=== PATIENT | female | born 1945 | race Caucasian/White ===

== ENCOUNTER → 2020-07-12 10:38 | Outpatient (POV) | payer SELFPAY | PROVIDERS: Visit Provider Audiologist | DX: Z00.00 Encounter for general adult medical examination without abnormal findings (principal) ==

== ENCOUNTER 2023-07-07 15:47 | Emergency (ER) | payer MEDICARE, SELFPAY ==
[2023-07-07] VITALS (7 sets, daily range): BP systolic 113–138; BP diastolic 62–79; PULSE 77–102; RESP 16–20; TEMP 36.4–36.9; O2SAT 93–100; BMI 25.4
--- NOTE | 2023-07-07 16:23 | XR_ITS ---
PROCEDURE INFORMATION: Exam: XR Right Foot Exam date and time: 07/07/2023 4:33 PM Age: 77 years old Clinical indication: Other: Redness/warmth; Additional info: Redness/warmth/cant bear weight, h/o embedded glass TECHNIQUE: Imaging protocol: Radiologic exam of the right foot. Views: 3 or more views. COMPARISON: No relevant prior studies available. FINDINGS: Bones/joints: No definitive osseous erosive lesions. No visible fracture or dislocation. Small calcaneal spur noted. Soft tissues: There is mild soft tissue swelling along the plantar soft tissues of the forefoot. No radiopaque foreign body. IMPRESSION: 1. No visible fracture or dislocation. No definitive osseous erosive lesions. 2. No radiopaque foreign body. Soft tissue swelling along the plantar soft tissues of the forefoot.
[2023-07-07] MEDS: ACETAMINOPHEN 500MG TAB 1000 MG PO (16:42)
[2023-07-07] MEDS: OXYCODONE 5MG IMMEDIATE RELEASE TABLET 5 MG PO (16:42)
[2023-07-07] MEDS: KETOROLAC 30MG/ML VIAL 15 MG IV (16:42)
--- NOTE | 2023-07-07 16:54 | ED_ITS ---
Discharge Plan Disposition Patient Disposition: Home, Self-Care Condition: Good Prescriptions Prescriptions: New naproxen 500 mg tablet 500 mg PO BID PRN (Reason: pain) Qty: 20 0RF sulfamethoxazole-trimethoprim [Bactrim DS] 800-160 mg tablet 1 tab PO BID 14 Days Qty: 28 0RF cephalexin 500 mg capsule 500 mg PO BID 14 Days Qty: 28 0RF Referrals Follow up/Referrals: Mann Irene [Primary Care Provider] - See instructions Elle Ortega DPM [Staff Physician] - See instructions Activity Restrictions/Add. Instructions Additional Instructions/Restrictions: You were evaluated in the emergency department today. At this time, we feel that your symptoms are likely related to cellulitis or infection of your right foot. It is very important that you take the antibiotics prescribed to you. Please follow-up very closely with your primary care provider. I recommend being seen over the next 3 to 5 days. If you continue to have foot pain, I am providing you with information for podiatry who can further assess you. Return to the emergency department for new or worsening symptoms. Clinical Impressions Clinical Impression: Cellulitis of foot, right Instructions Patient Instructions: DI for Cellulitis -- Adult, DI for Foot Pain Discharge ED Provider: Julianna Jarrell General Adult HPI General Chief complaint: Extremity Problem,Nontraumatic Stated complaint: Rt foot swollen Time Seen by Provider: 07/07/23 16:13 Mode of Arrival: Wheelchair Source of Information: Patient Limitations: No Limitations Description of Symptoms (Recalled from ER Triage Doc. by RN): pt c/o R foot pain, edema and errythema. pt states the pain is sharp and 10/10. pt reports she stepped on glass awhile ago. the skin is intact with palplable pedal pulses. pt needs a tetnus vaccine. History of Present Illness HPI narrative: This patient is a 77-year-old female with a history of osteoporosis, hype rtension, and hyperlipidemia presenting to the emergency department for evaluation with concern for atraumatic right foot pain. Patient reports that she woke up Thursday morning and noted that she could not bear weight on her right foot secondary to pain. She also noted redness and swelling. She went to an outpatient clinic yesterday and was told that everything was normal, so she was told she would be getting a walking boot but did not. She denies experiencing like this in the past. She denies any history of gout or septic arthritis in the past. She denies any fevers, chills, calf pain/swelling, or other concerns. No recent wounds, however she does note that several months to a year ago she had stepped on some pieces of glass and had to be get out of her foot. Related Data Previous Rx's Medication Instructions Recorded cephalexin 500 mg capsule 500 mg PO BID 14 days #28 caps 07/07/23 naproxen 500 mg tablet 500 mg PO BID PRN pain #20 tabs 07/07/23 sulfamethoxazole 800 1 tab PO BID 14 days #28 tabs 07/07/23 mg-trimethoprim 160 mg tablet (Bactrim DS) Allergies Allergy/AdvReac Type Severity Reaction Status Date / Time celecoxib [From Celebrex] Allergy Verified 07/07/23 16:21 [facility] Disclaimer: The information contained in this section may have been updated after the patient was seen, as this information can be updated by other users. Social History Smoking Status: Never smoker alcohol intake: never current occupational status: retired Travel in the last 8 weeks: None ROS Obtained: Yes All systems reviewed & no additional complaints except as documented Physical Exam General General appearance: alert and in no apparent distress Head Head exam: atraumatic and normocephalic Eye Eye exam: Present normal appearance, PERRL and EOMI ENT ENT exam: Present normal exam, normal oropharynx, mucous membranes moist and normal external ear exam Neck Neck exam: Present normal inspection, full ROM and trachea midline; Absent ten derness Chest Chest inspection: Present normal inspection and symmetric chest wall rise; Absent tenderness Respiratory Respiratory exam: Present normal lung sounds bilaterally; Absent respiratory distress, wheezes, stridor or accessory muscle use Cardiovascular Cardiovascular exam: Present regular rate and normal rhythm Abdominal Exam Abdominal exam: Present soft; Absent distention, tenderness or guarding Extremities Exam Extremities exam: Present tenderness, normal capillary refill, edema (Isolated pedal edema to the right foot) and other; Absent calf tenderness Expanded Lower Extremity Exam Right: Top foot image: 1. Redness and tenderness with surrounding edema. DP pulses 2+. Intact capillary refill and sensation distally. Neurovascular/Tendon exam: Present normal capillary refill and normal fine/light touch; Absent pulse deficit, sensory deficit, extremity cold to touch, pallor, foot drop or peroneal nerve deficit Back Exam Back exam: Present normal inspection and full ROM; Absent tenderness Neurological Exam Neurological exam: Present alert, oriented X3, CN II-XII intact and normal gait; Absent motor sensory deficit Psychiatric Psychiatric exam: Present normal affect and normal mood Skin Skin exam: Present warm and dry Medical Decision Making Medical Records Medical records reviewed: Yes I reviewed the patient's medical records. Osei Inquiry Pt receiving controlled substance: No Vital Signs: 07/07/23 16:13 07/07/23 16:07 07/07/23 16:30 Temperature 98.5 F Temperature Source Oral Pulse Rate 77 98 H Pulse Rate [Left] 102 H Respiratory Rate 16 Blood Pressure 113/65 138/79 Blood Pressure [Right Arm] 113/65 Blood Pressure Mean [Right Arm] 81 Blood Pressure Source [Right Arm] Automatic Cuff Blood Pressure Position [Right Arm] Sitting 02 Sat by Pulse Oximetry 100 93 L 96 Oxygen Delivery Method Room Air 07/07/23 17:59 07/07/23 17:28 07/07/23 17:30 Temperature 97.6 F Temperature Source Pulse Rate 77 81 84 Pulse Rate [Left] Respiratory Rate 20 Blood Pressure 122/74 114/64 121/74 Blood Pressure [Right Arm] Blood Pressure Mean [Right Arm] Blood Pressure Source [Right Arm] Blood Pressure Position [Right Arm] 02 Sat by Pulse Oximetry 97 96 Oxygen Delivery Method Room Air Room Air Room Air 07/07/23 17:41 Temperature Temperature Source Pulse Rate 95 H Pulse Rate [Left] Respiratory Rate Blood Pressure 115/62 Blood Pressure [Right Arm] Blood Pressure Mean [Right Arm] Blood Pressure Source [Right Arm] Blood Pressure Position [Right Arm] 02 Sat by Pulse Oximetry 97 Oxygen Delivery Method Room Air Lab Data Lab results reviewed: Yes I reviewed the patient's lab results. Lab Results 07/07/23 16:40: WBC 8.9, RBC 4.19 L, Hgb 12.0 L, Hct 37.0, MCV 88.3, MCH 28.7, MCHC 32.5, RDW 13.9, Plt Count 399, MPV 8.0, Neut % (Auto) 66.6, Lymph % (Auto) 24.1, [place] % (Auto) 7.4, Eos % (Auto) 1.5, Baso % (Auto) 0.4, Neut # (Auto) 5.9, Lymph # (Auto) 2.2, [place] # (Auto) 0.7, Eos # (Auto) 0.1, Baso # (Auto) 0.0, ESR 55 H, Sodium 136, Potassium 3.6, Chloride 100, Carbon Dioxide 32 H, Anion Gap 7.6, BUN 18 H, Creatinine 0.60, Estimated Creat Clear 45, Estimated GFR 97, Est GFR ( Amer) 118, Glucose 102 H, Uric Acid 5.0, Calcium 9.1, Total Bilirubin 0.8, AST 24, ALT 15, Alkaline Phosphatase 113, C-Reactive Protein 102.6 H, Total Protein 7.3, Albumin 3.7, Globulin 3.6 H, Albumin/Globulin Ratio 1.0 L 07/07/23 16:40 07/07/23 16:40 Orders (Tests/Meds): ED MEDICATIONS Discontinued Medications Generic Name Dose Route Start Last Admin Trade Name Freq PRN Reason Stop Dose Admin Acetaminophen 1,000 mg 07/07/23 16:28 07/07/23 16:42 Acetaminophen 500mg Tab PO 07/07/23 16:29 1,000 mg ONCE ONE Administration Ketorolac Tromethamine 15 mg 07/07/23 16:28 07/07/23 16:42 Ketorolac 30mg/Ml Vial IV 07/07/23 16:29 15 mg ONCE ONE Administration Oxycodone HCl 5 mg 07/07/23 16:29 07/07/23 16:42 Oxycodone 5mg Immediate Release Tablet PO 07/07/23 16:30 5 mg ONCE ONE Administration Sodium Chloride 10 ml 07/07/23 16:46 Sodium Chloride 0.9% 10ml Flush Syringe IV 08/06/23 16:45 NEEDED PRN Maintain IV Site ORDERS Category Date Time Status XR foot RT min 3V Stat Exams 07/07/23 16:23 Completed C-Reactive Protein Stat Lab 07/07/23 16:40 Completed Complete Blood Count Auto Diff Stat Lab 07/07/23 16:40 Completed Comprehensive Metabolic Panel Stat Lab 07/07/23 16:40 Completed Erythrocyte Sedimentation Rate Stat Lab 07/07/23 16:40 Completed Uric Acid Stat Lab 07/07/23 16:40 Completed Medical Decision Narrative: In summary, this patient is a 77-year-old female presenting to the Emergency Department for evaluation of right foot pain and swelling is atraumatic. Differential diagnoses considered include but are not limited to gouty arthritis, septic arthritis, cellulitis, venous insufficiency, arterial insufficiency, fracture. Ruling out the most morbid conditions drove assessment. On exam, the patient is well-appearing. She has isolated pedal edema to the right foot as well as redness, tenderness, and pain. The erythema is well- demarcated and isolated to her midfoot. It seems to be worse at the midfoot. She has good pulses and intact capillary refill and sensation. No calf pain/tenderness. Workup included CBC, CMP, ESR, CRP, uric acid, and x-rays of the right foot.. I independently interpreted x-ray prior to the radiologist read and noted soft tissue swelling without acute bony abnormality such as fracture. Please see their read for final interpretation. Labs were obtained that demonstrated elevated ESR and CRP. No significant leukocytosis. On reassessment, patient had good improvement after administration of maintenance above. Given that she has well-demarcated erythema without obvious involvement of a large joint as well as intact range of motion, I doubt septic arthritis. I feel she likely has a cellulitis. No obvious foreign body on the x-ray. No large open wounds on clinical exam. She is neurovascularly intact. At this time, I feel discharge with treatment for cellulitis is most appropriate. She is given prescriptions for Bactrim and Keflex, instructions for close a patient follow-up with her primary care provider, and I also gave her instructions for potential follow-up with podiatry if she continues to have issues. The redness on her foot was marked, and she was given a boot to use for comfort for walking. Patient expressed understanding and agreement to the strict return precautions. She was discharged in stable condition after all questions were answered. Critical Care Critical Care Time Critical Care Time: No
[2023-07-07 17:12] LABS: Alanine Aminotransferase 15 U/L (12-78); Albumin Level 3.7 g/dl (3.5-5.0); Alkaline Phosphatase 113 U/L (38-126); Anion Gap 7.6 mEq/L (5-15); Aspartate Amino Transferase 24 U/L (14-36); Bilirubin,Total 0.8 mg/dl (0.2-1.3); Blood Urea Nitrogen 18 mg/dl (7-17); Calcium 9.1 mg/dl (8.4-10.2); Carbon Dioxide 32 mmol/L (22.0-30.0); Chloride 100 mmol/L (98-107); Creatinine Clearance Estimated 45 mL/min (50-200); Estimated Glomerular Filt Rate 97 ml/min (>60); GFR (African American) 118 ML/MIN (>60); Globulin 3.6 g/dL (1.3-3.2); Glucose 102 mg/dl (74-100); Potassium 3.6 mmoL/L (3.5-5.1); Sodium 136 mmol/L (136-145); Total Protein,Serum 7.3 g/dl (6.3-8.2)
[2023-07-07 17:18] LABS: Basophils % 0.4 % (0.1-2.0); Eosinophils # 0.1 K/mm3 (0.0-0.4); Eosinophils % 1.5 % (0.1-12.0); Lymphocytes # 2.2 K/mm3 (0.7-4.5); Lymphocytes % 24.1 % (10-50); Mean Corpuscular HGB Conc 32.5 g/dL (31.8-35.4); Mean Corpuscular Hemoglobin 28.7 pg (27.0-31.2); Mean Corpuscular Volume 88.3 fl (81-99); Monocytes # 0.7 K/mm3 (0.1-1.0); Monocytes % 7.4 % (1.7-9.3); Neutrophils # 5.9 K/mm3 (1.8-7.8); Neutrophils % 66.6 % (37.0-80.0); Platelet Count 399 K/mm3 (142-424); Red Blood Count 4.19 M/mm3 (4.20-5.40); Red Cell Distribution Width 13.9 % (11.5-17.5); White Blood Count 8.9 K/mm3 (4.8-10.8)
[2023-07-07 17:33] LABS: C-Reactive Protein 102.6 mg/L (0-4)
--- NOTE | 2023-07-07 17:48 | PC.NURSE ---
Dr. Jarrell at bedside to review results
[2023-07-07 17:55] LABS: Erythrocyte Sedimentation Rate 55 mm/hr (0-30)
== END 2023-07-07 18:23 | disposition home or self-care (01) ==
PROVIDERS: Emergency Provider Emergency Medicine; PCP Pediatrics
DX: L03.115 Cellulitis of right lower limb (principal); R60.9 Edema, unspecified; M81.8 Other osteoporosis without current pathological fracture; I10 Essential (primary) hypertension; E78.5 Hyperlipidemia, unspecified
CPT/HCPCS: 73630; 80053; 84550; 85025; 85651; 86140; 96374; 99285

== ENCOUNTER 2024-03-25 12:38 | Inpatient (IN) | payer MEDICARE, SELFPAY ==
[2024-03-25] VITALS (8 sets, daily range): BP systolic 92–129; BP diastolic 56–84; PULSE 61–96; RESP 15–22; TEMP 36.4–36.9; O2SAT 92–98; BMI 25.4; BMI 28.3
--- NOTE | 2024-03-25 12:50 | ECG_ITS ---
APPROVED REPORT Exam: Resting ECG HR:96 bpm ECG Measurements Heart Rate 96 AXES WV 134 P 68 QRSd 105 QRS 79 QT 338 T 56 QTc 391 Conclusion SINUS RHYTHM POSSIBLE LEFT ATRIAL ENLARGEMENT [-0.1mV P-WAVE IN V1/V2] BORDERLINE ECG UNCONFIRMED REPORT Electronically signed by : SEN BRAVO, 03/28/2024 06:58:28
--- NOTE | 2024-03-25 13:21 | ED_ITS ---
Discharge Plan Disposition Chief Complaint: Altered Mental Status Discharge ED Provider: Edil Verduzco General Adult HPI General Chief complaint: Altered Mental Status Stated complaint: passing out, disoriented, not eating, dizzy Time Seen by Provider: 03/25/24 12:55 Mode of Arrival: Wheelchair Source of Information: Patient and Relative Limitations: No Limitations Description of Symptoms (Recalled from ER Triage Doc. by RN): Reports weakness, falling alot, passing out, diarrhea, and confusion for 2-3 days now. History of Present Illness HPI narrative: The patient presents with a chief complaint of dizziness and lightheadedness, which has led to an inability to eat or drink for the past 2-3 days. This resulted in episodes of passing out. The patient reports feeling too weak to walk to the kitchen, contributing to the lack of food and fluid intake. The patient describes feeling dizzy and lightheaded, which has been severe enough to cause falls in both the kitchen and bedroom. The patient does not recall hitting her head during these falls but does remember the incidents. There is also a report of shortness of breath and some pain with urination. The patient has not taken any of her usual medications for the past three days. There is no mention of specific medical conditions, but the patient typically takes a lot of medications daily. The patient is usually seen at [facility], and there is a history of normal kidney function with a creatinine level of 0.6. However, recent dehydration has led to a significant kidney injury, with a creatinine level now at 3 point something. Additionally, the patient experiences frequent spells of forgetfulness and was found disoriented and confused by a family member, who decided to bring the patient to the hospital. The patient lives alone, and there are concerns about her ability to manage independently. The patient's son reports that they were unable to contact the patient for some time, which prompted the hospital visit. The patient mentions having difficulty getting up, needing to pull herself up using the bedspread. The family member is considering moving the patient out of her home and into a place with more support. Please note that above description of symptoms, in this electronic medical record under categorization of recalled from ER triage doctor by RN are reflective of an initial nursing assessment, however, is not reflective of my full history and physical exam that was personally taken and clarified. Consequentially, this preceding description of symptoms, which may include the patient's categorized chief complaint in the EMR, do not reflect my personal clinical impression, and the ultimate description of history of present illness and patient stated complaints should be deferred to this section of the note. Unless stated otherwise or congruent with this section of the note, additional signs, symptoms, or incongruence should be interpreted as inaccurate with my clinical impression. Related Data Home Medications ?Medication ?Instructions ?Recorded ?Confirmed atorvastatin 20 mg tablet 20 mg PO DAILY 03/25/24 03/25/24 gabapentin 300 mg capsule 300 mg PO DAILY 03/25/24 03/25/24 lisinopril 20 mg tablet 20 mg PO DAILY 03/25/24 03/25/24 meloxicam 15 mg tablet 15 mg PO DAILY 03/25/24 03/25/24 nortriptyline 25 mg capsule 25 mg PO BID 03/25/24 03/25/24 Allergies Allergy/AdvReac Type Severity Reaction Status Date / Time No Known Allergies Allergy Verified 03/25/24 14:56 [facility] Disclaimer: The information contained in this section may have been updated after the patient was seen, as this information can be updated by other users. Social History (Updated 07/07/23 @ 19:48 by Julianna Jarrell DO) Smoking Status: Never smoker alcohol intake: never current occupational status: retired Travel in the last 8 weeks: None ROS Obtained: Yes other As per HPI Physical Exam General General appearance: alert and in no apparent distress Comment: Disoriented, dry mucous membranes Head Head exam: atraumatic and normocephalic Eye Eye exam: Present normal appearance Neck Neck exam: Present normal inspection Chest Chest inspection: Present normal inspection and symmetric chest wall rise Respiratory Respiratory exam: Present normal lung sounds bilaterally; Absent respiratory distress Cardiovascular Cardiovascular exam: Present regular rate and normal rhythm Abdominal Exam Abdominal exam: Present soft Neurological Exam Neurological exam: Present alert and oriented X3 Psychiatric Psychiatric exam: Present normal affect and normal mood Skin Skin exam: Present warm and dry Medical Decision Making Medical Records Medical records reviewed: Yes I reviewed the patient's medical records. Screening: Per USPSTF and CDC recommendations, given the prevalence of disease in our region, it is our hospital?s policy to screen for HIV and viral Hepatitis for all patients aged 18 and over and those with ongoing risk factors. Osei Inquiry Pt receiving controlled substance: No Vital Signs: 03/25/24 12:39 03/25/24 13:00 03/25/24 13:30 Temperature 97.6 F Temperature Source Oral Pulse Rate 84 84 Pulse Rate [Radial] 61 Respiratory Rate 18 21 22 Blood Pressure 92/56 L 110/66 Blood Pressure [Right Arm] 109/64 L Blood Pressure Mean [Right Arm] 79 Blood Pressure Source [Right Arm] Automatic Cuff Blood Pressure Position [Right Arm] Sitting 02 Sat by Pulse Oximetry 94 L 98 98 Oxygen Delivery Method Room Air Room Air Room Air 03/25/24 14:00 03/25/24 14:30 03/25/24 15:38 Temperature 98.2 F Temperature Source Pulse Rate 85 87 87 Pulse Rate [Radial] Respiratory Rate 21 21 15 Blood Pressure 100/65 L 104/59 L 105/59 L Blood Pressure [Right Arm] Blood Pressure Mean [Right Arm] Blood Pressure Source [Right Arm] Blood Pressure Position [Right Arm] 02 Sat by Pulse Oximetry 98 94 L Oxygen Delivery Method Room Air Room Air Room Air Lab Data Lab Results 03/25/24 12:48: WBC 19.7 H, RBC 4.58, Hgb 13.7, Hct 41.3, MCV 90.1, MCH 29.8, MCHC 33.1, RDW 15.0, Plt Count 158, MPV 9.1, Neut % (Auto) 88.7 H, Lymph % (Auto) 7.7 L, [place] % (Auto) 3.1, Eos % (Auto) 0.3, Baso % (Auto) 0.3, Neut # (Auto) 17.5 H, Lymph # (Auto) 1.5, [place] # (Auto) 0.6, Eos # (Auto) 0.1, Baso # (Auto) 0.1, Total Counted 100, Neutrophils % (Manual) 90 H, Lymphocytes % (Manual) 9 L, Monocytes % (Manual) 1 L, Platelet Estimate Normal, RBC Morphology Normal, Sodium 135 L, Potassium 4.2, Chloride 101, Carbon Dioxide 21 L, Anion Gap 17.2 H, BUN 84 H, Creatinine 3.30 H, Estimated Creat Clear 14, Estimated GFR 14 L*, Est GFR ( Amer) 16 L*, Glucose 96, Lactate 1.2, Calcium 8.6, Magnesium 2.2, Total Bilirubin 1.1, AST 72 H, ALT 57, Alkaline Phosphatase 203 H , Total Creatine Kinase 578 H*, Total Protein 7.0, Albumin 3.5, Globulin 3.5 H, Albumin/Globulin Ratio 1.0 L, Lipase 48, HIV 1&2 Antibody Rapid Nonreactive 03/25/24 13:59: VBG pH 7.38, VBG pCO2 37.4, VBG pO2 45.6 H, VBG HCO3 21.4 L, VBG Total CO2 22.6 L, VBG O2 Saturation 80.5 H, VBG Base Excess -3.8 L, VBG Lactic Acid 1.8 03/25/24 14:00: SARS-CoV-2 (PCR) Not detected, Influenza A Untype (PCR) Not detected, Influenza Type B (PCR) Not detected 03/25/24 14:07: Urine Color Yellow, Urine Appearance Cloudy, Urine pH 5.5, Ur Specific [place] >= 1.030, Urine Protein 2+ A, Urine Glucose (UA) Negative, Urine Ketones Negative, Urine Blood 2+ A, Urine Nitrate Positive A, Urine Bilirubin 2+ A, Urine Urobilinogen 0.2, Ur Leukocyte Esterase 2+ A, Urine RBC 3- 5, Urine WBC 20-50, Ur Squamous Epith Cells 5-10, Urine Bacteria 1+ 03/25/24 12:48 03/25/24 12:48 Orders (Tests/Meds): ED MEDICATIONS Generic Name Dose Route Start Last Admin Trade Name Freq PRN Reason Stop Dose Admin Acetaminophen 650 mg 03/25/24 15:05 Acetaminophen 325mg Tab PO 04/24/24 15:04 Q4HP PRN Fever or Mild Pain (1-3) Enoxaparin Sodium 30 mg 03/26/24 09:00 Enoxaparin 30mg/0.3ml Syringe SUBCUT 04/25/24 08:59 DAILY ZACARIAS Ceftriaxone Sodium 1 gm/ 50 mls @ 100 mls/hr 03/25/24 14:00 03/25/24 14:13 Sodium Chloride IV 04/04/24 13:59 100 mls/hr Q24H ZACARIAS Administration Sodium Chloride 1,000 mls @ 100 mls/hr 03/25/24 15:15 Sod Chlor 0.9% 1000ml Bag IV 04/24/24 15:14 .Q10H ZACARIAS Ondansetron HCl 4 mg 03/25/24 15:05 Ondansetron 4mg/2ml Vial IV 04/24/24 15:04 Q8HP PRN Nausea Discontinued Medications Generic Name Dose Route Start Last Admin Trade Name Freq PRN Reason Stop Dose Admin Lactated Ringer's 1,000 mls @ 999 mls/hr 03/25/24 13:52 03/25/24 14:35 Lactated Ringer's 1000 Ml Bag IV 03/25/24 14:52 999 mls/hr .Q1H1M ONE Administration ORDERS Category Date Time Status CT head/brain wo con Stat Cat Scan 03/25/24 13:53 Completed XR chest portable Stat Exams 03/25/24 13:52 Completed CK [Creatine Kinase] Stat Lab 03/25/24 12:48 Completed Complete Blood Count Auto Diff AMLAB Lab 03/26/24 06:00 Ordered Complete Blood Count Auto Diff AMLAB Lab 03/27/24 06:00 Ordered Complete Blood Count Auto Diff AMLAB Lab 03/28/24 06:00 Ordered Complete Blood Count Auto Diff AMLAB Lab 03/29/24 06:00 Ordered Complete Blood Count Auto Diff AMLAB Lab 03/30/24 06:00 Ordered Complete Blood Count Auto Diff Stat Lab 03/25/24 12:48 Completed Comprehensive Metabolic Panel AMLAB Lab 03/26/24 06:00 Ordered Comprehensive Metabolic Panel AMLAB Lab 03/27/24 06:00 Ordered Comprehensive Metabolic Panel AMLAB Lab 03/28/24 06:00 Ordered Comprehensive Metabolic Panel AMLAB Lab 03/29/24 06:00 Ordered Comprehensive Metabolic Panel AMLAB Lab 03/30/24 06:00 Ordered Comprehensive Metabolic Panel Stat Lab 03/25/24 12:48 Completed HIV (1&2) Antibody Rapid Stat Lab 03/25/24 12:48 Completed Hep C Ab with Reflex to RNA Stat Lab 03/25/24 12:48 Received Lactic Acid Stat Lab 03/25/24 12:48 Completed Lipase Stat Lab 03/25/24 12:48 Completed MAG [Magnesium] Stat Lab 03/25/24 12:48 Completed Magnesium AMLAB Lab 03/26/24 06:00 Ordered Magnesium AMLAB Lab 03/27/24 06:00 Ordered Magnesium AMLAB Lab 03/28/24 06:00 Ordered Magnesium AMLAB Lab 03/29/24 06:00 Ordered Magnesium AMLAB Lab 03/30/24 06:00 Ordered Rapid PCR Covid and Flu A/B Stat Lab 03/25/24 14:00 Completed Urinalysis and Microscopic Stat Lab 03/25/24 14:07 Completed Blood Culture Stat Micro 03/25/24 12:07 Received Urine Culture Stat Micro 03/25/24 14:07 Received VBG [Venous Blood Gas] Stat RT 03/25/24 13:59 Completed Medical Decision Narrative: Patient with history and exam per above presenting for evaluation of decreased p.o. intake, syncope, falls, altered mental status Diagnoses considered include delirium, dementia, intracranial hemorrhage, bacteremia, cystitis, acute kidney injury, electrolyte abnormality among others ED workup and treatment included: ED MEDICATIONS Generic Name Dose Route Start Last Admin Trade Name Freq PRN Reason Stop Dose Admin Acetaminophen 650 mg 03/25/24 15:05 Acetaminophen 325mg Tab PO 04/24/24 15:04 Q4HP PRN Fever or Mild Pain (1-3) Enoxaparin Sodium 30 mg 03/26/24 09:00 Enoxaparin 30mg/0.3ml Syringe SUBCUT 04/25/24 08:59 DAILY ZACARIAS Ceftriaxone Sodium 1 gm/ 50 mls @ 100 mls/hr 03/25/24 14:00 03/25/24 14:13 Sodium Chloride IV 04/04/24 13:59 100 mls/hr Q24H ZACARIAS Administration Sodium Chloride 1,000 mls @ 100 mls/hr 03/25/24 15:15 Sod Chlor 0.9% 1000ml Bag IV 04/24/24 15:14 .Q10H ZACARIAS Ondansetron HCl 4 mg 03/25/24 15:05 Ondansetron 4mg/2ml Vial IV 04/24/24 15:04 Q8HP PRN Nausea Discontinued Medications Generic Name Dose Route Start Last Admin Trade Name Freq PRN Reason Stop Dose Admin Lactated Ringer's 1,000 mls @ 999 mls/hr 03/25/24 13:52 03/25/24 14:35 Lactated Ringer's 1000 Ml Bag IV 03/25/24 14:52 999 mls/hr .Q1H1M ONE Administration ORDERS Category Date Time Status CT head/brain wo con Stat Cat Scan 03/25/24 13:53 Completed XR chest portable Stat Exams 03/25/24 13:52 Completed CK [Creatine Kinase] Stat Lab 03/25/24 12:48 Completed Complete Blood Count Auto Diff AMLAB Lab 03/26/24 06:00 Ordered Complete Blood Count Auto Diff AMLAB Lab 03/27/24 06:00 Ordered Complete Blood Count Auto Diff AMLAB Lab 03/28/24 06:00 Ordered Complete Blood Count Auto Diff AMLAB Lab 03/29/24 06:00 Ordered Complete Blood Count Auto Diff AMLAB Lab 03/30/24 06:00 Ordered Complete Blood Count Auto Diff Stat Lab 03/25/24 12:48 Completed Comprehensive Metabolic Panel AMLAB Lab 03/26/24 06:00 Ordered Comprehensive Metabolic Panel AMLAB Lab 03/27/24 06:00 Ordered Comprehensive Metabolic Panel AMLAB Lab 03/28/24 06:00 Ordered Comprehensive Metabolic Panel AMLAB Lab 03/29/24 06:00 Ordered Comprehensive Metabolic Panel AMLAB Lab 03/30/24 06:00 Ordered Comprehensive Metabolic Panel Stat Lab 03/25/24 12:48 Completed HIV (1&2) Antibody Rapid Stat Lab 03/25/24 12:48 Completed Hep C Ab with Reflex to RNA Stat Lab 03/25/24 12:48 Received Lactic Acid Stat Lab 03/25/24 12:48 Completed Lipase Stat Lab 03/25/24 12:48 Completed MAG [Magnesium] Stat Lab 03/25/24 12:48 Completed Magnesium AMLAB Lab 03/26/24 06:00 Ordered Magnesium AMLAB Lab 03/27/24 06:00 Ordered Magnesium AMLAB Lab 03/28/24 06:00 Ordered Magnesium AMLAB Lab 03/29/24 06:00 Ordered Magnesium AMLAB Lab 03/30/24 06:00 Ordered Rapid PCR Covid and Flu A/B Stat Lab 03/25/24 14:00 Completed Urinalysis and Microscopic Stat Lab 03/25/24 14:07 Completed Blood Culture Stat Micro 03/25/24 12:07 Received Urine Culture Stat Micro 03/25/24 14:07 Received VBG [Venous Blood Gas] Stat RT 03/25/24 13:59 Completed Acute kidney injury, leukocytosis, hematuria, pyuria, CK Labs were independently interpreted by me, significant for acute kidney injury, leukocytosis, hematuria, pyuria, bacteriuria Imaging was independently visualized and interpreted by me, significant for no acute findings Please refer to radiology report for full details. Patient will benefit from mission for further management of acute kidney injury and presumed cystitis precipitating delirium. She was accepted for admission by hospital medicine service. Critical Care Critical Care Time Critical Care Time: No
[2024-03-25 13:34] LABS: Albumin Level 3.5 g/dl (3.5-5.0); Chloride 101 mmol/L (98-107); Potassium 4.2 mmoL/L (3.5-5.1); Sodium 135 mmol/L (136-145)
[2024-03-25 13:37] LABS: Alanine Aminotransferase 57 U/L (12-78); Alkaline Phosphatase 203 U/L (38-126); Anion Gap 17.2 mEq/L (5-15); Aspartate Amino Transferase 72 U/L (14-36); Basophils # 0.1 K/mm3 (0-0.2); Basophils % 0.3 % (0.1-2.0); Bilirubin,Total 1.1 mg/dl (0.2-1.3); Calcium 8.6 mg/dl (8.4-10.2); Carbon Dioxide 21 mmol/L (22.0-30.0); Creatinine Clearance Estimated 14 mL/min (50-200); Eosinophils # 0.1 K/mm3 (0.0-0.4); Eosinophils % 0.3 % (0.1-12.0); Estimated Glomerular Filt Rate 14 ml/min (>60); GFR (African American) 16 ML/MIN (>60); Globulin 3.5 g/dL (1.3-3.2); Glucose 96 mg/dl (74-100); Hematocrit 41.3 % (37.0-47.0); Hemoglobin 13.7 g/dL (12.2-16.2); Lymphocytes # 1.5 K/mm3 (0.7-4.5); Lymphocytes % 7.7 % (10-50); Mean Corpuscular HGB Conc 33.1 g/dL (31.8-35.4); Mean Corpuscular Hemoglobin 29.8 pg (27.0-31.2); Mean Corpuscular Volume 90.1 fl (81-99); Mean Platelet Volume 9.1 fl (7.4-10.4); Monocytes # 0.6 K/mm3 (0.1-1.0); Monocytes % 3.1 % (1.7-9.3); Neutrophils # 17.5 K/mm3 (1.8-7.8); Neutrophils % 88.7 % (37.0-80.0); Platelet Count 158 K/mm3 (142-424); Red Blood Count 4.58 M/mm3 (4.20-5.40); White Blood Count 19.7 K/mm3 (4.8-10.8)
[2024-03-25 13:41] LABS: Blood Urea Nitrogen 84 mg/dl (7-17)
[2024-03-25 13:43] LABS: MANUAL DIFFERENTIAL MANUAL DIFFERENTIAL (MANUAL DIFF)
[2024-03-25 13:45] LABS: Lactic Acid 1.2 mmol/L (0.7-2.1)
--- NOTE | 2024-03-25 13:47 | PC.NURSE ---
Dr. Verduzco notified of BUN results.
--- NOTE | 2024-03-25 13:52 | XR_ITS ---
PROCEDURE INFORMATION: Exam: XR Chest Exam date and time: 03/25/2024 2:07 PM Age: 78 years old Clinical indication: Shortness of breath; Additional info: VÍCTOR JAVIER TECHNIQUE: Imaging protocol: Radiologic exam of the chest. Views: 1 view. COMPARISON: No relevant prior studies available. FINDINGS: Lungs: Senescent changes are present. Mild scarring is noted in the lower lobes. A calcified granuloma is present in the mid left lung. No focal consolidation is identified. Pleural spaces: No pleural effusion. No pneumothorax. Heart/Mediastinum: No significant cardiac silhouette enlargement. Vasculature: Atherosclerotic calcifications are noted within the aortic arch. Bones/joints: Bone mineralization is decreased, suggestive of osteopenia. Degenerative changes of the shoulders are noted. IMPRESSION: 1. No acute abnormality. 2. Chronic findings as discussed above.
--- NOTE | 2024-03-25 13:53 | CT_ITS ---
PROCEDURE INFORMATION: Exam: CT Head Without Contrast Exam date and time: 03/25/2024 2:12 PM Age: 78 years old Clinical indication: Altered mental status/memory loss; Additional info: AMS TECHNIQUE: Imaging protocol: Computed tomography of the head without contrast. Radiation optimization: All CT scans at this facility use at least one of these dose optimization techniques: automated exposure control; mA and/or kV adjustment per patient size (includes targeted exams where dose is matched to clinical indication); or iterative reconstruction. COMPARISON: No relevant prior studies available. FINDINGS: Brain: There is no acute intracranial hemorrhage, cerebral edema, or midline shift. Chronic microvascular ischemic changes are seen in the periventricular white matter. Age-related cerebral and cerebellar volume loss is present. Cerebral ventricles: Mild ex vacuo dilation of the lateral ventricles is noted. Paranasal sinuses: There is no acute sinusitis. Mastoid air cells: The mastoid air cells are clear. Orbital cavities: The included orbital structures are unremarkable. Bones: Unremarkable. No acute fracture. Soft tissues: Unremarkable. Vasculature: Atherosclerotic calcifications are seen involving the cavernous carotid arteries. IMPRESSION: 1. No acute intracranial abnormality. 2. Atrophy and chronic deep white matter ischemic changes.
--- NOTE | 2024-03-25 14:00 | PC.NURSE ---
Called [facility] in [facility] to see about getting her medical records faxed over to us.
[2024-03-25 14:08] LABS: Lactate Venous 1.8 mmol/L (0.4-2.0); VBG Base Excess -3.8 mmol/L (-2.4-2.3); VBG HCO3 21.4 mmol/L (23-30); VBG Oxygen Saturation 80.5 % (50-70); VBG PCO2 37.4 mmol/L (35-51); VBG PH 7.38 mmol/L (7.31-7.41); VBG PO2 45.6 mmol/L (28-40); VBG Total CO2 22.6 mmol/L (23-27)
[2024-03-25 14:09] LABS: Coronavirus 19, PCR Not Detected (NotDetected); Influenza A, PCR Not Detected (NotDetected); Influenza B, PCR Not Detected (NotDetected)
[2024-03-25 14:11] LABS: Microscopic, Urine URINE MICROSCOPIC (MICROSCOPIC)
[2024-03-25 14:12] LABS: Lipase 48 U/L (23-300)
[2024-03-25 14:13] LABS: Magnesium 2.2 mg/dl (1.6-2.3)
[2024-03-25] MEDS: CEFTRIAXONE 1 GM 1 GM in 0.9 % SODIUM CHLORIDE 50 ML IV (14:13)
[2024-03-25 14:28] LABS: Appearance,Urine CLOUDY (Clear); Blood, Urine 2+ (Negative); Color,Urine YELLOW (Yellow); Glucose,Urine (UA) Negative (Negative); Ketones,Urine Negative (Negative); Leukocyte Esterase,Urine 2+ (Negative); Nitrate,Urine POSITIVE (Negative); PH,Urine 5.5 (5.0-8.5); Protein,Urine 2+ (Negative); Specific Gravity, Urine >= 1.030 (1.005-1.030); Urobilinogen,Urine 0.2 EU/dl (0.2)
[2024-03-25 14:29] LABS: Lymphocytes % 9 % (10-50); Monocytes % 1 % (2-9); Neutrophils % 90 % (42-76); Platelet Estimate Normal; RBC Morphology Normal; Total Cells Counted 100
[2024-03-25] MEDS: LACTATED RINGERS 1000ML 1,000 ML 999 ML IV (14:35)
[2024-03-25 14:39] LABS: HIV (1&2) Antibody Rapid NONREACTIVE (NONREACTIVE)
[2024-03-25 14:42] LABS: Creatine Kinase 578 U/L (30-135)
[2024-03-25 14:46] LABS: Bilirubin,Urine 2+ (Negative)
[2024-03-25 14:47] LABS: Bacteria,Urine 1+ /lpf; WBC,Urine 20-50 #/hpf (0-3)
--- NOTE | 2024-03-25 15:22 | HMH.PHAINT1 ---
Pharmacy Intervention Comments: MEDICATION RECONCILIATION COMPLETED ON PATIENT USING EXTERNAL FILL HISTORY FROM PHARMACY AND PR[facility]ANTH REPORT. -JOHANNA CHAVIRA, THEAD
--- NOTE | 2024-03-25 15:26 | PC.NURSE ---
Report call to [facility]eta on Med Surg.
--- NOTE | 2024-03-25 15:53 | PC.NURSE ---
arrived to floor by stretcher from ED at 15:50
--- NOTE | 2024-03-25 18:21 | P.HP_ITS ---
History of Present Illness *Admission Date: 03/25/24 *Reason for visit:: UTI, weakness *History of present illness: Stella Hylton is a 78-year-old female with a medical history significant for hypertension who presents with 1 week onset of weakness, poor appetite, dizziness, intermittent confusion, dysuria. Denies fever/chills, chest pain, abdominal pain, constipation/diarrhea. She does endorse right back pain however. Workup in the ED significant for WBC 19.7, AGAP 17.2, creatinine 3.3, BUN 84, AST 72, ALP 203, CK5 78. UA strongly suggestive of UTI. CT head and CXR did not show acute findings. Case discussed with ED provider and decision was made to admit patient for UTI, weakness, KENNY. [facility] Disclaimer: The information contained in this section may have been updated after the patient was seen, as this information can be updated by other users. Medical History (Updated 03/25/24 @ 18:30 by Dylon Jackson MD) UTI (urinary tract infection) Surgical History (Updated 03/25/24 @ 16:32 by Gilda Norton, [facility]) History of left hip replacement H/O knee surgery Family History (Updated 03/25/24 @ 16:34 by Gilda Norton RN) Other Hypertension Social History (Updated 03/25/24 @ 16:37 by Gilda Norton RN) Smoking Status: Never smoker alcohol intake: never current occupational status: retired Travel in the last 8 weeks: None Other Medical History Have you received the Flu Vaccine for this season: Yes Have you received the Pneumonia Vaccine: Yes Meds Home Medications and Allergies Home Medications ?Medication ?Instructions ?Recorded ?Confirmed ?Type atorvastatin 20 mg tablet 20 mg PO DAILY 03/25/24 03/25/24 History gabapentin 300 mg capsule 300 mg PO DAILY 03/25/24 03/25/24 History lisinopril 20 mg tablet 20 mg PO DAILY 03/25/24 03/25/24 History meloxicam 15 mg tablet 15 mg PO DAILY 03/25/24 03/25/24 History nortriptyline 25 mg capsule 25 mg PO BID 03/25/24 03/25/24 History New Prescriptions to Start Prescriptions: Allergies Allergy/AdvReac Type Severity Reaction Status Date / Time No Known Allergies Allergy Verified 03/25/24 14:56 Exam Data for Last 24 hours Vital signs and Labs for Last 24 Hours: Temp Pulse Resp BP Pulse Ox O2 Del Method 98.2 F 88 16 129/84 96 Room Air 03/25/24 15:50 03/25/24 15:50 03/25/24 15:50 03/25/24 15:50 03/25/24 15:50 03/25/24 18:18 Laboratory Results - last 24 hr 03/25/24 12:48: WBC 19.7 H, RBC 4.58, Hgb 13.7, Hct 41.3, MCV 90.1, MCH 29.8, MCHC 33.1, RDW 15.0, Plt Count 158, MPV 9.1, Neut % (Auto) 88.7 H, Lymph % (Auto) 7.7 L, [place] % (Auto) 3.1, Eos % (Auto) 0.3, Baso % (Auto) 0.3, Neut # (Auto) 17.5 H, Lymph # (Auto) 1.5, [place] # (Auto) 0.6, Eos # (Auto) 0.1, Baso # (Auto) 0.1, Total Counted 100, Neutrophils % (Manual) 90 H, Lymphocytes % (Manual) 9 L, Monocytes % (Manual) 1 L, Platelet Estimate Normal, RBC Morphology Normal, Sodium 135 L, Potassium 4.2, Chloride 101, Carbon Dioxide 21 L, Anion Gap 17.2 H, BUN 84 H, Creatinine 3.30 H, Estimated Creat Clear 14, Estimated GFR 14 L*, Est GFR ( Amer) 16 L*, Glucose 96, Lactate 1.2, Calcium 8.6, Magnesium 2.2, Total Bilirubin 1.1, AST 72 H, ALT 57, Alkaline Phosphatase 203 H , Total Creatine Kinase 578 H*, Total Protein 7.0, Albumin 3.5, Globulin 3.5 H, Albumin/Globulin Ratio 1.0 L, Lipase 48, HIV 1&2 Antibody Rapid Nonreactive 03/25/24 13:59: VBG pH 7.38, VBG pCO2 37.4, VBG pO2 45.6 H, VBG HCO3 21.4 L, VBG Total CO2 22.6 L, VBG O2 Saturation 80.5 H, VBG Base Excess -3.8 L, VBG Lactic Acid 1.8 03/25/24 14:00: SARS-CoV-2 (PCR) Not detected, Influenza A Untype (PCR) Not detected, Influenza Type B (PCR) Not detected 03/25/24 14:07: Urine Color Yellow, Urine Appearance Cloudy, Urine pH 5.5, Ur Specific [place] >= 1.030, Urine Protein 2+ A, Urine Glucose (UA) Negative, Urine Ketones Negative, Urine Blood 2+ A, Urine Nitrate Positive A, Urine Bilirubin 2+ A, Urine Urobilinogen 0.2, Ur Leukocyte Esterase 2+ A, Urine RBC 3- 5, Urine WBC 20-50, Ur Squamous Epith Cells 5-10, Urine Bacteria 1+ I & O for Last 24 hours: Intake & Output 03/22/24 03/23/24 03/24/24 03/25/24 23:59 23:59 23:59 23:59 Weight 65.969 kg Constitutional Constitutional: no acute distress *Routine HEENT Exam Head: Present normocephalic Eye: Present EOMI and PERRL ENT: Present mucous membranes moist *Routine Neck Exam Neck: Present supple; Absent lymphadenopathy *Routine Respiratory Exam Respiratory: Present CTA bilaterally *Routine Cardiovascular Exam Cardiovascular: Present RRR *Routine Abdominal Exam Abdominal: Present soft and normoactive bowel sounds; Absent tenderness Comments: Mild right-sided CVA tenderness. *Routine Rectal Exam Rectal:: deferred *Routine Genitalia Exam Genitalia:: deferred *Routine Extremities Exam Extremities: Absent cyanosis, clubbing or edema *Routine Skin Exam Skin: Present warm; Absent rash *Routine Neurological Exam Neurological: Present alert and oriented X3 Assessment and Plan *Assessment and plan (1) KENNY (acute kidney injury): Status: Acute Category: Medical Code(s): N17.9 - Acute kidney failure, unspecified (2) Pyelonephritis: Status: Acute Category: Medical Code(s): N12 - Tubulo-interstitial nephritis, not specified as acute or chronic Plan Stella Hylton is a 78-year-old female with a medical history significant for hypertension who presents with 1 week onset of weakness, poor appetite, dizziness, intermittent confusion, dysuria. Denies fever/chills, chest pain, abdominal pain, constipation/diarrhea. She does endorse right back pain however. Workup in the ED significant for WBC 19.7, AGAP 17.2, creatinine 3.3, BUN 84, AST 72, ALP 203, CK5 78. UA strongly suggestive of UTI. CT head and CXR did not show acute findings. Case discussed with ED provider and decision was made to admit patient for UTI, weakness, KENNY. #Suspected right pyelonephritis #UTI #Weakness ? UA strongly suggestive of UTI with urine leukocytes greater than 20, LE 2+, nitrite positive. Initial WBC 19.7. ? No signs of sepsis at this time. ? Ceftriaxone day 05/15. ? Follow-up urine, blood cultures. ? PT consulted, pending recommendations. #KENNY ? Initial creatinine 3.3, baseline around 0.6. ? IV normal saline at 100 mL/h. ? Follow-up renal function in the morning. Electrolytes stable at this time. #Hypertension ? Hold home lisinopril given KENNY. Full code Lovenox 30 mg
[2024-03-25] MEDS: AMITRIPTYLINE 25MG TABLET 25 MG PO (20:45)
[2024-03-26] VITALS: BP 116/52; PULSE 116; RESP 16; TEMP 37.4; O2SAT 91
[2024-03-26 04:00] VITALS: BP 125/78; PULSE 96; RESP 16; TEMP 36.7; O2SAT 93; BMI 29.1
[2024-03-26] MEDS: 0.9 % SODIUM CHLORIDE 1000ML 1,000 ML 100 ML IV (04:41)
[2024-03-26 06:12] LABS: Basophils % 0.2 % (0.1-2.0); Eosinophils # 0.1 K/mm3 (0.0-0.4); Eosinophils % 0.4 % (0.1-12.0); Lymphocytes # 1.6 K/mm3 (0.7-4.5); Lymphocytes % 10.3 % (10-50); Mean Corpuscular HGB Conc 33.2 g/dL (31.8-35.4); Mean Corpuscular Hemoglobin 30.1 pg (27.0-31.2); Mean Corpuscular Volume 90.7 fl (81-99); Mean Platelet Volume 8.5 fl (7.4-10.4); Monocytes # 0.9 K/mm3 (0.1-1.0); Neutrophils # 12.7 K/mm3 (1.8-7.8); Neutrophils % 83.1 % (37.0-80.0); Platelet Count 135 K/mm3 (142-424); Red Blood Count 4.09 M/mm3 (4.20-5.40); Red Cell Distribution Width 15.1 % (11.5-17.5); White Blood Count 15.2 K/mm3 (4.8-10.8)
[2024-03-26 06:18] LABS: Alanine Aminotransferase 54 U/L (12-78); Alkaline Phosphatase 258 U/L (38-126); Anion Gap 13.7 mEq/L (5-15); Aspartate Amino Transferase 56 U/L (14-36); Bilirubin,Total 1.1 mg/dl (0.2-1.3); Blood Urea Nitrogen 69 mg/dl (7-17); Calcium 8.1 mg/dl (8.4-10.2); Carbon Dioxide 21 mmol/L (22.0-30.0); Chloride 107 mmol/L (98-107); Creatinine Clearance Estimated 25 mL/min (50-200); Estimated Glomerular Filt Rate 24 ml/min (>60); GFR (African American) 29 ML/MIN (>60); Globulin 3.1 g/dL (1.3-3.2); Glucose 71 mg/dl (74-100); Hemoglobin 12.3 g/dL (12.2-16.2); Magnesium 2.3 mg/dl (1.6-2.3); Potassium 3.7 mmoL/L (3.5-5.1); Sodium 138 mmol/L (136-145); Total Protein,Serum 6.1 g/dl (6.3-8.2)
[2024-03-26 06:20] LABS: MANUAL DIFFERENTIAL MANUAL DIFFERENTIAL (MANUAL DIFF)
[2024-03-26 06:41] LABS: Lymphocytes % 5 % (10-50); Monocytes % 7 % (2-9); Neutrophils % 88 % (42-76); Platelet Estimate Slight Decrease; RBC Morphology Normal; Total Cells Counted 100
[2024-03-26 08:00] VITALS: BP 148/72; PULSE 97; RESP 18; TEMP 36.5; O2SAT 96
[2024-03-26 08:00] LABS: Creatine Kinase 180 U/L (30-135)
[2024-03-26] MEDS: ENOXAPARIN 30MG/0.3ML SYRINGE 30 MG SUBCUT (08:19)
[2024-03-26 09:14] LABS: HCV Ab Non Reactive (Non Reactive)
[2024-03-26 12:00] VITALS: BP 173/88; PULSE 107; RESP 16; TEMP 36.9; O2SAT 94
--- NOTE | 2024-03-26 14:57 | P.PN_ITS ---
Subjective *Date: 03/26/24 *Time: 15:05 Interval history: Patient doing okay, somewhat weak and somnolent today did not sleep well last night. Exam Data for Last 24 hours Vital signs and Labs for Last 24 Hours: Temp Pulse Resp BP Pulse Ox O2 Del Method 98.5 F 107 H 16 173/88 H 94 L Room Air 03/26/24 12:00 03/26/24 12:00 03/26/24 12:00 03/26/24 12:00 03/26/24 12:00 03/26/24 13:00 Laboratory Results - last 24 hr 03/25/24 12:48: Hepatitis C Antibody Non reactive 03/25/24 14:00: SARS-CoV-2 (PCR) Not detected, Influenza A Untype (PCR) Not detected, Influenza Type B (PCR) Not detected 03/26/24 05:57: Total Creatine Kinase 180 H D 03/26/24 05:59: WBC 15.2 H, RBC 4.09 L, Hgb 12.3 D, Hct 37.0, MCV 90.7, MCH 30.1, MCHC 33.2, RDW 15.1, Plt Count 135 L, MPV 8.5, Neut % (Auto) 83.1 H, Lymph % (Auto) 10.3, [place] % (Auto) 6.0, Eos % (Auto) 0.4, Baso % (Auto) 0.2, Neut # (Auto) 12.7 H, Lymph # (Auto) 1.6, [place] # (Auto) 0.9, Eos # (Auto) 0.1, Baso # (Auto) 0.0, Total Counted 100, Neutrophils % (Manual) 88 H, Lymphocytes % (Manual) 5 L, Monocytes % (Manual) 7, Platelet Estimate Slight decrease, RBC Morphology Normal, Sodium 138, Potassium 3.7, Chloride 107, Carbon Dioxide 21 L, Anion Gap 13.7, BUN 69 H, Creatinine 2.00 H D, Estimated Creat Clear 25, Estimated GFR 24 L, Est GFR ( Amer) 29 L D, Glucose 71 L D, Calcium 8.1 L , Magnesium 2.3, Total Bilirubin 1.1, AST 56 H, ALT 54, Alkaline Phosphatase 258 H, Total Protein 6.1 L, Albumin 3.0 L D, Globulin 3.1, Albumin/Globulin Ratio 1.0 L I & O for Last 24 hours: Intake & Output 03/23/24 03/24/24 03/25/24 03/26/24 23:59 23:59 23:59 23:59 Intake Total 240 / 810 1030 / 1030 Output Total 0 / 0 Balance 240 / 810 1030 / 1030 Weight 65.969 kg 67.245 kg Microbiology Reports for the Last 24 Hours: Microbiology 03/25/24 14:07 Urine,Clean Catch Urine Culture - Preliminary Gram Negative Rods 03/25/24 12:07 Blood Blood Culture - Preliminary 03/25/24 12:48 Blood Blood Culture - Preliminary Constitutional Constitutional: no acute distress *Routine HEENT Exam Head: Present normocephalic Eye: Present EOMI and PERRL ENT: Present mucous membranes moist *Routine Neck Exam Neck: Present supple; Absent lymphadenopathy *Routine Respiratory Exam Respiratory: Present CTA bilaterally *Routine Cardiovascular Exam Cardiovascular: Present RRR *Routine Abdominal Exam Abdominal: Present soft and normoactive bowel sounds; Absent tenderness *Routine Extremities Exam Extremities: Absent cyanosis, clubbing or edema *Routine Skin Exam Skin: Present warm; Absent rash *Routine Neurological Exam Neurological: Present alert and oriented X3 Assessment and Plan *Assessment and plan (1) KENNY (acute kidney injury): Status: Acute Category: Medical Code(s): N17.9 - Acute kidney failure, unspecified (2) Pyelonephritis: Status: Acute Category: Medical Code(s): N12 - Tubulo-interstitial nephritis, not specified as acute or chronic Plan Stella Hylton is a 78-year-old female with a medical history significant for hypertension who presents with 1 week onset of weakness, poor appetite, dizziness, intermittent confusion, dysuria. Denies fever/chills, chest pain, abdominal pain, constipation/diarrhea. She does endorse right back pain however. Workup in the ED significant for WBC 19.7, AGAP 17.2, creatinine 3.3, BUN 84, AST 72, ALP 203, CK5 78. UA strongly suggestive of UTI. CT head and CXR did not show acute findings. Case discussed with ED provider and decision was made to admit patient for UTI, weakness, KENNY. #Suspected right pyelonephritis #UTI #Weakness #Sepsis #E. coli bacteremia ? UA strongly suggestive of UTI with urine leukocytes greater than 20, LE 2+, nitrite positive. Initial WBC 19.7. Initially had no signs of sepsis. ? However, today patient patient's heart rate elevated up to 117. Will follow- up with EKG. WBC ? Started Zosyn today given new sepsis, discontinued ceftriaxone. Ordered additional 1 L bolus for total of 2 L. ? Continue NS at 100 mL/h. ? Urine culture positive for gram-negative rods. Pending speciation and sensitivities ? Blood culture positive for E. coli in both bottles. Follow-up repeat blood c ultures. ? PT consulted, did not recommend further rehab. #KENNY ? Initial creatinine 3.3, baseline around 0.6. ? Creatinine improved to 2.0 today. CK improved to 180. ? IV normal saline at 100 mL/h. ? Follow-up renal function in the morning. Electrolytes stable at this time. #Hypertension ? Hold home lisinopril given KENNY. Full code Lovenox 30 mg
--- NOTE | 2024-03-26 14:59 | ECG_ITS ---
APPROVED REPORT Exam: Resting ECG HR:135 bpm ECG Measurements Heart Rate 135 AXES [place] 145 P 62 QRSd 99 QRS 88 QT 313 T 48 QTc 392 Conclusion SINUS TACHYCARDIA NONSPECIFIC ST & T-WAVE ABNORMALITY ABNORMAL RHYTHM ECG UNCONFIRMED REPORT Electronically signed by : Manish Baker MD 03/27/2024 21:20:06
[2024-03-26] MEDS: PIPERACILLIN/TAZO 3.375 GM in 0.9 % SODIUM CHLORIDE 50 ML IV ×2 (15:12→22:34)
[2024-03-26] MEDS: 0.9 % SODIUM CHLORIDE 1000ML 1,000 ML 999 ML IV (15:14)
[2024-03-26] MEDS: ACETAMINOPHEN 325MG TAB 650 MG PO (15:36)
[2024-03-26 16:00] VITALS: BP 111/55; PULSE 107; RESP 15; TEMP 36.7; O2SAT 93
--- NOTE | 2024-03-26 16:37 | XR_ITS ---
PROCEDURE INFORMATION: Exam: XR Chest Exam date and time: 03/26/2024 4:38 PM Age: 78 years old Clinical indication: Shortness of breath; Additional info: New o2 requirement TECHNIQUE: Imaging protocol: Radiologic exam of the chest. Views: 1 view. COMPARISON: CR XR CHEST PORTABLE 03/25/2024 2:07 PM FINDINGS: Lungs: Minor atelectasis at the lung bases. No acute airspace consolidation. Small left lung calcified granuloma. Pleural spaces: Unremarkable. No pleural effusion. No pneumothorax. Heart/Mediastinum: Unremarkable. No cardiomegaly. Bones/joints: Unremarkable. IMPRESSION: Minor bibasilar atelectasis.
[2024-03-26 20:00] VITALS: BP 105/70; PULSE 92; RESP 16; TEMP 36.9; O2SAT 93
[2024-03-26] MEDS: AMITRIPTYLINE 25MG TABLET 25 MG PO (20:27)
[2024-03-26] MEDS: ATORVASTATIN 20MG TABLET 20 MG PO (20:27)
[2024-03-26] MEDS: IPRATROPIUM/ALBUTEROL 3 ML NEB IH (20:54)
[2024-03-27] VITALS: BP 102/56; PULSE 99; RESP 16; TEMP 36.8; O2SAT 92
[2024-03-27 04:00] VITALS: BP 131/85; PULSE 107; RESP 16; TEMP 36.7; O2SAT 95; BMI 29.5
[2024-03-27 07:05] LABS: Basophils % 0.3 % (0.1-2.0); Eosinophils # 0.2 K/mm3 (0.0-0.4); Eosinophils % 1.4 % (0.1-12.0); Hematocrit 38.9 % (37.0-47.0); Hemoglobin 12.7 g/dL (12.2-16.2); Lymphocytes # 2.2 K/mm3 (0.7-4.5); Lymphocytes % 15.6 % (10-50); Mean Corpuscular HGB Conc 32.8 g/dL (31.8-35.4); Mean Corpuscular Hemoglobin 29.8 pg (27.0-31.2); Mean Corpuscular Volume 90.9 fl (81-99); Mean Platelet Volume 9.4 fl (7.4-10.4); Monocytes # 0.9 K/mm3 (0.1-1.0); Monocytes % 6.8 % (1.7-9.3); Neutrophils # 10.6 K/mm3 (1.8-7.8); Neutrophils % 75.9 % (37.0-80.0); Platelet Count 124 K/mm3 (142-424); Red Blood Count 4.28 M/mm3 (4.20-5.40); Red Cell Distribution Width 15.5 % (11.5-17.5); White Blood Count 13.9 K/mm3 (4.8-10.8)
[2024-03-27 07:09] LABS: Chloride 105 mmol/L (98-107)
[2024-03-27 07:10] LABS: Potassium 3.7 mmoL/L (3.5-5.1); Sodium 139 mmol/L (136-145)
[2024-03-27 07:12] LABS: Alanine Aminotransferase 56 U/L (12-78); Albumin/Globulin Ratio 0.9 (1.1-1.8); Anion Gap 11.7 mEq/L (5-15); Aspartate Amino Transferase 49 U/L (14-36); Blood Urea Nitrogen 46 mg/dl (7-17); Carbon Dioxide 26 mmol/L (22.0-30.0); Creatinine Clearance Estimated 43 mL/min (50-200); Estimated Glomerular Filt Rate 44 ml/min (>60); GFR (African American) 53 ML/MIN (>60); Globulin 3.4 g/dL (1.3-3.2); Total Protein,Serum 6.4 g/dl (6.3-8.2)
[2024-03-27 07:13] LABS: Alkaline Phosphatase 292 U/L (38-126); Bilirubin,Total 1.2 mg/dl (0.2-1.3); Calcium 8.3 mg/dl (8.4-10.2); Glucose 101 mg/dl (74-100); Magnesium 2.2 mg/dl (1.6-2.3)
[2024-03-27 08:00] VITALS: BP 157/84; PULSE 62; RESP 18; TEMP 36.6; O2SAT 94
--- NOTE | 2024-03-27 09:37 | HMH.PTEV ---
Physical Therapy Evaluation Rehab PT IP Evaluation Start: 03/25/24 18:27 Freq: ONCE Status: Active Protocol: Document 03/26/24 09:50 MARLENE (Rec: 03/27/24 09:36 MARLENE [id number]) Subjective/History History History Per H&P: Stella Hylton is a 78-year-old female with a medical history significant for hypertension who presents with 1 week onset of weakness, poor appetite, dizziness, intermittent confusion, dysuria. Denies fever/chills, chest pain, abdominal pain, constipation/diarrhea. She does endorse right back pain however. Workup in the ED significant for WBC 19.7, AGAP 17.2, creatinine 3.3, BUN 84, AST 72, ALP 203, CK5 78. UA strongly suggestive of UTI. CT head and CXR did not show acute findings. Case discussed with ED provider and decision was made to admit patient for UTI, weakness, KENNY . Subjective Subjective Pt's family in room during eval. Pt reports she was IND without AD use prior to admission. Not driving anymore . Has a [id number] who can check on her daily. Lives in a 2-story home with 3-4 DAMON . Owns a RW and cane but does not use an AD usually. Reports multiple falls d/t passing out. New diagnosis of cancer in past 12 No months? Rehab PT IP Eval Objective Appearance Patient Behavior Appropriate,Cooperative Patient Orientation Person Difficulty following instructions none Speech Pattern Clear Ambulation Patient Able to Ambulate Yes Ambulation Observation IP General Gait Pattern Observation No Deviations/Normal Ambulation Distance (feet) 28 Ambulation Assistive Device None Ambulation Ability Independent Balance Ability to Arise Able, uses arms to help Sitting Balance Steady, safe Standing Balance Steady, wide stance Dynamic Sitting Balance Ability Good Dynamic Standing Balance Ability Good Transfers Bed Transfer Ability Independent Sit to Stand Bed Transfer Ability Independent Rehab PT IP prob,goals,plan Problems Date of Evaluation: 03/27/24 Rehab Potential Rehab Potential Innapropriate for Skilled Therapy Discharge Plan PT Discharge Plan Pt safe to d/c home when deemed medically necessary d/t current level of mobility, home set-up, and family support. Pt not appropriate for skilled acute care PT at this time d/t pt?s mobility being at baseline/IND. Eval Complexity Eval Charge Codes 56807 - Moderate Complexity PHYSICIAN CERTIFICATION: I certify the specified therapy services for [facility] are required, authorized, and reviewed every 30 days.
[2024-03-27] MEDS: ENOXAPARIN 30MG/0.3ML SYRINGE 30 MG SUBCUT (09:59)
[2024-03-27] MEDS: PIPERACILLIN/TAZO 3.375 GM in 0.9 % SODIUM CHLORIDE 50 ML IV (09:59)
[2024-03-27 11:16] VITALS: BP 147/75; PULSE 104; RESP 18; TEMP 36.8; O2SAT 97
--- NOTE | 2024-03-27 14:30 | P.DS_ITS ---
General Admission date:: 03/25/24 HPI HPI HPI: Stella Hylton is a 78-year-old female with a medical history significant for hypertension who presents with 1 week onset of weakness, poor appetite, dizziness, intermittent confusion, dysuria. Denies fever/chills, chest pain, abdominal pain, constipation/diarrhea. She does endorse right back pain however. Workup in the ED significant for WBC 19.7, AGAP 17.2, creatinine 3.3, BUN 84, AST 72, ALP 203, CK5 78. UA strongly suggestive of UTI. CT head and CXR did not show acute findings. Case discussed with ED provider and decision was made to admit patient for UTI, weakness, KENNY. Hospital Course Hospital Course Hospital Course: Stella Hylton is a 78-year-old female with a medical history significant for hypertension who presents with 1 week onset of weakness, poor appetite, dizziness, intermittent confusion, dysuria. Denies fever/chills, chest pain, abdominal pain, constipation/diarrhea. She does endorse right back pain however. Workup in the ED significant for WBC 19.7, AGAP 17.2, creatinine 3.3, BUN 84, AST 72, ALP 203, CK5 78. UA strongly suggestive of UTI. CT head and CXR did not show acute findings. Case discussed with ED provider and decision was made to admit patient for UTI, weakness, KENNY. #Right pyelonephritis #UTI #Weakness #Sepsis #E. coli bacteremia ? UA strongly suggestive of UTI with urine leukocytes greater than 20, LE 2+, nitrite positive. Initial WBC 19.7. ? Blood and urine cultures growing E Coli sensitive to ceftriaxone. - WBC improved to 13.9. Repeat blood cultures are negative. ? PT consulted, did not recommend further rehab. - Clinically improved with IV antibiotics including ceftriaxone and Zosyn for 3 days. - Tolerating PO intake without nausea/vomiting, ambulating independently without issues. - Discharged with cefdinir for 10 more days. Will follow-up with PCP within 1 week. Per son, patient will however move in with him in [place] within the next weeks. #KENNY ? Initial creatinine 3.3, baseline around 0.6. ? Creatinine improved to 2.0 -> 1.3 today. CK improved to 180. #Hypertension - Will hold home lisinopril given KENNY. Started amlodipine 5mg. - Will need to follow-up with PCP for further instructions. Exam Data for Last 24 hours Vital signs and Labs for Last 24 Hours: Temp Pulse Resp BP Pulse Ox O2 Del Method 98.3 F 104 H 18 147/75 H 97 Room Air 03/27/24 11:16 03/27/24 11:16 03/27/24 11:16 03/27/24 11:16 03/27/24 11:16 03/27/24 13:00 Laboratory Results - last 24 hr 03/27/24 06:15: WBC 13.9 H, RBC 4.28, Hgb 12.7, Hct 38.9, MCV 90.9, MCH 29.8, MCHC 32.8, RDW 15.5, Plt Count 124 L, MPV 9.4, Neut % (Auto) 75.9, Lymph % (Auto) 15.6, [place] % (Auto) 6.8, Eos % (Auto) 1.4, Baso % (Auto) 0.3, Neut # (Auto) 10.6 H, Lymph # (Auto) 2.2, [place] # (Auto) 0.9, Eos # (Auto) 0.2, Baso # (Auto) 0.0, Sodium 139, Potassium 3.7, Chloride 105, Carbon Dioxide 26, Anion Gap 11.7, BUN 46 H D, Creatinine 1.20 H D, Estimated Creat Clear 43, Estimated GFR 44 L, Est GFR ( Amer) 53 L D, Glucose 101 H, Calcium 8.3 L, Magnesium 2.2, Total Bilirubin 1.2, AST 49 H, ALT 56, Alkaline Phosphatase 292 H, Total Protein 6.4, Albumin 3.0 L, Globulin 3.4 H, Albumin/Globulin Ratio 0.9 L I & O for Last 24 hours: Intake & Output 03/24/24 03/25/24 03/26/24 03/27/24 23:59 23:59 23:59 23:59 Intake Total 240 / 810 1510 / 1560 410 / 410 Output Total 0 / 0 0 / 0 Balance 240 / 810 1510 / 1560 410 / 410 Weight 65.969 kg 67.245 kg 68.311 kg Microbiology Reports for the Last 24 Hours: Microbiology 03/25/24 12:07 Blood Blood Culture - Preliminary 03/25/24 12:48 Blood Blood Culture - Preliminary 03/25/24 14:07 Urine,Clean Catch Urine Culture - Final Escherichia coli Constitutional Constitutional: no acute distress *Routine HEENT Exam Head: Present normocephalic Eye: Present EOMI and PERRL ENT: Present mucous membranes moist *Routine Neck Exam Neck: Present supple; Absent lymphadenopathy *Routine Respiratory Exam Respiratory: Present CTA bilaterally *Routine Cardiovascular Exam Cardiovascular: Present RRR *Routine Abdominal Exam Abdominal: Present soft and normoactive bowel sounds; Absent tenderness *Routine Extremities Exam Extremities: Absent cyanosis, clubbing or edema *Routine Skin Exam Skin: Present warm; Absent rash *Routine Neurological Exam Neurological: Present alert and oriented X3 Results Data Completed and Pending Labs on day of discharge: Labs from last 24 hours 03/27/24 06:15 WBC 13.9 H RBC 4.28 Hgb 12.7 Hct 38.9 MCV 90.9 MCH 29.8 MCHC 32.8 RDW 15.5 Plt Count 124 L MPV 9.4 Neut % (Auto) 75.9 Lymph % (Auto) 15.6 [place] % (Auto) 6.8 Eos % (Auto) 1.4 Baso % (Auto) 0.3 Neut # (Auto) 10.6 H Lymph # (Auto) 2.2 [place] # (Auto) 0.9 Eos # (Auto) 0.2 Baso # (Auto) 0.0 Sodium 139 Potassium 3.7 Chloride 105 Carbon Dioxide 26 Anion Gap 11.7 BUN 46 H D Creatinine 1.20 H D Estimated Creat Clear 43 Estimated GFR 44 L Est GFR ( Amer) 53 L D Glucose 101 H Calcium 8.3 L Magnesium 2.2 Total Bilirubin 1.2 AST 49 H ALT 56 Alkaline Phosphatase 292 H Total Protein 6.4 Albumin 3.0 L Globulin 3.4 H Albumin/Globulin Ratio 0.9 L Preliminary micro results at discharge 03/25/24 12:07 Blood Culture - Preliminary Blood 03/25/24 12:48 Blood Culture - Preliminary Blood DS: Diagnosis Discharge Diagnosis (1) KENNY (acute kidney injury): Status: Acute Code(s): N17.9 - Acute kidney failure, unspecified (2) Pyelonephritis: Status: Acute Code(s): N12 - Tubulo-interstitial nephritis, not specified as acute or chronic (3) Bacteremia: Status: Acute Code(s): R78.81 - Bacteremia Meds Home Medications and Allergies Home Medications ?Medication ?Instructions ?Recorded ?Confirmed ?Type atorvastatin 20 mg tablet 20 mg PO DAILY 03/25/24 03/25/24 History gabapentin 300 mg capsule 300 mg PO DAILY 03/25/24 03/25/24 History nortriptyline 25 mg capsule 25 mg PO BID 03/25/24 03/25/24 History amlodipine 5 mg tablet 5 mg PO DAILY #30 tabs 03/27/24 Rx cefdinir 300 mg capsule 300 mg PO BID 10 days #20 caps 03/27/24 Rx New Prescriptions to Start Prescriptions: Dylon Almanza cefdinir Dylon Jackson Allergies Allergy/AdvReac Type Severity Reaction Status Date / Time No Known Allergies Allergy Verified 03/25/24 14:56 Discharge Plan Disposition Patient Disposition: Home, Self-Care Discharge Order Discharge Orders: Discharge Order (Routine); Ordered 03/27/24 Ordered By: Dylon Jackson Follow up Plan Follow up with: Terrie Shafer MD [Staff Physician] - Enter time for follow up (Please call for your follow up.) Prescriptions/Medication Reconciliation: New amlodipine 5 mg tablet 5 mg PO DAILY Qty: 30 0RF cefdinir 300 mg capsule 300 mg PO BID 10 Days Qty: 20 0RF Continued atorvastatin 20 mg tablet 20 mg PO DAILY nortriptyline 25 mg capsule 25 mg PO BID gabapentin 300 mg capsule 300 mg PO DAILY Discontinued meloxicam 15 mg tablet 15 mg PO DAILY lisinopril 20 mg tablet 20 mg PO DAILY Problem Reconciliation Problems Reviewed?: Yes Patient Discharge Instructions Patient Instructions: DI for Urinary Tract Infection (UTI), DI for Acute Kidney Injury Print Language: Uzbek Providers Primary Care Provider: Mann Irene Admit Provider: Dylon Jackson Attending Provider: Dylon Jackson
--- OUTSIDE RECORDS SUMMARY | 2024-03-27 14:55 | XMS_ITS | Continuity of Care Document ---
Author Organization [facility] Address [address] [place] [address] Phone Care Team Providers Care Qa Software Tester Name Role Phone Palma Jj DO Primary Care Provider + [phone] Encounters Date Type Department Care Team Description 02/15/2024 8:00 AM EDT Office Visit [facility] [address] [place] [address] Gilda Francis PA Cervicalgia (Primary Dx); Intervertebral disc disorder with radiculopathy of lumbosacral region; Failed back syndrome of lumbar spine; Chronic pain syndrome; Spondylosis of lumbosacral region without myelopathy or radiculopathy; Cervical spondylosis; Osteoporosis, unspecified osteoporosis type, unspecified pathological fracture presence; Myofascial pain; Spinal stenosis of lumbar region, unspecified whether neurogenic claudication present; Neuroforaminal stenosis of lumbar spine; Lumbar radiculopathy; Chronic pain of right knee 01/14/2024 Orders Only [facility] [place] [address] [place] [address] Palma Jj DO Age-related osteoporosis without current pathological fracture (Primary Dx) 01/14/2024 Telephone [facility] [address] [place] [address] Palma Jj DO Medication Management ([facility] called on patient's behalf- requesting med change) 12/22/[address] [place] [address] Palma Jj, DO Other (Return call) 12/10/2023 Refill [facility] [address] [place] [address] Palma Jj, DO Medication Refill 11/27/[address] [place] [address] Palma Jj, DO Results (Results given) 11/20/[address] [place] [address] Palma Jj, DO Results (Lab: Vit D, CBC, Lipid, BMP, NT ProBNP) 11/11/2023 Orders Only [address] [place] [address] Palma Jj, Hypercholesterolemia 11/11/2023 9:00 AM EDT Office Visit [facility] [address] [place] [address] Gilda Francis PA Cervicalgia (Primary Dx); Intervertebral disc disorder with radiculopathy of lumbosacral region; Failed back syndrome of lumbar spine; Chronic pain syndrome; Spondylosis of lumbosacral region without myelopathy or radiculopathy; Cervical spondylosis; Spinal stenosis of lumbar region, unspecified whether neurogenic claudication present; DDD (degenerative disc disease), lumbar; Osteoporosis, unspecified osteoporosis type, unspecified pathological fracture presence; Neuroforaminal stenosis of lumbar spine; Lumbar radiculopathy; Myofascial pain 11/09/2023 10:40 AM EDT Office Visit [address] [place] [address] Palma Jj, DO Medicare annual wellness visit, subsequent (Primary Dx); Screening for diabetes mellitus; Screening for hyperlipidemia; Screening for osteoporosis; Postmenopausal; Thyroid cyst; Vitamin D deficiency; Bilateral carotid artery stenosis; Chronic diastolic (congestive) heart failure (HCC); Essential hypertension; Chronic diastolic (congestive) heart failure (HCC) 11/07/[address] [place] [address] Palma Jj, DO Medication Refill 11/03/[address] [place] [address] Palma Jj, DO Referral (Podiatry referral) 09/24/2023 Orders Only [address] [place] [address] Julianna Lea MA Spinal stenosis of lumbar region, unspecified whether neurogenic claudication present; DDD (degenerative disc disease), lumbar; Osteoporosis, unspecified osteoporosis type, unspecified pathological fracture presence; Neuroforaminal stenosis of lumbar spine; Lumbar pain; Right sided sciatica 09/14/2023 11:00 AM EDT Office Visit [facility] [place] [address] [place] [phone] Rachael Steven DPM Acquired clubfoot, right foot (Primary Dx); Right foot pain; Corns and callosities; Punctate porokeratosis; Left foot pain 09/09/[address] [place] [address] Palma Jj, DO Medication Management (True Metrix Meter) 08/28/2023 Orders Only [address] [place] [address] Julianna Lea MA Essential hypertension 08/12/2023 1:05 PM EDT - 08/12/2023 11:59 PM EDT Hospital Encounter [facility] [address] [place] [id number] Cervicalgia Discharge Disposition: Home or Self Care 08/06/2023 8:40 AM EDT Office Visit [address] [place] [address] Palma Jj, Primary osteoarthritis of right foot (Primary Dx); Chronic foot pain, right; COVID-19 vaccine administered; Bilateral carotid artery stenosis 07/28/2023 9:45 AM EDT Office Visit [facility] [address] [facility] [place] [phone] Chanel Acevedo APRN Failed back syndrome of lumbar spine (Primary Dx); Intervertebral disc disorder with radiculopathy of lumbosacral region; Cervicalgia; Chronic pain syndrome; Spondylosis of lumbosacral region without myelopathy or radiculopathy 07/23/2023 10:00 AM EDT - 07/23/2023 11:59 PM EDT Hospital Encounter [facility] [address] [place] [address] Palma Jj, DO PVD (peripheral vascular disease) ([facility]); Bilateral carotid artery stenosis Discharge Disposition: Home or Self Care 07/15/2023 Telephone [facility] [place] [address] [place] [address] Palma Jj, DO Other (Daughter requesting call back) 07/15/2023 10:40 AM EST Office Visit [place] [address] [place] [address] Palma Jj, Cellulitis of right foot (Primary Dx); Exudative age-related macular degeneration of left eye, unspecified stage ([facility]); Chronic diastolic (congestive) heart failure ([facility]); PVD (peripheral vascular disease) ([facility]); Bilateral carotid artery stenosis 07/07/2023 Telephone [facility] [place] [address] [place] [address] Palma Jj, Results (Results given) 07/07/2023 Telephone [facility] [place] [address] [place] [address] Palma Jj, DO Results 07/06/2023 1:51 PM EST - 07/06/2023 11:59 PM EST Hospital Encounter [facility] [address] [place], [place] [address] Acute foot pain, right Discharge Disposition: Home or Self Care 07/06/2023 1:00 PM EST Office Visit [facility] [address] [place] [address] Palma Jj, DO Acute foot pain, right (Primary Dx); Age related osteoporosis, unspecified pathological fracture presence; Essential hypertension; Spinal stenosis of lumbar region, unspecified whether neurogenic claudication present; DDD (degenerative disc disease), lumbar; Osteoporosis, unspecified osteoporosis type, unspecified pathological fracture presence; Neuroforaminal stenosis of lumbar spine; Lumbar pain; Right sided sciatica; Hypercholesterolemia; Vitamin D deficiency; GERD without esophagitis 07/06/2023 Telephone [facility] [address] [place] [address] Palma Jj, DO Appointment Needed (Hurt foot x 1 day ago and cannot put weight on it or walk on it) 06/30/2023 Telephone [facility] [address] [place] [address] Palma Jj, DO Medication Refill ( Disp Refills Start End /meloxicam (MOBIC) 15 mg Oral Tablet 30 Tablet 0 05/28/2023 - /Sig - Route:??TAKE 1 TABLET BY MOUTH EVERY DAY - Oral // Disp Refills Start End /lisinopriL (PRINIVIL;ZESTRIL) 20 mg Oral Tablet tablet 30 Tablet 2 04/06/2023 07/05/2023 /Sig - Route:??Take 1 Tablet by mouth daily for 90 days. - Oral // Disp Refills Start End /nortriptyline (PAMELOR) 25 mg Oral Capsule 30 Capsule 0 05/25/2023 - /Sig:??Take 1 capsule in the morning and 1 capsule at dinner /); Medication Management (pt wants every one of her medications switched to 90 day supply) 06/01/2023 8:20 AM EST Office Visit [facility] [address] [place] [place] [phone] Clay Ness MD Failed back syndrome of lumbar spine (Primary Dx); Intervertebral disc disorder with radiculopathy of lumbosacral region; Cervicalgia; Chronic pain syndrome; Spondylosis of lumbosacral region without myelopathy or radiculopathy 05/28/2023 Refill [facility] [address] [place] [address] Miky Webb MD Medication Refill 05/25/2023 Refill [facility] [place] [address] [place] [address] Miky Webb MD Medication Refill 05/25/2023 Refill [facility] [address] [place] [address] Miky Webb MD Medication Refill 05/25/2023 Refill [facility] [place] [address] [place] [address] Mann Irene MD Medication Refill 05/25/2023 Refill [facility] [place] [address] [place] [address] Palma Jj, DO Medication Refill 05/25/2023 Orders Only [facility] [place] [address] [place] [address] Palma Jj, DO 05/25/2023 Telephone [facility] [place] [address] [place] [address] Palma Jj, DO Other (Discuss Medication List) 05/01/[address] [address] Miky Webb MD 05/01/2023 Refill [facility] [address] [place] [address] Miky Webb MD Medication Refill 05/01/2023 Telephone [facility] [address] [address] Rahul Arriaga MA New Patient 05/01/2023 10:45 AM EST Office Visit [facility] [address] [place] [address] Miky Webb MD Spinal stenosis of lumbar region, unspecified whether neurogenic claudication present (Primary Dx); DDD (degenerative disc disease), lumbar; Osteoporosis, unspecified osteoporosis type, unspecified pathological fracture presence; Neuroforaminal stenosis of lumbar spine; Lumbar pain; Right sided sciatica; L5 S1 Protrusion of intervertebral disc of lumbosacral region; Vitamin D deficiency; Sciatica of right side 04/28/2023 Refill [place] [address] [place] [address] Palma Jj, DO Medication Refill 04/28/2023 Refill [facility] [place] [address] [place] [address] Palma Jj, DO Medication Refill 04/16/2023 Refill [place] [address] [place] [address] Palma Jj, DO Medication Refill 04/16/2023 Refill [place] [address] [place] [address] Mann Irene MD Medication Refill 04/15/2023 9:34 AM EST - 04/15/2023 11:59 PM EST Hospital Encounter [facility] [place] [address] Palma Jj, DO Recurrent syncope Discharge Disposition: Home or Self Care 04/10/2023 Orders Only [place] [address] [place] [address] Palma Jj, Age-related osteoporosis without current pathological fracture (Primary Dx) 04/06/2023 10:40 AM EST Office Visit [facility] [place] [address] [place] [address] Palma Jj, DO Recurrent syncope (Primary Dx); Essential hypertension 03/26/2023 Orders Only [place] [address] [place] [address] Palma Jj, DO Spinal stenosis of lumbar region without neurogenic claudication (Primary Dx) 03/23/2023 Telephone [address] [address] [place] [address] Palma Jj DO Referral ([facility]) 03/20/20[facility] [address] [address] Dylon Corrales MD Medication Refill 03/20/2023 10:15 AM EST [facility] [address] [place] [address] Dylon Corrales MD Spinal stenosis of lumbar region, unspecified whether neurogenic claudication present (Primary Dx); DDD (degenerative disc disease), lumbar; Neuroforaminal stenosis of lumbar spine; Osteoporosis, unspecified osteoporosis type, unspecified pathological fracture presence 03/17/2023 9:00 AM EST Telemedicine [facility] [address] [place] [address] Ramandeep Noriega APRN URI, acute (Primary Dx) 03/06/2023 Patient Outreach [address] [place] [address] Geraldine Whiteside RN CM- Longitudinal Continued; CM- Telephonic Outreach; CM-Resource Coordination 02/27/2023 10:30 AM EDT Telemedicine [address] [place] [address] Geraldine Whiteside RN Encounter for support and coordination of transition of care (Primary Dx); OA (osteoarthritis)-s/p RIGHT TOTAL HIP REPLACEMENT 02/16/14.; 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; Exudative age-related macular degeneration of left eye, unspecified stage (HCC); Age-related osteoporosis without current pathological fracture; Sensorineural hearing loss (SNHL) of left ear with restricted hearing of right ear 02/25/2023 12:30 PM EDT Office Visit [facility] [address] [place] [address] Lele Aquino MD Abnormal auditory perception, bilateral (Primary Dx); Tinnitus of both ears; Mixed conductive and sensorineural hearing loss, unilateral, 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; Sensorineural hearing loss, unilateral, right ear, with restricted hearing on the contralateral side; Ear fullness, bilateral 02/23/2023 2:45 PM EDT [facility] [address] [address] Jason Wright DO Spinal stenosis of lumbar region, unspecified whether neurogenic claudication present (Primary Dx); Neuroforaminal stenosis of lumbar spine; Lumbar radiculopathy 02/16/2023 Telephone [facility] [place] [address] [place] [address] Palma Jj DO Referral (ENT) 02/13/2023 9:00 AM EDT [facility] [address] [address] Dylon Corrales MD Spinal stenosis of lumbar region, unspecified whether neurogenic claudication present (Primary Dx); Neuroforaminal stenosis of lumbar spine; Lumbar pain 01/28/2023 Orders Only [place] [place] [address] [place] [address] Palma Jj DO 01/28/2023 9:00 AM EDT Office Visit [place] [address] [place] [address] Geraldine Whiteside RN Encounter for support and coordination of transition of care (Primary Dx); GERD without esophagitis; Thoracic spine pain; Vitamin D deficiency; L5 S1 Protrusion of intervertebral disc of lumbosacral region; Age related osteoporosis, unspecified pathological fracture presence; Acute low back pain, unspecified back pain laterality, unspecified whether sciatica present; Seasonal allergic rhinitis due to pollen 01/27/2023 Telephone [facility] [place] [address] Miky Webb MD Prior Authorization ([facility] ) 01/26/2023 Patient Outreach [place] [place] [address] [place] [address] Geraldine Whiteside RN CM- Longitudinal Continued; CM- Telephonic Outreach; CM-Resource Coordination 01/26/[address] [place] [address] Palma Jj, Appointment Needed (With Geraldine Whiteside); Medication Management (Questions about multiple meds. ) 01/23/2023 Orders Only [place] [address] Eileen London, PharmD 01/23/2023 10:45 AM EDT [facility] [address] [place] [address] [place] [address] Miky Webb MD Thoracic spine pain 01/23/2023 10:30 AM EDT Office Visit [facility] [address] [place] [address] Miky Webb MD Thoracic spine pain (Primary Dx); Age related osteoporosis, unspecified pathological fracture presence; Vitamin D deficiency; Acute low back pain, unspecified back pain laterality, unspecified whether sciatica present; L5 S1 Protrusion of intervertebral disc of lumbosacral region 01/16/2023 Orders Only [address] [place] [address] Pamla Jj, GERD without esophagitis (Primary Dx) 01/16/2023 Patient Outreach [address] [place] [address] Geraldine Whiteside RN CM- Longitudinal Continued; CM- Telephonic Outreach; CM-Resource Coordination 01/09/2023 Orders Only [facility] [address] [place] [address] Palma Jj DO 01/09/2023 8:30 AM EDT Office Visit [facility] [address] [place] [address] Geraldine Whiteside, RN Enrolled in chronic care management (Primary Dx) 01/07/2023 Telephone [facility] [address] [place] [address] Geraldine Whiteside, RN Other (returning office call ) 01/07/2023 Patient Outreach [address] [place] [address] Geraldine Whiteside RNmotor overhauler; CM- Telephonic Outreach; CM-Resource Coordination 12/22/[address] [place] [address] Mann Irene MD Medication Refill 12/22/[address] [place] [address] Palma Jj, DO Medication Refill 12/19/2022 Orders Only [address] [place] [address] Palma Jj, Age-related osteoporosis without current pathological fracture (Primary Dx) 12/19/2022 Travel 12/19/2022 9:34 AM EDT - 12/19/2022 11:59 PM EDT [facility] [address] [place] [address]. [place] [address] Palma Jj, Screening for osteoporosis; Postmenopausal Discharge Disposition: Home or Self Care 12/11/2022 4:00 PM EDT Office Visit [address] [place] [address] Palma Jj, DO Poison sumac (Primary Dx) 12/11/[address] [place] [address] Palma Jj, DO Other (Poison Sumac) 12/05/[address] [address] Bruce Oh MD Patient Question (pt needs list of back drs that she did not receive at last appointment) 12/03/2022 10:45 AM EDT Office Visit [address] [address] Bruce Oh MD History of right hip replacement (Primary Dx); Right knee pain, unspecified chronicity; Primary osteoarthritis of right knee 11/12/2022 Patient Outreach [facility] [address] [place] [address] Olesya Estrada LSW CM- Telephonic Outreach; CM-SDOH; Care Management - Chart Review 11/07/2022 Patient Outreach [facility] [address] [place] [address] Nabil Amaro, HAILEY, COS Referral 11/07/2022 9:00 AM EDT Office Visit [facility] [place] [address] Geraldine Whiteside, RN Encounter for support and coordination of transition of care (Primary Dx) 11/07/2022 Patient Outreach [facility] [address] [place] [address] Nabil Amaro, HAILEY, COS Referral 11/07/2022 8:20 AM EDT Office Visit [place] [address] [place] [address] Palma Jj, Medicare annual wellness visit, subsequent (Primary Dx); Screening for osteoporosis; Postmenopausal; Burning with urination; Advanced care planning/counseling discussion; PVD (peripheral vascular disease) (HCC); Essential hypertension; Bilateral carotid artery stenosis; Thyroid cyst 11/03/2022 11:00 AM EDT Ancillary Procedure [facility] [address] [address] Bruce Oh MD History of right hip replacement; Right knee pain, unspecified chronicity 10/28/[address] [address] [place] [address] Palma Jj DO Information Only (Mri ) 10/28/2022 Telephone [facility] [address] [employer] [address] [address] Bruce Oh MD Knee Pain 10/28/2022 Refill [facility] [place] [address] [place] [address] Mann Irene MD Medication Refill 10/27/2022 Refill [facility] [address] [place] [address] Mann Irene MD Medication Refill 10/23/2022 Telephone [facility] [address] [place] [address] Bruce Oh MD Knee Pain 10/22/2022 2:30 PM EDT Ancillary Procedure [address] [address] Bruce Oh MD Right knee pain, unspecified chronicity 10/22/2022 2:15 [place] [address] Bruce Oh MD History of right hip replacement 10/22/2022 2:00 [place] [address] Bruce Oh MD History of right hip replacement 10/22/2022 1:45 PM EDT Office Visit [address] [address] Bruce Oh MD History of right hip replacement (Primary Dx); Right knee pain, unspecified chronicity 10/04/2022 Refill [facility] [place] [address] [place] [address] Palma Jj, DO Medication Refill 08/01/2022 Refill [facility] [address] [place] [address] Mann Irene MD Medication Refill 07/30/2022 Orders Only [facility] [place] [address] Palma Jj DO Acute cystitis without hematuria (Primary Dx) 07/28/2022 Travel 07/28/2022 11:20 AM EDT - 07/28/2022 11:59 PM EDT Hospital Encounter Mobile Mammography Other Location View online schedule for mobile van location [phone] Mann Irene MD Encounter for screening mammogram for malignant neoplasm of breast Discharge Disposition: Home or Self Care 07/28/2022 8:40 AM EDT Office Visit [address] [place] [address] Palma Jj, DO Essential hypertension (Primary Dx); Dysuria 07/18/[address] [place] [address] Mann Irene MD Medication Refill 07/14/2022 9:40 AM EST Office Visit [address] [place] [address] Palma Jj, DO Essential hypertension (Primary Dx); Exudative age-related macular degeneration of left eye, unspecified stage (HCC); Thyroid cyst 07/11/[address] [place] [address] Palma Jj, DO Other (question about appt today ) 07/10/[address] [place] [address] Mann Irene MD Medication Refill 07/10/2022 Orders Only [address] [place] [address] Palma Jj, DO Essential hypertension (Primary Dx) 07/09/2022 1:40 PM EST Office Visit [address] [place] [address] Palma Jj, DO Hypertensive urgency (Primary Dx) 05/01/[address] [place] [address] Mann Irene MD Medication Refill 04/25/[address] [place] [address] Mann Irene MD Symptom Call (Light headed, dizzy, high BP) 04/24/2022 Telephone [facility] [address] [id number] Fredi Nick MD Results (biotel) 04/22/2022 Refill [facility] [address] [place] [address] Mann Irene MD Medication Refill 04/19/2022 Refill [facility] [address] [place] [address] Mann Irene MD Medication Refill 04/17/2022 10:45 AM EST Office Visit [facility] [address] [place] [address] Geraldine Whiteside RN Hospital discharge follow-up (Primary Dx) 04/17/2022 10:20 AM EST Office Visit [place] [address] [place] [address] Mann Irene MD Syncope, unspecified syncope type (Primary Dx); Exudative age-related macular degeneration of left eye, unspecified stage (HCC); 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 04/04/2022 Travel 04/04/2022 9:55 AM EST - 04/04/2022 11:59 PM EST Hospital Encounter [facility] [address] [place] [address] Fredi Nick MD Syncope, unspecified syncope type Discharge Disposition: Home or Self Care 04/02/2022 Patient Outreach [place] [address] [place] [address] Nerissa Vargas RN Hospital Follow Up 04/01/2022 Orders Only [facility] [address] Fredi Nick MD Syncope, unspecified syncope type (Primary Dx) 03/28/2022 12:15 PM EST - 04/01/2022 1:01 PM EST Emergency [place] [address] Marivel King DO Cho, Soung H, MD Syncope, unspecified syncope type (Primary Dx) Discharge Disposition: Home or Self Care 03/29/2022 Travel 03/27/2022 Telephone [place] [address] [place] [address] Mann Irene MD Appointment Needed 02/17/2022 Travel 02/17/2022 9:15 AM EDT - 02/17/2022 11:59 PM EDT Hospital Encounter [facility] [address] [place] [address] Mann Irene MD Syncope due to orthostatic hypotension Discharge Disposition: Home or Self Care 02/14/2022 Telephone [place] [address] [place] [address] Mann Irene MD Follow-up (heart monitor ) 01/28/[address] [place] [address] Mann Irene MD Results 01/27/2022 10:40 AM EDT Office Visit [place] [address] [place] [address] Mann Irene MD Syncope, cardiogenic (Primary Dx); 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; Chronic fatigue 01/24/[address] [place] [address] Mann Irene MD Appointment Needed (Passed out once yesterday ) 10/31/2021 Travel 10/31/2021 11:35 AM EDT - 10/31/2021 11:59 PM EDT Hospital Encounter [facility] [address] [place] [address] Mann Irene MD PVD (peripheral vascular disease) (HCC); Bruit Discharge Disposition: Home or Self Care 10/31/2021 11:35 AM EDT - 10/31/2021 11:59 PM EDT Hospital Encounter [facility] [address] [place] [place] [address] Mann Irene MD Claudication (HCC) Discharge Disposition: Home or Self Care 10/30/[address] [place] [address] Mann Irene MD Paperwork/forms (Handicap form ) 10/20/[address] [place] [phone] Mann Irene MD Medication Refill 09/24/2021 8:20 AM EDT Office Visit [address] [place] [phone] Mann Irene MD Hypercholesterolemia (Primary Dx); Claudication (HCC); Osteoarthritis, unspecified osteoarthritis type, unspecified site; Dysphagia, unspecified type; PVD (peripheral vascular disease) ([facility]); Bruit; Chronic fatigue; Vitamin D deficiency; Acute bacterial sinusitis 09/17/2021 Orders Only [address] [place] [address] Carl Irene MD Diarrhea, unspecified type (Primary Dx) 09/17/[address] [place] [address] Mann Irene MD Medication Reaction 09/16/2021 11:20 AM EDT Office Visit [address] [place] [address] Carl Irene MD Acute bacterial sinusitis (Primary Dx) 09/15/[address] [place] [address] Mann Irene MD Medication Refill 09/05/[address] [place] [address] Mann Irene MD Medication Refill (allergy relief) 07/22/[address] [place] [address] Mann Irene MD Medication Refill 07/16/2021 Travel 07/16/2021 11:23 AM EST - 07/16/2021 11:59 PM [facility] Hospital Encounter Mobile Mammography Other Location View online schedule for mobile van location [phone] Mann Irene MD Encounter for screening mammogram for malignant neoplasm of breast Discharge Disposition: Home or Self Care 03/18/2021 Refill SEP [address] [place] [address] Mann Irene MD Medication Refill (atorvastatin (LIPITOR) 10 mg Oral Jahjug65 Cdxyup7802/05/2021) 03/18/[address] [place] [address] Mann Irene MD Medication Management (meloxicam (MOBIC) 15 mg Oral Rjljqh85 Dlyily93 ) 02/08/[address] [place] [address] Mann Irene MD Medication Refill 02/05/2021 Travel 02/05/2021 9:00 AM EDT Office Visit [address] [place] [address] Mann Irene MD Annual physical exam (Primary Dx); Seasonal allergic rhinitis due to pollen; Needs flu shot; Hypercholesterolemia; Osteoarthritis, unspecified osteoarthritis type, unspecified site 12/06/2020 Patient Outreach [facility] [address] [place], [place] [address] Mann Irene MD Central Patient Navigator Outreach (AWV) 09/26/[address] [place] [address] Mann Irene MD Medication Refill (multiple meds) 05/05/2020 Refill SEP [address] [place] [address] Mann Irene MD Medication Refill 03/27/2020 Travel 03/27/[address] [place] [address] Mann Irene MD Orders (covid ) 03/23/2020 Travel 03/23/2020 8:00 AM EST Clinical Support [address] [place] [phone] Jill Beck Malaise and fatigue; Vitamin D deficiency; Recurrent UTI (urinary tract infection) 03/22/2020 4:30 PM EST Office Visit [address] [place] [address] Hari, RamandeepMATTHEWN Malaise and fatigue (Primary Dx); Vitamin D deficiency; Recurrent UTI (urinary tract infection) 03/22/2020 Travel 03/07/[address] [place] [phone] Mann Irene MD Medication Refill 02/06/[address] [place] [address] Mann Irene MD Medication Refill 01/25/2020 Travel 01/25/2020 2:00 PM EDT Office Visit [facility] Urology NPTFTT [address] [place] [id number] Amari Wheeler MD Asymptomatic microscopic hematuria (Primary Dx) 01/12/2020 8:00 AM EDT Clinical Support [facility] [place] [address] [place] [phone] Jill Beck Hypercholesterolemia 01/11/2020 Travel 01/04/[address] [place] [address] Mann Irene MD Appointment Needed (Labs and Flu Shot) 01/02/2020 Travel 01/02/2020 3:00 PM EDT - 01/02/2020 4:15 PM EDT Surgery EDG [facility] [place] [address] Amari Wheeler MD CYSTOSCOPY, URETEROSCOPY, LASER LITHOTRIPSY, RETROGRADE PYELOGRAM, STENT INSERTION 01/02/2020 2:45 PM EDT Anesthesia Event EDG PERIOP [facility] [place] [address] London Cheng MD [place] TanyaPATRICIA 01/02/2020 12:32 PM EDT - 01/02/2020 5:15 PM EDT Hospital Encounter EDG SAME DAY SURGERY [facility] [place] [address] Amari Wheeler MD Nephrolithiasis; Nephrolithiasis Discharge Disposition: Home or Self Care 12/29/2019 Travel 12/29/2019 10:05 AM EDT - 12/29/2019 11:59 PM EDT Hospital Encounter [facility] [address] [place] [address] Covid19, [facility] Pre-op testing; Encounter for laboratory testing for COVID-19 virus Discharge Disposition: Home or Self Care 12/20/2019 Travel 12/20/2019 Refill [facility]PT[facility] [address] [place] [address] Amari Wheeler MD Medication Refill 12/14/2019 Travel 12/14/2019 2:00 PM EDT Procedure visit [facility]PT[facility] [address] [place] [address] Amari Wheeler MD Nephrolithiasis (Primary Dx) 12/09/2019 Refill [place] [place] [address] Mann Irene MD Medication Refill 12/08/2019 9:00 AM EDT Office Visit [place] [address] Mann Irene MD Annual physical exam (Primary Dx); Hypercholesterolemia; Other microscopic hematuria; Claudication (HCC) 12/05/2019 11:05 AM EDT - 12/05/2019 11:59 PM EDT Hospital Encounter [facility] [address] [place] [address] Urine culture positive; Hypercholesterolemia Discharge Disposition: Home or Self Care 12/05/2019 Travel 11/28/2019 Travel 11/28/2019 1:00 PM EDT - 11/28/2019 2:15 PM EDT Surgery [facility] [address] [place] [address] Amair Wheeler MD CYSTOSCOPY STENT INSERTION OR EXCHANGE 11/28/2019 12:30 PM EDT Anesthesia Event [facility] [address] [place] [address] Raghav Nolan MD Braxton-Brown, Jennifer, APRN 11/28/2019 10:28 AM EDT - 11/28/2019 3:39 PM EDT Hospital Encounter [facility] SAME DAY SURGERY [address] [place] [address] Amari Wheeler MD Hypercholesterolemia (Primary Dx); Urine culture positive Discharge Disposition: Home or Self Care 11/25/2019 Travel 11/24/2019 10:20 AM EDT - 11/24/2019 11:59 PM EDT Hospital Encounter [facility] [address] [place] [address] Covid19, [facility] Pre-op testing; Encounter for laboratory testing for COVID-19 virus Discharge Disposition: Home or Self Care 11/23/2019 Orders Only [facility] [address] [place] [phone] Amari Wheeler MD Urinary tract infection without hematuria, site unspecified (Primary Dx) 11/22/2019 Telephone [facility] [address] [place] [phone] Amari Wheeler MD Other 11/22/2019 Orders Only [facility] [address] [place] [phone] Amari Wheeler MD 11/22/2019 Travel 11/21/2019 Orders Only [facility] [address] [place] [phone] Cheyanne Forman MA 11/18/2019 Travel 11/17/2019 Telephone [facility] [address] [phone] Oralia Krueger MA Other 11/16/2019 Travel 11/16/2019 11:40 AM EDT Office Visit [facility] [address] [phone] Amari Wheeler MD Urine culture positive (Primary Dx) 11/07/2019 Patient Outreach [facility] [address] [place] [address] Wanda Gilliland BS, COS Care Management - Chart Review 11/02/2019 Patient Outreach [facility] [place] [address] Nerissa Vargas RN ED Follow-Up Call; ED Follow-Up Call 10/31/2019 - 10/31/2019 11:32 PM EDT Emergency [facility] Emergency [address] [facility] [place] [address] Discharge Disposition: ED Dismiss - Never Arrived 10/31/2019 3:00 PM EDT Telemedicine [facility] [address] [phone] Amari Wheeler MD Other microscopic hematuria (Primary Dx) 10/30/2019 11:35 PM EDT - 10/31/2019 3:23 AM EDT Emergency [facility] [address] [facility] [place] [address] Jorge Luis Sharif MD Acute cystitis with hematuria (Primary Dx); Gross hematuria Discharge Disposition: Home or Self Care 10/30/2019 Travel 10/26/2019 Travel 10/26/2019 10:30 AM EDT - 10/26/2019 11:30 AM EDT Surgery EDG [facility] [place] [address] Amari Wheeler MD CYSTOSCOPY TRANSURETHRAL RESECTION BLADDER TUMOR - FULGURATION/EVACUATION OF CLOT 10/26/2019 10:30 AM EDT Anesthesia Event EDG [facility] [place] [address] Michelle Tucker MD Tanya Larwence, PATRICIA 10/26/2019 8:44 AM EDT - 10/26/2019 11:56 AM EDT Hospital Encounter EDG SAME DAY SURGERY [facility] [place] [address] Amari Wheeler MD Hematuria; Hematuria, unspecified type Discharge Disposition: Home or Self Care 10/21/2019 9:51 AM EDT - 10/21/2019 11:59 PM EDT Hospital Encounter [facility] [address] [place] [address] Covid19, [facility] Pre-op testing; Encounter for laboratory testing for COVID-19 virus Discharge Disposition: Home or Self Care 10/20/2019 Travel 10/19/2019 Telephone [facility] [address] [address] Oralia Krueger MA Other 10/19/2019 Telephone [facility] [address] [place] [phone] Mann Irene MD Other (needing appt ) 10/12/2019 Telephone [facility] [address] [address] Oralia Krueger MA Other 10/11/2019 Telephone [facility] [address] [address] Oralia Krueger MA Other 10/10/2019 12:05 PM EDT - 10/10/2019 11:59 PM EDT Hospital Encounter [facility] [address] [place] [address] Hematuria, unspecified type Discharge Disposition: Home or Self Care 10/10/2019 Travel 10/10/2019 11:40 AM EDT Procedure visit [facility] [address] [address] Amari Wheeler MD Hematuria, unspecified type (Primary Dx) 09/23/2019 Travel 09/23/2019 Patient Outreach [facility] [address] [place] [phone] Mann Irene MD Central Patient Navigator Outreach 09/22/2019 Travel 08/16/2019 Refill [facility] [place] [address] [place] [address] Mann Irene MD Medication Refill 08/11/2019 Travel 08/10/2019 Telephone [facility] [address] [address] Oralia Krueger MA Other 08/09/2019 Orders Only [facility] [place] [address] [place], [place] [address] Elida Pavon CCMA Seasonal allergic rhinitis due to pollen 08/09/2019 Telephone [facility] [place] [address] [place] [address] Mann Irene MD Medication Refill 08/04/2019 Travel 07/29/2019 Travel 07/25/2019 Orders Only [facility]PT[facility] [address] [place] [address] Shaniqua Bustillo MA Urinary tract infection without hematuria, site unspecified (Primary Dx) 07/25/2019 Telephone [facility] [address] [place] [address] Amari Wheeler MD Other 07/25/2019 Telephone [facility] [place] [address] [place] [address] Mann Irene MD Urinary Tract Infection 07/22/2019 Travel 07/22/2019 8:56 AM EDT - 07/22/2019 11:59 PM EDT Hospital Encounter [facility] [address] [place] [phone] Amari Wheeler MD Recurrent UTI; Feeling of incomplete bladder emptying Discharge Disposition: Home or Self Care 07/20/2019 Travel 07/20/2019 11:30 AM EDT Office Visit [facility] NPT[facility] [address] [place] [phone] Amari Wheeler MD Recurrent UTI (Primary Dx); Feeling of incomplete bladder emptying 07/04/2019 Travel 07/04/[address] [place] [address] Mann Irene MD Referral 05/20/[address] [place] [address] Mann Irene MD Medication Refill 04/20/[address] [place] [address] Mann Irene MD Medication Management (levoFLOXacin (LEVAQUIN) 750 mg Oral Tablet7 Qex180) 04/18/[address] [place] [address] Mann Irene MD Results (returning call for results ) 04/17/2019 Orders Only [address] [place] [address] Hari Ramandeep, PATRICIA UTI (urinary tract infection), uncomplicated (Primary Dx) 04/15/2019 9:00 AM EST Office Visit [address] [place] [address] [place] Ramandeep, PATRICIA Recurrent UTI (urinary tract infection) (Primary Dx); Dysuria 04/04/[address] [place] [address] Mann Irene MD Medication Refill 03/16/[address] [place] [address] Mann Irene MD Medication Refill 03/14/2019 9:30 AM EST - 03/14/2019 9:45 AM EST Surgery [facility] [place] [facility] [address] [place] [address] [place] [address] Conro Ramirez MD CATARACT EXTRACTION WITH PHACOEMULSIFICATION AND INTRAOCULAR LENS 03/14/2019 9:30 AM EST Anesthesia Event [facility] [place] [facility] [address] [place] [address] Viola Parrish MD Oliver, Richard G, MD 03/14/2019 7:48 AM EST - 03/14/2019 10:20 AM EST Hospital Encounter [facility] [place] [address] [place] [address] Conor Ramirez MD Discharge Disposition: Home or Self Care 02/28/2019 Travel 02/28/2019 9:30 AM EDT - 02/28/2019 9:45 AM EDT Surgery [place] [address] [place] [address] Conor Ramirez MD CATARACT EXTRACTION WITH PHACOEMULSIFICATION AND INTRAOCULAR LENS 02/28/2019 9:37 AM EDT Anesthesia Event [place] [address] [place] [address] Lexi Golden MD Oliver, Richard G, MD 02/28/2019 8:06 AM EDT - 02/28/2019 10:28 AM EDT Hospital Encounter [place] [address] [place] [address] Conor Ramirez MD Discharge Disposition: Home or Self Care 02/23/2019 Travel 02/21/2019 10:40 AM EDT Office Visit [place] [facility] [address] [place] [address] Carl Irene MD Pre-op examination (Primary Dx); Age-related cataract of both eyes, unspecified age-related cataract type; Osteoarthritis, unspecified osteoarthritis type, unspecified site; Need for influenza vaccination; UTI (urinary tract infection), uncomplicated 02/11/2019 Orders Only [place] [place] [facility] [address] [place] [address] Brittany Slaughter CCMA 02/10/2019 4:40 PM EDT Office Visit [place] [facility] [address] [place] [address] Ramandeep Noriega APRN UTI (urinary tract infection), uncomplicated (Primary Dx); Dysuria 02/10/2019 11:12 AM EDT - 02/10/2019 11:59 PM EDT Hospital Encounter [facility] DEXA [address] [place] [address] Mann Irene MD Post-menopausal Discharge Disposition: Home or Self Care 02/09/2019 Patient Outreach [facility] [place] [address] [place] [address] Jr Jackson, UMA Osteoporosis (dexa) 01/27/2019 Patient Outreach [facility] [place] [address] [place] [address] Sofia Villegas, PharmD Medication Management 01/26/2019 Orders Only [place] [address] [facility] [phone] Mann Irene MD Encounter for medication review (Primary Dx) 01/02/2019 Refill [facility] [place] [address] [place] [address] Mann Irene MD Medication Refill 12/31/2018 Patient Outreach [place] [address] [place] [address] Mann Irene MD Osteoporosis (osteoporosis screening) 12/28/2018 9:29 AM EDT - 12/31/2018 9:30 AM EDT Hospital Encounter EDG 7D ORTHO [facility] [address] [place] [phone] Bruce Oh MD Discharge Disposition: [facility] Facility 12/28/2018 Travel 12/28/2018 2:45 PM EDT - 12/28/2018 4:00 PM EDT Surgery EDG [facility] [place] [address] Bruce Oh MD TOTAL KNEE REPLACEMENT/ARTHROPLASTY 12/28/2018 2:15 PM EDT Anesthesia Event EDG [facility] [place] [address] Eduardo Interiano MD Powell, Jeanne, APRN 12/25/[address] [place] [address] Mann Irene MD Medication Refill 12/16/2018 Orders Only [address] [place] [address] Mann Irene MD Cataract of left eye, unspecified cataract type (Primary Dx); Cataract (lens) fragments in eye following cataract surgery; Cataract of right eye, unspecified cataract type 12/15/2018 Travel 12/15/2018 8:37 AM EDT - 12/15/2018 11:59 PM EDT Hospital Encounter EDG PRE-ADMIT TESTING [facility] [place] [address] Bruce Oh MD 1, Edg Pat Nurse Anticoagulation adequate (Primary Dx) Discharge Disposition: Home or Self Care 12/06/2018 9:40 AM EDT Office Visit [address] [place] [address] Mann Irene MD Annual physical exam (Primary Dx); Claudication (HCC); Osteoarthritis, unspecified osteoarthritis type, unspecified site; Pre-op examination 11/19/[address] [place] [address] Mann Irene MD Medication Refill 10/18/[address] [place] [address] Mann Irene MD Medication Refill 10/15/2018 8:34 AM EDT - 10/15/2018 11:59 PM EDT Hospital Encounter [facility] Mammogram [address] [place] [address] Mann Irene MD Encounter for screening for malignant neoplasm of breast Discharge Disposition: Home or Self Care 09/14/[address] [place] [phone] Mann Irene MD Medication Refill 09/13/[address] [place] [address] Mann Irene MD Medication Refill 09/10/[address] [place] [address] Mann Ireen MD Referral 07/15/[address] [place] [address] Mann Irene MD Medication Refill 07/12/[address] [place] [address] Mann Irene MD Medication Refill 03/05/2018 2:40 PM EDT Office Visit [address] [place] [phone] Ramandeep Noriega APRN Viral gastroenteritis (Primary Dx); Dizziness; Hypernatremia 03/02/[address] [place] [address] Mann Irene MD Medication Refill 01/23/[address] [place] [address] Mann Irene MD Medication Refill 12/11/2017 9:22 AM EDT - 12/11/2017 11:59 PM EDT Hospital Encounter [facility] VASCULAR [facility] [place] [address] Mann Irene MD Claudication (HCC) Discharge Disposition: Home or Self Care 11/17/[address] [place] [address] Mann Irene MD Medication Refill 10/13/2017 8:00 AM EDT Office Visit [address] [place] [address] Mann Irene MD Hypercholesterolemia (Primary Dx); Hypernatremia; Need for hepatitis C screening test; Screening for deficiency anemia; Claudication (HCC); Acute bronchitis, unspecified organism 09/29/[address] [place] [address] Mann Irene MD Medication Refill 09/14/2017 2:12 PM EDT - 09/14/2017 11:59 PM EDT Hospital Encounter Mobile Mammography Other Location View online schedule for mobile van location [phone] Mann Irene MD Encounter for screening mammogram for breast cancer Discharge Disposition: Home or Self Care 09/11/2017 10:50 AM EDT Office Visit [address] [place] [phone] Mann Irene MD Well adult exam (Primary Dx); Encounter for screening mammogram for breast cancer; Osteoarthritis, unspecified osteoarthritis type, unspecified site; UTI (urinary tract infection), uncomplicated 08/31/[address] [place] [address] Mann Irene MD Medication Refill 07/18/[address] [place] [address] Mann Irene MD Medication Refill 04/25/[address] [place] [address] Mann Irene MD Medication Refill 01/06/[address] [place] [address] Mann Irene MD Medication Refill 12/01/[address] [place] [phone] Mann Irene MD Medication Problem 11/28/[address] [place] [address] Mann Ireen MD Medication Refill 11/23/[address] [place] [address] Mann Irene MD Medication Refill 10/01/2016 4:40 PM EDT Office Visit [address] [place] [address] Mark Rosas MD Sinusitis, unspecified chronicity, unspecified location (Primary Dx) 10/01/[address] [place] [address] Mann Irene MD Medication Refill 09/30/[address] [place] [address] Mann Irene MD Referral 03/11/2016 3:40 PM EDT Office Visit [address] [place] [address] Mann Irene MD Pneumonia of right lower lobe due to infectious organism (Primary Dx) 01/25/[address] [place] [address] Mann Irene MD Other (bloodwork) 01/23/2016 4:09 PM EDT - 01/23/2016 11:59 PM EDT Hospital Encounter [facility] LAB LAURA PROCESSING [facility] [place] [address] Annual physical exam; Screening for cholesterol level; Screening for thyroid disorder Discharge Disposition: Home or Self Care 01/23/2016 8:00 AM EDT Clinical Support [address] [place] [address] Brittany Slaughter CCMA Hypercholesterolemia (Primary Dx) 01/08/2016 4:00 PM EDT Office Visit [address] [place] [phone] Oralia Hall PA-C Allergic rhinitis, seasonal (Primary Dx); Hyperlipidemia; Osteoarthritis, unspecified osteoarthritis type, unspecified site; Annual physical exam; Screening for cholesterol level; Screening for thyroid disorder 10/04/[address] [place] [address] Mann Irene MD Medication Refill 09/28/[address] [place] [address] Mann Irene MD Medication Refill 09/04/2015 11:40 AM EDT Office Visit [address] [place] [address] Latesha Cabral APRN Acute bacterial sinusitis (Primary Dx); Acute bronchitis, unspecified organism 09/03/[address] [place] [phone] Mann Irene MD Other 08/29/[address] [place] [address] Mann Irene MD Referral 07/30/2015 11:50 AM EDT Office Visit [address] [place] [address] Mann Irene MD Fever, unspecified fever cause (Primary Dx); Acute gastroenteritis 07/30/[address] [place] [address] Mann Irene MD Illness 07/27/[address] [place] [address] Mann Irene MD Other ([employer] O Referral) 05/14/[address] [place] [address] Mann Irene MD Medication Refill 03/12/2015 Orders Only [address] [place] [address] Stefania Oquendo MD Pain of toe of right foot (Primary Dx) 03/02/2015 8:57 PM EDT - 03/02/2015 11:59 PM EDT Hospital Encounter [facility]A PROC[facility]ING [facility] [place] [address] Acute idiopathic gout of right foot Discharge Disposition: Home or Self Care 03/02/2015 2:30 PM EDT Office Visit [address] [place] [phone] Stefania Oquendo MD Menopausal symptoms (Primary Dx); Acute idiopathic gout of right foot; Psoriasis 01/18/[address] [place] [address] Mann Irene MD Medication Refill 12/22/[address] [place] [address] Mann Irene MD Medication Refill 11/27/[address] [place] [phone] Mann Irene MD Medication Refill 10/04/2014 3:50 PM EDT Office Visit [address] [place] [address] Stefania Oquendo MD Bronchitis (Primary Dx) 09/01/2014 6:01 PM EDT - 09/01/2014 11:59 PM EDT Hospital Encounter [facility]ESSING [facility] [place] [address] Well adult exam Discharge Disposition: Home or Self Care 09/01/2014 8:20 AM EDT Office Visit [address] [place] [phone] Mann Irene MD Well adult exam (Primary Dx); Hand dermatitis; Hip joint replacement by other means; Hypercholesterolemia 08/10/[address] [place] [address] Mann Irene MD Medication Refill 08/09/[address] [place] [address] Mann Irene MD Medication Refill 07/10/2014 8:45 PM EST - 07/10/2014 11:59 PM EST Hospital Encounter [facility]A PROCESSING [facility] [place] [address] Discharge Disposition: Home or Self Care 07/10/2014 Orders Only [facility] [address] [place] [address] Edil Mann MD 07/07/2014 Telephone [facility] [address] [facility] [address] [place] [address] Edil Mann MD Reschedule 06/29/2014 Patient Outreach [address] [place] [address] Sujatha Goldman RN Care Transition (follow up ) 06/02/2014 Telephone [facility] [address] [place] [facility] [address] [place] [address] Edil Mann MD Reschedule 06/02/[address] [place] [address] Sujatha Goldman RN Care Transition (Follow up) 06/02/[address] [place] [address] Mann Irene MD Other 06/01/2014 Patient Outreach [address] [place] [address] Sujatha Goldman RN Care Transition (Follow up call) 05/15/[address] [place] [address] Mann Irene MD Referral 05/10/2014 1:00 PM EST Office Visit [address] [place] [address] Mark Rosas MD Viral illness (Primary Dx); Elevated BP 05/10/[address] [place] [address] Mann Irene MD Hypertension 04/28/2014 Patient Outreach [address] [place] [address] Sujatha Goldman RN Care Transition (Face to face encounter) 04/28/2014 10:40 AM EST Office Visit [facility] [address] [place] [address] Mann Irene MD Hand dermatitis (Primary Dx); Diarrhea 03/29/2014 Patient Outreach [facility] [address] [place] [address] Sujatha Goldman RN Care Transition (returning call) 03/28/2014 Patient Outreach [facility] [address] [place] [address] Sujatha Goldman RN Care Transition (Follow up call) 03/14/2014 Telephone [facility] [address] [place] [address] Mann Irene MD Medication Refill 03/07/2014 Refill SEP [address] [place] [address] Mann Irene MD Medication Refill 03/06/2014 2:00 PM EDT Office Visit [facility] [address] [place] [address] Mann Irene MD OA (osteoarthritis)-s/p RIGHT TOTAL HIP REPLACEMENT 02/16/14. (Primary Dx) 02/28/2014 Patient Outreach [facility] [address] [place] [address] Sujatha Goldman RN Care Transition (Hospital follow up call) 02/20/2014 6:45 PM EDT - 02/25/2014 3:10 PM EDT Hospital Encounter [facility] [address] [place] [address] Enrique Baker MD Screening for tuberculosis (Primary Dx); At risk for constipation; Pain; High cholesterol; Prevention of blood clots; Anemia; Hypokalemia Discharge Disposition: Home Health Care [facility] 02/24/[address] [place] [address] Mann Irene MD Other 02/16/2014 6:27 AM EDT - 02/20/2014 5:34 PM EDT Hospital Encounter EDG 7D ORTHO [facility] [place] [id number] Bruce Oh MD OA (osteoarthritis) (Primary Dx); Hypercholesterolemia; Hypernatremia Discharge Disposition: [facility] 02/16/2014 9:00 AM EDT - 02/16/2014 10:30 AM EDT Surgery EDG PERIOP [facility] [place] [id number] Bruce Oh MD TOTAL HIP ARTHROPLASTY/REPLACEMENT- ANTERIOR OR REVISION ANTERIOR (KYLEE/NIC) 02/14/2014 Telephone [facility] [address] [place] [address] Mann Irene MD Other 02/11/2014 Refill [facility] [address] [place] [address] Mann Irene MD Medication Refill 02/09/2014 9:00 AM EDT - 02/09/2014 11:59 PM EDT Hospital Encounter [place] [address] Provider, Edg Total Joint Class Discharge Disposition: Home or Self Care 02/09/2014 7:30 AM EDT - 02/09/2014 8:59 AM EDT Hospital Encounter EDG PRE-ADMIT TESTING [facility] [place] [address] 2, Edg Pat Nurse OA (osteoarthritis) (Primary Dx); Pre-op testing; Anticoagulant disorder (HCC) Discharge Disposition: Home or Self Care 01/19/2014 9:40 AM EDT Office Visit [facility] [address] [place] [address] Mann Irene MD Dysuria (Primary Dx) 01/17/2014 Telephone SEP [facility] [address] [facility] [address] [place] [address] Edil Mann MD Other 01/16/2014 8:54 PM EDT - 01/16/2014 11:59 PM EDT Hospital Encounter EDG LAB LAURA PROCESSING [facility] [place] [id number] Dysuria Discharge Disposition: Home or Self Care 01/16/2014 3:00 PM EDT Office Visit [address] [place] [address] Mann Irene MD UTI (urinary tract infection) (Primary Dx); Dysuria 01/16/[address] [place] [address] Mann Irene MD Urinary Tract Infection 01/13/[address] [place] [address] Mann Irene MD Paperwork/forms 12/22/[address] [place] [address] Mann Irene MD Other 12/22/2013 Orders Only [address] [place] [address] Mann Irene MD Hip fracture, unspecified laterality, closed, initial encounter (HCC) (Primary Dx) 12/21/2013 4:35 PM EDT - 12/21/2013 11:59 PM EDT Hospital Encounter [facility] [address] [place] [address] Mann Irene MD Leg pain Discharge Disposition: Home or Self Care 12/19/2013 7:09 PM EDT - 12/19/2013 11:59 PM EDT Hospital Encounter EDG LAB LAURA PROCESSING [facility] [address] [place] [address] Dysuria Discharge Disposition: Home or Self Care 12/19/2013 Orders Only [address] [place] [address] Stefania Oquendo MD Pain (Primary Dx); Difficulty walking 12/19/2013 12:45 PM EDT Office Visit [address] [place] [address] Mann Irene MD Dysuria (Primary Dx); UTI (lower urinary tract infection); Leg pain, central, right 12/17/2013 Refill SEP [facility] [address] [place] [address] Mann Irene MD Medication Refill 12/16/2013 3:41 PM EDT - 12/16/2013 11:59 PM EDT Hospital Encounter EDG LAB LAURA PROCESSING [facility] [place] [address] Thigh pain, right Discharge Disposition: Home or Self Care 12/16/2013 1:04 PM EDT - 12/16/2013 3:40 PM EDT Hospital Encounter GRT XRAY [address] [place] [address] Thigh pain, right Discharge Disposition: Home or Self Care 12/16/2013 11:00 AM EDT Office Visit [facility] [place] [address] [place] [address] Stefania Oquendo MD Thigh pain, right (Primary Dx) 12/12/2013 Orders Only [facility] [address] [facility] [address] [place] [address] Kindra Wren MA Special screening for malignant neoplasms, colon (Primary Dx) 10/31/2013 Refill [facility] [place] [address] [place] [address] Mann Irene MD Medication Refill 10/24/2013 Telephone [facility] [address] [facility] [address] [place] [address] Edil Mann MD Reschedule (COLON) 10/11/2013 Telephone [facility] [place] [address] [place] [address] Mann Irene MD Results 10/07/2013 12:22 PM EDT - 10/07/2013 11:59 PM EDT Hospital Encounter EDG VASCULAR LAB [facility] [place] [address] Mann Irene MD Claudication (HCC) Discharge Disposition: Home or Self Care 10/07/2013 11:50 AM EDT - 10/07/2013 12:18 PM EDT Hospital Encounter [facility] [place] [address] Mann Irene MD Other screening mammogram Discharge Disposition: Home or Self Care 10/07/2013 12:19 PM EDT - 10/07/2013 12:21 PM EDT Hospital Encounter EDG ECHO [facility] [address] [place] [address] Mann Irene MD Heart murmur Discharge Disposition: Home or Self Care 09/26/2013 7:11 PM EDT - 09/26/2013 11:59 PM EDT Hospital Encounter EDG LAB LAURA PROCESSING [facility] [address] [place] [address] Hypercholesterolemia Discharge Disposition: Home or Self Care 09/26/2013 9:20 AM EDT Office Visit [facility] [address] [place] [address] Mann Irene MD Well adult exam (Primary Dx); Claudication (HCC); Other screening mammogram; Heart murmur; Screen for colon cancer; Hypercholesterolemia; Osteoarthritis 06/19/2013 Refill [facility]P [facility] [address] [place] [address] Mann Irene MD Medication Refill 04/27/2013 Telephone [facility] [address] [place] [address] Mann Irene MD Results 04/14/2013 9:10 AM EST - 04/14/2013 11:59 PM EST Hospital Encounter [facility] [address] [place] [address] Hyperlipidemia (Primary Dx) Discharge Disposition: Home or Self Care 04/06/2013 Orders Only [facility] [address] [place] [address] Mann Irene MD Hyperlipidemia (Primary Dx) 03/18/2013 3:00 PM EST Office Visit [facility] [address] [place] [address] Mnan Irene MD Osteoarthritis (Primary Dx); Other screening mammogram; Colon cancer screening 12/07/2012 Telephone [place] [address] [place] [address] Mann Irene MD Other (Was given some cream Thursday and is not helping seems worse please advise) 12/03/2012 4:00 PM EDT Office Visit [place] [address] [place] [address] Mann Irene MD Malar Rash (Primary Dx) 11/03/2012 12:00 PM EDT - 11/03/2012 1:58 PM EDT Surgery EDG PERIOP [facility] [place] [address] Elza Bautista MD LUMBAR LAMINECTOMY/DISCECTOMY (COVERS FACETECTOMY) 11/03/2012 8:17 AM EDT - 11/03/2012 3:51 PM EDT Hospital Encounter EDG SAME DAY SURGERY [facility] [place] [address] Elza Bautista MD Discharge Disposition: Home or Self Care 10/28/2012 10:43 AM EDT - 10/28/2012 11:59 PM EDT Hospital Encounter EDG PRE-ADMIT TESTING [facility] [place] [address] 2, Edg Pat Nurse Discharge Disposition: Home or Self Care 10/13/2012 11:40 AM EDT Office Visit [facility] [place] [address] [address] [place] [address] Mann Irene MD Poison samia (Primary Dx); Need for pneumococcal vaccination; Weight gain 09/21/2012 7:46 AM EDT - 09/21/2012 11:59 PM EDT Hospital Encounter [facility] [address] [place] [address] Mann Irene MD Low back pain Discharge Disposition: Home or Self Care 09/15/2012 Telephone [place] [address] [address] [place] [address] Mann Irene MD Other 09/13/2012 4:10 PM EDT - 09/13/2012 11:59 PM EDT Hospital Encounter EDG LAB LAURA PROCESSING [facility] [address] [place] [address] Well adult exam Discharge Disposition: Home or Self Care 09/13/2012 10:25 AM EDT - 09/13/2012 4:09 PM EDT Hospital Encounter [facility] [address] [place] [address] Low back pain Discharge Disposition: Home or Self Care 09/13/2012 8:30 AM EDT Office Visit [facility] [address] [place] [address] Mann Irene MD Low back pain (Primary Dx); Well adult exam 02/21/2004 10:34 AM EDT - 02/21/2004 11:59 PM EDT Hospital Encounter [facility] CTR WOM MOB Mann Barbosa MD 02/22/2003 10:02 AM EDT - 02/22/2003 11:59 PM EDT Hospital Encounter [facility] CTR WOM MOB EDG Mann Irene MD 11/21/2002 7:48 PM EDT - 11/21/2002 11:59 PM EDT Hospital Encounter HST LAB EDG Edil Mann MD 02/22/2002 11:31 AM EDT - 02/22/2002 11:59 PM EDT Hospital Encounter [facility] CTR WOM Luis Velazquez MD 07/27/2000 9:55 PM EST - 07/27/2000 10:46 PM EST Hospital Encounter [facility]ST MINOR ER EDG Flakito Rock MD 10/14/1999 5:50 PM EDT - 10/14/1999 11:59 PM EDT Hospital Encounter [facility] RADIOLOGY EDG Carlos Lopez MD 07/11/1999 3:44 PM EST - 07/11/1999 11:59 PM EST Hospital Encounter [facility] RADIOLOGY EDG Carlos Lopez MD 03/14/1998 2:27 PM EST - 03/14/1998 11:59 PM EST Hospital Encounter [facility] CTR WOM Luis Velazquez MD 12/25/1997 1:00 PM EDT - 12/27/1997 4:38 PM EDT Hospital Encounter HST 3B Ludwin Wang MD 04/28/1997 9:23 AM EST - 04/28/1997 11:59 PM EST Hospital Encounter [facility] CTR WOM WEL Luis Turk MD 04/17/1994 2:58 PM EST - 04/17/1994 11:59 PM EST Hospital Encounter HST EPIC CON UNK EDG Harjeet Celis Allergies Active Allergy Reactions Criticality Noted Date Comments Celecoxib Rash High 02/16/2014 [place] Rash 01/01/2023 Medications meloxicam (MOBIC) 15 mg Oral TabletIndications:S kathy stenosis of lumbar region, unspecified whether neurogenic claudication present,DDD (degenerative disc disease), lumbar,Osteoporosis , unspecified osteoporosis type, unspecified pathological fracture presence,Neuroforam inal stenosis of lumbar spine,Lumbar pain,Right sided sciatica Take 1 Tablet by mouth daily. 90 Tablet 2 4 Active aspirin 81 mg Oral Tablet, Delayed Release (E.C.) Take 1 Tablet by mouth every morning. 90 Tablet 2 4 Active lisinopriL (PRINIVIL;ZESTRIL) 20 mg Oral Tablet tabletIndications:E ssential hypertension Take 1 Tablet by mouth daily for 360 days. 90 Tablet 3 4 08/23/19 25 Active famotidine (PEPCID) 40 mg Oral TabletIndications:G ERD without esophagitis TAKE 1 TABLET BY MOUTH 2 TIMES DAILY FOR 90 DAYS. 180 Tablet 3 4 Active atorvastatin (LIPITOR) 20 mg Oral TabletIndications:H ypercholesterolemia Take 1 Tablet by mouth daily for 360 days. 90 Tablet 3 4 11/06/19 25 Active nortriptyline (PAMELOR) 25 mg Oral CapsuleIndications: Spinal stenosis of lumbar region, unspecified whether neurogenic claudication present,DDD (degenerative disc disease), lumbar,Osteoporosis , unspecified osteoporosis type, unspecified pathological fracture presence,Neuroforam inal stenosis of lumbar spine,Lumbar pain,Right sided sciatica TAKE 1 CAPSULE IN THE MORNING AND 1 CAPSULE AT DINNER 180 Capsule 3 4 Active ergocalciferol (DRISDOL) 1,250 mcg (50,000 unit) Oral CapsuleIndications: Age-related osteoporosis without current pathological fracture Take 1 Capsule by mouth once a week. 12 Capsule 3 4 Active gabapentin (NEURONTIN) 300 mg Oral CapsuleIndications: Osteoporosis, unspecified osteoporosis type, unspecified pathological fracture presence,Spinal stenosis of lumbar region, unspecified whether neurogenic claudication present,Neuroforami nal stenosis of lumbar spine,Lumbar radiculopathy Take 1 Capsule by mouth nightly for 30 days. 30 Capsule 2 4 03/16/20 24 Active Problems Patient Care Coordination No te Formatting of this note migh t be different from the original. [facility] - Clay Ness MD Controlled Substance Protocol Completed: Gabapentin and/or Pregabalin A. Informed Consent Statement signed (Yearly) ( Needs ) B. Controlled Substance Agreement signed (Yearly) ( Needs ) D. Osei report completed (EVERY 3 MONTHS) ( 02/09/24 ) Pharmacy: [id number] [place] [address] - [address] [place] [address] [[id number]] Spine Center additional info ( NS 09/15/23 SNC 10/28/23 -Letter sent 10/28/23 ) Problem Noted Date Diagnosed Date Chronic diastolic (congestive) heart failure 10/2023 Overview (07/15/2023): Echo 2021: Result Text IMPRESSION Conclusions * Left ventricular chamber dimension is normal. * Left ventricular function is normal with an estimated ejection fraction of 60-65%. * Left ventricular segmental wall motion is normal. * The left ventricular diastolic function is consistent with stage I diastolic dysfunction (normal left atrial pressure). * Right ventricular systolic function is normal. * Estimated pulmonary artery systolic pressure is 31 mmHg Assessment & Plan (11/09/2023 11:16 AM EDT): Will evaluate further with BNP If elevated BNP >300 and symptomatic, consider addition of SGLT-2 and spironolactone Assessment & Plan (07/15/2023 10:25 AM EST): Will evaluate further with BNP If elevated BNP >300 and symptomatic, consider addition of SGLT-2 and spironolactone Mixed conductive and sensori neural hearing loss of left ear with restricted hearing of right ear 02/26/2023 Overview (02/26/2023): Evaluated by ENT Referred for hearing aide Sensorineural hearing loss ( SNHL) of left ear with restricted hearing of right ear 02/26/2023 Overview (02/26/2023): Evaluated by ENT Referred for hearing aide Spinal stenosis of lumbar re gion without neurogenic claudication 02/16/2023 Overview (05/13/2023): IMAGING: MRI shows the patient have neuroforaminal stenosis at L3-4 and L4-5, severe. L3-4 and to a lesser extent L4-5 with stenosis. Multilevel degenerative changes at other levels. Follows with ortho who recommended: right L3-4 epidural steroid injection. Ultimately the patient is likely to need surgical procedure. Ortho wants patient bone health to be better prior to surgery. Ortho started patient on gabapentin 03/2023 ortho: prolia , Vitamin D 5k qd, dietary calcium 1200 a day. Weight bearing exercise 25 minutes a day. [place] 300 qhs, Pamelor 25 bid. [place] 5 q8 prn #15. Miky Webb MD [facility] [phone] GERD without esophagitis 01/16/2023 Age-related osteoporosis wit hout current pathological fracture 12/19/2022 Overview (12/19/2022): -rheumatoid arthritis Has used or is currently using the following medications: Vitamin D, Diuretic Has had or currently has the following medical conditions: Back pain, Vitamin D Insufficiency Patient maximum height was 62.3 Menopause Age: 26 postmenopausal DEXA 2022: Interpretation: Bone mineral density is in the osteoporotic range. Spine previously omitted due to hypertrophic change. The left hip bone mineral density is significantly increased since the last exam. Although not approved for monitoring therapy the forearm bone mineral density is not significantly changed since the last exam. Essential hypertension 07/14/2022 Assessment & Plan (11/09/2023 11:16 AM EDT): Goal BP: <140/90 in office and <135/85 at home - at goal Medication Management: - a reassessment of the patients current diagnoses, medications, labs, potential SE, appropriate dose and risks assessed and discussed today Continue lisinopril Assessment & Plan (04/06/2023 12:02 PM EST): Goal BP: <140/90 in office and <135/85 at home - not at goal Medication Management: - medication management decisions took place at today's visit (see orders) -increase lisinopril dose to 20mg Assessment & Plan (11/07/2022 11:03 AM EDT): Goal BP: <140/90 in office and <135/85 at home - at goal Compliance: - compliant with medications Medication Management: - a reassessment of the patients current diagnoses, medications, labs, potential SE, appropriate dose and risks assessed and discussed today Assessment & Plan (07/28/2022 10:01 AM EDT): Goal BP : < 140/90 - at goal Compliance: - taking medications as prescribed. Advice: - continue a low salt diet and remain physically active Self Monitoring:- continue BP monitoring as previous Medication Management: - a reassessment of the patients current diagnoses, medications, labs, potential SE, appropriate dose and risks assessed and discussed today Assessment & Plan (07/14/2022 10:27 AM EST): Goal BP : < 140/90 - not at goal Compliance: - taking medications as prescribed. Advice: - increased physical activity - DASH diet (consume a diet rich in fruits, vegetables, whole grains, and low- fat dairy products, with reduced content of saturated and total fat) Self Monitoring:- continue BP monitoring as previous Medication Management: - medication management decisions took place at today's visit (see orders) -chronic pressures, will lower over days rather than hours -increased lisinopril from 10mg to 20mg due to readings at home. -keep BP log for two weeks -follow up in office with BP log -check renal function at that time Thyroid cyst 03/30/2022 Overview (07/14/2022): 03/30/22 Thyroid US: Nodule #1: Location: Posterior RIGHT upper pole Size: 0.6 x 0.5 x 0.5 cm Prior measurement None. Composition: Mixed cystic and solid. 1 Point. Echogenicity: Hypoechoic (equal to or more echogenic than strap muscles.) 2 points. Shape: Not taller than wide. 0 points. Margin: Smooth. 0 points. Echogenic foci: None or large comet-tails. 0 points. Total points: 3 points. TI-RADS category 3. FNA if 2.5cm or greater in longest dimension. Follow in 1, 3, and 5 years if 1.5-2.4 cm in longest dimension. ?? Nodule #2: Location: Posterior RIGHT lower pole Size: 0.8 x 0.5 x 0.5 cm Prior measurement None. Composition: Spongiform. 0 points. Echogenicity: N/A Shape: N/A Margin: N/A Echogenic foci: N/A Total points: 0 Points. TI-RADS category 1. No FNA or follow-up suggested. ?? Nodule #3: Location: LEFT lateral Size: 0.7 x 0.4 x 0.4 cm Prior measurement None. Composition: Spongiform. 0 points. Echogenicity: N/A Shape: N/A Margin: N/A Echogenic foci: N/A Total points: 0 Points. TI-RADS category 1. No FNA or follow-up suggested. ?? Nodule #4: Location: LEFT lateral Size: 1.1 x 0.7 x 0.8 cm Prior measurement None. Composition: Cystic or almost completely cystic. 0 points. Echogenicity: Anechoic. 0 points. Shape: Not taller than wide. 0 points. Margin: Smooth. 0 points. Echogenic foci: None or large comet-tails. 0 points. Total points: 0 Points. TI-RADS category 1. No FNA or follow-up suggested. IMPRESSION: Multiple small and benign-appearing thyroid nodules. Assessment & Plan (11/07/2022 11:04 AM EDT): Repeat ultrasound around 03/2023 Assessment & Plan (07/14/2022 10:25 AM EST): Given the sizes and recommendations, no further assessment needed at this time. Consider repeat ultrasound in 1 year (03/2023) Recurrent syncope 03/28/2022 Overview (04/06/2023): -Multiple episodes w/o prodrome; including hospitalization for syncope in 03/2022 -03/2022 CONCLUSION: Sinus rhythm with atrial premature beats. On 04/24/22 there were several episodes of aststole with AV junctional escape beats. The longest pause was 12.8 seconds, other pauses were as long as 6.3 and 3.8 seconds -Echo 03/2022: IMPRESSION Conclusions * Left ventricular chamber dimension is normal. * Left ventricular function is normal with an estimated ejection fraction of 60-65%. * Left ventricular segmental wall motion is normal. * The left ventricular diastolic function is consistent with stage I diastolic dysfunction (normal left atrial pressure). * Right ventricular systolic function is normal. * Estimated pulmonary artery systolic pressure is 31 mmHg. CUS mild stenosis Assessment & Plan (04/06/2023 12:01 PM EST): Reviewed hospital stay. Reviewed echo, CUS, and holter monitor. Does not appear the syncope is cardiovascular etiology. Some concern given the loss of bladder control that syncope could be related to seizure activity Assessment & Plan (04/17/2022 11:23 AM EST): ? Due to blood sugars. Last meal/snack of the day around 9 PM. She goes to bed around 11 pm, gets up around 4 am. Was generally not eating in the mornings. 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 Now she is eating and feels the syncopal episodes have decreased. Will ask nursing to set her up to check blood sugars in the AM when she gets up. 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 No new interventions today. Assessment & Plan (01/27/2022 11:17 AM EDT): Managed by ophthalmology. Bilateral carotid artery stenosis 11/01/2021 Overview (07/27/2023): 2021: * The right internal carotid artery demonstrates high end 1-39% stenosis. * The left internal carotid artery demonstrates 1-39% mild stenosis. 2023:IMPRESSION * There is a right proximal internal carotid artery mildly obstructive lesion noted, with an estimated high end 1-39% stenosis. * There is a left proximal internal carotid artery mildly obstructive lesion noted, with an estimated 1-39% stenosis. * Antegrade flow visualized in the bilateral vertebral artery. Assessment & Plan (11/09/2023 11:15 AM EDT): stable Assessment & Plan (08/06/2023 9:43 AM EDT): stable Assessment & Plan (07/15/2023 7:52 AM EST): Repeat carotid US to monitor for progression Assessment & Plan (11/07/2022 11:03 AM EDT): Needs repeat US around 2023 Bilateral nonexudative age-related macular degen eration 03/09/2020 Presence of left artificial knee joint 9 OA (osteoarthritis)-s/p RIGH T TOTAL HIP REPLACEMENT 02/16/14. 02/16/2014 Hypercholesterolemia 09/26/2013 Resolved Problems Problem Noted Date Diagnosed Date Resolved Date UTI (urinary tract infection) 03/30/2022 07/14/2022 Bilateral carotid artery stenosis 03/30/2022 04/17/2022 Nephrolithiasis 12/19/2019 11/07/2022 Overview (12/19/2019): Added automatically from request for surgery [id number] Urine culture positive 11/17/201902/05 Overview (11/17/2019): Added automatically from request for surgery [id number] Hematuria 10/11/2019 07/14/2022 Overview (10/11/2019): Added automatically from request for surgery [id number] Hyperosmolality and hypernatremia 12/31/2018 07/14/2022 Pre-op examination 12/06/2018 9 Assessment & Plan (12/06/2018 11:24 AM EDT): Revised Faustin Cardiac Risk Index (Circulation 1999; 100: 3970-4775) 1. High risk surgical procedures (intraperitoneal, intrathoracic, suprainguinal vascular) No 2. History of ischemic heart disease (history of myocardial infarction, history of positive exercise test, current complaint of chest pain considered to be due to ischemia, use of nitrate therapy, EKG with pathological Q waves) No 3. History of congestive heart failure (history of congestive heart failure, pulmonary edema, paroxysmal nocturnal dyspnea, bilateral rales or S3 gallop) No 4: History of cerebrovascular disease (history of transient ischemic attack or stroke) No 5. Preoperative treatment with insulin No 6. Preoperative serum creatinine >2.0 mg/dl No Each risk Factor is assigned one point. Total Points Zero Risk of a Major Cardiac Event Points Class Risk 0 I 0.4% 1 II 0.9% 2 III 6.6% 3 or more IV 11% Major cardiac event includes myocardial infarction, pulmonary edema, ventricular fibrillation, primary cardiac arrest and complete heart block. Cleared for Hip Replacement Surgery. Other physical therapy 02/21/201402/05 Hypernatremia 02/16/2014 02/21/2019 Immunizations Name Administration Dates Next Due Influenza High Dose 01/28/2020, 9,01/06/2017,02/08,02/21/2015 Influenza Vaccine Quadrivale nt Adjuvanted 03/29/2022,01/28/2020 Influenza Vaccine, Unspecifi ed Formulation 02/09/2016,02/04/2014 PPD Test 02/20/2014 Prized SARS-CoV-2 Vaccine Tr is-sucrose 12+ Yrs 08/06/2023 Pneumococcal Conjugate Vacci ne 13 Valent 02/28/2015 Pneumococcal Polysaccharide 23 Valent 10/13/2012 Quadrivalent Influenza High Dose 02/05/2021 TST,Unspecified Formulation 01/07/2019, 9 Tdap 02/28/2015 Family History Medical History Relation Name Comments Early Brother accident Early Father accident Early Mother accident Early Sister Substance Abuse Sister Anesth Problems Neg Hx Relation Name Status Comments Brother Father Mother Sister Social History Smoking Status as of 03/27/2024 Tobacco Use Types Packs/Day Years Used Date Smoking Tobacco: Never Assessed Overall Financial Resource Strain (CARDIA) Answe r Date Recorded How hard is it for you to pa y for the very basics like food, housing, medical care, and heating? Somewhat hard 02/27/2023 PHQ-2 Answer Date Recorded PHQ-2 Total Score 0 11/09/2023 [facility] - Occupational Stress Questionnaire Answer Date Recorded Do you feel stress - tense, restless, nervous, or anxious, or unable to sleep at night because your mind is troubled all the time - these days? Only a little 11/07/2022 Hunger Vital Sign Answer Date Recorded Within the past 12 months, y ou worried that your food would run out before you got the money to buy more. Sometimes true Within the past 12 months, t he food you bought just didn't last and you didn't have money to get more. Sometimes true PRAPARE - Transportation Answer Date Re corded In the past 12 months, has l ack of transportation kept you from medical appointments or from getting medications? Yes 02/09 In the past 12 months, has l ack of transportation kept you from meetings, work, or from getting things needed for daily living? Yes 02/27/2023 Housing Stability Vital Sign Answer Robles e Recorded In the last 12 months, was t here a time when you were not able to pay the mortgage or rent on time? No 11/12/2022 In the last 12 months, how many places have you lived? 1 11/12/2022 In the last 12 months, was t here a time when you did not have a steady place to sleep or slept in a senior living (including now)? No 11/12/2022 Sex and Gender Information Value Date Recorded Sex Assigned at Not on file Legal Sex Female 5:30 PM EDT Gender Identity Not on file Sexual Orientation Not on file Last Filed Vital Signs Vital Sign Reading Time Taken Comments Blood Pressure 130/90 11/09/2023 10:29 AM EDT Pulse 95 02/15/2024 7:53 AM EDT Temperature 36.8 ??C (98.2 ??F) 11/09/2023 10:29 AM E DT Respiratory Rate 18 11/09/2023 10:29 AM EDT Oxygen Saturation 98% 02/15/2024 7:53 AM EDT Inhaled Oxygen Concentration - - Weight 68.9 kg (152 lb) 02/15/2024 7:53 AM EDT Height 152.4 cm (5') 07/28/2023 9:18 AM EDT Body Mass Index 29.69 07/28/2023 9:18 AM EDT Plan of Treatment Upcoming Encounters Date Type Department Care Team (Late st Contact Info) Description 05/16/2024 9:30 AM EST Office Visit [facility] [address] [place] [address] Gilda Francis PA [address] [place] [address] Medical Devices Implanted Type Area Cycle Counter Device Identifier Shelf Expiration Date Model / Serial / Lot Stent Contour 6 X 24 #[id number] - [id number] Implanted:Qty: 1 on 01/02/2020 by Amari Wheeler MD at [facility] Stent Right: Ureter [employer]:MICROVASIVE: UROLOGY [id number] / / [id number] Head V40 Ceramic Delta Biolox 36mm/-2.5 - [id number] Implanted:Qty: 1 on 02/16/2014 by Bruce Oh MD at [facility] Right: Hip KYLEE:ORTHOPED ICS 01/08/2019 6570-0-43 6 / / [id number] Stem Femoral Accolade Ii 127 Degree Size 5 - [id number] Implanted:Qty: 1 on 02/16/2014 by Bruce Oh MD at [facility] Right: Hip KYLEE:ORTHOPED [facility] 02/07/2019 [id number] / / [id number] Insert Trident X 3 0 Degree 36mm D - [id number] Implanted:Qty: 1 on 02/16/2014 by Bruce Oh MD at [facility] Right: Hip KYLEE:ORTHOPED [facility] 01/08/2019 623-00-36 D / / [id number] Screw Bone Cancellous 6.5mm X 30mm - [id number] Implanted:Qty: 1 on 02/16/2014 by Bruce Oh MD at [facility] Right: Hip KYLEE:ORTHOPED [facility] 02/07/2019 [id number] -1 / / [id number] Shell Acetabular Hole Cluster Hemispherical Tritanium D 52mm - [id number] Implanted:Qty: 1 on 02/16/2014 by Bruce Oh MD at [facility] Right: Hip KYLEE:ORTHOPED [facility] 11/07/2018 502-03-52 D / / [id number] Cmpnt Fem 3 Kn Lt Crcte Rtn Bead Trthln Pa - [id number] Implanted:Qty: 1 on 12/28/2018 by Bruce Oh MD at [facility] Left: Knee KYLEE:ORTHOPED [facility] 10/14/2023 [id number] / / [id number] Patella Backed Metal Tritanium Asymmetric A 35 X 10 - [id number] Implanted:Qty: 1 on 12/28/2018 by Bruce Oh MD at [facility] Left: Knee KYLEE:ORTHOPED [facility] 05/18/2023 5552-L-35 0 / / [id number] Insert Bearing Tibial Cs Triathlon X 3 Sz 4-11mm - [id number] Implanted:Qty: 1 on 12/28/2018 by Bruce Oh MD at [facility] Left: Knee KYLEE:ORTHOPED [facility] 10/04/2023 [id number] / / [id number] Bsplt Tib Trthln 4 Kn Tritanium - [id number] Implanted:Qty: 1 on 12/28/2018 by Bruce Oh MD at [facility] Left: Knee KYLEE:ORTHOPED ICS 10/11/2023 5536-B-40 0 / / [id number] Lens Intraocular Preloaded 19.0 Diopter - [id number] Implanted:Qty: 1 on 02/28/2019 by Conor Ramirez MD at [facility] Right: Eye [facility] [facility]:SURG 11/07/2021 AU00T0.19 0 / [id number] / Lens Intraocular Preloaded 20.0 Diopter - [id number] Implanted:Qty: 1 on 03/14/2019 by Conor Ramirez MD at [facility] Left: Eye [facility]:SURG 08/08/2021 AU00T0.20 0 / [id number] / [id number] Explanted Type Area Cycle Counter Device Identifier Shelf Expiration Date Model / Serial / Lot Stent Contour 6 X 24 #[id number] - [id number] Implanted:Qty: 1 on 11/28/2019 by Amari Wheeler MD at [facility] Explanted:Qty: 1 on 01/02/2020 by Amari Wheeler MD at [facility] Stent Ureter [employer]:MICROVASIVE:U ROLOGY 02/10/2022 [id number] / / [id number] Procedures Procedure Name Priority Date/Time Associated Diagnosis Comments VITAMIN D 25 HYDROXY Routine 11/09/2023 11:21 AM EDT Vitamin D deficiency CBC WITH DIFF Routine 11/09/2023 11:21 AM EDT Medicare annual wellness visit, subsequent LIPID SCREEN Routine 11/09/2023 11:21 AM EDT Screening for hyperlipidemia BASIC METABOLIC PANEL Routine 11/09/2023 11:21 AM EDT Screening for diabetes mellitus NT PROBNP Routine 11/09/2023 11:21 AM EDT Chronic diastolic (congestive) heart failure (HCC) XR CERVICAL SPINE AP AND LATERAL Routine 08/12/2023 1:11 PM EDT Cervicalgia VA US CAROTID DUPLEX BILATERAL Routine 07/23/2023 10:47 AM EDT PVD (peripheral vascular disease) (HCC) Bilateral carotid artery stenosis XR FOOT RIGHT AP LATERAL AND OBLIQUE Routine 07/06/2023 2:05 PM EST Acute foot pain, right EEG AWAKE AND ASLEEP Routine 04/15/2023 10:09 AM EST Recurrent syncope COMPREHENSIVE METABOLIC PANEL Routine 04/06/2023 11:41 AM EST Recurrent syncope CBC WITH DIFF Routine 04/06/2023 11:41 AM EST Recurrent syncope POCT EKG Routine 04/06/2023 11:22 AM EST Recurrent syncope XR THORACIC SPINE AP AND LATERAL Routine 01/23/2023 10:40 AM EDT Thoracic spine pain DX BONE DENSITY AXIAL INCLUDING VERTEBRAL FRACTURE ASSESSMENT Routine 12/19/2022 10:09 AM EDT Screening for osteoporosis Postmenopausal KS ARTHROCENTESIS ASPIR&/INJ MAJOR JT/BURSA W/O US Routine 12/03/2022 10:45 AM EDT Primary osteoarthritis of right knee MRI LUMBAR SPINE WO CONTRAST Routine 11/03/2022 11:44 AM EDT History of right hip replacement Right knee pain, unspecified chronicity XR KNEE RIGHT AP LATERAL AND SUNRISE STANDING Routine 10/22/2022 2:22 PM EDT Right knee pain, unspecified chronicity XR LUMBAR SPINE AP AND LATERAL Routine 10/22/2022 1:59 PM EDT History of right hip replacement XR HIP RIGHT AP LATERAL W AP PELVIS Routine 10/22/2022 1:58 PM EDT History of right hip replacement KS ARTHROCENTESIS ASPIR&/INJ MAJOR JT/BURSA W/O US Routine 10/22/2022 1:45 PM EDT Right knee pain, unspecified chronicity MM MAMMO DIGITAL VIVIANA SCREEN BILAT Routine 07/28/2022 11:27 AM EDT Encounter for screening mammogram for malignant neoplasm of breast URINE CULTURE (NO STAIN) Routine 07/28/2022 10:34 AM EDT Dysuria BASIC METABOLIC PANEL Routine 07/28/2022 9:34 AM EDT Essential hypertension SEP URINALYSIS POC Routine 07/28/2022 9:14 AM EDT Dysuria SEP URINALYSIS POC Routine 07/28/2022 9:09 AM EDT Dysuria SEP URINALYSIS POC Routine 07/09/2022 2:20 PM EST TSH REFLEX Routine 07/09/2022 2:01 PM EST Hypertensive urgency COMPREHENSIVE METABOLIC PANEL Routine 07/09/2022 2:01 PM EST Hypertensive urgency CBC WITH DIFF Routine 07/09/2022 2:01 PM EST Hypertensive urgency POCT EKG Routine 07/09/2022 1:37 PM EST Hypertensive urgency SCANNED RADIOLOGY REPORT 04/04/2022 3:50 PM EST EV EVENT MONITOR Routine 04/04/2022 10:26 AM EST Syncope, unspecified syncope type SCANNED EKG 04/02/2022 3:30 PM EST ADMIT Routine 04/01/2022 11:53 AM EST ECG AND WAVEFORMS - TELEMETRY Routine 04/01/2022 7:03 AM EST ECG AND WAVEFORMS - TELEMETRY Routine 03/31/2022 6:59 PM EST EC ECHOCARDIOGRAM COMPLETE W DOPPLER AND COLOR FLOW MAPPING Routine 03/31/2022 1:40 PM EST NM MYOCARDIAL PERFUSION SPECT STRESS AND REST SIVA 03/31/2022 1:[address] STRESS TEST LEXISCAN Routine 03/31/2022 12:32 PM EST ECG AND WAVEFORMS - TELEMETRY Routine 03/31/2022 7:06 AM EST ECG AND WAVEFORMS - TELEMETRY Routine 03/30/2022 5:38 PM EST US THYROID SIVA 03/30/2022 3:36 PM EST CBC WITH DIFF Early AM 03/30/2022 3:02 PM EST D-DIMER Early AM 03/30/2022 3:02 PM EST PROCALCITONIN Early AM 03/30/2022 3:02 PM EST LHFT-YOF7-PGP-RSV Routine 03/30/2022 9:53 AM EST ECG AND WAVEFORMS - TELEMETRY Routine 03/30/2022 7:00 AM EST ECG AND WAVEFORMS - TELEMETRY Routine 03/29/2022 7:02 PM EST ECG AND WAVEFORMS - TELEMETRY Routine 03/29/2022 12:57 PM EST IP CONSULT TO CARDIOLOGY Routine 03/29/2022 8:40 AM EST Procedure Note - Fredi Nick MD - 03/30/2022 11:55 AM ESTThis note is in progress. Heart & Vascular Consult Note PATIENT: Stella Hylton PCP: Mann Irene MD Primary Dean: Dr. mccurdy Reason for consult: syncope x3 History provided by: pt, EMR History limited by: nothing HPI: 76 yo past smoker female hx: HLD Adm for syncope x3. 1st episode was about 3 wks ago. 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 No prodrome. Was out for a few secs and came to. She hadincontinence of urine. Denies CP or SOB w this episode. No seizureactivity noted. She saw her PCP And had a 2 day Holter that wasunremarkable. The 2nd episode, she was sitting on her couch at home. St she passed outslumping forward but did not fall. Again she had incontinence. Unsure howlong she was out. No prodrome. The 3rd episode she had finisher her bus monitoring and was driving out ofthe parking lot. She was stopped waiting for traffic to clear and awoke inthe parking lot across the street. The curb stopped the car. No prodrome.She again had urinary incontinence. She reports exertional SOL and sweating for several months. Trop neg EKG SR NSSTTWA Past Medical History Past Medical History: Diagnosis Date ? ? Allergy ? ? Arthritis generalized ? ? Does use hearing aid bilateral ? ? Hyperlipidemia ? ? Kidney stone hx of ? ? Motion sickness seasick ? ? Osteopenia ? ? Post-operative nausea and vomiting ? ? Urinary tract infection frequent UTI's Medication ? ? aspirin 81 mg Oral QAM ? ? atorvastatin 10 mg Oral Nightly ? ? cefTRIAXone (ROCEPHIN) IVPB (Orderable) 2 g Intravenous Daily ? ? pantoprazole (PROTONIX) 40 mg Intravenous Daily Or ? ? pantoprazole 40 mg Oral Daily acetaminophen, HYDROcodone-acetaminophen, ondansetron OR ondansetronOR metoclopramide HCl, morphine OR morphine, sodium chloride 0.9%,sodium chloride 0.9% Past Surgical History Past Surgical History: Procedure Laterality Date ? ? BLADDER TUMOR EXCISION N/A 10/26/2019 cystoscopy, bladder biopsy and fulguration of lesions of bladder;Surgeon: Amari Wheeler MD; Location: [facility] MAIN OR; Service: Urology ? ? CATARACT REMOVAL Right 02/28/2019 RIGHT EYE CATARACT EXTRACTION WITH PHACOEMULSIFICATION AND INTRAOCULARLENS; Surgeon: Conor Ramirez MD; Location: [facility];Service: Ophthalmology ? ? CATARACT REMOVAL Left 03/14/2019 LEFT EYE CATARACT EXTRACTION WITH PHACOEMULSIFICATION AND INTRAOCULARLENS; Surgeon: Conor Ramirez MD; Location: [facility];Service: Ophthalmology ? ? COLONOSCOPY ? ? CYSTOSCOPY Right 11/28/2019 cystoscopy right stent placement, right extracorporeal shock wavelithotripsy; Surgeon: Amari Wheeler MD; [facility]: [facility];Service: Urology ? ? HEMORRHOID SURGERY ? ? HIP ARTHROPLASTY Right 02/16/2014 RIGHT TOTAL HIP REPLACEMENT; Surgeon: Bruce Oh MD; Location:[facility]; Service: Orthopedics ? ? HYSTERECTOMY complete ? ? LITHOTRIPSY Right 11/28/2019 Surgeon: Amari Wheeler MD; Location: [facility]; Service: Urology ? ? LUMBAR DISC SURGERY 11/03/2012 Surgeon: Elza Bautista MD; Location: [facility]IN OR; Service: ? ? TOTAL KNEE ARTHROPLASTY Left 12/28/2018 left knee total replacement; Surgeon: Bruce Oh MD; Location:[facility]IN OR; Service: Orthopedics ? ? URETEROSCOPY Right 01/02/2020 cystoscopy, Right Flexible Ureteroscopy, Retrograde, Stent Exchange,Laser Lithotripsy, Basket Retrieval of stone fragments; Surgeon: Amari Wheeler MD; Location: [facility]IN OR; Service: Urology Allergy Allergies Allergen Reactions ? ? Celecoxib Rash Family History Family History Problem Relation Age of Onset ? ? Early Father accident ? ? Early Sister ? ? Substance Abuse Sister ? ? Early Brother accident ? ? Early Mother accident ? ? Anesth Problems Neg Hx Social History Social History Tobacco Use ? ? Smoking status: Former Packs/day: 0.50 Years: 5.00 Pack years: 2.50 Types: Cigarettes Quit date: 1994 Years since quittin.9 ? ? Smokeless tobacco: Never ? ? Tobacco comments: quit in 1998 Substance Use Topics ? ? Alcohol use: No Review of Systems No headache,+ LOC, no fever, no chills, no cough, no nausea, no vomiting,no diarrhea, no burning micturation, no seizures, all other symptomsnegative and reviewed by me. Objective: Telemetry: SR 03/30/2022 Last BP: BP: 142/81 Last pulse: Pulse: 74 Last resp: Resp: 18 Last temp: Temp: 98 ??F (36.7 ??C) Last SpO2: SpO2: 98 % Exam: Pt in no distress. Lymph/Neck supple, no enlarged nodes or masses CVS - S1, S2 RRR, no edema RS - No rales, no rhonchi GI/Abd - soft, NT, +BS Neuro- Alert and oriented Psych- Mood and affect appropriate Skin warm, dry, no rashes Diagnostic tests Pertinent laboratory test have been reviewed The most recent cardiovascular imaging studies availabe in [facility] EMR werereviewed at time of consultation Assessment & Plan Active Hospital Problems Diagnosis ? ? *Syncope, unspecified syncope type ? ? Hypercholesterolemia 1. Mult episodes syncope- all while sitting without prodrome. Urinaryincontinence w all episodes -Recent 2 day Holter was Neg -tele stable -orthostatics neg -echo pending -Carotids pending 2. exertional SOL w sweating -trop neg -EKG SR w NSSTTWA -perla myoview in AM Plan: ?? Monitor tele ?? kendrick myoview in AM ?? 30 day EM at d/c if tele unrevealing ?? Advised not to drive until cause of syncope found Further input from Dr. Nick Thank you for the consult. We will follow with you. Sundeep Chan APRN I have reviewed the chief complaint and history of present illness andreview of systems as well as the past medical/social/family historysections for this patient. I have examined this patient, and participatedin the care of this patient. I have reviewed the pertinent clinicalinformation including physical exam, labs, radiographic and echo studies,and the plan. The patient was seen in coordination with the nursepractitioner. Fredi Nick MD [facility] CARDIOLOGY CONSULT Chief Complaint Patient presents with ? ? Loss of Consciousness Pt had same episode x2 wks ago and placed on holter monitor which wasnegative. Pt had same episode yest. Referring MD: referred by Dr Byrd HPI: Stella Hylton presents with syncope and collapse 3 recent syncopal episodes. No prodrome incontinence of urine eachepisode No seizure activity or post ictal state Benign 48 hour Holter Monitor Exertional dyspnea and diaphoresis Former smoker ROS: Denies chest pain, SOB/orthopnea/PND, cough, palpitations, dizziness,edema or claudication, fever/chills, visual changes, paresthesias,myalgias, arthralgias, weight change, N/V/diarrhea, hematochezia, melena,dysuria, polyuria, polydipsia or night sweats. Allergies Allergen Reactions ? ? Celecoxib Rash Medications Prior to Admission Medication Sig Dispense Refill Last Dose ? ? aspirin 81 mg Oral Tablet, Delayed Release (E.C.) Take 1 Tab by mouthevery morning. 03/28/2022 ? ? atorvastatin (LIPITOR) 10 mg Oral Tablet TAKE 1 TABLET BY MOUTH EVERYDAY 90 Tablet 0 03/28/2022 ? ? ergocalciferol (DRISDOL) 1,250 mcg (50,000 unit) Oral Capsule TAKE 1CAPSULE BY MOUTH ONE TIME PER WEEK 12 Cap 3 03/28/2022 ? ? ipratropium (ATROVENT) 21 mcg (0.03 %) Nasl [place], Non-Aerosol 2 Spraysby Nasal route 3 times daily. 30 mL 2 Taking ? ? loperamide (IMODIUM) 2 mg Oral Capsule Take 1 Capsule by mouth 4 timesdaily as needed for Diarrhea. 40 Capsule 0 Taking ? ? loratadine-pseudoephedrine (ALLERGY RELIEF D-24HR) 10-240 mg Oral TabletSustained Release 24 hr TAKE 1 TABLET BY MOUTH EVERY DAY NOT COVERED30 Tablet 2 03/28/2022 Past Medical History: Diagnosis Date ? ? Allergy ? ? Arthritis generalized ? ? Does use hearing aid bilateral ? ? Hyperlipidemia ? ? Kidney stone hx of ? ? Motion sickness seasick ? ? Osteopenia ? ? Post-operative nausea and vomiting ? ? Urinary tract infection frequent UTI's Past Surgical History: Procedure Laterality Date ? ? BLADDER TUMOR EXCISION N/A 10/26/2019 cystoscopy, bladder biopsy and fulguration of lesions of bladder;Surgeon: Amari Wheeler MD; Location: [facility]; Service: Urology ? ? CATARACT REMOVAL Right 02/28/2019 RIGHT EYE CATARACT EXTRACTION WITH PHACOEMULSIFICATION AND INTRAOCULARLENS; Surgeon: Conor Ramirez MD; Location: [facility];Service: Ophthalmology ? ? CATARACT REMOVAL Left 03/14/2019 LEFT EYE CATARACT EXTRACTION WITH PHACOEMULSIFICATION AND INTRAOCULARLENS; Surgeon: Conor Ramirez MD; [facility]Service: Ophthalmology ? ? COLONOSCOPY ? ? CYSTOSCOPY Right 11/28/2019 cystoscopy right stent placement, right extracorporeal shock wavelithotripsy; Surgeon: Amari Wheeler MD; Location: [facility] MAIN OR;Service: Urology ? ? HEMORRHOID SURGERY ? ? HIP ARTHROPLASTY Right 02/16/2014 RIGHT TOTAL HIP REPLACEMENT; Surgeon: Bruce Oh MD; Location:[facility]; Service: Orthopedics ? ? HYSTERECTOMY complete ? ? LITHOTRIPSY Right 11/28/2019 Surgeon: Amari Wheeler MD; Location: [facility]; Service: Urology ? ? LUMBAR DISC SURGERY 11/03/2012 Surgeon: Elza Bautista MD; Location: [facility] OR; Service: ? ? TOTAL KNEE ARTHROPLASTY Left 12/28/2018 left knee total replacement; Surgeon: Bruce Oh MD; Location:[facility] OR; Service: Orthopedics ? ? URETEROSCOPY Right 01/02/2020 cystoscopy, Right Flexible Ureteroscopy, Retrograde, Stent Exchange,Laser Lithotripsy, Basket Retrieval of stone fragments; Surgeon: Amari Wheeler MD; Location: [facility]; Service: Urology Family History Problem Relation Age of Onset ? ? Early Father accident ? ? Early Sister ? ? Substance Abuse Sister ? ? Early Brother accident ? ? Early Mother accident ? ? Anesth Problems Neg Hx SOCIAL HISTORY: reports that she quit smoking about 27 years ago. Hersmoking use included cigarettes. She has a 2.50 pack-year smoking history.She has never used smokeless tobacco. She reports that she does not drinkalcohol and does not use drugs. Vitals: BP Readings from Last 4 Encounters: 03/30/22 138/89 01/27/22 110/78 09/24/21 130/80 09/16/21 122/78 Pulse Readings from Last 4 Encounters: 03/30/22 90 01/27/22 70 09/24/21 78 09/16/21 74 @LASTSAO2(4)@ Wt Readings from Last 3 Encounters: 03/28/22 170 lb (77.1 kg) 01/27/22 173 lb (78.5 kg) 09/24/21 175 lb (79.4 kg) TELEMETRY: SR Physical Exam: GEN: Alert, pleasant and oriented x3. In no acute distress. HEENT: Sclerae anicteric. No xanthelasmas. EOM's intact. NECK: Supple. Carotids without bruits. No thyromegaly. LUNGS: clear to auscultation. Chest wall nontender. HEART: RRR, no murmur, gallop, or rub. No jugular venous distension. PMInondisplaced. ABD: soft, nontender, positive bowel sounds, no hepatosplenomegaly orbruits. EXT: no edema, +2 radial, +2 PT pulses NEURO: no obvious focal abnormalities Lab Results Component Value Date HGB 14.4 03/28/2022 HCT 45.4 (H) 03/28/2022 PLT 357 03/28/2022 CHOLESTEROL 148 09/24/2021 TRIG 109 09/24/2021 HDL 40 09/24/2021 LDLCALC 88 09/24/2021 ALT 14 01/27/2022 AST 17 01/27/2022 NA 142 03/28/2022 K 3.9 03/28/2022 CREATININE 0.67 03/28/2022 BUN 18 03/28/2022 CO2 26 03/28/2022 TSH 0.629 03/23/2020 INR 1.01 12/15/2018 GLU 90 03/28/2022 Active Hospital Problems Diagnosis ? ? *Syncope, unspecified syncope type ? ? Hypercholesterolemia Impression -syncope which sound like Negron-Nur attacks -SOL and diaphoresis Plan Monitor the rhythm lexiscan myoview to evaluate the SOL/diaphoresis Echo Thank you very much for allowing me to see this patient in consultation. 03/30/2022 1:26 PM Fredi Nick MD [facility] ECG AND WAVEFORMS - TELEMETRY Routine 03/29/2022 5:11 AM EST IP CONSULT TO CARDIOLOGY Routine 03/28/2022 9:41 PM EST Procedure Note - Fredi Nick MD - 03/30/2022 11:55 AM ESTThis note is in progress. Heart & Vascular Consult Note PATIENT: Stella Hylton PCP: Mann Irene MD Primary Dean: Dr. mccurdy Reason for consult: syncope x3 History provided by: pt, EMR History limited by: nothing HPI: 76 yo past smoker female hx: HLD Adm for syncope x3. 1st episode was about 3 wks ago. 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 No prodrome. Was out for a few secs and came to. She hadincontinence of urine. Denies CP or SOB w this episode. No seizureactivity noted. She saw her PCP And had a 2 day Holter that wasunremarkable. The 2nd episode, she was sitting on her couch at home. St she passed outslumping forward but did not fall. Again she had incontinence. Unsure howlong she was out. No prodrome. The 3rd episode she had finisher her bus monitoring and was driving out ofthe parking lot. She was stopped waiting for traffic to clear and awoke inthe parking lot across the street. The curb stopped the car. No prodrome.She again had urinary incontinence. She reports exertional SOL and sweating for several months. Trop neg EKG SR NSSTTWA Past Medical History Past Medical History: Diagnosis Date ? ? Allergy ? ? Arthritis generalized ? ? Does use hearing aid bilateral ? ? Hyperlipidemia ? ? Kidney stone hx of ? ? Motion sickness seasick ? ? Osteopenia ? ? Post-operative nausea and vomiting ? ? Urinary tract infection frequent UTI's Medication ? ? aspirin 81 mg Oral QAM ? ? atorvastatin 10 mg Oral Nightly ? ? cefTRIAXone (ROCEPHIN) IVPB (Orderable) 2 g Intravenous Daily ? ? pantoprazole (PROTONIX) 40 mg Intravenous Daily Or ? ? pantoprazole 40 mg Oral Daily acetaminophen, HYDROcodone-acetaminophen, ondansetron OR ondansetronOR metoclopramide HCl, morphine OR morphine, sodium chloride 0.9%,sodium chloride 0.9% Past Surgical History Past Surgical History: Procedure Laterality Date ? ? BLADDER TUMOR EXCISION N/A 10/26/2019 cystoscopy, bladder biopsy and fulguration of lesions of bladder;Surgeon: Amari Wheeler MD; Location: [facility]; Service: Urology ? ? CATARACT REMOVAL Right 02/28/2019 RIGHT EYE CATARACT EXTRACTION WITH PHACOEMULSIFICATION AND INTRAOCULARLENS; Surgeon: Conor Ramirez MD; Location: [facility];Service: Ophthalmology ? ? CATARACT REMOVAL Left 03/14/2019 LEFT EYE CATARACT EXTRACTION WITH PHACOEMULSIFICATION AND INTRAOCULARLENS; Surgeon: Conor Ramirez MD; Location: [facility];Service: Ophthalmology ? ? COLONOSCOPY ? ? CYSTOSCOPY Right 11/28/2019 cystoscopy right stent placement, right extracorporeal shock wavelithotripsy; Surgeon: Amari Wheeler MD; Location: [facility];Service: Urology ? ? HEMORRHOID SURGERY ? ? HIP ARTHROPLASTY Right 02/16/2014 RIGHT TOTAL HIP REPLACEMENT; Surgeon: Bruce Oh MD; Location:[facility]; Service: Orthopedics ? ? HYSTERECTOMY complete ? ? LITHOTRIPSY Right 11/28/2019 Surgeon: Amari Wheeler MD; Location: [facility]; Service: Urology ? ? LUMBAR DISC SURGERY 11/03/2012 Surgeon: Elza Bautista MD; Location: [facility]; Service: ? ? TOTAL KNEE ARTHROPLASTY Left 12/28/2018 left knee total replacement; Surgeon: Bruce Oh MD; [facility]; Service: Orthopedics ? ? URETEROSCOPY Right 01/02/2020 cystoscopy, Right Flexible Ureteroscopy, Retrograde, Stent Exchange,Laser Lithotripsy, Basket Retrieval of stone fragments; Surgeon: Amari Wheeler MD; Location: [facility]; Service: Urology Allergy Allergies Allergen Reactions ? ? Celecoxib Rash Family History Family History Problem Relation Age of Onset ? ? Early Father accident ? ? Early Sister ? ? Substance Abuse Sister ? ? Early Brother accident ? ? Early Mother accident ? ? Anesth Problems Neg Hx Social History Social History Tobacco Use ? ? Smoking status: Former Packs/day: 0.50 Years: 5.00 Pack years: 2.50 Types: Cigarettes Quit date: 1994 Years since quittin.9 ? ? Smokeless tobacco: Never ? ? Tobacco comments: quit in 1998 Substance Use Topics ? ? Alcohol use: No Review of Systems No headache,+ LOC, no fever, no chills, no cough, no nausea, no vomiting,no diarrhea, no burning micturation, no seizures, all other symptomsnegative and reviewed by me. Objective: Telemetry: SR 03/30/2022 Last BP: BP: 142/81 Last pulse: Pulse: 74 Last resp: Resp: 18 Last temp: Temp: 98 ??F (36.7 ??C) Last SpO2: SpO2: 98 % Exam: Pt in no distress. Lymph/Neck supple, no enlarged nodes or masses CVS - S1, S2 RRR, no edema RS - No rales, no rhonchi GI/Abd - soft, NT, +BS Neuro- Alert and oriented Psych- Mood and affect appropriate Skin warm, dry, no rashes Diagnostic tests Pertinent laboratory test have been reviewed The most recent cardiovascular imaging studies availabe in [facility] EMR werereviewed at time of consultation Assessment & Plan Active Hospital Problems Diagnosis ? ? *Syncope, unspecified syncope type ? ? Hypercholesterolemia 1. Mult episodes syncope- all while sitting without prodrome. Urinaryincontinence w all episodes -Recent 2 day Holter was Neg -tele stable -orthostatics neg -echo pending -Carotids pending 2. exertional SOL w sweating -trop neg -EKG SR w NSSTTWA -perla myoview in AM Plan: ?? Monitor tele ?? kendrick myoview in AM ?? 30 day EM at d/c if tele unrevealing ?? Advised not to drive until cause of syncope found Further input from Dr. Nick Thank you for the consult. We will follow with you. Sundeep Chan APRN I have reviewed the chief complaint and history of present illness andreview of systems as well as the past medical/social/family historysections for this patient. I have examined this patient, and participatedin the care of this patient. I have reviewed the pertinent clinicalinformation including physical exam, labs, radiographic and echo studies,and the plan. The patient was seen in coordination with the nursepractitioner. Fredi Nick MD [facility] CARDIOLOGY CONSULT Chief Complaint Patient presents with ? ? Loss of Consciousness Pt had same episode x2 wks ago and placed on holter monitor which wasnegative. Pt had same episode yest. Referring MD: referred by Dr Byrd HPI: Stella Hylton presents with syncope and collapse 3 recent syncopal episodes. No prodrome incontinence of urine eachepisode No seizure activity or post ictal state Benign 48 hour Holter Monitor Exertional dyspnea and diaphoresis Former smoker ROS: Denies chest pain, SOB/orthopnea/PND, cough, palpitations, dizziness,edema or claudication, fever/chills, visual changes, paresthesias,myalgias, arthralgias, weight change, N/V/diarrhea, hematochezia, melena,dysuria, polyuria, polydipsia or night sweats. Allergies Allergen Reactions ? ? Celecoxib Rash Medications Prior to Admission Medication Sig Dispense Refill Last Dose ? ? aspirin 81 mg Oral Tablet, Delayed Release (E.C.) Take 1 Tab by mouthevery morning. 03/28/2022 ? ? atorvastatin (LIPITOR) 10 mg Oral Tablet TAKE 1 TABLET BY MOUTH EVERYDAY 90 Tablet 0 03/28/2022 ? ? ergocalciferol (DRISDOL) 1,250 mcg (50,000 unit) Oral Capsule TAKE 1CAPSULE BY MOUTH ONE TIME PER WEEK 12 Cap 3 03/28/2022 ? ? ipratropium (ATROVENT) 21 mcg (0.03 %) Nasl [place], Non-Aerosol 2 Spraysby Nasal route 3 times daily. 30 mL 2 Taking ? ? loperamide (IMODIUM) 2 mg Oral Capsule Take 1 Capsule by mouth 4 timesdaily as needed for Diarrhea. 40 Capsule 0 Taking ? ? loratadine-pseudoephedrine (ALLERGY RELIEF D-24HR) 10-240 mg Oral TabletSustained Release 24 hr TAKE 1 TABLET BY MOUTH EVERY DAY NOT COVERED30 Tablet 2 03/28/2022 Past Medical History: Diagnosis Date ? ? Allergy ? ? Arthritis generalized ? ? Does use hearing aid bilateral ? ? Hyperlipidemia ? ? Kidney stone hx of ? ? Motion sickness seasick ? ? Osteopenia ? ? Post-operative nausea and vomiting ? ? Urinary tract infection frequent UTI's Past Surgical History: Procedure Laterality Date ? ? BLADDER TUMOR EXCISION N/A 10/26/2019 cystoscopy, bladder biopsy and fulguration of lesions of bladder;Surgeon: Amari Wheeler MD; Location: [facility]; Service: Urology ? ? CATARACT REMOVAL Right 02/28/2019 RIGHT EYE CATARACT EXTRACTION WITH PHACOEMULSIFICATION AND INTRAOCULARLENS; Surgeon: Conor Ramirez MD; Location: [facility];Service: Ophthalmology ? ? CATARACT REMOVAL Left 03/14/2019 LEFT EYE CATARACT EXTRACTION WITH PHACOEMULSIFICATION AND INTRAOCULARLENS; Surgeon: Conor Ramirez MD; Location: [facility];Service: Ophthalmology ? ? COLONOSCOPY ? ? CYSTOSCOPY Right 11/28/2019 cystoscopy right stent placement, right extracorporeal shock wavelithotripsy; Surgeon: Amari Wheeler MD; Location: [facility];Service: Urology ? ? HEMORRHOID SURGERY ? ? HIP ARTHROPLASTY Right 02/16/2014 RIGHT TOTAL HIP REPLACEMENT; Surgeon: Bruce Oh MD; Location:[facility]; Service: Orthopedics ? ? HYSTERECTOMY complete ? ? LITHOTRIPSY Right 11/28/2019 Surgeon: Amari Wheeler MD; Location: [facility]; Service: Urology ? ? LUMBAR DISC SURGERY 11/03/2012 Surgeon: Elza Bautista MD; Location: [facility]; Service: ? ? TOTAL KNEE ARTHROPLASTY Left 12/28/2018 left knee total replacement; Surgeon: Bruce Oh MD; Location:[facility]; Service: Orthopedics ? ? URETEROSCOPY Right 01/02/2020 cystoscopy, Right Flexible Ureteroscopy, Retrograde, Stent Exchange,Laser Lithotripsy, Basket Retrieval of stone fragments; Surgeon: Amari Wheeler MD; Location: [facility]; Service: Urology Family History Problem Relation Age of Onset ? ? Early Father accident ? ? Early Sister ? ? Substance Abuse Sister ? ? Early Brother accident ? ? Early Mother accident ? ? Anesth Problems Neg Hx SOCIAL HISTORY: reports that she quit smoking about 27 years ago. Hersmoking use included cigarettes. She has a 2.50 pack-year smoking history.She has never used smokeless tobacco. She reports that she does not drinkalcohol and does not use drugs. Vitals: BP Readings from Last 4 Encounters: 03/30/22 138/89 01/27/22 110/78 09/24/21 130/80 09/16/21 122/78 Pulse Readings from Last 4 Encounters: 03/30/22 90 01/27/22 70 09/24/21 78 09/16/21 74 @LASTSAO2(4)@ Wt Readings from Last 3 Encounters: 03/28/22 170 lb (77.1 kg) 01/27/22 173 lb (78.5 kg) 09/24/21 175 lb (79.4 kg) TELEMETRY: SR Physical Exam: GEN: Alert, pleasant and oriented x3. In no acute distress. HEENT: Sclerae anicteric. No xanthelasmas. EOM's intact. NECK: Supple. Carotids without bruits. No thyromegaly. LUNGS: clear to auscultation. Chest wall nontender. HEART: RRR, no murmur, gallop, or rub. No jugular venous distension. PMInondisplaced. ABD: soft, nontender, positive bowel sounds, no hepatosplenomegaly orbruits. EXT: no edema, +2 radial, +2 PT pulses NEURO: no obvious focal abnormalities Lab Results Component Value Date HGB 14.4 03/28/2022 HCT 45.4 (H) 03/28/2022 PLT 357 03/28/2022 CHOLESTEROL 148 09/24/2021 TRIG 109 09/24/2021 HDL 40 09/24/2021 LDLCALC 88 09/24/2021 ALT 14 01/27/2022 AST 17 01/27/2022 NA 142 03/28/2022 K 3.9 03/28/2022 CREATININE 0.67 03/28/2022 BUN 18 03/28/2022 CO2 26 03/28/2022 TSH 0.629 03/23/2020 INR 1.01 12/15/2018 GLU 90 03/28/2022 Active Hospital Problems Diagnosis ? ? *Syncope, unspecified syncope type ? ? Hypercholesterolemia Impression -syncope which sound like Negron-Nur attacks -SOL and diaphoresis Plan Monitor the rhythm lexiscan myoview to evaluate the SOL/diaphoresis Echo Thank you very much for allowing me to see this patient in consultation. 03/30/2022 1:26 PM Fredi Nick MD [facility] TROPONIN-T HIGH SENSITIVITY 2HR Timed 03/28/2022 3:52 PM EST ADMIT STAT 03/28/2022 2:25 PM EST XR CHEST AP PORTABLE SIVA 03/28/2022 2:21 PM EST URINALYSIS STAT 03/28/2022 2:09 PM EST UA W/REFLEX TO CULTURE STAT 2:09 PM EST URINE CULTURE (NO STAIN) STAT 03/28/2022 2:09 PM EST EXTRA MORENO URINE CX STAT 03/28/2022 2:09 PM EST TROPONIN-T HIGH SENSITIVITY BASELINE W/ REFLEX STAT 03/28/2022 1:23 PM EST BASIC METABOLIC PANEL STAT 03/28/2022 1:23 PM EST CBC STAT 03/28/2022 1:23 PM EST SALINE LOCK IV STAT 03/28/2022 12:41 PM EST EK EKG 12 LEAD STAT 03/28/2022 11:11 AM EST HOLTER MONITOR RECORDING AND ANALYSIS Routine 02/17/2022 9:30 AM EDT Syncope due to orthostatic hypotension TSH REFLEX Routine 01/27/2022 11:09 AM EDT Syncope, cardiogenic Chronic fatigue COMPREHENSIVE METABOLIC PANEL Routine 01/27/2022 11:09 AM EDT Syncope, cardiogenic CBC WITH DIFF Routine 01/27/2022 11:09 AM EDT Syncope, cardiogenic VA US CAROTID DUPLEX BILATERAL Routine 10/31/2021 1:00 PM EDT PVD (peripheral vascular disease) (HCC) Bruit VA US LOWER EXTREMITY ARTERIAL PHYSIOLOGICAL Routine 10/31/2021 12:30 PM EDT Claudication (HCC) VITAMIN B12/ FOLIC ACID Routine 09/24/2021 8:48 AM EDT Chronic fatigue VITAMIN D 25 HYDROXY Routine 09/24/2021 8:48 AM EDT Chronic fatigue Vitamin D deficiency TSH REFLEX Routine 09/24/2021 8:48 AM EDT Chronic fatigue CBC WITH DIFF Routine 09/24/2021 8:48 AM EDT Claudication (HCC) Hypercholesterol emia Osteoarthritis, unspecified osteoarthritis type, unspecified site COMPREHENSIVE METABOLIC PANEL Routine 09/24/2021 8:48 AM EDT Claudication (HCC) LIPID SCREEN Routine 09/24/2021 8:48 AM EDT Claudication (HCC) Hypercholesterol emia MM MAMMO DIGITAL VIVIANA SCREEN BILAT Routine 07/16/2021 11:40 AM EST Encounter for screening mammogram for malignant neoplasm of breast CBC WITH DIFF Routine 02/05/2021 9:31 AM EDT Hypercholesterol emia LIPID SCREEN Routine 02/05/2021 9:31 AM EDT Hypercholesterol emia COMPREHENSIVE METABOLIC PANEL Routine 02/05/2021 9:31 AM EDT Hypercholesterol emia SARS-COV-2 IGG Routine 03/23/2020 7:53 AM EST Malaise and fatigue VITAMIN D 25 HYDROXY Routine 03/23/2020 7:53 AM EST Malaise and fatigue Vitamin D deficiency THYROID STIMULATING HORMONE Routine 03/23/2020 7:53 AM EST Malaise and fatigue COMPREHENSIVE METABOLIC PANEL Routine 03/23/2020 7:53 AM EST Malaise and fatigue CBC WITH DIFF Routine 03/23/2020 7:53 AM EST Malaise and fatigue URINE CULTURE (NO STAIN) Routine 03/23/2020 7:53 AM EST Recurrent UTI (urinary tract infection) SEP URINALYSIS POC Routine 03/22/2020 4:41 PM EST Malaise and fatigue SEP URINALYSIS POC Routine 01/25/2020 1:46 PM EDT Asymptomatic microscopic hematuria COMPREHENSIVE METABOLIC PANEL Routine 01/12/2020 8:01 AM EDT Hypercholesterol emia CBC WITH DIFF Routine 01/12/2020 8:01 AM EDT Hypercholesterol emia SCANNED RHYTHM STRIPS 01/03/2020 9:38 AM EDT CALCULI (STONE) ANALYSIS - REF LAB Routine 01/02/2020 3:31 PM EDT Nephrolithiasis INTRAOP AIRWAY PLACEMENT Routine 01/02/2020 3:02 PM EDT CYSTOSCOPY, URETEROSCOPY, LASER LITHOTRIPSY, RETROGRADE PYELOGRAM, STENT INSERTION 01/02/2020 2:45 PM EDT Nephrolithiasis Special Needs holmium laser CORONAVIRUS 2019 Routine 12/29/2019 10:03 AM EDT Pre-op testing Encounter for laboratory testing for COVID-19 virus XR ABDOMEN AP Routine 12/05/2019 11:18 AM EDT Urine culture positive Hypercholesterol emia SCANNED RHYTHM STRIPS 11/30/2019 7:24 PM EDT FL LITHOTRIPSY SIVA 11/28/2019 1:50 PM EDT INTRAOP AIRWAY PLACEMENT Routine 11/28/2019 12:56 PM EDT EXTRACORPOREAL SHOCK WAVE THERAPY LITHOTRIPSY WITH/WITHOUT CYSTOSCOPY/STENT PLACEMENT/REMOVAL 11/28/2019 12:27 PM EDT Urine culture positive Special Needs ESBL positive in urine. Contact precautions CYSTOSCOPY STENT INSERTION OR EXCHANGE 11/28/2019 12:27 PM EDT Urine culture positive Special Needs ESBL positive in urine. Contact precautions CORONAVIRUS 2019 Routine 11/24/2019 10:20 AM EDT Pre-op testing Encounter for laboratory testing for COVID-19 virus URINALYSIS Routine 11/16/2019 3:18 PM EDT Urine culture positive URINE CULTURE (NO STAIN) Routine 11/16/2019 3:18 PM EDT Urine culture positive SEP URINALYSIS POC Routine 11/16/2019 11:51 AM EDT SCANNED EKG 10/31/2019 5:00 PM EDT TROPONIN-T HIGH SENSITIVITY 2HR Timed 10/31/2019 2:[address] ABDOMEN PELVIS WO ORAL OR IV CONTRAST STAT 10/31/2019 1:20 AM EDT CREATINE KINASE Add-On 10/30/2019 11:58 PM EDT URINALYSIS STAT 10/30/2019 11:58 PM EDT BASIC METABOLIC PANEL STAT 10/30/2019 11:58 PM EDT CBC STAT 10/30/2019 11:58 PM EDT TROPONIN-T HIGH SENSITIVITY BASELINE W/ REFLEX STAT 10/30/2019 11:58 PM EDT URINE CULTURE (NO STAIN) Add-On 10/30/2019 11:58 PM EDT EXTRA MORENO URINE CX STAT 10/30/2019 11:58 PM EDT EK EKG 12 LEAD STAT 10/30/2019 11:51 PM EDT PATHOLOGY TISSUE REQUEST Routine 10/26/2019 10:49 AM EDT Hematuria, unspecified type INTRAOP AIRWAY PLACEMENT Routine 10/26/2019 10:32 AM EDT CYSTOSCOPY TRANSURETHRAL RESECTION BLADDER TUMOR - FULGURATION/EVACUATION OF CLOT 10/26/2019 10:31 AM EDT Hematuria, unspecified type CORONAVIRUS 2019 (COVID-19) - REF LAB Routine 10/21/2019 9:52 AM EDT Encounter for laboratory testing for COVID-19 virus Pre-op testing XR ABDOMEN AP Routine 10/10/2019 12:18 PM EDT Hematuria, unspecified type SEP URINALYSIS POC Routine 10/10/2019 11:29 AM EDT Hematuria, unspecified type CT ABDOMEN PELVIS HEMATURIA/RENAL MASS PROTOCOL Routine 07/22/2019 9:57 AM EDT Recurrent UTI Feeling of incomplete bladder emptying CREATININE ISTAT Routine 07/22/2019 9:48 AM EDT URINE CULTURE (NO STAIN) Routine 07/20/2019 2:54 PM EDT Recurrent UTI URINALYSIS Routine 07/20/2019 2:53 PM EDT Recurrent UTI NON-CRISIS COUNSELOR CYTOLOGY REQUEST Routine 07/20/2019 2:53 PM EDT Recurrent UTI Feeling of incomplete bladder emptying POCT BLADDER SCAN Routine 07/20/2019 11:37 AM EDT Recurrent UTI Feeling of incomplete bladder emptying POCT URINALYSIS DIPSTICK Routine 07/20/2019 11:37 AM EDT Recurrent UTI URINE CULTURE (NO STAIN) Routine 04/15/2019 9:30 AM EST Dysuria POCT URINALYSIS DIPSTICK Routine 04/15/2019 9:05 AM EST Dysuria INTRAOP AIRWAY PLACEMENT Routine 03/14/2019 9:37 AM EST CATARACT EXTRACTION WITH PHACOEMULSIFICATION AND INTRAOCULAR LENS 03/14/2019 9:31 AM EST Nuclear sclerotic cataract of left eye Cortical age-related cataract, left eye Special Needs EPISHUGARCAINEAXIAL: 24.41 MMTOPICAL/MAC INTRAOP AIRWAY PLACEMENT Routine 02/28/2019 9:46 AM EDT CATARACT EXTRACTION WITH PHACOEMULSIFICATION AND INTRAOCULAR LENS 02/28/2019 9:38 AM EDT Nuclear sclerotic cataract of right eye Cortical age-related cataract, right eye Special Needs EPISHUGARCAINEAXIAL: 24.51 MMTOPICAL/MAC POCT URINALYSIS DIPSTICK Routine 02/10/2019 4:20 PM EDT Dysuria DX BONE DENSITY AXIAL SKELETON Routine 02/10/2019 11:38 AM EDT Post-menopausal SCANNED RHYTHM STRIPS 01/01/2019 10:56 PM EDT HEMOGLOBIN AND HEMATOCRIT Timed 12/31/2018 6:42 AM EDT HEMOGLOBIN AND HEMATOCRIT Timed 12/30/2018 6:19 AM EDT HEMOGLOBIN AND HEMATOCRIT Timed 12/29/2018 5:35 AM EDT IP CONSULT TO SOCIAL WORK Routine 12/28/2018 6:10 PM EDT IP CONSULT TO CARE COORDINATION Routine 12/28/2018 6:10 PM EDT XR KNEE LEFT AP AND LATERAL SIVA 12/28/2018 5:06 PM EDT FL < 1 HOUR SIVA 12/28/2018 3:17 PM EDT INTRAOP AIRWAY PLACEMENT Routine 12/28/2018 2:56 PM EDT TOTAL KNEE REPLACEMENT/ARTHROPLAS TY 12/28/2018 2:15 PM EDT Primary osteoarthritis of left knee Special Needs kylee PERIPHERAL BLOCK Routine 12/28/2018 1:34 PM EDT BB HISTORY CHECK Routine 12/15/2018 9:33 AM EDT Anticoagulation adequate SURGERY DATE Routine 12/15/2018 9:33 AM EDT Anticoagulation adequate ANTIBODY SCREEN IGG Routine 12/15/2018 9:33 AM EDT Anticoagulation adequate ABORH Routine 12/15/2018 9:33 AM EDT Anticoagulation adequate PREADMISSION TYPE AND SCREEN Routine 12/15/2018 9:33 AM EDT Anticoagulation adequate PT / INR Routine 12/15/2018 9:33 AM EDT Anticoagulation adequate COMPREHENSIVE METABOLIC PANEL Routine 12/15/2018 9:33 AM EDT Anticoagulation adequate CBC WITH DIFF Routine 12/15/2018 9:33 AM EDT Anticoagulation adequate HB SCREENING MAMMOGRAPHY BILATERAL INCLUDING CAD Routine 10/15/2018 8:41 AM EDT Encounter for screening for malignant neoplasm of breast COMPREHENSIVE METABOLIC PANEL Routine 03/05/2018 3:17 PM EDT Dizziness Hypernatremia CBC WITH DIFF Routine 03/05/2018 3:17 PM EDT Dizziness VA US LOWER EXTREMITY ARTERIAL PHYSIOLOGICAL Routine 12/11/2017 10:51 AM EDT Claudication (HCC) HCV ANTIBODY SCREEN W/ REFLEX Routine 10/13/2017 8:26 AM EDT Need for hepatitis C screening test LIPID SCREEN Routine 10/13/2017 8:26 AM EDT Hypercholesterol emia COMPREHENSIVE METABOLIC PANEL Routine 10/13/2017 8:26 AM EDT Hypernatremia CBC WITH DIFF Routine 10/13/2017 8:26 AM EDT Screening for deficiency anemia MM MOBILE MAMMO DIGITAL SCREEN W CAD ZEB Routine 09/14/2017 2:21 PM EDT Encounter for screening mammogram for breast cancer URINE CULTURE (NO STAIN) Routine 09/11/2017 3:18 PM EDT UTI (urinary tract infection), uncomplicated THYROID STIMULATING HORMONE Routine 01/23/2016 4:05 PM EDT Annual physical exam Screening for thyroid disorder LIPID SCREEN Routine 01/23/2016 4:05 PM EDT Annual physical exam Screening for cholesterol level COMPREHENSIVE METABOLIC PANEL Routine 01/23/2016 4:05 PM EDT Annual physical exam CBC Routine 01/23/2016 4:05 PM EDT Annual physical exam POCT INFLUENZA A/B Routine 07/30/2015 12:16 PM EDT Fever, unspecified fever cause URIC ACID Routine 03/02/2015 3:22 PM EDT Acute idiopathic gout of right foot LDL, CALCULATED Routine 09/01/2014 9:01 AM EDT DIFFERENTIAL Routine 09/01/2014 9:01 AM EDT LIPID PANEL REFLEX Routine 09/01/2014 9:01 AM EDT Well adult exam CBC WITH DIFF Routine 09/01/2014 9:01 AM EDT Well adult exam BASIC METABOLIC PANEL Routine 09/01/2014 9:01 AM EDT Well adult exam GMED COLONOSCOPY Routine 07/10/2014 12:00 PM EST PATHOLOGY TISSUE REPORT Routine 07/10/2014 12:00 PM EST CBC Routine 02/24/2014 6:10 AM EDT BASIC METABOLIC PANEL Routine 02/24/2014 6:10 AM EDT DME ORDERS Routine 02/23/2014 1:23 PM EDT SCANNED PRE/POST PROCEDURES 02/23/2014 10:17 AM EDT SCANNED ANESTHESIA FORMS 02/23/2014 10:17 AM EDT SCANNED RHYTHM STRIPS 02/23/2014 10:17 AM EDT HOME HEALTH ORDERS (FACE TO FACE ENCOUNTER) Routine 02/23/2014 9:44 AM EDT IP CONSULT TO SOCIAL WORK Routine 02/20/2014 7:09 PM EDT IP CONSULT TO NUTRITION Routine 02/20/2014 7:09 PM EDT HEMOGLOBIN AND HEMATOCRIT Early AM 02/19/2014 7:53 AM EDT HEMOGLOBIN AND HEMATOCRIT Early AM 02/18/2014 5:25 AM EDT HEMOGLOBIN AND HEMATOCRIT Early AM 02/17/2014 6:22 AM EDT BASIC METABOLIC PANEL Routine 02/17/2014 6:22 AM EDT BASIC METABOLIC PANEL Routine 02/16/2014 2:51 PM EDT IP CONSULT TO SOCIAL WORK Routine 02/16/2014 1:45 PM EDT IP CONSULT TO CARE COORDINATION Routine 02/16/2014 1:45 PM EDT XR PELVIS STAT 02/16/2014 11:29 AM EDT IP CONSULT TO HOSPITALIST Routine 02/16/2014 11:02 AM EDT Procedure Note - Ottoniel Conde MD - 02/16/2014 1:30 PM EDTThis note is in progress. Consult Dictated by Matthew Conde MD, Dictation# [id number] Active Hospital Problems Diagnosis ? ? OA (osteoarthritis)-s/p RIGHT TOTAL HIP REPLACEMENT 02/16/14. ? ? Hypernatremia Recheck BMP. ? ? Hypercholesterolemia Resolved Hospital Problems Diagnosis No resolved problems to display. Matthew Conde XR HIP INTRAOPERATIVE RIGHT 2 VIEW SIVA 02/16/2014 10:36 AM EDT FL < 1 HOUR SIVA 02/16/2014 10:36 AM EDT TOTAL HIP ARTHROPLASTY/REPLACEME NT-ANTERIOR OR REVISION ANTERIOR (KYLEE/NIC) 02/16/2014 9:12 AM EDT Primary localized osteoarthrosis, pelvic region and thigh, right Special Needs FAX CPT;13249 PAT UPDATED SPECIMEN STAT 02/16/2014 7:41 AM EDT PREADMISSION TYPE AND SCREEN Pre-Op 02/09/2014 10:23 AM EDT OA (osteoarthritis) Pre-op testing DIFFERENTIAL Pre-Op 02/09/2014 8:40 AM EDT BASIC METABOLIC PANEL Routine 02/09/2014 8:40 AM EDT OA (osteoarthritis) Pre-op testing CBC WITH DIFF Pre-Op 02/09/2014 8:40 AM EDT OA (osteoarthritis) Pre-op testing PARTIAL THROMBOPLASTIN TIME Pre-Op 02/09/2014 8:40 AM EDT OA (osteoarthritis) Pre-op testing Anticoagulant disorder (HCC) PT / INR Pre-Op 02/09/2014 8:40 AM EDT OA (osteoarthritis) Pre-op testing Anticoagulant disorder (HCC) STAPHYLOCOCCUS AUREUS SCREEN Pre-Op 02/09/2014 8:40 AM EDT URINALYSIS Pre-Op 02/09/2014 8:13 AM EDT OA (osteoarthritis) Pre-op testing ANTIBODY SCREEN IGG Pre-Op 02/09/2014 8:10 AM EDT ABORH Pre-Op 02/09/2014 8:10 AM EDT POCT URINALYSIS DIPSTICK Routine 01/19/2014 4:43 PM EDT Dysuria URINE CULTURE (NO STAIN) Routine 01/16/2014 3:07 PM EDT Dysuria POCT URINALYSIS DIPSTICK Routine 01/16/2014 3:05 PM EDT Dysuria MRI FEMUR RIGHT WO CONTRAST Routine 12/21/2013 6:04 PM EDT Leg pain URINE CULTURE (NO STAIN) Routine 12/19/2013 1:07 PM EDT Dysuria XR KNEE RIGHT AP LATERAL AND SUNRISE STANDING Routine 12/16/2013 1:48 PM EDT Thigh pain, right XR FEMUR RIGHT AP AND LATERAL Routine 12/16/2013 1:48 PM EDT Thigh pain, right CREATINE KINASE Routine 12/16/2013 11:28 AM EDT Thigh pain, right EC ECHOCARDIOGRAM COMPLETE W DOPPLER AND COLOR FLOW MAPPING Routine 10/07/2013 1:25 PM EDT Heart murmur MM MAMMO DIGITAL SCREENING W CAD BILAT Routine 10/07/2013 1:12 PM EDT Other screening mammogram VA US LOWER EXTREMITY ARTERIAL PHYSIOLOGICAL Routine 10/07/2013 12:56 PM EDT Claudication (HCC) LDL, CALCULATED Routine 09/26/2013 10:09 AM EDT LIPID PANEL REFLEX Routine 09/26/2013 10:09 AM EDT Hypercholesterol emia COMPREHENSIVE METABOLIC PANEL Routine 09/26/2013 10:09 AM EDT Hypercholesterol emia CBC Routine 09/26/2013 10:09 AM EDT Hypercholesterol emia LDL, CALCULATED Routine 04/14/2013 9:17 AM EST DIFFERENTIAL Routine 04/14/2013 9:17 AM EST LIPID PANEL REFLEX Routine 04/14/2013 9:17 AM EST Hyperlipidemia COMPREHENSIVE METABOLIC PANEL Routine 04/14/2013 9:17 AM EST Hyperlipidemia CBC WITH DIFF Routine 04/14/2013 9:17 AM EST Hyperlipidemia POCT HEMOCCULT 1-3 CARDS Routine 03/18/2013 3:15 PM EST Colon cancer screening SCANNED PRE/POST PROCEDURES 11/05/2012 9:01 AM EDT SCANNED ANESTHESIA FORMS 11/05/2012 9:01 AM EDT SCANNED RHYTHM STRIPS 11/05/2012 9:01 AM EDT XR LUMBAR SPINE SINGLE VW SIVA 11/03/2012 1:12 PM EDT FL < 1 HOUR SIVA 11/03/2012 1:10 PM EDT LUMBAR LAMINECTOMY/DISCECTOMY (COVERS FACETECTOMY) 11/03/2012 11:53 AM EDT Spinal stenosis, other than cervical, Lumbar region, without neurogenic claudi Special Needs MULU CPT; 28503/18694 EK EKG 12 LEAD STAT 11/03/2012 11:23 AM EDT MRI LUMBAR SPINE WO CONTRAST Routine 09/21/2012 8:38 AM EDT Low back pain XR LUMBAR SPINE AP LATERAL AND OBLIQUES Routine 09/13/2012 10:46 AM EDT Low back pain CBC Routine 09/13/2012 8:50 AM EDT Well adult exam COMPREHENSIVE METABOLIC PANEL Routine 09/13/2012 8:50 AM EDT Well adult exam LIPID SCREEN Routine 09/13/2012 8:50 AM EDT Well adult exam Results * VITAMIN D 25 HYDROXY (11/09/2023 11:21 AM EDT) Only the most recent of3 resultswithin the time period is included. Vit D 25 OH 55.1 30.0 - 150.0 ng/mL 11/09/2023 3:41 PM EDT [facility] Comment: Preferred: >= 30 ng/mL Insufficient: 21-29 ng/mL Deficient <= 20 ??ng/mL Possible Toxicity: >150 ng/mL Samples should not be taken from patients receiving therapy with high biotin doses (i.e. > 5 mg/day) until at least 8 hours following the last biotin administration. Blood VENOUS BLOOD / Unknown Venipuncture / Unknown 11/09/2023 11:21 AM EDT 11/09/2023 11:21 AM EDT us Palma Jj DO CHEMISTRY ORDERABLES Final R esult [facility] [address] [facility] , [place] [address] * (ABNORMAL) CBC WITH DIFF (11/09/2023 11:21 AM EDT) Only the most recent of15 resultswithin the time period is included. WBC 7.2 3.7 - 10.3 x10(3)/mcL 11/09/2023 3:06 PM EDT [facility] RBC 4.58 3.90 - 5.20 x10(6)/mcL 11/09/2023 3:06 PM EDT [facility] Hgb 13.2 11.2 - 15.7 g/dL 11/09/2023 3:06 PM EDT [facility] Hct 41.4 34.0 - 45.0 % 11/09/2023 3:06 PM EDT [facility] MCV 90.4 80.0 - 100.0 fL 11/09/2023 3:06 PM EDT [facility] MCH 28.8 26.0 - 34.0 pg 11/09/2023 3:06 PM EDT [facility] MCHC 31.9 30.7 - 35.5 g/dL 11/09/2023 3:06 PM EDT [facility] RDW 15.4(H) <=14.9 % 11/09/2023 3:06 PM EDT [facility] Platelet 308 155 - 369 x10(3)/mcL 11/09/2023 3:06 PM EDT [facility] MPV 10.1 8.8 - 12.5 fL 11/09/2023 3:06 PM EDT [facility] Neut Percent 39.3 % 11/09/2023 3:06 PM EDT [facility] Comment:Neutrophils equals s egs plus bands Imm Gran% 0.3 % 11/09/2023 3:06 PM EDT [facility] Comment:Automated count of m etamyelocytes, myelocytes and promyelocytes. Lymph Percent 44.4 % 11/09/2023 3:06 PM EDT [facility] [place] Percent 8.1 % 11/09/2023 3:06 PM EDT [facility] Eos Percent 7.1 % 11/09/2023 3:06 PM EDT [facility] Baso Percent 0.8 % 11/09/2023 3:06 PM EDT [facility] Neut # 2.8 1.6 - 6.1 x10(3)/[facility] 11/09/2023 3:06 PM EDT [facility] [employer], [facility] Comment:Neutrophils equals s egs plus bands IMMGRAN# 0.0 0.0 - 0.1 x10(3)/[facility] 11/09/2023 3:06 PM EDT [facility] [employer], [facility] Comment:Automated count of m etamyelocytes, myelocytes and promyelocytes. An absolute IG <0.1 is reported as 0.0. Lymph # 3.2 1.2 - 3.9 x10(3)/[facility] 11/09/2023 3:06 PM EDT [facility] [place] # 0.6 0.3 - 0.9 x10(3)/[facility] 11/09/2023 3:06 PM EDT [facility], [facility] Eos# 0.5 0.0 - 0.5 x10(3)/[facility] 11/09/2023 3:06 PM EDT [facility] [employer], [facility] Baso # 0.1 0.0 - 0.1 x10(3)/[facility] 11/09/2023 3:06 PM EDT [facility] [employer], [facility] Blood VENOUS BLOOD / Unknown Venipuncture / Unknown 11/09/2023 11:21 AM EDT 11/09/2023 11:21 AM EDT Palma Jj DO HEMATOLOGY ORDERABLES Final Result [facility] [employer], [facility] [address] [facility] , [place] [address] * NT PROBNP (11/09/2023 11:21 AM EDT) NT Pro-BNP 102 <=624 pg/mL 11/09/2023 3:27 PM EDT [facility] [employer], [facility] Blood VENOUS BLOOD / Unknown Venipuncture / Unknown 11/09/2023 11:21 AM EDT 11/09/2023 11:21 AM EDT Narrative [facility] [employer], [facility] - 11/09/2023 3:27 PM EDT An NT pro-BNP level less than 300 pg/mL in any patient, regardless of age, effectively rules out acute CHF with a 99% negative predictive value. Ingestion of lakshmi doses of biotin (>5 mg/day) taken within 8 hours of drawing blood sample can interfere with this immunoassay test. us Palma Jj DO CHEMISTRY ORDERABLES Final R esult [facility] [address] [facility] , [place] [address] * (ABNORMAL) LIPID SCREEN (11/09/2023 11:21 AM EDT) Only the most recent of6 resultswithin the time period is included. Cholesterol 220(H) <200 mg/dL 11/09/2023 3:35 PM EDT [facility] Comment: < 200 ?Desirable 200 - 239 ? Borderline High >= 240 ?High Triglyceride 91 <150 mg/dL 11/09/2023 3:35 PM EDT [facility] Comment: < 150 ? Normal 150 - 199 ?Borderline High 200 - 499 ?High ??>= 500 ? Very High HDL 53 >=40 mg/dL 11/09/2023 3:35 PM EDT [facility] Comment: ??> 60 ?Optimal 40 - 60 ?Acceptable ?? < 40 ?Low LDL Calculated 151(H) <100 mg/dL 11/09/2023 3:35 PM EDT [facility] Comment: < 100 ?Optimal 100 - 129 ? Near or above optimal 130 - 159 ? Borderline High 160 - 189 ? High >= 190 ?Very High Non-HDL-C Calculated 167(H) <=129 mg/dL 11/09/2023 3:35 PM EDT [facility] Comment: <130 ?Desirable 130-159 Above Desirable 160-189 Borderline High 190-219 High >= 220 ??Very High Fasting Specimen? No None 024 3:35 PM EDT [facility] Blood VENOUS BLOOD / Unknown Venipuncture / Unknown 11/09/2023 11:21 AM EDT 11/09/2023 11:21 AM EDT us Palma Jj DO CHEMISTRY ORDERABLES Final R esult [facility] [address] [facility] , [place] [address] [facility] [address] [place] [address] * BASIC METABOLIC PANEL (11/09/2023 11:21 AM EDT) Only the most recent of9 resultswithin the time period is included. Sodium 141 136 - 145 mmol/L 11/09/2023 3:35 PM EDT [facility] Potassium 4.5 3.5 - 5.0 mmol/L 11/09/2023 3:35 PM EDT [facility] Chloride 105 98 - 107 mmol/L 11/09/2023 3:35 PM EDT [facility] Total CO2 29 22 - 29 mmol/L 11/09/2023 3:35 PM EDT [facility] Anion Gap 7 7 - 16 mmol/L 11/09/2023 3:35 PM EDT [facility] Calcium 9.6 8.8 - 10.4 mg/dL 11/09/2023 3:35 PM EDT [facility] Glucose Lvl 77 70 - 99 mg/dL 11/09/2023 3:35 PM EDT [facility] BUN 19 8 - 23 mg/dL 11/09/2023 3:35 PM EDT [facility] Creatinine 0.74 0.51 - 1.30 mg/dL 11/09/2023 3:35 PM EDT [facility] eGFR (CKD-EPIcr 2020) 83 >=60 mL/min/1.7 3 m2 11/09/2023 3:35 PM EDT [facility] Comment:Estimated GFR was ca lculated using the CKD-EPIcr (2020) equation refit without race. The equation is recommended by the National Kid[employer] - [place] [employer] Neph[employer] Task Force. Blood VENOUS BLOOD / Unknown Venipuncture / Unknown 11/09/2023 11:21 AM EDT 11/09/2023 11:21 AM EDT us Palma Jj DO CHEMISTRY ORDERABLES Final R esult [facility] [address] [facility] [address], [place] [address] [facility] [address] [place] [address] * XR CERVICAL SPINE AP AND LATERAL (08/12/2023 1:11 PM EDT) Anatomical Region Laterality Modality C-spine Radiographic Demetra ging 08/12/2023 1:11 PM EDT Impressions 08/12/2023 2:32 PM EDT Multilevel degenerative changes. Narrative 08/12/2023 2:32 PM EDT AP AND LATERAL C-SPINE, ??08/12/2023 1:11 PM CLINICAL HISTORY: ??[id number] COMPARISON: ??None. PROCEDURE COMMENTS: ??AP and lateral views of the cervical spine. FINDINGS: The lower cervical spine is obscured on the lateral view by superimposed structures. No compression fracture deformity is evident. There is stepwise degenerative anterolisthesis from C3-4 through C6-7, most pronounced at C4-5 where it measures 4 mm. There is moderate disc space narrowing at C5-6 and less pronounced narrowing at the other levels. Procedure Note Carrington Posada MD - 08/12/2023 AP AND LATERAL C-SPINE, 08/12/2023 1:11 PM CLINICAL HISTORY: [id number] COMPARISON: None. PROCEDURE COMMENTS: AP and lateral views of the cervical spine. FINDINGS: The lower cervical spine is obscured on the lateral view by superimposed structures. No compression fracture deformity is evident. There isstepwise degenerative anterolisthesis from C3-4 through C6-7, most pronounced atC4-5 where it measures 4 mm. There is moderate disc space narrowing at C5-6 andless pronounced narrowing at the other levels. IMPRESSION: Multilevel degenerative changes. Clay Ness MD [facility] ORDERABLES Final Result * DE US CAROTID DUPLEX BILATERAL (07/23/2023 10:47 AM EDT) Only the most recent of2 resultswithin the time period is included. Anatomical Region Laterality Modality Vascular, Head, Neck Vascular Im aging 07/23/2023 10:1 2 AM EDT Impressions 07/23/2023 11:59 AM EDT Conclusions ??* There is a right proximal internal carotid artery mildly obstructive lesion noted, with an estimated high end 1-39% stenosis. ??* There is a mixed echogenic structure with no flow seen on the right side of the neck that measures approximately .4 x .6 cm. May be a small cyst. ??* There is a left proximal internal carotid artery mildly obstructive lesion noted, with an estimated 1-39% stenosis. ??* There are 2 mixed echogenic structures with no flow seen on the left side of the neck that measures approximately .7 x .9 cm and .3 x .4 cm. These may be small cysts. ??* Antegrade flow visualized in the bilateral vertebral artery. Narrative Procedure Note Tae Anderson MD - 07/23/2023 IMPRESSION Conclusions * There is a right proximal internal carotid artery mildly obstructive lesion noted, with an estimated high end 1-39% stenosis. * There is a mixed echogenic structure with no flow seen on the rightside of the neck that measures approximately .4 x .6 cm. May be a small cyst. * There is a left proximal internal carotid artery mildly obstructivelesion noted, with an estimated 1-39% stenosis. * There are 2 mixed echogenic structures with no flow seen on the leftside of the neck that measures approximately .7 x .9 cm and .3 x .4 cm. Thesemay be small cysts. * Antegrade flow visualized in the bilateral vertebral artery. Result [facility] Palma Jj DO [facility] VASCULAR ORDERABLES Karen l Result * XR FOOT RIGHT AP LATERAL AND OBLIQUE (07/06/2023 2:05 PM EST) Anatomical Region Laterality Modality Foot Radiographic Demetra ging 07/06/2023 2:05 PM EST Impressions 07/06/2023 2:50 PM EST Multifocal right foot degenerative changes. - Note: Radiology results need to be interpreted within a comprehensive clinical context. ??If you have questions about the radiology report, please contact the office of the ordering clinician. Narrative 07/06/2023 2:50 PM EST XR FOOT RIGHT AP LATERAL AND OBLIQUE, ??07/06/2023 2:05 PM CLINICAL HISTORY: ??M79.671-Pain in right [id number] COMPARISON: ??None. PROCEDURE COMMENTS: XR FOOT RIGHT AP LATERAL AND OBLIQUE FINDINGS: There is no fracture or traumatic malalignment. 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 There is hallux bunion. 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 Procedure Note Juaquin Morel MD - 07/06/2023 XR FOOT RIGHT AP LATERAL AND OBLIQUE, 07/06/2023 2:05 PM CLINICAL HISTORY: M79.671-Pain in right [id number] COMPARISON: None. PROCEDURE COMMENTS: XR FOOT RIGHT AP LATERAL AND OBLIQUE FINDINGS: There is no fracture or traumatic malalignment. 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 There ishallux bunion. 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 IMPRESSION: Multifocal right foot degenerative changes. - Note: Radiology results need to be interpreted within a comprehensiveclinical context. If you have questions about the radiology report, please contactthe office of the ordering clinician. Palma Jj DO IMG DIAGNOSTIC IMAGING ORDER LILLIAN Final Result * EEG AWAKE AND ASLEEP (04/15/2023 10:09 AM EST) Anatomical Region Laterality Modality Electroencephalo graphy Narrative 04/15/2023 12:56 PM EST REFERRING MD: Palma Jj DO REASON FOR EE yo F with syncope CURRENT MEDICATIONS: Aspirin, Lipitor, Voltaren, drisdol, Lisinopril TECHNICAL SUMMARY: ??This is a 20 channel referential and bipolar EEG recorded in a digital format in a patient who is reported to be awake during the recording. ??While awake and maximally stimulated the background rhythm consisted of a well developed, well regulated moderate voltage activity in the 9 Hz frequency range, maximum over the posterior head regions and reactive to eye opening and closure. ??During the recording no drowsiness or sleep is seen. ??Photic stimulation was performed and elicited no abnormalities. ??Hyperventilation was not able to be performed due to medical reasons. ??No cardiac rhythm abnormalities were seen in the EKG monitoring channel. EEG INTERPRETATION: ??This EEG is within normal limits for a patient of this age in the awake conditions. ??No focal, lateralizing, or epileptiform features were seen. A normal EEG does not exclude the diagnosis of a seizure disorder. Should seizures remain of strong clinical concern a prolonged (digitrace) or repeat study is recommended. Reading MD Rachael Gold, DO Palma Jj DO IMG EEG ORDERABLES Final Res ult * COMPREHENSIVE METABOLIC PANEL (04/06/2023 11:41 AM EST) Only the most recent of14 resultswithin the time period is included. Sodium 141 136 - 145 mmol/L 04/06/2023 11:01 PM EST [facility] Potassium 4.3 3.5 - 5.0 mmol/L 04/06/2023 11:01 PM EST [facility] Chloride 105 98 - 107 mmol/L 04/06/2023 11:01 PM EST [facility] Total CO2 28 22 - 29 mmol/L 04/06/2023 11:01 PM EST [facility] Anion Gap 8 7 - 16 mmol/L 04/06/2023 11:01 PM EST [facility] Calcium 9.3 8.8 - 10.4 mg/dL 04/06/2023 11:01 PM EST [facility] Glucose Lvl 96 82 - 100 mg/dL 04/06/2023 11:01 PM EST [facility] BUN 13 8 - 23 mg/dL 04/06/2023 11:01 PM EST [facility] Creatinine 0.70 0.51 - 1.30 mg/dL 04/06/2023 11:01 PM EST [facility] Albumin 3.9 3.2 - 4.6 gm/dL 04/06/2023 11:01 PM EST [facility] Total Protein 7.1 6.4 - 8.3 gm/dL 04/06/2023 11:01 PM EST [facility] Bili Total 0.4 0.2 - 1.3 mg/dL 04/06/2023 11:01 PM EST [facility] ALT 12 <=41 U/L 04/06/2023 11:01 PM EST [facility] AST 15 <=40 U/L 04/06/2023 11:01 PM EST [facility], [facility] Alk Phos 118 36 - 123 U/L 04/06/2023 11:01 PM EST [facility], [facility] eGFR (CKD-EPIcr 2020) 90 >=60 mL/min/1.7 3 m2 04/06/2023 11:01 PM EST [facility] Comment:Estimated GFR was ca lculated using the CKD-EPIcr (2020) equation refit without race. The equation is recommended by the National Kidney [employer] - [place] [employer] Nephrology Task Force. Blood VENOUS BLOOD / Unknown Venipuncture / Unknown 04/06/2023 11:41 AM EST 04/06/2023 11:41 AM EST us Palma Jj DO CHEMISTRY ORDERABLES Final R esult [facility] [address] [facility] [address] [place] [id number] [facility] [address] [place] [phone] * POCT EKG (04/06/2023 11:22 AM EST) Only the most recent of2 resultswithin the time period is included. 04/06/2023 11:2 2 AM EST Impressions SEP OFFICE - 04/06/2023 11:22 AM EST Sinus rhythm, possible left atrial enlargement. 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; no significant change from prior EKG us Palma Jj DO POINT OF CARE CARDIOLOGY Fin al Result SEP OFFICE * XR THORACIC SPINE AP AND LATERAL (01/23/2023 10:40 AM EDT) Narrative Genericuser, Audit - 01/23/2023 10:40 AM EDT Please see physician's note from office encounter for x-ray imaging result us Miky Webb MD IMG DIAGNOSTIC IMAGING OR DERABLES Final Result * DX BONE DENSITY AXIAL INCLUDING VERTEBRAL FRACTURE ASSESSMENT (12/19/2022 10:09 AM EDT) Anatomical Region Laterality Modality Dexa Scan 12/19/2022 Impressions 12/19/2022 3:56 PM EDT : Indication: The patient is a female age 65 or older who requires a bone density assessment. Study was performed on Zubie 5. Bone Density: Region ?BMD ? T-score ? Z- score Femoral Neck (Left) ? 0.699 ?-1.3 ? 0.7 Total Hip (Left) ?0.742 ?-1.6 ? 0.2 1/3 Radius (Right) ?0.502 ?-3.2 ?-0.6 World Health Organization criteria for BMD interpretation classify patients as: Normal (T-score at or above -1.0), Low Bone Density (T-score between -1.0 and -2.5), or Osteoporotic (T-score at or below -2.5). T Scores are reported in Postmenopausal women and in men age 50 and older. Z-scores are reported in females prior to menopause and in males younger than age 50. Vertebral Deformity Assessment: Exam date 12/19/2022 Vertebral Level ? Impression T5 ?Normal T6 ?Normal T7 ?Normal T8 ?Normal T9 ?Normal T10 ? Normal T11 ? Normal T12 ? Normal L1 ?Normal L2 ?Normal L3 ?Normal L4 ?Normal A spine fracture indicates 5X risk for subsequent spine fracture and 2X risk for subsequent hip fracture. Previous Exams: Region ? Date ?Age ?BMD ??T-score ?BMD Change Total Hip(Left) ? 12/19/2022 ?77 ?0.742 ?-1.6 ?5.2%* ? 02/10/2019 ?73 ?0.705 ?-1.9 1/3 Forearm(Right) ? 12/19/2022 ?77 ?0.502 ?-3.2 ?-3.9% ? 02/10/2019 ?73 ?0.522 ?-2.9 *Denotes significance at 95% confidence level, LSC for AP Spine = 0.032g/cm2, LSC for Total Hip = 0.024 g/cm2, LSC for Distal 1/3 Radius = 0.026 g/cm2, site specific LSC for Total Hip = 0.022 g/cm2 BMD is shown in g/cm2 and BMD Change indicates change vs previous BMD Clinical Information Provided by Patient: Has rheumatoid arthritis Has used or is currently using the following medications: Vitamin D, Diuretic Has had or currently has the following medical conditions: Back pain, Vitamin D Insufficiency Patient maximum height was 62.3 Menopause Age: 26 Patient is postmenopausal Interpretation: Bone mineral density is in the osteoporotic range. Spine previously omitted due to hypertrophic change. The left hip bone mineral density is significantly increased since the last exam. Although not approved for monitoring therapy the forearm bone mineral density is not significantly changed since the last exam. The vertebral fracture assessment is interpretable from T5 to L4. No vertebral fractures are identified. The vertebral fracture assessment is normal. Note: VFA is designed to detect vertebral fractures and no other abnormalities. A minimum of two years may be required between bone density studies due to inherent testing precision limitations. Intervals between BMD testing should be determined according to each patient's clinical status: typically one year after initiation or change of therapy is appropriate, with longer intervals once therapeutic effect is established. Reported by: Jaycee Moctezuma PA-C, CCD on 12/19/2022 12:59:00 PM. us Palma Jj DO IMG DEXA ORDERABLES Final Re sult * [place] ARTHROCENTESIS ASPIR&/INJ MAJOR JT/BURSA W/O US (12/03/2022 10:45 AM EDT) Narrative ORTHOCINCY - 12/03/2022 10:45 AM EDT Nayely Velez ? 02/21/2023 ??3:51 PM Large Joint Injection/Arthrocentesis: R knee on 12/03/2022 10:45 AM Indications: pain Details: 22 G needle, anterolateral approach Medications: 4 mL hyaluronate sodium, stabilized 88 mg/4 mL Outcome: tolerated well, no immediate complications Procedure, treatment alternatives, risks and benefits explained, specific risks discussed. Consent was given by the patient. Immediately prior to procedure a time out was called to verify the correct patient, procedure, equipment, peer support specialist and site/side marked as required. Patient was prepped and draped in the usual sterile fashion. Result [facility] Ludwin MAYEN-Lee Ann PROCEDURE/MINOR SURGICAL OR DERABLES Final Result Performing Organization Address [facility] de Phone Number ORTHOCINCY * MRI LUMBAR SPINE WO CONTRAST (11/03/2022 11:44 AM EDT) Only the most recent of2 resultswithin the time period is included. Narrative [facility] - 11/03/2022 11:44 AM EDT Please see the scanned MRI report associated with this order on the Imaging tab of the patient's chart. Result [facility] us Bruce Oh MD [facility] MRI ORDERABLES Final Res ult Performing Organization Address [facility] de Phone Number [facility] * XR KNEE RIGHT AP LATERAL AND SUNRISE STANDING (10/22/2022 2:22 PM EDT) Only the most recent of2 resultswithin the time period is included. Narrative Stephanie, Audit - 10/22/2022 2:22 PM EDT Please see physician's note from office encounter for x-ray imaging result Result [facility] us Bruce Oh MD [facility] IMAGING ORDER LILLIAN Final Result * XR LUMBAR SPINE AP AND LATERAL (10/22/2022 1:59 PM EDT) Narrative Stephanie, Audit - 10/22/2022 1:59 PM EDT Please see physician's note from office encounter for x-ray imaging result Result Noris Oh MD [facility] ORDER LILLIAN Final Result * XR HIP RIGHT AP LATERAL W AP PELVIS (10/22/2022 1:58 PM EDT) Narrative Prashant Brown - 10/22/2022 1:58 PM EDT Please see physician's note from office encounter for x-ray imaging result Result [facility] Bruce Oh MD IMG DIAGNOSTIC IMAGING ORDER LILLIAN Final Result * [place] ARTHROCENTESIS ASPIR&/INJ MAJOR JT/BURSA W/O US (10/22/2022 1:45 PM EDT) Narrative [facility] - 10/22/2022 1:45 PM EDT Nayely Velez ? 10/29/2022 ??4:52 PM Large Joint Injection/Arthrocentesis on 10/22/2022 1:45 PM Indications: pain Details: 22 G needle, anterolateral approach Outcome: tolerated well, no immediate complications Procedure, treatment alternatives, risks and benefits explained, specific risks discussed. Consent was given by the patient. Immediately prior to procedure a time out was called to verify the correct patient, procedure, equipment, peer support specialist and site/side marked as required. Patient was prepped and draped in the usual sterile fashion. Bruce Oh MD PROCEDURE/MINOR SURGICAL ORD ERABLES Final Result [facility] [address] [place] [address] * MM MAMMO DIGITAL VIVIANA SCREEN BILAT (07/28/2022 11:27 AM EDT) Only the most recent of2 resultswithin the time period is included. Anatomical Region Laterality Modality Breast Bilateral Mammography 07/29/2022 7:54 AM EDT Impressions 07/29/2022 7:54 AM EDT Negative ??([id number]) ~ RECOMMENDATION: Routine screening mammogram in 1 year. ~ DISCLAIMER * Any patient with a palpable abnormality, unexplained by breast imaging, should be managed on clinical basis by the attending physician. * Breast imaging has a false negative rate of 15%. * The patient was notified by mail of the results of this examination. *The patient's information was entered into a reminder system with a target due date for the next mammogram, in accordance with the [employer] and the Society of Breast Imaging recommendations. Narrative 07/29/2022 7:54 AM EDT Procedure:MM MAMMO DIGITAL VIVIANA SCREEN BILAT ~ Reason for exam: screening, asymptomatic. Z12.31-Encounter for screening mammogram for malignant neoplasm of [id number]-CM ~ MM MAMMO DIGITAL VIVIANA SCREEN BILAT Bilateral CC and MLO view(s) were taken. There are scattered fibroglandular densities. Prior study comparison: Compared with prior studies the most recent being 07/16/21, 10/15/18 No mammographic evidence of malignancy. ~ Procedure Note Chasity Marie MD - 07/29/2022 Procedure:MM MAMMO DIGITAL VIVIANA SCREEN BILAT ~ Reason for exam: screening, asymptomatic. Z12.31-Encounter for screening mammogram for malignant neoplasm of [id number]-CM ~ MM MAMMO DIGITAL VIVIANA SCREEN BILAT Bilateral CC and MLO view(s) were taken. There are scattered fibroglandular densities. Prior study comparison: Compared with prior studies the most recentbeing 07/16/21, 10/15/18 No mammographic evidence of malignancy. ~ IMPRESSION: Negative (LIA-Ermtlirn-4) ~ RECOMMENDATION: Routine screening mammogram in 1 year. ~ DISCLAIMER * Any patient with a palpable abnormality, unexplained by breast imaging, should be managed on clinical basis by the attending physician. * Breast imaging has a false negative rate of 15%. * The patient was notified by mail of the results of this examination. *The patient's information was entered into a reminder system with atarget due date for the next mammogram, in accordance with the [employer] and the Society of Breast Imaging recommendations. Mann Irene MD IM MAMMOGRAPHY ORDERABLES Fin al Result * (ABNORMAL) URINE CULTURE (NO STAIN) (07/28/2022 10:34 AM EDT) Only the most recent of10 resultswithin the time period is included. Culture Positive Growth(A) 07/30/2022 10:57 AM EDT [facility] Culture >100,000 CFU/mL Escherichia coli SUSCEPTIBI LITY RESULT 07/30/2022 10:57 AM EDT [facility] Urine URINE SPECIMEN COLLECTION, CLEAN CATCH / Unknown 07/28/2022 10:34 AM EDT 07/28/2022 10:34 AM EDT Narrative Organism Antibiotic Method Susceptibility Escherichia coli Amikacin SUSCEPTIBILITY RESULT <=16 ug/mL: Susceptible Escherichia coli Amoxicillin/Clavulanate SUSCEPTIBILIT Y RESULT <=8/4 ug/mL: Susceptible Escherichia coli Ampicillin SUSCEPTIBILITY RESULT >16 ug/mL: Resistant Escherichia coli Ampicillin/Sulbactam SUSCEPTIBILITY R ESULT 16/8 ug/mL: Intermediate Escherichia coli Aztreonam SUSCEPTIBILITY RESULT <=4 ug/mL: Susceptible Escherichia coli Cefazolin SUSCEPTIBILITY RESULT >16 ug/mL: Resistant Escherichia coli Cefepime SUSCEPTIBILITY RESULT Escherichia coli Cefotaxime SUSCEPTIBILITY RESULT <=2 ug/mL: Susceptible Escherichia coli Cefoxitin SUSCEPTIBILITY RESULT <=8 ug/mL: Susceptible Escherichia coli Ceftazidime SUSCEPTIBILITY RESULT <=1 ug/mL: Susceptible Escherichia coli Ceftazidime/Avibactam SUSCEPTIBILITY RESULT Escherichia coli Ceftolozane/Tazobactam SUSCEPTIBILITY RESULT Escherichia coli Ceftriaxone SUSCEPTIBILITY RESULT <=1 ug/mL: Susceptible Escherichia coli Cefuroxime SUSCEPTIBILITY RESULT >16 ug/mL: Resistant Escherichia coli Ciprofloxacin SUSCEPTIBILITY RESULT <=0.25 ug/mL: Susceptible Escherichia coli Ertapenem SUSCEPTIBILITY RESULT <=0.5 ug/mL: Susceptible Escherichia coli Gentamicin SUSCEPTIBILITY RESULT <=2 ug/mL: Susceptible Escherichia coli Imipenem SUSCEPTIBILITY RESULT <=1 ug/mL: Susceptible Escherichia coli Levofloxacin SUSCEPTIBILITY RESULT <=0.5 ug/mL: Susceptible Escherichia coli Meropenem SUSCEPTIBILITY RESULT <=1 ug/mL: Susceptible Escherichia coli Meropenem/Vaborbactam SUSCEPTIBILITY RESULT Escherichia coli Minocycline SUSCEPTIBILITY RESULT Escherichia coli Moxifloxacin SUSCEPTIBILITY RESULT Escherichia coli Nitrofurantoin SUSCEPTIBILITY RESULT 64 ug/mL: Intermediate Escherichia coli Piperacillin/Tazobactam SUSCEPTIBILIT Y RESULT <=8 ug/mL: Susceptible Escherichia coli Tetracycline SUSCEPTIBILITY RESULT <=4 ug/mL: Susceptible Escherichia coli Tigecycline SUSCEPTIBILITY RESULT Escherichia coli Tobramycin SUSCEPTIBILITY RESULT <=2 ug/mL: Susceptible Escherichia coli Trimethoprim/Sulfame tho xazole SUSCEPTIBILITY RESULT <=0.5/9.5 ug/mL: Susceptible us Palma Jj DO MICROBIOLOGY - GENERAL ORDER LILLIAN Final Result [facility] [address] [facility] , [place] [address] * (ABNORMAL) SEP URINALYSIS POC (07/28/2022 9:14 AM EDT) Only the most recent of7 resultswithin the time period is included. UA Color POC Yellow Color 07/28/2022 9:16 AM EDT [facility] UA Appear POC Clear Clear 07/28/2022 9:16 AM EDT SE[facility] UA Gluc POC Negative Negative mg/dL 07/28/2022 9:16 AM EDT [facility] UA Bili POC Negative Negative 07/28/2022 9:16 AM EDT SEP [facility]AB[facility] UA Ketones POC Negative Negative mg/dL 07/28/2022 9:16 AM EDT [facility] UA SG POC >=1.030 1.001 - 1.035 no units 07/28/2022 9:16 AM EDT SEP [facility]AB[facility] UA Blood POC Negative Negative 07/28/2022 9:16 AM EDT SEP [facility]AB[facility] UA pH POC 7.0 5.0 - 8.0 pH 07/28/2022 9:16 AM EDT SEP [facility]AB[facility] UA Protein POC Negative Negative mg/dL 07/28/2022 9:16 AM EDT [facility] UA Urobilinogen POC 0.2 0.2, 1.0 07/28/2022 9:16 AM EDT [facility]P [facility] UA Nitrite POC Negative Negative 07/28/2022 9:16 AM EDT [facility] UA Leuk Est POC Trace(A) Negative 9:16 AM EDT [facility] Urine URINE SPECIMEN COLLECTION / Unknown 07/28/2022 9:14 AM EDT 07/28/2022 9:16 AM EDT us Palma Jj DO POINT OF CARE TEST ORDERABLE S Final Result [facility] [address] [place] [address] * TSH REFLEX (07/09/2022 2:01 PM EST) Only the most recent of3 resultswithin the time period is included. TSH Reflex 1.040 0.270 - 4.200 mcIU/mL 07/09/2022 9:42 PM EST [facility] Blood VENOUS BLOOD / Unknown Venipuncture / Unknown 07/09/2022 2:01 PM EST 07/09/2022 2:01 PM EST Narrative [facility] - 07/09/2022 9:42 PM EST Ingestion of lakshmi doses of biotin (>5 mg/day) taken within 8 hours of drawing blood sample can interfere with this immunoassay test. us Palma Jj DO CHEMISTRY ORDERABLES Final R esult [facility] [address] [facility] , [place] [address] * SCANNED RADIOLOGY REPORT (04/04/2022 3:50 PM EST) Anatomical Region Laterality Modality Other 04/04/2022 3:50 PM EST us Unknown Provider IMG DIAGNOSTIC IMAGING ORDERABL ES Final Result * EV EVENT MONITOR (04/04/2022 10:26 AM EST) Anatomical Region Laterality Modality Holter/Event Mon itoring 05/06/2022 4:50 AM EST Impressions 05/06/2022 8:20 AM EST ? [facility] ? Test Date: ?2022-05-06 Pat Name: ? STELLA HYLTON ?Department: ?? DEPID ? Room: ? Gender: ? Female ? Greeting Card Maker: ?? : ?1945 ? Requested By: FREDI Mc Order Number: [id number] ?Carlos MARSHALL: ?? Fredi Nick MD ? Interpretive Statements Cinder Block Mason Date: ??04/04/2022 Referring Provider: ??Dr. Fredi Nick MD Patient was monitored for 30 days. INDICATIONS: SYNCOPE AND COLLAPSE CONCLUSION: Sinus rhythm with atrial premature beats. On 04/24/22 there were several episodes of aststole with AV junctional escape beats. ??The longest pause was 12.8 seconds, other pauses were as long as 6.3 and 3.8 seconds Electronically Signed On 05-06-2022 8:20:17 EST by Fredi Nick MD Narrative Procedure Note Fredi Nick MD - 05/06/[address] [facility] Test Date: 2022-05-06 Pat Name: STELLA HYLTON Department: DEPID Room: Gender: Female Greeting Card Maker: : 1945 Requested By: FREDI Mc Order Number: [id number] Reading MD: Fredi Nick MD Interpretive Statements Cinder Block Mason Date: 04/04/2022 Referring Provider: Dr. Fredi Nick MD Patient was monitored for 30 days. INDICATIONS: SYNCOPE AND COLLAPSE CONCLUSION: Sinus rhythm with atrial premature beats. On 04/24/22 there were several episodes of aststole with AV junctionalescape beats. The longest pause was 12.8 seconds, other pauses were as long as6.3 and 3.8 seconds Electronically Signed On 05-06-2022 8:20:17 EST by Fredi Nick MD us Fredi Nick MD IMG HOLTER MONITOR ORDERABLE S Final Result * SCANNED EKG (04/02/2022 3:30 PM EST) Only the most recent of2 resultswithin the time period is included. Anatomical Region Laterality Modality Other 04/02/2022 3:30 PM EST us Unknown Provider IMG ECG ORDERABLES Final Result * ECG AND WAVEFORMS - TELEMETRY (04/01/2022 7:03 AM EST) Only the most recent of6 resultswithin the time period is included. [facility] ECG INTERPRET NSR [facility] 04/01/2022 7:03 AM EST Narrative [facility] - 04/01/2022 8:25 AM EST BA/HICUITY ROUTINE ??KS 0.15 ??QRS 0.10 ??QT 0.43 ??See Clinical Report link for waveform capture us Unknown Provider POINT OF CARE CARDIOLOGY Final Result [facility] [address] [place] [address] * EC ECHOCARDIOGRAM COMPLETE W DOPPLER AND COLOR FLOW MAPPING (03/31/2022 1:40 PM EST) Only the most recent of2 resultswithin the time period is included. [facility] Ejection Fraction 60-65% PYRAMIS MITRAL REGURGITATION trace PYRAMIS AORTIC STENOSIS no PYRAMIS LV DIASTOLIC PLAX 4.649 cm PYRAMIS Anatomical Region Laterality Modality Electrocardiogra phy 03/31/2022 1:02 PM EST Impressions 03/31/2022 4:01 PM EST Conclusions ??* Left ventricular chamber dimension is normal. ??* Left ventricular function is normal with an estimated ejection fraction of 60-65%. ??* Left ventricular segmental wall motion is normal. ??* The left ventricular diastolic function is consistent with stage I diastolic dysfunction (normal left atrial pressure). ??* Right ventricular systolic function is normal. ??* Estimated pulmonary artery systolic pressure is 31 mmHg. Narrative Procedure Note Mrac Segovia MD - 03/31/2022 IMPRESSION Conclusions * Left ventricular chamber dimension is normal. * Left ventricular function is normal with an estimated ejectionfraction of 60-65%. * Left ventricular segmental wall motion is normal. * The left ventricular diastolic function is consistent with stage I diastolic dysfunction (normal left atrial pressure). * Right ventricular systolic function is normal. * Estimated pulmonary artery systolic pressure is 31 mmHg. Rosendo Urena MD [facility] ECHO ORDERABLES Final Re sult * NM MYOCARDIAL PERFUSION SPECT STRESS AND REST (03/31/2022 1:21 PM EST) Anatomical Region Laterality Modality Nuclear Medicine 03/31/2022 10:5 8 AM EST Impressions 03/31/2022 4:10 PM EST Conclusions ??* Homogenous uptake of isotope throughout the left ventricle on both stress and rest images. ??* No evidence of myocardial ischemia or prior myocardial infarction. ??* Normal left ventricular size and normal left ventricular systolic function. ??* Normal left ventricular systolic function. ??* Overall left ventricular systolic function was normal without regional wall motion abnormalities. ??* Gated SPECT imaging reveals normal myocardial wall motion. Narrative Procedure Note Marc Segovia MD - 03/31/2022 IMPRESSION Conclusions * Homogenous uptake of isotope throughout the left ventricle on bothstress and rest images. * No evidence of myocardial ischemia or prior myocardial infarction. * Normal left ventricular size and normal left ventricular systolic function. * Normal left ventricular systolic function. * Overall left ventricular systolic function was normal withoutregional wall motion abnormalities. * Gated SPECT imaging reveals normal myocardial wall motion. us Sundeep Chan APRN [facility] [place] CARDIAC ORDERABLES Fi nal Result * ST STRESS TEST LEXISCAN (03/31/2022 12:32 PM EST) Anatomical Region Laterality Modality Cardiac Stress T esting 03/31/2022 12:1 5 PM EST Impressions 03/31/2022 3:24 PM EST ?[facility] ? Test Date: ?2022-03-31 Pat Name: ? STELLA HYLTON ?Department: ?? DEPID ? Room: ? 4402 Gender: ? Female ? Greeting Card Maker: ?? Rachael Cifuentes RN : ?1945 ? Requested By: TIANA ENRIQUEZ Order Number: [id number] ?Reading MD: ?? Riley Segovia MD ? Interpretive Statements ?Stress Test Lexiscan Ordering Diagnosis: Chest Pain Resting HR: 74 Peak HR: 102 Resting B/P: 152/83 Peak B/P: 152/83 1. Lexiscan 0.4 mg was given IV push at 30 seconds into protocol. 2. Lexiscan injection was done without low level exercise. 3. Termination of test due to protocol completion. 4. Symptoms: stomach cramping and sl. dizziness H/A 09/17 5. No Aminophylline given 6. Nuclear Imaging reported separately. Physician Interpretation Resting ECG: NSR Arrhythmias: None Conclusion: Stress ECG is negative for Ischemia Electronically Signed On 03-31-2022 15:24:34 EST by Riley Segovia MD Narrative Procedure Note Marc Segovia MD - 03/31/[address] [facility] Test Date: 2022-03-31 Pat Name: STELLA HYLTON Department: DEPID Room: [facility] Gender: Female Greeting Card Maker: Rachael Cifuentes RN : 1945 Requested By: TIANA ENRIQUEZ Order Number: [id number] Reading MD: Riley Segovia MD Interpretive Statements Stress Test Lexiscan Ordering Diagnosis: Chest Pain Resting HR: 74 Peak HR: 102 Resting B/P: 152/83 Peak B/P: 152/83 1. Lexiscan 0.4 mg was given IV push at 30 seconds into protocol. 2. Lexiscan injection was done without low level exercise. 3. Termination of test due to protocol completion. 4. Symptoms: stomach cramping and sl. dizziness H/A 09/17 5. No Aminophylline given 6. Nuclear Imaging reported separately. PhysicianInterpretation Resting ECG: NSR Arrhythmias: None Conclusion: Stress ECG is negative for Ischemia Electronically Signed On 03-31-2022 15:24:34 EST by Riley Segovia MD us Sundeep Chan [employer]IN[employer]CHIV[employer] IMG STRESS ORDERABLES Final Result * US THYROID (03/30/2022 3:36 PM EST) Anatomical Region Laterality Modality Neck Ultrasound 03/30/2022 3:36 PM EST Impressions 03/30/2022 5:26 PM EST Multiple small and benign-appearing thyroid nodules. - Note: Radiology results need to be interpreted within a comprehensive clinical context. ??If you have questions about the radiology report, please contact the office of the ordering clinician. Narrative 03/30/2022 5:26 PM EST THYROID SONOGRAPHY, ??03/30/2022 3:36 PM ?? CLINICAL HISTORY: ??Thyroid nodule(s). -L thyroid cyst. COMPARISON: ??None. PROCEDURE COMMENTS: Sonographic evaluation of the thyroid gland per protocol. Images and technologist notes reviewed. METHODOLOGY: ??Up to 4 nodules with the highest scores are reported using the Thyroid Imaging Reporting and Data System (TI-RADS). This system promotes a common lexicon for thyroid nodule description, focusing on relevant imaging characteristics to allow risk stratification of individual nodules and makes recommendations for biopsy or sonographic follow-up based on the estimated risk profile. ??Deviation from management recommendations may be appropriate based on individual patient variables. ??For comprehensive details, refer to https://www.acr.org/clinical-resources/amsngyhcn-glo-srlu-systems/ti-rads. ?? Right lobe measures: 3.8 x 1.7 x 1.9 cm Left lobe measures: 4.0 x 1.3 x 1.8 cm RIGHT-side lymph nodes: No suspicious lymph nodes. LEFT-side lymph nodes: No suspicious lymph nodes. Nodule #1: Location: Posterior RIGHT upper pole ??Size: 0.6 x 0.5 x 0.5 cm ??Prior measurement None. Composition: Mixed cystic and solid. 1 Point. Echogenicity: Hypoechoic (equal to or more echogenic than strap muscles.) 2 points. Shape: Not taller than wide. 0 points. Margin: Smooth. ??0 points. Echogenic foci: None or large comet-tails. 0 points. Total points: 3 points. ??TI-RADS category 3. ??FNA if 2.5cm or greater in longest dimension. Follow in 1, 3, and 5 years if 1.5-2.4 cm in longest dimension. Nodule #2: Location: Posterior RIGHT lower pole ??Size: 0.8 x 0.5 x 0.5 cm ??Prior measurement None. Composition: Spongiform. ??0 points. Echogenicity: N/A Shape: N/A Margin: N/A Echogenic foci: N/A Total points: 0 Points. ??TI-RADS category 1. ??No FNA or follow-up suggested. Nodule #3: Location: LEFT lateral ??Size: 0.7 x 0.4 x 0.4 cm ??Prior measurement None. Composition: Spongiform. ??0 points. Echogenicity: N/A Shape: N/A Margin: N/A Echogenic foci: N/A Total points: 0 Points. ??TI-RADS category 1. ??No FNA or follow-up suggested. Nodule #: Location: LEFT lateral ??Size: 1.1 x 0.7 x 0.8 cm ??Prior measurement None. Composition: Cystic or almost completely cystic. ??0 points. Echogenicity: Anechoic. ??0 points. Shape: Not taller than wide. 0 points. Margin: Smooth. ??0 points. Echogenic foci: None or large comet-tails. 0 points. Total points: 0 Points. ??TI-RADS category 1. ??No FNA or follow-up suggested. Numerous additional colloid and spongiform nodules are present. Procedure Note Carl Mcbride MD - 03/30/2022 THYROID SONOGRAPHY, 03/30/2022 3:36 PM CLINICAL HISTORY: Thyroid nodule(s). -L thyroid cyst. COMPARISON: None. PROCEDURE COMMENTS: Sonographic evaluation of the thyroid gland perprotocol. Images and technologist notes reviewed. METHODOLOGY: Up to 4 nodules with the highest scores are reported usingthe Thyroid Imaging Reporting and Data System (TI-RADS). This system promotesa common lexicon for thyroid nodule description, focusing on relevantimaging characteristics to allow risk stratification of individual nodules andmakes recommendations for biopsy or sonographic follow-up based on the estimatedrisk profile. Deviation from management recommendations may be appropriatebased on individual patient variables. For comprehensive details, refer to https://www.acr.org/clinical-resources/ofaboqsym-vwl-ibcp-systems/ti-rads. Right lobe measures: 3.8 x 1.7 x 1.9 cm Left lobe measures: 4.0 x 1.3 x 1.8 cm RIGHT-side lymph nodes: No suspicious lymph nodes. LEFT-side lymph nodes: No suspicious lymph nodes. Nodule #1: Location: Posterior RIGHT upper pole Size: 0.6 x 0.5 x 0.5 cm Prior measurement None. Composition: Mixed cystic and solid. 1 Point. Echogenicity: Hypoechoic (equal to or more echogenic than strap muscles.)2 points. Shape: Not taller than wide. 0 points. Margin: Smooth. 0 points. Echogenic foci: None or large comet-tails. 0 points. Total points: 3 points. TI-RADS category 3. FNA if 2.5cm or greater inlongest dimension. Follow in 1, 3, and 5 years if 1.5-2.4 cm in longestdimension. Nodule #2: Location: Posterior RIGHT lower pole Size: 0.8 x 0.5 x 0.5 cm Prior measurement None. Composition: Spongiform. 0 points. Echogenicity: N/A Shape: N/A Margin: N/A Echogenic foci: N/A Total points: 0 Points. TI-RADS category 1. No FNA or follow-upsuggested. Nodule #3: Location: LEFT lateral Size: 0.7 x 0.4 x 0.4 cm Prior measurementNone. Composition: Spongiform. 0 points. Echogenicity: N/A Shape: N/A Margin: N/A Echogenic foci: N/A Total points: 0 Points. TI-RADS category 1. No FNA or follow-upsuggested. Nodule #: Location: LEFT lateral Size: 1.1 x 0.7 x 0.8 cm Prior measurementNone. Composition: Cystic or almost completely cystic. 0 points. Echogenicity: Anechoic. 0 points. Shape: Not taller than wide. 0 points. Margin: Smooth. 0 points. Echogenic foci: None or large comet-tails. 0 points. Total points: 0 Points. TI-RADS category 1. No FNA or follow-upsuggested. Numerous additional colloid and spongiform nodules are present. IMPRESSION: Multiple small and benign-appearing thyroid nodules. - Note: Radiology results need to be interpreted within a comprehensiveclinical context. If you have questions about the radiology report, please contactthe office of the ordering clinician. Lolis Byrd MD [facility] ORDERABLES Final Result * PROCALCITONIN (03/30/2022 3:02 PM EST) Procalcitonin <0.05 <=0.49 ng/mL 03/30/2022 3:52 PM EST [facility] Blood VENOUS BLOOD / Unknown Venipuncture / Unknown 03/30/2022 3:02 PM EST 03/30/2022 3:07 PM EST Narrative [facility] - 03/30/2022 3:52 PM EST Procalcitonin <0.50 ng/mL: Procalcitonin levels below 0.50 ng/mL on the first day of ICU admission represent a low risk for progression to severe sepsis and/or septic shock Procalcitonin >=0.50 ng/mL and <=2.00 ng/mL: If the procalcitonin measurement is performed shortly after the systemic infection process has started (usually less than 6 hours), this value may still be low. ??As various non-infectious conditions are known to induce procalcitonin as well, procalcitonin levels between 0.50 ng/mL and 2.00 ng/mL should be reviewed carefully to take into account the specific clinical background and condition(s) of the patient. Procalcitonin >2.00 ng/mL: Procalcitonin levels above 2.00 ng/mL on the first day of ICU admission represent a high risk for progression to severe sepsis and/or septic shock. us Lolis Byrd MD CHEMISTRY ORDERABLES Final Resul t [facility] [address] [facility] , [place] [address] * (ABNORMAL) D-DIMER (03/30/2022 3:02 PM EST) D-Dimer 671(H) <=500 ng/mL FEU 03/30/2022 3:21 PM EST [facility] Comment:This is an automated latex enhanced immunoassay for the quantitative determination of D-Dimer that may be used, in conjunction with a clinical pretest probability assessment, to exclude venous thromboembolism in patients suspected of deep venous thrombosis (DVT) and pulmonary embolism (PE). The cutoff for exclusion of DVT and PE is 500 ng/mL Fibrinogen Equivalent Units (FEU). Elevated D-Dimer levels may be associated with PE, DVT, disseminated intravascular coagulation, recent surgery, recent bleeding, , malignancy, and inflammation. Blood VENOUS BLOOD / Unknown Venipuncture / Unknown 03/30/2022 3:02 PM EST 03/30/2022 3:07 PM EST Narrative [facility]REF[facility], [facility] - 03/30/2022 3:21 PM EST For patients between the ages of 50 - 75, an age-adjusted D-Dimer cut-off in combination with non-high clinical probability may be considered for the exclusion of venous thromboembolism (calculation = age x 10). MAGNUS Warren, et al. [employer]ia D[employer] Med. 2017;166(5):361-363 PRAKASH Vogt, et al. [employer] Med. 2015;(163):701-711. Ashvin M, et al. HUI. 2014;(11):8512-9990. us Lolis Byrd MD HEMATOLOGY ORDERABLES Final Resu lt [facility]REFERRED [facility], [facility] [address] [facility], [place] [address] * [id number] (03/30/2022 9:53 AM EST) CORONAVIRUS [id number] Not Detected Not Detected 03/30/2022 12:16 PM EST [facility], [facility] Influenza A DNA Not Detected Not Detected 03/30 12:16 PM EST [facility], [facility] Influenza B DNA Not Detected Not Detected 03/30 12:16 PM EST [facility], [facility] RSV DNA Not Detected Not Detected 03/30/2022 12:16 PM EST [facility], [facility] Swab BOTH ANTERIOR NARES / Unknown 03/30/2022 9:53 AM EST 03/30/2022 9:53 AM EST Narrative [facility]REF[facility], [facility] - 03/30/2022 12:16 PM EST This test is a real-time RT-PCR test intended for the qualitative detection of nucleic acid from the SARS-CoV-2, Influenza A/B, and RSV in upper respiratory samples collected from individuals suspected of COVID-19, Influenza A/B or RSV. Not Detected results do not preclude COVID-19, influenza virus or RSV infection or other respiratory viruses and should not be used as the sole basis for treatment or other patient management decisions. ?? Test is performed on the [employer] Control GeneXpert platform under the FDA's Emergency Use Authorization (EUA). Cepheid Fact Sheet for Providers and Patients: Cepheid Fact Sheet for Providers: https://www.fda.gov/media/163770/download Cepheid Fact Sheet for Patients: https://www.fda.gov/media/959442/download us Lolis Byrd MD MICROBIOLOGY - GENERAL ORDERABLE S Final Result Performing Organization Address City/[facility]/ZIP Co de Phone Number [facility] [address] [facility], [place] [address] * TROPONIN-T HIGH SENSITIVITY 2HR (03/28/2022 3:52 PM EST) Only the most recent of2 resultswithin the time period is included. md-rErebofuh-O 2HR 10 <14 ng/L 03/28/2022 4:17 PM EST [facility] Comment:See the website [facility] [employer]PPORT[employer] for rule out [place] care pathway, conditions other than AMI that can cause elevated hs cTnT, and comparison of values from the 4th and 5th generation Rosie tests. [email or web address]/clinical-[email or web address] hs-cTnT 2Hr Delta from Baseline 0 <4 ng/L 03/28/2022 4:17 PM EST [facility] Blood VENOUS BLOOD / Unknown Venipuncture / Unknown 03/28/2022 3:52 PM EST 03/28/2022 3:55 PM EST Narrative [facility] - 03/28/2022 4:17 PM EST Ingestion of lakshmi doses of biotin (>5 mg/day) taken within 8 hours of drawing blood sample can interfere with this immunoassay test. us Fredi Hamlin APRN CHEMISTRY ORDERABLES Final Result Performing Organization Address City/[facility]/ZIP Co de Phone Number [facility] [address] [place] [address] * XR CHEST AP PORTABLE (03/28/2022 2:21 PM EST) Anatomical Region Laterality Modality Chest Radiographic Demetra ging 03/28/2022 2:21 PM EST Impressions 03/28/2022 2:26 PM EST Minimal basal atelectasis versus scarring - Note: Radiology results need to be interpreted within a comprehensive clinical context. ??If you have questions about the radiology report, please contact the office of the ordering clinician. Narrative 03/28/2022 2:26 PM EST XR CHEST AP PORTABLE, ??03/28/2022 2:21 PM CLINICAL HISTORY: ??-LOSS OF CONSCIOUSNESS COMPARISON: ??None. PROCEDURE COMMENTS: AP portable technique. FINDINGS: Support devices: No visible support devices. Heart size normal. Mediastinum unremarkable. No pleural fluid or pneumothorax. Minimal basal opacities compatible with some mild atelectasis or scar. Procedure Note Jareth Gonzalez MD - 03/28/2022 XR CHEST AP PORTABLE, 03/28/2022 2:21 PM CLINICAL HISTORY: -LOSS OF CONSCIOUSNESS COMPARISON: None. PROCEDURE COMMENTS: AP portable technique. FINDINGS: Support devices: No visible support devices. Heart size normal. Mediastinum unremarkable. No pleural fluid orpneumothorax. Minimal basal opacities compatible with some mild atelectasis or scar. IMPRESSION: Minimal basal atelectasis versus scarring - Note: Radiology results need to be interpreted within a comprehensiveclinical context. If you have questions about the radiology report, please contactthe office of the ordering clinician. Fredi Hamlin APRN IMG DIAGNOSTIC IMAGING ORD ERABLES Final Result * EXTRA MORENO URINE CX (03/28/2022 2:09 PM EST) Only the most recent of2 resultswithin the time period is included. Urine URINE SPECIMEN COLLECTION, CLEAN CATCH / Unknown 03/28/2022 2:09 PM EST 03/28/2022 2:14 PM EST us Fredi Hamlin APRN MICROBIOLOGY - GENERAL ORD ERABLES Final Result [place] [id number] * (ABNORMAL) URINALYSIS (03/28/2022 2:09 PM EST) Only the most recent of5 resultswithin the time period is included. UA Color Yellow 03/28/2022 2:20 PM EST [facility] UA Appear Clear Clear 03/28/2022 2:20 PM EST [facility] UA Glucose Negative Negative mg/dL 03/28/2022 2:20 PM EST [facility] UA Ketones Negative Negative mg/dL 03/28/2022 2:20 PM EST [facility] Blood Negative Negative 03/28/2022 2:20 PM EST [facility] UA pH 6.0 5.0 - 8.0 pH 03/28/2022 2:20 PM EST [facility] UA Protein Trace (10-20 mg/dL) Negative mg/dL 03/28/2022 2:20 PM EST [facility] UA Urobilinogen Normal <=1 mg/dL 2:20 PM EST [facility]A Bili Negative Negative 03/28/2022 2:20 PM EST [facility]A Nitrite Positive(A) Negative 03/28/2022 2:20 PM EST [facility] UA Leuk Est 3+ (250 Zena/mcl)(A) Negative 03/28/2022 2:20 PM EST [facility] Spec Grav 1.026 1.001 - 1.035 no units 03/28/2022 2:20 PM EST [facility] Comment:Reference range chong d for random specimens only. UA WBC 5(H) 0 - 4 /HPF 03/28/2022 2:20 PM EST [facility] RBC 1 0 - 3 /HPF 03/28/2022 2:20 PM EST [facility] Squam Epi 1+ /LPF 03/28/2022 2:20 PM EST [facility] Mucus Trace /LPF 03/28/2022 2:20 PM EST [facility]A Bacteria 1+(A) Negative /HPF 03/28/2022 2:20 PM EST [facility] Urine URINE SPECIMEN COLLECTION, CLEAN CATCH / Unknown 03/28/2022 2:09 PM EST 03/28/2022 2:14 PM EST Fredi Hamlin APRN URINE ORDERABLES Final Res ult Performing Organization Address City/[facility]/ZIP Co de Phone Number [facility], [address] [place] [id number] * TROPONIN-T HIGH SENSITIVITY BASELINE W/ REFLEX (03/28/2022 1:23 PM EST) Only the most recent of2 resultswithin the time period is included. dt-iIryztqlg-G 10 <14 ng/L 03/28/2022 1:46 PM EST [facility] Comment:See the website patricia hinton for rule out [place] care pathway, conditions other than AMI that can cause elevated hs cTnT, and comparison of values from the 4th and 5th generation Rosie tests. [email or web address] Blood VENOUS BLOOD / Unknown Venipuncture / Unknown 03/28/2022 1:23 PM EST 03/28/2022 1:26 PM EST Narrative [facility] - 03/28/2022 1:46 PM EST Ingestion of lakshmi doses of biotin (>5 mg/day) taken within 8 hours of drawing blood sample can interfere with this immunoassay test. Fredi Hamlin APRN CHEMISTRY ORDERABLES Final Result Performing Organization Address City/[facility]/ZIP Co de Phone Number [facility] [address] [place] [address] * (ABNORMAL) CBC (03/28/2022 1:23 PM EST) Only the most recent of6 resultswithin the time period is included. WBC 11.0(H) 3.7 - 10.3 x10(3)/mcL 03/28/2022 1:29 PM EST [facility] RBC 5.05 3.90 - 5.20 x10(6)/mcL 03/28/2022 1:29 PM EST [facility] Hgb 14.4 11.2 - 15.7 g/dL 03/28/2022 1:29 PM EST [facility] Hct 45.4(H) 34.0 - 45.0 % 03/28/2022 1:29 PM EST [facility] MCV 89.9 80.0 - 100.0 fL 03/28/2022 1:29 PM EST [facility] MCH 28.5 26.0 - 34.0 pg 03/28/2022 1:29 PM EST [facility] MCHC 31.7 30.7 - 35.5 g/dL 03/28/2022 1:29 PM EST [facility] RDW 13.6 <=14.9 % 03/28/2022 1:29 PM EST [facility] Platelet 357 155 - 369 x10(3)/mcL 03/28/2022 1:29 PM EST [facility] MPV 8.9 8.8 - 12.5 fL 03/28/2022 1:29 PM EST [facility] Blood VENOUS BLOOD / Unknown Venipuncture / Unknown 03/28/2022 1:23 PM EST 03/28/2022 1:26 PM EST Fredi Hamlin PROVINCE ARCHIVIST HEMATOLOGY ORDERABLES Karen herbert Result [facility] [address] [place] [address] * EK EKG 12 LEAD (03/28/2022 11:11 AM EST) Only the most recent of3 resultswithin the time period is included. Anatomical Region Laterality Modality Electrocardiogra phy 03/28/2022 11:1 3 AM EST Impressions 03/28/2022 12:30 PM EST ?[facility] ? Test Date: ?2022-03-28 Pat Name: ? STELLA SCEARCE ?Department: ?? DEPID ? Room: ? Gender: ? Female ? Greeting Card Maker: ?? Ap : ?1945 ? Requested By: [facility] Order Number: [id number] ?Reading MD: ?? Elbert Reyna MD ? Measurements Intervals ?[place] ? Rate: ? 92 ? P: ?77 KS: ? 132 ?QRS: ?82 QRSD: ? 106 ?T: ?48 QT: ? 343 ? QTc: ?425 ? Interpretive Statements SINUS RHYTHM Electronically Signed On 03-28-2022 12:30:04 EST by Elbert Reyna MD Narrative Procedure Note Elbert Reyna MD - 03/28/[address] [facility] Test Date: 2022-03-28 Pat Name: STELLA HYLTON Department: DEPID Room: Gender: Female Greeting Card Maker: Jacob : 1945 Requested By: [facility] Order Number: [id number] Reading MD: Elbert Reyna MD Measurements Intervals [place] Rate: 92 P: 77 [place]: 132 QRS: 82 QRSD: 106 T: 48 QT: 343 QTc: 425 Interpretive Statements SINUS RHYTHM Electronically Signed On 03-28-2022 12:30:04 EST by Elbert Reyna MD us Marivel King DO IMG ECG ORDERABLES Final Resul t * HOLTER MONITOR RECORDING AND ANALYSIS (02/17/2022 9:30 AM EDT) Anatomical Region Laterality Modality Holter/Event Mon itoring 02/26/2022 7:27 AM EDT Impressions 02/26/2022 7:01 PM EDT ? [facility] ? Test Date: ?2022-02-26 Pat Name: ? STELLA HYLTON ?Department: ?? DEPID ? Room: ? Gender: ? Female ? Greeting Card Maker: ?? : ?1945 ? Requested By: MANN Hinton Order Number: [id number] ?Reading MD: ?? Sergio Vincent ? Interpretive Statements C[place] [employer] [place] Date: ??02/17/2022 Referring Provider: ??Dr. Mann Irene MD Patient was monitored for 48 hours. INDICATIONS: Orthostatic hypotension CONCLUSION: Patient monitored for 2d 3h starting on 02/17/2022 09:24 am. Primary rhythm was Sinus Rhythm. Average heart rate was 88 bpm, Minimum heart rate was 67 bpm on Day :29:10 am, Max heart rate was 136 bpm on :57:50 pm SVE(s): [place] was 0.45 %, max count per 24 hours 581 SVT (AT, RT): 1 events, longest event 3 beats on Day :12:59 am, fastest event 181 bpm on Day :12:59 am PVC(s): [place] was 0.08 %, max count per 24 hours 104, 2 disparate morphologies PHYSICIAN SUMMARY: 1. Sinus rhythm with heart rates 67-136 bpm; average 88 bpm. 2. Occasional PACs. Occasional PVCs. 3. No detected arrhythmias. 4. No significant heart block or pauses. 5. No symptoms reported. Electronically Signed On 02-26-2022 19:01:30 EDT by Sergio Vincent Narrative Procedure Note Sergio Vincent MD - 02/26/2022 IMPRESSION [facility] Test Date: 2022-02-26 Pat Name: STELLA HYLTON Department: DEPID Room: Gender: Female Greeting Card Maker: : 1945 Requested By: MANN Hinton Order Number: [id number] Carlos MD: Sergio Vincent Interpretive Statements [place] Date: 02/17/2022 Referring Provider: Dr. Mann Irene MD Patient was monitored for 48 hours. INDICATIONS: Orthostatic hypotension CONCLUSION: Patient monitored for 2d 3h starting on 02/17/2022 09:24 am. Primary rhythm was Sinus Rhythm. Average heart rate was 88 bpm, Minimumheart rate was 67 bpm on Day :29:10 am, Max heart rate was 136 bpm on Day :57:50 pm SVE(s): [place] was 0.45 %, max count per 24 hours 581 SVT (AT, RT): 1 events, longest event 3 beats on Day :12:59 am,fastest event 181 bpm on :12:59 am PVC(s): [place] was 0.08 %, max count per 24 hours 104, 2 disparate morphologies PHYSICIAN SUMMARY: 1. Sinus rhythm with heart rates 67-136 bpm; average 88 bpm. 2. Occasional PACs. Occasional PVCs. 3. No detected arrhythmias. 4. No significant heart block or pauses. 5. No symptoms reported. Electronically Signed On 02-26-2022 19:01:30 EDT by Sergio Vincent Mann Irene MD IMG HOLTER MONITOR ORDERABLES Final Result * [facility] LOWER EXTREMITY ARTERIAL PHYSIOLOGICAL (10/31/2021 12:30 PM EDT) Only the most recent of3 resultswithin the time period is included. Anatomical Region Laterality Modality Vascular, Leg Electrocardiogra phy 10/31/2021 11:5 8 AM EDT Impressions 10/31/2021 3:42 PM EDT Conclusions ??* No evidence of arterial insufficiency is noted in the bilateral lower extremities. ??* Doppler waveforms, PVR's, and pressures are all within normal limits. ??* Digit PPG waveforms are normal and pressures are above healing index. Narrative Procedure Note Conor Diaz, DO - 06/23/2022 IMPRESSION Conclusions * No evidence of arterial insufficiency is noted in the bilaterallower extremities. * Doppler waveforms, PVR's, and pressures are all within normallimits. * Digit PPG waveforms are normal and pressures are above healingindex. Mann Irene MD IMG VASCULAR ORDERABLES Final Result * VITAMIN B12/ FOLIC ACID (09/24/2021 8:48 AM EDT) Vitamin B12 447 232 - 1,245 pg/mL 09/24/2021 4:50 PM EDT [facility] Folate 11.50 >=4.80 ng/mL 09/24/2021 4:50 PM EDT [facility] Blood VENOUS BLOOD / Unknown Venipuncture / Unknown 09/24/2021 8:48 AM EDT 09/24/2021 8:48 AM EDT Narrative [facility] - 09/24/2021 4:50 PM EDT Ingestion of lakshmi doses of biotin (>5 mg/day) taken within 8 hours of drawing blood sample can interfere with this immunoassay test. Mann Irene MD CHEMISTRY ORDERABLES Final Res ult [facility] [address] [facility], [address] [place] [id number] * SARS-COV-2 IGG (03/23/2020 7:53 AM EST) SARS-CoV-2 IgG (Nucleocapsid) Negative 03/23/2020 5:30 PM EST [facility] Blood VENOUS BLOOD / Unknown Venipuncture / Unknown 03/23/2020 7:53 AM EST 03/23/2020 7:54 AM EST Narrative [facility] - 03/23/2020 5:30 PM EST The SARS-CoV-2 IgG assay is a chemiluminescent microparticle immunoassay (CMIA) intended for the qualitative detection of IgG antibodies to SARS-CoV-2 in human serum or plasma. ??It may only be used under the Food and Drug Administration's Emergency Use Authorization. ??The assay is not intended for acute diagnostic purposes. ??Negative results do not preclude acute SARS-CoV-2 infection. ??False positive results may occur due to cross-reactivity from pre-existing antibodies or other possible causes. ??It is unknown for how long antibodies persist following infection and if the presence of IgG confers protective immunity. [facility] IgG Provider Fact Sheet: https://www.fda.gov/media/102733/download [facility] Patient Fact Sheet: ??https://www.fda.gov/media/803110/download [facility] [place] APRN IMMUNOLOGY ORDERABLES Final Result Performing Organization Address [facility] de Phone Number [facility] [address] [place] [address] , [place] [address] * THYROID STIMULATING HORMONE (03/23/2020 7:53 AM EST) Only the most recent of2 resultswithin the time period is included. [facility] TSH 0.629 0.270 - 4.200 mcIU/mL 03/23/2020 4:58 PM EST [facility] Blood VENOUS BLOOD / Unknown Venipuncture / Unknown 03/23/2020 7:53 AM EST 03/23/2020 7:54 AM EST Narrative [facility] - 03/23/2020 4:58 PM EST Ingestion of lakshmi doses of biotin (>5 mg/day) taken within 8 hours of drawing blood sample can interfere with this immunoassay test. [facility] CHEMISTRY ORDERABLES Final Result Performing Organization Address [facility] de Phone Number [facility] [address] [place] [address] , [place] [address] * SCANNED RHYTHM STRIPS (01/03/2020 9:38 AM EDT) Only the most recent of5 resultswithin the time period is included. Anatomical Region Laterality Modality Other 01/03/2020 9:38 AM EDT us Unknown Unknown IMG ECG ORDERABLES Final Result * CALCULI (STONE) ANALYSIS - REF LAB (01/02/2020 3:31 PM EDT) Calculi Comp See Note 01/06/2020 9:39 AM EDT [facility] Comment: Calculi composed primarily of: 80% calcium oxalate monohydrate, 10% calcium oxalate dihydrate, and 10% calcium phosphate (hydroxy- and carbonate- apatite). INTERPRETIVE INFORMATION: Calculi (Stone) analysis Calculi are the products of physiological processes that yield crystalline compounds in a matrix of biological compounds and blood. ??Matrix components are not reported. ??The clinically significant crystalline components identified in calculi specimens are reported. ??Gross description may not be consistent with composition determined by FTIR analysis. Performed By: [facility] [address] [place] [address] Ladle Filler: Lobo Aguilar MD, MS Calculi Mass 37 mg 01/06/2020 9:39 AM EDT [facility] Calculi Number Numerous 01/06/2020 9:39 AM EDT [facility] Calculi Size 1 to 4 mm 01/06/2020 9:39 AM EDT [facility] Calculi Desc See Note 01/06/2020 9:39 AM EDT [facility] Comment: Specimen received in a wet gel substance, not the preferred dry state. Wet specimens often delay analysis. Specimen consists of numerous, small, brown/brown, irregular calculi fragments. Calculus STRUCTURE OF RIGHT URETERAL ORIFICE / Unknown 01/02/2020 3:31 PM EDT 01/02/2020 4:08 PM EDT Amari Wheeler MD MICROBIOLOGY - GENERAL ORDERABLE S Final Result [facility] [address] [place], [place] [id number] * INTRAOP AIRWAY PLACEMENT (01/02/2020 3:02 PM EDT) Narrative [facility] - 01/02/2020 3:02 PM EDT Renetta Oates CRNA ? 01/02/2020 ??3:02 PM Intraop Airway Placement: ??Induction type: ??IV ??Mask size: ??Standard adult ??Pre-Oxygenation: ??Standard ??Mask ventilation: ??Not attempted ??Airway type: ??LMA ??Device size: ??4 ??Placement verified: ??End tidal CO2 ??Condition: ??Atraumatic and Unchanged ??Insertion attempts: ??1 ??Attempt 1 by: TH ??Title: ??WORLD LANGUAGE TEACHER London Cheng MD [place] ANESTHESIA Final Result Performing Organization Address [facility] Co de Phone Number [facility] [address] [place] [address] * CORONAVIRUS 2019 (12/29/2019 10:03 AM EDT) Only the most recent of2 resultswithin the time period is included. [facility] CORONAVIRUS [id number] Not Detected Not Detected 12/29/2019 11:33 PM EDT [facility] Comment:Caution should be ex ercised when interpreting a result of 'Not Detected'. A result of 'Not Detected' does not rule out COVID-19 and cannot be used as sole basis for treatment or patient management decisions. If COVID-19 is still suspected following a 'Not Detected' result, re-testing should be considered. Swab BOTH ANTERIOR NARES / Unknown 12/29/2019 10:03 AM EDT 12/29/2019 10:03 AM EDT Narrative [facility] - 12/29/2019 11:33 PM EDT This test is a nucleic acid amplification test intended for the qualitative detection of nucleic acid from the SARS-CoV-2 in upper respiratory samples collected from individuals suspected of COVID-19. Test is performed on the [employer] platform under the FDA's Emergency Use Authorization (EUA). [employer] Provider Fact Sheet: https://www.fda.gov/media/566914/download [employer] Patient Fact Sheet: ??https://www.fda.gov/media/356430/download us Amari Wheeler MD MICROBIOLOGY - GENERAL ORDERABLE S Final Result Performing Organization Address [facility]/ZIP Co de Phone Number [facility] [address] [facility] , [place] [address] * XR ABDOMEN AP (12/05/2019 11:18 AM EDT) Only the most recent of2 resultswithin the time period is included. Anatomical Region Laterality Modality Abdomen Radiographic Demetra ging 12/05/2019 11:1 8 AM EDT Impressions 12/05/2019 12:06 PM EDT Interval placement right ureteral stent. Inferior pole right renal calculus essentially stable. - Narrative 12/05/2019 12:06 PM EDT CR, ABDOMEN AP, ??12/05/2019 11:18 AM CLINICAL HISTORY: ??R82.79-Other abnormal findings on microbiological examination of qkipp-IXK-23-CM E78.00-Pure hypercholesterolemia, [id number]-XUY-97-CM COMPARISON: ??CT 10/31/2019 PROCEDURE COMMENTS: ??AP view(s) of the abdomen per protocol. FINDINGS: Right ureteral stent in place. Stone or cluster of stones inferior pole right kidney measuring 11 mm stable. No stones along the course of the stent. No left-sided calculi evident. Bowel gas pattern nonspecific. Procedure Note Umang Louie MD - 12/05/2019 CR, ABDOMEN AP, 12/05/2019 11:18 AM CLINICAL HISTORY: R82.79-Other abnormal findings on microbiologicalexamination of qnxgy-REF-25-CM E78.00-Pure hypercholesterolemia, [id number]-UNB-84-CM COMPARISON: CT 10/31/2019 PROCEDURE COMMENTS: AP view(s) of the abdomen per protocol. FINDINGS: Right ureteral stent in place. Stone or cluster of stones inferior poleright kidney measuring 11 mm stable. No stones along the course of the stent.No left-sided calculi evident. Bowel gas pattern nonspecific. IMPRESSION: Interval placement right ureteral stent. Inferior pole right renal calculus essentially stable. - Amari Wheeler MD IMG DIAGNOSTIC IMAGING ORDERABLE S Final Result * FL LITHOTRIPSY (11/28/2019 1:50 PM EDT) Narrative [facility] - 11/28/2019 3:16 PM EDT Fluoroscopy was provided for lithotripsy in the surgery department and will not be interpreted by a Radiologist. ??There is no charge from [facility]. ??Refer to OpNote for Report. us Amari Wheeler MD IMG FLUOROSCOPY ORDERABLES Final Result Performing Organization Address [facility] de Phone Number [facility] * INTRAOP AIRWAY PLACEMENT (11/28/2019 12:56 PM EDT) Narrative [facility] - 11/28/2019 12:56 PM EDT Rachael Milligan CRNA ? 11/28/2019 12:57 PM Intraop Airway Placement: ??Induction type: ??IV ??Mask size: ??Standard adult ??Pre-Oxygenation: ??Standard ??Technique: ??Video laryngoscope ??Laryngoscope blade: ??Fonseca ??Blade size: ??3 ??Grade view: ??I ??Airway type: ??ETT- cuffed ??Topical Anesthetic/Lubricant: ??LTA 4% Lidocaine ??Intubation assist devices: ??Stylet 14fr ??Airway location: ??Oral ??Device size: ??7.5mm ??Secured at: 20 cm ??Secured by: ??Tape ??Measured from: ??Lips ??Placement verified: ??Auscultation, End tidal CO2 and Symmetric chest wall motion ??Condition: ??Atraumatic and Unchanged ??Insertion attempts: ??1 ??Title: ??WORLD LANGUAGE TEACHER us Raghav Nolan MD [place] ANESTHESIA Final Re sult Performing Organization Address [facility] de Phone Number [facility] [address] [place] [address] * CT ABDOMEN PELVIS WO ORAL OR IV CONTRAST (10/31/2019 1:20 AM EDT) Anatomical Region Laterality Modality Abdomen, Pelvis Computed Tomogra phy 10/31/2019 1:20 AM EDT Impressions 10/31/2019 1:28 AM EDT No acute process within abdomen and pelvis. Stable right renal calcification. Stable abdominal aortic aneurysm. - Narrative 10/31/2019 1:[address] ABDOMEN AND PELVIS WITHOUT IV OR ORAL CONTRAST, ??10/31/2019 1:20 AM CLINICAL HISTORY: ??-Flank pain, hematuria COMPARISON: ??07/22/2019 PROCEDURE COMMENTS: Noncontrast multidetector CT examination of the abdomen and pelvis without IV or oral contrast per protocol. Multiplanar reconstructions. Automated exposure control for dose reduction was used. CTDIvol: 11.7 mGy. DLP: 559 mGy-cm. FINDINGS: ?? LOWER THORAX: ??Lung bases unremarkable. ABDOMEN AND PELVIS: Unenhanced images of the liver, adrenals, spleen, pancreas normal. There is a nonobstructing oval stone in the right lower pole kidney, unchanged measuring approximately 11 x 6 mm. Minimal caliectasis and prominence of ureter unchanged. No right ureteral stone noted. No left renal calcifications. No left-sided obstruction. No free air, free fluid. Small bowel loops appear normal. No evidence of appendicitis. Occasional diverticula without diverticulitis. Status post hysterectomy. Artifact in the pelvis from right hip prosthesis. Unchanged 3 cm infrarenal abdominal aortic aneurysm. Procedure Note Jareth Gonzalez MD - 10/31/2019 CT ABDOMEN AND PELVIS WITHOUT IV OR ORAL CONTRAST, 10/31/2019 1:20 AM CLINICAL HISTORY: -Flank pain, hematuria COMPARISON: 07/22/2019 PROCEDURE COMMENTS: Noncontrast multidetector CT examination of theabdomen and pelvis without IV or oral contrast per protocol. Multiplanarreconstructions. Automated exposure control for dose reduction was used. CTDIvol: 11.7 mGy.DLP: 559 mGy-cm. FINDINGS: LOWER THORAX: Lung bases unremarkable. ABDOMEN AND PELVIS: Unenhanced images of the liver, adrenals, spleen,pancreas normal. There is a nonobstructing oval stone in the right lower polekidney, unchanged measuring approximately 11 x 6 mm. Minimal caliectasis andprominence of ureter unchanged. No right ureteral stone noted. No left renal calcifications. No left-sided obstruction. No free air, free fluid. Small bowel loops appear normal. No evidence of appendicitis. Occasional diverticula without diverticulitis. Status post hysterectomy. Artifact inthe pelvis from right hip prosthesis. Unchanged 3 cm infrarenal abdominal aortic aneurysm. IMPRESSION: No acute process within abdomen and pelvis. Stable right renal calcification. Stable abdominal aortic aneurysm. - Jorge Luis Sharif MD IM CT ORDERABLES Fi nal Result * CREATINE KINASE (10/30/2019 11:58 PM EDT) Only the most recent of2 resultswithin the time period is included. Pathologist [facility] CK 79 26 - 192 U/L 10/31/2019 1:19 AM EDT [facility] Blood VENOUS BLOOD / Unknown Venipuncture / Unknown 10/30/2019 11:58 PM EDT 10/31/2019 12:03 AM EDT us Jorge Luis Sharif MD CHEMISTRY ORDERABLES Final Result [facility] [address] [place] [address] * PATHOLOGY TISSUE REQUEST (10/26/2019 10:49 AM EDT) [facility] CASE REPORT Surgical Pathology ?Case: [id number] ? Authorizing Provider: ??Amari Wheeler MD ?Collected: ? 10/26/2019 1049 ? Ordering Location: ? [facility] ?Received: ?10/26/2019 1235 ? Pathologist: ? Albina Reilly MD ? Specimen: ?Bladder, Urinary, bladder biopsy ? 10/28/2019 3:18 PM EDT [facility] FINAL DIAGNOSIS Urinary bladder, biopsy: - Urothelial mucosa with acute and chronic inflammation, and reactive atypia. - Negative for malignancy. 10/28/2019 3:18 PM EDT [facility] ENT 10/28/2019 3:18 PM EDT [facility] GROSS DESCRIPTION Received in formalin, labeled with the patient's name and bladder biopsy is a 0.3 cm in greatest dimension brown-white tissue fragment which is submitted in toto in one cassette. /TE 10/28/2019 3:18 PM EDT [facility] MICROSCOPIC DESCRIPTION Microscopic examination is performed and the findings corroborate the diagnosis. CK 20 immunostain is negative. P53 immunostain shows patchy positivity of basal cells. The immunostains profile supports the diagnosis. 10/28/2019 3:18 PM EDT [facility] SPECIAL STAINS All controls show appropriate reactivity. ASR: Some of the immunohistochemical stains were developed and their performance characteristics determined by [facility]. They have not been cleared or approved by the US Food and Drug Administration. The FDA does not require these tests to go through pre-market FDA review. These tests are used for clinical purposes. They should not be regarded as investigational or for research. This laboratory is certified under the Clinical Laboratory Improvement Amendments (CLIA) as qualified to perform high complexity clinical laboratory testing. 10/28/2019 3:18 PM EDT [facility] EMBEDDED IMAGES 10/28/2019 3:18 PM EDT [facility] Tissue URINARY BLADDER STRUCTURE / Unknown 10/26/2019 10:49 AM EDT 10/26/2019 12:35 PM EDT us Amari Wheeler MD PATHOLOGY ORDERABLES Final Resul t [facility] [address] [place] [address] [address] * INTRAOP AIRWAY PLACEMENT (10/26/2019 10:32 AM EDT) Narrative [facility] - 10/26/2019 10:32 AM EDT Dwaine Dykes CRNA ? 10/26/2019 10:42 AM Intraop Airway Placement: Date/Time: 10/26/2019 10:32 AM ??Induction type: ??IV ??Airway type: ??Nasal cannula salter Michelle Tucker MD [place] ANESTHESIA Edited Result - Final [facility] [address] [place] [address] * CORONAVIRUS 2019 (COVID-19) - REF LAB (10/21/2019 9:52 AM EDT) CORONAVIRUS [id number] NON-DETEC ARNOLD NON-DETEC ARNOLD 10/22/2019 11:54 PM EDT [facility] Comment: A Non-Detected result does not preclude the possibility of 2019-nCoV infection since the adequacy of sample collection and/or low viral burden may result in the presence of viral nucleic acids below the analytical sensitivity of this test method. Test results should be used with caution and in conjunction with other clinical and laboratory data in making a diagnosis. Swab SPECIMEN FROM NASOPHARYNGEAL STRUCTURE / Unknown 10/21/2019 9:52 AM EDT 10/21/2019 9:52 AM EDT Narrative [facility] - 10/22/2019 11:54 PM EDT The SARS-CoV-2 assay is a real-time RT-PCR test intended for the qualitative detection of nucleic acid from the SARS-CoV-2 in respiratory specimens from individuals. Testing is limited to the guidelines of FDA Emergency Use Authorization FDA for performing SARS-CoV-2 testing. All testing is considered laboratory developed and performance characteristics are determined by [facility]. It has not been cleared nor approved by the FDA. The laboratory is accredited through CLIA and deemed qualified to perform high-complexity testing. Such testing is used for clinical purposes and should not be regarded as investigational or for research. [place] Pat ID: [id number]; [place] Req Num: [id number]; [place] Spec ID: [id number] us Amari Wheeler MD LAB SEND OUT ORDERABLES Final Re sult [facility] [address] [place] [address], [place] [phone] * CT ABDOMEN PELVIS HEMATURIA/RENAL MASS PROTOCOL (07/22/2019 9:57 AM EDT) Anatomical Region Laterality Modality Abdomen, Pelvis, Hip, Chest Comp uted Tomography 07/22/2019 9:57 AM EDT Impressions 07/22/2019 11:23 AM EDT 1. 1.5 cm right lower pole renal stone. 2. Right kidney urothelial enhancement, suggesting urothelial inflammation. 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 3. 3 cm AAA. - Narrative 07/22/2019 11:[address] ABDOMEN PELVIS WITH AND WITHOUT CONTRAST HEMATURIA/RENAL MASS PROTOCOL, 07/22/2019 9:57 AM CLINICAL HISTORY: ??Hematuria. ??N39.0-Urinary tract infection, site not [id number]-CM R39.14-Feeling of incomplete bladder [id number]-CM ?? COMPARISON: ??None. PROCEDURE COMMENTS: ??Multi-detector volumetric scanning of the abdomen with multiplanar reformatting following the hematuria protocol. ??Imaging included non-contrast and contrast enhanced phases. Excretory phase imaging included. 75 mL Isovue 370 IV contrast given. ??Automated exposure control for dose reduction was used. CTDIvol: 21.0 mGy. DLP: 2648 mGy-cm. FINDINGS: ?? LOWER THORAX: ??Lung bases unremarkable. ABDOMEN AND PELVIS: Non-contrast phase: ??1.5 cm right lower pole renal stone. Enhancement of right renal pelvis and right lower pole calyceal urothelium, indicating urothelial inflammation. Mild dilation of right upper pole calyces, suggesting stricture/stenosis in right renal hilum due to chronic inflammation from stone. Corticomedullary phase: ??No renal mass lesion identified. Delayed phase: Enhancement of right renal pelvis and right lower pole calyceal urothelium, indicating urothelial inflammation. Mild dilation of right upper pole calyces, suggesting stricture/stenosis in right renal hilum due to chronic inflammation from stone. Right hip replacement streak artifact limits evaluation of the bladder and pelvis. No gross bladder masses or stones. No gross pelvic masses. Remaining viscera: ??3 cm infrarenal AAA. Procedure Note Prabhu Cheatham MD - 07/22/2019 CT ABDOMEN PELVIS WITH AND WITHOUT CONTRAST HEMATURIA/RENAL MASS PROTOCOL, 07/22/2019 9:57 AM CLINICAL HISTORY: Hematuria. N39.0-Urinary tract infection, site not [id number]-CM R39.14-Feeling of incomplete bladder [id number]-CM COMPARISON: None. PROCEDURE COMMENTS: Multi-detector volumetric scanning of the abdomenwith multiplanar reformatting following the hematuria protocol. Imagingincluded non-contrast and contrast enhanced phases. Excretory phase imagingincluded. 75 mL Isovue 370 IV contrast given. Automated exposure control for dosereduction was used. CTDIvol: 21.0 mGy. DLP: 2648 mGy-cm. FINDINGS: LOWER THORAX: Lung bases unremarkable. ABDOMEN AND PELVIS: Non-contrast phase: 1.5 cm right lower pole renal stone. Enhancement ofright renal pelvis and right lower pole calyceal urothelium, indicatingurothelial inflammation. Mild dilation of right upper pole calyces, suggesting stricture/stenosis in right renal hilum due to chronic inflammation fromstone. Corticomedullary phase: No renal mass lesion identified. Delayed phase: Enhancement of right renal pelvis and right lower polecalyceal urothelium, indicating urothelial inflammation. Mild dilation of rightupper pole calyces, suggesting stricture/stenosis in right renal hilum due tochronic inflammation from stone. Right hip replacement streak artifact limitsevaluation of the bladder and pelvis. No gross bladder masses or stones. No grosspelvic masses. Remaining viscera: 3 cm infrarenal AAA. IMPRESSION: 1. 1.5 cm right lower pole renal stone. 2. Right kidney urothelial enhancement, suggesting urothelialinflammation. There is also suspected infundibular/pelvic stricture in the right kidney,as there is isolated right upper pole calyceal dilation/hydronephrosis. 3. 3 cm AAA. - Amari Wheeler MD IMG CT ORDERABLES Final Result * CREATININE ISTAT (07/22/2019 9:48 AM EDT) [facility] Creatinine-iST AT 0.6 0.6 - 1.3 mg/dL 07/22/2019 9:49 AM EDT [facility] Blood BLOOD SPECIMEN / Unknown 07/22/2019 9:48 AM EDT 07/22/2019 9:49 AM EDT Amari Wheeler MD POINT OF CARE TEST ORDERABLES Fi nal Result [facility] [address] [place] [address] * NON-CRISIS COUNSELOR CYTOLOGY REQUEST (07/20/2019 2:53 PM EDT) [facility] CASE REPORT Non-gynecologi c Cytology ?Case: [id number] ? Authorizing Provider: ??Amari Wheeler MD ?Collected: ? 07/20/2019 1453 ? Ordering Location: ? [facility] NPTFTT ? Received: ?07/20/2019 1453 ? Pathologist: ? Albina Reilly MD ? Specimen: ?Bladder, Urinary ? 07/21/2019 2:09 PM EDT [facility] NON-CRISIS COUNSELOR CYTOLOGY FINAL DIAGNOSIS Urinary bladder washing: - Negative for high grade urothelial carcinoma. - Benign urothelial cells and abundant acute inflammation. 07/21/2019 2:09 PM EDT [facility] DDED IMAGES 07/21/2019 2:09 PM EDT [facility] MICROSCOPIC DESCRIPTION Microscopic examination is performed and the findings corroborate the diagnosis. 07/21/2019 2:09 PM EDT [facility] GROSS DESCRIPTION Urine, Bladder,Rec'd 90ml Momin fluid.(TP) 07/21/2019 2:09 PM EDT [facility] Urine URINARY BLADDER STRUCTURE / Unknown 07/20/2019 2:53 PM EDT 07/20/2019 2:53 PM EDT Amari Wheeler MD CYTOLOGY ORDERABLES Final Result [facility] [address] [place] [address] * POCT BLADDER SCAN (07/20/2019 11:37 AM EDT) Urine Volume (Preservative) 24 ml [facility] 07/20/2019 11:3 7 AM EDT Amari Wheeler MD POINT OF CARE IMAGING Final Resu lt [facility] * (ABNORMAL) POCT URINALYSIS DIPSTICK (07/20/2019 11:37 AM EDT) Only the most recent of5 resultswithin the time period is included. Color, UA yellow CLEAR,YELL OW,ORANGE, [place] [facility] Clarity, UA clear CLEAR,CLOU DY [facility] Glucose, UA neg G/DL% [facility] Bilirubin, UA neg POS/NEG [facility] Ketones, UA neg POS/NEG SEP costume seamstress Grav, UA 1.025 1.001 - 1.035 G/DL [facility] Blood, UA 3+ POS/NEG [facility] pH, UA 6.0 5.0 - 8 [facility] Protein, UA 1+ POS/NEG SE[facility] Urobilinogen, UA neg 0.2 - 1.0 MG/DL [facility] Leukocytes, UA 3+ POS/NEG [facility] Nitrite, UA neg POS/NEG [facility] UA Appear POC [facility] OFF[facility] Lot Number SEP OFFICE Expiration Date SEP OFFICE SeriAl # SEP OFFICE Urine 07/20/2019 11:3 7 AM EDT Amari Wheeler MD POINT OF CARE TEST ORDERABLES Fi nal Result Performing Organization Address [facility] de Phone Number SEP OFFICE * INTRAOP AIRWAY PLACEMENT (03/14/2019 9:37 AM EST) Narrative [facility] - 03/14/2019 9:37 AM EST Rose Gooden WORLD LANGUAGE TEACHER ? 03/14/2019 ??9:37 AM Intraop Airway Placement: ??Airway type: ??Nasal cannula salter Rose Gooden CRNA [place] ANESTHESIA F inal Result Performing Organization Address [facility] de Phone Number [facility] [address] [place] [address] * INTRAOP AIRWAY PLACEMENT (02/28/2019 9:46 AM EDT) Narrative [facility] - 02/28/2019 9:46 AM EDT Rose Gooden WORLD LANGUAGE TEACHER ? 02/28/2019 ??9:46 AM Intraop Airway Placement: ??Airway type: ??Nasal cannula salter us Lexi Golden MD [place] ANESTHESIA Final R esult Performing Organization Address [facility] de Phone Number [facility] [address] [place] [address] * DX BONE DENSITY AXIAL SKELETON (02/10/2019 11:38 AM EDT) Anatomical Region Laterality Modality Dexa Scan 02/10/2019 Narrative 02/10/2019 2:04 PM EDT Indication: The patient is a female age 65 or older who requires a bone density assessment. Study was performed on [facility] 5. Bone Density: Region ?BMD ? T-score ? Z- score ?? Femoral Neck (Left) ? 0.645 ?-1.8 ? 0.0 ? Total Hip (Left) ?0.705 ?-1.9 ?-0.4 ? 1/3 Radius (Right) ?0.522 ?-2.9 ?-0.7 ? World Health Organization criteria for BMD interpretation classify patients as: Normal (T-score at or above -1.0), Low Bone Density (T-score between -1.0 and -2.5), or Osteoporotic (T-score at or below -2.5). T Scores are reported in Postmenopausal women and in men age 50 and older. Z-scores are reported in females prior to menopause and in males younger than age 50. 10-year Fracture Risk(1): Major Osteoporotic Fracture ?11% Hip Fracture ? 2.0% Reported Risk Factors: [place] (), Neck BMD=0.645, BMI=30.8 (1) FRAX(R) Version 3.08. Fracture probability calculated for an untreated patient. Fracture probability may be lower if the patient has received treatment. Clinical Information Provided by Patient: Has used or is currently using the following medications: Vitamin D, Diuretic Has had or currently has the following medical conditions: Back pain, Hip pain Patient maximum height was 63.0 Menopause Age: 26 Patient is Postmenopausal Interpretation: Bone mineral density is in the osteoporotic range. Medical evaluation for secondary causes of low bone density may be appropriate. A minimum of two years may be required between bone density studies due to inherent testing precision limitations. Intervals between BMD testing should be determined according to each patient's clinical status: typically one year after initiation or change of therapy is appropriate, with longer intervals once therapeutic effect is established. Patient's FRAX score indicates that the patient is at no increased risk for a fragility fracture in the next 10 years. Patient's FRAX score is included in the body of this report. ?? The spine portion of the study is omitted due to hypertrophic change. The right hip portion of the study is omitted due to surgical hardware within the region of interest. Reported by: Chula Smith PA-C, CCD on 02/10/2019 12:48:00 PM. Mann Irene MD IMG DEXA ORDERABLES Final Resu lt * HEMOGLOBIN AND HEMATOCRIT (12/31/2018 6:42 AM EDT) Only the most recent of6 resultswithin the time period is included. Hgb 11.3 11.2 - 15.7 g/dL 12/31/2018 7:01 AM EDT [facility] Hct 36.7 34.0 - 45.0 % 12/31/2018 7:01 AM EDT [facility] Blood Venipuncture / Unknown 12/31/2018 6:42 AM EDT 12/31/2018 6:51 AM EDT Bruce Oh MD HEMATOLOGY ORDERABLES Final Result [facility] [address] [place] [address] , [address] [place] [id number] * XR KNEE LEFT AP AND LATERAL (12/28/2018 5:06 PM EDT) Anatomical Region Laterality Modality Knee Radiographic Demetra ging 12/28/2018 5:06 PM EDT Impressions 12/28/2018 5:11 PM EDT Status post left total knee arthroplasty with no visible complication. - Narrative 12/28/2018 5:11 PM EDT LEFT KNEE AP AND LATERAL, ??12/28/2018 5:06 PM CLINICAL HISTORY: ??-Post-Op Total Knee Replacement COMPARISON: ??None. PROCEDURE COMMENTS: AP and lateral views of the left knee. FINDINGS: Status post left total knee arthroplasty with a patellar resurfacing component. The prosthesis appears normally positioned with no visible complication. Expected postsurgical intra-articular and subcutaneous gas. Procedure Note Sieve, Carrington C, MD - 12/28/2018 LEFT KNEE AP AND LATERAL, 12/28/2018 5:06 PM CLINICAL HISTORY: -Post-Op Total Knee Replacement COMPARISON: None. PROCEDURE COMMENTS: AP and lateral views of the left knee. FINDINGS: Status post left total knee arthroplasty with a patellar resurfacingcomponent. The prosthesis appears normally positioned with no visible complication. Expected postsurgical intra-articular and subcutaneous gas. IMPRESSION: Status post left total knee arthroplasty with no visible complication. - Bruce Oh MD [facility] ORDER LILLIAN Final Result * FL < 1 HOUR (12/28/2018 3:17 PM EDT) Only the most recent of3 resultswithin the time period is included. Narrative PACS - 12/28/2018 3:18 PM EDT Fluoroscopy was performed. The radiologist was not in attendance. No permanent images were obtained. This dictation is being made for record keeping purposes. Bruce REMY FLUOROSCOPY ORDERABLES F inal Result PACS * INTRAOP AIRWAY PLACEMENT (12/28/2018 2:56 PM EDT) Narrative [facility] - 12/28/2018 2:56 PM EDT Noelle Joy ? 12/28/2018 ??3:00 PM Intraop Airway Placement: Date/Time: 12/28/2018 2:28 PM ??Induction type: ??IV ??Mask size: ??Standard adult ??Pre-Oxygenation: ??Standard ??Mask ventilation: ??Easy mask ventilation ??Mask ventilation improved by: ??Oral airway ??Oral airway sizes: ??90 ??Technique: ??Video laryngoscope ??Laryngoscope blade: ??Fonseca ??Blade size: ??3 ??Grade view: ??I ??Airway type: ??ETT- cuffed ??Intubation assist devices: ??Stylet 14fr ??Airway location: ??Oral ??Device size: ??7mm ??Secured at: 21 cm ??Measured from: ??Gum ??Placement verified: ??Auscultation, End tidal CO2 and Symmetric chest wall motion ??Condition: ??Atraumatic and Unchanged ??Insertion attempts: ??1 ??Title: ??RNSA Procedure Note Noelle Joy - 12/28/2018 2:56 PM EDT Intraop Airway Placement: Date/Time: 12/28/2018 2:28 PM Induction type: IV Mask size: Standard adult Pre-Oxygenation: Standard Mask ventilation: Easy mask ventilation Mask ventilation improved by: Oral airway Oral airway sizes: 90 Technique: Video laryngoscope Laryngoscope blade: Fonseca Blade size: 3 Grade view: I Airway type: ETT- cuffed Intubation assist devices: Stylet 14fr Airway location: Oral Device size: 7mm Secured at: 21 cm Measured from: Gum Placement verified: Auscultation, End tidal CO2 and Symmetric chestwall motion Condition: Atraumatic and Unchanged Insertion attempts: 1 Title: RNSA ETT placed after LMA would not seat due to patient being edentulous. us Jonathan Holland MD [place] ANESTHESIA Edited [facility] [address] [place] [address] * Peripheral Block by Anesthesia (12/28/2018 1:34 PM EDT) Narrative [facility] - 12/28/2018 1:34 PM EDT Marisol Alva MD ? 12/28/2018 ??1:35 PM Peripheral Block by Anesthesia Procedure Date/Time: 12/28/2018 1:09 PM Patient location during procedure: holding area Reason for block: at surgeon's request and post-op pain management Staff and Pre-procedure checks Anesthesiologist: Marisol Alva MD Other anesthesia staff: Dinorah Celaya RN Performed: anesthesiologist Preanesthetic Checklist: Allergies confirmed, Block plan confirmed, Necessary block equipment present, Supplemental O2 applied, if needed, Anticoagulant confirmed, Block site marked, Patient identified- 2 criteria, Surgical procedure consent verified, Aseptic technique used, Drug/solution labeled, Resuscitaion equipment available, STACIE recommended monitors applied, IV access functioning and Sedation given, if needed Immediate perianesthetic assessment completed: Yes Patient position: Prep: Chloraprep Monitoring: BP, EKG, O2 Sat and Mental status assessed Peripheral Block Block type: Adductor Canal Block Laterality: Left Injection technique: single-shot Medication: 20ml, Bupivacaine 0.5% w/ epinephrine Needle Needle type: Stimuplex Needle length: 4 in (100mm) Nerve localization: anatomical landmarks and ultrasound guidance (Adductor Canal block- Sartorius and Vastus Medialis muscle, Femoral artery and Saphenous nerve are identified; the tip of the needle and spread of the local anesthetic around the Saphenous nerve are visualized.) Ultrasound probe: linear Ultrasound needle approach: out of plane Assessment Block success: a full evaluation pending Events: Uneventful Heart rate change: no Blood aspirated: no Paresthesia pain: none Resistance on injection: normal Intermittent incremental injection LA at 5ml LA surrounding nerve by ultrasonographc visualization Procedure Note Marisol Alva MD - 12/28/2018 1:34 PM EDT Peripheral Block by Anesthesia Procedure Date/Time: 12/28/2018 1:09 PM Patient location during procedure: holding area Reason for block: at surgeon's request and post-op pain management Staff and Pre-procedure checks Anesthesiologist: Marisol Alva MD Other anesthesia staff: Dinorah Celaya RN Performed: anesthesiologist Preanesthetic Checklist: Allergies confirmed, Block plan confirmed,Necessary block equipment present, Supplemental O2 applied, if needed,Anticoagulant confirmed, Block site marked, Patient identified- 2criteria, Surgical procedure consent verified, Aseptic technique used,Drug/solution labeled, Resuscitaion equipment available, STACIE recommendedmonitors applied, IV access functioning and Sedation given, if needed Immediate perianesthetic assessment completed: Yes Patient position: Prep: Chloraprep Monitoring: BP, EKG, O2 Sat and Mental status assessed Peripheral Block Block type: Adductor Canal Block Laterality: Left Injection technique: single-shot Medication: 20ml, Bupivacaine 0.5% w/ epinephrine Needle Needle type: Stimuplex Needle length: 4 in (100mm) Nerve localization: anatomical landmarks and ultrasound guidance (AdductorCanal block- Sartorius and Vastus Medialis muscle, Femoral artery andSaphenous nerve are identified; the tip of the needle and spread of thelocal anesthetic around the Saphenous nerve are visualized.) Ultrasound probe: linear Ultrasound needle approach: out of plane Assessment Block success: a full evaluation pending Events: Uneventful Heart rate change: no Blood aspirated: no Paresthesia pain: none Resistance on injection: normal Intermittent incremental injection LA at 5ml LA surrounding nerve by ultrasonographc visualization us Marisol Alva MD ANESTHESIA ORDERABLES Final Resu lt Performing Organization Address [facility] Co de Phone Number [facility] [address] [place] [address] * BB HISTORY CHECK (12/15/2018 9:33 AM EDT) Pathologist [facility] BB HISTORY CHECK (1) Previous History OK 12/15/2018 9:56 AM EDT [facility] Blood VENOUS BLOOD / Unknown Venipuncture / Unknown 12/15/2018 9:33 AM EDT 12/15/2018 9:40 AM EDT us Bruce Oh MD BLOOD BANK ORDERABLES Final Result Performing Organization Address [facility] Co de Phone Number [facility] BLOOD [address] [address] * SURGERY DATE (12/15/2018 9:33 AM EDT) Pathologist [facility] Surgery Date (1) Complete 12/15/2018 9:57 AM EDT [facility] Blood VENOUS BLOOD / Unknown Venipuncture / Unknown 12/15/2018 9:33 AM EDT 12/15/2018 9:40 AM EDT Bruce Oh MD BLOOD BANK ORDERABLES Final Result Performing Organization Address [facility] Co de Phone Number [facility] [address] [place] [id number] * ABORH (12/15/2018 9:33 AM EDT) Only the most recent of2 resultswithin the time period is included. Pathologist [facility] ABORH Int O POS 12/15/2018 11:27 AM EDT [facility] Blood VENOUS BLOOD / Unknown Venipuncture / Unknown 12/15/2018 9:33 AM EDT 12/15/2018 9:40 AM EDT Bruce Oh MD BLOOD BANK ORDERABLES Final Result Performing Organization Address [facility] Co de Phone Number [facility] [address] [place], [place] [id number] * PT / INR (12/15/2018 9:33 AM EDT) Only the most recent of2 resultswithin the time period is included. [facility] PT 11.4 9.7 - 12.5 second(s) 12/15/2018 10:01 AM EDT [facility] INR 1.01 0.86 - 1.10 no units 12/15/2018 10:01 AM EDT [facility] Comment: Level of Therapy ? Indications ?Target INR Range Standard Dose Treatment and prophylaxis of venous ? 2.0 - 3.0 ? thrombosis, pulmonary embolism High Dose ? High risk patients with mechanical ? 2.5 - 3.5 ? heart valves Blood VENOUS BLOOD / Unknown Venipuncture / Unknown 12/15/2018 9:33 AM EDT 12/15/2018 9:40 AM EDT Bruce Oh MD HEMATOLOGY ORDERABLES Final Result Performing Organization Address [facility] de Phone Number [facility] [address] [facility], [address] [place] [id number] * ANTIBODY SCREEN IGG (12/15/2018 9:33 AM EDT) Only the most recent of2 resultswithin the time period is included. Pathologist [facility] ABSC IgG Int Negative 12/15/2018 11:03 AM EDT [facility] Blood VENOUS BLOOD / Unknown Venipuncture / Unknown 12/15/2018 9:33 AM EDT 12/15/2018 9:40 AM EDT Result [facility] Bruce Oh MD BLOOD BANK ORDERABLES Final Result [facility] [address] [place] [address] * MM MOBILE MAMMO DIGITAL SCREEN W CAD ZEB (10/15/2018 8:41 AM EDT) Only the most recent of2 resultswithin the time period is included. Anatomical Region Laterality Modality Breast Mammography 10/18/2018 7:37 AM EDT Impressions 10/18/2018 7:37 AM EDT Negative ??([id number]) ~ RECOMMENDATION: Routine screening mammogram in 1 year. ~ DISCLAIMER * Any patient with a palpable abnormality, unexplained by breast imaging, should be managed on clinical basis by the attending physician. * Breast imaging has a false negative rate of 15%. * The patient was notified by mail of the results of this examination. *The patient's information was entered into a reminder system with a target due date for the next mammogram. The mammogram was reviewed by a Radiologist and CAD. Narrative 10/18/2018 7:37 AM EDT Procedure:MM MOBILE MAMMO DIGITAL SCREEN W CAD ZEB ~ Reason for exam: screening, asymptomatic. Z12.31-Encounter for screening mammogram for malignant neoplasm of [id number]-CM ~ MM MOBILE MAMMO DIGITAL SCREEN W CAD ZEB Bilateral CC and MLO view(s) were taken. There are scattered fibroglandular densities. Prior study comparison: Compared with prior studies the most recent being 09/14/17, 10/07/13 No mammographic evidence of malignancy. ~ Procedure Note Bin Candelario MD - 10/18/2018 Procedure:MM MOBILE MAMMO DIGITAL SCREEN W CAD ZEB ~ Reason for exam: screening, asymptomatic. Z12.31-Encounter for screening mammogram for malignant neoplasm of [id number]-TQF-56-CM ~ MM MOBILE MAMMO DIGITAL SCREEN W CAD ZEB Bilateral CC and MLO view(s) were taken. There are scattered fibroglandular densities. Prior study comparison: Compared with prior studies the most recentbeing 09/14/17, 10/07/13 No mammographic evidence of malignancy. ~ IMPRESSION: Negative ([id number]-7) ~ RECOMMENDATION: Routine screening mammogram in 1 year. ~ DISCLAIMER * Any patient with a palpable abnormality, unexplained by breast imaging, should be managed on clinical basis by the attending physician. * Breast imaging has a false negative rate of 15%. * The patient was notified by mail of the results of this examination. *The patient's information was entered into a reminder system with atarget due date for the next mammogram. The mammogram was reviewed by a Radiologist and CAD. us Mann Irene MD IMG MAMMOGRAPHY ORDERABLES Fin al Result * HEPATITIS C ANTIBODY - SCREENING (10/13/2017 8:26 AM EDT) Hep C Ab Non-Reactiv e Non-Reacti ve 10/13/2017 6:45 PM EDT [facility] Blood VENOUS BLOOD / Unknown Venipuncture / Unknown 10/13/2017 8:26 AM EDT 10/13/2017 8:26 AM EDT Mann Irene MD HEMATOLOGY ORDERABLES Final Re sult [employer] [address] [place] [address], [place] [address] * POCT INFLUENZA A/B (07/30/2015 12:16 PM EDT) Influenza A Ag neg SEP OFFICE Influenza B Ag neg SEP OFFICE Lot Number SEP OFFICE Expiration Date SEP OFFICE 07/30/2015 12:1 6 PM EDT Mann Irene MD POINT OF CARE TEST ORDERABLES Final Result SEP OFFICE * URIC ACID (03/02/2015 3:22 PM EDT) Uric Acid 4.6 2.4 - 5.7 mg/dL [facility] Blood specimen (specimen) UPPER LIMB STRUCTURE / Unknown 03/02/2015 3:22 PM EDT 03/02/2015 9:30 PM EDT us Stefania Braun MD CHEMISTRY ORDERABLE S Final Result Performing Organization Address [facility] de Phone Number [facility] [address] [place] [address] * LDL, CALCULATED (09/01/2014 9:01 AM EDT) Only the most recent of3 resultswithin the time period is included. LDL Calculated 89 <=100 mg/dL [facility] Comment: ??< 100 ?Optimal 100 - 129 ? Near or above optimal 130 - 159 ? Borderline High 160 - 189 ? High >= 190 ?Very High Blood specimen (specimen) 09/01/2014 9:01 AM EDT 09/01/2014 7:00 PM EDT us Mann Irene MD CHEMISTRY ORDERABLES Final Res ult Performing Organization Address [facility] de Phone Number [facility] [address] [place] [address] * LIPID PANEL REFLEX (09/01/2014 9:01 AM EDT) Only the most recent of3 resultswithin the time period is included. Cholesterol 148 <=200 mg/dL [facility] Comment: < 200 ?Desirable 200 - 239 ? Borderline High >= 240 ?High Triglyceride 77 <=150 mg/dL [facility] Comment: < 150 ? Normal 150 - 199 ?Borderline High 200 - 499 ?High ??>= 500 ? Very High HDL 44 >=40 mg/dL [facility] Comment: ?? > 60 ?Optimal 40 - 60 ?Acceptable ?? < 40 ?Low Blood specimen (specimen) UPPER LIMB STRUCTURE / Unknown 09/01/2014 9:01 AM EDT 09/01/2014 7:00 PM EDT Mann Irene MD CHEMISTRY ORDERABLES Edited Re sult - Final Performing Organization Address [facility] Co de Phone Number [facility] [address] [place] [address] * DIFFERENTIAL (09/01/2014 9:01 AM EDT) Only the most recent of3 resultswithin the time period is included. Neut Percent 60.7 % [facility] Lymph Percent 27.1 % [facility] [place] Percent 6.4 % [facility] Eos Percent 4.8 % [facility] Baso Percent 1.0 % [facility] Neut# 5.0 1.8 - 7.7 x10(3)/mcL [facility] Lymph# 2.2 0.6 - 4.8 x10(3)/mcL [facility] [place]# 0.5 0.0 - 1.3 x10(3)/mcL [facility] Eos# 0.4 0.0 - 0.5 x10(3)/mcL [facility] Baso# 0.1 0.0 - 0.2 x10(3)/mcL [facility] Blood specimen (specimen) 09/01/2014 9:01 AM EDT 09/01/2014 7:00 PM EDT Mann Irene MD HEMATOLOGY ORDERABLES Final Re sult Performing Organization Address [facility] de Phone Number [facility] [address] [place] [address] * GMED COLONOSCOPY (07/10/2014 12:00 PM EST) 07/10/2014 12:0 0 PM EST Impressions [facility] - 07/10/2014 12:20 PM EST Polyp (3 mm) in the distal sigmoid colon. (Polypectomy). Plan: Follow-up as needed This section is an excerpt of the full report. Edil Mann MD GI PROCEDURE ORDERABLES Fin al Result Performing Organization Address [facility] Co de Phone Number [facility] [address] [place] [address] * PATHOLOGY TISSUE REPORT (07/10/2014 12:00 PM EST) Surgical Pathology Report ? PATIENT NAME:STELLA HYLTON ?Surgical Pathology Report ? Accession Number ?Collected Date/Time ? Received Date/Time ? [id number] ? 07/10/14 12:00 EST ?07/10/14 21:39 EST ? Diagnosis ? Distal sigmoid colon, endoscopic polypectomy: ? - Hyperplastic polyp. ? MONIKA HSU ? (Electronically signed by) ? Verified: 07/11/2014 ? [facility] ? Clinical Information ? Screening, colorectal cancer. ? Polyp in the distal sigmoid colon. ? Gross Description ? Received in formalin labeled with the patient? s name and ? ? distal sigmoid ? polyp? ? is a single fragment of brown tissue, 0.5 cm in greatest dimension. ? Entirely submitted in one ? cassette. /[place] ? KM /JR ? Microscopic Description ? Microscopic examination is performed and the findings corroborate the ? diagnosis. [facility] 07/10/2014 12:0 0 PM EST us Edil Mann MD PATHOLOGY ORDERABLES Final Result [facility] [address] [place] [address] * SCANNED PRE/POST PROCEDURES (02/23/2014 10:17 AM EDT) Narrative Procedure Note Unknown, Unknown - 02/23/2014 10:17 AM EDT us Unknown Unknown PROCEDURE/MINOR SURGICAL ORDERAB LES Final Result * SCANNED ANESTHESIA FORMS (02/23/2014 10:17 AM EDT) Narrative Procedure Note Unknown, Unknown - 02/23/2014 10:17 AM EDT us Unknown Unknown PROCEDURE/MINOR SURGICAL ORDERAB LES Final Result * XR PELVIS (02/16/2014 11:29 AM EDT) Anatomical Region Laterality Modality Pelvis Radiographic Demetra ging 02/16/2014 11:0 3 AM EDT Narrative 02/16/2014 11:35 AM EDT PROCEDURE: Portable pelvis, 02/16/2014. INDICATION: Postop hip surgery. FINDINGS: AP portable pelvis. No prior. Recent postoperative changes right total of arthroplasty. No unexpected retained radiopaque foreign body. Clips projected over the superior pubic ramus on the right are stable compared to prior examination 12/22. IMPRESSION: Baseline postoperative right total hip arthroplasty. Procedure Note Taiwo Puentes MD - 02/16/2014 PROCEDURE: Portable pelvis, 02/16/2014. INDICATION: Postop hip surgery. FINDINGS: AP portable pelvis. No prior. Recent postoperative changes righttotal of arthroplasty. No unexpected retained radiopaque foreign body. Clipsprojected over the superior pubic ramus on the right are stable compared to prior examination 12/22. IMPRESSION: Baseline postoperative right total hip arthroplasty. Tiffany Raya Caro GOMEZ IMG DIAGNOSTIC IMAGING ORD ERABLES Final Result * XR HIP INTRAOPERATIVE RIGHT (02/16/2014 10:36 AM EDT) Anatomical Region Laterality Modality Hip Radiographic Demetra ging 02/16/2014 9:16 AM EDT Impressions 02/16/2014 2:54 PM EDT IMPRESSION: Digital spots from right ANANTH. Narrative 02/16/2014 2:54 PM EDT PROCEDURE: Digital spots right hip, 02/16/2014. INDICATION: Surgery. FINDINGS: 3 digital spots of right hip from total hip arthroplasty procedure. Images obtained for permanent record keeping purposes. Fluoro time 0.25 minute. Procedure Note Taiwo Puentes MD - 02/16/2014 PROCEDURE: Digital spots right hip, 02/16/2014. INDICATION: Surgery. FINDINGS: 3 digital spots of right hip from total hip arthroplastyprocedure. Images obtained for permanent record keeping purposes. Fluoro time 0.25 minute. IMPRESSION: Digital spots from right ANANTH. us Bruce Oh MD IMG DIAGNOSTIC IMAGING ORDER LILLIAN Final Result * STAPHYLOCOCCUS AUREUS SCREEN (02/09/2014 8:40 AM EDT) Final No growth of Staphylococcus aureus [facility] Nasal 02/09/2014 8:40 AM EDT 02/09/2014 9:54 AM EDT us Bruce Oh MD MICROBIOLOGY - GENERAL ORDER LILLIAN Final Result Performing Organization Address [facility] de Phone Number [facility] [address] [place] [address] * PARTIAL THROMBOPLASTIN TIME (02/09/2014 8:40 AM EDT) PTT 30.8 25.6 - 35.5 second(s) [facility] Comment: Therapeutic range for direct thrombin inhibitors: Argatroban is 1.5 to 3 times the aPTT baseline. Lepirudin is 1.5 to 2 times the aPTT baseline. The aPTT should not exceed 100 seconds. The dosage of Argatroban should be decreased in patients with hepatic impairment. ??The dosage of Lepirudin should be decreased in renal insufficiency. The aPTT is no longer the appropriate test to monitor unfractionated heparin anticoagulation. Blood specimen (specimen) 02/09/2014 8:40 AM EDT 02/09/2014 8:44 AM EDT us Bruce Oh MD HEMATOLOGY ORDERABLES Final Result Performing Organization Address [facility] de Phone Number [facility] [address] [place] [address] * MRI FEMUR RIGHT WO CONTRAST (12/21/2013 6:04 PM EDT) Anatomical Region Laterality Modality Thigh Magnetic Resonan ce 12/21/2013 4:35 PM EDT Impressions 12/22/2013 8:19 AM EDT IMPRESSION: Severe right hip osteoarthritis. Large amount of marrow edema on both sides of the joint including stress fracture or nondisplaced fracture within the right femoral neck and intertrochanteric region. Code jot stat Narrative 12/22/2013 8:19 AM EDT MRI FEMUR RIGHT WO CONTRAST ??Dec 21, 2013 06:04:28 PM Clinical: ??Right groin to knee pain. Routine imaging was done with a 1.5 Erin magnet. The entirety of the femur was imaged except the distal metaphysis. FINDINGS: As on plain films there is marked superior hip joint space narrowing with subchondral cyst formation on both sides of the joint. There is collar osteophyte at the femoral head. Extensive marrow edema involves the right acetabulum, the right femoral head, the femoral neck and extends into the intertrochanteric region. Some linear low signal within the femoral neck and intertrochanteric region is concordant with stress fracture or nondisplaced fracture. A large hip joint effusion is present and there are loose bodies. The femoral shaft shows normal marrow signal. Muscles around the right hip and in the thigh are normal in morphology and signal intensity. Procedure Note Bin Candelario MD - 12/22/2013 MRI FEMUR RIGHT WO CONTRAST Dec 21, 2013 06:04:28 PM Clinical: Right groin to knee pain. Routine imaging was done with a 1.5 Erin magnet. The entirety of thefemur was imaged except the distal metaphysis. FINDINGS: As on plain films there is marked superior hip joint space narrowing withsubchondral cyst formation on both sides of the joint. There is collar osteophyte at thefemoral head. Extensive marrow edema involves the right acetabulum, the right femoral head, thefemoral neck and extends into the intertrochanteric region. Some linear low signal withinthe femoral neck and intertrochanteric region is concordant with stress fracture ornondisplaced fracture. A large hip joint effusion is present and there are loose bodies. The femoralshaft shows normal marrow signal. Muscles around the right hip and in the thigh are normal inmorphology and signal intensity. IMPRESSION: Severe right hip osteoarthritis. Large amount of marrow edemaon both sides of the joint including stress fracture or nondisplaced fracture within the rightfemoral neck and intertrochanteric region. Code jot stat us Mann Irene MD [facility] MRI ORDERABLES Final Resul t * XR FEMUR RIGHT AP AND LATERAL (12/16/2013 1:48 PM EDT) Anatomical Region Laterality Modality Thigh Radiographic Demetra ging 12/16/2013 1:04 PM EDT Impressions 12/16/2013 3:09 PM EDT IMPRESSION: Osteoarthritis of the right hip joint. Otherwise, normal right femur. Narrative 12/16/2013 3:09 PM EDT XR FEMUR RIGHT AP AND LATERAL ??Dec 16, 2013 01:48:57 PM Clinical: 729.5-Pain in [id number]-DJE-4-CM COMPARISONS: None. FINDINGS: There are no acute or healing fractures in the right femur. 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 The surrounding soft tissues are normal. Procedure Note Chasity Marie MD - 12/16/2013 XR FEMUR RIGHT AP AND LATERAL Dec 16, 2013 01:48:57 PM Clinical: 729.5-Pain in [id number]-RZC-9-CM COMPARISONS: None. FINDINGS: There are no acute or healing fractures in the right femur. There ismoderate osteoarthritis of the right femoral acetabular joint. The surrounding soft tissues arenormal. IMPRESSION: Osteoarthritis of the right hip joint. Otherwise, normal right femur. Stefania Braun MD [facility] DIAGNOSTIC IMAG ING ORDERABLES Final Result * MM MAMMO DIGITAL SCREENING W CAD BILAT (10/07/2013 1:12 PM EDT) Anatomical Region Laterality Modality Breast Bilateral Mammography 10/10/2013 8:38 AM EDT Impressions 10/11/2013 9:06 AM EDT : Negative ??([id number]-6) ~ RECOMMENDATION: Routine screening mammogram in 1 year. ~ * The patient with a palpable abnormality, unexplained by breast imaging, should be managed on clinical basis by the attending physician. * Breast imaging has a false negative rate of 15%. * The patient was notified by mail of the results of this examination. *The patient's information was entered into a reminder system with a target due date for the next mammogram. The mammogram was reviewed by a Radiologist and CAD. Narrative 10/11/2013 9:06 AM EDT Procedure:MM MAMMO DIGITAL SCREENING W CAD BILAT ~ Reason for exam: screening ??(asymptomatic). ~ MM MAMMO DIG SCREEN CAD BILAT Bilateral CC and MLO view(s) were taken. No prior studies available for comparison. There are scattered fibroglandular densities. ??There are bilateral normal appearing lymph nodes in the axillary tail regions. ??There are no suspicious masses, microcalcifications or areas of architectural distortion in either breast. ~ Procedure Note aCrl Tomlinson MD - 10/11/2013 Procedure:MM MAMMO DIGITAL SCREENING W CAD BILAT ~ Reason for exam: screening (asymptomatic). ~ MM MAMMO DIG SCREEN CAD BILAT Bilateral CC and MLO view(s) were taken. No prior studies available for comparison. There are scattered fibroglandular densities. There are bilateralnormal appearing lymph nodes in the axillary tail regions. There are no suspicious masses, microcalcifications or areas of architecturaldistortion in either breast. ~ IMPRESSION: Negative ([id number]-Vsbobtiz-0) ~ RECOMMENDATION: Routine screening mammogram in 1 year. ~ * The patient with a palpable abnormality, unexplained by breast imaging, should be managed on clinical basis by the attending physician. * Breast imaging has a false negative rate of 15%. * The patient was notified by mail of the results of this examination. *The patient's information was entered into a reminder system with atarget due date for the next mammogram. The mammogram was reviewed by a Radiologist and CAD. Mann Irene MD IM MAMMOGRAPHY ORDERABLES Fin al Result * POCT HEMOCCULT 1-3 CARDS (03/18/2013 3:15 PM EST) Fec Heme neg Pos/Neg SEP OFFICE Lot Number SEP OFFICE Expiration Date SEP OFFICE SeriAl # SEP OFFICE Stool specimen (specimen) 03/18/2013 3:15 PM EST Mann Irene MD POINT OF CARE TEST ORDERABLES Final Result SEP OFFICE * SCANNED PRE/POST PROCEDURES (11/05/2012 9:01 AM EDT) 11/05/2012 9:01 AM EDT Narrative Procedure Note Unknown, Unknown - 11/05/2012 9:01 AM EDT us Unknown Unknown PROCEDURE/MINOR SURGICAL ORDERAB LES Final Result * SCANNED ANESTHESIA FORMS (11/05/2012 9:01 AM EDT) 11/05/2012 9:01 AM EDT Narrative Procedure Note Unknown, Unknown - 11/05/2012 9:01 AM EDT us Unknown Unknown PROCEDURE/MINOR SURGICAL ORDERAB LES Final Result * XR LUMBAR SPINE SINGLE VW (11/03/2012 1:12 PM EDT) Anatomical Region Laterality Modality L-spine Radio Fluoroscop y 11/03/2012 11:3 3 AM EDT Narrative 11/04/2012 8:10 AM EDT INTRAOPERATIVE LOCALIZATION VIEW OF THE LUMBOSACRAL SPINE 1212 HOURS 11/03/2012: HISTORY: ??Spinal surgery. Retraction device and localization devices directed towards the L4-L5 disc. Procedure Note Ashanti Stanley MD - 11/04/2012 INTRAOPERATIVE LOCALIZATION VIEW OF THE LUMBOSACRAL SPINE 1212 HOURS11/03/2012: HISTORY: Spinal surgery. Retraction device and localization devices directed towards the L4-L5disc. us Elza Bautista MD IMG DIAGNOSTIC IMAGING ORDERAB LES Final Result * XR LUMBAR SPINE AP LATERAL AND OBLIQUES (09/13/2012 10:46 AM EDT) Anatomical Region Laterality Modality L-spine Radiographic Demetra ging 09/13/2012 Impressions 09/14/2012 8:26 AM EDT IMPRESSION: Degenerative changes. Narrative 09/14/2012 8:26 AM EDT LUMBAR SPINE INDICATIONS: Pain. HISTORY: Pain. Frontal, lateral, oblique and coned-down views of the lumbosacral spine demonstrate degenerative changes diffusely, most prominent caudally. There is intravertebral disk space narrowing, endplate sclerosis, spondylosis and facet disease. There does not appear to be any yulissa pars defect. Specifically, the oblique views demonstrate the pars intra-articularis to be intact, although stressed at the L5 level. There is degenerative disease about the SI joints. Procedure Note Luis Mcclain MD - 09/14/2012 LUMBAR SPINE INDICATIONS: Pain. HISTORY: Pain. Frontal, lateral, oblique and coned-down views of the lumbosacral spinedemonstrate degenerative changes diffusely, most prominent caudally. There isintravertebral disk space narrowing, endplate sclerosis, spondylosis and facet disease. There doesnot appear to be any yulissa pars defect. Specifically, the oblique views demonstrate the parsintra-articularis to be intact, although stressed at the L5 level. There is degenerative diseaseabout the SI joints. IMPRESSION: Degenerative changes. us Mann Irene MD IMG DIAGNOSTIC IMAGING ORDERAB LES Final Result Visit Diagnoses Diagnosis Start Date Well adult exam Routine general medical examination at a health care facility 09/13/2012 Low back pain Lumbago 09/13/2012 Low back pain Lumbago 09/13/2012 Well adult exam Routine general medical examination at a health care facility 09/13/2012 Low back pain Lumbago 09/21/2012 Need for pneumococcal vaccination Need for prophylactic vaccination against streptococcus pneumoniae (pneumococcus) 10/13/2012 Poison samia Contact dermatitis and other eczema due to plants (except food) 10/13/2012 Weight gain Other symptoms concerning nutrition, metabolism, and development 10/13/2012 Spinal stenosis, lumbar region, without neurogenic claudication 11/03/2012 Malar rash Rash and other nonspecific skin eruption 12/03/2012 Malar rash Rash and other nonspecific skin eruption 12/07/2012 Other screening mammogram 03/18/2013 Osteoarthritis Osteoarthrosis, unspecified whether generalized or localized, unspecified site 03/18/2013 Colon cancer screening Special screening for malignant neoplasms, colon 03/18/2013 Hyperlipidemia Other and unspecified hyperlipidemia 04/06/2013 Hyperlipidemia Other and unspecified hyperlipidemia 04/14/2013 Hypercholesterolemia Pure hypercholesterolemia 09/26/2013 Claudication (HCC) Peripheral vascular disease, unspecified 09/26/2013 Other screening mammogram 09/26/2013 Well adult exam Routine general medical examination at a health care facility 09/26/2013 Heart murmur Undiagnosed cardiac murmurs 09/26/2013 Screen for colon cancer Special screening for malignant neoplasms, colon 09/26/2013 Hypercholesterolemia Pure hypercholesterolemia 09/26/2013 Osteoarthritis Osteoarthrosis, unspecified whether generalized or localized, unspecified site 09/26/2013 Claudication (HCC) Peripheral vascular disease, unspecified 10/07/2013 Other screening mammogram 10/07/2013 Heart murmur Undiagnosed cardiac murmurs 10/07/2013 Special screening for malignant neoplasms, colon 12/12/2013 Thigh pain, right 12/16/2013 Thigh pain, right 12/16/2013 Thigh pain, right 12/16/2013 Dysuria 12/19/2013 Pain Generalized pain 12/19/2013 Difficulty walking Difficulty in walking 12/19/2013 Dysuria 12/19/2013 UTI (lower urinary tract infection) Urinary tract infection, site not specified 12/19/2013 Leg pain, central, right 12/19/2013 Leg pain Pain in limb 12/21/2013 Hip fracture, unspecified laterality, closed, initial encounter ([facility]) 12/22/2013 Dysuria 01/16/2014 Dysuria 01/16/2014 UTI (urinary tract infection) Urinary tract infection, site not specified 01/16/2014 Dysuria 01/19/2014 OA (osteoarthritis) Osteoarthrosis, unspecified whether generalized or localized, unspecified site 02/09/2014 Pre-op testing Preoperative examination, unspecified 02/09/2014 Anticoagulant disorder (HCC) Other and unspecified coagulation defects 02/09/2014 Primary localized osteoarthrosis, pelvic region and thigh, right 02/16/2014 OA (osteoarthritis) Osteoarthrosis, unspecified whether generalized or localized, unspecified site 02/16/2014 Hypercholesterolemia Pure hypercholesterolemia 02/16/2014 Hypernatremia Hyperosmolality and/or hypernatremia 02/16/2014 Screening for tuberculosis Screening examination for pulmonary tuberculosis 02/20/2014 At risk for constipation Other specified conditions influencing health status 02/20/2014 Pain Generalized pain 02/20/2014 High cholesterol Pure hypercholesterolemia 02/20/2014 Prevention of blood clots 02/20/2014 Anemia Anemia, unspecified 02/20/2014 Hypokalemia Hypopotassemia 02/20/2014 OA (osteoarthritis)-s/p RIGHT TOTAL HIP REPLACEMENT 02/16/14. Osteoarthrosis, unspecified whether generalized or localized, unspecified site 03/06/2014 Hand dermatitis Contact dermatitis and other eczema, due to unspecified cause 04/28/2014 Diarrhea 04/28/2014 Viral illness Unspecified viral infection, in conditions classified elsewhere and of unspecified site 05/10/2014 Elevated BP Elevated blood pressure reading without diagnosis of hypertension 05/10/2014 Foot pain, unspecified laterality 05/15/2014 Well adult exam Routine general medical examination at a health care facility 09/01/2014 Well adult exam Routine general medical examination at a health care facility 09/01/2014 Hand dermatitis Contact dermatitis and other eczema, due to unspecified cause 09/01/2014 Hip joint replacement by other means 09/01/2014 Hypercholesterolemia Pure hypercholesterolemia 09/01/2014 Bronchitis Bronchitis, not specified as acute or chronic 10/04/2014 Acute idiopathic gout of right foot 03/02/2015 Menopausal symptoms Symptomatic menopausal or female climacteric states 03/02/2015 Acute idiopathic gout of right foot 03/02/2015 Psoriasis Other psoriasis 03/02/2015 Pain of toe of right foot Pain in limb 03/12/2015 Eye exam, routine 07/27/2015 Fever, unspecified fever cause 07/30/2015 Acute gastroenteritis Other and unspecified noninfectious gastroenteritis and colitis 07/30/2015 Osteoarthritis, unspecified osteoarthritis type, unspecified site 08/29/2015 Acute bacterial sinusitis Acute sinusitis, unspecified 09/04/2015 Acute bronchitis, unspecified organism 09/04/2015 Allergic rhinitis, seasonal Allergic rhinitis, cause unspecified 01/08/2016 Hyperlipidemia Other and unspecified hyperlipidemia 01/08/2016 Osteoarthritis, unspecified osteoarthritis type, unspecified site 01/08/2016 Annual physical exam Routine general medical examination at a health care facility 01/08/2016 Screening for cholesterol level Screening for lipoid disorders 01/08/2016 Screening for thyroid disorder 01/08/2016 Annual physical exam Routine general medical examination at a health care facility 01/23/2016 Screening for cholesterol level Screening for lipoid disorders 01/23/2016 Screening for thyroid disorder 01/23/2016 Hypercholesterolemia Pure hypercholesterolemia 01/23/2016 Pneumonia of right lower lobe due to infectious organism 03/11/2016 Chronic pain of left knee Pain in joint, lower leg 09/30/2016 Sinusitis, unspecified chronicity, unspecified location 10/01/2016 Seasonal allergic rhinitis due to pollen 10/01/2016 Osteoarthritis, unspecified osteoarthritis type, unspecified site 11/23/2016 Osteoarthritis, unspecified osteoarthritis type, unspecified site 11/28/2016 Pure hypercholesterolemia 11/28/2016 Osteoarthritis, unspecified osteoarthritis type, unspecified site 12/01/2016 Pure hypercholesterolemia 12/01/2016 Seasonal allergic rhinitis due to pollen 01/06/2017 Seasonal allergic rhinitis due to pollen 04/25/2017 Pure hypercholesterolemia 07/18/2017 Osteoarthritis, unspecified osteoarthritis type, unspecified site 07/18/2017 Seasonal allergic rhinitis due to pollen 08/31/2017 Well adult exam Routine general medical examination at a health care facility 09/11/2017 Encounter for screening mammogram for breast cancer 09/11/2017 Osteoarthritis, unspecified osteoarthritis type, unspecified site 09/11/2017 UTI (urinary tract infection), uncomplicated Urinary tract infection, site not specified 09/11/2017 Encounter for screening mammogram for breast cancer 09/14/2017 Seasonal allergic rhinitis due to pollen 09/29/2017 Hypercholesterolemia Pure hypercholesterolemia 10/13/2017 Hypernatremia Hyperosmolality and/or hypernatremia 10/13/2017 Need for hepatitis C screening test Special screening examination for other specified viral diseases 10/13/2017 Screening for deficiency anemia Screening for other and unspecified deficiency anemia 10/13/2017 Claudication (HCC) Peripheral vascular disease, unspecified 10/13/2017 Acute bronchitis, unspecified organism 10/13/2017 Seasonal allergic rhinitis due to pollen 11/17/2017 Claudication (HCC) Peripheral vascular disease, unspecified 12/11/2017 Pure hypercholesterolemia 01/23/2018 Seasonal allergic rhinitis due to pollen 03/02/2018 Viral gastroenteritis Intestinal infection due to other organism, not elsewhere classified 03/05/2018 Dizziness Dizziness and giddiness 03/05/2018 Hypernatremia Hyperosmolality and/or hypernatremia 03/05/2018 Pure hypercholesterolemia 07/12/2018 Seasonal allergic rhinitis due to pollen 07/15/2018 Pain in both knees, unspecified chronicity 09/10/2018 Seasonal allergic rhinitis due to pollen 09/14/2018 Encounter for screening for malignant neoplasm of breast 10/15/2018 Seasonal allergic rhinitis due to pollen 10/18/2018 Seasonal allergic rhinitis due to pollen 11/19/2018 Annual physical exam Routine general medical examination at a health care facility 12/06/2018 Claudication (HCC) Peripheral vascular disease, unspecified 12/06/2018 Osteoarthritis, unspecified osteoarthritis type, unspecified site 12/06/2018 Pre-op examination Preoperative examination, unspecified 12/06/2018 Anticoagulation adequate Encounter for long-term (current) use of anticoagulants 12/15/2018 Cataract of left eye, unspecified cataract type 12/16/2018 Cataract (lens) fragments in eye following cataract surgery 12/16/2018 Cataract of right eye, unspecified cataract type 12/16/2018 Seasonal allergic rhinitis due to pollen 12/25/2018 Primary osteoarthritis of left knee Primary localized osteoarthrosis, lower leg 12/28/2018 Encounter for medication review 01/26/2019 Post-menopausal Asymptomatic postmenopausal status (age-related) (natural) 02/09/2019 UTI (urinary tract infection), uncomplicated Urinary tract infection, site not specified 02/10/2019 Dysuria 02/10/2019 Post-menopausal Asymptomatic postmenopausal status (age-related) (natural) 02/10/2019 Pre-op examination Preoperative examination, unspecified 02/21/2019 Age-related cataract of both eyes, unspecified age-related cataract type 02/21/2019 Osteoarthritis, unspecified osteoarthritis type, unspecified site 02/21/2019 Need for influenza vaccination Need for prophylactic vaccination and inoculation against influenza 02/21/2019 UTI (urinary tract infection), uncomplicated Urinary tract infection, site not specified 02/21/2019 Nuclear sclerotic cataract of right eye Senile nuclear sclerosis 02/28/2019 Cortical age-related cataract, right eye 02/28/2019 Nuclear sclerotic cataract of left eye Senile nuclear sclerosis 03/14/2019 Cortical age-related cataract, left eye 03/14/2019 Pure hypercholesterolemia 04/04/2019 Recurrent UTI (urinary tract infection) Urinary tract infection, site not specified 04/15/2019 Dysuria 04/15/2019 UTI (urinary tract infection), uncomplicated Urinary tract infection, site not specified 04/17/2019 Recurrent UTI (urinary tract infection) Urinary tract infection, site not specified 07/04/2019 Recurrent UTI Urinary tract infection, site not specified 07/20/2019 Feeling of incomplete bladder emptying Incomplete bladder emptying 07/20/2019 Recurrent UTI Urinary tract infection, site not specified 07/22/2019 Feeling of incomplete bladder emptying Incomplete bladder emptying 07/22/2019 Urinary tract infection without hematuria, site unspecified 07/25/2019 Seasonal allergic rhinitis due to pollen 08/09/2019 Hematuria, unspecified type 10/10/2019 Hematuria, unspecified type 10/10/2019 Pre-op testing Preoperative examination, unspecified 10/21/2019 Encounter for laboratory testing for COVID-19 virus 10/21/2019 Hematuria, unspecified type 10/26/2019 Hematuria, unspecified type 10/26/2019 Other microscopic hematuria 10/31/2019 Acute cystitis with hematuria Acute cystitis 10/30/2019 Gross hematuria 10/30/2019 Urine culture positive Other nonspecific finding on examination of urine 11/16/2019 Urinary tract infection without hematuria, site unspecified 11/23/2019 Pre-op testing Preoperative examination, unspecified 11/24/2019 Encounter for laboratory testing for COVID-19 virus 11/24/2019 Urine culture positive Other nonspecific finding on examination of urine 11/28/2019 Urine culture positive Other nonspecific finding on examination of urine 11/28/2019 Hypercholesterolemia Pure hypercholesterolemia 11/28/2019 Urine culture positive Other nonspecific finding on examination of urine 12/05/2019 Hypercholesterolemia Pure hypercholesterolemia 12/05/2019 Hypercholesterolemia Pure hypercholesterolemia 12/08/2019 Other microscopic hematuria 12/08/2019 Annual physical exam Routine general medical examination at a health care facility 12/08/2019 Claudication (HCC) Peripheral vascular disease, unspecified 12/08/2019 Pure hypercholesterolemia 12/09/2019 Nephrolithiasis Calculus of kidney 12/14/2019 Pre-op testing Preoperative examination, unspecified 12/29/2019 Encounter for laboratory testing for COVID-19 virus 12/29/2019 Nephrolithiasis Calculus of kidney 01/02/2020 Nephrolithiasis Calculus of kidney 01/02/2020 Hypercholesterolemia Pure hypercholesterolemia 01/12/2020 Asymptomatic microscopic hematuria 01/25/2020 Pure hypercholesterolemia 03/07/2020 Malaise and fatigue Other malaise and fatigue 03/22/2020 Vitamin D deficiency Unspecified vitamin D deficiency 03/22/2020 Recurrent UTI (urinary tract infection) Urinary tract infection, site not specified 03/22/2020 Malaise and fatigue Other malaise and fatigue 03/23/2020 Vitamin D deficiency Unspecified vitamin D deficiency 03/23/2020 Recurrent UTI (urinary tract infection) Urinary tract infection, site not specified 03/23/2020 Pure hypercholesterolemia 05/05/2020 Pure hypercholesterolemia 09/26/2020 Seasonal allergic rhinitis due to pollen 02/05/2021 Needs flu shot Need for prophylactic vaccination and inoculation against influenza 02/05/2021 Hypercholesterolemia Pure hypercholesterolemia 02/05/2021 Osteoarthritis, unspecified osteoarthritis type, unspecified site 02/05/2021 Annual physical exam Routine general medical examination at a health care facility 02/05/2021 Seasonal allergic rhinitis due to pollen 02/08/2021 Hypercholesterolemia Pure hypercholesterolemia 03/18/2021 Encounter for screening mammogram for malignant neoplasm of breast Other screening mammogram 07/16/2021 Hypercholesterolemia Pure hypercholesterolemia 07/22/2021 Seasonal allergic rhinitis due to pollen 09/05/2021 Acute bacterial sinusitis Acute sinusitis, unspecified 09/16/2021 Diarrhea, unspecified type 09/17/2021 Claudication (HCC) Peripheral vascular disease, unspecified 09/24/2021 Hypercholesterolemia Pure hypercholesterolemia 09/24/2021 Osteoarthritis, unspecified osteoarthritis type, unspecified site 09/24/2021 Dysphagia, unspecified type 09/24/2021 PVD (peripheral vascular disease) (HCC) Peripheral vascular disease, unspecified 09/24/2021 Bruit Other symptoms involving cardiovascular system 09/24/2021 Chronic fatigue Other malaise and fatigue 09/24/2021 Vitamin D deficiency Unspecified vitamin D deficiency 09/24/2021 Acute bacterial sinusitis Acute sinusitis, unspecified 09/24/2021 Hypercholesterolemia Pure hypercholesterolemia 10/20/2021 PVD (peripheral vascular disease) (HCC) Peripheral vascular disease, unspecified 10/31/2021 Bruit Other symptoms involving cardiovascular system 10/31/2021 Claudication (HCC) Peripheral vascular disease, unspecified 10/31/2021 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 01/27/2022 Syncope, cardiogenic Syncope and collapse 01/27/2022 Chronic fatigue Other malaise and fatigue 01/27/2022 Syncope due to orthostatic hypotension Syncope and collapse 01/28/2022 Syncope due to orthostatic hypotension Syncope and collapse 02/17/2022 Syncope, unspecified syncope type 04/01/2022 Syncope, unspecified syncope type 03/28/2022 Syncope, unspecified syncope type 04/04/2022 Hospital discharge follow-up Other follow-up examination 04/17/2022 Exudative age-related macular degeneration of left eye, unspecified stage (HCC) 04/17/2022 Syncope, unspecified syncope type 04/17/2022 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 04/17/2022 Seasonal allergic rhinitis due to pollen 04/22/2022 Hypertensive urgency Unspecified essential hypertension 07/09/2022 Essential hypertension Unspecified essential hypertension 07/10/2022 Essential hypertension Unspecified essential hypertension 07/14/2022 Exudative age-related macular degeneration of left eye, unspecified stage (HCC) 07/14/2022 Thyroid cyst Cyst of thyroid 07/14/2022 Hypercholesterolemia Pure hypercholesterolemia 07/18/2022 Encounter for screening mammogram for malignant neoplasm of breast Other screening mammogram 07/28/2022 Essential hypertension Unspecified essential hypertension 07/28/2022 Dysuria 07/28/2022 Acute cystitis without hematuria Acute cystitis 07/30/2022 Essential hypertension Unspecified essential hypertension 10/04/2022 Right knee pain, unspecified chronicity 10/22/2022 History of right hip replacement 10/22/2022 History of right hip replacement 10/22/2022 History of right hip replacement 10/22/2022 Right knee pain, unspecified chronicity 10/22/2022 Hypercholesterolemia Pure hypercholesterolemia 10/28/2022 History of right hip replacement 11/03/2022 Right knee pain, unspecified chronicity 11/03/2022 Encounter for support and coordination of transition of care 11/07/2022 Medicare annual wellness visit, subsequent Routine general medical examination at a health care facility 11/07/2022 Screening for osteoporosis Special screening for osteoporosis 11/07/2022 Postmenopausal Asymptomatic postmenopausal status (age-related) (natural) 11/07/2022 Burning with urination Dysuria 11/07/2022 Advanced care planning/counseling discussion Other specified counseling 11/07/2022 PVD (peripheral vascular disease) (HCC) Peripheral vascular disease, unspecified 11/07/2022 Essential hypertension Unspecified essential hypertension 11/07/2022 Bilateral carotid artery stenosis Occlusion and stenosis of multiple and bilateral precerebral arteries without mention of cerebral infarction 11/07/2022 Thyroid cyst Cyst of thyroid 11/07/2022 History of right hip replacement 12/03/2022 Right knee pain, unspecified chronicity 12/03/2022 Primary osteoarthritis of right knee Primary localized osteoarthrosis, lower leg 12/03/2022 Poison sumac Contact dermatitis and other eczema due to plants (except food) 12/11/2022 Age-related osteoporosis without current pathological fracture Senile osteoporosis 12/19/2022 Screening for osteoporosis Special screening for osteoporosis 12/19/2022 Postmenopausal Asymptomatic postmenopausal status (age-related) (natural) 12/19/2022 Seasonal allergic rhinitis due to pollen 12/22/2022 Hypercholesterolemia Pure hypercholesterolemia 12/22/2022 Essential hypertension Unspecified essential hypertension 12/22/2022 Encounter for support and coordination of transition of care 01/07/2023 Enrolled in chronic care management 01/09/2023 GERD without esophagitis Esophageal reflux 01/16/2023 Encounter for support and coordination of transition of care 01/16/2023 Thoracic spine pain Pain in thoracic spine 01/23/2023 Thoracic spine pain Pain in thoracic spine 01/23/2023 Age related osteoporosis, unspecified pathological fracture presence 01/23/2023 Vitamin D deficiency Unspecified vitamin D deficiency 01/23/2023 Acute low back pain, unspecified back pain laterality, unspecified whether sciatica present 01/23/2023 L5 S1 Protrusion of intervertebral disc of lumbosacral region 01/23/2023 Encounter for support and coordination of transition of care 01/26/2023 Age-related osteoporosis without current pathological fracture Senile osteoporosis 01/27/2023 Encounter for support and coordination of transition of care 01/28/2023 GERD without esophagitis Esophageal reflux 01/28/2023 Thoracic spine pain Pain in thoracic spine 01/28/2023 Vitamin D deficiency Unspecified vitamin D deficiency 01/28/2023 L5 S1 Protrusion of intervertebral disc of lumbosacral region 01/28/2023 Age related osteoporosis, unspecified pathological fracture presence 01/28/2023 Acute low back pain, unspecified back pain laterality, unspecified whether sciatica present 01/28/2023 Seasonal allergic rhinitis due to pollen 01/28/2023 Spinal stenosis of lumbar region, unspecified whether neurogenic claudication present 02/13/2023 Neuroforaminal stenosis of lumbar spine 02/13/2023 Lumbar pain Lumbago 02/13/2023 Encounter for hearing examination, unspecified whether abnormal findings 02/16/2023 Spinal stenosis of lumbar region, unspecified whether neurogenic claudication present 02/23/2023 Neuroforaminal stenosis of lumbar spine 02/23/2023 Lumbar radiculopathy Thoracic or lumbosacral neuritis or radiculitis, unspecified 02/23/2023 Abnormal auditory perception, bilateral 02/25/2023 Tinnitus of both ears Unspecified tinnitus 02/25/2023 Mixed conductive and sensorineural hearing loss, unilateral, 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 02/25/2023 Sensorineural hearing loss, unilateral, right ear, with restricted hearing on the contralateral side 02/25/2023 Ear fullness, bilateral 02/25/2023 Encounter for support and coordination of transition of care 02/27/2023 OA (osteoarthritis)-s/p RIGHT TOTAL HIP REPLACEMENT 02/16/14. 02/27/2023 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 02/27/2023 Exudative age-related macular degeneration of left eye, unspecified stage (HCC) 02/27/2023 Age-related osteoporosis without current pathological fracture Senile osteoporosis 02/27/2023 Sensorineural hearing loss (SNHL) of left ear with restricted hearing of right ear 02/27/2023 Encounter for support and coordination of transition of care 03/06/2023 URI, acute Acute upper respiratory infections of unspecified site 03/17/2023 Spinal stenosis of lumbar region, unspecified whether neurogenic claudication present 03/20/2023 DDD (degenerative disc disease), lumbar Degeneration of lumbar or lumbosacral intervertebral disc 03/20/2023 Neuroforaminal stenosis of lumbar spine 03/20/2023 Osteoporosis, unspecified osteoporosis type, unspecified pathological fracture presence 03/20/2023 Spinal stenosis of lumbar region without neurogenic claudication Spinal stenosis, lumbar region, without neurogenic claudication 03/26/2023 Recurrent syncope 04/06/2023 Essential hypertension Unspecified essential hypertension 04/06/2023 Age-related osteoporosis without current pathological fracture Senile osteoporosis 04/10/2023 Recurrent syncope 04/15/2023 GERD without esophagitis Esophageal reflux 04/16/2023 Hypercholesterolemia Pure hypercholesterolemia 04/16/2023 Spinal stenosis of lumbar region, unspecified whether neurogenic claudication present 05/01/2023 DDD (degenerative disc disease), lumbar Degeneration of lumbar or lumbosacral intervertebral disc 05/01/2023 Osteoporosis, unspecified osteoporosis type, unspecified pathological fracture presence 05/01/2023 Neuroforaminal stenosis of lumbar spine 05/01/2023 Lumbar radiculopathy Thoracic or lumbosacral neuritis or radiculitis, unspecified 05/01/2023 Spinal stenosis of lumbar region, unspecified whether neurogenic claudication present 05/01/2023 DDD (degenerative disc disease), lumbar Degeneration of lumbar or lumbosacral intervertebral disc 05/01/2023 Osteoporosis, unspecified osteoporosis type, unspecified pathological fracture presence 05/01/2023 Neuroforaminal stenosis of lumbar spine 05/01/2023 Lumbar pain Lumbago 05/01/2023 Right sided sciatica Sciatica 05/01/2023 L5 S1 Protrusion of intervertebral disc of lumbosacral region 05/01/2023 Vitamin D deficiency Unspecified vitamin D deficiency 05/01/2023 Sciatica of right side Sciatica 05/01/2023 Spinal stenosis of lumbar region, unspecified whether neurogenic claudication present 05/25/2023 DDD (degenerative disc disease), lumbar Degeneration of lumbar or lumbosacral intervertebral disc 05/25/2023 Osteoporosis, unspecified osteoporosis type, unspecified pathological fracture presence 05/25/2023 Neuroforaminal stenosis of lumbar spine 05/25/2023 Lumbar radiculopathy Thoracic or lumbosacral neuritis or radiculitis, unspecified 05/25/2023 Lumbar pain Lumbago 05/25/2023 Right sided sciatica Sciatica 05/25/2023 Spinal stenosis of lumbar region, unspecified whether neurogenic claudication present 05/25/2023 DDD (degenerative disc disease), lumbar Degeneration of lumbar or lumbosacral intervertebral disc 05/25/2023 Osteoporosis, unspecified osteoporosis type, unspecified pathological fracture presence 05/25/2023 Neuroforaminal stenosis of lumbar spine 05/25/2023 Lumbar pain Lumbago 05/25/2023 Right sided sciatica Sciatica 05/25/2023 Lumbar radiculopathy Thoracic or lumbosacral neuritis or radiculitis, unspecified 05/25/2023 Hypercholesterolemia Pure hypercholesterolemia 05/25/2023 Vitamin D deficiency Unspecified vitamin D deficiency 05/25/2023 Age related osteoporosis, unspecified pathological fracture presence 05/25/2023 GERD without esophagitis Esophageal reflux 05/25/2023 Spinal stenosis of lumbar region, unspecified whether neurogenic claudication present 05/28/2023 DDD (degenerative disc disease), lumbar Degeneration of lumbar or lumbosacral intervertebral disc 05/28/2023 Osteoporosis, unspecified osteoporosis type, unspecified pathological fracture presence 05/28/2023 Neuroforaminal stenosis of lumbar spine 05/28/2023 Lumbar pain Lumbago 05/28/2023 Right sided sciatica Sciatica 05/28/2023 Failed back syndrome of lumbar spine Postlaminectomy syndrome, lumbar region 06/01/2023 Intervertebral disc disorder with radiculopathy of lumbosacral region Thoracic or lumbosacral neuritis or radiculitis, unspecified 06/01/2023 Cervicalgia 06/01/2023 Chronic pain syndrome 06/01/2023 Spondylosis of lumbosacral region without myelopathy or radiculopathy Lumbosacral spondylosis without myelopathy 06/01/2023 Spinal stenosis of lumbar region, unspecified whether neurogenic claudication present 06/30/2023 DDD (degenerative disc disease), lumbar Degeneration of lumbar or lumbosacral intervertebral disc 06/30/2023 Osteoporosis, unspecified osteoporosis type, unspecified pathological fracture presence 06/30/2023 Neuroforaminal stenosis of lumbar spine 06/30/2023 Lumbar pain Lumbago 06/30/2023 Right sided sciatica Sciatica 06/30/2023 Essential hypertension Unspecified essential hypertension 06/30/2023 Acute foot pain, right 07/06/2023 Acute foot pain, right 07/06/2023 Age related osteoporosis, unspecified pathological fracture presence 07/06/2023 Essential hypertension Unspecified essential hypertension 07/06/2023 Spinal stenosis of lumbar region, unspecified whether neurogenic claudication present 07/06/2023 DDD (degenerative disc disease), lumbar Degeneration of lumbar or lumbosacral intervertebral disc 07/06/2023 Osteoporosis, unspecified osteoporosis type, unspecified pathological fracture presence 07/06/2023 Neuroforaminal stenosis of lumbar spine 07/06/2023 Lumbar pain Lumbago 07/06/2023 Right sided sciatica Sciatica 07/06/2023 Hypercholesterolemia Pure hypercholesterolemia 07/06/2023 Vitamin D deficiency Unspecified vitamin D deficiency 07/06/2023 GERD without esophagitis Esophageal reflux 07/06/2023 Cellulitis of right foot Cellulitis and abscess of foot, except toes 07/15/2023 Exudative age-related macular degeneration of left eye, unspecified stage ([facility]) 07/15/2023 Chronic diastolic (congestive) heart failure ([facility]) 07/15/2023 PVD (peripheral vascular disease) ([facility]) Peripheral vascular disease, unspecified 07/15/2023 Bilateral carotid artery stenosis Occlusion and stenosis of multiple and bilateral precerebral arteries without mention of cerebral infarction 07/15/2023 PVD (peripheral vascular disease) ([facility]) Peripheral vascular disease, unspecified 07/23/2023 Bilateral carotid artery stenosis Occlusion and stenosis of multiple and bilateral precerebral arteries without mention of cerebral infarction 07/23/2023 Failed back syndrome of lumbar spine Postlaminectomy syndrome, lumbar region 07/28/2023 Intervertebral disc disorder with radiculopathy of lumbosacral region Thoracic or lumbosacral neuritis or radiculitis, unspecified 07/28/2023 Cervicalgia 07/28/2023 Chronic pain syndrome 07/28/2023 Spondylosis of lumbosacral region without myelopathy or radiculopathy Lumbosacral spondylosis without myelopathy 07/28/2023 Primary osteoarthritis of right foot 08/06/2023 Chronic foot pain, right 08/06/2023 COVID-19 vaccine administered 08/06/2023 Bilateral carotid artery stenosis Occlusion and stenosis of multiple and bilateral precerebral arteries without mention of cerebral infarction 08/06/2023 Cervicalgia 08/12/2023 Essential hypertension Unspecified essential hypertension 08/28/2023 Acquired clubfoot, right foot 09/14/2023 Right foot pain Pain in limb 09/14/2023 Corns and callosities 09/14/2023 Punctate porokeratosis 09/14/2023 Left foot pain Pain in limb 09/14/2023 Spinal stenosis of lumbar region, unspecified whether neurogenic claudication present 09/24/2023 DDD (degenerative disc disease), lumbar Degeneration of lumbar or lumbosacral intervertebral disc 09/24/2023 Osteoporosis, unspecified osteoporosis type, unspecified pathological fracture presence 09/24/2023 Neuroforaminal stenosis of lumbar spine 09/24/2023 Lumbar pain Lumbago 09/24/2023 Right sided sciatica Sciatica 09/24/2023 Chronic foot pain, right 11/03/2023 GERD without esophagitis Esophageal reflux 11/07/2023 Medicare annual wellness visit, subsequent Routine general medical examination at a health care facility 11/09/2023 Screening for diabetes mellitus 11/09/2023 Screening for hyperlipidemia Screening for lipoid disorders 11/09/2023 Screening for osteoporosis Special screening for osteoporosis 11/09/2023 Postmenopausal Asymptomatic postmenopausal status (age-related) (natural) 11/09/2023 Thyroid cyst Cyst of thyroid 11/09/2023 Vitamin D deficiency Unspecified vitamin D deficiency 11/09/2023 Bilateral carotid artery stenosis Occlusion and stenosis of multiple and bilateral precerebral arteries without mention of cerebral infarction 11/09/2023 Chronic diastolic (congestive) heart failure (HCC) 11/09/2023 Essential hypertension Unspecified essential hypertension 11/09/2023 Chronic diastolic (congestive) heart failure (HCC) 11/09/2023 Hypercholesterolemia Pure hypercholesterolemia 11/11/2023 Cervicalgia 11/11/2023 Intervertebral disc disorder with radiculopathy of lumbosacral region Thoracic or lumbosacral neuritis or radiculitis, unspecified 11/11/2023 Failed back syndrome of lumbar spine Postlaminectomy syndrome, lumbar region 11/11/2023 Chronic pain syndrome 11/11/2023 Spondylosis of lumbosacral region without myelopathy or radiculopathy Lumbosacral spondylosis without myelopathy 11/11/2023 Cervical spondylosis Cervical spondylosis without myelopathy 11/11/2023 Spinal stenosis of lumbar region, unspecified whether neurogenic claudication present 11/11/2023 DDD (degenerative disc disease), lumbar Degeneration of lumbar or lumbosacral intervertebral disc 11/11/2023 Osteoporosis, unspecified osteoporosis type, unspecified pathological fracture presence 11/11/2023 Neuroforaminal stenosis of lumbar spine 11/11/2023 Lumbar radiculopathy Thoracic or lumbosacral neuritis or radiculitis, unspecified 11/11/2023 Myofascial pain Mylagia and myositis, unspecified 11/11/2023 Spinal stenosis of lumbar region, unspecified whether neurogenic claudication present 12/10/2023 DDD (degenerative disc disease), lumbar Degeneration of lumbar or lumbosacral intervertebral disc 12/10/2023 Osteoporosis, unspecified osteoporosis type, unspecified pathological fracture presence 12/10/2023 Neuroforaminal stenosis of lumbar spine 12/10/2023 Lumbar pain Lumbago 12/10/2023 Right sided sciatica Sciatica 12/10/2023 Age-related osteoporosis without current pathological fracture Senile osteoporosis 01/14/2024 Cervicalgia 02/15/2024 Intervertebral disc disorder with radiculopathy of lumbosacral region Thoracic or lumbosacral neuritis or radiculitis, unspecified 02/15/2024 Failed back syndrome of lumbar spine Postlaminectomy syndrome, lumbar region 02/15/2024 Chronic pain syndrome 02/15/2024 Spondylosis of lumbosacral region without myelopathy or radiculopathy Lumbosacral spondylosis without myelopathy 02/15/2024 Cervical spondylosis Cervical spondylosis without myelopathy 02/15/2024 Osteoporosis, unspecified osteoporosis type, unspecified pathological fracture presence 02/15/2024 Myofascial pain Mylagia and myositis, unspecified 02/15/2024 Spinal stenosis of lumbar region, unspecified whether neurogenic claudication present 02/15/2024 Neuroforaminal stenosis of lumbar spine 02/15/2024 Lumbar radiculopathy Thoracic or lumbosacral neuritis or radiculitis, unspecified 02/15/2024 Chronic pain of right knee 02/15/2024 Hypercholesterolemia Pure hypercholesterolemia 02/16/2014 OA (osteoarthritis)-s/p RIGHT TOTAL HIP REPLACEMENT 02/16/14. Osteoarthrosis, unspecified whether generalized or localized, unspecified site 02/16/2014 Hypernatremia Hyperosmolality and/or hypernatremia 02/16/2014 OA (osteoarthritis)-s/p RIGHT TOTAL HIP REPLACEMENT 02/16/14. Osteoarthrosis, unspecified whether generalized or localized, unspecified site 02/20/2014 Hip joint replacement by other means 02/20/2014 Other physical therapy 02/20/2014 Urine culture positive Other nonspecific finding on examination of urine 11/28/2019 Syncope, unspecified syncope type 03/28/2022 Hypercholesterolemia Pure hypercholesterolemia 03/28/2022 UTI (urinary tract infection) Urinary tract infection, site not specified 03/28/2022 Bilateral carotid artery stenosis Occlusion and stenosis of multiple and bilateral precerebral arteries without mention of cerebral infarction 03/28/2022 Thyroid cyst Cyst of thyroid 03/28/2022 Diastolic dysfunction Heart disease, unspecified 03/28/2022 Goals Goal Patient Goal Type Associated Problems Recent Progress Patient-Stated? Author Blood Pressure < 140/90 Blood Pressure 130/90(11/08 10:29 AM EDT) No Palma Jj DO Patient will take her blood sugar once a day for a week in the morning, and report the sugars back to provider General On track(2022 10:50 AM EDT) Yes Geraldine Whiteside, RN Pay off [facility] by Spring 2023 General On track(2022 8:25 AM EDT) Yes Geraldine Whiteside RN Note: -01/28/23 [facility] bill is 120 dollars. Called, no payment assistance available. Continue to pay on it 20 dollars monthly to pay off by Spring 2023 Maintain a healthy diet, exercise regularly and maintain an ideal body weight General No Oralia Merida CCMA Will meet with [facility] to have help getting new [place] plan by end of February 2023 General Yes Geraldine Whiteside RN Stay Tobacco Free Lifestyle No Oralia Merida CCMA Care Teams [employer] Software Tester Relationship Specialty Start Date End Date Palma Jj DO [email or web address] [place] [id number] PCP - General Family Medicine 07/14/22
--- OUTSIDE RECORDS SUMMARY | 2024-03-27 14:56 | XMS_ITS | Encounter Summary ---
Author Organization [place] [address] Care Team Providers Care Associate Director Data & Analytics Name Role Phone Palma Jj DO Primary Care Provider + [phone] Encounter Details Date Type Department Care Team (Late st Contact Info) Description 09/24/2023 Orders Only [facility] [address] [place] [address] Julianna Lea MA Spinal stenosis of lumbar region, unspecified whether neurogenic claudication present; DDD (degenerative disc disease), lumbar; Osteoporosis, unspecified osteoporosis type, unspecified pathological fracture presence; Neuroforaminal stenosis of lumbar spine; Lumbar pain; Right sided sciatica Social History Tobacco Use Types Packs/Day Years Used Date Smoking Tobacco: Former Cigarettes 0.5 5 1 990 - 1994 Passive Smoke Exposure: Never Smokeless Tobacco: Never Comments:quit in 1998 Alcohol Use Standard Drinks/Week Comments No 0 (1 standard drink = 0.6 oz pur e alcohol) Overall Financial Resource Strain (CARDIA) Answe r Date Recorded How hard is it for you to pa y for the very basics like food, housing, medical care, and heating? Somewhat hard 02/27/2023 PHQ-2 Answer Date Recorded PHQ-2 Total Score 0 11/07/2022 [facility] [place] [facility] - Occupational Stress [...] place to sleep or slept in a penitentiary (including now)? No 11/12/2022 Comments No Sex and Gender Information Value Date Recorded Sex Assigned at Not on file Legal Sex Female 5:30 PM EDT Gender Identity Not on file Sexual Orientation Not on file documented as of this encounter Functional Status * Is the person deaf or does he/she have serious difficulty hearing? Answer Date of Assessment Author No 11/07/2022 8:01 AM Tomi Huggins CCMA * Is the person blind or does he/she have serious difficulty seeing even when wearing glasses? Answer Date of Assessment Author No 11/07/2022 8:01 AM Tomi Huggins CCMA * Does this person have serious difficulty walking or climbing stairs? Answer Date of Assessment Author No 11/07/2022 8:01 AM Tomi Huggins CCMA * Does this person have difficulty dressing or bathing? Answer Date of Assessment Author No 11/07/2022 8:01 AM Tomi Huggins CCMA * Because of a physical, mental or emotional condition, does this person have difficulty doing errands alone such as visiting a doctor's office or shopping? Answer Date of Assessment Author No 11/07/2022 8:01 AM EDT Tomi Slaughter CCMA documented as of this encounter Mental Status * Because of a physical, mental or emotional condition, does this person have serious difficulty concentrating, remembering or making decisions? Answer Entry Date Author No 11/07/2022 8:01 AM EDT Tomi Slaughter CCMA documented in this encounter Ordered Prescriptions Prescription Sig Dispense Quantity Refills Last Filled Start Date End Date nortriptyline (PAMELOR) 25 mg Oral CapsuleIndications :Spinal stenosis of lumbar region, unspecified whether neurogenic claudication present,DDD (degenerative disc disease), lumbar,Osteoporosi s, unspecified osteoporosis type, unspecified pathological fracture presence,Neurofora jayy stenosis of lumbar spine,Lumbar pain,Right sided sciatica Take 1 capsule in the morning and 1 capsule at dinner 90 Capsule 2 09/24/2023 documented in this encounter Plan of Treatment Upcoming Encounters Date Type Department Care Team (Late st Contact Info) Description 05/16/2024 9:30 AM EST Office Visit [facility] [address] [place] [address] Gilda Francis PA [address] [place] [address] documented as of this encounter Goals Goal Patient Goal Type Associated Problems Recent Progress Patient-Stated? Author Blood Pressure < 140/90 Blood Pressure 130/90(11/08 10:29 AM EDT) No Palma Jj, DO Patient will take her blood sugar once a day for a week in the morning, and report the sugars back to provider General On track(2022 10:50 AM EDT) Yes Geraldine Whiteside, RN Pay off [facility] by Spring 2023 General On track(2022 8:25 AM EDT) Yes Geraldine Whiteside, RN Note: -01/28/23 [facility] bill is 120 dollars. Called, no payment assistance available. Continue to pay on it 20 dollars monthly to pay off by Spring 2023 Maintain a healthy diet, exercise regularly and maintain an ideal body weight General No Oralia Merida CCMA Will meet with [facility] to have help getting new [place] plan by end of February 2023 General Yes Geraldine Whiteside RN Stay Tobacco Free Lifestyle No Oralia Merida CCMA documented as of this encounter Visit Diagnoses Diagnosis Spinal stenosis of lumbar region, unspecified whether neurogenic claudication present DDD (degenerative disc disease), lumbar Degeneration of lumbar or lumbosacral intervertebral disc Osteoporosis, unspecified osteoporosis type, unspecified pathological fracture presence Neuroforaminal stenosis of lumbar spine Lumbar pain Lumbago Right sided sciatica Sciatica documented in this encounter Discontinued Medications Medication Sig Discontinue Reason Start Date End Da te nortriptyline (PAMELOR) 25 mg Oral CapsuleIndications:Spinal stenosis of lumbar region, unspecified whether neurogenic claudication present,DDD (degenerative disc disease), lumbar,Osteoporosis, unspecified osteoporosis type, unspecified pathological fracture presence,Neuroforaminal stenosis of lumbar spine,Lumbar pain,Right sided sciatica Take 1 capsule in the morning and 1 capsule at dinner Reorder 07/06/2023 09/24/2023 documented as of this encounter Additional Health Concerns Assessment Noted Time A fall risk assessment has been complete d for the patient 08/06/2023 8:22 AM EDT documented as of this encounter Care Teams Associate Director Data & Analytics Relationship Specialty Start Date End Date [place] [address] PCP - General Family Medicine 07/14/22 documented as of this encounter
--- OUTSIDE RECORDS SUMMARY | 2024-03-27 14:56 | XMS_ITS | Encounter Summary ---
[place] [address] Care Team Providers Care Snuff Drier Name Role Phone Palma Jj DO Primary Care Provider [phone] Reason for Referral * Ultrasound (Routine) - Pending Review Specialty Diagnoses / Procedures Referred By Contac t Referred To Contact Radiology Diagnoses Thyroid cyst Procedures US THYROID Palma Jj DO [address] [place] [address] Phone: tel: fax: Referral ID Status Reason Start Date Expiration Date V isits Requested Visits Authorized [id number] Pending Review 11/09/2023 11/08/2024 1 1 * DEXA (Routine) - Pending Review Specialty Diagnoses / Procedures Referred By Ramona t Referred To Contact Radiology Diagnoses Screening for osteoporosis Postmenopausal Procedures DX BONE DENSITY AXIAL INCLUDING VERTEBRAL FRACTURE ASSESSMENT Palma Jj DO [address] [place] [address] Phone: tel: fax: Referral ID Status Reason Start Date Expiration Date V isits Requested Visits Authorized [id number] Pending Review 11/09/2023 11/08/2024 1 1 Reason for Visit * Reason Comments Annual Exam Encounter Details Date Type Department Care Team (Late st Contact Info) Description 11/09/2023 10:40 AM EDT Office Visit [facility] [address] [place], [place] [address] Pamla Jj, DO [address] [place] [id number] Medicare annual wellness visit, subsequent (Primary Dx); Screening for diabetes mellitus; Screening for hyperlipidemia; Screening for osteoporosis; Postmenopausal; Thyroid cyst; Vitamin D deficiency; Bilateral carotid artery stenosis; Chronic diastolic (congestive) heart failure (HCC); Essential hypertension; Chronic diastolic (congestive) heart failure (HCC) Social History Tobacco Use Types Packs/Day Years Used Date Smoking Tobacco: Former Cigarettes 0.5 5 1 - 1994 Passive Smoke Exposure: Never Smokeless [...] Date Recorded PHQ-2 Total Score 0 11/09/2023 [facility] [place] [facility] [employer] - Occupational Stress [...] place to sleep or slept in a fci (including now)? No 11/12/2022 Comments No Sex and Gender Information Value Date Recorded Sex Assigned at Not on file Legal Sex Female 5:30 PM EDT Gender Identity Not on file Sexual Orientation Not on file documented as of this encounter Last Filed Vital Signs Vital Sign Reading Time Taken Comments Blood Pressure 130/90 11/09/2023 10:29 AM EDT Pulse 78 11/09/2023 10:29 AM EDT Temperature 36.8 ??C (98.2 ??F) 11/09/2023 10:29 AM E DT Respiratory Rate 18 11/09/2023 10:29 AM EDT Oxygen Saturation 99% 11/09/2023 10:29 AM EDT Inhaled Oxygen Concentration - - Weight 70 kg (154 lb 6.4 oz) 11/09/2023 10:29 AM EDT Height - - Body Mass Index 30.15 07/28/2023 9:18 AM EDT documented in this encounter Functional Status * Is the person deaf or does he/she have serious difficulty hearing? Answer Date of Assessment Author No 11/07/2022 8:01 AM EDT Tomi Slaughter CCMA * Is the person blind or does he/she have serious difficulty seeing even when wearing glasses? Answer Date of Assessment Author No 11/07/2022 8:01 AM EDT Tomi Slaughter CCMA * Does this person have serious difficulty walking or climbing stairs? Answer Date of Assessment Author No 11/07/2022 8:01 AM CAITT Tomi Slaughter CCMA * Does this person have difficulty dressing or bathing? Answer Date of Assessment Author No 11/07/2022 8:01 AM EDT Tomi Slaughter CCMA * Because of a physical, mental or emotional condition, does this person have difficulty doing errands alone such as visiting a doctor's office or shopping? Answer Date of Assessment Author No 11/07/2022 8:01 AM EDTomi José CCMA documented as of this encounter Mental Status * Because of a physical, mental or emotional condition, does this person have serious difficulty concentrating, remembering or making decisions? Answer Entry Date Author No 11/07/2022 8:01 AM Tomi Huggins CCMA documented in this encounter Progress Notes * Palma Jj DO - 11/09/2023 11:16 AM EDTAssociated Problem(s): Essential hypertension Goal BP: <140/90 in office and <135/85 at home - at goal Medication Management: - a reassessment of the patients current diagnoses, medications, labs, potential SE, appropriate dose and risks assessed and discussed today Continue lisinopril * Palma Jj DO - 11/09/2023 11:16 AM EDTAssociated Problem(s): Chronic diastolic (congestive) heart failure (HCC) Will evaluate further with BNP If elevated BNP >300 and symptomatic, consider addition of SGLT-2 and spironolactone * Palma Jj DO - 11/09/2023 11:15 AM EDTAssociated Problem(s): Bilateral carotid artery stenosis stable * Palma Jj DO - 11/09/2023 10:40 AM EDT Assessment Diagnoses and all orders for this visit: Medicare annual wellness visit, subsequent - CBC WITH DIFF; Future Screening for diabetes mellitus - BASIC METABOLIC PANEL; Future Screening for hyperlipidemia - LIPID SCREEN; Future Screening for osteoporosis - DX BONE DENSITY AXIAL INCLUDING VERTEBRAL FRACTURE ASSESSMENT; Future Postmenopausal - DX BONE DENSITY AXIAL INCLUDING VERTEBRAL FRACTURE ASSESSMENT; Future Thyroid cyst Overview: 03/30/22 Thyroid US: Nodule #1: Location: Posterior [...] category 1. No FNA or follow-up suggested. Nodule #3: Location: LEFT lateral Size: 0.7 x 0.4 x 0.4 cm Prior measurement None. Composition: Spongiform. 0 points. Echogenicity: N/A Shape: N/A Margin: N/A Echogenic foci: N/A Total points: 0 Points. TI-RADS category 1. No FNA or follow-up suggested. Nodule #4: Location: LEFT lateral Size: 1.1 [...] IMPRESSION: Multiple small and benign-appearing thyroid nodules. Orders: - US THYROID; Future Vitamin D deficiency - VITAMIN D 25 HYDROXY; Future Bilateral carotid artery stenosis Overview: 2021: * The right internal carotid artery [...] in the bilateral vertebral artery. Assessment & Plan: stable Chronic diastolic (congestive) heart failure (HCC) (Chronic) Overview: Echo 2021: Result Text IMPRESSION Conclusions * [...] systolic pressure is 31 mmHg Assessment & Plan: Will evaluate further with BNP If elevated BNP >300 and symptomatic, consider addition of SGLT-2 and spironolactone Essential hypertension Assessment & Plan: Goal BP: <140/90 in office and <135/85 at home - at goal Medication Management: - a reassessment of the patients current diagnoses, medications, labs, potential SE, appropriate dose and risks assessed and discussed today Continue lisinopril Palma Jj DO Family Medicine 11/09/2023 Vitals: 11/09/23 1029 BP: 130/90 Pulse: 78 Resp: 18 Temp: 98.2 ??F (36.8 ??C) TempSrc: Temporal SpO2: 99% Weight: 154 lb 6.4 oz (70 kg) SUBJECTIVE: Chief Complaint Patient presents with Annual Exam Ms. Tavarez is a 78 y.o. female here for an Subsequent Annual Medicare Wellness Assessment. Below are the results from wellness category assessments administered throughout the year compiled for review as part of today's assessment. Fall Risk Assessment Has the patient had any fall with injury in the past year?: No Has the patient had 2 or more falls in the past year?: No Is the patient able to sit without assistance?: Yes Is the patient able to get up without assistance?: Yes Does the patient have a difficult time ambulating when first getting up?: No Does the patient have rugs or runners in the home?: No Does the patient have grab bars in the bathroom?: Yes Does the patient have handrails for all inside or outside stairs?: Yes Does the patient have stairs inside or outside of the home?: (!) Yes (In Office Assessment Only): Is the patient able to ambulate without assistance/device and with a gait steady?: Yes Functional Status Assessment Functional Level: self care Functional Mobility Assessment: independent w/o assist device Assessment of transportation needs: still drives most of the time Functional Activities of Daily Living Limitations: No issues Activities of Daily Living Assistive Device Assessment Osteoporosis Screening Assessment Has the patient had a DEXA (Bone Density) scan in the past 2 years?: (!) No Results for orders placed during the hospital encounter of 02/10/19 DX BONE DENSITY AXIAL SKELETON Narrative Indication: The patient is a female age 65 or older who requires a bone density assessment. Study was performed on [employer] [place] [employer]. Bone Density: Region BMD T-score Z-score Femoral Neck (Left) 0.645 -1.8 0.0 Total Hip (Left) 0.705 -1.9 -0.4 1/3 Radius (Right) 0.522 -2.9 -0.7 World Health Organization criteria for BMD interpretation [...] 50. 10-year Fracture Risk(1): Major Osteoporotic Fracture 11% Hip Fracture 2.0% Reported Risk Factors: US (), Neck [...] included in the body of this report. The spine portion of the study is omitted due to hypertrophic change. The right hip portion of the study is omitted due to surgical hardware within the region of interest. Reported by: Chula Smith PA-C, CCD on 02/10/2019 12:48:00 PM. Abnormal Pains Assessment Excluding what you would consider normal aches and pains for your age and medical condition, do youhave any unusual or worrisome pains?: No PHQ Depression Screening Results Little interest or pleasure in doing things: 0 Feeling down, depressed, or hopeless: 0 PHQ-2 Total Score: 0 PHQ-9 Total Score: 0 Advanced Directive Evaluation Does the patient have an Advance Directive?: (!) No Advance Care Planning Guide Given?: (!) No (For Dementia Screening below can use either AD-8 or Mini Cog. Doesn't require both.) AD-8 Dementia Screening tool results Problems with judgement: 0 Less interest in hobbies/activities: 0 Repeats the same things over and over: 0 Trouble learning how to use a tool, appliance or gadget: 0 Forgets correct month or year: 0 Trouble handling complicated financial affairs: 0 Trouble remembering appointments: 0 Daily problems with thinking and/or memory: 0 Total AD8 score:: 0 Mini Cog Dementia Screening tool results Number of words immediately repeated back correctly.: 3 Clock Test: Please draw a clock face and draw in hands to show 10 minutes past eleven o'clock.: correct number placement, 1 pt; correct hand placement, 1 pt Number of Words Recalled: 3 Dementia: Negative No results found. No results found for this visit on 11/09/23. Patient Active Problem List Diagnosis Hypercholesterolemia OA (osteoarthritis)-s/p RIGHT TOTAL HIP REPLACEMENT 02/16/14. 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) Presence of left artificial knee joint Essential hypertension Age-related osteoporosis without current pathological fracture GERD without esophagitis Spinal stenosis of lumbar region without neurogenic claudication Mixed conductive and sensorineural hearing loss of left ear with restricted hearing of right ear Sensorineural hearing loss (SNHL) of left ear with restricted hearing of right ear Chronic diastolic (congestive) heart failure (HCC) Past Medical History: Diagnosis Date Motion sickness seasick Nephrolithiasis 12/19/2019 Added automatically from request for surgery [id number] Post-operative nausea and vomiting Past Surgical History: Procedure Laterality Date BLADDER TUMOR EXCISION N/A 10/26/2019 cystoscopy, bladder biopsy and fulguration of lesions of bladder; Surgeon: Amari Wheeler MD; Location: [facility] MAIN OR; Service: Urology CATARACT REMOVAL Right 02/28/2019 RIGHT EYE CATARACT EXTRACTION WITH PHACOEMULSIFICATION AND INTRAOCULAR LENS; Surgeon: Conor Ramirez MD; Location: [facility]; Service: Ophthalmology CATARACT REMOVAL Left 03/14/2019 LEFT EYE CATARACT EXTRACTION WITH PHACOEMULSIFICATION AND INTRAOCULAR LENS; Surgeon: Conor Ramirez MD; Location: [facility]; Service: Ophthalmology COLONOSCOPY CYSTOSCOPY Right 11/28/2019 cystoscopy right stent placement, right extracorporeal shock wave lithotripsy; Surgeon: Dinh Wheeler MD; Location: [facility] MAIN OR; Service: Urology HEMORRHOID SURGERY HIP ARTHROPLASTY Right 02/16/2014 RIGHT TOTAL HIP REPLACEMENT; Surgeon: Bruce Oh MD; Location: [facility] MAIN OR; Service: Orthopedics HYSTERECTOMY complete LITHOTRIPSY Right 11/28/2019 Surgeon: Amari Wheeler MD; Location: [facility] MAIN OR; Service: Urology LUMBAR DISC SURGERY 11/03/2012 Surgeon: Elza Bautista MD; Location: [facility] MAIN OR; Service: TOTAL KNEE ARTHROPLASTY Left 12/28/2018 left knee total replacement; Surgeon: Bruce Oh MD; Location: [facility] MAIN OR; Service: Orthopedics URETEROSCOPY Right 01/02/2020 cystoscopy, Right Flexible Ureteroscopy, Retrograde, Stent Exchange, Laser Lithotripsy, Basket Retrieval of stone fragments; Surgeon: Amari Wheeler MD; Location: [facility] MAIN OR; Service: Urology Allergies Allergen Reactions Celecoxib Rash [place] Rash Current Outpatient Medications on File Prior to Visit Medication Sig Dispense Refill aspirin 81 mg Oral Tablet, Delayed Release (E.C.) Take 1 Tablet by mouth every morning. 90 Tablet 2 atorvastatin (LIPITOR) 10 mg Oral Tablet Take 1 Tablet by mouth daily for 360 days. 90 Tablet 3 Cholecalciferol, Vitamin D3, 50 mcg (2,000 unit) Oral Capsule Take 1 Capsule by mouth daily. 90 Capsule 2 diclofenac (VOLTAREN) 75 mg Oral Tablet, Delayed Release (E.C.) Take 1 Tablet by mouth 2 times daily for 180 days. with meals 180 Tablet 1 ergocalciferol (DRISDOL) 1,250 mcg (50,000 unit) Oral Capsule Take 1 Capsule by mouth once a week. 12 Capsule 3 famotidine (PEPCID) 40 mg Oral Tablet TAKE 1 TABLET BY MOUTH 2 TIMES DAILY FOR 90 DAYS. 180 Tablet 3 gabapentin (NEURONTIN) 300 mg Oral Capsule Take 1 Capsule by mouth nightly. 30 Capsule 1 lisinopriL (PRINIVIL;ZESTRIL) 20 mg Oral Tablet tablet Take 1 Tablet by mouth daily for 360 days. 90 Tablet 3 meloxicam (MOBIC) 15 mg Oral Tablet Take 1 Tablet by mouth daily. 90 Tablet 2 nortriptyline (PAMELOR) 25 mg Oral Capsule Take 1 capsule in the morning and 1 capsule at dinner 90Capsule 2 No current facility-administered medications on file prior to visit. Social History Socioeconomic History Marital status: Spouse name: None Number of children: None Years of education: None Highest education level: None Tobacco Use Smoking status: Former Current packs/day: 0.00 Average packs/day: 0.5 packs/day for 5.0 years (2.5 ttl pk-yrs) Types: Cigarettes Start date: 1989 Quit date: 1994 Years since quittin.5 Passive exposure: Never Smokeless tobacco: Never Tobacco comments: quit in 1998 Vaping Use Vaping status: Never Used Substance and Sexual Activity Alcohol use: No Drug use: No Social Determinants of Health Financial Resource Strain: Medium Risk (02/27/2023) Overall Financial Resource Strain (CARDIA) Difficulty of Paying Living Expenses: Somewhat hard Food Insecurity: Food Insecurity Present (02/27/2023) Hunger Vital Sign Worried About Running Out of Food in the Last Year: Sometimes true Ran Out of Food in the Last Year: Sometimes true Transportation Needs: Unmet Transportation Needs (02/27/2023) PRAPARE - Transportation Lack of Transportation (Medical): Yes Lack of Transportation (Non-Medical): Yes Stress: No Stress Concern Present (11/07/2022) [employer] [place] [employer] - Occupational Stress Questionnaire Feeling of Stress : Only a little Housing Stability: Low Risk (11/12/2022) Housing Stability Vital Sign Unable to Pay for Housing in the Last Year: No Number of Places Lived in the Last Year: 1 Unstable Housing in the Last Year: No Family History Problem Relation Age of Onset Early Father accident Early Sister Substance Abuse Sister Early Brother accident Early Mother accident Anesth Problems Neg Hx Immunization History Administered Date(s) Administered Influenza High Dose 02/21/2015, 02/09/2016, 01/06/2017, 02/21/2019, 01/28/2020 Influenza Vaccine Quadrivalent Adjuvanted 01/28/2020, 03/29/2022 Influenza Vaccine, Unspecified Formulation 02/04/2014, 02/09/2016 Moderna SARS-CoV-2 Bivalent Booster Vaccine 12+ Years ([place] Border) 02/10/2022, 11/12/2022 Moderna SARS-CoV-2 Vaccine 12+ Yrs (Light blue border) 07/03/2020, 07/31/2020 PPD Test 02/20/2014 Pfizer SARS-CoV-2 Vaccine Joe-sucrose 12+ Yrs [id number] 08/06/2023 Pneumococcal Conjugate Vaccine 13 Valent 02/28/2015 Pneumococcal Polysaccharide 23 Valent 10/13/2012 Quadrivalent Influenza High Dose 02/05/2021 TST,Unspecified Formulation 12/31/2018, 01/07/2019 Tdap 02/28/2015 Health Maintenance Topic Date Due Zoster (1 of 2) Never done RSV or 60+ (1 - 1-dose 60+ series) Never done COVID-19 Vaccine ( - 2022- season) 2023 Influenza Vaccine (1) 01/10/2024 Wellness Exam Medicare 11/09/2024 DTaP/TDaP/Td (2 - Td or Tdap) 02/28/2025 Bone Density Screening Completed Hepatitis C Screening Completed Pneumococcal Vaccine 65+ Completed Hepatitis B Vaccine Aged Out Colon Cancer Screening Discontinued Health Maintenance Due Topic Date Due Zoster (1 of 2) Never done RSV or 60+ (1 - 1-dose 60+ series) Never done Patient Care Team: Palma Jj DO as PCP - General (Family Medicine) Additional issues addressed today: none Review of Systems Constitutional: Negative for activity change and appetite change. All other systems reviewed and are negative. OBJECTIVE: Physical Exam Vitals reviewed. Constitutional: General: She is not in acute distress. Appearance: Normal appearance. She is not ill-appearing, toxic-appearing or diaphoretic. HENT: Head: Normocephalic and atraumatic. Right Ear: Tympanic membrane normal. Left Ear: Tympanic membrane normal. Eyes: Conjunctiva/sclera: Conjunctivae normal. Cardiovascular: Rate and Rhythm: Normal rate. Pulmonary: Effort: Pulmonary effort is normal. Breath sounds: Normal breath sounds. Abdominal: General: Abdomen is flat. Palpations: Abdomen is soft. Musculoskeletal: Right lower leg: No edema. Left lower leg: No edema. Neurological: General: No focal deficit present. Mental Status: She is alert. Mental status is at baseline. Psychiatric: Mood and Affect: Mood normal. Behavior: Behavior normal. Thought Content: Thought content normal. Judgment: Judgment normal. * Jill Beck - 11/09/2023 10:40 AM EDT Venipuncture in the left antecubital vein with 21 gauge needle, length 1 1/2 inch. documented in this encounter Miscellaneous Notes * Patient Instructions - Palma Jj DO - 11/09/2023 10:40 AM EDT Please call Central [phone] to set up your thyroid ultrasound Today as part of your Medicare Wellness Assessment your provider has reviewed a number of components of your chart, current health state, medications, and medical history. At the beginning of today'svisit you may have had some Health Maintenance topics that needed to be completed soon to optimize your care and wellness. Some of these topics may even be overdue. Here is listed the topics that we have outstanding in your record. Health Maintenance Due Topic Date Due Zoster (1 of 2) Never done RSV or 60+ (1 - 1-dose 60+ series) Never done Some of these topics may have been addressed either during the visit such as fall risk screenings, depression screenings, or others that were completed via questionnaire. Some immunizations may have been updated. These topics will reflect in your [facility] account as completed once your provider closes today's visit. Other topics noted above may still need to be completed by you such as additional screening tests, or vaccines. If you don't have any Health Maintenance topics due, congratulations you are all caught up! If notice that you don't have information or a path to complete the above topics please let us know and we will assist you. Remember our goal is to provide you with the best evidence based recommendations and all of the goals above are consistent with national guideline recommendations. Your provider may have ordered additional testing or provided additional information basedon your unique health care needs and those are also important. documented in this encounter Plan of Treatment Upcoming Encounters Date Type Department Care Team (Late st Contact Info) Description 05/16/2024 9:30 AM EST Office Visit [facility] [address] [place] [address] Gilda Francis PA [address] [place] [address] Scheduled Orders Name Type Priority Associated Diagnoses Orde r Schedule DX BONE DENSITY AXIAL INCLUDING VERTEBRAL FRACTURE ASSESSMENT Imaging Routine Screening for osteoporosis Postmenopausal 1 Occurrences starting 11/09/2023 until 11/08/2024 THYROID Imaging Routine Thyroid cyst 1 Occurrences starting 11/09/2023 until 11/08/2024 documented as of this encounter Goals Goal Patient Goal Type Associated Problems Recent Progress Patient-Stated? Author Blood Pressure < 140/90 Blood Pressure 130/90(11/08 10:29 AM EDT) No Palma Jj DO Patient will take her blood sugar once a day for a week in the morning, and report the sugars back to provider General On track(2022 10:50 AM EDT) Yes Geraldine Whiteside, UMA Pay off [facility] by Spring 2023 General On track(2022 8:25 AM EDT) Yes Geraldine Whiteside, UMA Note: -01/28/23 [facility] bill is 120 dollars. Called, no payment assistance available. Continue to pay on it 20 dollars monthly to pay off by Spring 2023 Maintain a healthy diet, exercise regularly and maintain an ideal body weight General No Oralia Merida CCMA Will meet with UMA MICHELLE to have help getting new [place] plan by end of February 2023 General Yes Geraldine Whiteside RN Stay Tobacco Free Lifestyle No Oralia Merida CCMA documented as of this encounter Procedures Procedure Name Priority Date/Time Associated Diagnosis Comments VITAMIN D 25 HYDROXY Routine 11/09/2023 11:21 AM EDT Vitamin D deficiency CBC WITH DIFF Routine 11/09/2023 11:21 AM EDT Medicare annual wellness visit, subsequent NT PROBNP Routine 11/09/2023 11:21 AM EDT Chronic diastolic (congestive) heart failure (HCC) LIPID SCREEN Routine 11/09/2023 11:21 AM EDT Screening for hyperlipidemia BASIC METABOLIC PANEL Routine 11/09/2023 11:21 AM EDT Screening for diabetes mellitus documented in this encounter Results * NT PROBNP (11/09/2023 11:21 AM EDT) NT Pro-BNP 102 <=624 pg/mL 11/09/2023 3:27 PM EDT [facility] VENOUS BLOOD / Unknown Venipuncture / Unknown 11/09/2023 11:21 AM EDT 11/09/2023 11:21 AM EDT Narrative [facility] - 11/09/2023 3:27 PM EDT An NT pro-BNP level less than 300 pg/mL in any patient, regardless of age, effectively rules out acute CHF with a 99% negative predictive value. Ingestion of lakshmi doses of biotin (>5 mg/day) taken within 8 hours of drawing blood sample can interfere with this immunoassay test. us Palma Jj DO CHEMISTRY ORDERABLES Final R esult [facility] [address] [facility] , [address] [place] [id number] * VITAMIN D 25 HYDROXY (11/09/2023 11:21 AM EDT) Vit D 25 OH 55.1 30.0 - 150.0 ng/mL 11/09/2023 3:41 PM EDT [facility] Comment: Preferred: >= 30 ng/mL Insufficient: 21-29 [...] CHEMISTRY ORDERABLES Final R esult [facility] [address] [facility] , [place] [address] * (ABNORMAL) CBC WITH DIFF (11/09/2023 11:21 AM EDT) Pathologist [facility] WBC 7.2 3.7 - 10.3 x10(3)/mcL 11/09/2023 3:06 PM EDT [facility] RBC 4.58 3.90 - 5.20 x10(6)/mcL 11/09/2023 3:06 PM EDT [facility] Hgb 13.2 11.2 - 15.7 g/dL 11/09/2023 [...] 11/09/2023 3:06 PM EDT [facility] RDW 15.4(H) <=14.9 % 11/09/2023 3:06 PM EDT [facility] Platelet 308 155 - 369 x10(3)/Health system 11/09/2023 3:06 PM EDT [facility] MPV 10.1 8.8 - 12.5 fL 11/09/2023 3:06 PM EDT [facility] Neut Percent 39.3 % 11/09/2023 3:06 PM EDT [facility] Comment:Neutrophils equals s egs plus bands Imm Gran% 0.3 % 11/09/2023 3:06 PM EDT [facility] Comment:Automated count of m etamyelocytes, myelocytes and promyelocytes. Lymph Percent 44.4 % 11/09/2023 3:06 PM EDT [facility] [place] Percent 8.1 % 11/09/2023 3:06 PM EDT [facility] Eos Percent 7.1 % 11/09/2023 3:06 PM EDT [facility] [facility] Baso Percent 0.8 % 11/09/2023 3:06 PM EDT [facility] Neut # 2.8 1.6 - 6.1 x10(3)/Health system 11/09/2023 3:06 PM EDT [facility] Comment:Neutrophils equals s egs plus bands IMMGRAN# 0.0 0.0 - 0.1 x10(3)/Health system 11/09/2023 3:06 PM EDT [facility] Comment:Automated count of m etamyelocytes, myelocytes and promyelocytes. An absolute IG <0.1 is reported as 0.0. Lymph # 3.2 1.2 - 3.9 x10(3)/Health system 11/09/2023 3:06 PM EDT [facility] [place] # 0.6 0.3 - 0.9 x10(3)/Health system 11/09/2023 3:06 PM EDT [facility] Eos# 0.5 0.0 - 0.5 x10(3)/Health system 11/09/2023 3:06 PM EDT [facility] Baso # 0.1 0.0 - 0.1 x10(3)/Health system 11/09/2023 3:06 PM EDT [facility] Blood VENOUS BLOOD / Unknown Venipuncture / Unknown 11/09/2023 11:21 AM EDT 11/09/2023 11:21 AM EDT us Palma Jj DO HEMATOLOGY ORDERABLES Final Result [facility] [address] [facility] , [place] [address] * (ABNORMAL) LIPID SCREEN (11/09/2023 11:21 AM EDT) Cholesterol 220(H) <200 mg/dL 11/09/2023 3:35 PM EDT [facility] Comment: < 200 ?Desirable 200 - 239 ? Borderline High >= 240 ?High Triglyceride 91 <150 mg/dL 11/09/2023 3:35 PM EDT [facility] Comment: < 150 ? Normal 150 - 199 ?Borderline High 200 - 499 ?High ??>= 500 ? Very High HDL 53 >=40 mg/dL 11/09/2023 3:35 PM EDT [facility] Comment: ??> 60 ?Optimal 40 - 60 ?Acceptable ?? < 40 ?Low LDL Calculated 151(H) <100 mg/dL 11/09/2023 3:35 PM EDT [facility] Comment: < 100 ?Optimal 100 - 129 ? Near or above optimal 130 - 159 ? Borderline High 160 - 189 ? High >= 190 ?Very High Non-HDL-C Calculated 167(H) <=129 mg/dL 11/09/2023 3:35 PM EDT [facility] Comment: <130 ?Desirable 130-159 Above Desirable 160-189 Borderline High 190-219 High >= 220 ??Very High Fasting Specimen? No None 024 3:35 PM EDT [facility] Blood VENOUS BLOOD / Unknown Venipuncture / Unknown 11/09/2023 11:21 AM EDT 11/09/2023 11:21 AM EDT us Palma Jj DO CHEMISTRY ORDERABLES Final R esult [facility] [address] [facility], [place] [address] [facility] [address] [place] [address] * BASIC METABOLIC PANEL (11/09/2023 11:21 AM EDT) Sodium 141 136 - 145 mmol/L 11/09/2023 3:35 PM EDT [facility] Potassium 4.5 3.5 - 5.0 mmol/L 11/09/2023 3:35 PM EDT [facility] Chloride 105 98 - 107 mmol/L 11/09/2023 3:35 PM EDT [facility] Total CO2 29 22 - 29 mmol/L 11/09/2023 3:35 PM EDT [facility] Anion Gap 7 7 - 16 mmol/L 11/09/2023 3:35 PM EDT [facility] Calcium 9.6 8.8 - 10.4 mg/dL 11/09/2023 3:35 PM EDT [facility] Glucose Lvl 77 70 - 99 mg/dL 11/09/2023 3:35 PM EDT [facility] BUN 19 8 - 23 mg/dL 11/09/2023 3:35 PM EDT [facility] Creatinine 0.74 0.51 - 1.30 mg/dL 11/09/2023 3:35 PM EDT [facility] eGFR (CKD-EPIcr 2020) 83 >=60 mL/min/1.7 3 m2 11/09/2023 3:35 PM EDT [facility] Comment:Estimated GFR was ca lculated using the CKD-EPIcr (2020) equation refit without race. The equation is recommended by the National Kidney Foundation - [place] [employer] of Nephrology Task Force. Blood VENOUS BLOOD / Unknown Venipuncture / Unknown 11/09/2023 11:21 AM EDT 11/09/2023 11:21 AM EDT Palma jJ DO CHEMISTRY ORDERABLES Final R esult [facility] [address] [facility], [address] [address] [place] [address] [facility] [address] [place] [id number] documented in this encounter Visit Diagnoses Diagnosis Medicare annual wellness visit, subsequent- Primary Routine general medical examination at a health care facility Screening for diabetes mellitus Screening for hyperlipidemia Screening for lipoid disorders Screening for osteoporosis Special screening for osteoporosis Postmenopausal Asymptomatic postmenopausal status (age-related) (natural) Thyroid cyst Cyst of thyroid Vitamin D deficiency Unspecified vitamin D deficiency Bilateral carotid artery stenosis Occlusion and stenosis of multiple and bilateral precerebral arteries without mention of cerebral infarction Chronic diastolic (congestive) heart failure (HCC) Essential hypertension Unspecified essential hypertension Chronic diastolic (congestive) heart failure (HCC) documented in this encounter Additional Health Concerns Assessment Noted Time A fall risk assessment has been complete d for the patient 08/06/2023 8:22 AM EDT documented as of this encounter Care Teams Snuff Drier Relationship Specialty Start Date End Date Palma Jj DO [address] [place], [place] [id number] PCP - General Family Medicine 07/14/22 documented as of this encounter
--- OUTSIDE RECORDS SUMMARY | 2024-03-27 14:56 | XMS_ITS | Encounter Summary ---
Author Organization [place] [address] Care Team Providers Care Training And Development Head Name Role Phone Palma Jj DO Primary Care Provider + [phone] Encounter Details Date Type Department Care Team (Late st Contact Info) Description 08/28/2023 Orders Only [facility] [address] [place] [address] Julianna Lea MA Essential hypertension Social History Tobacco Use Types Packs/Day Years Used Date Smoking Tobacco: Former Cigarettes 0.5 5 1 0 - 1994 Passive Smoke Exposure: Never Smokeless [...] Date Recorded PHQ-2 Total Score 0 11/07/2022 [facility] [place] [facility] - Occupational Stress [...] place to sleep or slept in a [facility] (including now)? No 11/12/2022 Comments No Sex [...] 11/07/2022 8:01 AM Tomi Huggins CCMA documented as of this encounter Mental Status * Because of a physical, mental or emotional condition, does this person have serious difficulty concentrating, remembering or making decisions? Answer Entry Date Author No 11/07/2022 8:01 AM EDT Tomi Slaughter CCMA documented in this encounter Ordered Prescriptions Prescription Sig Dispense Quantity Refills Last Filled Start Date End Date lisinopriL (PRINIVIL;ZESTRIL) 20 mg Oral Tablet tabletIndications: Essential hypertension Take 1 Tablet by mouth daily for 360 days. 90 Tablet 3 08/28/2023 08/22/2024 diclofenac (VOLTAREN) 75 mg Oral Tablet, Delayed Release (E.C.) Take 1 Tablet by mouth 2 times daily for 180 days. with meals 180 Tablet 1 08/28/2023 02/24/2024 documented in this encounter Plan of Treatment Upcoming Encounters Date Type Department Care Team (Late st Contact Info) Description 05/16/2024 9:30 AM EST Office Visit [facility] [address] [place] [phone] Gilda Francis PA [address] [place] [address] documented as of this encounter Goals Goal Patient Goal Type Associated Problems Recent Progress Patient-Stated? Author Blood Pressure < 140/90 Blood Pressure 130/90(11/08 10:29 AM EDT) No Palma Jj, DO Patient will take her blood sugar once a day for a week in the morning, and report the sugars back to provider General On track(2022 10:50 AM EDT) Yes Geraldine Whiteside RN Pay off [facility] by Spring [...] UMA MICHELLE to have help getting new [place] plan by end February 2023 General Yes Miesha, Geraldine, RN Stay Tobacco Free Lifestyle No Oralia Merida CCMA documented as of this encounter Visit Diagnoses Diagnosis Essential hypertension Unspecified essential hypertension documented in this encounter Discontinued Medications Medication Sig Discontinue Reason Start Date End Da te lisinopriL (PRINIVIL;ZESTRIL) 20 mg Oral Tablet tabletIndications:Danielitoenti al hypertension Take 1 Tablet by mouth daily for 360 days. Reorder 07/06/2023 08/28/2023 documented as of this encounter Additional Health Concerns Assessment Noted Time A fall risk assessment has been complete d for the patient 08/06/2023 8:22 AM EDT documented as of this encounter Care Teams Training And Development Head Relationship Specialty Start Date End Date Palma [place] [address] PCP - General Family Medicine 07/14/22 documented as of this encounter
--- OUTSIDE RECORDS SUMMARY | 2024-03-27 14:56 | XMS_ITS | Encounter Summary ---
Author Organization [place] [address] Care Team Providers Care Heating And Ventilating Worker Name Role Phone Palma Jj DO Primary Care Provider + [phone] Reason for Referral * Physical Therapy (Routine) - Pending Review Specialty Diagnoses / Procedures Referred By Ramona mcdaniel Referred To Contact Physical Therapy Diagnoses Acquired clubfoot, right foot Rachael Steven DPM [address] [place] [address] Phone: tel: fax: [facility] [place] [address] Phone: tel: fax: Referral ID Status Reason Start Date Expiration Date V isits Requested Visits Authorized [id number] Pending Review 09/14/2023 09/13/2024 1 1 Question Answer Reason for Physical Therapy Evaluate and Treat, Fall history and/or weakness Reason for Visit * Reason Comments Calluses L * Consultation (Routine) - Pending Review Specialty Diagnoses / Procedures Referred By Ramona mcdaniel Referred To Contact Podiatry Diagnoses Chronic foot pain, left Osteoarthritis of left foot, unspecified osteoarthritis type Palma Jj DO [address] [place], [place] [id number] Phone: tel: fax: [facility] [address] [place] [address] Phone: tel: fax: Referral ID Status Reason Start Date Expiration Date V isits Requested Visits Authorized [id number] Pending Review 08/06/2023 08/05/2024 99 99 Encounter Details Date Type Department Care Team (Late st Contact Info) Description 09/14/2023 11:00 AM EDT Office Visit [facility] [address] [place] [address] Rachael Steven, [facility] [address] [address] Acquired clubfoot, right foot (Primary Dx); Right foot pain; Corns and callosities; Punctate porokeratosis; Left foot pain Social History Tobacco Use Types Packs/Day Years Used Date Smoking Tobacco: Former Cigarettes 0.5 5 1 0 - 1994 Passive Smoke Exposure: Never Smokeless Tobacco: Never Tobacco Cessation:Counseling Given: Not Answered Comments:quit in 1998 Alcohol Use Standard Drinks/Week Comments No 0 (1 standard drink = 0.6 oz pur e alcohol) Overall Financial Resource Strain (CARDIA) Answe r Date Recorded How hard is it for you to pa y for the very basics like food, housing, medical care, and heating? Somewhat hard 02/27/2023 PHQ-2 Answer Date Recorded PHQ-2 Total Score 0 11/07/2022 [facility] [place] [facility] - Occupational Stress [...] place to sleep or slept in a care home (including now)? No 11/12/2022 Comments No Sex and Gender Information Value Date Recorded Sex Assigned at Not on file Legal Sex Female 5:30 PM EDT Gender Identity Not on file Sexual Orientation Not on file documented as of this encounter Last Filed Vital Signs Vital Sign Reading Time Taken Comments Blood Pressure - - Pulse - - Temperature - - Respiratory Rate - - Oxygen Saturation - - Inhaled Oxygen Concentration - - Weight 68.5 kg (151 lb) 09/14/2023 11:02 AM EDT Height - - Body Mass Index 29.49 07/28/2023 9:18 AM EDT documented in this [...] documented in this encounter Progress Notes * Rachael Steven DPM - 09/14/2023 11:00 AM EDT [facility] Podiatric Surgery Outpatient Note Name: Stella Tavarez Primary Care Physician: Palma Jj, DO Last A1C if applicable: No results found for: HGBA1C Chief Complaint: Chief Complaint Calluses History of Presenting Illness: Stella Tavarez is a 77 y.o. female who is here for evaluation and/or treatment of right foot pain. Patient states the pain started approximately months to years ago and describes the onset as insidious. States that the foot turns inward constantly. Since then, the pain has gotten progressively worse. Patient admits to experiencing pain from the condition currently, rating it moderate in severity.Patient states the pain is aggravated with weight bearing and alleviated with rest. Denies previoustreatment. Denies history of stroke. Also complains of a painful callus on the left foot. Inquires about treatment options. States it is painful with weight bearing. Patient has no other pedal complaints at this time. Medications: Outpatient Medications Marked as Taking for the 09/14/23 encounter (Office Visit) with Rachael Steven DPM Medication Sig Dispense Refill aspirin 81 mg [...] 3 famotidine (PEPCID) 40 mg Oral Tablet Take 1 Tablet by mouth 2 times daily for 360 days. 180 Tablet3 gabapentin (NEURONTIN) 300 mg Oral Capsule Take [...] and 1 capsule at dinner 90Capsule 2 Allergies Allergen Reactions Celecoxib Rash Quapaw Rash Past Medical History: Diagnosis Date Motion sickness seasick Nephrolithiasis 12/19/2019 Added automatically from request for surgery [id number] Post-operative nausea and vomiting Past Surgical History: Procedure Laterality Date BLADDER TUMOR EXCISION N/A 10/26/2019 cystoscopy, bladder biopsy and fulguration of lesions of bladder; Surgeon: Amari Wheeler MD; Location: [facility] MAIN OR; Service: Urology CATARACT REMOVAL Right 02/28/2019 RIGHT EYE CATARACT EXTRACTION WITH PHACOEMULSIFICATION AND INTRAOCULAR LENS; Surgeon: Conor Ramirez MD; Location: [facility]; Service: Ophthalmology CATARACT REMOVAL Left 03/14/2019 LEFT EYE CATARACT EXTRACTION WITH PHACOEMULSIFICATION AND INTRAOCULAR LENS; Surgeon: Conor Ramirez MD; Location: [facility]; Service: Ophthalmology COLONOSCOPY CYSTOSCOPY Right 11/28/2019 cystoscopy right stent placement, right extracorporeal shock wave lithotripsy; Surgeon: Dinh Wheeler MD; Location: [facility]; Service: Urology HEMORRHOID SURGERY HIP ARTHROPLASTY Right 02/16/2014 RIGHT TOTAL HIP REPLACEMENT; Surgeon: Bruce Oh MD; Location: [facility] MAIN OR; Service: Orthopedics HYSTERECTOMY complete LITHOTRIPSY Right 11/28/2019 Surgeon: Amari Wheeler MD; Location: [facility]; Service: Urology LUMBAR DISC SURGERY 11/03/2012 Surgeon: Elza Bautista MD; Location: [facility] MAIN OR; Service: TOTAL KNEE ARTHROPLASTY Left 12/28/2018 left knee total replacement; Surgeon: Bruce Oh MD; Location: [facility] MAIN OR; Service: Orthopedics URETEROSCOPY Right 01/02/2020 cystoscopy, Right Flexible Ureteroscopy, Retrograde, Stent Exchange, Laser Lithotripsy, Basket Retrieval of stone fragments; Surgeon: Amari Wheeler MD; Location: [facility] MAIN OR; Service: Urology Family History Problem Relation Age of Onset Early Father accident Early Sister Substance Abuse Sister Early Brother accident Early Mother accident Anesth Problems Neg Hx Social History: Johny social history reviewed: Social History Socioeconomic History Marital status: Spouse name: None Number of children: None Years of education: None Highest education level: None Tobacco Use Smoking status: Former Current packs/day: 0.00 Average packs/day: 0.5 packs/day for 5.0 years (2.5 ttl pk-yrs) Types: Cigarettes Start date: 1989 Quit date: 1994 Years since quittin.3 Passive exposure: Never Smokeless tobacco: Never Tobacco [...] Yes Stress: No Stress Concern Present (11/07/2022) [place] [place] [facility] - Occupational Stress Questionnaire Feeling of Stress : Only a little Housing Stability: Low Risk (11/12/2022) Housing Stability Vital Sign Unable to Pay for Housing in the Last Year: No Number of Places Lived in the Last Year: 1 Unstable Housing in the Last Year: No Review of Systems: The following systems were reviewed and revealed the following in addition to any already discussedin the HPI: Constitutional: Age appropriate, denies F/C/N/V/SOB HENT: NEG: difficulty swallowing Respiratory: NEG: shortness of breath and chest pain Gastrointestinal: NEG: nausea and vomiting Genitourinary: NEG: pain with urination Musculoskeletal: Negative except per physical exam Integumentary: NEG: bruising, chronic wound and lacerations Hematology / Lymphatics: NEG: bruises and bleeding problems Psychiatric: Mood/affect appropriate Physical Examination: Vital Signs: Wt 151 lb (68.5 kg) LMP (LMP Unknown) BMI 29.49 kg/m?? General: Stella appears in no acute distress Extremities/Musculoskeletal: See Exam Lower Extremity Exam: Constitutional The patient is awake, alert, well developed, well-nourished and well groomed. No acute distress. Cardiovascular DP pulses are 1/4 bilateral and PT pulses are 1/4 bilateral. CFT <3 seconds to digits 1-5 bilateral. Hair growth is absent to the level of the digits bilateral. Skin temperature is warm to cool proximal to distal and equal bilateral, with no focal calor noted. no varicosities bilateral LE. no edema bilateral LE. Neurologic Sensation intact to light touch and 5.07/10g [place] Jhonatan monofilament bilateral. Vibratory sensation intact bilateral. Negative Tinel sign bilateral. Dermatologic Integument is dry, supple bilateral. Nails 1-5 bilateral are WNL for thickness, length, and color. Webspaces 1-4 b/l are clean, dry, and intact. Focal hyperkeratotic tissue sub styloid process left foot. Musculoskeletal Pain with palpation noted to right foot Pain with palpation of hyperkeratotic tissue on the left. Cavoadductovarus right foot. Muscle strength is 5/5 for inversion and plantarflexion, 4/5 dorsiflexion, 3/5 eversion on the right. Gait is antalgic. Assessment: Stella Titi Tavarez was seen today for Chief Complaint Patient presents with Calluses Rhea Douglas was seen today for calluses. Diagnoses and all orders for this visit: Acquired clubfoot, right foot - AMB REFERRAL TO PHYSICAL THERAPY Right foot pain Corns and callosities Punctate porokeratosis Left foot pain Plan: - Patient examined and evaluated - We discussed treatment options. - Referral to physical therapy to improve everter and dorsiflexion muscle strength - Recommended lotion daily - Can soak feet warm water and epsom salt and use a pumice stone - All of patient's questions, comments and concerns were addressed. Patient agreeable to plan. Rachael Steven DPM [facility] 09/14/2023 documented in this encounter Plan of Treatment Upcoming Encounters Date Type Department Care Team (Late st Contact Info) Description 05/16/2024 9:30 AM EST Office Visit [facility] [address] [place] [phone] Gilda Francis PA [address] [place] [address] Scheduled Referrals Name Type Priority Associated Diagnoses Orde r Schedule AMB REFERRAL TO PHYSICAL THERAPY Outpatient Referral Routine Acquired clubfoot, right foot Ordered: 09/14/2023 documented as of this encounter Goals Goal [...] UMA MICHELLE to have help getting new [place] plan by end February 2023 General Yes Geraldine Whiteside RN Stay Tobacco Free Lifestyle No Oralia Merida CCMA documented as of this encounter Visit Diagnoses Diagnosis Acquired clubfoot, right foot- Primary Right foot pain Pain in limb Corns and callosities Punctate porokeratosis Left foot pain Pain in limb documented in this encounter Additional Health Concerns Assessment Noted Time A fall risk assessment has been complete d for the patient 08/06/2023 8:22 AM EDT documented as of this encounter Care Teams Heating And Ventilating Worker Relationship Specialty Start Date End Date Palma Jj DO [address] [place] [id number] PCP - General Family Medicine 07/14/22 documented as of this encounter
--- OUTSIDE RECORDS SUMMARY | 2024-03-27 14:56 | XMS_ITS | Encounter Summary ---
Author Organization 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 No 11/12/2022 Comments No Sex [...] - Inhaled Oxygen Concentration - - Weight 69.9 kg (154 lb) 07/28/2023 9:18 AM EDT Height 152.4 cm (5') 07/28/2023 9:18 AM EDT Body Mass Index 30.08 07/28/2023 9:18 AM EDT documented in this encounter Functional Status * Is the person deaf or does he/she have serious difficulty hearing? Answer Date of Assessment Author No 11/07/2022 8:01 AM EDTomi José CCMA * Is the person blind or does he/she have serious difficulty seeing even when wearing glasses? Answer Date of Assessment Author No 11/07/2022 8:01 AM KUSH Tomi Slaughter CCMA * Does this person have serious difficulty walking or climbing stairs? Answer Date of Assessment Author No 11/07/2022 8:01 AM KUSH Tomi Slaughter CCMA * Does this person have difficulty dressing or bathing? Answer Date of Assessment Author No 11/07/2022 8:01 AM KUSH SlaughterTomi CCMA * Because of a physical, mental or emotional condition, does this person have difficulty doing errands alone such as visiting a doctor's office or shopping? Answer Date of Assessment Author No 11/07/2022 8:01 AM KUSH Tomi Slaughter CCMA documented as of this encounter Mental Status * Because of a physical, mental or emotional condition, does this person have serious difficulty concentrating, remembering or making decisions? Answer Entry Date Author No 11/07/2022 8:01 AM CAITTomi José CCMA documented in this encounter Progress Notes * Chanel Acevedo, PATRICIA - 07/28/2023 9:45 AM EDT Images from the original note were not included. Subjective Subjective: Patient ID: Stella Tavarez is a 77 y.o. female who presents today for Chief Complaint Patient presents with Follow-up Neck Pain Back Pain HPI: Stella Tavarez is a 77 y.o. female who presents for follow-up evaluation regarding their pain. Symptoms are unchanged since last visit. No interventions for pain were performed since last visit. Has xrays of cervical spine ordered and will complete. Says that she has more stiffness than anything inthe neck. Seeing [facility] for osteoporosis treatment and taking gabapentin. Surgery recommended by Dr. Corrales but needing improved bone health prior to surgery. Characterization of Primary Pain: Location of Pain: Low-back - bilateral Pain Ratin/10 on NRS Quality: aching, throbbing, and sharp Temporal Profile: constant with intermittent exacerbations Referral Pattern: Pain radiates to the right and left buttocks Exacerbating Factors: increased activity, prolonged standing, and walking Relieving Factors: rest and medications Associated Symptoms: Patient denies any red flag symptoms such as urinary/bowel incontinence, progressive weakness in the extremities, and/or saddle anesthesia. Characterization of Secondary Pain: Location of Pain: Neck - bilateral Pain Ratin/10 on NRS Quality: aching and dull Temporal Profile: constant with intermittent exacerbations Referral Pattern: Pain is not referred Exacerbating Factors: increased activity and activities of daily living Relieving Factors: rest Associated Symptoms: Patient denies any red flag symptoms such as urinary/bowel incontinence, progressive weakness in the extremities, and/or saddle anesthesia. The patient's current medication regimen partially controls their pain to the point of making theirpain more tolerable. They report >50% improvement in their ability to perform ADL's. No apparentside effects are noted with current medication regimen. Review of Systems Musculoskeletal: Positive for back pain and neck pain. All other systems reviewed and are negative. Past Medical History: Diagnosis Date Allergy Arthritis generalized Does use hearing aid bilateral Hyperlipidemia Kidney stone hx of Motion sickness seasick Nephrolithiasis 12/19/2019 Added automatically from request for surgery [id number] Osteopenia Post-operative nausea and vomiting Urinary tract infection frequent UTI's Past Surgical History: Procedure Laterality Date BLADDER TUMOR EXCISION N/A 10/26/2019 cystoscopy, bladder biopsy and fulguration of lesions of bladder; Surgeon: Amari Wheeler MD; Location: [facility]; Service: Urology CATARACT REMOVAL Right 02/28/2019 RIGHT EYE CATARACT EXTRACTION WITH PHACOEMULSIFICATION AND INTRAOCULAR LENS; Surgeon: Conor Ramirez MD; Location: [facility]; Service: Ophthalmology CATARACT REMOVAL Left 03/14/2019 LEFT EYE CATARACT EXTRACTION WITH PHACOEMULSIFICATION AND INTRAOCULAR LENS; Surgeon: Conor Ramirez MD; Location: [facility]; Service: Ophthalmology COLONOSCOPY CYSTOSCOPY Right 11/28/2019 cystoscopy right stent placement, right extracorporeal shock wave lithotripsy; Surgeon: Dinh Wheeler MD; Location: [facility] MAIN OR; Service: Urology HEMORRHOID SURGERY HIP ARTHROPLASTY Right 02/16/2014 RIGHT TOTAL HIP REPLACEMENT; Surgeon: Bruce Oh MD; Location: [facility] MA[facility] OR; Service: Orthopedics HYSTERECTOMY complete LITHOTRIPSY Right 11/28/2019 Surgeon: Amari Wheeler MD; Location: [facility] MA[facility] OR; Service: Urology LUMBAR DISC SURGERY 11/03/2012 Surgeon: Elza Bautista MD; Location: [facility]; Service: TOTAL KNEE ARTHROPLASTY Left 12/28/2018 left knee total replacement; Surgeon: Bruce Oh MD; Location: [facility]; Service: Orthopedics URETEROSCOPY Right 01/02/2020 cystoscopy, Right Flexible Ureteroscopy, Retrograde, Stent Exchange, Laser Lithotripsy, Basket Retrieval of stone fragments; Surgeon: Amari Wheeler MD; Location: [facility]; Service: Urology Family History Problem Relation Age of Onset Early Father accident Early Sister Substance Abuse Sister Early Brother accident Early Mother accident Anesth Problems Neg Hx Social History Socioeconomic History Marital status: Spouse name: Not on file Number of children: Not on file Years of education: Not on file Highest education level: Not on file Occupational History Not on file Tobacco Use Smoking status: Former Current packs/day: 0.00 Average packs/day: 0.5 packs/day for 5.0 years (2.5 ttl pk-yrs) Types: Cigarettes Start date: 1989 Quit date: 1994 Years since quittin.2 Passive exposure: Never Smokeless tobacco: Never Tobacco comments: quit in 1998 Vaping Use Vaping Use: Never used Substance and Sexual Activity Alcohol use: No Drug use: No Sexual activity: Not on file Other Topics Concern Not on file Social History Narrative Not on file Social Determinants of Health Financial Resource Strain: [...] (Medical): Yes Lack of Transportation (Non-Medical): Yes Physical Activity: Not on file Stress: No Stress Concern Present (11/07/2022) [facility] - Occupational Stress Questionnaire Feeling of Stress : Only a little Social Connections: Not on file Intimate Partner Violence: Not on file Housing Stability: Low Risk (11/12/2022) Housing Stability Vital Sign Unable to Pay for Housing in the Last Year: No Number of Places Lived in the Last Year: 1 Unstable Housing in the Last Year: No Patients past medical, surgical, family and social histories were reviewed and updated. There were no changes except as noted. Current Outpatient Medications: aspirin 81 mg Oral Tablet, Delayed Release (E.C.), Take 1 Tablet by mouth every morning., Disp: 90 Tablet, Rfl: 2 atorvastatin (LIPITOR) 10 mg Oral Tablet, Take 1 Tablet by mouth daily for 360 days., Disp: 90 Tablet, Rfl: 3 Cholecalciferol, Vitamin D3, 50 mcg (2,000 unit) Oral Capsule, Take 1 Capsule by mouth daily., Disp: 90 Capsule, Rfl: 2 ergocalciferol (DRISDOL) 1,250 mcg (50,000 unit) Oral Capsule, Take 1 Capsule by mouth once a week., Disp: 12 Capsule, Rfl: 3 famotidine (PEPCID) 40 mg Oral Tablet, Take 1 Tablet by mouth 2 times daily for 360 days., Disp: 180 Tablet, Rfl: 3 gabapentin (NEURONTIN) 300 mg Oral Capsule, Take 1 Capsule by mouth nightly., Disp: 30 Capsule, Rfl: 1 lisinopriL (PRINIVIL;ZESTRIL) 20 mg Oral Tablet tablet, Take 1 Tablet by mouth daily for 360 days.,Disp: 90 Tablet, Rfl: 3 meloxicam (MOBIC) 15 mg Oral Tablet, Take 1 Tablet by mouth daily., Disp: 90 Tablet, Rfl: 2 nortriptyline (PAMELOR) 25 mg Oral Capsule, Take 1 capsule in the morning and 1 capsule at dinner, Disp: 90 Capsule, Rfl: 2 Objective Objective: Vitals: 07/28/23 0918 Weight: 154 lb (69.9 kg) Height: 5' (1.524 m) Body mass index is 30.08 kg/m??. Physical Exam Vitals and nursing note reviewed. Constitutional: General: She is not in acute distress. Appearance: She is well-developed. She is not diaphoretic. HENT: Head: Normocephalic and atraumatic. Right Ear: External ear normal. Left Ear: External ear normal. Eyes: Pupils: Pupils are equal, round, and reactive to light. Cardiovascular: Rate and Rhythm: Normal rate. Comments: No cyanosis noted Pulmonary: Effort: Pulmonary effort is normal. No respiratory distress. Abdominal: Palpations: Abdomen is soft. Musculoskeletal: Cervical back: Neck supple. Tenderness present. Decreased range of motion. Lumbar back: Tenderness present. Decreased range of motion. Back: Comments: Bilateral facet pain worse with facet loading in lumbar region Skin: General: Skin is warm and dry. Neurological: Mental Status: She is alert and oriented to person, place, and time. Cranial Nerves: No cranial nerve deficit. Sensory: No sensory deficit. Psychiatric: Speech: Speech normal. Behavior: Behavior normal. Thought Content: Thought content normal. Image Review: Results for orders placed in visit on 11/03/22 MRI LUMBAR SPINE WO CONTRAST Narrative Please see the scanned MRI report associated with this order on the Imaging tab of the patient's chart. No results found for this or any previous visit. No results found for this or any previous visit. No results found for this or any previous visit. No results found for this or any previous visit. Results for orders placed in visit on 10/22/22 XR LUMBAR SPINE AP AND LATERAL Narrative Please see physician's note from office encounter for x-ray imaging result No results found for this or any previous visit. Prescription Monitoring Program: No data to display No data to display No results found for: UAMPHET , LABBARB , LABBENZ , UBUPREN , UCARISO , COCAINEMETAB , UMEPERI , METHADONEAND , OPIATE , OXYCODONELVL , LABPHEN , UPROPOX , UTAPENT , UTRAMAD , CANNABINOIDM , UZOLPID , URINECREARUP , DRUGPANELINT No results found for: DRUGEXPECT , URCREATININE , ALPRAZOLAM , AHDALPRAZ , CLONAZEPAM , 7AMNCLON , DIAZEPAM , NORDIAZEPAM , FLUNITRAZ , 7AMNFLUN , FLURAZEPAM , HDXYETFLUR , LORAZEPAM , LORAZGLUC , MIDAZOLAM , AHDMIDAZ , OXAZEPAM , OXAZGLUC , TEMAZEPAM , TEMAZGLUC , TRIAZOLAM , AHDTRIAZ [facility] and most recent UDS reviewed on 07/28/2023 as available. . 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 Surgery recommended by Dr. Corrales but needing improved bone health prior to surgery - Will complete cervical xrays previously ordered. - Continue current medication as prescribed by outside provider. - No follow-ups on file. Chanel Acevedo APRN Interventional Pain Management [facility] [place] documented in this encounter Plan of Treatment Upcoming Encounters Date Type Department Care Team (Late st Contact Info) Description 05/16/2024 9:30 AM EST Office Visit [facility] [address] [place] [address] Gilda Francis PA [address] [place] [address] documented as of this encounter [...] UMA MICHELLE to have help getting new [place] plan by end of February 2023 General Yes Geraldine Whiteside RN Stay Tobacco Free Lifestyle No Oralia Merida CCMA documented as of this encounter Visit Diagnoses Diagnosis Failed back syndrome of lumbar spine- Primary Postlaminectomy syndrome, lumbar region Intervertebral disc disorder with radiculopathy of lumbosacral region Thoracic or lumbosacral neuritis or radiculitis, unspecified Cervicalgia Chronic pain syndrome Spondylosis of lumbosacral region without myelopathy or radiculopathy Lumbosacral spondylosis without myelopathy documented in this encounter Additional Health Concerns Assessment Noted Time A fall risk assessment has been complete d for the patient 07/28/2022 8:48 AM EDT documented as of this encounter Care Teams Refrigerator Glazier Relationship Specialty Start Date End Date [place] [address] PCP - General Family Medicine 07/14/22 documented as of this encounter
--- OUTSIDE RECORDS SUMMARY | 2024-03-27 14:56 | XMS_ITS | Encounter Summary ---
Author Organization [facility] Address [place] [address] Care Team Providers Care Press Box Custodian Name Role Phone Palma Jj DO Primary Care Provider + [phone] Reason for Visit * Reason Comments Medication Refill Encounter Details Date Type Department Care Team (Late st Contact Info) Description 12/10/2023 Refill [facility] [address] [place] [address] Palma Jj DO [address] [place] [phone] Medication Refill Social History Tobacco Use Types Packs/Day Years [...] Date Recorded PHQ-2 Total Score 0 11/09/2023 [facility] of Occupat ional Health - Occupational Stress [...] place to sleep or slept in a longterm (including now)? No 11/12/2022 Comments No Sex [...] 1 CAPSULE AT DINNER 180 Capsule 3 12/10/2023 documented in this encounter Miscellaneous Notes * Telephone Encounter - Lida Hernandez CPhT - 12/10/2023 8:01 AM EDT Nortriptyline- Medication Refill Protocol failed due to labs, vitals or acute exacerbations. 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 Patient needs labwork or vitals completed. Routed to office staff for outreach. This diagnosis was last assessed on 07/06/23. documented in this encounter Plan of Treatment Upcoming Encounters Date Type Department Care Team (Late st Contact Info) Description 05/16/2024 9:30 AM EST Office Visit [facility] [address] [place] [phone] Gilda Francis PA [address] [place] [address] documented as of this encounter Goals Goal [...] UMA MICHELLE to have help getting new [place] plan by end February 2023 General Yes [...] the morning and 1 capsule at dinner 09/24/2023 12/10/2023 documented as of this encounter Additional Health Concerns Assessment Noted Time A fall risk assessment has been complete d for the patient 08/06/2023 8:22 AM EDT documented as of this encounter Care Teams Press Box Custodian Relationship Specialty Start Date End Date Palma Jj DO [address] [place] [address] PCP - General Family Medicine 07/14/22 documented as of this encounter
--- OUTSIDE RECORDS SUMMARY | 2024-03-27 14:56 | XMS_ITS | Encounter Summary ---
Author Organization [facility] Address [facility] [email or web address] [address] Care Team Providers Care Vegetable Washer Name Role Phone Palma Jj DO Primary Care Provider + [phone] Reason for Referral * Consultation (Routine) - Authorization Not Needed Specialty Diagnoses / Procedures Referred By Ramona [email or web address] Referred To Contact Diagnoses Chronic foot pain, right Procedures [place] OFFICE/OP CONSLTJ NEW/EST PT MOD MDM 40 MINUTES Palma Jj DO [address] [place] [address] Phone: tel: fax: Referral ID Status Reason Start Date Expiration Date Visits Requested Visits Authorized [id number] Authorization Not Needed 11/03/2023 11/02/2024 99 99 Reason for Visit * Reason Onset Date Comments Referral 11/03/2023 Podiatry referra l Encounter Details Date Type Department Care Team (Late st Contact Info) Description 11/03/2023 Telephone [facility] [place] [address] [place] [address] Palma Jj DO [address] [place] [address] Referral (Podiatry referral) Social History Tobacco Use Types Packs/Day Years [...] Date Recorded PHQ-2 Total Score 0 11/07/2022 [facility] Occupat ional Health - Occupational Stress [...] place to sleep or slept in a residential (including now)? No 11/12/2022 Comments No Sex [...] Tomi Huggins CCMA documented in this encounter Miscellaneous Notes * Telephone Encounter - Julianna eLa MA - 11/03/2023 10:03 AM EDT Referral placed and faxed over * Telephone Encounter - Stefania Alcantar, Clerical Staff - 11/03/2023 9:54 AM EDT Select the most appropriate reason for this telephone message: Referral Request Who is requesting the referral: Patient What type of referral: Podiatry What is the reason / diagnosis for this referral: Foot pain and growth on foot Have you been seen by your PCP for this issue: Yes Does patient have a preference on a group/provider: Yes (if yes, complete preferred provider info below) Preferred Provider/Group Name: [facility] Preferred Provider/Group Preferred Provider/Group Additional Information: Pt is wanting a referral sent to this Podiatry because she did not care forthe last Lithographic Press Operator she went to documented in this encounter Plan of Treatment Upcoming Encounters Date Type Department Care Team (Late st Contact Info) Description 05/16/2024 9:30 AM EST Office Visit [facility] [address] [place] [phone] Gilda Francis PA [address] [place] [address] Scheduled Referrals Name Type Priority Associated Diagnoses Orde r Schedule AMB REFERRAL TO PODIATRY Outpatient Referral Routine Chronic foot pain, right Ordered: 11/03/2023 documented as of this encounter Goals Goal [...] UMA MICHELLE to have help getting new [place] plan by end of February 2023 General Yes Geraldine Whiteside RN Stay Tobacco Free Lifestyle No Oralia Merida CCMA documented as of this encounter Visit Diagnoses Diagnosis Chronic foot pain, right- Primary documented in this encounter Additional Health Concerns Assessment Noted Time A fall risk assessment has been complete d for the patient 08/06/2023 8:22 AM EDT documented as of this encounter Care Teams Vegetable Washer Relationship Specialty Start Date End Date Palma Jj DO [address] [place] [address] PCP - General Family Medicine 07/14/22 documented as of this encounter
--- OUTSIDE RECORDS SUMMARY | 2024-03-27 14:56 | XMS_ITS | Encounter Summary ---
Author Organization [place] [address] Care Team Providers Care Sole Skiver Name Role Phone Palma Jj DO Primary Care Provider + [phone] Reason for Visit * Reason Onset Date Comments Medication Management 09/09/2023 True Metri x Meter Encounter Details Date Type Department Care Team (Late st Contact Info) Description 09/09/2023 Telephone [facility] [address] [place] [address] Palma Jj DO [address] [place] [address] Medication Management (True Metrix Meter) Social History Tobacco Use Types Packs/Day Years [...] Date Recorded PHQ-2 Total Score 0 11/07/2022 [facility] [place] of Occupat ional Health - Occupational Stress [...] Tomi Slaughter CCMA documented in this encounter Miscellaneous Notes * Telephone Encounter - Julianna Lea MA - 09/10/2023 2:13 PM EDT Called and spoke to Pt. She wasn't sure why her insurance is trying to get a meter. Pt is notified she doesn't not need one and ok with this. * Telephone Encounter - Palma Jj DO - 09/09/2023 4:55 PM EDT I did not order. I also do not see an indication for this. * Telephone Encounter - Julianna Lea MA - 09/09/2023 4:05 PM EDT Can you check into Pt chart prior to me calling her. I don't see a diagnosis of diabetes or anything that would require her to need a meter. Can you check to make sure I'm not missing something? * Telephone Encounter - Luis Fuller - 09/09/2023 12:07 PM EDT Select the most appropriate reason for this telephone message: Medication Management/Problem Who is calling? Patient What medication(s) do you have concerns about: True Metrix Meter Prescribing provider: Palma Jj, DO What are your concerns/request: PT stated she was prescribed a True Metrix Meter. She stated that they pharmacy sent her a message stating that they need more information before they can send it to her. Desired outcome: Other requesting more info to be sent to pharmacy Last appointment date: 08/05 Pharmacy: [facility] Additional notes: n/a documented in this encounter Plan of Treatment Upcoming Encounters Date Type Department Care Team (Late st Contact Info) Description 05/16/2024 9:30 AM EST Office Visit [facility] [address] [place] [phone] Gilda Francis PA [address] [place] [address] documented as of this encounter [...] an ideal body weight General No Oralia Mreida CCMA Will meet with UMA MICHELLE to have help getting new [place] plan by end of February 2023 General Yes Geraldine Whiteside RN Stay Tobacco Free Lifestyle No Oralia Merida CCMA documented as of this encounter Visit Diagnoses Not on filedocumented in this encounter Additional Health Concerns Assessment Noted Time A fall risk assessment has been complete d for the patient 08/06/2023 8:22 AM EDT documented as of this encounter Care Teams Sole Skiver Relationship Specialty Start Date End Date Palma Jj DO [address], [place] [id number] PCP - General Family Medicine 07/14/22 documented as of this encounter
--- OUTSIDE RECORDS SUMMARY | 2024-03-27 14:56 | XMS_ITS | Referral Summary ---
Author Organization [facility] Address [address] [place] [address] Phone Care Team Providers Care Machine Loader Name Role Phone Palma Jj DO Primary Care Provider + [phone] Encounters Date Type Department Care Team Description 02/15/2024 8:00 AM EDT Office Visit [facility] [address] [place] [address] Gilda Francis PA Cervicalgia (Primary [...] of right knee 01/14/2024 Orders Only [facility] [address] [place] [address] Palma Jj DO Age-related osteoporosis without current pathological fracture (Primary Dx) 01/14/2024 [facility]phone [facility] [address] [place] [address] Palma Jj DO Medication Management (Nathalie called on patient's behalf- requesting med change) from Last 3 Months Allergies Active Allergy Reactions Criticality Noted Date Comments Celecoxib Rash High 02/16/2014 [place] Rash 01/01/2023 Medications meloxicam (MOBIC) 15 mg [...] migh t be different from the original. [facility] - Clay Ness MD Controlled Substance Protocol Completed: Gabapentin and/or Pregabalin A. Informed Consent Statement signed (Yearly) ( Needs ) B. Controlled Substance Agreement signed (Yearly) ( Needs ) D. Osei report completed (EVERY 3 MONTHS) ( 02/09/24 ) Pharmacy: [id number] [place] [address] [address] [facility] - [phone] [[id number]] Spine Center additional info ( NS 09/15/23 [...] day. [place] 300 qhs, [place] 25 bid. [place] 5 q8 prn #15. 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 High risk surgical procedures (intraperitoneal, intrathoracic, [...] Unspecifi ed Formulation 02/09/2016,02/04/2014 PPD Test 02/20/2014 Pfizer SARS-CoV-2 Vaccine Tr is-sucrose 12+ Yrs 08/06/2023 Pneumococcal Conjugate Vacci ne 13 Valent 02/28/2015 Pneumococcal Polysaccharide 23 Valent 10/13/2012 Quadrivalent Influenza High Dose 02/05/2021 TST,Unspecified Formulation 01/07/2019, 9 Tdap 02/28/2015 Social History Tobacco Use Types Packs/Day Years [...] Date Recorded PHQ-2 Total Score 0 11/09/2023 [facility] - Occupational [...] Mass Index 29.69 07/28/2023 9:18 AM EDT Functional Status * Is the person deaf or does he/she have serious difficulty hearing? Answer Date of Assessment Author No 11/07/2022 8:01 AM Tomi Huggins CCMA * Is the person blind or does he/she have serious difficulty seeing even when wearing glasses? Answer Date of Assessment Author No 11/07/2022 8:01 AM EDTomi José CCMA * Does this person have serious [...] No 11/07/2022 8:01 AM Tomi Huggins CCMA Mental Status * Because of a physical, mental or emotional condition, does this person have serious difficulty concentrating, remembering or making decisions? Answer Entry Date Author No 11/07/2022 8:01 AM Tomi Huggins CCMA Plan of Treatment Upcoming Encounters Date Type Department Care Team (Late st Contact Info) Description 05/16/2024 9:30 AM EST Office Visit [facility] [address] [place] [address] Gilda Francis PA [address] [place] [address] Goals Goal Patient Goal Type Associated Problems [...] UMA MICHELLE to have help getting new [place] plan by end of February 2023 General Yes Geraldine Whiteside RN Stay Tobacco Free Lifestyle No Oralia Merida CCMA Medical Devices Implanted Type Area Corporate Associate Attorney Device Identifier Shelf Expiration Date Model / Serial / Lot Stent Contour 6 X 24 #[id number] - [id number] Implanted:Qty: 1 on 01/02/2020 by Amari Wheeler MD at [facility] Stent Right: Ureter [employer]:MICROVASIVE: UROLOGY [id number] / / [id number] Head V40 Ceramic Delta Biolox 36mm/-2.5 - [id number] Implanted:Qty: 1 on 02/16/2014 by Bruce Oh MD at [facility] Right: Hip [employer]:ORTH[employer]ED [employer] 01/08/2019 6570-0-43 6 / / [id number] [id number] Femoral Accolade Ii 127 Degree Size 5 - [id number] Implanted:Qty: 1 on 02/16/2014 by Bruce Oh MD at [facility] Right: Hip [employer]:ORTH[employer] 02/07/2019 8625-0156 / / [id number] Insert Trident X 3 0 Degree 36mm D - [id number] Implanted:Qty: 1 on 02/16/2014 by Bruce Oh MD at [facility] Right: Hip K[employer]E:ORTHOPED [facility] 01/08/2019 623-00-36 D / / [id number] Screw Bone Cancellous 6.5mm X 30mm - [id number] Implanted:Qty: 1 on 02/16/2014 by Bruce Oh MD at [facility] Right: Hip [employer]:ORTHOPED [facility] 02/07/2019 [id number] -1 / / [id number] Shell Acetabular Hole Cluster Hemispherical Tritanium D 52mm - [id number] Implanted:Qty: 1 on 02/16/2014 by Bruce Oh MD at [facility] Right: Hip [employer]:ORTHOPED [facility] 11/07/2018 502-03-52 D / / [id number] Cmpnt Fem 3 Kn Lt Crcte Rtn Bead Trthln Pa - [id number] Implanted:Qty: 1 on 12/28/2018 by Bruce Oh MD at [facility] Left: Knee [employer]:ORTHOPED [facility] 10/14/2023 [id number] / / [id number] Patella Backed Metal Tritanium Asymmetric A 35 X 10 - [id number] Implanted:Qty: 1 on 12/28/2018 by Bruce Oh MD at [facility] Left: Knee K[employer]:ORTHOPED [facility] 05/18/2023 5552-L-35 0 / / [id number] Insert Bearing Tibial Cs Triathlon X 3 Sz 4-11mm - [id number] Implanted:Qty: 1 on 12/28/2018 by Bruce Oh MD at [facility] Left: Knee [employer]E:ORTHOPED [facility] 10/04/2023 [id number] / / [id number] Bsplt Tib Trthln 4 Kn Tritanium - [id number] Implanted:Qty: 1 on 12/28/2018 by Bruce Oh MD at [facility] Left: Knee K[employer]E:ORTHOPED [facility] 10/11/2023 5536-B-40 0 / / [id number] Lens Intraocular Preloaded 19.0 Diopter - [id number] Implanted:Qty: 1 on 02/28/2019 by Conor Ramirez MD at [facility] Right: Eye [employer]:SURG 11/07/2021 AU00T0.19 0 / [id number] / Lens Intraocular Preloaded 20.0 Diopter - [id number] Implanted:Qty: 1 on 03/14/2019 by Conor Ramirez MD at [facility] Left: Eye [employer]:SURG 08/08/2021 AU00T0.20 0 / [id number] / [id number] Explanted Type Area Corporate Associate Attorney Device Identifier Shelf Expiration Date Model / Serial / Lot Stent Contour 6 X 24 #[id number] - [id number] Implanted:Qty: 1 on 11/28/2019 by Amari Wheeler MD at [facility] Explanted:Qty: 1 on 01/02/2020 by Amari Wheeler MD at [facility] Stent Ureter [employer]:MICROVASIVE:U ROLOGY 02/10/2022 [id number] / / [id number] Procedures Procedure Name Priority Date/Time Associated Diagnosis Comments DX BONE DENSITY AXIAL INCLUDING VERTEBRAL FRACTURE ASSESSMENT Routine 12/19/2022 10:09 AM EDT Screening for osteoporosis Postmenopausal HCV ANTIBODY SCREEN W/ REFLEX Routine 10/13/2017 8:26 AM EDT Need for hepatitis C screening test GMED COLONOSCOPY Routine 07/10/2014 12:0 0 PM EST from Last 3 Months or Most Recently Relevant to Health Maintenance Results * DX BONE DENSITY AXIAL INCLUDING VERTEBRAL FRACTURE ASSESSMENT (12/19/2022 10:09 AM EDT) Anatomical Region Laterality Modality Dexa Scan 12/19/2022 Impressions 12/19/2022 3:56 PM EDT : Indication: The patient is a female age 65 or older who requires a bone density assessment. Study was performed on Horizon APEX 5. Bone Density: Region ?BMD ? T-score [...] Moctez[place] PA-C, CCD on 12/19/2022 12:59:00 PM. Palma Jj DO IMG DEXA ORDERABLES Final Re sult * HEPATITIS C ANTIBODY - SCREENING (10/13/2017 8:26 AM EDT) Hep C Ab Non-Reactiv e Non-Reacti ve 10/13/2017 6:45 PM EDT [facility] netomat Blood VENOUS BLOOD / Unknown Venipuncture / Unknown 10/13/2017 8:26 AM EDT 10/13/2017 8:26 AM EDT Mann Irene MD HEMATOLOGY ORDERABLES Final Re sult Performing Organization Address City/[facility]/ZIP Co de Phone Number [employer] [address] [place] [address], [place] [address] * GMED COLONOSCOPY (07/10/2014 12:00 PM EST) 07/10/2014 12:0 0 PM EST Impressions [facility] - 07/10/2014 12:20 PM EST Polyp (3 mm) in the distal sigmoid colon. (Polypectomy). Plan: Follow-up as needed This section is an excerpt of the full report. Edil Mann MD GI PROCEDURE ORDERABLES Fin al Result Performing Organization Address City/[facility] Co de Phone Number [facility] [address] [place] [address] from Last 3 Months or Most Recently Relevant to Health Maintenance Insurance [employer] MEDICARE HMO MR [employer] MEDICARE HMO MR Advance Directives For more information, please contact: [phone] * Full Code (Latest Code Status on File) Date Activated Date Inactivated Comments 03/28/2022 3:30 PM 04/01/2022 5:07 PM * Full Code Date Activated Date Inactivated Comments 12/28/2018 6:10 PM 12/31/2018 3:41 PM * Full Code Date Activated Date Inactivated Comments 02/20/2014 7:09 PM 02/25/2014 7:12 PM * Full Code Date Activated Date Inactivated Comments 02/20/2014 7:05 PM 02/20/2014 7:09 PM * Full Code Date Activated Date Inactivated Comments 02/16/2014 1:45 PM 02/20/2014 7:05 PM Care Teams Machine Loader Relationship Specialty Start Date End Date Palma Jj DO [email or web address] [place] [address] PCP - General Family Medicine 07/14/22
--- OUTSIDE RECORDS SUMMARY | 2024-03-27 14:56 | XMS_ITS | Encounter Summary ---
Author Organization [place] Address [facility] [place] [address] Care Team Providers Care Fur Liner Name Role Phone Palma Jj DO Primary Care Provider + [phone] Encounter Details Date Type Department Care Team (Late st Contact Info) Description 11/11/2023 Orders Only [facility] [address] [place] [address] Palma Jj DO [address] [place] [id number] Hypercholesterolemia Social History Tobacco Use Types Packs/Day Years [...] Date Recorded PHQ-2 Total Score 0 11/09/2023 [facility] Occupat ional Health - Occupational Stress [...] place to sleep or slept in a fpc (including now)? No 11/12/2022 Comments No Sex [...] Refills Last Filled Start Date End Date atorvastatin (LIPITOR) 20 mg Oral TabletIndications: Hypercholesterolem ia Take 1 Tablet by mouth daily for 360 days. 90 Tablet 3 11/11/2023 11/05/2024 documented in this encounter Plan of Treatment Upcoming Encounters Date Type Department Care Team (Late st Contact Info) Description 05/16/2024 9:30 AM EST Office Visit [facility] [address] [place] [phone] Gilda Francis PA [address] [place] [address] documented as of this encounter [...] maintain an ideal body weight General No rOalia Merida CCMA Will meet with UMA MICHELLE to have help getting new [place] plan by end February 2023 General Yes Geraldine Whiteside RN Stay Tobacco Free Lifestyle No Oralia Merida CCMA documented as of this encounter Visit Diagnoses Diagnosis Hypercholesterolemia Pure hypercholesterolemia documented in this encounter Discontinued Medications Medication Sig Discontinue Reason Start Date End Da te atorvastatin (LIPITOR) 10 mg Oral TabletIndications:Hyperc holesterolemia Take 1 Tablet by mouth daily for 360 days. 07/06/2023 11/11/2023 documented as of this encounter Additional Health Concerns Assessment Noted Time A fall risk assessment has been complete d for the patient 08/06/2023 8:22 AM EDT documented as of this encounter Care Teams Fur Liner Relationship Specialty Start Date End Date Palma Jj DO [address] [place] [phone] PCP - General Family Medicine 07/14/22 documented as of this encounter
--- OUTSIDE RECORDS SUMMARY | 2024-03-27 14:56 | XMS_ITS | Encounter Summary ---
Author Organization [place] [address] Care Team Providers Care Lithographic Printing Machinist Name Role Phone Palma Jj DO Primary Care Provider + [phone] Reason for Visit * Reason Comments Follow-up Back Pain Encounter Details Date Type Department Care Team (Late st Contact Info) Description 02/15/2024 8:00 AM EDT Office Visit [facility] [address] [place] [address] Gilda Francis PA [address] [place] [address] Cervicalgia (Primary Dx); Intervertebral disc disorder with radiculopathy of lumbosacral region; Failed back syndrome of lumbar spine; Chronic pain syndrome; Spondylosis of lumbosacral region without myelopathy or radiculopathy; Cervical spondylosis; Osteoporosis, unspecified osteoporosis type, unspecified pathological fracture presence; Myofascial pain; Spinal stenosis of lumbar region, unspecified whether neurogenic claudication present; Neuroforaminal stenosis of lumbar spine; Lumbar radiculopathy; Chronic pain of right knee Social History Tobacco Use Types Packs/Day Years [...] Date Recorded PHQ-2 Total Score 0 11/09/2023 [facility] - Occupational Stress [...] Taken Comments Blood Pressure - - Pulse 95 02/15/2024 7:53 AM EDT Temperature - - Respiratory Rate - - Oxygen Saturation 98% 02/15/2024 7:53 AM EDT Inhaled Oxygen Concentration - - Weight 68.9 kg (152 lb) 02/15/2024 7:53 AM EDT Height - - Body Mass Index 29.69 07/28/2023 9:18 AM EDT documented in this [...] Entry Date Author No 11/07/2022 8:01 AM EDTomi José CCMA documented in this encounter Ordered Prescriptions Prescription Sig Dispense Quantity Refills Last Filled Start Date End Date gabapentin (NEURONTIN) 300 mg Oral CapsuleIndications:O steoporosis, unspecified osteoporosis type, unspecified pathological fracture presence,Spinal stenosis of lumbar region, unspecified whether neurogenic claudication present,Neuroforamin al stenosis of lumbar spine,Lumbar radiculopathy Take 1 Capsule by mouth nightly for 30 days. 30 Capsule 2 02/15/2024 4 documented in this encounter Progress Notes * Gilda Francis PA - 02/15/2024 8:00 AM EDT Images from the original note were not included. Subjective Subjective: Patient ID: Stella Tavarez is a 78 y.o. female who presents today for Chief Complaint Patient presents with Follow-up Back Pain HPI: Stella Tavarez is a 78 y.o. female who presents for follow-up evaluation regarding their pain. Symptoms are unchanged since last visit. No interventions for pain were performed since last visit. Her neck pain remains stable with her medication. Her right knee has been bothering her more recently. States she used to get visco with [facility] and she is interested in repeating this. Notes her left knee hasbeen replaced. Pt continues taking Gabapentin which does seem to make pain tolerable. Current medications continue to provide significant functional and analgesic benefit. The patient denies side effects and there are no signs of abuse or diversion, therefore these medications are both medically appropriate and necessary. Characterization of Primary Pain: Location of Pain: Neck - bilateral Pain Ratin/10 on NRS Quality: aching and dull Temporal Profile: constant with intermittent exacerbations Referral Pattern: Pain is not referred Exacerbating Factors: increased activity, turning head, and looking up Relieving Factors: rest and medications Associated Symptoms: Patient denies any red flag symptoms such as urinary/bowel incontinence, progressive weakness in the extremities, and/or saddle anesthesia. Characterization of Secondary Pain: Location of Pain: right Knee Pain Ratin/10 on NRS Quality: aching Temporal Profile: constant with intermittent exacerbations Referral Pattern: Pain is not referred Exacerbating Factors: increased activity, activities of daily living, prolonged standing, and walking Relieving Factors: rest, medications, and injections Associated Symptoms: Patient denies any red flag symptoms such as urinary/bowel incontinence, progressive weakness in the extremities, and/or saddle anesthesia. The patient's current medication regimen partially controls their pain to the point of making theirpain more tolerable. They report >50% improvement in their ability to perform ADL's. No apparentside effects are noted with current medication regimen. and Patient denies medication related side effects. Specifically, denies over-sedation, constipation, or pruritus. Review of Systems Musculoskeletal: Positive for back pain and neck pain. All other systems reviewed and are negative. Past Medical History: Diagnosis Date Motion sickness seasick Nephrolithiasis 12/19/2019 Added automatically from request for surgery [id number] Post-operative nausea and vomiting Past Surgical History: Procedure Laterality Date BLADDER TUMOR EXCISION N/A 10/26/2019 cystoscopy, bladder biopsy and fulguration of lesions of bladder; Surgeon: Amari Wheeler MD; Location: [facility]; Service: Urology CATARACT REMOVAL Right 02/28/2019 RIGHT EYE CATARACT EXTRACTION WITH PHACOEMULSIFICATION AND INTRAOCULAR LENS; Surgeon: Conor Ramirez MD; Location: [facility]; Service: Ophthalmology CATARACT REMOVAL Left 03/14/2019 LEFT EYE CATARACT EXTRACTION WITH PHACOEMULSIFICATION AND INTRAOCULAR LENS; Surgeon: Conor Ramirez MD; Location: [facility]; Service: Ophthalmology COLONOSCOPY CYSTOSCOPY Right 11/28/2019 cystoscopy [...] date: 1989 Quit date: 1994 Years since quittin.7 Passive exposure: Never Smokeless tobacco: Never Tobacco comments: quit in 1998 Vaping Use Vaping status: Never Used Substance and Sexual Activity Alcohol use: No Drug use: No Sexual activity: Not on file Other Topics Concern Not on file Social History Narrative Not on file Social Drivers of Health Financial Resource Strain: Medium Risk [...] file Stress: No Stress Concern Present (11/07/2022) [facility] - Occupational Stress Questionnaire [...] Disp: 90 Tablet, Rfl: 2 atorvastatin (LIPITOR) 20 mg Oral Tablet, Take 1 Tablet by mouth daily for 360 days., Disp: 90 Tablet, Rfl: 3 diclofenac (VOLTAREN) 75 mg Oral Tablet, Delayed Release (E.C.), Take 1 Tablet by mouth 2 times daily for 180 days. with meals, Disp: 180 Tablet, Rfl: 1 ergocalciferol (DRISDOL) 1,250 mcg (50,000 unit) Oral Capsule, Take 1 Capsule by mouth once a week., Disp: 12 Capsule, Rfl: 3 famotidine (PEPCID) 40 mg Oral Tablet, TAKE 1 TABLET BY MOUTH 2 TIMES DAILY FOR 90 DAYS., Disp: 180Tablet, Rfl: 3 lisinopriL (PRINIVIL;ZESTRIL) 20 mg Oral Tablet tablet, Take 1 Tablet by mouth daily for 360 days.,Disp: 90 Tablet, Rfl: 3 meloxicam (MOBIC) 15 mg Oral Tablet, Take 1 Tablet by mouth daily., Disp: 90 Tablet, Rfl: 2 nortriptyline (PAMELOR) 25 mg Oral Capsule, TAKE 1 CAPSULE IN THE MORNING AND 1 CAPSULE AT DINNER, Disp: 180 Capsule, Rfl: 3 Objective Objective: Vitals: 02/15/24 0753 Pulse: 95 SpO2: 98% Weight: 152 lb (68.9 kg) Body mass index is 29.69 kg/m??. Physical Exam Vitals reviewed. Constitutional: Appearance: Normal appearance. She is normal weight. HENT: Head: Normocephalic and atraumatic. Neck: Comments: Bilateral facet pain worse with facet loading in lumbar region Pulmonary: Effort: Pulmonary effort is normal. Musculoskeletal: Cervical back: Normal range of motion. Right knee: Decreased range of motion. Tenderness present. Legs: Skin: General: Skin is warm. Neurological: General: No focal deficit present. Mental Status: She is alert and oriented to person, place, and time. Mental status is at baseline. Psychiatric: Mood and Affect: Mood normal. Behavior: Behavior normal. Thought Content: Thought content normal. Judgment: Judgment normal. Image Review: Results for orders placed [...] TEMAZEPAM , TEMAZGLUC , TRIAZOLAM , AHDTRIAZ ASSEMBLER FITTER/PRASHANTH and most recent UDS reviewed on 02/15/2024 as available. . 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 Patient reports increased activity and improved functionality with medication use and endorses no adverse reactions. No aberrant behavior or medication abuse is evident. - Prashanth reviewed and consistent with expectations - Continue Gabapentin - Consider lumbar or cervical MBBs in future - Consider TPIs for myofascial pain - Pt will reach out to [facility] for visco injection - The patient has been provided with an instructional packet in order to perform physician directedhome exercise program (HEP) at least 30 minutes per day and at least 5 times per week. Neck pain specific exercises that were provided to the patient includes: Cervical Rotation, Cervical Sidebend, Cervical Extension, Cervical Flexion, Chin Tuck, Upper Trap Stretch, Shoulder Rolls as well as Isometric exercises. - We discussed that she will continue Physical Therapy/Home Exercise Program for at least 4-6 weeksprior to re-evaluation. - Return in about 3 months (around 05/17/2024) for F/u meds. TIARRA [facility] documented in this encounter Miscellaneous Notes * Patient Instructions - Noa Campbell MA - 02/15/2024 8:00 AM EDT You may be contacted by mail or e-mail to participate in a patient satisfaction survey regarding your office visit today. We value your opinion and depend on your feedback to make improvements and provide you with the best possible experience while receiving high quality medical treatment. Your time in completing this survey is greatly appreciated. documented in this encounter Plan of Treatment Upcoming Encounters Date Type Department Care Team (Late st Contact Info) Description 05/16/2024 9:30 AM EST Office Visit [facility] [address] [place] [id number] Gilda Francis PA [address] [place] [address] documented as of this encounter Goals Goal [...] UMA MICHELLE to have help getting new [place] plan by end of February 2023 General Yes Geraldine Whiteside RN Stay Tobacco Free Lifestyle No Oralia Merida CCMA documented as of this encounter Visit Diagnoses Diagnosis Cervicalgia- Primary Intervertebral disc disorder with radiculopathy of lumbosacral region Thoracic or lumbosacral neuritis or radiculitis, unspecified Failed back syndrome of lumbar spine Postlaminectomy syndrome, lumbar region Chronic pain syndrome Spondylosis of lumbosacral region without myelopathy or radiculopathy Lumbosacral spondylosis without myelopathy Cervical spondylosis Cervical spondylosis without myelopathy Osteoporosis, unspecified osteoporosis type, unspecified pathological fracture presence Myofascial pain Mylagia and myositis, unspecified Spinal stenosis of lumbar region, unspecified whether neurogenic claudication present Neuroforaminal stenosis of lumbar spine Lumbar radiculopathy Thoracic or lumbosacral neuritis or radiculitis, unspecified Chronic pain of right knee documented in this encounter Discontinued Medications Medication Sig Discontinue Reason Start Date End Da te gabapentin (NEURONTIN) 300 mg Oral CapsuleIndications:Spinal stenosis of lumbar region, unspecified whether neurogenic claudication present,DDD (degenerative disc disease), lumbar,Osteoporosis, unspecified osteoporosis type, unspecified pathological fracture presence,Neuroforaminal stenosis of lumbar spine,Lumbar radiculopathy Take 1 Capsule by mouth nightly for 30 days. Reorder 11/11/2023 02/15/2024 documented as of this encounter Additional Health Concerns Assessment Noted Time A fall risk assessment has been complete d for the patient 08/06/2023 8:22 AM EDT documented as of this encounter Care Teams Lithographic Printing Machinist Relationship Specialty Start Date End Date [place] [address] PCP - General Family Medicine 07/14/22 documented as of this encounter
--- OUTSIDE RECORDS SUMMARY | 2024-03-27 14:56 | XMS_ITS | Encounter Summary ---
Author Organization [place] [address] Care Team Providers Care Green Promotions Specialist Name Role Phone Palma Jj DO Primary Care Provider + [phone] Reason for Visit * Reason Onset Date Comments Results 11/27/2023 Results given Encounter Details Date Type Department Care Team (Late st Contact Info) Description 11/27/2023 Telephone [facility] [address] [address] Palma Jj DO [address] [place] [phone] Results (Results given) Social History Tobacco Use Types Packs/Day Years [...] Date Recorded PHQ-2 Total Score 0 11/09/2023 [facility] Occupat ional [facility] - Occupational Stress [...] place to sleep or slept in a fdc (including now)? No 11/12/2022 Comments No Sex [...] encounter Miscellaneous Notes * Telephone Encounter - Mara Alex LPN - 12/08/2023 11:18 AM EDT Images from the original note were not included. Select the most appropriate reason for this telephone message: Patient Calling for Results Patient called for results on Lab Which Provider ordered the test? Dr. Jj Date of test: 11/08 Advised patient of: abnormal result. Patient Instructions/ Questions: n/a Medications Ordered/Pended (if yes, list medication): No Medications/Orders Needed: No Pharmacy Location Verified: No Other: Please put in the patient results note that pt is aware of the following results Palma Jj, 11/11/2023 9:48 AM EDT Cholesterol elevated, recommend increase in dose of her current cholesterol medication. I will sendthis to the pharmacy. Other labs all looked good. No other changes at this time. * Telephone Encounter - Julianna Lea MA - 11/27/2023 8:48 AM EDT Results: Laboratory Result - 11/09/23 resulted on 11/13/23. Results abnormal. Patient needs follow up appointment in 0 days with new medications. Orders placed.. Additional advice or instructions for patient: Cholesterol elevated, recommend increase in dose of her current cholesterol medication. I will send this to the pharmacy. Other labs all looked good. Noother changes at this time. Orders placed: NA Meds pended: Yes Sent to pharmacy two weeks ago documented in this encounter Plan of Treatment Upcoming Encounters Date Type Department Care Team (Late st Contact Info) Description 05/16/2024 9:30 AM EST Office Visit [facility] [address] [facility] [place] [address] Gilda Francis PA [address] [facility] [address] documented as of this encounter Goals [...] UMA MICHELLE to have help getting new [place] plan by end of February 2023 General Yes Geraldine Whiteside RN Stay Tobacco Free Lifestyle No Oralia Merida CCMA documented as of this encounter Visit Diagnoses Not on filedocumented in this encounter Additional Health Concerns Assessment Noted Time A fall risk assessment has been complete d for the patient 08/06/2023 8:22 AM EDT documented as of this encounter Care Teams Green Promotions Specialist Relationship Specialty Start Date End Date Palma Jj DO [address] [place] [address] PCP - General Family Medicine 07/14/22 documented as of this encounter
--- OUTSIDE RECORDS SUMMARY | 2024-03-27 14:56 | XMS_ITS | Encounter Summary ---
Author Organization [facility] Address [place] [address] Care Team Providers Care Computer Sciences Professor Name Role Phone Palma Jj DO Primary Care Provider + [phone] Reason for Visit * Reason Onset Date Comments Results 11/20/2023 Lab: Vit D, CBC, Lipid, BMP, NT ProBNP Encounter Details Date Type Department Care Team (Late st Contact Info) Description 11/20/2023 Telephone [facility] [address] [place] [address] Palma Jj DO [address] [place] [phone] Results (Lab: Vit D, CBC, Lipid, BMP, NT ProBNP) Social History Tobacco Use Types Packs/Day Years Used Date Smoking Tobacco: Former Cigarettes 0.5 5 1 0 - 1994 Passive Smoke Exposure: Never Smokeless Tobacco: Never Comments:quit in 1998 Alcohol Use Standard Drinks/Week Comments No 0 (1 standard drink = 0.6 oz pur e alcohol) Overall Financial Resource Strain (CARDIA) Sarae r Date Recorded How hard is it for you to pa y for the very basics like food, housing, medical care, and heating? Somewhat hard 02/27/2023 PHQ-2 Answer Date Recorded PHQ-2 Total Score 0 11/09/2023 [facility] Occupat ional Health - Occupational Stress [...] encounter Miscellaneous Notes * Telephone Encounter - Charissa Simth MA - 11/24/2023 4:40 PM EDT Images from the original note were not included. Select the most appropriate reason for this telephone message: Patient Calling for Results Patient called for results on Lab Which Provider ordered the test? Dr. Jj Date of test: 11/09/23 Advised patient of: abnormal result. Patient Instructions/ Questions: None Medications Ordered/Pended (if yes, list medication): Yes Lipitor 20 mg Medications/Orders Needed: No Pharmacy Location Verified: No Other: Please put in the patient results note that pt is aware of the following results * Telephone Encounter - Julianna Lea MA - 11/20/2023 4:11 PM EDT Results: Laboratory Result - 11/09/23 resulted on 11/13/23. Results abnormal. Patient needs follow up appointment in 0 days without . Additional advice or instructions for patient: Cholesterol elevated, recommend increase in dose of her current cholesterol medication. I will send this to the pharmacy. Other labs all looked good. Noother changes at this time. (copy and paste provider documentation from the result here) Orders placed: NA Meds pended: NA documented in this encounter Plan of Treatment Upcoming Encounters Date Type Department Care Team (Late st Contact Info) Description 05/16/2024 9:30 AM EST Office Visit [facility] [address] [place] [address] Gilda Francis PA [address] [place] [address] documented as of this encounter [...] UMA MICHELLE to have help getting new [place] plan by end of February 2023 General Yes Geraldine Whiteside RN Stay Tobacco Free Lifestyle No Oralia Merida CCMA documented as of this encounter Visit Diagnoses Not on filedocumented in this encounter Additional Health Concerns Assessment Noted Time A fall risk assessment has been complete d for the patient 08/06/2023 8:22 AM EDT documented as of this encounter Care Teams Computer Sciences Professor Relationship Specialty Start Date End Date [place] [address] PCP - General Family Medicine 07/14/22 documented as of this encounter
--- OUTSIDE RECORDS SUMMARY | 2024-03-27 14:56 | XMS_ITS | Encounter Summary ---
Author Organization [place] Address [place] [address] Care Team Providers Care Transfer Driver Name Role Phone Palma Jj DO Primary Care Provider + [phone] Reason for Referral * Consultation (Routine) - Pending Review Specialty Diagnoses / Procedures Referred By Ramona mcdaniel Referred To Contact Podiatry Diagnoses Chronic foot pain, left Osteoarthritis of left foot, unspecified osteoarthritis type Palma Jj DO [address] [place] [address] Phone: tel: fax: [facility] [place] [address] [place] [address] Phone: tel: fax: Referral ID Status Reason Start Date Expiration Date V isits Requested Visits Authorized [id number] Pending Review 08/06/2023 08/05/2024 99 99 Reason for Visit * Reason Comments Results Encounter Details Date Type Department Care Team (Late st Contact Info) Description 08/06/2023 8:40 AM EDT Office Visit [facility] [place] [facility] [place] [phone] Palma Jj DO [address] [place] [address] Primary osteoarthritis of right foot (Primary Dx); Chronic foot pain, right; COVID-19 vaccine administered; Bilateral carotid artery stenosis Social History Tobacco Use Types Packs/Day Years [...] Date Recorded PHQ-2 Total Score 0 11/07/2022 [facility] [place] of Occupat ional Health - Occupational Stress [...] place to sleep or slept in a correction (including now)? No 11/12/2022 Comments No Sex and Gender Information Value Date Recorded Sex Assigned at Not on file Legal Sex Female 5:30 PM EDT Gender Identity Not on file Sexual Orientation Not on file documented as of this encounter Last Filed Vital Signs Vital Sign Reading Time Taken Comments Blood Pressure 118/70 08/06/2023 8:19 AM EDT Pulse 62 08/06/2023 8:19 AM EDT Temperature 36.8 ??C (98.2 ??F) 08/06/2023 8:19 AM ED T Respiratory Rate 18 08/06/2023 8:19 AM EDT Oxygen Saturation 98% 08/06/2023 8:19 AM EDT Inhaled Oxygen Concentration - - Weight 68.4 kg (150 lb 12.8 oz) 08/06/2023 8:19 AM EDT Height - - Body Mass Index 29.45 07/28/2023 9:18 AM EDT documented in this [...] EDTomi José CCMA documented in this encounter Progress Notes * Palma Jj, DO - 08/06/2023 9:43 AM EDTAssociated Problem(s): Bilateral carotid artery stenosis stable * Palma Jj DO - 08/06/2023 8:40 AM EDT Assessment Diagnoses and all orders for this visit: Primary osteoarthritis of right foot Comments: XR, NSAIDs, patient referral to podiatry for foot care and possible specialized insert or orthodics Chronic foot pain, right - AMB REFERRAL TO PODIATRY COVID-19 vaccine administered - Post-i SARS-COV-2 VACCINE MAXWELL-SUCROSE 12+ YRS [id number] Bilateral carotid artery stenosis Overview: 2021: * [...] bilateral vertebral artery. Assessment & Plan: stable Palma Jj DO Family Medicine 08/06/2023 Progress Note: Vitals: 08/06/23 0819 BP: 118/70 Pulse: 62 Resp: 18 Temp: 98.2 ??F (36.8 ??C) TempSrc: Temporal SpO2: 98% Weight: 150 lb 12.8 oz (68.4 kg) Body mass index is 29.45 kg/m??. SUBJECTIVE: Chief Complaint Patient presents with Results HPI: 77-year-old female who presents for follow-up today on ultrasound. Reviewed ultrasound report with patient and the stability of the stenosis. Additionally patient brought up concern about her foot. Reviewed foot x-ray with patient and arthritis findings. Patient has concern about structural deformity of the foot and reports feeling like her foot is starting to turn inward. She would also like assistance in cutting her toenails and agreed for podiatry referral for possible evaluation of specialized orthotics and for continued footcare Review of Systems OBJECTIVE: Physical Exam Vitals reviewed. Constitutional: General: She is not in acute distress. Appearance: Normal appearance. She is not ill-appearing, toxic-appearing or diaphoretic. HENT: Head: Normocephalic and atraumatic. Cardiovascular: Rate and Rhythm: Normal rate. Pulmonary: Effort: Pulmonary effort is normal. Neurological: Mental Status: She is alert. Psychiatric: Mood and Affect: Mood normal. Behavior: Behavior normal. Comments: Mini-Mental exam performed today scored 28 out of 30 documented in this encounter Plan of Treatment Upcoming Encounters Date Type Department Care Team (Late st Contact Info) Description 05/16/2024 9:30 AM EST Office Visit [facility] [facility] [place] [phone] Gilda Francis PA [address] [place] [address] Scheduled Referrals Name Type Priority Associated Diagnoses Orde r Schedule AMB REFERRAL TO PODIATRY Outpatient Referral Routine Chronic foot pain, right Ordered: 08/06/2023 documented as of this encounter Goals Goal [...] UMA MICHELLE to have help getting new [place] plan by end of February 2023 General Yes Geraldine Whiteside RN Stay Tobacco Free Lifestyle No Oralia Merida CCMA documented as of this encounter Visit Diagnoses Diagnosis Primary osteoarthritis of right foot- Primary Chronic foot pain, right COVID-19 vaccine administered Bilateral carotid artery stenosis Occlusion and stenosis of multiple and bilateral precerebral arteries without mention of cerebral infarction documented in this encounter Orders Immunization/Injection Count Last Ordered Date First Ordered Date PFIZER SARS-COV-2 VACCINE TR IS-SUCROSE 12+ YRS [id number] 1 08/06/2023 documented in this encounter Additional Health Concerns Assessment Noted Time A fall risk assessment has been complete d for the patient 08/06/2023 8:22 AM EDT documented as of this encounter Care Teams Transfer Driver Relationship Specialty Start Date End Date Palma Jj DO [address] [place] [id number] PCP - General Family Medicine 07/14/22 documented as of this encounter
--- OUTSIDE RECORDS SUMMARY | 2024-03-27 14:56 | XMS_ITS | Encounter Summary ---
Author Organization [place] Address [address] [place] [address] Care Team Providers Care Derrick Engineer Name Role Phone Palma Jj DO Primary Care Provider + [phone] Encounter Details Date Type Department Care Team (Late st Contact Info) Description 01/14/2024 Orders Only [facility] [address] [place] [address] Palma Jj DO [address] [place] [id number] Age-related osteoporosis without current pathological fracture (Primary Dx) Social History Tobacco Use Types Packs/Day Years [...] Date Recorded PHQ-2 Total Score 0 11/09/2023 [facility] [place] of Occupat ional Health - Occupational Stress [...] place to sleep or slept in a intermediate (including now)? No 11/12/2022 Comments No Sex [...] Refills Last Filled Start Date End Date ergocalciferol (DRISDOL) 1,250 mcg (50,000 unit) Oral CapsuleIndications :Age-related osteoporosis without current pathological fracture Take 1 Capsule by mouth once a week. 12 Capsule 3 01/14/2024 documented in this encounter Plan of Treatment Upcoming Encounters Date Type Department Care Team (Late st Contact Info) Description 05/16/2024 9:30 AM EST Office Visit [facility] [address] [place] [phone] Gilda Francis PA [address] [place] [address] documented as of this encounter [...] UMA MICHELLE to have help getting new [place] plan by end February 2023 General Yes Geraldine Whiteside RN Stay Tobacco Free Lifestyle No Oralia Merida CCMA documented as of this encounter Visit Diagnoses Diagnosis Age-related osteoporosis without current pathological fracture- Primary Senile osteoporosis documented in this encounter Discontinued Medications Medication Sig Discontinue Reason Start Date End Da te Cholecalciferol, Vitamin D3, 50 mcg (2,000 unit) Oral CapsuleIndications:Vitami n D deficiency,Age related osteoporosis, unspecified pathological fracture presence Take 1 Capsule by mouth daily. Alternate therapy 07/06/2023 01/14/2024 ergocalciferol (DRISDOL) 1,250 mcg (50,000 unit) Oral Capsule Take 1 Capsule by mouth once a week. Reorder 05/25/2023 01/14/2024 documented as of this encounter Additional Health Concerns Assessment Noted Time A fall risk assessment has been complete d for the patient 08/06/2023 8:22 AM EDT documented as of this encounter Care Teams Derrick Engineer Relationship Specialty Start Date End Date Palma Jj DO [address] [place] [phone] PCP - General Family Medicine 07/14/22 documented as of this encounter
--- OUTSIDE RECORDS SUMMARY | 2024-03-27 14:56 | XMS_ITS | Encounter Summary ---
Author Organization [place] [address] Care Team Providers Care It Support Engineer Name Role Phone Palma Jj DO Primary Care Provider + [phone] Reason for Visit * Reason Comments Follow-up Back Pain low back pain Encounter Details Date Type Department Care Team (Late st Contact Info) Description 11/11/2023 9:00 AM EDT Office Visit [facility] [address] [place] [address] Gilda Francis PA [address] [place] [address] Cervicalgia (Primary Dx); Intervertebral disc [...] of lumbar spine; Lumbar radiculopathy; Myofascial pain Social History Tobacco Use Types Packs/Day [...] Date Recorded PHQ-2 Total Score 0 11/09/2023 [place] [facility] Occupat ional Health - Occupational Stress [...] place to sleep or slept in a detention (including now)? No 11/12/2022 Comments No Sex [...] Author No 11/07/2022 8:01 AM EDT Tomi Slaughter, CLAUDIA * Is the person blind or does [...] Tomi Huggins CCMA documented in this encounter Ordered Prescriptions Prescription Sig Dispense Quantity Refills Last Filled Start Date End Date gabapentin (NEURONTIN) 300 mg Oral CapsuleIndications: Spinal stenosis of lumbar region, unspecified whether neurogenic claudication present,DDD (degenerative disc disease), lumbar,Osteoporosis , unspecified osteoporosis type, unspecified pathological fracture presence,Neuroforam inal stenosis of lumbar spine,Lumbar radiculopathy Take 1 Capsule by mouth nightly for 30 days. 30 Capsule 2 11/11/2023 4 documented in this encounter Progress Notes * Gilda Francis PA - 11/11/2023 9:00 AM EDT Images from the original note were not included. Subjective Subjective: Patient ID: Stella Tavarez is a 78 y.o. female who presents today for Chief Complaint Patient presents with Follow-up Back Pain low back pain HPI: Stella Tavarez is a 78 y.o. female who presents for follow-up evaluation regarding their pain. Symptoms are unchanged since last visit. Pt did complete a cervical spine XR which shows degeneration throughout. This was reviewed with pt. Pt saw her PCP yesterday where she was ordered a DEXA scan which she will complete. Cervical surgery was recommended by Dr. Corrales but pt was told she needed better bone health prior to this. Pt is not interested in surgery at this time and wishes to continue with conservative measures for her pain. Pt is not wanting to see their office anymore and is requesting our office take over her Gabapentin prescription. She is currently taking Gabapentin 300mg at night which has been managing her pain very well. Notes her low back and her neck pain are much more tolerable with her medication. Pt is pleased with how she is currently feeling and is not interestedin injection therapy at this time. Current medications continue to provide significant functional and analgesic benefit. The patient denies side effects and there are no signs of abuse or diversion, t herefore these medications are both medically appropriate and necessary. Characterization of Primary Pain: Location of Pain: low back - right sided Pain Ratin/10 on NRS Quality: aching, throbbing, and sharp Temporal Profile: constant with intermittent exacerbations Referral Pattern: Pain radiates down the right leg Exacerbating Factors: increased activity, activities of daily living, prolonged standing, and walking Relieving Factors: rest [...] 12/19/2019 Added automatically from request for surgery [id number] Post-operative nausea and vomiting Past Surgical History: Procedure Laterality Date BLADDER TUMOR EXCISION N/A 10/26/2019 cystoscopy, bladder biopsy and fulguration of lesions of bladder; Surgeon: Amari Wheeler MD; Location: [facility]; Service: Urology CATARACT REMOVAL Right 02/28/2019 RIGHT EYE CATARACT EXTRACTION WITH PHACOEMULSIFICATION AND INTRAOCULAR LENS; Surgeon: Conor Ramirez MD; Location: [facility]; Service: Ophthalmology CATARACT REMOVAL Left 03/14/2019 LEFT EYE CATARACT EXTRACTION WITH PHACOEMULSIFICATION AND INTRAOCULAR LENS; Surgeon: Conor Ramirez MD; Location: [facility]; Service: Ophthalmology COLONOSCOPY CYSTOSCOPY Right 11/28/2019 cystoscopy right stent placement, right extracorporeal shock wave lithotripsy; Surgeon: Dinh Wheeler MD; Location: [facility]; Service: Urology HEMORRHOID SURGERY HIP ARTHROPLASTY Right 02/16/2014 RIGHT TOTAL HIP REPLACEMENT; Surgeon: Bruce Oh MD; Location: [facility]; Service: Orthopedics HYSTERECTOMY complete LITHOTRIPSY Right 11/28/2019 Surgeon: Amari Wheeler MD; Location: [facility]; Service: Urology LUMBAR DISC SURGERY 11/03/2012 Surgeon: Elza Bautista MD; Location: [facility]; Service: TOTAL KNEE ARTHROPLASTY Left 12/28/2018 left knee total replacement; Surgeon: Bruce Oh MD; Location: [facility]; Service: Orthopedics URETEROSCOPY Right 01/02/2020 [...] file Stress: No Stress Concern Present (11/07/2022) [place] of Occupational Health - Occupational Stress Questionnaire [...] mouth daily., Disp: 90 Capsule, Rfl: 2 diclofenac (VOLTAREN) 75 mg Oral Tablet, [...] FOR 90 DAYS., Disp: 180Tablet, Rfl: 3 gabapentin (NEURONTIN) 300 mg Oral Capsule, Take 1 Capsule by mouth nightly for 30 days., Disp: 30 Capsule, Rfl: 2 lisinopriL (PRINIVIL;ZESTRIL) 20 mg Oral Tablet tablet, Take 1 Tablet by mouth daily for 360 days.,Disp: 90 Tablet, Rfl: 3 meloxicam (MOBIC) 15 mg Oral Tablet, Take 1 Tablet by mouth daily., Disp: 90 Tablet, Rfl: 2 nortriptyline (PAMELOR) 25 mg Oral Capsule, Take 1 capsule in the morning and 1 capsule at dinner, Disp: 90 Capsule, Rfl: 2 Objective Objective: There were no vitals filed for this visit.There is no height or weight on file to calculate BMI. Physical Exam Vitals reviewed. Constitutional: Appearance: Normal appearance. She is normal weight. HENT: Head: Normocephalic and atraumatic. Neck: Pulmonary: Effort: Pulmonary effort is normal. Musculoskeletal: General: Swelling and tenderness present. Cervical back: Swelling, spasms and tenderness present. Decreased range of motion. Lumbar back: Swelling, spasms and tenderness present. Decreased range of motion. Back: Comments: Bilateral facet pain worse with facet loading in lumbar region Skin: General: Skin is warm. Neurological: General: [...] TEMAZEPAM , TEMAZGLUC , TRIAZOLAM , AHDTRIAZ CONVEYOR OPERATOR/PRASHANTH and most recent UDS reviewed on 11/11/2023 as available. . 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 Dispense: 30 Capsule; Refill: 2 DDD (degenerative disc disease), lumbar - gabapentin (NEURONTIN) 300 mg Oral Capsule; Take 1 Capsule by mouth nightly for 30 days. Dispense: 30 Capsule; Refill: 2 Osteoporosis, unspecified osteoporosis type, unspecified pathological fracture presence - gabapentin (NEURONTIN) 300 mg Oral Capsule; Take 1 Capsule by mouth nightly for 30 days. Dispense: 30 Capsule; Refill: 2 Neuroforaminal stenosis of lumbar spine - gabapentin (NEURONTIN) 300 mg Oral Capsule; Take 1 Capsule by mouth nightly for 30 days. Dispense: 30 Capsule; Refill: 2 Lumbar radiculopathy - gabapentin (NEURONTIN) 300 mg Oral Capsule; Take 1 Capsule by mouth nightly for 30 days. Dispense: 30 Capsule; Refill: 2 Myofascial pain Plan: - Imaging reviewed with patient at time of appointment. X-rays of the Cervical spine showed multilevel degenerative changes. - Continue medication(s) as previously prescribed as there are no new symptoms, change in location,sustained increase in pain level, or interval changes in medical condition. Patient reports increased activity and improved functionality with medication use and endorses no adverse reactions. No aberrant behavior or medication abuse is evident. - Prashanth reviewed and consistent with expectations - Consider lumbar MBBs if axial pain flares up - Can consider cervical and lumbar TPIs for myofascial pain - The patient has been provided with an instructional packet in order to perform physician directedhome exercise program (HEP) at least 30 minutes per day and at least 5 times per week. Back pain specific exercises that were provided to the patient includes: Sinlge knee to Chest, Pelvic tilt, Cat-Cow, Press-ups, Bridges, Belly Crunches, Sphinx Pose and Back Lifts. Neck pain specific exercises that were provided to the patient includes: Cervical Rotation, Cervical Sidebend, Cervical Extension, Cervical Flexion, Chin Tuck, Upper Trap Stretch, Shoulder Rolls as well as Isometric exercises. Avoid heavy lifting and high-impact workouts. Discussed minimizing excessive twisting and bending. - We discussed that she will continue Physical Therapy/Home Exercise Program for at least 4-6 weeksprior to re-evaluation. - Return in about 3 months (around 02/11/2024) for F/u meds. TIARRA Parker [facility] [place] documented in this encounter Plan of Treatment Upcoming Encounters Date Type Department Care Team (Late st Contact Info) Description 05/16/2024 9:30 AM EST Office Visit [facility] [address] [place] [address] Gilda Francis PA [address] [place] [address] documented as of this encounter [...] UMA MICHELLE to have help getting new [place] plan by end February 2023 General Yes [...] myelopathy Cervical spondylosis Cervical spondylosis without myelopathy Spinal stenosis of lumbar region, unspecified whether neurogenic claudication present DDD (degenerative disc disease), lumbar Degeneration of lumbar or lumbosacral intervertebral disc Osteoporosis, unspecified osteoporosis type, unspecified pathological fracture presence Neuroforaminal stenosis of lumbar spine Lumbar radiculopathy Thoracic or lumbosacral neuritis or radiculitis, unspecified Myofascial pain Mylagia and myositis, unspecified documented in this encounter Discontinued Medications Medication Sig Discontinue Reason Start Date End Da te gabapentin (NEURONTIN) 300 mg Oral CapsuleIndications:Spinal stenosis of lumbar region, unspecified whether neurogenic claudication present,DDD (degenerative disc disease), lumbar,Osteoporosis, unspecified osteoporosis type, unspecified pathological fracture presence,Neuroforaminal stenosis of lumbar spine,Lumbar radiculopathy Take 1 Capsule by mouth nightly. Reorder 05/25/2023 11/11/2023 documented as of this encounter Additional Health Concerns Assessment Noted Time A fall risk assessment has been complete d for the patient 08/06/2023 8:22 AM EDT documented as of this encounter Care Teams It Support Engineer Relationship Specialty Start Date End Date Palma [place] [address] PCP - General Family Medicine 07/14/22 documented as of this encounter"
--- OUTSIDE RECORDS SUMMARY | 2024-03-27 14:56 | XMS_ITS | Encounter Summary ---
Author Organization [place] [address] Care Team Providers Care Elementary Summer School Teacher Name Role Phone Palma Jj DO Primary Care Provider + [phone] Reason for Visit * Reason Onset Date Comments Medication Management 01/14/2024 Nathalie called on patient's behalf- requesting med change Encounter Details Date Type Department Care Team (Late st Contact Info) Description 01/14/2024 Telephone [facility] [address] [place] [address] Palma Jj DO [address] [place] [address] Medication Management (Nathalie called on patient's behalf- requesting med change) Social History Tobacco Use Types Packs/Day Years [...] Date Recorded PHQ-2 Total Score 0 11/09/2023 [facility] [place] of Occupat ional Health - Occupational Stress [...] encounter Miscellaneous Notes * Telephone Encounter - Palma Jj DO - 01/14/2024 12:25 PM EDT Sent in * Telephone Encounter - Ayla Quarles MA - 01/14/2024 9:27 AM EDT Please advise if this can be changed, thank you * Telephone Encounter - Theresa Mukherjee - 01/14/2024 8:36 AM EDT Select the most appropriate reason for this telephone message: Medication Management/Problem Who is calling? Pharmacy Rahul What medication(s) do you have concerns about: Cholecalciferol, Vitamin D3, 50 mcg (2,000 unit) Oral Capsule 90 Capsule 2 07/06/2023 -- Sig - Route: Take 1 Capsule by mouth daily. - Oral Prescribing provider: Dr. Jj What are your concerns/request: Pt called ins requesting they call us to see if we can change this to Vitamin D 2 (00695 units) instead? Desired outcome: Change in medication Last appointment date: 11/08 Pharmacy: [facility] [place] [address] [address] - [phone] Additional Information: please advise documented in this encounter Plan of Treatment Upcoming Encounters Date Type Department Care Team (Late st Contact Info) Description 05/16/2024 9:30 AM EST [facility] [address] [place] [address] Gilda Francis PA [address] [place] [address] documented as of this encounter Goals Goal [...] UMA MICHELLE to have help getting new [place] plan by end of February 2023 General Yes Geraldine Whiteside RN Stay Tobacco Free Lifestyle No Oralia Merida CCMA documented as of this encounter Visit Diagnoses Not on filedocumented in this encounter Additional Health Concerns Assessment Noted Time A fall risk assessment has been complete d for the patient 08/06/2023 8:22 AM EDT documented as of this encounter Care Teams Elementary [employer] Teacher Relationship Specialty Start Date End Date Palma Jj DO [address] [place] [address] PCP - General Family Medicine 07/14/22 documented as of this encounter
--- OUTSIDE RECORDS SUMMARY | 2024-03-27 14:56 | XMS_ITS | Encounter Summary ---
Author Organization [place] Address [place] [address] Care Team Providers Care Speech Pathology Teacher Name Role Phone Palma Jj DO Primary Care Provider + [phone] Reason for Visit * Reason Onset Date Comments Other 12/22/2023 Return call Encounter Details Date Type Department Care Team (Late st Contact Info) Description 12/22/2023 Telephone [facility] [address] [place] [address] Palma Jj DO [address] [place] [phone] Other (Return call) Social History Tobacco Use Types Packs/Day Years [...] Date Recorded PHQ-2 Total Score 0 11/09/2023 [facility] [place] of Occupat ional Health - Occupational Stress [...] place to sleep or slept in a prison (including now)? No 11/12/2022 Comments No Sex [...] encounter Miscellaneous Notes * Telephone Encounter - Ayla Quarles MA - 12/22/2023 8:22 AM EDT Notified patient that I did not see anything in her chart about someone from the office calling her. She stated that call was at 7:26am this morning. I told her that we don't start until [address] Jj is not here today. She then stated her phone acts up and calls people on its own and that it shows missed calls all the time from people who don't actually call her. I told her just to listen for the phone if someone were to try and call again, otherwise disregard message. * Telephone Encounter - Deepa Renee CCMA - 12/22/2023 8:10 AM EDT Select the most appropriate reason for this telephone message: Other Who is calling (name & relationship to patient if not the patient): Patient What is needed OR why are they calling: Says she is returning a call from this morning. When is this needed by: today Where does this information need to go: Dr. Jj Additional information: n/a documented in this encounter Plan of Treatment Upcoming Encounters Date Type Department Care Team (Late st Contact Info) Description 05/16/2024 9:30 AM EST Office Visit [facility] [address] [place] [address] Gilda Francis PA [address] [place] [address] documented as of this encounter [...] UMA MICHELLE to have help getting new [place] plan by end of February 2023 General Yes Geraldine Whiteside RN Stay Tobacco Free Lifestyle No Oralia Merida CCMA documented as of this encounter Visit Diagnoses Not on filedocumented in this encounter Additional Health Concerns Assessment Noted Time A fall risk assessment has been complete d for the patient 08/06/2023 8:22 AM EDT documented as of this encounter Care Teams Speech Pathology Teacher Relationship Specialty Start Date End Date Palma Jj DO [address] [place] [address] PCP - General Family Medicine 07/14/22 documented as of this encounter
--- OUTSIDE RECORDS SUMMARY | 2024-03-27 14:56 | XMS_ITS | Encounter Summary ---
Author Organization [place] [address] Care Team Providers Care Clearance Coordinator Name Role Phone Palma Jj DO Primary Care Provider + [phone] Reason for Visit * Reason Comments Medication Refill Encounter Details Date Type Department Care Team (Late st Contact Info) Description 11/07/2023 Refill [facility] [address] [place] [address] Palma Jj DO [address] [place] [id number] Medication Refill Social History Tobacco Use Types [...] Date Recorded PHQ-2 Total Score 0 11/09/2023 [facility] [place] of Occupat ional Health - Occupational Stress [...] Refills Last Filled Start Date End Date famotidine (PEPCID) 40 mg Oral TabletIndications:G ERD without esophagitis TAKE 1 TABLET BY MOUTH 2 TIMES DAILY FOR 90 DAYS. 180 Tablet 3 11/09/2023 documented in this encounter Miscellaneous Notes * Telephone Encounter - Erma Shipley CPhT - 11/09/2023 9:13 AM EDT Famotidine - Medication refill request deferred to office staff. [place] Reason: Rx has an end date of 06/30/23, unsure how to proceed documented in this encounter Plan of Treatment Upcoming Encounters Date Type Department Care Team (Late st Contact Info) Description 05/16/2024 9:30 AM EST Office Visit [facility] [address] [place] [phone] Gilda Francis PA [address] [place] [address] documented as of this encounter [...] UMA MICHELLE to have help getting new [place] plan by end of February 2023 General Yes Geraldine Whiteside RN Stay Tobacco Free Lifestyle No Oralia Merida CCMA documented as of this encounter Visit Diagnoses Diagnosis GERD without esophagitis Esophageal reflux documented in this encounter Discontinued Medications Medication Sig Discontinue Reason Start Date End Da te famotidine (PEPCID) 40 mg Oral TabletIndications:GERD without esophagitis Take 1 Tablet by mouth 2 times daily for 360 days. 07/06/2023 11/09/2023 documented as of this encounter Additional Health Concerns Assessment Noted Time A fall risk assessment has been complete d for the patient 08/06/2023 8:22 AM EDT documented as of this encounter Care Teams Clearance Coordinator Relationship Specialty Start Date End Date Palma Jj DO [employer] [place] [phone] PCP - General Family Medicine 07/14/22 documented as of this encounter
--- OUTSIDE RECORDS SUMMARY | 2024-03-27 14:56 | XMS_ITS | Encounter Summary ---
Author Organization [place] [address] Care Team Providers Care Internet Manager Name Role Phone Palma Jj DO Primary Care Provider + [phone] Encounter Details Date Type Department Care Team (Latest Contact Info) Description 08/12/2023 1:05 PM EDT - 08/12/2023 11:59 PM EDT Hospital Encounter [facility] [address] [place] [address] Cervicalgia Discharge Disposition: Home or Self Care Social History Tobacco Use Types Packs/Day Years [...] Date Recorded PHQ-2 Total Score 0 11/07/2022 [facility] [place] of Occupat ional Health - Occupational Stress [...] place to sleep or slept in a custodial (including now)? No 11/12/2022 Comments No Sex [...] Tomi Huggins CCMA documented in this encounter Medications at Time of Discharge aspirin 81 mg Oral Tablet, Delayed Release (E.C.) Take 1 Tablet by mouth every morning. 90 Tablet 2 07/06/2023 meloxicam (MOBIC) 15 mg Oral TabletIndications: Spinal stenosis of lumbar region, unspecified whether neurogenic claudication present,DDD (degenerative disc disease), lumbar,Osteoporosi s, unspecified osteoporosis type, unspecified pathological fracture presence,Neurofora jayy stenosis of lumbar spine,Lumbar pain,Right sided sciatica Take 1 Tablet by mouth daily. 90 Tablet 2 07/06/2023 atorvastatin (LIPITOR) 10 mg Oral TabletIndications: Hypercholesterolem ia Take 1 Tablet by mouth daily for 360 days. 90 Tablet 3 07/06/2023 11/11/2023 famotidine (PEPCID) 40 mg Oral TabletIndications: GERD without esophagitis Take 1 Tablet by mouth 2 times daily for 360 days. 180 Tablet 3 07/06/2023 11/09/2023 documented as of this encounter Discharge Disposition Disposition Code Departure Means Destination Home or Self Care documented in this encounter Plan of Treatment Upcoming Encounters Date Type Department Care Team (Late st Contact Info) Description 05/16/2024 9:30 AM EST Office Visit [facility] [address] [place] [address] Gilda Francis PA [address] [place] [address] documented as of this encounter Goals Goal Patient Goal Type Associated Problems Recent Progress Patient-Stated? Author Blood Pressure < 140/90 Blood Pressure 130/90(11/08 10:29 AM EDT) No Palma Jj, DO Patient will take her blood sugar once a day for a week in the morning, and report the sugars back to provider General On track(10/20/ 2023 10:50 AM EDT) Yes Geraldine Whiteside RN [...] UMA MICHELLE to have help getting new [place] plan by end of February 2023 General Yes Geraldine Whiteside RN Stay Tobacco Free Lifestyle No Oralia Merida CCMA documented as of this encounter Procedures Procedure Name Priority Date/Time Associated Diagnosis Comments XR CERVICAL SPINE AP AND LATERAL Routine 08/12/2023 1:11 PM EDT Cervicalgia documented in this encounter Results * XR CERVICAL SPINE AP AND LATERAL (08/12/2023 1:11 PM EDT) Anatomical Region Laterality Modality C-spine Radiographic Demetra ging 08/12/2023 1:11 PM EDT Impressions 08/12/2023 2:32 PM EDT Multilevel degenerative changes. Narrative 08/12/2023 2:32 PM EDT AP AND LATERAL C-SPINE, ??08/12/2023 1:11 PM CLINICAL HISTORY: ??M54.1-[id number]-10-CM COMPARISON: ??None. PROCEDURE COMMENTS: ??AP and lateral [...] LATERAL C-SPINE, 08/12/2023 1:11 PM CLINICAL HISTORY: M54.7-[id number] COMPARISON: None. PROCEDURE COMMENTS: AP and lateral [...] IMPRESSION: Multilevel degenerative changes. Clay Ness MD IMG DIAGNOSTIC IMAGING ORDERABLES Final Result documented in this encounter Visit Diagnoses Diagnosis Cervicalgia documented in this encounter Additional Health Concerns Assessment Noted Time A fall risk assessment has been complete d for the patient 08/06/2023 8:22 AM EDT documented as of this encounter Care Teams Internet Manager Relationship Specialty Start Date End Date Palma Jj DO [employer] [place] [phone] PCP - General Family Medicine 07/14/22 documented as of this encounter
--- OUTSIDE RECORDS SUMMARY | 2024-03-27 14:57 | XMS_ITS | Encounter Summary ---
Author Organization [place] Address [place] [address] Care Team Providers Care Roll Cutter Name Role Phone Palma Jj DO Primary Care Provider + [phone] Reason for Visit * Reason Onset Date Comments Results 07/07/2023 Encounter Details Date Type Department Care Team (Late st Contact Info) Description 07/07/2023 Telephone [facility] [address] [place] [address] Palma Jj DO [address] [place] [phone] Results Social History Tobacco Use Types Packs/Day Years [...] Date Recorded PHQ-2 Total Score 0 11/07/2022 [facility] [place] of Occupat ional Health - Occupational Stress [...] Telephone Encounter - Julianna Lea MA - 07/08/2023 8:52 AM EST Pt informed directly. * Telephone Encounter - Ayla Quarles MA - 07/08/2023 8:23 AM EST Please advise, thank you. * Telephone Encounter - Cheyanne Donovan - 07/07/2023 1:27 PM EST Wants to be called back. Daughter in law has additional questions regarding x-rays. Daughter in law is not on [facility] but is with [facility] when someone calls back. documented in this encounter Plan of Treatment Upcoming Encounters Date Type Department Care Team (Late st Contact Info) Description 05/16/2024 9:30 AM EST Office Visit [facility] [address] [place] [phone] Gilda Francis PA [address] [place] [address] documented as of this encounter [...] UMA MICHELLE to have help getting new [place] plan by end February 2023 General Yes Geraldine Whiteside RN Stay Tobacco Free Lifestyle No Oralia Merida CCMA documented as of this encounter Visit Diagnoses Not on filedocumented in this encounter Additional Health Concerns Assessment Noted Time A fall risk assessment has been complete d for the patient 07/28/2022 8:48 AM EDT documented as of this encounter Care Teams Roll Cutter Relationship Specialty Start Date End Date Palma Jj DO [employer] [place] [phone] PCP - General Family Medicine 07/14/22 documented as of this encounter
--- OUTSIDE RECORDS SUMMARY | 2024-03-27 14:57 | XMS_ITS | Encounter Summary ---
Author Organization [place] [address] Care Team Providers Care Sewer Digger Name Role Phone Palma Jj DO Primary Care Provider + [phone] Reason for Visit * Reason Onset Date Comments Medication Refill 05/25/2023 Encounter Details Date Type Department Care Team (Late st Contact Info) Description 05/25/2023 Refill [facility] [place] [address] [place] [address] [address] [place] [address] Medication Refill Social History Tobacco Use Types [...] Date Recorded PHQ-2 Total Score 0 11/07/2022 [facility] [place] of Occupat ional Health - Occupational Stress [...] place to sleep or slept in a snf (including now)? No 11/12/2022 Comments No Sex [...] Filled Start Date End Date atorvastatin (LIPITOR) 10 mg Oral TabletIndications: Hypercholesterolem ia Take 1 Tablet by mouth daily. 30 Tablet 05/25/2023 07/06/2023 documented in this encounter Plan of Treatment Upcoming Encounters Date Type Department Care Team (Late st Contact Info) Description 05/16/2024 9:30 AM EST Office Visit [facility] [address] [place] [phone] Gilda Francis PA [address] [place] [address] documented as of this encounter [...] UMA MICHELLE to have help getting new [place] plan by end February 2023 General Yes Geraldine Whiteside RN Stay Tobacco Free Lifestyle No Oralia Merida CCMA documented as of this encounter Visit Diagnoses Diagnosis Hypercholesterolemia Pure hypercholesterolemia documented in this encounter Discontinued Medications Medication Sig Discontinue Reason Start Date End Da te atorvastatin (LIPITOR) 10 mg Oral TabletIndications:Hyperc holesterolemia TAKE 1 TABLET BY MOUTH EVERY DAY Reorder 04/16/2023 05/25/2023 documented as of this encounter Additional Health Concerns Assessment Noted Time A fall risk assessment has been complete d for the patient 07/28/2022 8:48 AM EDT documented as of this encounter Care Teams Sewer Digger Relationship Specialty Start Date End Date Palma Jj DO [employer] [place] [phone] PCP - General Family Medicine 07/14/22 documented as of this encounter
--- OUTSIDE RECORDS SUMMARY | 2024-03-27 14:57 | XMS_ITS | Encounter Summary ---
Author [place] [address] Care Team Providers Care Shoe Stamper Name Role Phone Palma Jj DO Primary Care Provider + [phone] Encounter Details Date Type Department Care Team (Latest Contact Info) Description 07/06/2023 1:51 PM EST - 07/06/2023 11:59 PM [facility] Hospital Encounter [facility] [address] [place] [address] Acute foot pain, right Discharge Disposition: Home or Self Care Social [...] Date Recorded PHQ-2 Total Score 0 11/07/2022 [facility] [place] of Occupat ional Health - Occupational Stress [...] place to sleep or slept in a halfway (including now)? No 11/12/2022 Comments No Sex [...] Tomi Slaughter CCMA documented in this encounter Medications at [...] EST Office Visit [facility] [address] [place] [address] Gilda Francis PA [address] [place] [address] documented as of this encounter Goals Goal [...] UMA MICHELLE to have help getting new [place] plan by end February 2023 General Yes Geraldine Whiteside RN Stay Tobacco Free Lifestyle No Oralia Merida CCMA documented as of this encounter Procedures Procedure Name Priority Date/Time Associated Diagnosis Comments XR FOOT RIGHT AP LATERAL AND OBLIQUE Routine 07/06/2023 2:05 PM EST Acute foot pain, right documented in this encounter Results * XR FOOT RIGHT AP LATERAL AND [...] 2:05 PM CLINICAL HISTORY: ??M79.671-Pain in right [id number]-CM COMPARISON: ??None. PROCEDURE COMMENTS: XR FOOT RIGHT AP LATERAL AND OBLIQUE FINDINGS: There is no fracture or traumatic malalignment. 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 There is hallux bunion. 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 Procedure Note Juaquin Morel MD - 07/06/2023 XR FOOT RIGHT AP LATERAL AND OBLIQUE, 07/06/2023 2:05 PM CLINICAL HISTORY: M79.671-Pain in right [id number] COMPARISON: None. PROCEDURE COMMENTS: XR FOOT RIGHT [...] please contactthe office of the ordering clinician. us Palma Jj DO IMG DIAGNOSTIC IMAGING ORDER LILLIAN Final Result documented in this encounter Visit Diagnoses Diagnosis Acute foot pain, right documented in this encounter Additional Health Concerns Assessment Noted Time A fall risk assessment has been complete d for the patient 07/28/2022 8:48 AM EDT documented as of this encounter Care Teams Shoe Stamper Relationship Specialty Start Date End Date Palma Jj DO [employer] [address] PCP - General Family Medicine 07/14/22 documented as of this encounter
--- OUTSIDE RECORDS SUMMARY | 2024-03-27 14:57 | XMS_ITS | Encounter Summary ---
Author Organization [place] [address] Care Team Providers Care Molecular Biology Scientist Name Role Phone Palma Jj DO Primary Care Provider + [phone] Reason for Visit * Reason Onset Date Comments New Patient 05/01/2023 Encounter Details Date Type Department Care Team (Late st Contact Info) Description 05/01/[address] [address] Rahul Arriaga MA New Patient Social History Tobacco Use Types Packs/Day Years [...] Date Recorded PHQ-2 Total Score 0 11/07/2022 [facility] [place] of Occupat ional Health - Occupational Stress [...] a senior living (including now)? No 11/12/2022 Comments No Sex [...] encounter Miscellaneous Notes * Telephone Encounter - Lizbeth Rodas - 05/08/2023 12:58 PM EST Patient called to schedule a New Patient appointment. Patient was notified of the following prior to scheduling. 1. We would need records from your previous pain clinic. 2. Our physicians DO NOT prescribe pain medication during your consultation and depending on your visit with us we may not be able to prescribe any medication. 3. We are focused on interventional pain management at our office. If patient states they are NOT being prescribed pain medication, patient has been made aware that our office utilizes the state reporting system for controlled medications and if information is not consistent with what the patient has informed us, their appointment will be cancelled and/or rescheduled. Has patient been seen at any other spine/pain specialists in the past two years? no If so, where are med recs coming from? N/A Pt was prescribed Gabapentin 300MG Dylon Corrales on 03/20/23. Pt states she filled script but then read a warning label that it could effect vision and she decided to not take it and disposed of medication. * Telephone Encounter - Lizbeth Rodas - 05/01/2023 10:30 AM EST Attempted to schedule CARDIOLOGIST appt. MCM sent. documented in this encounter Plan of Treatment Upcoming Encounters Date Type Department Care Team (Late st Contact Info) Description 05/16/2024 9:30 AM EST Office Visit [facility] [address] [place] [phone] Gilda Francis PA [address] [place] [address] documented as of this encounter Goals Goal [...] UMA MICHELLE to have help getting new [place] plan by end of February 2023 General Yes Geraldine Whiteside RN Stay Tobacco Free Lifestyle No Oralia Merida CCMA documented as of this encounter Visit Diagnoses Not on filedocumented in this encounter Additional Health Concerns Assessment Noted Time A fall risk assessment has been complete d for the patient 07/28/2022 8:48 AM EDT documented as of this encounter Care Teams Molecular Biology Scientist Relationship Specialty Start Date End Date Palma Jj DO [address] [place] [address] PCP - General Family Medicine 07/14/22 documented as of this encounter
--- OUTSIDE RECORDS SUMMARY | 2024-03-27 14:57 | XMS_ITS | Encounter Summary ---
Author Organization [place] Address [facility] [email or web address] [address] Care Team Providers Care Security System Administrator Name Role Phone Palma Jj DO Primary Care Provider + [phone] Reason for Referral * EEG (Routine) - Pending Review Specialty Diagnoses / Procedures Referred By Ramona mcdaniel Referred To Contact Radiology Diagnoses Syncope and collapse Procedures EEG AWAKE AND ASLEEP Palma Jj DO [address] [place] [address] Phone: tel: fax: Referral ID Status Reason Start Date Expiration Date V isits Requested Visits Authorized [id number] Pending Review 04/06/2023 04/05/2024 1 1 Reason for Visit * EEG (Routine) - Pending Review Specialty Diagnoses / Procedures Referred By Ramona mcdaniel Referred To Contact Radiology Diagnoses Syncope and collapse Procedures EEG AWAKE AND ASLEEP Palma Jj DO [address] [place] [address] Phone: tel: fax: Referral ID Status Reason Start Date Expiration Date V isits Requested Visits Authorized [id number] Pending Review 04/06/2023 04/05/2024 1 1 Encounter Details Date Type Department Care Team (Latest Contact Info) Description 04/15/2023 9:34 AM EST - 04/15/2023 11:59 PM [facility] Hospital Encounter [facility] EEG [address] [place], [place] [address] Palma Jj, DO [address] [place] [address] Recurrent syncope Discharge Disposition: Home or Self Care Social [...] Date Recorded PHQ-2 Total Score 0 11/07/2022 [facility] [place] of Occupat ional Health - Occupational Stress [...] place to sleep or slept in a mcc (including now)? No 11/12/2022 Comments No Sex [...] Assessment Author No 11/07/2022 8:01 AM EDTomi Jsoé CCMA * Is the person blind or [...] of Assessment Author No 11/07/2022 8:01 AM oTmi Huggins CCMA documented as of this encounter Mental Status * Because of a physical, mental or emotional condition, does this person have serious difficulty concentrating, remembering or making decisions? Answer Entry Date Author No 11/07/2022 8:01 AM Tomi Huggins CCMA documented in this encounter Medications at Time of Discharge atorvastatin (LIPITOR) 10 mg Oral TabletIndications :Hypercholesterol emia Take 1 Tablet by mouth daily. 90 Tablet 12/23/2022 04/16/2023 documented as of this encounter Discharge Disposition Disposition Code Departure Means Destination Home or Self Care documented in this encounter Progress Notes * Ayla Quarles MA - 04/15/2023 10:00 AM EST Laboratory results received, patient notified by: Patient informed directly documented in this encounter Plan of Treatment Upcoming Encounters Date Type Department Care Team (Late st Contact Info) Description 05/16/2024 9:30 AM EST Office Visit [facility] [address] [place] [facility] [place] [address] Gilda Francis PA [address] [place] [address] documented as of this encounter [...] UMA MICHELLE to have help getting new [place] plan by end of February 2023 General Yes Geraldine Whiteside RN Stay Tobacco Free Lifestyle No Oralia Merida CCMA documented as of this encounter Procedures Procedure Name Priority Date/Time Associated Diagnosis Comments EEG AWAKE AND ASLEEP Routine 04/15/2023 10:09 AM EST Recurrent syncope documented in this encounter Results * EEG AWAKE AND ASLEEP (04/15/2023 10:09 [...] study is recommended. Reading MD Rachael Gold, Palma Jj DO IMG EEG ORDERABLES Final Res ult documented in this encounter Visit Diagnoses Diagnosis Recurrent syncope documented in this encounter Additional Health Concerns Assessment Noted Time A fall risk assessment has been complete d for the patient 07/28/2022 8:48 AM EDT documented as of this encounter Care Teams Security System Administrator Relationship Specialty Start Date End Date Palma Jj DO [employer] [place] [phone] PCP - General Family Medicine 07/14/22 documented as of this encounter
--- OUTSIDE RECORDS SUMMARY | 2024-03-27 14:57 | XMS_ITS | Encounter Summary ---
Author Organization [facility] Address [place] [address] Care Team Providers Care Lens Coater Name Role Phone Palma Jj DO Primary Care Provider + [phone] Reason for Referral * EEG (Routine) - Pending Review Specialty Diagnoses / Procedures Referred By Ramona mcdaniel Referred To Contact Radiology Diagnoses Syncope and collapse Procedures EEG AWAKE AND ASLEEP Palma Jj DO [address] [place] [address] Phone: tel: fax: Referral ID Status Reason Start Date Expiration Date V isits Requested Visits Authorized [id number] Pending Review 04/06/2023 04/05/2024 1 1 Reason for Visit * Reason Comments Hypertension Head feels funny Encounter Details Date Type Department Care Team (Late st Contact Info) Description 04/06/2023 10:40 AM EST Office Visit [facility] [place] [address] Palma Jj DO [address] [place] [address] Recurrent syncope (Primary Dx); Essential hypertension Social History Tobacco Use Types [...] Date Recorded PHQ-2 Total Score 0 11/07/2022 [facility] [place] of Occupat ional Health - Occupational Stress [...] place to sleep or slept in a long term (including now)? No 11/12/2022 Comments No Sex and Gender Information Value Date Recorded Sex Assigned at Not on file Legal Sex Female 5:30 PM EDT Gender Identity Not on file Sexual Orientation Not on file documented as of this encounter Last Filed Vital Signs Vital Sign Reading Time Taken Comments Blood Pressure 150/90 04/06/2023 10:51 AM EST Pulse 81 04/06/2023 10:51 AM EST Temperature 36.6 ??C (97.8 ??F) 04/06/2023 10:[address] Respiratory Rate 18 04/06/2023 10:51 AM EST Oxygen Saturation 98% 04/06/2023 10:51 AM EST Inhaled Oxygen Concentration - - Weight 74.1 kg (163 lb 6.4 oz) 04/06/2023 10:51 AM EST Height - - Body Mass Index 31.91 03/20/2023 10:10 AM EST documented in this encounter Functional Status * [...] Take 1 Tablet by mouth daily for 90 days. 30 Tablet 2 04/06/2023 06/30/2023 lisinopriL (PRINIVIL;ZESTRIL) 20 mg Oral Tablet tabletIndications: Essential hypertension Take 1 Tablet by mouth daily for 90 days. 30 Tablet 2 04/06/2023 04/06/2023 documented in this encounter Progress Notes * Palma Jj DO - 04/06/2023 12:02 PM ESTAssociated Problem(s): Essential hypertension Goal BP: <140/90 in office and <135/85 at home - not at goal Medication Management: - medication management decisions took place at today's visit (see orders) -increase lisinopril dose to 20mg * Palma Jj DO - 04/06/2023 12:01 PM ESTAssociated Problem(s): Recurrent syncope Reviewed hospital stay. Reviewed echo, CUS, and holter monitor. Does not appear the syncope is cardiovascular etiology. Some concern given the loss of bladder control that syncope could be related toseizure activity * Palma Jj DO - 04/06/2023 10:40 AM EST Assessment Diagnoses and all orders for this visit: Recurrent syncope Overview: -Multiple episodes w/o prodrome; including hospitalization for [...] 31 mmHg. CUS mild stenosis Assessment & Plan: Reviewed hospital stay. Reviewed echo, CUS, and holter monitor. Does not appear the syncope is cardiovascular etiology. Some concern given the loss of bladder control that syncope could be related toseizure activity Orders: - CBC WITH DIFF; Future - COMPREHENSIVE METABOLIC PANEL; Future - EEG AWAKE AND ASLEEP; Future - POCT EKG Essential hypertension Assessment & Plan: Goal BP: <140/90 in office and <135/85 at home - not at goal Medication Management: - medication management decisions took place at today's visit (see orders) -increase lisinopril dose to 20mg Orders: - lisinopriL (PRINIVIL;ZESTRIL) 20 mg Oral Tablet tablet; Take 1 Tablet by mouth daily for 90 days.Dispense: 30 Tablet; Refill: 2 Palma Jj DO [facility] 04/06/2023 Progress Note: Vitals: 04/06/23 1051 BP: (!) 150/90 Pulse: 81 Resp: 18 Temp: 97.8 ??F (36.6 ??C) TempSrc: Temporal SpO2: 98% Weight: 163 lb 6.4 oz (74.1 kg) Body mass index is 31.91 kg/m??. SUBJECTIVE: Chief Complaint Patient presents with Hypertension Head feels funny HPI: 77 year old female who presents with concern about syncope episode last night. Patient reports5-6 episodes of syncope this year. One of which patient was admitted to the hospital for and had a cardiac work up. She reports last night she felt different, checked her pressure and reports it was elevated around 160-180 then slumped over in her seat and when she woke up she had urinated on herself. Washed herself off and reports feeling okay afterwards. Reports urinating on herself during previous episodes aswell. Denies hitting her head. Review of Systems Neurological: Positive for syncope. All other systems reviewed and are negative. OBJECTIVE: Physical Exam Vitals reviewed. Constitutional: General: She is not in acute distress. Appearance: Normal appearance. She is not ill-appearing, toxic-appearing or diaphoretic. HENT: Head: Normocephalic and atraumatic. Eyes: Conjunctiva/sclera: Conjunctivae normal. Cardiovascular: Rate and Rhythm: Normal rate. Pulmonary: Effort: Pulmonary effort is normal. Neurological: Mental Status: She is alert. Cranial Nerves: Cranial nerves 2-12 are intact. No cranial nerve deficit, dysarthria or facial asymmetry. Motor: No weakness, tremor, abnormal muscle tone or pronator drift. Coordination: Romberg sign negative. Heel to Reynolds Test normal. Rapid alternating movements normal. * Jill Beck - 04/06/2023 10:40 AM EST Venipuncture in the right antecubital vein with 21 gauge needle, length 1 1/2 inch. documented in this encounter Miscellaneous Notes * Patient Instructions - Palma Jj DO - 04/06/2023 10:40 AM EST Please call Central [phone] to set up your EEG documented in this encounter Plan of Treatment Upcoming Encounters Date Type Department Care Team (Late st Contact Info) Description 05/16/2024 9:30 AM EST Office Visit [facility] [address] [place] [address] Gilda Francis PA [address] [place] [address] documented as of this encounter Goals Goal Patient Goal Type Associated Problems Recent Progress Patient-Stated? Author Blood Pressure < 140/90 Blood Pressure 130/90(11/08 10:29 AM EDT) No Palma Jj DO Patient will take her blood sugar once a day for a week in the morning, and report the sugars back to provider General On track(2022 10:50 AM EDT) Yes Geraldine Whitesied, UMA Pay off [facility] by Spring [...] UMA MICHELLE to have help getting new [place] plan by end of February 2023 General Yes Geraldine Whiteside RN Stay Tobacco Free Lifestyle No Oralia Merida CCMA documented as of this encounter Procedures Procedure Name Priority Date/Time Associated Diagnosis Comments CBC WITH DIFF Routine 04/06/2023 11:41 AM EST Recurrent syncope COMPREHENSIVE METABOLIC PANEL Routine 04/06/2023 11:41 AM EST Recurrent syncope POCT EKG Routine 04/06/2023 11:22 AM EST Recurrent syncope documented in this encounter Results * EEG AWAKE AND ASLEEP (04/15/2023 10:09 AM EST) Anatomical Region Laterality Modality Electroencephalo graphy Narrative 04/15/2023 12:56 PM EST REFERRING MD: Palma Jj, DO REASON FOR EE yo F with [...] is recommended. Reading MD Rachael Gold, DO us Palma Jj DO IMG EEG ORDERABLES Final Res ult * COMPREHENSIVE METABOLIC PANEL (04/06/2023 11:41 AM EST) Pathologist [facility] Sodium 141 136 - 145 mmol/L 04/06/2023 [...] 11:01 PM EST [facility] Albumin 3.9 3.2 - 4.6 gm/dL 04/06/2023 11:01 PM EST [facility] Total Protein 7.1 6.4 - 8.3 gm/dL 04/06/2023 11:01 PM EST [facility] Bili Total 0.4 0.2 - 1.3 mg/dL 04/06/2023 11:01 PM EST [facility] ALT 12 <=41 U/L 04/06/2023 11:01 PM EST [facility] AST 15 <=40 U/L 04/06/2023 11:01 PM EST [facility] Alk Phos 118 36 - 123 U/L 04/06/2023 11:01 PM EST [facility] eGFR (CKD-EPIcr 2020) 90 >=60 mL/min/1.7 3 m2 04/06/2023 11:01 PM EST [facility] Comment:Estimated GFR was ca lculated using the CKD-EPIcr (2020) equation refit without race. The equation is recommended by the National Kidney Foundation - [place] [employer] of Nephrology Task Force. Blood VENOUS BLOOD / Unknown Venipuncture / Unknown 04/06/2023 11:41 AM EST 04/06/2023 11:41 AM EST us Palma Jj DO CHEMISTRY ORDERABLES Final R esult [facility] [address] [facility], [place] [address] [facility] [address] [place] [address] * (ABNORMAL) CBC WITH DIFF (04/06/2023 11:41 AM EST) WBC 8.2 3.7 - 10.3 x10(3)/mcL 04/06/2023 3:37 PM EST [facility] RBC 4.57 3.90 - 5.20 x10(6)/mcL 04/06/2023 3:37 PM EST [facility] Hgb 13.2 11.2 - 15.7 g/dL 04/06/2023 3:37 PM EST [facility] Hct 41.7 34.0 - 45.0 % 04/06/2023 3:37 PM EST [facility] MCV 91.2 80.0 - 100.0 fL 04/06/2023 3:37 PM EST [facility] MCH 28.9 26.0 - 34.0 pg 04/06/2023 3:37 PM EST [facility] MCHC 31.7 30.7 - 35.5 g/dL 04/06/2023 3:37 PM EST [facility] RDW 14.0 <=14.9 % 04/06/2023 3:37 PM EST [facility] Platelet 396(H) 155 - 369 x10(3)/mcL 04/06/2023 3:37 PM EST [facility] MPV 9.9 8.8 - 12.5 fL 04/06/2023 3:37 PM EST [facility] Neut Percent 48.3 % 04/06/2023 3:37 PM EST [facility] Comment:Neutrophils equals s egs plus bands Imm Gran% 0.4 % 04/06/2023 3:37 PM EST [facility] Comment:Automated count of m etamyelocytes, myelocytes and promyelocytes. Lymph Percent 38.8 % 04/06/2023 3:37 PM EST [facility] [place] Percent 6.6 % 04/06/2023 3:37 PM EST [facility] Eos Percent 5.0 % 04/06/2023 3:37 PM EST [facility] Baso Percent 0.9 % 04/06/2023 3:37 PM EST [facility] Neut # 4.0 1.6 - 6.1 x10(3)/[facility] 04/06/2023 3:37 PM EST [facility] Comment:Neutrophils equals s egs plus bands IMMGRAN# 0.0 0.0 - 0.1 x10(3)/[facility] 04/06/2023 3:37 PM EST [facility] Comment:Automated count of m etamyelocytes, myelocytes and promyelocytes. An absolute IG <0.1 is reported as 0.0. Lymph # 3.2 1.2 - 3.9 x10(3)/[facility] 04/06/2023 3:37 PM EST [facility] [place] # 0.5 0.3 - 0.9 x10(3)/[facility] 04/06/2023 3:37 PM EST [facility] Eos# 0.4 0.0 - 0.5 x10(3)/mcL 04/06/2023 3:37 PM EST [facility] Baso # 0.1 0.0 - 0.1 x10(3)/[facility] 04/06/2023 3:37 PM EST [facility] Blood VENOUS BLOOD / Unknown Venipuncture / Unknown 04/06/2023 11:41 AM EST 04/06/2023 11:41 AM EST us Palma Jj DO HEMATOLOGY ORDERABLES Final Result [facility] [address] [facility] , [place] [address] * POCT EKG (04/06/2023 11:22 AM EST) 04/06/2023 11:2 2 AM EST Impressions SEP OFFICE - 04/06/2023 11:22 AM EST Sinus rhythm, possible left atrial enlargement. 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 Take 1 Capsule by mouth twice a week. Patient Reported not taking medication 01/23/2023 04/06/2023 famotidine (PEPCID) 40 mg Oral TabletIndications:GERD without esophagitis Take 1 Tablet by mouth 2 times daily for 90 days. Patient Reported not taking medication 01/28/2023 04/06/2023 gabapentin (NEURONTIN) 300 mg Oral Capsule Take 1 capsule by mouth twice a day for 7 days, then increase to 2 capsules by mouth twice a day Patient Reported not taking medication 03/20/2023 04/06/2023 loratadine-pseudoephedri ne (ALLERGY RELIEF D-24HR) 10-240 mg Oral Tablet Sustained Release 24 hrIndications:Seasonal allergic rhinitis due to pollen Take one tablet daily Patient Reported not taking medication 01/28/2023 04/06/2023 tiZANidine (ZANAFLEX) 4 mg Oral TabletIndications:Thorac ic spine pain,Vitamin D deficiency,Protrusion of intervertebral disc of lumbosacral region,Age related osteoporosis, unspecified pathological fracture presence,Acute low back pain, unspecified back pain laterality, unspecified whether sciatica present Take 1 Tablet by mouth nightly as needed. Patient Reported not taking medication 01/28/2023 04/06/2023 lisinopriL (PRINIVIL;ZESTRIL) 10 mg Oral TabletIndications:Essent ial hypertension Take 1 Tablet by mouth daily. Reorder 12/23/2022 04/06/2023 lisinopriL (PRINIVIL;ZESTRIL) 20 mg Oral Tablet tabletIndications:Essent ial hypertension Take 1 Tablet by mouth daily for 90 days. Reorder 04/06/2023 04/06/2023 documented as of this encounter Additional Health Concerns Assessment Noted Time A fall risk assessment has been complete d for the patient 07/28/2022 8:48 AM EDT documented as of this encounter Care Teams Lens Coater Relationship Specialty Start Date End Date [place] [address] PCP - General Family Medicine 07/14/22 documented as of this encounter
--- OUTSIDE RECORDS SUMMARY | 2024-03-27 14:57 | XMS_ITS | Encounter Summary ---
Author Organization [facility] Address [address] [place] [address] Care Team Providers Care Mill Roll Rewinder Name Role Phone Palma Jj DO Primary Care Provider + [phone] Reason for Visit * Reason Onset Date Comments Medication Refill 05/01/2023 Encounter Details Date Type Department Care Team (Late st Contact Info) Description 05/01/2023 Refill [facility] [address] [facility] [address] [place] [address] Miky Webb MD [address] [place] [address] Medication Refill Social History Tobacco Use Types [...] Date Recorded PHQ-2 Total Score 0 11/07/2022 [facility] [place] of Occupat ional Health - Occupational Stress [...] Refills Last Filled Start Date End Date HYDROcodone-acetami nophen (NORCO) 5-325 mg Oral TabletIndications:S kathy stenosis of lumbar region, unspecified whether neurogenic claudication present,DDD (degenerative disc disease), lumbar,Osteoporosis , unspecified osteoporosis type, unspecified pathological fracture presence,Neuroforam inal stenosis of lumbar spine,Lumbar radiculopathy Take 1 Tablet by mouth every 8 hours as needed for Acute Pain (R52). 15 Tablet 05/01/2023 4 gabapentin (NEURONTIN) 300 mg Oral CapsuleIndications: Spinal stenosis of lumbar region, unspecified whether neurogenic claudication present,DDD (degenerative disc disease), lumbar,Osteoporosis , unspecified osteoporosis type, unspecified pathological fracture presence,Neuroforam inal stenosis of lumbar spine,Lumbar radiculopathy Take 1 Capsule by mouth nightly. 30 Capsule 1 05/01/2023 4 documented in this encounter Plan of Treatment Upcoming Encounters Date Type Department Care Team (Late st Contact Info) Description 05/16/2024 9:30 AM EST Office Visit [facility] [address] [place] [address] Gilda Francis PA [address] [place] [address] documented as of this encounter Goals Goal [...] UMA MICHELLE to have help getting new [place] plan by end February 2023 General Yes Geraldine Whiteside RN Stay Tobacco Free Lifestyle No Oralia Merida CCMA documented as of this encounter Visit Diagnoses Diagnosis Spinal stenosis of lumbar region, unspecified whether neurogenic claudication present- Primary DDD (degenerative disc disease), lumbar Degeneration of lumbar or lumbosacral intervertebral disc Osteoporosis, unspecified osteoporosis type, unspecified pathological fracture presence Neuroforaminal stenosis of lumbar spine Lumbar radiculopathy Thoracic or lumbosacral neuritis or radiculitis, unspecified documented in this encounter Additional Health Concerns Assessment Noted Time A fall risk assessment has been complete d for the patient 07/28/2022 8:48 AM EDT documented as of this encounter Care Teams Mill Roll Rewinder Relationship Specialty Start Date End Date Palma Jj DO [employer] [address] PCP - General Family Medicine 07/14/22 documented as of this encounter
--- OUTSIDE RECORDS SUMMARY | 2024-03-27 14:57 | XMS_ITS | Encounter Summary ---
Author Organization [facility] Address [address] [place] [address] Care Team Providers Care Retail Sales Teammate Name Role Phone Palma Jj DO Primary Care Provider + [phone] Encounter Details Date Type Department Care Team (Late st Contact Info) Description 05/01/[address] [address] Miky Webb MD [address] [place] [address] Social History Tobacco Use Types Packs/Day Years [...] Date Recorded PHQ-2 Total Score 0 11/07/2022 [facility] [place] of Occupat ional Health - Occupational Stress [...] encounter Miscellaneous Notes * Telephone Encounter - Chante Avilez RMA - 05/01/2023 3:57 PM EST Returned call to pharmacy and verified the dosage for Gabapentin as prescribed by Dr. Webb. * Telephone Encounter - Eileen Guardado Clerical Staff - 05/01/2023 1:26 PM EST Pharmacy would like a call back to verify the dose. documented in this encounter Plan of Treatment Upcoming Encounters Date Type Department Care Team (Late st Contact Info) Description 05/16/2024 9:30 AM EST Office Visit [facility] [address] [place] [address] Gilda Francis PA [address] [place], [place] [id number] documented as of this encounter Goals Goal [...] UMA MICHELLE to have help getting new [place] plan by end of February 2023 General Yes Geraldine Whiteside RN Stay Tobacco Free Lifestyle No Oralia Merida CCMA documented as of this encounter Visit Diagnoses Not on filedocumented in this encounter Additional Health Concerns Assessment Noted Time A fall risk assessment has been complete d for the patient 07/28/2022 8:48 AM EDT documented as of this encounter Care Teams Retail Sales Teammate Relationship Specialty Start Date End Date Palma Jj [place] [address] PCP - General Family Medicine 07/14/22 documented as of this encounter
--- OUTSIDE RECORDS SUMMARY | 2024-03-27 14:57 | XMS_ITS | Encounter Summary ---
Author Organization [facility] Address [facility] [place] [address] Care Team Providers Care Crystal Grower Name Role Phone Palma Jj DO Primary Care Provider + [phone] Reason for Referral * Vascular Imaging (Routine) - Pending Review Specialty Diagnoses / Procedures Referred By Contac t Referred To Contact Radiology Diagnoses PVD (peripheral vascular disease) (HCC) Bilateral carotid artery stenosis Procedures [facility] CAROTID DUPLEX BILATERAL Palma Jj DO [address] [place] [address] Phone: tel: fax: Referral ID Status Reason Start Date Expiration Date V isits Requested Visits Authorized [id number] Pending Review 07/15/2023 07/14/2025 1 1 Reason for Visit * Vascular Imaging (Routine) - Pending Review Specialty Diagnoses / Procedures Referred By Ramona mcdaniel Referred To Contact Radiology Diagnoses PVD (peripheral vascular disease) (HCC) Bilateral carotid artery stenosis Procedures [facility] CAROTID DUPLEX BILATERAL Palma Jj DO [address] [place] [address] Phone: tel: fax: Referral ID Status Reason Start Date Expiration Date V isits Requested Visits Authorized [id number] Pending Review 07/15/2023 07/14/2025 1 1 Encounter Details Date Type Department Care Team (Latest Contact Info) Description 07/23/2023 10:00 AM EDT - 07/23/2023 11:59 PM EDT Hospital Encounter [facility] [address] [place] [address] Palma Jj, DO [address] [place] [address] PVD (peripheral vascular disease) (HCC); Bilateral carotid artery stenosis Discharge Disposition: Home or Self Care Social [...] Date Recorded PHQ-2 Total Score 0 11/07/2022 [facility] [place] of Occupat ional Health - Occupational Stress [...] EST Office Visit [facility] [address] [place] [id number] Gilda Francis PA [address] [place] [address] documented as of this encounter [...] UMA MICHELLE to have help getting new [place] plan by end of February 2023 General Yes Geraldine Whiteside RN Stay Tobacco Free Lifestyle No Oralia Merida CCMA documented as of this encounter Procedures Procedure Name Priority Date/Time Associated Diagnosis Comments [facility] CAROTID DUPLEX BILATERAL Routine 07/23/2023 10:47 AM EDT PVD (peripheral vascular disease) (HCC) Bilateral carotid artery stenosis documented in this encounter Results * [facility] CAROTID DUPLEX BILATERAL (07/23/2023 10:47 AM EDT) Anatomical Region Laterality Modality Vascular, Head, Neck [...] flow visualized in the bilateral vertebral artery. us Palma Jj DO IMG VASCULAR ORDERABLES Karen keon Result documented in this encounter Visit Diagnoses Diagnosis PVD (peripheral vascular disease) (HCC) Peripheral vascular disease, unspecified Bilateral carotid artery stenosis Occlusion and stenosis of multiple and bilateral precerebral arteries without mention of cerebral infarction documented in this encounter Additional Health Concerns Assessment Noted Time A fall risk assessment has been complete d for the patient 07/28/2022 8:48 AM EDT documented as of this encounter Care Teams Crystal Grower Relationship Specialty Start Date End Date Palma Jj DO [address] [place] [id number] PCP - General Family Medicine 07/14/22 documented as of this encounter
--- OUTSIDE RECORDS SUMMARY | 2024-03-27 14:57 | XMS_ITS | Encounter Summary ---
Author Organization [place] Address [facility] [employer] [place] [address] Care Team Providers Care Manager Etl Name Role Phone Palma Jj DO Primary Care Provider + [phone] Reason for Visit * Reason Onset Date Comments Results 07/07/2023 Results given Encounter Details Date Type Department Care Team (Late st Contact Info) Description 07/07/2023 Telephone [facility] [address] [place] [address] Palma Jj DO [address] [place] [id number] Results (Results given) Social History Tobacco Use [...] Date Recorded PHQ-2 Total Score 0 11/07/2022 [facility] [place] of Occupat ional Health - Occupational Stress [...] to sleep or slept in a senior care (including now)? No 11/12/2022 Comments No Sex [...] encounter Miscellaneous Notes * Telephone Encounter - Brittany Slaughter CCMA - 07/07/2023 2:07 PM EST noted * Telephone Encounter - Mara Alex LPN - 07/07/2023 1:28 PM EST Images from the original note were not included. Select the most appropriate reason for this telephone message: Patient Calling for Results Patient called for results on Imaging Which Provider ordered the test? Dr. Jj Date of test: 07/06 Advised patient of: normal result. Patient Instructions/ Questions: Talked to patient about results and her daughter chrissy Walker (not on [facility]) got on the phone and wanted more info and had more questions about the results. She then states that patient's foot is black and blue and [facility]. Medications Ordered/Pended (if yes, list medication): No Medications/Orders Needed: No Pharmacy Location Verified: No Other: Please put in the patient results note that pt is aware of the following results Palma Jj DO 07/06/2023 4:20 PM EST No acute findings on the xray. Chronic degenerative changes with osteoarthritis. No fracture. No changes to plan that was discussed with patient in office today. Palma Jj DO Family Medicine 07/06/2023 documented in this encounter Plan of Treatment Upcoming Encounters Date Type Department Care Team (Late st Contact Info) Description 05/16/2024 9:30 AM EST Office Visit [facility] [address] [facility] [address] Gilda Francis PA [address] [facility] [place] [address] documented as of this encounter Goals [...] UMA MICHELLE to have help getting new [place] plan by end of February 2023 General Yes Geraldine Whiteside RN Stay Tobacco Free Lifestyle No Oralia Merida CCMA documented as of this encounter Visit Diagnoses Not on filedocumented in this encounter Additional Health Concerns Assessment Noted Time A fall risk assessment has been complete d for the patient 07/28/2022 8:48 AM EDT documented as of this encounter Care Teams Manager Etl Relationship Specialty Start Date End Date Palma Jj DO [address] [place] [address] PCP - General Family Medicine 07/14/22 documented as of this encounter
--- OUTSIDE RECORDS SUMMARY | 2024-03-27 14:57 | XMS_ITS | Encounter Summary ---
Author Organization [place] Address [place] [address] Care Team Providers Care Waterworks Chief Engineer Name Role Phone Palma Jj DO Primary Care Provider + [phone] Reason for Visit * Reason Onset Date Comments Appointment Needed 07/06/2023 Hurt foot x 1 day ago and cannot put weight on it or walk on it Encounter Details Date Type Department Care Team (Late st Contact Info) Description 07/06/2023 Telephone [facility] [address] [place] [address] Palma Jj, DO [address] [place], [place] [id number] Appointment Needed (Hurt foot x 1 day ago and cannot put weight on it or walk on it) Social History Tobacco Use Types Packs/Day Years Used Date Smoking Tobacco: Former Cigarettes 0.5 5 1 0 - 1994 Passive Smoke Exposure: Never Smokeless Tobacco: Never Comments:quit in 1998 Alcohol Use Standard Drinks/Week Comments No 0 (1 standard drink = 0.6 oz pur e alcohol) Overall Financial Resource Strain (CARDIA) Daylin r Date Recorded How hard is it for you to pa y for the very basics like food, housing, medical care, and heating? Somewhat hard 02/27/2023 PHQ-2 Answer Date Recorded PHQ-2 Total Score 0 11/07/2022 [facility] [place] of Occupat ional Health - Occupational [...] place to sleep or slept in a alf (including now)? No 11/12/2022 Comments No Sex [...] Assessment Author No 11/07/2022 8:01 AM KUSH Sukhjinder Tomi CLAUDIA knutson documented as of this encounter Mental Status * Because of a physical, mental or emotional condition, does this person have serious difficulty concentrating, remembering or making decisions? Answer Entry Date Author No 11/07/2022 8:01 AM KUSH Sukhjinder Tomi CLAUDIA knutson documented in this encounter Miscellaneous Notes * Telephone Encounter - Ayla Quarles MA - 07/06/2023 11:04 AM EST Patient will be coming in around 1pm for appointment per Dr. Jj and Julianna * Telephone Encounter - Theresa Mukherjee - 07/06/2023 10:59 AM EST Select the most appropriate reason for this telephone message: Patient Returning Call Reason for call: Patient returned missed call about trying to get worked in today Information relayed to patient: Advised we'll have office call her back to schedule- Call center double checked and nothing is available still Patient has additional questions: Yes, f/u Further follow-up needed? yes Additional Information: Please advise * Telephone Encounter - Ayla Quarles MA - 07/06/2023 9:53 AM EST Can you all squeeze her in today, or offer another day? * Telephone Encounter - Stefania Alcantar, Clerical Staff - 07/06/2023 9:39 AM EST Select the most appropriate reason for this telephone message: Appointment Needed Appointment Requested By: Patient Provider Preference: Any Available Type of Appt Needed: Acute Detailed Reason for Appt: Hurt foot x 1 day ago and cannot put weight on it or walk on it Requested Timeframe: Today Reason Scheduling Assistance is Needed: -no appts available with provider preference in time frame needed Additional Notes: please advise documented in this encounter Plan of Treatment Upcoming Encounters Date Type Department Care Team (Late st Contact Info) Description 05/16/2024 9:30 AM EST Office Visit [facility] [address] [place] [address] Gilda Francis PA [address] [place] [address] documented as of this encounter [...] UMA MICHELLE to have help getting new [place] plan by end February 2023 General Yes Geraldine Whiteside RN Stay Tobacco Free Lifestyle No Oralia Merida CCMA documented as of this encounter Visit Diagnoses Not on filedocumented in this encounter Additional Health Concerns Assessment Noted Time A fall risk assessment has been complete d for the patient 07/28/2022 8:48 AM EDT documented as of this encounter Care Teams Waterworks Chief Engineer Relationship Specialty Start Date End Date Palma Jj DO [email or web address] [place] [address] PCP - General Family Medicine 07/14/22 documented as of this encounter
--- OUTSIDE RECORDS SUMMARY | 2024-03-27 14:57 | XMS_ITS | Encounter Summary ---
Author Organization [facility] Address [address] [place] [address] Care Team Providers Care Analysis Lead Name Role Phone Parviz Palma Edenilson TREJO Primary Care Provider + [phone] Reason for Visit * Reason Comments Follow-up Bone Health Program Encounter Details Date Type Department Care Team (Latest Contact Info) Description 05/01/2023 10:45 AM EST Office Visit [facility] [address] [facility] [address] [place] [address] Miky Webb MD [address] [place] [address] Spinal stenosis of lumbar region, unspecified whether neurogenic claudication present (Primary Dx); DDD (degenerative disc disease), lumbar; Osteoporosis, unspecified osteoporosis type, unspecified pathological fracture presence; Neuroforaminal stenosis of lumbar spine; Lumbar pain; Right sided sciatica; L5 S1 Protrusion of intervertebral disc of lumbosacral region; Vitamin D deficiency; Sciatica of right side Social History Tobacco Use Types Packs/Day Years [...] Date Recorded PHQ-2 Total Score 0 11/07/2022 [facility] of Occupat ional Health - Occupational Stress [...] - Inhaled Oxygen Concentration - - Weight 73.9 kg (163 lb) 05/01/2023 10:48 AM EST Height 152.4 cm (5') 05/01/2023 10:48 AM EST Body Mass Index 31.83 05/01/2023 10:48 AM EST documented in this encounter Functional Status * Is the person deaf or does he/she have serious difficulty hearing? Answer Date of Assessment Author No 11/07/2022 8:01 AM Tomi Huggins deysiroxanne, CLAUDIA * Is the person blind or does he/she have serious difficulty seeing even when wearing glasses? Answer Date of Assessment Author No 11/07/2022 8:01 AM Tomi Huggins, CLAUDIA * Does this person have serious difficulty walking or climbing stairs? Answer Date of Assessment Author No 11/07/2022 8:01 AM Tomi Huggins deysiroxanne CLAUDIA * Does this person have difficulty dressing or bathing? Answer Date of Assessment Author No 11/07/2022 8:01 AM Tomi Huggins, CLAUDIA * Because of a physical, mental or emotional condition, does this person have difficulty doing errands alone such as visiting a doctor's office or shopping? Answer Date of Assessment Author No 11/07/2022 8:01 AM Tomi Huggins CLAUDIA documented as of this encounter Mental Status * Because of a physical, mental or emotional condition, does this person have serious difficulty concentrating, remembering or making decisions? Answer Entry Date Author No 11/07/2022 8:01 AM Tomi Huggins CLAUDIA documented in this encounter Ordered Prescriptions Prescription [...] the morning and 1 capsule at dinner 30 Capsule 05/01/2023 4 meloxicam (MOBIC) 15 mg Oral TabletIndications: Spinal stenosis of lumbar region, unspecified whether neurogenic claudication present,DDD (degenerative disc disease), lumbar,Osteoporosi s, unspecified osteoporosis type, unspecified pathological fracture presence,Neurofora jayy stenosis of lumbar spine,Lumbar pain,Right sided sciatica Take 1 Tablet by mouth daily. 30 Tablet 05/01/2023 4 documented in this encounter Progress Notes * Miky Webb MD - 05/01/2023 10:45 AM EST Miky Webb MD [facility] [phone] Patient is a 77 y.o. year old returns for bone health assessment. L5S1 protrusion recommended LESI.Denies new injury. Dexa scan: 12/19/2022 Previous Osteoporosis medications: Review of Systems All other systems reviewed and are negative. All systems reviewed and negative. Vitals: Height: 5' (152.4 cm) Weight: 163 lb (73.9 kg) General Exam: Pt is alert and oriented x 3 and in no acute distress. Gait is ok. Mood and affect are appropriate. HEENT Normocephalic. Chest: Clear to auscultation Cardiovascular: Regular rate and rhythm No murmur Extremities: No varicosities No edema Neurologic: Normal sensation light touch. DTR Symmetric Yes Musculoskeletal: Posture Good/Poor: good Thoracic Normal Curve Yes MMT Lower extremity symmetric Neck ROM is Normal Assessment & Plan: Diagnoses and all orders for this visit: Spinal stenosis of lumbar region, unspecified whether neurogenic claudication present - meloxicam (MOBIC) 15 mg Oral Tablet; Take 1 Tablet by mouth daily. Dispense: 30 Tablet; Refill: 0 - nortriptyline (PAMELOR) 25 mg Oral Capsule; Take 1 capsule in the morning and 1 capsule at dinnerDispense: 30 Capsule; Refill: 0 DDD (degenerative disc disease), lumbar - meloxicam (MOBIC) 15 mg Oral Tablet; Take 1 Tablet by mouth daily. Dispense: 30 Tablet; Refill: 0 - nortriptyline (PAMELOR) 25 mg Oral Capsule; Take 1 capsule in the morning and 1 capsule at dinnerDispense: 30 Capsule; Refill: 0 Osteoporosis, unspecified osteoporosis type, unspecified pathological fracture presence - meloxicam (MOBIC) 15 mg Oral Tablet; Take 1 Tablet by mouth daily. Dispense: 30 Tablet; Refill: 0 - nortriptyline (PAMELOR) 25 mg Oral Capsule; Take 1 capsule in the morning and 1 capsule at dinnerDispense: 30 Capsule; Refill: 0 Neuroforaminal stenosis of lumbar spine - meloxicam (MOBIC) 15 mg Oral Tablet; Take 1 Tablet by mouth daily. Dispense: 30 Tablet; Refill: 0 - nortriptyline (PAMELOR) 25 mg Oral Capsule; Take 1 capsule in the morning and 1 capsule at dinnerDispense: 30 Capsule; Refill: 0 Lumbar pain - meloxicam (MOBIC) 15 mg Oral Tablet; Take 1 Tablet by mouth daily. Dispense: 30 Tablet; Refill: 0 - nortriptyline (PAMELOR) 25 mg Oral Capsule; Take 1 capsule in the morning and 1 capsule at dinnerDispense: 30 Capsule; Refill: 0 Right sided sciatica - meloxicam (MOBIC) 15 mg Oral Tablet; Take 1 Tablet by mouth daily. Dispense: 30 Tablet; Refill: 0 - nortriptyline (PAMELOR) 25 mg Oral Capsule; Take 1 capsule in the morning and 1 capsule at dinnerDispense: 30 Capsule; Refill: 0 L5 S1 Protrusion of intervertebral disc of lumbosacral region Vitamin D deficiency Sciatica of right side Bone health assessment completed today. Recommend prolia , Vitamin D 5k qd, dietary calcium 1200 a day. Weight bearing exercise 25 minutes a day. Fall prevention as discussed. Luba 300 qhs, Pamelor 25 bid. [place] 5 q8 prn #15. I covered risks, benefits, alternative treatment options and rationale for the problem. The anatomical and physiological reference tool marker in the clinic room was utilized as a resource with the patient during this visit. The patient had the opportunity to ask questions, allof which were answered in turn. The patient expressed understanding and the desire to proceed. Remain active as tolerated advance HEP. OV 2 weeks with lumbar Xray Miky Webb MD [facility] [phone] Parts of this note may have been created by a chart review, combined by taking my own patient history. The patient was physically seen and examined by myself, including a personal review of images, tests, and formation of the impression and plan. In addition, this note may been dictated utilizing voice recognition software. Unfortunately this leads to occasional typographical errors. I apologize in advance if the situation occurs. If questions occur please do not hesitate to call our office. The patient was advised to call with any issues or concerns in the future. documented in this encounter Plan of Treatment Upcoming Encounters Date Type Department Care Team (Late st Contact Info) Description 05/16/2024 9:30 AM EST Office Visit [facility] [address] [facility] [id number] Gilda Francis PA [address] [facility] [address] documented as of this encounter Goals Goal [...] UMA MICHELLE to have help getting new [place] plan by end of February 2023 General [...] Lumbar pain Lumbago Right sided sciatica Sciatica L5 S1 Protrusion of intervertebral disc of lumbosacral region Vitamin D deficiency Unspecified vitamin D deficiency Sciatica of right side Sciatica documented in this encounter Additional Health Concerns Assessment Noted Time A fall risk assessment has been complete d for the patient 07/28/2022 8:48 AM EDT documented as of this encounter Care Teams Analysis Lead Relationship Specialty Start Date End Date Palma Jj DO [facility] [place] [id number] PCP - General Family Medicine 07/14/22 documented as of this encounter
--- OUTSIDE RECORDS SUMMARY | 2024-03-27 14:57 | XMS_ITS | Encounter Summary ---
Author Organization [place] Address [facility] [place] [address] Care Team Providers Care Steam Pipe Fitter Name Role Phone Palma Jj DO Primary Care Provider + [phone] Reason for Referral * Consultation (Routine) - Canceled Specialty Diagnoses / Procedures Referred By Contac t Referred To Contact Diagnoses Age-related osteoporosis without current pathological fracture Palma Jj DO [address] [place] [address] Phone: tel: fax: Miky Webb MD [address] [place] [address] Phone: tel: fax: Referral ID Status Reason Start Date Expiration Date V isits Requested Visits Authorized [id number] Canceled 04/10/2023 04/09/2024 99 99 Comments Osteoporosis Encounter Details Date Type Department Care Team (Late st Contact Info) Description 04/10/2023 Orders Only [facility] [email or web address] [address] Palma Jj DO [address] [email or web address] [address] Age-related osteoporosis without current pathological fracture (Primary [...] Date Recorded PHQ-2 Total Score 0 11/07/2022 [facility] [place] of Occupat ional Health - Occupational [...] José CCMA * Does this person have difficulty dressing or bathing? Answer Date of Assessment Author No 11/07/2022 8:01 AM EDTomi José CCMA * Because of a physical, mental [...] Tomi Huggins CCMA documented in this encounter Plan of Treatment Upcoming Encounters Date Type Department Care Team (Late st Contact Info) Description 05/16/2024 9:30 AM EST Office Visit [facility] [address] [place] [phone] Gilda Francis PA [address] [place] [address] Scheduled Referrals Name Type Priority Associated Diagnoses Orde r Schedule AMB REFERRAL TO ORTHOPEDIC SURGERY Outpatient Referral Routine Age-related osteoporosis without current pathological fracture Ordered: 04/10/2023 documented as of this encounter Goals Goal [...] UMA MICHELLE to have help getting new [place] plan by end February 2023 General Yes Geraldine Whiteside RN Stay Tobacco Free Lifestyle No Oralia Merida CCMA documented as of this encounter Visit Diagnoses Diagnosis Age-related osteoporosis without current pathological fracture- Primary Senile osteoporosis documented in this encounter Additional Health Concerns Assessment Noted Time A fall risk assessment has been complete d for the patient 07/28/2022 8:48 AM EDT documented as of this encounter Care Teams Steam Pipe Fitter Relationship Specialty Start Date End Date Palma Jj DO [address] [place] [id number] PCP - General Family Medicine 07/14/22 documented as of this encounter
--- OUTSIDE RECORDS SUMMARY | 2024-03-27 14:57 | XMS_ITS | Encounter Summary ---
Author Organization [place] Address [facility] [place] [address] Care Team Providers Care Pediatric Physician Name Role Phone Palma Jj DO Primary Care Provider + [phone] Reason for Referral * Vascular Imaging (Routine) - Pending Review Specialty Diagnoses / Procedures Referred By Ramona mcdaniel Referred To Contact Radiology Diagnoses PVD (peripheral vascular disease) (HCC) Bilateral carotid artery stenosis Procedures [place] US CAROTID DUPLEX BILATERAL Palma Jj DO [address] [address] Phone: tel: fax: Referral ID Status Reason Start Date Expiration Date V isits Requested Visits Authorized [id number] Pending Review 07/15/2023 07/14/2025 1 1 Reason for Visit * Reason Comments Follow-up Went to [facility]- Still w as swollen and black and blue- treated for cellulitis and said rheumatoid arthritis Encounter Details Date Type Department Care Team (Late st Contact Info) Description 07/15/2023 10:40 AM EST Office Visit [facility] [place] [address] [phone] Palma Jj DO [address] [address] Cellulitis of right foot (Primary Dx); Exudative age-related macular degeneration of left eye, unspecified stage (HCC); Chronic diastolic (congestive) heart failure (HCC); PVD (peripheral vascular disease) (HCC); Bilateral carotid artery stenosis Social History Tobacco [...] Date Recorded PHQ-2 Total Score 0 11/07/2022 [facility] [place] of Occupat ional Health - Occupational Stress [...] Sign Reading Time Taken Comments Blood Pressure 116/70 07/15/2023 10:14 AM EST Pulse 100 07/15/2023 10:14 AM EST Temperature 36.3 ??C (97.3 ??F) 07/15/2023 10:[address] Respiratory Rate 18 07/15/2023 10:14 AM EST Oxygen Saturation 100% 07/15/2023 10:14 AM EST Inhaled Oxygen Concentration - - Weight 69.9 kg (154 lb) 07/15/2023 10:14 AM EST Height - - Body Mass Index 30.08 06/01/2023 8:03 AM EST documented in this encounter Functional [...] Tomi Huggins CCMA documented in this encounter Patient Instructions * Attachments The following attachments cannot be sent through Care Everywhere. * Dementia (including Alzheimer disease) ([place]ogolese) * Evaluating memory and thinking problems (Togolese) * Mild cognitive impairment (Togolese) documented in this encounter Progress Notes * Palma Jj DO - 07/15/2023 10:40 AM EST Assessment Diagnoses and all orders for this visit: Cellulitis of right foot Comments: follow up from ED. appears to have resolved. Exudative age-related macular degeneration of left eye, unspecified stage (HCC) (Chronic) Overview: Follows with eyeglass maker Assessment & Plan: Recommend continue follow up with ophthalmology Chronic diastolic (congestive) heart failure (HCC) (Chronic) [...] symptomatic, consider addition of SGLT-2 and spironolactone Orders: - NT PROBNP; Future PVD (peripheral vascular disease) (HCC) (Chronic) Comments: carotid artery stenosis. vascular US of bilateral LE normal Orders: - [place] US CAROTID DUPLEX BILATERAL; Future Bilateral carotid artery stenosis Overview: * The right internal carotid artery demonstrates high end 1-39% stenosis. * The left internal carotid artery demonstrates 1-39% mild stenosis. 2021 Assessment & Plan: Repeat carotid US to monitor for progression Orders: - [facility] US CAROTID DUPLEX BILATERAL; Future Palma Jj DO Family Medicine 07/15/2023 Progress Note: Vitals: 07/15/23 1014 BP: 116/70 Pulse: 100 Resp: 18 Temp: 97.3 ??F (36.3 ??C) TempSrc: Temporal SpO2: 100% Weight: 154 lb (69.9 kg) Body mass index is 30.08 kg/m??. SUBJECTIVE: Chief Complaint Patient presents with Follow-up Went to [facility]- Still was swollen and black and blue- treated for cellulitis and said rheumatoid arthritis HPI: 77 year old female who presents for ER follow up for possible cellulitis. Patient is unclear about the exact diagnosis or medications that were given. She reports she thinks that she was told that she has rheumatoid arthritis and a possible infection of her foot. She reports she was given several medications to which she thinks was an antibiotic. She reports that she completed the medications. Also states she was given a boot to wear. Unclear from patient report exactly what she was told and given. Will follow-up with records from [facility] and reach out to patient after this is clarified. Discussed with her several chronic conditions and concerns. Recommended she follow-up with a carotid ultrasound. She does plan to follow-up with ophthalmology next month. Family brought up concerns about memory for patient. Reports that patient gets very irritated when they bring this up to her Review of Systems Constitutional: Negative for fever. Musculoskeletal: Negative for gait problem and joint swelling. Psychiatric/Behavioral: Positive for behavioral problems. All other systems reviewed and are negative. OBJECTIVE: Physical Exam Vitals reviewed. Constitutional: General: She is not in acute distress. Appearance: Normal appearance. She is not ill-appearing, toxic-appearing or diaphoretic. HENT: Head: Normocephalic and atraumatic. Cardiovascular: Rate and Rhythm: Normal rate. Pulmonary: Effort: Pulmonary effort is normal. Musculoskeletal: Right foot: Normal range of motion. Feet: Right foot: Skin integrity: No ulcer, blister, skin breakdown, erythema or warmth. Comments: No tenderness of right foot Neurological: Mental Status: She is alert. Psychiatric: Mood and Affect: Affect is angry. Speech: Speech normal. Behavior: Behavior is agitated. Behavior is cooperative. * Palma Jj DO - 07/15/2023 10:25 AM ESTAssociated Problem(s): Chronic diastolic (congestive) heart failure (HCC) Will evaluate further with BNP If elevated BNP >300 and symptomatic, consider addition of SGLT-2 and spironolactone * Palma Jj DO - 07/15/2023 7:52 AM ESTAssociated Problem(s): Bilateral carotid artery stenosis Repeat carotid US to monitor for progression * Palma Jj DO - 07/15/2023 7:52 AM ESTAssociated Problem(s): PVD (peripheral vascular disease) ([facility]) (Deleted) Carotid artery stenosis Continue to monitor for progression Continue risk reduction * Palma Jj DO - 07/15/2023 7:46 AM ESTAssociated Problem(s): Exudative age-related macular degeneration of left eye ([facility]) Recommend continue follow up with ophthalmology documented in this encounter Miscellaneous Notes * Patient Instructions - Palma Jj DO - 07/15/2023 10:40 AM EST Please call Central [phone] to set up your imaging documented in this encounter Plan of Treatment Upcoming Encounters Date Type Department Care Team (Late st Contact Info) Description 05/16/2024 9:30 AM EST Office Visit [facility] [address] [place] [address] Gilda Francis PA [address] [place] [address] documented as of this encounter [...] UMA MICHELLE to have help getting new [place] plan by end of February 2023 General Yes Geraldine Whiteside RN Stay Tobacco Free Lifestyle No Oralia Merida CCMA documented as of this encounter Results * NT PROBNP (11/09/2023 11:21 AM EDT) NT Pro-BNP 102 <=624 pg/mL 11/09/2023 3:27 PM EDT PREFERRED [employer] Blood VENOUS BLOOD / Unknown Venipuncture / Unknown 11/09/2023 11:21 AM EDT 11/09/2023 11:21 AM EDT Narrative PREFERRED [employer] - 11/09/2023 3:27 PM EDT An NT pro-BNP level less than 300 pg/mL in any patient, regardless of age, effectively rules out acute CHF with a 99% negative predictive value. Ingestion of lakshmi doses of biotin (>5 mg/day) taken within 8 hours of drawing blood sample can interfere with this immunoassay test. Palma Jj DO CHEMISTRY ORDERABLES Final R esult [employer] [address] [place] [address] , [place] [address] * [facility] CAROTID DUPLEX BILATERAL (07/23/2023 10:47 AM [...] flow visualized in the bilateral vertebral artery. Palma Jj DO [facility] VASCULAR ORDERABLES Karen l Result documented in this encounter Visit Diagnoses Diagnosis Cellulitis of right foot- Primary Cellulitis and abscess of foot, except toes Exudative age-related macular degeneration of left eye, unspecified stage (HCC) Chronic diastolic (congestive) heart failure (HCC) PVD (peripheral vascular disease) (HCC) Peripheral vascular disease, unspecified Bilateral carotid artery stenosis Occlusion and stenosis of multiple and bilateral precerebral arteries without mention of cerebral infarction PVD (peripheral vascular disease) (HCC) Peripheral vascular disease, unspecified Bilateral carotid artery stenosis Occlusion and stenosis of multiple and bilateral precerebral arteries without mention of cerebral infarction documented in this encounter Additional Health Concerns Assessment Noted Time A fall risk assessment has been complete d for the patient 07/28/2022 8:48 AM EDT documented as of this encounter Care Teams Pediatric Physician Relationship Specialty Start Date End Date Palma Jj DO [address] [place] [phone] PCP - General Family Medicine 07/14/22 documented as of this encounter
--- OUTSIDE RECORDS SUMMARY | 2024-03-27 14:57 | XMS_ITS | Encounter Summary ---
Author Organization [facility] Address [address] [place] [address] Care Team Providers Care Phosphatic Fertilizer Supervisor Name Role Phone Palma Jj DO Primary Care Provider + [phone] Reason for Visit * Reason Onset Date Comments Medication Refill 05/25/2023 Encounter Details Date Type Department Care Team (Late st Contact Info) Description 05/25/2023 Refill [facility] [address] [facility] [address] [place] [address] Miky Webb MD [address] [place] [address] Medication Refill Social History Tobacco Use Types [...] Date Recorded PHQ-2 Total Score 0 11/07/2022 [facility] [place] of Occupat ional Health - Occupational Stress [...] Author No 11/07/2022 8:01 AM EDT Tomi Slauhgter CCMA documented in this encounter Plan of Treatment Upcoming Encounters Date Type Department Care Team (Late st Contact Info) Description 05/16/2024 9:30 AM EST Office Visit [facility] [address] [place] [phone] Gilda Francis PA [address] [place] [address] documented as of this encounter [...] UMA MICHELLE to have help getting new [place] plan by end February 2023 General Yes [...] Lumbar pain Lumbago Right sided sciatica Sciatica Lumbar radiculopathy Thoracic or lumbosacral neuritis or radiculitis, unspecified documented in this encounter Additional Health Concerns Assessment Noted Time A fall risk assessment has been complete d for the patient 07/28/2022 8:48 AM EDT documented as of this encounter Care Teams Phosphatic Fertilizer Supervisor Relationship Specialty Start Date End Date Palma Jj DO [address] [place] [phone] PCP - General Family Medicine 07/14/22 documented as of this encounter
--- OUTSIDE RECORDS SUMMARY | 2024-03-27 14:57 | XMS_ITS | Encounter Summary ---
Author Organization [place] Address [address] [place] [address] Care Team Providers Care Leasing Coordinator Name Role Phone Palma Jj DO Primary Care Provider + [phone] Reason for Visit * Reason Onset Date Comments Medication Refill 04/28/2023 Encounter Details Date Type Department Care Team (Late st Contact Info) Description 04/28/2023 Refill [facility] [place] [address] [place] [address] Palma Jj DO [address] [place] [phone] Medication Refill Social History Tobacco Use Types [...] Date Recorded PHQ-2 Total Score 0 11/07/2022 [facility] [place] of Occupat ional Health - Occupational Stress [...] place to sleep or slept in a usp (including now)? No 11/12/2022 Comments No Sex [...] Refills Last Filled Start Date End Date aspirin 81 mg Oral Tablet, Delayed Release (E.C.) Take 1 Tablet by mouth every morning. 04/28/2023 07/06/2023 documented in this encounter Miscellaneous Notes * Telephone Encounter - Jo Saucedo RMA - 04/28/2023 11:25 AM EST From: Stella Hytlon To: Office of Palma Jj Sent: 04/28/2023 11:18 AM EST Subject: Medication Renewal Request Refills have been requested for the following medications: Other - Gabapentin Preferred pharmacy: [id number] [place] [address] [address] [place] [address] Delivery method: Pickup Medication renewals requested in this message routed separately: a spirin 81 mg Oral Tablet, Delayed Release (E.C.) [Palma Jj] documented in this encounter Plan of Treatment Upcoming Encounters Date Type Department Care Team (Late st Contact Info) Description 05/16/2024 9:30 AM EST Office Visit [facility] [address] [place] [address] Gilda Francis PA [address] [place] [address] documented as of this encounter Goals Goal Patient Goal Type Associated Problems Recent Progress Patient-Stated? Author Blood Pressure < 140/90 Blood Pressure 130/90(11/08 10:29 AM EDT) Palma Rivera, DO Patient will take her blood sugar [...] UMA MICHELLE to have help getting new [place] plan by end February 2023 General Yes Geraldine Whiteside RN Stay Tobacco Free Lifestyle No Oralia Merida CCMA documented as of this encounter Visit Diagnoses Not on filedocumented in this encounter Discontinued Medications Medication Sig Discontinue Reason Start Date End Da te aspirin 81 mg Oral Tablet, Delayed Release (E.C.) Take 1 Tablet by mouth every morning. Reorder 01/28/2023 04/28/2023 documented as of this encounter Additional Health Concerns Assessment Noted Time A fall risk assessment has been complete d for the patient 07/28/2022 8:48 AM EDT documented as of this encounter Care Teams Leasing Coordinator Relationship Specialty Start Date End Date Palma Jj [place] [address] PCP - General Family Medicine 07/14/22 documented as of this encounter
--- OUTSIDE RECORDS SUMMARY | 2024-03-27 14:57 | XMS_ITS | Encounter Summary ---
Author Organization [facility] Address [place] [address] Care Team Providers Care Tavern Car Attendant Name Role Phone Palma Jj DO Primary Care Provider + [phone] Encounter Details Date Type Department Care Team (Late st Contact Info) Description 05/25/2023 Orders Only [facility] [address] [place] [address] Palma Jj DO [address] [place] [phone] Social History Tobacco Use Types Packs/Day Years [...] Date Recorded PHQ-2 Total Score 0 11/07/2022 [facility] [place] of Occupat ional Health - Occupational Stress [...] Tomi Slaughter CCMA documented in this encounter Plan of Treatment Upcoming Encounters Date Type Department Care Team (Late st Contact Info) Description 05/16/2024 9:30 AM EST Office Visit [facility] [address] [place] [phone] Gilda Francis PA [address] [place] [address] documented as of this encounter [...] UMA MICHELLE to have help getting new [place] plan by end February 2023 General Yes Geraldine Whiteside RN Stay Tobacco Free Lifestyle No Oralia Merida CCMA documented as of this encounter Visit Diagnoses Not on filedocumented in this encounter Discontinued Medications Medication Sig Discontinue Reason Start Date End Da te diclofenac (VOLTAREN) 75 mg Oral Tablet, Delayed Release (E.C.) Take 1 Tablet by mouth 2 times daily for 180 days. with meals Alternate therapy 01/28/2023 05/25/2023 documented as of this encounter Additional Health Concerns Assessment Noted Time A fall risk assessment has been complete d for the patient 07/28/2022 8:48 AM EDT documented as of this encounter Care Teams Tavern Car Attendant Relationship Specialty Start Date End Date Palma Jj DO [address] [employer] [place] [address] PCP - General Family Medicine 07/14/22 documented as of this encounter
--- OUTSIDE RECORDS SUMMARY | 2024-03-27 14:57 | XMS_ITS | Encounter Summary ---
Author [place] [address] Care Team Providers Care Supervisor Dental Laboratory Name Role Phone Palma Jj DO Primary Care Provider + [phone] Reason for Visit * Reason Comments Medication Refill Encounter Details Date Type Department Care Team (Late st Contact Info) Description 04/16/2023 Refill [facility] [place] [address] [address] [place] [address] [place] [address] Medication Refill Social History Tobacco Use [...] Date Recorded PHQ-2 Total Score 0 11/07/2022 [facility] [place] of Occupat ional Health - Occupational Stress [...] (LIPITOR) 10 mg Oral TabletIndications: Hypercholesterolem ia TAKE 1 TABLET BY MOUTH EVERY DAY 30 Tablet 04/16/2023 05/25/2023 documented in this encounter Miscellaneous Notes * Telephone Encounter - Martina Hardy CPhT - 04/16/2023 8:04 AM EST Atorvastatin Medication Refill Protocol failed due to need for appointment and labs/vitals/exacerbations. senior branch manager Reason: Past follow-up date noted by protocol. Protocol required follow-up within 12 months. Patient most recently had appointment on 04/06/23 but associated diagnosis not assessed. senior branch manager Reason: Lipid panel not on file within 12 months senior branch manager Action: Defer to office. Patient needs labwork or vitals completed. Routed to office staff for outreach for appointment scheduling and labs/vitals. documented in this encounter Plan of Treatment Upcoming Encounters Date Type Department Care Team (Late st Contact Info) Description 05/16/2024 9:30 AM EST Office Visit [facility] [address] [place] [phone] Gilda Francis PA [address] [place] [address] documented as of this encounter Goals Goal [...] UMA MICHELLE to have help getting new [place] plan by end February 2023 General Yes Geraldine Whiteside RN Stay Tobacco Free Lifestyle No Oralia Merida CCMA documented as of this encounter Visit Diagnoses Diagnosis Hypercholesterolemia Pure hypercholesterolemia documented in this encounter Discontinued Medications Medication Sig Discontinue Reason Start Date End Da te atorvastatin (LIPITOR) 10 mg Oral TabletIndications:Hyperc holesterolemia Take 1 Tablet by mouth daily. 12/23/2022 04/16/2023 documented as of this encounter Additional Health Concerns Assessment Noted Time A fall risk assessment has been complete d for the patient 07/28/2022 8:48 AM EDT documented as of this encounter Care Teams Supervisor Dental Laboratory Relationship Specialty Start Date End Date Palma Jj [place] [address] PCP - General Family Medicine 07/14/22 documented as of this encounter
--- OUTSIDE RECORDS SUMMARY | 2024-03-27 14:57 | XMS_ITS | Encounter Summary ---
Author Organization [facility] Address [place] [address] Care Team Providers Care Skilled Nursing Case Manager Name Role Phone Palma Jj DO Primary Care Provider + [phone] Reason for Visit * Reason Onset Date Comments Medication Refill 04/28/2023 Encounter Details Date Type Department Care Team (Late st Contact Info) Description 04/28/2023 Refill [facility] [place] [address] [place] [address] Palma Jj DO [address] [place] [phone] Medication Refill Social History Tobacco Use Types [...] Date Recorded PHQ-2 Total Score 0 11/07/2022 [facility] [place] of Occupat ional Health - Occupational Stress [...] EST Office Visit [facility] [address] [place] [address] Gilda Francis PA [address] [place] [address] documented as of this encounter [...] UMA MICHELLE to have help getting new [place] plan by end of February 2023 General Yes Geraldine Whiteside RN Stay Tobacco Free Lifestyle No Oralia Merida CCMA documented as of this encounter Visit Diagnoses Not on filedocumented in this encounter Additional Health Concerns Assessment Noted Time A fall risk assessment has been complete d for the patient 07/28/2022 8:48 AM EDT documented as of this encounter Care Teams Skilled Nursing Case Manager Relationship Specialty Start Date End Date Palma Jj DO [address] [place] [address] PCP - General Family Medicine 07/14/22 documented as of this encounter
--- OUTSIDE RECORDS SUMMARY | 2024-03-27 14:57 | XMS_ITS | Encounter Summary ---
Author Organization [place] [address] Care Team Providers Care Rn Labor And Delivery Name Role Phone Palma Jj DO Primary Care Provider + [phone] Reason for Visit * Reason Comments Medication Refill Encounter Details Date Type Department Care Team (Late st Contact Info) Description 04/16/2023 Refill [facility] [address] [place] [address] Palma Jj DO [address] [place] [phone] Medication Refill Social History Tobacco Use Types [...] Recorded PHQ-2 Total Score 0 11/07/2022 [facility] [place] of Occupat ional Health - Occupational Stress [...] place to sleep or slept in a [place] (including now)? No 11/12/2022 Comments No Sex [...] No 11/07/2022 8:01 AM oTmi Huggins CCMA * Does this person have [...] End Date famotidine (PEPCID) 40 mg Oral TabletIndications: GERD without esophagitis TAKE 1 TABLET BY MOUTH 2 TIMES DAILY FOR 90 DAYS. 180 Tablet 04/16/2023 05/25/2023 documented in this encounter Miscellaneous Notes * Telephone Encounter - Martina Hardy CPhT - 04/16/2023 7:57 AM EST Medication refill request deferred to office staff. environmental services tech Reason: Medication discontinued or inactive on the medication list documented in this encounter Plan of Treatment Upcoming Encounters Date Type Department Care Team (Late st Contact Info) Description 05/16/2024 9:30 AM EST Office Visit [facility] [address] [place] [address] Gilda Francis PA [address] [place] [address] documented as of this encounter [...] No Oralia Merida CCMA Will meet with RN MIGUEL ANGEL to have help getting new [place] plan by end of February 2023 General Yes Geraldine Whiteside RN Stay Tobacco Free Lifestyle No Oralia Merida CCMA documented as of this encounter Visit Diagnoses Diagnosis GERD without esophagitis Esophageal reflux documented in this encounter Additional Health Concerns Assessment Noted Time A fall risk assessment has been complete d for the patient 07/28/2022 8:48 AM EDT documented as of this encounter Care Teams Rn Labor And Delivery Relationship Specialty Start Date End Date Palma Jj DO [address] [place] [phone] PCP - General Family Medicine 07/14/22 documented as of this encounter
--- OUTSIDE RECORDS SUMMARY | 2024-03-27 14:57 | XMS_ITS | Encounter Summary ---
Author Organization [place] [address] Care Team Providers Care Information Technology Security Analyst Name Role Phone Palma Jj DO Primary Care Provider + [phone] Reason for Visit * Reason Comments Foot Injury Pain shot up leg yes terday morning about 6 AM and can't pressure on foot or anything Encounter Details Date Type Department Care Team (Late st Contact Info) Description 07/06/2023 1:00 PM EST Office Visit [facility] [address] [place] [address] Palma Jj DO [address] [place], [place] [id number] Acute foot pain, right (Primary Dx); Age related osteoporosis, unspecified pathological fracture presence; Essential hypertension; Spinal stenosis of lumbar region, unspecified whether neurogenic claudication present; DDD (degenerative disc disease), lumbar; Osteoporosis, unspecified osteoporosis type, unspecified pathological fracture presence; Neuroforaminal stenosis of lumbar spine; Lumbar pain; Right sided sciatica; Hypercholesterolemia; Vitamin D deficiency; GERD without esophagitis Social History Tobacco Use Types Packs/Day Years [...] Date Recorded PHQ-2 Total Score 0 11/07/2022 [facility] [place] of Occupat ional Health - Occupational Stress [...] Sign Reading Time Taken Comments Blood Pressure 122/70 07/06/2023 12:55 PM EST Pulse 76 07/06/2023 12:55 PM EST Temperature 35.8 ??C (96.4 ??F) 07/06/2023 12:[address] Respiratory Rate 18 07/06/2023 12:55 PM EST Oxygen Saturation 98% 07/06/2023 12:55 PM EST Inhaled Oxygen Concentration - - Weight 68.5 kg (151 lb) 07/06/2023 12:55 PM EST Height - - Body Mass Index 29.49 06/01/2023 8:03 AM EST documented in this [...] by mouth daily. 90 Tablet 2 07/06/2023 famotidine (PEPCID) 40 mg Oral TabletIndications: GERD without esophagitis Take 1 Tablet by mouth 2 times daily for 360 days. 180 Tablet 3 07/06/2023 4 Cholecalciferol, Vitamin D3, 50 mcg (2,000 unit) Oral CapsuleIndications :Vitamin D deficiency,Age related osteoporosis, unspecified pathological fracture presence Take 1 Capsule by mouth daily. 90 Capsule 2 07/06/2023 4 atorvastatin (LIPITOR) 10 mg Oral TabletIndications: Hypercholesterolem ia Take 1 Tablet by mouth daily for 360 days. 90 Tablet 3 07/06/2023 4 nortriptyline (PAMELOR) 25 mg Oral CapsuleIndications :Spinal stenosis of lumbar region, unspecified whether neurogenic claudication present,DDD (degenerative disc disease), lumbar,Osteoporosi s, unspecified osteoporosis type, unspecified pathological fracture presence,Neurofora jayy stenosis of lumbar spine,Lumbar pain,Right sided sciatica Take 1 capsule in the morning and 1 capsule at dinner 90 Capsule 2 07/06/2023 4 lisinopriL (PRINIVIL;ZESTRIL) 20 mg Oral Tablet tabletIndications: Essential hypertension Take 1 Tablet by mouth daily for 360 days. 90 Tablet 3 07/06/2023 4 documented in this encounter Progress Notes * Palma Jj, - 07/06/2023 1:00 PM EST Images from the original note were not included. Assessment Diagnoses and all orders for this visit: Acute foot pain, right - XR FOOT RIGHT AP LATERAL AND OBLIQUE; Future Age related osteoporosis, unspecified pathological fracture presence - Cholecalciferol, Vitamin D3, 50 mcg (2,000 unit) Oral Capsule; Take 1 Capsule by mouth daily. Dispense: 90 Capsule; Refill: 2 Essential hypertension - lisinopriL (PRINIVIL;ZESTRIL) 20 mg Oral Tablet tablet; Take 1 Tablet by mouth daily for 360 days. Dispense: 90 Tablet; Refill: 3 Spinal stenosis of lumbar region, unspecified whether neurogenic claudication present - meloxicam (MOBIC) 15 mg Oral Tablet; Take 1 Tablet by mouth daily. Dispense: 90 Tablet; Refill: 2 - nortriptyline (PAMELOR) 25 mg Oral Capsule; Take 1 capsule in the morning and 1 capsule at dinnerDispense: 90 Capsule; Refill: 2 DDD (degenerative disc disease), lumbar - meloxicam (MOBIC) 15 mg Oral Tablet; Take 1 Tablet by mouth daily. Dispense: 90 Tablet; Refill: 2 - nortriptyline (PAMELOR) 25 mg Oral Capsule; Take 1 capsule in the morning and 1 capsule at dinnerDispense: 90 Capsule; Refill: 2 Osteoporosis, unspecified osteoporosis type, unspecified pathological fracture presence - meloxicam (MOBIC) 15 mg Oral Tablet; Take 1 Tablet by mouth daily. Dispense: 90 Tablet; Refill: 2 - nortriptyline (PAMELOR) 25 mg Oral Capsule; Take 1 capsule in the morning and 1 capsule at dinnerDispense: 90 Capsule; Refill: 2 Neuroforaminal stenosis of lumbar spine - meloxicam (MOBIC) 15 mg Oral Tablet; Take 1 Tablet by mouth daily. Dispense: 90 Tablet; Refill: 2 - nortriptyline (PAMELOR) 25 mg Oral Capsule; Take 1 capsule in the morning and 1 capsule at dinnerDispense: 90 Capsule; Refill: 2 Lumbar pain - meloxicam (MOBIC) 15 mg Oral Tablet; Take 1 Tablet by mouth daily. Dispense: 90 Tablet; Refill: 2 - nortriptyline (PAMELOR) 25 mg Oral Capsule; Take 1 capsule in the morning and 1 capsule at dinnerDispense: 90 Capsule; Refill: 2 Right sided sciatica - meloxicam (MOBIC) 15 mg Oral Tablet; Take 1 Tablet by mouth daily. Dispense: 90 Tablet; Refill: 2 - nortriptyline (PAMELOR) 25 mg Oral Capsule; Take 1 capsule in the morning and 1 capsule at dinnerDispense: 90 Capsule; Refill: 2 Hypercholesterolemia - atorvastatin (LIPITOR) 10 mg Oral Tablet; Take 1 Tablet by mouth daily for 360 days. Dispense: 90Tablet; Refill: 3 Vitamin D deficiency - Cholecalciferol, Vitamin D3, 50 mcg (2,000 unit) Oral Capsule; Take 1 Capsule by mouth daily. Dispense: 90 Capsule; Refill: 2 - VITAMIN D 25 HYDROXY; Future GERD without esophagitis - famotidine (PEPCID) 40 mg Oral Tablet; Take 1 Tablet by mouth 2 times daily for 360 days. Dispense: 180 Tablet; Refill: 3 Other orders - aspirin 81 mg Oral Tablet, Delayed Release (E.C.); Take 1 Tablet by mouth every morning. Dispense: 90 Tablet; Refill: 2 Palma Jj DO Family Medicine 07/06/2023 Progress Note: Vitals: 07/06/23 1255 BP: 122/70 Pulse: 76 Resp: 18 Temp: 96.4 ??F (35.8 ??C) TempSrc: Temporal SpO2: 98% Weight: 151 lb (68.5 kg) Body mass index is 29.49 kg/m??. SUBJECTIVE: Chief Complaint Patient presents with Foot Injury Pain shot up leg yesterday morning about 6 AM and can't pressure on foot or anything HPI: 77 year old who presents with concern about right foot pain. Patient reports acute right foot pain over the past couple days. She reports the other morning she did dropped hands but does not recall dropping it directly on her foot. However she states yesterday and today she has had pain that shoots into her foot upper ankle when she puts pressure on her foot. Otherwise while sitting there isnot pain unless directly touching over a couple of bony areas in the foot. Additionally patient reports needing to switch her medications to mail-in pharmacy. Discussed the risk of increased bleeding with concurrent use of meloxicam and aspirin. Review of Systems Neurological: Negative for weakness and numbness. All other systems reviewed and are negative. OBJECTIVE: Physical Exam Vitals reviewed. Constitutional: General: She is not in acute distress. Appearance: Normal appearance. She is not ill-appearing, toxic-appearing or diaphoretic. HENT: Head: Normocephalic and atraumatic. Cardiovascular: Rate and Rhythm: Normal rate. Pulmonary: Effort: Pulmonary effort is normal. Musculoskeletal: Feet: Feet: Right foot: Skin integrity: Skin integrity normal. No ulcer, blister, skin breakdown, erythema, warmth or callus. Neurological: Mental Status: She is alert. documented in this encounter Plan of Treatment Upcoming Encounters Date Type Department Care Team (Late st Contact Info) Description 05/16/2024 9:30 AM EST Office Visit [facility] [address] [place] [address] Gilda Francis PA [address] [place] [address] documented as of this encounter Goals Goal [...] UMA MICHELLE to have help getting new [place] plan by end of February 2023 General Yes Geraldine Whiteside RN Stay Tobacco Free Lifestyle No Oralia Merida CCMA documented as of this encounter Results * XR FOOT RIGHT [...] 2:05 PM CLINICAL HISTORY: ??M79.671-Pain in right [id number] COMPARISON: ??None. PROCEDURE COMMENTS: XR FOOT RIGHT AP LATERAL AND OBLIQUE FINDINGS: There is no fracture or traumatic malalignment. 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 There is hallux bunion. 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 Procedure Note Juaquin Morel MD - 07/06/2023 XR FOOT RIGHT AP LATERAL AND OBLIQUE, 07/06/2023 2:05 PM CLINICAL HISTORY: M79.671-Pain in right [id number] COMPARISON: None. PROCEDURE COMMENTS: XR FOOT RIGHT [...] encounter Visit Diagnoses Diagnosis Acute foot pain, right- Primary Age related osteoporosis, unspecified pathological fracture presence Essential hypertension Unspecified essential hypertension Spinal stenosis of lumbar region, unspecified whether neurogenic claudication present DDD (degenerative disc disease), lumbar Degeneration of lumbar or lumbosacral intervertebral disc Osteoporosis, unspecified osteoporosis type, unspecified pathological fracture presence Neuroforaminal stenosis of lumbar spine Lumbar pain Lumbago Right sided sciatica Sciatica Hypercholesterolemia Pure hypercholesterolemia Vitamin D deficiency Unspecified vitamin D deficiency GERD without esophagitis Esophageal reflux Acute foot pain, right documented in this encounter Discontinued Medications Medication Sig Discontinue Reason Start Date End Da te aspirin 81 mg Oral Tablet, Delayed Release (E.C.) Take 1 Tablet by mouth every morning. Reorder 04/28/2023 07/06/2023 famotidine (PEPCID) 40 mg Oral TabletIndications:GERD without esophagitis Take 1 Tablet by mouth 2 times daily for 90 days. Reorder 05/25/2023 07/06/2023 atorvastatin (LIPITOR) 10 mg Oral TabletIndications:Hyperc holesterolemia Take 1 Tablet by mouth daily. Reorder 05/25/2023 07/06/2023 Cholecalciferol, Vitamin D3, 50 mcg (2,000 unit) Oral CapsuleIndications:Vitam in D deficiency,Age related osteoporosis, unspecified pathological fracture presence Take 1 Capsule by mouth daily. Reorder 05/25/2023 07/06/2023 nortriptyline (PAMELOR) 25 mg Oral CapsuleIndications:Spina l stenosis of lumbar region, unspecified whether neurogenic claudication present,DDD (degenerative disc disease), lumbar,Osteoporosis, unspecified osteoporosis type, unspecified pathological fracture presence,Neuroforaminal stenosis of lumbar spine,Lumbar pain,Right sided sciatica Take 1 capsule in the morning and 1 capsule at dinner Reorder 06/30/2023 07/06/2023 meloxicam (MOBIC) 15 mg Oral TabletIndications:Spinal stenosis of lumbar region, unspecified whether neurogenic claudication present,DDD (degenerative disc disease), lumbar,Osteoporosis, unspecified osteoporosis type, unspecified pathological fracture presence,Neuroforaminal stenosis of lumbar spine,Lumbar pain,Right sided sciatica Take 1 Tablet by mouth daily. Reorder 06/30/2023 07/06/2023 lisinopriL (PRINIVIL;ZESTRIL) 20 mg Oral Tablet tabletIndications:Essent ial hypertension Take 1 Tablet by mouth daily for 90 days. Reorder 06/30/2023 07/06/2023 HYDROcodone-acetaminophe n (NORCO) 5-325 mg Oral TabletIndications:Spinal stenosis of lumbar region, unspecified whether neurogenic claudication present,DDD (degenerative disc disease), lumbar,Osteoporosis, unspecified osteoporosis type, unspecified pathological fracture presence,Neuroforaminal stenosis of lumbar spine,Lumbar radiculopathy Take 1 Tablet by mouth every 8 hours as needed for Acute Pain (R52). Patient Reported not taking medication 05/01/2023 07/06/2023 documented as of this encounter Additional Health Concerns Assessment Noted Time A fall risk assessment has been complete d for the patient 07/28/2022 8:48 AM EDT documented as of this encounter Care Teams Information Technology Security Analyst Relationship Specialty Start Date End Date Palma Jj DO [employer] [place] [id number] PCP - General Family Medicine 07/14/22 documented as of this encounter
--- OUTSIDE RECORDS SUMMARY | 2024-03-27 14:57 | XMS_ITS | Encounter Summary ---
Author Organization [facility] Address [address] [place] [address] Care Team Providers Care Tile Molder Hand Name Role Phone Palma Jj DO Primary Care Provider + [phone] Reason for Visit * Reason Onset Date Comments Other 07/15/2023 Daughter request ing call back Encounter Details Date Type Department Care Team (Late st Contact Info) Description 07/15/2023 Telephone [facility] [address] [place] [address] Palma Jj DO [address] [place] [phone] Other (Daughter requesting call back) Social History Tobacco Use Types Packs/Day Years [...] Date Recorded PHQ-2 Total Score 0 11/07/2022 [facility] [place] of Occupat ional Health - Occupational Stress [...] place to sleep or slept in a group home (including now)? No 11/12/2022 Comments No [...] Telephone Encounter - Ayla Quarles MA - 07/15/2023 1:17 PM EST Noted. * Telephone Encounter - Luis Fuller - 07/15/2023 12:06 PM EST Select the most appropriate reason for this telephone message: Other Who is calling (name & relationship to patient if not the patient): Daughter Sujatha (Not on ICF) What is needed OR why are they calling: PT's daughter stated She does not want to come in for any kind of alzheimer's or dementia evaluations. She only wants to have the ultrasound and an appt to goover the results. She also wants anything related to dementia to be taken off of her chart. She requested for the call back to be to her. She was advised that the PT would need to add her to her ICFin office. When is this needed by: when available Where does this information need to go: [facility] Additional information: n/a documented in this encounter Plan of Treatment Upcoming Encounters Date Type Department Care Team (Late st Contact Info) Description 05/16/2024 9:30 AM EST Office Visit [facility] [address] [place] [address] Gilda Francis PA [address] [place] [address] documented as of this encounter [...] MICHELLE to have help getting new [place] plan by end of February 2023 General Yes Geraldine Whiteside RN Stay Tobacco Free Lifestyle No Oralia Merida CCMA documented as of this encounter Visit Diagnoses Not on filedocumented in this encounter Additional Health Concerns Assessment Noted Time A fall risk assessment has been complete d for the patient 07/28/2022 8:48 AM EDT documented as of this encounter Care Teams Tile Molder Hand Relationship Specialty Start Date End Date Palma Jj DO [employer] [place] [phone] PCP - General Family Medicine 07/14/22 documented as of this encounter
--- OUTSIDE RECORDS SUMMARY | 2024-03-27 14:57 | XMS_ITS | Encounter Summary ---
Author Organization [facility] Address [address] [place] [address] Care Team Providers Care Railroad Car Inspector Name Role Phone Palma Jj DO Primary Care Provider + [phone] Reason for Visit * Reason Onset Date Comments Medication Refill 05/25/2023 Encounter Details Date Type Department Care Team (Late st Contact Info) Description 05/25/2023 Refill [facility] [address] [place] [address] Miky Webb MD [address] [place] [address] Medication Refill Social History Tobacco Use Types [...] PHQ-2 Total Score 0 11/07/2022 [facility] [place] of Occupat ional Health - Occupational Stress [...] End Date nortriptyline (PAMELOR) 25 mg Oral CapsuleIndications: Spinal stenosis of lumbar region, unspecified whether neurogenic claudication present,DDD (degenerative disc disease), lumbar,Osteoporosis , unspecified osteoporosis type, unspecified pathological fracture presence,Neuroforam inal stenosis of lumbar spine,Lumbar pain,Right sided sciatica Take 1 capsule in the morning and 1 capsule at dinner 30 Capsule 05/25/2023 4 gabapentin (NEURONTIN) 300 mg Oral CapsuleIndications: Spinal stenosis of lumbar region, unspecified whether neurogenic claudication present,DDD (degenerative disc disease), lumbar,Osteoporosis , unspecified osteoporosis type, unspecified pathological fracture presence,Neuroforam inal stenosis of lumbar spine,Lumbar radiculopathy Take 1 Capsule by mouth nightly. 30 Capsule 1 05/25/2023 4 documented in this encounter Plan of Treatment Upcoming Encounters Date Type Department Care Team (Late st Contact Info) Description 05/16/2024 9:30 AM EST Office Visit [facility] [address] [place] [id number] Gilda Francis PA [address] [place] [address] documented as of this encounter Goals Goal [...] Yes Geraldine Whiteside, RN Pay off [facility] by Spring 2023 General On track(2022 8:25 AM EDT) Yes Geraldine Whiteside, RN Note: -01/28/23 [facility] bill is 120 dollars. Called, no payment assistance available. Continue to pay on it 20 dollars monthly to pay off by Spring 2023 Maintain a healthy diet, exercise regularly and maintain an ideal body weight General No Oralia Merida CCMA Will meet with UMA MICHELLE to have help getting new [place] plan by end February 2023 General Yes [...] Thoracic or lumbosacral neuritis or radiculitis, unspecified Lumbar pain Lumbago Right sided sciatica Sciatica [...] morning and 1 capsule at dinner Reorder 05/01/2023 05/25/2023 gabapentin (NEURONTIN) 300 mg Oral CapsuleIndications:Spinal stenosis of lumbar region, unspecified whether neurogenic claudication present,DDD (degenerative disc disease), lumbar,Osteoporosis, unspecified osteoporosis type, unspecified pathological fracture presence,Neuroforaminal stenosis of lumbar spine,Lumbar radiculopathy Take 1 Capsule by mouth nightly. Reorder 05/01/2023 05/25/2023 documented as of this encounter Additional Health Concerns Assessment Noted Time A fall risk assessment has been complete d for the patient 07/28/2022 8:48 AM EDT documented as of this encounter Care Teams Railroad Car Inspector Relationship Specialty Start Date End Date Palma Jj DO [facility] [place] [id number] PCP - General Family Medicine 07/14/22 documented as of this encounter
--- OUTSIDE RECORDS SUMMARY | 2024-03-27 14:57 | XMS_ITS | Encounter Summary ---
Author Organization [place] [address] Care Team Providers Care Seat Nailer Name Role Phone Palma Jj DO Primary Care Provider + [phone] Reason for Visit * Reason Onset Date Comments Medication Refill 05/25/2023 Encounter Details Date Type Department Care Team (Late st Contact Info) Description 05/25/2023 Refill [facility] [address] [place] [address] Palma Jj DO [address] [place] [phone] Medication Refill Social History Tobacco Use Types [...] Date Recorded PHQ-2 Total Score 0 11/07/2022 [facility] [place] of Occupat ional Health - Occupational Stress [...] mouth once a week. 12 Capsule 3 05/25/2023 4 Cholecalciferol, Vitamin D3, 50 mcg (2,000 unit) Oral CapsuleIndications :Vitamin D deficiency,Age related osteoporosis, unspecified pathological fracture presence Take 1 Capsule by mouth daily. 90 Capsule 2 05/25/2023 4 famotidine (PEPCID) 40 mg Oral TabletIndications: GERD without esophagitis Take 1 Tablet by mouth 2 times daily for 90 days. 180 Tablet 05/25/2023 4 Cholecalciferol, Vitamin D3, 50 mcg (2,000 unit) Oral CapsuleIndications :Vitamin D deficiency,Age related osteoporosis, unspecified pathological fracture presence Take 1 Capsule by mouth daily. 90 Capsule 2 05/25/2023 4 ergocalciferol (DRISDOL) 1,250 mcg (50,000 unit) Oral Capsule Take 1 Capsule by mouth once a week. 12 Capsule 3 05/25/2023 4 documented in this encounter Miscellaneous Notes * Addendum Note - Leobardo Ernandez CCMA - 05/25/2023 11:14 AM ESTAddended by: LEOBARDO ERNANDEZ on: 05/25/2023 11:14 AM Modules accepted: Orders documented in this encounter Plan of Treatment Upcoming Encounters Date Type Department Care Team (Late st Contact Info) Description 05/16/2024 9:30 AM EST Office Visit [facility] [address] [place] [address] Gilda Francis PA [address] [place] [address] documented as of this encounter Goals Goal [...] UMA MICHELLE to have help getting new [place] plan by end February 2023 General Yes Geraldine Whiteside RN Stay Tobacco Free Lifestyle No Oralia Merida CCMA documented as of this encounter Visit Diagnoses Diagnosis Vitamin D deficiency Unspecified vitamin D deficiency Age related osteoporosis, unspecified pathological fracture presence GERD without esophagitis Esophageal reflux documented in this encounter Discontinued Medications Medication Sig Discontinue Reason Start Date End Da te ergocalciferol (DRISDOL) 1,250 mcg (50,000 unit) Oral Capsule Take 1 Capsule by mouth once a week. Reorder 01/28/2023 05/25/2023 Cholecalciferol, Vitamin D3, 50 mcg (2,000 unit) Oral CapsuleIndications:Vitami n D deficiency,Age related osteoporosis, unspecified pathological fracture presence Take 1 Capsule by mouth daily. Reorder 01/28/2023 05/25/2023 famotidine (PEPCID) 40 mg Oral TabletIndications:GERD without esophagitis TAKE 1 TABLET BY MOUTH 2 TIMES DAILY FOR 90 DAYS. Reorder 04/16/2023 05/25/2023 ergocalciferol (DRISDOL) 1,250 mcg (50,000 unit) Oral Capsule Take 1 Capsule by mouth once a week. Reorder 05/25/2023 05/25/2023 Cholecalciferol, Vitamin D3, 50 mcg (2,000 unit) Oral CapsuleIndications:Vitami n D deficiency,Age related osteoporosis, unspecified pathological fracture presence Take 1 Capsule by mouth daily. Reorder 05/25/2023 05/25/2023 documented as of this encounter Additional Health Concerns Assessment Noted Time A fall risk assessment has been complete d for the patient 07/28/2022 8:48 AM EDT documented as of this encounter Care Teams Seat Nailer Relationship Specialty Start Date End Date Palma Jj DO [place] [phone] PCP - General Family Medicine 07/14/22 documented as of this encounter
--- OUTSIDE RECORDS SUMMARY | 2024-03-27 14:57 | XMS_ITS | Encounter Summary ---
Author Organization [place] Address [address] [place] [address] Care Team Providers Care Adult Caregiver Name Role Phone Palma Jj DO Primary Care Provider + [phone] Reason for Visit * Reason Onset Date Comments Medication Refill 06/30/2023 Disp Refills S tart End meloxicam (MOBIC) 15 mg Oral Tablet 30 Tablet 0 05/28/2023 - Sig - Route:??TAKE 1 TABLET BY MOUTH EVERY DAY - Oral Disp Refills Start End lisinopriL (PRINIVIL;ZESTRIL) 20 mg Oral Tablet tablet 30 Tablet 2 04/06/2023 07/05/2023 Sig - Route:??Take 1 Tablet by mouth daily for 90 days. - Oral Disp Refills Start End nortriptyline (PAMELOR) 25 mg Oral Capsule 30 Capsule 0 05/25/2023 - Sig:??Take 1 capsule in the morning and 1 capsule at dinner Medication Management 06/30/2023 pt wants e very one of her medications switched to 90 day supply Encounter Details Date Type Department Care Team (Late st Contact Info) Description 06/30/2023 Telephone [facility] [address] [place] [address] Palma Jj, DO [address] [place], [place] [address] Medication Refill ( Disp Refills Start End [...] her medications switched to 90 day supply) Social History Tobacco Use Types Packs/Day Years [...] Date Recorded PHQ-2 Total Score 0 11/07/2022 [facility] [place] of Occupat ional Health - Occupational Stress [...] Tablet by mouth daily for 90 days. 90 Tablet 2 06/30/2023 02/26/202 4 meloxicam (MOBIC) 15 mg Oral TabletIndications: Spinal stenosis of lumbar region, unspecified whether neurogenic claudication present,DDD (degenerative disc disease), lumbar,Osteoporosi s, unspecified osteoporosis type, unspecified pathological fracture presence,Neurofora jayy stenosis of lumbar spine,Lumbar pain,Right sided sciatica Take 1 Tablet by mouth daily. 90 Tablet 2 06/30/2023 4 nortriptyline (PAMELOR) 25 mg Oral CapsuleIndications :Spinal stenosis of lumbar region, unspecified whether neurogenic claudication present,DDD (degenerative disc disease), lumbar,Osteoporosi s, unspecified osteoporosis type, unspecified pathological fracture presence,Neurofora jayy stenosis of lumbar spine,Lumbar pain,Right sided sciatica Take 1 capsule in the morning and 1 capsule at dinner 90 Capsule 2 06/30/2023 4 documented in this encounter Miscellaneous Notes * Telephone Encounter - Mann Campbell - 06/30/2023 11:25 AM EST Select the most appropriate reason for this telephone message: Medication Refill Who is requesting the refill: Patient Medication(s)Name/Dosage/Frequency: Disp Refills Start End meloxicam (MOBIC) 15 mg Oral Tablet 30 Tablet 0 05/28/2023 -- Sig - Route: TAKE 1 TABLET BY MOUTH EVERY DAY - Oral Disp Refills Start End lisinopriL (PRINIVIL;ZESTRIL) 20 mg Oral Tablet tablet 30 Tablet 2 04/06/2023 07/05/2023 Sig - Route: Take 1 Tablet by mouth daily for 90 days. - Oral Disp Refills Start End nortriptyline (PAMELOR) 25 mg Oral Capsule 30 Capsule 0 05/25/2023 -- Sig: Take 1 capsule in the morning and 1 capsule at dinner Did patient contact the pharmacy first: No How many days left on hand: 0 Future appt date w/ prescribing provider: none Pharmacy & Location: [facility] Additional Notes: 90 day supply if possible * Telephone Encounter - Mann Campbell - 06/30/2023 11:24 AM EST Select the most appropriate reason for this telephone message: Medication Management/Problem Who is calling? Patient What medication(s) do you have concerns about: every medication Prescribing provider: aubree What are your concerns/request: pt wants every one of her medications switched to 90 day supply Desired outcome: Other 90 day supply Last appointment date: 04/06 [facility]: [facility] Additional notes: documented in this encounter Plan of Treatment Upcoming Encounters Date Type Department Care Team (Late st Contact Info) Description 05/16/2024 9:30 AM EST Office Visit [facility] [address] [place] [id number] Gilda Francis PA [address] [place] [address] documented as of this encounter [...] UMA MICHELLE to have help getting new [place] plan by end of February 2023 General [...] Lumbar pain Lumbago Right sided sciatica Sciatica Essential hypertension Unspecified essential hypertension documented in this encounter Discontinued Medications Medication Sig Discontinue Reason Start Date End Da te lisinopriL (PRINIVIL;ZESTRIL) 20 mg Oral Tablet tabletIndications:Essenti al hypertension Take 1 Tablet by mouth daily for 90 days. Reorder 04/06/2023 06/30/2023 nortriptyline (PAMELOR) 25 mg Oral CapsuleIndications:Spinal stenosis of lumbar region, unspecified whether neurogenic claudication present,DDD (degenerative disc disease), lumbar,Osteoporosis, unspecified osteoporosis type, unspecified pathological fracture presence,Neuroforaminal stenosis of lumbar spine,Lumbar pain,Right sided sciatica Take 1 capsule in the morning and 1 capsule at dinner Reorder 05/25/2023 06/30/2023 meloxicam (MOBIC) 15 mg Oral TabletIndications:Spinal stenosis of lumbar region, unspecified whether neurogenic claudication present,DDD (degenerative disc disease), lumbar,Osteoporosis, unspecified osteoporosis type, unspecified pathological fracture presence,Neuroforaminal stenosis of lumbar spine,Lumbar pain,Right sided sciatica TAKE 1 TABLET BY MOUTH EVERY DAY Reorder 05/28/2023 06/30/2023 documented as of this encounter Additional Health Concerns Assessment Noted Time A fall risk assessment has been complete d for the patient 07/28/2022 8:48 AM EDT documented as of this encounter Care Teams Adult Caregiver Relationship Specialty Start Date End Date Palma [place] [address] PCP - General Family Medicine 07/14/22 documented as of this encounter
--- OUTSIDE RECORDS SUMMARY | 2024-03-27 14:58 | XMS_ITS | Encounter Summary ---
Author Organization [place] Address [place] [address] Care Team Providers Care Veterinary Bacteriologist Name Role Phone Palma Jj DO Primary Care Provider + [phone] Geraldine Whiteside RN Unavailable Unavailable Encounter Details Date Type Department Care Team (Late st Contact Info) Description 01/09/2023 Orders Only [facility] [address] [place] [address] Palma Jj DO [address] [place] [id number] Social History Tobacco Use Types Packs/Day Years [...] like food, housing, medical care, and heating? Hard 03/28/2022 PHQ-2 Answer Date Recorded PHQ-2 Total Score 0 11/07/2022 [facility] of Occupat ional Health - Occupational Stress [...] you got the money to buy more. Often true 04/17/20 22 Within the past 12 months, t he food you bought just didn't last and you didn't have money to get more. Often true 04/17/2022 PRAPARE - Transportation Answer Date Re corded In the past 12 months, has l ack of transportation kept you from medical appointments or from getting medications? Yes 03/11 In the past 12 months, has l ack of transportation kept you from meetings, work, or from getting things needed for daily living? No 03/28/2022 Housing Stability Vital Sign Answer Robles e [...] on file Sexual Orientation Not on file COVID-19 Exposure Response Date Recorded In the last 10 days, have yo u been in contact with someone who was confirmed or suspected to have Coronavirus/COVID-19? No / Unsure 12/19/2022 9:32 AM EDT documented as of this encounter Functional Status [...] EST Office Visit [facility] [address] [place] [id number] Gilda Francis PA [address] [place] [address] documented as of this encounter Goals Goal Patient Goal Type Associated Problems Recent Progress Patient-Stated? Author Blood Pressure < 140/90 Blood Pressure 130/90(2023 10:29 AM EDT) No Palma Jj DO Patient will take her blood sugar once a day for a week in the morning, and report the sugars back to provider General On track( 023 10:50 AM EDT) Yes Geraldine Whiteside RN documented as of this encounter Visit Diagnoses Not on filedocumented in this encounter Discontinued Medications Medication Sig Discontinue Reason Start Date End Da te loperamide (IMODIUM) 2 mg Oral CapsuleIndications:Diar jazmyne, unspecified type Take 1 Capsule by mouth 4 times daily as needed for Diarrhea. Patient Reported not taking medication 09/17/2021 01/09/2023 documented as of this encounter Additional Health Concerns Assessment Noted Time A fall risk assessment has been complete d for the patient 07/28/2022 8:48 AM EDT documented as of this encounter Care Teams Veterinary Bacteriologist Relationship Specialty Start Date End Date Palma Jj DO [address] [place] [address] PCP - General Family Medicine 07/14/22 Geradline Whiteside, RN Furniture [employer]isher 01/09/23 03/05/23 documented as of this encounter
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
--- OUTSIDE RECORDS SUMMARY | 2024-03-27 14:58 | XMS_ITS | Encounter Summary ---
Author Organization [place] [address] Care Team Providers Care Membership Administrator Name Role Phone Palma Jj DO Primary Care Provider + [phone] Geraldine Whiteside RN Unavailable Unavailable Reason for Visit * Reason Comments CM- Longitudinal Continued Care Management - Face To Face CM-Resource Coordination CM-Medication Assistance CM- Consultation CM - Medication Reconciliation CM-SDOH Encounter Details Date Type Department Care Team (Latest Contact Info) Description 01/28/2023 9:00 AM EDT Office Visit [facility] [place] [address] [place] [address] Geraldine Whiteside, RN Encounter for support and coordination of transition of care (Primary Dx); GERD without esophagitis; Thoracic spine pain; Vitamin D deficiency; L5 S1 Protrusion of intervertebral disc of lumbosacral region; Age related osteoporosis, unspecified pathological fracture presence; Acute low back pain, unspecified back pain laterality, unspecified whether sciatica present; Seasonal allergic rhinitis due to pollen Social History Tobacco Use Types Packs/Day Years [...] Recorded PHQ-2 Total Score 0 11/07/2022 [facility] - Occupational Stress Questionnaire Answer Date Recorded [...] Take 1 Tablet by mouth every morning. 01/28/2023 3 Cholecalciferol, Vitamin D3, 50 mcg (2,000 unit) Oral CapsuleIndications:V itamin D deficiency,Age related osteoporosis, unspecified pathological fracture presence Take 1 Capsule by mouth daily. 90 Capsule 2 01/28/2023 4 loratadine-pseudoeph edrine (ALLERGY RELIEF D-24HR) 10-240 mg Oral Tablet Sustained Release 24 hrIndications:Season al allergic rhinitis due to pollen Take one tablet daily 30 Tablet 2 01/28/2023 3 tiZANidine (ZANAFLEX) 4 mg Oral TabletIndications:Th oracic spine pain,Vitamin D deficiency,Protrusio n of intervertebral disc of lumbosacral region,Age related osteoporosis, unspecified pathological fracture presence,Acute low back pain, unspecified back pain laterality, unspecified whether sciatica present Take 1 Tablet by mouth nightly as needed. 30 Tablet 01/28/2023 3 famotidine (PEPCID) 40 mg Oral TabletIndications:GE RD without esophagitis Take 1 Tablet by mouth 2 times daily for 90 days. 180 Tablet 01/28/2023 3 ergocalciferol (DRISDOL) 1,250 mcg (50,000 unit) Oral Capsule Take 1 Capsule by mouth once a week. 12 Capsule 3 01/28/2023 4 diclofenac (VOLTAREN) 75 mg Oral Tablet, Delayed Release (E.C.) Take 1 Tablet by mouth 2 times daily for 180 days. with meals 180 Tablet 1 01/28/2023 4 documented in this encounter Progress Notes * Geraldine Whiteside, RN - 01/28/2023 9:00 AM EDT Images from the original note were not included. Assessment: Patient presents today to discuss her SNAP benefits/ Medicaid paperwork. Office Heel Seat Trimmer (OCC) had helped her write out/gather her needed information for her applications to take to the [facility] [employer] in [place], [place] last visit, which she did. She received mailfrom [employer] stating SNAP needed more information. Also received [employer] letter stating that she qualifies for a Qualifying Health Plan, but nothing about her Medicaid. Per the patient, when she went down to the [facility] [employer] ([facility]after our last visit, they told her that herMedicaid was reinstated after that day. So she should be taken care of on that issue. Also wants tosubmit financial assistance for [facility], and look for assistance for Ortho Jeremy confused as to why she was prescribed Celexa along with her current Voltaren. Orthopedic prescribedCelexa, but patient is listed allergic to it and stated that she is allergic to it. Has a bottle of prednisone and she doesn't know what for or why she got it The main issues to address with the patient after conducting visit today were organizing/clarifyingher medicines, explaining papers to her and discarding unneeded ones, and straightening out her care concerns. Concerned that patient may have memory issues after completing nursing general assessment during visit today tearful at times, states she gets no help from family. Cannot drive due to macular degeneration andcannot read well. Often needs help reading documents. Gets help from her friend in [facility] chart, son is very busy and does not see or help often. Given patients forgetfulness, multiple chronic illnesses, and lack of support , she would be a proper candidate who could benefit from Chronic Care Management (CCM) OCCvisitType: Face to Face Education/handouts: Education: To solve first issue/concern of [facility] Oral[facility]udd[facility], MIGUEL ANGEL went through all of her [facility] bills and discarded old ones. Had her log onto her [employer]. Saw that her only balance was from the hospital ([facility]) for 1300 dollars. Applied online for financial assistance, submitted application right then. Had her pay the 2.38 copay for . Physicians after h er visit. Only bill we could not address or provide assistance with was [facility]. OCC called them,and they do not offer financial assistance. She elected to just pay the minimum until paid off. Went through her [employer] SNAP Letter and Medicaid letter. Reiterated to her that the [facility] manages this type of work, and put all of those papers in a folder labled [facility] for her ot take to them to discuss. Included directions for her to ask them to fax the needed SNAP papers that the [employer] letter requested, and directed for her to have them explain the Medicaid letter further to her. [facility] is not able to assist beyond this, as Medicaid enrollment/SNAP enrollment is what the [facility] is to do. Only assisted her with filling out/gathering the information needed for these applications since she was here, and cannot see well. Current medication list were reconciled with Stella Hylton 1945. Any new and discontinued medications as well as dosage changes were reviewed. All medication questions and concerns were addressed. Spoke to Dr. Jj. She agreed that she should not be taking Celexa at all, and discontinued it dueto already taking Voltaren, and being allergic to Celexa. Also found out prednisone was from an December visit with Dr. Jj for [facility] [place], never got filled. She stated [facility]'t [facility] her until this month, unsure if she got confused and never filled it. So after reconciling her medicines and finally understnding her confusion on her medicines, called [facility] to get her scheduled for pill packs. This may aid in her confusion with medicine, and make it easier for her. Appointment 02/02/23, gave her a folder with paper scripts from Palma Jj DO to take to her appointment 02/02/23 with [facility]. Gave her written instructions that were simplified on her AVS for her to get these tasks completed. Chronic Care Management services are available and have been discussed with the patient. Patient has been made aware: Only one practitioner can bill for Chronic Care Management services per month They can stop their Chronic Care Management services at any time and the change will be effective the last day of the calendar month Services are subject to the usual coinsurance applied to physician services After discussion, the patient verbally agrees to Chronic Care Management enrollment. The patient denies any questions or concerns related to Chronic Care Management at this time. Handouts: Labled SNAP folder for her and placed her SNAP papers in it, Medicaid folder labeled and placedpapers in it, contact card for OCC, paper scripts for [facility] signed by Dr. Parviz Queen already active and access confirmed with patient. Goals: Goals Addressed This Visit's Progress COMPLETED: Apply for SEP/SEH FInancial Assistance (pt-stated) -01/28/23 applied for financial assistance for SEH/SEP Get Medicaid Coverage clarification at [employer] in [facility] today 01/28/23 (pt-stated) Discuss: -What the Qualified Health Plan papers are ( you already have Medicare, you just want your Medicaidpartial reinstated) - on 01/14/23, Medicaid on the phone said it was reinstated, and you are confused about the QHP paperthey sent. -ask them to explain this to you Get pill packs with [facility] by February 2023 (pt-stated) Attend visit with [facility] on 02/02/23 to start pill packs Patient will turn her SNAP application into the [employer] in [facility] (pt-stated) Papers You Need: -2022 [facility] Pharmacy printout of costs(pickup at [facility]) -property tax paper(you got this) -mortgage paper (you got this) Pay off [facility] by Spring 2023 (pt-stated) -01/28/23 [facility] bill is 120 dollars. Called, no payment assistance available. Continue to pay on it 20 dollars monthly to pay off by Spring 2023 Next Steps: Heel Seat Trimmer contact information given / reviewed Reviewed when to call Primary Care Provider (PCP) office, urgent care, or 911 Patient will follow up with care coordination on 02/27/23 Heel Seat Trimmer will continue to care manage patient Notes: Will call OCC this week if she needs OCC. Chronic Care Management- Time Spent with Patient Time spent with patient (minutes): 100 Time spent performing chart review (minutes): 20 Total time (minutes): 120 documented in this encounter Plan of Treatment Upcoming Encounters Date Type Department Care Team (Late st Contact Info) Description 05/16/2024 9:30 AM EST Office Visit [facility] [address] [place] [id number] Gilda Francis PA [address] [place] [address] documented as of this encounter Goals Goal Patient Goal Type Associated Problems Recent Progress Patient-Stated? Author Blood Pressure < 140/90 Blood Pressure 130/90(2023 10:29 AM EDT) No Palma Jj, DO Patient will take her blood sugar once a day for a week in the morning, and report the sugars back to provider General On track( 023 10:50 AM EDT) Yes Geraldine Whiteside RN Pay off [facility] by Spring 2023 General On track( 023 8:25 AM EDT) Yes Geraldine Whiteside RN Note: -01/28/23 [facility] bill is 120 dollars. Called, no payment assistance available. Continue to pay on it 20 dollars monthly to pay off by Spring 2023 documented as of this encounter Visit Diagnoses Diagnosis Encounter for support and coordination of transition of care- Primary GERD without esophagitis Esophageal reflux Thoracic spine pain Pain in thoracic spine Vitamin D deficiency Unspecified vitamin D deficiency L5 S1 Protrusion of intervertebral disc of lumbosacral region Age related osteoporosis, unspecified pathological fracture presence Acute low back pain, unspecified back pain laterality, unspecified whether sciatica present Seasonal allergic rhinitis due to pollen documented in this encounter Discontinued Medications Medication Sig Discontinue Reason Start Date End Da te cholecalciferol, vitamin D3, 10 mcg (400 unit) Oral Capsule Take 1 Tablet by mouth daily. Cancelled by 01/28/2023 aspirin 81 mg Oral Tablet, Delayed Release (E.C.) Take 1 Tab by mouth every morning. Reorder 01/28/2023 diclofenac (VOLTAREN) 75 mg Oral Tablet, Delayed Release (E.C.) TAKE 1 TABLET BY MOUTH 2 TIMES DAILY FOR 180 DAYS. WITH MEALS Reorder 10/27/2022 01/28/2023 loratadine-pseudoephedrine (ALLERGY RELIEF D-24HR) 10-240 mg Oral Tablet Sustained Release 24 hrIndications:Seasonal allergic rhinitis due to pollen Take one tablet daily Reorder 12/23/2022 01/28/2023 ergocalciferol (DRISDOL) 1,250 mcg (50,000 unit) Oral Capsule Take 1 Capsule by mouth once a week. Reorder 12/23/2022 01/28/2023 famotidine (PEPCID) 40 mg Oral TabletIndications:GERD without esophagitis Take 1 Tablet by mouth 2 times daily for 90 days. Reorder 01/16/2023 01/28/2023 tiZANidine (ZANAFLEX) 4 mg Oral TabletIndications:Thoracic spine pain,Age related osteoporosis, unspecified pathological fracture presence,Vitamin D deficiency,Acute low back pain, unspecified back pain laterality, unspecified whether sciatica present,Protrusion of intervertebral disc of lumbosacral region Take 1 Tablet by mouth nightly as needed. Reorder 01/23/2023 01/28/2023 Cholecalciferol, Vitamin D3, 50 mcg (2,000 unit) Oral CapsuleIndications:Age related osteoporosis, unspecified pathological fracture presence,Vitamin D deficiency Take 1 Capsule by mouth daily. Cancelled by 01/23/2023 01/28/2023 documented as of this encounter Additional Health Concerns Assessment Noted Time A fall risk assessment has been complete d for the patient 07/28/2022 8:48 AM EDT documented as of this encounter Care Teams Membership Administrator Relationship Specialty Start Date End Date Palma Jj DO [address] [place] [id number] PCP - General Family Medicine 07/14/22 Geraldine Whiteside RN Heel Seat Trimmer 01/09/23 03/05/23 documented as of this encounter
--- OUTSIDE RECORDS SUMMARY | 2024-03-27 14:58 | XMS_ITS | Encounter Summary ---
Author Organization [facility] Address [address] [place] [address] Care Team Providers Care Cyanide Case Hardener Name Role Phone Palma Jj DO Primary Care Provider + [phone] Geraldine Whiteside RN Unavailable Unavailable Reason for Visit * Reason Onset Date Comments Appointment Needed 01/26/2023 With Geraldine narayan Medication Management 01/26/2023 Questions about multiple meds. Encounter Details Date Type Department Care Team (Late st Contact Info) Description 01/26/2023 Telephone [facility] [address] [place] [address] Palma Jj, DO [address] [place] [address] Appointment Needed (With Geraldine Whiteside); Medication Management (Questions about multiple meds. ) Social History Tobacco Use Types Packs/Day Years [...] Date Recorded PHQ-2 Total Score 0 11/07/2022 [facility] - Occupational Stress [...] No 11/07/2022 8:01 AM EDT Tomi Slaughter ASHLEY knutsonElver * Because of a physical, mental or emotional condition, does this person have difficulty doing errands alone such as visiting a doctor's office or shopping? Answer Date of Assessment Author No 11/07/2022 8:01 AM EDT Tomi SlaughterASHLEYElver documented as of this encounter Mental Status * Because of a physical, mental or emotional condition, does this person have serious difficulty concentrating, remembering or making decisions? Answer Entry Date Author No 11/07/2022 8:01 AM EDT Tomi SlaughterASHLEYElver documented in this encounter Miscellaneous Notes * Telephone Encounter - Geraldine Whiteside RN - 01/28/2023 8:56 AM EDT I discussed with her just now, thanks! * Telephone Encounter - Ayla Quarles MA - 01/28/2023 8:44 AM EDT Can you make her aware of this when she comes in? I tried to call her but she didn't answer. * Telephone Encounter - Palma Jj DO - 01/28/2023 7:45 AM EDT Tizanidine is a muscle relaxer. Celebrex is an anti-inflammatory medication. They are not the same medication. If she would like to discuss these we can get her scheduled for a telephone or in personvisit to discuss. Palma Jj DO Family Medicine 01/28/2023 * Telephone Encounter - Geraldine Whiteside RN - 01/26/2023 3:05 PM EDT Patient has medication questions, asking why did I get celebrex and tizanidine both, aren't they the same? Please advise * Telephone Encounter - Austin Velázquez - 01/26/2023 9:56 AM EDT Select the most appropriate reason for this telephone message: Medication Management/Problem Who is calling? Patient What medication(s) do you have concerns about: several different meds. Prescribing provider: Not sure. What are your concerns/request: Questions about different medications. Desired outcome: Other Please call Pt. Last appointment date: 12-11-22 Pharmacy: n/a Additional notes: Pt. was prescribed a medication by a different doctor and the Pt. thinks that it may be the same medication that she is already taking and wants to know if it is or not. The Rx is celebrex, 200 mg's Tizanidine 4 mg's * Telephone Encounter - Austin Velázquez - 01/26/2023 9:53 AM EDT Select the most appropriate reason for this telephone message: Appointment Needed Appointment Requested By: Patient Provider Preference: [facility] Type of Appt Needed: Other Help with food stamps. Detailed Reason for Appt: Assistance getting signed-up for food stamps. Requested Timeframe: Other Thursday would work best for appt. day and time. Reason Scheduling Assistance is Needed: Call Center not permitted to schedule Additional Notes: documented in this encounter Plan of Treatment Upcoming Encounters Date Type Department Care Team (Late st Contact Info) Description 05/16/2024 9:30 AM EST Office Visit [facility] [address] [place] [phone] Gilda Francis PA [address] [place] [address] documented as of this encounter [...] UMA MICHELLE to have help getting new [place] plan by end of February 2023 General Yes Geraldine Whiteside RN Stay Tobacco Free Lifestyle No Oralia Merida CCMA documented as of this encounter Visit Diagnoses Not on filedocumented in this encounter Additional Health Concerns Assessment Noted Time A fall risk assessment has been complete d for the patient 07/28/2022 8:48 AM EDT documented as of this encounter Care Teams Cyanide Case Hardener Relationship Specialty Start Date End Date Palma Jj DO [employer] [place] [id number] PCP - General Family Medicine 07/14/22 Geraldine Whiteside RN Acid Tank Cleaner 01/09/23 03/05/23 documented as of this encounter
--- OUTSIDE RECORDS SUMMARY | 2024-03-27 14:58 | XMS_ITS | Encounter Summary ---
Author [place] [address] Care Team Providers Care Warehouse Insulation Worker Name Role Phone Palma Jj DO Primary Care Provider + [phone] Encounter Details Date Type Department Care Team (Late st Contact Info) Description 03/17/2023 9:00 AM EST Telemedicine [facility] [address] [place] [id number] Ramandeep Noriega, BUZZSAW OPERATOR [address] [place] [address] URI, acute (Primary Dx) Social History Tobacco Use Types [...] Date Recorded PHQ-2 Total Score 0 11/07/2022 [facility] [place] [facility] Occupat ional Health - Occupational Stress [...] Refills Last Filled Start Date End Date azithromycin (ZITHROMAX) 250 mg Oral TabletIndications: URI, acute Take 2 tablets (500 mg) on Day 1, followed by 1 tablet (250 mg) once daily on Days 2 through 5. 6 Tablet 03/17/2023 documented in this encounter Progress Notes * Ramandeep Noriega, PATRICIA - 03/17/2023 9:00 AM EST Assessment Diagnoses and all orders for this visit: URI, acute - azithromycin (ZITHROMAX) 250 mg Oral Tablet; Take 2 tablets (500 mg) on Day 1, followed by 1 tablet (250 mg) once daily on Days 2 through 5. Dispense: 6 Tablet; Refill: 0 Patient aware that this is a limited exam given visit through telephone. Recommended an in person visit give the multitude of symptoms but she was unable to do that today. Will treat for URI but aware there may be some viral component to her symptoms. Reviewed home care and symptomatic care and encouraged a close in person followup if she doesn't feel any better or feels worse. Progress Note: There were no vitals filed for this visit. UBJECTIVE: No chief complaint on file. Patient presented today for acute care visit with a telephone visit. Patient is aware that this visit/encounter is replacing a face to face office service and is billable under applicable telephone visit billing rules per their insurance and is being imitated by the patient either through a direct scheduled telephone visit or after hours page to the office. Patient is aware that a telephone visit does not replace a [id number] exam and further services may be necessary. I advised the patient that we are conducting her telephone visit through our office in a private space. Patient had no questions prior to initiation of the visit and provided verbal consent to proceed. HPI: Scheduled as a vv, pt was unable to connect therefore switched to telephone visit. Reports sore throat past few days, w/ nasal congestion, drainage, congested, productive cough. No sob or wheezing. Has had fever max 103. Review of Systems Constitutional: Positive for fatigue and fever. HENT: Positive for congestion and sore throat. Respiratory: Positive for cough. Negative for shortness of breath and wheezing. Cardiovascular: Negative for chest pain, palpitations and leg swelling. Gastrointestinal: Negative for abdominal pain. Musculoskeletal: Positive for myalgias. Skin: Negative for rash and wound. Neurological: Positive for headaches. Hematological: Negative for adenopathy. Does not bruise/bleed easily. OBJECTIVE: Physical Exam Pulmonary: Effort: Pulmonary effort is normal. Neurological: Mental Status: She is alert and oriented to person, place, and time. documented in this encounter Plan of Treatment Upcoming Encounters Date Type Department Care Team (Late st Contact Info) Description 05/16/2024 9:30 AM EST Office Visit [facility] [address] [place] [address] Gilda Francis PA [address] [place] [address] documented as of this encounter [...] MIGUEL ANGEL to have help getting new [place] plan by end February 2023 General Yes Geraldine Whiteside RN Stay Tobacco Free Lifestyle No Oralia Merida CCMA documented as of this encounter Visit Diagnoses Diagnosis URI, acute- Primary Acute upper respiratory infections of unspecified site documented in this encounter Additional Health Concerns Assessment Noted Time A fall risk assessment has been complete d for the patient 07/28/2022 8:48 AM EDT documented as of this encounter Care Teams Warehouse Insulation Worker Relationship Specialty Start Date End Date Palma Jj DO [employer] [place] [id number] PCP - General Family Medicine 07/14/22 documented as of this encounter"
--- OUTSIDE RECORDS SUMMARY | 2024-03-27 14:58 | XMS_ITS | Encounter Summary ---
Author Organization [facility] Address [address] [place] [address] Care Team Providers Care Integration Manager Name Role Phone Palma Jj DO Primary Care Provider + [phone] Geraldine Whiteside RN Unavailable Unavailable Reason for Referral * In Office Procedure (Routine) - Closed Specialty Diagnoses / Procedures Referred By Contac t Referred To Contact Orthopedic Surgery Diagnoses Protrusion of intervertebral disc of lumbosacral region Procedures [facility] PROCEDURE UNDER FLUORO Miky Webb MD [address] [place] [address] Phone: tel: fax: [facility] [address] [facility] [address] [place] [address] Phone: tel: fax: Referral ID Status Reason Start Date Expiration Date Visits Re quested Visits Authorized [id number] Closed 01/23/2023 01/23/2024 1 1 * In Office Procedure (Routine) - Closed Specialty Diagnoses / Procedures Referred By Contac t Referred To Contact Diagnoses Age related osteoporosis, unspecified pathological fracture presence Vitamin D deficiency Procedures [facility] MEDICATION/PROCEDURE AUTH Miky Webb MD [address] [facility] [address] [place] [address] Phone: tel: fax: Referral ID Status Reason Start Date Expiration Date Visits Re quested Visits Authorized [id number] Closed 01/23/2023 01/23/2024 1 1 Reason for Visit * Reason Comments Pain Encounter Details Date Type Department Care Team (Latest Contact Info) Description 01/23/2023 10:30 AM EDT Office Visit Danny[facility]remy [facility] [address] [place] [address] Miky Webb MD [address] [facility] [address] [place] [address] Thoracic spine pain (Primary Dx); Age related osteoporosis, unspecified pathological fracture presence; Vitamin D deficiency; Acute low back pain, unspecified back pain laterality, unspecified whether sciatica present; L5 S1 Protrusion of intervertebral disc of lumbosacral region Social History Tobacco Use Types Packs/Day Years [...] Date Recorded PHQ-2 Total Score 0 11/07/2022 [facility] [place] of Occupat ional Health - Occupational Stress [...] place to sleep or slept in a skilled nursing (including now)? No 11/12/2022 Comments No Sex [...] Refills Last Filled Start Date End Date Cholecalciferol, Vitamin D3, 50 mcg (2,000 unit) Oral CapsuleIndications:A ge related osteoporosis, unspecified pathological fracture presence,Vitamin D deficiency Take 1 Capsule by mouth daily. 90 Capsule 2 01/23/2023 3 ergocalciferol (VITAMIN D) 1,250 mcg (50,000 unit) Oral CapsuleIndications:A ge related osteoporosis, unspecified pathological fracture presence,Vitamin D deficiency Take 1 Capsule by mouth once a week. Take 1 Capsule by mouth twice a week. 24 Capsule 01/23/2023 3 celecoxib (CELEBREX) 200 mg Oral CapsuleIndications:T horacic spine pain,Age related osteoporosis, unspecified pathological fracture presence,Vitamin D deficiency,Acute low back pain, unspecified back pain laterality, unspecified whether sciatica present,Protrusion of intervertebral disc of lumbosacral region Take 1 Capsule by mouth 2 times daily for 30 days. 30 Capsule 1 01/23/2023 3 tiZANidine (ZANAFLEX) 4 mg Oral TabletIndications:Th oracic spine pain,Age related osteoporosis, unspecified pathological fracture presence,Vitamin D deficiency,Acute low back pain, unspecified back pain laterality, unspecified whether sciatica present,Protrusion of intervertebral disc of lumbosacral region Take 1 Tablet by mouth nightly as needed. 30 Tablet 01/23/2023 3 documented in this encounter Progress Notes * Miky Webb MD - 01/23/2023 10:30 AM EDT Miky Webb MD [facility] [phone] Patient is a 77 y.o. year old referred for bone health assessment. Denies new injury. Referred by:Dr. Oh Dexa scan: Yes That was told: Osteoporosis Family history of Osteoporosis: No Vitamin D lab drawn: No Vitamin D supplement: Yes Calcium supplement: No Height loss: No Smoker: No former Fracture in the last 5-10 years: No Previous Osteoporosis medications: Review of Systems All other systems reviewed and are negative. Vitals: Ht: 5' Wt: 164 lbs General Exam: Pt is alert and oriented x 3 and in no acute distress. Gait is with a limp. Mood and affect are appropriate. HEENT Normocephalic. Chest: Clear to auscultation Cardiovascular: Regular rate and rhythm No murmur Extremities: No varicosities No edema Neurologic: Normal sensation light touch. DTR Symmetric Yes Musculoskeletal: Posture Good/Poor: good Thoracic Normal Curve Yes MMT Lower extremity symmetric Neck ROM is Normal NSAIDS pain at extremes. Data: Thoracic Xray- normal study Dexa Scan- Reviewed Independently Assessment & Plan: Diagnoses and all orders for this visit: Thoracic spine pain - XR THORACIC SPINE AP AND LATERAL; Future Age related osteoporosis, unspecified pathological fracture presence - ergocalciferol (VITAMIN D) 1,250 mcg (50,000 unit) Oral Capsule; Take 1 Capsule by mouth once a week. Take 1 Capsule by mouth twice a week. Dispense: 24 Capsule; Refill: 0 - [facility] MEDICATION/PROCEDURE AUTH Vitamin D deficiency - ergocalciferol (VITAMIN D) 1,250 mcg (50,000 unit) Oral Capsule; Take 1 Capsule by mouth once a week. Take 1 Capsule by mouth twice a week. Dispense: 24 Capsule; Refill: 0 - [facility] MEDICATION/PROCEDURE AUTH Acute low back pain, unspecified back pain laterality, unspecified whether sciatica present L5 S1 Protrusion of intervertebral disc of lumbosacral region - [facility] PROCEDURE UNDER FLUORO Bone health assessment completed today. Thoracic xray reviewed, T-score and BMD results explained to patient. Recommend prolia, Vitamin D load then 5k qd, dietary calcium 1200 a day. Weight bearing exercise 25 minutes a day. Fall prevention as discussed. Get L5S1 EVAN. I covered risks, benefits, alternative treatment options and rationale for the problem. All this was reviewed with a plastic model for illustrative purposes. The patient had the opportunity to ask questions, all of which were answered in turn. The patient expressed understanding and the desire to proceed. Remain active as tolerated advance HEP. OV 3 weeks Miky Webb MD Spine and Bone [facility] [phone] documented in this encounter Plan of Treatment Upcoming Encounters Date Type Department Care Team (Late st Contact Info) Description 05/16/2024 9:30 AM EST Office Visit [facility] [address] [place] [address] Gilda Francis PA [address] [place] [address] documented as of this encounter Goals Goal Patient Goal Type Associated Problems Recent Progress Patient-Stated? Author Blood Pressure < 140/90 Blood Pressure 130/90(2023 10:29 AM EDT) No Palma Jj, DO Patient will take her blood sugar once a day for a week in the morning, and report the sugars back to provider General On track( 023 10:50 AM EDT) Yes Geraldine Whiteside, UMA Pay off [facility] by Spring 2023 General On track( 023 8:25 AM EDT) Yes Geraldine Whiteside RN Note: -01/28/23 [facility] bill is 120 dollars. Called, no payment assistance available. Continue to pay on it 20 dollars monthly to pay off by Spring 2023 documented as of this encounter Results * XR THORACIC SPINE AP AND LATERAL (01/23/2023 10:40 AM EDT) Narrative GenericuserPrashant - 01/23/2023 10:40 AM EDT Please see physician's note from office encounter for x-ray imaging result Miky Webb MD IMG DIAGNOSTIC IMAGING OR DERABLES Final Result documented in this encounter Visit Diagnoses Diagnosis Thoracic spine pain- Primary Pain in thoracic spine Age related osteoporosis, unspecified pathological fracture presence Vitamin D deficiency Unspecified vitamin D deficiency Acute low back pain, unspecified back pain laterality, unspecified whether sciatica present L5 S1 Protrusion of intervertebral disc of lumbosacral region Thoracic spine pain Pain in thoracic spine documented in this encounter Historical Medications * This list may reflect changes made after this encounter. cholecalciferol, vitamin D3, 10 mcg (400 unit) Oral Capsule Take 1 Tablet by mouth daily. 01/28/2023 added in this encounter Orders Nursing Count Last Ordered Date First Orde red Date [facility] MEDICATION/PROCEDURE AUTH 01/09 [facility] PROCEDURE UNDER FLUORO 1 023 documented in this encounter Additional Health Concerns Assessment Noted Time A fall risk assessment has been complete d for the patient 07/28/2022 8:48 AM EDT documented as of this encounter Care Teams Integration Manager Relationship Specialty Start Date End Date Palma Jj DO [address] [place] [address] PCP - General Family Medicine 07/14/22 Geraldine Whiteside, RN Bottom Cager 01/09/23 03/05/23 documented as of this encounter
--- OUTSIDE RECORDS SUMMARY | 2024-03-27 14:58 | XMS_ITS | Encounter Summary ---
Author Organization [place] [address] Care Team Providers Care Ehs Engineer Name Role Phone Palma Jj DO Primary Care Provider + [phone] Geraldine Whiteside RN Unavailable Unavailable Reason for Visit * Reason Onset Date Comments CM- Longitudinal Continued 01/26/2023 CM- Telephonic Outreach 01/26/2023 CM-Resource Coordination 01/26/2023 Encounter Details Date Type Department Care Team (Latest Contact Info) Description 01/26/2023 Patient Outreach [facility] [address] [place] [address] Geraldine Whiteside, UMA CM- Longitudinal Continued; CM- Telephonic Outreach; CM-Resource Coordination Social History Tobacco Use Types Packs/Day Years [...] Date Recorded PHQ-2 Total Score 0 11/07/2022 [facility] [place] of Occupat ional Health - Occupational Stress [...] place to sleep or slept in a retirement (including now)? No 11/12/2022 Comments No Sex [...] in this encounter Progress Notes * Geraldine Whiteside RN - 01/26/2023 3:10 PM EDT Images from the original note were not included. Assessment: Patient presents today via phone call wanting to see Office Relief Mate (OCC). Needs help looking through her papers she received in the mail. Doesn't understand them, but says they pertain to Medicaid. Unsure of what exactly she is needing assistance with. Scheduled her for 01/28/23 to help her. OCCvisitType: Telephonic Education/handouts: Education: not applicable Handouts: No handouts provided MyChart already active and access confirmed with patient. Goals: Goals Addressed This Visit's Progress Patient will turn her SNAP application into the DCBS in [facility] and obtain food assistance by the end of 2022 (pt-stated) 01/26/23 Stating I have a bunch of papers I need you to look at that I got in the mail about this Next Steps: Patient will follow up with care coordination on 01/28/23 at 0900 documented in this encounter Plan of Treatment Upcoming Encounters Date Type Department Care Team (Late st Contact Info) Description 05/16/2024 9:30 AM EST Office Visit [facility] [address] [place] [address] Gilda Francis PA [address] [place] [address] documented as of this encounter Goals Goal Patient Goal Type Associated Problems Recent Progress Patient-Stated? Author Blood Pressure < 140/90 Blood Pressure 130/90(2023 10:29 AM EDT) No Palma Jj DO Patient will take her blood sugar once a day for a week in the morning, and report the sugars back to provider General On track( 023 10:50 AM EDT) Yes Geraldine Whiteside, RN documented as of this encounter Visit Diagnoses Diagnosis Encounter for support and coordination of transition of care- Primary documented in this encounter Additional Health Concerns Assessment Noted Time A fall risk assessment has been complete d for the patient 07/28/2022 8:48 AM EDT documented as of this encounter Care Teams Ehs Engineer Relationship Specialty Start Date End Date Palma Jj [place] [address] PCP - General Family Medicine 07/14/22 Geraldine Whiteside, RN Relief Mate 01/09/23 03/05/23 documented as of this encounter
--- OUTSIDE RECORDS SUMMARY | 2024-03-27 14:58 | XMS_ITS | Encounter Summary ---
Author Organization [facility] [place] [address] Care Team Providers Care Diesel Mechanic Construction Name Role Phone Palma Jj DO Primary Care Provider + [phone] Geraldine Whiteside RN Unavailable Unavailable Encounter Details Date Type Department Care Team (Late st Contact Info) Description 01/16/2023 Orders Only [facility] [address] [place] [address] Palma Jj DO [address] [place] [id number] GERD without esophagitis (Primary Dx) Social History Tobacco Use Types [...] Date Recorded PHQ-2 Total Score 0 11/07/2022 [facility] [place] of Occupat ional Health - Occupational Stress [...] times daily for 90 days. 180 Tablet 01/16/2023 01/28/2023 documented in this encounter Plan of Treatment Upcoming Encounters Date Type Department Care Team (Late st Contact Info) Description 05/16/2024 9:30 AM EST Office Visit [facility] [address] [place] [phone] Gilda Francis PA [address] [place] [address] documented as of this encounter Goals Goal [...] this encounter Visit Diagnoses Diagnosis GERD without esophagitis- Primary Esophageal reflux documented in this encounter Additional Health Concerns Assessment Noted Time A fall risk assessment has been complete d for the patient 07/28/2022 8:48 AM EDT documented as of this encounter Care Teams Diesel Mechanic Construction Relationship Specialty Start Date End Date Palma Jj DO [address] [place] [id number] PCP - General Family Medicine 07/14/22 Geraldine Whiteside, RN X Ray Operator 01/09/23 03/05/23 documented as of this encounter
--- OUTSIDE RECORDS SUMMARY | 2024-03-27 14:58 | XMS_ITS | Encounter Summary ---
Author Organization [place] [address] Care Team Providers Care Cnc Maintenance Technician Name Role Phone Palma Jj DO Primary Care Provider + [phone] Reason for Visit * Reason Onset Date Comments Medication Refill 12/22/2022 Encounter Details Date Type Department Care Team (Late st Contact Info) Description 12/22/2022 Refill [facility] [place] [address] [address] [place] [address] [address] [place] [address] Medication Refill Social History Tobacco Use [...] Date Recorded PHQ-2 Total Score 0 11/07/2022 [facility] [place] of Occupat ional Health - Occupational Stress [...] ia Take 1 Tablet by mouth daily. 90 Tablet 12/23/2022 3 ergocalciferol (DRISDOL) 1,250 mcg (50,000 unit) Oral Capsule Take 1 Capsule by mouth once a week. 12 Capsule 3 12/23/2022 3 loratadine-pseudoe phedrine (ALLERGY RELIEF D-24HR) 10-240 mg Oral Tablet Sustained Release 24 hrIndications:Seas onal allergic rhinitis due to pollen Take one tablet daily 30 Tablet 2 12/23/2022 3 documented in this encounter Plan of Treatment Upcoming Encounters Date Type Department Care Team (Late st Contact Info) Description 05/16/2024 9:30 AM EST Office Visit [facility] [address] [place] [address] Gilda Francis PA [address] [place] [address] documented as of this encounter Goals Goal [...] as of this encounter Visit Diagnoses Diagnosis Seasonal allergic rhinitis due to pollen Hypercholesterolemia Pure hypercholesterolemia documented in this encounter Discontinued Medications Medication Sig Discontinue Reason Start Date End Da te ALLERGY RELIEF D-24HR 10-240 mg Oral Tablet Sustained Release 24 hrIndications:Seasonal allergic rhinitis due to pollen TAKE 1 TABLET BY MOUTH EVERY DAY NOT COVERED Reorder 04/23/2022 12/22/2022 ergocalciferol (DRISDOL) 1,250 mcg (50,000 unit) Oral Capsule TAKE 1 CAPSULE BY MOUTH ONE TIME PER WEEK Reorder 08/01/2022 12/22/2022 atorvastatin (LIPITOR) 10 mg Oral TabletIndications:Hyperc holesterolemia TAKE 1 TABLET BY MOUTH EVERY DAY Reorder 10/28/2022 12/22/2022 documented as of this encounter Additional Health Concerns Assessment Noted Time A fall risk assessment has been complete d for the patient 07/28/2022 8:48 AM EDT documented as of this encounter Care Teams Cnc Maintenance Technician Relationship Specialty Start Date End Date Palma Jj DO [address] [place] [id number] PCP - General Family Medicine 07/14/22 documented as of this encounter
--- OUTSIDE RECORDS SUMMARY | 2024-03-27 14:58 | XMS_ITS | Encounter Summary ---
Author Organization [place] [address] Care Team Providers Care Training Technician Name Role Phone Palma Jj DO Primary Care Provider + [phone] Reason for Visit * Reason Onset Date Comments Care Transition 01/07/2023 CM- Telephonic Outreach 01/07/2023 CM-Resource Coordination 01/07/2023 Encounter Details Date Type Department Care Team (Latest Contact Info) Description 01/07/2023 Patient Outreach [facility] [address] [place] [address] Geraldine Whiteside, senior it business analyst; CM- Telephonic Outreach; CM-Resource Coordination Social History [...] Date Recorded PHQ-2 Total Score 0 11/07/2022 [facility] [place] of Occupat ional Health - Occupational Stress [...] Progress Notes * Geraldine Whiteside RN - 01/07/2023 11:13 AM EDT Patient Outreach Attempted to contact patient regarding setting up an appointment with Gas Leak Tester related to amessage she left yesterday. Wants help applying to SNAP . Outcome: Unable to reach patient by phone HIPAA compliant voicemail left Next outreach attempt will be 01/08/23 documented in this encounter Plan of Treatment Upcoming Encounters Date Type Department Care Team (Late st Contact Info) Description 05/16/2024 9:30 AM EST Office Visit [facility] [address] [place] [phone] Gilda Francis PA [address] [place] [address] documented as of this encounter Goals Goal [...] as of this encounter Care Teams Training Technician Relationship Specialty Start Date End Date [place] [address] PCP - General Family Medicine 07/14/22 documented as of this encounter
--- OUTSIDE RECORDS SUMMARY | 2024-03-27 14:58 | XMS_ITS | Encounter Summary ---
Author Organization [facility] Address [facility] [place] [address] Care Team Providers Care Cheese Cutter Name Role Phone Palma Jj DO Primary Care Provider + [phone] Reason for Referral * Consultation (Routine) - Closed Specialty Diagnoses / Procedures Referred By Contac t Referred To Contact Diagnoses Spinal stenosis of lumbar region without neurogenic claudication Palma Jj DO [address] [place] [address] Phone: tel: fax: [place] [address] [place] [address] Phone: tel: fax: Referral ID Status Reason Start Date Expiration Date V isits Requested Visits Authorized [id number] Closed Second Opinion 03/26/2023 03/25/2024 99 99 Encounter Details Date Type Department Care Team (Late st Contact Info) Description 03/26/2023 Orders Only [facility] [place] [phone] Palma Jj DO [address] [place] [address] Spinal stenosis of lumbar region without neurogenic claudication (Primary Dx) Social History Tobacco Use Types [...] Date Recorded PHQ-2 Total Score 0 11/07/2022 [facility] [place] of Occupat ional Health - Occupational Stress [...] EST Office Visit [facility] [address] [place] [phone] Gilda Francis PA [address] [place] [address] Scheduled Referrals Name Type Priority Associated Diagnoses Orde r Schedule AMB REFERRAL TO [facility]INE [facility] Outpatient Referral Routine Spinal stenosis of lumbar region without neurogenic claudication Ordered: 03/26/2023 documented as of this encounter Goals Goal [...] UMA MICHELLE to have help getting new [place] plan by end February 2023 General Yes Geraldine Whiteside RN Stay Tobacco Free Lifestyle No Oralia Merida CCMA documented as of this encounter Visit Diagnoses Diagnosis Spinal stenosis of lumbar region without neurogenic claudication- Primary Spinal stenosis, lumbar region, without neurogenic claudication documented in this encounter Additional Health Concerns Assessment Noted Time A fall risk assessment has been complete d for the patient 07/28/2022 8:48 AM EDT documented as of this encounter Care Teams Cheese Cutter Relationship Specialty Start Date End Date Palma Jj DO [address] [place] [id number] PCP - General Family Medicine 07/14/22 documented as of this encounter
--- OUTSIDE RECORDS SUMMARY | 2024-03-27 14:58 | XMS_ITS | Encounter Summary ---
Author Organization [place] [address] Care Team Providers Care Cigarette Package Examiner Name Role Phone Palma Jj DO Primary Care Provider + [phone] Geraldine Whiteside RN Unavailable Unavailable Encounter Details Date Type Department Care Team (Late st Contact Info) Description 01/23/2023 Orders Only [facility] [place] [address] [place] [address] Eileen London, PharmD Social History Tobacco Use Types Packs/Day Years [...] Date Recorded PHQ-2 Total Score 0 11/07/2022 [facility] [place] of Occupat ional Health - Occupational Stress [...] Office Visit [facility] [address] [place] [phone] Gilda Francis PA [address] [place] [address] documented as of this encounter [...] documented as of this encounter Care Teams Cigarette Package Examiner Relationship Specialty Start Date End Date Palma Jj DO [address] [place] [address] PCP - General Family Medicine 07/14/22 Geraldine Whiteside, RN Parachute Rigger 01/09/23 03/05/23 documented as of this encounter
--- OUTSIDE RECORDS SUMMARY | 2024-03-27 14:58 | XMS_ITS | Encounter Summary ---
Author Organization [facility] Address [address] [place] [address] Care Team Providers Care Child Advocate Name Role Phone Palma Jj DO Primary Care Provider + [phone] Geraldine Whiteside RN Unavailable Unavailable Encounter Details Date Type Department Care Team (Latest Contact Info) Description 01/23/2023 10:45 AM EDT Ancillary Procedure [facility] [address] [facility] [address] [place] [address] Miky Webb MD [address] [place] [address] Thoracic spine pain Social History Tobacco Use Types Packs/Day [...] Date Recorded PHQ-2 Total Score 0 11/07/2022 [facility] [place] of Occupat ional Health - Occupational Stress [...] EST Office Visit [facility] [address] [place] [phone] Gilda Francis PA [address] [place] [address] documented as of this encounter [...] Whiteside RN documented as of this encounter Procedures Procedure Name Priority Date/Time Associated Diagnosis Comments XR THORACIC SPINE AP AND LATERAL Routine 01/23/2023 10:40 AM EDT Thoracic spine pain documented in this encounter Results * XR THORACIC SPINE AP AND LATERAL (01/23/2023 10:40 AM EDT) Narrative Genericuser, Audit - 01/23/2023 10:40 AM EDT Please see physician's note from office encounter for x-ray imaging result Miky Webb MD IMG DIAGNOSTIC IMAGING OR DERABLES Final Result documented in this encounter Visit Diagnoses Diagnosis Thoracic spine pain Pain in thoracic spine documented in this encounter Additional Health Concerns Assessment Noted Time A fall risk assessment has been complete d for the patient 07/28/2022 8:48 AM EDT documented as of this encounter Care Teams Child Advocate Relationship Specialty Start Date End Date Palma Jj DO [address] [place] [address] PCP - General Family Medicine 07/14/22 Geraldine Whiteside, RN Barrel Dedenting Machine Operator 01/09/23 03/05/23 documented as of this encounter
--- OUTSIDE RECORDS SUMMARY | 2024-03-27 14:58 | XMS_ITS | Encounter Summary ---
Author Organization [facility] Address [address] [place] [address] Care Team Providers Care X Ray Control Equipment Repairer Name Role Phone Parviz Palma Pyle DO Primary Care Provider + [phone] Geraldine Whiteside RN Unavailable Unavailable Reason for Referral * In Office Procedure (Routine) - Closed Specialty Diagnoses / Procedures Referred By Ramona mcdaniel Referred To Contact Orthopedic Surgery Diagnoses Spinal stenosis of lumbar region, unspecified whether neurogenic claudication present Neuroforaminal stenosis of lumbar spine Lumbar pain Procedures [facility]TH[facility]CY PROCEDURE UNDER FLUORO Dylon Corrales MD [address] [place] [address] Phone: tel: fax: [facility] [address] [place] [address] Phone: tel: fax: Referral ID Status Reason Start Date Expiration Date Visits Re quested Visits Authorized [id number] Closed 02/13/2023 02/13/2024 1 1 Reason for Visit * Reason Comments Pain Encounter Details Date Type Department Care Team (Late Contact Info) Description 02/13/2023 9:00 AM EDT Office Visit [facility] [address] [place] [address] Dylon Corrales MD [address] [place] [address] Spinal stenosis of lumbar region, unspecified whether neurogenic claudication present (Primary Dx); Neuroforaminal stenosis of lumbar spine; Lumbar pain Social History Tobacco Use Types Packs/Day [...] Date Recorded PHQ-2 Total Score 0 11/07/2022 [facility] [place] of Occupat ional Health - Occupational Stress [...] place to sleep or slept in a half-way (including now)? No 11/12/2022 Comments No Sex [...] - Inhaled Oxygen Concentration - - Weight 74.4 kg (164 lb) 02/13/2023 9:32 AM EDT Height 152.4 cm (5') 02/13/2023 9:32 AM EDT Body Mass Index 32.03 02/13/2023 9:32 AM EDT documented in this encounter Functional [...] documented in this encounter Progress Notes * Dylon Corrales MD - 02/13/2023 9:00 AM EDT Subjective Stella Hylton is a 77 y.o. female presenting today for Chief Complaint Patient presents with Lower Back - Pain HPI: pt with several months of pain getting worse Worse to stand and walk Uses a stool to do dishes IMAGING: MRI shows the patient have neuroforaminal stenosis at L3-4 and L4-5, severe. L3-4 and to alesser extent L4-5 with stenosis. Multilevel degenerative changes at other levels. Current Medications for Pain: Tylenol is not helpful PT/Chiropractor: Last EVAN/Injection: Pain: /10 ROS: no c/o bowel or bladder function or not c/w spine Patient also describes having numbness in the hands and dropping things. Past Medical History: Diagnosis Date Allergy Arthritis generalized Does use hearing aid bilateral Hyperlipidemia Kidney stone hx of Motion sickness seasick Nephrolithiasis 12/19/2019 Added automatically from request for surgery [id number] Osteopenia Post-operative nausea and vomiting Urinary tract infection frequent UTI's Past Surgical History: Procedure Laterality Date BLADDER TUMOR EXCISION N/A 10/26/2019 cystoscopy, bladder biopsy and fulguration of lesions of bladder; Surgeon: Amari Wheeler MD; Location: [facility] MAIN OR; Service: Urology CATARACT REMOVAL Right 02/28/2019 RIGHT EYE CATARACT EXTRACTION WITH PHACOEMULSIFICATION AND INTRAOCULAR LENS; Surgeon: Conor Ramirez MD; Location: [facility]; Service: Ophthalmology CATARACT REMOVAL Left 03/14/2019 LEFT EYE CATARACT EXTRACTION WITH PHACOEMULSIFICATION AND INTRAOCULAR LENS; Surgeon: Conor Ramirez MD; Location: [facility]; Service: Ophthalmology COLONOSCOPY CYSTOSCOPY Right 11/28/2019 cystoscopy right stent placement, right extracorporeal shock wave lithotripsy; Surgeon: Dinh Wheeler MD; Location: [facility]; Service: Urology HEMORRHOID SURGERY HIP ARTHROPLASTY Right 02/16/2014 RIGHT TOTAL HIP REPLACEMENT; Surgeon: Bruce Oh MD; Location: [facility] OR; Service: Orthopedics HYSTERECTOMY complete LITHOTRIPSY Right 11/28/2019 Surgeon: Amari Wheeler MD; Location: [facility]; Service: Urology LUMBAR DISC SURGERY 11/03/2012 Surgeon: Elza Bautista MD; Location: [facility] MA[facility] OR; Service: TOTAL KNEE ARTHROPLASTY Left 12/28/2018 left knee total replacement; Surgeon: Bruce Oh MD; Location: [facility] OR; Service: Orthopedics URETEROSCOPY Right 01/02/2020 cystoscopy, Right Flexible Ureteroscopy, Retrograde, Stent Exchange, Laser Lithotripsy, Basket Retrieval of stone fragments; Surgeon: Amari Wheeler MD; Location: [facility] OR; Service: Urology Patient with history of surgery by [facility] on her lumbar spine years ago Body mass index is 32.03 kg/m??. Objective GENERAL: The patient is alert and oriented x3, in no acute distress. Mood and affect are appropriate. Gait is heel-toe with no limp or instability. Assistive device used today?: none SPINE: Spinal examination finds the patient to have no deformity. Flexion, extension, rotation and lateral bend of the spine with pain. Nontender with palpation BILATERAL LOWER EXTREMITIES: Bilateral lower extremities with 5/5 motor function throughout. Sensation intact throughout Straight leg raise negative bilateral Patellar tendon reflexes 2+ No clonus. No cyanosis, clubbing or edema and the vasculature is intact. Range of motion of major joints without complaints of pain. ABDOMINAL EXAM: nondistended. Non tender IMPRESSION: Lumbar spinal stenosis ASSESSMENT/PLAN: At this time the patient has significant pain and problems due to the stenosis. I recommended she agrees to a right L3-4 epidural steroid injection. Ultimately the patient is likely to need surgical procedure. This may be all done at 1 setting or may be considered for laminectomy only to see if we can help with her predominant symptoms with more simple surgery. Otherwise she would need to have decompression fusion procedure at least L3-S1. At this time patient has no specific signs of myelopathy but her history is concerning. We will discuss potential for MRI of the neck at next visit. Dylon Corrales MD Parts of this note may have been [...] if the situation occurs. If questions occur about dictation mistakes, please do not hesitate to call our office. The patient was advised to call with any issues or concerns in the future. documented in this encounter Plan of Treatment Upcoming Encounters Date Type Department Care Team (Late st Contact Info) Description 05/16/2024 9:30 AM EST Office Visit [facility] [address] [facility] [place] [address] Gilda Francis PA [address] [place] [address] documented as of this encounter Goals Goal [...] region, unspecified whether neurogenic claudication present- Primary Neuroforaminal stenosis of lumbar spine Lumbar pain Lumbago documented in this encounter Orders Nursing Count Last Ordered Date First Orde red Date [facility] PROCEDURE UNDER FLUORO 1 023 documented in this encounter Additional Health Concerns Assessment Noted Time A fall risk assessment has been complete d for the patient 07/28/2022 8:48 AM EDT documented as of this encounter Care Teams X Ray Control Equipment Repairer Relationship Specialty Start Date End Date Palma Jj DO [address] [place] [id number] PCP - General Family Medicine 07/14/22 Geraldine Whiteside, RN Curriculum Counselor 01/09/23 03/05/23 documented as of this encounter
--- OUTSIDE RECORDS SUMMARY | 2024-03-27 14:58 | XMS_ITS | Encounter Summary ---
Author Organization [facility] Address [address] [place] [address] Care Team Providers Care Channel Lip Stiffener Insoles Name Role Phone ParvizPalma Edenilson DO Primary Care Provider + [phone] Reason for Visit * Reason Comments Follow-up Encounter Details Date Type Department Care Team (Late st Contact Info) Description 03/20/2023 10:15 AM EST Office Visit [facility] [address] [place] [address] Dylon Corrales MD [address] [place] [address] Spinal stenosis of lumbar region, unspecified whether neurogenic claudication present (Primary Dx); DDD (degenerative disc disease), lumbar; Neuroforaminal stenosis of lumbar spine; Osteoporosis, unspecified osteoporosis type, unspecified pathological fracture presence Social History Tobacco Use Types Packs/Day Years [...] Date Recorded PHQ-2 Total Score 0 11/07/2022 [facility] [place] of Occupat ional Health - Occupational Stress [...] - Inhaled Oxygen Concentration - - Weight 72.6 kg (160 lb) 03/20/2023 10:10 AM EST Height 152.4 cm (5') 03/20/2023 10:10 AM EST Body Mass Index 31.25 03/20/2023 10:10 AM EST documented in this [...] Progress Notes * Dylon Corrales MD - 03/20/2023 10:15 AM EST Subjective Stella Hylton is a 77 y.o. female presenting today for Chief Complaint Patient presents with Lower Back - Follow-up HPI: Patient returns the office after epidural steroid injection. It was not helpful. Still has pain in the low back and goes down the right leg to the foot. She has to use a chair in the kitchen to lean on or sit on when she does dishes. She can stand or walk for less than 5 minutes. Last EVAN/Injection: 02/23 Pain: 01/18 ROS: no c/o bowel or bladder function or not c/w spine Past Medical History: Diagnosis Date Allergy Arthritis generalized Does use hearing aid bilateral Hyperlipidemia Kidney stone hx of Motion sickness seasick Nephrolithiasis 12/19/2019 Added automatically from request for surgery [id number] Osteopenia Post-operative nausea and vomiting Urinary tract infection frequent UTI's Past Surgical History: Procedure Laterality Date BLADDER TUMOR EXCISION N/A 10/26/2019 cystoscopy, bladder biopsy and fulguration of lesions of bladder; Surgeon: Amari Wheeler MD; Location: [facility] MAIN OR; Service: Urology CATARACT REMOVAL Right 02/28/2019 RIGHT EYE CATARACT EXTRACTION WITH PHACOEMULSIFICATION AND INTRAOCULAR LENS; Surgeon: Conor Ramirez MD; Location: [facility]; Service: Ophthalmology CATARACT REMOVAL Left 03/14/2019 LEFT EYE CATARACT EXTRACTION WITH PHACOEMULSIFICATION AND INTRAOCULAR LENS; Surgeon: Conor Ramirez MD; Location: [facility]; Service: Ophthalmology COLONOSCOPY CYSTOSCOPY Right 11/28/2019 cystoscopy right stent placement, right extracorporeal shock wave lithotripsy; Surgeon: Dinh Wheeler MD; [facility]; Service: Urology HEMORRHOID SURGERY HIP ARTHROPLASTY Right 02/16/2014 RIGHT TOTAL HIP REPLACEMENT; Surgeon: Bruce Oh MD; [facility]; Service: Orthopedics HYSTERECTOMY complete LITHOTRIPSY Right 11/28/2019 Surgeon: Amari Wheeler MD; [facility]; Service: Urology LUMBAR DISC SURGERY 11/03/2012 Surgeon: Elza Bautista MD; [facility]; Service: TOTAL KNEE ARTHROPLASTY Left 12/28/2018 left knee total replacement; Surgeon: Bruce Oh MD; Location: [facility]; Service: Orthopedics URETEROSCOPY Right 01/02/2020 cystoscopy, Right Flexible Ureteroscopy, Retrograde, Stent Exchange, Laser Lithotripsy, Basket Retrieval of stone fragments; Surgeon: Amari Wheeler MD; Location: [facility]; Service: Urology Body mass index is 31.25 kg/m??. Objective GENERAL: The patient is alert [...] pain. ABDOMINAL EXAM: nondistended. Non tender IMPRESSION: L3-S1 stenosis and neuroforaminal stenosis ASSESSMENT/PLAN: At this time the patient has severe neuroforaminal stenosis at the I believe will not be helped by standard midline laminectomy procedure. I think she is can require interbody cages to increased foraminal height and then undergo decompression. Most recent DEXA scan showed osteoporosis, I would like for her to see Dr. Mervat marks about stronger medication to help with her bone strength prior to us doing a large surgical procedure with hardware. She understands. We will begin her on gabapentin for neuropathic pain. Begin gabapentin for neuropathic pain. Gabapentin 300 mg bid for one week, if no better increase to 600 mg bid Call for severe somnolence or confusion, may adjust timing and dosing. Building up and weaning down the dose of the medicine is discussed.; Dylon Corrales MD Parts of this note [...] EST Office Visit [facility] [address] [place] [phone] Gilda Francis PA [address] [place] [address] documented as of this encounter Goals Goal [...] MICHELLE to have help getting new [place] plan by end February 2023 General Yes Geraldine Whiteside RN Stay Tobacco Free Lifestyle No Oralia Merida CCMA documented as of this encounter Visit Diagnoses Diagnosis Spinal stenosis of lumbar region, unspecified whether neurogenic claudication present- Primary DDD (degenerative disc disease), lumbar Degeneration of lumbar or lumbosacral intervertebral disc Neuroforaminal stenosis of lumbar spine Osteoporosis, unspecified osteoporosis type, unspecified pathological fracture presence documented in this encounter Additional Health Concerns Assessment Noted Time A fall risk assessment has been complete d for the patient 07/28/2022 8:48 AM EDT documented as of this encounter Care Teams Channel Lip Stiffener Insoles Relationship Specialty Start Date End Date Palma Jj DO [employer] [place] [phone] PCP - General Family Medicine 07/14/22 documented as of this encounter
--- OUTSIDE RECORDS SUMMARY | 2024-03-27 14:58 | XMS_ITS | Encounter Summary ---
Author Organization [facility] Address [employer] [place] [address] Care Team Providers Care Software Development Project Manager Name Role Phone Palma Jj DO Primary Care Provider + [phone] Reason for Visit * Reason Onset Date Comments Referral 03/23/2023 [facility] [place] Encounter Details Date Type Department Care Team (Late st Contact Info) Description 03/23/2023 Telephone [facility] [address] [place] [address] Palma Jj DO [address] [place] [address] Referral ([facility]) Social History Tobacco Use Types Packs/Day Years [...] Date Recorded PHQ-2 Total Score 0 11/07/2022 [employer] [place] of Occupat ional Health - Occupational Stress [...] Telephone Encounter - Julianna Lea MA - 03/26/2023 9:49 AM EST [employer] message sent with information * Telephone Encounter - Palma Jj DO - 03/26/2023 9:42 AM EST Oh no problem. Yes. I just placed the referral to spine center. Please provide her the contact information. Palma Jj DO Family Medicine 03/26/2023 * Telephone Encounter - Ayla Quarles MA - 03/26/2023 8:29 AM EST Patient would like the referral for her back, she would like a second opinion. She did not like response she got from another Dr. * Telephone Encounter - Palma Jj DO - 03/25/2023 8:27 AM EST See if you can get more information. Why does she want referral? Palma Jj DO Family Medicine 03/25/2023 * Telephone Encounter - Julianna Lea MA - 03/23/2023 4:51 PM EST Please advise * Telephone Encounter - Janette Ledezma - 03/23/2023 4:41 PM EST Select the most appropriate reason for this telephone message: Referral Request Who is requesting the referral: Patient What type of referral: brain and spine What is the reason / diagnosis for this referral: pain in back and legs Have you been seen by your PCP for this issue: No- suggest the patient schedule an Office Visit forevaluation of the issue Does patient have a preference on a group/provider: Yes (if yes, complete preferred provider info below) Preferred Provider/Group Name: [facility] Smith Preferred Provider/Group Preferred Provider/Group Fax Number: Additional Information: documented in this encounter Plan of Treatment Upcoming Encounters Date Type Department Care Team (Late st Contact Info) Description 05/16/2024 9:30 AM EST Office Visit [facility] [address] [place] [phone] Gilda Francis PA [address] [place] [address] documented as of this encounter [...] MIGUEL ANGEL to have help getting new [place] plan by end of February 2023 General Yes Geraldine Whiteside RN Stay Tobacco Free Lifestyle No Oralia Merida CCMA documented as of this encounter Visit Diagnoses Not on filedocumented in this encounter Additional Health Concerns Assessment Noted Time A fall risk assessment has been complete d for the patient 07/28/2022 8:48 AM EDT documented as of this encounter Care Teams Software Development Project Manager Relationship Specialty Start Date End Date Palma Jj DO [employer] [place] [phone] PCP - General Family Medicine 07/14/22 documented as of this encounter
--- OUTSIDE RECORDS SUMMARY | 2024-03-27 14:58 | XMS_ITS | Encounter Summary ---
Author Organization [place] [address] Care Team Providers Care Process Safety Engineering Technologist Name Role Phone Palma Jj DO Primary Care Provider + [phone] Reason for Visit * Reason Onset Date Comments CM- Longitudinal Continued 03/06/2023 CM- Telephonic Outreach 03/06/2023 CM-Resource Coordination 03/06/2023 Encounter Details Date Type Department Care Team (Latest Contact Info) Description 03/06/2023 Patient Out[place] [facility] [place] [facility] [address] [place] [address] Geraldine Whiteside, UMA CM- Longitudinal Continued; [...] PHQ-2 Total Score 0 11/07/2022 [facility] [place] of Occupat ional Health - Occupational Stress [...] Progress Notes * Geraldine Whiteside RN - 03/06/2023 8:26 AM EDT Images from the original note were not included. Care Management (CM) final visit: Date of longitudinal care coordination initiated: 01/09/23 Date of discharge from care coordination 03/06/23 Reason for discharge: Patient does not want to be in chronic care management anymore, but still wants to be followed but cannot due to billing. Assessment: Patient presents today via phone to cancel her appointment. States she got an injection in her eye yesterday, and cannot make it down here since she cannot see. States she will reschedule, but declined at this time Does want to be followed still due to frequent health needs, but does not wish to participate in chronic care management anymore. Can only add to panel as CCM, but explained OCC is always available to her for any needs she has OCCvisitType: Telephonic Education/handouts: Education: Reinforced previous education with patient on: that Office Linotypist (OCC) will still followup as indicated (monthly or every 3 months per preference) and will still keep her on panel to assist her scheduling before end of open enrollmetn for Medicare to get what she needs Handouts: Patient declined handouts MyChart already active and access confirmed with patient. Goals: Goals Addressed This Visit's Progress Pay off [facility] by Spring 2023 (pt-stated) On track -01/28/23 [facility] bill is 120 dollars. Called, no payment assistance available. Continue to pay on it 20 dollars monthly to pay off by Spring 2023 Will meet with UMA MICHELLE to have help getting new [place] plan by end of February 2023 (pt-stated) Next Steps: Linotypist contact information given / reviewed Reviewed when to call Primary Care Provider (PCP) office, urgent care, or 911 Patient advised to follow up in 1weeks OCC will be available for her to receive help when needed Linotypist will not follow at this time. documented in this encounter Plan of Treatment Upcoming Encounters Date Type Department Care Team (Late st Contact Info) Description 05/16/2024 9:30 AM EST Office Visit [facility] [address] [place] [address] Gilda Francis PA [address] [place] [address] documented as of this encounter [...] UMA MICHELLE to have help getting new [place] plan by end February 2023 General Yes [...] documented as of this encounter Care Teams Process Safety Engineering Technologist Relationship Specialty Start Date End Date Palma Jj DO [employer] [place] [id number] PCP - General Family Medicine 07/14/22 documented as of this encounter
--- OUTSIDE RECORDS SUMMARY | 2024-03-27 14:58 | XMS_ITS | Encounter Summary ---
Author Organization [facility] Address [address] [place] [address] Care Team Providers Care Lab Systems Analyst Name Role Phone Palma Jj DO Primary Care Provider + [phone] Geraldine Whiteside RN Unavailable Unavailable Reason for Visit * Reason Comments Follow-up * In Office Procedure (Routine) - Closed Specialty Diagnoses / Procedures Referred By Ramona t Referred To Contact Orthopedic Surgery Diagnoses Spinal stenosis of lumbar region, unspecified whether neurogenic claudication present Neuroforaminal stenosis of lumbar spine Lumbar pain Procedures [facility] PROCEDURE UNDER FLUORO Dylon Corrales MD [address] [id number] Phone: tel: fax: [facility] [address] [place] [address] Phone: tel: fax: Referral ID Status Reason Start Date Expiration Date Visits Re quested Visits Authorized [id number] Closed 02/13/2023 02/13/2024 1 1 Encounter Details Date Type Department Care Team (Latest Contact Info) Description 02/23/2023 2:45 PM EDT Office Visit [facility] [address] [place] [address] Jason Wright DO [address] [place] [address] Spinal stenosis of lumbar region, unspecified whether neurogenic claudication present (Primary Dx); Neuroforaminal stenosis of lumbar spine; Lumbar radiculopathy Social History Tobacco Use Types Packs/Day [...] Date Recorded PHQ-2 Total Score 0 11/07/2022 [facility] [place] of Occupat ional Health - Occupational Stress [...] of Assessment Author No 11/07/2022 8:01 AM Toim Huggins CCMA * Because of a physical, [...] documented in this encounter Progress Notes * Alexa Up RT - 02/23/2023 2:45 PM EDTSummary: fluoro time fluoro time 25 seconds. * Jason Wright DO - 02/23/2023 2:45 PM EDT Images from the original note were not included. PROCEDURE: Lumbar Selective Transforaminal Epidural Steroid injection under C- arm fluoroscopic guidance INDICATION: Low back pain, Lumbar spine pain LEVEL(s): L3/L4 SIDE: Right INJECTANT: 1. 5 ml 1% Lidocaine 2. 3 ml Omnipaque (1 ml used, 2 ml discarded) 3. 2 ml of Dexamethasone (10mg/ml) with 3 ml of 1% Lidocaine PF ALLERGIES: No known allergies to contrast, iodine, anesthetics, or latex. DATE: 02/23/2023 ORDERING PROVIDER: Dylon Corrales MD Imaging review: I reviewed the patient's lumbar spine MRI dated 11/03/2022 prior to the procedure. Pertinent positive findings include degenerative changes including at L3/L4 where there is severe central stenosis and severe left and moderate right neural foraminal stenosis. Today's procedure is ordered as a right L3/L4 transforaminal injection. A discussion with the patient explaining risks and benefits, including bleeding, infection, worsening of the pain, damage to the area being injected, weakness, allergic reaction to medications, vascular injection, and nerve damage was had. I discussed the possibility of infection that could requiresurgical intervention and/or inpatient hospital admission.The patient's questions about the procedure were answered. After discussion of the risks and benefits of the procedure the patient decided toproceed with the procedure. Risk of lumbar spinal nerve injury were discussed. The patient expressed understanding and desire to proceed. Reportedly the patient has not taken any Coumadin, Aspirin, or Plavix for at least 72 hours prior to the procedure. Time out was performed. The patient was placed in the prone position on the imaging table, and housing development specialist images were performed utilizing the fluoroscope. The skin was marked at the appropriate position, and then the area was cleansed with povidone iodine swabs x4 and ChloraPrep [id number] was allowed to dry and draped in sterilefashion. 5 ml of 1% lidocaine was utilized to infiltrate the skin and underlying muscle along the proposed needle path with a 25g 1.5 inch needle. Ipsilateral oblique images were obtained to visualize the neuroforamen. A 22g 3.5 inch Quincke spinal needle is placed within the posterior aspect of Kambin's triangle (infraneural) under intermittent fluoroscopic imaging. Both fluoroscopic AP and lateral safety views were used to confirm that the needle tip was in the inferior 3rd and posterior aspect of the neuroforamen. Once the needle tip waswithin Kambin's triangle, live fluoroscopy was performed during the passage of Omnipaque --revealing a normal epidurigram. No sign of vascular or intradural uptake was noted on imaging. After negative aspiration for blood or CSF, the steroid mixture was administered slowly over 20-40 seconds. The ne edle was removed without significant bleeding or hematoma formation. The skin was again cleaned with ChloraPrep x 1 which was allowed to dry and a sterile bandage was placed over the site. The patient was able to sit up and stand without significant loss of motor or sensory function, and no reports of headache. The patient tolerated the procedure well without complications. IMPRESSION: Technically successful right L3/L4 transforaminal epidural steroid injection. PLAN: 1. Patient advised not to perform strenuous activities or work for 36 hours. No driving for 3 hoursfollowing the procedure. 2. The patient may restart any medications withheld due to the procedure in 24 hours. 3. Ice or cold compress to bandaged area for 20 minutes upon arriving at home; apply a second time 2 hours later. 4. Patient advised to contact our office for any significant side effects, including possible headache, extremity pain or weakness. 5. The patient will keep the injection site clean and dry for the next 72 hours to prevent infection. The patient expressed understanding. 6. The patient will follow up with Dylon Corrales MD on 03/18/2023. If they experience any issues with today's procedure prior to that visit they will contact my office. Jason Wright DO Sports Medicine, C.A.Q. Board Certified Physical Medicine and Rehabilitation Registered Musculoskeletal Ultrasound, RMSK documented in this encounter Plan of Treatment Upcoming Encounters Date Type Department Care Team (Late st Contact Info) Description 05/16/2024 9:30 AM EST Office Visit [facility] [address] [place] [id number] Gilda Francis PA [address] [place] [address] Scheduled Orders Name Type Priority Associated Diagnoses Orde r Schedule NH NJX AA&/STRD TFRML EPI LUMBAR/SACRAL 1 LEVEL NH Charge Routine Spinal stenosis of lumbar region, unspecified whether neurogenic claudication present Neuroforaminal stenosis of lumbar spine Lumbar radiculopathy Ordered: 02/23/2023 documented as of this encounter Goals Goal [...] body weight General No Oralia Merida CCMA Stay Tobacco Free Lifestyle No Oralia Merida CCMA documented as of this encounter Visit Diagnoses Diagnosis Spinal stenosis of lumbar region, unspecified whether neurogenic claudication present- Primary Neuroforaminal stenosis of lumbar spine Lumbar radiculopathy Thoracic or lumbosacral neuritis or radiculitis, unspecified documented in this encounter Administered Medications Inactive Administered Medications - up to 1 most recent administrations Medication Order MAR Action Action Date Dose Rate Site dexAMETHasone sodium phosphate (DECADRON) solution 20 mg 20 mg, Intraspinal, ONCE, 1 dose, On Thu02/23/23 at 1500, Dx: 1. Spinal stenosis of lumbar region, unspecified whether neurogenic claudication present 2. Neuroforaminal stenosis of lumbar spine 3. Lumbar radiculopathyIndications:Spinal stenosis of lumbar region, unspecified whether neurogenic claudication present,Neuroforaminal stenosis of lumbar spine,Lumbar radiculopathy Given 02/23/2023 2:53 PM EDT 20 mg iohexoL (OMNIPAQUE) injection 3 mL 3 mL, Intraspinal, ONCE, 1 dose, On Thu02/23/23 at 1500, VESICANT , Dx: 1. Spinal stenosis of lumbar region, unspecified whether neurogenic claudication present 2. Neuroforaminal stenosis of lumbar spine 3. Lumbar radiculopathyIndications:Spinal stenosis of lumbar region, unspecified whether neurogenic claudication present,Neuroforaminal stenosis of lumbar spine,Lumbar radiculopathy Given 02/23/2023 2:53 PM EDT 3 mL lidocaine 1% 10 mg/mL (1 %) injection 5 mL 5 mL, Other, ONCE PRN, 1 dose, Starting on Thu02/23/23 at 1443, Until Thu02/23/23 at 1454, Local Anesthesia, Dx: 1. Spinal stenosis of lumbar region, unspecified whether neurogenic claudication present 2. Neuroforaminal stenosis of lumbar spine 3. Lumbar radiculopathyIndications:Spinal stenosis of lumbar region, unspecified whether neurogenic claudication present,Neuroforaminal stenosis of lumbar spine,Lumbar radiculopathy Given 02/23/2023 2:54 PM EDT 5 mL lidocaine 10 mg/mL (1 %) injection (PF) 30 mg 30 mg (3 mL), Intraspinal, ONCE, 1 dose, On Thu02/23/23 at 1500, Dx: 1. Spinal stenosis of lumbar region, unspecified whether neurogenic claudication present 2. Neuroforaminal stenosis of lumbar spine 3. Lumbar radiculopathyIndications:Spinal stenosis of lumbar region, unspecified whether neurogenic claudication present,Neuroforaminal stenosis of lumbar spine,Lumbar radiculopathy Given 02/23/2023 2:54 PM EDT 30 mg documented in this encounter Additional Health Concerns Assessment Noted Time A fall risk assessment has been complete d for the patient 07/28/2022 8:48 AM EDT documented as of this encounter Care Teams Lab Systems Analyst Relationship Specialty Start Date End Date [place] [address] PCP - General Family Medicine 07/14/22 Geraldine Whiteside, RN Insurance Administrator 01/09/23 03/05/23 documented as of this encounter
--- OUTSIDE RECORDS SUMMARY | 2024-03-27 14:58 | XMS_ITS | Encounter Summary ---
Author Organization [facility] Address [address] [place] [address] Care Team Providers Care Turf And Grounds Supervisor Name Role Phone Palma Jj DO Primary Care Provider + [phone] Reason for Visit * Reason Onset Date Comments Medication Refill 03/20/2023 Encounter Details Date Type Department Care Team (Late st Contact Info) Description 03/20/2023 Refill [facility] [address] [place] [address] Dylon Corrales MD [address] [place] [address] Medication Refill Social History Tobacco Use Types [...] Date Recorded PHQ-2 Total Score 0 11/07/2022 [facility] [place] of Occupat ional Health - Occupational [...] place to sleep or slept in a nursing home (including now)? No 11/12/2022 Comments No [...] End Date gabapentin (NEURONTIN) 300 mg Oral Capsule Take 1 capsule by mouth twice a day for 7 days, then increase to 2 capsules by mouth twice a day 120 Capsule 03/20/2023 documented in this encounter Plan of Treatment Upcoming Encounters Date Type Department Care Team (Late st Contact Info) Description 05/16/2024 9:30 AM EST Office Visit [facility] [address] [place] [phone] Gilda Franics PA [address] [place] [address] documented as of this encounter Goals Goal Patient Goal Type Associated Problems Recent Progress Patient-Stated? Author Blood Pressure < 140/90 Blood Pressure 130/90(11/08 10:29 AM EDT) No Palma Jj, DO Patient will take her blood sugar once a day for a week in the morning, and report the sugars back to provider General On track(2022 10:50 AM EDT) Yes Geralidne Whiteside RN Pay off [facility] by [...] UMA MICHELLE to have help getting new [place] plan by end February 2023 General Yes Geraldine Whiteside RN Stay Tobacco Free Lifestyle No Oralia Merida CCMA documented as of this encounter Visit Diagnoses Not on filedocumented in this encounter Additional Health Concerns Assessment Noted Time A fall risk assessment has been complete d for the patient 07/28/2022 8:48 AM EDT documented as of this encounter Care Teams Turf And Grounds Supervisor Relationship Specialty Start Date End Date Palma Jj DO [address] [id number] PCP - General Family Medicine 07/14/22 documented as of this encounter
--- OUTSIDE RECORDS SUMMARY | 2024-03-27 14:58 | XMS_ITS | Encounter Summary ---
Author Organization [place] [address] Care Team Providers Care Jewelry Drill Operator Name Role Phone Palma Jj DO Primary Care Provider + [phone] Geraldine Whiteside RN Unavailable Unavailable Reason for Visit * Reason Onset Date Comments Other 01/07/2023 returning office call Encounter Details Date Type Department Care Team (Late st Contact Info) Description 01/07/2023 Telephone [facility] [address] [place] [address] Geraldine Whiteside, RN Other (returning office call ) Social History Tobacco Use Types Packs/Day [...] Date Recorded PHQ-2 Total Score 0 11/07/2022 [facility] [place] of Occupat ional Health - Occupational Stress [...] Telephone Encounter - Geraldine Whiteside RN - 01/07/2023 11:47 AM EDT Scheduled to assist 01/09/23 at 0830. Has not heard anything about scheduling regarding the orders that were placed after her DEXA to Ortho. No one has reached out to schedule her. OCC was not aware or told of anything or asked to assistwhen orders were placed, or else would have assisted. Please advise * Telephone Encounter - Julianna Lea MA - 01/07/2023 11:31 AM EDT please advise * Telephone Encounter - Rosalva Bruner - 01/07/2023 11:21 AM EDT pt returned office call in regards to SNAP please call and advise documented in this encounter Plan of Treatment Upcoming Encounters Date Type Department Care Team (Late st Contact Info) Description 05/16/2024 9:30 AM EST Office Visit [facility] [address] [place] [address] Gilda Francis PA [address] [place] [address] documented as of this encounter [...] documented as of this encounter Care Teams Jewelry Drill Operator Relationship Specialty Start Date End Date Palma Jj DO [address] [place] [phone] PCP - General Family Medicine 07/14/22 Geraldine Whiteside, RN Gas Worker 01/09/23 03/05/23 documented as of this encounter
--- OUTSIDE RECORDS SUMMARY | 2024-03-27 14:58 | XMS_ITS | Encounter Summary ---
Author Organization [facility] Address [address] [place] [address] Care Team Providers Care Cook Pie Name Role Phone Palma Jj DO Primary Care Provider + [phone] Reason for Visit * Reason Onset Date Comments Medication Refill 12/22/2022 Encounter Details Date Type Department Care Team (Late st Contact Info) Description 12/22/2022 Refill [facility] [address] [place] [address] Palma Jj DO [address] [place] [phone] Medication Refill Social History Tobacco Use Types [...] Date Recorded PHQ-2 Total Score 0 11/07/2022 [facility] [place] of Occupat ional Health - Occupational Stress [...] Assessment Author No 11/07/2022 8:01 AM EDT Toim Slaughter CCMA * Does this person have [...] Filled Start Date End Date lisinopriL (PRINIVIL;ZESTRIL) 10 mg Oral TabletIndications: Essential hypertension Take 1 Tablet by mouth daily. 90 Tablet 2 12/23/2022 04/06/2023 documented in this encounter Plan of Treatment Upcoming Encounters Date Type Department Care Team (Late st Contact Info) Description 05/16/2024 9:30 AM EST Office Visit [facility] [address] [place] [phone] Gilda Francis PA [address] [place] [address] documented as of this encounter [...] Start Date End Da te lisinopriL (PRINIVIL;ZESTRIL) 10 mg Oral TabletIndications:Essenti al hypertension TAKE 1 TABLET BY MOUTH EVERY DAY Reorder 10/07/2022 12/22/2022 documented as of this encounter Additional Health Concerns Assessment Noted Time A fall risk assessment has been complete d for the patient 07/28/2022 8:48 AM EDT documented as of this encounter Care Teams Cook Pie Relationship Specialty Start Date End Date Palma Jj DO [address] [place] [address] PCP - General Family Medicine 07/14/22 documented as of this encounter
--- OUTSIDE RECORDS SUMMARY | 2024-03-27 14:58 | XMS_ITS | Encounter Summary ---
Author Organization [facility] [place] [address] [place] [address] Care Team Providers Care Electron Beam Welder Name Role Phone Palma Jj DO Primary Care Provider + [phone] Geraldine Whiteside RN Unavailable Unavailable Reason for Visit * Reason Comments CM- Longitudinal Continued CM- Telephonic Outreach CM-Resource Coordination Encounter Details Date Type Department Care Team (Late st Contact Info) Description 02/27/2023 10:30 AM EDT Telemedicine [facility] [address] [place] [address] Geraldine Whiteside, RN Encounter for support and coordination of transition of care (Primary Dx); OA (osteoarthritis)-s/p RIGHT TOTAL HIP REPLACEMENT 02/16/14.; 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; Exudative age-related macular degeneration of left eye, unspecified stage (HCC); Age-related osteoporosis without current pathological fracture; Sensorineural hearing loss (SNHL) of left ear with restricted hearing of right ear Social History Tobacco Use Types Packs/Day Years [...] Date Recorded PHQ-2 Total Score 0 11/07/2022 [facility] [place] of Occupat ional Health - Occupational Stress [...] Assessment Author No 11/07/2022 8:01 AM KUSH Slaughter Tomi CLAUDIA knutson * Because of a physical, mental or [...] Progress Notes * Geraldine Whiteside, RN - 02/27/2023 10:30 AM EDT Images from the original note were not included. Assessment: Patient presents today for follow up visit with Office Registered Route Associate (OCC). Patient reports she did get SNAP food assistance, but only 28 dollars worth. She has been using free fresh produce sathya in [place] every Thursday, and food pantries if she needs them. States she's doing pretty good. Did go to get pill packs with [facility]. Saw orthopedics and did receive an injection, and did get a recommendation for hearing aids from Otolaryngology. She confirmed she has some Medicaid, but doesn't have her card yet. Stated she'll call them again (sits on hold) to get her card. Is wanting to renew her Medicare to a different plan since it's enrollment season. Offered to assist her next week with Medicare.gov's comparison tool. Patient agreed. OCCvisitType: Telephonic Education/handouts: Education: Educated patient on: the medicare.gov tool allows a patient to compare/contrast different plans andshop for one that best works for them. Also discussed having her go down again to the [facility] in [place] to help her get the clarification she needs. Handouts: No handouts provided MyChart already active and access confirmed with patient. Goals: Goals Addressed This Visit's Progress Get Medicaid Coverage clarification at [facility] in [place] today 01/28/23 (pt- stated) Not on track Discuss: -What the Qualified Health Plan papers are ( you already have Medicare, you just want your Medicaidpartial reinstated) - on 01/14/23, Medicaid on the phone said it was reinstated, and you are confused about the [facility] paperthey sent. -ask them to explain this to you 02/27/23 Still has not went down COMPLETED: Get pill packs with [facility] by February 2023 (pt-stated) Attend visit with [facility] on 02/02/23 to start pill packs Maintain a healthy diet, exercise regularly and maintain an ideal body weight Patient will take her blood sugar once a day for a week in the morning, and report the sugars back to provider (pt-stated) On track COMPLETED: Patient will turn her SNAP application into the [facility] in [facility] (pt-stated) On track Papers You Need: -2022 [facility] Pharmacy printout of costs(pickup at [facility]) -property tax paper(you got this) -mortgage paper (you got this) 02/27/23 Receives snap now Pay off [facility] by Spring 2023 (pt-stated) On track -01/28/23 [facility] bill is 120 dollars. Called, no payment assistance available. Continue to pay on it 20 dollars monthly to pay off by Spring 2023 Stay Tobacco Free Next Steps: Registered Route Associate contact information given / reviewed Reviewed when to call Primary Care Provider (PCP) office, urgent care, or 911 Patient will follow up with care coordination on 03/06/23 Registered Route Associate will continue to care manage patient documented in this encounter Plan of Treatment Upcoming Encounters Date Type Department Care Team (Late st Contact Info) Description 05/16/2024 9:30 AM EST Office Visit [facility] [address] [place] [address] Gilda Francis PA [address] [place] [address] documented as of this encounter [...] and coordination of transition of care- Primary OA (osteoarthritis)-s/p RIGHT TOTAL HIP REPLACEMENT 02/16/14. 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 Exudative age-related macular degeneration of left eye, unspecified stage (HCC) Age-related osteoporosis without current pathological fracture Senile osteoporosis Sensorineural hearing loss (SNHL) of left ear with restricted hearing of right ear documented in this encounter Additional Health Concerns Assessment Noted Time A fall risk assessment has been complete d for the patient 07/28/2022 8:48 AM EDT documented as of this encounter Care Teams Electron Beam Welder Relationship Specialty Start Date End Date [place] [address] PCP - General Family Medicine 07/14/22 Geraldine Whiteside, RN Registered Route Associate 01/09/23 03/05/23 documented as of this encounter
--- OUTSIDE RECORDS SUMMARY | 2024-03-27 14:58 | XMS_ITS | Encounter Summary ---
Author Organization [place] [address] Care Team Providers Care Embossing Clerk Name Role Phone Palma Jj DO Primary Care Provider + [phone] Geraldine Whiteside RN Unavailable Unavailable Reason for Visit * Reason Comments Cm- Longitudinal Initiation Care Management - Face To Face CM-SDOH CM-Resource Coordination Encounter Details Date Type Department Care Team (Late st Contact Info) Description 01/09/2023 8:30 AM EDT Office Visit [facility] [place] [address] [place] [address] Geraldine Whiteside, RN Enrolled in chronic care management (Primary Dx) Social History Tobacco Use Types [...] Total Score 0 11/07/2022 [facility] [place] of Occupat ional Health - Occupational [...] Progress Notes * Geraldine Whiteside, RN - 01/09/2023 8:30 AM EDT Images from the original note were not included. Patient presents for follow up visit with Office Senior Interior Designer (OCC) Date of Longitudinal Care Management initiated: 01/09/23 Reason for visit: Medicaid Reapplication Assistance/SNAP Application Assistance Visit Type: Face to Face Assessment: Patient was seen back 11/07/22 by Office Senior Interior Designer (OCC) for advanced care planning. Did not wish to be followed by care management to complete the documents provided. She stated she has them, but still hasn't been able to speak with her family or address due to her recent Social Determinantsof Health (SDOH) issues. Offered to address with her at a date she chooses, stated she will reach out when ready Reports today because she called needing assistance completing SNAP food benefits application OCC provided at last visit. Also showed up with a packet from [employer] regarding her Medicaid reenrollment being due 01/07/23. Stated that she just received it two days prior to it's due date. Has no idea who helped her get Medicaid in the past. OCC attempted to log into [employer] using all of her separate email accounts, but was unsuccessful. Attempted to create an account, but was unsuccessful. Choosing to complete the application and mail it in to the Department of Community and Family Health, manages Medicaid/[facility]. Advised that OCC is not a adoption social worker, but will assist her in any way possible Advance Care Planning (ACP): Advance Care Planning (ACP) has been assessed and ACP navigator has been updated in last 12 months Tobacco use: Reviewed; patient reports no change in smoking history Health Maintenance: Care Gaps addressed today include refused influenza vaccine Medications: Patient denies any questions or concerns related to medications Education/handouts: Education: Educated patient on: sat down with her and explained what each section of the Medicaid Enrollment Form meant. Guided her in completing, and assisted her with locating all of her needed financial information that the application needed. Called her Detention Insurance company with her to obtain needed information as well. help desk operator made copy of completed form for her to have, and OCC placed it in anenvelop addressed to the Medicaid Department. Aware that once she gets a stamp, she can mail it Assisted her in completing her SNAP application. Completed it, and advised her (per the applicationinstructions) to take it down to the Department of Community Based Services to finish he application steps. Address provided on a flyer. Explained that she needs to keep on top of this each year if she wants to continue to keep her Medicaid. She needs to look for notices in the mail to get a start on it earlier, and if she needs assistance, she is welcome to go to the Department of Community Based Services or call Office Senior Interior Designer (OCC). Handouts: DCBS address/contact information Goals: Goals Addressed This Visit's Progress Patient will complete Medicaid Benefit Re enrollment form 01/09/23 and mail to Department of [facility] (pt-stated) Patient will turn her SNAP application into the DCBS in [facility] and obtain food assistance by the end of 2022 (pt-stated) On track Next Steps: Senior Interior Designer contact information given / reviewed Patient will follow up with care coordination on 01/16/23 Senior Interior Designer will continue to care manage patient Notes: Social Determinants Of Health (SDOH) assessments have been updated within the last 12 months. Once completed, will assess if she has any other care needs. If not, will discharge. documented in this encounter Plan of Treatment Upcoming Encounters Date Type Department Care Team (Late st Contact Info) Description 05/16/2024 9:30 AM EST Office Visit [facility] [address] [place] [id number] Gilda Francis PA [address] [place] [address] documented as of this encounter Goals Goal [...] as of this encounter Visit Diagnoses Diagnosis Enrolled in chronic care management- Primary documented in this encounter Additional Health Concerns Assessment Noted Time A fall risk assessment has been complete d for the patient 07/28/2022 8:48 AM EDT documented as of this encounter Care Teams Embossing Clerk Relationship Specialty Start Date End Date [place] [address] PCP - General Family Medicine 07/14/22 Geraldine Whiteside, RN Senior Interior Designer 01/09/23 03/05/23 documented as of this encounter
--- OUTSIDE RECORDS SUMMARY | 2024-03-27 14:58 | XMS_ITS | Encounter Summary ---
Author Organization [place] Address [place] [address] Care Team Providers Care Handbook Writer Name Role Phone Palma Jj DO Primary Care Provider + [phone] Geraldine Whiteside RN Unavailable Unavailable Reason for Referral * Consultation (Routine) - Closed Specialty Diagnoses / Procedures Referred By Ramona mcdaniel Referred To Contact Otolaryngology Diagnoses Encounter for hearing examination, unspecified whether abnormal findings Palma Jj DO [address] [place] [address] Phone: tel: fax: Lele Aquino MD [address] [place] [address] [address] [facility] [place] [address] Phone: tel: fax: Referral ID Status Reason Start Date Expiration Date Visits Re quested Visits Authorized [id number] Closed 02/16/2023 02/16/2024 99 99 Reason for Visit * Reason Onset Date Comments Referral 02/16/2023 ENT Encounter Details Date Type Department Care Team (Late st Contact Info) Description 02/16/2023 Telephone [facility] [place] [address] [place] [address] Palma Jj DO [address] [facility] [place] [address] Referral (ENT) Social History Tobacco Use Types Packs/Day Years [...] Date Recorded PHQ-2 Total Score 0 11/07/2022 [facility] [place] of Occupat ional Health - Occupational Stress [...] Telephone Encounter - Julianna Lea MA - 02/16/2023 9:20 AM EDT referral placed. * Telephone Encounter - Radha Martínez - 02/16/2023 9:14 AM EDT Select the most appropriate reason for this telephone message: Referral Request Who is requesting the referral: Patient What type of referral: ENT What is the reason / diagnosis for this referral:needs hearing checked Have you been seen by your PCP for this issue: Does patient have a preference on a group/provider: Yes (if yes, complete preferred provider info below) Preferred Provider/Group Name: [facility] Preferred Provider/Group Preferred Provider/Group Fax Number: Additional Information: documented in this encounter Plan of Treatment Upcoming Encounters Date Type Department Care Team (Late st Contact Info) Description 05/16/2024 9:30 AM EST Office Visit [facility] [address] [place] [address] Gilda Francis PA [address] [place] [address] Scheduled Referrals Name Type Priority Associated Diagnoses Orde r Schedule AMB REFERRAL TO ENT Outpatient Referral Routine Encounter for hearing examination, unspecified whether abnormal findings Ordered: 02/16/2023 documented as of this encounter Goals Goal [...] this encounter Visit Diagnoses Diagnosis Encounter for hearing examination, unspecified whether abnormal findings- Primary documented in this encounter Additional Health Concerns Assessment Noted Time A fall risk assessment has been complete d for the patient 07/28/2022 8:48 AM EDT documented as of this encounter Care Teams Handbook Writer Relationship Specialty Start Date End Date Palma Jj DO [address] [place] [address] PCP - General Family Medicine 07/14/22 Geraldine Whiteside, RN Engraver Automatic 01/09/23 03/05/23 documented as of this encounter
--- OUTSIDE RECORDS SUMMARY | 2024-03-27 14:58 | XMS_ITS | Encounter Summary ---
Author Organization [place] [address] Care Team Providers Care Edge Molder Name Role Phone Palma Jj DO Primary Care Provider + [phone] Geraldine Whiteside RN Unavailable Unavailable Reason for Referral * In Office Procedure (Routine) - Closed Specialty Diagnoses / Procedures Referred By Contac t Referred To Contact Diagnoses Age-related osteoporosis without current pathological fracture Procedures ORTHOCINCY MEDICATION/PROCEDURE AUTH Miky Webb MD [address] [place] [address] Phone: tel: fax: Referral ID Status Reason Start Date Expiration Date Visits Re quested Visits Authorized [id number] Closed 01/30/2023 01/30/2024 1 1 Reason for Visit * Reason Onset Date Comments Prior Authorization 01/27/2023 Prolia Encounter Details Date Type Department Care Team (Late st Contact Info) Description 01/27/2023 Telephone [facility] [place] [phone] Miky Webb MD [address] [place] [address] Prior Authorization (Prolia ) Social History Tobacco Use Types Packs/Day [...] Date Recorded PHQ-2 Total Score 0 11/07/2022 [facility] of Occupat ional Health - Occupational [...] encounter Miscellaneous Notes * Telephone Encounter - Annabel Yang MA - 02/04/2023 4:56 PM EDT Order was placed on 01/30/23 for Reclast. Supply Chain Director Rafat will forward to [facility]. * Telephone Encounter - Elida Cornejo, Clerical Staff - 02/03/2023 11:02 AM EDT Hello! We will close the therapy plan for Prolia. Once a therapy plan for Reclast is placed, we can move forward with that authorization. Thank you, Elida Cancer Care Pre Cert Specialist * Telephone Encounter - Annabel Yang MA - 01/30/2023 5:15 PM EDT Patel Solares, After speaking with the patient, it appears she has actually not tried Fosomax. Please proceed withReclast. Thank you, Annabel Falcon CCMA * Telephone Encounter - Sujatha jJ CNA - 01/29/2023 9:12 AM EDT Ok, I did not see that anywhere in her chart. Can you tell me where to find it so I can send it with my PA request? I need to know dates, how long she used it, etc. Thank you, Sujatha Krishna Cancer Care Precert Specialist * Telephone Encounter - Chante Avilez RMA - 01/28/2023 11:38 AM EDT said patient has tried Fosamax and he wants to move forward with the Prolia * Telephone Encounter - Sujatha Jj CNA - 01/27/2023 1:04 PM EDTSummary: PA for Prolia Jordan I am working the PA request for Prolia. Per insurance guidelines, patient must have tried and failed a bisphosphonate or be intolerant due to swallowing issues or have a contraindication to preferred drugs. Has the patient tried any other medications such as Fosamax, Reclast, Boniva? If not, patient wouldneed to start with a bisphosphonate. Please let us know how you would like to move forward. Thanks, Sujatha Krishna Cancer Care Precert Specialist documented in this encounter Plan of Treatment Upcoming Encounters Date Type Department Care Team (Late st Contact Info) Description 05/16/2024 9:30 AM EST Office Visit [facility] [address] [place] [address] Gilda Francis PA [address] [place] [address] documented as of this encounter Goals Goal [...] Primary Senile osteoporosis documented in this encounter Orders Nursing Count Last Ordered Date First Orde red Date ORTHOCINCY MEDICATION/PROCEDURE AUTH 1 01/10 documented in this encounter Additional Health Concerns Assessment Noted Time A fall risk assessment has been complete d for the patient 07/28/2022 8:48 AM EDT documented as of this encounter Care Teams Edge Molder Relationship Specialty Start Date End Date Palma Jj DO [employer] [place] [id number] PCP - General Family Medicine 07/14/22 Geraldine Whiteside, RN Full Stack Software Engineer 01/09/23 03/05/23 documented as of this encounter
--- OUTSIDE RECORDS SUMMARY | 2024-03-27 14:58 | XMS_ITS | Encounter Summary ---
Author Organization [place] [address] Care Team Providers Care Programs Director Name Role Phone Palma Jj DO Primary Care Provider + [phone] Geraldine Whiteside RN Unavailable Unavailable Reason for Visit * Reason Onset Date Comments CM- Longitudinal Continued 01/16/2023 CM- Telephonic Outreach 01/16/2023 CM-Resource Coordination 01/16/2023 Encounter Details Date Type Department Care Team (Latest Contact Info) Description 01/16/[address] [facility] [address] [place] [address] Geraldine Whiteside, UMA CM- Longitudinal Continued; [...] PHQ-2 Total Score 0 11/07/2022 [facility] [place] of Occupat ional Health - Occupational Stress [...] Assessment Author No 11/07/2022 8:01 AM EDT Grooms, M ichelle, CCMA * Does this person have difficulty [...] this encounter Progress Notes * Geraldine Whiteside, UMA - 01/16/2023 9:41 AM EDT Images from the original note were not included. Assessment: Patient called for follow up regarding her social determinates of health needs. Assisted her with reapplying for Medicaid, and starting application for food stamps. She did mail Medicaid application after 01/09/23 office visit. However, she needs proof of a medical bill from [facility] that is over 1,200 dollars. Also requesting medicine for acid reflux from Palma Jj DO . Believes it is omeprazole or Pepcid. Unsure of which. OCCvisitType: Telephonic Education/handouts: Education: Educated patient on: That pet care attendant will try to assist in finding the bill, and will call her within the hour Will provide a [employer] Financial Assistance application for her. Can help her fill it out. Agreed Will ask provider to call in requested medication if able. Will notify her within the hour/day UPDATE: at 0945, spoke to [employer] billing department. They found the 1,300 dollar bill and are mailing her a copy today. Notified patient, she will be on the lookout for it. Also advised her ocne she gets it to take to SNAP office to finish application. Also advised her of the Financial Assistance application offered by [employer]. Told her to bring proof of social security letter and to come sign application, and will get it submitted for her assoon as possible. Handouts: No handouts provided MyChart already active and access confirmed with patient. Goals: Goals Addressed This Visit's Progress COMPLETED: Patient will complete Medicaid Benefit Re enrollment form 01/09/23 and mail to [facility] (pt-stated) On track Patient will turn her SNAP application into the DCBS in [facility] and obtain food assistance by the end of 2022 (pt-stated) On track Next Steps: Shuttle Hand contact information given / reviewed Reviewed when to call Primary Care Provider (PCP) office, urgent care, or 1 Shuttle Hand will continue to care manage patient documented in this encounter Miscellaneous Notes * Telephone Encounter - Palma Jj DO - 01/16/2023 12:32 PM EDT I sent in pepcid for patient. Palma Jj DO Family Medicine 01/16/2023 documented in this encounter Plan of Treatment Upcoming Encounters Date Type Department Care Team (Late st Contact Info) Description 05/16/2024 9:30 AM EST Office Visit [facility] [address] [place] [address] Gilda Francis PA [address] [place] [address] documented as of this encounter [...] documented as of this encounter Care Teams Programs Director Relationship Specialty Start Date End Date Palma Jj DO [employer] [place] [address] PCP - General Family Medicine 07/14/22 Geraldine Whiteside, RN Shuttle Hand 01/09/23 03/05/23 documented as of this encounter
--- OUTSIDE RECORDS SUMMARY | 2024-03-27 14:58 | XMS_ITS | Encounter Summary ---
Author Organization [place] [address] Care Team Providers Care Lean Manufacturing Leader Name Role Phone Palma Jj DO Primary Care Provider + [phone] Geraldine Whiteside RN Unavailable Unavailable Encounter Details Date Type Department Care Team (Late st Contact Info) Description 01/28/2023 Orders Only [facility] [place] [address] [place] [address] Palma Jj DO [address] [place] [id number] Social History Tobacco Use Types Packs/Day Years [...] Total Score 0 11/07/2022 [facility] [place] of Occupat ional Health - Occupational Stress [...] Office Visit [facility] [address] [place] [phone] Gilda Francis PA [address] [place] [address] documented as of this encounter [...] Discontinue Reason Start Date End Da te celecoxib (CELEBREX) 200 mg Oral CapsuleIndications:Thoraci c spine pain,Age related osteoporosis, unspecified pathological fracture presence,Vitamin D deficiency,Acute low back pain, unspecified back pain laterality, unspecified whether sciatica present,Protrusion of intervertebral disc of lumbosacral region Take 1 Capsule by mouth 2 times daily for 30 days. Cancelled by 01/23/2023 01/28/2023 documented as of this encounter Additional Health Concerns Assessment Noted Time A fall risk assessment has been complete d for the patient 07/28/2022 8:48 AM EDT documented as of this encounter Care Teams Lean Manufacturing Leader Relationship Specialty Start Date End Date Palma Jj DO [employer] [place] [address] PCP - General Family Medicine 07/14/22 Geraldine Whiteside, RN Die Set Up Worker 01/09/23 03/05/23 documented as of this encounter
--- OUTSIDE RECORDS SUMMARY | 2024-03-27 14:59 | XMS_ITS | Encounter Summary ---
Author Organization [facility] [place] [address] Care Team Providers Care Ornamental Iron Erector Name Role Phone Palma Jj DO Primary Care Provider + [phone] Encounter Details Date Type Department Care Team (Latest Contact Info) Description 12/19/2022 Travel Social History Tobacco Use Types Packs/Day Years [...] Date Recorded PHQ-2 Total Score 0 11/07/2022 [facility] [place] of Occupat ional Health - Occupational Stress [...] Office Visit [facility] [address] [place] [address] Gilda Frnacis PA [address] [facility] [place] [address] documented as of this encounter Goals Goal [...] documented as of this encounter Care Teams Ornamental Iron Erector Relationship Specialty Start Date End Date Palma Jj DO [address] [place] [id number] PCP - General Family Medicine 07/14/22 documented as of this encounter
--- OUTSIDE RECORDS SUMMARY | 2024-03-27 14:59 | XMS_ITS | Encounter Summary ---
Author Organization [facility] Address [address] [place] [address] Care Team Providers Care Event Marketing Coordinator Name Role Phone Parviz Palma Edenilson TREJO Primary Care Provider + [phone] Reason for Visit * Reason Comments Follow-up Injections Encounter Details Date Type Department Care Team (Latest Contact Info) Description 12/03/2022 10:45 AM EDT Office Visit [facility] [address] [place] [address] Bruce Oh MD [address] [place] [phone] History of right hip replacement (Primary Dx); Right knee pain, unspecified chronicity; Primary osteoarthritis of right knee Social History Tobacco Use [...] Date Recorded PHQ-2 Total Score 0 11/07/2022 [facility] [place] of Occupat ional Health - Occupational Stress [...] documented in this encounter Progress Notes * Nayely Velez - 12/03/2022 10:45 AM EDTAssociated Order(s): Large Joint Injection/Arthrocentesis: R knee Large Joint Injection/Arthrocentesis: R knee on 12/03/2022 10:45 AM Indications: pain Details: 22 G needle, anterolateral approach Medications: 4 mL hyaluronate sodium, stabilized 88 mg/4 mL Outcome: tolerated well, no immediate complications Procedure, treatment alternatives, risks and benefits explained, specific risks discussed. Consent was given by the patient. Immediately prior to procedure a time out was called to verify the correctpatient, procedure, equipment, presidential support specialist and site/side marked as required. Patient was prepped and draped in the usual sterile fashion. * Bruce Oh MD - 12/03/2022 10:45 AM EDT Images from the original note were not included. [address] [phone] [place], [place] [phone] [place], [place] Stella Hylton 1945 Date of Visit: 12/03/2022 Chief Complaint: Test Results History: The patient is a 77 y.o. female who comes in review of MRI results. Recently underwent MRIof the lumbar spine to further evaluate potential neural impingement as she describes weakness in bilateral lower extremities. Maximizing conservative management of right knee osteoarthritis with a viscosupplementation injection at today's visit. Physical Examination: Deferred to review test results. 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 Advised on the severity of the spinal stenosis at the L3-4 level. Recommend follow-up opinion with tuberculosis specialist, Dr. Corrales and his team,given the severity of the central stenosis. Potential cause for bilateral lower extremity weakness today. Agreeable to a Monovisc injection at today's visit. Verbalized understanding and agreeable tothe plan. All questions and concerns answered. Imaging: MRI of the lumbar spine demonstrates multilevel degenerative disc disease between L1-2 andL5-S1. Significant facet arthropathy with various degrees of neuroforaminal narrowing between previously mentioned levels. Severe central stenosis at L3-4. Full [id number] report in the patient'schart. PROCEDURE: Verbal and written consent was obtained for a Monovisc injection. The patient understands there is a risk for infection which may require surgery. In addition, they may only get temporary relief or no relief of their symptoms. The patient is advised to call the office of any signs of infection immediately. The patient was also advised to watch their blood sugars if they have diabetes. See procedure note below. DME Summary No orders found for display This is Ludwin Son PA-C dictating as a scribe for Bruce Oh M.D. documented in this encounter Plan of Treatment Upcoming Encounters Date Type Department Care Team (Late st Contact Info) Description 05/16/2024 9:30 AM EST Office Visit [facility] [address] [place] [address] Gilda Francis PA [address] [place], [place] [phone] documented as of this encounter Goals Goal [...] Spring 2023 documented as of this encounter Procedures Procedure Name Priority Date/Time Associated Diagnosis Comments CT ARTHROCENTESIS ASPIR&/INJ MAJOR JT/BURSA W/O US Routine 12/03/2022 10:45 AM EDT Primary osteoarthritis of right knee documented in this encounter Results * CT ARTHROCENTESIS ASPIR&/INJ MAJOR JT/BURSA W/O US (12/03/2022 [...] to verify the correct patient, procedure, equipment, presidential support specialist and site/side marked as required. Patient was prepped and draped in the usual sterile fashion. Ludwin Son PA-C PROCEDURE/MINOR SURGICAL OR DERABLES Final Result [facility] documented in this encounter Visit Diagnoses Diagnosis History of right hip replacement- Primary Right knee pain, unspecified chronicity Primary osteoarthritis of right knee Primary localized osteoarthrosis, lower leg documented in this encounter Administered Medications Inactive Administered Medications - up to 1 most recent administrations Medication Order MAR Action Action Date Dose Rate Site hyaluronate sodium, stabilized (MONOVISC) intra-articular injection 4 mL 4 mL, Intra-articular, ONCE PRN, 1 dose, Starting on Thu12/03/22 at 1045, Until Thu12/03/22 at 1045, Dx: 1. Primary osteoarthritis of right kneeIndications:Primary osteoarthritis of right knee Given 12/03/2022 10:45 AM EDT 4 mL Right Knee documented in this encounter Orders Medications Ordered That Parish ht Not Have Been Administered Count Last Ordered Date First Ordered Date hyaluronate sodium, stabiliz ed (MONOVISC) intra-articular injection 4 mL 1 02/21/2023 documented in this encounter Additional Health Concerns Assessment Noted Time A fall risk assessment has been complete d for the patient 07/28/2022 8:48 AM EDT documented as of this encounter Care Teams Event Marketing Coordinator Relationship Specialty Start Date End Date Palma Jj DO [employer] [phone] PCP - General Family Medicine 07/14/22 documented as of this encounter
--- OUTSIDE RECORDS SUMMARY | 2024-03-27 14:59 | XMS_ITS | Encounter Summary ---
Author Organization [place] Address [address] [facility] [place] [address] Care Team Providers Care Cafe Team Member Name Role Phone Palma Jj DO Primary Care Provider + [phone] Geraldine Whiteside RN Unavailable Unavailable Reason for Visit * Reason Onset Date Comments Other 12/11/2022 Poison Sumac Encounter Details Date Type Department Care Team (Late st Contact Info) Description 12/11/2022 Telephone [facility] [address] [place] [address] Palma Jj DO [address] [place] [address] Other (Poison Sumac) Social History Tobacco Use Types Packs/Day Years [...] [facility] [place] of Occupat ional Health - Occupational Stress [...] Assessment Author No 11/07/2022 8:01 AM EDT oTmi Slaughter CCMA documented as of this encounter Mental Status * Because of a physical, mental or emotional condition, does this person have serious difficulty concentrating, remembering or making decisions? Answer Entry Date Author No 11/07/2022 8:01 AM EDT Tomi Slaughter CCMA documented in this encounter Miscellaneous Notes * Telephone Encounter - Shelby Ernandez CCMA - 12/11/2022 2:22 PM EDT Appt made * Telephone Encounter - Luis Fuller - 12/11/2022 2:11 PM EDT PT stated that she has poison sumac on her legs, back, and neck. She Would like to know if there is a shot she can get to treat this because every treatment she has tried so far has not worked. Please call to advise. documented in this encounter Plan of Treatment Upcoming Encounters Date Type Department Care Team (Late st Contact Info) Description 05/16/2024 9:30 AM EST Office Visit [facility] [address] [place] [address] Gilda Francis PA [address] [place] [address] documented as of this encounter [...] documented as of this encounter Care Teams Cafe Team Member Relationship Specialty Start Date End Date Palma J[place] [address] PCP - General Family Medicine 07/14/22 Geraldine Whiteside, RN Cs Associate 01/09/23 03/05/23 documented as of this encounter
--- OUTSIDE RECORDS SUMMARY | 2024-03-27 14:59 | XMS_ITS | Encounter Summary ---
Author Organization [facility] Address [address] [place] [address] Care Team Providers Care Design Director Name Role Phone Palma Jj DO Primary Care Provider + [phone] Reason for Referral * In Office Procedure (Routine) - Closed Specialty Diagnoses / Procedures Referred By Ramona mcdaniel Referred To Contact Orthopedic Surgery Diagnoses History of right hip replacement Right knee pain, unspecified chronicity Procedures [facility] MEDICATION/PROCEDURE AUTH Bruce Oh MD [address] [place] [address] Phone: tel: fax: [facility] [address] [facility] [address] [place] [address] Phone: tel: fax: Referral ID Status Reason Start Date Expiration Date Visits Re quested Visits Authorized [id number] Closed 10/22/2022 10/22/2023 1 1 * MRI/CAT Scan (Routine) - Closed Specialty Diagnoses / Procedures Referred By Ramona mcdaniel Referred To Contact Orthopedic Surgery Diagnoses History of right hip replacement Right knee pain, unspecified chronicity Procedures MRI LUMBAR SPINE WO CONTRAST Bruce Oh MD [address] [place] [address] Phone: tel: fax: [facility] [address] [place] [address] Phone: tel: fax: Referral ID Status Reason Start Date Expiration Date Visits Re quested Visits Authorized [id number] Closed 10/22/2022 10/22/2023 1 1 Encounter Details Date Type Department Care Team (Late st Contact Info) Description 10/22/2022 1:45 PM EDT Office Visit [facility] [address] [place] [address] Bruce Oh MD [address] [place] [address] History of right hip replacement (Primary Dx); Right knee pain, unspecified chronicity Social History Tobacco Use Types Packs/Day Years Used Date Smoking Tobacco: Former Cigarettes 0.5 5 1 0 - 1994 Smokeless Tobacco: Never Comments:quit in 1998 Alcohol Use Standard Drinks/Week Comments No 0 (1 standard drink = 0.6 oz pur e alcohol) Overall Financial Resource Strain (CARDIA) Answe r Date Recorded How hard is it for you to pa y for the very basics like food, housing, medical care, and heating? Hard 03/28/2022 PHQ-2 Answer Date Recorded PHQ-2 Total Score 0 09/24/2021 Hunger Vital Sign Answer Date Recorded Within [...] things needed for daily living? No 03/28/2022 Comments No Sex and Gender Information Value Date Recorded Sex Assigned at Not on file Legal Sex Female 5:30 PM EDT Gender Identity Not on file Sexual Orientation Not on file documented as of this encounter Functional Status * Is the person deaf or does he/she have serious difficulty hearing? Answer Date of Assessment Author No 09/24/2021 7:49 AM EDT Sukhjinder Tomi eamon, CCMA * Is the person blind or does he/she have serious difficulty seeing even when wearing glasses? Answer Date of Assessment Author No 09/24/2021 7:49 AM EDT Sukhjinder Tomi ichelle, CCMA * Does this person have serious difficulty walking or climbing stairs? Answer Date of Assessment Author No 09/24/2021 7:49 AM EDT SukhjinderTomi ichelle, CCMA * Does this person have difficulty dressing or bathing? Answer Date of Assessment Author No 09/24/2021 7:49 AM EDT Sukhjinder Tomi ichelle, CCMA * Because of a physical, mental or emotional condition, does this person have difficulty doing errands alone such as visiting a doctor's office or shopping? Answer Date of Assessment Author No 09/24/2021 7:49 AM EDT Sukhjinder Tomi ichelle, CCMA documented as of this encounter Mental Status * Because of a physical, mental or emotional condition, does this person have serious difficulty concentrating, remembering or making decisions? Answer Entry Date Author No 09/24/2021 7:49 AM EDT Sukhjinder Tomi eamon, CCMA documented in this encounter Progress Notes * Nayely Velez - 10/22/2022 1:45 PM EDTAssociated Order(s): Large Joint Injection/Arthrocentesis Large Joint Injection/Arthrocentesis on 10/22/2022 1:45 PM Indications: pain Details: 22 G needle, anterolateral approach Outcome: tolerated well, no immediate complications Procedure, treatment alternatives, risks and benefits explained, specific risks discussed. Consent was given by the patient. Immediately prior to procedure a time out was called to verify the correctpatient, procedure, equipment, donor support technician and site/side marked as required. Patient was prepped and draped in the usual sterile fashion. * Bruce Oh MD - 10/22/2022 1:45 PM EDT Images from the original note were not included. [address] [phone] ([phone]) [place], [place] [phone]) [place], [place] Stella Hylton 1945 Date of Visit: 10/22/2022 Chief Complaint: Right leg History: The patient is a 77 y.o. female who comes in today for initial evaluation of right leg pain. 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 She has known knee osteoarthritis that has hurt for some time she is undergoing conservative treatments for it including NSAIDs and shots however she has had increasing discomfort not just in the front of the knee anymore but also radiation posteriorly and laterally from her hip all the way down to her ankle she comes in to have evaluation and discuss options for treatment the pain at the knee is still a 5 to a 7 out of 10 however with the posterior pain its upwards of an 8 out of 10 Physical Examination: The patient is a 77 y.o. who appears their stated age, alert and oriented x3 with appropriate affect. Walks with antalgic gait valgus gait. Skin is intact with normal color and normal tone. There were no vitals filed for this visit. There is no height or weight on file to calculate BMI. Range of motion of bilateral hips is full extension flexion to 100 internal 5-10 with some pain pain with circumduction actively 15 positive Cynthia test palpation bursa positive straight leg raise rest of exam neurologically vascularly intact. Is also tenderness palpation over the low back and with rotation of the trunk Range of motion of right knee is full extension flexion to 120 effusion present. Crepitus with range of motion positive patella compression and positive patella apprehension laterally. Tenderness to palpation medially and laterally. Positive pinch and James tests laterally rest of exam neurologically and vascularly intact Impression: Right leg pain. Severe right knee OA with possible radicular pathology Plan: I discussed with patient's the options currently the knee is severely arthritic and is still somewhat straightforward we will continue to treat conservatively with a steroid shot medications and possible assistive devices with ambulation the same time patient would also like to attempt gel toprovide increased longevity for the injection treatments. I think this is reasonable so we will do a steroid shot today and order gel shots to proceed. As for the knee pain which is very radicular innature I am concerned enough with her x-rays I think that the spinal stenosis versus some kind of irritation in the central canal. We then send patient for an MRI of her L-spine and treat as appropriate depending on the findings patient understands and agrees with the plan Imaging: AP pelvis demonstrate well fixed well aligned left hip replacement right hip moderate to severe OA joint space narrowed but maintained with eburnation lateral spurring. 2 view L-spine shows degenerative scoliosis with spondylitic changes throughout the entire L-spine but no evidence of bone lesion or fracture Three views of Right knees severe tricompartmental osteoarthritis valgus alignment [id number] laterally and patellofemoral with eburnation spurring in all 3 compartments DME Summary No orders found for display documented in this encounter Plan of Treatment Upcoming Encounters Date Type Department Care Team (Late st Contact Info) Description 05/16/2024 9:30 AM EST Office Visit [facility] [address] [place] [address] Gilda Francis PA [address] [place] [address] documented as of this encounter [...] Procedure Name Priority Date/Time Associated Diagnosis Comments [place] ARTHROCENTESIS ASPIR&/INJ MAJOR JT/BURSA W/O US Routine 10/22/2022 1:45 PM EDT Right knee pain, unspecified chronicity documented in this encounter Results * MRI LUMBAR SPINE WO CONTRAST (11/03/2022 11:44 AM EDT) Narrative [facility] - 11/03/2022 11:44 AM EDT Please see the scanned MRI report associated with this order on the Imaging tab of the patient's chart. us Bruce Oh MD [facility] ORDERABLES Final Res ult [facility] * XR KNEE RIGHT AP LATERAL AND SUNRISE STANDING (10/22/2022 2:22 PM EDT) Narrative [facility], Audit - 10/22/2022 2:22 PM EDT Please see physician's note from office encounter for x-ray imaging result us Bruce Oh MD [facility] ORDER LILLIAN Final Result * XR LUMBAR SPINE AP AND LATERAL (10/22/2022 1:59 PM EDT) Narrative [facility], Audit - 10/22/2022 1:59 PM EDT Please see physician's note from office encounter for x-ray imaging result us Bruce Oh MD [facility] ORDER LILLIAN Final Result * XR HIP RIGHT AP LATERAL W AP PELVIS (10/22/2022 1:58 PM EDT) Narrative [facility], Audit - 10/22/2022 1:58 PM EDT Please see physician's note from office encounter for x-ray imaging result us Bruce Oh MD [facility] ORDER LILLIAN Final Result * [place] ARTHROCENTESIS ASPIR&/INJ MAJOR JT/BURSA W/O US (10/22/2022 1:45 PM EDT) Narrative [facility] - 10/22/2022 1:45 PM EDT Nayely [...] to verify the correct patient, procedure, equipment, donor support technician and site/side marked as required. Patient was prepped and draped in the usual sterile fashion. us Bruce Oh MD PROCEDURE/MINOR SURGICAL ORD ERABLES Final Result [facility] [address] [place] [address] documented in this encounter Visit Diagnoses Diagnosis History of right hip replacement- Primary Right knee pain, unspecified chronicity History of right hip replacement History of right hip replacement Right knee pain, unspecified chronicity History of right hip replacement Right knee pain, unspecified chronicity documented in this encounter Orders Nursing Count Last Ordered Date First Orde red Date [facility] MEDICATION/PROCEDURE AUTH 1 10/09 documented in this encounter Additional Health Concerns Assessment Noted Time A fall risk assessment has been complete d for the patient 07/28/2022 8:48 AM EDT documented as of this encounter Care Teams Design Director Relationship Specialty Start Date End Date Palma Jj DO [address] [place] [phone] PCP - General Family Medicine 07/14/22 documented as of this encounter
--- OUTSIDE RECORDS SUMMARY | 2024-03-27 14:59 | XMS_ITS | Encounter Summary ---
Author Organization [facility] Address [address] [place] [address] Care Team Providers Care Drop Press Hand Name Role Phone Parviz Palma Edenilson TREJO Primary Care Provider + [phone] Olesya Estrada ENVELOPE CUTTER Unavailable Unava ilable Reason for Visit * Reason Onset Date Comments Knee Pain 10/28/2022 Encounter Details Date Type Department Care Team (Late st Contact Info) Description 10/28/2022 Telephone [facility] [address] [place] [address] Bruce Oh MD [address] [place] [phone] Knee Pain Social History Tobacco Use Types Packs/Day Years [...] Recorded PHQ-2 Total Score 0 11/07/2022 [facility] [place] of Occupat ional Health - Occupational Stress [...] of Assessment Author No 09/24/2021 7:49 AM Tomi Huggins CCMA * Is the person blind or does he/she have serious difficulty seeing even when wearing glasses? Answer Date of Assessment Author No 09/24/2021 7:49 AM Tomi Huggins CCMA * Does this person have serious difficulty walking or climbing stairs? Answer Date of Assessment Author No 09/24/2021 7:49 AM Tomi Huggins CCMA * Does this person have difficulty dressing or bathing? Answer Date of Assessment Author No 09/24/2021 7:49 AM Tomi Huggins CCMA * Because of a physical, mental or emotional condition, does this person have difficulty doing errands alone such as visiting a doctor's office or shopping? Answer Date of Assessment Author No 09/24/2021 7:49 AM EDT Tomi Slaughter CCMA documented as of this encounter Mental Status * Because of a physical, mental or emotional condition, does this person have serious difficulty concentrating, remembering or making decisions? Answer Entry Date Author No 09/24/2021 7:49 AM EDT Tomi Slaughter CCMA documented in this encounter Miscellaneous Notes * Telephone Encounter - Heather Kwon Clerical Staff - 10/28/2022 10:13 AM EDT Summary: MONOVISC RT KNEE GOOD TO SCHEDULE FOR MONOVISC RT KNEE * Telephone Encounter - Amanda Silveira - 10/28/2022 10:10 AM EDT Ok to schedule monovisc injections. * Telephone Encounter - Heather Kwon Clerical Staff - 10/28/2022 7:24 AM EDT Summary: MONOVISC RT KNEE PLEASE REVIEW NEW BENEFITS IN CHART documented in this encounter Plan of Treatment Upcoming Encounters Date Type Department Care Team (Late st Contact Info) Description 05/16/2024 9:30 AM EST Office Visit [facility] [address] [place] [address] Gilda Francis PA [address] [place] [address] documented as of this encounter [...] documented as of this encounter Care Teams Drop Press Hand Relationship Specialty Start Date End Date Palma Jj DO [place] [phone] PCP - General Family Medicine 07/14/22 Olesya Estrada LSW [employer] 11/12/2211/27 documented as of this encounter
--- OUTSIDE RECORDS SUMMARY | 2024-03-27 14:59 | XMS_ITS | Encounter Summary ---
Author Organization [facility] Address [address] [place] [address] Care Team Providers Care Talent Acquisition Assistant Name Role Phone Palma Jj DO Primary Care Provider + [phone] Encounter Details Date Type Department Care Team (Latest Contact Info) Description 10/22/2022 2:15 PM EDT Ancillary [place] [address] Bruce Oh MD [address] [place] [phone] History of right hip replacement Social History Tobacco Use Types Packs/Day Years [...] Author No 09/24/2021 7:49 AM EDT Tomi Salughter CCMA * Is the person blind or does he/she have serious difficulty seeing even when wearing glasses? Answer Date of Assessment Author No 09/24/2021 7:49 AM EDTomi José CCMA * Does this person have serious difficulty walking or climbing stairs? Answer Date of Assessment Author No 09/24/2021 7:49 AM EDT Tomi Slaughter CCMA * Does this person have difficulty dressing or bathing? Answer Date of Assessment Author No 09/24/2021 7:49 AM EDT Tomi Slaughter CCMA * Because of a physical, mental or emotional condition, does this person have difficulty doing errands alone such as visiting a doctor's office or shopping? Answer Date of Assessment Author No 09/24/2021 7:49 AM EDTomi José CCMA documented as of this encounter Mental Status * Because of a physical, mental or emotional condition, does this person have serious difficulty concentrating, remembering or making decisions? Answer Entry Date Author No 09/24/2021 7:49 AM Tomi Huggins CCMA documented in this encounter Plan of Treatment Upcoming Encounters Date Type Department Care Team (Late st Contact Info) Description 05/16/2024 9:30 AM EST Office Visit [facility] [address] [place] [phone] Gilda Francis PA [address] [place] [address] documented as of this encounter [...] Whiteside, RN documented as of this encounter Procedures Procedure Name Priority Date/Time Associated Diagnosis Comments XR LUMBAR SPINE AP AND LATERAL Routine 10/22/2022 1:59 PM EDT History of right hip replacement documented in this encounter Results * XR LUMBAR SPINE AP AND LATERAL (10/22/2022 1:59 PM EDT) Narrative GenericuserPrashant - 10/22/2022 1:59 PM EDT Please see physician's note from office encounter for x-ray imaging result Bruce Oh MD IMG DIAGNOSTIC IMAGING ORDER LILLIAN Final Result documented in this encounter Visit Diagnoses Diagnosis History of right hip replacement documented in this encounter Additional Health Concerns Assessment Noted Time A fall risk assessment has been complete d for the patient 07/28/2022 8:48 AM EDT documented as of this encounter Care Teams Talent Acquisition Assistant Relationship Specialty Start Date End Date Palma Jj DO [address] [address] PCP - General Family Medicine 07/14/22 documented as of this encounter
--- OUTSIDE RECORDS SUMMARY | 2024-03-27 14:59 | XMS_ITS | Encounter Summary ---
Author Organization [place] [address] Care Team Providers Care Fitness Instructor Name Role Phone Palma Jj DO Primary Care Provider + [phone] Reason for Visit * Reason Onset Date Comments Referral 11/07/2022 Encounter Details Date Type Department Care Team (Late st Contact Info) Description 11/07/2022 Patient Outreach [facility] [address] [place] [address] Nabil Amaro, BA, COS Referral Social History Tobacco Use Types Packs/Day Years [...] Date Recorded PHQ-2 Total Score 0 11/07/2022 [place] [facility] - Occupational Stress [...] documented in this encounter Progress Notes * Nabil Amaro, BA, COS - 11/07/2022 9:25 AM EDT Avionics Manager Management Referral Request Referral received from: Geraldine Whiteside, RN OCC Referral note: Social Determinants of Health - Gave her another SNAP application. Patient already uses her insurance benefits for food and food pantries for assistance. States she has trouble with her bills as well. Thank you! Assigned via round lola to: Olesya Estrada LSW documented in this encounter Plan of Treatment Upcoming Encounters Date Type Department Care Team (Late st Contact Info) Description 05/16/2024 9:30 AM EST Office Visit [facility] [address] [place] [address] Gilda Francis PA [address] [place] [address] documented as of this encounter [...] documented as of this encounter Care Teams Fitness Instructor Relationship Specialty Start Date End Date Palma Jj DO [address] [place] [address] PCP - General Family Medicine 07/14/22 documented as of this encounter
--- OUTSIDE RECORDS SUMMARY | 2024-03-27 14:59 | XMS_ITS | Encounter Summary ---
Author Organization [facility] [place] [place] [address] Care Team Providers Care Supervisor Fishing Name Role Phone Palma Jj DO Primary Care Provider + [phone] Reason for Visit * Reason Comments Medication Refill Encounter Details Date Type Department Care Team (Late st Contact Info) Description 10/04/2022 Refill [facility] [address] [place] [address] Palma Jj DO [address] [place] [phone] Medication Refill Social History Tobacco Use Types [...] 09/24/2021 7:49 AM EDTomi José CCMA * Is the [...] 09/24/2021 7:49 AM Tomi Huggins CCMA documented as of [...] (PRINIVIL;ZESTRIL) 10 mg Oral TabletIndications: Essential hypertension TAKE 1 TABLET BY MOUTH EVERY DAY 90 Tablet 2 10/07/2022 12/22/2022 documented in this encounter Plan of Treatment Upcoming Encounters Date Type Department Care Team (Late st Contact Info) Description 05/16/2024 9:30 AM EST Office Visit [facility] [address] [place] [address] Gilda Francis PA [address] [place] [address] documented as of this encounter Goals [...] Da te lisinopriL (PRINIVIL;ZESTRIL) 10 mg Oral TabletIndications:Danielitoenti al hypertension Take 1 Tablet by mouth daily. 07/10/2022 10/07/2022 documented as of this encounter Additional Health Concerns Assessment Noted Time A fall risk assessment has been complete d for the patient 07/28/2022 8:48 AM EDT documented as of this encounter Care Teams Supervisor Fishing Relationship Specialty Start Date End Date Palma Jj DO [address] [place] [address] PCP - General Family Medicine 07/14/22 documented as of this encounter
--- OUTSIDE RECORDS SUMMARY | 2024-03-27 14:59 | XMS_ITS | Encounter Summary ---
Author Organization [place] [address] Care Team Providers Care Assistant Professor Of Radiology Name Role Phone Palma Jj DO Primary Care Provider + [phone] Reason for Visit * Reason Comments Medication Refill Encounter Details Date Type Department Care Team (Late st Contact Info) Description 10/28/2022 Refill [facility] [place] [address] Mann Irene MD [address] [place] [address] Medication Refill Social History Tobacco Use [...] 7:49 AM EDT Tomi Slaughter CCMA * Is [...] TABLET BY MOUTH EVERY DAY 90 Tablet 10/28/2022 12/22/2022 documented in this encounter Plan of Treatment Upcoming Encounters Date Type Department Care Team (Late st Contact Info) Description 05/16/2024 9:30 AM EST [facility] [address] [facility] [address] Gilda Francis PA [address] [facility] [address] documented as of this encounter Goals Goal Patient Goal Type Associated Problems Recent Progress Patient-Stated? Author Blood Pressure < 140/90 Blood Pressure 130/90(2023 10:29 AM EDT) No Plama Jj DO Patient will take her blood [...] TAKE 1 TABLET BY MOUTH EVERY DAY 07/18/2022 10/28/2022 documented as of this encounter Additional Health Concerns Assessment Noted Time A fall risk assessment has been complete d for the patient 07/28/2022 8:48 AM EDT documented as of this encounter Care Teams Assistant Professor Of Radiology Relationship Specialty Start Date End Date Palma [place] [address] PCP - General Family Medicine 07/14/22 documented as of this encounter
--- OUTSIDE RECORDS SUMMARY | 2024-03-27 14:59 | XMS_ITS | Encounter Summary ---
Author Organization [place] [address] Care Team Providers Care Parking Officer Name Role Phone Palma Jj DO Primary Care Provider + [phone] Reason for Visit * Reason Onset Date Comments Referral 11/07/2022 Encounter Details Date Type Department Care Team (Late st Contact Info) Description 11/07/2022 Patient Outreach [facility] [address] [place] [address] Nabil Amaro, BA, COS Referral Social History [...] Date Recorded PHQ-2 Total Score 0 11/07/2022 [place] [facility] ional [facility] - Occupational Stress [...] * Nabil Amaro, BA, COS - 11/07/2022 8:50 AM EDT Human Resources Team Member Management Referral Request Referral received from: Palma Jj DO Referral note: Advance Care Planning Assigned to: Geraldine Whiteside RN OCC documented in this encounter Plan of Treatment Upcoming Encounters Date Type Department Care Team (Late st Contact Info) Description 05/16/2024 9:30 AM EST Office Visit [facility] [address] [place] [address] Gilda Francis PA [address] [place] [address] documented as of this encounter [...] documented as of this encounter Care Teams Parking Officer Relationship Specialty Start Date End Date Palma Jj DO [address] [place] [address] PCP - General Family Medicine 07/14/22 documented as of this encounter
--- OUTSIDE RECORDS SUMMARY | 2024-03-27 14:59 | XMS_ITS | Encounter Summary ---
Author Organization [place] [address] Care Team Providers Care Public Health Name Role Phone Palma Jj DO Primary Care Provider + [phone] Reason for Referral * Mammography (Routine) - Pending Review Specialty Diagnoses / Procedures Referred By Contmillicent t Referred To Contact Radiology Diagnoses Encounter for screening mammogram for malignant neoplasm of breast Procedures MM MAMMO DIGITAL VIVIANA SCREEN Mann Sevilla MD [address] [place] [address] Phone: tel: fax: Referral ID Status Reason Start Date Expiration Date V isits Requested Visits Authorized [id number] Pending Review 06/09/2022 06/09/2024 1 1 Reason for Visit * Mammography (Routine) - Pending Review Specialty Diagnoses / Procedures Referred By Ramona mcdaniel Referred To Contact Radiology Diagnoses Encounter for screening mammogram for malignant neoplasm of breast Procedures MM MAMMO DIGITAL VIVIANA SCREEN Mann Sevilla MD [address] [place] [address] Phone: tel: fax: Referral ID Status Reason Start Date Expiration Date V isits Requested Visits Authorized [id number] Pending Review 06/09/2022 06/09/2024 1 1 Encounter Details Date Type Department Care Team (Latest Contact Info) Description 07/28/2022 11:20 AM EDT - 07/28/2022 11:59 PM EDT Hospital Encounter Mobile Mammography Other Location View online schedule for mobile van location [phone] Mann Irene MD [address] [place] [address] Encounter for screening mammogram for malignant neoplasm of breast Discharge Disposition: Home or Self Care Social [...] suspected to have Coronavirus/COVID-19? No / Unsure 07/28/2022 11:18 AM EDT documented as of this encounter [...] of Discharge atorvastatin (LIPITOR) 10 mg Oral TabletIndications: Hypercholesterolem ia TAKE 1 TABLET BY MOUTH EVERY DAY 90 Tablet 07/18/2022 3 diclofenac (VOLTAREN) 75 mg Oral Tablet, Delayed Release (E.C.) TAKE 1 TABLET BY MOUTH 2 TIMES DAILY FOR 180 DAYS. WITH MEALS 180 Tablet 1 04/21/2022 3 ergocalciferol (DRISDOL) 1,250 mcg (50,000 unit) Oral Capsule TAKE 1 CAPSULE BY MOUTH ONE TIME PER WEEK 12 Capsule 3 07/11/2022 3 lisinopriL (PRINIVIL;ZESTRIL) 10 mg Oral TabletIndications: Essential hypertension Take 1 Tablet by mouth daily. 30 Tablet 2 07/10/2022 3 loperamide (IMODIUM) 2 mg Oral CapsuleIndications :Diarrhea, unspecified type Take 1 Capsule by mouth 4 times daily as needed for Diarrhea. 40 Capsule 09/17/2021 3 documented as of this encounter Discharge Disposition Disposition Code Departure Means Destination Home or Self Care documented in this encounter Plan of Treatment Upcoming Encounters Date Type Department Care Team (Late st Contact Info) Description 05/16/2024 9:30 AM EST Office Visit [facility] [address] [place] [phone] Gilda Francis PA [address] [place] [address] documented as of this encounter Goals Goal [...] Procedure Name Priority Date/Time Associated Diagnosis Comments MM MAMMO DIGITAL VIVIANA SCREEN BILAT Routine 07/28/2022 11:27 AM EDT Encounter for screening mammogram for malignant neoplasm of breast documented in this encounter Results * MM MAMMO DIGITAL VIVIANA SCREEN BILAT (07/28/2022 11:27 AM EDT) Anatomical Region Laterality Modality Breast Bilateral Mammography 07/29/2022 7:54 AM EDT Impressions 07/29/2022 7:54 AM EDT Negative ??([id number]) ~ RECOMMENDATION: Routine screening mammogram in 1 [...] the next mammogram, in accordance with the [employer] and the Society of Breast Imaging recommendations. Narrative 07/29/2022 7:54 AM EDT Procedure:MM MAMMO DIGITAL VIVIANA SCREEN BILAT ~ Reason for exam: screening, asymptomatic. Z12.31-Encounter for screening mammogram for malignant neoplasm of [id number] ~ MM MAMMO DIGITAL VIVIANA SCREEN BILAT [...] for screening mammogram for malignant neoplasm of [id number] ~ MM MAMMO DIGITAL VIVIANA SCREEN BILAT Bilateral CC and MLO view(s) were taken. There are scattered fibroglandular densities. Prior study comparison: Compared with prior studies the most recentbeing 07/16/21, 10/15/18 No mammographic evidence of malignancy. ~ IMPRESSION: Negative ([id number]) ~ RECOMMENDATION: Routine screening mammogram in 1 [...] the next mammogram, in accordance with the [employer] and the Society of Breast Imaging recommendations. Mann Irene MD IMG MAMMOGRAPHY ORDERABLES Fin al Result documented in this encounter Visit Diagnoses Diagnosis Encounter for screening mammogram for malignant neoplasm of breast Other screening mammogram documented in this encounter Additional Health Concerns Assessment Noted Time A fall risk assessment has been complete d for the patient 07/28/2022 8:48 AM EDT documented as of this encounter Care Teams Public Health Relationship Specialty Start Date End Date Palma Jj DO [employer] [address] PCP - General Family Medicine 07/14/22 documented as of this encounter
--- OUTSIDE RECORDS SUMMARY | 2024-03-27 14:59 | XMS_ITS | Encounter Summary ---
Author Organization [facility] Address [place] [address] Care Team Providers Care Halal Meat Packer Name Role Phone Palma Jj DO Primary Care Provider + [phone] Reason for Visit * Reason Comments Poison Sumac about a week Encounter Details Date Type Department Care Team (Late st Contact Info) Description 12/11/2022 4:00 PM EDT Office Visit [facility] [address] [place] [address] Palma Jj DO [address] [place] [phone] Poison sumac (Primary Dx) Social History Tobacco Use Types [...] Date Recorded PHQ-2 Total Score 0 11/07/2022 [facility] [place] of Occupat ional Health - Occupational Stress [...] Sign Reading Time Taken Comments Blood Pressure 142/80 12/11/2022 4:00 PM EDT Pulse 93 12/11/2022 4:00 PM EDT Temperature 36.3 ??C (97.3 ??F) 12/11/2022 4:00 PM ED T Respiratory Rate 18 12/11/2022 4:00 PM EDT Oxygen Saturation 97% 12/11/2022 4:00 PM EDT Inhaled Oxygen Concentration - - Weight 76.2 kg (168 lb) 12/11/2022 4:00 PM EDT Height - - Body Mass Index 32.81 11/07/2022 8:02 AM EDT documented in this encounter Functional Status * Is the person deaf or does he/she have serious difficulty hearing? Answer Date of Assessment Author No 11/07/2022 8:01 AM EDTomi José CCMA * Is the person blind or does he/she have serious difficulty seeing even when wearing glasses? Answer Date of Assessment Author No 11/07/2022 8:01 AM CAITDavin LeticiaTomi olson CCMA * Does this person have serious difficulty walking or climbing stairs? Answer Date of Assessment Author No 11/07/2022 8:01 AM CAITDavin LeticiaTomi olson CCMElver * Does this person have difficulty dressing or bathing? Answer Date of Assessment Author No 11/07/2022 8:01 AM KUSH SlaughterTomi CCMElver * Because of a physical, mental or emotional condition, does this person have difficulty doing errands alone such as visiting a doctor's office or shopping? Answer Date of Assessment Author No 11/07/2022 8:01 AM KUSH SlaughterTomi CCMElver documented as of this encounter Mental Status * Because of a physical, mental or emotional condition, does this person have serious difficulty concentrating, remembering or making decisions? Answer Entry Date Author No 11/07/2022 8:01 AM CAITDavin LeticiaTomi olson CCMA documented in this encounter Ordered Prescriptions Prescription Sig Dispense Quantity Refills Last Filled Start Date End Date predniSONE (DELTASONE) 20 mg Oral TabletIndications: Poison sumac Take 1 Tablet by mouth 2 times daily for 5 days, THEN 1 Tablet daily for 5 days, THEN 0.5 Tablets daily for 5 days. 18 Tablet 12/12/2022 documented in this encounter Progress Notes * Palma Jj DO - 12/11/2022 4:00 PM EDT Assessment Diagnoses and all orders for this visit: Poison sumac - methylPREDNISolone acetate (DEPO-Medrol) injection 80 mg - predniSONE (DELTASONE) 20 mg Oral Tablet; Take 1 Tablet by mouth 2 times daily for 5 days, THEN 1Tablet daily for 5 days, THEN 0.5 Tablets daily for 5 days. Dispense: 18 Tablet; Refill: 0 -Given steroid taper to complete if the rash returns or does not improve with just the steroid injection. Palma Jj DO Family Medicine 12/11/2022 Progress Note: Vitals: 12/11/22 1600 BP: (!) 142/80 Pulse: 93 Resp: 18 Temp: 97.3 ??F (36.3 ??C) TempSrc: Temporal SpO2: 97% Weight: 168 lb (76.2 kg) SUBJECTIVE: Chief Complaint Patient presents with Poison Sumac about a week HPI: 77 year old female who presents with cc of rash that started few days ago. Came into contact with poison sumac. Itching rash. Review of Systems Constitutional: Negative for fatigue and fever. Skin: Positive for rash. All other systems reviewed and are negative. OBJECTIVE: Physical Exam Vitals reviewed. Constitutional: General: She is not in acute distress. Appearance: Normal appearance. She is not ill-appearing, toxic-appearing or diaphoretic. Cardiovascular: Rate and Rhythm: Normal rate. Pulmonary: Effort: Pulmonary effort is normal. Skin: Findings: Rash present. Rash is urticarial. Rash is not crusting, pustular, scaling or vesicular. Comments: Rash present over chest, back, stomach, both arms, both legs. Hive like appearance Neurological: Mental Status: She is alert. * Palma Jj DO - 12/11/2022 4:00 PM EDT Assessment Diagnoses and all orders for this visit: Poison sumac - methylPREDNISolone acetate (DEPO-Medrol) injection 80 mg - predniSONE (DELTASONE) 20 mg Oral Tablet; Take 1 Tablet by mouth 2 times daily for 5 days, THEN 1Tablet daily for 5 days, THEN 0.5 Tablets daily for 5 days. Dispense: 18 Tablet; Refill: 0 Progress Note: Vitals: 12/11/22 1600 BP: (!) 142/80 Pulse: 93 Resp: 18 Temp: 97.3 ??F (36.3 ??C) TempSrc: Temporal SpO2: 97% Weight: 168 lb (76.2 kg) SUBJECTIVE: Chief Complaint Patient presents with Poison Sumac about a week HPI: Review of Systems OBJECTIVE: Physical Exam documented in this encounter Plan of Treatment Upcoming Encounters Date Type Department Care Team (Late st Contact Info) Description 05/16/2024 9:30 AM EST [facility] [address] [facility] [address] Gilda Francis PA [address] [facility] [address] documented as of this encounter Goals [...] as of this encounter Visit Diagnoses Diagnosis Poison sumac- Primary Contact dermatitis and other eczema due to plants (except food) documented in this encounter Administered Medications Inactive Administered Medications - up to 1 most recent administrations Medication Order MAR Action Action Date Dose Rate Site methylPREDNISolone acetate (DEPO-Medrol) injection 80 mg 80 mg, Intramuscular, ONCE, 1 dose, On Gretel 12/11/22 at 1630, Dx: 1. Poison sumacIndications:Poison sumac Given 12/11/2022 4:20 PM EDT 80 mg Right Upper Outer Quadrant documented in this encounter Additional Health Concerns Assessment Noted Time A fall risk assessment has been complete d for the patient 07/28/2022 8:48 AM EDT documented as of this encounter Care Teams Halal Meat Packer Relationship Specialty Start Date End Date [place] [address] PCP - General Family Medicine 07/14/22 documented as of this encounter
--- OUTSIDE RECORDS SUMMARY | 2024-03-27 14:59 | XMS_ITS | Encounter Summary ---
Author Organization [place] [address] Care Team Providers Care Dietetics Professor Name Role Phone Palma Jj DO Primary Care Provider + [phone] Reason for Visit * Reason Comments Follow-up 2 week f/u HTN Encounter Details Date Type Department Care Team (Late st Contact Info) Description 07/28/2022 8:40 AM EDT Office Visit [facility] [place] [address] [address] Palma Jj DO [address] [place] [address] Essential hypertension (Primary Dx); Dysuria Social History Tobacco Use Types Packs/Day Years Used Date Smoking Tobacco: Former Cigarettes 0.5 5 1 0 - 1994 Smokeless Tobacco: Never Tobacco Cessation:Counseling Given: Not [...] Sign Reading Time Taken Comments Blood Pressure 138/84 07/28/2022 8:52 AM EDT Pulse 84 07/28/2022 8:52 AM EDT Temperature 36.3 ??C (97.4 ??F) 07/28/2022 8:52 AM ED T Respiratory Rate 20 07/28/2022 8:52 AM EDT Oxygen Saturation 97% 07/28/2022 8:52 AM EDT Inhaled Oxygen Concentration - - Weight 79.7 kg (175 lb 12.8 oz) 07/28/2022 8:52 AM EDT Height 152.4 cm (5') 07/28/2022 8:52 AM EDT Body Mass Index 34.33 07/28/2022 8:52 AM EDT documented in this encounter Functional [...] Progress Notes * Palma Jj DO - 07/28/2022 10:00 AM EDTAssociated Problem(s): Essential hypertension Goal BP : < 140/90 - at goal Compliance: - taking medications as prescribed. Advice: - continue a low salt diet and remain physically active Self Monitoring:- continue BP monitoring as previous Medication Management: - a reassessment of the patients current diagnoses, medications, labs, potential SE, appropriate dose and risks assessed and discussed today * Palma Jj DO - 07/28/2022 8:40 AM EDT Assessment Diagnoses and all orders for this visit: Essential hypertension Assessment & Plan: Goal BP : < 140/90 - at goal Compliance: - taking medications as prescribed. Advice: - continue a low salt diet and remain physically active Self Monitoring:- continue BP monitoring as previous Medication Management: - a reassessment of the patients current diagnoses, medications, labs, potential SE, appropriate dose and risks assessed and discussed today Orders: - BASIC METABOLIC PANEL Dysuria - SEP URINALYSIS POC - SEP URINALYSIS POC Palma Jj DO Family Medicine 07/28/2022 Progress Note: Vitals: 07/28/22 0852 BP: 138/84 Pulse: 84 Resp: 20 Temp: 97.4 ??F (36.3 ??C) TempSrc: Temporal SpO2: 97% Weight: 175 lb 12.8 oz (79.7 kg) Height: 5' (1.524 m) SUBJECTIVE: Chief Complaint Patient presents with ??? Follow-up 2 week f/u HTN HPI: 76 year old female who presents for follow up on blood pressure. Essential hypertension Assessment & Plan: -keep BP log for two weeks --> values on average were 130/80s -doing well, no concerns about her medication -no low blood pressures Concern for uti, dysuria for past few days Review of Systems Genitourinary: Positive for dysuria. OBJECTIVE: Physical Exam Vitals reviewed. Constitutional: General: [...] Judgment: Judgment normal. * Jill Beck - 07/28/2022 8:40 AM EDT Venipuncture in the right antecubital vein with 21 gauge needle, length 1 1/2 inch. * Palma Jj DO - 07/28/2022 8:40 AM EDT Urine culture showed bacteria. Patient has UTI. Antibiotic sent to pharmacy. Palma Jj DO Family Medicine 07/30/2022 documented in this encounter Miscellaneous Notes * Addendum Note - Aditi Saucedo RMA - 07/28/2022 8:40 AM EDTAddended by: ADITI SAUCEDO on: 07/28/2022 10:34 AM Modules accepted: Orders documented in this encounter Plan of Treatment Upcoming Encounters Date Type Department Care Team (Late st Contact Info) Description 05/16/2024 9:30 AM EST Office Visit [facility] [address] [facility] [place] [phone] Gilda Francis PA [address] [place] [address] documented as of this encounter [...] Procedure Name Priority Date/Time Associated Diagnosis Comments URINE CULTURE (NO STAIN) Routine 07/28/2022 10:34 AM EDT Dysuria BASIC METABOLIC PANEL Routine 07/28/2022 9:34 AM EDT Essential hypertension SEP URINALYSIS POC Routine 07/28/2022 9: 14 AM EDT Dysuria SEP URINALYSIS POC Routine 07/28/2022 9: 09 AM EDT Dysuria documented in this encounter Results * (ABNORMAL) URINE CULTURE (NO STAIN) (07/28/2022 10:34 AM EDT) Culture Positive Growth(A) 07/30/2022 10:57 AM EDT [facility] Culture >100,000 CFU/mL Escherichia coli SUSCEPTIBI LITY RESULT 07/30/2022 10:57 AM EDT [facility] Urine URINE SPECIMEN COLLECTION, CLEAN CATCH / [...] MICROBIOLOGY - GENERAL ORDER LILLIAN Final Result [facility] , [place] [address] * (ABNORMAL) BASIC METABOLIC PANEL (07/28/2022 9:34 AM EDT) [facility] Sodium 142 136 - 145 mmol/L 07/28/2022 4:57 PM EDT [facility] Potassium 4.3 3.5 - 5.0 mmol/L 07/28/2022 4:57 PM EDT [facility] Chloride 104 98 - 107 mmol/L 07/28/2022 4:57 PM EDT [facility] Total CO2 28 22 - 29 mmol/L 07/28/2022 4:57 PM EDT [facility] Anion Gap 10 7 - 16 mmol/L 07/28/2022 4:57 PM EDT [facility] Calcium 9.3 8.8 - 10.4 mg/dL 07/28/2022 4:57 PM EDT [facility] Glucose Lvl 104(H) 82 - 100 mg/dL 07/28/2022 4:57 PM EDT [facility] BUN 13 8 - 23 mg/dL 07/28/2022 4:57 PM EDT [facility] Creatinine 0.66 0.51 - 1.30 mg/dL 07/28/2022 4:57 PM EDT [facility] eGFR (CKD-EPIcr 2020) 92 >=60 mL/min/1.7 3 m2 07/28/2022 4:57 PM EDT [facility] Comment:Estimated GFR was ca lculated using the CKD-EPIcr (2020) equation refit without race. The equation is recommended by the National Kidney Foundation - [place] [employer] of Nephrology Task Force. Blood VENOUS BLOOD / Unknown Venipuncture / Unknown 07/28/2022 9:34 AM EDT 07/28/2022 9:34 AM EDT us Palma Jj DO CHEMISTRY ORDERABLES Final R esult [facility] [address] [facility] , [address] [place] [id number] [facility] [address] [place] [address] * (ABNORMAL) SEP URINALYSIS POC (07/28/2022 9:14 AM EDT) UA Color POC Yellow Color 07/28/2022 9:16 [...] OF CARE TEST ORDERABLE S Final Result [facility] [address] [place] [address] * (ABNORMAL) SEP URINALYSIS POC (07/28/2022 9:09 AM EDT) UA Color POC Yellow Color 07/28/2022 9:11 AM EDT [facility] UA Appear POC Clear Clear 07/28/2022 9:11 AM EDT [facility] [place] UA Gluc POC Negative Negative mg/dL 07/28/2022 9:11 AM EDT [facility] [place] UA Bili POC Negative Negative 07/28/2022 9:11 AM EDT [facility] [place] UA Ketones POC Negative Negative mg/dL 07/28/2022 9:11 AM EDT [facility] [place] UA SG POC 1.020 1.001 - 1.035 no units 07/28/2022 9:11 AM EDT [facility] [place] UA Blood POC Negative Negative 07/28/2022 9:11 AM EDT [facility] [place] UA pH POC 7.0 5.0 - 8.0 pH 07/28/2022 9:11 AM EDT [facility] [place] UA Protein POC Negative Negative mg/dL 07/28/2022 9:11 AM EDT [facility] [place] UA Urobilinogen POC 0.2 0.2, 1.0 07/28/2022 9:11 AM EDT [facility] [place] UA Nitrite POC Negative Negative 07/28/2022 9:11 AM EDT [facility] [place] UA Leuk Est POC Small(A) Negative 9:11 AM EDT [facility] [place] Urine URINE SPECIMEN COLLECTION / Unknown 07/28/2022 9:09 AM EDT 07/28/2022 9:11 AM EDT Palma Jj DO POINT OF CARE TEST ORDERABLE S Final Result [facility] [place] [address] [place] [address] documented in this encounter Visit Diagnoses Diagnosis Essential hypertension- Primary Unspecified essential hypertension Dysuria documented in this encounter Discontinued Medications Medication Sig Discontinue Reason Start Date End Da te ipratropium (ATROVENT) 21 mcg (0.03 %) Nasl Duff, Non-AerosolIndications:A cute bacterial sinusitis 2 Sprays by Nasal route 3 times daily. Cancelled by 09/16/2021 07/28/2022 documented as of this encounter Additional Health Concerns Assessment Noted Time A fall risk assessment has been complete d for the patient 07/28/2022 8:48 AM EDT documented as of this encounter Care Teams Dietetics Professor Relationship Specialty Start Date End Date Palma Jj DO [address] [place] [address] PCP - General Family Medicine 07/14/22 documented as of this encounter
--- OUTSIDE RECORDS SUMMARY | 2024-03-27 14:59 | XMS_ITS | Encounter Summary ---
Author Organization [facility] [place] [address] Care Team Providers Care Hide And Skin Classer Name Role Phone Palma Jj DO Primary Care Provider + [phone] Encounter Details Date Type Department Care Team (Latest Contact Info) Description 07/28/2022 Travel Social History Tobacco Use Types Packs/Day Years Used Date Smoking Tobacco: Former Cigarettes 0.5 5 1 990 - 1994 Smokeless Tobacco: Never Comments:quit in [...] Recorded In the last 10 days, have zach soto been in contact with someone who was [...] AM EST Office Visit [facility] [address] [place] [address] Gilda Francis PA [address] [place] [address] documented as of this encounter [...] documented as of this encounter Care Teams Hide And Skin Classer Relationship Specialty Start Date End Date Palma Jj DO [employer] [place] [id number] PCP - General Family Medicine 07/14/22 documented as of this encounter
--- OUTSIDE RECORDS SUMMARY | 2024-03-27 14:59 | XMS_ITS | Encounter Summary ---
Author Organization [facility] Address [address] [place] [address] Care Team Providers Care Compensation Agent Name Role Phone Palma Jj DO Primary Care Provider + [phone] Encounter Details Date Type Department Care Team (Latest Contact Info) Description 10/22/2022 2:30 [place] [address] Bruce Oh MD [address] [place] [phone] Right knee pain, unspecified chronicity Social History [...] EST Office Visit [facility] [address] [place] [address] Gilda Francis PA [address] [place] [address] documented as of this encounter [...] Name Priority Date/Time Associated Diagnosis Comments XR KNEE RIGHT AP LATERAL AND SUNRISE STANDING Routine 10/22/2022 2:22 PM EDT Right knee pain, unspecified chronicity documented in this encounter Results * XR KNEE RIGHT AP LATERAL AND SUNRISE STANDING (10/22/2022 2:22 PM EDT) Narrative GenericuserPrashant - 10/22/2022 2:22 PM EDT Please see physician's note from office encounter for x-ray imaging result us Bruce Oh MD IMG DIAGNOSTIC IMAGING ORDER LILLIAN Final Result documented in this encounter Visit Diagnoses Diagnosis Right knee pain, unspecified chronicity documented in this encounter Additional Health Concerns Assessment Noted Time A fall risk assessment has been complete d for the patient 07/28/2022 8:48 AM EDT documented as of this encounter Care Teams Compensation Agent Relationship Specialty Start Date End Date [place] [address] PCP - General Family Medicine 07/14/22 documented as of this encounter
--- OUTSIDE RECORDS SUMMARY | 2024-03-27 14:59 | XMS_ITS | Encounter Summary ---
Author Organization [facility] [place] [address] Care Team Providers Care Garnett Machine Operator Helper Name Role Phone Palma Jj DO Primary Care Provider + [phone] Encounter Details Date Type Department Care Team (Late st Contact Info) Description 07/30/2022 Orders Only [facility] [address] [place] [address] Palma Jj DO [address] [place] [phone] Acute cystitis without hematuria (Primary Dx) Social History Tobacco Use Types [...] Refills Last Filled Start Date End Date ciprofloxacin HCl (CIPRO) 250 mg Oral TabletIndications: Acute cystitis without hematuria Take 1 Tablet by mouth 2 times daily for 3 days. 6 Tablet 07/30/2022 08/02/2022 documented in this encounter Plan of Treatment Upcoming Encounters Date Type Department Care Team (Late st Contact Info) Description 05/16/2024 9:30 AM EST Office Visit [facility] [address] [place] [phone] Gilda Francis PA [address] [place] [address] documented as of this encounter [...] as of this encounter Visit Diagnoses Diagnosis Acute cystitis without hematuria- Primary Acute cystitis documented in this encounter Additional Health Concerns Assessment Noted Time A fall risk assessment has been complete d for the patient 07/28/2022 8:48 AM EDT documented as of this encounter Care Teams Garnett Machine Operator Helper Relationship Specialty Start Date End Date [place] [address] PCP - General Family Medicine 07/14/22 documented as of this encounter
--- OUTSIDE RECORDS SUMMARY | 2024-03-27 14:59 | XMS_ITS | Encounter Summary ---
Author Organization [facility] Address [address] [place] [address] Care Team Providers Care Bend Sorter Name Role Phone Palma Jj DO Primary Care Provider + [phone] Encounter Details Date Type Department Care Team (Latest Contact Info) Description 10/22/2022 2:00 PM [place] [address] Bruce Oh MD [address] [place] [phone] History of right hip replacement Social [...] EST Office Visit [facility] [address] [place] [phone] Gilda Francis PA [address] [place] [address] documented as of this encounter [...] Name Priority Date/Time Associated Diagnosis Comments XR HIP RIGHT AP LATERAL W AP PELVIS Routine 10/22/2022 1:58 PM EDT History of right hip replacement documented in this encounter Results * XR HIP RIGHT AP LATERAL W AP PELVIS (10/22/2022 1:58 PM EDT) Narrative GenericuserPrashant - 10/22/2022 1:58 PM EDT Please see [...] documented as of this encounter Care Teams Bend Sorter Relationship Specialty Start Date End Date Palma Jj DO [address] [place] [phone] PCP - General Family Medicine 07/14/22 documented as of this encounter
--- OUTSIDE RECORDS SUMMARY | 2024-03-27 14:59 | XMS_ITS | Encounter Summary ---
Author Organization [place] [address] Care Team Providers Care Personnel Interviewer Name Role Phone Palma Jj DO Primary Care Provider + [phone] Reason for Visit * Reason Comments Medication Refill Encounter Details Date Type Department Care Team (Late st Contact Info) Description 10/27/2022 Refill [facility] [place] [address] [address] Mann Irene MD [address] [place] [address] Medication Refill Social History Tobacco Use [...] Refills Last Filled Start Date End Date diclofenac (VOLTAREN) 75 mg Oral Tablet, Delayed Release (E.C.) TAKE 1 TABLET BY MOUTH 2 TIMES DAILY FOR 180 DAYS. WITH MEALS 180 Tablet 1 10/27/2022 01/28/2023 documented in this encounter Plan of Treatment Upcoming Encounters Date Type Department Care Team (Sedrick fox Contact Info) Description 05/16/2024 9:30 AM EST Office Visit [facility] [address] [place] [address] Gilda Francis PA [address] [place] [address] documented as of this encounter [...] TIMES DAILY FOR 180 DAYS. WITH MEALS 04/21/2022 10/27/2022 documented as of this encounter Additional Health Concerns Assessment Noted Time A fall risk assessment has been complete d for the patient 07/28/2022 8:48 AM EDT documented as of this encounter Care Teams Personnel Interviewer Relationship Specialty Start Date End Date Palma Jj DO [address] [place] [address] PCP - General Family Medicine 07/14/22 documented as of this encounter
--- OUTSIDE RECORDS SUMMARY | 2024-03-27 14:59 | XMS_ITS | Encounter Summary ---
Author Organization [facility] Address [facility] [place] [address] Care Team Providers Care Manager Of Software Name Role Phone Palma Jj DO Primary Care Provider + [phone] Reason for Referral * Consultation (Routine) - Closed Specialty Diagnoses / Procedures Referred By Ramona mcdaniel Referred To Contact Diagnoses Encounter for support and coordination of transition of care Palma Jj DO [address] [place] [address] Phone: tel: fax: [facility] [address] App[place] [address] Phone: tel: Referral ID Status Reason Start Date Expiration Date Visits Re quested Visits Authorized [id number] Closed 11/07/2022 11/07/2023 99 99 Question Answer Reason for Referral Social Determinants of Health Comments Gave her another SNAP application. Patient already uses her insurance benefits for food and food pantries for assistance. States she has trouble with her bills as well. Thank you! Reason for Visit * Reason Comments Care Transition Care Management - Face To Face Advance Care Planning CM- In office handoff CM-SDOH Encounter Details Date Type Department Care Team (Late st Contact Info) Description 11/07/2022 9:00 AM EDT Office Visit [facility] [address] [place] [phone] Geraldine Whiteside, RN Encounter for support and coordination of transition of care (Primary Dx) Social History Tobacco Use Types [...] Date Recorded PHQ-2 Total Score 0 11/07/2022 [facility] [place] of Occupat ional Health - Occupational Stress [...] No 11/07/2022 8:01 AM Tomi Huggins CLAUDIA * Does this person have difficulty [...] Tomi Huggins CLAUDIA documented in this encounter Progress Notes * Geraldine Whiteside RN - 11/07/2022 9:00 AM EDT Images from the original note were not included. Care Management (CM)Evaluation : Reason for visit: advanced care planning and social determinates of health needs Visit Type: Face to Face Assessment: Patient was a warm handoff for advanced care planning discussion by provider. She did not wish to fill out the MOST form or the Living Will with the Office Cover Seamer (OCC) during our visit. She wishes to fill it out at home, and then bring back to the office. Declined follow up visits relating to advanced care planning. Assessed her Social Determinants of Health (SDOH) wheel, saw that her food insecurity, financial, and transportation were all in the red. Gave her a SNAP application in April 2022, but patient said every time she goes to the department of community services in [place], they state they are not taking applications. Office Cover Seamer (OCC) has not heard of thisoccurring before. Patient gets 50 dollars monthly from [employer] for food assistance, but states it doesn't help her much. Did not specify her transportation needs when asked, was more concerned with her food and financial needs. Gets social security monthly, but states it isn't much. Ability to complete activities of daily living (ADLs): Patient reports they are able to complete Activities of Daily Living (ADL's) independently Advance Care Planning (ACP): See Advance Care Planning Note Tobacco use: Reviewed; patient reports no change in smoking history Impactable barriers: Patient would like assistance with: Financial Assistance Food Assistance Health Maintenance: Care Gaps addressed today include due for covid vaccine, didn't discuss Medications: Patient denies any questions or concerns related to medications Medications are affordable per patient Education: Reinforced previous education with patient on: role of office assurance services manager health care/services provided see ACP note for ACP education reinforced the food pantries that are local, she does use them. Also printed the SNAP application and gave her the exact address to try again to turn it. She doesn't wish to fill out with Office CareCoordinator (OCC) at this time. She plans on turning in soon as possible She stated that she would be agreeable to a referral to our [employer] ([employer]) team forassistance with Social Determinants of Health (SDOH) needs. They may have more resources to share with patient Handouts: Ways OCC Assists, contact card, SNAP application, Living Will, MOST Form Goals: Goals Addressed This Visit's Progress Patient will turn her SNAP application into the [facility] in [facility] and obtain food assistance by the end of 2022 (pt-stated) MyChart: Patient has MyChart; verified ability to use Next Steps: Cover Seamer contact information given / reviewed Reviewed when to call Primary Care Provider (PCP) office, urgent care, or 911 Patient declined to schedule follow up with office assurance services manager health care during this visit. Patient advised to follow up during next Primary Care Provider(PCP) visit. care management referral placed for more advanced assistance with SDOH needs Notes: Social Determinants Of Health (SDOH) assessments have been updated within the last 12 months. documented in this encounter Miscellaneous Notes * ACP (Advance Care Planning) - Geraldine Whiteside RN - 11/07/2022 9:00 AM EDT Advance Care Planning discussion: ACP discussion: This mortgage or loan underwriter and patient addressed ACP including explanation and discussion of advance directives.Minutes spent:10 Discussed what an advanced directive entails and that it is a legal document containing your advanced care needs. Discussed intravenous hydration, organ donation, do not resuscitate, life support. The following documents were provided to the patient, however the patient declines to pursue Advance Care Planning documents at this time: Smartlist: Living Will, MOST form. documented in this encounter Plan of Treatment Upcoming Encounters Date Type Department Care Team (Late st Contact Info) Description 05/16/2024 9:30 AM EST Office Visit [facility] [address] [place] [address] Gilda Francis PA [address] [place] [address] Scheduled Referrals Name Type Priority Associated Diagnoses Orde r Schedule AMB REFERRAL TO CARE MANAGEMENT Outpatient Referral Routine Encounter for support and coordination of transition of care Ordered: 11/07/2022 documented as of this encounter Goals Goal [...] as of this encounter Care Teams Manager Of Software Relationship Specialty Start Date End Date Palma Jj DO [address] [place] [address] PCP - General Family Medicine 07/14/22 documented as of this encounter
--- OUTSIDE RECORDS SUMMARY | 2024-03-27 14:59 | XMS_ITS | Encounter Summary ---
Author Organization [facility] Address [address] [place] [address] Care Team Providers Care Arbor End Mainspring Former Name Role Phone Parviz Palma Edenilson TREJO Primary Care Provider + [phone] Olesya Estrada [facility] Unavailable Unava ilable Reason for Visit * Reason Onset Date Comments Knee Pain 10/23/2022 Encounter Details Date Type Department Care Team (Late st Contact Info) Description 10/23/2022 Telephone [facility] [address] [place] [address] Bruce Oh MD [address] [place] [phone] Knee Pain Social History Tobacco Use [...] Date Recorded PHQ-2 Total Score 0 11/07/2022 [facility] [place] of Occupat ional Health - Occupational Stress [...] encounter Miscellaneous Notes * Telephone Encounter - Amanda Silveira - 10/23/2022 3:23 PM EDT Benefit summary has errors, I have requested a corrected one. * Telephone Encounter - Heather Kwon Clerical Staff - 10/23/2022 2:17 PM EDT Summary: MONOVISC-RT KNEE PLEASE REVIEW BENEFITS IN CHART documented in this encounter Plan of Treatment Upcoming Encounters Date Type Department Care Team (Late st Contact Info) Description 05/16/2024 9:30 AM EST Office Visit [facility] [address] [place] [address] Gilda Francis PA [address] [place] [address] documented as of this encounter [...] documented as of this encounter Care Teams Arbor End Mainspring Former Relationship Specialty Start Date End Date Palma Jj DO [address] [place] [address] PCP - General Family Medicine 07/14/22 Olesya Estrada LSW Nurse School 11/12/2211/27 documented as of this encounter
--- OUTSIDE RECORDS SUMMARY | 2024-03-27 14:59 | XMS_ITS | Encounter Summary ---
Author Organization [place] [address] Care Team Providers Care Rental Manager Name Role Phone Palma Jj DO Primary Care Provider + [phone] Reason for Referral * Consultation (Routine) - Closed Specialty Diagnoses / Procedures Referred By Contac t Referred To Contact Diagnoses Age-related osteoporosis without current pathological fracture Palma Jj DO [address] [place] [address] Phone: tel: fax: Miky Webb MD [address] [address] Phone: tel: fax: Referral ID Status Reason Start Date Expiration Date Visits Re quested Visits Authorized [id number] Closed 12/19/2022 12/19/2023 99 99 Comments Osteoporosis- would like to refer to the [facility] clinic Encounter Details Date Type Department Care Team (Late st Contact Info) Description 12/19/2022 Orders Only [facility] [address] [place] [id number] Palma Jj DO [address] [place] [address] Age-related osteoporosis without current pathological [...] 0 11/07/2022 [facility] [place] of Occupat ional Health - Occupational Stress [...] EST Office Visit [facility] [address] [place] [id number] Gilda Francis PA [address] [place] [address] Scheduled Referrals Name Type Priority Associated Diagnoses Orde r Schedule AMB REFERRAL TO ORTHOPEDIC SURGERY Outpatient Referral Routine Age-related osteoporosis without current pathological fracture Ordered: 12/19/2022 documented as of this encounter Goals Goal [...] documented as of this encounter Care Teams Rental Manager Relationship Specialty Start Date End Date Palma Jj DO [address] [place] [id number] PCP - General Family Medicine 07/14/22 documented as of this encounter
--- OUTSIDE RECORDS SUMMARY | 2024-03-27 14:59 | XMS_ITS | Encounter Summary ---
Author Organization [place] [address] Care Team Providers Care Manager Baby Name Role Phone Palma Jj DO Primary Care Provider + [phone] Reason for Referral * DEXA (Routine) - Closed Specialty Diagnoses / Procedures Referred By Contac t Referred To Contact Radiology Diagnoses Screening for osteoporosis Postmenopausal Procedures DX BONE DENSITY AXIAL INCLUDING VERTEBRAL FRACTURE ASSESSMENT Palma Jj DO [address] [place] [address] Phone: tel: fax: Referral ID Status Reason Start Date Expiration Date Visits Re quested Visits Authorized [id number] Closed 11/07/2022 11/07/2023 1 1 Reason for Visit * DEXA (Routine) - Closed Specialty Diagnoses / Procedures Referred By Contac t Referred To Contact Radiology Diagnoses Screening for osteoporosis Postmenopausal Procedures DX BONE DENSITY AXIAL INCLUDING VERTEBRAL FRACTURE ASSESSMENT Palma Jj DO [address] [place] [address] Phone: tel: fax: Referral ID Status Reason Start Date Expiration Date Visits Re quested Visits Authorized [id number] Closed 11/07/2022 11/07/2023 1 1 Encounter Details Date Type Department Care Team (Latest Contact Info) Description 12/19/2022 9:34 AM EDT - 12/19/2022 11:59 PM EDT Hospital Encounter [facility] DEXA [address] [place] [address] Palma Jj, DO [address] [place] [address] Screening for osteoporosis; Postmenopausal Discharge Disposition: Home or Self Care Social [...] Total Score 0 11/07/2022 [facility] [place] of Occupat ional Health - Occupational Stress [...] this encounter Medications at Time of Discharge loperamide (IMODIUM) 2 mg Oral CapsuleIndication s:Diarrhea, unspecified type Take 1 Capsule by mouth 4 times daily as needed for Diarrhea. 40 Capsule 09/17/2021 01/09/2023 predniSONE (DELTASONE) 20 mg Oral TabletIndications :Poison sumac Take 1 Tablet by mouth 2 times daily for 5 days, THEN 1 Tablet daily for 5 days, THEN 0.5 Tablets daily for 5 days. 18 Tablet 12/12/2022 12/27/2022 documented as of this encounter Discharge Disposition Disposition Code Departure Means Destination Home or Self Care documented in this encounter Plan of Treatment Upcoming Encounters Date Type Department Care Team (Late st Contact Info) Description 05/16/2024 9:30 AM EST Office Visit [facility] [address] [place] [address] Gilda Francis PA [address] [place] [address] documented as of this encounter Goals Goal [...] 10:09 AM EDT Screening for osteoporosis Postmenopausal documented in this encounter Results * DX BONE DENSITY AXIAL INCLUDING VERTEBRAL FRACTURE ASSESSMENT (12/19/2022 10:09 AM EDT) Anatomical Region Laterality Modality Dexa Scan 12/19/2022 Impressions 12/19/2022 3:56 PM EDT : Indication: The patient is a female age 65 or older who requires a bone density assessment. Study was performed on [employer] 5. Bone Density: Region ?BMD ? T-score [...] DO IMG DEXA ORDERABLES Final Re sult documented in this encounter Visit Diagnoses Diagnosis Screening for osteoporosis Special screening for osteoporosis Postmenopausal Asymptomatic postmenopausal status (age-related) (natural) documented in this encounter Additional Health Concerns Assessment Noted Time A fall risk assessment has been complete d for the patient 07/28/2022 8:48 AM EDT documented as of this encounter Care Teams Manager Baby Relationship Specialty Start Date End Date Pal[place] [address] PCP - General Family Medicine 07/14/22 documented as of this encounter
--- OUTSIDE RECORDS SUMMARY | 2024-03-27 14:59 | XMS_ITS | Encounter Summary ---
Author Organization [place] [address] Care Team Providers Care Senior Quality Manager Name Role Phone Palma Jj DO Primary Care Provider + [phone] Reason for Visit * Reason Comments Medication Refill Encounter Details Date Type Department Care Team (Late st Contact Info) Description 08/01/2022 Refill [facility] [place] [address] [address] [place] [address] [address] [place] [address] Medication Refill Social History Tobacco Use [...] ONE TIME PER WEEK 12 Capsule 3 08/01/2022 documented in this encounter Plan of Treatment Upcoming Encounters Date Type Department Care Team (Late st Contact Info) Description 05/16/2024 9:30 AM EST Office Visit [facility] [address] [place] [address] Gilda Francis PA [address] [place] [address] documented as of this encounter [...] CAPSULE BY MOUTH ONE TIME PER WEEK 07/11/2022 08/01/2022 documented as of this encounter Additional Health Concerns Assessment Noted Time A fall risk assessment has been complete d for the patient 07/28/2022 8:48 AM EDT documented as of this encounter Care Teams Senior Quality Manager Relationship Specialty Start Date End Date Palma [place] [address] PCP - General Family Medicine 07/14/22 documented as of this encounter
--- OUTSIDE RECORDS SUMMARY | 2024-03-27 14:59 | XMS_ITS | Encounter Summary ---
Author Organization [place] [address] Care Team Providers Care Material Expeditor Name Role Phone Palma Jj DO Primary Care Provider + [phone] Reason for Referral * Consultation (Routine) - Closed Specialty Diagnoses / Procedures Referred By Contac t Referred To Contact Diagnoses Advanced care planning/counseling discussion Palma Jj DO [address] [place] [address] Phone: tel: fax: [facility] Care Managment [facility] [address] [place] [address] Phone: tel: Referral ID Status Reason Start Date Expiration Date Visits Re quested Visits Authorized [id number] Closed 11/07/2022 11/07/2023 99 99 Question Answer Reason for Referral Advance Care Planning * DEXA (Routine) - Closed Specialty Diagnoses / Procedures Referred By Contac t Referred To Contact Radiology Diagnoses Screening for osteoporosis Postmenopausal Procedures DX BONE DENSITY AXIAL INCLUDING VERTEBRAL FRACTURE ASSESSMENT Palma Jj DO [address] [place] [address] Phone: tel: fax: Referral ID Status Reason Start Date Expiration Date Visits Re quested Visits Authorized [id number] Closed 11/07/2022 11/07/2023 1 1 Reason for Visit * Reason Comments Medicare Annual Wellness Medicare/ Encounter Details Date Type Department Care Team ([place] st Contact Info) Description 11/07/2022 8:20 AM EDT Office Visit [facility] [place] [facility] [address] [place] [address] Palma Jj DO [address] [place] [address] Medicare annual wellness visit, subsequent (Primary Dx); Screening for osteoporosis; Postmenopausal; Burning with urination; Advanced care planning/counseling discussion; PVD (peripheral vascular disease) (HCC); Essential hypertension; Bilateral carotid artery stenosis; Thyroid cyst Social History Tobacco Use Types Packs/Day Years [...] Total Score 0 11/07/2022 [facility] [place] of Occupat ional Health - Occupational Stress [...] Sign Reading Time Taken Comments Blood Pressure 130/70 11/07/2022 8:02 AM EDT Pulse 74 11/07/2022 8:02 AM EDT Temperature 36.8 ??C (98.2 ??F) 11/07/2022 8:02 AM ED T Respiratory Rate 18 11/07/2022 8:02 AM EDT Oxygen Saturation 98% 11/07/2022 8:02 AM EDT Inhaled Oxygen Concentration - - Weight 74.4 kg (164 lb) 11/07/2022 8:02 AM EDT Height 152.4 cm (5') 11/07/2022 8:02 AM EDT Body Mass Index 32.03 11/07/2022 8:02 AM EDT documented in this [...] Progress Notes * Palma Jj DO - 11/07/2022 11:04 AM EDTAssociated Problem(s): Thyroid cyst Repeat ultrasound around 03/2023 * Palma Jj DO - 11/07/2022 11:03 AM EDTAssociated Problem(s): Bilateral carotid artery stenosis Needs repeat US around 2023 * Palma Jj DO - 11/07/2022 11:03 AM EDTAssociated Problem(s): Essential hypertension Goal BP: <140/90 in office and <135/85 at home - at goal Compliance: - compliant with medications Medication Management: - a reassessment of the patients current diagnoses, medications, labs, potential SE, appropriate dose and risks assessed and discussed today * Palma Jj DO - 11/07/2022 8:20 AM EDT Assessment Diagnoses and all orders for this visit: Medicare annual wellness visit, subsequent Screening for osteoporosis - DX BONE DENSITY AXIAL INCLUDING VERTEBRAL FRACTURE ASSESSMENT; Future Postmenopausal - DX BONE DENSITY AXIAL INCLUDING VERTEBRAL FRACTURE ASSESSMENT; Future Burning with urination - URINE CULTURE (NO STAIN); Future Advanced care planning/counseling discussion - AMB REFERRAL TO CARE MANAGEMENT PVD (peripheral vascular disease) (HCC) (Chronic) Comments: carotid artery stenosis. continue monitoring. repeat US in two years from prior (2023) Essential hypertension Assessment & Plan: Goal BP: <140/90 in office and <135/85 at home - at goal Compliance: - compliant with medications Medication Management: - a reassessment of the patients current diagnoses, medications, labs, potential SE, appropriate dose and risks assessed and discussed today Bilateral carotid artery stenosis Overview: * The right internal carotid artery demonstrates high end 1-39% stenosis. * The left internal carotid artery demonstrates 1-39% mild stenosis. 2021 Assessment & Plan: Needs repeat US around 2023 Thyroid cyst Overview: 03/30/22 Thyroid US: Nodule [...] small and benign-appearing thyroid nodules. Assessment & Plan: Repeat ultrasound around 03/2023 -Patient unable to leave urine sample in office before leaving today and plans to drop off urine sample at some point for evaluation Palma Jj, DO Family Medicine 11/07/2022 Vitals: 11/07/22 0802 BP: 130/70 Pulse: 74 Resp: 18 Temp: 98.2 ??F (36.8 ??C) SpO2: 98% Weight: 164 lb (74.4 kg) Height: 5' (1.524 m) SUBJECTIVE: Chief Complaint Patient presents with Medicare Annual Wellness Medicare/ Ms. Hylton is a 77 y.o. female here for an Subsequent Annual [...] the bathroom?: Yes Does the patient have stairs in the home?: No (In Office Assessment Only): Is the patient able to ambulate without assistance/device and with a gait steady?: Yes Functional Status Assessment Functional Level: self care Functional Mobility Assessment: independent w/o assist device Assessment of transportation needs: still drives most of the time Functional Activities of Daily Living Limitations: No issues Activities of Daily Living Assistive Device Assessment Assistive Devices: None Osteoporosis Screening Assessment Has the patient had a DEXA (Bone Density) scan in the past 2 years?: (!) No Results for orders placed during the hospital encounter of 02/10/19 DX BONE DENSITY AXIAL SKELETON Narrative Indication: The patient is a female age 65 or older who requires a bone density assessment. Study was performed on [employer] 5. Bone Density: Region BMD T-score Z-score [...] of interest. Reported by: Chula Smith PA-C, [facility] on 02/10/2019 12:48:00 PM. Abnormal Pains Assessment [...] No results found for this visit on 11/07/22. Patient Active Problem List Diagnosis Hypercholesterolemia OA (osteoarthritis)-s/p RIGHT TOTAL HIP REPLACEMENT 02/16/14. 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) Presence of left artificial knee joint Essential hypertension Past Medical History: Diagnosis Date Allergy Arthritis generalized Does use hearing aid bilateral Hyperlipidemia Kidney stone hx of Motion sickness seasick Nephrolithiasis 12/19/2019 Added automatically from request for surgery [id number] Osteopenia Post-operative nausea and vomiting Urinary tract infection frequent UTI's Past Surgical History: Procedure Laterality Date BLADDER TUMOR EXCISION N/A 10/26/2019 cystoscopy, bladder biopsy and fulguration of lesions of bladder; Surgeon: Amari Wheeler MD; Location: [facility] OR; Service: Urology CATARACT REMOVAL [...] wave lithotripsy; Surgeon: Dinh Wheeler MD; Location: [facility]; Service: Urology HEMORRHOID SURGERY HIP ARTHROPLASTY Right 02/16/2014 RIGHT TOTAL HIP REPLACEMENT; Surgeon: Bruce Oh MD; Location: [facility]; Service: Orthopedics HYSTERECTOMY complete LITHOTRIPSY Right 11/28/2019 Surgeon: Amari Wheeler MD; Location: [facility] MA[facility] OR; Service: Urology LUMBAR DISC SURGERY 11/03/2012 Surgeon: Elza Bautista MD; Location: [facility]; Service: TOTAL KNEE ARTHROPLASTY Left 12/28/2018 left knee total replacement; Surgeon: Bruce Oh MD; Location: [facility]; Service: Orthopedics URETEROSCOPY Right 01/02/2020 cystoscopy, Right Flexible Ureteroscopy, Retrograde, Stent Exchange, Laser Lithotripsy, Basket Retrieval of stone fragments; Surgeon: Amari Wheeler MD; Location: [facility]; Service: Urology Allergies Allergen Reactions Celecoxib Rash Current Outpatient Medications on File Prior to Visit Medication Sig Dispense Refill ALLERGY RELIEF D-24HR 10-240 mg Oral Tablet Sustained Release 24 hr TAKE 1 TABLET BY MOUTH EVERY DAY NOT COVERED 30 Tablet 2 aspirin 81 mg Oral Tablet, Delayed Release (E.C.) Take 1 Tab by mouth every morning. atorvastatin (LIPITOR) 10 mg Oral Tablet TAKE 1 TABLET BY MOUTH EVERY DAY 90 Tablet 0 diclofenac (VOLTAREN) 75 mg Oral Tablet, Delayed Release (E.C.) TAKE 1 TABLET BY MOUTH 2 TIMES DAILY FOR 180 DAYS. WITH MEALS 180 Tablet 1 ergocalciferol (DRISDOL) 1,250 mcg (50,000 unit) Oral Capsule TAKE 1 CAPSULE BY MOUTH ONE TIME PER WEEK 12 Capsule 3 lisinopriL (PRINIVIL;ZESTRIL) 10 mg Oral Tablet TAKE 1 TABLET BY MOUTH EVERY DAY 90 Tablet 2 loperamide (IMODIUM) 2 mg Oral Capsule Take 1 Capsule by mouth 4 times daily as needed for Diarrhea. 40 Capsule 0 No current facility-administered medications on file prior to visit. Social History Socioeconomic History Marital status: Spouse name: None Number of children: None Years of education: None Highest education level: None Tobacco Use Smoking status: Former Packs/day: 0.50 Years: 5.00 Pack years: 2.50 Types: Cigarettes Quit date: 1994 Years since quittin.5 Passive exposure: Never Smokeless tobacco: Never Tobacco comments: quit in 1998 Vaping Use Vaping Use: Never used Substance and Sexual Activity Alcohol use: No Drug use: No Social Determinants of Health Financial Resource Strain: High Risk Difficulty of Paying Living Expenses: Hard Food Insecurity: Food Insecurity Present Worried About Running Out of Food in the Last Year: Often true Ran Out of Food in the Last Year: Often true Transportation Needs: Unmet Transportation Needs Lack of Transportation (Medical): Yes Lack of Transportation (Non-Medical): No Stress: No Stress Concern Present Feeling of Stress : Only a little Family History Problem Relation Age of Onset Early Father accident Early Sister Substance Abuse Sister Early Brother accident Early Mother accident Anesth Problems Neg Hx Immunization History Administered Date(s) Administered Influenza High Dose 02/21/2015, 02/09/2016, 01/06/2017, 02/21/2019, 01/28/2020 Influenza Vaccine Quadrivalent Adjuvanted 01/28/2020, 03/29/2022 Influenza Vaccine, Unspecified Formulation 02/04/2014, 02/09/2016 Moderna SARS-CoV-2 Bivalent Booster Vaccine 12+ Years (Schultz Border) 02/10/2022 Moderna SARS-CoV-2 Vaccine 12+ Yrs (Light blue border) 07/03/2020, 07/31/2020 PPD Test 02/20/2014 Pneumococcal Conjugate Vaccine 13 Valent 02/28/2015 Pneumococcal Polysaccharide 23 Valent 10/13/2012 Quadrivalent Influenza High Dose 02/05/2021 TST,Unspecified Formulation 12/31/2018, 01/07/2019 Tdap 02/28/2015 Health Maintenance Topic Date Due COVID-19 Vaccine (4 - Moderna series) 06/13/2022 Zoster (1 of 2) 11/08/2023 (Originally 09/19/1997) Fall Risk Assessment 07/29/2023 Wellness Exam Medicare 11/08/2023 Colon Cancer Screening 07/10/2024 DTaP/TDaP/Td (2 - Td or Tdap) 02/28/2025 Influenza Vaccine Completed Bone Density Screening Completed Hepatitis C Screening Completed Pneumococcal Vaccine 65+ Completed Hepatitis B Vaccine Aged Out Health Maintenance Due Topic Date Due COVID-19 Vaccine (4 - Moderna series) 06/13/2022 Patient Care Team: Palma Jj DO as PCP - General (Family Medicine) Additional issues addressed today: -dexa scan -advance directive -vaccines Review of Systems Gastrointestinal: Negative for anal bleeding and blood in stool. Genitourinary: Negative for vaginal bleeding. OBJECTIVE: Physical Exam Vitals reviewed. Constitutional: General: She is not in acute distress. Appearance: Normal appearance. She is not ill-appearing, toxic-appearing or diaphoretic. HENT: Head: Normocephalic and atraumatic. Right Ear: Tympanic membrane normal. Left Ear: Tympanic membrane normal. Cardiovascular: Rate and Rhythm: Normal rate. [...] Content: Thought content normal. Judgment: Judgment normal. documented in this encounter Miscellaneous Notes * Patient Instructions - Palma Jj DO - 11/07/2022 8:20 AM EDT Today as part of your Medicare Wellness [...] record. Health Maintenance Due Topic Date Due ??? Zoster (1 of 2) Never done ??? COVID-19 Vaccine (4 - Moderna series) 06/13/2022 ??? Wellness Exam Medicare 09/25/2022 Some of these topics may have been addressed either during the visit such as fall risk screenings, depression screenings, or others that were completed via questionnaire. Some immunizations may have been updated. These topics will reflect in your MyChart account as completed once your provider closes [...] care needs and those are also important. Today as part of your Medicare Wellness [...] record. Health Maintenance Due Topic Date Due ??? Zoster (1 of 2) Never done ??? COVID-19 Vaccine (4 - Moderna series) 06/13/2022 ??? Wellness Exam Medicare 09/25/2022 Some of these topics may have been addressed either during the visit such as fall risk screenings, depression screenings, or others that were completed via questionnaire. Some immunizations may have been updated. These topics will reflect in your [employer] account as completed once your provider closes [...] Office Visit [facility] [address] [place] [address] Gilda Francis PA [address] [place] [address] Scheduled Orders Name Type Priority Associated Diagnoses Orde r Schedule URINE CULTURE (NO STAIN) Microbiology Routine Burning with urination 1 Occurrences starting 11/07/2022 until 11/08/2023 Scheduled Referrals Name Type Priority Associated Diagnoses Order Schedule AMB REFERRAL TO CARE MANAGEMENT Outpatient Referral Routine Advanced care planning/counseling discussion Ordered: 11/07/2022 documented as of this encounter [...] Whiteside RN documented as of this encounter Results * DX BONE DENSITY AXIAL INCLUDING VERTEBRAL FRACTURE ASSESSMENT (12/19/2022 10:09 AM EDT) Anatomical Region Laterality Modality Dexa Scan 12/19/2022 Impressions 12/19/2022 3:56 PM EDT : Indication: The patient is a female age 65 or older who requires a bone density assessment. Study was performed on [employer] 5. Bone Density: Region ?BMD ? T-score [...] at a health care facility Screening for osteoporosis Special screening for osteoporosis Postmenopausal Asymptomatic postmenopausal status (age-related) (natural) Burning with urination Dysuria Advanced care planning/counseling discussion Other specified counseling PVD (peripheral vascular disease) (HCC) Peripheral vascular disease, unspecified Essential hypertension Unspecified essential hypertension Bilateral carotid artery stenosis Occlusion and stenosis of multiple and bilateral precerebral arteries without mention of cerebral infarction Thyroid cyst Cyst of thyroid Screening for osteoporosis Special screening for osteoporosis Postmenopausal Asymptomatic postmenopausal status (age-related) (natural) documented in this encounter Additional Health Concerns Assessment Noted Time A fall risk assessment has been complete d for the patient 07/28/2022 8:48 AM EDT documented as of this encounter Care Teams Material Expeditor Relationship Specialty Start Date End Date Palma Jj DO [address] [place] [address] PCP - General Family Medicine 07/14/22 documented as of this encounter
--- OUTSIDE RECORDS SUMMARY | 2024-03-27 14:59 | XMS_ITS | Encounter Summary ---
Author Organization [place] [address] Care Team Providers Care Medical Charge Entry Specialist Name Role Phone Palma Jj DO Primary Care Provider + [phone] Olesya Estrada ESCAPEMENT MATCHER Unavailable Unava ilable Reason for Visit * Reason Onset Date Comments Information Only 10/28/2022 Mri Encounter Details Date Type Department Care Team (Late st Contact Info) Description 10/28/2022 Telephone [facility] [address] [place] [address] Palma Jj, DO [address] [place], [place] [id number] Information Only (Mri ) Social History Tobacco Use Types Packs/Day [...] Total Score 0 11/07/2022 [facility] [place] of Occupat ional Health - Occupational Stress [...] place to sleep or slept in a assisted (including now)? No 11/12/2022 Comments No Sex [...] Telephone Encounter - Brittany Slaughter CCMA - 10/28/2022 2:46 PM EDT Ok noted * Telephone Encounter - Radha Domingo - 10/28/2022 2:37 PM EDT Pt called to informed pcp Dr. Oh looked over xr results and recommend MRI due to sciatic nerve Pt has MRI appt scheduled for 11/03 documented in this encounter Plan of Treatment Upcoming Encounters Date Type Department Care Team (Late st Contact Info) Description 05/16/2024 9:30 AM EST Office Visit [facility] [address] [place] [address] Gilda Francis PA [address] [place] [address] documented as of this encounter [...] documented as of this encounter Care Teams Medical Charge Entry Specialist Relationship Specialty Start Date End Date Palma Jj DO [employer] [place] [address] PCP - General Family Medicine 07/14/22 Olesya Estrada LSW Pharmacovigilance Specialist 11/12/2211/27 documented as of this encounter
--- OUTSIDE RECORDS SUMMARY | 2024-03-27 14:59 | XMS_ITS | Encounter Summary ---
Author Organization [facility] Address [address] [place] [address] Care Team Providers Care Data Capture Specialist Name Role Phone ParvizPalma Edenilson TREJO Primary Care Provider + [phone] Reason for Visit * Reason Onset Date Comments Patient Question 12/05/2022 pt needs list o f back drs that she did not receive at last appointment Encounter Details Date Type Department Care Team (Late st Contact Info) Description 12/05/[address] [address] Bruce Oh MD [address] [place] [phone] Patient Question (pt needs list of back drs that she did not receive at last appointment) Social History Tobacco Use Types Packs/Day Years [...] Date Recorded PHQ-2 Total Score 0 11/07/2022 [facility] [place] of Occupat ional Health - Occupational Stress [...] encounter Miscellaneous Notes * Telephone Encounter - Toya Woo ATC - 12/09/2022 12:03 PM EDTSummary: Attempt 3 LVM. * Telephone Encounter - Toya Woo ATC - 12/08/2022 10:09 AM EDTSummary: attempt 2 Unable to complete call to number provided. * Telephone Encounter - Toya Woo ATC - 12/05/2022 2:08 PM EDT LVM for son. * Telephone Encounter - Toya Woo ATC - 12/05/2022 8:49 AM EDT Number was not accepting calls. Will try again later. Please schedule with Nayeli Thapa or Preeti Milligan if she calls. * Telephone Encounter - Rukhsana Arreola, Clerical Staff - 12/05/2022 8:10 AM EDT Patient needs a list of back drs that she did not receive at last appointment documented in this encounter Plan of Treatment Upcoming Encounters Date Type Department Care Team (Late st Contact Info) Description 05/16/2024 9:30 AM EST Office Visit [facility] [address] [place] [address] Gilda Francis PA [address] [place] [address] documented as of this encounter [...] 10:50 AM EDT) Yes Geraldine Whiteside, UMA documented as of this encounter Visit Diagnoses Not on filedocumented in this encounter Additional Health Concerns Assessment Noted Time A fall risk assessment has been complete d for the patient 07/28/2022 8:48 AM EDT documented as of this encounter Care Teams Data Capture Specialist Relationship Specialty Start Date End Date Palma [place] [address] PCP - General Family Medicine 07/14/22 documented as of this encounter
--- OUTSIDE RECORDS SUMMARY | 2024-03-27 14:59 | XMS_ITS | Encounter Summary ---
Author Organization [facility] Address [address] [place] [address] Care Team Providers Care Process Analyst Name Role Phone Palma Jj DO Primary Care Provider + [phone] Reason for Visit * MRI/CAT Scan (Routine) - Closed Specialty Diagnoses / Procedures Referred By Ramona mcdaniel Referred To Contact Orthopedic Surgery Diagnoses History of right hip replacement Right knee pain, unspecified chronicity Procedures MRI LUMBAR SPINE WO CONTRAST Bruce Oh MD [address] [place] [address] Phone: tel: fax: [facility] [address] [place] [id number] Phone: tel: fax: Referral ID Status Reason Start Date Expiration Date Visits Re quested Visits Authorized [id number] Closed 10/22/2022 10/22/2023 1 1 Encounter Details Date Type Department Care Team (Latest Contact Info) Description 11/03/2022 11:00 AM EDT Ancillary Procedure [facility] [address] [facility] [address] [place] [address] Bruce Oh MD [address] [place] [address] History of right hip replacement; Right knee pain, unspecified chronicity Social History [...] EST Office Visit [facility] [address] [place] [address] Gilda Francis PA [address] [place] [address] documented as of this encounter [...] Procedure Name Priority Date/Time Associated Diagnosis Comments MRI LUMBAR SPINE WO CONTRAST Routine 11/03/2022 11:44 AM EDT History of right hip replacement Right knee pain, unspecified chronicity documented in this encounter Results * MRI LUMBAR SPINE WO CONTRAST (11/03/2022 11:44 AM EDT) Narrative [facility] - 11/03/2022 11:44 AM EDT Please see the scanned MRI report associated with this order on the Imaging tab of the patient's chart. us Bruce Oh MD IMG MRI ORDERABLES Final Res ult [facility] documented in this encounter Visit Diagnoses Diagnosis History of right hip replacement Right knee pain, unspecified chronicity documented in this encounter Additional Health Concerns Assessment Noted Time A fall risk assessment has been complete d for the patient 07/28/2022 8:48 AM EDT documented as of this encounter Care Teams Process Analyst Relationship Specialty Start Date End Date Palma Jj DO [address] [place] [id number] PCP - General Family Medicine 07/14/22 documented as of this encounter
--- OUTSIDE RECORDS SUMMARY | 2024-03-27 15:00 | XMS_ITS | Encounter Summary ---
Author Organization [facility] Address [place] [address] Care Team Providers Care Bricklayer Helper Name Role Phone Mann Irene MD Primary Care Provider [phone] Reason for Visit * Reason Onset Date Comments Other 07/11/2022 question about a ppt today Encounter Details Date Type Department Care Team (Late st Contact Info) Description 07/11/2022 Telephone [facility] [address] [place] [address] Palma Jj, DO [address] [place] [address] Other (question about appt today ) Social History Tobacco Use Types Packs/Day [...] Telephone Encounter - Julianna Lea MA - 07/11/2022 1:59 PM EST Pt rescheduled. * Telephone Encounter - Ira Stubbs - 07/11/2022 1:17 PM EST pt is calling in regards to appt today with dr Jj at 3 today. she is supposed to f/u over new BPmedication, but b/c of weather she doesn't have a ride and wants to know if she can reschedule apptfor Thursday or if she has to be seen today. please advise and call back lucian documented in this encounter Plan of Treatment Upcoming Encounters Date Type Department Care Team (Late st Contact Info) Description 05/16/2024 9:30 AM EST Office Visit [facility] [address] [place] [phone] Gilda Francis PA [address] [place] [address] documented as of this encounter Goals Goal Patient Goal Type Associated Problems Recent Progress Patient-Stated? Author Patient will take her blood sugar once a day for a week in the morning, and report the sugars back to provider General On track(02/28/20 10:50 AM EDT) Yes Geraldine Whiteside, RN documented as of this encounter Visit Diagnoses Not on filedocumented in this encounter Additional Health Concerns Assessment Noted Time A fall risk assessment has been complete d for the patient 02/05/2021 7:27 AM EDT documented as of this encounter Care Teams Bricklayer Helper Relationship Specialty Start Date End Date Mann Irene MD [address] [place] [phone] PCP - General Internal Medicine 08/23/12 07/13/22 documented as of this encounter
--- OUTSIDE RECORDS SUMMARY | 2024-03-27 15:00 | XMS_ITS | Encounter Summary ---
Author Organization [facility] [place] [address] Care Team Providers Care Transportation Planning Engineer Name Role Phone Mann Irene MD Primary Care Provider [phone] Reason for Visit * Reason Onset Date Comments Results 04/24/2022 biotel Encounter Details Date Type Department Care Team (Late st Contact Info) Description 04/24/2022 Telephone [facility] [address] [place] [address] Jesus Nick MD [address] [place] [phone] Results (biotel) Social History Tobacco Use Types Packs/Day Years [...] suspected to have Coronavirus/COVID-19? No / Unsure 04/04/2022 9:52 AM EST documented as of this encounter Functional Status [...] encounter Miscellaneous Notes * Telephone Encounter - Jill Valencia, A - 04/25/2022 10:19 AM EST Per BT this has been noted * Telephone Encounter - Erma Collado RMA - 04/24/2022 4:40 PM EST Called patient informed her of Dr. Nick recommendation to go to go to the ER. She says she feelsfine, having no symptoms so no need to go to the ER as the battery was and that she has it on the field support representative right now. I informed her I would let Dr. Nick know this. * Telephone Encounter - Jill Valencia RMA - 04/24/2022 3:27 PM EST Per BT pt needs to proceed to the ER S[facility]. Unable to reach pt. Son's MB is full Left msg on friend Leela Dominguez's VM * Telephone Encounter - Deepa Renee MA - 04/24/2022 2:00 PM EST 1:31 pm today the patient was in sinus ramin with multiple pauses back to back. 12.8, 6.3, 3.8, 3.8then off sets into junctional rhythm and then back into sinus rhythm. They reached out to the patient to see if they were having symptoms and there was no answer. fyi documented in this encounter Plan of Treatment Upcoming Encounters Date Type Department Care Team (Late st Contact Info) Description 05/16/2024 9:30 AM EST Office Visit [facility] [address] [place] [address] Gilda Francis PA [address] [place] [address] documented as of this encounter Goals Goal Patient Goal Type Associated Problems Recent Progress Patient-Stated? Author Patient will take her blood sugar once a day for a week in the morning, and report the sugars back to provider General On track(02/28/20 10:50 AM EDT) Yes Geraldine Whiteside RN documented as of this encounter Visit Diagnoses Not on filedocumented in this encounter Additional Health Concerns Assessment Noted Time A fall risk assessment has been complete d for the patient 02/05/2021 7:27 AM EDT documented as of this encounter Care Teams Transportation Planning Engineer Relationship Specialty Start Date End Date Mann Irene MD [address] [place] [address] PCP - General Internal Medicine 08/23/12 07/13/22 documented as of this encounter
--- OUTSIDE RECORDS SUMMARY | 2024-03-27 15:00 | XMS_ITS | Encounter Summary ---
Author Organization [place] [address] Care Team Providers Care Communications Supervisor Name Role Phone Palma jJ DO Primary Care Provider + [phone] Reason for Visit * Reason Comments Medication Refill Encounter Details Date Type Department Care Team (Late st Contact Info) Description 07/18/2022 Refill [facility] [place] [address] Mann [place] [address] [place] [address] Medication Refill Social History Tobacco Use [...] BY MOUTH EVERY DAY 90 Tablet 07/18/2022 10/28/2022 documented in this encounter Plan of Treatment Upcoming Encounters Date Type Department Care Team (Late st Contact Info) Description 05/16/2024 9:30 AM EST [facility] [address] [facility] [address] Gilda Francis PA [address] [facility] [address] documented as of this encounter Goals Goal [...] TAKE 1 TABLET BY MOUTH EVERY DAY 10/21/2021 07/18/2022 documented as of this encounter Additional Health Concerns Assessment Noted Time A fall risk assessment has been complete d for the patient 02/05/2021 7:27 AM EDT documented as of this encounter Care Teams Communications Supervisor Relationship Specialty Start Date End Date [place] [address] PCP - General Family Medicine 07/14/22 documented as of this encounter
--- OUTSIDE RECORDS SUMMARY | 2024-03-27 15:00 | XMS_ITS | Encounter Summary ---
Author Organization [facility] Address [place] [address] Care Team Providers Care Rn Discharge Name Role Phone Mann Irene MD Primary Care Provider [phone] Encounter Details Date Type Department Care Team (Late st Contact Info) Description 07/10/2022 Orders Only [facility] [address] [place] [address] Palma Jj, DO [address] [place], [place] [phone] Essential hypertension (Primary Dx) Social History Tobacco Use Types [...] by mouth daily. 30 Tablet 2 07/10/2022 10/07/2022 documented in this encounter Plan of Treatment Upcoming Encounters Date Type Department Care Team (Late st Contact Info) Description 05/16/2024 9:30 AM EST Office Visit [facility] [address] [facility] [place] [address] Gilda Francis PA [address] [facility] [address] documented as of this encounter Goals Goal Patient Goal Type Associated Problems Recent Progress Patient-Stated? Author Patient will take her blood sugar once a day for a week in the morning, and report the sugars back to provider General On track(02/28/20 10:50 AM EDT) Yes Geraldine Whiteside RN documented as of this encounter Visit Diagnoses Diagnosis Essential hypertension- Primary Unspecified essential hypertension documented in this encounter Additional Health Concerns Assessment Noted Time A fall risk assessment has been complete d for the patient 02/05/2021 7:27 AM EDT documented as of this encounter Care Teams Rn Discharge Relationship Specialty Start Date End Date Mann Irene MD [address] [place] [id number] PCP - General Internal Medicine 08/23/12 07/13/22 documented as of this encounter
--- OUTSIDE RECORDS SUMMARY | 2024-03-27 15:00 | XMS_ITS | Encounter Summary ---
Author [place] [address] Care Team Providers Care Sport Internship Name Role Phone Mann Irene MD Primary Care Provider Reason for Visit * Reason Onset Date Comments Symptom Call 04/25/2022 Light headed, di zzy, high BP Encounter Details Date Type Department Care Team (Late st Contact Info) Description 04/25/2022 Telephone [facility] [place] [facility] [place] [address] Mann Irene MD [address] [place] [address] Symptom Call (Light headed, dizzy, high BP) Social History Tobacco Use Types Packs/Day Years [...] encounter Miscellaneous Notes * Telephone Encounter - Rosa Isela Weeks MA - 04/25/2022 1:44 PM EST FYI, patient advised to go to ED * Telephone Encounter - Luis Fuller - 04/25/2022 1:38 PM EST PT stated her BP was 194/123, and that she felt light headed and dizzy. She was requesting to come to the office to have her BP checked. Office stated that Dr. Carl Irene advised for the PT to go to the ER. PT became angry and stated that is ridiculous, but whatever and disconnected the call. documented in this encounter Plan of Treatment Upcoming Encounters Date Type Department Care Team (Late st Contact Info) Description 05/16/2024 9:30 AM EST Office Visit [facility] [address] [place] [address] Gilda Francis PA [address] [place] [address] documented as of this encounter Goals Goal Patient Goal Type Associated Problems Recent Progress Patient-Stated? Author Patient will take her blood sugar once a day for a week in the morning, and report the sugars back to provider General On track(02/28/20 23 10:50 AM EDT) Yes Geraldine Whiteside, RN documented as of this encounter Visit Diagnoses Not on filedocumented in this encounter Additional Health Concerns Assessment Noted Time A fall risk assessment has been complete d for the patient 02/05/2021 7:27 AM EDT documented as of this encounter Care Teams Sport Internship Relationship Specialty Start Date End Date Mann Irene MD [address] [place] [address] PCP - General Internal Medicine 08/23/12 07/13/22 documented as of this encounter
--- OUTSIDE RECORDS SUMMARY | 2024-03-27 15:00 | XMS_ITS | Encounter Summary ---
Author Organization [place] [address] Care Team Providers Care Pupil Personnel Worker Name Role Phone Mann Irene MD Primary Care Provider [phone] Reason for Visit * Reason Onset Date Comments Hospital Follow Up 04/02/2022 Encounter Details Date Type Department Care Team (Late st Contact Info) Description 04/02/2022 Patient Outreach [facility] [address] [place] [address] Nerissa Vargas, RN Hospital Follow Up Social History Tobacco Use Types Packs/Day Years [...] In the last 10 days, have zach u been in contact with someone who was confirmed or suspected to have Coronavirus/COVID-19? No / Unsure 03/29/2022 6:11 AM EST documented as of this encounter [...] documented in this encounter Progress Notes * Nerissa Vargas, RN - 04/02/2022 2:16 PM EST Patient Outreach Second attempt to contact patient regarding Hospital Discharge follow-up Outcome: ??? Patient did not answer ??? HIPAA compliant voicemail left with this RN's contact number and information on Nurse Now Line * Nerissa Vargas, RN - 04/02/2022 8:57 AM EST Patient Outreach Attempted to contact patient regarding Hospital Discharge follow-up Outcome: ??? Patient did not answer ??? HIPAA compliant voicemail left with this RN's contact number documented in this encounter Plan of Treatment Upcoming Encounters Date Type Department Care Team (Late st Contact Info) Description 05/16/2024 9:30 AM EST Office Visit [facility] [address] [place] [address] Gilda Francis PA [address] [place] [address] documented as of this encounter Visit Diagnoses Not on filedocumented in this encounter Additional Health Concerns Assessment Noted Time A fall risk assessment has been complete d for the patient 02/05/2021 7:27 AM EDT documented as of this encounter Care Teams Pupil Personnel Worker Relationship Specialty Start Date End Date Mann Irene MD [address] [place] [phone] PCP - General Internal Medicine 08/23/12 07/13/22 documented as of this encounter
--- OUTSIDE RECORDS SUMMARY | 2024-03-27 15:00 | XMS_ITS | Encounter Summary ---
Author Organization [place] [address] Care Team Providers Care Mortgage Manager Name Role Phone Mann Irene MD Primary Care Provider [phone] Reason for Visit * Reason Comments Medication Refill Encounter Details Date Type Department Care Team (Late st Contact Info) Description 07/10/[address] [facility] [place] [address] Mann [place] [address] [address] [place] [address] Medication Refill Social History Tobacco Use [...] TIME PER WEEK 12 Capsule 3 07/11/2022 documented in this encounter Plan of Treatment Upcoming Encounters Date Type Department Care Team (Late st Contact Info) Description 05/16/2024 9:30 AM EST Office Visit [facility] [address] [place] [address] Gilda Francis PA [address] [place] [address] documented as of this encounter Goals Goal [...] CAPSULE BY MOUTH ONE TIME PER WEEK 05/01/2022 07/11/2022 documented as of this encounter Additional Health Concerns Assessment Noted Time A fall risk assessment has been complete d for the patient 02/05/2021 7:27 AM EDT documented as of this encounter Care Teams Mortgage Manager Relationship Specialty Start Date End Date Mann Irene MD [address] [place] [phone] PCP - General Internal Medicine 08/23/12 07/13/22 documented as of this encounter
--- OUTSIDE RECORDS SUMMARY | 2024-03-27 15:00 | XMS_ITS | Encounter Summary ---
Author Organization [facility] [place] [address] Care Team Providers Care Hay Stacker Operator Name Role Phone Mann Irene MD Primary Care Provider [phone] Encounter Details Date Type Department Care Team (Latest Contact Info) Description 03/29/2022 Travel Social History Tobacco Use Types Packs/Day [...] AM EST Office Visit [facility] [address] [place] [address] Gilda Francis PA [address] [place] [address] documented as of this encounter Visit Diagnoses Not on filedocumented in this encounter Additional Health Concerns Infection Onset Date Last Indicated Resolved Time R/O COVID-19 03/29/2022 03/29/2022 03/30/2022 12:1 6 PM EST Assessment Noted Time A fall risk assessment has been complete d for the patient 02/05/2021 7:27 AM EDT documented as of this encounter Care Teams Hay Stacker Operator Relationship Specialty Start Date End Date Mann Irene MD [address] [place] [address] PCP - General Internal Medicine 08/23/12 07/13/22 documented as of this encounter
--- OUTSIDE RECORDS SUMMARY | 2024-03-27 15:00 | XMS_ITS | Encounter Summary ---
Author Organization [place] [address] Care Team Providers Care Scientific Research Manager Name Role Phone Mann Irene MD Primary Care Provider [phone] Reason for Visit * Reason Comments Medication Refill Encounter Details Date Type Department Care Team (Late st Contact Info) Description 04/22/2022 Refill [facility] [place] [address] [place] [address] [place] [address] Medication Refill Social History Tobacco Use [...] Refills Last Filled Start Date End Date ALLERGY RELIEF D-24HR 10-240 mg Oral Tablet Sustained Release 24 hrIndications:Seas onal allergic rhinitis due to pollen TAKE 1 TABLET BY MOUTH EVERY DAY NOT COVERED 30 Tablet 2 04/23/2022 12/22/2022 documented in this encounter Plan of Treatment Upcoming Encounters Date Type Department Care Team (Late st Contact Info) Description 05/16/2024 9:30 AM EST Office Visit [facility] [address] [place] [address] Gilda Francis PA [address] [place] [address] documented as of this encounter Goals Goal Patient Goal Type Associated Problems Recent Progress Patient-Stated? Author Patient will take her blood sugar once a day for a week in the morning, and report the sugars back to provider General On track(02/28/20 10:50 AM EDT) Yes Geraldine Whiteside RN documented as of this encounter Visit Diagnoses Diagnosis Seasonal allergic rhinitis due to pollen documented in this encounter Discontinued Medications Medication Sig Discontinue Reason Start Date End Da te loratadine-pseudoephedri ne (ALLERGY RELIEF D-24HR) 10-240 mg Oral Tablet Sustained Release 24 hrIndications:Seasonal allergic rhinitis due to pollen TAKE 1 TABLET BY MOUTH EVERY DAY NOT COVERED 09/05/2021 04/23/2022 documented as of this encounter Additional Health Concerns Assessment Noted Time A fall risk assessment has been complete d for the patient 02/05/2021 7:27 AM EDT documented as of this encounter Care Teams Scientific Research Manager Relationship Specialty Start Date End Date Mann Irene MD [address] [place] [phone] PCP - General Internal Medicine 08/23/12 07/13/22 documented as of this encounter
--- OUTSIDE RECORDS SUMMARY | 2024-03-27 15:00 | XMS_ITS | Encounter Summary ---
Author Organization [facility] Address [place] [address] Care Team Providers Care Investment Counselor Name Role Phone Mann Irene MD Primary Care Provider [phone] Reason for Visit * Reason Comments Elevated Blood Pressure W/o Dx Of Htn X 2 months Encounter Details Date Type Department Care Team (Late st Contact Info) Description 07/09/2022 1:40 PM EST Office Visit [facility] [place] [address] [place] [address] Palma Jj, DO [address] [place] [phone] Hypertensive urgency (Primary Dx) Social History Tobacco Use Types [...] Sign Reading Time Taken Comments Blood Pressure 160/108 07/09/2022 1:49 PM EST Pulse 90 07/09/2022 1:06 PM EST Temperature - - Respiratory Rate 18 07/09/2022 1:06 PM EST Oxygen Saturation 94% 07/09/2022 1:06 PM EST Inhaled Oxygen Concentration - - Weight 79.8 kg (176 lb) 07/09/2022 1:06 PM EST Height 152.4 cm (5') 07/09/2022 1:06 PM EST Body Mass Index 34.37 07/09/2022 1:06 PM EST documented in this encounter Functional Status [...] cannot be sent through Care Everywhere. * DASH Diet (Ugandan) * High Blood Pressure in Adults (Ugandan) * Medicines for High Blood Pressure (Ugandan) documented in this encounter Progress Notes * Palma Jj DO - 07/09/2022 1:40 PM EST Assessment Diagnoses and all orders for this visit: Hypertensive urgency - CBC WITH DIFF; Future - COMPREHENSIVE METABOLIC PANEL; Future - TSH REFLEX; Future - POCT EKG -Pressure lowered from 202/98 to 160/108 without medication in office -Given reports of blood pressures around this value for several weeks, suspect chronic elevation ofblood pressure and do not feel that further acute lowering of pressure is needed today in office. Do not want to lower the blood pressure too much too fast -EKG in office with no acute changes and no significant changes from prior EKG -Will get urine and lab work as well for further evaluation. Once these results will likely start patient on lisinopril 10 mg as long as kidney function looks okay -Patient needs follow-up appointment in office Thursday to reevaluate pressures and discuss if she ishaving any symptoms -Discussed patient needs to follow-up with cardiology about her Holter monitor results that she brought up today Palma Jj DO Family Medicine 07/09/2022 Progress Note: Vitals: 07/09/22 1306 07/09/22 1349 BP: (!) 202/98 (!) 160/108 BP Location: Left arm Patient Position: Sitting Pulse: 90 Resp: 18 SpO2: 94% Weight: 176 lb (79.8 kg) Height: 5' (1.524 m) SUBJECTIVE: Chief Complaint Patient presents with ??? Elevated Blood Pressure W/o Dx Of Htn X 2 months HPI: 76 year old female who presents for elevated blood pressure -elevated cuff measurements at home -170/90s for weeks -reported feeling off to neighbor, seen by ambulance, directed patient here -Patient reports some vague lightheadedness today. Previous syncope episodes in hospital admission for syncope patient wore Holter monitor in April. It does not appear that she ever truly followedup on this. And she needs to close the loop with cardiology on this -Otherwise feels well and does not have chest pain or trouble breathing or visual changes today. -Discussed plan with patient and she feels comfortable with this Review of Systems Constitutional: Negative for appetite change, chills, fatigue and fever. Respiratory: Negative for shortness of breath. Cardiovascular: Negative for chest pain. Gastrointestinal: Negative for nausea and vomiting. Neurological: Positive for dizziness and light-headedness. Negative for headaches. All other systems reviewed and are negative. OBJECTIVE: Physical Exam Vitals reviewed. Constitutional: General: She is not in acute distress. Appearance: Normal appearance. She is not ill-appearing, toxic-appearing or diaphoretic. HENT: Head: Normocephalic and atraumatic. Cardiovascular: Rate and Rhythm: Normal rate. Pulmonary: Effort: Pulmonary effort is normal. Musculoskeletal: Right lower leg: No edema. Left lower leg: No edema. Neurological: Mental Status: She is alert. Mental status is at baseline. Psychiatric: Mood and Affect: Mood normal. Behavior: Behavior normal. EKG: Sinus rhythm normal rate no acute changes no significant change from prior EKG on 03/28/2022 * Jill Beck - 07/09/2022 1:40 PM EST Venipuncture in the right antecubital vein with 21 gauge needle, length 1 1/2 inch. documented in this encounter Miscellaneous Notes * Patient Instructions - Palma Jj DO - 07/09/2022 1:40 PM EST You may be contacted by mail or e-mail to participate in a patient satisfaction survey regarding your office visit today. We value your opinion and depend on your feedback to make improvements and provide you with the best possible experience while receiving high quality medical treatment. Your time in completing this survey is greatly appreciated.' Jesus Nick MD Internal Medicine-Cardiovascular Disease documented in this encounter Plan of Treatment Upcoming Encounters Date Type Department Care Team (Late st Contact Info) Description 05/16/2024 9:30 AM EST Office Visit [facility] [address] [place] [address] Gilda Francis PA [address] [place] [address] documented as of this encounter Goals Goal Patient Goal Type Associated Problems Recent Progress Patient-Stated? Author Patient will take her blood sugar once a day for a week in the morning, and report the sugars back to provider General On track(02/28/20 10:50 AM EDT) Yes Geraldine Whiteside RN documented as of this encounter Procedures Procedure Name Priority Date/Time Associated Diagnosis Comments SEP URINALYSIS POC Routine 07/09/2022 2: 20 PM EST TSH REFLEX Routine 07/09/2022 2:01 PM EST Hypertensive urgency CBC WITH DIFF Routine 07/09/2022 2:01 PM EST Hypertensive urgency COMPREHENSIVE METABOLIC PANEL Routine 07/09/2022 2:01 PM EST Hypertensive urgency POCT EKG Routine 07/09/2022 1:37 PM EST Hypertensive urgency documented in this encounter Results * (ABNORMAL) SEP URINALYSIS POC (07/09/2022 2:20 PM EST) UA Color POC Yellow Color 07/09/2022 2:23 PM EST [facility] [place] UA Appear POC Clear Clear 07/09/2022 2:23 PM EST [facility] [place] UA Gluc POC Negative Negative mg/dL 07/09/2022 2:23 PM EST [facility] [place] UA Bili POC Negative Negative 07/09/2022 2:23 PM EST [facility] [place] UA Ketones POC Negative Negative mg/dL 07/09/2022 2:23 PM EST [facility] [place] UA SG POC 1.015 1.001 - 1.035 no units 07/09/2022 2:23 PM EST [facility] [place] UA Blood POC Negative Negative 07/09/2022 2:23 PM EST [facility] [place] UA pH POC 6.5 5.0 - 8.0 pH 07/09/2022 2:23 PM EST [facility] [place] UA Protein POC Negative Negative mg/dL 07/09/2022 2:23 PM EST [facility] [place] UA Urobilinogen POC 0.2 0.2, 1.0 07/09/2022 2:23 PM EST [facility] [place] UA Nitrite POC Negative Negative 07/09/2022 2:23 PM EST [facility] [place] UA Leuk Est POC Small(A) Negative 2:23 PM EST [facility] [place] Urine URINE SPECIMEN COLLECTION / Unknown 07/09/2022 2:20 PM EST 07/09/2022 2:23 PM EST Palma Jj DO POINT OF CARE TEST ORDERABLE S Final Result Performing Organization Address City/[facility]/ZIP Co de Phone Number [facility] [place] [address] [place] [address] * TSH REFLEX (07/09/2022 2:01 PM EST) TSH Reflex 1.040 0.270 - 4.200 mcIU/mL 07/09/2022 9:42 PM EST [facility] Blood VENOUS BLOOD / Unknown Venipuncture / Unknown 07/09/2022 2:01 PM EST 07/09/2022 2:01 PM EST Narrative [facility] - 07/09/2022 9:42 PM EST Ingestion of lakshmi doses of biotin (>5 mg/day) taken within 8 hours of drawing blood sample can interfere with this immunoassay test. Palma Jj DO CHEMISTRY ORDERABLES Final R esult [facility] [address] [place] [address] , [address] [place] [id number] * (ABNORMAL) COMPREHENSIVE METABOLIC PANEL (07/09/2022 2:01 PM EST) Sodium 140 136 - 145 mmol/L 07/09/2022 9:42 PM EST [facility] Potassium 4.8 3.5 - 5.0 mmol/L 07/09/2022 9:42 PM EST [facility] Chloride 103 98 - 107 mmol/L 07/09/2022 9:42 PM EST [facility] Total CO2 28 22 - 29 mmol/L 07/09/2022 9:42 PM EST [facility] Anion Gap 9 7 - 16 mmol/L 07/09/2022 9:42 PM EST [facility] Calcium 9.8 8.8 - 10.4 mg/dL 07/09/2022 9:42 PM EST [facility] Glucose Lvl 103(H) 82 - 100 mg/dL 07/09/2022 9:42 PM EST [facility] BUN 15 8 - 23 mg/dL 07/09/2022 9:42 PM EST [facility] Creatinine 0.66 0.51 - 1.30 mg/dL 07/09/2022 9:42 PM EST [facility] Albumin 4.6 3.2 - 4.6 gm/dL 07/09/2022 9:42 PM EST [facility] Total Protein 8.1 6.4 - 8.3 gm/dL 07/09/2022 9:42 PM EST [facility] Bili Total 0.3 0.1 - 1.3 mg/dL 07/09/2022 9:42 PM EST [facility] ALT 22 <=41 U/L 07/09/2022 9:42 PM EST [facility] AST 24 <=40 U/L 07/09/2022 9:42 PM EST [facility] Alk Phos 139(H) 36 - 123 U/L 07/09/2022 9:42 PM EST [facility] eGFR (CKD-EPIcr 2020) 92 >=60 mL/min/1.7 3 m2 07/09/2022 9:42 PM EST [facility] Comment:Estimated GFR was ca lculated using the CKD-EPIcr (2020) equation refit without race. The equation is recommended by the National Kidney Foundation - [place] [employer] of Nephrology Task Force. Blood VENOUS BLOOD / Unknown Venipuncture / Unknown 07/09/2022 2:01 PM EST 07/09/2022 2:01 PM EST us Palma Jj DO CHEMISTRY ORDERABLES Final R esult [facility] [address] [address] [place] [id number] [facility] [address] [place] [id number] * (ABNORMAL) CBC WITH DIFF (07/09/2022 2:01 PM EST) WBC 9.9 3.7 - 10.3 x10(3)/mcL 07/09/2022 6:44 PM EST [facility] RBC 4.94 3.90 - 5.20 x10(6)/mcL 07/09/2022 6:44 PM EST [facility] Hgb 14.2 11.2 - 15.7 g/dL 07/09/2022 6:44 PM EST [facility] Hct 44.3 34.0 - 45.0 % 07/09/2022 6:44 PM EST [facility] MCV 89.7 80.0 - 100.0 fL 07/09/2022 6:44 PM EST [facility] MCH 28.7 26.0 - 34.0 pg 07/09/2022 6:44 PM EST [facility] MCHC 32.1 30.7 - 35.5 g/dL 07/09/2022 6:44 PM EST [facility] RDW 13.9 <=14.9 % 07/09/2022 6:44 PM EST [facility] Platelet 368 155 - 369 x10(3)/mcL 07/09/2022 6:44 PM EST [facility] MPV 9.8 8.8 - 12.5 fL 07/09/2022 6:44 PM EST [facility] Neut Percent 39.1 % 07/09/2022 6:44 PM EST [facility] Comment:Neutrophils equals s egs plus bands Imm Gran% 0.3 % 07/09/2022 6:44 PM EST [facility] Comment:Automated count of m etamyelocytes, myelocytes and promyelocytes. Lymph Percent 44.1 % 07/09/2022 6:44 PM EST [facility] [place] Percent 6.9 % 07/09/2022 6:44 PM EST [facility] Eos Percent 8.7 % 07/09/2022 6:44 PM EST [facility] Baso Percent 0.9 % 07/09/2022 6:44 PM EST [facility] Neut # 3.9 1.6 - 6.1 x10(3)/mcL 07/09/2022 6:44 PM EST [facility] Comment:Neutrophils equals s egs plus bands IMMGRAN# 0.0 0.0 - 0.1 x10(3)/mcL 07/09/2022 6:44 PM EST [facility] Comment:Automated count of m etamyelocytes, myelocytes and promyelocytes. An absolute IG <0.1 is reported as 0.0. Lymph # 4.4(H) 1.2 - 3.9 x10(3)/mcL 07/09/2022 6:44 PM EST [facility] [place] # 0.7 0.3 - 0.9 x10(3)/mcL 07/09/2022 6:44 PM EST [facility] Eos# 0.9(H) 0.0 - 0.5 x10(3)/mcL 07/09/2022 6:44 PM EST [facility] Baso # 0.1 0.0 - 0.1 x10(3)/[facility] 07/09/2022 6:44 PM EST [facility] Blood VENOUS BLOOD / Unknown Venipuncture / Unknown 07/09/2022 2:01 PM EST 07/09/2022 2:01 PM EST Palma Jj DO HEMATOLOGY ORDERABLES Final Result [facility] [address] [facility] , [address] [place] [id number] * (ABNORMAL) POCT EKG (07/09/2022 1:37 PM EST) 07/09/2022 1:37 PM EST Impressions SEP OFFICE - 07/09/2022 1:37 PM EST Normal sinus rhythm and rate no significant change from prior EKG us Palma Jj DO POINT OF CARE CARDIOLOGY Fin al Result SEP OFFICE documented in this encounter Visit Diagnoses Diagnosis Hypertensive urgency- Primary Unspecified essential hypertension documented in this encounter Additional Health Concerns Assessment Noted Time A fall risk assessment has been complete d for the patient 02/05/2021 7:27 AM EDT documented as of this encounter Care Teams Investment Counselor Relationship Specialty Start Date End Date Mann Irene MD [address] [place] [id number] PCP - General Internal Medicine 08/23/12 07/13/22 documented as of this encounter
--- OUTSIDE RECORDS SUMMARY | 2024-03-27 15:00 | XMS_ITS | Encounter Summary ---
Author Organization [place] [address] Care Team Providers Care Custodial Officer Name Role Phone Mann Irene MD Primary Care Provider [phone] Reason for Visit * Reason Comments Medication Refill Encounter Details Date Type Department Care Team (Late st Contact Info) Description 05/01/2022 Refill [facility] [place] [address] Mann [place] [address] [address] [place] [address] Medication Refill Social History Tobacco Use [...] ONE TIME PER WEEK 12 Capsule 3 05/01/2022 3 documented in this encounter Plan of Treatment Upcoming Encounters Date Type Department Care Team (Late st Contact Info) Description 05/16/2024 9:30 AM EST Office Visit [facility] [address] [place] [address] Gilda Francis PA [address] [place] [address] documented as of this encounter [...] CAPSULE BY MOUTH ONE TIME PER WEEK 02/06/2020 05/01/2022 documented as of this encounter Additional Health Concerns Assessment Noted Time A fall risk assessment has been complete d for the patient 02/05/2021 7:27 AM EDT documented as of this encounter Care Teams Custodial Officer Relationship Specialty Start Date End Date Mann Irene MD [address] [place] [address] PCP - General Internal Medicine 08/23/12 07/13/22 documented as of this encounter
--- OUTSIDE RECORDS SUMMARY | 2024-03-27 15:00 | XMS_ITS | Encounter Summary ---
Author Organization [facility] [place] [address] Care Team Providers Care Unix System Administrator Name Role Phone Mann Irene MD Primary Care Provider [phone] Encounter Details Date Type Department Care Team (Latest Contact Info) Description 04/04/2022 Travel Social History Tobacco Use Types Packs/Day [...] EST Office Visit [facility] [address] [place] [address] Gilda Francis PA [address] [place] [address] documented as of this encounter Visit Diagnoses Not on filedocumented in this encounter Additional Health Concerns Assessment Noted Time A fall risk assessment has been complete d for the patient 02/05/2021 7:27 AM EDT documented as of this encounter Care Teams Unix System Administrator Relationship Specialty Start Date End Date Mann Irene MD [address] [place] [id number] PCP - General Internal Medicine 08/23/12 07/13/22 documented as of this encounter
--- OUTSIDE RECORDS SUMMARY | 2024-03-27 15:00 | XMS_ITS | Encounter Summary ---
Author Organization [place] [address] Care Team Providers Care Acid Conditioning Worker Name Role Phone Mann Irene MD Primary Care Provider Reason for Visit * Reason Comments Medication Refill Encounter Details Date Type Department Care Team (Late st Contact Info) Description 04/19/2022 Refill [facility] [place] [address] [address] Mann Irene [place] [address] [address] [place] [address] Medication Refill Social History Tobacco Use [...] DAYS. WITH MEALS 180 Tablet 1 04/21/2022 10/27/2022 documented in this encounter Plan of Treatment Upcoming Encounters Date Type Department Care Team (Late st Contact Info) Description 05/16/2024 9:30 AM EST Office Visit [facility] [address] [place] [address] Gilda Francis PA [address] [place] [address] documented as of [...] TIMES DAILY FOR 180 DAYS. WITH MEALS 09/16/2021 04/21/2022 documented as of this encounter Additional Health Concerns Assessment Noted Time A fall risk assessment has been complete d for the patient 02/05/2021 7:27 AM EDT documented as of this encounter Care Teams Acid Conditioning Worker Relationship Specialty Start Date End Date Mann Irene MD [address] [place] [phone] PCP - General Internal Medicine 08/23/12 07/13/22 documented as of this encounter
--- OUTSIDE RECORDS SUMMARY | 2024-03-27 15:00 | XMS_ITS | Encounter Summary ---
Author Organization [place] [address] Care Team Providers Care Erection Shop Supervisor Name Role Phone Mann Irene MD Primary Care Provider Reason for Visit * Reason Comments Hospital Follow Up cardiac Encounter Details Date Type Department Care Team (Late st Contact Info) Description 04/17/2022 10:20 AM EST Office Visit [facility] [place] 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 Social History Tobacco Use Types Packs/Day Years [...] AM EST documented as of this encounter Last Filed Vital Signs Vital Sign Reading Time Taken Comments Blood Pressure 128/84 04/17/2022 9:55 AM EST Pulse 58 04/17/2022 9:55 AM EST Temperature 36.1 ??C (97 ??F) 04/17/2022 9:55 AM EST Respiratory Rate 18 04/17/2022 9:55 AM EST Oxygen Saturation 97% 04/17/2022 9:55 AM EST Inhaled Oxygen Concentration - - Weight 78.9 kg (174 lb) 04/17/2022 9:55 AM EST Height 152.4 cm (5') 04/17/2022 9:55 AM EST Body Mass Index 33.98 04/17/2022 9:55 AM EST documented in this encounter Functional [...] Author No 09/24/2021 7:49 AM Tomi Huggins ASHLEY [email or web address] * Does this person have difficulty dressing or bathing? Answer Date of Assessment Author No 09/24/2021 7:49 AM Tomi Huggins deysiroxanne, ASHLEYA * Because of a physical, mental or emotional condition, does this person have difficulty doing errands alone such as visiting a doctor's office or shopping? Answer Date of Assessment Author No 09/24/2021 7:49 AM Tomi Huggins, CLAUDIA documented as of this encounter Mental Status * Because of a physical, mental or emotional condition, does this person have serious difficulty concentrating, remembering or making decisions? Answer Entry Date Author No 09/24/2021 7:49 AM Tomi Huggins, CLAUDIA documented in this encounter Progress Notes * Mann Irene MD - 04/17/2022 11:23 AM ESTAssociated Problem(s): Advanced atrophic nonexudative age-related macular degeneration of right eyewithout subfoveal involvement Follows with ophthalmology. No new interventions today. * Mann Irene MD - 04/17/2022 11:22 AM ESTAssociated Problem(s): Recurrent syncope ? Due to blood sugars. Last meal/snack [...] in the AM when she gets up. * Mann Irene MD - 04/17/2022 10:20 AM EST Assessment Diagnoses and all orders for this visit: Syncope, unspecified syncope type Assessment & Plan: ? Due to blood sugars. Last meal/snack [...] gets up. 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 No new interventions today. - cardiac workup negative to day - check AM blood sugars - continue to eat after getting out of bed at 4 AM. Progress Note: Vitals: 04/17/22 0955 BP: 128/84 Pulse: 58 Resp: 18 Temp: 97 ??F (36.1 ??C) SpO2: 97% Weight: 174 lb (78.9 kg) Height: 5' (1.524 m) SUBJECTIVE: Chief Complaint Patient presents with ??? Hospital Follow Up cardiac HPI: Stella Hylton is a 76 yo female who presents for a hospital follow up visit. She was recently hospitalized due to dizziness and syncope and received a cardiac workup. She has had recurrent episodes of dizziness and syncope for a few weeks. She states the episodes occurred almost every morning when she wakes up but improve after she eats breakfast. 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 She recently started eating right after she wakes up and has not experienced dizziness/syncope since. She wonders if her symptoms may be due to her blood sugar. Her cardiac workup did not show an obvious cause of her symptoms. She continues to wear a mobile steel wool machine operator. Review of Systems Constitutional: Negative for chills and fever. HENT: Negative for sinus pain. Respiratory: Negative for cough and shortness of breath. Cardiovascular: Negative for chest pain and palpitations. Gastrointestinal: Negative for abdominal pain, constipation, diarrhea and vomiting. Musculoskeletal: Negative for myalgias. Neurological: Positive for syncope and light-headedness. Negative for seizures. OBJECTIVE: Physical Exam Constitutional: General: She is not in acute distress. Appearance: Normal appearance. HENT: Head: Normocephalic. Eyes: General: No scleral icterus. Cardiovascular: Rate and Rhythm: Normal rate and regular rhythm. Heart sounds: Normal heart sounds. No murmur heard. Pulmonary: Effort: No respiratory distress. Breath sounds: Normal breath sounds. Abdominal: Tenderness: There is no abdominal tenderness. Skin: General: Skin is warm. Neurological: Mental Status: She is oriented to person, place, and time. documented in this encounter Plan of Treatment Upcoming Encounters Date Type Department Care Team (Late st Contact Info) Description 05/16/2024 9:30 AM EST Office Visit [facility] [address] [place] [phone] Gilda Francis PA [address] [place] [address] documented as of this encounter Goals Goal Patient Goal Type Associated Problems Recent Progress Patient-Stated? 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
--- OUTSIDE RECORDS SUMMARY | 2024-03-27 15:00 | XMS_ITS | Encounter Summary ---
Author Organization [place] [address] Care Team Providers Care Airline Manager Name Role Phone Mann Irene MD Primary Care Provider [phone] Reason for Referral * Holter Monitor (Routine) - Pending Review Specialty Diagnoses / Procedures Referred By Contac t Referred To Contact Radiology Diagnoses Syncope, unspecified syncope type Procedures EV EVENT MONITOR Fredi Nick MD [address] [place] [phone] Phone: tel: fax: Referral ID Status Reason Start Date Expiration Date V isits Requested Visits Authorized [id number] Pending Review 04/01/2022 04/01/2024 1 1 Reason for Visit * Holter Monitor (Routine) - Pending Review Specialty Diagnoses / Procedures Referred By Contac t Referred To Contact Radiology Diagnoses Syncope, unspecified syncope type Procedures EV EVENT MONITOR Fredi Nick MD [address] [place] [phone] Phone: tel: fax: Referral ID Status Reason Start Date Expiration Date V isits Requested Visits Authorized [id number] Pending Review 04/01/2022 04/01/2024 1 1 Encounter Details Date Type Department Care Team (Latest Contact Info) Description 04/04/2022 9:55 AM EST - 04/04/2022 11:59 PM EST Hospital Encounter [facility] HOLTER MONITOR [address] [place] [address] Fredi Nick MD [address] [id number] Syncope, unspecified syncope type Discharge Disposition: Home or Self Care Social [...] (LIPITOR) 10 mg Oral TabletIndications :Hypercholesterol emia TAKE 1 TABLET BY MOUTH EVERY DAY 90 Tablet 10/21/2021 07/18/2022 cephALEXin (KEFLEX) 500 mg Oral Capsule Take 1 Capsule by mouth every 6 hours for 20 doses. 20 Capsule 04/01/2022 12:29 PM EST 04/02/2022 04/07/2022 diclofenac (VOLTAREN) 75 mg Oral Tablet, Delayed Release (E.C.) TAKE 1 TABLET BY MOUTH 2 TIMES DAILY FOR 180 DAYS. WITH MEALS 180 Tablet 1 09/16/2021 04/21/2022 ergocalciferol (DRISDOL) 1,250 mcg (50,000 unit) Oral Capsule TAKE 1 CAPSULE BY MOUTH ONE TIME PER WEEK 12 Cap 3 02/06/2020 05/01/2022 loperamide (IMODIUM) 2 mg Oral CapsuleIndication s:Diarrhea, unspecified type Take 1 Capsule by mouth 4 times daily as needed for Diarrhea. 40 Capsule 09/17/2021 01/09/2023 loratadine-pseudo ephedrine (ALLERGY RELIEF D-24HR) 10-240 mg Oral Tablet Sustained Release 24 hrIndications:Sea christi allergic rhinitis due to pollen TAKE 1 TABLET BY MOUTH EVERY DAY NOT COVERED 30 Tablet 2 09/05/2021 04/23/2022 documented as of this encounter Discharge Disposition Disposition Code Departure Means Destination Home or Self Care documented in this encounter Progress Notes * Mann Irene MD - 04/04/2022 11:00 AM EST Per cardiology. Appears they have already contacted her. documented in this encounter Plan of Treatment Upcoming Encounters Date Type Department Care Team (Late st Contact Info) Description 05/16/2024 9:30 AM EST Office Visit [facility] [address] [place] [address] Gilda Francis PA [address] [place] [address] documented as of this encounter Procedures Procedure Name Priority Date/Time Associated Diagnosis Comments EV EVENT MONITOR Routine 04/04/2022 10:2 6 AM EST Syncope, unspecified syncope type documented in this encounter Results * EV EVENT MONITOR (04/04/2022 10:26 AM EST) Anatomical Region Laterality Modality Holter/Event Mon itoring 05/06/2022 4:50 AM EST Impressions 05/06/2022 8:20 AM EST ? [facility] ? Test Date: ?2022-05-06 Pat Name: ? LISY GOLDSTEIN ?Department: ?? DEPID ? Room: ? Gender: ? Female ? Wildlife Protector: ?? : ?1945 ? Requested By: FREDI Mc Order Number: [id number] ?Reading : ?? Fredi Nick MD ? Interpretive Statements Masonry Installer Date: ??04/04/2022 Referring Provider: ??Dr. Fredi Nick [...] Note Fredi Nick MD - 05/06/[address] [facility] Test Date: 2022-05-06 Pat Name: LISY GOLDSTEIN Department: DEPID Room: Gender: Female Wildlife Protector: : 1945 Requested By: FREDI Mc Order Number: [id number] Reading MD: Fredi Nick MD Interpretive Statements Masonry Installer Date: 04/04/2022 Referring Provider: Dr. Fredi Nick [...] IMG HOLTER MONITOR ORDERABLE S Final Result documented in this encounter Visit Diagnoses Diagnosis Syncope, unspecified syncope type documented in this encounter Additional Health Concerns Assessment Noted Time A fall risk assessment has been complete d for the patient 02/05/2021 7:27 AM EDT documented as of this encounter Care Teams Airline Manager Relationship Specialty Start Date End Date Mann Irene MD [address] [place] [phone] PCP - General Internal Medicine 08/23/12 07/13/22 documented as of this encounter
--- OUTSIDE RECORDS SUMMARY | 2024-03-27 15:00 | XMS_ITS | Encounter Summary ---
Author Organization [facility] [place] [address] Care Team Providers Care Electric Motor Controls Assembler Name Role Phone Palma Jj DO Primary Care Provider [phone] Reason for Visit * Reason Comments Follow-up BP Encounter Details Date Type Department Care Team (Late st Contact Info) Description 07/14/2022 9:40 AM EST Office Visit [facility] [address] [place] [id number] Palma Jj DO [address] [place] [id number] Essential hypertension (Primary Dx); Exudative age-related macular degeneration of left eye, unspecified stage (HCC); Thyroid cyst Social History Tobacco Use Types [...] Sign Reading Time Taken Comments Blood Pressure 156/82 07/14/2022 8:57 AM EST Pulse 71 07/14/2022 8:44 AM EST Temperature 36.2 ??C (97.2 ??F) 07/14/2022 8:44 AM ES T Respiratory Rate 18 07/14/2022 8:44 AM EST Oxygen Saturation 98% 07/14/2022 8:44 AM EST Inhaled Oxygen Concentration - - Weight 80.3 kg (177 lb) 07/14/2022 8:44 AM EST Height 152.4 cm (5') 07/14/2022 8:44 AM EST Body Mass Index 34.57 07/14/2022 8:44 AM EST documented in this encounter Functional [...] sent through Care Everywhere. * DASH Diet ([place]icaraguan) * Controlling Your Blood Pressure Through Lifestyle ([place]aguan) documented in this encounter Progress Notes * Palma Jj DO - 07/14/2022 10:25 AM ESTAssociated Problem(s): Essential hypertension Goal BP : < 140/90 - not [...] log -check renal function at that time * Palma Jj DO - 07/14/2022 10:25 AM ESTAssociated Problem(s): Thyroid cyst Given the sizes and recommendations, no further assessment needed at this time. Consider repeat ultrasound in 1 year (03/2023) * Palma Jj DO - 07/14/2022 10:14 AM ESTAssociated Problem(s): Exudative age-related macular degeneration of left eye (HCC) -continue to follow with analysis specialist * Palma Jj DO - 07/14/2022 9:40 AM EST Assessment Diagnoses and all orders for this visit: Essential hypertension Assessment & Plan: Goal BP : < 140/90 - not [...] log -check renal function at that time Orders: - BASIC METABOLIC PANEL; Future Exudative age-related macular degeneration of left eye, unspecified stage (HCC) (Chronic) Overview: Follows with analysis specialist Assessment & Plan: -continue to follow with analysis specialist Thyroid cyst Overview: 03/30/22 Thyroid US: Nodule [...] and benign-appearing thyroid nodules. Assessment & Plan: Given the sizes and recommendations, no further assessment needed at this time. Consider repeat ultrasound in 1 year (03/2023) Palma Jj, DO Family Medicine 07/14/2022 Progress Note: Vitals: 07/14/22 0844 07/14/22 0857 BP: (!) 158/100 (!) 156/82 Pulse: 71 Resp: 18 Temp: 97.2 ??F (36.2 ??C) TempSrc: Temporal SpO2: 98% Weight: 177 lb (80.3 kg) Height: 5' (1.524 m) SUBJECTIVE: Chief Complaint Patient presents with ??? Follow-up BP HPI: 76-year-old female who presents for follow-up on blood pressure -Started taking lisinopril few days ago -reports feeling well since starting medication -sees analysis specialist Review of Systems Eyes: Negative for visual disturbance. Respiratory: Negative for shortness of breath. Cardiovascular: Negative for chest pain. Neurological: Negative for headaches. All other systems reviewed [...] edema. Neurological: Mental Status: She is alert. Psychiatric: Mood and Affect: Mood normal. Behavior: Behavior normal. documented in this encounter Plan of Treatment Upcoming Encounters Date Type Department Care Team (Late st Contact Info) Description 05/16/2024 9:30 AM EST Office Visit [facility] [address] [place] [address] Gilda Francis PA [address] [place] [address] documented as of this encounter Goals [...] documented as of this encounter Results * (ABNORMAL) BASIC METABOLIC PANEL (07/28/2022 9:34 AM EDT) Sodium 142 136 - 145 mmol/L 07/28/2022 4:57 PM EDT [facility] Potassium 4.3 3.5 - 5.0 mmol/L 07/28/2022 4:57 PM EDT [facility] Chloride 104 98 - 107 mmol/L 07/28/2022 4:57 PM EDT [facility] Total CO2 28 22 - 29 mmol/L 07/28/2022 4:57 PM EDT [facility] Anion Gap 10 7 - 16 mmol/L 07/28/2022 4:57 PM EDT [facility] Calcium 9.3 8.8 - 10.4 mg/dL 07/28/2022 4:57 PM EDT [facility] Glucose Lvl 104(H) 82 - 100 mg/dL 07/28/2022 4:57 PM EDT [facility] BUN 13 8 - 23 mg/dL 07/28/2022 4:57 PM EDT [facility] Creatinine 0.66 0.51 - 1.30 mg/dL 07/28/2022 4:57 PM EDT [facility] eGFR (CKD-EPIcr 2020) 92 >=60 mL/min/1.7 3 m2 07/28/2022 4:57 PM EDT [facility] Comment:Estimated GFR was ca lculated using the CKD-EPIcr (2020) equation refit without race. The equation is recommended by the National Kidney Foundation - [place] [employer] of Nephrology Task Force. Blood VENOUS BLOOD / Unknown Venipuncture / Unknown 07/28/2022 9:34 AM EDT 07/28/2022 9:34 AM EDT us Palma Jj DO CHEMISTRY ORDERABLES Final R esult [address] [place] [address] [facility] [address] [place], [place] [id number] documented in this encounter Visit Diagnoses Diagnosis Essential hypertension- Primary Unspecified essential hypertension Exudative age-related macular degeneration of left eye, unspecified stage (HCC) Thyroid cyst Cyst of thyroid documented in this encounter Additional Health Concerns Assessment Noted Time A fall risk assessment has been complete d for the patient 02/05/2021 7:27 AM EDT documented as of this encounter Care Teams Electric Motor Controls Assembler Relationship Specialty Start Date End Date Palma Jj DO [address] [place], [place] [phone] PCP - General Family Medicine 07/14/22 documented as of this encounter
--- OUTSIDE RECORDS SUMMARY | 2024-03-27 15:00 | XMS_ITS | Encounter Summary ---
Author Organization [place] [address] Care Team Providers Care Senior Web Developer Name Role Phone Mann Irene MD Primary Care Provider [phone] Reason for Visit * Reason Comments Care Transition Hospital Follow Up Care Management - Face To Face Advance Care Planning Initiation Encounter Details Date Type Department Care Team (Late st Contact Info) Description 04/17/2022 10:45 AM EST Office Visit [facility] [address] [place] [address] Geraldine Whiteside, RN Hospital discharge follow-up (Primary Dx) Social History Tobacco Use Types [...] Entry Date Author No 09/24/2021 7:49 AM EDTomi José CCMA documented in this encounter Progress Notes * Geraldine Whiteside RN - 04/17/2022 10:45 AM EST Images from the original note were not included. Care Management (CM)Evaluation : - Reason for visit: hospital follow up for syncope - Visit Type: Face to Face Assessment: - Concerns: Patient was seen in the emergency department 03/28/22 following a fall related to syncope. Extensive workup and a cardiology consult was unremarkable. Patient diagnosed with a urinary tract infection and was started with Ceftriaxone, then transitioned to keflex. She presents today for follow up. 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 Believes this could be contributing to syncope episodes. He asked for child care group leader to give her a blood glucose monitor and have her log her sugars and report back to him in a week. - Ability to complete activities of daily living (ADLs): o Patient reports they are able to complete Activities of Daily Living (ADL's) independently - Advance Care Planning (ACP): o Discussion regarding Advance Care Planning (ACP) completed during today's visit, see Advance CarePlanning note. - Tobacco use: o Reviewed; patient reports no change in smoking history Impactable barriers: ??? Patient would like assistance with: ??? obtaining food stamps. She goes to local food pantries due to affordability issues Health Maintenance: ??? Care gaps addressed today include: none addressed by child care group leader. She is due for her zoster vaccine. Medications: - Patient declines to review medications with child care group leader at this time, as a medication reviewwas completed during today's office visit with their provider Education: o Educated patient on: the role of office child care group leader/services provided o the patient is to check her blood glucose once daily in the morning and record it on her blood sugar log o filling out SNAP benefits for [place] and mailing it. Handouts: o Psychiatry Teacher contact information o SNAP application Goals: Goals Addressed This Visit's Progress ??? Patient will take her blood sugar once a day for a week in the morning, and report the sugars back to provider (pt-stated) MyChart: Patient has MyChart; verified ability to use Next Steps: - Psychiatry Teacher contact information given / reviewed - Reviewed when to call Primary Care Provider (PCP) office, urgent care, or 911 - Psychiatry Teacher will not follow at this time. Notes: - The following Social Determinants Of Health (SDOH) assessments were completed during this visit: Food Insecurity * Geraldine Whiteside RN - 04/17/2022 10:45 AM EST Advance Care Planning Conversation Date of Advance Care Planning (ACP) discussion: 04/17/2022 Who was present during this discussion? Patient Does patient currently have any advance care directives? No. Patient agreeable to advance care planning discussion. Summary of the Advance Care Planning discussion/questions or concerns: Patient was unsure what a living will was. Explained that is a legal document that contains the patients wishes in a medical situation where life prolonging measures are taken. Examples: do not resuscitate, tube feedings, ventilators, etc. Education material used during discussion: ??? declined a handout at this time Outcome: Patient will reach out to child care group leader should she ever want to continue advanced care planning. Next Step: Patient has writers contact information, and will call to schedule an appointment to discuss. Time spent on this conversation today: 15 minutes Status: In progress documented in this encounter Plan of Treatment Upcoming Encounters Date Type Department Care Team (Late st Contact Info) Description 05/16/2024 9:30 AM EST Office Visit [facility] [address] [place] [phone] Gilda Francis PA [address] [place], [place] [id number] documented as of this encounter Goals Goal Patient Goal Type Associated Problems Recent Progress Patient-Stated? Author Patient will take her blood sugar once a day for a week in the morning, and report the sugars back to provider General On track(02/28/20 10:50 AM EDT) Yes Geraldine Whiteside RN documented as of this encounter Visit Diagnoses Diagnosis Hospital discharge follow-up- Primary Other follow-up examination documented in this encounter Additional Health Concerns Assessment Noted Time A fall risk assessment has been complete d for the patient 02/05/2021 7:27 AM EDT documented as of this encounter Care Teams Senior Web Developer Relationship Specialty Start Date End Date Mann Irene MD [address] [place], [place] [phone] PCP - General Internal Medicine 08/23/12 07/13/22 documented as of this encounter
--- OUTSIDE RECORDS SUMMARY | 2024-03-27 15:00 | XMS_ITS | Encounter Summary ---
Author Organization [place] [address] Care Team Providers Care Inside Sales Manager Name Role Phone Mann Sam MD Primary Care Provider [phone] Reason for Referral * Echo (Routine) - Pending Review Specialty Diagnoses / Procedures Referred By Ramona mcdaniel Referred To Contact Radiology Diagnoses Syncope, unspecified syncope type Procedures EC ECHOCARDIOGRAM LIMITED Melania Lewis DO [address] [place] [address] Phone: tel: fax: Referral ID Status Reason Start Date Expiration Date V isits Requested Visits Authorized [id number] Pending Review 04/01/2022 04/01/2024 1 1 Reason for Visit * Reason Comments Loss of Consciousness Pt had same episod e x2 wks ago and placed on holter monitor which was negative. Pt had same episode yest. * Auth/Cert/Inpt (Routine) Specialty Diagnoses / Procedures Referred By Ramona mcdaniel Referred To Contact Diagnoses Syncope, unspecified syncope type Referral ID Status Reason Start Date Expiration Date Visits Re quested Visits Authorized [id number] 1 1 Encounter Details Date Type Department Care Team (Late st Contact Info) Description 03/28/2022 12:15 PM EST - 04/01/2022 1:01 PM EST Emergency [place] [address] [address] Marivel King DO [address] [facility] [place] [id number] Lolis Byrd MD 1 [facility] [place] [address] Syncope, unspecified syncope type (Primary Dx) Discharge Disposition: Home or Self Care Social [...] Sign Reading Time Taken Comments Blood Pressure 133/71 04/01/2022 11:51 AM EST Pulse 77 04/01/2022 11:51 AM EST Temperature 36.6 ??C (97.8 ??F) 04/01/2022 11:[address] Respiratory Rate 16 04/01/2022 11:51 AM EST Oxygen Saturation 97% 04/01/2022 11:51 AM EST Inhaled Oxygen Concentration - - Weight 77.1 kg (170 lb) 03/28/2022 11:16 AM EST Height 152.4 cm (5') 03/28/2022 11:16 AM EST Body Mass Index 33.2 03/28/2022 11:16 AM EST documented in this encounter Functional [...] Tomi Huggins CCMA documented in this encounter Discharge Summaries * Melania Leiws, DO - 04/01/2022 12:02 PM EST [facility] Discharge Summary Patient Name: Stella Hylton : 1945 Admit Date: 03/28/2022 Discharge Date: 04/01/2022 Admitting Physician: Lolis Byrd MD Discharging Physician: Melania Lewis DO Reason for Hospitalization: Active Hospital Problems Diastolic dysfunction UTI (urinary tract infection) Bilateral carotid artery stenosis Thyroid cyst *Syncope, unspecified syncope type Hypercholesterolemia Brief Hospital Summary: 76-year-old female that was admitted on 03/28/22 following a fall. She was admitted for syncope workup with cardiology consultation. She was found to have a urinary tract infection and was empirically started on Ceftriaxone. Urine culture returned and she was subsequently transitioned to Keflex to complete antibiotic course. Patient continued to improve throughout hospital stay and was cleared bycardiology for discharge home with outpatient event monitor as well as echocardiogram. She will need to be seen by her PCP in 3 days. Will need to follow up with cardiology in the next month. Labs and imaging follow-up needed: Echo, event monitor Consultants: Treatment Team: Consulting Physician: Jesus Nick MD Discharge Exam: Vitals: 04/01/22 1151 BP: 133/71 Pulse: 77 Resp: 16 Temp: 97.8 ??F (36.6 ??C) SpO2: 97% CONSTITUTIONAL: Alert and oriented x 3. NAD. CARDIOVASCULAR: normal rate and regular rhythm. No murmur heard. PULMONARY/CHEST: CTA bilat.. No W/R/R. ABDOMINAL: soft, non-tender; normal BS. MUSCULOSKELETAL: no atrophy or effusions. No edema. NEURO: non-focal, no lateralizing weakness. PSYCHIATRIC: normal mood and affect. Not suicidal/homicidal. Correct Full Discharge Med List: Medication List START taking these medications cephALEXin 500 mg Cap Dose: 500 mg Qty: 20 Capsule Refills: 0 Start: April 02, 2022 Commonly known as: KEFLEX 500 mg, Oral, EVERY 6 HOURS SCHEDULED CONTINUE taking these medications Allergy Relief D-24hr 10-240 mg Tb24 Qty: 30 Tablet Refills: 2 Comment: DX Code Needed OUT OF REFILLS. Generic drug: loratadine-pseudoephedrine TAKE 1 TABLET BY MOUTH EVERY DAY NOT COVERED aspirin 81 mg Tbec Dose: 1 Tablet Refills: 0 atorvastatin 10 mg Tab Qty: 90 Tablet Refills: 0 Commonly known as: LIPITOR TAKE 1 TABLET BY MOUTH EVERY DAY ergocalciferol 1,250 mcg (50,000 unit) Cap Qty: 12 Cap Refills: 3 Commonly known as: DRISDOL TAKE 1 CAPSULE BY MOUTH ONE TIME PER WEEK ipratropium 21 mcg (0.03 %) [place] Dose: 2 [place] Qty: 30 mL Refills: 2 Commonly known as: ATROVENT 2 Sprays, Nasal, 3 TIMES DAILY loperamide 2 mg Cap Dose: 2 mg Qty: 40 Capsule Refills: 0 Commonly known as: IMODIUM 2 mg, Oral, 4 TIMES DAILY PRN Where to Get Your Medications These medications were sent to [facility] [address] [facility] [place] [address] Hours: Thursday-Thursday 7:30am - 6:00pm ?? cephALEXin 500 mg Cap Condition at Discharge: good Disposition: Home Follow-up: Jesus Nick MD [address] [address] Follow up in 1 month(s) Mann Sam MD [address] [place] [address] Follow up in 3 day(s) 36 minutes spent on evaluation and treatment including but not limited to reviewing the medication list, nurse's and specialists notes, labs and tests, old and recent medical records, and discussing appropriate information with the patient and/or family. Relevant information was discovered and affected the care of the patient today. More than 50% of time was spent on counseling and coordinating care. Melania Lewis DO 04/01/2022 documented in this encounter Discharge Instructions * Attachments The following attachments cannot be sent through Care Everywhere. * Acute Cystitis Discharge Instructions (Khmer) documented in this encounter Medications at Time [...] 09/05/2021 04/23/2022 documented as of this encounter Ordered Prescriptions Prescription Sig Dispense Quantity Refills Last Filled Start Date End Date cephALEXin (KEFLEX) 500 mg Oral Capsule Take 1 Capsule by mouth every 6 hours for 20 doses. 20 Capsule 04/01/2022 12:29 PM EST 04/02/2022 2 documented in this encounter Discharge Disposition Disposition Code Departure Means Destination Comment s Home or Self Long Term documented in this encounter Progress Notes * Marina Rod RN - 04/01/2022 12:57 PM EST Patient left with iv in place. Security called and will call PD to check on patient. * Emma Castro, Chemical Pathologist - 04/01/2022 12:51 PM EST Discharge Medication Delivery Service DMD avionics technician has delivered the following medications for Stella Hylton: ?? Cephalexin 500 mg Date/Time of Delivery: 04/01/2022. 12:52 PM Delivered to: pt in room Please contact DMD avionics technician with any questions. Thanks! Emma Castro, Chemical Pathologist * Marina Rod RN - 04/01/2022 12:48 PM EST Patient up at the desk. States my ride is here I need to go now . I explained that the community living coach did not make her follow up appt yet. Patient states I already madeit . Patient stood at the unit desk as I went over her paperwork. She told me that they brought her the antibiotic from our pharmacy. Patient left without medicare form signed or follow up appt with PCP made. * Lo Pinedo MSW - 04/01/2022 12:30 PM EST 04/01/22 1228 Ongoing Discharge Planning Evaluation Completed by CC/MICHAEL Yes Anticipated post-acute care needs Home with OP Follow Up Discussed discharge plans with Patient/Family/Caregiver/Support Person Yes, Discussed with patient Discussed discharge plans with Care Team at [facility] Yes, with nurse in attendance;Yes, with doctor in attendance Patient's goals for recovery Diana in self-care;Return to Prior Level of Functioning Transportation at discharge Personal vehicle Date Expected 04/01/22 Confirmed Discharge Transportation Plan? Yes Actual Discharge Plan 04/01/2022-MICHAEL FINAL NOTE-MICHAEL reviewed chart. MICHAEL met with patient bedside. She is ready to discharge home. She has good support and does not have any discharge needs. Patient's has friend going to transport home. , RN,patient aware of discharge plan and are in agreement. Final Note Referral to SEP Care Management (SEP patients only) No DME at Discharge None PASAR Completed Not Applicable Patient/Family Aware of Plan Yes MD Aware of Plan Yes RN Notified of Plan Yes Patient's goals for recovery Diana in self-care Community Resources Medication Assistance Medicare D/Medicaid * Zoë Santos MD - 04/01/2022 9:37 AM EST [facility] Patient: Stella Hylton LOS: 4 days Cardiology following for:syncope Primary side stitching machine operator:none SUBJECTIVE: Sitting side of bed. Feeling well. No syncope/near syncope. Wants to go home. REVIEW OF SYSTEMS: NEGATIVE FOR: chest pain, dyspnea, palpitations, dizziness, syncope, edema POSITIVE FOR: See subjective. Review of systems is otherwise negative. MEDICATIONS: Scheduled Medications: ??? aspirin 81 mg Oral QAM ??? atorvastatin 10 mg Oral Nightly ??? [START ON 04/02/2022] cephALEXin 500 mg Oral 4 times per day ??? pantoprazole (PROTONIX) 40 mg Intravenous Daily Or ??? pantoprazole 40 mg Oral Daily ??? sodium chloride 0.9% Intravenous 2 times per day Continuous Infusions: PRN Medications: acetaminophen, HYDROcodone-acetaminophen, metoclopramide HCl, morphine OR morphine, ondansetronOR ondansetron OR [DISCONTINUED] metoclopramide HCl, sodium chloride 0.9%, sodium chloride 0.9% PHYSICAL EXAMINATION: Vitals: 04/01/22 0923 BP: 138/70 Pulse: 87 Resp: 16 Temp: 96.9 ??F (36.1 ??C) SpO2: 97% Temp (24hrs), Av.8 ??F (36.6 ??C), Min:96.9 ??F (36.1 ??C), Max:98.1 ??F (36.7 ??C) Weight: 170 lb (77.1 kg) Intake/Output Summary (Last 24 hours) at 04/01/2022 0937 Last data filed at 03/31/2022 1015 Gross per 24 hour Intake 70.31 ml Output -- Net 70.31 ml CONSTITUTIONAL: No apparent distress. Alert and oriented. EYES: Gaze is conjugate. Ptosis is absent. EARS, NOSE, MOUTH, THROAT: Oropharynx is clear. Nose is midline. NECK: Thyromegaly is absent. Trachea is midline. Masses are absent. RESPIRATORY: Respiratory effort is normal. Wheezes are absent. Rales are absent. Rhonchi are absent. CARDIOVASCULAR: Heart rate is noted above. Rhythm is regular. Murmurs are absent. Rubs are absent. S1 and S2 normal. S3 or S4 are absent. Pulses are normal. Jugular venous pressure is normal. Edema is absent. Carotid Bruits are absent. GASTROINTESTINAL: Bowel sounds are normal. Hepatomegaly is absent. Splenomegaly is absent. Abdomen is soft and non tender. MUSCULOSKELETAL: Clubbing is absent. Cyanosis is absent. SKIN: Rashes are visually absent. Turgor is normal. Warm and dry. NEUROLOGICAL: Grossly non focal. PSYCHIATRIC: Mood is normal. Affect is normal. LABORATORY AND STUDIES: Lab Results Component Value Date WBC 9.1 03/30/2022 HGB 12.9 03/30/2022 HCT 39.4 03/30/2022 MCV 87.8 03/30/2022 PLT 323 03/30/2022 Lab Results Component Value Date NA 142 03/28/2022 K 3.9 03/28/2022 CL 105 03/28/2022 CO2 26 03/28/2022 BUN 18 03/28/2022 CREATININE 0.67 03/28/2022 CALCIUM 9.1 03/28/2022 GLU 90 03/28/2022 No results found for: PT, INR, APTT No results found for: ALKPHOS, ALT, AST, PROT, LABBILI, LABALBU No results found for: AMYLASE, LIPASE No results found for: TROPONINT No results found for: BNP Lab Results Component Value Date SPECGRAV 1.026 03/28/2022 UAPROTEIN Trace (10-20 mg/dL) 03/28/2022 BLOODU Negative 03/28/2022 NITRITE Positive (A) 03/28/2022 LEUKOCYTESUR 3+ (250 Zena/mcl) (A) 03/28/2022 WBCUA 5 (H) 03/28/2022 RBCUA 1 03/28/2022 No results found for: PH, PCO2, PO2, HCO3, TCO2, BASEEXCESS, O2SAT, INSPIREDO2, SPECIMENTYPE IMAGING: NM MYOCARDIAL PERFUSION SPECT STRESS AND REST Result Date: 03/31/2022 Conclusions * Homogenous uptake of isotope throughout the left ventricle on both stress and rest images. * No evidence of myocardial ischemia or prior myocardial infarction. * Normal left ventricularsize and normal left ventricular systolic function. * Normal left ventricular systolic function. * Overall left ventricular systolic function was normal without regional wall motion abnormalities. * Gated SPECT imaging reveals normal myocardial wall motion. EC ECHOCARDIOGRAM COMPLETE W DOPPLER AND COLOR FLOW MAPPING Result Date: 03/31/2022 Conclusions * Left ventricular chamber dimension is normal. * Left ventricular function is normal with an estimated ejection fraction of 60-65%. * Left ventricular segmental wall motion is normal. * The left ventricular diastolic function is consistent with stage I diastolic dysfunction (normal left atrial pressure). * Right ventricular systolic function is normal. * Estimated pulmonary artery systolic pressure is [address] STRESS TEST LEXISCAN Result Date: 03/31/2022 [facility] [place] Test Date: 2022-03-31 Pat Name: STELLA HYLTON Department: DEPID Room: 4402 Gender: Female Superintendent Job: Rachael Cifuentes RN : 1945 Requested By: TIANA ENRIQUEZ Order Number: [id number] Reading MD: Riley Segovia MD Interpretive Statements StressTest Lexiscan Ordering Diagnosis: Chest Pain Resting HR: [...] 03-31-2022 15:24:34 EST by Riley Segovia MD ACTIVE PROBLEM LIST: Active Hospital Problems Diagnosis ??? *Syncope, unspecified syncope type ??? Diastolic dysfunction ??? UTI (urinary tract infection) ??? Bilateral carotid artery stenosis ??? Thyroid cyst ??? Hypercholesterolemia ASSESSMENT AND PLAN: This is a 76 y.o. female who was admitted on 03/28/2022 and has the following issues: Syncope Multiple episodes w/o prodrome Recent holter ok Orthostatics negative Echo pending CUS mild stenosis ?? SOL Diaphoresis Kendrick/mpi non ischemic Echo EF nml mild diastolic dysfunction ?? UTI Leukocytosis abx per primary team ?? Thyroid cyst US pending Per primary ?? HLD Statin Plan: Ok home when ok with others Will arrange outpatient event monitor--office will call after discharge Follow up with Dr. Nick in a month Patient to follow up with cardiology in 1 month . Brayden Browne APRN 04/01/2022 9:37 AM * Lolis Byrd MD - 03/31/2022 7:16 PM EST Images from the original note were not included. PROGRESS NOTE Handoff Completed:Yes Patient is not ready for discharge Assessment/Plan: 76 y.o.??female??admitted on 03/28/22, who is here for syncope. Has had 3 episodes in the past few weeks. Events while resting, and no seizure like activity/postictal. Recent Holter was neg. Started on CFTX for UTI. Had thyroid US that showed multiple benign looking nodules (no FNA or f/u needed). Seen by cards and plan for ECHO/SPECT, results pending. ? Syncope telecommunications clerk> no event so far Orthostatics neg trops neg x2 Echo: pending Flu/covid19: neg DD [id number] (VTE unlikely when adjusted for age) Cards consult Fall precautions ?? Leukocytosis Ua+ PCT: neg resp viral panel Cxr: minimal basal atelectasis vs scarring Start CFTX IVF Afebrile. No dysuria. ?? Carotid stenosis CUS 10/2021 mild bilateral carotid stenosis C/w asa and statin Small L thyroid cyst noted on carotid dopper Thyroid US> multiple small and benign appearing nodules. No FNA or f/u suggested. ?? HLD lipitor ?? Cardiac murmur Systolic murmur Echo: pending ?? dvt ppx: lovenox ?? Full code ?? Dispo: remains ill? Active Hospital Problems Diagnosis ??? *Syncope, unspecified syncope type ??? Diastolic dysfunction ??? UTI (urinary tract infection) ??? Bilateral carotid artery stenosis ??? Thyroid cyst ??? Hypercholesterolemia Subjective: No sob or chest pain. No dizziness or headache. Objective: BP 122/58 (BP Location: Left arm, Patient Position: Sitting) Pulse 92 Temp 98.1 ??F (36.7 ??C) (Oral) Resp 16 Ht 5' (1.524 m) Wt 170 lb (77.1 kg) LMP (LMP Unknown) SpO2 95% No BMI 33.20 kg/m?? I/O last 3 completed shifts: In: 417.1 [I.V.:294.5; IV Piggyback:122.6] Out: - Weight: 170 lb (77.1 kg) nad ctab rrr abd ndnt aaox3 Labs: Laboratory data and diagnostic testing reviewed 03/31/22. Lolis Byrd MD 03/31/2022 7:16 PM * Lo Pinedo MSW - 03/31/2022 4:04 PM EST 03/31/22 1600 Discharge Planning Evaluation Completed by CC/SW Yes Referral Source Chart review Assign DC Planning Video Yes Does patient meet high risk triggers? Is patient active with Digital Research Analyst Mgmt Team What brought the patient to the Hospital? syncope Who you interviewed In person interview with patient Mental Status Alert and oriented Mini-mental exam completed? No Decision Maker Patient Does patient need solar energy sales specialist? No Activities of Daily Living Prior to Admission Independent with ADLS;Independent with Homemaking;Independent with mobility DME at Home Cane;Shower chair Patient's Living Arrangments Prior to Admission? Private Residence Alone Support Systems Spouse/Significant Other;Family Members Is PCP listed on facesheet correct? Yes Identified psychosocial/financial issues Crisis situations and disability resulting from emotional,social and economic stresses of illness Follow Up Assigned To: Referral to Social work not necessary Social Work already completing dc planning assessment Anticipated post-acute care needs Home with OP Follow Up Discussed discharge plans with Patient/Family/Caregiver/Support Person Yes, Discussed with patient Discussed discharge plans with Care Team at [facility] Yes, with nurse in attendance;Yes, with doctor in attendance Patient's goals for recovery Diana in self-care;Return to Prior Level of Functioning Agency/Facility Options Offered, list provided N/A - No post acute needs identified at this time Provided information, demonstrated how to access quality and resource utilization data for post acute provider and offered assistance: N/A [facility] Financial Discloure completed? N/A Actual Discharge Plan 03/31/2022-MICHAEL Inital assessment-MICHAEL reviewed chart. SW met with patient bedside. Patient lives at home alone. She is independent at home with no HH. Patient has a cane, shower chair and grab bars. Patient has PCP=Maria Victoria> patient gets medications filled at [facility] [place]. Patient does not report having any discharge needs at this time. SW will continue to follow. patient is waiting for Echo and stress test. * Annamarie Burgess Data Integration Architect - 03/31/2022 2:08 PM EST Pharmacy Note: Route Optimization Patient is currently on Metoclopramide 10 mg IV every 4 hours PRN for nausea. The patient meets thecriteria to convert to the oral equivalent as established by the IV to Oral/Enteral Switch procedure approved by the PTIC committee. Medication was changed from IV formulation to Metoclopramide 10 mgPO every 4 hours PRN for nausea per protocol. Annamarie Burgess, Data Integration Architect Cosigned by Simon Mcdonald RPH at 03/31/2022 2:09 PM EST * Nathalia Chance RN - 03/31/2022 2:00 PM EST Patient off the floor at time of second assessment. Will assess when patient returns. * Rachael Cifuentes RN - 03/31/2022 11:48 AM EST Stress test procedure and medications explained to the patient. Patient verbalized understanding ofprocedure & medications and all questions answered. Patient education reinforced during and after procedure. * Susy Cohen - 03/31/2022 11:00 AM EST 03/31/22 1100 Pastoral Care Encounter Visited With Asleep (tried to visit again pt on phone. tried 3rd time and nurse w pt) Date of visit 03/31/22 Need to follow-up? Yes Shinto Needs Pastoral care brochure * Zoë Santos MD - 03/31/2022 10:37 AM EST [facility] Patient: Stella Hylton LOS: 3 days Cardiology following for:syncope Primary side stitching machine operator:none SUBJECTIVE: Resting in bed. No new complaints. Awaiting tests REVIEW OF SYSTEMS: NEGATIVE FOR: chest pain, dyspnea, palpitations, dizziness, syncope, edema POSITIVE FOR: See subjective. Review of systems is otherwise negative. MEDICATIONS: Scheduled Medications: ??? aspirin 81 mg Oral QAM ??? atorvastatin 10 mg Oral Nightly ??? cefTRIAXone (ROCEPHIN) IVPB (Orderable) 2 g Intravenous Daily ??? pantoprazole (PROTONIX) 40 mg Intravenous Daily Or ??? pantoprazole 40 mg Oral Daily ??? sodium chloride 0.9% Intravenous 2 times per day Continuous Infusions: PRN Medications: acetaminophen, HYDROcodone-acetaminophen, ondansetron OR ondansetron OR metoclopramide HCl,morphine OR morphine, sodium chloride 0.9%, sodium chloride 0.9% PHYSICAL EXAMINATION: Vitals: 03/31/22 0916 BP: 144/82 Pulse: 85 Resp: 18 Temp: 98.4 ??F (36.9 ??C) SpO2: 97% Temp (24hrs), Av.5 ??F (36.9 ??C), Min:98.2 ??F (36.8 ??C), Max:98.9 ??F (37.2 ??C) Weight: 170 lb (77.1 kg) Intake/Output Summary (Last 24 hours) at 03/31/2022 1038 Last data filed at 03/31/2022 1015 Gross per 24 hour Intake 867.09 ml Output -- Net 867.09 ml CONSTITUTIONAL: No apparent distress. Alert and oriented. EYES: Gaze is conjugate. Ptosis is absent. EARS, NOSE, MOUTH, THROAT: Oropharynx is clear. Nose is midline. NECK: Thyromegaly is absent. Trachea is midline. Masses are absent. RESPIRATORY: Respiratory effort is normal. Wheezes are absent. Rales are absent. Rhonchi are absent. CARDIOVASCULAR: Heart rate is noted above. Rhythm is regular. Murmurs are absent. Rubs are absent. S1 and S2 normal. S3 or S4 are absent. Pulses are normal. Jugular venous pressure is normal. Edema is absent. Carotid Bruits are absent. GASTROINTESTINAL: Bowel sounds are normal. Hepatomegaly is absent. Splenomegaly is absent. Abdomen is soft and non tender. MUSCULOSKELETAL: Clubbing is absent. Cyanosis is absent. SKIN: Rashes are visually absent. Turgor is normal. Warm and dry. NEUROLOGICAL: Grossly non focal. PSYCHIATRIC: Mood is normal. Affect is normal. LABORATORY AND STUDIES: Lab Results Component Value Date WBC 9.1 03/30/2022 HGB 12.9 03/30/2022 HCT 39.4 03/30/2022 MCV 87.8 03/30/2022 PLT 323 03/30/2022 Lab Results Component Value Date NA 142 03/28/2022 K 3.9 03/28/2022 CL 105 03/28/2022 CO2 26 03/28/2022 BUN 18 03/28/2022 CREATININE 0.67 03/28/2022 CALCIUM 9.1 03/28/2022 GLU 90 03/28/2022 No results found for: PT, INR, APTT No results found for: ALKPHOS, ALT, AST, PROT, LABBILI, LABALBU No results found for: AMYLASE, LIPASE No results found for: TROPONINT No results found for: BNP Lab Results Component Value Date SPECGRAV 1.026 03/28/2022 UAPROTEIN Trace (10-20 mg/dL) 03/28/2022 BLOODU Negative 03/28/2022 NITRITE Positive (A) 03/28/2022 LEUKOCYTESUR 3+ (250 Zena/mcl) (A) 03/28/2022 WBCUA 5 (H) 03/28/2022 RBCUA 1 03/28/2022 No results found for: PH, PCO2, PO2, HCO3, TCO2, BASEEXCESS, O2SAT, INSPIREDO2, SPECIMENTYPE IMAGING: US THYROID Result Date: 03/30/2022 THYROID SONOGRAPHY, 03/30/2022 3:36 PM CLINICAL HISTORY: Thyroid nodule(s). -L thyroid cyst. COMPARISON: None. PROCEDURE COMMENTS: Sonographic evaluation of the thyroid gland per protocol. Images andtechnologist notes reviewed. METHODOLOGY: Up to 4 nodules with the highest scores are reported using the Thyroid Imaging Reporting and Data System (TI-RADS). This system promotes a common lexicon forthyroid nodule description, focusing on relevant imaging characteristics to allow risk stratification of individual nodules and makes recommendations for biopsy or sonographic follow-up based on the estimated risk profile. Deviation from management recommendations may be appropriate based on individual patient variables. For comprehensive details, refer to https://www.acr.org/clinical-resources/czhiffblm-fxo-mdzp-systems/ti-rads. Right lobe measures: 3.8 x 1.7 x 1.9 cm Left lobe measures: 4.0 x1.3 x 1.8 cm RIGHT- side lymph nodes: No suspicious lymph nodes. LEFT-side lymph nodes: No suspicious lymph nodes. Nodule #1: Location: Posterior RIGHT upper pole Size: 0.6 x 0.5 x 0.5 cm Prior measurement None. Composition: Mixed cystic and solid. 1 Point. Echogenicity: Hypoechoic (equal to or moreechogenic than strap muscles.) 2 points. Shape: Not taller than wide. 0 points. Margin: Smooth. 0 po ints. Echogenic foci: None or large comet-tails. 0 points. Total points: 3 points. TI-RADS category3. FNA if 2.5cm or greater in longest [...] 1. No FNA or follow-up suggested. Nodule #: Location: LEFT lateral Size: 1.1 x 0.7 x 0.8 cm Prior measurement None. Composition: Cystic or almost completely cystic. 0 points. Echogenicity: Anechoic.0 points. Shape: Not taller than wide. 0 points. Margin: Smooth. 0 points. Echogenic foci: None or large comet-tails. 0 points. Total points: 0 Points. TI-RADS category 1. No FNA or follow-up suggested. Numerous additional colloid and spongiform nodules are present. Multiple small and benign-appearing thyroid nodules. - Note: Radiology results need to be interpreted within a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 placement, right extracorporeal shock wave lithotripsy; Surgeon: Dinh Wheeler MD; Location: [facility] MAIN OR; Service: Urology ??? HEMORRHOID SURGERY ??? HIP ARTHROPLASTY Right 02/16/2014 RIGHT TOTAL HIP REPLACEMENT; Surgeon: Bruce Oh MD; Location: [facility] MAIN OR; Service: Orthopedics ??? HYSTERECTOMY complete ??? LITHOTRIPSY Right 11/28/2019 Surgeon: Amari Wheeler MD; Location: [facility]IN [facility]; Service: Urology ??? LUMBAR DISC SURGERY 11/03/2012 Surgeon: Elza Bautista MD; Location: [facility] MAIN OR; Service: ??? TOTAL KNEE ARTHROPLASTY Left 12/28/2018 left knee total replacement; Surgeon: Bruce Oh MD; Location: [facility] OR; Service: Orthopedics ??? URETEROSCOPY Right 01/02/2020 cystoscopy, Right Flexible Ureteroscopy, Retrograde, Stent Exchange, Laser Lithotripsy, Basket Retrieval of stone fragments; Surgeon: Amari Wheeler MD; Location: [facility]; Service: Urology Family History Problem Relation Age of Onset ??? Early Father accident ??? Early Sister ??? Substance Abuse Sister ??? Early Brother accident ??? Early Mother accident ??? Anesth Problems Neg Hx SOCIAL HISTORY: reports that she quit smoking about 27 years ago. Her smoking use included cigarettes. She has a 2.50 pack-year smoking history. She has never used smokeless tobacco. She reports thatshe does not drink alcohol and does not use drugs. Vitals: BP [...] gallop, or rub. No jugular venous distension. PMI nondisplaced. ABD: soft, nontender, positive bowel sounds, no hepatosplenomegaly or bruits. EXT: no edema, +2 radial, +2 PT [...] GLU 90 03/28/2022 Active Hospital Problems Diagnosis ??? *Syncope, unspecified syncope type ??? Hypercholesterolemia Impression -syncope which sound like Negron-Nur attacks -SOL and diaphoresis Plan Monitor the rhythm lexiscan myoview to evaluate the SOL/diaphoresis Echo Thank you very much for allowing me to see this patient in consultation. 03/30/2022 1:26 PM [address] [facility] documented in this encounter ED Notes * Stefania Joiner RN - 03/29/2022 11:39 AM EST Report called to Theresa EATON on 4D. Patient aware of transport to floor. No needs at this time. Stefania Joiner RN * Bruce Gaitan RN - 03/29/2022 5:02 AM EST Pt assisted to bathroom with standy assist. Pt resting in bed. Instructed on use of call light, call light in reach. Plan of care explained. Expected timeline explained. Comfortable. Denies questions. Denies needs. Will continue to monitor * Zahra Rodriguez RN - 03/28/2022 11:19 AM EST Nikunj Winters, point of contact [phone] * Jesus Hamlin APRN - 03/28/2022 11:08 AM EST Chief Complaint Patient presents with ??? Loss of Consciousness Pt had same episode x2 wks ago and placed on holter monitor which was negative. Pt had same episodeyest. Stella Hylton is a 76-year-old female past medical history of kidney stones, hyperlipidemia, osteopenia who presents the emergency department on advice of her primary care provider for syncopal episode. Patient tells me she has had 3 syncopal episodes all several weeks apart. 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 Most recent syncopal episode ye ster early afternoon. She tells me she was in her car driving when it happened. She states she may have felt a little bit lightheaded but denies any sensation of feeling like she passed out. Tellsme she just woke up in the parking lot. Again felt a little bit weak after incident but otherwise feels fine. She has not been exerting herself, denies positional lightheadness, denies any headache. All of her episodes have been while sitting, she denies any rapid neck movements. She called her doctor yesterday around noon and they advised her to come to the emergency department. She comes in 24 hours later. She is asymptomatic. Was being worked up by her primary care provider for this same issue, most recently seen 01/17/22, had a Holter monitor and blood work all of which have not found anycause for her symptoms. She did have an ophthalmology appointment this morning around 10 AM and her left pupil dilated and received injections. Last echo 2013 EF 55-60%. Patient History Allergies Allergen Reactions ??? Celecoxib Rash Home Medications: Prior to Admission medications Medication Sig Start Date End Date Taking? Authorizing Provider aspirin 81 mg Oral Tablet, Delayed Release (E.C.) Take 1 Tab by mouth every morning. Provider, Historical atorvastatin (LIPITOR) 10 mg Oral Tablet TAKE 1 TABLET BY MOUTH EVERY DAY 10/21/21 Mann Sam MD ergocalciferol (DRISDOL) 1,250 mcg (50,000 unit) Oral Capsule TAKE 1 CAPSULE BY MOUTH ONE TIME PER WEEK 02/06/20 Mann Sam MD ipratropium (ATROVENT) 21 mcg (0.03 %) Nasl [place], Non-Aerosol 2 Sprays by Nasal route 3 times daily. 09/16/21 Carl Sam MD loperamide (IMODIUM) 2 mg Oral Capsule Take 1 Capsule by mouth 4 times daily as needed for Diarrhea. 09/17/21 Carl Sam MD loratadine-pseudoephedrine (ALLERGY RELIEF D-24HR) 10-240 mg Oral Tablet Sustained Release 24 hr TAKE 1 TABLET BY MOUTH EVERY DAY NOT COVERED 09/05/21 Mann Sam MD Past Medical History: Past Medical History: Diagnosis Date ??? Allergy ??? Arthritis generalized ??? Does use hearing aid bilateral ??? Hyperlipidemia ??? Kidney stone hx of ??? Motion sickness seasick ??? Osteopenia ??? Post-operative nausea and vomiting ??? Urinary tract infection frequent UTI's Social History: reports that she quit smoking about 27 years ago. Her smoking use included cigarettes. She has a 2.50 pack-year smoking history. She has never used smokeless tobacco. She reports thatshe does not drink alcohol and does not use drugs. E-Cigarettes (such as Vapes or Juul) ??? E-Cigarette Use Never User Family History: Family History Problem Relation Age of Onset ??? Early Father accident ??? Early Sister ??? Substance Abuse Sister ??? Early Brother accident ??? Early Mother accident ??? Anesth Problems Neg Hx Surgical History: Past Surgical History: Procedure Laterality Date ??? BLADDER TUMOR EXCISION N/A 10/26/2019 cystoscopy, bladder biopsy and fulguration of lesions of bladder; Surgeon: Amari Wheeler MD; Location: [facility] MAIN OR; Service: Urology ??? CATARACT REMOVAL Right 02/28/2019 RIGHT EYE CATARACT EXTRACTION WITH PHACOEMULSIFICATION AND INTRAOCULAR LENS; Surgeon: Conor Ramirez MD; Location: [facility]; Service: Ophthalmology ??? CATARACT REMOVAL Left 03/14/2019 LEFT EYE CATARACT EXTRACTION WITH PHACOEMULSIFICATION AND INTRAOCULAR LENS; Surgeon: Conor Ramirez MD; Location: [facility]; Service: Ophthalmology ??? COLONOSCOPY ??? CYSTOSCOPY Right 11/28/2019 cystoscopy right stent placement, right extracorporeal shock wave lithotripsy; Surgeon: Dinh Wheeler MD; Location: [facility] MAIN OR; Service: Urology ??? HEMORRHOID SURGERY ??? HIP ARTHROPLASTY Right 02/16/2014 RIGHT TOTAL HIP REPLACEMENT; Surgeon: Bruce Oh MD; Location: [facility] MAIN OR; Service: Orthopedics ??? HYSTERECTOMY complete ??? LITHOTRIPSY Right 11/28/2019 Surgeon: Amari Wheeler MD; Location: [facility]IN [facility]; Service: Urology ??? LUMBAR DISC SURGERY 11/03/2012 Surgeon: Elza Bautista MD; Location: [facility] MAIN OR; Service: ??? TOTAL KNEE ARTHROPLASTY Left 12/28/2018 left knee total replacement; Surgeon: Bruce Oh MD; Location: [facility] MAIN OR; Service: Orthopedics ??? URETEROSCOPY Right 01/02/2020 cystoscopy, Right Flexible Ureteroscopy, Retrograde, Stent Exchange, Laser Lithotripsy, Basket Retrieval of stone fragments; Surgeon: Amari Wheeler MD; Location: [facility] MAIN OR; Service: Urology Review of Systems Review of Systems Constitutional: Negative for chills and fever. HENT: Negative. Eyes: Negative. Respiratory: Negative for cough and shortness of breath. Cardiovascular: Negative for chest pain, palpitations and leg swelling. Gastrointestinal: Negative for abdominal pain, diarrhea, nausea and vomiting. Genitourinary: Negative for dysuria and frequency. Musculoskeletal: Negative. Skin: Negative for rash. Neurological: Positive for syncope. Psychiatric/Behavioral: Negative. All other systems reviewed and are negative. Physical Exam Blood pressure (!) 167/79, pulse 91, temperature 98.8 ??F (37.1 ??C), temperature source Oral, resp. rate 18, height 5' (1.524 m), weight 170 lb (77.1 kg), SpO2 97 %, not currently . Physical Exam Vitals and nursing note reviewed. Constitutional: General: She is not in acute distress. Appearance: She is well-developed. She is not ill-appearing, toxic-appearing or diaphoretic. Eyes: Conjunctiva/sclera: Conjunctivae normal. Pupils: Pupils are equal, round, and reactive to light. Comments: Left pupil fixed dilated. Cardiovascular: Rate and Rhythm: Normal rate and regular rhythm. Heart sounds: No murmur heard. No friction rub. No gallop. Pulmonary: Effort: Pulmonary effort is normal. Breath sounds: Normal breath sounds. Abdominal: General: Bowel sounds are normal. There is no distension. Palpations: Abdomen is soft. Tenderness: There is no abdominal tenderness. Musculoskeletal: Cervical back: Normal range of motion and neck supple. Lymphadenopathy: Cervical: No cervical adenopathy. Skin: General: Skin is warm and dry. Findings: No rash. Neurological: Mental Status: She is alert and oriented to person, place, and time. 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 Mann Sam MD Patient was monitored for 48 hours. INDICATIONS: Orthostatic hypotension CONCLUSION: Patient monitored for 2d 3h starting on 02/17/2022 09:24 am. Primary rhythm was Sinus Rhythm. Average heart rate was 88 bpm, Minimum heart rate was 67 bpm on Day :29:10 am, Max heart rate was 136 bpm on Day :57:50 pm SVE(s): Hoffman was 0.45 %, max count per 24 hours 581 SVT (AT, RT): 1 events, longest event 3 beats on Day :12:59 am, fastest event 181 bpm on Day :12:59 am PVC(s): Hoffman was 0.08 %, max count per 24 hours 104, 2 disparate morphologies PHYSICIAN SUMMARY: 1. Sinus rhythm with heart rates 67-136 bpm; average 88 bpm. 2. Occasional PACs. Occasional PVCs. 3. No detected arrhythmias. 4. No significant heart block or pauses. 5. No symptoms reported. Electronically Signed On 02-26-2022 19:01:30 EDT by Sergio Vincent Carotid Duplex 10/31/21 IMPRESSION Conclusions * The right internal carotid artery demonstrates high end 1-39% stenosis. * The left internal carotid artery demonstrates 1-39% mild stenosis. * The bilateral vertebral arteries are patent with antegrade flow. * There are 2 cystic structures noted in the right thyroid measuring 0.41 x 0.47 cm and 0.32 x 0.62 cm. * There is a cystic structure noted in the left thyroid measuring 0.61 x 0.70 cm. Results for orders placed or performed during the hospital encounter of 03/28/22 CBC Result Value Ref Range WBC 11.0 (H) 3.7 - 10.3 x10(3)/mcL RBC 5.05 3.90 - 5.20 x10(6)/mcL Hgb 14.4 11.2 - 15.7 g/dL Hct 45.4 (H) 34.0 - 45.0 % MCV 89.9 80.0 - 100.0 fL MCH 28.5 26.0 - 34.0 pg MCHC 31.7 30.7 - 35.5 g/dL RDW 13.6 <=14.9 % Platelet 357 155 - 369 x10(3)/mcL MPV 8.9 8.8 - 12.5 fL BASIC METABOLIC PANEL Result Value Ref Range Sodium 142 136 - 145 mmol/L Potassium 3.9 3.5 - 5.0 mmol/L Chloride 105 98 - 107 mmol/L Total CO2 26 22 - 29 mmol/L Anion Gap 11 7 - 16 mmol/L Calcium 9.1 8.8 - 10.4 mg/dL Glucose Lvl 90 82 - 100 mg/dL BUN 18 8 - 23 mg/dL Creatinine 0.67 0.51 - 1.30 mg/dL eGFR (CKD-EPIcr 2020) 91 >=60 mL/min/1.73 m2 TROPONIN-T HIGH SENSITIVITY BASELINE W/ REFLEX Result Value Ref Range gy-hFwfdhkhz-Z 10 <14 ng/L Narrative Ingestion of lakshmi doses of biotin (>5 mg/day) taken within 8 hours of drawing blood sample can interfere with this immunoassay test. UA W/REFLEX TO CULTURE Specimen: Urine, Clean Catch Narrative The following orders were created for panel order UA W/REFLEX TO CULTURE. Procedure Abnormality Status --------- ------ URINALYSIS[[id number]] Abnormal Final result EXTRA MORENO URINE CX[[id number]] In process Please view results for these tests on the individual orders. URINALYSIS Result Value Ref Range UA Color Yellow UA Appear Clear Clear UA Glucose Negative Negative mg/dL UA Ketones Negative Negative mg/dL UA Blood Negative Negative UA pH 6.0 5.0 - 8.0 pH UA Protein Trace (10-20 mg/dL) Negative mg/dL UA Urobilinogen Normal <=1 mg/dL UA Bili Negative Negative UA Nitrite Positive (A) Negative UA Leuk Est 3+ (250 Zena/mcl) (A) Negative UA Spec Grav 1.026 1.001 - 1.035 no units UA WBC 5 (H) 0 - 4 /HPF UA RBC 1 0 - 3 /HPF UA Squam Epi 1+ /LPF UA Mucus Trace /LPF UA Bacteria 1+ (A) Negative /HPF EK EKG [address] 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 Sam PCP discussed case asymptomatic at this time willing to see outpatient but given age recommend admission. [RF] ED Course User Index [RF] Jesus Hamlin APRN Patient presents with syncopal episode yesterday, has had several over the past few weeks, she is asymptomatic on arrival, outpatient work-up including Holter monitor all negative. No headache or strokelike symptoms, no palpitations or prodromal symptoms, all have been while sitting down. Vital signs stable, patient very well-appearing negative orthostatics. Given age risk factors recommend admission for further testing possibly echo or brain MRI. TCU. Spoke with Dr. Byrd who agreed to accept patient for admission. ED Clinical Impression: 1. Syncope, unspecified syncope type Condition at Discharge/Transfer from Department: Stable This chart was completed using voice recognition technology and may contain unintended errors Jesus Hamlin APRN 03/28/22 1426 Cosigned by Marivel King DO at 03/28/2022 6:09 PM EST Associated attestation - Marivel King DO - 03/28/2022 6:09 PM EST I have reviewed the chief complaint and history of present illness and review of systems as well asthe past medical/social/family history sections for this patient. I have examined this patient, andparticipated in the care of this patient. I have reviewed the pertinent clinical information including physical exam, labs, radiographic studies and the plan. This patient was seen in coordination with PA/NICU RN. This chart was completed using voice recognition technology and may contain unintended errors documented in this encounter Miscellaneous Notes * Utilization Review Notes - Radha Hill RN - 04/01/2022 11:55 AM EST OBS ORDER IN Epic ADMISSION REVIEW ON TCU SYNCOPE UTI ORAL KEFLEX * Plan of Care - Nathalia Chance RN - 04/01/2022 10:01 AM EST Problem: Safety: Fall Risk Goal: Patient will remain free of falls and injury Outcome: Progressing Problem: Pain Management Goal: The patient's stated pain goal will be reached and maintained. Description: The patient's stated pain goal will be reached and maintained Outcome: Progressing No complaints of pain qshift. Problem: Assess for New Problems - (ALWAYS ADD TO CARE PLAN) Description: Assess patient for any new problem(s) to add to Care Plan. If no new problem(s) are identified, choose no new problem(s) added . If new problem(s) are identified, choose new problem added and document a note regarding the new problem(s). Add the template for the new problem(s) to the Care Plan. Goal: Patient's care plan will be individualized with added problems when problem is identified Description: Below is a list of the more common patient problems. The list is not all inclusive. When an additional problem is identified add to the Care Plan. To see entire list of additional problem options, search ADDITIONAL PROBLEMS [51] or search for individual problems such as RESTRAINTS [62]. To add an Additional Problem, go to APPLY TEMPLATE. Common problems: Altered bladder elimination [77] Altered bowel elimination [78] Altered mental status [80] Altered mobility [79] Altered skin integrity [86] Jamil scale <18 (prevention) [76] Diabetes newly diagnosed/uncontrolled or A1C >6 [75] Infection [93] Isolation [69] Nutrition imbalance [91] Restraints [94] Outcome: Progressing * Plan of Care - Tonja Millan RN - 03/31/2022 9:50 PM EST Problem: Safety: Fall Risk Goal: Patient will remain free of falls and injury Outcome: Progressing Bed in lowest position, call light within reach, & will call for assistance if needed. Problem: Pain Management Goal: The patient's stated pain goal will be reached and maintained. Description: The patient's stated pain goal will be reached and maintained Outcome: Progressing No complaints of pain qshift. Problem: Knowledge Deficit Related to Disease Process/Treatment Description: Goal: Patient/family will be knowledgeable of disease process and treatment Outcome: Progressing Problem: Assess for New Problems - (ALWAYS ADD TO CARE PLAN) Description: Assess patient for any new problem(s) to add to Care Plan. If no new problem(s) are identified, choose no new problem(s) added . If new problem(s) are identified, choose new problem added and document a note regarding the new problem(s). Add the template for the new problem(s) to the Care Plan. Goal: Patient's care plan will be individualized with added problems when problem is identified Description: Below is a list of the more common patient problems. The list is not all inclusive. When an additional problem is identified add to the Care Plan. To see entire list of additional problem options, search ADDITIONAL PROBLEMS [51] or search for individual problems such as RESTRAINTS [62]. To add an Additional Problem, go to APPLY TEMPLATE. Common problems: Altered bladder elimination [77] Altered bowel elimination [78] Altered mental status [80] Altered mobility [79] Altered skin integrity [86] Jamil scale <18 (prevention) [76] Diabetes newly diagnosed/uncontrolled or A1C >6 [75] Infection [93] Isolation [69] Nutrition imbalance [91] Restraints [94] Outcome: Progressing * Plan of Care - Nathalia Chance RN - 03/31/2022 10:04 AM EST Problem: Safety: Fall Risk Goal: Patient will remain free of falls and injury Outcome: Progressing Problem: Pain Management Goal: The patient's stated pain goal will be reached and maintained. Description: The patient's stated pain goal will be reached and maintained Outcome: Progressing No complaints of pain qshift. Problem: Assess for New Problems - (ALWAYS ADD TO CARE PLAN) Description: Assess patient for any new problem(s) to add to Care Plan. If no new problem(s) are identified, choose no new problem(s) added . If new problem(s) are identified, choose new problem added and document a note regarding the new problem(s). Add the template for the new problem(s) to the Care Plan. Goal: Patient's care plan will be individualized with added problems when problem is identified Description: Below is a list of the more common patient problems. The list is not all inclusive. When an additional problem is identified add to the Care Plan. To see entire list of additional problem options, search ADDITIONAL PROBLEMS [51] or search for individual problems such as RESTRAINTS [62]. To add an Additional Problem, go to APPLY TEMPLATE. Common problems: Altered bladder elimination [77] Altered bowel elimination [78] Altered mental status [80] Altered mobility [79] Altered skin integrity [86] Jamil scale <18 (prevention) [76] Diabetes newly diagnosed/uncontrolled or A1C >6 [75] Infection [93] Isolation [69] Nutrition imbalance [91] Restraints [94] Outcome: Progressing * Plan of Care - Nima Saucedo RN - 03/31/2022 12:38 AM EST Problem: Safety: Fall Risk Goal: Patient will remain free of falls and injury Outcome: Progressing * Utilization Review Notes - Tati Jasso LPN - 03/30/2022 4:12 PM EST CONTINUED STAY REVIEW -4D-TELEMETRY--- INPATIENT ORDER ON CHART SYNCOPE PER CARDIOLOGY CONSULT: 03/30/22: Assessment & Plan ?? Active Hospital Problems ?? Diagnosis ? *Syncope, unspecified syncope type ? Hypercholesterolemia ? 1. Mult episodes syncope- all while sitting without prodrome. Urinary incontinence w all episodes -Recent 2 day Holter was Neg -tele stable -orthostatics neg -echo pending -Carotids pending ?? 2. exertional SOL w sweating -trop neg -EKG SR w NSSTTWA -perla myoview in AM ?? Plan: ? Monitor tele ??? kendrick myoview in AM ??? 30 day EM at d/c if tele unrevealing ??? Advised not to drive until cause of syncope found ? Further input from Dr. Park Nick MD [facility] CARDIOLOGY CONSULT ?? Chief Complaint Patient presents with ??? Loss of Consciousness ? Pt had same episode x2 wks ago and placed on holter monitor which was negative. Pt had same episode yest. Active Hospital Problems ?? Diagnosis ? *Syncope, unspecified syncope type ? Hypercholesterolemia ? Impression -syncope which sound like Negron-Nur attacks -SOL and diaphoresis ?? Plan Monitor the rhythm lexiscan myoview to evaluate the SOL/diaphoresis Echo [id number] PER HOSPITALIST NOTE 03/30/22: Assessment/Plan: ?? 76 y.o.??female??who is here for syncope. Has had 3 episodes in the past few weeks. Events while resting, and no seizure like activity/postictal. Recent Holter was neg. Started on CFTX for UTI. Seen by cards and plan for SPECT ? 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 Leukocytosis afebrille Ua+ PCT: neg resp viral panel Cxr: minimal basal atelectasis vs scarring Start CFTX IVF ?? Carotid stenosis CUS 10/2021 mild bilateral carotid stenosis C/w asa and statin Small L thyroid cyst noted on carotid dopper Thyroid US> pending ?? HLD lipitor ?? Cardiac murmur Systolic murmur Echo: pending ?? dvt ppx: lovenox ?? Full code ?? Dispo: remains ill? Active Hospital Problems ?? Diagnosis ? *Syncope, unspecified syncope type ? UTI (urinary tract infection) ? Bilateral carotid artery stenosis ? Thyroid cyst ? Hypercholesterolemia [id number] MEDICATIONS: IV ROCEPHIN 2G QD IVF 0.9% NACL @ 100 ML/HR CONTINUOUS SEE ADDITIONAL MEDICATIONS PER CHART NOTES. LEXISCAN MYOVIEW TO BE DONE IN AM, 03/31 PENDING ECHO PENDING THYROID US RESULTS. * Plan of Care - Nima Saucedo RN - 03/30/2022 1:36 AM EST Problem: Safety: Fall Risk Goal: Patient will remain free of falls and injury Outcome: Progressing * Utilization Review Notes - Tati Jasso LPN - 03/29/2022 3:14 PM EST ADMISSION REVIEW --E/D TO 4D--TELEMETRY-- INPATIENT ORDER ON CHART SYNCOPE (SEE H/P NOTE BELOW) PER E/D NOTE 03/28/22: CHIEF COMPLAINT: Pt had same episode x2 wks ago and placed on holter monitor which was negative. Pt had same episodeyest. Stella Hylton is a 76-year-old female past medical history of kidney stones, hyperlipidemia, osteopenia who presents the emergency department on advice of her primary care provider for syncopal episode. ?? Patient tells me she has had 3 syncopal episodes all several weeks apart. 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 Most recent syncopal episode ye sterday early afternoon. She tells me she was in her car driving when it happened. She states she may have felt a little bit lightheaded but denies any sensation of feeling like she passed out. Tellsme she just woke up in the parking lot. Again felt a little bit weak after incident but otherwise feels fine. She has not been exerting herself, denies positional lightheadness, denies any headache. All of her episodes have been while sitting, she denies any rapid neck movements. She called her doctor yesterday around noon and they advised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 Negative mg/dL 03/28/2022 2:20 PM EST [facility] UA Ketones Negative Negative mg/dL 03/28/2022 2:20 PM EST [facility] UA Blood Negative Negative 03/28/2022 2:20 PM EST [facility] UA pH 6.0 5.0 - 8.0 pH 03/28/2022 2:20 PM EST [facility] UA Protein Trace (10-20 mg/dL) Negative mg/dL 03/28/2022 2:20 PM EST [facility] UA Urobilinogen Normal <=1 mg/dL 2:20 PM EST [facility] UA Bili Negative Negative 03/28/2022 2:20 PM EST [facility] UA Nitrite Positive(A) Negative 03/28/2022 2:20 PM EST [facility] UA Leuk Est 3+ (250 Zena/mcl)(A) Negative 03/28/2022 2:20 PM EST [facility] UA Spec Grav 1.026 1.001 - 1.035 no units 03/28/2022 2:20 PM EST [facility] Comment:Reference range chong d for random specimens only. UA WBC 5(H) 0 - 4 /HPF 03/28/2022 2:20 PM EST [facility] UA RBC 1 0 - 3 /HPF 03/28/2022 2:20 PM EST [facility] UA Squam Epi 1+ /LPF 03/28/2022 2:20 PM EST [facility] UA Mucus Trace /LPF 03/28/2022 2:20 PM EST [facility] UA Bacteria 1+(A) Negative /HPF 03/28/2022 2:20 PM EST [facility] Urine URINE SPECIMEN COLLECTION, CLEAN CATCH / Unknown 03/28/2022 2:09 PM EST 03/28/2022 2:14 PM EST us Jesus Hamlin FOIL SPOOLER URINE ORDERABLES Final Res ult [facility] [address] [facility], [place] [address] * TROPONIN-T HIGH SENSITIVITY BASELINE W/ REFLEX (03/28/2022 1:23 PM EST) [facility] by-cZhgoevki-K 10 <14 ng/L 03/28/2022 1:46 PM EST [facility] Comment:See the website belo w for rule out [place] care pathway, conditions other than AMI that can cause elevated hs cTnT, and comparison of values from the 4th and 5th generation Rosie tests. [email or web address]/clinical-[email or web address] Blood VENOUS BLOOD / Unknown Venipuncture / Unknown 03/28/2022 1:23 PM EST 03/28/2022 1:26 PM EST Narrative [facility] - 03/28/2022 1:46 PM EST Ingestion of lakshmi doses of biotin (>5 mg/day) taken within 8 hours of drawing blood sample can interfere with this immunoassay test. Jesus Hamlin FOIL SPOOLER CHEMISTRY ORDERABLES Final Result [address] [address] * BASIC METABOLIC PANEL (03/28/2022 1:23 PM EST) [facility] Sodium 142 136 - 145 mmol/L 03/28/2022 1:46 PM EST [facility] Potassium 3.9 3.5 - 5.0 mmol/L 03/28/2022 1:46 PM EST [facility] Chloride 105 98 - 107 mmol/L 03/28/2022 1:46 PM EST [facility] Total CO2 26 22 - 29 mmol/L 03/28/2022 1:46 PM EST [facility] Anion Gap 11 7 - 16 mmol/L 03/28/2022 1:46 PM EST [facility] Calcium 9.1 8.8 - 10.4 mg/dL 03/28/2022 1:46 PM EST [facility] Glucose Lvl 90 82 - 100 mg/dL 03/28/2022 1:46 PM EST [facility] BUN 18 8 - 23 mg/dL 03/28/2022 1:46 PM EST [facility] Creatinine 0.67 0.51 - 1.30 mg/dL 03/28/2022 1:46 PM EST [facility] eGFR (CKD-EPIcr 2020) 91 >=60 mL/min/1.7 3 m2 03/28/2022 1:46 PM EST [facility] Comment:Estimated GFR was ca lculated using the CKD-EPIcr (2020) equation refit without race. The equation is recommended by the National Kid[employer] - [employer] of Neph[employer] Task Force. Blood VENOUS BLOOD / Unknown Venipuncture / Unknown 03/28/2022 1:23 PM EST 03/28/2022 1:26 PM EST us Jesus Hamlin FOIL SPOOLER CHEMISTRY ORDERABLES Final Result Performing Organization Address City/State/[facility] Co de Phone Number [facility] [address] [place] [address] * (ABNORMAL) CBC (03/28/2022 1:23 PM EST) WBC 11.0(H) 3.7 - 10.3 x10(3)/mcL 03/28/2022 1:29 PM EST [facility] RBC 5.05 3.90 - 5.20 x10(6)/mcL 03/28/2022 1:29 PM EST [facility] Hgb 14.4 11.2 - 15.7 g/dL 03/28/2022 1:29 PM EST [facility] Hct 45.4(H) 34.0 - 45.0 % 03/28/2022 1:29 PM EST [facility] MCV 89.9 80.0 - 100.0 fL 03/28/2022 1:29 PM EST [facility] MCH 28.5 26.0 - 34.0 pg 03/28/2022 1:29 PM EST [facility] MCHC 31.7 30.7 - 35.5 g/dL 03/28/2022 1:29 PM EST [facility] RDW 13.6 <=14.9 % 03/28/2022 1:29 PM EST [facility] Platelet 357 155 - 369 x10(3)/mcL 03/28/2022 1:29 PM EST [facility] MPV 8.9 8.8 - 12.5 fL 03/28/2022 1:29 PM EST [facility] Blood VENOUS BLOOD / Unknown Venipuncture / Unknown 03/28/2022 1:23 PM EST 03/28/2022 1:26 PM EST us Jesus Hamlin APRN HEMATOLOGY ORDERABLES Karen keon Result [facility] [address] [place] [address] * EK EKG 12 LEAD (03/28/2022 11:11 AM EST) Anatomical Region Laterality Modality Electrocardiogra phy 03/28/2022 11:1 3 AM EST Impressions 03/28/2022 12:30 PM EST ?[facility] ? Test Date: ?2022-03-28 Pat Name: ? STELLA SCEANNA ?Department: ?? DEPID ? Room: ? Gender: ? Female ? 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 Ap : ?1945 ? Requested By: [facility] Order Number: [id number] ?Reading : ?? Elbert Reyna MD ? Measurements Intervals ?[place] ? Rate: ? 92 ? P: ?77 GA: ? 132 ?QRS: ?82 QRSD: ? 106 ?T: ?48 QT: ? 343 ? QTc: ?425 ? Interpretive Statements SINUS RHYTHM Electronically Signed On 03-28-2022 12:30:04 EST by Elbert Reyna MD Narrative Procedure Note Elbert Reyna MD - 03/28/2022 [facility]: 2022-[facility]-28 Pat Name: STELLA HYLTON Department: DEPID Room: Gender: Female Superintendent Job: Jacob : 1945 Requested By: [facility] Order Number: [id number] Reading MD: Elbert Reyna MD Measurements Intervals [place] Rate: 92 P: 77 GA: 132 QRS: 82 QRSD: 106 T: 48 QT: 343 QTc: 425 Interpretive Statements SINUS RHYTHM Electronically Signed On 03-28-2022 12:30:04 EST by Elbert Reyna MD us Marivel iKng DO IMG ECG ORDERABLES Final Resul t documented in this encounter Visit Diagnoses Diagnosis Syncope, unspecified syncope type Syncope, unspecified syncope type Hypercholesterolemia Pure hypercholesterolemia UTI (urinary tract infection) Urinary tract infection, site not specified Bilateral carotid artery stenosis Occlusion and stenosis of multiple and bilateral precerebral arteries without mention of cerebral infarction Thyroid cyst Cyst of thyroid Diastolic dysfunction Heart disease, unspecified documented in this encounter Admitting Diagnoses Diagnosis Syncope, unspecified syncope type documented in this encounter Administered Medications Inactive Administered Medications - up to 1 most recent administrations Medication Order MAR Action Action Date Dose Rate Site 0.9 % NaCl infusion Intravenous, at 100 mL/hr, CONTINUOUS, Starting on Thu03/28/22 at 1545, Until 03/30/22 at 0836 IV Restarted 03/30/2022 8:52 AM EST 20 mL/hr acetaminophen (TYLENOL) tablet 650 mg 650 mg, Oral, EVERY 4 HOURS PRN, Starting on Thu03/28/22 at 1530, Until Thu04/01/22 at 1712, Pain, Fever, Maximum adult dose of acetaminophen is 4000 mg from all sources in 24 hours. Given 03/31/2022 10:35 PM EST 650 mg aspirin EC tablet 81 mg 81 mg, Oral, EVERY MORNING, First dose on Thu03/29/22 at 0900, Until Discontinued Given 04/01/2022 9:33 AM EST 81 mg atorvastatin (LIPITOR) tablet 10 mg 10 mg, Oral, NIGHTLY, First dose on Thu03/29/22 at 2100, Until Discontinued Given 03/31/2022 8:47 PM EST 10 mg cefTRIAXone in dextrose (ROCEPHIN) 2 gram/50 mL IVPB 2 g 2 g, Intravenous, EVERY 24 HOURS SCHEDULED (Daily), 7 doses, First dose on Thu03/29/22 at 1000, Last dose on Thu04/04/22 at 0900, Administer over 30 Minutes, , Reason for Therapy: Infection Suspected, Indication: Urinary Tract Infection IV Started 03/31/2022 9:34 AM EST 2 g 100 mL/hr cephALEXin (KEFLEX) capsule 500 mg 500 mg, Oral, EVERY 6 HOURS SCHEDULED (4 times per day), 20 doses, First dose on Thu04/02/22 at 0000, Last dose on Thu04/06/22 at 1800, Reason for Therapy: Infection Documented, Indication: Urinary Tract Infection HYDROcodone-acetaminophen (NORCO) 5-325 mg per tablet 1-2 Tablet 1-2 Tablet, Oral, EVERY 4 HOURS PRN, Starting on Thu03/28/22 at 1530, Until Thu04/01/22 at 1712, Pain Unrelieved by Oral Non-Opioid Therapy, Begin with lowest dose unless otherwise directed. Reassess pain in one hour. If pain unrelieved, remainder of dose may be given to patient. Maximum adult dose of acetaminophen is 4000 mg from all sources in 24 hours. metoclopramide HCl (REGLAN) tablet 10 mg 10 mg, Oral, EVERY 4 HOURS PRN, Starting on Thu03/31/22 at 1409, Until Thu04/01/22 at 1712, Nausea, For nausea unrelieved by ondansetron (ZOFRAN) morphine injection 2 mg 2 mg, Intravenous, EVERY 4 HOURS PRN, Starting on Thu03/28/22 at 1529, Until Thu04/01/22 at 1712, Pain Unrelieved by Oral Opioid Therapy, Begin with lowest dose unless otherwise directed. Reassess pain in 15 minutes. If pain unrelieved, remainder of dose may be given to patient. morphine injection 3-4 mg 3-4 mg, Intravenous, EVERY 4 HOURS PRN, Starting on Thu03/28/22 at 1529, Until Thu04/01/22 at 1712, Pain Unrelieved by Oral Opioid Therapy, Begin with lowest dose unless otherwise directed. Reassess pain in 15 minutes. If pain unrelieved, remainder of dose may be given to patient. ondansetron (ZOFRAN) injection 4 mg 4 mg, Intravenous, EVERY 4 HOURS PRN, Starting on Thu03/28/22 at 1530, Until Thu04/01/22 at 1712, Nausea, ondansetron (ZOFRAN) tablet 4 mg 4 mg, Oral, EVERY 4 HOURS PRN, Starting on Thu03/28/22 at 1530, Until Thu04/01/22 at 1712, Nausea pantoprazole (PROTONIX) 40 mg in sodium chloride 0.9% 10 mL injection 40 mg, Intravenous, DAILY, First dose on Thu03/28/22 at 1545, Until Discontinued, Administer IV Push if patient cannot swallow pantoprazole tablets pantoprazole (PROTONIX) tablet 40 mg 40 mg, Oral, DAILY, First dose on Thu03/28/22 at 1545, Until Discontinued, Do not crush or chew Given 04/01/2022 9:33 AM EST 40 mg regadenoson (LEXISCAN) injection 0.4 mg 0.4 mg, Intravenous, ONCE, 1 dose, On Thu03/31/22 at 1300, Stress Meds Given 03/31/2022 12:20 PM EST 0.4 mg sodium chloride 0.9% IV line flush 20-50 mL 20-50 mL, Intravenous, at 150-600 mL/hr, PRN, Starting on Thu03/31/22 at 0932, Until Thu04/01/22 at 1712, Line Care, Flush with a minimum of 20 mL after IVPB to insure complete administration of the dose. May use the saline infusion to back flush IVPB tubing as needed. Rate/Dose Change 03/31/2022 10:12 AM EST 10 mL/hr sodium chloride 0.9% syringe Intravenous, PRN, Starting on Thu03/31/22 at 1128, Until Thu03/31/22 at 1425, Line Care, Flush with 5-10 mL saline pre/post IVP, and 5 mL prior to IVPB or blood product administration., Stress Meds Given 03/31/2022 12:32 PM EST 10 mL sodium chloride 0.9% syringe Intravenous, EVERY 12 HOURS SCHEDULED (2 times per day), First dose on Thu03/31/22 at 1115, Until Discontinued, Flush with 3-5 mL saline for PERIPHERAL saline lock maintenance. Given 04/01/2022 9:34 AM EST 10 mL sodium chloride 0.9% syringe Intravenous, PRN, Starting on Thu03/31/22 at 0932, Until Thu04/01/22 at 1712, Line Care, Flush with 5-10 mL saline pre/post IVP, and 5 mL prior to IVPB or blood product administration. [id number] (MYOVIEW) injection 8-45 millicurie 8-45 millicurie, Intravenous, ONCE PRN, 1 dose, Starting on Thu03/31/22 at 1043, Until Thu03/31/22 at 1222, Radiography/Imaging, Radiology Procedure, Administration dose must be within 10% of the ordered dose for radiopharmaceutical medications., Radiology Given 03/31/2022 12:22 PM EST 30 millicuries On-00e-ihbsyotvezf (MYOVIEW) injection 8-45 millicurie 8-45 millicurie, Intravenous, ONCE PRN, 1 dose, Starting on Thu03/31/22 at 1043, Until Thu03/31/22 at 1040, Radiography/Imaging, Radiology Procedure, Administration dose must be within 10% of the ordered dose for radiopharmaceutical medications., Radiology Given 03/31/2022 10:40 AM EST 10.4 millicuries Right Arm documented in this encounter Active and Recently Administered Medications Times are shown in EST. Scheduled Medication Order 03/30/2022 03/31/2022 04/01/2022 aspirin EC tablet 81 mg 81 mg, Oral, EVERY MORNING, First dose on 03/29/22 at 0900, Until Discontinued 817 (Given - Provider: Faye Lau RN) 921 (Given - Provider: Nathalia Chance, UMA) 932 (Given - Provider: Nathalia Chance RN) atorvastatin (LIPITOR) tablet 10 mg 10 mg, Oral, NIGHTLY, First dose on 03/29/22 at 2100, Until Discontinued 1999 (Given - Provider: Nima Saucedo, UMA) 2046 (Given - Provider: Tonja Millan, UMA) cefTRIAXone in dextrose (ROCEPHIN) 2 gram/50 mL IVPB 2 g (CANCELED) 2 g, Intravenous, EVERY 24 HOURS SCHEDULED (Daily), 7 doses, First dose on 03/29/22 at 1000, Last dose on Thu04/04/22 at 0900, Administer over 30 Minutes, , Reason for Therapy: Infection Suspected, Indication: Urinary Tract Infection 821 (IV Started - Provider: Faye Lau RN)0852 (Stopped - Provider: Faye Lau RN) 0934 (IV Started - Provider: Nathalia Chnace RN)1004 (Stopped - Provider: Nathalia Chance RN) 0900 (Not Given - Provider: Nathalia Chance RN - Reason: Discontinued by Provider) cephALEXin (KEFLEX) capsule 500 mg 500 mg, Oral, EVERY 6 HOURS SCHEDULED (4 times per day), 20 doses, First dose on Thu04/02/22 at 0000, Last dose on Thu04/06/22 at 1800, Reason for Therapy: Infection Documented, Indication: Urinary Tract Infection pantoprazole (PROTONIX) 40 mg in sodium chloride 0.9% 10 mL injection(Linked Group 1) 40 mg, Intravenous, DAILY, First dose on Thu03/28/22 at 1545, Until Discontinued, Administer IV Push if patient cannot swallow pantoprazole tablets 0818 (See Alternative - Provider: Faye Lau RN) 0922 (See Alternative - Provider: Nathalia Chance RN) 0933 (See Alternative - Provider: Nathalia Chance RN) pantoprazole (PROTONIX) tablet 40 mg(Linked Group 1) 40 mg, Oral, DAILY, First dose on Thu03/28/22 at 1545, Until Discontinued, Do not crush or chew 0818 (Given - Provider: Faye Lau RN) 0922 (Given - Provider: Nathalia Chance RN) 0933 (Given - Provider: Nathalia Chance RN) regadenoson (LEXISCAN) injection 0.4 mg (COMPLETED) 0.4 mg, Intravenous, ONCE, 1 dose, On Thu03/31/22 at 1300, Stress Meds 1220 (Given - Provider: Rachael Cifuentes, UMA) sodium chloride 0.9% syringe Intravenous, EVERY 12 HOURS SCHEDULED (2 times per day), First dose on Thu03/31/22 at 1115, Until Discontinued, Flush with 3-5 mL saline for PERIPHERAL saline lock maintenance. 1016 (Given - Provider: Nathalia Chance RN)2046 (Given - Provider: Tonja Millan RN) 0934 (Given - Provider: Nathalia Chance RN) Continuous Medication Order 03/30/2022 03/31/2022 04/01/2022 0.9 % NaCl infusion () Intravenous, at 100 mL/hr, CONTINUOUS, Starting on Thu03/28/22 at 1545, Until Thu03/30/22 at 0836 0028 (New Bag - Provider: Nima Saucedo RN)0732 (IV Paused - Provider: Faye Lau RN)0822 (Rate/Dose Change - Provider: Faye Lau RN)0822 (IV Paused - Provider: Faye Lau RN)0852 (IV Restarted - Provider: Faye Lau RN)1009 (Stopped - Provider: Faye Lau RN)1009 (Stopped - Provider: Faye Lau RN) PRN Medication Order 03/30/2022 03/31/2022 04/01/2022 acetaminophen (TYLENOL) tablet 650 mg 650 mg, Oral, EVERY 4 HOURS PRN, Starting on Thu03/28/22 at 1530, Until Thu04/01/22 at 1712, Pain, Fever, Maximum adult dose of acetaminophen is 4000 mg from all sources in 24 hours. 2235 (Given - Provider: Tonja Millan RN) HYDROcodone-acetaminophen (NORCO) 5-325 mg per tablet 1-2 Tablet 1-2 Tablet, Oral, EVERY 4 HOURS PRN, Starting on Thu03/28/22 at 1530, Until Thu04/01/22 at 1712, Pain Unrelieved by Oral Non-Opioid Therapy, Begin with lowest dose unless otherwise directed. Reassess pain in one hour. If pain unrelieved, remainder of dose may be given to patient. Maximum adult dose of acetaminophen is 4000 mg from all sources in 24 hours. metoclopramide HCl (REGLAN) tablet 10 mg 10 mg, Oral, EVERY 4 HOURS PRN, Starting on Thu03/31/22 at 1409, Until Thu04/01/22 at 1712, Nausea, For nausea unrelieved by ondansetron (ZOFRAN) morphine injection 2 mg(Linked Group 2) 2 mg, Intravenous, EVERY 4 HOURS PRN, Starting on Thu03/28/22 at 1529, Until Thu04/01/22 at 1712, Pain Unrelieved by Oral Opioid Therapy, Begin with lowest dose unless otherwise directed. Reassess pain in 15 minutes. If pain unrelieved, remainder of dose may be given to patient. morphine injection 3-4 mg(Linked Group 2) 3-4 mg, Intravenous, EVERY 4 HOURS PRN, Starting on Thu03/28/22 at 1529, Until Thu04/01/22 at 1712, Pain Unrelieved by Oral Opioid Therapy, Begin with lowest dose unless otherwise directed. Reassess pain in 15 minutes. If pain unrelieved, remainder of dose may be given to patient. ondansetron (ZOFRAN) injection 4 mg(Linked Group 3) 4 mg, Intravenous, EVERY 4 HOURS PRN, Starting on Thu03/28/22 at 1530, Until Thu04/01/22 at 1712, Nausea, ondansetron (ZOFRAN) tablet 4 mg(Linked Group 3) 4 mg, Oral, EVERY 4 HOURS PRN, Starting on Thu03/28/22 at 1530, Until Thu04/01/22 at 1712, Nausea sodium chloride 0.9% IV line flush 20-50 mL 20-50 mL, Intravenous, at 150-600 mL/hr, PRN, Starting on Thu03/31/22 at 0932, Until Thu04/01/22 at 1712, Line Care, Flush with a minimum of 20 mL after IVPB to insure complete administration of the dose. May use the saline infusion to back flush IVPB tubing as needed. 0934 (IV Started - Provider: Nathalia Chance RN)0934 (IV Paused - Provider: Nathalia Chance RN)1004 (IV Restarted - Provider: Nathalia Chance RN)1012 (Rate/Dose Change - Provider: Nathalia Chance RN)1014 (Stopped - Provider: Nathalia Chance RN) sodium chloride 0.9% syringe (CANCELED) Intravenous, PRN, Starting on Thu03/31/22 at 1128, Until Thu03/31/22 at 1425, Line Care, Flush with 5-10 mL saline pre/post IVP, and 5 mL prior to IVPB or blood product administration., Stress Meds 1232 (Given - Provider: Rachael Cifuentes RN) sodium chloride 0.9% syringe Intravenous, PRN, Starting on Thu03/31/22 at 0932, Until Thu04/01/22 at 1712, Line Care, Flush with 5-10 mL saline pre/post IVP, and 5 mL prior to IVPB or blood product administration. [id number]-mbdopgunzye (MYOVIEW) injection 8-45 millicurie (COMPLETED) 8-45 millicurie, Intravenous, ONCE PRN, 1 dose, Starting on Thu03/31/22 at 1043, Until Thu03/31/22 at 1222, Radiography/Imaging, Radiology Procedure, Administration dose must be within 10% of the ordered dose for radiopharmaceutical medications., Radiology 1222 (Given - Provider: Addy Vargas, ORDER ENTRY) [id number] (MYOVIEW) injection 8-45 millicurie (COMPLETED) 8-45 millicurie, Intravenous, ONCE PRN, 1 dose, Starting on Thu03/31/22 at 1043, Until Thu03/31/22 at 1040, Radiography/Imaging, Radiology Procedure, Administration dose must be within 10% of the ordered dose for radiopharmaceutical medications., Radiology 1040 (Given - Provider: Addy Vargas, ORDER ENTRY) Linked Groups Order Group 1: pantoprazole (PROTONIX) 40 mg in sodium chloride 0.9% 10 mL injectionJump to med 40 mg, Intravenous, DAILY, First dose on Thu03/28/22 at 1545, Until Discontinued, Administer IV Push if patient cannot swallow pantoprazole tablets Or pantoprazole (PROTONIX) tablet 40 mgJump to med 40 mg, Oral, DAILY, First dose on Thu03/28/22 at 1545, Until Discontinued, Do not crush or chew Group 2: morphine injection 2 mgJump to med 2 mg, Intravenous, EVERY 4 HOURS PRN, Starting on Thu03/28/22 at 1529, Until Thu04/01/22 at 1712, Pain Unrelieved by Oral Opioid Therapy, Begin with lowest dose unless otherwise directed. Reassess pain in 15 minutes. If pain unrelieved, remainder of dose may be given to patient. Or morphine injection 3-4 mgJump to med 3-4 mg, Intravenous, EVERY 4 HOURS PRN, Starting on Thu03/28/22 at 1529, Until Thu04/01/22 at 1712, Pain Unrelieved by Oral Opioid Therapy, Begin with lowest dose unless otherwise directed. Reassess pain in 15 minutes. If pain unrelieved, remainder of dose may be given to patient. Group 3: ondansetron (ZOFRAN) tablet 4 mgJump to med 4 mg, Oral, EVERY 4 HOURS PRN, Starting on Thu03/28/22 at 1530, Until Thu04/01/22 at 1712, Nausea Or ondansetron (ZOFRAN) injection 4 mgJump to med 4 mg, Intravenous, EVERY 4 HOURS PRN, Starting on Thu03/28/22 at 1530, Until Thu04/01/22 at 1712, Nausea, Or metoclopramide HCl (REGLAN) injection 10 mg (CANCELED) 10 mg, Intravenous, EVERY 4 HOURS PRN, Starting on Thu03/28/22 at 1530, Until Thu03/31/22 at 1409, Nausea, For nausea unrelieved by ondansetron (ZOFRAN) documented in this encounter Orders Medications Ordered That Parish ht Not Have Been Administered Count Last Ordered Date First Ordered Date cephALEXin (KEFLEX) capsule 500 mg 1 2021 albuterol (PROVENTIL HFA; VE NTOLIN HFA) INHALER 2 Puff 1 03/31/2022 aminophylline injection 125 mg 1 03/31/2022 metoclopramide HCl (REGLAN) tablet 10 mg 1 03/31/2022 nitroGLYCERIN (NITROSTAT) SL tablet 0.4 mg 1 03/31/2022 sodium chloride 0.9 % 250 mL IV bolus 1 sodium chloride 0.9% IV line flush 20-50 mL 1 03/31/2022 sodium chloride 0.9% syringe 1 03/31/2022 HYDROcodone-acetaminophen (N ORCO) 5-325 mg per tablet 1-2 Tablet 1 03/28/2022 metoclopramide HCl (REGLAN) injection 10 mg 1 03/28/2022 morphine injection 2 mg 1 03/28/2022 morphine injection 3-4 mg 1 03/28/2022 ondansetron (ZOFRAN) injection 4 mg 1 03/28 ondansetron (ZOFRAN) tablet 4 mg 1 03/28/20 pantoprazole (PROTONIX) 40 m g in sodium chloride 0.9% 10 mL injection 1 03/28/2022 sodium chloride 0.9% IV line flush 50 mL 1 03/28/2022 sodium chloride 0.9% syringe 5-10 mL 1 03/11 Nursing Count Last Ordered Date First Orde red Date CARDIAC MONITORING 1 03/28/2022 ORTHOSTATIC BLOOD PRESSURE AND PULSE 1 03/11 PULSE OXIMETRY - NURSING 1 03/28/2022 Consult Count Last Ordered Date First Orde red Date IP CONSULT TO CARDIOLOGY 2 03/29/2022 PT Count Last Ordered Date First Orde red Date IP CONSULT TO PHYSICAL THERAPY 1 03/28/2022 ONGOING PHYSICAL THERAPY PER PLAN OF CARE 1 03/28/2022 Respiratory Care Count Last Ordered Date First Ordered Date RESPIRATORY MEDICATION(S) BY MDI 1 03/31/20 IV Count Last Ordered Date First Orde red Date SALINE LOCK IV 1 03/28/2022 Admission Count Last Ordered Date First Orde red Date ADMIT 2 04/01/2022 03/28/2022 Discharge Count Last Ordered Date First Orde red Date DISCHARGE PATIENT 1 04/01/2022 ADT Update Count Last Ordered Date First Orde red Date INTENT TO DISCHARGE 1 03/31/2022 documented in this encounter Additional Health Concerns Infection Onset Date Last Indicated Resolved Time ESBL organism 11/16/2019 11/16/2019 03/28/2022 1:0 5 PM EST R/O COVID-19 03/29/2022 03/29/2022 03/30/2022 12:1 6 PM EST Assessment Noted Time A fall risk assessment has been complete d for the patient 02/05/2021 7:27 AM EDT documented as of this encounter Care Teams Inside Sales Manager Relationship Specialty Start Date End Date [place] [address] [place] [address] PCP - General Internal Medicine 08/23/12 07/13/22 documented as of this encounter
--- OUTSIDE RECORDS SUMMARY | 2024-03-27 15:01 | XMS_ITS | Encounter Summary ---
Author [place] [address] Care Team Providers Care Care Analyst Name Role Phone Mann Irene MD Primary Care Provider [phone] Reason for Visit * Reason Onset Date Comments Medication Management 03/18/2021 meloxicam (MOBIC) 15 mg Oral [id number] Ydlwhk34/28// Encounter Details Date Type Department Care Team (Late st Contact Info) Description 03/18/2021 Telephone [facility] [address] [place], [place] [address] Mann Irene MD [address] [place] [address] Medication Management (meloxicam (MOBIC) 15 mg Oral [id number] Adcpit44/ 22) Social History Tobacco Use Types Packs/Day Years Used Date Smoking Tobacco: Former Cigarettes 0.5 5 1 990 - 1994 Smokeless Tobacco: Never Comments:quit in 1998 Alcohol Use Standard Drinks/Week Comments No 0 (1 standard drink = 0.6 oz pur e alcohol) PHQ-2 Answer Date Recorded PHQ-2 Total Score 0 02/05/2021 Comments No Sex and Gender Information Value Date Recorded Sex Assigned at Not on file Legal Sex Female 5:30 PM EDT Gender Identity Not on file Sexual Orientation Not on file documented as of this encounter Functional Status * Is the person deaf or does he/she have serious difficulty hearing? Answer Date of Assessment Author No 02/05/2021 7:28 AM Tomi Huggins CCMA * Is the person blind or does he/she have serious difficulty seeing even when wearing glasses? Answer Date of Assessment Author No 02/05/2021 7:28 AM Tomi Huggins CCMA * Does this person have serious difficulty walking or climbing stairs? Answer Date of Assessment Author No 02/05/2021 7:28 AM Tomi Huggins CCMA * Does this person have difficulty dressing or bathing? Answer Date of Assessment Author No 02/05/2021 7:28 AM Tomi Huggins CCMA * Because of a physical, mental or emotional condition, does this person have difficulty doing errands alone such as visiting a doctor's office or shopping? Answer Date of Assessment Author No 02/05/2021 7:28 AM Tomi Huggins CCMA documented as of this encounter Mental Status * Because of a physical, mental or emotional condition, does this person have serious difficulty concentrating, remembering or making decisions? Answer Entry Date Author No 02/05/2021 7:28 AM Tomi Huggins CCMA documented in this encounter Ordered Prescriptions Prescription Sig Dispense Quantity Refills Last Filled Start Date End Date diclofenac (VOLTAREN) 75 mg Oral Tablet, Delayed Release (E.C.) Take 1 Tablet by mouth 2 times daily for 180 days. with meals 180 Tablet 1 03/18/2021 09/16/2021 documented in this encounter Miscellaneous Notes * Telephone Encounter - Mann Irene MD - 03/18/2021 1:13 PM EST Done. * Telephone Encounter - Dominick Kierstencyril Albarran - 03/18/2021 12:18 PM EST meloxicam (MOBIC) 15 mg Oral Tablet 90 Tablet 1 02/05/2021 08/04/2021 Sig - Route: Take 1 Tablet by mouth daily for 180 days. - Oral Sent to pharmacy as: meloxicam 15 mg tablet (MOBIC) E-Prescribing Status: Receipt confirmed by pharmacy (02/05/2021 ??9:24 AM EDT) Pt says this medication makes her sick to her stomach and wants to go back to the diclofenac. She would like a new RX for 90 days sent to [id number] - [place] [id number] [address] [facility] [phone] documented in this encounter Plan of Treatment Upcoming Encounters Date Type Department Care Team (Late st Contact Info) Description 05/16/2024 9:30 AM EST Office Visit [facility] [address] [place] [address] Gilda Francis PA [address] [place] [address] documented as of this encounter Visit Diagnoses Not on filedocumented in this encounter Discontinued Medications Medication Sig Discontinue Reason Start Date End Da te meloxicam (MOBIC) 15 mg Oral TabletIndications:Osteoart hritis, unspecified osteoarthritis type, unspecified site Take 1 Tablet by mouth daily for 180 days. Cancelled by 02/05/2021 03/18/2021 documented as of this encounter Additional Health Concerns Infection Onset Date Last Indicated Resolved Time ESBL organism 11/16/2019 11/16/2019 03/28/2022 1:0 5 PM EST Assessment Noted Time A fall risk assessment has been complete d for the patient 02/05/2021 7:27 AM EDT documented as of this encounter Care Teams Care Analyst Relationship Specialty Start Date End Date Mann Irene MD [address] [place] [id number] PCP - General Internal Medicine 08/23/12 07/13/22 documented as of this encounter
--- OUTSIDE RECORDS SUMMARY | 2024-03-27 15:01 | XMS_ITS | Encounter Summary ---
Author Organization [place] [address] Care Team Providers Care Die Holder Name Role Phone Mann Irene MD Primary Care Provider [phone] Reason for Visit * Reason Onset Date Comments Appointment Needed 01/24/2022 Passed out on ce yesterday Encounter Details Date Type Department Care Team (Late st Contact Info) Description 01/24/20[address] [place] [address] Mann Irene MD [employer] [facility] [place] [address] Appointment Needed (Passed out once yesterday ) Social History Tobacco Use Types Packs/Day Years Used Date Smoking Tobacco: Former Cigarettes 0.5 5 1 0 - 1994 Smokeless Tobacco: Never Comments:quit in 1998 Alcohol Use Standard Drinks/Week Comments No 0 (1 standard drink = 0.6 oz pur e alcohol) PHQ-2 Answer Date Recorded PHQ-2 Total Score 0 09/24/2021 Comments No Sex and Gender Information Value Date Recorded Sex Assigned at Not on file Legal Sex Female 5:30 PM EDT Gender Identity Not on file Sexual Orientation Not on file COVID-19 Exposure Response Date Recorded In the last 10 days, have yo u been in contact with someone who was confirmed or suspected to have Coronavirus/COVID-19? No / Unsure 02/17/2022 9:14 AM EDT documented as of this encounter [...] Telephone Encounter - Brittany Slaughter CCMA - 01/24/2022 11:12 AM EDT Appt made * Telephone Encounter - Lo Hampton - 01/24/2022 10:49 AM EDT Appointment Needed Appointment Requested By: Patient Provider Preference: PCP Only Type of Appt Needed: Acute Detailed Reason for Appt: had episode on she passed out once Requested Timeframe: Other Thursday Reason Scheduling Assistance is Needed: -no appts available with provider preference in time frame needed Additional Notes: Was advised to go to urgent care or Er if happens again before Thursday documented in this encounter Plan of Treatment Upcoming Encounters Date Type Department Care Team (Late st Contact Info) Description 05/16/2024 9:30 AM EST Office Visit [facility] [address] [place] [phone] Gilda Francis PA [address] [place] [address] documented as of this encounter Visit Diagnoses Not on filedocumented in this encounter Additional Health Concerns Infection Onset Date Last Indicated Resolved Time ESBL organism 11/16/2019 11/16/2019 03/28/2022 1:0 5 PM EST Assessment Noted Time A fall risk assessment has been complete d for the patient 02/05/2021 7:27 AM EDT documented as of this encounter Care Teams Die Holder Relationship Specialty Start Date End Date Mann Irene MD [address] [place] [phone] PCP - General Internal Medicine 08/23/12 07/13/22 documented as of this encounter
--- OUTSIDE RECORDS SUMMARY | 2024-03-27 15:01 | XMS_ITS | Encounter Summary ---
Author Organization [place] [address] Care Team Providers Care Underbaster Name Role Phone Mann Irene MD Primary Care Provider [phone] Reason for Visit * Reason Comments Medication Refill Encounter Details Date Type Department Care Team (Late st Contact Info) Description 07/22/2021 Refill [facility] [place] [address] [address] Mann [place] [address] Medication Refill Social History Tobacco Use [...] Exposure Response Date Recorded In the last month, have you been in contact with someone who was confirmed or suspected to have Coronavirus / COVID-19? No / Unsure 07/16/2021 11:23 AM EST documented as of this encounter [...] TABLET BY MOUTH EVERY DAY 90 Tablet 07/22/2021 10/21/2021 documented in this encounter Plan of Treatment Upcoming Encounters Date Type Department Care Team (Late st Contact Info) Description 05/16/2024 9:30 AM EST Office Visit [facility] [address] [place] [address] Gilda Francis PA [address] [place] [address] documented as of this encounter Visit Diagnoses Diagnosis Hypercholesterolemia Pure hypercholesterolemia documented in this encounter Discontinued Medications Medication Sig Discontinue Reason Start Date End Da te atorvastatin (LIPITOR) 10 mg Oral TabletIndications:Hyperc holesterolemia Take 1 Tablet by mouth daily. 03/18/2021 07/22/2021 documented as of this encounter Additional Health Concerns Infection Onset Date Last Indicated Resolved Time ESBL organism 11/16/2019 11/16/2019 03/28/2022 1:0 5 PM EST Assessment Noted Time A fall risk assessment has been complete d for the patient 02/05/2021 7:27 AM EDT documented as of this encounter Care Teams Underbaster Relationship Specialty Start Date End Date Mann Irene MD [address] [place] [address] PCP - General Internal Medicine 08/23/12 07/13/22 documented as of this encounter
--- OUTSIDE RECORDS SUMMARY | 2024-03-27 15:01 | XMS_ITS | Encounter Summary ---
Author Organization [place] [address] Care Team Providers Care Access Manager Name Role Phone Mann Irene MD Primary Care Provider [phone] Reason for Referral * Vascular Imaging (Routine) - Closed Specialty Diagnoses / Procedures Referred By Contac t Referred To Contact Radiology Diagnoses Claudication (HCC) Procedures [facility] LOWER EXTREMITY ARTERIAL PHYSIOLOGICAL FL NON-INVASIVE PHYSIOLOGIC STUDY EXTREMITY 3 LEVELS Mann [place] [address] [place] [address] Phone: tel: fax: Referral ID Status Reason Start Date Expiration Date Visits Re quested Visits Authorized [id number] Closed 10/31/2021 09/25/2023 1 1 Reason for Visit * Vascular Imaging (Routine) - Closed Specialty Diagnoses / Procedures Referred By Contac t Referred To Contact Radiology Diagnoses Claudication (HCC) Procedures [facility] LOWER EXTREMITY ARTERIAL PHYSIOLOGICAL FL NON-INVASIVE PHYSIOLOGIC STUDY EXTREMITY 3 LEVELS Mann Irene MD [address] [facility] [address] Phone: tel: fax: Referral ID Status Reason Start Date Expiration Date Visits Re quested Visits Authorized [id number] Closed 10/31/2021 09/25/2023 1 1 Encounter Details Date Type Department Care Team (Latest Contact Info) Description 10/31/2021 11:35 AM EDT - 10/31/2021 11:59 PM EDT Hospital Encounter [facility] [address] [place] [address] Mann Irene MD [address] [place] [address] Claudication (HCC) Discharge Disposition: Home or Self Care Social [...] suspected to have Coronavirus/COVID-19? No / Unsure 10/31/2021 11:34 AM EDT documented as of this encounter [...] MOUTH EVERY DAY 90 Tablet 10/21/2021 07/18/2022 diclofenac (VOLTAREN) 75 mg Oral Tablet, Delayed [...] Progress Notes * Mann Irene MD - 10/31/2021 12:15 PM EDT Normal circulation to lower extremities. documented in this encounter Plan of Treatment Upcoming Encounters Date Type Department Care Team (Late st Contact Info) Description 05/16/2024 9:30 AM EST Office Visit [facility] [address] [place] [address] Gilda Francis PA [address] [facility] [address] documented as of this encounter Procedures Procedure Name Priority Date/Time Associated Diagnosis Comments [facility] LOWER EXTREMITY ARTERIAL PHYSIOLOGICAL Routine 10/31/2021 12:30 PM EDT Claudication (HCC) documented in this encounter Results * [facility] LOWER EXTREMITY ARTERIAL PHYSIOLOGICAL (10/31/2021 12:30 PM EDT) Anatomical Region Laterality Modality Vascular, Leg Electrocardiogra phy 10/31/2021 11:5 8 AM EDT Impressions 10/31/2021 3:42 PM EDT Conclusions ??* No evidence of arterial insufficiency is noted in the bilateral lower extremities. ??* Doppler waveforms, PVR's, and pressures are all within normal limits. ??* Digit PPG waveforms are normal and pressures are above healing index. Narrative Procedure Note Conor Diaz, - 10/31/2021 IMPRESSION Conclusions * No evidence of arterial insufficiency is noted in the bilaterallower extremities. * Doppler waveforms, PVR's, and pressures are all within normallimits. * Digit PPG waveforms are normal and pressures are above healingindex. Result [facility] Mann Irene MD IMG VASCULAR ORDERABLES Final Result documented in this encounter Visit Diagnoses Diagnosis Claudication (HCC) Peripheral vascular disease, unspecified documented in this encounter Additional Health Concerns Infection Onset Date Last Indicated Resolved Time ESBL organism 11/16/2019 11/16/2019 03/28/2022 1:0 5 PM EST Assessment Noted Time A fall risk assessment has been complete d for the patient 02/05/2021 7:27 AM EDT documented as of this encounter Care Teams Access Manager Relationship Specialty Start Date End Date Mann Irene MD [address] [place], [place] [phone] PCP - General Internal Medicine 08/23/12 07/13/22 documented as of this encounter
--- OUTSIDE RECORDS SUMMARY | 2024-03-27 15:01 | XMS_ITS | Encounter Summary ---
Author Organization [place] [address] Care Team Providers Care Assembly Manager Name Role Phone Mann Irene MD Primary Care Provider [phone] Reason for Visit * Reason Onset Date Comments Paperwork/forms 10/30/2021 Handicap form Encounter Details Date Type Department Care Team (Late st Contact Info) Description 10/30/2021 [address] 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 Going to get her drivers license today documented in this encounter Plan of Treatment Upcoming Encounters Date Type Department Care Team (Late st Contact Info) Description 05/16/2024 9:30 AM EST Office Visit [facility] [address] [place] [phone] Gilda Francis PA [address] [place] [address] documented as of this encounter Visit Diagnoses Not on filedocumented in this encounter Additional Health Concerns Infection Onset Date Last Indicated Resolved Time ESBL organism 11/16/2019 11/16/2019 03/28/2022 1:0 5 PM EST Assessment Noted Time A fall risk assessment has been complete d for the patient 02/05/2021 7:27 AM EDT documented as of this encounter Care Teams Assembly Manager Relationship Specialty Start Date End Date Mann Irene MD [address] [place] [phone] PCP - General Internal Medicine 08/23/12 07/13/22 documented as of this encounter
--- OUTSIDE RECORDS SUMMARY | 2024-03-27 15:01 | XMS_ITS | Encounter Summary ---
Author Organization [place] [address] Care Team Providers Care College Basketball Coach Name Role Phone Mann Irene MD Primary Care Provider [phone] Reason for Visit * Reason Comments Medication Refill Encounter Details Date Type Department Care Team (Late st Contact Info) Description 02/08/2021 Refill [facility] [place] [address] [address] [place] [address] [place] [address] Medication Refill Social History Tobacco Use [...] have Coronavirus / COVID-19? No / Unsure 02/05/2021 8:59 AM EDT documented as of this encounter [...] EVERY DAY NOT COVERED 30 Tablet 2 02/08/2021 09/05/2021 documented in this encounter Plan of Treatment Upcoming Encounters Date Type Department Care Team (Late st Contact Info) Description 05/16/2024 9:30 AM EST Office Visit [facility] [address] [place] [address] Gilda Francis PA [address] [place] [address] documented as of this encounter Visit Diagnoses Diagnosis Seasonal allergic rhinitis due to pollen documented in this encounter Discontinued Medications Medication Sig Discontinue Reason Start Date End Da te loratadine-pseudoephedri ne (LORATADINE-PSEUDOEPHEDR INE) 10-240 mg Oral Tablet Sustained Release 24 hrIndications:Seasonal allergic rhinitis due to pollen Take 1 Tablet by mouth daily. 02/05/2021 02/08/2021 documented as of this encounter Additional Health Concerns Infection Onset Date Last Indicated Resolved Time ESBL organism 11/16/2019 11/16/2019 03/28/2022 1:0 5 PM EST Assessment Noted Time A fall risk assessment has been complete d for the patient 02/05/2021 7:27 AM EDT documented as of this encounter Care Teams College Basketball Coach Relationship Specialty Start Date End Date Mann Irene MD [address] [place], [place] [address] PCP - General Internal Medicine 08/23/12 07/13/22 documented as of this encounter
--- OUTSIDE RECORDS SUMMARY | 2024-03-27 15:01 | XMS_ITS | Encounter Summary ---
Author Organization [place] [address] Care Team Providers Care Corporate Accountant Name Role Phone Mann Irene MD Primary Care Provider [phone] Reason for Visit * Reason Onset Date Comments Follow-up 02/14/2022 heart monitor Encounter Details Date Type Department Care Team (Late st Contact Info) Description 02/14/2022 Telephone [facility] [place] [facility] [place] [address] Mann Irene MD [employer] [facility] [place] [address] Follow-up (heart monitor ) Social History Tobacco Use Types Packs/Day [...] Assessment Author No 09/24/2021 7:49 AM EDT Grooms, M ichelle, CCMA * Is the person blind or does he/she have serious difficulty seeing even when wearing glasses? Answer Date of Assessment Author No 09/24/2021 7:49 AM EDT Tomi Slaughter CLAUDIA * Does this person have serious difficulty walking or climbing stairs? Answer Date of Assessment Author No 09/24/2021 7:49 AM EDT Tomi Slaughter CLAUDIA * Does this person have difficulty dressing or bathing? Answer Date of Assessment Author No 09/24/2021 7:49 AM EDT Tomi Slaughter CLAUDIA * Because of a physical, mental or emotional condition, does this person have difficulty doing errands alone such as visiting a doctor's office or shopping? Answer Date of Assessment Author No 09/24/2021 7:49 AM EDT Tomi Slaughter CLAUDIA documented as of this encounter Mental Status * Because of a physical, mental or emotional condition, does this person have serious difficulty concentrating, remembering or making decisions? Answer Entry Date Author No 09/24/2021 7:49 AM EDT Sukhjinder Tomi knutson CLAUDIA documented in this encounter Miscellaneous Notes * Telephone Encounter - Rahul Schilling MA - 02/14/2022 1:22 PM EDT Spoke with pt, gave her number to central scheduling for heart monitor * Telephone Encounter - Ira Stubbs - 02/14/2022 1:18 PM EDT pt is calling in regards to getting fitted for a heart monitor. she was told that they'd call in a couple of days and she says that it's been a couple of weeks. she is wanting to know if she should continue to wait for their call or if she is needing to call them. please advise and call back documented in this encounter Plan of Treatment Upcoming Encounters Date Type Department Care Team (Late st Contact Info) Description 05/16/2024 9:30 AM EST Office Visit [facility] [address] [place] [address] Gilda Francis PA [address] [place] [address] documented as of this encounter Visit Diagnoses Not on filedocumented in this encounter Additional Health Concerns Infection Onset Date Last Indicated Resolved Time ESBL organism 11/16/2019 11/16/2019 03/28/2022 1:0 5 PM EST Assessment Noted Time A fall risk assessment has been complete d for the patient 02/05/2021 7:27 AM EDT documented as of this encounter Care Teams Corporate Accountant Relationship Specialty Start Date End Date Mann Irene MD [address] [place] [phone] PCP - General Internal Medicine 08/23/12 07/13/22 documented as of this encounter
--- OUTSIDE RECORDS SUMMARY | 2024-03-27 15:01 | XMS_ITS | Encounter Summary ---
Author Organization [facility] [place] [address] Care Team Providers Care Neck Cutter Name Role Phone Mann Irene MD Primary Care Provider [phone] Encounter Details Date Type Department Care Team (Latest Contact Info) Description 10/31/2021 Travel Social History Tobacco Use Types Packs/Day [...] EST Office Visit [facility] [address] [place] [address] Gilda Francis PA [address] [place] [address] documented as of this encounter Visit Diagnoses Not on filedocumented in this encounter Additional Health Concerns Infection Onset Date Last Indicated Resolved Time ESBL organism 11/16/2019 11/16/2019 03/28/2022 1:0 5 PM EST Assessment Noted Time A fall risk assessment has been complete d for the patient 02/05/2021 7:27 AM EDT documented as of this encounter Care Teams Neck Cutter Relationship Specialty Start Date End Date Mann Irene MD [address] [place] [address] PCP - General Internal Medicine 08/23/12 07/13/22 documented as of this encounter
--- OUTSIDE RECORDS SUMMARY | 2024-03-27 15:01 | XMS_ITS | Encounter Summary ---
Author Organization [place] [address] Care Team Providers Care Labor Law Professor Name Role Phone Mann Irene MD Primary Care Provider [phone] Encounter Details Date Type Department Care Team (Late st Contact Info) Description 09/17/2021 Orders Only [facility] [address] [place] [address] Carl Irene MD [address] [place] [address] [place] [address] Diarrhea, unspecified type (Primary Dx) Social History Tobacco Use Types [...] of Assessment Author No 02/05/2021 7:28 AM EDT Tomi Slaughter CCMA * Is the person blind or does he/she have serious difficulty seeing even when wearing glasses? Answer Date of Assessment Author No 02/05/2021 7:28 AM EDT Tomi Slaughter CCMA * Does this person have serious difficulty walking or climbing stairs? Answer Date of Assessment Author No 02/05/2021 7:28 AM EDT Tomi Slaughter CCMA * Does this person have difficulty dressing or bathing? Answer Date of Assessment Author No 02/05/2021 7:28 AM EDT Tomi Slaughter CCMA * Because of a physical, mental or emotional condition, does this person have difficulty doing errands alone such as visiting a doctor's office or shopping? Answer Date of Assessment Author No 02/05/2021 7:28 AM EDT Tomi Slaughter CCMA documented as of this encounter Mental Status * Because of a physical, mental or emotional condition, does this person have serious difficulty concentrating, remembering or making decisions? Answer Entry Date Author No 02/05/2021 7:28 AM EDTomi José CCMA documented in this encounter Ordered Prescriptions Prescription Sig Dispense Quantity Refills Last Filled Start Date End Date loperamide (IMODIUM) 2 mg Oral CapsuleIndications :Diarrhea, unspecified type Take 1 Capsule by mouth 4 times daily as needed for Diarrhea. 40 Capsule 09/17/2021 3 documented in this encounter Plan of Treatment Upcoming Encounters Date Type Department Care Team (Late st Contact Info) Description 05/16/2024 9:30 AM EST Office Visit [facility] [address] [place] [address] Gilda Francis PA [address] [place] [address] documented as of this encounter Visit Diagnoses Diagnosis Diarrhea, unspecified type- Primary documented in this encounter Additional Health Concerns Infection Onset Date Last Indicated Resolved Time ESBL organism 11/16/2019 11/16/2019 03/28/2022 1:0 5 PM EST Assessment Noted Time A fall risk assessment has been complete d for the patient 02/05/2021 7:27 AM EDT documented as of this encounter Care Teams Labor Law Professor Relationship Specialty Start Date End Date Mann Irene MD [address] [place] [id number] PCP - General Internal Medicine 08/23/12 07/13/22 documented as of this encounter
--- OUTSIDE RECORDS SUMMARY | 2024-03-27 15:01 | XMS_ITS | Encounter Summary ---
Author [place] [address] Care Team Providers Care Demo Coordinator Name Role Phone Mann Irene MD Primary Care Provider [phone] Reason for Referral * Consultation (Routine) - Closed Specialty Diagnoses / Procedures Referred By Ramona mcdaniel Referred To Contact Gastroenterology Diagnoses Dysphagia, unspecified type [place] [address] [place] [address] Phone: tel: fax: [facility] [place] [facility] [address] [address] Phone: tel: Referral ID Status Reason Start Date Expiration Date Visits Re quested Visits Authorized [id number] Closed 09/24/2021 09/24/2022 99 99 Question Answer Is this referral for colon cancer screening? No Provider Options First Available * Vascular Imaging (Routine) - Closed Specialty Diagnoses / Procedures Referred By Ramona mcdaniel Referred To Contact Radiology Diagnoses Claudication (HCC) Procedures VA US LOWER EXTREMITY ARTERIAL PHYSIOLOGICAL WV NON-INVASIVE PHYSIOLOGIC STUDY EXTREMITY 3 LEVELS Mann [place] [address] [address] [place] [address] Phone: tel: fax: Referral ID Status Reason Start Date Expiration Date Visits Re quested Visits Authorized [id number] Closed 10/31/2021 09/25/2023 1 1 * Vascular Imaging (Routine) - Closed Specialty Diagnoses / Procedures Referred By Contac t Referred To Contact Radiology Diagnoses PVD (peripheral vascular disease) (HCC) Bruit Procedures VA US CAROTID DUPLEX BILATERAL WV DUPLEX SCAN EXTRACRANIAL,BILAT Mann [place] [address] [place] [address] Phone: tel: fax: Referral ID Status Reason Start Date Expiration Date Visits Re quested Visits Authorized [id number] Closed 10/31/2021 09/25/2023 1 1 Reason for Visit * Reason Comments Medicare Annual Wellness medicare Encounter Details Date Type Department Care Team (Latest Contact Info) Description 09/24/2021 8:20 AM EDT Office Visit [facility] [address] [place] [address] Mann Irene MD [address] [place] [address] Hypercholesterolemia (Primary Dx); Claudication (HCC); Osteoarthritis, unspecified osteoarthritis type, unspecified site; Dysphagia, unspecified type; PVD (peripheral vascular disease) (HCC); Bruit; Chronic fatigue; Vitamin D deficiency; Acute bacterial sinusitis Social History Tobacco Use Types Packs/Day Years [...] Sign Reading Time Taken Comments Blood Pressure 130/80 09/24/2021 8:08 AM EDT Pulse 78 09/24/2021 8:08 AM EDT Temperature 36.7 ??C (98 ??F) 09/24/2021 8:08 AM EDT Respiratory Rate 18 09/24/2021 8:08 AM EDT Oxygen Saturation 95% 09/24/2021 8:08 AM EDT Inhaled Oxygen Concentration - - Weight 79.4 kg (175 lb) 09/24/2021 8:08 AM EDT Height 154.9 cm (5' 1 ) 09/24/2021 8:08 AM EDT Body Mass Index 33.07 09/24/2021 8:08 AM EDT documented in this encounter Functional [...] Progress Notes * Mann Irene MD - 09/24/2021 8:20 AM EDT Assessment Diagnoses and all orders for this visit: Hypercholesterolemia - LIPID SCREEN; Future - CBC WITH DIFF; Future Claudication (HCC) (Chronic) - LIPID SCREEN; Future - COMPREHENSIVE METABOLIC PANEL; Future - CBC WITH DIFF; Future - VT US LOWER EXTREMITY ARTERIAL PHYSIOLOGICAL; Future Osteoarthritis, unspecified osteoarthritis type, unspecified site - CBC WITH DIFF; Future Dysphagia, unspecified type - AMB REFERRAL TO GASTROENTEROLOGY PVD (peripheral vascular disease) (HCC) (Chronic) - VT US CAROTID DUPLEX BILATERAL; Future Bruit - [facility] CAROTID DUPLEX BILATERAL; Future Progress Note: Vitals: 09/24/21 0808 BP: 130/80 Pulse: 78 Resp: 18 Temp: 98 ??F (36.7 ??C) SpO2: 95% Weight: 175 lb (79.4 kg) Height: 5' 1 (1.549 m) SUBJECTIVE: Chief Complaint Patient presents with ??? Medicare Annual Wellness medicare HPI: Medicare Wellness Assessment Flowsheet Version: Body mass index is 33.07 kg/m??. Ms. Hylton 76 y.o. female Subsequent Annual Medicare Wellness Assessment. As part of today's visit the components of the Medicare wellness assessment were completed. These components included reviewing the information available in the risk screening questionnaire that was administered by ancillary staff either today or prior to today's visit (pre-visit planning) and recorded in the Medicare Wellness Assessment Flowsheet in the EMR. I have reviewed the data in regards to fall risk, activities of daily living/functional status, depression screening, dementia screening,and outstanding Health Maintenance topics and edited where necessary. The staff has reviewed and updated the past medical history, social history, family history, allergies, medications, and care team information during the standard rooming process. I have also reviewed this data as part of today'svisit. Below are the findings, recommendations, and Personal Plan of Care. The patient received a copy of their Personal Plan of Care including health maintenance topics thatare recommended to be completed and this can be noted in the after visit summary. The AVS is provided to the patient digitally through their [employer] account or with a paper copy if the patient doesn't have an active [employer] Account. A copy of today's progress note with recommendations below is alsoavailable electronically for patients with an active [employer] account per the Federal Cures Act. TheAVS also contains additional patient education if appropriate on topics common to wellness and their plan of care. Fall Risk Assessment Has the patient had any fall with injury in the past year?: no Has the patient had 2 or more [...] stairs?: Yes Does the patient have stairs in the home?: No (In office Assessment Only): Is the patient able to ambulate without assistance/device and with a gait steady?: Yes Functional Status Assessment Functional Level: self care Functional Mobility Assessment: independent w/o assist device Assessment of transportation needs: still drives most of the time Functional Activities of Daily Living Limitations: No issues Bladder: Do you have issues with your bladder, such as urgency or leaking urine?: No issues Activities of Daily Living Assistive Device Assessment Osteoporosis Screening Assessment Has the patient had a DEXA scan in the past 2 years?: (!) No Results for orders placed during the hospital encounter of 02/10/19 DX BONE DENSITY AXIAL SKELETON Narrative Indication: The patient is a female age 65 or older who requires a bone density assessment. Study was performed on Proficiency 5. Bone Density: Region BMD T-score Z-score [...] of interest. Reported by: Chula Smith PA-C, [facility] on 02/10/2019 12:48:00 PM. Abnormal Pains Assessment Excluding what you would consider normal aches and pains for your age and medical condition, do youhave any unusual or worrisome pains?: No PHQ Depression Screening Results Little interest or pleasure in doing things: Not at all Feeling down, depressed, or hopeless: Not at all PHQ-2 Total Score: 0 PHQ-9 Total Score: 0 Advanced Directive Evaluation Does the patient have an Advance Directive?: (!) No Advance Care Planning Guide Given?: (!) No (For Dementia Screening below can use either AD-8 or Mini Cog. Doesn't require both.) AD-8 Dementia Screening tool results Problems with judgement: No, no change Less interest in hobbies/activities: No, no change Repeats the same things over and over: No, no change Trouble learning how to use a tool, appliance or gadget: No, no change Forgets correct month or year: No, no change Trouble handling complicated financial affairs: No, no change Trouble remembering appointments: No, no change Daily problems with thinking and/or memory: No, no change Total AD8 score:: 0 Mini Cog Dementia Screening tool results Number of words immediately repeated back correctly.: 3 Clock Test: Please draw a clock face and draw in hands to show 10 minutes past eleven o'clock.: 1; 1 Number of Words Recalled: 3 Dementia: Negative No exam data present No results found for this visit on 09/24/21. Patient Active Problem List Diagnosis ??? Hypercholesterolemia ??? OA (osteoarthritis)-s/p RIGHT TOTAL HIP REPLACEMENT 02/16/14. ??? Hip joint replacement by other means ??? Hematuria ??? Nephrolithiasis Past Medical History: Diagnosis Date ??? Allergy [...] INTRAOCULAR LENS; Surgeon: Conor Ramirez MD; Location: [facility]; Service: Ophthalmology ??? CATARACT REMOVAL Left 03/14/2019 LEFT EYE CATARACT EXTRACTION WITH PHACOEMULSIFICATION AND INTRAOCULAR LENS; Surgeon: Conor Ramirez MD; Location: [facility]; Service: Ophthalmology ??? COLONOSCOPY ??? CYSTOSCOPY Right 11/28/2019 cystoscopy right stent placement, right extracorporeal shock wave lithotripsy; Surgeon: Dinh Wheeler MD; Location: [facility] MAIN OR; Service: Urology ??? HEMORRHOID SURGERY ??? HIP ARTHROPLASTY Right 02/16/2014 RIGHT TOTAL HIP REPLACEMENT; Surgeon: Bruce Oh MD; Location: [facility] MAIN OR; Service: Orthopedics ??? HYSTERECTOMY complete ??? LITHOTRIPSY Right 11/28/2019 Surgeon: Amari Wheeler MD; Location: [facility] MAIN OR; Service: Urology ??? LUMBAR DISC SURGERY 11/03/2012 Surgeon: Elza Bautista MD; Location: [facility] MAIN OR; Service: ??? TOTAL KNEE ARTHROPLASTY Left 12/28/2018 left knee total replacement; Surgeon: Bruce Oh MD; Location: [facility] MAIN OR; Service: Orthopedics ??? URETEROSCOPY Right 01/02/2020 cystoscopy, Right Flexible Ureteroscopy, Retrograde, Stent Exchange, Laser Lithotripsy, Basket Retrieval of stone fragments; Surgeon: Amari Wheeler MD; Location: [facility] MAIN OR; Service: Urology Allergies Allergen Reactions ??? Celecoxib Rash Current Outpatient Medications on File Prior to Visit Medication Sig Dispense Refill ??? aspirin 81 mg Oral Tablet, Delayed Release (E.C.) Take 1 Tab by mouth every morning. ??? atorvastatin (LIPITOR) 10 mg Oral Tablet TAKE 1 TABLET BY MOUTH EVERY DAY 90 Tablet 0 ??? diclofenac (VOLTAREN) 75 mg Oral Tablet, Delayed Release (E.C.) TAKE 1 TABLET BY MOUTH 2 TIMES DAILY FOR 180 DAYS. WITH MEALS 180 Tablet 1 ??? ergocalciferol (DRISDOL) 1,250 mcg (50,000 unit) Oral Capsule TAKE 1 CAPSULE BY MOUTH ONE TIME PER WEEK 12 Cap 3 ??? ipratropium (ATROVENT) 21 mcg (0.03 %) Nasl [place], Non-Aerosol 2 Sprays by Nasal route 3 times daily. 30 mL 2 ??? loperamide (IMODIUM) 2 mg Oral Capsule Take 1 Capsule by mouth 4 times daily as needed for Diarrhea. 40 Capsule 0 ??? loratadine-pseudoephedrine (ALLERGY RELIEF D-24HR) 10-240 mg Oral Tablet Sustained Release 24 hr TAKE 1 TABLET BY MOUTH EVERY DAY NOT COVERED 30 Tablet 2 No current facility-administered medications on file prior to visit. Social History Socioeconomic History ??? Marital status: Spouse name: None ??? Number of children: None ??? Years of education: None ??? Highest education level: None Tobacco Use ??? Smoking status: Former Smoker Packs/day: 0.50 Years: 5.00 Pack years: 2.50 Types: Cigarettes Quit date: 1994 Years since quittin.3 ??? Smokeless tobacco: Never Used ??? Tobacco comment: quit in 1998 Vaping Use ??? Vaping Use: Never used Substance and Sexual Activity ??? Alcohol use: No ??? Drug use: No Family History Problem Relation Age of Onset ??? Early Father accident ??? Early Sister ??? Substance Abuse Sister ??? Early Brother accident ??? Early Mother accident ??? Anesth Problems Neg Hx Immunization History Administered Date(s) Administered ??? Influenza High Dose 02/21/2015, 02/21/2019, 01/28/2020 ??? Influenza Vaccine, Unspecified Formulation 02/04/2014, 02/09/2016 ??? Moderna SARS-CoV-2 Vaccine 07/03/2020, 07/31/2020 ??? PPD Test 02/20/2014 ??? Pneumococcal Conjugate Vaccine 13 Valent 02/28/2015 ??? Pneumococcal Polysaccharide 23 Valent 10/13/2012 ??? Quadrivalent Influenza High Dose 02/05/2021 ??? Tdap 02/28/2015 Health Maintenance Topic Date Due ??? Zoster (1 of 2) Never done ??? COVID-19 Vaccine (3 - Booster for Moderna series) 12/31/2020 ??? Wellness Exam Medicare 02/05/2022 ??? Fall Risk Assessment 09/24/2022 ??? Breast Cancer Screening 07/17/2023 ??? Colon Cancer Screening 07/10/2024 ??? DTaP/TDaP/Td (2 - Td or Tdap) 02/28/2025 ??? Influenza Vaccine Completed ??? Bone Density Screening Completed ??? Hepatitis C Screening Completed ??? Pneumococcal Vaccine 65+ Completed Patient Care Team: Mann Irene MD as PCP - General (Internal Medicine) Patient Instructions AWV findings and Plan of Care: Good preventative health care is important in reducing morbidity and mortality. I recommend exercise regularly as tolerated focusing on strength and balance. I recommend a balanced diet focusing on fruits, veggies, and lean meats. I recommend avoiding having rugs, runners, or other loose trip hazards in the home as these increase fall risk. I recommend installing grab bars in the bathrooms close to toilets, in tubs, and in showers as these are common areas for falls when transitioning from wet surfaces to dry surfaces, or visa versa. This is also an area of the home that is high risk for falls at night. I encourage having an Advanced Directives. This is something the patient should have on file, as well as something that we should have on file in our records. If we don't have a copy of your current Advanced Directive, please bring a copy to your next visit. If you have a power of corporate associate attorney or surrogate, we should also have a copy on file. I encourage candid discussion with your family on your wish es in the event that you are incapacitated and unable to participate in direct medical decision making. It is important to stay up to date on recommended vaccinations including Flu, Pneumonia, and Shingles vaccine. Below are other health maintenance topics that are recommended to be closed at your earliest opportunity. You may notice that some of these were addressed in the office today. Health Maintenance Due Topic Date Due ??? Zoster (1 of 2) Never done ??? COVID-19 Vaccine (3 - Booster for Moderna series) 12/31/2020 In addition to recommendations to close care gaps noted above additional recommendations as part ofthe Personal Plan of Care are: Fall Risk Assessment Negative - Recommend re-assess 1 year. Functional Status/Social Determinants of Health - Stable, no issues, re-assess 1 year. Depression Screening Negative - Recommend re-assess 1 year. Dementia Screening Negative - Recommend re-assess 1 year. Activity/Exercise - recommend continuing current Additional issues addressed today: Review of Systems Constitutional: Negative. Negative for activity change, fatigue, fever and unexpected weight change. HENT: Negative. Negative for trouble swallowing. Eyes: Negative. Negative for photophobia, pain, discharge, itching and visual disturbance. Respiratory: Negative. Negative for cough, chest tightness, shortness of breath and wheezing. Cardiovascular: Negative. Negative for chest pain, palpitations and leg swelling. Gastrointestinal: Negative. Negative for abdominal distention, abdominal pain, blood in stool, constipation and diarrhea. Musculoskeletal: Negative. Negative for arthralgias, back pain, gait problem, joint swelling, myalgias, neck pain and neck stiffness. Skin: Negative. Negative for color change, pallor, rash and wound. Neurological: Negative. Negative for dizziness and headaches. Hematological: Negative for adenopathy. Psychiatric/Behavioral: Negative. Negative for confusion, sleep disturbance and suicidal ideas. Thepatient is not nervous/anxious. OBJECTIVE: Physical Exam Vitals reviewed. Constitutional: General: She is not in acute distress. Appearance: She is well-developed. She is not diaphoretic. HENT: Head: Normocephalic and atraumatic. Right Ear: External ear normal. Left Ear: External ear normal. Mouth/Throat: Pharynx: No oropharyngeal exudate. Eyes: General: No scleral icterus. Right eye: No discharge. Left eye: No discharge. Conjunctiva/sclera: Conjunctivae normal. Pupils: Pupils are equal, round, and reactive to light. Neck: Thyroid: No thyromegaly. Vascular: Carotid bruit present. Cardiovascular: Rate and Rhythm: Normal rate and regular rhythm. Heart sounds: Normal heart sounds. No murmur heard. No gallop. Pulmonary: Effort: Pulmonary effort is normal. No respiratory distress. Breath sounds: Normal breath sounds. No wheezing or rales. Chest: Chest wall: No tenderness. Abdominal: General: Bowel sounds are normal. Palpations: Abdomen is soft. There is no mass. Tenderness: There is no abdominal tenderness. There is no guarding or rebound. Musculoskeletal: General: No tenderness. Normal range of motion. Cervical back: Normal range of motion and neck supple. Lymphadenopathy: Cervical: No cervical adenopathy. Skin: General: Skin is warm and dry. Neurological: Mental Status: She is alert and oriented to person, place, and time. * Jill Beck - 09/24/2021 8:20 AM EDT Venipuncture in the right antecubital vein with 21 gauge needle, length 1 1/2 inch. * Mann Irene MD - 09/24/2021 8:20 AM EDT Low vitamin D - should be on replacement 2,000 units daily. Other labs all good/normal. No other new changes or recommendations. documented in this encounter Plan of Treatment Upcoming Encounters Date Type Department Care Team (Late st Contact Info) Description 05/16/2024 9:30 AM EST Office Visit [facility] [address] [place] [address] Gilda Francis PA [address] [place] [address] Scheduled Referrals Name Type Priority Associated Diagnoses Order Schedule AMB REFERRAL TO GASTROENTEROLOGY Outpatient Referral Routine Dysphagia, unspecified type Ordered: 09/24/2021 documented as of this encounter Procedures Procedure Name Priority Date/Time Associated Diagnosis Comments VITAMIN B12/ FOLIC ACID Routine 09/24/2021 8:48 AM EDT Chronic fatigue TSH REFLEX Routine 09/24/2021 8:48 AM EDT Chronic fatigue VITAMIN D 25 HYDROXY Routine 09/24/2021 8:48 AM EDT Chronic fatigue Vitamin D deficiency CBC WITH DIFF Routine 09/24/2021 8:48 AM EDT Claudication (HCC) Hypercholesterolemia Osteoarthritis, unspecified osteoarthritis type, unspecified site LIPID SCREEN Routine 09/24/2021 8:48 AM EDT Claudication (HCC) Hypercholesterolemia COMPREHENSIVE METABOLIC PANEL Routine 09/24/2021 8:48 AM EDT Claudication (HCC) documented in this encounter Results * VT US CAROTID DUPLEX BILATERAL (10/31/2021 1:00 PM EDT) Anatomical Region Laterality Modality Vascular, Head, Neck Electrocard iography 10/31/2021 12:2 0 PM EDT Impressions 10/31/2021 3:43 PM EDT Conclusions ??* The right internal carotid artery demonstrates high end 1-39% stenosis. ??* The left internal carotid artery demonstrates 1-39% mild stenosis. ??* The bilateral vertebral arteries are patent with antegrade flow. ??* There are 2 cystic structures noted in the right thyroid measuring 0.41 x 0.47 cm and 0.32 x 0.62 cm. ??* There is a cystic structure noted in the left thyroid measuring 0.61 x 0.70 cm. Narrative Procedure Note Conor Diaz, DO - 10/31/2021 IMPRESSION Conclusions * The right internal carotid artery demonstrates high end 1-39%stenosis. * The left internal carotid artery demonstrates 1-39% mild stenosis. * The bilateral vertebral arteries are patent with antegrade flow. * There are 2 cystic structures noted in the right thyroid measuring0.41 x 0.47 cm and 0.32 x 0.62 cm. * There is a cystic structure noted in the left thyroid measuring 0.61x 0.70 cm. Result [facility] Mann Irene MD [facility] VASCULAR ORDERABLES Final Result * VT US LOWER EXTREMITY ARTERIAL PHYSIOLOGICAL (10/31/2021 12:30 PM [...] Narrative Procedure Note Conor Diaz, DO - 10/31/2021 IMPRESSION Conclusions * No evidence [...] - 1,245 pg/mL 09/24/2021 4:50 PM EDT [facility], [facility] Folate 11.50 >=4.80 ng/mL 09/24/2021 4:50 PM EDT [facility] Blood VENOUS BLOOD / Unknown Venipuncture / Unknown 09/24/2021 8:48 AM EDT 09/24/2021 8:48 AM EDT Narrative [facility] - 09/24/2021 4:50 PM EDT Ingestion of lakshmi doses of biotin (>5 mg/day) taken within 8 hours of drawing blood sample can interfere with this immunoassay test. Mann Irene MD CHEMISTRY ORDERABLES Final Res ult Performing Organization Address [facility] Phone Number [facility] [address] , [place] [address] * (ABNORMAL) VITAMIN D 25 HYDROXY (09/24/2021 8:48 AM EDT) Vit D 25 OH 21.9(L) 30.0 - 150.0 ng/mL 09/24/2021 4:50 PM EDT [facility] [employer], [facility] Comment: Preferred: >= 30 ng/mL Insufficient: 21-29 ng/mL Deficient <= 20 ??ng/mL Possible Toxicity: >150 ng/mL Samples should not be taken from patients receiving therapy with high biotin doses (i.e. > 5 mg/day) until at least 8 hours following the last biotin administration. Blood VENOUS BLOOD / Unknown Venipuncture / Unknown 09/24/2021 8:48 AM EDT 09/24/2021 8:48 AM EDT Mann Irene MD CHEMISTRY ORDERABLES Final Res ult Performing Organization Address [facility] de Phone Number [facility] [address] , [place] [phone] * TSH REFLEX (09/24/2021 8:48 AM EDT) TSH Reflex 1.050 0.270 - 4.200 mcIU/mL 09/24/2021 4:59 PM EDT [facility], [facility] Blood VENOUS BLOOD / Unknown Venipuncture / Unknown 09/24/2021 8:48 AM EDT 09/24/2021 8:48 AM EDT Narrative [facility], [facility] - 09/24/2021 4:59 PM EDT Ingestion of lakshmi doses of biotin (>5 mg/day) taken within 8 hours of drawing blood sample can interfere with this immunoassay test. us Mann Irene MD CHEMISTRY ORDERABLES Final Res ult [facility], [facility] [address] , [place] [address] * (ABNORMAL) CBC WITH DIFF (09/24/2021 8:48 AM EDT) WBC 10.8(H) 3.7 - 10.3 x10(3)/mcL 09/24/2021 4:25 PM EDT [facility] RBC 4.96 3.90 - 5.20 x10(6)/mcL 09/24/2021 4:25 PM EDT [facility] Hgb 14.0 11.2 - 15.7 g/dL 09/24/2021 4:25 PM EDT [facility] Hct 44.5 34.0 - 45.0 % 09/24/2021 4:25 PM EDT [facility] MCV 89.7 80.0 - 100.0 fL 09/24/2021 4:25 PM EDT [facility] MCH 28.2 26.0 - 34.0 pg 09/24/2021 4:25 PM EDT [facility], [facility] MCHC 31.5 30.7 - 35.5 g/dL 09/24/2021 4:25 PM EDT [facility] RDW 13.7 <=14.9 % 09/24/2021 4:25 PM EDT [facility] Platelet 406(H) 155 - 369 x10(3)/[facility] 09/24/2021 4:25 PM EDT [facility], [facility] MPV 9.6 8.8 - 12.5 fL 09/24/2021 4:25 PM EDT [facility] Neut Percent 43.6 % 09/24/2021 4:25 PM EDT [facility] Comment:Neutrophils equals s egs plus bands Imm Gran% 0.4 % 09/24/2021 4:25 PM EDT [facility] Comment:Automated count of m etamyelocytes, myelocytes and promyelocytes. Lymph Percent 39.9 % 09/24/2021 4:25 PM EDT [facility] Gibson Percent 7.1 % 09/24/2021 4:25 PM EDT [facility], [facility] Eos Percent 8.2 % 09/24/2021 4:25 PM EDT [facility], [facility] Baso Percent 0.8 % 09/24/2021 4:25 PM EDT [facility], [facility] Neut # 4.7 1.6 - 6.1 x10(3)/[facility] 09/24/2021 4:25 PM EDT [facility], [facility] Comment:Neutrophils equals s egs plus bands IMMGRAN# 0.0 0.0 - 0.1 x10(3)/[facility] 09/24/2021 4:25 PM EDT [facility], [facility] Comment:Automated count of m etamyelocytes, myelocytes and promyelocytes. An absolute IG <0.1 is reported as 0.0. Lymph # 4.3(H) 1.2 - 3.9 x10(3)/[facility] 09/24/2021 4:25 PM EDT [facility] [facility] [place] # 0.8 0.3 - 0.9 x10(3)/[facility] 09/24/2021 4:25 PM EDT [facility] Eos# 0.9(H) 0.0 - 0.5 x10(3)/[facility] 09/24/2021 4:25 PM EDT [facility] Baso # 0.1 0.0 - 0.1 x10(3)/[facility] 09/24/2021 4:25 PM EDT [facility] Blood VENOUS BLOOD / Unknown Venipuncture / Unknown 09/24/2021 8:48 AM EDT 09/24/2021 8:48 AM EDT us Mann Irene MD HEMATOLOGY ORDERABLES Final Re sult [facility] [address] [facility], [place] [address] * (ABNORMAL) COMPREHENSIVE METABOLIC PANEL (09/24/2021 8:48 AM EDT) Sodium 146(H) 136 - 145 mmol/L 09/24/2021 4:59 PM EDT [facility] Potassium 4.2 3.5 - 5.0 mmol/L 09/24/2021 4:59 PM EDT [facility] Chloride 107 98 - 107 mmol/L 09/24/2021 4:59 PM EDT [facility] Total CO2 28 22 - 29 mmol/L 09/24/2021 4:59 PM EDT [facility] Anion Gap 11 7 - 16 mmol/L 09/24/2021 4:59 PM EDT [facility] Calcium 9.4 8.8 - 10.4 mg/dL 09/24/2021 4:59 PM EDT [facility] Glucose Lvl 66(L) 82 - 100 mg/dL 09/24/2021 4:59 PM EDT [facility] BUN 12 8 - 23 mg/dL 09/24/2021 4:59 PM EDT [facility] Creatinine 0.70 0.51 - 1.30 mg/dL 09/24/2021 4:59 PM EDT [facility] Albumin 4.3 3.2 - 4.6 gm/dL 09/24/2021 4:59 PM EDT [facility] Total Protein 7.4 6.4 - 8.3 gm/dL 09/24/2021 4:59 PM EDT [facility] Bili Total 0.3 0.1 - 1.3 mg/dL 09/24/2021 4:59 PM EDT [facility] ALT 11 <=41 U/L 09/24/2021 4:59 PM EDT [facility] AST 15 <=40 U/L 09/24/2021 4:59 PM EDT [facility] Alk Phos 102 36 - 123 U/L 09/24/2021 4:59 PM EDT [facility] eGFR (CKD-EPIcr 2020) 90 >=60 mL/min/1.7 3 m2 09/24/2021 4:59 PM EDT [facility] Comment:Estimated GFR was ca lculated using the CKD-EPIcr (2020) equation refit without race. The equation is recommended by the National Kidney Foundation - [place] [employer] of Nephrology Task Force. Blood VENOUS BLOOD / Unknown Venipuncture / Unknown 09/24/2021 8:48 AM EDT 09/24/2021 8:48 AM EDT us Mann Irene MD CHEMISTRY ORDERABLES Final Res ult [facility] [address] [facility] , [place] [address] [facility] 1 [place] [address] * LIPID SCREEN (09/24/2021 8:48 AM EDT) Cholesterol 148 <200 mg/dL 09/24/2021 4:59 PM EDT [facility] Comment: < 200 ?Desirable 200 - 239 ? Borderline High >= 240 ?High Triglyceride 109 <150 mg/dL 09/24/2021 4:59 PM EDT [facility] Comment: < 150 ? Normal 150 - 199 ?Borderline High 200 - 499 ?High ??>= 500 ? Very High HDL 40 >=40 mg/dL 09/24/2021 4:59 PM EDT [facility] Comment: ??> 60 ?Optimal 40 - 60 ?Acceptable ?? < 40 ?Low LDL Calculated 88 <100 mg/dL 09/24/2021 4:59 PM EDT [facility] Comment: < 100 ?Optimal 100 - 129 ? Near or above optimal 130 - 159 ? Borderline High 160 - 189 ? High >= 190 ?Very High Non-HDL-C Calculated 108 <=129 mg/dL 09/24/2021 4:59 PM EDT [facility] Comment: <130 ?Desirable 130-159 Above Desirable 160-189 Borderline High 190-219 High >= 220 ??Very High Fasting Specimen? Yes None 022 4:59 PM EDT [facility] Blood VENOUS BLOOD / Unknown Venipuncture / Unknown 09/24/2021 8:48 AM EDT 09/24/2021 8:48 AM EDT Mann Irene MD CHEMISTRY ORDERABLES Final Res ult Performing Organization Address [facility] Co de Phone Number [facility] [address] [facility] , [address] [place] [id number] [facility] [address] [place] [address] documented in this encounter Visit Diagnoses Diagnosis Hypercholesterolemia- Primary Pure hypercholesterolemia Claudication (HCC) Peripheral vascular disease, unspecified Osteoarthritis, unspecified osteoarthritis type, unspecified site Dysphagia, unspecified type PVD (peripheral vascular disease) (HCC) Peripheral vascular disease, unspecified Bruit Other symptoms involving cardiovascular system Chronic fatigue Other malaise and fatigue Vitamin D deficiency Unspecified vitamin D deficiency Acute bacterial sinusitis Acute sinusitis, unspecified Claudication (HCC) Peripheral vascular disease, unspecified PVD (peripheral vascular disease) (HCC) Peripheral vascular disease, unspecified Bruit Other symptoms involving cardiovascular system documented in this encounter Administered Medications Inactive Administered Medications - up to 1 most recent administrations Medication Order MAR Action Action Date Dose Rate Site betamethasone acet-betamethasone sodium phos (CELESTONE) injection 6 mg 6 mg, Intramuscular, ONCE, 1 dose, On Thu09/24/21 at 0830, Do not refrigerate, Dx: 1. Acute bacterial sinusitisIndications:Acu te bacterial sinusitis Given 09/24/2021 8:41 AM EDT 6 mg Right upper gluteus documented in this encounter Additional Health Concerns Infection Onset Date Last Indicated Resolved Time ESBL organism 11/16/2019 11/16/2019 03/28/2022 1:0 5 PM EST Assessment Noted Time A fall risk assessment has been complete d for the patient 02/05/2021 7:27 AM EDT documented as of this encounter Care Teams Demo Coordinator Relationship Specialty Start Date End Date Mann Irene MD [address] [place] [phone] PCP - General Internal Medicine 08/23/12 07/13/22 documented as of this encounter
--- OUTSIDE RECORDS SUMMARY | 2024-03-27 15:01 | XMS_ITS | Encounter Summary ---
Author Organization [place] [address] Care Team Providers Care Digital Sales Director Name Role Phone Mann Irene MD Primary Care Provider [phone] Reason for Visit * Reason Onset Date Comments Medication Refill 09/05/2021 allergy relief Encounter Details Date Type Department Care Team (Late st Contact Info) Description 09/05/2021 Telephone [facility] [place] [address] [address] Mann Irene MD [employer] [place] [address] Medication Refill (allergy relief) Social History Tobacco Use Types Packs/Day Years [...] of Assessment Author No 02/05/2021 7:28 AM EDTomi José CCMA * Does this person have difficulty dressing or bathing? Answer Date of Assessment Author No 02/05/2021 7:28 AM EDTomi José CCMA * Because of [...] Refills Last Filled Start Date End Date loratadine-pseudoe phedrine (ALLERGY RELIEF D-24HR) 10-240 mg Oral Tablet Sustained Release 24 hrIndications:Seas onal allergic rhinitis due to pollen TAKE 1 TABLET BY MOUTH EVERY DAY NOT COVERED 30 Tablet 2 09/05/2021 04/23/2022 documented in this encounter Miscellaneous Notes * Telephone Encounter - Ira Stubbs - 09/05/2021 12:42 PM EDT Medication Refill Who is requesting the refill: Patient Medication(s)Name/Dosage/Frequency: ALLERGY RELIEF D-24HR 10-240 mg Oral Tablet Sustained Release 24 hr 30 Tablet 2 02/08/2021 Sig: TAKE 1 TABLET BY MOUTH EVERY DAY NOT COVERED Sent to pharmacy as: Allergy Relief D-24hr 10 mg-240 mg tablet,extended release (loratadine-pseudoephedrine) Notes to Pharmacy: DX Code Needed ??OUT OF REFILLS. Cosign for Ordering: Accepted by Mann Irene MD on 02/08/2021 11:19 AM E-Prescribing Status: Receipt confirmed by pharmacy (02/08/2021 10:17 AM EDT) Did patient contact the pharmacy first: Yes out of refills How many days left on hand: out Future appt date w/ prescribing provider: no [facility] Additional Notes: documented in this encounter Plan of Treatment Upcoming Encounters Date Type Department Care Team (Late st Contact Info) Description 05/16/2024 9:30 AM EST Office Visit [facility] [address] [place] [address] Gilda Francis PA [address] [place] [address] documented as of this encounter Visit Diagnoses Diagnosis Seasonal allergic rhinitis due to pollen documented in this encounter Discontinued Medications Medication Sig Discontinue Reason Start Date End Da te ALLERGY RELIEF D-24HR 10-240 mg Oral Tablet Sustained Release 24 hrIndications:Seasonal allergic rhinitis due to pollen TAKE 1 TABLET BY MOUTH EVERY DAY NOT COVERED Reorder 02/08/2021 09/05/2021 documented as of this encounter Additional Health Concerns Infection Onset Date Last Indicated Resolved Time ESBL organism 11/16/2019 11/16/2019 03/28/2022 1:0 5 PM EST Assessment Noted Time A fall risk assessment has been complete d for the patient 02/05/2021 7:27 AM EDT documented as of this encounter Care Teams Digital Sales Director Relationship Specialty Start Date End Date Mann Irene MD [address] [place] [address] PCP - General Internal Medicine 08/23/12 07/13/22 documented as of this encounter
--- OUTSIDE RECORDS SUMMARY | 2024-03-27 15:01 | XMS_ITS | Encounter Summary ---
Author Organization [facility] [place] [address] Care Team Providers Care Interactive Marketing Strategist Name Role Phone Mann Irene MD Primary Care Provider [phone] Encounter Details Date Type Department Care Team (Latest Contact Info) Description 02/05/2021 Travel Social History Tobacco Use Types Packs/Day [...] Entry Date Author No 02/05/2021 7:28 AM EDT Tomi Slaughter CCMA documented in this encounter Plan of Treatment Upcoming Encounters Date Type Department Care Team (Late st Contact Info) Description 05/16/2024 9:30 AM EST Office Visit [facility] [address] [place] [address] Gilda Francis PA [address] [place] [address] documented as of this encounter Visit Diagnoses Not on filedocumented in this encounter Additional Health Concerns Infection Onset Date Last Indicated Resolved Time ESBL organism 11/16/2019 11/16/2019 03/28/2022 1:0 5 PM EST Assessment Noted Time A fall risk assessment has been complete d for the patient 02/05/2021 7:27 AM EDT documented as of this encounter Care Teams Interactive Marketing Strategist Relationship Specialty Start Date End Date Mann Irene MD [address] [place] [address] PCP - General Internal Medicine 08/23/12 07/13/22 documented as of this encounter
--- OUTSIDE RECORDS SUMMARY | 2024-03-27 15:01 | XMS_ITS | Encounter Summary ---
Author Organization [facility] [place] [address] Care Team Providers Care Tool Maintenance Worker Name Role Phone Mann Irene MD Primary Care Provider [phone] Encounter Details Date Type Department Care Team (Latest Contact Info) Description 07/16/2021 Travel Social History Tobacco Use Types Packs/Day [...] EST Office Visit [facility] [address] [place] [address] Gilda Francis PA [address] [place] [address] documented as of this encounter Visit Diagnoses Not on filedocumented in this encounter Additional Health Concerns Infection Onset Date Last Indicated Resolved Time ESBL organism 11/16/2019 11/16/2019 03/28/2022 1:0 5 PM EST Assessment Noted Time A fall risk assessment has been complete d for the patient 02/05/2021 7:27 AM EDT documented as of this encounter Care Teams Tool Maintenance Worker Relationship Specialty Start Date End Date Mann Irene MD [address] [place] [phone] PCP - General Internal Medicine 08/23/12 07/13/22 documented as of this encounter
--- OUTSIDE RECORDS SUMMARY | 2024-03-27 15:01 | XMS_ITS | Encounter Summary ---
Author Organization [place] [address] Care Team Providers Care Imcu Nurse Name Role Phone Mann Irene MD Primary Care Provider [phone] Reason for Visit * Reason Comments Dizziness Loss of Consciousness Fainted one time o n Encounter Details Date Type Department Care Team (Late st Contact Info) Description 01/27/2022 10:40 AM EDT Office Visit [facility] 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; Chronic fatigue Social History Tobacco Use Types Packs/Day Years [...] Sign Reading Time Taken Comments Blood Pressure 110/78 01/27/2022 10:25 AM EDT Pulse 70 01/27/2022 10:25 AM EDT Temperature 36.1 ??C (97 ??F) 01/27/2022 10:25 AM EDT Respiratory Rate 18 01/27/2022 10:25 AM EDT Oxygen Saturation 97% 01/27/2022 10:25 AM EDT Inhaled Oxygen Concentration - - Weight 78.5 kg (173 lb) 01/27/2022 10:25 AM EDT Height 154.9 cm (5' 1 ) 01/27/2022 10:25 AM EDT Body Mass Index 32.69 01/27/2022 10:25 AM EDT documented in this encounter Functional [...] Progress Notes * Mann Irene MD - 01/27/2022 11:17 AM EDTAssociated Problem(s): Advanced atrophic nonexudative age-related macular degeneration of right eyewithout subfoveal involvement Managed by ophthalmology. * Mann Irene MD - 01/27/2022 10:40 AM EDT Assessment Diagnoses and all orders for this visit: Syncope, cardiogenic - CBC WITH DIFF; Future - COMPREHENSIVE METABOLIC PANEL; Future - TSH REFLEX; Future 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 Assessment & Plan: Managed by ophthalmology. Chronic fatigue - TSH REFLEX; Future Syncope, unclear cause- No seizure activity reported No chest pain, no shortness of breath Check labs. Possible equipment monitor phototypesetting. Progress Note: Vitals: 01/27/22 1025 BP: 110/78 Pulse: 70 Resp: 18 Temp: 97 ??F (36.1 ??C) SpO2: 97% Weight: 173 lb (78.5 kg) Height: 5' 1 (1.549 m) SUBJECTIVE: Chief Complaint Patient presents with ??? Dizziness ??? 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 No warning, did not feel badly. Passed out - onlyout for a very brief time. Someone helped her back up. She was oriented after about 1 minute. [place] weak/tired but no other symptoms. Denies any prodromal symptoms. Day was normal up to that point. Has not had any further episodes through the weekend. Review of Systems Constitutional: Negative. HENT: Negative. Eyes: Negative. Respiratory: Negative. Cardiovascular: Negative. Gastrointestinal: Negative. Endocrine: Negative. Genitourinary: Negative. Musculoskeletal: Negative. Skin: Negative. Allergic/Immunologic: Negative. Neurological: Negative. Hematological: Negative. Psychiatric/Behavioral: Negative. OBJECTIVE: Physical Exam Vitals reviewed. Constitutional: General: [...] reactive to light. Neck: Thyroid: No thyromegaly. Cardiovascular: Rate and Rhythm: Normal rate and [...] place, and time. * Jill Beck - 01/27/2022 10:40 AM EDT Venipuncture in the right antecubital vein with 21 gauge needle, length 1 1/2 inch. * Mann Irene MD - 01/27/2022 10:40 AM EDT Normal blood work. Would recommend 48 hour holter monitor (heart monitor) for further evaluation. If she agrees, will order and she can schedule at [phone]. documented in this encounter Plan of Treatment Upcoming Encounters Date Type Department Care Team (Late st Contact Info) Description 05/16/2024 9:30 AM EST Office Visit [facility] [address] [place] [address] Gilda Francis PA [address] [place] [address] documented as of this encounter Procedures Procedure Name Priority Date/Time Associated Diagnosis Comments TSH REFLEX Routine 01/27/2022 11:09 AM EDT Syncope, cardiogenic Chronic fatigue CBC WITH DIFF Routine 01/27/2022 11:09 AM EDT Syncope, cardiogenic COMPREHENSIVE METABOLIC PANEL Routine 01/27/2022 11:09 AM EDT Syncope, cardiogenic documented in this encounter Results * TSH REFLEX (01/27/2022 11:09 AM EDT) TSH Reflex 0.797 0.270 - 4.200 mcIU/mL 01/27/2022 4:28 PM EDT [facility] Blood VENOUS BLOOD / Unknown Venipuncture / Unknown 01/27/2022 11:09 AM EDT 01/27/2022 11:09 AM EDT Narrative [facility] - 01/27/2022 4:28 PM EDT Ingestion of lakshmi doses of biotin (>5 mg/day) taken within 8 hours of drawing blood sample can interfere with this immunoassay test. us Mann Irene MD CHEMISTRY ORDERABLES Final Res ult [facility] [address] [facility] , [address] [place] [id number] * (ABNORMAL) COMPREHENSIVE METABOLIC PANEL (01/27/2022 11:09 AM EDT) Sodium 143 136 - 145 mmol/L 01/27/2022 4:28 PM EDT [facility] Potassium 4.5 3.5 - 5.0 mmol/L 01/27/2022 4:28 PM EDT [facility] Chloride 107 98 - 107 mmol/L 01/27/2022 4:28 PM EDT [facility] Total CO2 26 22 - 29 mmol/L 01/27/2022 4:28 PM EDT [facility] Anion Gap 10 7 - 16 mmol/L 01/27/2022 4:28 PM EDT [facility] Calcium 9.4 8.8 - 10.4 mg/dL 01/27/2022 4:28 PM EDT [facility] Glucose Lvl 103(H) 82 - 100 mg/dL 01/27/2022 4:28 PM EDT [facility] BUN 18 8 - 23 mg/dL 01/27/2022 4:28 PM EDT [facility] Creatinine 0.77 0.51 - 1.30 mg/dL 01/27/2022 4:28 PM EDT [facility] Albumin 4.3 3.2 - 4.6 gm/dL 01/27/2022 4:28 PM EDT [facility] Total Protein 7.2 6.4 - 8.3 gm/dL 01/27/2022 4:28 PM EDT [facility] Bili Total 0.4 0.1 - 1.3 mg/dL 01/27/2022 4:28 PM EDT [facility] ALT 14 <=41 U/L 01/27/2022 4:28 PM EDT [facility] AST 17 <=40 U/L 01/27/2022 4:28 PM EDT [facility] Alk Phos 95 36 - 123 U/L 01/27/2022 4:28 PM EDT [facility] eGFR (CKD-EPIcr 2020) 80 >=60 mL/min/1.7 3 m2 01/27/2022 4:28 PM EDT [facility] Comment:Estimated GFR was ca lculated using the CKD-EPIcr (2020) equation refit without race. The equation is recommended by the National Kidney Foundation - [place] Society of Nephrology Task Force. Blood VENOUS BLOOD / Unknown Venipuncture / Unknown 01/27/2022 11:09 AM EDT 01/27/2022 11:09 AM EDT us Mann Irene MD CHEMISTRY ORDERABLES Final Res ult [facility], [address] , [address] [place] [id number] [facility] [address] [place], [place] [id number] * (ABNORMAL) CBC WITH DIFF (01/27/2022 11:09 AM EDT) [facility] WBC 9.8 3.7 - 10.3 x10(3)/mcL 01/27/2022 4:17 PM EDT [facility] RBC 4.93 3.90 - 5.20 x10(6)/mcL 01/27/2022 4:17 PM EDT [facility] Hgb 14.0 11.2 - 15.7 g/dL 01/27/2022 4:17 PM EDT [facility] Hct 43.8 34.0 - 45.0 % 01/27/2022 4:17 PM EDT [facility] MCV 88.8 80.0 - 100.0 fL 01/27/2022 4:17 PM EDT [facility] MCH 28.4 26.0 - 34.0 pg 01/27/2022 4:17 PM EDT [facility] MCHC 32.0 30.7 - 35.5 g/dL 01/27/2022 4:17 PM EDT [facility] RDW 14.2 <=14.9 % 01/27/2022 4:17 PM EDT [facility] Platelet 342 155 - 369 x10(3)/mcL 01/27/2022 4:17 PM EDT [facility] MPV 9.9 8.8 - 12.5 fL 01/27/2022 4:17 PM EDT [facility] Neut Percent 42.7 % 01/27/2022 4:17 PM EDT [facility] Comment:Neutrophils equals s egs plus bands Imm Gran% 0.2 % 01/27/2022 4:17 PM EDT [facility] Comment:Automated count of m etamyelocytes, myelocytes and promyelocytes. Lymph Percent 42.6 % 01/27/2022 4:17 PM EDT [facility] [place] Percent 7.9 % 01/27/2022 4:17 PM EDT [facility] Eos Percent 5.9 % 01/27/2022 4:17 PM EDT [facility] Baso Percent 0.7 % 01/27/2022 4:17 PM EDT [facility] Neut # 4.2 1.6 - 6.1 x10(3)/[facility] 01/27/2022 4:17 PM EDT [facility], [facility] Comment:Neutrophils equals s egs plus bands IMMGRAN# 0.0 0.0 - 0.1 x10(3)/[facility] 01/27/2022 4:17 PM EDT [facility], [facility] Comment:Automated count of m etamyelocytes, myelocytes and promyelocytes. An absolute IG <0.1 is reported as 0.0. Lymph # 4.2(H) 1.2 - 3.9 x10(3)/[facility] 01/27/2022 4:17 PM EDT [facility] [place] # 0.8 0.3 - 0.9 x10(3)/[facility] 01/27/2022 4:17 PM EDT [facility] Eos# 0.6(H) 0.0 - 0.5 x10(3)/[facility] 01/27/2022 4:17 PM EDT [facility] Baso # 0.1 0.0 - 0.1 x10(3)/[facility] 01/27/2022 4:17 PM EDT [facility], [facility] Blood VENOUS BLOOD / Unknown Venipuncture / Unknown 01/27/2022 11:09 AM EDT 01/27/2022 11:09 AM EDT us Mann Irene MD HEMATOLOGY ORDERABLES Final Re sult [facility], [address] , [address] [place] [id number] documented in this encounter Visit Diagnoses Diagnosis Syncope, cardiogenic- Primary Syncope and collapse 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 Chronic fatigue Other malaise and fatigue documented in this encounter Additional Health Concerns Infection Onset Date Last Indicated Resolved Time ESBL organism 11/16/2019 11/16/2019 03/28/2022 1:0 5 PM EST Assessment Noted Time A fall risk assessment has been complete d for the patient 02/05/2021 7:27 AM EDT documented as of this encounter Care Teams Imcu Nurse Relationship Specialty Start Date End Date Mann Irene MD [address] [place] [address] PCP - General Internal Medicine 08/23/12 07/13/22 documented as of this encounter
--- OUTSIDE RECORDS SUMMARY | 2024-03-27 15:01 | XMS_ITS | Encounter Summary ---
Author Organization [place] [address] Care Team Providers Care At Home Independent Call Center Agent Name Role Phone Mann Irene MD Primary Care Provider [phone] Reason for Visit * Reason Comments Medicare Annual Wellness medicare Shoulder Pain Encounter Details Date Type Department Care Team (Latest Contact Info) Description 02/05/2021 9:00 AM EDT Office Visit [facility] [place] [facility] [place] [address] [address] [place] [address] [place] [address] Annual physical exam (Primary Dx); Seasonal allergic rhinitis due to pollen; Needs flu shot; Hypercholesterolemia; Osteoarthritis, unspecified osteoarthritis type, unspecified site Social History Tobacco Use Types Packs/Day Years [...] AM EDT documented as of this encounter Last Filed Vital Signs Vital Sign Reading Time Taken Comments Blood Pressure 136/88 02/05/2021 9:11 AM EDT Pulse 78 02/05/2021 9:11 AM EDT Temperature 36.7 ??C (98 ??F) 02/05/2021 9:11 AM EDT Respiratory Rate 18 02/05/2021 9:11 AM EDT Oxygen Saturation 97% 02/05/2021 9:11 AM EDT Inhaled Oxygen Concentration - - Weight 78.9 kg (174 lb) 02/05/2021 9:11 AM EDT Height 154.9 cm (5' 1 ) 02/05/2021 9:11 AM EDT Body Mass Index 32.88 02/05/2021 9:11 AM EDT documented in this encounter Functional [...] 02/05/2021 7:28 AM EDTomi José CCMA documented as of this encounter Mental Status * Because of a physical, mental or emotional condition, does this person have serious difficulty concentrating, remembering or making decisions? Answer Entry Date Author No 02/05/2021 7:28 AM EDTomi José CCMA documented in this encounter Ordered Prescriptions Prescription Sig Dispense Quantity Refills Last Filled Start Date End Date meloxicam (MOBIC) 15 mg Oral TabletIndications:Os teoarthritis, unspecified osteoarthritis type, unspecified site Take 1 Tablet by mouth daily for 180 days. 90 Tablet 1 02/05/2021 1 loratadine-pseudoeph edrine (LORATADINE-PSEUDOEP HEDRINE) 10-240 mg Oral Tablet Sustained Release 24 hrIndications:Season al allergic rhinitis due to pollen Take 1 Tablet by mouth daily. 30 Tablet 2 02/05/2021 1 atorvastatin (LIPITOR) 10 mg Oral TabletIndications:Hy percholesterolemia Take 1 Tablet by mouth daily. 90 Tablet 02/05/2021 1 documented in this encounter Progress Notes * Mann Irene MD - 02/05/2021 9:00 AM EDT Assessment Diagnoses and all orders for this visit: Annual physical exam Seasonal allergic rhinitis due to pollen - loratadine-pseudoephedrine (LORATADINE-PSEUDOEPHEDRINE) 10-240 mg Oral Tablet Sustained Release 24 hr; Take 1 Tablet by mouth daily. Dispense: 30 Tablet; Refill: 2 Needs flu shot - QUADRIVALENT FLUZONE HIGH DOSE Hypercholesterolemia - COMPREHENSIVE METABOLIC PANEL; Future - LIPID SCREEN; Future - CBC WITH DIFF; Future - atorvastatin (LIPITOR) 10 mg Oral Tablet; Take 1 Tablet by mouth daily. Dispense: 90 Tablet; Refill: 0 Osteoarthritis, unspecified osteoarthritis type, unspecified site - meloxicam (MOBIC) 15 mg Oral Tablet; Take 1 Tablet by mouth daily for 180 days. Dispense: 90 Tablet; Refill: 1 Progress Note: Vitals: 02/05/21 0911 BP: 136/88 Pulse: 78 Resp: 18 Temp: 98 ??F (36.7 ??C) TempSrc: Core SpO2: 97% Weight: 174 lb (78.9 kg) Height: 5' 1 (1.549 m) SUBJECTIVE: Chief Complaint Patient presents with ??? Medicare Annual Wellness medicare ??? Shoulder Pain HPI: Review of Systems Constitutional: Negative. HENT: Negative. Eyes: Negative. Respiratory: Negative. Cardiovascular: Negative. Gastrointestinal: Negative. Endocrine: Negative. Genitourinary: Negative. Musculoskeletal: Negative. Skin: Negative. Allergic/Immunologic: Negative. Neurological: Negative. Hematological: Negative. Psychiatric/Behavioral: Negative. OBJECTIVE: Physical Exam * Jill Beck - 02/05/2021 9:00 AM EDT Venipuncture in the right antecubital vein with 21 gauge needle, length 1 1/2 inch. * Mann Irene MD - 02/05/2021 9:00 AM EDT Labs all good/normal. No new changes. documented in this encounter Plan of Treatment Upcoming Encounters Date Type Department Care Team (Late st Contact Info) Description 05/16/2024 9:30 AM EST Office Visit [facility] [address] [place] [address] Gilda Fracnis PA [address] [place] [address] documented as of this encounter Procedures Procedure Name Priority Date/Time Associated Diagnosis Comments CBC WITH DIFF Routine 02/05/2021 9:31 AM EDT Hypercholesterolem ia LIPID SCREEN Routine 02/05/2021 9:31 AM EDT Hypercholesterolem ia COMPREHENSIVE METABOLIC PANEL Routine 02/05/2021 9:31 AM EDT Hypercholesterolem ia documented in this encounter Results * (ABNORMAL) CBC WITH DIFF (02/05/2021 9:31 AM EDT) [facility] WBC 9.4 3.7 - 10.3 x10(3)/mcL 02/05/2021 5:31 PM EDT [facility], [facility] RBC 4.88 3.90 - 5.20 x10(6)/mcL 02/05/2021 5:31 PM EDT [facility] Hgb 14.1 11.2 - 15.7 g/dL 02/05/2021 5:31 PM EDT [facility] Hct 45.5(H) 34.0 - 45.0 % 02/05/2021 5:31 PM EDT [facility] MCV 93.2 80.0 - 100.0 fL 02/05/2021 5:31 PM EDT [facility] MCH 28.9 26.0 - 34.0 pg 02/05/2021 5:31 PM EDT [facility] MCHC 31.0 30.7 - 35.5 g/dL 02/05/2021 5:31 PM EDT [facility] RDW 14.6 <=14.9 % 02/05/2021 5:31 PM EDT [facility] Platelet 327 155 - 369 x10(3)/[facility] 02/05/2021 5:31 PM EDT [facility] MPV 10.0 8.8 - 12.5 fL 02/05/2021 5:31 PM EDT [facility] Neut Percent 44.2 % 02/05/2021 5:31 PM EDT [facility] Comment:Neutrophils equals s egs plus bands Imm Gran% 0.5 % 02/05/2021 5:31 PM EDT [facility] Comment:Automated count of m etamyelocytes, myelocytes and promyelocytes. Lymph Percent 41.2 % 02/05/2021 5:31 PM EDT [facility] Garden Percent 6.2 % 02/05/2021 5:31 PM EDT [facility] Eos Percent 6.8 % 02/05/2021 5:31 PM EDT [facility] Baso Percent 1.1 % 02/05/2021 5:31 PM EDT [facility] Neut # 4.1 1.6 - 6.1 x10(3)/[facility] 02/05/2021 5:31 PM EDT [facility] Comment:Neutrophils equals s egs plus bands IMMGRAN# 0.1 0.0 - 0.1 x10(3)/mcL 02/05/2021 5:31 PM EDT [facility] Comment:Automated count of m etamyelocytes, myelocytes and promyelocytes. An absolute IG <0.1 is reported as 0.0. Lymph # 3.9 1.2 - 3.9 x10(3)/[facility] 02/05/2021 5:31 PM EDT [facility], [facility] Garden # 0.6 0.3 - 0.9 x10(3)/mcL 02/05/2021 5:31 PM EDT [facility] Eos# 0.6(H) 0.0 - 0.5 x10(3)/[facility] 02/05/2021 5:31 PM EDT [facility], [facility] Baso # 0.1 0.0 - 0.1 x10(3)/[facility] 02/05/2021 5:31 PM EDT [facility] Blood Venipuncture / Unknown 02/05/2021 9:31 AM EDT 02/05/2021 9:33 AM EDT us Mann Irene MD HEMATOLOGY ORDERABLES Final Re sult [facility] [address] [facility] , [place] [address] * (ABNORMAL) LIPID SCREEN (02/05/2021 9:31 AM EDT) Cholesterol 171 <200 mg/dL 02/05/2021 5:47 PM EDT [facility] Comment: < 200 ?Desirable 200 - 239 ? Borderline High >= 240 ?High Triglyceride 90 <150 mg/dL 02/05/2021 5:47 PM EDT [facility] Comment: < 150 ? Normal 150 - 199 ?Borderline High 200 - 499 ?High ??>= 500 ? Very High HDL 53 >=40 mg/dL 02/05/2021 5:47 PM EDT [facility] Comment: ??> 60 ?Optimal 40 - 60 ?Acceptable ?? < 40 ?Low LDL Calculated 101(H) <100 mg/dL 02/05/2021 5:47 PM EDT [facility] Comment: < 100 ?Optimal 100 - 129 ? Near or above optimal 130 - 159 ? Borderline High 160 - 189 ? High >= 190 ?Very High Non-HDL-C Calculated 118 <=129 mg/dL 02/05/2021 5:47 PM EDT [facility] Comment: <130 ?Desirable 130-159 Above Desirable 160-189 Borderline High 190-219 High >= 220 ??Very High Fasting Specimen? Yes None 021 5:47 PM EDT [facility] Blood Venipuncture / Unknown 02/05/2021 9:31 AM EDT 02/05/2021 9:33 AM EDT us Mann Irene MD CHEMISTRY ORDERABLES Final Res ult [facility], [facility] [address] [facility] [address] [place] [address] [facility] [address] [place] [address] * COMPREHENSIVE METABOLIC PANEL (02/05/2021 9:31 AM EDT) Sodium 144 136 - 145 mmol/L 02/05/2021 5:47 PM EDT [facility] Potassium 4.6 3.5 - 5.0 mmol/L 02/05/2021 5:47 PM EDT [facility] Chloride 107 98 - 107 mmol/L 02/05/2021 5:47 PM EDT [facility] Total CO2 27 22 - 29 mmol/L 02/05/2021 5:47 PM EDT [facility] Anion Gap 10 7 - 16 mmol/L 02/05/2021 5:47 PM EDT [facility] Calcium 9.6 8.8 - 10.4 mg/dL 02/05/2021 5:47 PM EDT [facility] Glucose Lvl 96 82 - 100 mg/dL 02/05/2021 5:47 PM EDT [facility] BUN 12 8 - 23 mg/dL 02/05/2021 5:47 PM EDT [facility] Creatinine 0.75 0.51 - 1.30 mg/dL 02/05/2021 5:47 PM EDT [facility] Albumin 4.6 3.2 - 4.6 gm/dL 02/05/2021 5:47 PM EDT [facility] Total Protein 7.4 6.4 - 8.3 gm/dL 02/05/2021 5:47 PM EDT [facility] Bili Total 0.4 0.1 - 1.3 mg/dL 02/05/2021 5:47 PM EDT [facility] ALT 11 <=41 U/L 02/05/2021 5:47 PM EDT [facility] AST 15 <=40 U/L 02/05/2021 5:47 PM EDT [facility] Alk Phos 103 36 - 123 U/L 02/05/2021 5:47 PM EDT [facility] GFR Afr Am 91 >=60 mL/min/1.7 3 m2 02/05/2021 5:47 PM EDT [facility] GFR Non Afr Am 79 >=60 mL/min/1.7 3 m2 02/05/2021 5:47 PM EDT [facility] Comment: This estimated GFR was calculated using CKD-EPI equation which is modified based on ethnicity for Non Americans and Americans. Both results are reported since it is not always possible to determine the patient's ethnicity. This equation should only be used for individuals 18 and older. It has not been validated for use with the elderly (>70 years), women, or in some racial or ethnic subgroups, such as Hispanics. The equation will be less accurate in people with differences in nutritional status or muscle mass. Blood Venipuncture / Unknown 02/05/2021 9:31 AM EDT 02/05/2021 9:33 AM EDT us Mann Irene MD CHEMISTRY ORDERABLES Final Res ult [facility] [address] [facility], [place] [address] [facility] [address] [facility] [place] [address] documented in this encounter Visit Diagnoses Diagnosis Annual physical exam- Primary Routine general medical examination at a health care facility Seasonal allergic rhinitis due to pollen Needs flu shot Need for prophylactic vaccination and inoculation against influenza Hypercholesterolemia Pure hypercholesterolemia Osteoarthritis, unspecified osteoarthritis type, unspecified site documented in this encounter Discontinued Medications Medication Sig Discontinue Reason Start Date End Da te tamsulosin (FLOMAX) 0.4 mg Oral Capsule TAKE 1 CAPSULE BY MOUTH EVERY DAY AT NIGHT DELETE- Entered in Error 12/21/2019 02/05/2021 loratadine-pseudoephedrine (LORATADINE-PSEUDOEPHEDRINE) 10-240 mg Oral Tablet Sustained Release 24 hrIndications:Seasonal allergic rhinitis due to pollen Take 1 Tab by mouth daily. Reorder 08/09/2019 02/05/2021 atorvastatin (LIPITOR) 10 mg Oral TabletIndications:Pure hypercholesterolemia Take 1 Tab by mouth daily. Reorder 09/26/2020 02/05/2021 diclofenac (VOLTAREN) 75 mg Oral Tablet, Delayed Release (E.C.) Take 1 Tab by mouth 2 times daily. with meals Cancelled by 09/26/2020 02/05/2021 documented as of this encounter Orders Immunization/Injection Count Last Ordered Date First Ordered Date QUADRIVALENT FLUZONE HIGH DOSE 1 02/05/2021 documented in this encounter Additional Health Concerns Infection Onset Date Last Indicated Resolved Time ESBL organism 11/16/2019 11/16/2019 03/28/2022 1:0 5 PM EST Assessment Noted Time A fall risk assessment has been complete d for the patient 02/05/2021 7:27 AM EDT documented as of this encounter Care Teams At Home Independent Call Center Agent Relationship Specialty Start Date End Date Mann Irene MD [address] [place] [address] PCP - General Internal Medicine 08/23/12 07/13/22 documented as of this encounter
--- OUTSIDE RECORDS SUMMARY | 2024-03-27 15:01 | XMS_ITS | Encounter Summary ---
Author Organization [place] [address] Care Team Providers Care Chief Investment Officer Name Role Phone Mann Irene MD Primary Care Provider [phone] Reason for Visit * Reason Onset Date Comments Medication Refill 09/26/2020 multiple meds Encounter Details Date Type Department Care Team (Late st Contact Info) Description 09/26/2020 Refill [facility] [place] [address] [place] [address] Mann Irene MD [place] [facility] [address] Medication Refill (multiple meds) Social History Tobacco Use Types Packs/Day Years Used Date Smoking Tobacco: Former Cigarettes 0.5 5 1 0 - 1994 Smokeless Tobacco: Never Comments:quit in 1998 Alcohol Use Standard Drinks/Week Comments No 0 (1 standard drink = 0.6 oz pur e alcohol) PHQ-2 Answer Date Recorded PHQ-2 Score 0 12/08/2019 Comments No Sex and Gender Information Value Date Recorded Sex Assigned at Not on file Legal Sex Female 5:30 PM EDT Gender Identity Not on file Sexual Orientation Not on file documented as of this encounter Functional Status * Is the person deaf or does he/she have serious difficulty hearing? Answer Date of Assessment Author No 12/08/2019 8:58 AM EDT Tomi Slaughter CCMA * Is the person blind or does he/she have serious difficulty seeing even when wearing glasses? Answer Date of Assessment Author No 12/08/2019 8:58 AM Tomi Huggins CCMA * Does this person have serious difficulty walking or climbing stairs? Answer Date of Assessment Author No 12/08/2019 8:58 AM CAITDavin LeticiaTomi olson CCMA * Does this person have difficulty dressing or bathing? Answer Date of Assessment Author No 12/08/2019 8:58 AM Tomi Huggins CCMA * Because of a physical, mental or emotional condition, does this person have difficulty doing errands alone such as visiting a doctor's office or shopping? Answer Date of Assessment Author No 12/08/2019 8:58 AM Tomi Huggins CCMA documented as of this encounter Mental Status * Because of a physical, mental or emotional condition, does this person have serious difficulty concentrating, remembering or making decisions? Answer Entry Date Author No 12/08/2019 8:58 AM Tomi Huggins CCMA documented in this encounter Ordered Prescriptions Prescription Sig Dispense Quantity Refills Last Filled Start Date End Date diclofenac (VOLTAREN) 75 mg Oral Tablet, Delayed Release (E.C.) Take 1 Tab by mouth 2 times daily. with meals 60 Tab 09/26/2020 02/06/20 21 atorvastatin (LIPITOR) 10 mg Oral TabletIndications:Pure hypercholesterolemia Take 1 Tab by mouth daily. 90 Tab 09/26/2020 02/06/20 21 documented in this encounter Miscellaneous Notes * Telephone Encounter - [place] Dinora - 09/26/2020 2:53 PM EDT Medication Refill Who is requesting the refill: Pharmacy [facility] Medication(s)Name/Dosage/Frequency: diclofenac (VOLTAREN) 75 mg Oral Tablet, Delayed Release (E.C.) 60 Tab 0 08/16/2019 Sig: TAKE 1 TAB BY MOUTH 2 TIMES DAILY (WITH MEALS) Sent to pharmacy as: diclofenac sodium 75 mg tablet,delayed release (VOLTAREN) Cosign for Ordering: Accepted by Mann Irene MD on 08/16/2019 ??7:34 AM E-Prescribing Status: Receipt confirmed by pharmacy (08/16/2019 ??6:58 AM EDT) atorvastatin (LIPITOR) 10 mg Oral Tablet 90 Tab 0 05/07/2020 Sig: TAKE 1 TABLET EVERY DAY Sent to pharmacy as: atorvastatin 10 mg tablet (LIPITOR) Cosign for Ordering: Accepted by Mann Irene MD on 05/07/2020 ??8:36 AM E-Prescribing Status: Receipt confirmed by pharmacy (05/07/2020 ??8:05 AM EST) Did patient contact the pharmacy first: N/A How many days left on hand: 0 Future appt date w/ prescribing provider: none Pharmacy & Location: [facility] Additional Notes: documented in this encounter Plan of Treatment Upcoming Encounters Date Type Department Care Team (Late st Contact Info) Description 05/16/2024 9:30 AM EST Office Visit [facility] [address] [place] [address] Gilda Francis PA [address] [place] [address] documented as of this encounter Visit Diagnoses Diagnosis Pure hypercholesterolemia documented in this encounter Discontinued Medications Medication Sig Discontinue Reason Start Date End Da te atorvastatin (LIPITOR) 10 mg Oral TabletIndications:Pure hypercholesterolemia TAKE 1 TABLET EVERY DAY Reorder 05/07/2020 09/26/2020 diclofenac (VOLTAREN) 75 mg Oral Tablet, Delayed Release (E.C.) TAKE 1 TAB BY MOUTH 2 TIMES DAILY (WITH MEALS) Reorder 08/16/2019 09/26/2020 documented as of this encounter Additional Health Concerns Infection Onset Date Last Indicated Resolved Time ESBL organism 11/16/2019 11/16/2019 03/28/2022 1:0 5 PM EST Assessment Noted Time A fall risk assessment has been complete d for the patient 12/08/2019 8:58 AM EDT documented as of this encounter Care Teams Chief Investment Officer Relationship Specialty Start Date End Date Mann Irene MD [address] [place] [address] PCP - General Internal Medicine 08/23/12 07/13/22 documented as of this encounter
--- OUTSIDE RECORDS SUMMARY | 2024-03-27 15:01 | XMS_ITS | Encounter Summary ---
Author Organization [place] [address] Care Team Providers Care Distance Learning Program Coordinator Name Role Phone Mann Irene MD Primary Care Provider [phone] Reason for Referral * Mammography (Routine) - Closed Specialty Diagnoses / Procedures Referred By Ramona mcdaneil Referred To Contact Radiology Diagnoses Encounter for screening mammogram for malignant neoplasm of breast Procedures MM MAMMO DIGITAL VIVIANA SCREEN Mann [place] [address] Phone: tel: fax: Referral ID Status Reason Start Date Expiration Date Visits Re quested Visits Authorized [id number] Closed 06/05/2021 06/05/2023 1 1 Reason for Visit * Mammography (Routine) - Closed Specialty Diagnoses / Procedures Referred By Ramona mcdaniel Referred To Contact Radiology Diagnoses Encounter for screening mammogram for malignant neoplasm of breast Procedures MM MAMMO DIGITAL VIVIANA SCREEN Mann [place] [address] [address] [place] [address] Phone: tel: fax: Referral ID Status Reason Start Date Expiration Date Visits Re quested Visits Authorized [id number] Closed 06/05/2021 06/05/2023 1 1 Encounter Details Date Type Department Care Team (Latest Contact Info) Description 07/16/2021 11:23 AM EST - 07/16/2021 11:59 PM EST Hospital Encounter Mobile Mammography Other Location View online schedule for mobile van location [phone] Mann Irene MD [address] [place] [address] Encounter for screening mammogram for malignant [...] 1 Tablet by mouth daily. 90 Tablet 03/18/2021 07/22/2021 diclofenac (VOLTAREN) 75 mg Oral Tablet, Delayed Release (E.C.) Take 1 Tablet by mouth 2 times daily for 180 days. with meals 180 Tablet 1 03/18/2021 09/16/2021 ergocalciferol (DRISDOL) 1,250 mcg (50,000 unit) Oral Capsule TAKE 1 CAPSULE BY MOUTH ONE TIME PER WEEK 12 Cap 3 02/06/2020 05/01/2022 documented as of this encounter Discharge Disposition Disposition Code Departure Means Destination Home or Self Care documented in this encounter Plan of Treatment Upcoming Encounters Date Type Department Care Team (Late st Contact Info) Description 05/16/2024 9:30 AM EST Office Visit [facility] [address] [place] [address] Gilda Francis PA [address] [place], [place] [id number] documented as of this encounter Procedures Procedure Name Priority Date/Time Associated Diagnosis Comments MM MAMMO DIGITAL VIVIANA SCREEN BILAT Routine 07/16/2021 11:40 AM EST Encounter for screening mammogram for malignant neoplasm of breast documented in this encounter Results * MM MAMMO DIGITAL VIVIANA SCREEN BILAT (07/16/2021 11:40 AM EST) Anatomical Region Laterality Modality Breast Bilateral Mammography 07/17/2021 11:4 8 AM EST Impressions 07/17/2021 11:48 AM EST Negative ??([id number]) ~ RECOMMENDATION: Routine screening mammogram in 1 [...] the next mammogram, in accordance with the [employer] and the Society of Breast Imaging recommendations. Narrative 07/17/2021 11:48 AM EST Procedure:MM MAMMO DIGITAL VIVIANA SCREEN BILAT ~ Reason for exam: screening, asymptomatic. ??Z12.31-Encounter for screening mammogram for malignant neoplasm of [id number] ~ MM MAMMO DIGITAL VIVIANA SCREEN BILAT Bilateral CC and MLO view(s) were taken. Prior study comparison: October 15, 2018, bilateral MM MOBILE MAMMO DIGITAL SCREEN W CAD ZEB performed at [facility]. ??September 14, 2017, bilateral MM MOBILE MAMMO DIGITAL SCREEN W CAD ZEB performed at [facility]. The breast tissue is heterogeneously dense. ??This may lower the sensitivity of mammography. ??COMPARISON STUDIES: Compared with prior studies, the most recent being 10/15/18, 09/14/17. ~ FINDINGS: No mammographic evidence of malignancy. ~ Procedure Note Jareth Gonzalez MD - 07/17/2021 Procedure:MM MAMMO DIGITAL VIVIANA SCREEN BILAT ~ Reason for exam: screening, asymptomatic. Z12.31-Encounter forscreening mammogram for malignant neoplasm of [id number] ~ MM MAMMO DIGITAL VIVIANA SCREEN BILAT Bilateral CC and MLO view(s) were taken. Prior study comparison: October 15, 2018, bilateral MM MOBILE MAMMO DIGITAL SCREEN W CAD ZEB performed at [facility]. September 14, 2017, bilateral MM MOBILE MAMMO DIGITAL SCREEN W CAD ZEB performed at [facility]. The breast tissue is heterogeneously dense. This may lower thesensitivity of mammography. COMPARISON STUDIES: Compared with prior studies, themost recent being 10/15/18, 09/14/17. ~ FINDINGS: No mammographic evidence of malignancy. ~ IMPRESSION: Negative ([id number]) ~ RECOMMENDATION: Routine screening mammogram in 1 [...] the next mammogram, in accordance with the [employer] and the Society of [...] documented as of this encounter Care Teams Distance Learning Program Coordinator Relationship Specialty Start Date End Date Mann Irene MD [address] [place] [address] PCP - General Internal Medicine 08/23/12 07/13/22 documented as of this encounter
--- OUTSIDE RECORDS SUMMARY | 2024-03-27 15:01 | XMS_ITS | Encounter Summary ---
Author Organization [place] [address] Care Team Providers Care Branch Account Manager Name Role Phone Mann Irene MD Primary Care Provider [phone] Reason for Visit * Reason Onset Date Comments Medication Refill 03/18/2021 atorvastatin ( LIPITOR) 10 mg Oral [id number] Spequz2902/05/2021 Encounter Details Date Type Department Care Team (Late st Contact Info) Description 03/18/2021 Refill [facility] [address] Mann Irene [place] [address] Medication Refill (atorvastatin (LIPITOR) 10 mg Oral [id number]/05/2021) Social History Tobacco Use Types Packs/Day Years [...] by mouth daily. 90 Tablet 03/18/2021 07/22/2021 documented in this encounter Miscellaneous Notes * Telephone Encounter - Kiersten Tan - 03/18/2021 12:22 PM EST Medication Refill Who is requesting the refill: Patient Medication(s)Name/Dosage/Frequency: atorvastatin (LIPITOR) 10 mg Oral Tablet 90 Tablet 0 02/05/2021 Sig - Route: Take 1 Tablet by mouth daily. - Oral Sent to pharmacy as: atorvastatin 10 mg tablet (LIPITOR) E-Prescribing Status: Receipt confirmed by pharmacy (02/05/2021 ??9:17 AM EDT) Did patient contact the pharmacy first: N/A How many days left on hand: 7 Future appt date w/ prescribing provider: no Pharmacy & Location: [id number] [place] [address] [facility] [phone] Additional Notes: documented in this encounter Plan of Treatment Upcoming Encounters Date Type Department Care Team (Late st Contact Info) Description 05/16/2024 9:30 AM EST Office Visit [facility] [address] [place] [address] Gilda Francis PA [address] [place] [address] documented as of this encounter Visit Diagnoses Diagnosis Hypercholesterolemia Pure hypercholesterolemia documented in this encounter Discontinued Medications Medication Sig Discontinue Reason Start Date End Da te atorvastatin (LIPITOR) 10 mg Oral TabletIndications:Hyperc holesterolemia Take 1 Tablet by mouth daily. Reorder 02/05/2021 03/18/2021 documented as of this encounter Additional Health Concerns Infection Onset Date Last Indicated Resolved Time ESBL organism 11/16/2019 11/16/2019 03/28/2022 1:0 5 PM EST Assessment Noted Time A fall risk assessment has been complete d for the patient 02/05/2021 7:27 AM EDT documented as of this encounter Care Teams Branch Account Manager Relationship Specialty Start Date End Date Mann Irene MD [address] [place] [address] PCP - General Internal Medicine 08/23/12 07/13/22 documented as of this encounter
--- OUTSIDE RECORDS SUMMARY | 2024-03-27 15:01 | XMS_ITS | Encounter Summary ---
Author Organization [place] [address] Care Team Providers Care Montessori Teacher Name Role Phone Mann Irene MD Primary Care Provider [phone] Reason for Visit * Reason Comments Congestion Encounter Details Date Type Department Care Team (Late st Contact Info) Description 09/16/2021 11:20 AM EDT Office Visit [facility] [address] [place] [id number] Carl Irene MD [address] [place] [address] [place] [address] Acute bacterial sinusitis (Primary Dx) Social History Tobacco Use Types [...] Sign Reading Time Taken Comments Blood Pressure 122/78 09/16/2021 10:59 AM EDT Pulse 74 09/16/2021 10:59 AM EDT Temperature - - Respiratory Rate 18 09/16/2021 10:59 AM EDT Oxygen Saturation 96% 09/16/2021 10:59 AM EDT Inhaled Oxygen Concentration - - Weight 79.4 kg (175 lb) 09/16/2021 10:59 AM EDT Height 154.9 cm (5' 1 ) 09/16/2021 10:59 AM EDT Body Mass Index 33.07 09/16/2021 10:59 AM EDT documented in this encounter Functional [...] Refills Last Filled Start Date End Date ipratropium (ATROVENT) 21 mcg (0.03 %) Nasl [place], Non-AerosolIndicat ions:Acute bacterial sinusitis 2 Sprays by Nasal route 3 times daily. 30 mL 2 09/16/2021 07/28/2022 amoxicillin-clavul anate (AUGMENTIN) 875-125 mg Oral TabletIndications: Acute bacterial sinusitis Take 1 Tablet by mouth every 12 hours for 7 days. 14 Tablet 09/16/2021 09/23/2021 documented in this encounter Progress Notes * Carl Irene MD - 09/16/2021 11:20 AM EDT Assessment Diagnoses and all orders for this visit: Acute bacterial sinusitis - amoxicillin-clavulanate (AUGMENTIN) 875-125 mg Oral Tablet; Take 1 Tablet by mouth every 12 hoursfor 7 days. Dispense: 14 Tablet; Refill: 0 - ipratropium (ATROVENT) 21 mcg (0.03 %) Nasl [place], Non-Aerosol; 2 Sprays by Nasal route 3 times daily. Dispense: 30 mL; Refill: 2 3 acute bacterial sinusitis with Augmentin and nasal decongestant spray we will follow-up as needed. Progress Note: Vitals: 09/16/21 1059 BP: 122/78 Pulse: 74 Resp: 18 SpO2: 96% Weight: 175 lb (79.4 kg) Height: 5' 1 (1.549 m) SUBJECTIVE: Chief Complaint Patient presents with ??? Congestion HPI: She has a 1 week history of worsening nasal congestion sinus pressure and pain. No fevers or chills. Nasal drainage has become more thick and purulent recently. No known COVID-19 or flu exposure. Shehas some mild chest tightness and a dry nonproductive cough. She feels somewhat fatigued and rundown as well. Review of Systems Constitutional: Positive for fatigue. HENT: Positive for congestion. Respiratory: Positive for cough and chest tightness. Gastrointestinal: Negative for abdominal pain. Neurological: Negative for headaches. OBJECTIVE: Physical Exam Vitals reviewed. Constitutional: General: She is not in acute distress. Appearance: She is not ill-appearing, toxic-appearing or diaphoretic. HENT: Head: Comments: Sinus tenderness to palpation Right Ear: Tympanic membrane normal. Left Ear: Tympanic membrane normal. Nose: Congestion and rhinorrhea present. Mouth/Throat: Pharynx: Posterior oropharyngeal erythema present. No oropharyngeal exudate. Cardiovascular: Rate and Rhythm: Normal rate and regular rhythm. Pulses: Normal pulses. Pulmonary: Effort: Pulmonary effort is normal. No respiratory distress. Breath sounds: No wheezing, rhonchi or rales. Skin: Findings: No rash. Neurological: Mental Status: She is alert. documented in this encounter Plan of Treatment Upcoming Encounters Date Type Department Care Team (Late st Contact Info) Description 05/16/2024 9:30 AM EST Office Visit [facility] [address] [place] [address] Gidla Francis PA [address] [place] [address] documented as of this encounter Visit Diagnoses Diagnosis Acute bacterial sinusitis- Primary Acute sinusitis, unspecified documented in this encounter Additional Health Concerns Infection Onset Date Last Indicated Resolved Time ESBL organism 11/16/2019 11/16/2019 03/28/2022 1:0 5 PM EST Assessment Noted Time A fall risk assessment has been complete d for the patient 02/05/2021 7:27 AM EDT documented as of this encounter Care Teams Montessori Teacher Relationship Specialty Start Date End Date Mann Irene MD [address] [place] [address] PCP - General Internal Medicine 08/23/12 07/13/22 documented as of this encounter
--- OUTSIDE RECORDS SUMMARY | 2024-03-27 15:01 | XMS_ITS | Encounter Summary ---
Author Organization [place] [address] Care Team Providers Care Lodging House Keeper Name Role Phone Mann Irene MD Primary Care Provider [phone] Reason for Visit * Reason Onset Date Comments Central Patient Navigator Outreach 12/06/2020 AWV Encounter Details Date Type Department Care Team (Late st Contact Info) Description 12/06/2020 Patient Outreach [facility] [address] [place] [address] Mann Irene [place] [address] [place] [address] Central Patient Navigator Outreach (AWV) Social History Tobacco Use Types Packs/Day Years [...] Assessment Author No 12/08/2019 8:58 AM EDT Sukhjinder Tomi ASHLEY knutsonElver * Does this person have serious difficulty walking or climbing stairs? Answer Date of Assessment Author No 12/08/2019 8:58 AM EDT Sukhjinder Tomi ASHLEY knutsonElver * Does this person have difficulty dressing or bathing? Answer Date of Assessment Author No 12/08/2019 8:58 AM EDT Sukhjinder Tomi ASHLEY knutsonElver * Because of a physical, mental or emotional condition, does this person have difficulty doing errands alone such as visiting a doctor's office or shopping? Answer Date of Assessment Author No 12/08/2019 8:58 AM EDT SukhjinderTomi CCMElver documented as of this encounter Mental Status * Because of a physical, mental or emotional condition, does this person have serious difficulty concentrating, remembering or making decisions? Answer Entry Date Author No 12/08/2019 8:58 AM EDT Tomi Slaughter CCMElver documented in this encounter Progress Notes * Yary Ritchie RN - 12/06/2020 4:39 PM EDT Patient Outreach: Care Gap Outreach Attempt Count: 1st Care Gaps Addressed convenience store clerk: Annual Wellness Visit and Mammogram Outcome: Left message to return call at documented in this encounter Plan of Treatment Upcoming Encounters Date Type Department Care Team (Late st Contact Info) Description 05/16/2024 9:30 AM EST Office Visit [facility] [address] [place] [address] Gilda Francis PA [address] [place] [address] documented as of this encounter Visit Diagnoses Not on filedocumented in this encounter Additional Health Concerns Infection Onset Date Last Indicated Resolved Time ESBL organism 11/16/2019 11/16/2019 03/28/2022 1:0 5 PM EST Assessment Noted Time A fall risk assessment has been complete d for the patient 12/08/2019 8:58 AM EDT documented as of this encounter Care Teams Lodging House Keeper Relationship Specialty Start Date End Date Mann Irene MD [address] [place] [address] PCP - General Internal Medicine 08/23/12 07/13/22 documented as of this encounter
--- OUTSIDE RECORDS SUMMARY | 2024-03-27 15:01 | XMS_ITS | Encounter Summary ---
Author Organization [place] [address] Care Team Providers Care Customer Counter Representative Name Role Phone Mann Irene MD Primary Care Provider [phone] Reason for Visit * Reason Onset Date Comments Appointment Needed 03/27/2022 Encounter Details Date Type Department Care Team (Late st Contact Info) Description 03/27/2022 Telephone [facility] [place] [facility] [place] [address] Mann Irene MD [place] [address] Appointment Needed Social History Tobacco Use Types Packs/Day Years [...] encounter Miscellaneous Notes * Telephone Encounter - Stefania Espinoza RMA - 03/27/2022 11:42 AM EST Pt advised to go to ER * Telephone Encounter - Ira Stubbs - 03/27/2022 11:14 AM EST Appointment Needed Appointment Requested By: Patient Provider Preference: PCP Only Type of Appt Needed: Acute Detailed Reason for Appt: has been passing out and fainting lately, this time while she was drivingtoday. Requested Timeframe: tomorrow anytime between 8:30 am to 2 pm Reason Scheduling Assistance is Needed: -no appts available with provider preference in time frame needed Additional Notes: documented in this encounter Plan of Treatment Upcoming Encounters Date Type Department Care Team (Late st Contact Info) Description 05/16/2024 9:30 AM EST Office Visit [facility] [address] [place] [address] Gilda Francis PA [address] [place] [address] documented as of this encounter Visit Diagnoses Not on filedocumented in this encounter Additional Health Concerns Infection Onset Date Last Indicated Resolved Time ESBL organism 11/16/2019 11/16/2019 03/28/2022 1:0 5 PM EST Assessment Noted Time A fall risk assessment has been complete d for the patient 02/05/2021 7:27 AM EDT documented as of this encounter Care Teams Customer Counter Representative Relationship Specialty Start Date End Date Mann Irene MD [address] [place] [address] PCP - General Internal Medicine 08/23/12 07/13/22 documented as of this encounter
--- OUTSIDE RECORDS SUMMARY | 2024-03-27 15:01 | XMS_ITS | Encounter Summary ---
Author Organization [facility] [place] [address] Care Team Providers Care Industrial Controller Name Role Phone Mann Irene MD Primary Care Provider [phone] Encounter Details Date Type Department Care Team (Latest Contact Info) Description 02/17/2022 Travel Social History Tobacco Use Types Packs/Day [...] EST Office Visit [facility] [address] [place] [address] Gilda Francis PA [address] [place] [address] documented as of this encounter Visit Diagnoses Not on filedocumented in this encounter Additional Health Concerns Infection Onset Date Last Indicated Resolved Time ESBL organism 11/16/2019 11/16/2019 03/28/2022 1:0 5 PM EST Assessment Noted Time A fall risk assessment has been complete d for the patient 02/05/2021 7:27 AM EDT documented as of this encounter Care Teams Industrial Controller Relationship Specialty Start Date End Date Mann Irene MD [address] [place] [address] PCP - General Internal Medicine 08/23/12 07/13/22 documented as of this encounter
--- OUTSIDE RECORDS SUMMARY | 2024-03-27 15:01 | XMS_ITS | Encounter Summary ---
Author Organization [place] [address] Care Team Providers Care Tobacco Stemmer Machine Name Role Phone Mann Irene MD Primary Care Provider [phone] Reason for Referral * Vascular Imaging (Routine) - Closed Specialty Diagnoses / Procedures Referred By Ramona t Referred To Contact Radiology Diagnoses PVD (peripheral vascular disease) (HCC) [place] Procedures [facility] CAROTID DUPLEX BILATERAL DC DUPLEX SCAN EXTRACRANIAL,Mann [place] [address] [address] [place] [address] Phone: tel: fax: Referral ID Status Reason Start Date Expiration Date Visits Re quested Visits Authorized [id number] Closed 10/31/2021 09/25/2023 1 1 Reason for Visit * Vascular Imaging (Routine) - Closed Specialty Diagnoses / Procedures Referred By Contmillicent t Referred To Contact Radiology Diagnoses PVD (peripheral vascular disease) (HCC) [place] Procedures [facility] CAROTID DUPLEX BILATERAL DC DUPLEX SCAN EXTRACRANIAL,Mann [place] [address] [address] [place] [address] Phone: tel: fax: Referral ID Status Reason Start Date Expiration Date Visits Re quested Visits Authorized [id number] Closed 10/31/2021 09/25/2023 1 1 Encounter Details Date Type Department Care Team (Latest Contact Info) Description 10/31/2021 11:35 AM EDT - 10/31/2021 11:59 PM EDT Hospital Encounter [facility] [address] [place] [id number] Mann Irene MD [address] [place] [address] PVD (peripheral vascular disease) ([facility]); [place] Discharge Disposition: Home or Self Care Social [...] Notes * Mann Irene MD - 10/31/2021 2:45 PM EDT Very mild narrowing/blockages of carotid arteries (in the less than 40% range). No treatment indicated for this finding, but would recheck in 2 years to make sure it's not getting worse. documented in this encounter Plan of Treatment Upcoming Encounters Date Type Department Care Team (Late st Contact Info) Description 05/16/2024 9:30 AM EST [facility] [address] [facility] [address] Gilda Francis PA [address] [facility] [address] documented as of this encounter Procedures Procedure Name Priority Date/Time Associated Diagnosis Comments MD US CAROTID DUPLEX BILATERAL Routine 10/31/2021 1:00 PM EDT PVD (peripheral vascular disease) (HCC) [place] documented in this encounter Results * MD US CAROTID DUPLEX BILATERAL (10/31/2021 1:00 PM [...] 0.70 cm. Narrative Procedure Note Conor Diaz, - 10/31/2021 IMPRESSION Conclusions * The right [...] left thyroid measuring 0.61x 0.70 cm. Result [facility] Mann Irene MD IMG VASCULAR ORDERABLES Final Result documented in this encounter Visit Diagnoses Diagnosis PVD (peripheral vascular disease) (HCC) Peripheral vascular disease, unspecified [place] Other symptoms involving cardiovascular system documented in this encounter Additional Health Concerns Infection Onset Date Last Indicated Resolved Time ESBL organism 11/16/2019 11/16/2019 03/28/2022 1:0 5 PM EST Assessment Noted Time A fall risk assessment has been complete d for the patient 02/05/2021 7:27 AM EDT documented as of this encounter Care Teams Tobacco Stemmer Machine Relationship Specialty Start Date End Date Mann Irene MD [address] [place] [address] PCP - General Internal Medicine 08/23/12 07/13/22 documented as of this encounter
--- OUTSIDE RECORDS SUMMARY | 2024-03-27 15:01 | XMS_ITS | Encounter Summary ---
Author Organization [place] [address] Care Team Providers Care Revenue Cycle Consultant Name Role Phone Mann Irene MD Primary Care Provider [phone] Reason for Visit * Reason Comments Medication Refill Encounter Details Date Type Department Care Team (Late st Contact Info) Description 09/15/2021 Refill [facility] [place] [address] Mann Irene [place] [address] Medication Refill Social History Tobacco Use [...] WITH MEALS 180 Tablet 1 09/16/2021 04/21/2022 documented in this encounter Plan of Treatment Upcoming Encounters Date Type Department Care Team (Late st Contact Info) Description 05/16/2024 9:30 AM EST Office Visit [facility] [address] [place] [address] Gilda Francis PA [address] [place] [address] documented as of this encounter Visit Diagnoses Not on filedocumented in this encounter Discontinued Medications Medication Sig Discontinue Reason Start Date End Da te diclofenac (VOLTAREN) 75 mg Oral Tablet, Delayed Release (E.C.) Take 1 Tablet by mouth 2 times daily for 180 days. with meals 03/18/2021 09/16/2021 documented as of this encounter Additional Health Concerns Infection Onset Date Last Indicated Resolved Time ESBL organism 11/16/2019 11/16/2019 03/28/2022 1:0 5 PM EST Assessment Noted Time A fall risk assessment has been complete d for the patient 02/05/2021 7:27 AM EDT documented as of this encounter Care Teams Revenue Cycle Consultant Relationship Specialty Start Date End Date Mann Irene MD [address] [place] [address] PCP - General Internal Medicine 08/23/12 07/13/22 documented as of this encounter
--- OUTSIDE RECORDS SUMMARY | 2024-03-27 15:01 | XMS_ITS | Encounter Summary ---
Author Organization [place] [address] Care Team Providers Care Bus Analyst Name Role Phone Mann Irene MD Primary Care Provider [phone] Reason for Visit * Reason Comments Medication Refill Encounter Details Date Type Department Care Team (Late st Contact Info) Description 05/05/2020 Refill [facility] [place] [address] Mann Irene MD [...] 8:58 AM EDT Tomi Slaughter CCMA * Does this person have serious difficulty walking or climbing stairs? Answer Date of Assessment Author No 12/08/2019 8:58 AM EDT Tomi Slaughter CCMA * Does this person have difficulty dressing or bathing? Answer Date of Assessment Author No 12/08/2019 8:58 AM EDT Tomi Slaughter CCMA * Because of a physical, mental or emotional condition, does this person have difficulty doing errands alone such as visiting a doctor's office or shopping? Answer Date of Assessment Author No 12/08/2019 8:58 AM EDT Tomi Slaughter CCMA documented as of this encounter Mental Status * Because of a physical, mental or emotional condition, does this person have serious difficulty concentrating, remembering or making decisions? Answer Entry Date Author No 12/08/2019 8:58 AM EDT Tomi Slaughter CCMA documented in this encounter Ordered Prescriptions Prescription Sig Dispense Quantity Refills Last Filled Start Date End Date atorvastatin (LIPITOR) 10 mg Oral TabletIndications:Pure hypercholesterolemia TAKE 1 TABLET EVERY DAY 90 Tab 0 09/27/19 21 documented in this encounter Plan of Treatment Upcoming Encounters Date Type Department Care Team (Late st Contact Info) Description 05/16/2024 9:30 AM EST Office Visit [facility] [address] [place] [phone] Gilda Francis PA [address] [place] [address] documented as of this encounter Visit Diagnoses Diagnosis Pure hypercholesterolemia documented in this encounter Discontinued Medications Medication Sig Discontinue Reason Start Date End Da te atorvastatin (LIPITOR) 10 mg Oral TabletIndications:Pure hypercholesterolemia TAKE 1 TABLET EVERY DAY 03/08/2020 05/07/2020 documented as of this encounter Additional Health Concerns Infection Onset Date Last Indicated Resolved Time ESBL organism 11/16/2019 11/16/2019 03/28/2022 1:0 5 PM EST Assessment Noted Time A fall risk assessment has been complete d for the patient 12/08/2019 8:58 AM EDT documented as of this encounter Care Teams Bus Analyst Relationship Specialty Start Date End Date Mann Irene MD [address] [place] [address] PCP - General Internal Medicine 08/23/12 07/13/22 documented as of this encounter
--- OUTSIDE RECORDS SUMMARY | 2024-03-27 15:01 | XMS_ITS | Encounter Summary ---
Author Organization [place] [address] Care Team Providers Care Cattle Broker Name Role Phone Mann Irene MD Primary Care Provider Reason for Visit * Reason Comments Medication Refill Encounter Details Date Type Department Care Team (Late st Contact Info) Description 10/20/2021 Refill [facility] [address] Mann Irene [place] [address] Medication Refill Social History Tobacco Use [...] MOUTH EVERY DAY 90 Tablet 10/21/2021 07/18/2022 documented in this encounter Plan of Treatment Upcoming Encounters Date Type Department Care Team (Late st Contact Info) Description 05/16/2024 9:30 AM EST Office Visit [facility] [address] [place] [address] Gilda Francis PA [address] [place] [address] documented as of this encounter Visit Diagnoses Diagnosis Hypercholesterolemia Pure hypercholesterolemia documented in this encounter Discontinued Medications Medication Sig Discontinue Reason Start Date End Da te atorvastatin (LIPITOR) 10 mg Oral TabletIndications:Hyperc holesterolemia TAKE 1 TABLET BY MOUTH EVERY DAY 07/22/2021 10/21/2021 documented as of this encounter Additional Health Concerns Infection Onset Date Last Indicated Resolved Time ESBL organism 11/16/2019 11/16/2019 03/28/2022 1:0 5 PM EST Assessment Noted Time A fall risk assessment has been complete d for the patient 02/05/2021 7:27 AM EDT documented as of this encounter Care Teams Cattle Broker Relationship Specialty Start Date End Date Mann Irene MD [address] [place] [address] PCP - General Internal Medicine 08/23/12 07/13/22 documented as of this encounter
--- OUTSIDE RECORDS SUMMARY | 2024-03-27 15:01 | XMS_ITS | Encounter Summary ---
Author Organization [place] [address] Care Team Providers Care Grade And Center Marker Name Role Phone Crys Irene MD Primary Care Provider [phone] Reason for Referral * Holter Monitor (Routine) - Closed Specialty Diagnoses / Procedures Referred By Contmillicent t Referred To Contact Radiology Diagnoses Syncope due to orthostatic hypotension Procedures HOLTER MONITOR RECORDING AND ANALYSIS Crys Irene MD [facility] [place] [address] Phone: tel: fax: Referral ID Status Reason Start Date Expiration Date Visits Re quested Visits Authorized [id number] Closed 01/28/2022 01/29/2024 1 1 Reason for Visit * Reason Onset Date Comments Results 01/28/2022 Encounter Details Date Type Department Care Team (Late st Contact Info) Description 01/28/2022 Telephone PHILIPPE ROJ[facility] [place] [address] Crys Irene MD [facility] [place] [address] Results Social History Tobacco Use Types Packs/Day [...] EDTomi José CCMA documented in this encounter Miscellaneous Notes * Telephone Encounter - Tavia Chávezison, LV - 01/28/2022 2:08 PM EDT Images from the original note were not included. Patient Calling for Results Patient called for results on Lab Which Provider ordered the test? [email or web address] Date of test: 01/27/2022 Advised patient of: normal result. Patient Instructions/ Questions: + --pt would like holter monitor order, please call pt once ordered, # for central sched given. Other: Please put in the result note that patient was notified of the following results Crys Irene MD 01/28/2022 ??7:51 AM EDT Normal blood work. ??Would recommend 48 hour holter monitor (heart monitor) for further evaluation.??If she agrees, will order and she can schedule at [phone]. documented in this encounter Plan of Treatment Upcoming Encounters Date Type Department Care Team (Late st Contact Info) Description 05/16/2024 9:30 AM EST Office Visit [facility] [address] [place] [address] Gilda Francis PA [address] [place] [address] documented as of this encounter Results * HOLTER MONITOR RECORDING AND ANALYSIS (02/17/2022 9:30 AM EDT) Anatomical Region Laterality Modality Holter/Event Mon itoring 02/26/2022 7:27 AM EDT Impressions 02/26/2022 7:01 PM EDT ? [facility] ? Test Date: ?2022-02-26 Pat Name: ? STELLA GOLDSTEIN ?Department: ?? DEPID ? Room: ? Gender: ? Female ? Traveling Electrician: ?? : ?1945 ? Requested By: CRYS Arroyo Order Number: [id number] ?Carlos MARSHALL: ?? Sergio Vincent ? Interpretive Statements Engine Pilot Date: ??02/17/2022 Referring Provider: ??Dr. Crys Irene MD Patient was monitored for 48 hours. INDICATIONS: Orthostatic hypotension CONCLUSION: Patient monitored for 2d 3h starting on 02/17/2022 09:24 am. Primary rhythm was Sinus Rhythm. Average heart rate was 88 bpm, Minimum heart rate was 67 bpm on :29:10 am, Max heart rate was 136 bpm on :57:50 pm SVE(s): [place] was 0.45 %, max count per 24 hours 581 SVT (AT, RT): 1 events, longest event 3 beats on Day :12:59 am, fastest event 181 bpm on Day :12:59 am PVC(s): [place] was 0.08 %, max count per 24 hours 104, 2 disparate morphologies PHYSICIAN SUMMARY: 1. Sinus rhythm with heart rates 67-136 bpm; average 88 bpm. 2. Occasional PACs. Occasional PVCs. 3. No detected arrhythmias. 4. No significant heart block or pauses. 5. No symptoms reported. Electronically Signed On 02-26-2022 19:01:30 EDT by Sergio Vincent Narrative Procedure Note Sergio Vincent MD - 02/26/2022 [facility]: 2022-02-26 Pat Name: STELLA GOLDSTEIN Department: DEPID Room: Gender: Female Traveling Electrician: : 1945 Requested By: CRYS Arroyo Order Number: [id number] Carlos MD: Sergio Vincent Interpretive Statements Engine Pilot Date: 02/17/2022 Referring Provider: Dr. Crys Irene MD Patient was monitored for 48 hours. INDICATIONS: Orthostatic hypotension CONCLUSION: Patient monitored for 2d 3h starting on 02/17/2022 09:24 am. Primary rhythm was Sinus Rhythm. Average heart rate was 88 bpm, Minimumheart rate was 67 bpm on Day :29:10 am, Max heart rate was 136 bpm on Day :57:50 pm SVE(s): [place] was 0.45 %, max count per 24 hours 581 SVT (AT, RT): 1 events, longest event 3 beats on Day :12:59 am,fastest event 181 bpm on Day :12:59 am PVC(s): [place] was 0.08 %, max count per 24 hours 104, 2 disparate morphologies PHYSICIAN SUMMARY: 1. Sinus rhythm with heart rates 67-136 bpm; average 88 bpm. 2. Occasional PACs. Occasional PVCs. 3. No detected arrhythmias. 4. No significant heart block or pauses. 5. No symptoms reported. Electronically Signed On 02-26-2022 19:01:30 EDT by Sergio Vincent Crys Irene MD IMG HOLTER MONITOR ORDERABLES Final Result documented in this encounter Visit Diagnoses Diagnosis Syncope due to orthostatic hypotension- Primary Syncope and collapse Syncope due to orthostatic hypotension Syncope and collapse documented in this encounter Additional Health Concerns Infection Onset Date Last Indicated Resolved Time ESBL organism 11/16/2019 11/16/2019 03/28/2022 1:0 5 PM EST Assessment Noted Time A fall risk assessment has been complete d for the patient 02/05/2021 7:27 AM EDT documented as of this encounter Care Teams Grade And Center Marker Relationship Specialty Start Date End Date Crys Irene MD [address] [place] [address] PCP - General Internal Medicine 08/23/12 07/13/22 documented as of this encounter
--- OUTSIDE RECORDS SUMMARY | 2024-03-27 15:01 | XMS_ITS | Encounter Summary ---
Author Organization [place] [address] Care Team Providers Care Behaviour Support Teacher Name Role Phone Mann Irene MD Primary Care Provider [phone] Reason for Visit * Reason Onset Date Comments Medication Reaction 09/17/2021 Encounter Details Date Type Department Care Team (Late st Contact Info) Description 09/17/2021 Telephone [facility] [address] [place] [place] [address] Medication Reaction Social History Tobacco Use Types Packs/Day Years [...] Telephone Encounter - Brittany Slaughter CCMA - 09/17/2021 9:58 AM EDT Instructions given to patients * Telephone Encounter - Carl Irene MD - 09/17/2021 9:40 AM EDT Diarrhea is a common side effect of antibiotics. Take a OTC probiotic along with eating high fiber foods. I sent imodium as well to help * Telephone Encounter - Violette Wing - 09/17/2021 8:43 AM EDT Pt seen Dr. Jesusita Irene yesterday and the med that was prescribed has caused her to have diarrhea. Please advise Pharmacy [id number] [place] [address] [address] [facility] - [phone] documented in this encounter Plan of Treatment Upcoming Encounters Date Type Department Care Team (Late st Contact Info) Description 05/16/2024 9:30 AM EST Office Visit [facility] [address] [place] [address] Gilda Francis PA [address] [place] [address] documented as of this encounter Visit Diagnoses Not on filedocumented in this encounter Additional Health Concerns Infection Onset Date Last Indicated Resolved Time ESBL organism 11/16/2019 11/16/2019 03/28/2022 1:0 5 PM EST Assessment Noted Time A fall risk assessment has been complete d for the patient 02/05/2021 7:27 AM EDT documented as of this encounter Care Teams Behaviour Support Teacher Relationship Specialty Start Date End Date Mann Irene MD [address] [place] [address] PCP - General Internal Medicine 08/23/12 07/13/22 documented as of this encounter
--- OUTSIDE RECORDS SUMMARY | 2024-03-27 15:01 | XMS_ITS | Encounter Summary ---
Author Organization [place] [address] Care Team Providers Care Bus Aide Name Role Phone Crys Irene MD Primary Care Provider [phone] Reason for Referral * Holter Monitor (Routine) - Closed Specialty Diagnoses / Procedures Referred By Contac t Referred To Contact Radiology Diagnoses Syncope due to orthostatic hypotension Procedures HOLTER MONITOR RECORDING AND ANALYSIS [place]rys [place] [address] [place] [address] Phone: tel: fax: Referral ID Status Reason Start Date Expiration Date Visits Re quested Visits Authorized [id number] Closed 01/28/2022 01/29/2024 1 1 Reason for Visit * Holter Monitor (Routine) - Closed Specialty Diagnoses / Procedures Referred By Contac t Referred To Contact Radiology Diagnoses Syncope due to orthostatic hypotension Procedures HOLTER MONITOR RECORDING AND ANALYSIS Crys Irene MD [address] [place] [address] Phone: tel: fax: Referral ID Status Reason Start Date Expiration Date Visits Re quested Visits Authorized [id number] Closed 01/28/2022 01/29/2024 1 1 Encounter Details Date Type Department Care Team (Latest Contact Info) Description 02/17/2022 9:15 AM EDT - 02/17/2022 11:59 PM EDT Hospital Encounter [facility] HOLTER MONITOR [address] [place] [address] Crys Irene MD [address] [place] [address] Syncope due to orthostatic hypotension Discharge Disposition: Home or Self Care Social [...] documented in this encounter Progress Notes * Crys Irene MD - 02/17/2022 9:30 AM EDT No dangerous heart rhythms. One episode of fast heart rate to 180's that lasted a few seconds. Unlikely this was related to her passing out episode. If she has further issues with dizziness/lightheadedness/passing out then we can discuss treatment options. If she still feels these episodes, schedule f/u to discuss. documented in this encounter Plan of Treatment Upcoming Encounters Date Type Department Care Team (Late st Contact Info) Description 05/16/2024 9:30 AM EST [facility] [address] [facility] [address] Gilda Francis PA [address] [facility] [address] documented as of this encounter Procedures Procedure Name Priority Date/Time Associated Diagnosis Comments HOLTER MONITOR RECORDING AND ANALYSIS Routine 02/17/2022 9:30 AM EDT Syncope due to orthostatic hypotension documented in this encounter Results * HM HOLTER MONITOR RECORDING AND ANALYSIS (02/17/2022 9:30 AM EDT) Anatomical Region Laterality Modality Holter/Event Mon itoring 02/26/2022 7:27 AM EDT Impressions 02/26/2022 7:01 PM EDT ? [facility] ? Test Date: ?2022-02-26 Pat Name: ? STELLA SCEANNA ?Department: ?? DEPID ? Room: ? Gender: ? Female ? Retail And Restaurant: ?? : ?1945 ? Requested By: CRYS Arroyo Order Number: [id number] ?Reading MD: ?? Sergio Vincent ? Interpretive Statements Director Process Improvement Date: ??02/17/2022 Referring Provider: ??Dr. Crys Irene MD Patient was monitored for 48 hours. INDICATIONS: Orthostatic hypotension CONCLUSION: Patient monitored for 2d 3h starting on 02/17/2022 09:24 am. Primary rhythm was Sinus Rhythm. Average heart rate was 88 bpm, Minimum heart rate was 67 bpm on Day :29:10 am, Max heart rate was 136 bpm on :57:50 pm SVE(s): [place] was 0.45 %, max count per 24 hours 581 SVT (AT, RT): 1 events, longest event 3 beats on Day :12:59 am, fastest event 181 bpm on :12:59 am PVC(s): [place] was 0.08 %, max count per 24 hours 104, 2 disparate morphologies PHYSICIAN SUMMARY: 1. Sinus rhythm with heart rates 67-136 bpm; average 88 bpm. 2. Occasional PACs. Occasional PVCs. 3. No detected arrhythmias. 4. No significant heart block or pauses. 5. No symptoms reported. Electronically Signed On 02-26-2022 19:01:30 EDT by Sergio Vincent Narrative Procedure Note Sergio Vincent MD - 02/26/2022 IMPRESSION [facility] Test Date: 2022-02-26 Pat Name: STELLA GOLDSTEIN Department: DEPID Room: Gender: Female Retail And Restaurant: : 1945 Requested By: CRYS Arroyo Order Number: [id number] Carlos MD: Sergio Vincent Interpretive Statements Director Process Improvement Date: 02/17/2022 Referring Provider: Dr. Crys Irene MD Patient was monitored for 48 hours. INDICATIONS: Orthostatic hypotension CONCLUSION: Patient monitored for 2d 3h starting on 02/17/2022 09:24 am. Primary rhythm was Sinus Rhythm. Average heart rate was 88 bpm, Minimumheart rate was 67 bpm on Day :29:10 am, Max heart rate was 136 bpm on :57:50 pm SVE(s): [place] was 0.45 %, max count per 24 hours 581 SVT (AT, RT): 1 events, longest event 3 beats on :12:59 am,fastest event 181 bpm on :12:59 am PVC(s): [place] was 0.08 %, max count per 24 [...] Visit Diagnoses Diagnosis Syncope due to orthostatic hypotension Syncope and collapse documented in this encounter Additional Health Concerns Infection Onset Date Last Indicated Resolved Time ESBL organism 11/16/2019 11/16/2019 03/28/2022 1:0 5 PM EST Assessment Noted Time A fall risk assessment has been complete d for the patient 02/05/2021 7:27 AM EDT documented as of this encounter Care Teams Bus Aide Relationship Specialty Start Date End Date Crys Irene MD [address] [place] [id number] PCP - General Internal Medicine 08/23/12 07/13/22 documented as of this encounter
--- OUTSIDE RECORDS SUMMARY | 2024-03-27 15:02 | XMS_ITS | Encounter Summary ---
Author Organization [place] [address] Care Team Providers Care Epic Cupid Analyst Name Role Phone Mann Irene MD Primary Care Provider [phone] Reason for Visit * Auth/Cert/Inpt Specialty Diagnoses / Procedures Referred By Ramona [email or web address] Referred To Contact Diagnoses Nephrolithiasis Nephrolithiasis [N20.0] Procedures [place] CYSTO/URETERO/PYELOSCOPY W/LITHOTRIPSY cystoscopy, right ureteroscopy, laser lithotripsy, right stent placement Referral ID Status Reason Start Date Expiration Date Visits Re quested Visits Authorized [id number] 1 1 Encounter Details Date Type Department Care Team (Late st Contact Info) Description 01/02/2020 2:45 PM EDT Anesthesia Event EDG PERIOP [facility] [place] [id number] London Cheng MD [address] [facility] [address] [place] [address] Tanya Lawrence APRN [address] [place] [address] [address] [place] [address] Anesthesia Record Procedure Summary Procedure Name Responsible Anesthesiologist Anesthesia Start Time Anesthesia Stop Time CYSTOSCOPY, URETEROSCOPY, LASER LITHOTRIPSY, RETROGRADE PYELOGRAM, STENT INSERTION (Right) London Cheng MD 01/02/20 1445 01/02/20 1543 Events Date Time Event Comment 01/02/2020 1257 1434 AN Equip Check 1445 An Start 1445 An Start Data 1448 Immediate Pre Anesthetic Ass es 1449 An Induction 1450 An LMA 1452 Anesthesia Ready 1456 Time out 1457 Incision 1505 Quick Note Pt had a 4 skip ped beats and back into SR without any intervention. Both surgeon and anesthesiologist made aware. No further instruction. BP stable. 1532 Airway Removed 1534 an stop data 1543 An Stop 1543 Handoff I completed my SBAR handoff to the receiving nurse which has included the followin. Identification of the patient, family, or patient surrogate 2. Identification of the responsible practitioner 3. Pertinent medical history 4. Surgical procedure and reason for procedure 5. Intraoperative anesthetic management 6. All current lines, drains and respiratory support. 7. Outstanding follow up orders (X-rays, consults etc) 8. Expectations/Plans for the early post-procedure period 9. Opportunity for questions and acknowledgement of understanding from the receiving PACU/ICU steam drier operator Meds Name Total midazolam (VERSED) injection 1 mg/mL 2 m g lidocaine injection 1% 50 mg propofol (DIPRIVAN) injection 150 mg fentaNYL 50 MCG/ML INJ 125 mcg glycopyrrolate (ROBINUL) injection 0.2 m g ondansetron (ZOFRAN) injection 4 mg /2 m L 4 mg dexamethasone (DECADRON) injection 4 mg/ mL 4 mg ephedrine injection 30 mg phenylephrine 100 mcg/ml 10ml (syringe) 100 mcg ceFAZolin (ANCEF) IVPB 2 g 2 g lactated ringers infusion 1,000 mL * Agents Name O2 Air Et Sevoflurane * Blood No blood administrations on file. Lines, Drains, and Airways Type Details Placement Removal Peripheral IV 01/02/20; 1300; 20; Right, Anterior; Forearm; LHenrietta London RN; 2; 01/02/20; 1653; Therapy completed; Catheter intact, Dressing applied, No Complications 01/02/20 1300 by Argelia Negron, RN 01/02/20 1653 by Rosa Angulo, UMA Airway Device: LMA; Size: 4 ; Placement Date: 01/02/20; Placement Time: 1502 (created via procedure documentation); Removal Date: 01/02/20; Removal Time: 1532 01/02/20 1502 by Barber Oates CRNA 01/02/20 1532 by Barber Oates CRNA documented in this encounter Social History Tobacco Use Types Packs/Day Years [...] have Coronavirus / COVID-19? No / Unsure 01/02/2020 12:48 PM EDT documented as of this encounter Functional Status * Is the person deaf or does he/she have serious difficulty hearing? Answer Date of Assessment Author No 12/08/2019 8:58 AM EDTomi José CCMA * Is the person blind or does he/she have serious difficulty seeing even when wearing glasses? Answer Date of Assessment Author No 12/08/2019 8:58 AM EDTomi José CCMA * Does this person have serious difficulty walking or climbing stairs? Answer Date of Assessment Author No 12/08/2019 8:58 AM EDTomi José CCMA * Does this person have difficulty dressing or bathing? Answer Date of Assessment Author No 12/08/2019 8:58 AM EDTomi José CCMA * Because of [...] Entry Date Author No 12/08/2019 8:58 AM EDTomi José CCMA documented in this encounter Procedure Notes * Barber Oates CRNA - 01/02/2020 3:02 PM EDTAssociated Order(s): Airway Intraop Airway Placement: Induction type: IV Mask size: Standard adult Pre-Oxygenation: Standard Mask ventilation: Not attempted Airway type: LMA Device size: 4 Placement verified: End tidal CO2 Condition: Atraumatic and Unchanged Insertion attempts: 1 Attempt 1 by: TH Title: [facility] documented in this encounter OR Notes * Anesthesia Postprocedure Evaluation - Bruce Delgado MD - 01/02/2020 5:25 PM EDT Post-Anesthesia Evaluation Note Patient Name: Stella Hylton Patient Date: January 02, 2020 Post-Anesthesia Evaluation Patient Location: PACU Post op vitals: stable Nausea controlled: yes Level of consciousness: awake, alert and oriented Post anesthesia pain: adequate analgesia Long acting local anesthetic: n/a Airway patency: patent Respiratory status: spontaneous ventilation Cardiovascular status: stable Hydration status: euvolemic Perioperative complications: NONE Vitals: 01/02/20 1659 BP: 126/63 Pulse: 75 Resp: 16 Temp: SpO2: 99% * Anesthesia Preprocedure Evaluation - Yaakov Solorio MD - 12/20/2019 2:25 PM EDT Pre-Anesthesia Evaluation Note Patient Name: Stella Hylton Sex: female Patient : 1945 Age: 74 y.o. Patient Date: December 20, 2019 Procedure(s): cystoscopy, right ureteroscopy, laser lithotripsy, right stent placement Anesthesia Evaluation Previous anesthesia. 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 10/29 EKG SR with SA Body mass index is 34.77 kg/m??. Anesthesia Plan ASA 2 Anesthesia Plan: general Induction: intravenous Monitors: STD emend PONV Risk Score: 5. Score of 3 or more is High Risk for PONV, combination antiemetic prophylaxis isindicated. Informed consent Anesthetic plan and risks discussed with: patient. Chart Reviewed and patient examined documented in this encounter Plan of Treatment Upcoming Encounters Date Type Department Care Team (Late st Contact Info) Description 05/16/2024 9:30 AM EST Office Visit [facility] [address] [place] [id number] Gilda Francis PA [address] [place] [address] documented as of this encounter Procedures Procedure Name Priority Date/Time Associated Diagnosis Comments INTRAOP AIRWAY PLACEMENT Routine 01/02/2020 3:02 PM EDT documented in this encounter Results * INTRAOP AIRWAY PLACEMENT (01/02/2020 3:02 PM EDT) Narrative [facility] - 01/02/2020 3:02 PM EDT Barber Oates CRNA ? 01/02/2020 ??3:02 PM Intraop Airway Placement: ??Induction type: ??IV ??Mask size: ??Standard adult ??Pre-Oxygenation: ??Standard ??Mask ventilation: ??Not attempted ??Airway type: ??LMA ??Device size: ??4 ??Placement verified: ??End tidal CO2 ??Condition: ??Atraumatic and Unchanged ??Insertion attempts: ??1 ??Attempt 1 by: TH ??Title: ??[facility] us London Cheng MD [place] ANESTHESIA Final Result [facility] [address] [place] [address] documented in this encounter Visit Diagnoses Not on filedocumented in this encounter Administered Medications Inactive Administered Medications - up to 1 most recent administrations Medication Order MAR Action Action Date Dose Rate Site ceFAZolin (ANCEF) IVPB 2 g 2 g, Intravenous, ONCE PREPROCEDURE, 1 dose, On Thu01/02/20 at 1245, Administer over 30 Minutes Given 01/02/2020 2:52 PM EDT 2 g dexamethasone (DECADRON) injection Intravenous, PRN (Anesthesia), Starting on Thu01/02/20 at 1459, Until Thu01/02/20 at 1542, Anesthesia Intra-op Given 01/02/2020 2:59 PM EDT 4 mg ePHEDrine injection Intravenous, PRN (Anesthesia), Starting on Thu01/02/20 at 1509, Until Thu01/02/20 at 1542, Anesthesia Intra-op Given 01/02/2020 3:19 PM EDT 10 mg fentaNYL (SUBLIMAZE) injection Intravenous, PRN (Anesthesia), Starting on Thu01/02/20 at 1449, Until Thu01/02/20 at 1542, Anesthesia Intra-op Given 01/02/2020 3:14 PM EDT 25 mcg glycopyrrolate (ROBINUL) injection PRN (Anesthesia), Starting on Thu01/02/20 at 1506, Until Thu01/02/20 at 1542, Anesthesia Intra-op Given 01/02/2020 3:06 PM EDT 0.2 mg lidocaine 1% 10 mg/mL (1 %) injection Intravenous, PRN (Anesthesia), Starting on Thu01/02/20 at 1449, Until Thu01/02/20 at 1542, Anesthesia Intra-op Given 01/02/2020 2:49 PM EDT 50 mg midazolam (VERSED) injection Intravenous, PRN (Anesthesia), Starting on Thu01/02/20 at 1446, Until Thu01/02/20 at 1542, Anesthesia Intra-op Given 01/02/2020 2:46 PM EDT 2 mg ondansetron (ZOFRAN) injection Intravenous, PRN (Anesthesia), Starting on Thu01/02/20 at 1459, Until Thu01/02/20 at 1542, Anesthesia Intra-op Given 01/02/2020 2:59 PM EDT 4 mg phenylephrine injection PRN (Anesthesia), Starting on Thu01/02/20 at 1459, Until Thu01/02/20 at 1542, Anesthesia Intra-op Given 01/02/2020 2:59 PM EDT 100 mcg propofoL (DIPRIVAN) injection Intravenous, PRN (Anesthesia), Starting on Thu01/02/20 at 1449, Until Thu01/02/20 at 1542, Anesthesia Intra-op Given 01/02/2020 2:49 PM EDT 150 mg documented in this encounter Additional Health Concerns Infection Onset Date Last Indicated Resolved Time ESBL organism 11/16/2019 11/16/2019 03/28/2022 1:0 5 PM EST Assessment Noted Time A fall risk assessment has been complete d for the patient 12/08/2019 8:58 AM EDT documented as of this encounter Care Teams Epic Cupid Analyst Relationship Specialty Start Date End Date Mann Irene MD [address] [place] [address] PCP - General Internal Medicine 08/23/12 07/13/22 documented as of this encounter
--- OUTSIDE RECORDS SUMMARY | 2024-03-27 15:02 | XMS_ITS | Encounter Summary ---
Author Organization [facility] [place] [address] Care Team Providers Care Communications Clerk Name Role Phone Mann Irene MD Primary Care Provider [phone] Encounter Details Date Type Department Care Team (Latest Contact Info) Description 12/29/2019 Travel Social History Tobacco Use Types Packs/Day Years Used Date Smoking Tobacco: Former Cigarettes 0.5 5 Smokeless Tobacco: Never Comments:quit in 1998 Alcohol [...] have Coronavirus / COVID-19? No / Unsure 12/29/2019 10:03 AM EDT documented as of this encounter [...] EST Office Visit [facility] [address] [place] [id number] Gilda Francis PA [address] [place] [address] documented as of this encounter Visit Diagnoses Not on filedocumented in this encounter Additional Health Concerns Infection Onset Date Last Indicated Resolved Time ESBL organism 11/16/2019 11/16/2019 03/28/2022 1:0 5 PM EST Assessment Noted Time A fall risk assessment has been complete d for the patient 12/08/2019 8:58 AM EDT documented as of this encounter Care Teams Communications Clerk Relationship Specialty Start Date End Date Mann [place] [address] [place] [phone] PCP - General Internal Medicine 08/23/12 07/13/22 documented as of this encounter
--- OUTSIDE RECORDS SUMMARY | 2024-03-27 15:02 | XMS_ITS | Encounter Summary ---
Author Organization [place] [address] Care Team Providers Care Modeling Manager Name Role Phone Mann Irene MD Primary Care Provider Encounter Details Date Type Department Care Team (Latest Contact Info) Description 12/05/2019 11:05 AM EDT - 12/05/2019 11:59 PM EDT Hospital Encounter GRT XRAY [address] [facility]. [place] [id number] Urine culture positive; Hypercholesterolemi a Discharge Disposition: Home or Self Care Social History Tobacco Use Types Packs/Day Years Used Date Smoking Tobacco: Former Cigarettes 0.5 5 Smokeless Tobacco: Never Comments:quit in 1998 Alcohol Use Standard Drinks/Week Comments No 0 (1 standard drink = 0.6 oz pur e alcohol) PHQ-2 Answer Date Recorded PHQ-2 Score 0 10/01/2018 Comments No Sex and Gender Information Value Date Recorded Sex Assigned at Not on file Legal Sex Female 5:30 PM EDT Gender Identity Not on file Sexual Orientation Not on file COVID-19 Exposure Response Date Recorded In the last month, have you been in contact with someone who was confirmed or suspected to have Coronavirus / COVID-19? No / Unsure 12/05/2019 11:01 AM EDT documented as of this encounter Functional Status * Is the person deaf or does he/she have serious difficulty hearing? Answer Date of Assessment Author No 12/06/2018 7:32 AM EDT Tomi Slaughter CCMA * Is the person blind or does he/she have serious difficulty seeing even when wearing glasses? Answer Date of Assessment Author No 12/06/2018 7:32 AM EDDavin KellyTomi olson CCMA * Does this person have serious difficulty walking or climbing stairs? Answer Date of Assessment Author No 12/06/2018 7:32 AM EDDavin Kellywesley CLAUDIA Garcia * Does this person have difficulty dressing or bathing? Answer Date of Assessment Author No 12/06/2018 7:32 AM EDDavin KellyTomi olson CCMA * Because of a physical, mental or emotional condition, does this person have difficulty doing errands alone such as visiting a doctor's office or shopping? Answer Date of Assessment Author No 12/06/2018 7:32 AM KUSH Tomi Slaughter CCMA documented as of this encounter Mental Status * Because of a physical, mental or emotional condition, does this person have serious difficulty concentrating, remembering or making decisions? Answer Entry Date Author No 12/06/2018 7:32 AM Tomi Huggins CCMA documented in this encounter Medications at Time of Discharge atorvastatin (LIPITOR) 10 mg Oral TabletIndications:Pure hypercholesterolemia TAKE 1 TABLET EVERY DAY 90 Tab 9 12/09/19 20 ergocalciferol (VITAMIN D) 50,000 unit Oral Capsule Take 1 Cap by mouth once a week. 12 Cap 3 9 02/06/20 20 HYDROcodone-acetaminophen (NORCO) 5-325 mg Oral Tablet Take 1 Tab by mouth every 4 hours as needed for Major Surgery/Tra risa (G89.18) for up to 10 days. 30 Tab 0 12/08/19 20 tamsulosin (FLOMAX) 0.4 mg Oral Capsule Take 1 Cap by mouth nightly. 30 Cap 0 12/21/19 20 documented as of this encounter Discharge Disposition Disposition Code Departure Means Destination Home or Self Care documented in this encounter Plan of Treatment Upcoming Encounters Date Type Department Care Team (Late st Contact Info) Description 05/16/2024 9:30 AM EST Office Visit [facility] [address] [place] [address] Gilda Francis PA [address] [place] [address] documented as of this encounter Procedures Procedure Name Priority Date/Time Associated Diagnosis Comments XR ABDOMEN AP Routine 12/05/2019 11:18 AM EDT Urine culture positive Hypercholesterolemia documented in this encounter Results * XR ABDOMEN AP (12/05/2019 11:18 AM EDT) Anatomical Region Laterality Modality Abdomen Radiographic Demetra ging 12/05/2019 11:1 8 AM EDT Impressions 12/05/2019 12:06 PM EDT Interval placement right ureteral stent. Inferior pole right renal calculus essentially stable. - Narrative 12/05/2019 12:06 PM EDT CR, ABDOMEN AP, ??12/05/2019 11:18 AM CLINICAL HISTORY: ??R82.79-Other abnormal findings on microbiological examination of [id number]-SAH-16-CM E78.00-Pure hypercholesterolemia, [id number] COMPARISON: ??CT 10/31/2019 PROCEDURE COMMENTS: ??AP view(s) [...] HISTORY: R82.79-Other abnormal findings on microbiologicalexamination of [id number]-TZU-05-CM E78.00-Pure hypercholesterolemia, [id number]-[id number]-CM COMPARISON: CT 10/31/2019 PROCEDURE COMMENTS: AP view(s) of the abdomen per protocol. FINDINGS: Right ureteral stent in place. Stone or cluster of stones inferior poleright kidney measuring 11 mm stable. No stones along the course of the stent.No left-sided calculi evident. Bowel gas pattern nonspecific. IMPRESSION: Interval placement right ureteral stent. Inferior pole right renal calculus essentially stable. - us Amari Wheeler MD IMG DIAGNOSTIC IMAGING ORDERABLE S Final Result documented in this encounter Visit Diagnoses Diagnosis Urine culture positive Other nonspecific finding on examination of urine Hypercholesterolemia Pure hypercholesterolemia documented in this encounter Additional Health Concerns Infection Onset Date Last Indicated Resolved Time ESBL organism 11/16/2019 11/16/2019 03/28/2022 1:0 5 PM EST Assessment Noted Time A fall risk assessment has been complete d for the patient 12/06/2018 7:30 AM EDT documented as of this encounter Care Teams Modeling Manager Relationship Specialty Start Date End Date Mann Irene MD [address] [place] [phone] PCP - General Internal Medicine 08/23/12 07/13/22 documented as of this encounter
--- OUTSIDE RECORDS SUMMARY | 2024-03-27 15:02 | XMS_ITS | Encounter Summary ---
Author Organization [place] [address] Care Team Providers Care Consulting Services Project Manager Name Role Phone Mann Irene MD Primary Care Provider [phone] Reason for Referral * (Routine) - Closed Specialty Diagnoses / Procedures Referred By Ramona mcdaniel Referred To Contact Diagnoses Nephrolithiasis Procedures AMB URO SURGERY COMM ORDER Amari Wheeler MD Phone: tel: fax: Referral ID Status Reason Start Date Expiration Date Visits Re quested Visits Authorized [id number] Closed 12/14/2019 12/13/2020 1 1 Reason for Visit * Reason Comments Other pt stated that she i s here to go over results of kub, pt stated that maybe the stent will be removed. pt stated that her back is hurting her. pt stated that her pain is a 6 or 7 out of 10. * In Office Procedure (Routine) - Closed Specialty Diagnoses / Procedures Referred By Ramona mcdaniel Referred To Contact Urology Diagnoses cysto with stent removal with kub prior Procedures PA CYSTOSCOPY,REMV CALCULUS,SIMPLE PROCEDURE Amari Wheeler MD Phone: tel: fax: Amari Wheeler MD [address] [place] [address] Phone: tel: fax: Referral ID Status Reason Start Date Expiration Date Visits Re quested Visits Authorized [id number] Closed 12/13/2019 01/13/2020 1 1 Encounter Details Date Type Department Care Team (Latest Contact Info) Description 12/14/2019 2:00 PM EDT Procedure visit [facility] [address] [place] [address] Amari Wheeler MD [address] [place] [address] Nephrolithiasis (Primary Dx) Social History Tobacco Use Types [...] have Coronavirus / COVID-19? No / Unsure 12/14/2019 1:24 PM EDT documented as of this encounter Last Filed Vital Signs Vital Sign Reading Time Taken Comments Blood Pressure 120/68 12/14/2019 1:33 PM EDT Pulse - - Temperature 36.1 ??C (97 ??F) 12/14/2019 1:33 PM EDT Respiratory Rate - - Oxygen Saturation - - Inhaled Oxygen Concentration - - Weight 83.5 kg (184 lb) 12/14/2019 1:33 PM EDT Height 154.9 cm (5' 1 ) 12/14/2019 1:33 PM EDT Body Mass Index 34.77 12/14/2019 1:33 PM EDT documented in this encounter Functional Status * Is the person deaf or does he/she have serious difficulty hearing? Answer Date of Assessment Author No 12/08/2019 8:58 AM EDT Tomi Slaughter CCMA * Is the person blind or does he/she have serious difficulty seeing even when wearing glasses? Answer Date of Assessment Author No 12/08/2019 8:58 AM KUSH Slaughter Tomi CLAUDIA knutson * Does this person have serious difficulty walking or climbing stairs? Answer Date of Assessment Author No 12/08/2019 8:58 AM KUSH Slaughter Tomi ASHLEY knutsonElver * Does this person have difficulty dressing or bathing? Answer Date of Assessment Author No 12/08/2019 8:58 AM KUSH Slaughter Tomi ASHLEY knutsonElver * Because of a physical, mental or emotional condition, does this person have difficulty doing errands alone such as visiting a doctor's office or shopping? Answer Date of Assessment Author No 12/08/2019 8:58 AM KUSH SlaughterTomi CCMElver documented as of this encounter Mental Status * Because of a physical, mental or emotional condition, does this person have serious difficulty concentrating, remembering or making decisions? Answer Entry Date Author No 12/08/2019 8:58 AM KUSH KellyTomi olson CCMElver documented in this encounter Progress Notes * Amari Wheeler MD - 12/14/2019 2:00 PM EDT [facility] Urology Established Patient E&M Stella Hylton 1945 Allergies Allergen Reactions ??? Celecoxib Rash Chief Complaint(s): Chief Complaint Patient presents with ??? Other pt stated that she is here to go over results of kub, pt stated that maybe the stent will be removed. pt stated that her back is hurting her. pt stated that her pain is a 6 or 7 out of 10. HPI: 74 y.o. female No specialty comments available. Reviewed and up to date Here to discuss next steps PVR by bladder scanner- NA No results found for this visit on 12/14/19. Past Medical History: Past Medical History: Diagnosis Date ??? Allergy ??? Arthritis generalized ??? Does use hearing aid bilateral ??? Hyperlipidemia ??? Kidney stone hx of ??? Motion sickness seasick ??? Osteopenia ??? Urinary tract infection frequent UTI's Past Surgical History: Past Surgical History: Procedure Laterality Date ??? BLADDER TUMOR EXCISION N/A 10/26/2019 cystoscopy, bladder biopsy and fulguration of lesions of bladder; Surgeon: Amari Wheeler MD; Location: [facility]; Service: Urology ??? CATARACT REMOVAL Right 02/28/2019 RIGHT EYE CATARACT EXTRACTION WITH PHACOEMULSIFICATION AND INTRAOCULAR LENS; Surgeon: Conor Ramirez MD; Location: [facility]; Service: Ophthalmology ??? CATARACT REMOVAL Left 03/14/2019 LEFT EYE CATARACT EXTRACTION WITH PHACOEMULSIFICATION AND INTRAOCULAR LENS; Surgeon: Conor Ramirez MD; Location: [facility]; Service: Ophthalmology ??? COLONOSCOPY ??? CYSTOSCOPY Right 11/28/2019 cystoscopy right stent placement, right extracorporeal shock wave lithotripsy; Surgeon: Dinh Wheeler MD; Location: [facility]; Service: Urology ??? HEMORRHOID SURGERY ??? HIP ARTHROPLASTY Right 02/16/2014 RIGHT TOTAL HIP REPLACEMENT; Surgeon: Bruce Oh MD; Location: [facility]; Service: Orthopedics ??? HYSTERECTOMY complete ??? LITHOTRIPSY Right 11/28/2019 Surgeon: Amari Wheeler MD; Location: [facility]; Service: Urology ??? LUMBAR DISC SURGERY 11/03/2012 Surgeon: Elza Bautista MD; Location: [facility]; Service: ??? TOTAL KNEE ARTHROPLASTY Left 12/28/2018 left knee total replacement; Surgeon: Bruce Oh MD; Location: [facility]; Service: Orthopedics Current Outpatient Medications: Current Outpatient Medications on File Prior to Visit Medication Sig Dispense Refill ??? aspirin 81 mg Oral Tablet, Delayed Release (E.C.) Take 1 Tab by mouth every morning. ??? atorvastatin (LIPITOR) 10 mg Oral Tablet TAKE 1 TABLET EVERY DAY 90 Tab 0 ??? diclofenac (VOLTAREN) 75 mg Oral Tablet, Delayed Release (E.C.) TAKE 1 TAB BY MOUTH 2 TIMES DAILY (WITH MEALS) 60 Tab 0 ??? ergocalciferol (VITAMIN D) 50,000 unit Oral Capsule Take 1 Cap by mouth once a week. 12 Cap 3 ??? loratadine-pseudoephedrine (LORATADINE-PSEUDOEPHEDRINE) 10-240 mg Oral Tablet Sustained Iijqmsf60 hr Take 1 Tab by mouth daily. 30 Tab 2 ??? tamsulosin (FLOMAX) 0.4 mg Oral Capsule Take 1 Cap by mouth nightly. 30 Cap 0 No current facility-administered medications on file prior to visit. Allergies: Allergies Allergen Reactions ??? Celecoxib Rash Constitutional: Fever No Weight loss No Fatigue No Genitourinary: Sex issues no Pelvic Pain no Frequent infxn no Today???s Brief PE: Vital Signs: BP 120/68 (BP Location: Right arm, Patient Position: Sitting) Temp 97 ??F (36.1 ??C) Ht 5' 1 (1.549 m) Wt 184 lb (83.5 kg) LMP (LMP Unknown) BMI 34.77 kg/m?? No PE required Data: POCT Urinalysis: Labs: No results found for: WBC, HGB, HCT, MCV, PLT No results found for: CREATININE, BUN, NA, K, CL, CO2 No results found for: PSA No results found for this visit on 12/14/19. Imaging: Imaging studies (both written report and images on file) were reviewed in [email or web address], if pertinent see plan Existing Medical Record: Progress Notes, Consults and miscellaneous records were reviewed in [email or web address] and pertinent positives are: see synopsis Outside paper records reviewed: none Diagnoses: No diagnosis found. Plan: S/P eswl Stone not gone Needs ureteroscopy Nephrolithiasis Discussed all options with patient including active surveillance, ESWL, ureteroscopy, and PCNL. Discussed risks of active surveillance including worsening kidney function, increasing stone size, infection. ESWL has significant advantages over scope procedures in that no device enters the body so device related complications do not occur. The stone free success rates are slightly lower for ESWL comparedto ureteroscopy, especially for calculi larger than 1cm. Complications include infection, bleeding or bruising of the kidney, pain, failure to remove the stone and, rarely, severe bleeding around thekidney potentially requiring radiologic intervention to stop bleeding, blood transfusion and, very rarely, nephrectomy. Late complications include high blood pressure and reduced kidney function if multiple ESWL treatments are given. Discussed complications of ureteroscopy include bleeding, post operative obstruction requiring replacement of stent, infection, pain, failure to remove the stone, injury to the bladder or ureter withimmediate or delayed scarring with obstruction and the rare risk of catastrophic ureteral injury necessitating nephrostomy tube placement or nephrectomy. Late complications include scarring of the ureter with obstruction which , if not identified, can result in permanent kidney damage and possibly nephrectomy. Discussed complications of PCNL, though has the highest rate of stone clearance is the most invasive procedure. Complications include infection, bleeding or bruising of the kidney, pain, failure to remove the stone and, rarely, severe bleeding around the kidney potentially requiring radiologic intervention to stop bleeding, blood transfusion and, very rarely, nephrectomy. Late complications include high blood pressure and reduced kidney function Given stone size patient would like to proceed with right ureteroscopy and laser lithotripsy. Amari Wheeler MD [facility] Urology [address] [place] [address] 12/14/2019 1:38 PM documented in this encounter Miscellaneous Notes * Addendum Note - Oralia Lizama MA - 12/14/2019 2:00 PM EDTAddended by: ORALIA LIZAMA on: 12/19/2019 03:57 PM Modules accepted: Orders documented in this encounter Plan of Treatment Upcoming Encounters Date Type Department Care Team (Late st Contact Info) Description 05/16/2024 9:30 AM EST Office Visit [facility] [address] [place] [address] Gilda Francis PA [address] [place] [address] Scheduled Orders Name Type Priority Associated Diagnoses Orde r Schedule SURGICAL/PROCEDURE CASE REQUEST Procedures Routine Nephrolithiasis Ordered: 12/19/2019 documented as of this encounter Visit Diagnoses Diagnosis Nephrolithiasis- Primary Calculus of kidney documented in this encounter Orders Nursing Count Last Ordered Date First Orde red Date AMB URO SURGERY COMM ORDER 1 12/14/2019 documented in this encounter Additional Health Concerns Infection Onset Date Last Indicated Resolved Time ESBL organism 11/16/2019 11/16/2019 03/28/2022 1:0 5 PM EST Assessment Noted Time A fall risk assessment has been complete d for the patient 12/08/2019 8:58 AM EDT documented as of this encounter Care Teams Consulting Services Project Manager Relationship Specialty Start Date End Date Mann Irene MD [address] [place] [phone] PCP - General Internal Medicine 08/23/12 07/13/22 documented as of this encounter
--- OUTSIDE RECORDS SUMMARY | 2024-03-27 15:02 | XMS_ITS | Encounter Summary ---
Author Organization [facility] [place] [address] Care Team Providers Care Waste Management Recycling Technician Name Role Phone Mann Irene MD Primary Care Provider [phone] Encounter Details Date Type Department Care Team (Latest Contact Info) Description 03/23/2020 Travel Social History Tobacco Use Types Packs/Day [...] have Coronavirus / COVID-19? No / Unsure 03/23/2020 7:50 AM EST documented as of this encounter Functional Status * Is the person deaf or does he/she have serious difficulty hearing? Answer Date of Assessment Author No 12/08/2019 8:58 AM EDT Tomi Slaughter CCMA * Is the person blind or does he/she have serious difficulty seeing even when wearing glasses? Answer Date of Assessment Author No 12/08/2019 8:58 AM CAITT Tomi Slaughter CCMA * Does [...] EST Office Visit [facility] [address] [place] [phone] Gilda Francis PA [address] [place] [address] documented as of this encounter Visit Diagnoses Not on filedocumented in this encounter Additional Health Concerns Infection Onset Date Last Indicated Resolved Time ESBL organism 11/16/2019 11/16/2019 03/28/2022 1:0 5 PM EST Assessment Noted Time A fall risk assessment has been complete d for the patient 12/08/2019 8:58 AM EDT documented as of this encounter Care Teams Waste Management Recycling Technician Relationship Specialty Start Date End Date Mann Irene MD [address] [place] [phone] PCP - General Internal Medicine 08/23/12 07/13/22 documented as of this encounter
--- OUTSIDE RECORDS SUMMARY | 2024-03-27 15:02 | XMS_ITS | Encounter Summary ---
Author Organization [place] [address] Care Team Providers Care Pediatric Np Name Role Phone Mann Irene MD Primary Care Provider [phone] Reason for Visit * Reason Comments Labs Only Encounter Details Date Type Department Care Team (Late st Contact Info) Description 03/23/2020 8:00 AM EST Clinical Support [facility] [address] [place] [id number] Jill Beck E [address] [place] [address] Malaise and fatigue; Vitamin D deficiency; Recurrent UTI (urinary tract infection) Social History Tobacco Use Types Packs/Day Years [...] Assessment Author No 12/08/2019 8:58 AM CAITDavin SukhjinderTomi CCMElver * Is the person blind or does he/she have serious difficulty seeing even when wearing glasses? Answer Date of Assessment Author No 12/08/2019 8:58 AM EDT Sukhjinder Tomi eamon ASHLEYA * Does this person have serious difficulty walking or climbing stairs? Answer Date of Assessment Author No 12/08/2019 8:58 AM EDT SukhjinderTomi ASHLEYA * Does this person have difficulty dressing or bathing? Answer Date of Assessment Author No 12/08/2019 8:58 AM EDT Sukhjinder Tomi eamon ASHLEYA * Because of a physical, mental or emotional condition, does this person have difficulty doing errands alone such as visiting a doctor's office or shopping? Answer Date of Assessment Author No 12/08/2019 8:58 AM EDDavin SlaughterTomi ASHLEYA documented as of this encounter Mental Status * Because of a physical, mental or emotional condition, does this person have serious difficulty concentrating, remembering or making decisions? Answer Entry Date Author No 12/08/2019 8:58 AM KUSH Slaughter Tomi eamon ASHLEYA documented in this encounter Progress Notes * Jill Beck - 03/23/2020 8:00 AM EST Venipuncture in the right antecubital vein with 21 gauge needle, length 1 1/2 inch. documented in this encounter Plan of Treatment Upcoming Encounters Date Type Department Care Team (Late st Contact Info) Description 05/16/2024 9:30 AM EST Office Visit [facility] [address] [place] [address] Gilda Francis PA [address] [place] [address] documented as of this encounter Procedures Procedure Name Priority Date/Time Associated Diagnosis Comments SARS-COV-2 IGG Routine 03/23/2020 7:53 AM EST Malaise and fatigue VITAMIN D 25 HYDROXY Routine 03/23/2020 7:53 AM EST Malaise and fatigue Vitamin D deficiency CBC WITH DIFF Routine 03/23/2020 7:53 AM EST Malaise and fatigue URINE CULTURE (NO STAIN) Routine 03/23/2020 7:53 AM EST Recurrent UTI (urinary tract infection) THYROID STIMULATING HORMONE Routine 03/23/2020 7:53 AM EST Malaise and fatigue COMPREHENSIVE METABOLIC PANEL Routine 03/23/2020 7:53 AM EST Malaise and fatigue documented in this encounter Results * SARS-COV-2 IGG (03/23/2020 7:53 AM EST) SARS-CoV-2 IgG (Nucleocapsid) Negative 03/23/2020 5:30 PM EST [facility] Blood VENOUS BLOOD / Unknown Venipuncture / Unknown 03/23/2020 7:53 AM EST 03/23/2020 7:54 AM EST Narrative [facility] - 03/23/2020 5:30 PM EST The SARS-CoV-2 [...] protective immunity. [employer] Provider Fact Sheet: https://www.fda.gov/media/529902/download [facility] Patient Fact Sheet: ??https://www.fda.gov/media/132089/download Ramandeep Hari MANAGER OF [employer] IMMUNOLOGY ORDERABLES Final Result [facility] [address] [facility] [facility] , [place] [address] * (ABNORMAL) URINE CULTURE (NO STAIN) (03/23/2020 7:53 AM EST) Culture Positive Growth(A) 03/25/2020 7:58 AM EST [facility] Culture >[id number] CFU/mL Escherichia coli SUSCEPTIBI LITY RESULT 03/25/2020 7:58 AM EST [facility] Urine URINE SPECIMEN COLLECTION, CLEAN CATCH / Unknown 03/23/2020 7:53 AM EST 03/23/2020 7:54 AM EST Narrative Organism Antibiotic Method Susceptibility Escherichia coli Amikacin SUSCEPTIBILITY RESULT <=16 ug/mL: Susceptible Escherichia coli Amoxicillin/Clavulanate SUSCEPTIBILIT Y RESULT <=4/2 ug/mL: Susceptible Escherichia coli Ampicillin SUSCEPTIBILITY RESULT <=8 ug/mL: Susceptible Escherichia coli Ampicillin/Sulbactam SUSCEPTIBILITY R ESULT 2/1 ug/mL: Susceptible Escherichia coli Aztreonam SUSCEPTIBILITY RESULT <=4 ug/mL: Susceptible Escherichia coli Cefazolin SUSCEPTIBILITY RESULT <=2 ug/mL: Susceptible Escherichia coli Cefepime SUSCEPTIBILITY RESULT Escherichia coli Cefotaxime SUSCEPTIBILITY RESULT Escherichia coli Cefoxitin SUSCEPTIBILITY RESULT <=8 ug/mL: Susceptible Escherichia coli Ceftazidime SUSCEPTIBILITY RESULT Escherichia coli Ceftriaxone SUSCEPTIBILITY RESULT Escherichia coli Cefuroxime SUSCEPTIBILITY RESULT Escherichia coli Ciprofloxacin SUSCEPTIBILITY RESULT <=1 ug/mL: Susceptible Escherichia coli Ertapenem SUSCEPTIBILITY RESULT <=0.5 ug/mL: Susceptible Escherichia coli Gentamicin SUSCEPTIBILITY RESULT <=1 ug/mL: Susceptible Escherichia coli Imipenem SUSCEPTIBILITY RESULT <=0.5 ug/mL: Susceptible Escherichia coli Levofloxacin SUSCEPTIBILITY RESULT <=0.25 ug/mL: Susceptible Escherichia coli Meropenem SUSCEPTIBILITY RESULT <=1 ug/mL: Susceptible Escherichia coli Nitrofurantoin SUSCEPTIBILITY RESULT <=32 ug/mL: Susceptible Escherichia coli Piperacillin/Tazobactam SUSCEPTIBILIT Y RESULT <=4 ug/mL: Susceptible Escherichia coli Tetracycline SUSCEPTIBILITY RESULT <=4 ug/mL: Susceptible Escherichia coli Tigecycline SUSCEPTIBILITY RESULT Escherichia coli Tobramycin SUSCEPTIBILITY RESULT <=1 ug/mL: Susceptible Escherichia coli Trimethoprim/Sulfame tho xazole SUSCEPTIBILITY RESULT <=2/38 ug/mL: Susceptible Ramandeep Noriega APRN MICROBIOLOGY - GENERAL ORDE RABLES Final Result Performing Organization Address [facility] Co de Phone Number [facility] [address] , [place] [address] * VITAMIN D 25 HYDROXY (03/23/2020 7:53 AM EST) Pathologist [facility] Vit D 25 OH 32.6 30.0 - 120.0 ng/mL 03/23/2020 8:14 PM EST [facility] Comment: INTERPRETIVE INFORMATION: ??Vitamin D, 25-Hydroxy <20 ng/mL ?Deficiency 20 - 29 ng/mL ?Insufficiency 30 - 80 ng/mL ?Optimum Level >120 ng/mL ? Possible Toxicity NOTE: For infants and children up to 17 years of age, the optimum level is >=20 ng/mL. This assay accurately quantifies the sum of vitamin D3, 25-Hydroxy and vitamin D2, 25-Hydroxy. Blood Venipuncture / Unknown 03/23/2020 7:53 AM EST 03/23/2020 7:54 AM EST Ramandeep Noriega APRN CHEMISTRY ORDERABLES Final Result Performing Organization Address [facility] Co de Phone Number [facility] [address] , [place] [address] * THYROID STIMULATING HORMONE (03/23/2020 7:53 AM EST) Pathologist [facility] TSH 0.629 0.270 - 4.200 mcIU/mL 03/23/2020 4:58 PM EST [facility] Blood VENOUS BLOOD / Unknown Venipuncture / Unknown 03/23/2020 7:53 AM EST 03/23/2020 7:54 AM EST Narrative [facility] - 03/23/2020 4:58 PM EST Ingestion of lakshmi doses of biotin (>5 mg/day) taken within 8 hours of drawing blood sample can interfere with this immunoassay test. Ramandeep Noriega MANAGER OF [employer]TERPR[employer] CHEMISTRY ORDERABLES Final Result [facility] [address] [facility] [facility] , [address] [place] [id number] * (ABNORMAL) COMPREHENSIVE METABOLIC PANEL (03/23/2020 7:53 AM EST) Sodium 142 136 - 145 mmol/L 03/23/2020 4:58 PM EST [facility] Potassium 4.2 3.5 - 5.0 mmol/L 03/23/2020 4:58 PM EST [facility] Chloride 106 98 - 107 mmol/L 03/23/2020 4:58 PM EST [facility] Total CO2 28 22 - 29 mmol/L 03/23/2020 4:58 PM EST [facility] Anion Gap 8 7 - 16 mmol/L 03/23/2020 4:58 PM EST [facility] Calcium 8.4(L) 8.8 - 10.4 mg/dL 03/23/2020 4:58 PM EST [facility] Glucose Lvl 97 82 - 100 mg/dL 03/23/2020 4:58 PM EST [facility] BUN 16 8 - 23 mg/dL 03/23/2020 4:58 PM EST [facility] Creatinine 0.69 0.51 - 1.30 mg/dL 03/23/2020 4:58 PM EST [facility] Albumin 3.6 3.2 - 4.6 gm/dL 03/23/2020 4:58 PM EST [facility] Total Protein 6.9 6.4 - 8.3 gm/dL 03/23/2020 4:58 PM EST [facility] Bili Total 0.4 0.1 - 1.3 mg/dL 03/23/2020 4:58 PM EST [facility] ALT 12 <=41 U/L 03/23/2020 4:58 PM EST [facility] AST 17 <=40 U/L 03/23/2020 4:58 PM EST [facility] Alk Phos 95 36 - 123 U/L 03/23/2020 4:58 PM EST [facility] GFR Afr Am 101 >=60 mL/min/1.7 3 m2 03/23/2020 4:58 PM EST [facility] GFR Non Afr Am 87 >=60 mL/min/1.7 3 m2 03/23/2020 4:58 PM EST [facility] Comment: This estimated GFR was calculated [...] in nutritional status or muscle mass. Blood VENOUS BLOOD / Unknown Venipuncture / Unknown 03/23/2020 7:53 AM EST 03/23/2020 7:54 AM EST Ramandeep Noriega MANAGER OF [employer]TERPR[employer] CHEMISTRY ORDERABLES Final Result [facility] [address] [facility] , [place] [address] [facility] [address] [place] [address] * CBC WITH DIFF (03/23/2020 7:53 AM EST) WBC 7.9 3.7 - 10.3 x10(3)/mcL 03/23/2020 3:16 PM EST [facility] RBC 4.88 3.90 - 5.20 x10(6)/mcL 03/23/2020 3:16 PM EST [facility] Hgb 13.8 11.2 - 15.7 g/dL 03/23/2020 3:16 PM EST [facility] Hct 44.3 34.0 - 45.0 % 03/23/2020 3:16 PM EST [facility] MCV 90.8 80.0 - 100.0 fL 03/23/2020 3:16 PM EST [facility] MCH 28.3 26.0 - 34.0 pg 03/23/2020 3:16 PM EST [facility] MCHC 31.2 30.7 - 35.5 g/dL 03/23/2020 3:16 PM EST [facility] RDW 13.6 <=14.9 % 03/23/2020 3:16 PM EST [facility] Platelet 300 155 - 369 x10(3)/mcL 03/23/2020 3:16 PM EST [facility] MPV 10.3 8.8 - 12.5 fL 03/23/2020 3:16 PM EST [facility] Neut Percent 59.8 % 03/23/2020 3:16 PM EST [facility] Comment:Neutrophils equals s egs plus bands Imm Gran% 0.3 % 03/23/2020 3:16 PM EST [facility] Comment:Automated count of m etamyelocytes, myelocytes and promyelocytes. Lymph Percent 29.2 % 03/23/2020 3:16 PM EST [facility] [place] Percent 7.5 % 03/23/2020 3:16 PM EST [facility] Eos Percent 2.8 % 03/23/2020 3:16 PM EST [facility] Baso Percent 0.4 % 03/23/2020 3:16 PM EST [facility] Neut # 4.7 1.6 - 6.1 x10(3)/mcL 03/23/2020 3:16 PM EST [facility] Comment:Neutrophils equals s egs plus bands IMMGRAN# 0.0 0.0 - 0.1 x10(3)/mcL 03/23/2020 3:16 PM EST [facility] Comment:Automated count of m etamyelocytes, myelocytes and promyelocytes. An absolute IG <0.1 is reported as 0.0. Lymph # 2.3 1.2 - 3.9 x10(3)/mcL 03/23/2020 3:16 PM EST [facility] [place] # 0.6 0.3 - 0.9 x10(3)/mcL 03/23/2020 3:16 PM EST [facility] Eos# 0.2 0.0 - 0.5 x10(3)/mcL 03/23/2020 3:16 PM EST [facility] Baso # 0.0 0.0 - 0.1 x10(3)/mcL 03/23/2020 3:16 PM EST [facility] Blood Venipuncture / Unknown 03/23/2020 7:53 AM EST 03/23/2020 7:54 AM EST Ramandeep Noriega MANAGER OF [employer]TERPRISE HEMATOLOGY ORDERABLES Final Result [facility] [address] [facility] , [place] [address] documented in this encounter Visit Diagnoses Diagnosis Malaise and fatigue Other malaise and fatigue Vitamin D deficiency Unspecified vitamin D deficiency Recurrent UTI (urinary tract infection) Urinary tract infection, site not specified documented in this encounter Additional Health Concerns Infection Onset Date Last Indicated Resolved Time ESBL organism 11/16/2019 11/16/2019 03/28/2022 1:0 5 PM EST Assessment Noted Time A fall risk assessment has been complete d for the patient 12/08/2019 8:58 AM EDT documented as of this encounter Care Teams Pediatric Np Relationship Specialty Start Date End Date Mann [place] [address] [address] [place] [address] PCP - General Internal Medicine 08/23/12 07/13/22 documented as of this encounter
--- OUTSIDE RECORDS SUMMARY | 2024-03-27 15:02 | XMS_ITS | Encounter Summary ---
Author Organization [facility] [place] [address] Care Team Providers Care Refrigerator Mover Name Role Phone Mann Irene MD Primary Care Provider [phone] Encounter Details Date Type Department Care Team (Latest Contact Info) Description 12/14/2019 Travel Social History Tobacco Use Types Packs/Day [...] EST Office Visit [facility] [address] [place] [phone] Gilda Francis PA [address] [place] [address] documented as of this encounter Visit Diagnoses Not on filedocumented in this encounter Additional Health Concerns Infection Onset Date Last Indicated Resolved Time ESBL organism 11/16/2019 11/16/2019 03/28/2022 1:0 5 PM EST Assessment Noted Time A fall risk assessment has been complete d for the patient 12/08/2019 8:58 AM EDT documented as of this encounter Care Teams Refrigerator Mover Relationship Specialty Start Date End Date Mann [place] [address] [place] [id number] PCP - General Internal Medicine 08/23/12 07/13/22 documented as of this encounter
--- OUTSIDE RECORDS SUMMARY | 2024-03-27 15:02 | XMS_ITS | Encounter Summary ---
Author Organization [place] [address] Care Team Providers Care Contracting Specialist Name Role Phone Mann Irene MD Primary Care Provider [phone] Encounter Details Date Type Department Care Team (Late st Contact Info) Description 12/29/2019 10:05 AM EDT - 12/29/2019 11:59 PM EDT Hospital En[facility] [address] [place] [address] Covid19, [facility] Pre-op testing; Encounter for laboratory testing for COVID-19 virus Discharge Disposition: Home or Self Care Social [...] Author No 12/08/2019 8:58 AM EDT Tomi Slaughter, CLAUDIA * Is the person blind or does he/she have serious difficulty seeing even when wearing glasses? Answer Date of Assessment Author No 12/08/2019 8:58 AM EDT Tomi Slaughter CLAUDIA * Does this person have serious difficulty walking or climbing stairs? Answer Date of Assessment Author No 12/08/2019 8:58 AM EDT Tomi Slaughter CLAUDIA * Does this person have difficulty dressing or bathing? Answer Date of Assessment Author No 12/08/2019 8:58 AM EDT Tomi Slaughter, CALUDIA * Because of a physical, mental or emotional condition, does this person have difficulty doing errands alone such as visiting a doctor's office or shopping? Answer Date of Assessment Author No 12/08/2019 8:58 AM EDT Tomi Slaughter, CLAUDIA documented as of this encounter Mental Status * Because of a physical, mental or emotional condition, does this person have serious difficulty concentrating, remembering or making decisions? Answer Entry Date Author No 12/08/2019 8:58 AM EDTomi José, CLAUDIA documented in this encounter Medications at Time of Discharge atorvastatin (LIPITOR) 10 mg Oral TabletIndications:Pure hypercholesterolemia TAKE 1 TABLET EVERY DAY 90 Tab 0 03/08/20 20 ergocalciferol (VITAMIN D) 50,000 unit Oral Capsule Take 1 Cap by mouth once a week. 12 Cap 3 9 02/06/20 20 HYDROcodone-acetaminophen (NORCO) 5-325 mg Oral Tablet Take 2 Tabs by mouth every 6 hours as needed for Major Surgery/Tra risa (G89.18) for up to 10 days. 20 Tab 0 01/12/20 20 documented as of this encounter Discharge Disposition Disposition Code Departure Means Destination Home or Self Care documented in this encounter Progress Notes * Mann Irene MD - 12/29/2019 10:10 AM EDT Negative COVID testing. documented in this encounter Plan of Treatment Upcoming Encounters Date Type Department Care Team (Late st Contact Info) Description 05/16/2024 9:30 AM EST [facility] [address] [facility] [address] Gilda Francis PA [address] [facility] [place] [address] documented as of this encounter Procedures Procedure Name Priority Date/Time Associated Diagnosis Comments CORONAVIRUS 2019 Routine 12/29/2019 10:0 3 AM EDT Pre-op testing Encounter for laboratory testing for COVID-19 virus documented in this encounter Results * CORONAVIRUS 2019 (12/29/2019 10:03 AM EDT) Pathologist [facility] CORONAVIRUS [id number] Not Detected Not Detected 12/29/2019 11:33 PM EDT [facility] Comment:Caution should be ex ercised when interpreting [...] AM EDT 12/29/2019 10:03 AM EDT Narrative [facility] - 12/29/2019 11:33 PM EDT This test is a nucleic acid amplification test intended for the qualitative detection of nucleic acid from the SARS-CoV-2 in upper respiratory samples collected from individuals suspected of COVID-19. Test is performed on the [employer] platform under the FDA's Emergency Use Authorization (EUA). [facility] Provider Fact Sheet: https://www.fda.gov/media/718793/download [facility] Patient Fact Sheet: ??https://www.fda.gov/media/155437/download Amari Wheeler MD MICROBIOLOGY - GENERAL ORDERABLE S Final Result [facility] [address] [facility] , [address] [place] [address] documented in this encounter Visit Diagnoses Diagnosis Pre-op testing Preoperative examination, unspecified Encounter for laboratory testing for COVID-19 virus documented in this encounter Additional Health Concerns Infection Onset Date Last Indicated Resolved Time ESBL organism 11/16/2019 11/16/2019 03/28/2022 1:0 5 PM EST Assessment Noted Time A fall risk assessment has been complete d for the patient 12/08/2019 8:58 AM EDT documented as of this encounter Care Teams Contracting Specialist Relationship Specialty Start Date End Date Mnan Irene MD [address] [place] [address] PCP - General Internal Medicine 08/23/12 07/13/22 documented as of this encounter
--- OUTSIDE RECORDS SUMMARY | 2024-03-27 15:02 | XMS_ITS | Encounter Summary ---
Author Organization [facility] [place] [address] Care Team Providers Care Metal Storage Worker Name Role Phone Mnan Irene MD Primary Care Provider [phone] Encounter Details Date Type Department Care Team (Latest Contact Info) Description 01/11/2020 Travel Social History Tobacco Use Types Packs/Day [...] have Coronavirus / COVID-19? No / Unsure 01/11/2020 8:34 AM EDT documented as of this encounter [...] EST Office Visit [facility] [address] [place] [phone] Gilda Francis PA [address] [place] [address] documented as of this encounter Visit Diagnoses Not on filedocumented in this encounter Additional Health Concerns Infection Onset Date Last Indicated Resolved Time ESBL organism 11/16/2019 11/16/2019 03/28/2022 1:0 5 PM EST Assessment Noted Time A fall risk assessment has been complete d for the patient 12/08/2019 8:58 AM EDT documented as of this encounter Care Teams Metal Storage Worker Relationship Specialty Start Date End Date Mann Irene MD [address] [place] [address] PCP - General Internal Medicine 08/23/12 07/13/22 documented as of this encounter
--- OUTSIDE RECORDS SUMMARY | 2024-03-27 15:02 | XMS_ITS | Encounter Summary ---
Author Organization [place] [address] Care Team Providers Care Map Editor Name Role Phone Mann Irene MD Primary Care Provider [phone] Reason for Visit * Reason Comments Labs Only Encounter Details Date Type Department Care Team (Latest Contact Info) Description 01/12/2020 8:00 AM EDT Clinical Support [facility] [place] [address] [place] [phone] Jill Beck E [address] [place] [address] Hypercholesterolemia Social History Tobacco Use Types Packs/Day [...] No 12/08/2019 8:58 AM EDT Tomi Slaughter, ASHLEYA * Does this person have serious difficulty walking or climbing stairs? Answer Date of Assessment Author No 12/08/2019 8:58 AM EDT Tomi Slaughter, ASHLEYA * Does this person have difficulty dressing or bathing? Answer Date of Assessment Author No 12/08/2019 8:58 AM EDT Tomi Slaughter, ASHLEYA * Because of a physical, mental or emotional condition, does this person have difficulty doing errands alone such as visiting a doctor's office or shopping? Answer Date of Assessment Author No 12/08/2019 8:58 AM EDT Tomi Slaughter, ASHELYA documented as of this encounter Mental Status * Because of a physical, mental or emotional condition, does this person have serious difficulty concentrating, remembering or making decisions? Answer Entry Date Author No 12/08/2019 8:58 AM EDT Tomi Slaughter, CLAUDIA documented in this encounter Progress Notes * Jill Beck - 01/12/2020 8:00 AM EDT Venipuncture in the right antecubital vein with 21 gauge needle, length 1 1/2 inch. * Mann Irene MD - 01/12/2020 8:00 AM EDT Labs good/normal. No new recommendations. documented in this encounter Plan of Treatment Upcoming Encounters Date Type Department Care Team (Late st Contact Info) Description 05/16/2024 9:30 AM EST Office Visit [facility] [address] [place] [phone] Gilda Francis PA [address] [place] [address] documented as of this encounter Procedures Procedure Name Priority Date/Time Associated Diagnosis Comments CBC WITH DIFF Routine 01/12/2020 8:01 AM EDT Hypercholesterolem ia COMPREHENSIVE METABOLIC PANEL Routine 01/12/2020 8:01 AM EDT Hypercholesterolem ia documented in this encounter Results * (ABNORMAL) COMPREHENSIVE METABOLIC PANEL (01/12/2020 8:01 AM EDT) Sodium 141 136 - 145 mmol/L 01/12/2020 4:20 PM EDT [facility] Potassium 4.3 3.5 - 5.0 mmol/L 01/12/2020 4:20 PM EDT [facility] Chloride 107 98 - 107 mmol/L 01/12/2020 4:20 PM EDT [facility] Total CO2 27 22 - 29 mmol/L 01/12/2020 4:20 PM EDT [facility] Anion Gap 7 7 - 16 mmol/L 01/12/2020 4:20 PM EDT [facility] Calcium 9.0 8.8 - 10.4 mg/dL 01/12/2020 4:20 PM EDT [facility] Glucose Lvl 57(L) 82 - 100 mg/dL 01/12/2020 4:20 PM EDT [facility] BUN 12 8 - 23 mg/dL 01/12/2020 4:20 PM EDT [facility] Creatinine 0.71 0.51 - 1.30 mg/dL 01/12/2020 4:20 PM EDT [facility] Albumin 3.9 3.2 - 4.6 gm/dL 01/12/2020 4:20 PM EDT [facility] Total Protein 6.8 6.4 - 8.3 gm/dL 01/12/2020 4:20 PM EDT [facility] Bili Total 0.4 0.1 - 1.3 mg/dL 01/12/2020 4:20 PM EDT [facility] ALT 14 <=41 U/L 01/12/2020 4:20 PM EDT [facility] AST 18 <=40 U/L 01/12/2020 4:20 PM EDT [facility] [employer], [facility] Alk Phos 95 36 - 123 U/L 01/12/2020 4:20 PM EDT [facility] [employer], [facility] GFR Afr Am 98 >=60 mL/min/1.7 3 m2 01/12/2020 4:20 PM EDT [facility] GFR Non Afr Am 85 >=60 mL/min/1.7 3 m2 01/12/2020 4:20 PM EDT [facility] Comment: This estimated GFR was [...] or muscle mass. Blood Venipuncture / Unknown 01/12/2020 8:01 AM EDT 01/12/2020 8:03 AM EDT us Mann Irene MD CHEMISTRY ORDERABLES Final Res ult [facility] [employer], [facility] [address] [facility] , [address] [place] [id number] [facility] [address] [place], [place] [id number] * (ABNORMAL) CBC WITH DIFF (01/12/2020 8:01 AM EDT) WBC 11.0(H) 3.7 - 10.3 x10(3)/mcL 01/12/2020 3:55 PM EDT [facility] [employer], [facility] RBC 4.77 3.90 - 5.20 x10(6)/mcL 01/12/2020 3:55 PM EDT [facility] [employer], [facility] Hgb 13.8 11.2 - 15.7 g/dL 01/12/2020 3:55 PM EDT [facility] [employer], [facility] Hct 43.6 34.0 - 45.0 % 01/12/2020 3:55 PM EDT [facility], [facility] MCV 91.4 80.0 - 100.0 fL 01/12/2020 3:55 PM EDT [facility], [facility] MCH 28.9 26.0 - 34.0 pg 01/12/2020 3:55 PM EDT [facility], [facility] MCHC 31.7 30.7 - 35.5 g/dL 01/12/2020 3:55 PM EDT [facility], [facility] RDW 14.7 <=14.9 % 01/12/2020 3:55 PM EDT [facility], [facility] Platelet 338 155 - 369 x10(3)/mcL 01/12/2020 3:55 PM EDT [facility], [facility] MPV 10.3 8.8 - 12.5 fL 01/12/2020 3:55 PM EDT [facility], [facility] Neut Percent 43.8 % 01/12/2020 3:55 PM EDT [facility], [facility] Comment:Neutrophils equals s egs plus bands Imm Gran% 0.3 % 01/12/2020 3:55 PM EDT [facility], [facility] Comment:Automated count of m etamyelocytes, myelocytes and promyelocytes. Lymph Percent 38.9 % 01/12/2020 3:55 PM EDT [facility], [facility] Craig Percent 8.7 % 01/12/2020 3:55 PM EDT [facility], [facility] Eos Percent 7.6 % 01/12/2020 3:55 PM EDT [facility], [facility] Baso Percent 0.7 % 01/12/2020 3:55 PM EDT [facility], [facility] Neut # 4.8 1.6 - 6.1 x10(3)/mcL 01/12/2020 3:55 PM EDT [facility], [facility] Comment:Neutrophils equals s egs plus bands IMMGRAN# 0.0 0.0 - 0.1 x10(3)/mcL 01/12/2020 3:55 PM EDT [facility], [facility] Comment:Automated count of m etamyelocytes, myelocytes and promyelocytes. An absolute IG <0.1 is reported as 0.0. Lymph # 4.3(H) 1.2 - 3.9 x10(3)/mcL 01/12/2020 3:55 PM EDT [facility], [facility] Craig # 1.0(H) 0.3 - 0.9 x10(3)/mcL 01/12/2020 3:55 PM EDT [facility] Eos# 0.8(H) 0.0 - 0.5 x10(3)/mcL 01/12/2020 3:55 PM EDT [facility] Baso # 0.1 0.0 - 0.1 x10(3)/mcL 01/12/2020 3:55 PM EDT [facility] Blood Venipuncture / Unknown 01/12/2020 8:01 AM EDT 01/12/2020 8:03 AM EDT us Mann Irene MD HEMATOLOGY ORDERABLES Final Re sult [facility] [address] [facility] , [place] [address] documented in this encounter Visit Diagnoses Diagnosis Hypercholesterolemia Pure hypercholesterolemia documented in this encounter Additional Health Concerns Infection Onset Date Last Indicated Resolved Time ESBL organism 11/16/2019 11/16/2019 03/28/2022 1:0 5 PM EST Assessment Noted Time A fall risk assessment has been complete d for the patient 12/08/2019 8:58 AM EDT documented as of this encounter Care Teams Map Editor Relationship Specialty Start Date End Date Mann Irene MD [address] [place] [phone] PCP - General Internal Medicine 08/23/12 07/13/22 documented as of this encounter
--- OUTSIDE RECORDS SUMMARY | 2024-03-27 15:02 | XMS_ITS | Encounter Summary ---
Author Organization [facility] [place] [address] Care Team Providers Care Soup Person Name Role Phone Mann Irene MD Primary Care Provider [phone] Encounter Details Date Type Department Care Team (Latest Contact Info) Description 01/25/2020 Travel Social History Tobacco Use Types Packs/Day [...] have Coronavirus / COVID-19? 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
--- OUTSIDE RECORDS SUMMARY | 2024-03-27 15:02 | XMS_ITS | Encounter Summary ---
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 Role Phone Mann Irene MD Primary Care Provider [phone] Reason for Visit * Auth/Cert/Inpt Specialty Diagnoses / Procedures Referred By Ramona [email or web address] Referred To Contact Diagnoses Nephrolithiasis Nephrolithiasis [N20.0] Procedures ND CYSTO/URETERO/PYELOSCOPY W/LITHOTRIPSY cystoscopy, right ureteroscopy, laser lithotripsy, right stent placement Referral ID Status Reason Start Date Expiration Date Visits Re quested Visits Authorized [id number] 1 1 Encounter Details Date Type Department Care Team (Latest Contact Info) Description 01/02/2020 12:32 PM EDT - 01/02/2020 5:15 PM EDT Hospital [facility] [place] [id number] Amari Wheeler MD [address] [place] [address] Nephrolithiasis; Nephrolithiasis Discharge Disposition: Home or Self Care Social [...] Sign Reading Time Taken Comments Blood Pressure 126/63 01/02/2020 4:59 PM EDT Pulse 75 01/02/2020 4:59 PM EDT Temperature 36.1 ??C (97 ??F) 01/02/2020 4:30 PM EDT Respiratory Rate 16 01/02/2020 4:59 PM EDT Oxygen Saturation 99% 01/02/2020 4:59 PM EDT Inhaled Oxygen Concentration - - Weight 82.6 kg (182 lb) 01/02/2020 12:45 PM EDT Height 154.9 cm (5' 1 ) 01/02/2020 12:50 PM EDT Body Mass Index 34.39 01/02/2020 12:45 PM EDT documented in this encounter Functional [...] Tomi Slaughter CCMA documented in this encounter Discharge Instructions * Discharge Instructions* Rosa Angulo RN - 01/02/2020 4:19 PM EDT Images from the original note were not included. Call for inability to urinate, fevers > 100.4, increasing pain not responsive to medication. Some blood in the urine is normal after the procedure. You may notice the need to urinate more frequently. You may also notice a sense of urgency, which is the feeling that you have to get there right away. There may be some pain or burning with urination. It is possible that you may see some blood with urination. It may take several days for these symptoms to resolve. You may resume your normal activity. You may shower or bathe as you normally do. You do not need any specific medication unless you have been given a prescription by your doctor. YOU HAVE A URETERAL STENT IN PLACE. IT IS VERY IMPORTANT TO FOLLOW UP WITH YOUR UROLOGIST WITH A STENT IN PLACE IT NEEDS TO BE REMOVED IN AMPLE TIME. STENTS THAT ARE IN FOR LONGER THAN THREE MONTHS CAN CAUSE ENCRUSTATION, AND PERMANENT RENAL DAMAGE. PLEASE PULL STRING TO REMOVE STENT IN 72 HOURS +++++++++++++++++++++++++++++++++++++++++++++++++++++++++++++++++++ [facility] Discharge Instructions - Following Anesthesia We appreciate the opportunity to care for you today! Here are a few reminders as you head home: ?? A responsible adult, 18 years or older must be in attendance until tomorrow morning. ?? Rest quietly today. ?? May resume usual diet as tolerated or as directed by your surgeon. ?? Do not drive or operate any machinery until tomorrow morning or as instructed. ?? Do not make any legal or important decisions for the next 24 hours. ?? Do not drink alcoholic beverages or take sleeping pills for 24 hours unless otherwise directed. ?? If you received a nerve block for post-operative pain control, protect your blocked arm/leg. It is numb. Carefully pad your limb to prevent pressure sores and other injuries. Be careful with applying cold/warm to the blocked limb. Numbness will alter the sensation of the limb and could damage your skin if you cannot correctly feel the temperature. ?? If you have questions or concerns regarding your anesthesia experience, please call our office at . Get Well Soon! [facility] +++++++++++++++++++++++++++++++++++++++++++++++++++++++++++++++++++ Generic Instructions for Pain Medicine Some pain medicine may change the way you think and make judgments. You might not be able to do some things safely. Take your medicine as advised by your doctor if you have pain. DO NOT take them if you do not have pain unless your doctor advised you to. After you start the medicine and 8 hours after you stop, DO NOT: ?? Drive. ?? Use machines. ?? Use power tools. ?? Sign legal papers. HOME CARE Do not drink alcohol while taking pain medicines. Do not take sleeping pills while taking pain medicines. Do not take other medicines at the same time as pain medicines unless your doctor tells you it is okay to do so. IF YOUR PAIN MEDICINE IS A NARCOTIC: ?? Use a stool softener such as Metamucil if you cannot go the the bathroom. This can happen when you take certain pain medicines. ?? Eat more fruits and vegetables when you take your medicine. This may help you go to the bathroom. ?? You may get confused when taking your medicine. Write down when you take your medicine. ?? Before taking your next pill(s), look at the last time you took your pill(s). ?? Writing the times down will help you to not take too much (overdose). GET HELP IF: ?? Your medicine is not helping to relieve pain. ?? You throw up (vomiting) and/or have watery poop (diarrhea). ?? You notice belly pain that you did not have before. ?? You feel dizzy or pass out. ?? You feel you are having other problems that might be caused by your medicine. Document Released: 10/13/2008 ExitCare?? Patient Information ??2009 [employer] documented in this encounter Medications at Time [...] 01/12/20 20 documented as of this encounter Ordered Prescriptions Prescription Sig Dispense Quantity Refills Last Filled Start Date End Date HYDROcodone-acetam inophen (NORCO) 5-325 mg Oral Tablet Take 2 Tabs by mouth every 6 hours as needed for Major Surgery/Trau ma (G89.18) for up to 10 days. 20 Tab 01/02/2020 01/12/2020 documented in this encounter Discharge Disposition Disposition Code Departure Means Destination Home or Self Residential documented in this encounter H&P Notes * Hailey Loera APRN - 01/02/2020 1:09 PM EDT This update is in reference to H&P performed by MD Wheeler History & Physical Reviewed Chief complaint: Nephrolithiasis [N20.0] Recent History and Physical reviewed- Patient was examined and Pre-op information reviewed +R flank pain, no other complaints/concerns Vitals: 01/02/20 1250 BP: 130/76 Pulse: 89 Resp: 16 Temp: 97.7 ??F (36.5 ??C) SpO2: 99% Lungs-CTAB, resp even Heart-RRR, last dose of bASA [id number] Distal pulses intact in all four extremities ECG- reviewed SINUS RHYTHM WITH SINUS ARRHYTHMIA Labs- reviewed Prior reaction to anesthesia:PONV Nephrolithiasis [N20.0] Procedure(s): cystoscopy, right ureteroscopy, laser lithotripsy, right stent placement per Amari Wheeler MD Natasha Radic, APRN 1:10 PM Source Note - Amari Wheeler MD - 12/14/2019 2:00 PM EDT [facility] Established Patient E&M Stella Hylton 1945 [...] of bladder; Surgeon: Amari Wheeler MD; Location: [facility] MA[facility] OR; Service: Urology ??? CATARACT REMOVAL Right 02/28/2019 RIGHT EYE CATARACT EXTRACTION WITH PHACOEMULSIFICATION AND INTRAOCULAR LENS; Surgeon: Conor Ramirez MD; Location: [facility]; Service: Ophthalmology ??? CATARACT REMOVAL Left 03/14/2019 LEFT EYE CATARACT EXTRACTION WITH PHACOEMULSIFICATION AND INTRAOCULAR LENS; Surgeon: Conor Ramirez MD; Location: [facility]; Service: Ophthalmology ??? COLONOSCOPY ??? CYSTOSCOPY Right 11/28/2019 cystoscopy right stent placement, right extracorporeal shock wave lithotripsy; Surgeon: Dinh Wheeler MD; Location: [facility]; Service: Urology ??? HEMORRHOID SURGERY ??? HIP ARTHROPLASTY Right 02/16/2014 RIGHT TOTAL HIP REPLACEMENT; Surgeon: Bruce Oh MD; Location: [facility]; Service: Orthopedics ??? HYSTERECTOMY complete ??? LITHOTRIPSY Right 11/28/2019 Surgeon: Amari Wheeler MD; Location: [facility]; Service: Urology ??? LUMBAR DISC [...] loratadine-pseudoephedrine (LORATADINE-PSEUDOEPHEDRINE) 10-240 mg Oral Tablet Sustained [id number] hr Take 1 Tab by mouth daily. [...] and images on file) were reviewed in [facility], if pertinent see plan Existing Medical Record: Progress Notes, Consults and miscellaneous records were reviewed in [facility] and pertinent positives are: see synopsis Outside [...] ureteroscopy and laser lithotripsy. Amari Wheeler MD [facility] [address] [place] [address] 12/14/2019 1:38 PM documented in this encounter Procedure Notes * Amari Wheeler MD - 01/02/2020 3:28 PM EDT Images from the original note were not included. [facility] Cysto, Flexible Ureteroscopy, Stent Exchange, Laser Lithotripsy, Basket Retrieval of stone fragments. Indications: The patient has right. Treatment options have been discussed and the patient has elected to proceed with Right stent placement, possible ureteroscopy. Pre-operative Diagnosis: right nephrolithiasis Post-operative Diagnosis: same Surgeon: Amari Wheeler MD Procedure: Cysto, Flexible Ureteroscopy, Stent Exchange, Laser Lithotripsy, Basket Retrieval of stone fragments. Assistants: none Anesthesia: General LMA anesthesia Procedure Details: The risks, benefits, complications, treatment options, and expected outcomes were discussed with the patient. The possibilities of reaction to medication, pulmonary aspiration, perforation of viscus,bleeding, recurrent infection, the need for additional procedures, failure to diagnose a condition,and creating a condition requiring transfusion or operation were discussed with the patient. The patient concurred with the proposed plan, giving informed consent. The DVT Prophylaxis Protocol was observed with the exclusion of pharmacologic agents as advised in the AUA Guideline for DVT Prophylaxis for procedures prone to excessive bleeding. The AUA Guidelines for Antibiotic Prophylaxis will be f ollowed. The site of surgery was properly noted and marked. The patient was taken to the Operating Room, identified as Stella Hylton and the procedure verified. A Time Out was held and the above information confirmed. Intravenous antibiotics have been provided. Pneumatic boots have been applied. After the induction of satisfactory anesthesia the patient was placed in the dorsal lithotomy position and prepped and draped in the usual sterile fashion. The 21 Yoruba cystoscope was inserted. Under direct vision, the urethra appears normal. The bladder neck is unremarkable. Both ureteral orifices were identified with clear efflux from each. Each lay in a normal position on the trigone. No foreign objects were identified. Initial examination of the bladder mucosa shows no gross abnormalities. The right stent was identified and grasped with graspers. The stent was pulled out the urethral orifice. A 0.035 guidewire was then inserted into the stent under fluoroscopic guidance. The stent was removed in push pull manner. The ureteral access sheath was then placed over the wire to the level of the lower ureter. A second safety wire was placed into the access sheath and the access sheath wasthen removed, safety wire secured, and the sheath placed back over the other glidewire to the levelof the stone. Laser lithotripsy was then performed to break the stone into small fragments. A basket was then used to remove all stone fragments. A retrograde pyelogram was done to ensure all calyxes were cleared of stone. There were some dust fragments that were too small to remove. The entire ureter was examined as the sheath was removed. A 6 lithuanian x 24 JJ stent was then placed over the glide wire ensuring good coil in both the kidney and bladder. A string was left in place The scope was removed. Instrument, sponge, and needle counts were correct. Findings: none Estimate Blood Loss: 10 ml Drains: none Specimens: none Complications: None; patient tolerated the procedure well. Disposition: PACU - hemodynamically stable Attending Attestation: I performed the procedure Amari Wheeler MD [facility] [address] [place] [address] 01/02/2020 3:29 PM documented in this encounter Nursing Notes * Rosa Angulo RN - 01/02/2020 4:50 PM EDT Discharge instructions reviewed with PIC per telephone. Voices understanding of all instructions including diet and activity restrictions , medications, care of operative site , and follow up care. Discharge instructions placed in discharge folder . Discharged per wheelchair * Erma Anaya RN - 12/20/2019 2:00 PM EDT Images from the original note were not included. PREPARING FOR YOUR SURGERY Date of Surgery 01/02/2020 Medications ??? Take the following pills with a small sip of water on the morning of surgery: NONE ??? Aspirin, coumadin, blood thinners, ibuprofen, Plavix, fish oil, vitamin E, any supplements, andany anti-inflammatory products may be stopped as directed by your physician. Food, Drinks, Tobacco ?? For your safety, do not eat any food after midnight. This includes gum, mints, candy, chewing tobacco, and dip. You may consume water, Gatorade, Powerade, black coffee/tea (no milk, no cream/creamers, no sugar) up to two hours prior to your arrival time. No exceptions or substitutions may be made to these restrictions. ??? For tobacco users: do not smoke or use any type of tobacco products within 24 hours prior to surgery. Smoking will also slow your rate of healing, so it is advised that you do not smoke during the healing process. No beer, wine or alcohol 24 hours prior to surgery. ??? Review instructions provided by your surgeon. Loom Setter Fourdrinier ??? On the day of surgery, it is important to have a Loom Setter Fourdrinier, someone who is 18 years or older. This person should be available for the Perioperative Team, which includes your surgeon, to communicate with before, during and after your surgery. Someone should also remain with you for [address] you and make sure you are SAFE during that time. ??? A parent must accompany a child scheduled for surgery and plan to stay at the hospital until the child is discharged. If your infant takes a special type of nipple or baby bottle, please bring that with you. If your child has a favorite security item such as a blanket or a special toy, please feel free to bring that with you. ??? Please do not bring children with you to the hospital or surgery center. Hygiene ??? You may brush your teeth and gargle the morning of surgery. Do not swallow water. ??? Please shower the morning of surgery or the night before. Do not wear makeup (including eye makeup) lotion, powder or deodorant. Please do not shave the operative extremity or near the operative extremity. ??? Nail moroccan must be removed from operative extremity. Personal Items ??? Please wear simple, loose fitting clothing to the hospital. Do not bring valuables (money, credit cards, check books, etc.) or wear any jewelry on day of surgery. Remove all body piercings prior to arrival. All jewelry must be removed to avoid injury. We will not tape wedding rings/bands. ??? If you have dentures, they may be removed before going into the operating room, and we will provide a container for them. If you wear contact lenses or glasses, they must be removed. Please bringa case for them. ??? Do not remove hearing aids. You will wear them to surgery. Bring with You ?? If you have a Living Will and Durable Power of Md [facility], please bring a copy. ??? If having surgery at the hospital and you wear CPAP or BIPAP, please bring your mask and the machine settings (not the actual machine) with you to the hospital on the day of your procedure. The hospital will supply a machine to use during your hospital stay. ??? If your procedure is taking place at a surgery center, you must bring your CPAP or BIPAP with you. ??? If you wear oxygen, please bring it with you to use during your travel to and from the hospital. Following your admission, the hospital will supply oxygen for your use. Notify the Surgeon ??? For your safety, notify your surgeon if you develop any illness between now and surgery time --cough, cold, fever, sore throat, nausea, vomiting, etc. Questions or Concerns? If you have any questions or concerns, feel free to call the contact number. We want to make sure you feel safe and have an excellent experience while you are here. [facility] [place] at [phone]; [place] [facility]: Patient Entrance 3A, [facility] elevator to 2nd floor - [address] [place] [phone] documented in this encounter Plan of Treatment Upcoming Encounters Date Type Department Care Team (Late st Contact Info) Description 05/16/2024 9:30 AM EST Office Visit [facility] [address] [place] [address] Gilda Francis PA [address] [place] [address] documented as of this encounter Procedures Procedure Name Priority Date/Time Associated Diagnosis Comments SCANNED RHYTHM STRIPS 01/03/2020 9:38 AM EDT CALCULI (STONE) ANALYSIS - REF LAB Routine 01/02/2020 3:31 PM EDT Nephrolithiasis CYSTOSCOPY, URETEROSCOPY, LASER LITHOTRIPSY, RETROGRADE PYELOGRAM, STENT INSERTION 01/02/2020 2:45 PM EDT Nephrolithiasis Special Needs holmium laser documented in this encounter Results * SCANNED RHYTHM STRIPS (01/03/2020 9:38 AM EDT) Anatomical Region Laterality Modality Other 01/03/2020 9:38 AM EDT us Unknown Unknown IMG ECG ORDERABLES Final Result * CALCULI (STONE) ANALYSIS - REF LAB (01/02/2020 3:31 PM EDT) Calculi Comp See Note 01/06/2020 9:39 AM EDT [employer] Comment: Calculi composed primarily of: 80% calcium [...] composition determined by FTIR analysis. Performed By: [facility] [address] [place] [id number] Natural [employer] Engineer: Lobo Aguilar MD, MS Calculi Mass 37 mg 01/06/2020 9:39 AM EDT [employer] Calculi Number Numerous 01/06/2020 9:39 AM EDT [employer] Calculi Size 1 to 4 mm 01/06/2020 9:39 AM EDT [employer] Calculi Desc See Note 01/06/2020 9:39 AM EDT [employer] Comment: Specimen received in a wet gel substance, not the preferred dry state. Wet specimens often delay analysis. Specimen consists of numerous, small, brown/brown, irregular calculi fragments. Calculus STRUCTURE OF RIGHT URETERAL ORIFICE / Unknown 01/02/2020 3:31 PM EDT 01/02/2020 4:08 PM EDT us Amari Wheeler MD MICROBIOLOGY - GENERAL ORDERABLE S Final Result [facility] [address] documented in this encounter Visit Diagnoses Diagnosis Nephrolithiasis- Primary Calculus of kidney documented in this encounter Admitting Diagnoses Diagnosis Nephrolithiasis Calculus of kidney documented in this encounter Administered Medications Inactive Administered Medications - up to 1 most recent administrations Medication Order MAR Action Action Date Dose Rate Site acetaminophen (TYLENOL) tablet 1,000 mg 1,000 mg, Oral, PREPROCEDURE, 1 dose, Starting on Thu01/01/20 at 1631, Until Thu01/02/20 at 1326, Coanalgesic, Do not give if patient received acetaminophen within the last 6 hours Maximum adult dose of acetaminophen is 4000 mg from all sources in 24 hours. , Pre-op (Holding/SDS Meds) Given 01/02/2020 1:26 PM EDT 1,000 mg aprepitant (EMEND) capsule 40 mg 40 mg, Oral, ONCE PREPROCEDURE, 1 dose, On 01/01/20 at 1645, Pre-op (Holding/SDS Meds) Given 01/02/2020 1:26 PM EDT 40 mg dimenhyDRINATE (DRAMAMINE) injection 12.5-25 mg 12.5-25 mg, Intravenous, PRN, 2 doses, Starting on 01/02/20 at 1530, Until Thu01/02/20 at 2115, Nausea, For nausea unrelieved by ondansetron or pre-op granisetron. Begin with lowest dose unless otherwise directed. Give remainder of dose if nausea unrelieved in 20 minutes., PACU famotidine (PEPCID) 20 mg in sodium chloride 10 mL injection 20 mg, Intravenous, ONCE PREPROCEDURE, 1 dose, On 01/01/20 at 1645, Slow IV push (greater than 2 minutes). To be given in SDS/Pre-op Holding Area Dilute with 0.9% sodium chloride to total volume of 10 mL and administer over at least 2 minutes., Pre-op (Holding/SDS Meds) Given 01/02/2020 1:27 PM EDT 20 mg fentaNYL (SUBLIMAZE) injection 25 mcg 25 mcg, Intravenous, EVERY 5 MIN PRN, 4 doses, Starting on Thu01/02/20 at 1530, Until Thu01/02/20 at 2114, Pain, For initial pain. Maximum dose not to exceed 100 mcg., PACU HYDROmorphone (DILAUDID) injection 0.25 mg 0.25 mg, Intravenous, EVERY 10 MIN PRN, Starting on Thu01/02/20 at 1530, Until Thu01/02/20 at 2114, Breakthrough Pain, Do not exceed 2 mg in one hour unless otherwise ordered by the Anesthesia Coordinator For pain unrelieved by fentanyl or oral opioid, PACU lactated ringers infusion Intravenous, at 100 mL/hr, PREPROCEDURE CONTINUOUS, Starting on Thu01/01/20 at 1631, Until Thu01/02/20 at 2114, To be given in SDS/Pre-op Holding Area, Pre-op (Holding/SDS Meds) New Bag 01/02/2020 1:26 PM EDT 100 mL/hr ondansetron (ZOFRAN) injection 4 mg 4 mg, Intravenous, PRN, 1 dose, Starting on Thu01/02/20 at 1530, Until Thu01/02/20 at 2114, Nausea, Do not give if patient received granisetron (KYTRIL) pre-operatively. Proceed to 2nd tier antiemetic., PACU ondansetron (ZOFRAN-ODT) disintegrating tablet 8 mg 8 mg, Oral, PRN, 1 dose, Starting on Thu01/02/20 at 1530, Until Thu01/02/20 at 2114, Nausea, Do not give if patient received granisetron (KYTRIL) pre-operatively. Proceed to 2nd tier antiemetic., PACU oxyCODONE (ROXICODONE) immediate release tablet 5 mg 5 mg, Oral, EVERY 1 HOUR PRN, 2 doses, Starting on Thu01/02/20 at 1530, Until Thu01/02/20 at 2114, Pain, When tolerating oral intake, PACU Given 01/02/2020 4:02 PM EDT 5 mg promethazine (PHENERGAN) 12.5 mg in sodium chloride 10 mL injection 12.5 mg, Intravenous, PRN, 2 doses, Starting on Thu01/02/20 at 1530, Until Thu01/02/20 at 2115, Nausea, For persistent nausea unrelieved by other antiemetics. Begin with lowest dose unless otherwise directed. Give remainder of dose if nausea unrelieved in 20 minutes. Not to exceed 25 mg in one hour unless otherwise ordered by Anesthesia Coordinator. VESICANT , PACU promethazine (PHENERGAN) 6.25 mg in sodium chloride 10 mL injection 6.25 mg, Intravenous, PRN, 2 doses, Starting on Thu01/02/20 at 1530, Until Thu01/02/20 at 2115, Nausea, For persistent nausea unrelieved by other antiemetics. Begin with lowest dose unless otherwise directed. Give remainder of dose if nausea unrelieved in 20 minutes. Not to exceed 25 mg in one hour unless otherwise ordered by Anesthesia Coordinator. VESICANT , PACU documented in this encounter Active and Recently Administered Medications Times are shown in EDT. Scheduled Medication Order 12/31/2019 01/01/2020 01/02/2020 aprepitant (EMEND) capsule 40 mg (COMPLETED) 40 mg, Oral, ONCE PREPROCEDURE, 1 dose, On Thu01/01/20 at 1645, Pre-op (Holding/SDS Meds) 1326 (Given - Provid er: Argelia Negron RN) ceFAZolin (ANCEF) IVPB 2 g (COMPLETED) 2 g, Intravenous, ONCE PREPROCEDURE, 1 dose, On Thu01/02/20 at 1245, Administer over 30 Minutes 1452 (Given - Provid er: Barber Oates CRNA) famotidine (PEPCID) 20 mg in sodium chloride 10 mL injection (COMPLETED) 20 mg, Intravenous, ONCE PREPROCEDURE, 1 dose, On Thu01/01/20 at 1645, Slow IV push (greater than 2 minutes). To be given in SDS/Pre-op Holding Area Dilute with 0.9% sodium chloride to total volume of 10 mL and administer over at least 2 minutes., Pre-op (Holding/SDS Meds) 1327 (Given - Provid er: Argelia Negron RN) PRN Medication Order 12/31/2019 01/01/2020 01/02/2020 acetaminophen (TYLENOL) tablet 1,000 mg (COMPLETED) 1,000 mg, Oral, PREPROCEDURE, 1 dose, Starting on Thu01/01/20 at 1631, Until Thu01/02/20 at 1326, Coanalgesic, Do not give if patient received acetaminophen within the last 6 hours Maximum adult dose of acetaminophen is 4000 mg from all sources in 24 hours. , Pre-op (Holding/SDS Meds) 1326 (Given - Provid er: Argelia Negron RN) dimenhyDRINATE (DRAMAMINE) injection 12.5-25 mg 12.5-25 mg, Intravenous, PRN, 2 doses, Starting on Thu01/02/20 at 1530, Until Thu01/02/20 at 2115, Nausea, For nausea unrelieved by ondansetron or pre-op granisetron. Begin with lowest dose unless otherwise directed. Give remainder of dose if nausea unrelieved in 20 minutes., PACU fentaNYL (SUBLIMAZE) injection 25 mcg 25 mcg, Intravenous, EVERY 5 MIN PRN, 4 doses, Starting on Thu01/02/20 at 1530, Until Thu01/02/20 at 2115, Pain, For initial pain. Maximum dose not to exceed 100 mcg., PACU HYDROmorphone (DILAUDID) injection 0.25 mg 0.25 mg, Intravenous, EVERY 10 MIN PRN, Starting on Thu01/02/20 at 1530, Until Thu01/02/20 at 2115, Breakthrough Pain, Do not exceed 2 mg in one hour unless otherwise ordered by the Anesthesia Coordinator For pain unrelieved by fentanyl or oral opioid, PACU iopamidoL (ISOVUE-300) 61 % injection (COMPLETED) ONCE PRN, 1 dose, Starting on Thu01/02/20 at 1506, Until Thu01/02/20 at 1506, Intra-op 1506 (Given - Provid er: Amari Wheeler MD - Comment: right ureteral) lactated ringers infusion Intravenous, at 100 mL/hr, PREPROCEDURE CONTINUOUS, Starting on Thu01/01/20 at 1631, Until Thu01/02/20 at 2115, To be given in SDS/Pre-op Holding Area, Pre-op (Holding/SDS Meds) 1326 (New Bag - Prov ider: Argelia Negron RN)1532 (Anesthesia Volume Adjustment - Provider: Barber Oates CRNA)1652 (Stopped - Provider: Rosa Angulo RN) ondansetron (ZOFRAN) injection 4 mg(Linked Group 1) 4 mg, Intravenous, PRN, 1 dose, Starting on Thu01/02/20 at 1530, Until Thu01/02/20 at 2114, Nausea, Do not give if patient received granisetron (KYTRIL) pre-operatively. Proceed to 2nd tier antiemetic., PACU ondansetron (ZOFRAN-ODT) disintegrating tablet 8 mg(Linked Group 1) 8 mg, Oral, PRN, 1 dose, Starting on Thu01/02/20 at 1530, Until Thu01/02/20 at 5, Nausea, Do not give if patient received granisetron (KYTRIL) pre-operatively. Proceed to 2nd tier antiemetic., PACU oxyCODONE (ROXICODONE) immediate release tablet 5 mg 5 mg, Oral, EVERY 1 HOUR PRN, 2 doses, Starting on Thu01/02/20 at 1530, Until Thu01/02/20 at 2114, Pain, When tolerating oral intake, PACU 1602 (Given - Provid er: Mark Pedraza RN) promethazine (PHENERGAN) 12.5 mg in sodium chloride 10 mL injection(Linked Group 2) 12.5 mg, Intravenous, PRN, 2 doses, Starting on Thu01/02/20 at 1530, Until Thu01/02/20 at 5, Nausea, For persistent nausea unrelieved by other antiemetics. Begin with lowest dose unless otherwise directed. Give remainder of dose if nausea unrelieved in 20 minutes. Not to exceed 25 mg in one hour unless otherwise ordered by Anesthesia Coordinator. VESICANT , PACU promethazine (PHENERGAN) 6.25 mg in sodium chloride 10 mL injection(Linked Group 2) 6.25 mg, Intravenous, PRN, 2 doses, Starting on Thu01/02/20 at 1530, Until Thu01/02/20 at 5, Nausea, For persistent nausea unrelieved by other antiemetics. Begin with lowest dose unless otherwise directed. Give remainder of dose if nausea unrelieved in 20 minutes. Not to exceed 25 mg in one hour unless otherwise ordered by Anesthesia Coordinator. VESICANT , PACU Linked Groups Order Group 1: ondansetron (ZOFRAN) injection 4 mgJump to med 4 mg, Intravenous, PRN, 1 dose, Starting on Thu01/02/20 at 1530, Until Thu01/02/20 at 2114, Nausea, Do not give if patient received granisetron (KYTRIL) pre- operatively. Proceed to 2nd tier antiemetic., PACU Or ondansetron (ZOFRAN-ODT) disintegrating tablet 8 mgJump to med 8 mg, Oral, PRN, 1 dose, Starting on Thu01/02/20 at 1530, Until Thu01/02/20 at 2114, Nausea, Do not give if patient received granisetron (KYTRIL) pre-operatively. Proceed to 2nd tier antiemetic., PACU Group 2: promethazine (PHENERGAN) 6.25 mg in sodium chloride 10 mL injectionJump to med 6.25 mg, Intravenous, PRN, 2 doses, Starting on Thu01/02/20 at 1530, Until Thu01/02/20 at 2114, Nausea, For persistent nausea unrelieved by other antiemetics. Begin with lowest dose unless otherwise directed. Give remainder of dose if nausea unrelieved in 20 minutes. Not to exceed 25 mg in one hour unless otherwise ordered by Anesthesia Coordinator. VESICANT , PACU Or promethazine (PHENERGAN) 12.5 mg in sodium chloride 10 mL injectionJump to med 12.5 mg, Intravenous, PRN, 2 doses, Starting on Thu01/02/20 at 1530, Until Thu01/02/20 at 2114, Nausea, For persistent nausea unrelieved by other antiemetics. Begin with lowest dose unless otherwise directed. Give remainder of dose if nausea unrelieved in 20 minutes. Not to exceed 25 mg in one hour unless otherwise ordered by Anesthesia Coordinator. VESICANT , PACU documented in this encounter Orders Medications Ordered That Parish ht Not Have Been Administered Count Last Ordered Date First Ordered Date ceFAZolin (ANCEF) IVPB 2 g 1 01/02/2020 dimenhyDRINATE (DRAMAMINE) i njection 12.5-25 mg 1 01/02/2020 fentaNYL (SUBLIMAZE) injection 25 mcg 1 HYDROmorphone (DILAUDID) injection 0.25 mg 1 01/02/2020 iopamidoL (ISOVUE-300) 61 % injection 1 ondansetron (ZOFRAN) injection 4 mg 1 01/01 ondansetron (ZOFRAN-ODT) dis integrating tablet 8 mg 1 01/02/2020 promethazine (PHENERGAN) 12. 5 mg in sodium chloride 10 mL injection 1 01/02/2020 promethazine (PHENERGAN) 6.2 5 mg in sodium chloride 10 mL injection 1 01/02/2020 Discharge Count Last Ordered Date First Orde red Date DISCHARGE PATIENT 1 01/02/2020 documented in this encounter Additional Health Concerns Infection Onset Date Last Indicated Resolved Time ESBL organism 11/16/2019 11/16/2019 03/28/2022 1:0 5 PM EST Assessment Noted Time A fall risk assessment has been complete d for the patient 12/08/2019 8:58 AM EDT documented as of this encounter Care Teams Wagon Drill Operator Relationship Specialty Start Date End Date Mann Irene MD [address] [place], [place] [id number] PCP - General Internal Medicine 08/23/12 07/13/22 documented as of this encounter
--- OUTSIDE RECORDS SUMMARY | 2024-03-27 15:02 | XMS_ITS | Encounter Summary ---
Author Organization [place] [address] Care Team Providers Care Black Studies Professor Name Role Phone Mann Irene MD Primary Care Provider [phone] Reason for Visit * Reason Comments Medication Refill Encounter Details Date Type Department Care Team (Late st Contact Info) Description 12/20/2019 Refill [facility] [address] [place] [address] Amari Wheeler MD [address] [place] [address] Medication Refill Social History Tobacco Use Types [...] have Coronavirus / COVID-19? No / Unsure 12/20/2019 1:59 PM EDT documented as of this encounter Functional Status * Is the person deaf or does he/she have serious difficulty hearing? Answer Date of Assessment Author No 12/08/2019 8:58 AM Tomi Huggins deysiroxanne CLAUDIA * Is the person blind or does he/she have serious difficulty seeing even when wearing glasses? Answer Date of Assessment Author No 12/08/2019 8:58 AM Tomi Huggins CLAUDIA * Does this person have serious difficulty walking or climbing stairs? Answer Date of Assessment Author No 12/08/2019 8:58 AM Tomi Huggins deysiroxanne CLAUDIA * Does this person have difficulty dressing or bathing? Answer Date of Assessment Author No 12/08/2019 8:58 AM Tomi Huggins CLAUDIA * Because of a physical, mental or emotional condition, does this person have difficulty doing errands alone such as visiting a doctor's office or shopping? Answer Date of Assessment Author No 12/08/2019 8:58 AM Tomi Huggins CLAUDIA documented as of this encounter Mental Status * Because of a physical, mental or emotional condition, does this person have serious difficulty concentrating, remembering or making decisions? Answer Entry Date Author No 12/08/2019 8:58 AM Tomi Huggins CLAUDIA documented in this encounter Ordered Prescriptions Prescription Sig Dispense Quantity Refills Last Filled Start Date End Date tamsulosin (FLOMAX) 0.4 mg Oral Capsule TAKE 1 CAPSULE BY MOUTH EVERY DAY AT NIGHT 30 Cap 12/21/2019 documented in this encounter Plan of Treatment Upcoming Encounters Date Type Department Care Team (Late st Contact Info) Description 05/16/2024 9:30 AM EST Office Visit [facility] [address] [place] [address] Gilda Francis PA [address] [place] [address] documented as of this encounter Visit Diagnoses Not on filedocumented in this encounter Discontinued Medications Medication Sig Discontinue Reason Start Date End Da te tamsulosin (FLOMAX) 0.4 mg Oral Capsule Take 1 Cap by mouth nightly. 11/28/2019 12/21/2019 documented as of this encounter Additional Health Concerns Infection Onset Date Last Indicated Resolved Time ESBL organism 11/16/2019 11/16/2019 03/28/2022 1:0 5 PM EST Assessment Noted Time A fall risk assessment has been complete d for the patient 12/08/2019 8:58 AM EDT documented as of this encounter Care Teams Black Studies Professor Relationship Specialty Start Date End Date Mann Irene MD [address] [place] [id number] PCP - General Internal Medicine 08/23/12 07/13/22 documented as of this encounter
--- OUTSIDE RECORDS SUMMARY | 2024-03-27 15:02 | XMS_ITS | Encounter Summary ---
Author Organization [facility] [place] [address] Care Team Providers Care Vocational Rehabilitation Teacher Name Role Phone Mann Irene MD Primary Care Provider [phone] Encounter Details Date Type Department Care Team (Latest Contact Info) Description 03/27/2020 Travel Social History Tobacco Use Types Packs/Day [...] or suspected to have Coronavirus / COVID-19? Yes 03/27/2020 2:01 PM EST documented as of this encounter Functional [...] EST Office Visit [facility] [address] [place] [id number] Gilda Francis PA [address] [place] [address] documented as of this encounter Visit Diagnoses Not on filedocumented in this encounter Additional Health Concerns Infection Onset Date Last Indicated Resolved Time ESBL organism 11/16/2019 11/16/2019 03/28/2022 1:0 5 PM EST Assessment Noted Time A fall risk assessment has been complete d for the patient 12/08/2019 8:58 AM EDT documented as of this encounter Care Teams Vocational Rehabilitation Teacher Relationship Specialty Start Date End Date Mann [place] [address] [place] [address] PCP - General Internal Medicine 08/23/12 07/13/22 documented as of this encounter
--- OUTSIDE RECORDS SUMMARY | 2024-03-27 15:02 | XMS_ITS | Encounter Summary ---
Author Organization [place] [address] Care Team Providers Care Dialysis Nurse Name Role Phone Mann Irene MD Primary Care Provider [phone] Reason for Visit * Reason Comments Medication Refill Encounter Details Date Type Department Care Team (Late st Contact Info) Description 03/07/2020 Refill [facility] [place] [address] [address] [address] [place] [address] [place] [address] Medication Refill Social History Tobacco Use [...] 1 TABLET EVERY DAY 90 Tab 0 05/07/20 20 documented in this encounter Plan of Treatment Upcoming Encounters Date Type Department Care Team (Late st Contact Info) Description 05/16/2024 9:30 AM EST Office Visit [facility] [address] [place] [id number] Gilda Francis PA [address] [place] [address] documented as of this encounter Visit Diagnoses Diagnosis Pure hypercholesterolemia documented in this encounter Discontinued Medications Medication Sig Discontinue Reason Start Date End Da te atorvastatin (LIPITOR) 10 mg Oral TabletIndications:Pure hypercholesterolemia TAKE 1 TABLET EVERY DAY 12/09/2019 03/08/2020 documented as of this encounter Additional Health Concerns Infection Onset Date Last Indicated Resolved Time ESBL organism 11/16/2019 11/16/2019 03/28/2022 1:0 5 PM EST Assessment Noted Time A fall risk assessment has been complete d for the patient 12/08/2019 8:58 AM EDT documented as of this encounter Care Teams Dialysis Nurse Relationship Specialty Start Date End Date Mann Irene MD [address] [place] [phone] PCP - General Internal Medicine 08/23/12 07/13/22 documented as of this encounter
--- OUTSIDE RECORDS SUMMARY | 2024-03-27 15:02 | XMS_ITS | Encounter Summary ---
Author Organization [facility] [place] [address] Care Team Providers Care Records Clerk Name Role Phone Mann Irene MD Primary Care Provider [phone] Encounter Details Date Type Department Care Team (Latest Contact Info) Description 03/22/2020 Travel Social History Tobacco Use Types Packs/Day [...] have Coronavirus / COVID-19? No / Unsure 03/22/2020 2:42 PM EST documented as of this encounter [...] EST Office Visit [facility] [address] [place] [phone] Gilda Francis PA [address] [place] [address] documented as of this encounter Visit Diagnoses Not on filedocumented in this encounter Additional Health Concerns Infection Onset Date Last Indicated Resolved Time ESBL organism 11/16/2019 11/16/2019 03/28/2022 1:0 5 PM EST Assessment Noted Time A fall risk assessment has been complete d for the patient 12/08/2019 8:58 AM EDT documented as of this encounter Care Teams Records Clerk Relationship Specialty Start Date End Date Mann Irene MD [address] [place] [id number] PCP - General Internal Medicine 08/23/12 07/13/22 documented as of this encounter
--- OUTSIDE RECORDS SUMMARY | 2024-03-27 15:02 | XMS_ITS | Encounter Summary ---
Author Organization [facility] [place] [address] Care Team Providers Care Brick Veneer Maker Name Role Phone Mann Irene MD Primary Care Provider [phone] Reason for Visit * Reason Comments Medicare Annual Wellness medicare Encounter Details Date Type Department Care Team (Late st Contact Info) Description 12/08/2019 9:00 AM EDT Office Visit [facility] [place] [facility] [place] [address] [address] [place] [address] [place] [address] Annual physical exam (Primary Dx); Hypercholesterolemia; Other microscopic hematuria; Claudication (HCC) Social History Tobacco Use Types Packs/Day [...] Sign Reading Time Taken Comments Blood Pressure 132/72 12/08/2019 8:59 AM EDT Pulse 74 12/08/2019 8:59 AM EDT Temperature 36.7 ??C (98 ??F) 12/08/2019 8:59 AM EDT Respiratory Rate 18 12/08/2019 8:59 AM EDT Oxygen Saturation 97% 12/08/2019 8:59 AM EDT Inhaled Oxygen Concentration - - Weight 83.5 kg (184 lb) 12/08/2019 8:59 AM EDT Height 154.9 cm (5' 1 ) 12/08/2019 8:59 AM EDT Body Mass Index 34.77 12/08/2019 8:59 AM EDT documented in this encounter Functional [...] Progress Notes * Mann Irene MD - 12/08/2019 9:00 AM EDT Assessment Diagnoses and all orders for this visit: Annual physical exam Hypercholesterolemia - CBC WITH DIFF; Future - COMPREHENSIVE METABOLIC PANEL; Future Other microscopic hematuria Overview: Added automatically from request for surgery [id number] Claudication (HCC) (Chronic) Comments: stable. Progress Note: Vitals: 12/08/19 0859 BP: 132/72 Pulse: 74 Resp: 18 Temp: 98 ??F (36.7 ??C) SpO2: 97% Weight: 184 lb (83.5 kg) Height: 5' 1 (1.549 m) SUBJECTIVE: Chief Complaint Patient presents with ??? Medicare Annual Wellness medicare HPI: Medicare Wellness Assessment Flowsheet Version: Ms. Hylton is a 74 y.o. female here for an Subsequent Annual [...] bone density assessment. Study was performed on [employer]. Bone Density: Region BMD T-score Z-score [...] of interest. Reported by: Chula Smith PA-C, [facility] on 02/10/2019 12:48:00 PM. Abnormal Pains [...] past eleven o'clock.: correct number placement, 1 pt;correct hand placement, 1 pt Number of Words Recalled: 3 Dementia: Negative No exam data present No results found for this visit on 12/08/19. Patient Active Problem List Diagnosis ??? Hypercholesterolemia ??? OA (osteoarthritis)-s/p RIGHT TOTAL HIP REPLACEMENT 02/16/14. ??? Hip joint replacement by other means ??? Other physical therapy ??? Hematuria ??? Urine culture positive Past Medical History: Diagnosis Date ??? Allergy ??? Arthritis generalized ??? Does use hearing aid bilateral ??? Hyperlipidemia ??? Kidney stone hx of ??? Motion sickness seasick ??? Osteopenia ??? Urinary tract infection frequent UTI's Past Surgical History: Procedure Laterality Date ??? BLADDER TUMOR EXCISION N/A 10/26/2019 cystoscopy, bladder biopsy and fulguration of lesions of bladder; Surgeon: Amari Wheeler MD; Location: [facility] MAIN OR; Service: Urology ??? CATARACT REMOVAL Right 02/28/2019 RIGHT EYE CATARACT EXTRACTION WITH PHACOEMULSIFICATION AND INTRAOCULAR LENS; Surgeon: Conor Ramirez MD; Location: [facility]; Service: Ophthalmology ??? CATARACT REMOVAL Left 03/14/2019 LEFT EYE CATARACT EXTRACTION WITH PHACOEMULSIFICATION AND INTRAOCULAR LENS; Surgeon: Conor Ramirez MD; Location: [facility]; Service: Ophthalmology ??? COLONOSCOPY ??? CYSTOSCOPY Right 11/28/2019 cystoscopy right stent placement, right extracorporeal shock wave lithotripsy; Surgeon: Dinh Wheeler MD; Location: [facility] MAIN OR; Service: Urology ??? HEMORRHOID SURGERY ??? HIP ARTHROPLASTY Right 02/16/2014 RIGHT TOTAL HIP REPLACEMENT; Surgeon: Bruce Oh MD; Location: [facility] MAIN OR; Service: Orthopedics ??? HYSTERECTOMY complete ??? LITHOTRIPSY Right 11/28/2019 Surgeon: Amari Wheeler MD; Location: [facility] MAIN OR; Service: Urology ??? LUMBAR DISC SURGERY 11/03/2012 Surgeon: Elza Bautista MD; Location: [facility] MAIN OR; Service: ??? TOTAL KNEE ARTHROPLASTY Left 12/28/2018 left knee total replacement; Surgeon: Bruce Oh MD; Location: [facility] MAIN OR; Service: Orthopedics Allergies Allergen Reactions ??? Celecoxib Rash Current [...] once a week. 12 Cap 3 ??? HYDROcodone-acetaminophen (NORCO) 5-325 mg Oral Tablet Take 1 Tab by mouth every 4 hours as needed for Major Surgery/Trauma (G89.18) for up to 10 days. 30 Tab 0 ??? loratadine-pseudoephedrine (LORATADINE-PSEUDOEPHEDRINE) 10-240 mg Oral Tablet Sustained Tagwtst18 hr Take 1 Tab by mouth daily. [...] Years: 5.00 Pack years: 2.50 Types: Cigarettes ??? Smokeless tobacco: Never Used ??? Tobacco comment: quit in 1998 Substance and Sexual Activity ??? Alcohol use: No ??? Drug use: No Family History Problem Relation Age of Onset ??? Early Father accident ??? Early Sister ??? Substance Abuse Sister ??? Early Brother accident ??? Early Mother accident ??? Anesth Problems Neg Hx Immunization History Administered Date(s) Administered ??? Influenza High Dose 02/21/2015, 02/21/2019 ??? Influenza Vaccine, Unspecified Formulation 02/04/2014, 02/09/2016 ??? PPD Test 02/20/2014 ??? Pneumococcal Conjugate Vaccine 13 Valent 02/28/2015 ??? Pneumococcal Polysaccharide 23 Valent 10/13/2012 ??? Tdap 02/28/2015 Health Maintenance Topic Date Due ??? Zoster (1 of 2) 09/19/1997 ??? Wellness Exam Medicare 12/07/2019 ??? Fall Risk Assessment 12/07/2019 ??? Influenza Vaccine (1) 01/10/2020 ??? Breast Cancer Screening 10/15/2020 ??? Colon Cancer Screening: Colonoscopy 07/10/2024 ??? Bone Density Screening Completed ??? Hepatitis C Screening Completed ??? Pneumococcal Vaccine 65+ Completed Health Maintenance Due Topic Date Due ??? Zoster (1 of 2) 09/19/1997 ??? Wellness Exam Medicare 12/07/2019 ??? Fall Risk Assessment 12/07/2019 Patient Care Team: Mann Irene MD as PCP - General (Internal Medicine) Additional issues addressed today: Review of Systems [...] is not nervous/anxious. OBJECTIVE: Physical Exam Vitals signs reviewed. Constitutional: General: She is not in acute distress. Appearance: She is well-developed. She is not diaphoretic. HENT: Head: Normocephalic and atraumatic. Right Ear: External ear normal. Left Ear: External ear normal. Mouth/Throat: Pharynx: No oropharyngeal exudate. Eyes: General: No scleral icterus. Right eye: No discharge. Left eye: No discharge. Conjunctiva/sclera: Conjunctivae normal. Pupils: Pupils are equal, round, and reactive to light. Neck: Musculoskeletal: Normal range of motion and neck supple. Thyroid: No thyromegaly. Cardiovascular: Rate and Rhythm: Normal rate and regular rhythm. Heart sounds: Normal heart sounds. No murmur. No gallop. Pulmonary: Effort: Pulmonary effort is normal. No respiratory distress. Breath sounds: Normal breath sounds. No wheezing or rales. Chest: Chest wall: No tenderness. Abdominal: General: Bowel sounds are normal. Palpations: Abdomen is soft. There is no mass. Tenderness: There is no abdominal tenderness. There is no guarding or rebound. Musculoskeletal: Normal range of motion. General: No tenderness. Lymphadenopathy: Cervical: No cervical adenopathy. Skin: General: Skin is warm and dry. Neurological: Mental Status: She is alert and oriented to person, place, and time. documented in this encounter Plan of Treatment Upcoming Encounters Date Type Department Care Team (Late st Contact Info) Description 05/16/2024 9:30 AM EST Office Visit [facility] [address] [place] [address] Gilda Francis PA [address] [place] [address] documented as of this encounter Results * (ABNORMAL) COMPREHENSIVE METABOLIC PANEL (01/12/2020 8:01 AM EDT) Sodium 141 136 - 145 mmol/L 01/12/2020 4:20 PM EDT [facility] Potassium 4.3 3.5 - 5.0 mmol/L 01/12/2020 4:20 PM EDT [facility] Chloride 107 98 - 107 mmol/L 01/12/2020 4:20 PM EDT [facility] Total CO2 27 22 - 29 mmol/L [...] 18 <=40 U/L 01/12/2020 4:20 PM EDT [facility] Alk Phos 95 36 - 123 U/L 01/12/2020 4:20 PM EDT [facility] GFR Afr Am 98 >=60 mL/min/1.7 3 m2 01/12/2020 4:20 PM T [facility] GFR Non Afr Am 85 >=60 mL/min/1.7 3 m2 01/12/2020 4:20 PM EDT [facility] Comment: This estimated GFR was [...] ORDERABLES Final Res ult [facility] [address] [facility], [address] [place] [id number] [facility] [address] [place], [place] [id number] * (ABNORMAL) CBC WITH DIFF (01/12/2020 8:01 AM EDT) WBC 11.0(H) 3.7 - 10.3 x10(3)/mcL 01/12/2020 3:55 PM EDT [facility] RBC 4.77 3.90 - 5.20 x10(6)/mcL 01/12/2020 3:55 PM EDT [facility] Hgb 13.8 11.2 - 15.7 g/dL 01/12/2020 3:55 PM EDT [facility] Hct 43.6 34.0 - 45.0 % 01/12/2020 3:55 PM EDT [facility] MCV 91.4 80.0 - 100.0 fL 01/12/2020 3:55 PM EDT [facility] MCH 28.9 26.0 - 34.0 pg 01/12/2020 3:55 PM EDT [facility] MCHC 31.7 30.7 - 35.5 g/dL 01/12/2020 3:55 PM EDT [facility] RDW 14.7 <=14.9 % 01/12/2020 3:55 PM EDT [facility] Platelet 338 155 - 369 x10(3)/mcL 01/12/2020 3:55 PM EDT [facility] MPV 10.3 8.8 - 12.5 fL 01/12/2020 3:55 PM EDT [facility] Neut Percent 43.8 % 01/12/2020 3:55 PM EDT [facility] Comment:Neutrophils equals s egs plus bands Imm Gran% 0.3 % 01/12/2020 3:55 PM EDT [facility] Comment:Automated count of m etamyelocytes, myelocytes and promyelocytes. Lymph Percent 38.9 % 01/12/2020 3:55 PM EDT [facility] Pondera Percent 8.7 % 01/12/2020 3:55 PM EDT [facility] Eos Percent 7.6 % 01/12/2020 3:55 PM EDT [facility] Baso Percent 0.7 % 01/12/2020 3:55 PM EDT [facility] Neut # 4.8 1.6 - 6.1 x10(3)/mcL 01/12/2020 3:55 PM EDT [facility] Comment:Neutrophils equals s egs plus bands IMMGRAN# 0.0 0.0 - 0.1 x10(3)/mcL 01/12/2020 3:55 PM EDT [facility] Comment:Automated count of m etamyelocytes, myelocytes and promyelocytes. An absolute IG <0.1 is reported as 0.0. Lymph # 4.3(H) 1.2 - 3.9 x10(3)/mcL 01/12/2020 3:55 PM EDT [facility] Pondera # 1.0(H) 0.3 - 0.9 x10(3)/mcL 01/12/2020 3:55 PM EDT [facility] Eos# 0.8(H) 0.0 - 0.5 x10(3)/mcL 01/12/2020 3:55 PM EDT [facility] Baso # 0.1 0.0 - 0.1 x10(3)/mcL 01/12/2020 3:55 PM EDT [facility] Blood Venipuncture / Unknown 01/12/2020 8:01 AM EDT 01/12/2020 8:03 AM EDT us Mann Irene MD HEMATOLOGY ORDERABLES Final Re sult [facility] [address] [facility] , [address] [place] [id number] documented in this encounter Visit Diagnoses Diagnosis Annual physical exam- Primary Routine general medical examination at a health care facility Hypercholesterolemia Pure hypercholesterolemia Other microscopic hematuria Claudication (HCC) Peripheral vascular disease, unspecified documented in this encounter Additional Health Concerns Infection Onset Date Last Indicated Resolved Time ESBL organism 11/16/2019 11/16/2019 03/28/2022 1:0 5 PM EST Assessment Noted Time A fall risk assessment has been complete d for the patient 12/08/2019 8:58 AM EDT documented as of this encounter Care Teams Brick Veneer Maker Relationship Specialty Start Date End Date Mann Irene MD [address] [place], [place] [id number] PCP - General Internal Medicine 08/23/12 07/13/22 documented as of this encounter
--- OUTSIDE RECORDS SUMMARY | 2024-03-27 15:02 | XMS_ITS | Encounter Summary ---
Author Organization [place] [address] Care Team Providers Care Deburr Technician Name Role Phone Mann Irene MD Primary Care Provider Reason for Visit * Reason Comments Post-Operative Exam patient states she i s doing well * Consultation (Routine) - Closed Specialty Diagnoses / Procedures Referred By Contac t Referred To Contact Urology Diagnoses Recurrent UTI (urinary tract infection) Mann Irene MD [address] [place] [address] Phone: tel: fax: Amari Wheeler MD Phone: tel: fax: Referral ID Status Reason Start Date Expiration Date Visits Re quested Visits Authorized [id number] Closed 07/04/2019 07/03/2020 99 99 Encounter Details Date Type Department Care Team (Late st Contact Info) Description 01/25/2020 2:00 PM EDT Office Visit [facility] [address] [place] [address] Amari Wheeler MD [address] [place], [place] [id number] Asymptomatic microscopic hematuria (Primary Dx) Social History Tobacco Use [...] Sign Reading Time Taken Comments Blood Pressure 124/70 01/25/2020 1:51 PM EDT Pulse - - Temperature - - Respiratory Rate - - Oxygen Saturation - - Inhaled Oxygen Concentration - - Weight 83.1 kg (183 lb 3.2 oz) 01/25/2020 1:51 P M EDT Height 154.9 cm (5' 1 ) 01/25/2020 1:51 PM EDT Body Mass Index 34.62 01/25/2020 1:51 PM EDT documented in this encounter Functional Status * Is the person deaf or does he/she have serious difficulty hearing? Answer Date of Assessment Author No 12/08/2019 8:58 AM Tomi Huggins CCMA * Is the [...] Author No 12/08/2019 8:58 AM [facility] in this encounter Progress Notes * Amari Wheeler MD - 01/25/2020 2:00 PM EDT [facility] Urology Established Patient E&M Stella [place] 1945 Allergies Allergen Reactions ??? Celecoxib Rash Chief Complaint(s): Chief Complaint Patient presents with ??? Post-Operative Exam patient states she is doing well HPI: 74 y.o. female No specialty comments available. Reviewed and up to date Patient doing well post op, no issues PVR by bladder scanner- NA Results for orders placed or performed in visit on 01/25/20 [facility] UR[facility] Result Value Ref Range UA Color POC Yellow UA Appear POC Clear Clear UA Gluc POC Negative Negative mg/dL UA Bili POC Negative Negative UA Ketones POC Negative Negative mg/dL UA SG POC 1.025 1.001 - 1.035 UA Blood POC Trace-Intact (A) Negative UA pH POC 6.5 5.0 - 8.0 UA Protein POC Negative Negative mg/dL UA Urobilinogen POC 0.2 0.2, 1.0 UA Nitrite POC Negative Negative UA Leuk Est POC Small (A) Negative Past Medical History: Past Medical History: Diagnosis [...] of bladder; Surgeon: Amari Wheeler MD; Location: [facility] OR; Service: Urology ??? CATARACT REMOVAL Right 02/28/2019 RIGHT EYE CATARACT EXTRACTION WITH PHACOEMULSIFICATION AND INTRAOCULAR LENS; Surgeon: Conor Ramirez MD; Location: [facility]; Service: Ophthalmology ??? CATARACT REMOVAL Left 03/14/2019 LEFT EYE CATARACT EXTRACTION WITH PHACOEMULSIFICATION AND INTRAOCULAR LENS; Surgeon: Conor Ramirez MD; Location: [facility]; Service: Ophthalmology ??? COLONOSCOPY ??? CYSTOSCOPY [...] MD; Location: [facility]; Service: Urology Current Outpatient Medications: Current Outpatient Medications on [...] loratadine-pseudoephedrine (LORATADINE-PSEUDOEPHEDRINE) 10-240 mg Oral Tablet Sustained Uksjtap96 hr Take 1 Tab by mouth daily. 30 Tab 2 ??? tamsulosin (FLOMAX) 0.4 mg Oral Capsule TAKE 1 CAPSULE BY MOUTH EVERY DAY AT NIGHT 30 Cap 0 No current facility-administered medications on file prior to visit. Allergies: Allergies Allergen Reactions ??? Celecoxib Rash Constitutional: Fever No Weight loss No Fatigue No Genitourinary: Sex issues no Pelvic Pain no Frequent infxn no Today???s Brief PE: Vital Signs: BP 124/70 (BP Location: Right arm, Patient Position: Sitting) Ht 5' 1 (1.549 m) Wt 183 lb 3.2 oz (83.1 kg) LMP (LMP Unknown) BMI 34.62 kg/m?? No PE required Data: POCT Urinalysis: Labs: No results found for: WBC, HGB, HCT, MCV, PLT No results found for: CREATININE, BUN, NA, K, CL, CO2 No results found for: PSA Results for orders placed or performed in visit on 01/25/20 [facility] UR[facility] Result Value Ref Range UA Color POC Yellow UA Appear POC Clear Clear UA Gluc POC Negative Negative mg/dL UA Bili POC Negative Negative UA Ketones POC Negative Negative mg/dL UA SG POC 1.025 1.001 - 1.035 UA Blood POC Trace-Intact (A) Negative UA pH POC 6.5 5.0 - 8.0 UA Protein POC Negative Negative mg/dL UA Urobilinogen POC 0.2 0.2, 1.0 UA Nitrite POC Negative Negative UA Leuk Est POC Small (A) Negative Imaging: Imaging studies (both written report and images on file) were reviewed in [facility], if pertinent see plan Existing Medical Record: Progress Notes, Consults and miscellaneous records were reviewed in [facility] and pertinent positives are: see synopsis Outside paper records reviewed: none Diagnoses: No diagnosis found. Plan: Hematuria ?Urine culture ?CT urogram ?Cystoscopy under local anesthesia in office ?Urine Cytology ?? Recurrent UTI ?Discussed with patient definition of recurrent UTI. Refers to >=2 infections in 6 months or >=3 infections in one year. Patient??does??meet criteria for recurrent UTI's.Discussed options including medical prophylaxis, topical vaginal hormonal therapy, and increased hygiene. Discussed correctable causes of recurrent UTI's including avoiding spermicide and diaphragm use, and diabetes. ?Discussed some evidence that shows cranberry juice can prevent UTI's in sexually active women. ?Local cystoscopy in office if infections persist ?Imaging- renal US to evaluate for hydronephrosis, renal stones ?If infections continue to persist, can initiate prophylactic abx ?Discussed getting cultures done prior to initiating antibiotics in the future to document infections ?? 10-10-19 ?CT scan - IMPRESSION: 1. 1.5 cm right lower pole renal stone. 2. Right kidney urothelial enhancement, suggesting urothelial inflammation. 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 3. 3 cm AAA.?Has possible CIS versus chronic inflammation in bladder ?Will perform cysto bladder biopsy ?Get KUB to see if stone visible,. Has small AAA which shouldn't preclude patient from ESWL? 10-31-19 ?Telephone visit - discussed with patient negative result ?Had post op UTI, treated with ABX ?Return to clinic to discuss stone surgery ?? 11-16-19 Patient here to discuss surgery Given stone, will proceed with cysto, stent and right ESWL 01-25-20 S/P ESWL and right ureteroscopy, laser litho 01-02-20 Patient doing well Follow up 6 months with KUB Amari Wheeler MD [facility] [address] [place] [address] 01/25/2020 1:54 PM documented in this encounter Plan of Treatment Upcoming Encounters Date Type Department Care Team (Late st Contact Info) Description 05/16/2024 9:30 AM EST Office Visit [facility] [address] [place] [address] Gilda Francis PA [address] [place] [address] documented as of this encounter Procedures Procedure Name Priority Date/Time Associated Diagnosis Comments [facility] URINALYSIS POC Routine 01/25/2020 1: 46 PM EDT Asymptomatic microscopic hematuria documented in this encounter Results * (ABNORMAL) [facility] URINALYSIS POC (01/25/2020 1:46 PM EDT) UA Color POC Yellow 01/25/2020 1:48 PM EDT [facility] [place] UA Appear POC Clear Clear 01/25/2020 1:48 PM EDT [facility] [place] UA Gluc POC Negative Negative mg/dL 01/25/2020 1:48 PM EDT [facility] [place] UA Bili POC Negative Negative 01/25/2020 1:48 PM EDT [facility] [place] UA Ketones POC Negative Negative mg/dL 01/25/2020 1:48 PM EDT [facility] [place] UA SG POC 1.025 1.001 - 1.035 01/25/2020 1:48 PM EDT [facility] [place] UA Blood POC Trace-Intact (A) Negative 01/25/2020 1:48 PM EDT [facility] [place] UA pH POC 6.5 5.0 - 8.0 01/25/2020 1:48 PM EDT [facility] [place] UA Protein POC Negative Negative mg/dL 01/25/2020 1:48 PM EDT [facility] [place] UA Urobilinogen POC 0.2 0.2, 1.0 01/25/2020 1:48 PM EDT [facility] [place] UA Nitrite POC Negative Negative 01/25/2020 1:48 PM EDT [facility] [place] UA Leuk Est POC Small(A) Negative 0 1:48 PM EDT [facility] [place] Urine URINE SPECIMEN COLLECTION / Unknown 01/25/2020 1:46 PM EDT 01/25/2020 1:48 PM EDT Amari Wheeler MD POINT OF CARE TEST ORDERABLES Fi nal Result [facility] [place] [address] [place] [address] documented in this encounter Visit Diagnoses Diagnosis Asymptomatic microscopic hematuria- Primary documented in this encounter Additional Health Concerns Infection Onset Date Last Indicated Resolved Time ESBL organism 11/16/2019 11/16/2019 03/28/2022 1:0 5 PM EST Assessment Noted Time A fall risk assessment has been complete d for the patient 12/08/2019 8:58 AM EDT documented as of this encounter Care Teams Deburr Technician Relationship Specialty Start Date End Date Mann Irene MD [address] [place] [address] PCP - General Internal Medicine 08/23/12 07/13/22 documented as of this encounter
--- OUTSIDE RECORDS SUMMARY | 2024-03-27 15:02 | XMS_ITS | Encounter Summary ---
Author Organization [place] [address] Care Team Providers Care Fashion Adviser Name Role Phone Mann Irene MD Primary Care Provider [phone] Reason for Visit * Reason Comments Fatigue increased fatigue si nce kidney stone removal x3 weeks Encounter Details Date Type Department Care Team (Late st Contact Info) Description 03/22/2020 4:30 PM EST Office Visit [facility] [address] [place] [address] Ramandeep Noriega APRN [address] [place], [place] [id number] Malaise and fatigue (Primary Dx); Vitamin D [...] PM EST documented as of this encounter Last Filed Vital Signs Vital Sign Reading Time Taken Comments Blood Pressure 138/72 03/22/2020 4:23 PM EST Pulse 72 03/22/2020 4:23 PM EST Temperature 36.4 ??C (97.6 ??F) 03/22/2020 4:23 PM ES T Respiratory Rate 16 03/22/2020 4:23 PM EST Oxygen Saturation 96% 03/22/2020 4:23 PM EST Inhaled Oxygen Concentration - - Weight 79.8 kg (176 lb) 03/22/2020 4:23 PM EST Height 154.9 cm (5' 1 ) 03/22/2020 4:23 PM EST Body Mass Index 33.25 03/22/2020 4:23 PM EST documented in this encounter Functional [...] End Date cephALEXin (KEFLEX) 500 mg Oral CapsuleIndications: Recurrent UTI (urinary tract infection) Take 1 Cap by mouth every 8 hours for 7 days. 21 Cap 03/22/2020 03/29/2020 documented in this encounter Progress Notes * Ramandeep Noriega APRN - 03/22/2020 4:30 PM EST Assessment Diagnoses and all orders for this visit: Malaise and fatigue - cyanocobalamin injection 1,000 mcg - CBC WITH DIFF; Future - COMPREHENSIVE METABOLIC PANEL; Future - THYROID STIMULATING HORMONE; Future - VITAMIN D 25 HYDROXY; Future - SARS-COV-2 IGG; Future Vitamin D deficiency - VITAMIN D 25 HYDROXY; Future Recurrent UTI (urinary tract infection) - URINE CULTURE (NO STAIN); Future - cephALEXin (KEFLEX) 500 mg Oral Capsule; Take 1 Cap by mouth every 8 hours for 7 days. Dispense: 21 Cap; Refill: 0 Other orders - [facility] P[facility] has generalized complaints. No focal symptoms. Vitals are stable. No history to support acute anemia - last had labs 2 months ago that were normal. She does have large RBC and trace WBC in UA with mild dehydration Will give b12 to help with fatigue. Will treat for possible residual urinary infection. Will check labs given recent procedure and generalized complaints. She will return in the morning for the bloodwork and she will bring us a urine culture back since she was not able to provide enough urine for the culture today. Progress Note: Vitals: 03/22/20 1623 BP: 138/72 Pulse: 72 Resp: 16 Temp: 97.6 ??F (36.4 ??C) TempSrc: Temporal SpO2: 96% Weight: 176 lb (79.8 kg) Height: 5' 1 (1.549 m) SUBJECTIVE: Chief Complaint Patient presents with ??? Fatigue increased fatigue since kidney stone removal x3 weeks HPI: Patient presents to office with complaints of generalized fatigue for about 3 weeks. Has no energy.No fever, cough or congestion. Denies chest pain, shortness of breath, palpitations or edema. No blood loss. No vomiting or diarrhea. No change in bowel movements. Denies dysuria, urgency or frequency. Hx of kidney stones and infection. Has had cystoscopy in November and again in December. Did have follow-up office visit in January with Dr. Irene and had a CBC and CMP and both looked okay then. Review of Systems Constitutional: Positive for fatigue. Negative for fever. Respiratory: Negative for cough, shortness of breath and wheezing. Cardiovascular: Negative for chest pain, palpitations and leg swelling. Gastrointestinal: Negative for abdominal pain, constipation, diarrhea and vomiting. Genitourinary: Negative for decreased urine volume, difficulty urinating, dysuria, flank pain, frequency, hematuria and urgency. Musculoskeletal: Negative for myalgias. Skin: Negative for rash and wound. Hematological: Negative for adenopathy. Does not bruise/bleed easily. OBJECTIVE: Results for orders placed or performed in visit on 03/22/20 [facility] UR[facility]YS[facility] POC Result Value Ref Range UA Color POC Yellow Color UA Appear POC Clear Clear UA Gluc POC Negative Negative mg/dL UA Bili POC Small (A) Negative UA Ketones POC Negative Negative mg/dL UA SG POC >=1.030 1.001 - 1.035 no units UA Blood POC Large (A) Negative UA pH POC 5.5 5.0 - 8.0 pH UA Protein POC 100 (A) Negative mg/dL UA Urobilinogen POC 0.2 0.2, 1.0 UA Nitrite POC Negative Negative UA Leuk Est POC Small (A) Negative Physical Exam Constitutional: Appearance: She is well-developed. HENT: Head: Normocephalic and atraumatic. Eyes: Pupils: Pupils are equal, round, and reactive to light. Neck: Musculoskeletal: Normal range of motion and neck supple. Thyroid: No thyromegaly. Cardiovascular: Rate and Rhythm: Normal rate and regular rhythm. Heart sounds: Normal heart sounds. No murmur. No friction rub. No gallop. Pulmonary: Effort: Pulmonary effort is normal. Breath sounds: Normal breath sounds. No wheezing or rales. Abdominal: Palpations: Abdomen is soft. Tenderness: There is no abdominal tenderness. There is no guarding or rebound. Lymphadenopathy: Cervical: No cervical adenopathy. Skin: General: Skin is warm and dry. Coloration: Skin is not pale. Findings: No erythema or rash. Neurological: Mental Status: She is alert and oriented to person, place, and time. Cranial Nerves: No cranial nerve deficit. Psychiatric: Behavior: Behavior normal. Thought Content: Thought content normal. Judgment: Judgment normal. documented in this encounter Plan of Treatment Upcoming Encounters Date Type Department Care Team (Late st Contact Info) Description 05/16/2024 9:30 AM EST Office Visit [facility] [address] [place] [address] Gilda Francis PA [address] [place] [address] documented as of this encounter Procedures Procedure Name Priority Date/Time Associated Diagnosis Comments [facility] URINALYSIS POC Routine 03/22/2020 4: 41 PM EST Malaise and fatigue documented in this encounter Results * SARS-COV-2 IGG (03/23/2020 7:53 AM EST) SARS-CoV-2 IgG (Nucleocapsid) Negative 03/23/2020 5:30 PM EST [facility] Blood VENOUS BLOOD / Unknown Venipuncture / Unknown 03/23/2020 7:53 AM EST 03/23/2020 7:54 AM EST Narrative [facility] - 03/23/2020 5:30 PM EST The SARS-CoV-2 [...] protective immunity. [facility] Provider Fact Sheet: https://www.fda.gov/media/569128/download [facility] Patient Fact Sheet: ??https://www.fda.gov/media/148001/download Ramandeep Noriega DUPLICATOR PUNCH SET UP OPERATOR IMMUNOLOGY ORDERABLES Final Result [facility] [address] [facility] , [place] [address] * (ABNORMAL) URINE CULTURE (NO STAIN) (03/23/2020 7:53 AM EST) Culture Positive Growth(A) 03/25/2020 7:58 AM EST [facility] Culture >[id number] CFU/mL Escherichia coli SUSCEPTIBI LITY RESULT 03/25/2020 7:58 AM EST [facility] Urine URINE SPECIMEN COLLECTION, CLEAN CATCH / [...] tho xazole SUSCEPTIBILITY RESULT <=2/38 ug/mL: Susceptible us Ramandeep Noriega DUPLICATOR PUNCH SET UP OPERATOR MICROBIOLOGY - GENERAL ORDE DARIUSZ Final Result [facility] [address] [facility] , [place] [address] * VITAMIN D 25 HYDROXY (03/23/2020 7:53 AM EST) Pathologist [facility] Vit D 25 OH 32.6 30.0 - 120.0 ng/mL 03/23/2020 8:14 PM EST [facility] Comment: INTERPRETIVE INFORMATION: ??Vitamin D, 25-Hydroxy <20 [...] CHEMISTRY ORDERABLES Final Result Performing Organization Address [facility] de Phone Number [facility] [address] , [place] [address] * THYROID STIMULATING HORMONE (03/23/2020 7:53 AM EST) Pathologist [facility] TSH 0.629 0.270 - 4.200 mcIU/mL 03/23/2020 4:58 PM EST [facility] Blood VENOUS BLOOD / Unknown Venipuncture / Unknown 03/23/2020 7:53 AM EST 03/23/2020 7:54 AM EST Narrative [facility] - 03/23/2020 4:58 PM EST Ingestion of lakshmi doses of biotin (>5 mg/day) taken within 8 hours of drawing blood sample can interfere with this immunoassay test. [facility] CHEMISTRY ORDERABLES Final Result Performing Organization Address [facility] de Phone Number [facility] [address] , [place] [address] * (ABNORMAL) COMPREHENSIVE METABOLIC PANEL (03/23/2020 7:53 [...] mL/min/1.7 3 m2 03/23/2020 4:58 PM EST [facility] GFR Non Afr Am 87 >=60 mL/min/1.7 3 m2 03/23/2020 4:58 PM EST [facility] Comment: This estimated GFR was [...] Ramandeep Noriega APRN CHEMISTRY ORDERABLES Final Result [facility] [address] [facility], [place] [address] [facility] [address] [place] [address] * CBC WITH DIFF (03/23/2020 7:53 AM [...] 3:16 PM EST [facility] RDW 13.6 <=14.9 % 03/23/2020 3:16 PM EST [facility] Platelet 300 155 - 369 x10(3)/mcL 03/23/2020 3:16 PM EST [facility] MPV 10.3 8.8 - 12.5 fL 03/23/2020 3:16 PM EST [facility] Neut Percent 59.8 % 03/23/2020 3:16 PM EST [facility] Comment:Neutrophils equals s egs plus bands Imm Gran% 0.3 % 03/23/2020 3:16 PM EST [facility] Comment:Automated count of m etamyelocytes, myelocytes and promyelocytes. Lymph Percent 29.2 % 03/23/2020 3:16 PM EST [facility] [place] Percent 7.5 % 03/23/2020 3:16 PM EST [facility] Eos Percent 2.8 % 03/23/2020 3:16 PM EST [facility] Baso Percent 0.4 % 03/23/2020 3:16 PM EST [facility] Neut # 4.7 1.6 - 6.1 x10(3)/mcL 03/23/2020 3:16 PM EST [facility] Comment:Neutrophils equals s egs plus bands IMMGRAN# 0.0 0.0 - 0.1 x10(3)/mcL 03/23/2020 3:16 PM EST [facility] Comment:Automated count of m etamyelocytes, myelocytes and promyelocytes. An absolute IG <0.1 is reported as 0.0. Lymph # 2.3 1.2 - 3.9 x10(3)/mcL 03/23/2020 3:16 PM EST [facility] [place] # 0.6 0.3 - 0.9 x10(3)/mcL 03/23/2020 3:16 PM EST [facility] Eos# 0.2 0.0 - 0.5 x10(3)/mcL 03/23/2020 3:16 PM EST [facility] Baso # 0.0 0.0 - 0.1 x10(3)/mcL 03/23/2020 3:16 PM EST [facility] Blood Venipuncture / Unknown 03/23/2020 7:53 AM EST 03/23/2020 7:54 AM EST us Ramandeep Noriega DUPLICATOR PUNCH SET UP OPERATOR HEMATOLOGY ORDERABLES Final Result [facility] [address] [facility] , [place] [address] * (ABNORMAL) SEP URINALYSIS POC (03/22/2020 4:41 PM EST) UA Color POC Yellow Color 03/22/2020 4:43 PM EST [facility] [place] UA Appear POC Clear Clear 03/22/2020 4:43 PM EST [facility] [place] UA Gluc POC Negative Negative mg/dL 03/22/2020 4:43 PM EST [facility] [place] UA Bili POC Small(A) Negative 03/22/2020 4:43 PM EST [facility] [place] UA Ketones POC Negative Negative mg/dL 03/22/2020 4:43 PM EST [facility] [place] UA SG POC >=1.030 1.001 - 1.035 no units 03/22/2020 4:43 PM EST [facility] [place] UA Blood POC Large(A) Negative 03/22/2020 4:43 PM EST [facility] [place] UA pH POC 5.5 5.0 - 8.0 pH 03/22/2020 4:43 PM EST [facility] [place] UA Protein POC 100(A) Negative mg/dL 03/22/2020 4:43 PM EST [facility] [place] UA Urobilinogen POC 0.2 0.2, 1.0 03/22/2020 4:43 PM EST [facility] [place] UA Nitrite POC Negative Negative 03/22/2020 4:43 PM EST [facility] [place] UA Leuk Est POC Small(A) Negative 0 4:43 PM EST [facility] [place] Urine URINE SPECIMEN COLLECTION / Unknown 03/22/2020 4:41 PM EST 03/22/2020 4:43 PM EST Ramandeep Noriega APRN POINT OF CARE TEST ORDERABL ES Final Result [facility] [address] [place] [address] documented in this encounter Visit Diagnoses Diagnosis Malaise and fatigue- Primary Other malaise and fatigue Vitamin D deficiency Unspecified vitamin D deficiency Recurrent UTI (urinary tract infection) Urinary tract infection, site not specified documented in this encounter Administered Medications Inactive Administered Medications - up to 1 most recent administrations Medication Order MAR Action Action Date Dose Rate Site cyanocobalamin injection 1,000 mcg 1,000 mcg, Intramuscular, ONCE, 1 dose, On Gretel 03/22/20 at 1645, Dx: 1. Malaise and fatigueIndications:Mal aise and fatigue Given 03/22/2020 4:59 PM EST 1,000 mcg Left upper gluteus documented in this encounter Additional Health Concerns Infection Onset Date Last Indicated Resolved Time ESBL organism 11/16/2019 11/16/2019 03/28/2022 1:0 5 PM EST Assessment Noted Time A fall risk assessment has been complete d for the patient 12/08/2019 8:58 AM EDT documented as of this encounter Care Teams Fashion Adviser Relationship Specialty Start Date End Date Mann Irene MD [address] [place] [address] PCP - General Internal Medicine 08/23/12 07/13/22 documented as of this encounter
--- OUTSIDE RECORDS SUMMARY | 2024-03-27 15:02 | XMS_ITS | Encounter Summary ---
Author Organization [place] [address] Care Team Providers Care Insurance Inspector Name Role Phone Mann Irene MD Primary Care Provider [phone] Reason for Visit * Reason Comments Medication Refill Encounter Details Date Type Department Care Team (Late st Contact Info) Description 02/06/2020 Refill [facility] [place] [address] [address] [address] [place] [address] [place] [address] Medication Refill Social History Tobacco Use [...] of Assessment Author No 12/08/2019 8:58 AM oTmi Huggins CLAUDIA documented as of this encounter [...] TIME PER WEEK 12 Cap 3 02/06/2020 2 documented in this encounter Plan of Treatment Upcoming Encounters Date Type Department Care Team (Late st Contact Info) Description 05/16/2024 9:30 AM EST Office Visit [facility] [address] [place] [address] Gilda Francis PA [address] [place] [address] documented as of this encounter Visit Diagnoses Not on filedocumented in this encounter Discontinued Medications Medication Sig Discontinue Reason Start Date End Da te ergocalciferol (VITAMIN D) 50,000 unit Oral Capsule Take 1 Cap by mouth once a week. 02/11/2019 02/06/2020 documented as of this encounter Additional Health Concerns Infection Onset Date Last Indicated Resolved Time ESBL organism 11/16/2019 11/16/2019 03/28/2022 1:0 5 PM EST Assessment Noted Time A fall risk assessment has been complete d for the patient 12/08/2019 8:58 AM EDT documented as of this encounter Care Teams Insurance Inspector Relationship Specialty Start Date End Date Mann Irene MD [address] [place] [address] PCP - General Internal Medicine 08/23/12 07/13/22 documented as of this encounter
--- OUTSIDE RECORDS SUMMARY | 2024-03-27 15:02 | XMS_ITS | Encounter Summary ---
Author Organization [facility] [place] [address] Care Team Providers Care Laboratory Immunologist Name Role Phone Mann Irene MD Primary Care Provider [phone] Encounter Details Date Type Department Care Team (Latest Contact Info) Description 01/02/2020 Travel Social History Tobacco Use Types Packs/Day [...] EST Office Visit [facility] [address] [place] [id number] Gilda Francis PA [address] [place] [address] documented as of this encounter Visit Diagnoses Not on filedocumented in this encounter Additional Health Concerns Infection Onset Date Last Indicated Resolved Time ESBL organism 11/16/2019 11/16/2019 03/28/2022 1:0 5 PM EST Assessment Noted Time A fall risk assessment has been complete d for the patient 12/08/2019 8:58 AM EDT documented as of this encounter Care Teams Laboratory Immunologist Relationship Specialty Start Date End Date Mann Irene MD [address] [place] [address] PCP - General Internal Medicine 08/23/12 07/13/22 documented as of this encounter
--- OUTSIDE RECORDS SUMMARY | 2024-03-27 15:02 | XMS_ITS | Encounter Summary ---
Author Organization [place] [address] Care Team Providers Care Marketing Reporting Analyst Name Role Phone Mann Irene MD Primary Care Provider [phone] Reason for Visit * Reason Onset Date Comments Appointment Needed 01/04/2020 Labs and Flu Shot Encounter Details Date Type Department Care Team (Late st Contact Info) Description 01/04/2020 Telephone [facility] [place] [facility] [place] [address] [address] [place] [address] Mann Irene MD [facility] [place] [address] Appointment Needed (Labs and Flu Shot) Social History Tobacco Use Types Packs/Day Years [...] 12/08/2019 8:58 AM EDT Sukhjinder Tomi ASHLEY knutsonA * Is the person blind or does he/she have serious difficulty seeing even when wearing glasses? Answer Date of Assessment Author No 12/08/2019 8:58 AM EDT Sukhjinder Tomi eamon, ASHLEYA * Does this person have serious difficulty walking or climbing stairs? Answer Date of Assessment Author No 12/08/2019 8:58 AM EDT Sukhjinder Tomi eamon, CCMA * Does this person have difficulty dressing or bathing? Answer Date of Assessment Author No 12/08/2019 8:58 AM EDT Sukhjinder Tomi eamon, ASHLEYA * Because of a physical, mental or emotional condition, does this person have difficulty doing errands alone such as visiting a doctor's office or shopping? Answer Date of Assessment Author No 12/08/2019 8:58 AM EDT LeticiawesleyTomi ASHLEYA documented as of this encounter Mental Status * Because of a physical, mental or emotional condition, does this person have serious difficulty concentrating, remembering or making decisions? Answer Entry Date Author No 12/08/2019 8:58 AM EDT Sukhjinder Tomi eamon ASHLEYA documented in this encounter Miscellaneous Notes * Telephone Encounter - Shelby Ernandez CCMA - 01/04/2020 12:55 PM EDT Done * Telephone Encounter - Erika Tirado MA - 01/04/2020 12:50 PM EDT Pt calling back and is asking if someone from the office can call her back to reschedule nurse visit appt. Pt states she forgot she had another appt that day. * Telephone Encounter - Shelby Ernandez CCMA - 01/04/2020 12:45 PM EDT Appt made * Telephone Encounter - Trey Farida - 01/04/2020 12:26 PM EDT Appointment Needed Appointment Requested By: Patient Provider Preference: Other Nurse Visit Type of Appt Needed: Other Nurse Visit Requested Timeframe: Other N/A Additional Notes: Patient would like to schedule labs and a flu shot if possible documented in this encounter Plan of Treatment Upcoming Encounters Date Type Department Care Team (Late st Contact Info) Description 05/16/2024 9:30 AM EST Office Visit [facility] [address] [place] [address] Gilda Francis PA [address] [place] [address] documented as of this encounter Visit Diagnoses Not on filedocumented in this encounter Additional Health Concerns Infection Onset Date Last Indicated Resolved Time ESBL organism 11/16/2019 11/16/2019 03/28/2022 1:0 5 PM EST Assessment Noted Time A fall risk assessment has been complete d for the patient 12/08/2019 8:58 AM EDT documented as of this encounter Care Teams Marketing Reporting Analyst Relationship Specialty Start Date End Date Mann Irene MD [address] [place] [address] PCP - General Internal Medicine 08/23/12 07/13/22 documented as of this encounter
--- OUTSIDE RECORDS SUMMARY | 2024-03-27 15:02 | XMS_ITS | Encounter Summary ---
Author Organization [place] [address] Care Team Providers Care Plant Etiologist Name Role Phone Mann Irene MD Primary Care Provider [phone] Reason for Visit * Reason Onset Date Comments Orders 03/27/2020 covid Encounter Details Date Type Department Care Team (Late st Contact Info) Description 03/27/2020 Telephone [facility] [place] [address] [address] Mann [place] [address] [place] [address] Orders (covid ) Social History Tobacco Use Types Packs/Day [...] Assessment Author No 12/08/2019 8:58 AM Tomi Huggins, CCMA * Is the person blind or does he/she have serious difficulty seeing even when wearing glasses? Answer Date of Assessment Author No 12/08/2019 8:58 AM EDTomi José, CCMA * Does this person have serious difficulty walking or climbing stairs? Answer Date of Assessment Author No 12/08/2019 8:58 AM EDTomi José, CCMA * Does this person have difficulty dressing or bathing? Answer Date of Assessment Author No 12/08/2019 8:58 AM EDT Tomi Slaughter, CCMA * Because of a physical, mental or emotional condition, does this person have difficulty doing errands alone such as visiting a doctor's office or shopping? Answer Date of Assessment Author No 12/08/2019 8:58 AM Tomi Huggins, CCMA documented as of this encounter Mental Status * Because of a physical, mental or emotional condition, does this person have serious difficulty concentrating, remembering or making decisions? Answer Entry Date Author No 12/08/2019 8:58 AM Tomi Huggins, CCMA documented in this encounter Miscellaneous Notes * Telephone Encounter - Lucia Avalos CMA - 03/27/2020 2:22 PM EST Pt informed of recommendations * Telephone Encounter - Mann Irene MD - 03/27/2020 2:21 PM EST If asymptomatic, then no reason to get tested at this time. If develops symptoms, will set her up for testing through this office. * Telephone Encounter - Lucia Avalos CMA - 03/27/2020 2:14 PM EST Spoke with pt and she is not having any sxs, pt was exposed on Thu. Please advise * Telephone Encounter - Sofia Hamptonette - 03/27/2020 1:59 PM EST Images from the original note were not included. Order Request Who is requesting the Order(s): Patient What Orders are being requested:covid test Reason Orders are needed/diagnosis: patient was with another person who now has tested positive Should she get test please advise Is patient waiting at lab/hospital/facility: N/A Upcoming PCP appointment date: na Is the patient having this done at a [facility] facility: Yes Travel Screening Question Response In the last month, have you been in contact with someone who was confirmed or suspected to have Coronavirus / COVID-19? Yes Have you had a COVID-19 viral test in the last 14 days? No Do you have any of the following new or worsening symptoms? Diarrhea (diarhea could be from new medciation she just started 03-21-20) Have you traveled internationally in the last month? No Travel History Travel since 02/25/20 No documented travel since 02/25/20 documented in this encounter Plan of Treatment Upcoming Encounters Date Type Department Care Team (Late Contact Info) Description 05/16/2024 9:30 AM EST Office Visit [facility] [address] [place] [address] Gilda Francis PA [address] [place] [address] documented as of this encounter Visit Diagnoses Not on filedocumented in this encounter Additional Health Concerns Infection Onset Date Last Indicated Resolved Time ESBL organism 11/16/2019 11/16/2019 03/28/2022 1:0 5 PM EST Assessment Noted Time A fall risk assessment has been complete d for the patient 12/08/2019 8:58 AM EDT documented as of this encounter Care Teams Plant Etiologist Relationship Specialty Start Date End Date Mann [place] [id number] PCP - General Internal Medicine 08/23/12 07/13/22 documented as of this encounter
--- OUTSIDE RECORDS SUMMARY | 2024-03-27 15:02 | XMS_ITS | Encounter Summary ---
Author Organization [place] [address] Care Team Providers Care Industrial Education Teacher Name Role Phone Mann Irene MD Primary Care Provider Reason for Visit * Reason Comments Medication Refill Encounter Details Date Type Department Care Team (Late st Contact Info) Description 12/09/2019 Refill [facility] [place] [address] [address] Mann Irene MD [...] Author No 12/08/2019 8:58 AM Tomi Huggins deysiroxanne, CLAUDIA * Is the person blind or does he/she have serious difficulty seeing even when wearing glasses? Answer Date of Assessment Author No 12/08/2019 8:58 AM Tomi Huggins deysiroxanne CLAUDIA * Does this person have serious difficulty walking or climbing stairs? Answer Date of Assessment Author No 12/08/2019 8:58 AM Tomi Huggins deysiroxanne CLAUDIA * Does this person have difficulty dressing or bathing? Answer Date of Assessment Author No 12/08/2019 8:58 AM Tomi Huggins, ASHLEYA * Because of a physical, mental or emotional condition, does this person have difficulty doing errands alone such as visiting a doctor's office or shopping? Answer Date of Assessment Author No 12/08/2019 8:58 AM Tomi Huggins deysiroxanne CLAUDIA documented as of this encounter Mental Status * Because of a physical, mental or emotional condition, does this person have serious difficulty concentrating, remembering or making decisions? Answer Entry Date Author No 12/08/2019 8:58 AM Tomi Huggins deysiroxanne CLAUDIA documented in this encounter Ordered Prescriptions Prescription Sig Dispense Quantity Refills Last Filled Start Date End Date atorvastatin (LIPITOR) 10 mg Oral TabletIndications:Pure hypercholesterolemia TAKE 1 TABLET EVERY DAY 90 Tab 0 03/08/20 20 documented in this encounter Plan of Treatment Upcoming Encounters Date Type Department Care Team (Late st Contact Info) Description 05/16/2024 9:30 AM EST Office Visit [facility] [address] [place] [address] Gilda Francis PA [address] [place] [address] documented as of this encounter Visit Diagnoses Diagnosis Pure hypercholesterolemia documented in this encounter Discontinued Medications Medication Sig Discontinue Reason Start Date End Da te atorvastatin (LIPITOR) 10 mg Oral TabletIndications:Pure hypercholesterolemia TAKE 1 TABLET EVERY DAY 04/05/2019 12/09/2019 documented as of this encounter Additional Health Concerns Infection Onset Date Last Indicated Resolved Time ESBL organism 11/16/2019 11/16/2019 03/28/2022 1:0 5 PM EST Assessment Noted Time A fall risk assessment has been complete d for the patient 12/08/2019 8:58 AM EDT documented as of this encounter Care Teams Industrial Education Teacher Relationship Specialty Start Date End Date Mann Irene MD [address] [place] [address] PCP - General Internal Medicine 08/23/12 07/13/22 documented as of this encounter
--- OUTSIDE RECORDS SUMMARY | 2024-03-27 15:02 | XMS_ITS | Encounter Summary ---
Author Organization [place] [address] Care Team Providers Care P 3 Armament/Ordnance Ima Technician Name Role Phone Mann Irene MD Primary Care Provider [phone] Reason for Visit * Auth/Cert/Inpt Specialty Diagnoses / Procedures Referred By Ramona [email or web address] Referred To Contact Diagnoses Nephrolithiasis Nephrolithiasis [N20.0] Procedures [place] CYSTO/URETERO/PYELOSCOPY W/LITHOTRIPSY cystoscopy, right ureteroscopy, laser lithotripsy, right stent placement Referral ID Status Reason Start Date Expiration Date Visits Re quested Visits Authorized [id number] 1 1 Encounter Details Date Type Department Care Team (Late st Contact Info) Description 01/02/2020 3:00 PM EDT - 01/02/2020 4:15 PM EDT Surgery EDG PERIOP [facility] [place] [address] Amari Wheeler MD [address] [place] [address] CYSTOSCOPY, URETEROSCOPY, LASER LITHOTRIPSY, RETROGRADE PYELOGRAM, STENT INSERTION Surgery Details Date/Time Status Location OR Service Patient Class Case Class Case Type Trauma Case? 01/02/2020 3:00 PM Posted EDG MAIN OR EDG _Cysto Urology Same Day Surgery Elective Panel 1 Procedure LRB Anes Op Region Wound Class Comments CYSTOSCOPY, URETEROSCOPY, LASER LITHOTRIPSY, RETROGRADE PYELOGRAM, STENT INSERTION Right General Clean Contaminated cystoscopy, Right Flexible Ureteroscopy, Retrograde, Stent Exchange, Laser Lithotripsy, Basket Retrieval of stone fragments Surgeon Surgeon Role Service Panel Amari Wheeler MD Primary Urology 1 Special Needs holmium laser documented in this encounter Social History Tobacco [...] Sign Reading Time Taken Comments Blood Pressure 134/77 01/02/2020 4:00 PM EDT Pulse 87 01/02/2020 4:00 PM EDT Temperature 36.3 ??C (97.3 ??F) 01/02/2020 3:41 PM ED T Respiratory Rate 14 01/02/2020 4:00 PM EDT Oxygen Saturation 98% 01/02/2020 4:00 PM EDT Inhaled Oxygen Concentration - [...] TO REMOVE STENT IN 72 HOURS +++++++++++++++++++++++++++++++++++++++++++++++++++++++++++++++++++ [facility] Discharge Instructions - Following Anesthesia We [...] our office at . Get Well Soon! [facility] +++++++++++++++++++++++++++++++++++++++++++++++++++++++++++++++++++ Generic Instructions for Pain Medicine [...] Document Released: 10/13/2008 ExitCare?? Patient Information ??2009 [employer]. documented in this encounter Medications at Time [...] Code Departure Means Destination Home or Self Skilled Nursing documented in this encounter H&P Notes * [...] resp even Heart-RRR, last dose of bASA [id number] Distal pulses intact in all four extremities [...] of bladder; Surgeon: Amari Wheeler MD; Location: [facility] MAIN OR; Service: Urology ??? CATARACT REMOVAL Right 02/28/2019 RIGHT EYE CATARACT EXTRACTION WITH PHACOEMULSIFICATION AND INTRAOCULAR LENS; Surgeon: Conor Ramirez MD; Location: [facility]; Service: Ophthalmology ??? CATARACT REMOVAL Left 03/14/2019 LEFT EYE CATARACT EXTRACTION WITH PHACOEMULSIFICATION AND INTRAOCULAR LENS; Surgeon: Conor Ramirez MD; Location: [facility]; Service: Ophthalmology ??? COLONOSCOPY ??? CYSTOSCOPY [...] MD; Location: ED MAIN OR; Service: Orthopedics Current Outpatient Medications: [...] loratadine-pseudoephedrine (LORATADINE-PSEUDOEPHEDRINE) 10-240 mg Oral Tablet Sustained [id number] hr Take 1 Tab by mouth daily. [...] and images on file) were [facility], if pertinent see plan Existing Medical Record: Progress Notes, Consults and miscellaneous records were reviewed in [facility] and pertinent positives are: see synopsis Outside [...] ureteroscopy and laser lithotripsy. Amari Wheeler MD [facility] [address] [place] [address] 12/14/2019 1:38 PM documented in this encounter Procedure Notes * Amari Wheeler MD - 01/02/2020 3:28 PM EDT Images from the original note were not included. [facility] Urology Cysto, Flexible Ureteroscopy, Stent Exchange, Laser [...] in the usual sterile fashion. The 21 Irish cystoscope was inserted. Under direct vision, the [...] as the sheath was removed. A 6 panamanian x 24 JJ stent was then placed [...] I performed the procedure Amari Wheeler MD [facility] U[facility] [address] [place] [address] 01/02/2020 3:29 PM documented in this encounter [...] ??? Review instructions provided by your surgeon. Tooth Cutter ??? On the day of surgery, it is important to have a Tooth Cutter, someone who is 18 years or older. [...] until the child is discharged. If your takes a special type of nipple or [...] or near the operative extremity. ??? Nail citizen of [place] must be removed from operative extremity. Personal [...] a Living Will and Durable Power of Party Plan Demonstrator for Healthcare, please bring a copy. ??? [...] are here. [facility] Day [facility] - [facility] at [phone]; [facility] SDS: Patient Entrance 3A, take [place] elevator to 2nd floor - [address] [place] [phone] documented in this encounter Plan of Treatment Upcoming Encounters Date Type Department Care Team (Late st Contact Info) Description 05/16/2024 9:30 AM EST Office Visit [facility] [address] [facility] [address] Gilda Francis PA [address] [facility] [address] documented as of this [...] Comp See Note 01/06/2020 9:39 AM EDT [facility] Comment: Calculi composed primarily of: 80% calcium [...] composition determined by FTIR analysis. Performed By: [facility] [employer] [address] [place] [id number] Adobe Developer: Lobo Aguilar MD, MS Calculi Mass 37 mg 01/06/2020 9:39 AM EDT [facility] Calculi Number Numerous 01/06/2020 9:39 AM EDT [facility] Calculi Size 1 to 4 mm 01/06/2020 9:39 AM EDT [facility] Calculi Desc See Note 01/06/2020 9:39 AM EDT [facility] Comment: Specimen received in a wet gel substance, not the preferred dry state. Wet specimens often delay analysis. Specimen consists of numerous, small, brown/brown, irregular calculi fragments. Calculus STRUCTURE OF RIGHT URETERAL ORIFICE / Unknown 01/02/2020 3:31 PM EDT 01/02/2020 4:08 PM EDT us Amari Wheeler MD MICROBIOLOGY - GENERAL ORDERABLE S Final Result [facility] [address] [place] [address] documented in this encounter Visit Diagnoses Diagnosis Nephrolithiasis- Primary Calculus of kidney Nephrolithiasis Calculus of kidney documented in this encounter Admitting Diagnoses Diagnosis Nephrolithiasis Calculus of kidney documented in this encounter Administered Medications Inactive Administered Medications - up to 1 most recent administrations Medication Order MAR Action Action Date Dose Rate Site acetaminophen (TYLENOL) tablet 1,000 mg 1,000 mg, Oral, PREPROCEDURE, 1 dose, Starting on 01/01/20 at 1631, Until 01/02/20 at 1326, Coanalgesic, Do not give if [...] opioid, PACU iopamidoL (ISOVUE-300) 61 % injection ONCE PRN, 1 dose, Starting on Thu01/02/20 at 1506, Until Thu01/02/20 at 1506, Intra-op Given 01/02/2020 3:06 PM EDT 5 mL lactated ringers infusion Intravenous, at 100 mL/hr, PREPROCEDURE CONTINUOUS, Starting on Thu01/01/20 at 1631, Until Thu01/02/20 at 2115, To be given in SDS/Pre-op Holding Area, Pre-op (Holding/SDS Meds) New Bag 01/02/2020 1:26 PM EDT 100 mL/hr ondansetron (ZOFRAN) injection 4 mg 4 mg, Intravenous, PRN, 1 dose, Starting on Thu01/02/20 at 1530, Until Thu01/02/20 at 2115, Nausea, Do not give if patient received [...] On 01/01/20 at 1645, Pre-op (Holding/SDS Meds) 1326 (Given [...] on Thu01/02/20 at 1530, Until Thu01/02/20 at 211, Nausea, Do not give if patient received [...] HYDROmorphone (DILAUDID) injection 0.25 mg 1 01/02/2020 ondansetron (ZOFRAN) injection 4 mg 1 01/01 [...] documented as of this encounter Care Teams P 3 Armament/Ordnance Ima Technician Relationship Specialty Start Date End Date Mann Irene MD [address] [place] [place] [address] PCP - General Internal Medicine 08/23/12 07/13/22 documented as of this encounter
--- OUTSIDE RECORDS SUMMARY | 2024-03-27 15:02 | XMS_ITS | Encounter Summary ---
Author Organization [facility] [place] [address] Care Team Providers Care Wheat Farmer Name Role Phone Mann Irene MD Primary Care Provider [phone] Encounter Details Date Type Department Care Team (Latest Contact Info) Description 12/20/2019 Travel Social History Tobacco Use Types Packs/Day [...] EST Office Visit [facility] [address] [place] [phone] Gilda Francis PA [address] [place] [address] documented as of this encounter Visit Diagnoses Not on filedocumented in this encounter Additional Health Concerns Infection Onset Date Last Indicated Resolved Time 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
--- OUTSIDE RECORDS SUMMARY | 2024-03-27 15:03 | XMS_ITS | Encounter Summary ---
Author Organization [place] [address] Care Team Providers Care Planning Intern Name Role Phone Mann Irene MD Primary Care Provider [phone] Reason for Visit * Reason Onset Date Comments Other 11/22/2019 Encounter Details Date Type Department Care Team (Late st Contact Info) Description 11/22/2019 Telephone [facility] Urology NPT[facility] [address] [place] [address] Amari Wheeler MD [address] [place] [address] Other Social History Tobacco Use Types Packs/Day Years [...] have Coronavirus / COVID-19? No / Unsure 11/22/2019 12:57 PM EDT documented as of this encounter Functional Status * Is the person deaf or does he/she have serious difficulty hearing? Answer Date of Assessment Author No 12/06/2018 7:32 AM EDT Tomi Slaughter, CLAUDIA * Is the person blind or does he/she have serious difficulty seeing even when wearing glasses? Answer Date of Assessment Author No 12/06/2018 7:32 AM Tomi Huggins, ASHLEYA * Does this person have serious difficulty walking or climbing stairs? Answer Date of Assessment Author No 12/06/2018 7:32 AM EDTomi José, ASHLEYA * Does this person have difficulty dressing or bathing? Answer Date of Assessment Author No 12/06/2018 7:32 AM EDTomi José, ASHLEYA * Because of a physical, mental or emotional condition, does this person have difficulty doing errands alone such as visiting a doctor's office or shopping? Answer Date of Assessment Author No 12/06/2018 7:32 AM Tomi Huggins, CLAUDIA documented as of this encounter Mental Status * Because of a physical, mental or emotional condition, does this person have serious difficulty concentrating, remembering or making decisions? Answer Entry Date Author No 12/06/2018 7:32 AM Tomi Huggins, CLAUDIA documented in this encounter Miscellaneous Notes * Telephone Encounter - Shaniqua Bustillo MA - 11/23/2019 9:23 AM EDT Patient informed * Telephone Encounter - Shaniqua Bustillo MA - 11/23/2019 8:53 AM EDT Medication sent, [id number] * Telephone Encounter - Amari Wheeler MD - 11/23/2019 8:04 AM EDT Ok to resend * Telephone Encounter - Shaniqua Bustillo MA - 11/22/2019 2:07 PM EDT We had sent in antibiotics for UTI for patient and they were discontinued. Can I resend this medication or will it interact with her surgery scheduled? Please advise, thank you. documented in this encounter Plan of Treatment Upcoming Encounters Date Type Department Care Team (Late st Contact Info) Description 05/16/2024 9:30 AM EST Office Visit [facility] [address] [place] [address] Gilda Francis PA [address] [place] [address] documented as of this encounter Visit Diagnoses Not on filedocumented in this encounter Additional Health Concerns Infection Onset Date Last Indicated Resolved Time ESBL organism 11/16/2019 11/16/2019 03/28/2022 1:0 5 PM EST Assessment Noted Time A fall risk assessment has been complete d for the patient 12/06/2018 7:30 AM EDT documented as of this encounter Care Teams Planning Intern Relationship Specialty Start Date End Date Mann Irene MD [address] [place] [phone] PCP - General Internal Medicine 08/23/12 07/13/22 documented as of this encounter
--- OUTSIDE RECORDS SUMMARY | 2024-03-27 15:03 | XMS_ITS | Encounter Summary ---
Author Organization [facility] [place] [address] Care Team Providers Care Bead Builder Name Role Phone Mann Irene MD Primary Care Provider [phone] Encounter Details Date Type Department Care Team (Latest Contact Info) Description 10/26/2019 Travel Social History Tobacco Use Types Packs/Day [...] have Coronavirus / COVID-19? No / Unsure 10/26/2019 9:21 AM EDT documented as of this encounter [...] 7:32 AM EDT Tomi Slaughter CCMA * Does this person have serious difficulty walking or climbing stairs? Answer Date of Assessment Author No 12/06/2018 7:32 AM EDT Tomi Slaughter CCMA * Does this person have difficulty dressing or bathing? Answer Date of Assessment Author No 12/06/2018 7:32 AM EDT Tomi Slaughter CCMA * Because of a physical, mental or emotional condition, does this person have difficulty doing errands alone such as visiting a doctor's office or shopping? Answer Date of Assessment Author No 12/06/2018 7:32 AM EDTomi José CCMA documented as of [...] EST Office Visit [facility] [address] [place] [phone] Gilda Francis PA [address] [place] [address] documented as of this encounter Visit Diagnoses Not on filedocumented in this encounter Additional Health Concerns Assessment Noted Time A fall risk assessment has been complete d for the patient 12/06/2018 7:30 AM EDT documented as of this encounter Care Teams Bead Builder Relationship Specialty Start Date End Date Mann Irene MD [place] [facility] [place] [address] PCP - General Internal Medicine 08/23/12 07/13/22 documented as of this encounter
--- OUTSIDE RECORDS SUMMARY | 2024-03-27 15:03 | XMS_ITS | Encounter Summary ---
Author Organization [facility] [place] [address] Care Team Providers Care Truck Spotter Name Role Phone Mann Irene MD Primary Care Provider [phone] Encounter Details Date Type Department Care Team (Latest Contact Info) Description 11/22/2019 Travel Social History Tobacco Use Types Packs/Day [...] 12/06/2018 7:32 AM EDT Tomi Slaughter CCMA documented as of this encounter Mental Status * Because of a physical, mental or emotional condition, does this person have serious difficulty concentrating, remembering or making decisions? 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
--- OUTSIDE RECORDS SUMMARY | 2024-03-27 15:03 | XMS_ITS | Encounter Summary ---
Author Organization [facility] [address] Care Team Providers Care Muck Miner Blasting Name Role Phone Mann Irene MD Primary Care Provider [phone] Encounter Details Date Type Department Care Team (Late st Contact Info) Description 11/23/2019 Orders Only [facility] [address] [place] [address] Amari Wheeler MD [address] [place], [place] [phone] Urinary tract infection without hematuria, site unspecified (Primary Dx) Social History Tobacco Use Types [...] Assessment Author No 12/06/2018 7:32 AM Tomi Huggins eamon CLAUDIA * Is the person blind or does he/she have serious difficulty seeing even when wearing glasses? Answer Date of Assessment Author No 12/06/2018 7:32 AM Tomi Huggins eamon CLAUDIA * Does this person have serious difficulty walking or climbing stairs? Answer Date of Assessment Author No 12/06/2018 7:32 AM Tomi Huggins eamon CLAUDIA * Does this person have difficulty dressing or bathing? Answer Date of Assessment Author No 12/06/2018 7:32 AM Tomi Huggins deysiroxanne CLAUDIA * Because of a physical, mental or emotional condition, does this person have difficulty doing errands alone such as visiting a doctor's office or shopping? Answer Date of Assessment Author No 12/06/2018 7:32 AM Tomi Huggins eamon CLAUDIA documented as of this encounter Mental Status * Because of a physical, mental or emotional condition, does this person have serious difficulty concentrating, remembering or making decisions? Answer Entry Date Author No 12/06/2018 7:32 AM Tomi Huggins eamon CLAUDIA documented in this encounter Ordered Prescriptions Prescription Sig Dispense Quantity Refills Last Filled Start Date End Date sulfamethoxazole-tr imethoprim (BACTRIM;SEPTRA) 400-80 mg Oral Tablet Take 1 Tab by mouth 2 times daily for 7 days. 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
--- OUTSIDE RECORDS SUMMARY | 2024-03-27 15:03 | XMS_ITS | Encounter Summary ---
Author Organization [facility] [place] [address] Care Team Providers Care It Consulting Manager Name Role Phone Mann Irene MD Primary Care Provider [phone] Encounter Details Date Type Department Care Team (Latest Contact Info) Description 10/30/2019 Travel Social History Tobacco Use Types Packs/Day [...] have Coronavirus / COVID-19? No / Unsure 10/30/2019 11:37 PM EDT documented as of this encounter [...] EST Office Visit [facility] [address] [place] [phone] Gilda Francis PA [address] [place] [address] documented as of this encounter Visit Diagnoses Not on filedocumented in this encounter Additional Health Concerns Assessment Noted Time A fall risk assessment has been complete d for the patient 12/06/2018 7:30 AM EDT documented as of this encounter Care Teams It Consulting Manager Relationship Specialty Start Date End Date Mann Irene MD [place] [facility] [place] [address] PCP - General Internal Medicine 08/23/12 07/13/22 documented as of this encounter
--- OUTSIDE RECORDS SUMMARY | 2024-03-27 15:03 | XMS_ITS | Encounter Summary ---
Author Organization 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
--- OUTSIDE RECORDS SUMMARY | 2024-03-27 15:03 | XMS_ITS | Encounter Summary ---
Author Organization [facility] [place] [address] Care Team Providers Care Auto Overhauler Name Role Phone Mann Irene MD Primary Care Provider [phone] Encounter Details Date Type Department Care Team (Latest Contact Info) Description 11/18/2019 Travel Social History Tobacco Use Types Packs/Day [...] have Coronavirus / COVID-19? No / Unsure 11/18/2019 8:57 AM EDT documented as of this encounter Functional Status * Is the person deaf or does he/she have serious difficulty hearing? Answer Date of Assessment Author No 12/06/2018 7:32 AM EDT Tomi Slaughter CCMA * Is the person blind or does he/she have serious difficulty seeing even when wearing glasses? 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
--- OUTSIDE RECORDS SUMMARY | 2024-03-27 15:03 | XMS_ITS | Encounter Summary ---
Author Organization [place] [address] Care Team Providers Care Children'S Program Coordinator Name Role Phone Mann Irene MD Primary Care Provider [phone] Encounter Details Date Type Department Care Team (Late st Contact Info) Description 10/21/2019 9:51 AM EDT - 10/21/2019 11:59 PM EDT Hospital Encounter [facility] [address] [place] [address] Covid19, [facility] Pre-op testing; Encounter [...] have Coronavirus / COVID-19? No / Unsure 10/20/2019 1:25 PM EDT documented as of this encounter Functional Status * Is the person deaf or does he/she have serious difficulty hearing? Answer Date of Assessment Author No 12/06/2018 7:32 AM Tomi Huggins CLAUDIA * Is the person blind or does he/she have serious difficulty seeing even when wearing glasses? Answer Date of Assessment Author No 12/06/2018 7:32 AM Tomi Huggins CLAUDIA * Does this person have serious difficulty walking or climbing stairs? Answer Date of Assessment Author No 12/06/2018 7:32 AM Tomi Huggins CLAUDIA * Does this person have difficulty dressing or bathing? Answer Date of Assessment Author No 12/06/2018 7:32 AM Tomi Huggins CCMA * Because of a physical, mental or emotional condition, does this person have difficulty doing errands alone such as visiting a doctor's office or shopping? Answer Date of Assessment Author No 12/06/2018 7:32 AM Tomi Huggins CLAUDIA documented as of this encounter Mental Status * Because of a physical, mental or emotional condition, does this person have serious difficulty concentrating, remembering or making decisions? Answer Entry Date Author No 12/06/2018 7:32 AM Tomi Huggins CLAUDIA documented in this encounter Medications at Time of Discharge atorvastatin (LIPITOR) 10 mg Oral TabletIndications:Pure hypercholesterolemia TAKE 1 TABLET EVERY DAY 90 Tab 9 12/09/19 20 ergocalciferol (VITAMIN D) 50,000 unit Oral Capsule Take 1 Cap by mouth once a week. 12 Cap 3 9 02/06/20 20 documented as of this encounter Discharge Disposition Disposition Code Departure Means Destination Home or Self Care documented in this encounter Plan of Treatment Upcoming Encounters Date Type Department Care Team (Late st Contact Info) Description 05/16/2024 9:30 AM EST Office Visit [facility] [address] [place] [address] Gilda Francis PA [address] [place] [address] documented as of this encounter Procedures Procedure Name Priority Date/Time Associated Diagnosis Comments CORONAVIRUS 2019 (COVID-19) - REF LAB Routine 10/21/2019 9:52 AM EDT Encounter for laboratory testing for COVID-19 virus Pre-op testing documented in this encounter Results * CORONAVIRUS 2019 (COVID-19) - REF LAB (10/21/2019 9:52 AM EDT) CORONAVIRUS [id number] NON-DETEC ARNOLD NON-DETEC ARNOLD 10/22/2019 11:54 PM EDT [facility] Comment: A Non-Detected result does not [...] developed and performance characteristics are determined by [facility] [employer]. It has not been cleared nor approved by the FDA. The laboratory is accredited through CLIA and deemed qualified to perform high-complexity testing. Such testing is used for clinical purposes and should not be regarded as investigational or for research. [place] Pat ID: [id number]; [place] Req Num: [id number]; [place] Spec ID: [id number] us Amari Wheeler MD LAB SEND OUT ORDERABLES Final Re sult [facility] [address] [place] [address] documented in this encounter Visit Diagnoses Diagnosis Pre-op testing Preoperative examination, unspecified Encounter for laboratory testing for COVID-19 virus documented in this encounter Additional Health Concerns Assessment Noted Time A fall risk assessment has been complete d for the patient 12/06/2018 7:30 AM EDT documented as of this encounter Care Teams Children'S Program Coordinator Relationship Specialty Start Date End Date Mann Irene MD [address] [place] [address] PCP - General Internal Medicine 08/23/12 07/13/22 documented as of this encounter
--- OUTSIDE RECORDS SUMMARY | 2024-03-27 15:03 | XMS_ITS | Encounter Summary ---
Author Organization [place] [address] Care Team Providers Care Payroll Accounting Clerk Name Role Phone Mann Irene MD Primary Care Provider [phone] Encounter Details Date Type Department Care Team (Late st Contact Info) Description 11/24/2019 10:20 AM EDT - 11/24/2019 11:59 PM EDT Hospital Encounter [facility] [address] [place] [address] Covid19, [facility] Pre-op testing; Encounter [...] Author No 12/06/2018 7:32 AM Tomi Huggins ASHLEY knutsonElver * Is the person blind or does he/she have serious difficulty seeing even when wearing glasses? Answer Date of Assessment Author No 12/06/2018 7:32 AM Tomi Huggins ASHLEY knutsonElver * Does this person have serious difficulty walking or climbing stairs? Answer Date of Assessment Author No 12/06/2018 7:32 AM Tomi Huggins ASHLEY knutsonElver * Does this person have difficulty dressing or bathing? Answer Date of Assessment Author No 12/06/2018 7:32 AM Tomi Huggins eamon CLAUDIA * Because of a physical, mental or emotional condition, does this person have difficulty doing errands alone such as visiting a doctor's office or shopping? Answer Date of Assessment Author No 12/06/2018 7:32 AM Tomi Huggins ASHLEY knutsonElver documented as of this encounter Mental Status * Because of a physical, mental or emotional condition, does this person have serious difficulty concentrating, remembering or making decisions? Answer Entry Date Author No 12/06/2018 7:32 AM Tomi Huggins ASHLEY knutsonElver documented in this encounter Medications at Time [...] 10 days. 30 Tab 0 12/08/19 20 sulfamethoxazole-trimetho prim (BACTRIM;SEPTRA) 400-80 mg Oral Tablet Take 1 Tab by mouth 2 times daily for 7 days. 14 Tab 0 11/30/19 20 tamsulosin (FLOMAX) 0.4 mg Oral Capsule Take 1 Cap by mouth nightly. 30 Cap 0 12/21/19 20 documented as of this encounter Discharge Disposition Disposition Code Departure Means Destination Home or Self Care documented in this encounter Progress Notes * Mann Irene MD - 11/24/2019 10:20 AM EDT Negative for COVID documented in this encounter Plan of Treatment Upcoming Encounters Date Type Department Care Team (Late st Contact Info) Description 05/16/2024 9:30 AM EST Office Visit [facility] [address] [place] [address] Gilda Francis PA [address] [place] [address] documented as of this encounter Procedures Procedure Name Priority Date/Time Associated Diagnosis Comments CORONAVIRUS 2019 Routine 11/24/2019 10:2 0 AM EDT Pre-op testing Encounter for laboratory testing for COVID-19 virus documented in this encounter Results * CORONAVIRUS 2019 (11/24/2019 10:20 AM EDT) Pathologist [facility] CORONAVIRUS [id number] Not Detected Not Detected 11/24/2019 8:21 PM EDT [facility] Comment:Caution should be ex ercised when interpreting a result of 'Not Detected'. A result of 'Not Detected' does not rule out COVID-19 and cannot be used as sole basis for treatment or patient management decisions. If COVID-19 is still suspected following a 'Not Detected' result, re-testing should be considered. Swab BOTH ANTERIOR NARES / Unknown 11/24/2019 10:20 AM EDT 11/24/2019 10:20 AM EDT Narrative [facility] - 11/24/2019 8:21 PM EDT This test is a nucleic acid amplification test intended for the qualitative detection of nucleic acid from the SARS-CoV-2 in upper respiratory samples collected from individuals suspected of COVID-19. Test is performed on the [employer] platform under the FDA's Emergency Use Authorization (EUA). Hologic Provider Fact Sheet: https://www.fda.gov/media/991140/download Hologic Patient Fact Sheet: ??https://www.fda.gov/media/618680/download Amari Wheeler MD MICROBIOLOGY - GENERAL ORDERABLE S Final Result [facility] [address] [place] [address] , [place] [address] documented in this encounter Visit Diagnoses Diagnosis [...] documented as of this encounter Care Teams Payroll Accounting Clerk Relationship Specialty Start Date End Date Mann Irene MD [address] [facility] [place] [phone] PCP - General Internal Medicine 08/23/12 07/13/22 documented as of this encounter
--- OUTSIDE RECORDS SUMMARY | 2024-03-27 15:03 | XMS_ITS | Encounter Summary ---
Author Organization [facility] [place] [place] [address] Care Team Providers Care Hyperbaric Technologist Name Role Phone Mann Irene MD Primary Care Provider [phone] Encounter Details Date Type Department Care Team (Latest Contact Info) Description 11/28/2019 Travel Social History Tobacco Use Types Packs/Day [...] have Coronavirus / COVID-19? 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
--- OUTSIDE RECORDS SUMMARY | 2024-03-27 15:03 | XMS_ITS | Encounter Summary ---
Author Organization [facility] [place] [place] [address] Care Team Providers Care Footwear Sales Representative Name Role Phone Mann Irene MD Primary Care Provider [phone] Encounter Details Date Type Department Care Team (Latest Contact Info) Description 11/25/2019 Travel Social History Tobacco Use Types Packs/Day [...] have Coronavirus / COVID-19? 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
--- OUTSIDE RECORDS SUMMARY | 2024-03-27 15:03 | XMS_ITS | Encounter Summary ---
Author Organization [place] [address] Care Team Providers Care Certified Dental Assistant Name Role Phone Mann Irene MD Primary Care Provider [phone] Encounter Details Date Type Department Care Team (Late st Contact Info) Description 10/31/2019 - 10/31/2019 11:32 PM EDT Emergency [facility] [address] [place], [place] [id number] Discharge Disposition: ED Dismiss - Never Arrived Social History Tobacco Use Types Packs/Day Years [...] No 12/06/2018 7:32 AM EDTomi José CCMA * Does this person have serious difficulty walking or climbing stairs? Answer Date of Assessment Author No 12/06/2018 7:32 AM EDTomi José CCMA * Does this person have difficulty dressing or bathing? Answer Date of Assessment Author No 12/06/2018 7:32 AM EDTomi José CCMA * Because of [...] EVERY DAY 90 Tab 9 12/09/19 20 cephALEXin (KEFLEX) 500 mg Oral Capsule Take 1 Cap by mouth 4 times daily for 7 days. 28 Cap 0 11/07/19 20 ergocalciferol (VITAMIN D) 50,000 unit Oral Capsule Take 1 Cap by mouth once a week. 12 Cap 3 9 02/06/20 20 documented as of this encounter Discharge Disposition Disposition Code Departure Means Destination ED Dismiss - Never Arrived U nknown documented in this encounter Plan of Treatment Upcoming Encounters Date Type Department Care Team (Late st Contact Info) Description 05/16/2024 9:30 AM EST Office Visit [facility] [address] [place] [address] Gilda Francis PA [address] [place], [place] [id number] documented as of this encounter Visit Diagnoses Not on filedocumented in this encounter Additional Health Concerns Assessment Noted Time A fall risk assessment has been complete d for the patient 08/06/2023 8:22 AM EDT documented as of this encounter Care Teams Certified Dental Assistant Relationship Specialty Start Date End Date Mann Irene MD [address] [place] [phone] PCP - General Internal Medicine 08/23/12 07/13/22 documented as of this encounter
--- OUTSIDE RECORDS SUMMARY | 2024-03-27 15:03 | XMS_ITS | Encounter Summary ---
Author [place] [address] Care Team Providers Care Bed And Breakfast Cook Name Role Phone Mann Irene MD Primary Care Provider [phone] Reason for Visit * Auth/Cert/Inpt Specialty Diagnoses / Procedures Referred By Ramona mcdaniel Referred To Contact Diagnoses Hematuria, unspecified type Hematuria, unspecified type [R31.9] Procedures [facility] CYSTOURETHROSCOPY,BIOPSIES cystoscopy bladder biopsy Referral ID Status Reason Start Date Expiration Date Visits Re quested Visits Authorized [id number] 1 1 Encounter Details Date Type Department Care Team (Latest Contact Info) Description 10/26/2019 8:44 AM EDT - 10/26/2019 11:56 AM EDT Hospital [facility] [place] [id number] Amari Wheeler MD [address] [place] [address] Hematuria; Hematuria, unspecified type Discharge Disposition: Home [...] Sign Reading Time Taken Comments Blood Pressure 132/62 10/26/2019 11:41 AM EDT Pulse 59 10/26/2019 11:41 AM EDT Temperature 36.1 ??C (97 ??F) 10/26/2019 11:06 AM EDT Respiratory Rate 20 10/26/2019 11:41 AM EDT Oxygen Saturation 100% 10/26/2019 11:41 AM EDT Inhaled Oxygen Concentration - - Weight 83.9 kg (185 lb) 10/26/2019 9:26 AM EDT Height 154.9 cm (5' 1 ) 10/26/2019 9:26 AM EDT Body Mass Index 34.96 10/26/2019 9:26 AM EDT documented in this encounter Functional Status * Is the person deaf or does he/she have serious difficulty hearing? Answer Date of Assessment Author No 12/06/2018 7:32 AM CAITT Tomi Slaughter CCMA * Is the person blind or does he/she have serious difficulty seeing even when wearing glasses? Answer Date of Assessment Author No 12/06/2018 7:32 AM Tomi Huggins CCMA * Does this person have serious difficulty walking or climbing stairs? Answer Date of Assessment Author No 12/06/2018 7:32 AM Tomi Huggins CCMA * Does this person have difficulty dressing or bathing? Answer Date of Assessment Author No 12/06/2018 7:32 AM Tomi Huggins CCMA * Because of a physical, mental or emotional condition, does this person have difficulty doing errands alone such as visiting a doctor's office or shopping? Answer Date of Assessment Author No 12/06/2018 7:32 AM Tomi Huggins CCMA documented as of this encounter Mental Status * Because of a physical, mental or emotional condition, does this person have serious difficulty concentrating, remembering or making decisions? Answer Entry Date Author No 12/06/2018 7:32 AM Tomi Huggins CCMA documented in this encounter Discharge Instructions * Discharge Instructions* Amari Wheeler MD - 10/26/2019 10:54 AM EDT Call for inability to urinate, fevers > [...] been given a prescription by your doctor. +++++++++++++++++++++++++++++++++++++++++++++++++++++++++++++++++++ [facility] Discharge Instructions - Following Anesthesia We [...] our office at . [facility] +++++++++++++++++++++++++++++++++++++++++++++++++++++++++++++++++++ documented in this encounter Medications at Time of Discharge atorvastatin (LIPITOR) 10 mg Oral TabletIndications:Pure hypercholesterolemia TAKE 1 TABLET EVERY DAY 90 Tab 9 12/09/19 20 ergocalciferol (VITAMIN D) 50,000 unit Oral Capsule Take 1 Cap by mouth once a week. 12 Cap 3 9 02/06/20 20 documented as of this encounter Discharge Disposition Disposition Code Departure Means Destination Home or Self Nursing Home documented in this encounter H&P Notes * Bruce Mcdaniel, NITRATOR OPERATOR - 10/26/2019 9:13 AM EDT [facility] History and Physical Name: Stella Hylton ADDRESS: [address] [place] [address] : 1945 AGE: 74 y.o. Assessment: Hematuria, unspecified type [R31.9] Plan: Procedure(s): cystoscopy bladder biopsy per Amari Wheeler MD Admitting Physician: Amari Wheeler MD Date of Admit: 10/26/2019 Subjective SUBJECTIVE Chief Complaint: Hematuria, unspecified type [R31.9] History of Present Illness: Patient is a 74 y.o. female with Hematuria, unspecified type [R31.9] who presents for surgical intervention. Denies active chest pain, shortness of breath, recent illnesses, or any new acute changes to her health conditions since being evaluated by her attending surgeon. Recent illnesses: none. ?? Prior surgeries requiring anesthesia? yes Prior complications from surgery or significant reactions anesthesia? no Family history of issues with anesthesia? no Uncontrolled blood pressure? no ?? Recent chest pain or shortness of breath with exertion? no Are you able to complete moderately vigorous activities such as climbing steps or mowing the lawn without chest pain or shortness of breath? yes Have you had recent cardiac procedures such as stent placement or bypass surgery? no Any history of blood clots? no Are you on an aspirin, anti-inflammatory, or blood thinner on a daily or regular basis? Yes, ASA and Diclofenac, stopped taking 7 days ago. ?? Past Medical History: Diagnosis Date ??? Arthritis generalized ??? Does use hearing aid bilateral ??? Hyperlipidemia ??? Kidney stone hx of ??? Motion sickness seasick ??? Osteopenia ??? Urinary tract infection frequent UTI's Past Surgical History: Procedure Laterality Date ??? CATARACT REMOVAL Right 02/28/2019 RIGHT EYE CATARACT EXTRACTION WITH PHACOEMULSIFICATION AND INTRAOCULAR LENS; Surgeon: Conor Ramirez MD; Location: [facility]; Service: Ophthalmology ??? CATARACT REMOVAL Left 03/14/2019 LEFT EYE CATARACT EXTRACTION WITH PHACOEMULSIFICATION AND INTRAOCULAR LENS; Surgeon: Conor Ramirez MD; Location: [facility]; Service: Ophthalmology ??? COLONOSCOPY ??? HEMORRHOID SURGERY ??? HIP ARTHROPLASTY Right 02/16/2014 RIGHT TOTAL HIP REPLACEMENT; Surgeon: Bruce Oh MD; Location: [facility]; Service: Orthopedics ??? HYSTERECTOMY complete ??? LUMBAR DISC SURGERY 11/03/2012 Surgeon: Elza Bautista MD; Location: [facility]; Service: ??? TOTAL KNEE ARTHROPLASTY Left 12/28/2018 left knee total replacement; Surgeon: Bruce Oh MD; Location: [facility]; Service: Orthopedics Prior to Admission medications Medication Sig Start Date End Date Taking? Authorizing Provider aspirin 81 mg Oral Tablet, Delayed Release (E.C.) Take 1 Tab by mouth every morning. Yes Provider, Historical atorvastatin (LIPITOR) 10 mg Oral Tablet TAKE 1 TABLET EVERY DAY 04/05/19 Yes Mann Irene MD diclofenac (VOLTAREN) 75 mg Oral Tablet, Delayed Release (E.C.) TAKE 1 TAB BY MOUTH 2 TIMES DAILY (WITH MEALS) 08/16/19 Yes Mann Irene MD ergocalciferol (VITAMIN D) 50,000 unit Oral Capsule Take 1 Cap by mouth once a week. 02/11/19 Yes Mann Irene MD loratadine-pseudoephedrine (LORATADINE-PSEUDOEPHEDRINE) 10-240 mg Oral Tablet Sustained Release 24 hr Take 1 Tab by mouth daily. 08/09/19 Yes Mann Irene MD difluprednate (DUREZOL) 0.05 % Opht Drops Place 1 Drop into the right eye 2 times daily. Can substitute Inveltys or Prednisolone Patient not taking: Reported on 10/20/2019 02/28/19 Conor Ramirez MD moxifloxacin (VIGAMOX) 0.5 % Opht Drops Place 1 Drop into the right eye 2 times daily. Patient not taking: Reported on 10/20/2019 02/28/19 Conor Ramirez MD oxyCODONE (ROXICODONE) 5 mg Oral Tablet Take 1-2 Tabs by mouth every 8 hours as needed for Major Surgery/Trauma (G89.18) (moderate/severe 6-10 pain). Patient not taking: Reported on 03/14/2019 12/30/18 Blaire Potter PA-C tiZANidine (ZANAFLEX) 2 mg Oral Tablet Take 2 Tabs by mouth every 8 hours as needed for Other (muscle relaxant). Patient not taking: Reported on 10/20/2019 12/30/18 Blaire Potter PA-C vit C/E/Zn/coppr/lutein/zeaxan (PRESERVISION AREDS-2 ORAL) Take by mouth 2 times daily. Provider, Historical Allergies Allergen Reactions ??? Celecoxib Rash Social History Socioeconomic History ??? Marital status: [...] Mother accident ??? Anesth Problems Neg Hx Active Hospital Problems Diagnosis ??? *Hematuria Height 5' 1 (1.549 m), weight 178 lb (80.7 kg), not currently . Review of Systems: The listed systems were reviewed and reveal the following in addition to any already discussed in the HPI: Review of Systems Constitutional: Negative for chills, diaphoresis, fever, malaise/fatigue and weight loss. HENT: Negative for congestion, ear discharge, ear pain, sinus pain and sore throat. Eyes: Negative for blurred vision, double vision and photophobia. Respiratory: Negative for cough, hemoptysis, sputum production, shortness of breath, wheezing and stridor. Cardiovascular: Negative for chest pain, palpitations, orthopnea, claudication, leg swelling and PND. Gastrointestinal: Negative for abdominal pain, blood in stool, diarrhea, heartburn, melena, nausea and vomiting. Genitourinary: Negative for dysuria, flank pain, frequency, hematuria and urgency. Musculoskeletal: Negative for back pain, falls, myalgias and neck pain. Skin: Negative for itching and rash. Neurological: Negative for dizziness, sensory change, speech change, focal weakness, seizures, weakness and headaches. Endo/Heme/Allergies: Does not bruise/bleed easily. Psychiatric/Behavioral: Negative for depression. The patient does not have insomnia. Objective OBJECTIVE Physical Exam: Body mass index is 33.63 kg/m??. Body surface area is 1.8 meters squared. Physical Exam Vitals signs and nursing note reviewed. Constitutional: General: She is not in acute distress. Appearance: She is well-developed. She is not diaphoretic. HENT: Head: Normocephalic and atraumatic. Right Ear: External ear normal. Left Ear: External ear normal. Nose: Nose normal. Mouth/Throat: Pharynx: No oropharyngeal exudate. Eyes: General: No scleral icterus. Right eye: No discharge. Left eye: No discharge. Conjunctiva/sclera: Conjunctivae normal. Pupils: Pupils are equal, round, and reactive to light. Neck: Musculoskeletal: Normal range of motion. Vascular: No JVD. Trachea: No tracheal deviation. Cardiovascular: Rate and Rhythm: Normal rate and regular rhythm. Heart sounds: Normal heart sounds. No murmur. No friction rub. No gallop. Pulmonary: Effort: Pulmonary effort is normal. No respiratory distress. Breath sounds: Normal breath sounds. No stridor. No wheezing or rales. Chest: Chest wall: No tenderness. Abdominal: General: Bowel sounds are normal. There is no distension. Palpations: Abdomen is soft. Tenderness: There is no abdominal tenderness. There is no guarding or rebound. Musculoskeletal: Normal range of motion. Lymphadenopathy: Cervical: No cervical adenopathy. Skin: General: Skin is warm and dry. Coloration: Skin is not pale. Findings: No erythema or rash. Neurological: Mental Status: She is alert and oriented to person, place, and time. Cranial Nerves: No cranial nerve deficit. Coordination: Coordination normal. Psychiatric: Behavior: Behavior normal. Thought Content: Thought content normal. Judgment: Judgment normal. Revised Faustin Cardiac Risk Index 1. High risk surgical procedures (intraperitoneal, intrathoracic, suprainguinal vascular) No ?? 2. History of ischemic heart disease (history of myocardial infarction, history of positive exercise test, current complaint of chest pain considered to be due to ischemia, use of nitrate therapy, EKG with pathological Q waves) No ?? 3. History of congestive heart failure (history of congestive heart failure, pulmonary edema, paroxysmal nocturnal dyspnea, bilateral rales or S3 gallop) No ?? 4: History of cerebrovascular disease (history of transient ischemic attack or stroke) No ?? 5. Preoperative treatment with insulin No ?? 6. Preoperative serum creatinine >2.0 mg/dl No I-stat creatine 0.6 07/22/2019 ?? Each risk Factor is assigned one point. Total Points 0 ?? Points Class Risk of Major cardiac event 0 I 0.4% 1 II 0.9% 2 III 6.6% 3 or more IV 11% ? Major cardiac event includes myocardial infarction, pulmonary edema, ventricular fibrillation, primary cardiac arrest and complete heart block. ? Bruce Mcdaniel APRN 10/26/2019 documented in this encounter Procedure Notes * Amari Wheeler MD - 10/26/2019 10:53 AM EDT Images from the original note were not included. 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 Treatment options have been discussed and the patient has elected to proceed with bladder biopsy and laser fulguration of lesions of bladder Pre-operative Diagnosis: possible CIS Post-operative Diagnosis: same Surgeon: Amari Wheeler MD Procedure: cystoscopy, bladder biopsy and laser fulguration of lesions of bladder Assistants: none Anesthesia: General LMA anesthesia Procedure Details The risks, benefits, complications, treatment options, and [...] in the usual sterile fashion. The 21 Haitian cystoscope was inserted. Under direct vision, the urethra appears normal. The bladder neck is unremarkable. Both ureteral orifices were identified with clear efflux from each. Each lay in a normal position on the trigone. No foreign objects were identified. Initial examination of the bladder mucosa shows possible CIS. Bladder lesions were biopsied and then fulgurated with electrocautery. The aggregate size of all lesions was 2 cm. The scope was removed. Instrument, sponge, and needle counts were correct. Findings: as above Estimate Blood Loss: 5 ml Drains: none Specimens: bladder biopsies Complications: None; patient tolerated the procedure well. Disposition: PACU - hemodynamically stable Attending Attestation: I performed the procedure Amari Wheeler MD [facility] U[facility] [address] [place] [address] 10/26/2019 10:53 AM documented in this encounter Nursing Notes * Lily Mehta RN - 10/26/2019 11:27 AM EDT Called dc and follow up care instructions with patients son Marek. He verbalized understanding. No prescriptions written. * Lily Mehta RN - 10/26/2019 11:16 AM EDT Pt sipping on apple juice. * Lily Mehta RN - 10/26/2019 11:12 AM EDT Pt came from surgery with BP a little low, pt asymptomatic. Pt still waking up. Pt says her BP runslow. * Rosa Viramontes RN - 10/26/2019 6:27 AM EDT Called patient to come in early, no answer, left message. [facility] OR charge nurse informed. * Juliette Hernandes RN - 10/20/2019 12:00 PM EDT Images from the original note were not included. PREPARING FOR YOUR SURGERY Date of Surgery 10/26/2019 Medications ??? Take the following pills with a small sip of water on the morning of surgery: none ??? Aspirin, coumadin, blood thinners, ibuprofen, Plavix, [...] ??? Review instructions provided by your surgeon. Hygiene ??? You may brush your teeth and gargle the morning of surgery. Do not swallow water. ??? Please shower the morning of surgery or the night before. Do not wear makeup (including eye makeup) lotion, powder or deodorant. Please do not shave the operative extremity or near the operative extremity. ??? Nail dutch must be removed from operative extremity. Personal [...] a Living Will and Durable Power of Hearing Therapy Director for Healthcare, please bring a copy. ??? [...] are here. Same [facility] - [place] at [phone]; [place] SDS: Patient Entrance 3A, take North elevator to 2nd floor - [address] [place] [phone] documented in this encounter Miscellaneous Notes * Plan of Care - Lily Mehta RN - 10/26/2019 11:02 AM EDT Pt to be dc'd from post op documented in this encounter Plan of Treatment Upcoming Encounters Date Type Department Care Team (Late st Contact Info) Description 05/16/2024 9:30 AM EST Office Visit [facility] [address] [place] [address] Gilda Francis PA [address] [place] [address] documented as of this encounter Procedures Procedure Name Priority Date/Time Associated Diagnosis Comments PATHOLOGY TISSUE REQUEST Routine 10/26/2019 10:49 AM EDT Hematuria, unspecified type CYSTOSCOPY TRANSURETHRAL RESECTION BLADDER TUMOR - FULGURATION/EVACUATION OF CLOT 10/26/2019 10:31 AM EDT Hematuria, unspecified type documented in this encounter Results * PATHOLOGY TISSUE REQUEST (10/26/2019 10:49 AM EDT) CASE REPORT Surgical Pathology ?Case: [id number] ? Authorizing Provider: ??Amari Wheeler MD ?Collected: ? 10/26/2019 1049 ? Ordering Location: ? [facility] ?Received: ?10/26/2019 1235 ? Pathologist: ? Albina Reilly MD ? Specimen: ?Bladder, Urinary, bladder biopsy ? 10/28/2019 3:18 PM [facility] FINAL DIAGNOSIS Urinary bladder, biopsy: - Urothelial mucosa with acute and chronic inflammation, and reactive atypia. - Negative for malignancy. 10/28/2019 3:18 PM [facility] ENT 10/28/2019 3:18 PM [facility] GROSS DESCRIPTION Received in formalin, labeled with the patient's name and bladder biopsy is a 0.3 cm in greatest dimension brown-white tissue fragment which is submitted in toto in one cassette. /TE 10/28/2019 3:18 PM EDT [facility] MICROSCOPIC DESCRIPTION Microscopic examination is performed and the findings corroborate the diagnosis. CK 20 immunostain is negative. P53 immunostain shows patchy positivity of basal cells. The immunostains profile supports the diagnosis. 10/28/2019 3:18 PM [facility] SPECIAL STAINS All controls show appropriate reactivity. ASR: Some of the immunohistochemical stains were developed and their performance characteristics determined by [facility]. They have not been cleared or approved [...] clinical laboratory testing. 10/28/2019 3:18 PM EDT [facility] EMBEDDED IMAGES 10/28/2019 3:18 PM EDT [facility] Tissue URINARY BLADDER STRUCTURE / Unknown 10/26/2019 10:49 AM EDT 10/26/2019 12:35 PM EDT us Amari Wheeler MD PATHOLOGY ORDERABLES Final Resul t [facility] [address] [place] [address] [address] documented in this encounter Visit Diagnoses Diagnosis Hematuria, unspecified type documented in this encounter Admitting Diagnoses Diagnosis Hematuria Hematuria, unspecified documented in this encounter Administered Medications Inactive Administered Medications - up to 1 most recent administrations Medication Order MAR Action Action Date Dose Rate Site acetaminophen (TYLENOL) tablet 1,000 mg 1,000 mg, Oral, PREPROCEDURE, 1 dose, Starting on Thu10/25/19 at 0927, Until Thu10/26/19 at 0936, Coanalgesic, Do not give if patient received acetaminophen within the last 6 hours Maximum adult dose of acetaminophen is 4000 mg from all sources in 24 hours. , Pre-op (Holding/SDS Meds) Given 10/26/2019 9:36 AM EDT 1,000 mg aprepitant (EMEND) capsule 40 mg 40 mg, Oral, ONCE PREPROCEDURE, 1 dose, On Thu10/25/19 at 0930, Pre-op (Holding/SDS Meds) Given 10/26/2019 9:36 AM EDT 40 mg diphenhydrAMINE (BENADRYL) injection 25 mg 25 mg, Intravenous, PRN, 2 doses, Starting on Thu10/26/19 at 1102, Until Thu10/26/19 at 1606, Itching, Allergies, Nausea, For persistent nausea unrelieved by other antiemetics. Give second dose if nausea unrelieved in 20 minutes., PACU fentaNYL (SUBLIMAZE) injection 25 mcg 25 mcg, Intravenous, EVERY 5 MIN PRN, 4 doses, Starting on Thu10/26/19 at 1102, Until Thu10/26/19 at 1606, Pain, For initial pain. Maximum dose not to exceed 100 mcg., PACU HYDROmorphone (DILAUDID) injection 0.25 mg 0.25 mg, Intravenous, EVERY 10 MIN PRN, Starting on Thu10/26/19 at 1102, Until Thu10/26/19 at 1606, Pain, Do not exceed 2 mg in one hour unless otherwise ordered by the Anesthesia Coordinator For pain unrelieved by fentanyl, PACU lactated ringers infusion Intravenous, at 100 mL/hr, PREPROCEDURE CONTINUOUS, Starting on Thu10/25/19 at 0927, Until Thu10/26/19 at 1606, To be given in SDS/Pre-op Holding Area, Pre-op (Holding/SDS Meds) New Bag 10/26/2019 9:33 AM EDT 100 mL/hr meperidine (DEMEROL) injection (PF) 12.5 mg 12.5 mg, Intravenous, ONCE PRN, 1 dose, Starting on Thu10/26/19 at 1102, Until Thu10/26/19 at 1606, Shivering, Shivering, unless otherwise ordered by Anesthesia Coordinator, PACU ondansetron (ZOFRAN) injection 4 mg 4 mg, Intravenous, PRN, 1 dose, Starting on Thu10/26/19 at 1102, Until Thu10/26/19 at 1606, Nausea, PACU ondansetron (ZOFRAN-ODT) disintegrating tablet 8 mg 8 mg, Oral, PRN, 1 dose, Starting on Thu10/26/19 at 1102, Until Thu10/26/19 at 1606, Nausea, Dissolve in mouth, PACU documented in this encounter Active and Recently Administered Medications Times are shown in EDT. Scheduled Medication Order 10/24/2019 10/25/2019 10/26/2019 aprepitant (EMEND) capsule 40 mg (COMPLETED) 40 mg, Oral, ONCE PREPROCEDURE, 1 dose, On Thu10/25/19 at 0930, Pre-op (Holding/SDS Meds) 0936 (Given - Provid er: Tati Wheeler RN) ceFAZolin (ANCEF) IVPB 2 g (COMPLETED) 2 g, Intravenous, ONCE PREPROCEDURE, 1 dose, On Thu10/26/19 at 0645, Administer over 30 Minutes 1030 (Given - Provid er: Dwaine Dykes CRNA) PRN Medication Order 10/24/2019 10/25/2019 10/26/2019 acetaminophen (TYLENOL) tablet 1,000 mg (COMPLETED) 1,000 mg, Oral, PREPROCEDURE, 1 dose, Starting on Thu10/25/19 at 0927, Until Thu10/26/19 at 0936, Coanalgesic, Do not give if patient received acetaminophen within the last 6 hours Maximum adult dose of acetaminophen is 4000 mg from all sources in 24 hours. , Pre-op (Holding/SDS Meds) 0936 (Given - Provid er: Tati Wheeler RN) diphenhydrAMINE (BENADRYL) injection 25 mg 25 mg, Intravenous, PRN, 2 doses, Starting on Thu10/26/19 at 1102, Until Thu10/26/19 at 1606, Itching, Allergies, Nausea, For persistent nausea unrelieved by other antiemetics. Give second dose if nausea unrelieved in 20 minutes., PACU fentaNYL (SUBLIMAZE) injection 25 mcg 25 mcg, Intravenous, EVERY 5 MIN PRN, 4 doses, Starting on Thu10/26/19 at 1102, Until Thu10/26/19 at 1606, Pain, For initial pain. Maximum dose not to exceed 100 mcg., PACU HYDROmorphone (DILAUDID) injection 0.25 mg 0.25 mg, Intravenous, EVERY 10 MIN PRN, Starting on Thu10/26/19 at 1102, Until Thu10/26/19 at 1606, Pain, Do not exceed 2 mg in one hour unless otherwise ordered by the Anesthesia Coordinator For pain unrelieved by fentanyl, PACU lactated ringers infusion Intravenous, at 100 mL/hr, PREPROCEDURE CONTINUOUS, Starting on Thu10/25/19 at 0927, Until Thu10/26/19 at 1606, To be given in SDS/Pre-op Holding Area, Pre-op (Holding/SDS Meds) 0933 (New Bag - Prov ider: Tati Wheeler RN)1032 (Anesthesia Volume Adjustment - Provider: Dwaine Dykes CRNA)1055 (Stopped - Provider: Dwaine Dykes CRNA) meperidine (DEMEROL) injection (PF) 12.5 mg 12.5 mg, Intravenous, ONCE PRN, 1 dose, Starting on Thu10/26/19 at 1102, Until Thu10/26/19 at 1606, Shivering, Shivering, unless otherwise ordered by Anesthesia Coordinator, PACU ondansetron (ZOFRAN) injection 4 mg(Linked Group 1) 4 mg, Intravenous, PRN, 1 dose, Starting on Thu10/26/19 at 1102, Until Thu10/26/19 at 1606, Nausea, PACU ondansetron (ZOFRAN-ODT) disintegrating tablet 8 mg(Linked Group 1) 8 mg, Oral, PRN, 1 dose, Starting on Thu10/26/19 at 1102, Until Thu10/26/19 at 1606, Nausea, Dissolve in mouth, PACU Linked Groups Order Group 1: ondansetron (ZOFRAN) injection 4 mgJump to med 4 mg, Intravenous, PRN, 1 dose, Starting on Thu10/26/19 at 1102, Until Thu10/26/19 at 1606, Nausea, PACU Or ondansetron (ZOFRAN-ODT) disintegrating tablet 8 mgJump to med 8 mg, Oral, PRN, 1 dose, Starting on Thu10/26/19 at 1102, Until Thu10/26/19 at 1606, Nausea, Dissolve in mouth, PACU documented in this encounter Orders Medications Ordered That Parish ht Not Have Been Administered Count Last Ordered Date First Ordered Date diphenhydrAMINE (BENADRYL) injection 25 mg 1 10/26/2019 fentaNYL (SUBLIMAZE) injection 25 mcg 1 HYDROmorphone (DILAUDID) injection 0.25 mg 1 10/26/2019 meperidine (DEMEROL) injecti on (PF) 12.5 mg 1 10/26/2019 ondansetron (ZOFRAN) injection 4 mg 1 10/25 ondansetron (ZOFRAN-ODT) dis integrating tablet 8 mg 1 10/26/2019 ceFAZolin (ANCEF) IVPB 2 g 1 10/25/2019 documented in this encounter Additional Health Concerns Assessment Noted Time A fall risk assessment has been complete d for the patient 12/06/2018 7:30 AM EDT documented as of this encounter Care Teams Bed And Breakfast Cook Relationship Specialty Start Date End Date Mann Irene MD [address] [place] [id number] PCP - General Internal Medicine 08/23/12 07/13/22 documented as of this encounter
--- OUTSIDE RECORDS SUMMARY | 2024-03-27 15:03 | XMS_ITS | Encounter Summary ---
Author Organization [place] [address] Care Team Providers Care Tile Erector Name Role Phone Mann Irene MD Primary Care Provider [phone] Reason for Visit * Auth/Cert/Inpt Specialty Diagnoses / Procedures Referred By Ramona t Referred To Contact Diagnoses Urine culture positive Urine culture positive [R82.79] Procedures UT CYSTOSCOPY,INSERT URETERAL STENT UT FRAGMENT KIDNEY STONE/ ESWL cystoscopy right stent placement, right extracorporeal shock wave lithotripsy . Referral ID Status Reason Start Date Expiration Date Visits Re quested Visits Authorized [id number] 1 1 Encounter Details Date Type Department Care Team (Late st Contact Info) Description 11/28/2019 12:30 PM EDT Anesthesia Event FTT PERIOP [address] [place] [address] Raghav Nolan MD [address] [place] [address] Erma Bowens APRN [address] [place] [address] Anesthesia Record Procedure Summary Procedure Name Responsible Anesthesiologist Anesthesia Start Time Anesthesia Stop Time CYSTOSCOPY STENT INSERTION OR EXCHANGE (Right: Ureter) Raghav Nolan MD 11/28/19 1230 11/28/19 1346 Events Date Time Event Comment 11/28/2019 1215 1226 AN Equip Check 1230 An Start 1232 An Start Data 1232 Immediate Pre Anesthetic Ass es 1232 An Induction 1235 An Intubation 1235 Anesthesia Ready 1241 Time out 1241 Incision 1245 an albert now [facility] 1255 An Start Data 1259 Time out 1340 An Extubation 1343 an stop data 1346 Handoff I completed my SBAR handoff to [...] acknowledgement of understanding from the receiving PACU/ICU store team member 1346 An Stop Meds Name Total lidocaine injection 1% 50 mg propofol (DIPRIVAN) injection 150 mg rocuronium 10 mg/mL injection 10 mg succinylcholine (ANECTINE) 20 mg/mL inje ction 120 mg ephedrine injection 50 mg dexamethasone (DECADRON) injection 4 mg/ mL 4 mg ondansetron (ZOFRAN) injection 4 mg /2 m L 4 mg ciprofloxacin in 5 % dextrose (CIPRO) IV PB 400 mg 400 mg lactated ringers infusion 1,000 mL * Agents Name O2 * Blood No blood administrations on file. Lines, Drains, and Airways Type Details Placement Removal Incision/Procedural Site Flank; Lateral, Right; 11/28/19; 194811/28/19 1349 by 11/28/191948 by Discharge Provider, Automatic Peripheral IV 11/28/19; 1125; 20; Left; Wrist; d michelle RN; 1; None; 11/28/19; 1450; Catheter intact, Dressing applied, No Complications 11/28/19 1125 by Tiffanie Hartmann RN 11/28/19 1450 by Candice Paulino, RN Airway Device: ETT- Cuffed; Size: 7.5 mm; Placement Date: 11/28/19; Placement Time: 1257 (created via procedure documentation); Removal Date: 11/28/19; Removal Time: 1340 11/28/19 1257 by Rachael Milligan CRNA 11/28/19 1340 by Rachael Milligan CRNA documented in this encounter Social History [...] 12/06/2018 7:32 AM Tomi Huggins CCMA * Is the [...] documented in this encounter Procedure Notes * Rachael Milligan CRNA - 11/28/2019 12:56 PM EDTAssociated Order(s): Airway Intraop Airway Placement: Induction type: IV Mask size: Standard adult Pre-Oxygenation: Standard Technique: Video laryngoscope Laryngoscope blade: Fonseca Blade size: 3 Grade view: I Airway type: ETT- cuffed Topical Anesthetic/Lubricant: LTA 4% Lidocaine Intubation assist devices: Stylet 14fr Airway location: Oral Device size: 7.5mm Secured at: 20 cm Secured by: Tape Measured from: Lips Placement verified: Auscultation, End tidal CO2 and Symmetric chest wall motion Condition: Atraumatic and Unchanged Insertion attempts: 1 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 documented in this encounter OR Notes * Anesthesia Postprocedure Evaluation - Raghav Nolan MD - 11/28/2019 6:03 PM EDT Post-Anesthesia Evaluation Note Patient Name: Stella Hylton Patient Date: November 28, 2019 Post-Anesthesia Evaluation Patient Location: PACU Post op vitals: stable Nausea controlled: yes Level of consciousness: awake, alert and oriented Post anesthesia pain: adequate analgesia Long acting local anesthetic: n/a Airway patency: patent Respiratory status: spontaneous ventilation Cardiovascular status: stable Hydration status: euvolemic Perioperative complications: NONE Vitals: 11/28/19 1459 BP: 152/75 Pulse: 80 Resp: (!) 22 Temp: 36.2 ??C (97.2 ??F) SpO2: 98% * Anesthesia Preprocedure Evaluation - Raghav Nolan MD - 11/22/2019 1:39 PM EDT Pre-Anesthesia Evaluation Note Patient Name: Stella Hylton Sex: female Patient : 1945 Age: 74 y.o. Patient Date: November 22, 2019 Procedure(s): cystoscopy right stent placement, right extracorporeal shock wave lithotripsy Anesthesia Evaluation Previous anesthesia. 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 Last clear liquid intake: The patient has not had clear liquids within the last 2 hours. Anesthesia Plan: general Induction: intravenous Monitors: STD Emend ordered PONV Risk Score: 4. Score of 3 or more is High Risk for PONV, combination antiemetic prophylaxis isindicated. Informed consent Anesthetic plan and risks discussed with: patient. Chart Reviewed and patient examined documented in this encounter Plan of Treatment Upcoming Encounters Date Type Department Care Team (Late st Contact Info) Description 05/16/2024 9:30 AM EST Office Visit [facility] [address] [place] [id number] Gilda Francis PA [address] [place], [place] [id number] documented as of this encounter Procedures Procedure Name Priority Date/Time Associated Diagnosis Comments INTRAOP AIRWAY PLACEMENT Routine 11/28/2019 12:56 PM EDT documented in this encounter Results * INTRAOP AIRWAY PLACEMENT (11/28/2019 12:56 PM EDT) Narrative [facility] - 11/28/2019 12:56 PM EDT Rachael [...] ??Atraumatic and Unchanged ??Insertion attempts: ??1 ??Title: ??GLOBAL TECHNICAL WRITER us Raghav Nolan MD [place] [address] documented in this encounter Visit Diagnoses Not on filedocumented in this encounter Administered Medications Inactive Administered Medications - up to 1 most recent administrations Medication Order MAR Action Action Date Dose Rate Site ciprofloxacin in 5 % dextrose (CIPRO) IVPB 400 mg 400 mg, Intravenous, ONCE, 1 dose, On Thu11/28/19 at 1230, Administer over 60 Minutes, Pre-op (Holding/SDS Meds) Given 11/28/2019 12:32 PM EDT 400 mg dexamethasone (DECADRON) injection PRN (Anesthesia), Starting on Thu11/28/19 at 1337, Until Thu11/28/19 at 1346, Anesthesia Intra-op Given 11/28/2019 1:37 PM EDT 4 mg ePHEDrine injection Intravenous, PRN (Anesthesia), Starting on Thu11/28/19 at 1304, Until Thu11/28/19 at 1346, Anesthesia Intra-op Given 11/28/2019 1:21 PM EDT 10 mg lidocaine 1% 10 mg/mL (1 %) injection Intravenous, PRN (Anesthesia), Starting on Thu11/28/19 at 1232, Until Thu11/28/19 at 1346, Anesthesia Intra-op Given 11/28/2019 12:32 PM EDT 50 mg ondansetron (ZOFRAN) injection PRN (Anesthesia), Starting on Thu11/28/19 at 1337, Until Thu11/28/19 at 1346, Anesthesia Intra-op Given 11/28/2019 1:37 PM EDT 4 mg propofoL (DIPRIVAN) injection Intravenous, PRN (Anesthesia), Starting on Thu11/28/19 at 1232, Until Thu11/28/19 at 1346, Anesthesia Intra-op Given 11/28/2019 12:32 PM EDT 150 mg rocuronium injection Intravenous, PRN (Anesthesia), Starting on Thu11/28/19 at 1232, Until Thu11/28/19 at 1346, Anesthesia Intra-op Given 11/28/2019 12:32 PM EDT 10 mg succinylcholine (ANECTINE) injection Intravenous, PRN (Anesthesia), Starting on Thu11/28/19 at 1232, Until Thu11/28/19 at 1346, Anesthesia Intra-op Given 11/28/2019 12:32 PM EDT 120 mg documented in this encounter Additional Health Concerns Infection Onset Date Last Indicated Resolved Time ESBL organism 11/16/2019 11/16/2019 03/28/2022 1:0 5 PM EST Assessment Noted Time A fall risk assessment has been complete d for the patient 12/06/2018 7:30 AM EDT documented as of this encounter Care Teams Tile Erector Relationship Specialty Start Date End Date Mann Irene MD [address] [place], [place] [phone] PCP - General Internal Medicine 08/23/12 07/13/22 documented as of this encounter
--- OUTSIDE RECORDS SUMMARY | 2024-03-27 15:03 | XMS_ITS | Encounter Summary ---
Author Organization [place] [address] Care Team Providers Care Varitypist Name Role Phone Mann Irene MD Primary Care Provider [phone] Reason for Visit * Consultation (Routine) - Closed Specialty Diagnoses / Procedures Referred By Ramona mcdaniel Referred To Contact Urology Diagnoses Recurrent UTI (urinary tract infection) Mann Irene MD [facility] [place] [address] Phone: tel: fax: Amari Wheeler MD Phone: tel: fax: Referral ID Status Reason Start Date Expiration Date Visits Re quested Visits Authorized [id number] Closed 07/04/2019 07/03/2020 99 99 Encounter Details Date Type Department Care Team (Late st Contact Info) Description 10/31/2019 3:00 PM EDT Telemedicine [facility] [address] [phone] Amari Wheeler MD [address] [place] [phone] Other microscopic hematuria (Primary Dx) Social History Tobacco [...] Progress Notes * Amari Wheeler MD - 10/31/2019 3:00 PM EDT Images from the original note were not included. [facility] Urology Established Patient E&M Prior to beginning this clinical portion of this visit, the patient/family has verbally consented to the use of this telemedicine E-visit and initiated the contact. They have also consented to using My Chart as a communications platform, understanding the privacy limitations, and telehealth and HIPAA waivers as established in the CMS expansion of telehealth benefits under the 1135 waiver authority and the Coronavirus Preparedness and Response Supplemental Appro priations Act Dated July and as summarized in July 26, 2019 [facility] FAQ on the Coronavirus (COVID-19) public health emergency. Stella Hylton 1945 Allergies Allergen Reactions ??? Celecoxib Rash Chief Complaint(s): HPI: 74 y.o. female No specialty comments available. Reviewed and up to date Discuss results PVR by bladder scanner- NA No results found for this visit on 10/31/19. Past Medical History: Past Medical History: Diagnosis Date ??? Arthritis generalized ??? Does use hearing aid bilateral ??? Hyperlipidemia ??? Kidney stone hx of ??? Motion sickness seasick ??? Osteopenia ??? Urinary tract infection frequent UTI's Past Surgical History: Past Surgical History: Procedure Laterality Date ??? BLADDER TUMOR EXCISION N/A 10/26/2019 cystoscopy, bladder biopsy and fulguration of lesions of bladder; Surgeon: Amari Wheeler MD; Location: [facility] MAIN OR; Service: Urology ??? CATARACT REMOVAL Right 02/28/2019 RIGHT EYE CATARACT EXTRACTION WITH PHACOEMULSIFICATION AND INTRAOCULAR LENS; Surgeon: Conor Ramirez MD; Location: [facility]; Service: Ophthalmology ??? CATARACT REMOVAL Left 03/14/2019 LEFT EYE CATARACT EXTRACTION WITH PHACOEMULSIFICATION AND INTRAOCULAR LENS; Surgeon: Conor Ramirez MD; Location: [facility]; Service: Ophthalmology ??? COLONOSCOPY ??? HEMORRHOID SURGERY ??? HIP ARTHROPLASTY Right 02/16/2014 RIGHT TOTAL HIP REPLACEMENT; Surgeon: Bruce Oh MD; Location: [facility]; Service: Orthopedics ??? HYSTERECTOMY complete ??? LUMBAR DISC SURGERY 11/03/2012 Surgeon: Elza Bautista MD; Location: [facility] MAIN OR; Service: ??? TOTAL KNEE ARTHROPLASTY Left 12/28/2018 left knee total replacement; Surgeon: Bruce hO MD; Location: [facility] MAIN OR; Service: Orthopedics Current Outpatient Medications: Current Outpatient Medications on File Prior to Visit Medication Sig Dispense Refill ??? aspirin 81 mg Oral Tablet, Delayed Release (E.C.) Take 1 Tab by mouth every morning. ??? atorvastatin (LIPITOR) 10 mg Oral Tablet TAKE 1 TABLET EVERY DAY 90 Tab 0 ??? cephALEXin (KEFLEX) 500 mg Oral Capsule Take 1 Cap by mouth 4 times daily for 7 days. 28 Cap 0 ??? diclofenac (VOLTAREN) 75 mg Oral Tablet, Delayed Release (E.C.) TAKE 1 TAB BY MOUTH 2 TIMES DAILY (WITH MEALS) 60 Tab 0 ??? difluprednate (DUREZOL) 0.05 % Opht Drops Place 1 Drop into the right eye 2 times daily. Can substitute Inveltys or Prednisolone (Patient not taking: Reported on 10/20/2019) 1 mL 0 ??? ergocalciferol (VITAMIN D) 50,000 unit Oral Capsule Take 1 Cap by mouth once a week. 12 Cap 3 ??? loratadine-pseudoephedrine (LORATADINE-PSEUDOEPHEDRINE) 10-240 mg Oral Tablet Sustained [id number] hr Take 1 Tab by mouth daily. 30 Tab 2 ??? moxifloxacin (VIGAMOX) 0.5 % Opht Drops Place 1 Drop into the right eye 2 times daily. (Patientnot taking: Reported on 10/20/2019) 0 ??? ondansetron (ZOFRAN-ODT) 4 mg Oral Tablet, Rapid Dissolve Take 1 Tab by mouth every 6 hours as needed for Nausea for up to 30 days. 10 Tab 0 ??? oxyCODONE (ROXICODONE) 5 mg Oral Tablet Take 1-2 Tabs by mouth every 8 hours as needed for Major Surgery/Trauma (G89.18) (moderate/severe 6-10 pain). (Patient not taking: Reported on 03/14/2019) 60 Tab 0 ??? tiZANidine (ZANAFLEX) 2 mg Oral Tablet Take 2 Tabs by mouth every 8 hours as needed for Other (muscle relaxant). (Patient not taking: Reported on 10/20/2019) 60 Tab 0 ??? vit C/E/Zn/coppr/lutein/zeaxan (PRESERVISION AREDS-2 ORAL) Take by mouth 2 times daily. No current facility-administered medications on file prior to visit. Allergies: Allergies Allergen Reactions ??? Celecoxib Rash Constitutional: Fever No Weight loss No Fatigue No Genitourinary: Sex issues no Pelvic Pain no Frequent infxn no Today???s Brief PE: Vital Signs: LMP (LMP Unknown) Exam: pt self examined, self palpated reported findings...moved camera in order for me to examine the wound No PE required Data: POCT Urinalysis: Labs: No results found for: WBC, HGB, HCT, MCV, PLT No results found for: CREATININE, BUN, NA, K, CL, CO2 No results found for: PSA No results found for this visit on 10/31/19. Imaging: Imaging studies (both written report and images on file) were reviewed in [employer], if pertinent see plan Existing Medical Record: Progress Notes, Consults and miscellaneous records were reviewed in [employer] and pertinent positives are: see synopsis Outside paper records reviewed: NA Diagnoses: No diagnosis found. Plan: Hematuria ?Urine [...] the future to document infections ?? 10-10-19 CT scan - IMPRESSION: 1. 1.5 cm right lower pole renal stone. 2. Right kidney urothelial enhancement, suggesting urothelial inflammation. 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 3. 3 cm AAA. Has possible CIS versus chronic inflammation in bladder Will perform cysto bladder biopsy Get KUB to see if stone visible,. Has small AAA which shouldn't preclude patient from ESWL 10-31-19 Telephone visit - discussed with patient negative result Had post op UTI, treated with ABX Return to clinic to discuss stone surgery I spent a total of 25 minutes today in online evaluation and discussion with the family. Amari Wheeler MD [facility] [address] [place] [address] 10/31/2019 3:20 PM documented in this encounter Plan of Treatment Upcoming Encounters Date Type Department Care Team (Late st Contact Info) Description 05/16/2024 9:30 AM EST Office Visit [facility] [address] [place] [address] Gilda Francis PA [address] [place] [address] documented as of this encounter Visit Diagnoses Diagnosis Other microscopic hematuria- Primary documented in this encounter Additional Health Concerns Assessment Noted Time A fall risk assessment has been complete d for the patient 12/06/2018 7:30 AM EDT documented as of this encounter Care Teams Varitypist Relationship Specialty Start Date End Date Mann [place] [address] [place] [address] PCP - General Internal Medicine 08/23/12 07/13/22 documented as of this encounter
--- OUTSIDE RECORDS SUMMARY | 2024-03-27 15:03 | XMS_ITS | Encounter Summary ---
Author Organization [place] [address] Care Team Providers Care Machine Shop Supervisor Name Role Phone Mann Irene MD Primary Care Provider [phone] Reason for Visit * Auth/Cert/Inpt Specialty Diagnoses / Procedures Referred By Ramona mcdaniel Referred To Contact Diagnoses Urine culture positive Urine culture positive [R82.79] Procedures OH CYSTOSCOPY,INSERT URETERAL STENT OH FRAGMENT KIDNEY STONE/ ESWL cystoscopy right stent placement, right extracorporeal shock wave lithotripsy . Referral ID Status Reason Start Date Expiration Date Visits Re quested Visits Authorized [id number] 1 1 Encounter Details Date Type Department Care Team (Latest Contact Info) Description 11/28/2019 10:28 AM EDT - 11/28/2019 3:39 PM EDT Hospital Encounter [facility]TT SAME DAY SURGERY [address] [facility] [place] [address] Amari Wheeler MD [address] [place] [address] Hypercholesterolemia (Primary Dx); Urine culture positive Discharge Disposition: Home or Self Care Social [...] Sign Reading Time Taken Comments Blood Pressure 152/75 11/28/2019 2:59 PM EDT Pulse 80 11/28/2019 2:59 PM EDT Temperature 36.2 ??C (97.2 ??F) 11/28/2019 2:59 PM ED T Respiratory Rate 22 11/28/2019 2:59 PM EDT Oxygen Saturation 98% 11/28/2019 2:59 PM EDT Inhaled Oxygen Concentration - - Weight 83.7 kg (184 lb 9.6 oz) 11/28/2019 10:55 AM EDT Height 154.9 cm (5' 1 ) 11/22/2019 12:54 PM EDT Body Mass Index 34.88 11/22/2019 12:54 PM EDT documented in this encounter Functional [...] Entry Date Author No 12/06/2018 7:32 AM EDT Tomi Slaughter CCMA documented in this encounter Discharge Instructions * Discharge Instructions* Raghav Nolan MD - 11/28/2019 3:19 PM EDT +++++++++++++++++++++++++++++++++++++++++++++++++++++++++++++++++++ [facility] Discharge Instructions - Following Anesthesia We [...] our office at . [facility] +++++++++++++++++++++++++++++++++++++++++++++++++++++++++++++++++++ Call for inability to urinate, fevers > [...] been given a prescription by your doctor. documented in this encounter Medications at Time [...] 12/21/19 20 documented as of this encounter Ordered Prescriptions Prescription Sig Dispense Quantity Refills Last Filled Start Date End Date HYDROcodone-acetam inophen (NORCO) 5-325 mg Oral Tablet Take 1 Tab by mouth every 4 hours as needed for Major Surgery/Trau ma (G89.18) for up to 10 days. 30 Tab 11/28/2019 12/08/2019 tamsulosin (FLOMAX) 0.4 mg Oral Capsule Take 1 Cap by mouth nightly. 30 Cap 11/28/2019 12/21/2019 documented in this encounter Discharge Disposition Disposition Code Departure Means Destination Home or Self Mcfp documented in this encounter H&P Notes * Conor Bergeron NP - 11/28/2019 10:25 AM EDT [facility] History and Physical Name: Stella Hylton ADDRESS: [address] [place] [address] : 1945 AGE: 74 y.o. Assessment: Urine culture positive [R82.79] Plan: Procedure(s): cystoscopy right stent placement, right extracorporeal shock wave lithotripsy . per Amari Wheeler MD Admitting Physician: Amari Wheeler MD Date of Admit: 11/28/2019 Subjective SUBJECTIVE Chief Complaint: Urine culture positive [R82.79] History of Present Illness: Patient is a 74 y.o. female with Urine culture positive [R82.79] who presents for surgical intervention. Past Medical History: Diagnosis Date ??? Allergy [...] Surgeon: Conor Ramirez MD; Location: [facility]; Service: Ophthalmology ??? CATARACT REMOVAL Left 03/14/2019 LEFT EYE CATARACT EXTRACTION WITH PHACOEMULSIFICATION AND INTRAOCULAR LENS; Surgeon: Conor Ramirez MD; Location: [facility]; Service: Ophthalmology ??? COLONOSCOPY ??? HEMORRHOID SURGERY ??? HIP ARTHROPLASTY Right 02/16/2014 RIGHT TOTAL HIP REPLACEMENT; Surgeon: Burce Oh MD; Location: ED MAIN OR; Service: Orthopedics ??? HYSTERECTOMY complete ??? LUMBAR DISC SURGERY 11/03/2012 Surgeon: Elza Bautista MD; Location: [facility] MAIN OR; Service: ??? TOTAL KNEE ARTHROPLASTY Left 12/28/2018 left knee total replacement; Surgeon: Bruce Oh MD; Location: ED MAIN OR; Service: Orthopedics Prior to Admission [...] mouth daily. 08/09/19 Yes Mann Irene MD sulfamethoxazole-trimethoprim (BACTRIM;SEPTRA) 400-80 mg Oral Tablet Take 1 Tab by mouth 2 times daily for 7 days. 11/23/19 11/30/19 Amari Wheeler MD Allergies Allergen Reactions ??? Celecoxib Rash Social [...] Neg Hx Active Hospital Problems Diagnosis ??? *Urine culture positive Blood pressure 154/79, pulse 78, temperature 97.9 ??F (36.6 ??C), temperature source Oral, resp. rate 18, height 5' 1 (1.549 m), weight 184 lb 9.6 oz (83.7 kg), SpO2 98 %, not currently .Pain: 0/10 Review of Systems: The listed systems were reviewed and reveal the following in addition to any already discussed in the HPI: Review of Systems Constitutional: Negative. Negative for chills, diaphoresis, fever, malaise/fatigue and weight loss. HENT: Negative for congestion, ear discharge, ear pain, hearing loss, nosebleeds and sore throat. Eyes: Negative for blurred vision, double vision, pain, discharge and redness. Respiratory: Negative. Negative for cough, sputum production, shortness of breath and wheezing. (+) History of tobacco use (2.5 pack years): former Cardiovascular: Negative for chest pain, palpitations, orthopnea and leg swelling. Gastrointestinal: Negative. Genitourinary: Positive for dysuria, flank pain, hematuria and urgency. Hx of Urine culture positive (R82.79) Seen in the emergency room on 10/31/19 for lightheadedness as well as nausea and vomiting, gross hematuria and right flank pain. States her BP was very heigh and that she had a UTI with a kidney stone on the right. Had some urgency and frequency. Was placed on ABX for three days and the UTI returned. Was placed on ABX per Dr. Wheeler on Thursday. Denies any pain upon exam. ? Skin: Negative. Endo/Heme/Allergies: Negative. Psychiatric/Behavioral: The patient is nervous/anxious. Objective OBJECTIVE Physical Exam: Body mass index is 34.88 kg/m??. Body surface area is 1.83 meters squared. Physical Exam Vitals signs and nursing note reviewed. Exam conducted with a foundation drill operator present. Constitutional: General: She is not in acute distress. Appearance: She is well-developed. She is not diaphoretic. HENT: Head: Normocephalic. Mouth/Throat: Pharynx: No oropharyngeal exudate. Eyes: General: No scleral icterus. Right eye: No discharge. Left eye: No discharge. Conjunctiva/sclera: Conjunctivae normal. Pupils: Pupils are equal, round, and reactive to light. Neck: Musculoskeletal: Normal range of motion and neck supple. Thyroid: No thyromegaly. Vascular: No JVD. Trachea: No tracheal deviation. Cardiovascular: Rate and Rhythm: Normal rate and regular rhythm. Heart sounds: Normal heart sounds. No murmur. No friction rub. No gallop. Pulmonary: Effort: Pulmonary effort is normal. No respiratory distress. Breath sounds: Normal breath sounds. No stridor. No wheezing or rales. Chest: Chest wall: No tenderness. Abdominal: General: Bowel sounds are normal. Palpations: Abdomen is soft. Tenderness: There is no abdominal tenderness. There is no guarding. Musculoskeletal: Normal range of motion. General: No tenderness or deformity. Lymphadenopathy: Cervical: No cervical adenopathy. Skin: General: Skin is warm and dry. Coloration: Skin is not pale. Findings: No erythema or rash. Neurological: Mental Status: She is alert and oriented to person, place, and time. Psychiatric: Behavior: Behavior normal. Thought Content: Thought content normal. Judgment: Judgment normal. Labs: Reviewed COVID negative on 11/24/19 Results for STELLA HYLTON ( ) as of 11/28/2019 10:27 Ref. Range 10/30/2019 23:58 11/16/2019 15:18 UA Color Unknown Brown Yellow UA Glucose Latest Ref Range: Negative mg/dL Negative Negative UA Ketones Latest Ref Range: Negative mg/dL Trace (5 mg/dL) (A) Negative UA Blood Latest Ref Range: Negative Large (A) Small (A) UA pH Latest Ref Range: 5.0 - 8.0 pH 6.5 6.0 UA Protein Latest Ref Range: Negative mg/dL >=300 (A) 30 (A) UA Urobilinogen Latest Ref Range: <=1 mg/dL 2.0 (A) Normal UA Nitrite Latest Ref Range: Negative Positive (A) Positive (A) UA Leuk Est Latest Ref Range: Negative Moderate (A) Large (A) UA Spec Grav Latest Ref Range: 1.001 - 1.035 no units >=1.030 1.016 RBC, UA Latest Ref Range: 0 - 3 /HPF >100 (H) 4 (H) UA Mucus Latest Units: /LPF 2+ Trace UA Bacteria Latest Ref Range: Negative /HPF 2+ (A) 1+ (A) UA Appear Latest Ref Range: Clear Turbid (A) Hazy (A) UA Squam Epi Latest Units: /LPF Rare Few WBC, UA Latest Ref Range: 0 - 4 /HPF 75 (H) 58 (H) Radiology: CT ABDOMEN AND PELVIS WITHOUT IV OR ORAL CONTRAST, 10/31/2019 1:20 AM ?? CLINICAL HISTORY: -Flank pain, hematuria ?? COMPARISON: 07/22/2019 ?? PROCEDURE COMMENTS: Noncontrast multidetector CT examination of the abdomen and pelvis without IV or oral contrast per protocol. Multiplanar reconstructions. Automated exposure control for dose reduction was used. CTDIvol: 11.7 mGy. DLP: 559 mGy-cm. ?? FINDINGS: ?? LOWER THORAX: Lung bases unremarkable. ?? ABDOMEN AND PELVIS: Unenhanced images of the liver, adrenals, spleen, pancreas normal. There is a nonobstructing oval stone in the right lower pole kidney, unchanged measuring approximately 11 x 6 mm. Minimal caliectasis and prominence of ureter unchanged. No right ureteral stone noted. No left renal calcifications. No left-sided obstruction. No free air, free fluid. ?? Small bowel loops appear normal. No evidence of appendicitis. Occasional diverticula without diverticulitis. Status post hysterectomy. Artifact in the pelvis from right hip prosthesis. ?? Unchanged 3 cm infrarenal abdominal aortic aneurysm. ? Impression ?? No acute process within abdomen and pelvis. Stable right renal calcification. Stable abdominal aortic aneurysm. EKG:EKG 10/30/19- SR with SA Conor Bergeron NP 11/28/2019 Cosigned by Liam Scott MD at 11/28/2019 1:54 PM EDT Associated attestation - Liam Scott MD - 11/28/2019 1:54 PM EDT d documented in this encounter Procedure Notes * Amari Wheeler MD - 11/28/2019 1:00 PM EDT Images from the original note were not included. [facility] ESWL, Stent placement Operative Report Indications: The patient has right nephrolithiasis. Treatment options have been discussed and the patient has elected to proceed with Right stent placement, Right ESWL. Pre-operative Diagnosis: right nephrolithiasis Post-operative Diagnosis: same Surgeon: Amari Wheeler MD Procedure: cystoscopy, Right stent placement, Right ESWL. Assistants: none Anesthesia: General LMA anesthesia Procedure Details: The risks, benefits, complications, treatment options, and expected outcomes were discussed with the patient. The possibilities of reaction to medication, pulmonary aspiration, perforation of viscus,bleeding, recurrent infection, the need for additional procedures, failure to diagnose a condition,and creating a condition requiring transfusion or operation were discussed with the patient. exterminator termite complications of ESWL including renal damage, pain and the currently discredited link the diabetes have been discussed. The patient concurred with the proposed plan, giving informed consent. The DVT Prophylaxis Protocol was observed but pharmacologic agents were contra-indicated by the performance of a procedure prone to heavy bleeding. The A Guidelines for Antibiotic Prophylaxis will be followed. The site of surgery was properly noted [...] in the usual sterile fashion. The 21 Danish cystoscope was inserted. Under direct vision, the urethra appears normal. The bladder neck is unremarkable. Both ureteral orifices were identified with clear efflux from each. Each lay in a normal position on the trigone. No foreign objects were identified. Initial examination of the bladder mucosa shows no gross abnormalities. The right ureteral orifice was then identified. A 0.035 guidewire was then inserted into the ureteral orifice under fluoroscopic guidance. A 26 cm x 6 armenian JJ stent was then placed over the guide ensuring good coil in both the kidney and bladder. A string was not left in place. The scope was removed. The patient was then transferred to the ESWL room The site of surgery was properly noted and marked. The patient was taken to the Operating Room, identified as Stella Hylton and the procedure verified as extracorporeal shock wave lithotripsy. A Time Out was held and the above information confirmed. Intravenous ancef has been provided. Pneumatic boots have been applied. The patient was positioned to image the calculus. The position and size were confirmed. After the induction of satisfactory anesthesia the patient was positioned with the calculus at the focal point of the treatment device. Shock wave lithotripsy was applied with a power setting rangingfrom 0.1 to 3.5. A total of 3000 shocks were delivered to 1 stone(s). A 2 minute pause was observed. Specific number of shocks per stone were noted on the treatment record. Fluroscopic visualization c onfirmed a good treatment effect. Instrument, sponge, and needle counts were correct. Findings: right renal calculus Estimate Blood Loss: 5 ml Drains: none Specimens: none Complications: None; patient tolerated the procedure well. Disposition: PACU - hemodynamically stable Attending Attestation: I performed the procedure Amari Wheeler MD [facility] [address] [place] [id number] 11/28/2019 1:00 PM documented in this encounter Nursing Notes * Julianna Velázquez RN - 11/28/2019 1:03 PM EDT Patient moved from Cysto to OR #7 for Lithotripsy part of procedure. Patient moved by anesthesia & OR nursing staff. * Lily Gutierrez RN - 11/22/2019 1:07 PM EDT Images from the original note were not included. PREPARING FOR YOUR SURGERY Date of Surgery 11/2019 ARRIVE 1100 Medications ??? Take the following pills with a small sip of water on the morning of surgery: NONE ??? Aspirin, coumadin, blood thinners, ibuprofen, Plavix, fish oil, vitamin E, any supplements, andany anti-inflammatory products may be stopped as directed by your physician.STOPPING DICLOFENAC ANDBABY ASA /11/23/2019. Food, Drinks, Tobacco ?? For your safety, do not eat any food after midnight. This includes gum, mints, candy, chewing tobacco, and dip. You may consume water, Gatorade, Powerade, black coffee/tea (no milk, no cream/creamers, no sugar) up to two hours prior to your arrival time . No exceptions or substitutions may be made [...] ??? Review instructions provided by your surgeon. Legal Support Manager ??? On the day of surgery, it is important to have a Legal Support Manager, someone who is 18 years or older, to accompany you and remain in the CAR for the duration of your surgery. This person should be available for the Perioperative Team, which includes your surgeon, to communicate with before, during and after your surgery. Someone should also remain with you for [address] you and make sure you are SAFE during that time. ??? COURTNEY OR YESSY MAY LEAVE THE PARKING LOT. THEY WILL NEED TO RETURN WITHIN [address] WHEELER HAS TALKED TO THEM. PLEASE BRING THEIR CELL # WITH YOU. Hygiene ??? You may brush your teeth and gargle the morning of surgery. Do not swallow water. ??? Please shower the morning of surgery or the night before. Do not wear makeup (including eye makeup) lotion, powder or deodorant. Please do not shave the operative extremity or near the operative extremity. ??? Nail anguillan must be removed from operative extremity. Personal [...] a Living Will and Durable Power of Child Care Group Leader for Healthcare, please bring a copy. ??? [...] an excellent experience while you are here. COVID TEST AT [facility] [phone] ON 11/24/2019 AT 10:20 AM Same Day Surgery Unit - [place] at [phone]; FTT: Main Entrance 1A, stop at front office attendant and you will be sent to registration - [address] [place] [phone] documented in this encounter Plan of Treatment Upcoming Encounters Date Type Department Care Team (Late st Contact Info) Description 05/16/2024 9:30 AM EST Office Visit [facility] [address] [place] [address] Gilda Francis PA [address] [place] [address] documented as of this encounter Procedures Procedure Name Priority Date/Time Associated Diagnosis Comments SCANNED RHYTHM STRIPS 11/30/2019 7:24 PM EDT FL LITHOTRIPSY SIVA 11/28/2019 1:50 PM EDT EXTRACORPOREAL SHOCK WAVE THERAPY LITHOTRIPSY WITH/WITHOUT CYSTOSCOPY/STENT PLACEMENT/REMOVAL 11/28/2019 12:27 PM EDT Urine culture positive Special Needs ESBL positive in urine. Contact precautions CYSTOSCOPY STENT INSERTION OR EXCHANGE 11/28/2019 12:27 PM EDT Urine culture positive Special Needs ESBL positive in urine. Contact precautions documented in this encounter Results * XR [...] ??R82.79-Other abnormal findings on microbiological examination of opzgl-EWY-33-CM E78.00-Pure hypercholesterolemia, [id number]-CM COMPARISON: ??CT 10/31/2019 PROCEDURE COMMENTS: ??AP view(s) [...] HISTORY: R82.79-Other abnormal findings on microbiologicalexamination of sgowd-VGK-44-CM E78.00-Pure hypercholesterolemia, [id number]-IVP-78-CM COMPARISON: CT 10/31/2019 PROCEDURE COMMENTS: AP view(s) [...] DIAGNOSTIC IMAGING ORDERABLE S Final Result * SCANNED RHYTHM STRIPS (11/30/2019 7:24 PM EDT) Anatomical Region Laterality Modality Other 11/30/2019 7:24 PM EDT us Unknown Unknown IMG ECG ORDERABLES Final Result * FL LITHOTRIPSY (11/28/2019 1:50 PM EDT) Narrative PACS - 11/28/2019 3:16 PM EDT Fluoroscopy was provided for lithotripsy in the surgery department and will not be interpreted by a Radiologist. ??There is no charge from [facility]. ??Refer to OpNote for Report. us Amari Wheeler MD [facility] FLUOROSCOPY ORDERABLES Final Result PACS documented in this encounter Visit Diagnoses Diagnosis Urine culture positive- Primary Other nonspecific finding on examination of urine Urine culture positive Other nonspecific finding on examination of urine Hypercholesterolemia Pure hypercholesterolemia Urine culture positive Other nonspecific finding on examination of urine Hypercholesterolemia Pure hypercholesterolemia documented in this encounter Admitting Diagnoses Diagnosis Urine culture positive Other nonspecific finding on examination of urine documented in this encounter Administered Medications Inactive Administered Medications - up to 1 most recent administrations Medication Order MAR Action Action Date Dose Rate Site fentaNYL (SUBLIMAZE) 50 mcg/mL injection 1 dose, Starting on Thu11/28/19 at 1410, Until Thu11/28/19 at 1413, Heather Briscoe : cabinet override fentaNYL (SUBLIMAZE) injection 25 mcg 25 mcg, Intravenous, EVERY 5 MIN PRN, 4 doses, Starting on Thu11/28/19 at 1408, Until Thu11/28/19 at 195, Pain, For initial pain. Maximum dose not to exceed 100 mcg., PACU Given 11/28/2019 2:18 PM EDT 25 mcg lactated ringers infusion Intravenous, at 100 mL/hr, PREPROCEDURE CONTINUOUS, Starting on Thu11/28/19 at 1033, Until Thu11/28/19 at 1953, To be given in SDS/Pre-op Holding Area, Pre-op (Holding/SDS Meds) New Bag 11/28/2019 2:17 PM EDT 100 m L/hr ondansetron (ZOFRAN) injection 4 mg 4 mg, Intravenous, PRN, 1 dose, Starting on Thu11/28/19 at 1408, Until Thu11/28/19 at 1953, Nausea, PACU ondansetron (ZOFRAN-ODT) disintegrating tablet 8 mg 8 mg, Oral, PRN, 1 dose, Starting on Thu11/28/19 at 1408, Until Thu11/28/19 at 195, Nausea, Dissolve in mouth, PACU oxyCODONE (ROXICODONE) immediate release tablet 5 mg 5 mg, Oral, EVERY 1 HOUR PRN, 2 doses, Starting on Thu11/28/19 at 1408, Until Thu11/28/19 at 1954, Pain, When tolerating oral intake, PACU Given 11/28/2019 2:16 PM EDT 5 mg documented in this encounter Discontinued Medications Medication Sig Discontinue Reason Start Date End Da te difluprednate (DUREZOL) 0.05 % Opht Drops Place 1 Drop into the right eye 2 times daily. Can substitute Inveltys or Prednisolone Removed During Admission Medication Review 02/28/2019 11/22/2019 moxifloxacin (VIGAMOX) 0.5 % Opht Drops Place 1 Drop into the right eye 2 times daily. Removed During Admission Medication Review 02/28/2019 11/22/2019 ondansetron (ZOFRAN-ODT) 4 mg Oral Tablet, Rapid Dissolve Take 1 Tab by mouth every 6 hours as needed for Nausea for up to 30 days. Removed During Admission Medication Review 10/31/2019 11/22/2019 oxyCODONE (ROXICODONE) 5 mg Oral Tablet Take 1-2 Tabs by mouth every 8 hours as needed for Major Surgery/Trauma (G89.18) (moderate/severe 6-10 pain). Removed During Admission Medication Review 12/30/2018 11/22/2019 sulfamethoxazole-tri methoprim (BACTRIM;SEPTRA) 400-80 mg Oral Tablet Take 1 Tab by mouth 2 times daily for 10 days. Removed During Admission Medication Review 11/21/2019 11/22/2019 tiZANidine (ZANAFLEX) 2 mg Oral Tablet Take 2 Tabs by mouth every 8 hours as needed for Other (muscle relaxant). Removed During Admission Medication Review 12/30/2018 11/22/2019 vit C/E/Zn/coppr/lutein/ zeaxan (PRESERVISION AREDS-2 ORAL) Take by mouth 2 times daily. Removed During Admission Medication Review 11/22/2019 documented as of this encounter Active and Recently Administered Medications Times are shown in EDT. Scheduled Medication Order 11/26/2019 11/27/2019 11/28/2019 acetaminophen (TYLENOL) tablet 1,000 mg 1,000 mg, Oral, ONCE, 1 dose, On Thu11/28/19 at 1415, Do not give if patient received acetaminophen within the last 6 hours Maximum adult dose of acetaminophen is 4000 mg from all sources in 24 hours. , PACU 1415 (Due) ciprofloxacin in 5 % dextrose (CIPRO) IVPB 400 mg (COMPLETED) 400 mg, Intravenous, ONCE, 1 dose, On Thu11/28/19 at 1230, Administer over 60 Minutes, Pre-op (Holding/SDS Meds) 1232 (Given - Provid er: Rachael Milligan CRNA) PRN Medication Order 11/26/2019 11/27/2019 11/28/2019 dimenhyDRINATE (DRAMAMINE) injection 12.5-25 mg 12.5-25 mg, Intravenous, PRN, 2 doses, Starting on Thu11/28/19 at 1408, Until Thu11/28/19 at 195, Nausea, For persistent nausea unrelieved by other antiemetics. Begin with lowest dose unless otherwise directed. Give remainder of dose if nausea unrelieved in 20 minutes., PACU fentaNYL (SUBLIMAZE) injection 25 mcg 25 mcg, Intravenous, EVERY 5 MIN PRN, 4 doses, Starting on Thu11/28/19 at 1408, Until Thu11/28/19 at 1954, Pain, For initial pain. Maximum dose not to exceed 100 mcg., PACU 1413 (Given - Provid er: Heather Briscoe RN)1418 (Given - Provider: Heather Briscoe RN) HYDROmorphone (DILAUDID) injection 0.25 mg 0.25 mg, Intravenous, EVERY 10 MIN PRN, Starting on Thu11/28/19 at 1408, Until Thu11/28/19 at 1954, Pain, Do not exceed 2 mg in one hour unless otherwise ordered by the Anesthesia Coordinator For pain unrelieved by fentanyl, PACU lactated ringers infusion Intravenous, at 100 mL/hr, PREPROCEDURE CONTINUOUS, Starting on Thu11/28/19 at 1033, Until Thu11/28/19 at 195, To be given in SDS/Pre-op Holding Area, Pre-op (Holding/SDS Meds) 1127 (New Bag - Prov ider: Tiffanie Hartmann RN)1343 (Anesthesia Volume Adjustment - Provider: Rachael Milligan CRNA)1417 (New Bag - Provider: Heather Briscoe RN)1459 (Stopped - Provider: Candice Paulino RN) ondansetron (ZOFRAN) injection 4 mg(Linked Group 1) 4 mg, Intravenous, PRN, 1 dose, Starting on Thu11/28/19 at 1408, Until Thu11/28/19 at 1954, Nausea, PACU ondansetron (ZOFRAN-ODT) disintegrating tablet 8 mg(Linked Group 1) 8 mg, Oral, PRN, 1 dose, Starting on Thu11/28/19 at 1408, Until Thu11/28/19 at 1954, Nausea, Dissolve in mouth, PACU oxyCODONE (ROXICODONE) immediate release tablet 5 mg 5 mg, Oral, EVERY 1 HOUR PRN, 2 doses, Starting on Thu11/28/19 at 1408, Until Thu11/28/19 at 1954, Pain, When tolerating oral intake, PACU 1416 (Given - Provid er: Heather Briscoe RN) Linked Groups Order Group 1: ondansetron (ZOFRAN) injection 4 mgJump to med 4 mg, Intravenous, PRN, 1 dose, Starting on Thu11/28/19 at 1408, Until Thu11/28/19 at 1954, Nausea, PACU Or ondansetron (ZOFRAN-ODT) disintegrating tablet 8 mgJump to med 8 mg, Oral, PRN, 1 dose, Starting on Thu11/28/19 at 1408, Until Thu11/28/19 at 1954, Nausea, Dissolve in mouth, PACU documented in this encounter Orders Medications Ordered That [place] h[facility] Not Have Been Administered Count Last Ordered Date First Ordered Date acetaminophen (TYLENOL) tablet 1,000 mg 1 0 11/28/2019 ceFAZolin (ANCEF) IVPB 2 g 1 11/28/2019 ciprofloxacin in 5 % dextros e (CIPRO) IVPB 400 mg 1 11/28/2019 dimenhyDRINATE (DRAMAMINE) i njection 12.5-25 mg 1 11/28/2019 HYDROmorphone (DILAUDID) injection 0.25 mg 1 11/28/2019 ondansetron (ZOFRAN) injection 4 mg 1 11/27 ondansetron (ZOFRAN-ODT) dis integrating tablet 8 mg 1 11/28/2019 Discharge Count Last Ordered Date First Orde red Date DISCHARGE PATIENT 1 11/28/2019 documented in this encounter Additional Health Concerns Infection Onset Date Last Indicated Resolved Time ESBL organism 11/16/2019 11/16/2019 03/28/2022 1:0 5 PM EST Assessment Noted Time A fall risk assessment has been complete d for the patient 12/06/2018 7:30 AM EDT documented as of this encounter Care Teams Machine Shop Supervisor Relationship Specialty Start Date End Date Mann Irene MD [address] [place], [place] [address] PCP - General Internal Medicine 08/23/12 07/13/22 documented as of this encounter
--- OUTSIDE RECORDS SUMMARY | 2024-03-27 15:03 | XMS_ITS | Encounter Summary ---
Author Organization [place] [address] Care Team Providers Care Ex Chef Name Role Phone Mann Irene MD Primary Care Provider [phone] Reason for Visit * Reason Onset Date Comments Care Management - Chart Review 11/07/2019 Encounter Details Date Type Department Care Team (Late st Contact Info) Description 11/07/2019 Patient Outreach [facility] [address] [place] [address] Wanda Gilliland BS, COS Care Management - Chart Review Social History Tobacco Use Types Packs/Day Years [...] No 12/06/2018 7:32 AM EDT Tomi Slaughter CLAUDIA * Does this person have serious difficulty walking or climbing stairs? Answer Date of Assessment Author No 12/06/2018 7:32 AM EDT Tomi Slaughter CLAUDIA * Does this person have difficulty dressing or bathing? Answer Date of Assessment Author No 12/06/2018 7:32 AM EDT Tomi Slaughter CLAUDIA * Because of a physical, mental or emotional condition, does this person have difficulty doing errands alone such as visiting a doctor's office or shopping? Answer Date of Assessment Author No 12/06/2018 7:32 AM EDT Tomi Slaughter CLAUDIA documented as of this encounter Mental Status * Because of a physical, mental or emotional condition, does this person have serious difficulty concentrating, remembering or making decisions? Answer Entry Date Author No 12/06/2018 7:32 AM EDT Tomi Slaughter CLAUDIA documented in this encounter Progress Notes * Wanda Gilliland BS, COS - 11/07/2019 9:59 AM EDT Pt called referral ine stating she was told to call for her test results for ED visit. COS ex[plained that these results would have to come from doctors office. Please call pt and go over her testresults from her ED visit at the home number listed on chart. Thank you documented in this encounter Miscellaneous Notes * Telephone Encounter - Shelby Ernandez CCMA - 11/07/2019 10:26 AM EDT Pt notified * Telephone Encounter - Mann Irene MD - 11/07/2019 10:08 AM EDT Labs all ok, did have urinary tract infection - but it was sensitive to the medication they have her at the ER. So, she should complete the keflex but no new medications needed. * Telephone Encounter - Shelby Ernandez CCMA - 11/07/2019 10:04 AM EDT Please advise documented in this encounter Plan of Treatment Upcoming Encounters Date Type Department Care Team (Late st Contact Info) Description 05/16/2024 9:30 AM EST Office Visit [facility] [address] [place] [address] Gilda Francis PA [address] [place] [address] documented as of this encounter Visit Diagnoses Not on filedocumented in this encounter Additional Health Concerns Assessment Noted Time A fall risk assessment has been complete d for the patient 12/06/2018 7:30 AM EDT documented as of this encounter Care Teams Ex Chef Relationship Specialty Start Date End Date Mann Irene MD [address] [place] [phone] PCP - General Internal Medicine 08/23/12 07/13/22 documented as of this encounter
--- OUTSIDE RECORDS SUMMARY | 2024-03-27 15:03 | XMS_ITS | Encounter Summary ---
Author Organization [place] [address] Care Team Providers Care Standard Machine Stitcher Name Role Phone Mann Irnee MD Primary Care Provider [phone] Reason for Visit * Auth/Cert/Inpt Specialty Diagnoses / Procedures Referred By Ramona mcdaniel Referred To Contact Diagnoses Hematuria, unspecified type Hematuria, unspecified type [R31.9] Procedures [place] CYSTOURETHROSCOPY,BIOPSIES cystoscopy bladder biopsy Referral ID Status Reason Start Date Expiration Date Visits Re quested Visits Authorized [id number] 1 1 Encounter Details Date Type Department Care Team (Late st Contact Info) Description 10/26/2019 10:30 AM EDT Anesthesia Event EDG PERIOP [facility] [place] [address] Michelle Tucker MD [address] [facility] [place] [address] Tanya Lawrence APRN [address] [facility] [address] [place] [address] Anesthesia Record Procedure Summary Procedure Name Responsible Anesthesiologist Anesthesia Start Time Anesthesia Stop Time CYSTOSCOPY TRANSURETHRAL RESECTION BLADDER TUMOR - FULGURATION/EVACUATION OF CLOT Michelle Tucker MD 10/26/19 1030 10/26/19 1107 Events Date Time Event Comment 10/26/2019 0953 1016 AN Equip Check 1030 An Start 1032 An Start Data 1037 Immediate Pre Anesthetic Ass es 1040 Anesthesia Ready 1046 Time out 1048 Incision 1101 an stop data 1107 Handoff I completed my SBAR handoff to [...] of understanding from the receiving PACU/ICU steam table worker 1107 An Stop Meds Name Total propofol (DIPRIVAN) injection 100 mg propofol (DIPRIVAN) infusion 10 mg/mL 14 8,922.5 mcg lidocaine injection 1% 50 mg ceFAZolin (ANCEF) IVPB 2 g 2 g lactated ringers infusion 200 mL * Agents Name O2 Et Sevoflurane * Blood No blood administrations on file. Lines, Drains, and Airways Type Details Placement Removal Peripheral IV 10/26/19; 924; 20; Right; Hand; m mike rn; 1; 10/26/19; 1142; No Complications, Dressing applied, Catheter intact 10/26/19 0925 by Tati Wheeler RN 10/26/19 1142 by Lily Mehta, UMA Airway Device: Nasal Cannul a Salter; Placement Date: 10/26/19; Placement Time: 1032 (created via procedure documentation); Removal Date: 10/26/19; Removal Time: 1328 10/26/19 1032 by Dwaine Dykes CRNA 10/26/19 1328 by Discharge Provider, Automatic Incision/Procedural Site 10/26/19; 1051; (bladder); 10/26/19; 1606 10/26/19 1051 by Tameka Ibanez, UMA 10/26/19 1606 by Discharge Provider, Automatic documented in this encounter Social History Tobacco [...] Tomi Slaughter CCMA documented in this encounter Procedure Notes * Dwaine Dykes CRNA - 10/26/2019 10:32 AM EDTAssociated Order(s): Airway Intraop Airway Placement: Date/Time: 10/26/2019 10:32 AM Induction type: IV Airway type: Nasal cannula salter documented in this encounter OR Notes * Anesthesia Postprocedure Evaluation - Eleanor Mckee MD - 10/26/2019 1:28 PM EDT Post-Anesthesia Evaluation Note Patient Name: Stella Hylton Patient Date: October 26, 2019 Post-Anesthesia Evaluation Patient Location: PACU Post op vitals: stable Difficult airway: no Nausea controlled: yes Level of consciousness: awake, alert and oriented Post anesthesia pain: adequate analgesia Long acting local anesthetic: n/a Airway patency: patent Respiratory status: spontaneous ventilation Cardiovascular status: stable Hydration status: euvolemic Perioperative complications: NONE Vitals: 10/26/19 1141 BP: 132/62 Pulse: 59 Resp: 20 Temp: SpO2: 100% * Anesthesia Preprocedure Evaluation - Eleanor Mckee MD - 10/20/2019 2:13 PM EDT Pre-Anesthesia Evaluation Note Patient Name: Stella Hylton Sex: female Patient : 1945 Age: 74 y.o. Patient Date: October 20, 2019 Procedure(s): cystoscopy bladder biopsy Anesthesia Evaluation Previous anesthesia. History of anesthetic complications: Motion sickness. Airway Mallampati: II TM distance: >3 FB Neck ROM: full No increased risk of difficult airway Dental - normal exam Pulmonary (+) History of tobacco use (2.5 pack years): former Physical exam: Comments: Clear to auscultation Cardiovascular (+)Hyperlipidemia Physical exam: Rhythm: regular Rate: normal Neuro/Psych - negative ROS GI/Hepatic/Renal Kidney stones: Hx of. 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 Anesthesia Plan ASA 2 Last solid intake: The patient has not eaten within the last 8 hours. Last clear liquid intake: The patient has not had clear liquids within the last 2 hours. Anesthesia Plan: general and MAC Induction: intravenous Monitors: STD Emend ordered PONV [...] EST Office Visit [facility] [address] [place] [phone] Gilda Francis PA [address] [place] [address] documented as of this encounter Procedures Procedure Name Priority Date/Time Associated Diagnosis Comments INTRAOP AIRWAY PLACEMENT Routine 10/26/2019 10:32 AM EDT documented in this encounter Results * INTRAOP AIRWAY PLACEMENT (10/26/2019 10:32 AM EDT) Narrative [facility] - 10/26/2019 10:32 AM EDT Dwaine Dykes CRNA ? 10/26/2019 10:42 AM Intraop Airway Placement: Date/Time: 10/26/2019 10:32 AM ??Induction type: ??IV ??Airway type: ??Nasal cannula salter us Michelle Tucker MD [place] ANESTHESIA Edited Result - Final [facility] [address] [place] [address] documented in this encounter Visit Diagnoses Not on filedocumented in this encounter Administered Medications Inactive Administered Medications - up to 1 most recent administrations Medication Order MAR Action Action Date Dose Rate Site ceFAZolin (ANCEF) IVPB 2 g 2 g, Intravenous, ONCE PREPROCEDURE, 1 dose, On Thu10/26/19 at 0645, Administer over 30 Minutes Given 10/26/2019 10:30 AM EDT 2 g lidocaine 1% 10 mg/mL (1 %) injection Intravenous, PRN (Anesthesia), Starting on Thu10/26/19 at 1039, Until Thu10/26/19 at 1107, Anesthesia Intra-op Given 10/26/2019 10:39 AM EDT 50 mg propofol (DIPRIVAN) infusion 10 mg/mL Intravenous, CONTINUOUS PRN, Starting on Thu10/26/19 at 1039, Until Thu10/26/19 at 1107, Anesthesia Intra-op Rate/Dose Change 10/26/2019 10:48 AM EDT 125 mcg/kg/min 62.9 mL/hr propofoL (DIPRIVAN) injection Intravenous, PRN (Anesthesia), Starting on Thu10/26/19 at 1039, Until Thu10/26/19 at 1107, Anesthesia Intra-op Given 10/26/2019 10:48 AM EDT 50 mg documented in this encounter Additional Health Concerns Assessment Noted Time A fall risk assessment has been complete d for the patient 12/06/2018 7:30 AM EDT documented as of this encounter Care Teams Standard Machine Stitcher Relationship Specialty Start Date End Date Mann Irene MD [address] [facility] [place] [address] PCP - General Internal Medicine 08/23/12 07/13/22 documented as of this encounter
--- OUTSIDE RECORDS SUMMARY | 2024-03-27 15:03 | XMS_ITS | Encounter Summary ---
Author Organization [place] [address] Care Team Providers Care Anatomy Professor Name Role Phone Mann Irene MD Primary Care Provider [phone] Reason for Visit * Reason Onset Date Comments Other 11/17/2019 Encounter Details Date Type Department Care Team (Late st Contact Info) Description 11/17/2019 Telephone [facility] [address] [address] Oralia Krueger MA Other Social History Tobacco Use Types Packs/Day [...] have Coronavirus / COVID-19? No / Unsure 11/16/2019 11:05 AM EDT documented as of this encounter [...] Tomi Slaughter CLAUDIA documented in this encounter Miscellaneous Notes * Telephone Encounter - Oralia Krueger MA - 11/17/2019 3:51 PM EDT Spoke with patient. Went over date and time of her procedure. Went Over all instructions. * Telephone Encounter - Oralia Krueger MA - 11/17/2019 8:58 AM EDT Left message on to call the office for date and time of her procedure. documented in this encounter Plan of Treatment Upcoming Encounters Date Type Department Care Team (Late st Contact Info) Description 05/16/2024 9:30 AM EST Office Visit [facility] [address] [place] [address] Gilda Francis PA [address] [place] [address] documented as of this encounter Visit Diagnoses Not on filedocumented in this encounter Additional Health Concerns Assessment Noted Time A fall risk assessment has been complete d for the patient 12/06/2018 7:30 AM EDT documented as of this encounter Care Teams Anatomy Professor Relationship Specialty Start Date End Date Mann Irene MD [address] [place], [place] [address] PCP - General Internal Medicine 08/23/12 07/13/22 documented as of this encounter
--- OUTSIDE RECORDS SUMMARY | 2024-03-27 15:03 | XMS_ITS | Encounter Summary ---
Author Organization [place] [address] Care Team Providers Care Resident Care Director Name Role Phone Mann Irene MD Primary Care Provider [phone] Reason for Visit * Reason Onset Date Comments ED Follow-Up Call 11/02/2019 ED Follow-Up Call 11/03/2019 Encounter Details Date Type Department Care Team (Late st Contact Info) Description 11/02/2019 Patient Outreach [facility] [address] [place] [address] Nerissa Vargas, VICE PRESIDENT PAYMENT Follow-Up Call; ED Follow-Up Call Social History Tobacco Use Types Packs/Day Years [...] in this encounter Progress Notes * Nerissa Vargas RN - 11/03/2019 10:22 AM EDT Attempted to reach patient regarding ED follow up. Patient didn't answer and voicemail was left perACF. Letter was sent via [employer]. * Nerissa Vargas RN - 11/02/2019 1:33 PM EDT Attempted to reach patient regarding ED follow up. Patient didn't answer and voicemail was left perACF. documented in this encounter Plan of Treatment Upcoming Encounters Date Type Department Care Team (Late st Contact Info) Description 05/16/2024 9:30 AM EST Office Visit [facility] [address] [place] [address] Gilda Francis PA [address] [place] [address] documented as of this encounter Visit Diagnoses Not on filedocumented in this encounter Additional Health Concerns Assessment Noted Time A fall risk assessment has been complete d for the patient 12/06/2018 7:30 AM EDT documented as of this encounter Care Teams Resident Care Director Relationship Specialty Start Date End Date Mann Irene MD [address] [place] [place] [phone] PCP - General Internal Medicine 08/23/12 07/13/22 documented as of this encounter
--- OUTSIDE RECORDS SUMMARY | 2024-03-27 15:03 | XMS_ITS | Encounter Summary ---
Author Organization [facility] [address] Care Team Providers Care Job Press Feeder Name Role Phone Mann Irene MD Primary Care Provider [phone] Encounter Details Date Type Department Care Team (Latest Contact Info) Description 10/20/2019 Travel Social History Tobacco Use Types Packs/Day [...] EST Office Visit [facility] [address] [place] [phone] Gilda Francis PA [address] [place] [address] documented as of this encounter Visit Diagnoses Not on filedocumented in this encounter Additional Health Concerns Assessment Noted Time A fall risk assessment has been complete d for the patient 12/06/2018 7:30 AM EDT documented as of this encounter Care Teams Job Press Feeder Relationship Specialty Start Date End Date Mann Irene MD [address]TRY [facility] [place] [address] PCP - General Internal Medicine 08/23/12 07/13/22 documented as of this encounter
--- OUTSIDE RECORDS SUMMARY | 2024-03-27 15:03 | XMS_ITS | Encounter Summary ---
Author Organization [place] [address] Care Team Providers Care Shield Cleaner Name Role Phone Mann Irene MD Primary Care Provider [phone] Reason for Visit * Auth/Cert/Inpt Specialty Diagnoses / Procedures Referred By Ramona mcdaniel Referred To Contact Diagnoses Urine culture positive Urine culture positive [R82.79] Procedures PA CYSTOSCOPY,INSERT URETERAL STENT PA FRAGMENT KIDNEY STONE/ ESWL cystoscopy right stent placement, right extracorporeal shock wave lithotripsy . Referral ID Status Reason Start Date Expiration Date Visits Re quested Visits Authorized [id number] 1 1 Encounter Details Date Type Department Care Team (Late st Contact Info) Description 11/28/2019 1:00 PM EDT - 11/28/2019 2:15 PM EDT Surgery FTT PERIOP [place] [place] [address] Amari Wheeler MD [address] [place] [address] CYSTOSCOPY STENT INSERTION OR EXCHANGE Surgery Details Date/Time Status Location OR Service Patient Class Case Class Case Type Trauma Case? 11/28/2019 1:00 PM Posted FTT MAIN OR FTT OR 07- Urology Same Day Surgery Elective Panel 1 Procedure LRB Anes Op Region Wound Class Comments CYSTOSCOPY STENT INSERTION OR EXCHANGE Right General Ureter Clean Contaminated cystoscopy right stent placement, right extracorporeal shock wave lithotripsy EXTRACORPOREAL SHOCK WAVE THERAPY LITHOTRIPSY WITH/WITHOUT CYSTOSCOPY/STENT PLACEMENT/REMOVAL Right General Flank Clean Surgeon Surgeon Role Service Panel Amari Wheeler MD Primary Urology 1 Special Needs ESBL positive in urine. Contact precautions documented in this encounter Social History Tobacco [...] Sign Reading Time Taken Comments Blood Pressure 128/75 11/28/2019 2:15 PM EDT Pulse 77 11/28/2019 2:15 PM EDT Temperature 36.6 ??C (97.8 ??F) 11/28/2019 1:44 PM ED T Respiratory Rate 21 11/28/2019 2:15 PM EDT Oxygen Saturation 95% 11/28/2019 2:15 PM EDT Inhaled Oxygen Concentration - - [...] 7:32 AM EDT Tomi Slaughter, CLAUDIA * Because of a physical, mental or emotional condition, does this person have difficulty doing errands alone such as visiting a doctor's office or shopping? Answer Date of Assessment Author No 12/06/2018 7:32 AM EDT Tomi Slaughter, CLAUDIA documented as of this encounter Mental Status * Because of a physical, mental or emotional condition, does this person have serious difficulty concentrating, remembering or making decisions? Answer Entry Date Author No 12/06/2018 7:32 AM EDTomi José, CLAUDIA documented in this encounter Discharge Instructions * Discharge Instructions* Raghav Nolan MD - 11/28/2019 3:19 PM EDT +++++++++++++++++++++++++++++++++++++++++++++++++++++++++++++++++++ [facility] Discharge Instructions - Following Anesthesia We [...] our office at . Get Well Soon! [place] [facility]est[facility] +++++++++++++++++++++++++++++++++++++++++++++++++++++++++++++++++++ Call for inability to urinate, [...] Bergeron NP - 11/28/2019 10:[address] [facility] History and Physical Name: Stella Hylton ADDRESS: [address] [place] [address] : 1945 AGE: 74 y.o. Assessment: Urine [...] of bladder; Surgeon: Amari Wheeler MD; Location: [facility] OR; Service: Urology ??? CATARACT REMOVAL Right 02/28/2019 RIGHT EYE CATARACT EXTRACTION WITH PHACOEMULSIFICATION AND INTRAOCULAR LENS; Surgeon: Conor Ramirez MD; Location: [facility]; Service: Ophthalmology ??? CATARACT REMOVAL Left 03/14/2019 LEFT EYE CATARACT EXTRACTION WITH PHACOEMULSIFICATION AND INTRAOCULAR LENS; Surgeon: Conor Ramirez MD; Location: [facility]; Service: Ophthalmology ??? COLONOSCOPY ??? HEMORRHOID SURGERY ??? HIP ARTHROPLASTY Right 02/16/2014 RIGHT TOTAL HIP REPLACEMENT; Surgeon: Bruce hO MD; Location: [facility]; Service: Orthopedics [...] nursing note reviewed. Exam conducted with a trench pipe layer present. Constitutional: General: She is not in [...] from the original note were not included. [facility] Urology ESWL, Stent placement Operative Report [...] or operation were discussed with the patient. long-term complications of ESWL including renal damage, pain and the currently discredited link the diabetes have been discussed. The patient concurred with the proposed plan, giving informed consent. The DVT Prophylaxis Protocol was observed but pharmacologic agents were contra-indicated by the performance of a procedure prone to heavy bleeding. The AUA Guidelines for Antibiotic Prophylaxis will be followed. [...] in the usual sterile fashion. The 21 Samoan cystoscope was inserted. Under direct vision, the [...] fluoroscopic guidance. A 26 cm x 6 nicaraguan JJ stent was then placed over the [...] I performed the procedure Amari Wheeler MD [facility] Urology [address] [place] [address] 11/28/2019 1:00 PM documented in this encounter [...] ??? Review instructions provided by your surgeon. Director Risk ??? On the day of surgery, it is important to have a Director Risk, someone who is 18 years or older, [...] or near the operative extremity. ??? Nail kinyarwanda must be removed from operative extremity. Personal [...] a Living Will and Durable Power of Avionics Systems Technician for Healthcare, please bring a copy. ??? [...] while you are here. COVID TEST AT [facility] [phone] ON 11/24/2019 AT 10:20 AM Same Day Surgery Unit - [facility] at [phone]; FTT: Main Entrance 1A, stop at director of front office and you will be sent to registration - [address] [place] [phone] documented in this encounter Plan of Treatment Upcoming Encounters Date Type Department Care Team (Late st Contact Info) Description 05/16/2024 9:30 AM EST Office Visit [facility] [address] [place] [address] Gilda Francis PA [address] [place] [address] documented as of this encounter [...] ??R82.79-Other abnormal findings on microbiological examination of ivxax-ENM-49-CM E78.00-Pure hypercholesterolemia, mzwqufmxsub-[id number]-CM COMPARISON: ??CT 10/31/2019 PROCEDURE COMMENTS: ??AP view(s) [...] HISTORY: R82.79-Other abnormal findings on microbiologicalexamination of [id number]-QKI-43-CM E78.00-Pure hypercholesterolemia, eiafrdibjrf-NUT-18-CM COMPARISON: CT 10/31/2019 PROCEDURE COMMENTS: AP view(s) [...] is no charge from [facility]. ??Refer to OpNote for Report. us Amari Wheeler MD IMG FLUOROSCOPY ORDERABLES Final Result PACS documented in [...] on Thu11/28/19 at 1033, Until Thu11/28/19 at 1954, To be given in SDS/Pre-op Holding Area, [...] at 1408, Until Thu11/28/19 at 1954, Nausea, For persistent nausea unrelieved by other [...] on Thu11/28/19 at 1033, Until Thu11/28/19 at 1954, To be given in SDS/Pre-op Holding Area, Pre-op (Holding/SDS Meds) 1127 (New Bag - Prov ider: Tiffanie Hartmann, UMA)1343 (Anesthesia Volume Adjustment - Provider: Rachael Milligan CRNA)1417 (New Bag - Provider: Heather Briscoe RN)1459 (Stopped - Provider: Candice Paulino RN) ondansetron (ZOFRAN) injection 4 mg(Linked Group 1) 4 mg, Intravenous, PRN, 1 dose, Starting on Thu11/28/19 at 1408, Until Thu11/28/19 at 195, Nausea, PACU ondansetron (ZOFRAN-ODT) disintegrating tablet 8 mg(Linked Group 1) 8 mg, Oral, PRN, 1 dose, Starting on Thu11/28/19 at 1408, Until Thu11/28/19 at 1953, Nausea, Dissolve in mouth, PACU oxyCODONE (ROXICODONE) immediate release tablet 5 mg 5 mg, Oral, EVERY 1 HOUR PRN, 2 doses, Starting on Thu11/28/19 at 1408, Until Thu11/28/19 at 195, Pain, When tolerating oral intake, PACU 1416 (Given - Provid er: Heather Briscoe RN) Linked Groups Order Group 1: ondansetron (ZOFRAN) injection 4 mgJump to med 4 mg, Intravenous, PRN, 1 dose, Starting on Thu11/28/19 at 1408, Until Thu11/28/19 at 195, Nausea, PACU Or ondansetron (ZOFRAN-ODT) disintegrating tablet 8 mgJump to med 8 mg, Oral, PRN, 1 dose, Starting on Thu11/28/19 at 1408, Until Thu11/28/19 at 1953, Nausea, Dissolve in mouth, PACU documented in [...] documented as of this encounter Care Teams Shield Cleaner Relationship Specialty Start Date End Date Mann Irene MD [address] [place] [id number] PCP - General Internal Medicine 08/23/12 07/13/22 documented as of this encounter
--- OUTSIDE RECORDS SUMMARY | 2024-03-27 15:03 | XMS_ITS | Encounter Summary ---
Author Organization [place] [address] Care Team Providers Care Coconut Jelly Roller Name Role Phone Mann Irene MD Primary Care Provider [phone] Reason for Referral * (Routine) - Closed Specialty Diagnoses / Procedures Referred By Ramona mcdaniel Referred To Contact Diagnoses Urine culture positive Procedures AMB URO SURGERY COMM ORDER Amari Wheeler MD Phone: tel: fax: Referral ID Status Reason Start Date Expiration Date Visits Re quested Visits Authorized [id number] Closed 11/16/2019 11/15/2020 1 1 Reason for Visit * Reason Comments Other discuss surgery. * Consultation (Routine) - Closed Specialty Diagnoses / Procedures Referred By Ramona mcdaniel Referred To Contact Urology Diagnoses Recurrent UTI (urinary tract infection) Mann [place] [address] [place] [address] Phone: tel: fax: Amari Wheeler MD Phone: tel: fax: Referral ID Status Reason Start Date Expiration Date Visits Re quested Visits Authorized [id number] Closed 07/04/2019 07/03/2020 99 99 Encounter Details Date Type Department Care Team (Late st Contact Info) Description 11/16/2019 11:40 AM EDT Office Visit [facility] [address] [place] [address] Amari Wheeler MD [address] [place] [address] Urine culture positive (Primary Dx) Social History Tobacco Use Types [...] Sign Reading Time Taken Comments Blood Pressure 118/68 11/16/2019 11:50 AM EDT Pulse - - Temperature 36.3 ??C (97.3 ??F) 11/16/2019 11:50 AM E DT Respiratory Rate - - Oxygen Saturation - - Inhaled Oxygen Concentration - - Weight 83.5 kg (184 lb) 11/16/2019 11:50 AM EDT Height 154.9 cm (5' 1 ) 11/16/2019 11:50 AM EDT Body Mass Index 34.77 11/16/2019 11:50 AM EDT documented in this encounter Functional [...] 12/06/2018 7:32 AM Tomi Huggins CLAUDIA * Because of [...] Progress Notes * Amari Wheeler MD - 11/16/2019 11:40 AM EDT Images from the original note were not included. [facility] Urology Established Patient E&M Stella Hylton 1945 Allergies Allergen Reactions ??? Celecoxib Rash Chief Complaint(s): No chief complaint on file. HPI: 74 y.o. female No specialty comments available. Reviewed and up to date Here to discuss next steps PVR by bladder scanner- NA No results found for this visit on 11/16/19. Past Medical History: Past Medical History: Diagnosis [...] of bladder; Surgeon: Amari Wheeler MD; Location: [facility] Service: Urology ??? CATARACT REMOVAL Right 02/28/2019 RIGHT EYE CATARACT EXTRACTION WITH PHACOEMULSIFICATION AND INTRAOCULAR LENS; Surgeon: Conor Ramirez MD; Location: [facility]; Service: Ophthalmology ??? CATARACT REMOVAL Left 03/14/2019 LEFT EYE CATARACT EXTRACTION WITH PHACOEMULSIFICATION AND INTRAOCULAR LENS; Surgeon: Conor Ramirez MD; Location: [facility]; Service: Ophthalmology ??? COLONOSCOPY ??? HEMORRHOID SURGERY ??? HIP ARTHROPLASTY Right 02/16/2014 RIGHT TOTAL HIP REPLACEMENT; Surgeon: Bruce Oh MD; Location: [facility]; Service: Orthopedics ??? HYSTERECTOMY complete ??? LUMBAR DISC SURGERY 11/03/2012 Surgeon: Elza Bautista MD; Location: [facility]; Service: ??? TOTAL KNEE ARTHROPLASTY Left 12/28/2018 left knee total replacement; Surgeon: Bruce Oh MD; Location: [facility]; Service: Orthopedics Current Outpatient Medications: [...] loratadine-pseudoephedrine (LORATADINE-PSEUDOEPHEDRINE) 10-240 mg Oral Tablet Sustained [id number] hr Take 1 Tab by mouth daily. [...] Brief PE: Vital Signs: LMP (LMP Unknown) No PE required Data: POCT Urinalysis: Labs: No results found for: WBC, HGB, HCT, MCV, PLT No results found for: CREATININE, BUN, NA, K, CL, CO2 No results found for: PSA No results found for this visit on 11/16/19. Imaging: Imaging studies (both written report and images on file) were reviewed in [employer], if pertinent see plan Existing Medical Record: Progress Notes, Consults and miscellaneous records were reviewed in [employer] and pertinent positives are: see synopsis Outside [...] AAA which shouldn't preclude patient from ESWL ?? 10-31-19 Telephone visit - discussed with patient negative result Had post op UTI, treated with ABX Return to clinic to discuss stone surgery ?? 11-16-19 Patient here to discuss surgery Given stone, will proceed with cysto, stent and right ESWL Amari Wheeler MD [facility] Urology [address] [place] [address] 11/16/2019 11:28 AM documented in this encounter Miscellaneous Notes * Addendum Note - Oralia Lizama MA - 11/16/2019 11:40 AM EDTAddended by: ORALIA LIZAMA on: 11/17/2019 03:50 PM Modules accepted: Orders documented in this encounter Plan of Treatment Upcoming Encounters Date Type Department Care Team (Late st Contact Info) Description 05/16/2024 9:30 AM EST Office Visit [facility] [address] [place] [address] Gilda Francis PA [address] [place] [address] Scheduled Orders Name Type Priority Associated Diagnoses Orde r Schedule SURGICAL/PROCEDURE CASE REQUEST Procedures Routine Urine culture positive Ordered: 11/17/2019 documented as of this encounter Procedures Procedure Name Priority Date/Time Associated Diagnosis Comments URINALYSIS Routine 11/16/2019 3:18 PM EDT Urine culture positive URINE CULTURE (NO STAIN) Routine 11/16/2019 3:18 PM EDT Urine culture positive SEP URINALYSIS POC Routine 11/16/2019 11 :51 AM EDT documented in this encounter Results * (ABNORMAL) URINE CULTURE (NO STAIN) (11/16/2019 3:18 PM EDT) Culture Positive Growth(A) 11/18/2019 2:55 PM EDT [facility] [employer] [employer] Culture >[id number] CFU/mL Citrobacter freundi complex SUSCEPTIB ILITY RESULT 11/18/2019 2:55 PM EDT [facility] [employer] [employer] Comment:Possible ESBL. Use o f nitrofurantoin for treatment of ESBL-producing organisms has been associated with increased risk of treatment failure. Urine URINE SPECIMEN COLLECTION, CLEAN CATCH / Unknown 11/16/2019 3:18 PM EDT 11/16/2019 3:18 PM EDT Narrative Organism Antibiotic Method Susceptibility Citrobacter freundii complex Amikacin SUSCEPTIBILITY RESULT <=16 ug/mL: Susceptible Citrobacter freundii complex Amoxicillin/Clavulanat e SUSCEPTIBILITY RESULT Citrobacter freundii complex Ampicillin SUSCEPTIBILITY RESULT Citrobacter freundii complex Ampicillin/Sulbactam SUSCEPTIBILITY RESULT Citrobacter freundii complex Aztreonam SUSCEPTIBILITY RESULT 16 ug/mL: Resistant Citrobacter freundii complex Cefazolin SUSCEPTIBILITY RESULT Citrobacter freundii complex Cefepime SUSCEPTIBILITY RESULT <=2 ug/mL: Resistant Citrobacter freundii complex Cefotaxime SUSCEPTIBILITY RESULT 16 ug/mL: Resistant Citrobacter freundii complex Cefoxitin SUSCEPTIBILITY RESULT Citrobacter freundii complex Ceftazidime SUSCEPTIBILITY RESULT >16 ug/mL: Resistant Citrobacter freundii complex Ceftriaxone SUSCEPTIBILITY RESULT 16 ug/mL: Resistant Citrobacter freundii complex Cefuroxime SUSCEPTIBILITY RESULT Citrobacter freundii complex Ciprofloxacin SUSCEPTIBILITY RESULT <=1 ug/mL: Susceptible Citrobacter freundii complex Ertapenem SUSCEPTIBILITY RESULT <=0.5 ug/mL: Susceptible Citrobacter freundii complex Gentamicin SUSCEPTIBILITY RESULT <=1 ug/mL: Susceptible Citrobacter freundii complex Imipenem SUSCEPTIBILITY RESULT <=0.5 ug/mL: Susceptible Citrobacter freundii complex Levofloxacin SUSCEPTIBILITY RESULT <=0.25 ug/mL: Susceptible Citrobacter freundii complex Meropenem SUSCEPTIBILITY RESULT <=1 ug/mL: Susceptible Citrobacter freundii complex Nitrofurantoin SUSCEPTIBILITY RESULT <=32 ug/mL: Susceptible Citrobacter freundii complex Piperacillin/Tazobacta m SUSCEPTIBILITY RESULT <=4 ug/mL: Susceptible Citrobacter freundii complex Tetracycline SUSCEPTIBILITY RESULT <=4 ug/mL: Susceptible Citrobacter freundii complex Tigecycline SUSCEPTIBILITY RESULT Citrobacter freundii complex Tobramycin SUSCEPTIBILITY RESULT <=1 ug/mL: Susceptible Citrobacter freundii complex Trimethoprim/Sulfameth oxazole SUSCEPTIBILITY RESULT <=2/38 ug/mL: Susceptible us Amari Wheeler MD MICROBIOLOGY - GENERAL ORDERABLE S Final Result [facility] , [place] [address] * (ABNORMAL) URINALYSIS (11/16/2019 3:18 PM EDT) UA Color Yellow 11/16/2019 8:44 PM EDT [facility] UA Appear Hazy(A) Clear 11/16/2019 8:44 PM EDT [facility] UA Glucose Negative Negative mg/dL 11/16/2019 8:44 PM EDT [facility] UA Ketones Negative Negative mg/dL 11/16/2019 8:44 PM EDT [facility] UA Blood Small(A) Negative 11/16/2019 8:44 PM EDT [facility] pH 6.0 5.0 - 8.0 pH 11/16/2019 8:44 PM EDT [facility] Protein 30(A) Negative mg/dL 11/16/2019 8:44 PM EDT [facility]A Urobilinogen Normal <=1 mg/dL 0 8:44 PM EDT [facility]A Bili Negative Negative 11/16/2019 8:44 PM EDT [facility] UA Nitrite Positive(A) Negative 11/16/2019 8:44 PM EDT [facility] Leuk Est Large(A) Negative 11/16/2019 8:44 PM EDT [facility] UA Spec Grav 1.016 1.001 - 1.035 no units 11/16/2019 8:44 PM EDT [facility] Comment:Reference range chong d for random specimens only. UA WBC 58(H) 0 - 4 /HPF 11/16/2019 8:44 PM EDT [facility] UA RBC 4(H) 0 - 3 /HPF 11/16/2019 8:44 PM EDT [facility] UA Squam Epi Few /LPF 11/16/2019 8:44 PM EDT [facility] UA Mucus Trace /LPF 11/16/2019 8:44 PM EDT [facility] UA Bacteria 1+(A) Negative /HPF 11/16/2019 8:44 PM EDT [facility] Urine 11/16/2019 3:18 PM EDT 11/16/2019 3:18 PM EDT Amari Wheeler MD URINE ORDERABLES Final Result [facility] [employer], [facility] [address] [facility] , [address] [place] [id number] * (ABNORMAL) SEP URINALYSIS POC (11/16/2019 11:51 AM EDT) UA Color POC Other 11/17/2019 10:00 AM EDT [facility] [place] UA Appear POC Cloudy(A) Clear 11/17/2019 10:00 AM EDT [facility] [place] UA Gluc POC Negative Negative mg/dL 11/17/2019 10:00 AM EDT [facility] [place] UA Bili POC Negative Negative 11/17/2019 10:00 AM EDT [facility] [place] UA Ketones POC Negative Negative mg/dL 11/17/2019 10:00 AM EDT [facility] [place] UA SG POC 1.025 1.001 - 1.035 11/17/2019 10:00 AM EDT [facility] [place] UA Blood POC Moderate(A) Negative 11/17/2019 10:00 AM EDT [facility] [place] UA pH POC 6.0 5.0 - 8.0 11/17/2019 10:00 AM EDT [facility] [place] UA Protein POC Trace(A) Negative mg/dL 11/17/2019 10:00 AM EDT [facility] [place] UA Urobilinogen POC 0.2 0.2, 1.0 11/17/2019 10:00 AM EDT [facility] [place] UA Nitrite POC Positive(A) Negative 0 10:00 AM EDT [facility] [place] UA Leuk Est POC Large(A) Negative 0 10:00 AM EDT [facility] [place] Urine URINE SPECIMEN COLLECTION / Unknown 11/16/2019 11:51 AM EDT 11/17/2019 10:00 AM EDT Amari Wheeler MD POINT OF CARE TEST ORDERABLES Fi nal Result [facility] [place] [address] [place] [address] documented in this encounter Visit Diagnoses Diagnosis Urine culture positive- Primary Other nonspecific finding on examination of urine documented in this encounter Orders Nursing Count Last Ordered Date First Orde red Date AMB URO SURGERY COMM ORDER 1 11/16/2019 documented in this encounter Additional Health Concerns Assessment Noted Time A fall risk assessment has been complete d for the patient 12/06/2018 7:30 AM EDT documented as of this encounter Care Teams Coconut Jelly Roller Relationship Specialty Start Date End Date Mann Irene MD [address] [place] [address] PCP - General Internal Medicine 08/23/12 07/13/22 documented as of this encounter
--- OUTSIDE RECORDS SUMMARY | 2024-03-27 15:03 | XMS_ITS | Encounter Summary ---
Author Organization [place] [address] Care Team Providers Care Textile Conversion Manager Name Role Phone Mann Irene MD Primary Care Provider [phone] Reason for Visit * Reason Comments Dizziness dizziness and elevat ed blood pressure. got nauseated with dizziness walking to ambulance. given zofran 4mg iv with relief. Encounter Details Date Type Department Care Team (Late st Contact Info) Description 10/30/2019 11:35 PM EDT - 10/31/2019 3:23 AM EDT [facility] [address] [place] [address] Erlin Arellano MD [address] [place] [address] Acute cystitis with hematuria (Primary Dx); Gross hematuria Discharge Disposition: Home or Self Care Social [...] Sign Reading Time Taken Comments Blood Pressure 150/64 10/31/2019 12:55 AM EDT Pulse 87 10/31/2019 2:40 AM EDT Temperature 36.4 ??C (97.5 ??F) 10/30/2019 11:40 PM E DT Respiratory Rate 17 10/31/2019 2:40 AM EDT Oxygen Saturation 98% 10/31/2019 2:40 AM EDT Inhaled Oxygen Concentration - - Weight 85.5 kg (188 lb 9.6 oz) 10/30/2019 11:40 PM EDT Height 154.9 cm (5' 1 ) 10/30/2019 11:40 PM EDT Body Mass Index 35.64 10/30/2019 11:40 PM EDT documented in this encounter Functional [...] cannot be sent through Care Everywhere. * Urinary Tract Infection Adult (Kazakh) documented in this encounter Medications at Time [...] 02/06/20 20 documented as of this encounter Ordered Prescriptions Prescription Sig Dispense Quantity Refills Last Filled Start Date End Date ondansetron (ZOFRAN-ODT) 4 mg Oral Tablet, Rapid Dissolve Take 1 Tab by mouth every 6 hours as needed for Nausea for up to 30 days. 10 Tab 10/31/2019 11/22/2019 cephALEXin (KEFLEX) 500 mg Oral Capsule Take 1 Cap by mouth 4 times daily for 7 days. 28 Cap 10/31/2019 11/07/2019 documented in this encounter Discharge Disposition Disposition Code Departure Means Destination Home or Self [facility] documented in this encounter ED Notes * Hannah Adkins RN - 10/30/2019 11:35 PM EDT Bed: [facility] Expected date: Expected time: Means of arrival: Comments: joey * Erlin Arellano MD - 10/30/2019 11:35 PM EDT Chief Complaint Patient presents with ??? Dizziness dizziness and elevated blood pressure. got nauseated with dizziness walking to ambulance. given zofran 4mg iv with relief. 74-year-old female presents to the emergency department due to lightheadedness as well as nausea and vomiting. She's had these symptoms off and on since Thursday. She had a bladder biopsy performed on Thursday and is awaiting results. She came to the hospital tonight because the symptoms seemed to get worse. She checked her blood pressures as her systolic blood pressure was greater than 200 on several checks. She says her blood pressure is usually on the low end of normal saline this elevation is abnormal. She has not had any chest pain or shortness of breath or headache. She did have some mild pain in the left flank earlier today but none at this time. She has had gross hematuria tonightas well Patient History Allergies Allergen Reactions ??? Celecoxib Rash Home Medications: Prior to Admission medications Medication Sig Start Date End Date Taking? Authorizing Provider aspirin 81 mg Oral Tablet, Delayed Release (E.C.) Take 1 Tab by mouth every morning. Yes Provider, Historical atorvastatin (LIPITOR) 10 mg Oral Tablet TAKE 1 TABLET EVERY DAY 04/05/19 Yes Mann Irene MD ergocalciferol (VITAMIN D) 50,000 unit Oral Capsule Take 1 Cap by mouth once a week. 02/11/19 Yes Mann Irene MD diclofenac (VOLTAREN) 75 mg Oral Tablet, Delayed Release (E.C.) TAKE 1 TAB BY MOUTH 2 TIMES DAILY (WITH MEALS) 08/16/19 Mann Irene MD difluprednate (DUREZOL) 0.05 % Opht Drops Place 1 Drop into the right eye 2 times daily. Can substitute Inveltys or Prednisolone Patient not taking: Reported on 10/20/2019 02/28/19 Conor Ramirez MD loratadine-pseudoephedrine (LORATADINE-PSEUDOEPHEDRINE) 10-240 mg Oral Tablet Sustained Release 24 hr Take 1 Tab by mouth daily. 08/09/19 Mann Irene MD moxifloxacin (VIGAMOX) 0.5 % Opht Drops Place 1 Drop into the right eye 2 times daily. Patient not taking: Reported on 10/20/2019 02/28/19 Conor Ramirez MD oxyCODONE (ROXICODONE) 5 mg Oral Tablet Take 1-2 Tabs by mouth every 8 hours as needed for Major Surgery/Trauma (G89.18) (moderate/severe 6-10 pain). Patient not taking: Reported on 03/14/2019 12/30/18 Blaire Potter, KELSIE tiZANidine (ZANAFLEX) 2 mg Oral Tablet Take 2 Tabs by mouth every 8 hours as needed for Other (muscle relaxant). Patient not taking: Reported on 10/20/2019 12/30/18 Blaire Potter PA-C vit C/E/Zn/coppr/lutein/zeaxan (PRESERVISION AREDS-2 ORAL) Take by mouth 2 times daily. Provider, Historical Past Medical History: Past Medical History: Diagnosis Date ??? Arthritis generalized ??? Does use hearing aid bilateral ??? Hyperlipidemia ??? Kidney stone hx of ??? Motion sickness seasick ??? Osteopenia ??? Urinary tract infection frequent UTI's Social History: reports that she has quit smoking. Her smoking use included cigarettes. She has a 2.50 pack-year smoking history. She has never used smokeless tobacco. She reports that she does not drink alcohol or use drugs. E-Cigarettes (such as Vapes or [...] of bladder; Surgeon: Amari Wheeler MD; Location: [facility] MAIN OR; Service: Urology ??? CATARACT REMOVAL Right 02/28/2019 RIGHT EYE CATARACT EXTRACTION WITH PHACOEMULSIFICATION AND INTRAOCULAR LENS; Surgeon: Conor Ramirez MD; Location: [facility]; Service: Ophthalmology ??? CATARACT REMOVAL Left 03/14/2019 LEFT EYE CATARACT EXTRACTION WITH PHACOEMULSIFICATION AND INTRAOCULAR LENS; Surgeon: Conor Ramirez MD; Location: [facility]; Service: Ophthalmology ??? COLONOSCOPY ??? HEMORRHOID SURGERY ??? HIP ARTHROPLASTY Right 02/16/2014 RIGHT TOTAL HIP REPLACEMENT; Surgeon: Bruce Oh MD; Location: [facility] MAIN OR; Service: Orthopedics ??? HYSTERECTOMY complete ??? LUMBAR DISC SURGERY 11/03/2012 Surgeon: Elza Bautista MD; Location: [facility] MAIN OR; Service: ??? TOTAL KNEE ARTHROPLASTY Left 12/28/2018 left knee total replacement; Surgeon: Bruce Oh MD; Location[facility]; Service: Orthopedics Review of Systems Review of Systems Constitutional: Negative for chills and fever. HENT: Negative. Eyes: Negative. Respiratory: Negative for cough and shortness of breath. Cardiovascular: Negative for chest pain, palpitations and leg swelling. Gastrointestinal: Positive for nausea. Negative for abdominal pain, diarrhea and vomiting. Genitourinary: Positive for hematuria. Negative for dysuria and frequency. Musculoskeletal: Negative. Skin: Negative for rash. Neurological: Positive for light-headedness. Psychiatric/Behavioral: Negative. All other systems reviewed and are negative. Physical Exam Blood pressure (!) 189/92, pulse 75, temperature 97.5 ??F (36.4 ??C), temperature source Oral, resp. rate 18, height 5' 1 (1.549 m), weight 188 lb 9.6 oz (85.5 kg), SpO2 98 %, not currently . Physical Exam Vitals signs and nursing note reviewed. Constitutional: Appearance: Normal appearance. She is not ill-appearing or toxic-appearing. HENT: Head: Normocephalic and atraumatic. Eyes: Extraocular Movements: Extraocular movements intact. Conjunctiva/sclera: Conjunctivae normal. Neck: Musculoskeletal: Normal range of motion. Cardiovascular: Rate and Rhythm: Normal rate and regular rhythm. Pulmonary: Effort: Pulmonary effort is normal. Breath sounds: Normal breath sounds. Abdominal: General: There is no distension. Palpations: Abdomen is soft. Tenderness: There is no abdominal tenderness. Musculoskeletal: Normal range of motion. Skin: General: Skin is warm and dry. Findings: No rash. Neurological: General: No focal deficit present. Mental Status: She is alert. Psychiatric: Mood and Affect: Mood normal. Procedures Radiology/EKG/Labs: Results for orders placed or performed during the hospital encounter of 10/30/19 CT ABDOMEN PELVIS WO ORAL OR IV CONTRAST Narrative CT ABDOMEN AND PELVIS WITHOUT IV OR ORAL CONTRAST, 10/31/2019 1:20 AM CLINICAL HISTORY: -Flank pain, hematuria COMPARISON: 07/22/2019 PROCEDURE COMMENTS: Noncontrast multidetector CT examination of the abdomen and pelvis without IV or oral contrast per protocol. Multiplanar reconstructions. Automated exposure control for dose reduction was used. CTDIvol: 11.7 mGy. DLP: 559 mGy-cm. FINDINGS: LOWER THORAX: Lung bases [...] Unchanged 3 cm infrarenal abdominal aortic aneurysm. Impression No acute process within abdomen and pelvis. Stable right renal calcification. Stable abdominal aortic aneurysm. - TROPONIN-T HIGH SENSITIVITY BASELINE W/ REFLEX Result Value Ref Range rx-fOoaifhsj-O 16 (H) <14 ng/L Narrative Ingestion of lakshmi doses of biotin (>5 mg/day) taken within 8 hours of drawing blood sample can interfere with this immunoassay test. CBC Result Value Ref Range WBC 11.2 (H) 4.0 - 11.0 x10(3)/mcL RBC 4.78 3.80 - 5.10 x10(6)/mcL Hgb 13.9 12.0 - 15.6 g/dL Hct 41.9 35.7 - 45.9 % MCV 87.6 82.5 - 99.8 fL MCH 29.0 27.0 - 34.3 pg MCHC 33.1 32.1 - 35.3 g/dL RDW 14.3 11.5 - 15.0 % Platelet 292 144 - 423 x10(3)/mcL MPV 7.6 6.8 - 10.8 fL BASIC METABOLIC PANEL Result Value Ref Range Sodium 140 136 - 145 mmol/L Potassium 4.1 3.5 - 5.0 mmol/L Chloride 106 98 - 107 mmol/L Total CO2 25 22 - 29 mmol/L Anion Gap 9 7 - 16 mmol/L Calcium 9.2 8.8 - 10.4 mg/dL Glucose Lvl 131 (H) 82 - 100 mg/dL BUN 20 8 - 23 mg/dL Creatinine 0.69 0.51 - 1.30 mg/dL GFR Afr Am 101 >=60 mL/min/1.73 m2 GFR Non Afr Am 87 >=60 mL/min/1.73 m2 URINALYSIS Result Value Ref Range UA Color Brown UA Appear Turbid (A) Clear UA Glucose Negative Negative mg/dL UA Ketones Trace (5 mg/dL) (A) Negative mg/dL UA Blood Large (A) Negative UA pH 6.5 5.0 - 8.0 pH UA Protein >=300 (A) Negative mg/dL UA Urobilinogen 2.0 (A) <=1 mg/dL UA Bili Positive (A) Negative UA Nitrite Positive (A) Negative UA Leuk Est Moderate (A) Negative UA Spec Grav >=1.030 1.001 - 1.035 no units UA WBC 75 (H) 0 - 4 /HPF UA RBC >100 (H) 0 - 3 /HPF UA Squam Epi Rare /LPF UA Mucus 2+ /LPF UA Bacteria 2+ (A) Negative /HPF TROPONIN-T HIGH SENSITIVITY 2HR Result Value Ref Range lz-nWndbgueb-E 2HR 16 (H) <14 ng/L hs-cTnT 2Hr Delta from Baseline 0 <4 ng/L Narrative Ingestion of lakshmi doses of biotin (>5 mg/day) taken within 8 hours of drawing blood sample can interfere with this immunoassay test. CREATINE KINASE Result Value Ref Range CK 79 26 - 192 U/L ED Course: Appropriate laboratory and radiology studies reviewed Patient was hypertensive on arrival but blood pressure has improved greatly in the ED. She does nothave any evidence of end organ damage and lab work. Patient does have a nitrite positive urinary tract infection along with gross hematuria. She is voiding without difficulty and without signs of retention. Suspect the blood is related to her cystitisand recent bladder biopsy. She does not have any signs of sepsis. Patient given a dose of IV Rocephin and discharged with Keflex. ED Clinical Impression: Acute cystitis with hematuria (primary encounter diagnosis) Gross hematuria Critical Care time Condition at Discharge/Transfer from Department: Stable This chart was completed using voice recognition technology and may contain unintended errors Erlin Arellano MD 10/31/19 [id number] documented in this encounter Plan of Treatment Upcoming Encounters Date Type Department Care Team (Late st Contact Info) Description 05/16/2024 9:30 AM EST Office Visit [facility] [address] [place] [address] Gilda Francis PA [address] [place] [address] documented as of this encounter Procedures Procedure Name Priority Date/Time Associated Diagnosis Comments SCANNED EKG 10/31/2019 5:00 PM EDT TROPONIN-T HIGH SENSITIVITY 2HR Timed 10/31/2019 2:[address] ABDOMEN PELVIS WO ORAL OR IV CONTRAST STAT 10/31/2019 1:20 AM EDT TROPONIN-T HIGH SENSITIVITY BASELINE W/ REFLEX STAT 10/30/2019 11:58 PM EDT EXTRA MORENO URINE CX STAT 10/30/2019 1 1:58 PM EDT CBC STAT 10/30/2019 11:58 PM EDT URINALYSIS STAT 10/30/2019 11:58 PM EDT URINE CULTURE (NO STAIN) Add-On 10/30/2019 11:58 PM EDT CREATINE KINASE Add-On 10/30/2019 11:58 PM EDT BASIC METABOLIC PANEL STAT 10/30/2019 11:58 PM EDT EK EKG 12 LEAD STAT 10/30/2019 11:51 PM EDT documented in this encounter Results * SCANNED EKG (10/31/2019 5:00 PM EDT) Anatomical Region Laterality Modality Other 10/31/2019 5:00 PM EDT us Unknown Unknown IMG ECG ORDERABLES Final Result * (ABNORMAL) TROPONIN-T HIGH SENSITIVITY 2HR (10/31/2019 2:01 AM EDT) es-kWedfolbl-L 2HR 16(H) <14 ng/L 10/31/2019 2:25 AM EDT [facility] Comment:See the website [employer] App[employer] for rule out [place] care pathway, conditions other than AMI that can cause elevated hs cTnT, and comparison of values from the 4th and 5th generation Rosie tests. https://[email or web address]/clinical-answers/[email or web address]/cpm-[email or web address] 18358 hs-cTnT 2Hr Delta from Baseline 0 <4 ng/L 10/31/2019 2:25 AM EDT [facility] Blood VENOUS BLOOD / Unknown Venipuncture / Unknown 10/31/2019 2:01 AM EDT 10/31/2019 2:03 AM EDT Narrative [facility] - 10/31/2019 2:25 AM EDT Ingestion of lakshmi doses of biotin (>5 mg/day) taken within 8 hours of drawing blood sample can interfere with this immunoassay test. us Erlin Arellano MD CHEMISTRY ORDERABLES Final Result [facility] [address] [place] [address] * CT ABDOMEN PELVIS WO ORAL OR [...] renal calcification. Stable abdominal aortic aneurysm. - Erlin Arellano MD IM CT ORDERABLES Fi nal Result * (ABNORMAL) URINE CULTURE (NO STAIN) (10/30/2019 11:58 PM EDT) Culture Positive Growth(A) 11/03/2019 10:03 AM EDT [facility] [employer], [facility] Culture >[id number] CFU/mL Citrobacter freundi complex SUSCEPTIBI LITY RESULT 11/03/2019 10:03 AM EDT [facility]REFERRED [facility] [employer] Urine URINE SPECIMEN COLLECTION, CLEAN CATCH / Unknown 10/30/2019 11:58 PM EDT 10/31/2019 12:03 AM EDT Narrative Organism Antibiotic Method Susceptibility Citrobacter freundii complex Amikacin SUSCEPTIBILITY RESULT <=16 ug/mL: Susceptible Citrobacter freundii complex Amoxicillin/Clavulanat e SUSCEPTIBILITY RESULT Citrobacter freundii complex Ampicillin SUSCEPTIBILITY RESULT Citrobacter freundii complex Ampicillin/Sulbactam SUSCEPTIBILITY RESULT Citrobacter freundii complex Aztreonam SUSCEPTIBILITY RESULT <=4 ug/mL: Susceptible Citrobacter freundii complex Cefazolin SUSCEPTIBILITY RESULT Citrobacter freundii complex Cefepime SUSCEPTIBILITY RESULT Citrobacter freundii complex Cefotaxime SUSCEPTIBILITY RESULT <=2 ug/mL: Susceptible Citrobacter freundii complex Cefoxitin SUSCEPTIBILITY RESULT Citrobacter freundii complex Ceftazidime SUSCEPTIBILITY RESULT <=1 ug/mL: Susceptible Citrobacter freundii complex Ceftriaxone SUSCEPTIBILITY RESULT <=1 ug/mL: Susceptible Citrobacter freundii complex Cefuroxime SUSCEPTIBILITY RESULT Citrobacter [...] oxazole SUSCEPTIBILITY RESULT <=2/38 ug/mL: Susceptible us Erlin Arellano MD MICROBIOLOGY - GENER AL ORDERABLES Final Result [employer] [address] [facility] , [place] [address] * CREATINE KINASE (10/30/2019 11:58 PM EDT) [facility] CK 79 26 - 192 U/L 10/31/2019 1:19 AM EDT [facility] Blood VENOUS BLOOD / Unknown Venipuncture / Unknown 10/30/2019 11:58 PM EDT 10/31/2019 12:03 AM EDT Erlin Arellano MD CHEMISTRY ORDERABLES Final Result Performing Organization Address [facility] Co de Phone Number [facility] [address] [place] [address] * EXTRA MORENO URINE CX (10/30/2019 11:58 PM EDT) Urine URINE SPECIMEN COLLECTION, CLEAN CATCH / Unknown 10/30/2019 11:58 PM EDT 10/31/2019 12:03 AM EDT Erlin Arellano MD MICROBIOLOGY - GENER AL ORDERABLES Final Result Performing Organization Address [facility] de Phone Number [facility] [address] [place] [address] * (ABNORMAL) URINALYSIS (10/30/2019 11:58 PM EDT) [facility] UA Color Brown 10/31/2019 12:19 AM EDT [facility] UA Appear Turbid(A) Clear 10/31/2019 12:19 AM EDT [facility] UA Glucose Negative Negative mg/dL 10/31/2019 12:19 AM EDT [facility] UA Ketones Trace (5 mg/dL)(A) Negative mg/dL 10/31/2019 12:19 AM EDT [facility] UA Blood Large(A) Negative 10/31/2019 12:19 AM EDT [facility] UA pH 6.5 5.0 - 8.0 pH 10/31/2019 12:19 AM EDT [facility] UA Protein >=300(A) Negative mg/dL 10/31/2019 12:19 AM EDT [facility] UA Urobilinogen 2.0(A) <=1 mg/dL 0 12:19 AM EDT [facility] UA Bili Positive(A) Negative 10/31/2019 12:19 AM EDT [facility] Comment:Positive-Unable to r ule out interfering substances that yield false- positive results. Confirmatory testing is not available. UA Nitrite Positive(A) Negative 10/31/2019 12:19 AM EDT [facility] UA Leuk Est Moderate(A) Negative 10/31/2019 12:19 AM EDT [facility] UA Spec Grav >=1.030 1.001 - 1.035 no units 10/31/2019 12:19 AM EDT [facility] Comment:Reference range chong d for random specimens only. UA WBC 75(H) 0 - 4 /HPF 10/31/2019 12:19 AM EDT [facility] UA RBC >100(H) 0 - 3 /HPF 10/31/2019 12:19 AM EDT [facility] UA Squam Epi Rare /LPF 10/31/2019 12:19 AM EDT [facility] UA Mucus 2+ /LPF 10/31/2019 12:19 AM EDT [facility] UA Bacteria 2+(A) Negative /HPF 10/31/2019 12:19 AM EDT [facility] Urine URINE SPECIMEN COLLECTION, CLEAN CATCH / Unknown 10/30/2019 11:58 PM EDT 10/31/2019 12:03 AM EDT us Erlin Arellano MD URINE ORDERABLES Fin al Result [facility] [address] [place] [address] * (ABNORMAL) BASIC METABOLIC PANEL (10/30/2019 11:58 PM EDT) Sodium 140 136 - 145 mmol/L 10/31/2019 12:29 AM EDT [facility] Potassium 4.1 3.5 - 5.0 mmol/L 10/31/2019 12:29 AM EDT [facility] Chloride 106 98 - 107 mmol/L 10/31/2019 12:29 AM EDT [facility] Total CO2 25 22 - 29 mmol/L 10/31/2019 12:29 AM EDT [facility] Anion Gap 9 7 - 16 mmol/L 10/31/2019 12:29 AM EDT [facility] Calcium 9.2 8.8 - 10.4 mg/dL 10/31/2019 12:29 AM EDT [facility] Glucose Lvl 131(H) 82 - 100 mg/dL 10/31/2019 12:29 AM EDT [facility] BUN 20 8 - 23 mg/dL 10/31/2019 12:29 AM T [facility] Creatinine 0.69 0.51 - 1.30 mg/dL 10/31/2019 12:29 AM EDT [facility] GFR Afr Am 101 >=60 mL/min/1.7 3 m2 10/31/2019 12:29 AM EDT [facility] GFR Non Afr Am 87 >=60 mL/min/1.7 3 m2 10/31/2019 12:29 AM EDT [facility] Comment: This estimated GFR was [...] PM EDT 10/31/2019 12:03 AM EDT us Erlin Arellano MD CHEMISTRY ORDERABLES Final Result [facility] [address] [facility] [place] [address] * (ABNORMAL) CBC (10/30/2019 11:58 PM EDT) WBC 11.2(H) 4.0 - 11.0 x10(3)/mcL 10/31/2019 12:05 AM EDT [facility] RBC 4.78 3.80 - 5.10 x10(6)/mcL 10/31/2019 12:05 AM EDT [facility] Hgb 13.9 12.0 - 15.6 g/dL 10/31/2019 12:05 AM EDT [facility] Hct 41.9 35.7 - 45.9 % 10/31/2019 12:05 AM EDT [facility] MCV 87.6 82.5 - 99.8 fL 10/31/2019 12:05 AM EDT [facility] MCH 29.0 27.0 - 34.3 pg 10/31/2019 12:05 AM EDT [facility] MCHC 33.1 32.1 - 35.3 g/dL 10/31/2019 12:05 AM EDT [facility] RDW 14.3 11.5 - 15.0 % 10/31/2019 12:05 AM EDT [facility] Platelet 292 144 - 423 x10(3)/mcL 10/31/2019 12:05 AM EDT [facility] MPV 7.6 6.8 - 10.8 fL 10/31/2019 12:05 AM EDT [facility] Blood VENOUS BLOOD / Unknown Venipuncture / Unknown 10/30/2019 11:58 PM EDT 10/31/2019 12:03 AM EDT us Erlin Arellano MD HEMATOLOGY ORDERABLE S Final Result [facility] [address] [place] [address] * (ABNORMAL) TROPONIN-T HIGH SENSITIVITY BASELINE W/ REFLEX (10/30/2019 11:58 PM EDT) Pathologist [facility] yw-xBmrahchn-E 16(H) <14 ng/L 10/31/2019 12:26 AM EDT [facility] Comment:See the website tsyha[employer] for rule out [place] care pathway, conditions other than AMI that can cause elevated hs cTnT, and comparison of values from the 4th and 5th generation Rosie tests. https://[email or web address]/clinical-answers/[email or web address]/[email or web address] [email or web address] Blood VENOUS BLOOD / Unknown Venipuncture / Unknown 10/30/2019 11:58 PM EDT 10/31/2019 12:03 AM EDT Narrative [facility] - 10/31/2019 12:26 AM EDT Ingestion of lakshmi doses of biotin (>5 mg/day) taken within 8 hours of drawing blood sample can interfere with this immunoassay test. us Erlin Arellano MD CHEMISTRY ORDERABLES Final Result Performing Organization Address City/State/[facility] Co de Phone Number [facility] [address] [place] [address] * EK EKG 12 LEAD (10/30/2019 11:51 PM EDT) Anatomical Region Laterality Modality Electrocardiogra phy 10/31/2019 12:0 0 AM EDT Impressions 10/31/2019 8:37 AM EDT ? [facility] ? Test Date: ?2019-10-31 Pat Name: ? STELLA GOLDSTEIN ?Department: ?? DEPID ? Room: ? AC09 Gender: ? Female ? Rn Documentation: ?? : ?1945 ? Requested By: ERLIN ARELLANO JAMES Order Number: [id number] ?Reading MD: ?? Conrado Spivey MD ? Measurements Intervals ?[place] ? Rate: ? 69 ? P: ?53 MA: ? 158 ?QRS: ?61 QRSD: ? 97 ? T: ?41 QT: ? 383 ? QTc: ?411 ? Interpretive Statements SINUS RHYTHM WITH SINUS ARRHYTHMIA No acute ST-T wave abnormality No previous EKG for comparison. Correlate clinically. Electronically Signed On 10-31-2019 8:37:18 EDT by Conrado Spivey MD Narrative Procedure Note Conrado Spivey MD - 10/31/[address] [facility] Test Date: 2019-10-31 Pat Name: STELLA GOLDSTEIN Department: [facility] Room: [facility] Gender: Female Rn Documentation: : 1945 Requested By: ERLIN FAIRBANKS Order Number: [id number] Reading MD: Conrado Spivey MD Measurements Intervals [place] Rate: 69 P: 53 MA: 158 QRS: 61 QRSD: 97 T: 41 QT: 383 QTc: 411 Interpretive Statements SINUS RHYTHM WITH SINUS ARRHYTHMIA No acute ST-T wave abnormality No previous EKG for comparison. Correlate clinically. Electronically Signed On 10-31-2019 8:37:18 EDT by Conrado Spivey MD us Erlin Arellano MD IMG ECG ORDERABLES F inal Result documented in this encounter Visit Diagnoses Diagnosis Acute cystitis with hematuria- Primary Acute cystitis Gross hematuria documented in this encounter Administered Medications Inactive Administered Medications - up to 1 most recent administrations Medication Order MAR Action Action Date Dose Rate Site cefTRIAXone in dextrose (ROCEPHIN) 1 gram/50 mL IVPB 1 g 1 g, Intravenous, ONCE, 1 dose, On Thu10/31/19 at 0030, Administer over 30 Minutes, IV Started 10/31/2019 2:01 AM EDT 1 g 100 mL/hr sodium chloride 0.9% IV line flush 50 mL 50 mL, Intravenous, at 999 mL/hr, PRN, Starting on Thu10/31/19 at 0158, Until Thu10/31/19 at 0723, Line Care, Flush with 50 mL after IVPB to insure complete administration of the dose. May use the saline infusion to back flush IVPB tubing as needed., Use this order to document priming and flushing IV line after medication administration. IV Started 10/31/2019 1:59 AM EDT 50 mL 999 mL/hr sodium chloride 0.9% syringe 5-10 mL 5-10 mL, Intravenous, PRN, Starting on Thu10/31/19 at 0158, Until Thu10/31/19 at 0723, Line Care, Flush with 5 mL saline pre/post IVP, and 5 mL prior to IVPB or blood product administration. Protocol for PERIPHERAL IV saline lock maintenance, flush with 3-5 mL saline syringe every 8 hours., Flush every shift or after IV medication documented in this encounter Active and Recently Administered Medications Times are shown in EDT. Scheduled Medication Order 10/29/2019 10/30/2019 10/31/2019 cefTRIAXone in dextrose (ROCEPHIN) 1 gram/50 mL IVPB 1 g (COMPLETED) 1 g, Intravenous, ONCE, 1 dose, On Thu10/31/19 at 0030, Administer over 30 Minutes, 0201 (IV Started - P rovider: Lou Escoto RN)0237 (Stopped - Provider: Laurie Coyle RN) PRN Medication Order 10/29/2019 10/30/2019 10/31/2019 sodium chloride 0.9% IV line flush 50 mL 50 mL, Intravenous, at 999 mL/hr, PRN, Starting on Thu10/31/19 at 0158, Until Thu10/31/19 at 0723, Line Care, Flush with 50 mL after IVPB to insure complete administration of the dose. May use the saline infusion to back flush IVPB tubing as needed., Use this order to document priming and flushing IV line after medication administration. 0159 (IV Started - P rovider: Lou Escoto RN)0238 (Stopped - Provider: Laurie Coyle, UMA) sodium chloride 0.9% syringe 5-10 mL 5-10 mL, Intravenous, PRN, Starting on Thu10/31/19 at 0158, Until Thu10/31/19 at 0723, Line Care, Flush with 5 mL saline pre/post IVP, and 5 mL prior to IVPB or blood product administration. Protocol for PERIPHERAL IV saline lock maintenance, flush with 3-5 mL saline syringe every 8 hours., Flush every shift or after IV medication documented in this encounter Orders Medications Ordered That Parish ht Not Have Been Administered Count Last Ordered Date First Ordered Date sodium chloride 0.9% syringe 5-10 mL 1 10/10 documented in this encounter Additional Health Concerns Assessment Noted Time A fall risk assessment has been complete d for the patient 12/06/2018 7:30 AM EDT documented as of this encounter Care Teams Textile Conversion Manager Relationship Specialty Start Date End Date Mann Irene MD [address] [place] [phone] PCP - General Internal Medicine 08/23/12 07/13/22 documented as of this encounter
--- OUTSIDE RECORDS SUMMARY | 2024-03-27 15:03 | XMS_ITS | Encounter Summary ---
Author Organization [place] [address] Care Team Providers Care Postdoctoral Research Associate Name Role Phone Mann Irene MD Primary Care Provider [phone] Encounter Details Date Type Department Care Team (Late st Contact Info) Description 11/21/2019 Orders Only [facility] [address] [place] [address] Cheyanne Forman, JACLYN Social History Tobacco Use Types Packs/Day Years [...] No 12/06/2018 7:32 AM EDT Tomi Slaughter ASHLEY knutsonElver * Does this person have serious difficulty walking or climbing stairs? Answer Date of Assessment Author No 12/06/2018 7:32 AM EDT Tomi Slaughter ASHLEY knutsonElver * Does this person have difficulty dressing or bathing? Answer Date of Assessment Author No 12/06/2018 7:32 AM EDT Tomi Slaughter ASHLEY knutsonElver * Because of a physical, mental or emotional condition, does this person have difficulty doing errands alone such as visiting a doctor's office or shopping? Answer Date of Assessment Author No 12/06/2018 7:32 AM EDT Tomi Slaughter ASHLEY knutsonElver documented as of this encounter Mental Status * Because of a physical, mental or emotional condition, does this person have serious difficulty concentrating, remembering or making decisions? Answer Entry Date Author No 12/06/2018 7:32 AM EDT Sukhjinder Tomi ASHLEY knutsonElver documented in this encounter Ordered Prescriptions Prescription Sig Dispense Quantity Refills Last Filled Start Date End Date sulfamethoxazole-tr imethoprim (BACTRIM;SEPTRA) 400-80 mg Oral Tablet Take 1 Tab by mouth 2 times daily for 10 days. 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
--- OUTSIDE RECORDS SUMMARY | 2024-03-27 15:03 | XMS_ITS | Encounter Summary ---
Author Organization [place] [address] Care Team Providers Care Transport Coordinator Name Role Phone Mann Irene MD Primary Care Provider [phone] Reason for Visit * Auth/Cert/Inpt Specialty Diagnoses / Procedures Referred By Ramona [email or web address] Referred To Contact Diagnoses Hematuria, unspecified type Hematuria, unspecified type [R31.9] Procedures CT CYSTOURETHROSCOPY,BIOPSIES cystoscopy bladder biopsy Referral ID Status Reason Start Date Expiration Date Visits Re quested Visits Authorized [id number] 1 1 Encounter Details Date Type Department Care Team (Late st Contact Info) Description 10/26/2019 10:30 AM EDT - 10/26/2019 11:30 AM EDT [place] [address] Amari Wheeler MD [address] [place] [address] CYSTOSCOPY TRANSURETHRAL RESECTION BLADDER TUMOR - FULGURATION/EVACUATION OF CLOT Surgery Details Date/Time Status Location OR Service Patient Class Case Class Case Type Trauma Case? 10/26/2019 10:30 AM Posted [facility] _Cysto Urology Same Day Surgery Emergent Panel 1 Procedure LRB Anes Op Region Wound Class Comments CYSTOSCOPY TRANSURETHRAL RESECTION BLADDER TUMOR - FULGURATION/EVACUATI ON OF CLOT N/A Monitored Anesthesia Care Clean Contaminated cystoscopy, bladder biopsy and fulguration of lesions of bladder Surgeon Surgeon Role Service Panel Amari Wheeler MD Primary Urology 1 documented in this encounter Social History Tobacco [...] Sign Reading Time Taken Comments Blood Pressure 104/54 10/26/2019 11:30 AM EDT Pulse 59 10/26/2019 11:30 AM EDT Temperature 36.1 ??C (97 ??F) 10/26/2019 11:06 AM EDT Respiratory Rate 20 10/26/2019 11:30 AM EDT Oxygen Saturation 100% 10/26/2019 11:30 AM EDT Inhaled Oxygen Concentration - - [...] No 12/06/2018 7:32 AM EDT Tomi Slaughter, CCMA * Because of a physical, mental or emotional condition, does this person have difficulty doing errands alone such as visiting a doctor's office or shopping? Answer Date of Assessment Author No 12/06/2018 7:32 AM EDT Tomi SlaughterASHLEYElver documented as of this encounter Mental Status * Because of a physical, mental or emotional condition, does this person have serious difficulty concentrating, remembering or making decisions? Answer Entry Date Author No 12/06/2018 7:32 AM EDT Tomi Slaughter CLAUDIA knutson documented in this encounter Discharge Instructions * [...] our office at . Get [facility] Soon! [place] [facility] +++++++++++++++++++++++++++++++++++++++++++++++++++++++++++++++++++ documented in this encounter Medications [...] Code Departure Means Destination Home or Self [facility] documented in this encounter H&P Notes * Bruce McdanielPATRICIA - 10/26/2019 9:13 AM EDT [facility] History and Physical Name: Stella Hylton ADDRESS: [address] [place] [address] : 1945 AGE: 74 y.o. Assessment: Hematuria, [...] INTRAOCULAR LENS; Surgeon: Conor Ramirez MD; Location: [facility]; Service: Ophthalmology ??? CATARACT REMOVAL Left 03/14/2019 LEFT EYE CATARACT EXTRACTION WITH PHACOEMULSIFICATION AND INTRAOCULAR LENS; Surgeon: Conor Ramirez MD; Location: [facility]; Service: Ophthalmology ??? COLONOSCOPY ??? HEMORRHOID SURGERY ??? HIP ARTHROPLASTY Right 02/16/2014 RIGHT TOTAL HIP REPLACEMENT; Surgeon: Bruce Oh MD; Location: [facility] MAIN OR; Service: Orthopedics ??? HYSTERECTOMY complete ??? LUMBAR DISC SURGERY 11/03/2012 Surgeon: Elza Bautista MD; Location: [facility] MAIN OR; Service: ??? TOTAL KNEE ARTHROPLASTY Left 12/28/2018 left knee total replacement; Surgeon: Bruce Oh MD; Location: [facility] MAIN OR; Service: Orthopedics Prior to Admission [...] from the original note were not included. [facility] Urology Bladder Biopsy & Fulguration [...] in the usual sterile fashion. The 21 Filipino cystoscope was inserted. Under direct vision, the [...] I performed the procedure Amari Wheeler MD [facility] [address] [place] [address] 10/26/2019 10:53 AM documented in this encounter [...] or near the operative extremity. ??? Nail maltese must be removed from operative extremity. Personal [...] a Living Will and Durable Power of Control Director for Healthcare, please bring a copy. [...] are here. Same Day Surgery Unit - [place] at [phone]; [place] SDS: Patient Entrance 3A, take [place] elevator to 2nd floor - [address] [place] [phone] documented in this encounter Miscellaneous Notes * Plan of Care - Lily Mehta RN - 10/26/2019 11:02 AM EDT Pt to be dc'd from post op documented in this encounter Plan of Treatment Upcoming Encounters Date Type Department Care Team (Late st Contact Info) Description 05/16/2024 9:30 AM EST Office Visit [facility] [address] [place] [address] Gilda Francis PA [address] [place] [address] documented as of this encounter Procedures Procedure Name Priority Date/Time Associated Diagnosis Comments PATHOLOGY TISSUE REQUEST Routine 10/26/2019 10:49 AM EDT Hematuria, unspecified type CYSTOSCOPY TRANSURETHRAL RESECTION BLADDER TUMOR - FULGURATION/EVACUATION OF CLOT 10/26/2019 10:31 AM EDT Hematuria, unspecified type documented in this encounter Results * PATHOLOGY TISSUE REQUEST (10/26/2019 10:49 AM EDT) CASE REPORT Surgical Pathology ?Case: [id number] ? Authorizing Provider: ??Amari Wheeler MD ?Collected: ? 10/26/2019 1049 ? Ordering Location: ? [facility] ?Received: ?10/26/2019 1235 ? Pathologist: ? Albina Reilly MD ? Specimen: ?Bladder, Urinary, bladder biopsy ? 10/28/2019 3:18 PM EDT [facility] FINAL DIAGNOSIS Urinary bladder, biopsy: - Urothelial mucosa with acute and chronic inflammation, and reactive atypia. - Negative for malignancy. [facility] Received in formalin, labeled with the patient's name and bladder biopsy is a 0.3 cm in greatest dimension brown-white tissue fragment which is submitted in toto in one cassette. /TE 10/28/2019 3:18 PM EDT [facility] MICROSCOPIC DESCRIPTION Microscopic examination is performed and the findings corroborate the diagnosis. CK 20 immunostain is negative. P53 immunostain shows patchy positivity of basal cells. The immunostains profile supports the diagnosis. 10/28/2019 3:18 PM EDT [facility] SPECIAL STAINS All controls show appropriate reactivity. ASR: Some of the immunohistochemical stains were developed and their performance characteristics determined by [facility]. They have not been cleared or [...] clinical laboratory testing. 10/28/2019 3:18 PM EDT [facility] EMBEDDED IMAGES 10/28/2019 3:18 PM EDT [facility] Tissue URINARY BLADDER STRUCTURE / Unknown 10/26/2019 10:49 AM EDT 10/26/2019 12:35 PM EDT us Amari Wheeler MD PATHOLOGY ORDERABLES Final Resul t [facility] [address] [place] [address] [address] documented in this encounter Visit Diagnoses Diagnosis Hematuria, unspecified type Hematuria, unspecified type documented in this encounter [...] documented as of this encounter Care Teams Transport Coordinator Relationship Specialty Start Date End Date Mann Irene MD [address] [place] [phone] PCP - General Internal Medicine 08/23/12 07/13/22 documented as of this encounter
--- OUTSIDE RECORDS SUMMARY | 2024-03-27 15:04 | XMS_ITS | Encounter Summary ---
Author Organization [facility] [place] [address] Care Team Providers Care Quill Picking Machine Operator Name Role Phone Mann Irene MD Primary Care Provider [phone] Encounter Details Date Type Department Care Team (Latest Contact Info) Description 09/22/2019 Travel Social History Tobacco Use Types Packs/Day [...] have Coronavirus / COVID-19? No / Unsure 09/22/2019 3:18 PM EDT documented as of this encounter [...] EST Office Visit [facility] [address] [place] [phone] Gilda Francis PA [address] [place] [address] documented as of this encounter Visit Diagnoses Not on filedocumented in this encounter Additional Health Concerns Assessment Noted Time A fall risk assessment has been complete d for the patient 12/06/2018 7:30 AM EDT documented as of this encounter Care Teams Quill Picking Machine Operator Relationship Specialty Start Date End Date Mann Irene MD [facility]TRY [facility] [place] [address] PCP - General Internal Medicine 08/23/12 07/13/22 documented as of this encounter
--- OUTSIDE RECORDS SUMMARY | 2024-03-27 15:04 | XMS_ITS | Encounter Summary ---
Author Organization [facility] [place] [address] Care Team Providers Care Senior Rd Engineer Name Role Phone Mann Irene MD Primary Care Provider Encounter Details Date Type Department Care Team (Latest Contact Info) Description 07/04/2019 Travel Social History Tobacco Use Types Packs/Day [...] Office Visit [facility] [address] [place] [address] Gilda Francis PA [address] [place] [address] documented as of this encounter Visit Diagnoses Not on filedocumented in this encounter Additional Health Concerns Assessment Noted Time A fall risk assessment has been complete d for the patient 12/06/2018 7:30 AM EDT documented as of this encounter Care Teams Senior Rd Engineer Relationship Specialty Start Date End Date Mann Irene MD [address] [place] [phone] PCP - General Internal Medicine 08/23/12 07/13/22 documented as of this encounter
--- OUTSIDE RECORDS SUMMARY | 2024-03-27 15:04 | XMS_ITS | Encounter Summary ---
Author Organization [place] [address] Care Team Providers Care Lifter Name Role Phone Mann Irene MD Primary Care Provider [phone] Reason for Referral * (Routine) - Closed Specialty Diagnoses / Procedures Referred By Ramona mcdaniel Referred To Contact Diagnoses Hematuria, unspecified type Procedures AMB URO SURGERY COMM ORDER Amari Wheeler MD Phone: tel: fax: Referral ID Status Reason Start Date Expiration Date Visits Re quested Visits Authorized [id number] Closed 10/10/2019 10/09/2020 1 1 Reason for Visit * Reason Comments Procedure cysto * In Office Procedure (Routine) - Closed Specialty Diagnoses / Procedures Referred By Ramona mcdaniel Referred To Contact Urology Diagnoses Renal calculus Recurrent UTI cysto Procedures LA CYSTOURETHROSCOPY PROCEDURE Amari Wheeler MD [address] [place] [address] Phone: tel: fax: Amari Wheeler MD [address] [place] [address] Phone: tel: fax: Referral ID Status Reason Start Date Expiration Date Visits Re quested Visits Authorized [id number] Closed 08/03/2019 08/02/2020 1 1 Encounter Details Date Type Department Care Team (Latest Contact Info) Description 10/10/2019 11:40 AM EDT Procedure visit [facility] [address] [address] Amari Wheeler MD [address] [place] [address] Hematuria, unspecified type (Primary Dx) Social History Tobacco [...] have Coronavirus / COVID-19? No / Unsure 10/10/2019 11:20 AM EDT documented as of this encounter Last Filed Vital Signs Vital Sign Reading Time Taken Comments Blood Pressure 126/78 10/10/2019 11:33 AM EDT Pulse 85 10/10/2019 11:33 AM EDT Temperature 36.5 ??C (97.7 ??F) 10/10/2019 11:33 AM E DT Respiratory Rate - - Oxygen Saturation 95% 10/10/2019 11:33 AM EDT Inhaled Oxygen Concentration - - Weight 83.5 kg (184 lb) 10/10/2019 11:33 AM EDT Height 152.4 cm (5') 10/10/2019 11:33 AM EDT Body Mass Index 35.94 10/10/2019 11:33 AM EDT documented in this encounter Functional [...] Author No 12/06/2018 7:32 AM EDTomi José CLAUDIA * Does this person have difficulty [...] Progress Notes * Amari Wheeler MD - 10/10/2019 11:40 AM EDT Images from the original note were not included. [facility] Urology Office Procedure Note Stella Hylton 1945 Allergies Allergen Reactions ??? Celecoxib Rash VitalSigns: BP 126/78 (BP Location: Right arm, Patient Position: Sitting) Pulse 85 Temp 97.7 ??F (36.5 ??C) Ht 5' (1.524 m) Wt 184 lb (83.5 kg) LMP (LMP Unknown) SpO2 95% BMI 35.94 kg/m?? The patient has been advised to have an office based procedure. The risks, benefits and alternatives have been reviewed. Verbal consent was obtained. All questions were answered. Reason(s) for procedure: No specialty comments available. Update previous history: No changed reported in PMH, Meds, Surgical Hx, FH, Social Hx, ROSS since last [facility] Procedure details: The patient was placed on the treatment table in the lithotomy position. The patient was prepared with antiseptic solution. Sterile towels were placed. A topical local anesthetic of 5% lidocaine was used. The AUA Guidelines for Antibiotic Prophylaxis will be followed. The following procedures were p erformed: POCT Urinalysis: Results for orders placed or performed in visit on 10/10/19 [facility] URINALYSIS POC Result Value Ref Range UA Color POC Yellow UA Appear POC Cloudy (A) Clear UA Gluc POC Negative Negative mg/dL UA Bili POC Negative Negative UA Ketones POC Negative Negative mg/dL UA SG POC 1.020 1.001 - 1.035 UA Blood POC Moderate (A) Negative UA pH POC 7.0 5.0 - 8.0 UA Protein POC Trace (A) Negative mg/dL UA Urobilinogen POC 0.2 0.2, 1.0 UA Nitrite POC Negative Negative UA Leuk Est POC Moderate (A) Negative Urine Micro: no unusual cells, bacteria or crystals Cystoscopy Urethra: lesions no atrophyno support normal Bladder neck: open neck yes orifices in normal position yes clear efflux from each ureteral orifice yes Mucosa: tumors yes healthy mucosa yes foreign objects no The findings were fully discussed with the patient. Diagnoses: No diagnosis found. Plan: Hematuria Urine culture CT urogram Cystoscopy under local anesthesia in office Urine Cytology ?? Recurrent UTI Discussed with patient definition of recurrent UTI. Refers to >=2 infections in 6 months or >=3 infections in one year. Patient does meet criteria for recurrent UTI's.Discussed options including medical prophylaxis, topical vaginal hormonal therapy, and increased hygiene. Discussed correctable causes of recurrent UTI's including avoiding spermicide and diaphragm use, and diabetes. Discussed some evidence that shows cranberry juice can prevent UTI's in sexually active women. Local cystoscopy in office if infections persist Imaging- renal US to evaluate for hydronephrosis, renal stones If infections continue to persist, can initiate prophylactic abx Discussed getting cultures done prior to initiating antibiotics in the future to document infections 10-10-19 CT scan - IMPRESSION: 1. 1.5 [...] AAA which shouldn't preclude patient from ESWL Suspicious Bladder Lesion To OR for cystoscopy, bladder biopsy and fulguration, possible TURBT. The risks, benefits, complications, treatment options, and expected outcomes were discussed with the patient. The possibilities of reaction to medication, pulmonary aspiration, perforation of viscus, damage to ureters causing renal obstruction, bleeding, recurrent infection, the need for additional procedures, failure to diagnose a condition, and creating a condition requiring transfusion or operation were discussed with the patient. The patient concurred with the proposed plan, giving informed consent. Return in: No follow-ups on file. Amari Wheeler MD [facility] [address] [place] [address] 10/10/2019 11:41 AM documented in this encounter Miscellaneous Notes * Addendum Note - Oralia Lizama MA - 10/10/2019 11:40 AM EDTAddended by: ORALIA LIZAMA on: 10/11/2019 10:30 AM Modules accepted: Orders documented in this encounter Plan of Treatment Upcoming Encounters Date Type Department Care Team (Late st Contact Info) Description 05/16/2024 9:30 AM EST Office Visit [facility] [address] [place] [address] Gilda Francis PA [address] [place] [address] Scheduled Orders Name Type Priority Associated Diagnoses Orde r Schedule LA CYSTOURETHROSCOPY LA Charge Routine Hematuria, unspecified type Ordered: 10/10/2019 SURGICAL/PROCEDURE CASE REQUEST Procedures Routine Hematuria, unspecified type Ordered: 10/11/2019 documented as of this encounter Procedures Procedure Name Priority Date/Time Associated Diagnosis Comments [facility] URINALYSIS POC Routine 10/10/2019 11 :29 AM EDT Hematuria, unspecified type documented in this encounter Results * XR ABDOMEN AP (10/10/2019 12:18 PM EDT) Anatomical Region Laterality Modality Abdomen Radiographic Demetra ging 10/10/2019 12:1 8 PM EDT Impressions 10/10/2019 4:58 PM EDT Dominant 1.5 cm stone, right lower pole. - Narrative 10/10/2019 4:58 PM EDT CR, ABDOMEN AP, ??10/10/2019 12:18 PM CLINICAL HISTORY: ??R31.9-Hematuria, [id number] COMPARISON: ??No comparison abdominal films. Prior comparison abdominal/pelvic CT imaging study dated 07/22/2019. PROCEDURE COMMENTS: ??AP view(s) of the abdomen per protocol. FINDINGS: Nonobstructive bowel gas pattern. The visualized lungs are clear. Multiple scattered pelvic phleboliths. No dominant calcification regional to the left kidney. Dominant 1.5 cm right lower pole renal stone. Multilevel degenerative changes of the lumbar spine. Prior right hip replacement. Procedure Note Manish Estrada, DO - 10/10/2019 CR, ABDOMEN AP, 10/10/2019 12:18 PM CLINICAL HISTORY: R31.9-Hematuria, [id number] COMPARISON: No comparison abdominal films. Prior comparisonabdominal/pelvic CT imaging study dated 07/22/2019. PROCEDURE COMMENTS: AP view(s) of the abdomen per protocol. FINDINGS: Nonobstructive bowel gas pattern. The visualized lungs are clear.Multiple scattered pelvic phleboliths. No dominant calcification regional to theleft kidney. Dominant 1.5 cm right lower pole renal stone. Multileveldegenerative changes of the lumbar spine. Prior right hip replacement. IMPRESSION: Dominant 1.5 cm stone, right lower pole. - Amari Wheeler MD IM DIAGNOSTIC IMAGING ORDERABLE S Final Result * (ABNORMAL) [facility] (10/10/2019 11:29 AM EDT) [facility] UA Color POC Yellow 10/10/2019 11:31 AM EDT [facility] [place] UA Appear POC Cloudy(A) Clear 10/10/2019 11:31 AM EDT [facility] [place] UA Gluc POC Negative Negative mg/dL 10/10/2019 11:31 AM EDT [facility] [place] UA Bili POC Negative Negative 10/10/2019 11:31 AM EDT [facility] [place] UA Ketones POC Negative Negative mg/dL 10/10/2019 11:31 AM EDT [facility] UA SG POC 1.020 1.001 - 1.035 10/10/2019 11:31 AM EDT [facility] UA Blood POC Moderate(A) Negative 10/10/2019 11:31 AM EDT [facility] UA pH POC 7.0 5.0 - 8.0 10/10/2019 11:31 AM EDT [facility] UA Protein POC Trace(A) Negative mg/dL 10/10/2019 11:31 AM EDT [facility] UA Urobilinogen POC 0.2 0.2, 1.0 10/10/2019 11:31 AM EDT [facility] UA Nitrite POC Negative Negative 10/10/2019 11:31 AM EDT [facility] UA Leuk Est POC Moderate(A) Negative 10/10/19 20 11:31 AM EDT [facility] Urine URINE SPECIMEN COLLECTION / Unknown 10/10/2019 11:29 AM EDT 10/10/2019 11:31 AM EDT Amari Wheeler MD POINT OF CARE TEST ORDERABLES Fi nal Result [facility] [address] [place] [address] documented in this encounter Visit Diagnoses Diagnosis Hematuria, unspecified type- Primary Hematuria, unspecified type documented in this encounter Orders Nursing Count Last Ordered Date First Orde red Date AMB URO SURGERY COMM ORDER 1 10/10/2019 documented in this encounter Additional Health Concerns Assessment Noted Time A fall risk assessment has been complete d for the patient 12/06/2018 7:30 AM EDT documented as of this encounter Care Teams Lifter Relationship Specialty Start Date End Date Mann Irene MD [address] [place] [address] PCP - General Internal Medicine 08/23/12 07/13/22 documented as of this encounter
--- OUTSIDE RECORDS SUMMARY | 2024-03-27 15:04 | XMS_ITS | Encounter Summary ---
Author Organization [facility] [place] [address] Care Team Providers Care Growth Hacker Name Role Phone Mann Irene MD Primary Care Provider [phone] Encounter Details Date Type Department Care Team (Latest Contact Info) Description 10/10/2019 Travel Social History Tobacco Use Types Packs/Day [...] EST Office Visit [facility] [address] [place] [id number] Gilda Francis PA [address] [place] [address] documented as of this encounter Visit Diagnoses Not on filedocumented in this encounter Additional Health Concerns Assessment Noted Time A fall risk assessment has been complete d for the patient 12/06/2018 7:30 AM EDT documented as of this encounter Care Teams Growth Hacker Relationship Specialty Start Date End Date Mann Irene MD [address] [place] [address] [place] [address] PCP - General Internal Medicine 08/23/12 07/13/22 documented as of this encounter
--- OUTSIDE RECORDS SUMMARY | 2024-03-27 15:04 | XMS_ITS | Encounter Summary ---
Author Organization [place] [address] Care Team Providers Care Qi Specialist Name Role Phone Mann Irene MD Primary Care Provider [phone] Reason for Visit * Auth/Cert/Inpt Specialty Diagnoses / Procedures Referred By Ramona mcdaniel Referred To Contact Diagnoses Nuclear sclerotic cataract of left eye Cortical age-related cataract, left eye Nuclear sclerotic cataract of left eye [H25.12] Cortical age-related cataract, left eye [H25.012] Procedures [place] REM[place] CATARACT EXTRACAP,INSERT LENS LEFT EYE CATARACT EXTRACTION WITH PHACOEMULSIFICATION AND INTRAOCULAR LENS Referral ID Status Reason Start Date Expiration Date Visits Re quested Visits Authorized [id number] 1 1 Encounter Details Date Type Department Care Team (Latest Contact Info) Description 03/14/2019 9:30 AM EST - 03/14/2019 9:45 AM EST Surgery [facility] [address] [place] [id number] Conor Ramirez MD [address] [place] [address] CATARACT EXTRACTION WITH PHACOEMULSIFICATION AND INTRAOCULAR LENS Surgery Details Date/Time Status Location OR Service Patient Class Case Class Case Type Trauma Case? 03/14/2019 9:30 AM Posted [facility] 03 Ophthalmology Same Day Surgery Elective Panel 1 Procedure LRB Anes Op Region Wound Class Comments CATARACT EXTRACTION WITH PHACOEMULSIFICATION AND INTRAOCULAR LENS Left Monitored Anesthesia Care Clean LEFT EYE CATARACT EXTRACTION WITH PHACOEMULSIFICATION AND INTRAOCULAR LENS Surgeon Surgeon Role Service Panel Conor Ramirez MD Primary Ophthalmology 1 Special Needs EPISHUGARCAINEAXIAL: 24.41 MMTOPICAL/MAC documented in this encounter Social History Tobacco [...] Sign Reading Time Taken Comments Blood Pressure 157/91 03/14/2019 9:09 AM EST Pulse 77 03/14/2019 9:09 AM EST Temperature 36.7 ??C (98 ??F) 03/14/2019 9:09 AM EST Respiratory Rate 16 03/14/2019 9:09 AM EST Oxygen Saturation 100% 03/14/2019 9:09 AM EST Inhaled Oxygen Concentration - - Weight 77.3 kg (170 lb 7 oz) 03/14/2019 9:09 AM EST Height 154.9 cm (5' 1 ) 02/23/2019 9:14 AM EDT Body Mass Index 32.2 02/28/2019 8:24 AM EDT documented in this encounter Functional Status * Is the person deaf or does he/she have serious difficulty hearing? Answer Date of Assessment Author No 12/06/2018 7:32 AM EDT Tomi Slaughter CCMA * Is the person blind or does he/she have serious difficulty seeing even when wearing glasses? Answer Date of Assessment Author No 12/06/2018 7:32 AM CAITT Tomi Slaughter CCMA * Does [...] this encounter Discharge Instructions * Discharge Instructions* Conor Ramirez MD - 03/14/2019 9:46 AM EST Images from the original note were not included. CATARACT SURGERY DISCHARGE INSTRUCTIONS FOR DR. CONOR RAMIREZ Best wishes are extended to you on behalf of [facility] as you are discharged. Please carefully read the following instructions below. ?? The post-operative drops are VERY IMPORTANT. Start the eye drops as instructed within 2 hours after surgery. ?? Bring the surgery bag, drops, and instruction sheet to your appointment tomorrow. ?? Tape the protective shield over the surgical eye at bedtime or naptime for 3 days to prevent accidentally rubbing or bumping your eye. You can sleep in any position as long as you are wearing the eye shield. ?? NO WATER IN THE SURGERY EYE. You may clean your face but do not get water directly in the operative eye. Shower from the shoulders down with your back to the water or you may take a bath. ?? Keep the area around your eye clean with a warm damp washcloth. Keep soap, lotion, shampoo, make-up, etc. away from the surgical eye for 5 days. ?? Do not rub or touch the surgical eye. ?? You may return to work within 48 hours provided your job does not require heavy lifting or straining. If your job requires exertion, please discuss with Dr. Ramirez. ?? You should not have severe pain after surgery. The eye may feel irritated or scratchy. You may take an over the counter pain reliever for discomfort as needed. If pain becomes severe, call the doctor???s office immediately. ?? You may experience temporary floaters in the post-operative eye. The surgical eye may appear redor bloodshot. This will gradually lessen as the eye heals. ?? CALL THE OFFICE IMMEDIATELY IF YOU EXPERIENCE ANY OF THE FOLLOWING: ?? Sudden decrease in vision ?? Severe pain ?? Large number of new floaters ?? Flashes of light ?? Veil-like curtain across your eye [facility] phone number . There is an poison information specialist crm functional analyst 24 hours a day for emergencies. Call the [facility] with any questions or concerns. +++++++++++++++++++++++++++++++++++++++++++++++++++++++++++++++++++ [facility] Discharge Instructions - Following Anesthesia We [...] our office at . Get Well Soon! [place] An[facility] +++++++++++++++++++++++++++++++++++++++++++++++++++++++++++++++++++ documented in this encounter Medications at Time of Discharge ergocalciferol (VITAMIN D) 50,000 unit Oral Capsule Take 1 Cap by mouth once a week. 12 Cap 3 02/11/2019 02/06/2020 documented as of this encounter Ordered Prescriptions Prescription Sig Dispense Quantity Refills Last Filled Start Date End Date moxifloxacin (VIGAMOX) 0.5 % Opht Drops Place 1 Drop into the left eye 2 times daily. 0 03/14/2019 9 difluprednate (DUREZOL) 0.05 % Opht Drops Place 1 Drop into the left eye 2 times daily. Can substitute Inveltys or Prednisolone 1 mL 03/14/2019 9 documented in this encounter Discharge Disposition Disposition Code Departure Means Destination Home or Self Shelter documented in this encounter H&P Notes * Liam Scott MD - 03/14/2019 9:21 AM EST H&P Updated-No Change except intervening eye surgery Patient Examined and Interviewed Source Note - Carl Irene MD - 02/21/2019 10:40 AM EDT Images from the original note were not included. Preoperative Evaluation Stella Hylton is a 73 y.o. female who is undergoing cataract removal bilateral for cataracts by Dr Conor Ramirez on 02/28/19 Prior Reactions to Anesthesia none Allergies Allergen Reactions ??? Celecoxib Rash Patient Active Problem List Diagnosis ??? Hypercholesterolemia ??? OA (osteoarthritis)-s/p RIGHT TOTAL HIP REPLACEMENT 02/16/14. ??? Hip joint replacement by other means ??? Other physical therapy Past Medical History: Diagnosis Date ??? Arthritis ??? Hyperlipidemia ??? Motion sickness Past Surgical History: Procedure Laterality Date ??? HEMORRHOID SURGERY ??? HIP ARTHROPLASTY Right 02/16/2014 RIGHT TOTAL HIP REPLACEMENT; Surgeon: Bruce Oh MD; Location: [facility]; Service: Orthopedics ??? HYSTERECTOMY ??? LUMBAR DISC SURGERY 11/03/2012 Surgeon: Elza Bautista MD; Location: [facility]; Service: ??? TOTAL KNEE ARTHROPLASTY Left 12/28/2018 left knee total replacement; Surgeon: Bruce Oh MD; Location: [facility] MAIN OR; Service: Orthopedics Current Outpatient Medications: ??? ALLERGY RELIEF D-24HR 10-240 mg Oral Tablet Sustained Release 24 hr, TAKE 1 TABLET BY MOUTH EVERY DAY, Disp: 30 Tab, Rfl: 0 ??? aspirin 81 mg Oral Tablet, Delayed Release (E.C.), Take 1 Tab by mouth daily., Disp: , Rfl: ??? atorvastatin (LIPITOR) 10 mg Oral Tablet, TAKE 1 TABLET EVERY DAY, Disp: 90 Tab, Rfl: 1 ??? diclofenac (VOLTAREN) 75 mg Oral Tablet, Delayed Release (E.C.), TAKE 1 TAB BY MOUTH 2 TIMES DAILY (WITH MEALS) FOR 360 DAYS., Disp: 60 Tab, Rfl: 0 ??? ergocalciferol (VITAMIN D) 50,000 unit Oral Capsule, Take 1 Cap by mouth once a week., Disp: 12Cap, Rfl: 3 ??? oxyCODONE (ROXICODONE) 5 mg Oral Tablet, Take 1-2 Tabs by mouth every 8 hours as needed for Major Surgery/Trauma (G89.18) (moderate/severe 6-10 pain)., Disp: 60 Tab, Rfl: 0 ??? tiZANidine (ZANAFLEX) 2 mg Oral Tablet, Take 2 Tabs by mouth every 8 hours as needed for Other (muscle relaxant)., Disp: 60 Tab, Rfl: 0 ??? vit C/E/Zn/coppr/lutein/zeaxan (PRESERVISION AREDS-2 ORAL), Take by mouth daily., Disp: , Rfl: Social Social History Socioeconomic History ??? Marital status: Spouse name: None ??? Number of children: None ??? Years of education: None ??? Highest education level: None Tobacco Use ??? Smoking status: Former Smoker Packs/day: 0.50 Years: 25.00 Pack years: 12.50 Types: Cigarettes Last attempt to quit: 09/27/2014 Years since quittin.4 ??? Smokeless tobacco: Never Used ??? Tobacco comment: quit ~'06 Substance and Sexual Activity ??? Alcohol use: No ??? Drug use: No Family History Family History Problem Relation Age of Onset ??? Early Father ??? Early Sister ??? Early Brother ??? Anesth Problems Neg Hx Immunization History Administered Date(s) Administered ??? Influenza High Dose 02/21/2015 ??? Influenza Vaccine, Unspecified Formulation 02/04/2014, 02/09/2016 ??? PPD Test 02/20/2014 ??? Pneumococcal Conjugate Vaccine 13 Valent 02/28/2015 ??? Pneumococcal Polysaccharide 23 Valent 10/13/2012 ??? Tdap 02/28/2015 ROS: Constitutional: does not have recent fever. does not have recent chills Eyes: does not use contacts ENT: does not nose bleeds. does not have nasal polyps. does have dentures (both) Infectious Disease - Illness:does not have recent significant illness Cardiovascular - Pulmonary:: does not have recent chest pain or chest pain on exertion does not have SOL, SOA, PND, Orthopnea, LE Edema. does not have recent myocardial infarction in the last 6 months. GI: does not have known swallowing difficulties that would increase risk of aspiration Skin: does not have known recent infectious disease type rashes. Musculoskeletal: does not cervical known cervical pathology that would be expected to impact intubation (example rheumatoid arthritis) Hematologic/Allergic: does not bleeding issues or easy bruising. does not have sickle cell anemia. Anesthesia History: does have a history of prior surgery which required general anesthesia. Previous reaction to anesthesia? no PHYSICAL EXAM: Vitals: 02/21/19 1028 BP: 130/80 Pulse: 87 Resp: 20 Temp: 98.2 ??F (36.8 ??C) SpO2: 98% General: Stella appears alert, well developed, well nourished, in no acute distress Head: Normocephalic, without obvious abnormality, atraumatic Eyes: Pupils equal, round and reactive to light and Extraocular movements intact ENT: ENT exam normal, mucous membranes moist Neck: neck is supple and there is full active range of motion Lungs: clear to auscultation bilaterally, normal airflow and normal effort Cardiovascular: heart tones regular Pulses Table: L radial 2+ R radial 2+ L posterior tibial 2+ R posterior tibial 2+ L dorsalis pedis 2+ R dorsalis pedis 2+ Abdomen: abdomen is soft, nontender, and nondistended without hepatosplenomegaly or masses, normoactive bowel sounds are present, there are no peritoneal signs Lymphadenopathy: normal and no adenopathy noted Neurological: Orientation:Person, Place and Time Skin: warm, well perfused and no rashes Lab Results Component Value Date WBC 12.2 (H) 12/15/2018 HGB 11.3 12/31/2018 HCT 36.7 12/31/2018 PLT 342 12/15/2018 CHOLESTEROL 164 10/13/2017 TRIG 75 10/13/2017 HDL 47 10/13/2017 LDLCALC 102 (H) 10/13/2017 ALT 13 12/15/2018 AST 17 12/15/2018 NA 144 12/15/2018 K 4.1 12/15/2018 CL 107 12/15/2018 CALCIUM 9.3 12/15/2018 BUN 11 12/15/2018 CREATININE 0.62 12/15/2018 GFRAFRAM 105 12/15/2018 GFRNONAFRAM 91 12/15/2018 CO2 27 12/15/2018 INR 1.01 12/15/2018 GLU 80 (L) 12/15/2018 TSH 1.370 01/23/2016 No results found for this visit on 02/21/19. Revised Faustin Cardiac Risk Index (Circulation 1999; 100: 5810-0428) 1. High risk surgical procedures (intraperitoneal, intrathoracic, [...] is assigned one point. Total Points 0 Risk of a Major Cardiac Event Points Class Risk 0 I 0.4% 1 II 0.9% 2 III 6.6% 3 or more IV 11% Major cardiac event includes myocardial infarction, pulmonary edema, ventricular fibrillation, primary cardiac arrest and complete heart block. Assessment and Recommendations Stella was seen today for pre-op exam. Diagnoses and all orders for this visit: Pre-op examination Average risk for her cataract surgery. Proceed with surgery as planned. -Advised to hold her diclofenac, aspirin, and any fish oil supplements 1 week prior to her surgery Age-related cataract of both eyes, unspecified age-related cataract type Proceed with surgery as planned. Osteoarthritis, unspecified osteoarthritis type, unspecified site -Advised to hold her diclofenac for 1 week prior to surgery This patient is at average risk for the proposed surgery. There are no contraindications to surgery. Carl Irene MD documented in this encounter Procedure Notes * Conor Ramirez MD - 03/14/2019 9:47 AM EST PHYSICIAN???S OPERATIVE NOTE CONOR RAMIREZ M.D. Surgery Date: 03/14/2019 CHIEF COMPLAINT: [x] Reading/near tasks [x] Glare/Halos [x] Decreased vision w/functional impairment VA: 20/40 Glare:____20/600 PRE-OP DIAGNOSIS: [x] Nuclear sclerosis cataract, senile Left eye [x] Cortical cataract, senile Left eye [] Posterior subcapsular cataract, senile Left eye [] Mature cataract, senile Left eye POST-OP DIAGNOSIS: SAME PRE-OP DIAGNOSIS PROCEDURE: Phacoemulsification w/posterior chamber intraocular lens implantation - Left eye ANESTHESIA: Monitored Anesthesia Care COMPLICATIONS: [x] NONE [] SURGEON: CONOR RAIMREZ M.D. DESCRIPTION OF PROCEDURE: After informed consent was obtained, the patient was given IV sedation bythe anesthesia service. The patient was brought to the operating room. After adequate anesthesia was obtained, the patient was prepped and draped in the usual sterile fashion for intraocular surgery.The lid speculum was placed between the lids of the operative eye and the operating microscope was placed over the operative eye. A paracentesis incision was made with a supersharp blade and air was injected into the anterior chamber. The anterior chamber was filled with Viscoat. A crescent blade was used to make a partial thickness groove at the limbus temporally and a corneal tunnel was formed.The anterior chamber was then entered with a 2.4 mm keratome. A continuous curvilinear capsulorhexis was fashioned with Utrata forceps, and BSS on a cannula was used for hydrodissection. Phacoemulsification was used to remove all nuclear and epinuclear material, and automated irrigation and aspiration was used to remove cortical material. Viscoelastic was injected into the capsular bag and anterior chamber. The wound was slightly enlarged with a crescent blade. A foldable posterior chamber intraocular lens was injected into the capsular bag and centered into position. The viscoelastic was removed with automated irrigation and aspiration and BSS was used to reform the anterior chamber. The wounds were tested and found to be water tight with adequate intraocular pressure. The patient tolerated the procedure well and was taken to the recovery room in stable condition. [] LRI was performed due to surgically induced astigmatism. [] LRI was performed to reduce astigmatism Also Used: [] Vision Blue - To stain the anterior capsule for dense cataract [] Malyugin Ring - 2?? to miotic pupil [] Superficial Keratectomy - To remove irregular epithelium [] Capsular Tension Ring - To stabilize the capsular bag [] Restor Lens - To correct presbyopia [] Toric Lens - To reduce astigmatism [] iStent - To reduce IOP for patients with open-angle glaucoma [] ORA - Intraoperative calculations Incision Location: [] LRI Performed-to reduce Lens Axis Astigmatism Incision Size: 0.5mm/ mm Number of Incisions: Micrometer Depth: mm Length: mm Ceres: ?? Conor Ramirez M.D. Date documented in this encounter Nursing Notes * Cece Graham RN - 03/14/2019 9:55 AM EST Lens timeout @ 0955 * Candice Saldaña RN - 02/23/2019 9:17 AM EDT PREPARING FOR YOUR SURGERY Date of Surgery 03/14/19 Medications ??? Take the following pills with a small sip of water on the morning of surgery: Allergy relief, aspirin, atorvastatin, ciprofloxacin, and diclofenac. Can take oxycodone if needed. ??? Aspirin, coumadin, blood thinners, ibuprofen, Plavix, [...] ??? Review instructions provided by your surgeon. Hr Manager ??? On the day of surgery, it is important to have a Hr Manager, someone who is 18 years or older, to accompany you and remain in the facility for the duration of your surgery. This [...] or near the operative extremity. ??? Nail sao tomean must be removed from operative extremity. Personal [...] a Living Will and Durable Power of Electrician Elevator Maintenance for Healthcare, please bring a copy. ??? [...] an excellent experience while you are here. Surgery Center [facility] at [phone] - [address] [place] [address] documented in this encounter Plan of Treatment Upcoming Encounters Date Type Department Care Team (Late st Contact Info) Description 05/16/2024 9:30 AM EST Office Visit [facility] [address] [place] [address] Gilda Francis PA [address] [place] [address] documented as of this encounter Procedures Procedure Name Priority Date/Time Associated Diagnosis Comments CATARACT EXTRACTION WITH PHACOEMULSIFICATION AND INTRAOCULAR LENS 03/14/2019 9:31 AM EST Nuclear sclerotic cataract of left eye Cortical age-related cataract, left eye Special Needs EPISHUGARCAINEAXIAL: 24.41 MMTOPICAL/MAC documented in this encounter Visit Diagnoses Diagnosis Nuclear sclerotic cataract of left eye Senile nuclear sclerosis Cortical age-related cataract, left eye documented in this encounter Administered Medications Inactive Administered Medications - up to 1 most recent administrations Medication Order MAR Action Action Date Dose Rate Site chondroitin sulf-sod hyaluronate (DUOVISC) intra-ocular kit ONCE PRN, 1 dose, Starting on Thu03/14/19 at 0950, Until Thu03/14/19 at 0950, Intra-op Given 03/14/2019 9:50 AM EST 1.05 mL Left Eye Epi-Shugarcaine mixture 3.8 mL, ONCE PRN, 1 dose, Starting on Thu03/14/19 at 0950, Until Thu03/14/19 at 0950, Intra-op Given 03/14/2019 9:50 AM EST 0.7 mL Lef t Eye EPINEPHrine HCl (PF) 0.5 mL in balanced salts (BSS) 500 mL Irrigation ONCE PRN, 1 dose, Starting on Thu03/14/19 at 0950, Until Thu03/14/19 at 0950, Intra-op Given 03/14/2019 9:50 AM EST Left Eye moxifloxacin (VIGAMOX) 0.5 % ophthalmic solution ONCE PRN, 1 dose, Starting on Thu03/14/19 at 0950, Until Thu03/14/19 at 0950, Intra-op Given 03/14/2019 9:50 AM EST 1 Drop Left Eye ondansetron (ZOFRAN) injection 4 mg 4 mg, Intravenous, PRN, 1 dose, Starting on Thu03/14/19 at 1019, Until Thu03/14/19 at 1420, Nausea, PACU ondansetron (ZOFRAN-ODT) disintegrating tablet 8 mg 8 mg, Oral, PRN, 1 dose, Starting on Thu03/14/19 at 1019, Until Thu03/14/19 at 1420, Nausea, Dissolve in mouth, PACU phenylephrine (MYDFRIN) 2.5 % ophthalmic solution 1 Drop 1 Drop, Ophthalmic, PREPROCEDURE, 3 doses, Starting on Thu03/14/19 at 0902, Until Thu03/14/19 at 0923, Irritation, PREPROCEDURE, Administer one drop EVERY 5 MINUTES x 3 to operative eye, Pre-op (Holding/SDS Meds) Given 03/14/2019 9:23 AM EST 1 Drop Left Eye pilocarpine (PILOCAR) 1 % ophthalmic solution ONCE PRN, 1 dose, Starting on Thu03/14/19 at 0951, Until Thu03/14/19 at 0951, Intra-op Given 03/14/2019 9:51 AM EST 1 Drop Left Eye sodium chloride 0.9% syringe Intravenous, PREPROCEDURE, Starting on Thu03/13/19 at 1434, Until Thu03/14/19 at 1420, Line Care, Pre-op Priming, For priming IV saline lock, Pre-op (Holding/SDS Meds) Given 03/14/2019 9:24 AM EST 10 mL tetracaine HCl (PF) (PONTOCAINE) 0.5 % ophthalmic solution ONCE PRN, 1 dose, Starting on Thu03/14/19 at 0951, Until Thu03/14/19 at 0951, Intra-op Given 03/14/2019 9:51 AM EST 2 Drops Left Eye tropicamide (MYDRIACYL) 1 % ophthalmic solution 1 Drop 1 Drop, Ophthalmic, PREPROCEDURE, 3 doses, Starting on Thu03/14/19 at 0902, Until Thu03/14/19 at 0923, PREPROCEDURE, Administer 1 drop EVERY 5 MINUTES x 3 to operative eye, Pre-op (Holding/SDS Meds) Given 03/14/2019 9:23 AM EST 1 Drop Left Eye documented in this encounter Historical Medications * This list may reflect changes made after this encounter. sulfamethoxazole- trimethoprim (BACTRIM DS) 800-160 mg Oral Tablet TAKE 1 TABLET BY MOUTH EVERY 12 HOURS FOR 5 DAYS 0 02/21/2019 04/15/2019 added in this encounter Active and Recently Administered Medications Due to Daylight Saving Time, this section may contain times in both EDT and EST. PRN Medication Order 03/12/2019 03/13/2019 03/14/2019 acetaminophen (TYLENOL) tablet 1,000 mg 1,000 mg, Oral, ONCE PRN, 1 dose, Starting on Thu03/14/19 at 1019, Until Thu03/14/19 at 1420, Pain, Headaches, Maximum adult dose of acetaminophen is 4000 mg from all sources in 24 hours. , PACU chondroitin sulf-sod hyaluronate (DUOVISC) intra-ocular kit (COMPLETED) ONCE PRN, 1 dose, Starting on Thu03/14/19 at 0950, Until Thu03/14/19 at 0950, Intra-op 0950 (Given - Provid er: Conor Ramirez MD) Epi-Shugarcaine mixture (COMPLETED) 3.8 mL, ONCE PRN, 1 dose, Starting on Thu03/14/19 at 0950, Until Thu03/14/19 at 0950, Intra-op 0950 (Given - Provid er: Conor Ramirez MD) EPINEPHrine HCl (PF) 0.5 mL in balanced salts (BSS) 500 mL Irrigation (COMPLETED) ONCE PRN, 1 dose, Starting on Thu03/14/19 at 0950, Until Thu03/14/19 at 0950, Intra-op 0950 (Given - Provid er: Conor Ramirez MD) moxifloxacin (VIGAMOX) 0.5 % ophthalmic solution (COMPLETED) ONCE PRN, 1 dose, Starting on Thu03/14/19 at 0950, Until Thu03/14/19 at 0950, Intra-op 0950 (Given - Provid er: Conor Ramirez MD) ondansetron (ZOFRAN) injection 4 mg(Linked Group 1) 4 mg, Intravenous, PRN, 1 dose, Starting on Thu03/14/19 at 1019, Until Thu03/14/19 at 1420, Nausea, PACU ondansetron (ZOFRAN-ODT) disintegrating tablet 8 mg(Linked Group 1) 8 mg, Oral, PRN, 1 dose, Starting on Thu03/14/19 at 1019, Until Thu03/14/19 at 1420, Nausea, Dissolve in mouth, PACU phenylephrine (MYDFRIN) 2.5 % ophthalmic solution 1 Drop (COMPLETED) 1 Drop, Ophthalmic, PREPROCEDURE, 3 doses, Starting on Thu03/14/19 at 0902, Until Thu03/14/19 at 0923, Irritation, PREPROCEDURE, Administer one drop EVERY 5 MINUTES x 3 to operative eye, Pre-op (Holding/SDS Meds) 0912 (Given - Provid er: Stefania Conley RN)917 (Given - Provider: Stefania Conley RN)922 (Given - Provider: Stefania Conley RN) pilocarpine (PILOCAR) 1 % ophthalmic solution (COMPLETED) ONCE PRN, 1 dose, Starting on Thu03/14/19 at 0951, Until Thu03/14/19 at 0951, Intra-op 09 (Given - Provid er: Conor Ramirez MD) sodium chloride 0.9% syringe Intravenous, PREPROCEDURE, Starting on Thu03/13/19 at 1434, Until Thu03/14/19 at 1420, Line Care, Pre-op Priming, For priming IV saline lock, Pre-op (Holding/SDS Meds) 0924 (Given - Provid er: Stefania Conley RN) tetracaine HCl (PF) (PONTOCAINE) 0.5 % ophthalmic solution (COMPLETED) ONCE PRN, 1 dose, Starting on Thu03/14/19 at 0951, Until Thu03/14/19 at 0951, Intra-op 0951 (Given - Provid er: Conor Ramirez MD) tropicamide (MYDRIACYL) 1 % ophthalmic solution 1 Drop (COMPLETED) 1 Drop, Ophthalmic, PREPROCEDURE, 3 doses, Starting on Thu03/14/19 at 0902, Until Thu03/14/19 at 0923, PREPROCEDURE, Administer 1 drop EVERY 5 MINUTES x 3 to operative eye, Pre-op (Holding/SDS Meds) 09 (Given - Provid er: Stefania Conley RN)917 (Given - Provider: Stefania Conley RN)922 (Given - Provider: Stefania Conley RN) Linked Groups Order Group 1: ondansetron (ZOFRAN) injection 4 mgJump to med 4 mg, Intravenous, PRN, 1 dose, Starting on Thu03/14/19 at 1019, Until Thu03/14/19 at 1420, Nausea, PACU Or ondansetron (ZOFRAN-ODT) disintegrating tablet 8 mgJump to med 8 mg, Oral, PRN, 1 dose, Starting on Thu03/14/19 at 1019, Until Thu03/14/19 at 1420, Nausea, Dissolve in mouth, PACU documented in this encounter Orders Medications Ordered That Parish ht Not Have Been Administered Count Last Ordered Date First Ordered Date acetaminophen (TYLENOL) tablet 1,000 mg 1 1 05/14/2018 ondansetron (ZOFRAN) injection 4 mg 1 03/14 ondansetron (ZOFRAN-ODT) dis integrating tablet 8 mg 1 03/14/2019 Discharge Count Last Ordered Date First Orde red Date DISCHARGE PATIENT 1 03/14/2019 documented in this encounter Additional Health Concerns Assessment Noted Time A fall risk assessment has been complete d for the patient 12/06/2018 7:30 AM EDT documented as of this encounter Care Teams Qi Specialist Relationship Specialty Start Date End Date Mann Irene MD [employer] [place] [id number] PCP - General Internal Medicine 08/23/12 07/13/22 documented as of this encounter
--- OUTSIDE RECORDS SUMMARY | 2024-03-27 15:04 | XMS_ITS | Encounter Summary ---
Author Organization [facility] [place] [address] Care Team Providers Care Dumb Waiter Operator Name Role Phone Mann Irene MD Primary Care Provider Encounter Details Date Type Department Care Team (Latest Contact Info) Description 07/22/2019 Travel Social History Tobacco Use Types Packs/Day [...] EST Office Visit [facility] [address] [place] [address] Gilda Francis PA [address] [place] [address] documented as of this encounter Visit Diagnoses Not on filedocumented in this encounter Additional Health Concerns Assessment Noted Time A fall risk assessment has been complete d for the patient 12/06/2018 7:30 AM EDT documented as of this encounter Care Teams Dumb Waiter Operator Relationship Specialty Start Date End Date Mann Irene MD [address] [place] [phone] PCP - General Internal Medicine 08/23/12 07/13/22 documented as of this encounter
--- OUTSIDE RECORDS SUMMARY | 2024-03-27 15:04 | XMS_ITS | Encounter Summary ---
Author Organization [facility] [place] [address] Care Team Providers Care Export Traffic Department Manager Name Role Phone Mann Irene MD Primary Care Provider [phone] Encounter Details Date Type Department Care Team (Latest Contact Info) Description 08/11/2019 Travel Social History Tobacco Use Types Packs/Day [...] have Coronavirus / COVID-19? No / Unsure 08/11/2019 8:21 AM EDT documented as of this encounter [...] EST Office Visit [facility] [address] [place] [phone] Gilda Francis PA [address] [place] [address] documented as of this encounter Visit Diagnoses Not on filedocumented in this encounter Additional Health Concerns Assessment Noted Time A fall risk assessment has been complete d for the patient 12/06/2018 7:30 AM EDT documented as of this encounter Care Teams Export Traffic Department Manager Relationship Specialty Start Date End Date Mann Irene MD COUNTRY [facility] [place] [address] [place] [address] PCP - General Internal Medicine 08/23/12 07/13/22 documented as of this encounter
--- OUTSIDE RECORDS SUMMARY | 2024-03-27 15:04 | XMS_ITS | Encounter Summary ---
Author Organization [facility] [place] [address] Care Team Providers Care Back Up Machine Operator Name Role Phone Mann Irene MD Primary Care Provider [phone] Encounter Details Date Type Department Care Team (Latest Contact Info) Description 09/23/2019 Travel Social History Tobacco Use Types Packs/Day [...] have Coronavirus / COVID-19? No / Unsure 09/23/2019 3:55 PM EDT documented as of this encounter [...] Author No 12/06/2018 7:32 AM EDT Tomi Slaughetr CCMA * Because of a physical, mental or emotional condition, does this person have difficulty doing errands alone such as visiting a doctor's office or shopping? Answer Date of Assessment Author No 12/06/2018 7:32 AM EDoTmi José CCMA documented as of this encounter [...] EST Office Visit [facility] [address] [place] [phone] Gilda Francis PA [address] [place] [address] documented as of this encounter Visit Diagnoses Not on filedocumented in this encounter Additional Health Concerns Assessment Noted Time A fall risk assessment has been complete d for the patient 12/06/2018 7:30 AM EDT documented as of this encounter Care Teams Back Up Machine Operator Relationship Specialty Start Date End Date Mann Irene MD COUNTRY [facility] [place] [address] PCP - General Internal Medicine 08/23/12 07/13/22 documented as of this encounter
--- OUTSIDE RECORDS SUMMARY | 2024-03-27 15:04 | XMS_ITS | Encounter Summary ---
Author Organization [place] [address] Care Team Providers Care Youth Development Professional Name Role Phone Mann Irene MD Primary Care Provider [phone] Reason for Visit * Reason Onset Date Comments Results 04/18/2019 returning call f or results Encounter Details Date Type Department Care Team (Late st Contact Info) Description 04/18/2019 Telephone [facility] [place] [facility] [place] [address] Mann Irene MD COUNTRY [facility] [place] [address] Results (returning call for results ) Social History Tobacco Use Types Packs/Day [...] Author No 12/06/2018 7:32 AM EDT Tomi lSaughter CCMA * Is the person blind or [...] of Assessment Author No 12/06/2018 7:32 AM CAITTomi José CCMA documented as of this encounter Mental Status * Because of a physical, mental or emotional condition, does this person have serious difficulty concentrating, remembering or making decisions? Answer Entry Date Author No 12/06/2018 7:32 AM Tomi Huggins CCMA documented in this encounter Miscellaneous Notes * Telephone Encounter - Ninfa Wade RMA - 04/18/2019 2:49 PM EST Left message * Telephone Encounter - Keisha Gan - 04/18/2019 11:19 AM EST Please call * Telephone Encounter - Erma Claire - 04/18/2019 10:57 AM EST Patient was returning Ninfa's phone call about lab results. Tried to warm transfer, but unable to connect documented in this encounter Plan of Treatment Upcoming Encounters Date Type Department Care Team (Late st Contact Info) Description 05/16/2024 9:30 AM EST Office Visit [facility] [address] [place] [address] Gilda Francis PA [address] [place] [address] documented as of this encounter Visit Diagnoses Not on filedocumented in this encounter Additional Health Concerns Assessment Noted Time A fall risk assessment has been complete d for the patient 12/06/2018 7:30 AM EDT documented as of this encounter Care Teams Youth Development Professional Relationship Specialty Start Date End Date Mann Irene MD [address] [place] [address] PCP - General Internal Medicine 08/23/12 07/13/22 documented as of this encounter
--- OUTSIDE RECORDS SUMMARY | 2024-03-27 15:04 | XMS_ITS | Encounter Summary ---
Author Organization [place] [address] Care Team Providers Care Watch Crystal Cutter Name Role Phone Mann Irene MD Primary Care Provider [phone] Reason for Visit * Reason Onset Date Comments Other 10/19/2019 needing appt Encounter Details Date Type Department Care Team (Late st Contact Info) Description 10/19/2019 Telephone [facility] [place] [address] [address] [address] Mann Irene [place] [address] [address] [place] [address] Other (needing appt ) Social History Tobacco Use Types Packs/Day [...] No 12/06/2018 7:32 AM EDT Tomi Slaughter deysiroxanne CLAUDIA * Is the person blind or does he/she have serious difficulty seeing even when wearing glasses? Answer Date of Assessment Author No 12/06/2018 7:32 AM EDT Tomi Slaughter, ASHLEYA * Does this person have serious difficulty walking or climbing stairs? Answer Date of Assessment Author No 12/06/2018 7:32 AM EDT Tomi Slaughter ASHLEYA * Does this person have difficulty dressing or bathing? Answer Date of Assessment Author No 12/06/2018 7:32 AM EDT Tomi Slaughter ASHLEYA * Because of a physical, mental or emotional condition, does this person have difficulty doing errands alone such as visiting a doctor's office or shopping? Answer Date of Assessment Author No 12/06/2018 7:32 AM EDT Tomi Slaughter eamon CLAUDIA documented as of this encounter Mental Status * Because of a physical, mental or emotional condition, does this person have serious difficulty concentrating, remembering or making decisions? Answer Entry Date Author No 12/06/2018 7:32 AM EDT Tomi Slaughter deysiroxanne CLAUDIA documented in this encounter Miscellaneous Notes * Telephone Encounter - Ninfa Wade RMA - 10/20/2019 9:05 AM EDT Pt has been made aware * Telephone Encounter - Shelby Ernandez CCMA - 10/20/2019 8:47 AM EDT No answer * Telephone Encounter - Mann Irene MD - 10/20/2019 7:42 AM EDT Yes, she may stop her aspirin. * Telephone Encounter - Shelby Ernandez CCMA - 10/19/2019 12:39 PM EDT Please advise. Do you need to see her? * Telephone Encounter - Ninfa Wade RMA - 10/19/2019 12:04 PM EDT Pt is needing to be cleared by a Provider before 10/20 to stop Asprin for a procedure in 10/25. Pt has an appt on 12/07 Dr Chase office called and wanting her either to be seen or give a verbal that she can stop the Asprin. Needs to be done by 10/20. Please advise . Thanks documented in this encounter Plan of Treatment Upcoming Encounters Date Type Department Care Team (Late st Contact Info) Description 05/16/2024 9:30 AM EST Office Visit [facility] [address] [place] [address] Gilda Francis PA [address] [place] [address] documented as of this encounter Visit Diagnoses Not on filedocumented in this encounter Additional Health Concerns Assessment Noted Time A fall risk assessment has been complete d for the patient 12/06/2018 7:30 AM EDT documented as of this encounter Care Teams Watch Crystal Cutter Relationship Specialty Start Date End Date Mann Irene MD [address] [place] [address] PCP - General Internal Medicine 08/23/12 07/13/22 documented as of this encounter
--- OUTSIDE RECORDS SUMMARY | 2024-03-27 15:04 | XMS_ITS | Encounter Summary ---
Author Organization [place] [address] Care Team Providers Care Electron Gun Inspector Name Role Phone Mann Irene MD Primary Care Provider [phone] Encounter Details Date Type Department Care Team (Late st Contact Info) Description 04/17/2019 Orders Only [facility] [address] [place] [phone] Ramandeep Noriega, MARINE FARMER [address] [place] [address] UTI (urinary tract infection), uncomplicated (Primary Dx) Social History Tobacco Use Types [...] Assessment Author No 12/06/2018 7:32 AM EDT LeticiaTomi olson CCMElver * Because of a physical, mental or emotional condition, does this person have difficulty doing errands alone such as visiting a doctor's office or shopping? Answer Date of Assessment Author No 12/06/2018 7:32 AM EDT Leticiawesley Tomi ASHLEY knutsonElver documented as of this encounter Mental Status * Because of a physical, mental or emotional condition, does this person have serious difficulty concentrating, remembering or making decisions? Answer Entry Date Author No 12/06/2018 7:32 AM EDT Tomi Slaughter CCMElver documented in this encounter Ordered Prescriptions Prescription Sig Dispense Quantity Refills Last Filled Start Date End Date levoFLOXacin (LEVAQUIN) 750 mg Oral Tablet Take 1 Tab by mouth daily for 7 days. 7 Tab 04/17/2019 04/20/2019 documented in this encounter Plan of Treatment Upcoming Encounters Date Type Department Care Team (Late st Contact Info) Description 05/16/2024 9:30 AM EST Office Visit [facility] [address] [place] [phone] Gilda Francis PA [address] [place] [address] documented as of this encounter Visit Diagnoses Diagnosis UTI (urinary tract infection), uncomplicated- Primary Urinary tract infection, site not specified documented in this encounter Additional Health Concerns Assessment Noted Time A fall risk assessment has been complete d for the patient 12/06/2018 7:30 AM EDT documented as of this encounter Care Teams Electron Gun Inspector Relationship Specialty Start Date End Date Mann Irene MD [place] [phone] PCP - General Internal Medicine 08/23/12 07/13/22 documented as of this encounter
--- OUTSIDE RECORDS SUMMARY | 2024-03-27 15:04 | XMS_ITS | Encounter Summary ---
Author Organization [place] [address] Care Team Providers Care Furniture Servicer Name Role Phone Mann Irene MD Primary Care Provider Reason for Visit * Reason Comments Urinary Tract Infection on and off since january Encounter Details Date Type Department Care Team (Late st Contact Info) Description 04/15/2019 9:00 AM EST Office Visit [facility] [place] [address] [place] [address] Ramandeep Noriega APRN [address] [place] [address] Recurrent UTI (urinary tract infection) (Primary Dx); Dysuria Social History Tobacco Use [...] Sign Reading Time Taken Comments Blood Pressure 128/86 04/15/2019 9:05 AM EST Pulse 100 04/15/2019 9:05 AM EST Temperature 36.8 ??C (98.3 ??F) 04/15/2019 9:05 AM ES T Respiratory Rate 16 04/15/2019 9:05 AM EST Oxygen Saturation 98% 04/15/2019 9:05 AM EST Inhaled Oxygen Concentration - - Weight 79.4 kg (175 lb) 04/15/2019 9:05 AM EST Height 154.9 cm (5' 1 ) 04/15/2019 9:05 AM EST Body Mass Index 33.07 04/15/2019 9:05 AM EST documented in this encounter Functional [...] Refills Last Filled Start Date End Date mupirocin (BACTROBAN) 2 % Top Ointment Apply topically 3 times daily for 14 days. 1 Tube 04/15/2019 9 nitrofurantoin, macrocrystal-monoh ydrate, (MACROBID) 100 mg Oral CapsuleIndications :Recurrent UTI (urinary tract infection) Take 1 Cap by mouth 2 times daily for 10 days. 20 Cap 04/15/2019 9 documented in this encounter Progress Notes * Ramandeep Noriega APRN - 04/15/2019 9:00 AM EST Assessment Diagnoses and all orders for this visit: Recurrent UTI (urinary tract infection) - nitrofurantoin, macrocrystal-monohydrate, (MACROBID) 100 mg Oral Capsule; Take 1 Cap by mouth 2 times daily for 10 days. Dispense: 20 Cap; Refill: 0 Dysuria - POCT URINALYSIS DIPSTICK - URINE CULTURE (NO STAIN); Future as above. No distress. No fever. No flank pain. Will treat with 10-day Macrobid and follow-up on culture. To followup one week after treatment is complete to get follow-up culture to ensure complete resolution. Patient agreeable with plan. Progress Note: Vitals: 04/15/19 0905 BP: 128/86 Pulse: 100 Resp: 16 Temp: 98.3 ??F (36.8 ??C) TempSrc: Temporal SpO2: 98% Weight: 175 lb (79.4 kg) Height: 5' 1 (1.549 m) SUBJECTIVE: Chief Complaint Patient presents with ??? Urinary Tract Infection on and off since january HPI: patient presents to office with one week hx of dysuria, urgency, frequency and suprapubic discomfort. No fever. No flank pain. No nausea, vomiting or diarrhea. Has had sx off and on for 3 months. Treated for UTI x2. Has had poor follow-up due to multiple surgeries including cataracts and TKR. Review of Systems Constitutional: Negative for fever. Respiratory: Negative for cough, shortness of breath and wheezing. Cardiovascular: Negative for chest pain, palpitations and leg swelling. Gastrointestinal: Negative for abdominal pain, constipation, diarrhea and vomiting. Genitourinary: Positive for dysuria and urgency. Musculoskeletal: Negative for myalgias. Skin: Negative for rash and wound. Hematological: Negative for adenopathy. Does not bruise/bleed easily. OBJECTIVE: Results for orders placed or performed in visit on 04/15/19 POCT URINALYSIS DIPSTICK Result Value Ref Range Color, UA yellow CLEAR,YELLOW,ORANGE,RUST Clarity, UA cloudy CLEAR,CLOUDY Glucose, UA neg G/DL% Bilirubin, UA neg POS/NEG Ketones, UA neg POS/NEG Spec Grav, UA 1.030 1.001 - 1.035 G/DL Blood, UA +++ POS/NEG pH, UA 8 5.0 - 8 Protein, UA neg POS/NEG Urobilinogen, UA neg 0.2 - 1.0 MG/DL Leukocytes, UA +++ POS/NEG Nitrite, UA neg POS/NEG UA Appear POC Lot Number Expiration Date SeriAl # Physical Exam Constitutional: Appearance: She is well-developed. [...] Palpations: Abdomen is soft. Tenderness: There is tenderness in the suprapubic area. There is no guarding or rebound. Lymphadenopathy: [...] AM EST Office Visit [facility] [address] [place] [address] Gilda Francis PA [address] [place] [address] documented as of this encounter Procedures Procedure Name Priority Date/Time Associated Diagnosis Comments URINE CULTURE (NO STAIN) Routine 04/15/2019 9:30 AM EST Dysuria POCT URINALYSIS DIPSTICK Routine 04/15/2019 9:05 AM EST Dysuria documented in this encounter Results * (ABNORMAL) URINE CULTURE (NO STAIN) (04/15/2019 9:30 AM EST) Culture Positive Growth(A) 04/17/2019 10:26 AM EST [facility]REFERRED [facility] Culture >[id number] CFU/mL Proteus mirabilis SUSCEPTIBIL ITY RESULT 04/17/2019 10:26 AM EST [facility] Urine URINE SPECIMEN COLLECTION, CLEAN CATCH / Unknown 04/15/2019 9:30 AM EST 04/15/2019 9:30 AM EST Narrative Organism Antibiotic Method Susceptibility Proteus mirabilis Amikacin SUSCEPTIBILITY RESULT <=16 ug/mL: Susceptible Proteus mirabilis Amoxicillin/Clavulanate SUSCEPTIBILI TY RESULT <=4/2 ug/mL: Susceptible Proteus mirabilis Ampicillin SUSCEPTIBILITY RESULT <=8 ug/mL: Susceptible Proteus mirabilis Ampicillin/Sulbactam SUSCEPTIBILITY RESULT <=1/0.5 ug/mL: Susceptible Proteus mirabilis Aztreonam SUSCEPTIBILITY RESULT <=4 ug/mL: Susceptible Proteus mirabilis Cefazolin SUSCEPTIBILITY RESULT <=2 ug/mL: Susceptible Proteus mirabilis Cefepime SUSCEPTIBILITY RESULT Proteus mirabilis Cefotaxime SUSCEPTIBILITY RESULT Proteus mirabilis Cefoxitin SUSCEPTIBILITY RESULT <=8 ug/mL: Susceptible Proteus mirabilis Ceftazidime SUSCEPTIBILITY RESULT Proteus mirabilis Ceftriaxone SUSCEPTIBILITY RESULT Proteus mirabilis Cefuroxime SUSCEPTIBILITY RESULT Proteus mirabilis Ciprofloxacin SUSCEPTIBILITY RESULT <=1 ug/mL: Susceptible Proteus mirabilis Ertapenem SUSCEPTIBILITY RESULT <=0.5 ug/mL: Susceptible Proteus mirabilis Gentamicin SUSCEPTIBILITY RESULT 2 ug/mL: Susceptible Proteus mirabilis Imipenem SUSCEPTIBILITY RESULT Proteus mirabilis Levofloxacin SUSCEPTIBILITY RESULT <=0.25 ug/mL: Susceptible Proteus mirabilis Meropenem SUSCEPTIBILITY RESULT <=1 ug/mL: Susceptible Proteus mirabilis Nitrofurantoin SUSCEPTIBILITY RESULT Proteus mirabilis Piperacillin/Tazobactam SUSCEPTIBILI TY RESULT <=4 ug/mL: Susceptible Proteus mirabilis Tetracycline SUSCEPTIBILITY RESULT Proteus mirabilis Tigecycline SUSCEPTIBILITY RESULT Proteus mirabilis Tobramycin SUSCEPTIBILITY RESULT 2 ug/mL: Susceptible Proteus mirabilis Trimethoprim/Sulfame tho xazole SUSCEPTIBILITY RESULT <=2/38 ug/mL: Susceptible Ramandeep Noriega APRN MICROBIOLOGY - GENERAL ORDE RABOMER Final Result Performing Organization Address [facility] Co de Phone Number [facility], [address] , [place] [address] * (ABNORMAL) POCT URINALYSIS DIPSTICK (04/15/2019 9:05 AM EST) Color, UA yellow CLEAR,YELL OW,ORANGE, RUST [facility] Clarity, UA cloudy CLEAR,CLOU DY [facility] Glucose, UA neg G/DL% [facility] Bilirubin, UA neg POS/NEG [facility] Ketones, UA neg POS/NEG SEP envelope machine operator Grav, UA 1.030 1.001 - 1.035 G/DL [facility] Blood, UA +++ POS/NEG [facility] pH, UA 8 5.0 - 8 [facility] Protein, UA neg POS/NEG [facility] Urobilinogen, UA neg 0.2 - 1.0 MG/DL [facility] Leukocytes, UA +++ POS/NEG [facility] Nitrite, UA neg POS/NEG [facility] UA Appear POC [facility] Lot Number [facility]P [facility] Expiration Date SEP [facility] SeriAl # [facility] Urine 04/15/2019 9:05 AM EST Ramandeep Noriega APRN POINT OF CARE TEST ORDERABL ES Final Result Performing Organization Address [facility] Co de Phone Number [facility] documented in this encounter Visit Diagnoses Diagnosis Recurrent UTI (urinary tract infection)- Primary Urinary tract infection, site not specified Dysuria documented in this encounter Discontinued Medications Medication Sig Discontinue Reason Start Date End Da te difluprednate (DUREZOL) 0.05 % Opht Drops Place 1 Drop into the left eye 2 times daily. Can substitute Inveltys or Prednisolone DELETE- Entered in Error 03/14/2019 04/15/2019 sulfamethoxazole-tri methoprim (BACTRIM DS) 800-160 mg Oral Tablet TAKE 1 TABLET BY MOUTH EVERY 12 HOURS FOR 5 DAYS DELETE- Entered in Error 02/21/2019 04/15/2019 moxifloxacin (VIGAMOX) 0.5 % Opht Drops Place 1 Drop into the left eye 2 times daily. DELETE- Entered in Error 03/14/2019 04/15/2019 mupirocin (BACTROBAN) 2 % Top Ointment Apply topically 3 times daily for 14 days. DELETE-Duplicate 04/15/2019 04/15/2019 documented as of this encounter Additional Health Concerns Assessment Noted Time A fall risk assessment has been complete d for the patient 12/06/2018 7:30 AM EDT documented as of this encounter Care Teams Furniture Servicer Relationship Specialty Start Date End Date Mann Irene MD [address] [place] [address] PCP - General Internal Medicine 08/23/12 07/13/22 documented as of this encounter
--- OUTSIDE RECORDS SUMMARY | 2024-03-27 15:04 | XMS_ITS | Encounter Summary ---
Author Organization [place] [address] Care Team Providers Care Manager Ent Name Role Phone Mann Irene MD Primary Care Provider [phone] Reason for Visit * Reason Onset Date Comments Other 10/11/2019 Encounter Details Date Type Department Care Team (Late st Contact Info) Description 10/11/2019 Telephone [facility] [address] [address] Oralia Krueger MA Other Social [...] Telephone Encounter - Oralia Krueger MA - 10/12/2019 9:02 AM EDT Tried to call the patient again regarding her surgery. No answer. No voicemail set up. * Telephone Encounter - Oralia Krueger MA - 10/11/2019 3:06 PM EDT Tried to leave message on phone. No vm is set up. Will try again. documented in this encounter Plan of Treatment Upcoming Encounters Date Type Department Care Team (Late st Contact Info) Description 05/16/2024 9:30 AM EST Office Visit [facility] [address] [place] [address] Gilda Francis PA [address] [place] [address] documented as of this encounter Visit Diagnoses Not on filedocumented in this encounter Additional Health Concerns Assessment Noted Time A fall risk assessment has been complete d for the patient 12/06/2018 7:30 AM EDT documented as of this encounter Care Teams Manager Ent Relationship Specialty Start Date End Date Mann Irene MD [address] [place] [phone] PCP - General Internal Medicine 08/23/12 07/13/22 documented as of this encounter
--- OUTSIDE RECORDS SUMMARY | 2024-03-27 15:04 | XMS_ITS | Encounter Summary ---
Author Organization [facility] [place] [address] Care Team Providers Care Tetryl Screen Operator Name Role Phone Mann Irene MD Primary Care Provider [phone] Reason for Visit * Reason Onset Date Comments Other 10/19/2019 Encounter Details Date Type Department Care Team (Late st Contact Info) Description 10/19/2019 Telephone [facility] [address] [address] Oralia Krueger MA Other Social [...] Telephone Encounter - Oralia Krueger MA - 10/19/2019 12:04 PM EDT Called PCP office regarding clearance. They are suppose to get Back with me. documented in this encounter Plan of Treatment Upcoming Encounters Date Type Department Care Team (Late st Contact Info) Description 05/16/2024 9:30 AM EST Office Visit [facility] [address] [place] [address] Gilda Francis PA [address] [place] [address] documented as of this encounter Visit Diagnoses Not on filedocumented in this encounter Additional Health Concerns Assessment Noted Time A fall risk assessment has been complete d for the patient 12/06/2018 7:30 AM EDT documented as of this encounter Care Teams Tetryl Screen Operator Relationship Specialty Start Date End Date Mann [place] [address] [address] [place] [address] PCP - General Internal Medicine 08/23/12 07/13/22 documented as of this encounter
--- OUTSIDE RECORDS SUMMARY | 2024-03-27 15:04 | XMS_ITS | Encounter Summary ---
Author Organization [place] [address] Care Team Providers Care Pipe Recovery Specialist Name Role Phone Mann Irene MD Primary Care Provider [phone] Encounter Details Date Type Department Care Team (Late st Contact Info) Description 08/09/2019 Orders Only [facility] [address] [place] [address] Elida Pavon CCMA Seasonal allergic rhinitis due to pollen Social [...] have Coronavirus / COVID-19? No / Unsure 08/04/2019 9:43 AM EDT documented as of this encounter Functional Status * Is the person deaf or does he/she have serious difficulty hearing? Answer Date of Assessment Author No 12/06/2018 7:32 AM EDT Tomi Slaughter CCMA * Is the person blind or does he/she have serious difficulty seeing even when wearing glasses? Answer Date of Assessment Author No 12/06/2018 7:32 AM CAITTomi José CCMA * Does this person have serious difficulty walking or climbing stairs? Answer Date of Assessment Author No 12/06/2018 7:32 AM CAITDavin SukhjinderTomi CCMA * Does this person have difficulty dressing or bathing? Answer Date of Assessment Author No 12/06/2018 7:32 AM CAITTomi José CCMA * Because of a physical, mental or emotional condition, does this person have difficulty doing errands alone such as visiting a doctor's office or shopping? Answer Date of Assessment Author No 12/06/2018 7:32 AM CAITDavin LeticiaTomi olson CCMA documented as of this encounter Mental Status * Because of a physical, mental or emotional condition, does this person have serious difficulty concentrating, remembering or making decisions? Answer Entry Date Author No 12/06/2018 7:32 AM Tomi Huggins CCMA documented in this encounter Ordered Prescriptions Prescription Sig Dispense Quantity Refills Last Filled Start Date End Date loratadine-pseudoep hedrine (LORATADINE-PSEUDOE PHEDRINE) 10-240 mg Oral Tablet Sustained Release 24 hrIndications:Seaso nal allergic rhinitis due to pollen Take 1 Tab by mouth daily. 30 Tab 2 08/09/2019 02/05/2021 documented in this encounter Plan of Treatment Upcoming Encounters Date Type Department Care Team (Late st Contact Info) Description 05/16/2024 9:30 AM EST Office Visit [facility] [address] [place] [address] Gilda Francis PA [address] [place] [address] documented as of this encounter Visit Diagnoses Diagnosis Seasonal allergic rhinitis due to pollen documented in this encounter Discontinued Medications Medication Sig Discontinue Reason Start Date End Da te ALLERGY RELIEF D-24HR 10-240 mg Oral Tablet Sustained Release 24 hr Take 1 Tab by mouth every morning. DELETE-Duplicate 01/01/2019 08/09/2019 documented as of this encounter Additional Health Concerns Assessment Noted Time A fall risk assessment has been complete d for the patient 12/06/2018 7:30 AM EDT documented as of this encounter Care Teams Pipe Recovery Specialist Relationship Specialty Start Date End Date Mann Irene MD [address] [place] [id number] PCP - General Internal Medicine 08/23/12 07/13/22 documented as of this encounter
--- OUTSIDE RECORDS SUMMARY | 2024-03-27 15:04 | XMS_ITS | Encounter Summary ---
Author Organization [place] [address] Care Team Providers Care Vet Assistant Name Role Phone Mann Irene MD Primary Care Provider [phone] Encounter Details Date Type Department Care Team (Late st Contact Info) Description 07/25/2019 Orders Only [facility] [address] [place] [address] Shaniqua Bustillo MA Urinary tract [...] times daily for 7 days. 14 Tab 07/25/2019 08/01/2019 documented in this encounter Plan of Treatment Upcoming Encounters Date Type Department Care Team (Late st Contact Info) Description 05/16/2024 9:30 AM EST Office Visit [facility] [address] [place] [address] Gilda Francis PA [address] [place], [place] [id number] documented as of this encounter Visit Diagnoses Diagnosis Urinary tract infection without hematuria, site unspecified- Primary documented in this encounter Additional Health Concerns Assessment Noted Time A fall risk assessment has been complete d for the patient 12/06/2018 7:30 AM EDT documented as of this encounter Care Teams Vet Assistant Relationship Specialty Start Date End Date Mann [place] [address] [place] [phone] PCP - General Internal Medicine 08/23/12 07/13/22 documented as of this encounter
--- OUTSIDE RECORDS SUMMARY | 2024-03-27 15:04 | XMS_ITS | Encounter Summary ---
Author Organization [facility] [place] [address] Care Team Providers Care Tin Roofer Name Role Phone Mann Irene MD Primary Care Provider [phone] Encounter Details Date Type Department Care Team (Latest Contact Info) Description 08/04/2019 Travel Social History Tobacco Use Types Packs/Day [...] [facility] [address] [place] [id number] Gilda Francis PA [address] [place] [address] documented as of this encounter Visit Diagnoses Not on filedocumented in this encounter Additional Health Concerns Assessment Noted Time A fall risk assessment has been complete d for the patient 12/06/2018 7:30 AM EDT documented as of this encounter Care Teams Tin Roofer Relationship Specialty Start Date End Date Mann Irene MD [address] [facility] [address] PCP - General Internal Medicine 08/23/12 07/13/22 documented as of this encounter
--- OUTSIDE RECORDS SUMMARY | 2024-03-27 15:04 | XMS_ITS | Encounter Summary ---
Author Organization [facility] [place] [address] Care Team Providers Care Medical Billing Instructor Name Role Phone Mann Irene MD Primary Care Provider [phone] Reason for Visit * Reason Onset Date Comments Other 08/10/2019 Encounter Details Date Type Department Care Team (Late st Contact Info) Description 08/10/2019 Telephone [facility] [address] [address] Oralia Krueger MA Other Social [...] Assessment Author No 12/06/2018 7:32 AM EDT Grooms, M ichelle, CCMA * [...] No 12/06/2018 7:32 AM EDTomi José CLAUDIA documented as of this encounter Mental Status * Because of a physical, mental or emotional condition, does this person have serious difficulty concentrating, remembering or making decisions? Answer Entry Date Author No 12/06/2018 7:32 AM EDT Tomi Slaughter CLAUDIA documented in this encounter Miscellaneous Notes * Telephone Encounter - Oralia Krueger MA - 08/11/2019 8:25 AM EDT Moved patient to September. * Telephone Encounter - Amari Wheeler MD - 08/11/2019 8:24 AM EDT She can be postponed. [facility] Urology Amari Wheeler MD [facility] Urology [address] [place] [address] * Telephone Encounter - Oralia Krueger MA - 08/11/2019 7:45 AM EDT I think she is worried about coming to the office or near the hospital. * Telephone Encounter - Amari Wheeler MD - 08/10/2019 3:49 PM EDT Images from the original note were not included. Attempted to reach patient unable to leave message. She can postpone her cysto and just drop off a urine specimen at her convenience. [facility]rology Amari Wheeler MD [facility] Urology [address] [place] [address] * Telephone Encounter - Oralia Krueger MA - 08/10/2019 2:31 PM EDT Patient would like to talk with you prior to coming in for her cysto tomorrow. Please call. documented in this encounter Plan of Treatment Upcoming Encounters Date Type Department Care Team (Late st Contact Info) Description 05/16/2024 9:30 AM EST Office Visit [facility] [address] [place] [address] Gilda Francis PA [address] [place], [place] [id number] documented as of this encounter Visit Diagnoses Not on filedocumented in this encounter Additional Health Concerns Assessment Noted Time A fall risk assessment has been complete d for the patient 12/06/2018 7:30 AM EDT documented as of this encounter Care Teams Medical Billing Instructor Relationship Specialty Start Date End Date Mann [place] [address] [place] [address] PCP - General Internal Medicine 08/23/12 07/13/22 documented as of this encounter
--- OUTSIDE RECORDS SUMMARY | 2024-03-27 15:04 | XMS_ITS | Encounter Summary ---
Author Organization [place] [address] Care Team Providers Care Malthouse Laborer Name Role Phone Mann Irene MD Primary Care Provider [phone] Reason for Visit * Reason Onset Date Comments Other 07/25/2019 Encounter Details Date Type Department Care Team (Late st Contact Info) Description 07/25/2019 Telephone [facility] NPT[facility] [address] [place] [address] Amari Wheeler MD [address] [place] [address] Other Social History Tobacco Use Types Packs/Day [...] 7:32 AM EDT Tomi Slaughter, CLAUDIA * Does this person have serious difficulty walking or climbing stairs? Answer Date of Assessment Author No 12/06/2018 7:32 AM EDT Tomi Slaughter, CLAUDIA * Does this person have difficulty [...] Miscellaneous Notes * Telephone Encounter - Rosa Hamm RMA - 07/25/2019 4:04 PM EDT This was regarding results. Please see result notes. * Telephone Encounter - Rosa Hamm RMA - 07/25/2019 12:55 PM EDT Pt calling stated that she received a call today and no body left a message. Informed pt that I will find out and give her a call back. Pt stated that the best number to reach her at is [phone]. documented in this encounter Plan of Treatment Upcoming Encounters Date Type Department Care Team (Late st Contact Info) Description 05/16/2024 9:30 AM EST Office Visit [facility] [address] [place] [address] Gilda Francis PA [address] [place] [address] documented as of this encounter Visit Diagnoses Not on filedocumented in this encounter Additional Health Concerns Assessment Noted Time A fall risk assessment has been complete d for the patient 12/06/2018 7:30 AM EDT documented as of this encounter Care Teams Malthouse Laborer Relationship Specialty Start Date End Date Mann Irene MD [address] [place] [address] PCP - General Internal Medicine 08/23/12 07/13/22 documented as of this encounter
--- OUTSIDE RECORDS SUMMARY | 2024-03-27 15:04 | XMS_ITS | Encounter Summary ---
Author Organization [place] [address] Care Team Providers Care Residential Carpenter Name Role Phone Mann Irene MD Primary Care Provider [phone] Reason for Visit * Reason Onset Date Comments Medication Refill 08/09/2019 Encounter Details Date Type Department Care Team (Late st Contact Info) Description 08/09/2019 Telephone [facility] [place] [facility] [place] [address] [address] [address] [place] [address] [address] [place] [address] Medication Refill Social History Tobacco Use [...] Assessment Author No 12/06/2018 7:32 AM EDT oTmi Slaughter ASHLEY knutsonElver * Is the person blind or does he/she have serious difficulty seeing even when wearing glasses? Answer Date of Assessment Author No 12/06/2018 7:32 AM EDT Tomi Slaughter deysiroxanne ASHLEYA * Does this person have serious difficulty walking or climbing stairs? Answer Date of Assessment Author No 12/06/2018 7:32 AM EDT Tomi Slaughter eamon ASHLEYA * Does this person have difficulty dressing or bathing? Answer Date of Assessment Author No 12/06/2018 7:32 AM EDT Tomi Slaughter deysiroxanne ASHLEYA * Because of a physical, mental [...] encounter Miscellaneous Notes * Telephone Encounter - Elida Valentino CCMA - 08/09/2019 9:39 AM EDT Refill sent to [facility] * Telephone Encounter - Noelle Mann - 08/09/2019 9:23 AM EDT Medication Refill Who is requesting the refill: Patient Medication(s)Name/Dosage/Frequency: loratadine-pseudoephedrine (LORATADINE- PSEUDOEPHEDRINE) 10-240 mg Oral Tablet Sustained Release 24 hr Did patient contact the pharmacy first: N/A How many days left on hand: 0 Future appt date w/ prescribing provider: None Pharmacy & Location: [facility] Additional Notes: documented in this encounter Plan of Treatment Upcoming Encounters Date Type Department Care Team (Late st Contact Info) Description 05/16/2024 9:30 AM EST Office Visit [facility] [address] [place] [address] Gilda Francis PA [address] [place] [address] documented as of this encounter Visit Diagnoses Not on filedocumented in this encounter Additional Health Concerns Assessment Noted Time A fall risk assessment has been complete d for the patient 12/06/2018 7:30 AM EDT documented as of this encounter Care Teams Residential Carpenter Relationship Specialty Start Date End Date Mann Irene MD [address] [place] [address] PCP - General Internal Medicine 08/23/12 07/13/22 documented as of this encounter
--- OUTSIDE RECORDS SUMMARY | 2024-03-27 15:04 | XMS_ITS | Encounter Summary ---
Author Organization [place] [address] Care Team Providers Care Ore Miner Blasting Name Role Phone Mann Irene MD Primary Care Provider [phone] Reason for Referral * Consultation (Routine) - Closed Specialty Diagnoses / Procedures Referred By Ramona mcdaniel Referred To Contact Urology Diagnoses Recurrent UTI (urinary tract infection) Mann Irene MD [address] [place] [address] Phone: tel: fax: Amari Wheeler MD Phone: tel: fax: Referral ID Status Reason Start Date Expiration Date Visits Re quested Visits Authorized [id number] Closed 07/04/2019 07/03/2020 99 [phone] Reason for Visit * Reason Onset Date Comments Referral 07/04/2019 Encounter Details Date Type Department Care Team (Late st Contact Info) Description 07/04/2019 Telephone [facility] [place] [address] Mann Irene MD [place] [facility] [place] [address] Referral Social History Tobacco Use Types Packs/Day [...] Telephone Encounter - Brittany Slaughter CCMA - 07/04/2019 1:43 PM EST Referral entered for dr. Wheeler Number given to pt * Telephone Encounter - Palma Huntley - 07/04/2019 12:29 PM EST Referral Request Who is requesting the referral: Patient What type of referral: Urologist What is the reason / diagnosis for this referral: patient advised she has been having UTI off and on since December. Have you been seen by your PCP for this issue: Yes Does patient have a preference on a group/provider: No Preferred Provider/Group Name: Preferred Provider/Group Phone Number: Preferred Provider/Group Fax Number: Additional Information: Patient advised keeps getting UTI's will be seen get an antibotic and a week later will have another. At this point she would like to see if a specialist can figure out what is going on. documented in this encounter Plan of Treatment Upcoming Encounters Date Type Department Care Team (Late st Contact Info) Description 05/16/2024 9:30 AM EST Office Visit [facility] [address] [place] [address] Gilda Francis PA [address] [place] [address] Scheduled Referrals Name Type Priority Associated Diagnoses Orde r Schedule AMB REFERRAL TO UROLOGY Outpatient Referral Routine Recurrent UTI (urinary tract infection) Ordered: 07/04/2019 documented as of this encounter Visit Diagnoses Diagnosis Recurrent UTI (urinary tract infection)- Primary Urinary tract infection, site not specified documented in this encounter Additional Health Concerns Assessment Noted Time A fall risk assessment has been complete d for the patient 12/06/2018 7:30 AM EDT documented as of this encounter Care Teams Ore Miner Blasting Relationship Specialty Start Date End Date Mann Irene MD [address] [place] [address] PCP - General Internal Medicine 08/23/12 07/13/22 documented as of this encounter
--- OUTSIDE RECORDS SUMMARY | 2024-03-27 15:04 | XMS_ITS | Encounter Summary ---
Author Organization [facility] [place] [address] Care Team Providers Care Freight Loader Name Role Phone Mann Irene MD Primary Care Provider [phone] Encounter Details Date Type Department Care Team (Latest Contact Info) Description 07/20/2019 Travel Social History Tobacco Use Types Packs/Day [...] EST Office Visit [facility] [address] [place] [address] Gilda Francis PA [address] [place] [address] documented as of this encounter Visit Diagnoses Not on filedocumented in this encounter Additional Health Concerns Assessment Noted Time A fall risk assessment has been complete d for the patient 12/06/2018 7:30 AM EDT documented as of this encounter Care Teams Freight Loader Relationship Specialty Start Date End Date Mann Irene MD [address] [place] [id number] PCP - General Internal Medicine 08/23/12 07/13/22 documented as of this encounter
--- OUTSIDE RECORDS SUMMARY | 2024-03-27 15:04 | XMS_ITS | Encounter Summary ---
Author Organization [place] [address] Care Team Providers Care Liquid Waste Treatment Plant Operator Name Role Phone Mann Irene MD Primary Care Provider Encounter Details Date Type Department Care Team (Latest Contact Info) Description 10/10/2019 12:05 PM EDT - 10/10/2019 11:59 PM EDT Hospital Encounter [facility] [address] [place], [place] [id number] Hematuria, unspecified type Discharge Disposition: Home or [...] EST Office Visit [facility] [address] [place] [address] Gilda Francis PA [address] [place] [address] documented as of this encounter Procedures Procedure Name Priority Date/Time Associated Diagnosis Comments XR ABDOMEN AP Routine 10/10/2019 12:18 PM EDT Hematuria, unspecified type documented in this encounter Results * XR ABDOMEN AP (10/10/2019 12:18 PM EDT) Anatomical Region Laterality Modality Abdomen Radiographic Demetra ging 10/10/2019 12:1 8 PM EDT Impressions 10/10/2019 4:58 PM EDT Dominant 1.5 cm stone, right lower pole. - Narrative 10/10/2019 4:58 PM EDT CR, ABDOMEN AP, ??10/10/2019 12:18 PM CLINICAL HISTORY: ??R31.9-Hematuria, [id number] COMPARISON: ??No comparison abdominal films. Prior comparison [...] right hip replacement. Procedure Note Manish Estrada, - 10/10/2019 CR, ABDOMEN AP, 10/10/2019 12:18 PM CLINICAL HISTORY: R31.9-Hematuria, [id number] COMPARISON: No comparison abdominal films. Prior comparisonabdominal/pelvic [...] right lower pole. - Amari Wheeler MD IMG DIAGNOSTIC IMAGING ORDERABLE S Final Result documented in this encounter Visit Diagnoses Diagnosis Hematuria, unspecified type documented in this encounter Additional Health Concerns Assessment Noted Time A fall risk assessment has been complete d for the patient 12/06/2018 7:30 AM EDT documented as of this encounter Care Teams Liquid Waste Treatment Plant Operator Relationship Specialty Start Date End Date Mann [place] [address] [place] [address] PCP - General Internal Medicine 08/23/12 07/13/22 documented as of this encounter
--- OUTSIDE RECORDS SUMMARY | 2024-03-27 15:04 | XMS_ITS | Encounter Summary ---
Author Organization [facility] [place] [address] Care Team Providers Care Internal Grinder Set Up Operator Name Role Phone Mann Irene MD Primary Care Provider Reason for Visit * Reason Onset Date Comments Central Patient Navigator Outreach 09/23/2019 Encounter Details Date Type Department Care Team (Late st Contact Info) Description 09/23/2019 Patient Outreach [facility] [address] [place] [address] Mann [place] [address] Central Patient Navigator Outreach Social History Tobacco Use Types Packs/Day Years [...] Assessment Author No 12/06/2018 7:32 AM EDT SukhjinderTomi CCMElver * Is the person blind or does he/she have serious difficulty seeing even when wearing glasses? Answer Date of Assessment Author No 12/06/2018 7:32 AM EDT Sukhjinder Tomi eamon CCMA * Does this person have serious difficulty walking or climbing stairs? Answer Date of Assessment Author No 12/06/2018 7:32 AM EDT SukhjinderTomi CCMA * Does this person have difficulty dressing or bathing? Answer Date of Assessment Author No 12/06/2018 7:32 AM EDT Sukhjinder Tomi eamon ASHLEYA * Because of a physical, mental or emotional condition, does this person have difficulty doing errands alone such as visiting a doctor's office or shopping? Answer Date of Assessment Author No 12/06/2018 7:32 AM EDT SukhjinderTomi CCMA documented as of this encounter Mental Status * Because of a physical, mental or emotional condition, does this person have serious difficulty concentrating, remembering or making decisions? Answer Entry Date Author No 12/06/2018 7:32 AM CAITDavin Sukhjinder Tomi eamon ASHLEYA documented in this encounter Progress Notes * Eva Monzon - 09/23/2019 3:57 PM EDT Patient Outreach: Appointment Needed Attempt Count: 1st Care Gaps Addressed apple solutions consultant: Annual Wellness Visit Outcome: Annual Wellness Visit Scheduled 12/08/19 documented in this encounter Plan of Treatment Upcoming Encounters Date Type Department Care Team (Late st Contact Info) Description 05/16/2024 9:30 AM EST Office Visit [facility] [address] [place] [address] Gilda Francis PA [address] [place] [address] documented as of this encounter Visit Diagnoses Not on filedocumented in this encounter Additional Health Concerns Assessment Noted Time A fall risk assessment has been complete d for the patient 12/06/2018 7:30 AM EDT documented as of this encounter Care Teams Internal Grinder Set Up Operator Relationship Specialty Start Date End Date Mann Irene MD [address] [place] [id number] PCP - General Internal Medicine 08/23/12 07/13/22 documented as of this encounter
--- OUTSIDE RECORDS SUMMARY | 2024-03-27 15:04 | XMS_ITS | Encounter Summary ---
Author Organization [place] [address] Care Team Providers Care Conservation Agent Name Role Phone Mann Irene MD Primary Care Provider [phone] Reason for Visit * Reason Onset Date Comments Other 10/12/2019 Encounter Details Date Type Department Care Team (Late st Contact Info) Description 10/12/2019 Telephone [facility] [address] [address] Oralia Krueger MA Other Social [...] Encounter - Oralia Krueger MA - 10/12/2019 9:20 AM EDT Spoke with patient. Went over all instructions with patient. Patient To get cleared by PCP and to hold as 5 days prior. Patient is agreeable To this. documented in this encounter Plan of Treatment Upcoming Encounters Date Type Department Care Team (Late st Contact Info) Description 05/16/2024 9:30 AM EST Office Visit [facility] [address] [place] [address] Gilda Francis PA [address] [place] [address] documented as of this encounter Visit Diagnoses Not on filedocumented in this encounter Additional Health Concerns Assessment Noted Time A fall risk assessment has been complete d for the patient 12/06/2018 7:30 AM EDT documented as of this encounter Care Teams Conservation Agent Relationship Specialty Start Date End Date Mann Irene MD [address] [place] [address] PCP - General Internal Medicine 08/23/12 07/13/22 documented as of this encounter
--- OUTSIDE RECORDS SUMMARY | 2024-03-27 15:04 | XMS_ITS | Encounter Summary ---
Author Organization [place] [address] Care Team Providers Care Customs And Immigration Officer Name Role Phone Mann Irene MD Primary Care Provider [phone] Reason for Visit * Reason Comments Medication Refill Encounter Details Date Type Department Care Team (Late st Contact Info) Description 05/20/2019 Refill [facility] [place] [address] [address] Mann Irene MD [...] No 12/06/2018 7:32 AM EDT Leticiawesley Tomi knutson CCMElver documented as of this encounter Mental [...] 2 TIMES DAILY (WITH MEALS) FOR 360 DAYS. 60 Tab 05/20/2019 08/16/2019 documented in this encounter Plan of Treatment Upcoming Encounters Date Type Department Care Team (Late st Contact Info) Description 05/16/2024 9:30 AM EST Office Visit [facility] [address] [place] [address] Gilda Francis PA [address] [place] [address] documented as of this encounter Visit Diagnoses Not on filedocumented in this encounter Discontinued Medications Medication Sig Discontinue Reason Start Date End Da te diclofenac (VOLTAREN) 75 mg Oral Tablet, Delayed Release (E.C.) TAKE 1 TAB BY MOUTH 2 TIMES DAILY (WITH MEALS) FOR 360 DAYS. 03/16/2019 05/20/2019 documented as of this encounter Additional Health Concerns Assessment Noted Time A fall risk assessment has been complete d for the patient 12/06/2018 7:30 AM EDT documented as of this encounter Care Teams Customs And Immigration Officer Relationship Specialty Start Date End Date Mann Irene MD [address] [place] [address] PCP - General Internal Medicine 08/23/12 07/13/22 documented as of this encounter
--- OUTSIDE RECORDS SUMMARY | 2024-03-27 15:04 | XMS_ITS | Encounter Summary ---
Author Organization [place] [address] Care Team Providers Care Section Chief Name Role Phone Mann Irene MD Primary Care Provider [phone] Reason for Visit * Reason Comments Medication Refill Encounter Details Date Type Department Care Team (Late st Contact Info) Description 04/04/2019 Refill [facility] [place] [address] [address] [address] Mann Irene MD [...] 7:32 AM EDT Tomi Slaughter eamon CLAUDIA * Because of a physical, [...] AM EDT Tomi Slaughter eamon CLAUDIA documented in this encounter Ordered Prescriptions Prescription Sig Dispense Quantity Refills Last Filled Start Date End Date atorvastatin (LIPITOR) 10 mg Oral TabletIndications:Pure hypercholesterolemia TAKE 1 TABLET EVERY DAY 90 Tab 9 12/09/19 20 documented in this encounter Plan of Treatment Upcoming Encounters Date Type Department Care Team (Late st Contact Info) Description 05/16/2024 9:30 AM EST Office Visit [facility] [address] [place] [address] Gilda Francis PA [address] [place] [address] documented as of this encounter Visit Diagnoses Diagnosis Pure hypercholesterolemia documented in this encounter Discontinued Medications Medication Sig Discontinue Reason Start Date End Da te atorvastatin (LIPITOR) 10 mg Oral TabletIndications:Pure hypercholesterolemia TAKE 1 TABLET EVERY DAY Reorder 07/12/2018 04/04/2019 documented as of this encounter Additional Health Concerns Assessment Noted Time A fall risk assessment has been complete d for the patient 12/06/2018 7:30 AM EDT documented as of this encounter Care Teams Section Chief Relationship Specialty Start Date End Date Mann [place] [address] [place] [address] PCP - General Internal Medicine 08/23/12 07/13/22 documented as of this encounter
--- OUTSIDE RECORDS SUMMARY | 2024-03-27 15:04 | XMS_ITS | Encounter Summary ---
Author Organization [place] [address] Care Team Providers Care Lpc Name Role Phone Mann Irene MD Primary Care Provider [phone] Reason for Visit * Reason Comments Medication Refill Encounter Details Date Type Department Care Team (Late st Contact Info) Description 08/16/2019 Refill [facility] [place] [address] [address] Mann Irene [place] [address] [place] [address] Medication Refill Social History Tobacco Use [...] 7:32 AM Tomi Huggins deysiroxanne CLAUDIA * Is [...] 12/06/2018 7:32 AM Tomi Huggins deysiroxanne CLAUDIA documented as of this encounter Mental Status * Because of a physical, mental or emotional condition, does this person have serious difficulty concentrating, remembering or making decisions? Answer Entry Date Author No 12/06/2018 7:32 AM Tomi Huggins deysiroxanne CLAUDIA documented in this encounter Ordered Prescriptions Prescription Sig Dispense Quantity Refills Last Filled Start Date End Date diclofenac (VOLTAREN) 75 mg Oral Tablet, Delayed Release (E.C.) TAKE 1 TAB BY MOUTH 2 TIMES DAILY (WITH MEALS) 60 Tab 08/16/2019 09/26/2020 documented in this encounter Plan of Treatment Upcoming Encounters Date Type Department Care Team (Late st Contact Info) Description 05/16/2024 9:30 AM EST Office Visit [facility] [address] [place] [address] Gilda Francis PA [address] [place] [address] documented as of this encounter Visit Diagnoses Not on filedocumented in this encounter Discontinued Medications Medication Sig Discontinue Reason Start Date End Da te diclofenac (VOLTAREN) 75 mg Oral Tablet, Delayed Release (E.C.) TAKE 1 TAB BY MOUTH 2 TIMES DAILY (WITH MEALS) FOR 360 DAYS. 05/20/2019 08/16/2019 documented as of this encounter Additional Health Concerns Assessment Noted Time A fall risk assessment has been complete d for the patient 12/06/2018 7:30 AM EDT documented as of this encounter Care Teams Lpc Relationship Specialty Start Date End Date Mann Irene MD [address] [place], [place] [address] PCP - General Internal Medicine 08/23/12 07/13/22 documented as of this encounter
--- OUTSIDE RECORDS SUMMARY | 2024-03-27 15:04 | XMS_ITS | Encounter Summary ---
Author Organization [place] [address] Care Team Providers Care Clinical Services Specialist Name Role Phone Mann Irene MD Primary Care Provider [phone] Reason for Visit * Reason Onset Date Comments Medication Management 04/20/2019 levoFLOXac in (LEVAQUIN) 750 mg Oral Tablet7 [id number] Encounter Details Date Type Department Care Team (Late st Contact Info) Description 04/20/2019 Telephone [facility] [address] [place], [place] [address] Mann Irene MD [address] [place] [address] Medication Management (levoFLOXacin (LEVAQUIN) 750 mg Oral Tablet7 [id number] ) Social History Tobacco Use Types Packs/Day [...] 7:32 AM Tomi Huggins deysiroxanne CLAUDIA * Does [...] mouth daily for 7 days. 7 Tab 04/20/2019 04/27/2019 documented in this encounter Miscellaneous Notes * Telephone Encounter - Ramandeep Noriega APRN - 04/20/2019 12:13 PM EST Done. Patient in office and notified directly. * Telephone Encounter - Lucia Avalos CMA - 04/20/2019 10:01 AM EST Do you want to fill for her? * Telephone Encounter - Eileen De León - 04/20/2019 9:25 AM EST Patient was seen on Apr 15 . She had a Urine culture done we changed her medication. The patient needs the medication called into [id number] - [place] [address] [address] [facility] - [phone] levoFLOXacin (LEVAQUIN) 750 mg Oral Tablet 7 Tab 0 04/17/2019 04/24/2019 Sig - Route: Take 1 Tab by mouth daily for 7 days. - Oral Sent to pharmacy as: levoFLOXacin 750 mg tablet (LEVAQUIN) E-Prescribing Status: Receipt confirmed by pharmacy (12 documented in this encounter Plan of Treatment Upcoming Encounters Date Type Department Care Team (Late st Contact Info) Description 05/16/2024 9:30 AM EST Office Visit [facility] [address] [place] [address] Gilda Francis PA [address] [place] [address] documented as of this encounter Visit Diagnoses Not on filedocumented in this encounter Discontinued Medications Medication Sig Discontinue Reason Start Date End Da te levoFLOXacin (LEVAQUIN) 750 mg Oral Tablet Take 1 Tab by mouth daily for 7 days. Reorder 04/17/2019 04/20/2019 documented as of this encounter Additional Health Concerns Assessment Noted Time A fall risk assessment has been complete d for the patient 12/06/2018 7:30 AM EDT documented as of this encounter Care Teams Clinical Services Specialist Relationship Specialty Start Date End Date Mann Irene MD [address] [address] PCP - General Internal Medicine 08/23/12 07/13/22 documented as of this encounter
--- OUTSIDE RECORDS SUMMARY | 2024-03-27 15:04 | XMS_ITS | Encounter Summary ---
Author Organization [place] [address] Care Team Providers Care Seed Cone Picker Name Role Phone Mann Irene MD Primary Care Provider [phone] Reason for Referral * MRI/CAT Scan (Routine) - Closed Specialty Diagnoses / Procedures Referred By Ramona mcdaniel Referred To Contact Radiology Diagnoses Recurrent UTI Feeling of incomplete bladder emptying Procedures CT ABDOMEN PELVIS HEMATURIA/RENAL MASS PROTOCOL Amari Wheeler MD Phone: tel: fax: [facility] [address] [place] [address] Phone: tel: Referral ID Status Reason Start Date Expiration Date Visits Re quested Visits Authorized [id number] Closed 07/20/2019 07/19/2020 1 1 Reason for Visit * MRI/CAT Scan (Routine) - Closed Specialty Diagnoses / Procedures Referred By Ramona mcdaniel Referred To Contact Radiology Diagnoses Recurrent UTI Feeling of incomplete bladder emptying Procedures CT ABDOMEN PELVIS HEMATURIA/RENAL MASS PROTOCOL Amari Wheeler MD Phone: tel: [facility] [address] [place] [address] Phone: tel: Referral ID Status Reason Start Date Expiration Date Visits Re quested Visits Authorized [id number] Closed 07/20/2019 07/19/2020 1 1 Encounter Details Date Type Department Care Team (Latest Contact Info) Description 07/22/2019 8:56 AM EDT - 07/22/2019 11:59 PM EDT Hospital Encounter [facility] [address] [place] [address] Amari Wheeler MD [address] [place] [address] Recurrent UTI; Feeling of incomplete bladder emptying Discharge Disposition: Home or Self Care Social [...] EVERY DAY 90 Tab 9 12/09/19 20 diclofenac (VOLTAREN) 75 mg Oral Tablet, Delayed Release (E.C.) TAKE 1 TAB BY MOUTH 2 TIMES DAILY (WITH MEALS) FOR 360 DAYS. 60 Tab 0 08/16/19 20 ergocalciferol (VITAMIN D) 50,000 unit Oral [...] EST Office Visit [facility] [address] [place] [address] Gilda Francis PA [address] [place] [address] documented as of this encounter Procedures Procedure Name Priority Date/Time Associated Diagnosis Comments CT ABDOMEN PELVIS HEMATURIA/RENAL MASS PROTOCOL Routine 07/22/2019 9:57 AM EDT Recurrent UTI Feeling of incomplete bladder emptying CREATININE ISTAT Routine 07/22/2019 9:48 AM EDT documented in this encounter Results * CT ABDOMEN PELVIS HEMATURIA/RENAL MASS PROTOCOL [...] HISTORY: ??Hematuria. ??N39.0-Urinary tract infection, site not [id number] R39.14-Feeling of incomplete bladder [id number] ?? COMPARISON: ??None. PROCEDURE COMMENTS: ??Multi-detector volumetric [...] HISTORY: Hematuria. N39.0-Urinary tract infection, site not [id number] R39.14-Feeling of incomplete bladder [id number] COMPARISON: None. PROCEDURE COMMENTS: Multi-detector volumetric scanning [...] calyceal dilation/hydronephrosis. 3. 3 cm AAA. - us Amari Wheeler MD IMG CT ORDERABLES Final Result * CREATININE ISTAT (07/22/2019 9:48 AM EDT) Creatinine-iST AT 0.6 0.6 - 1.3 mg/dL 07/22/2019 9:49 AM EDT [facility] Blood BLOOD SPECIMEN / Unknown 07/22/2019 9:48 AM EDT 07/22/2019 9:49 AM EDT Amari Wheeler MD POINT OF CARE TEST ORDERABLES Fi nal Result [facility] [address] [place] [id number] documented in this encounter Visit Diagnoses Diagnosis Recurrent UTI Urinary tract infection, site not specified Feeling of incomplete bladder emptying Incomplete bladder emptying documented in this encounter Administered Medications Inactive Administered Medications - up to 1 most recent administrations Medication Order MAR Action Action Date Dose Rate Site iopamidoL (ISOVUE-370) 76 % injection (LOW) 100 mL 100 mL, Intravenous, ONCE PRN, 1 dose, Starting on Thu07/22/19 at 0939, Until Thu07/22/19 at 0957, Radiography/Imaging, Radiology Procedure, VESICANT , CT (Contrasts) Given 07/22/2019 9:57 AM EDT 100 mL Left Arm sodium chloride 0.9% syringe Intravenous, ONCE PRN, 1 dose, Starting on Thu07/22/19 at 0939, Until Thu07/22/19 at 0957, Line Care, Flush every shift or after IV medication, CT (Contrasts) Given 07/22/2019 9:57 AM EDT 10 mL Lef t Arm documented in this encounter Additional Health Concerns Assessment Noted Time A fall risk assessment has been complete d for the patient 12/06/2018 7:30 AM EDT documented as of this encounter Care Teams Seed Cone Picker Relationship Specialty Start Date End Date Mann Irene MD [address] [place] [address] PCP - General Internal Medicine 08/23/12 07/13/22 documented as of this encounter
--- OUTSIDE RECORDS SUMMARY | 2024-03-27 15:04 | XMS_ITS | Encounter Summary ---
Author Organization [place] [address] Care Team Providers Care Managed Services Consultant Name Role Phone Mann Irene MD Primary Care Provider [phone] Reason for Referral * MRI/CAT Scan (Routine) - Closed Specialty Diagnoses / Procedures Referred By Ramona mcdaniel Referred To Contact Radiology Diagnoses Recurrent UTI Feeling of incomplete bladder emptying Procedures CT ABDOMEN PELVIS HEMATURIA/RENAL MASS PROTOCOL Amari Wheeler MD Phone: tel: fax: [facility] [address] [place] [address] Phone: tel: Referral ID Status Reason Start Date Expiration Date Visits Re quested Visits Authorized [id number] Closed 07/20/2019 07/19/2020 1 1 Reason for Visit * Reason Comments New Patient patient states, been having recurrent UTI since december 2018. No other issues * Consultation (Routine) - Closed Specialty Diagnoses / Procedures Referred By Ramona mcdaniel Referred To Contact Urology Diagnoses Recurrent UTI (urinary tract infection) Mann [place] [address] [place] [address] Phone: tel: fax: Amari Wheeler MD Phone: tel: fax: Referral ID Status Reason Start Date Expiration Date Visits Re quested Visits Authorized [id number] Closed 07/04/2019 07/03/2020 99 99 Encounter Details Date Type Department Care Team (Late st Contact Info) Description 07/20/2019 11:30 AM EDT Office Visit [facility] [address] [place] [address] Amari Wheeler MD [address] [place] [address] Recurrent UTI (Primary Dx); Feeling of incomplete bladder emptying Social History Tobacco Use Types Packs/Day Years [...] Sign Reading Time Taken Comments Blood Pressure 124/80 07/20/2019 11:25 AM EDT Pulse - - Temperature - - Respiratory Rate - - Oxygen Saturation - - Inhaled Oxygen Concentration - - Weight 79.4 kg (175 lb) 07/20/2019 11:25 AM EDT Height 154.9 cm (5' 1 ) 07/20/2019 11:25 AM EDT Body Mass Index 33.07 07/20/2019 11:25 AM EDT documented in this encounter Functional [...] Progress Notes * Amari Wheeler MD - 07/20/2019 11:30 AM EDT Images from the original note were not included. [facility] Urology New Patient Visit Stella Hylton 1945 Chief Complaint(s): Chief Complaint Patient presents with ??? New Patient patient states, been having recurrent UTI since december 2018. No other issues HPI: 73 y.o. female No specialty comments available. Cystitis and Pyelonephritis Acute and Chronic (New) How long symptomatic?: Several months Symptoms?: Dysuria yes Frequency yes Hematuria no Odor to urine no Pain? yes Duration: NA Location: NA Severity: NA Modifiers: NA Constipation? Yes Any prior episodes?: None Any prior evaluation or treatment?: None Have any cultures been done?: yes Results: see results Has any diagnostic imaging been done?: No Results: Fever or chills?: no Any other symptoms?: no Comments: None Results for orders placed or performed in visit on 07/20/19 POCT URINALYSIS DIPSTICK Result Value Ref Range Color, UA yellow CLEAR,YELLOW,ORANGE,RUST Clarity, UA clear CLEAR,CLOUDY Glucose, UA neg G/DL% Bilirubin, UA neg POS/NEG Ketones, UA neg POS/NEG Spec Grav, UA 1.025 1.001 - 1.035 G/DL Blood, UA 3+ POS/NEG pH, UA 6.0 5.0 - 8 Protein, UA 1+ POS/NEG Urobilinogen, UA neg 0.2 - 1.0 MG/DL Leukocytes, UA 3+ POS/NEG Nitrite, UA neg POS/NEG UA Appear POC Lot Number Expiration Date SeriAl # POCT BLADDER SCAN Result Value Ref Range Urine Volume (Preservative) 24 ml Past Medical History: Past Medical History: Diagnosis Date ??? Arthritis generalized ??? Does use hearing aid bilateral ??? Hyperlipidemia ??? Kidney stone hx of ??? Motion sickness seasick ??? Osteopenia ??? Urinary tract infection currently on cipro for uti Past Surgical History: Procedure Laterality Date ??? CATARACT REMOVAL Right 02/28/2019 RIGHT EYE CATARACT EXTRACTION WITH PHACOEMULSIFICATION AND INTRAOCULAR LENS; Surgeon: Conor Ramirez MD; Location: PSYCHIATRIC; Service: Ophthalmology ??? CATARACT REMOVAL Left 03/14/2019 LEFT EYE CATARACT EXTRACTION WITH PHACOEMULSIFICATION AND INTRAOCULAR LENS; Surgeon: Conor Ramirez MD; Location: PSYCHIATRIC; Service: Ophthalmology ??? COLONOSCOPY ??? HEMORRHOID SURGERY ??? HIP ARTHROPLASTY Right 02/16/2014 RIGHT TOTAL HIP REPLACEMENT; Surgeon: Bruce Oh MD; Location: [facility] OR; Service: Orthopedics ??? HYSTERECTOMY complete ??? LUMBAR DISC SURGERY 11/03/2012 Surgeon: Elza Bautista MD; Location: [facility]; Service: ??? TOTAL KNEE ARTHROPLASTY Left 12/28/2018 left knee total replacement; Surgeon: Bruce Oh MD; Location: [facility]; Service: Orthopedics Current Outpatient Medications Medication Sig Dispense Refill ??? ALLERGY RELIEF D-24HR 10-240 mg Oral Tablet Sustained Release 24 hr Take 1 Tab by mouth every morning. 0 ??? aspirin 81 mg Oral Tablet, Delayed Release (E.C.) Take 1 Tab by mouth every morning. ??? atorvastatin (LIPITOR) 10 mg Oral Tablet TAKE 1 TABLET EVERY DAY 90 Tab 0 ??? diclofenac (VOLTAREN) 75 mg Oral Tablet, Delayed Release (E.C.) TAKE 1 TAB BY MOUTH 2 TIMES DAILY (WITH MEALS) FOR 360 DAYS. 60 Tab 0 ??? difluprednate (DUREZOL) 0.05 % Opht Drops Place 1 Drop into the right eye 2 times daily. Can substitute Inveltys or Prednisolone 1 mL 0 ??? ergocalciferol (VITAMIN D) 50,000 unit Oral Capsule Take 1 Cap by mouth once a week. 12 Cap 3 ??? moxifloxacin (VIGAMOX) 0.5 % Opht Drops Place 1 Drop into the right eye 2 times daily. 0 ??? tiZANidine (ZANAFLEX) 2 mg Oral Tablet Take 2 Tabs by mouth every 8 hours as needed for Other (muscle relaxant). 60 Tab 0 ??? vit C/E/Zn/coppr/lutein/zeaxan (PRESERVISION AREDS-2 ORAL) Take by mouth 2 times daily. ??? oxyCODONE (ROXICODONE) 5 mg Oral Tablet Take 1-2 Tabs by mouth every 8 hours as needed for Major Surgery/Trauma (G89.18) (moderate/severe 6-10 pain). (Patient not taking: Reported on 03/14/2019) 60 Tab 0 No current facility-administered medications for this visit. Allergies Allergen Reactions ??? Celecoxib Rash Family History: Family History Problem Relation Age of Onset ??? Early Father accident ??? Early Sister ??? Substance Abuse Sister ??? Early Brother accident ??? Early Mother accident ??? Anesth Problems Neg Hx Social History: Social History Socioeconomic History ??? Marital status: [...] Alcohol use: No ??? Drug use: No ROS Constitutional: Fever No Weight loss No Fatigue No Eyes: Blurred Vision No Double vision No Eye pain No Allergies: Hay fever No Stuffy nose No Stuffy ears No Neurological: Tremors No Seizures No Numb/Tingle No Cardiovascular: Chest pain No Poor Circulation No Leg cramps No Skin: Rash No Wart No Sores No Genitourinary: Sex issues no Pelvic Pain no Frequent infxn no Blood & Lymph: Swollen glands No Bleed easily No Swollen ankle No Respiratory: SOB No Wheezes No Cough No Musculoskel: Back pain No Neck pain No Joint pain No PHYSICAL EXAM: DONE WITH MOLD SHEET CLEANER PRESENT Constitutional: Vitals Signs: BP 124/80 (BP Location: Right arm, Patient Position: Sitting) Ht 5' 1 (1.549 m) Wt 175 lb (79.4 kg) LMP (LMP Unknown) BMI 33.07 kg/m?? Appearance: Development Normal Nutrition Good Deformities None Sexual Characteristics: Normal Gastointestinal: Abdominal Organs: Masses None Tenderness None Rigidity None Rebound None CVAT None Hernia: Femoral None Inguinal None Liver and Spleen: Liver No Abnormalities Spleen No Abnormalities Hemoccult Test: Not indicated based on today's history Genitourinary (Level 5 requires 7 of 11 elements): Anus & Perineum: Hemorrhoids No Fissure No Warts No YASIR: Not examined Urethral Meatus: Position Normal Lesion No Discharge No External genitalia: Atrophy No Lesions No Warts No Hirsute No Urethra: Hypermobile No Caruncle No Tender No Mass No Bladder: Distended No Residual NA Tender No Mass No Vagina: Cystocele No Rectocele No Enterocele No Discharge No Uterus: Not examined Adnexa: Not examined Cervix: Tender No Discharge No Lesion No Breasts: Not examined POP-Q : Aa Ba C gh pb tvl Ap Bp Neuro/Psych: Orientation: Time Yes Place Yes Person Yes Mood & Affect: Anxiety No Depressed No Agitated No Skin: Element 1: Pale No Jaundice No Cyanosis No Turgor Good Element 2: Rash No Lesions No Neck & Thyroid: Neck: Symmetric Yes Swelling No Tender No Thyroid: Enlarged No Nodule No Tender No Respiratory: Respiratory Effort: Labored No Diaphragmatic No Abdominal No Cardiovascular: Peripheral: Femorals Symmetric and strong Carotids Symmetric and strong Edema No Varicosities None Lymphatic: Neck: No Abnormalities Groin: No Abnormalities Muskuloskeletal: Digits & Nails: Digits Normal Nails Normal Gait & Station: Gait Normal Station Normal ENT: External: Ears Normal Nose Normal Mouth Normal Hearing: Whisper Test - Good hearing at 3 feet Data: Results for orders placed or performed in visit on 07/20/19 POCT URINALYSIS DIPSTICK Result Value Ref Range Color, UA yellow CLEAR,YELLOW,ORANGE,RUST Clarity, UA clear CLEAR,CLOUDY Glucose, UA neg G/DL% Bilirubin, UA neg POS/NEG Ketones, UA neg POS/NEG Spec Grav, UA 1.025 1.001 - 1.035 G/DL Blood, UA 3+ POS/NEG pH, UA 6.0 5.0 - 8 Protein, UA 1+ POS/NEG Urobilinogen, UA neg 0.2 - 1.0 MG/DL Leukocytes, UA 3+ POS/NEG Nitrite, UA neg POS/NEG UA Appear POC Lot Number Expiration Date SeriAl # POCT BLADDER SCAN Result Value Ref Range Urine Volume (Preservative) 24 ml Labs: Lab results were reviewed in [facility] and pertinent positives are: see synopsis Imaging: Imaging studies (both written report and images on file) were reviewed in [facility] and pertinent positives are: see synopsis Existing Medical Record: Progress Notes, Consults and miscellaneous records were reviewed in [facility] and pertinent positives are: see synopsis Outside paper records reviewed if applicable Assessment/Plan: Stella was seen today for new patient. Diagnoses and all orders for this visit: Recurrent UTI - POCT URINALYSIS DIPSTICK - POCT BLADDER SCAN - URINALYSIS; Future - URINE CULTURE (NO STAIN); Future Feeling of incomplete bladder emptying - POCT BLADDER SCAN Hematuria Urine culture CT urogram Cystoscopy under local anesthesia in office Urine Cytology Recurrent UTI Discussed with patient definition of [...] antibiotics in the future to document infections Patient Education About Cystitis (Bladder Infection) and Pyelonephritis (Kidney Infection) Urinary tract infections commonly respond promptly to oral antibiotics unless contracted in hospital. Drug resistant bacteria are uncommon for community acquired UTIs and common in hospital acquired UTIs. Whenever possible, antibiotic choice should be based on sensitivity testing. The nature of the infection may also determine a particular course of treatment. Four general clinical entities exist: Simple acute cystitis: can be managed without testing so long as systemic symptoms do not co-exist.A 3 to 7 day course of antibiotic is common. Many oral antibiotics may be effective and the patients allergies and past response to treatment may dictate choices. If symptoms resolve promptly, no further testing is needed. Chronic cystitis: may require prolonged treatment of many weeks or months. Cystoscopic examination of the bladder is required to rule out malignancy. Upper tract imaging is required to rule out sequestered infection in diverticula or stones. Culture and sensitivity driven choices are desired but cultures may be negative. Frequent urine testing is required. Simple acute pyelonephritis: can usually be managed as an outpatient. Culture and sensitivity driven antibiotic choice is required. An initial oral antibiotic may be given as culture is obtained and changed as needed when the lab results are available. Failure to respond promptly or initial presentation with toxic symptoms necessitates inpatient care. Pain is common and strong analgesics may be needed. Upper tract imaging and cystoscopy must be performed after resolution to rule out abnormalities of the tract. Chronic pyelonephritis: requires evaluation until the source is found and eradicated. Renal damage is certain otherwise. long-term antibiotics may be required. Multiple interventions and diagnostic test may be needed. Renal function testing must be performed regularly. The patient was encouraged to do their own research and specifically guided to [email or web address] Return: No follow-ups on file. Amari Wheeler MD [facility] Urology [address] [place] [address] 07/20/2019 11:53 AM documented in this encounter Plan of Treatment Upcoming Encounters Date Type Department Care Team (Late st Contact Info) Description 05/16/2024 9:30 AM EST Office Visit [facility] [address] [place] [address] Gilda Francis PA [address] [place] [address] documented as of this encounter Procedures Procedure Name Priority Date/Time Associated Diagnosis Comments URINE CULTURE (NO STAIN) Routine 07/20/2019 2:54 PM EDT Recurrent UTI NON-CASE COORDINATOR CYTOLOGY REQUEST Routine 07/20/2019 2:53 PM EDT Recurrent UTI Feeling of incomplete bladder emptying URINALYSIS Routine 07/20/2019 2:53 PM EDT Recurrent UTI POCT BLADDER SCAN Routine 07/20/2019 11: 37 AM EDT Recurrent UTI Feeling of incomplete bladder emptying POCT URINALYSIS DIPSTICK Routine 07/20/2019 11:37 AM EDT Recurrent UTI documented in this encounter Results * CT [...] HISTORY: ??Hematuria. ??N39.0-Urinary tract infection, site not [id number] R39.14-Feeling of incomplete bladder [id number]-CM ?? COMPARISON: ??None. PROCEDURE COMMENTS: ??Multi-detector volumetric [...] HISTORY: Hematuria. N39.0-Urinary tract infection, site not [id number] R39.14-Feeling of incomplete bladder [id number] COMPARISON: None. PROCEDURE COMMENTS: Multi-detector volumetric scanning [...] MD IMG CT ORDERABLES Final Result * (ABNORMAL) URINE CULTURE (NO STAIN) (07/20/2019 2:54 PM EDT) Culture Positive Growth(A) 07/22/2019 1:47 PM EDT [facility] Culture >[id number] CFU/mL Escherichia coli SUSCEPTIBI LITY RESULT 07/22/2019 1:47 PM EDT [facility] URINE SPECIMEN COLLECTION, CLEAN CATCH / Unknown 07/20/2019 2:54 PM EDT 07/20/2019 2:54 PM EDT Narrative Organism Antibiotic Method Susceptibility Escherichia coli Ampicillin SUSCEPTIBILITY RESULT 4 ug/mL: Susceptible Escherichia coli Ampicillin/Sulbactam SUSCEPTIBILITY R ESULT <=2 ug/mL: Susceptible Escherichia coli Cefazolin SUSCEPTIBILITY RESULT >=64 ug/mL: Resistant Escherichia coli Cefepime SUSCEPTIBILITY RESULT Escherichia coli Cefoxitin SUSCEPTIBILITY RESULT 32 ug/mL: Resistant Escherichia coli Ceftazidime SUSCEPTIBILITY RESULT <=1 ug/mL: Susceptible Escherichia coli Ceftriaxone SUSCEPTIBILITY RESULT <=1 ug/mL: Susceptible Escherichia coli Ciprofloxacin SUSCEPTIBILITY RESULT <=0.25 ug/mL: Susceptible Escherichia coli ESBL SUSCEPTIBILITY RESULT Escherichia coli Ertapenem SUSCEPTIBILITY RESULT <=0.5 ug/mL: Susceptible Escherichia coli Gentamicin SUSCEPTIBILITY RESULT <=1 ug/mL: Susceptible Escherichia coli Imipenem SUSCEPTIBILITY RESULT <=0.25 ug/mL: Susceptible Escherichia coli Levofloxacin SUSCEPTIBILITY RESULT <=0.12 ug/mL: Susceptible Escherichia coli Nitrofurantoin SUSCEPTIBILITY RESULT <=16 ug/mL: Susceptible Escherichia coli Piperacillin/Tazobactam SUSCEPTIBILIT Y RESULT <=4 ug/mL: Susceptible Escherichia coli Tobramycin SUSCEPTIBILITY RESULT <=1 ug/mL: Susceptible Escherichia coli Trimethoprim/Sulfame tho xazole SUSCEPTIBILITY RESULT <=20 ug/mL: Susceptible Amari Wheeler MD MICROBIOLOGY - GENERAL ORDERABLE S Final Result [facility] [address] [facility] , [place] [address] * NON-CASE COORDINATOR CYTOLOGY REQUEST (07/20/2019 2:53 PM EDT) CASE REPORT Non-gynecologi c Cytology ?Case: [id number] ? Authorizing Provider: ??Amari Wheeler MD ?Collected: ? 07/20/2019 1453 ? Ordering Location: ? [facility] ? Received: ?07/20/2019 1453 ? Pathologist: ? Albina Reilly MD ? Specimen: ?Bladder, Urinary ? 07/21/2019 2:09 PM EDT [email or web address] NON-CASE COORDINATOR CYTOLOGY FINAL DIAGNOSIS Urinary bladder washing: - Negative for high grade urothelial carcinoma. - Benign urothelial cells and abundant acute inflammation. 07/21/2019 2:09 PM EDT [email or web address] 07/21/2019 2:09 PM EDT [email or web address] MICROSCOPIC DESCRIPTION Microscopic examination is performed and the findings corroborate the diagnosis. 07/21/2019 2:09 PM EDT [email or web address] GROSS DESCRIPTION Urine, Bladder,Rec'd 90ml Momin fluid.(TP) 07/21/2019 2:09 PM EDT [facility] Urine URINARY BLADDER STRUCTURE / Unknown 07/20/2019 2:53 PM EDT 07/20/2019 2:53 PM EDT us Amari Wheeler MD CYTOLOGY ORDERABLES Final Result [facility] [address] [place] [address] * (ABNORMAL) URINALYSIS (07/20/2019 2:53 PM EDT) UA Color Yellow 07/20/2019 7:34 PM EDT [facility] UA Appear Hazy(A) Clear 07/20/2019 7:34 PM EDT [facility] UA Glucose Negative Negative mg/dL 07/20/2019 7:34 PM EDT [facility] UA Ketones Negative Negative mg/dL 07/20/2019 7:34 PM EDT [facility] UA Blood Moderate(A) Negative 07/20/2019 7:34 PM EDT [facility] UA pH 6.0 5.0 - 8.0 pH 07/20/2019 7:34 PM EDT [facility] UA Protein 30(A) Negative mg/dL 07/20/2019 7:34 PM EDT [facility] UA Urobilinogen Normal <=1 mg/dL 0 7:34 PM EDT [facility] UA Bili Negative Negative 07/20/2019 7:34 PM EDT [facility] UA Nitrite Positive(A) Negative 07/20/2019 7:34 PM EDT [facility] UA Leuk Est Large(A) Negative 07/20/2019 7:34 PM EDT [facility] UA Spec Grav 1.013 1.001 - 1.035 no units 07/20/2019 7:34 PM EDT [facility] Comment:Reference range chong d for random specimens only. UA WBC 87(H) 0 - 4 /HPF 07/20/2019 7:34 PM EDT [facility] UA RBC 45(H) 0 - 3 /HPF 07/20/2019 7:34 PM EDT [facility] UA Squam Epi Few /LPF 07/20/2019 7:34 PM EDT [facility] UA Mucus Trace /LPF 07/20/2019 7:34 PM EDT [facility] UA Bacteria 2+(A) Negative /HPF 07/20/2019 7:34 PM EDT [facility] Urine URINE SPECIMEN COLLECTION, CLEAN CATCH / Unknown 07/20/2019 2:53 PM EDT 07/20/2019 2:53 PM EDT Amari Wheeler MD URINE ORDERABLES Final Result [facility] [address] [facility] , [place] [address] * POCT BLADDER SCAN (07/20/2019 11:37 AM EDT) Urine Volume (Preservative) 24 ml [facility] 07/20/2019 11:3 7 AM EDT Amari Wheeler MD POINT OF CARE IMAGING Final Resu lt [facility] * (ABNORMAL) POCT URINALYSIS DIPSTICK (07/20/2019 11:37 AM EDT) Color, UA yellow CLEAR,YELL OW,ORANGE, RUST [facility] Clarity, UA clear CLEAR,CLOU DY [facility] Glucose, UA neg G/DL% [facility] Bilirubin, UA neg POS/NEG [facility] Ketones, UA neg POS/NEG SE[facility] junior legal 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 Grav, UA 1.025 1.001 - 1.035 G/DL [...] CARE TEST ORDERABLES Fi nal Result [facility] documented in this encounter Visit Diagnoses Diagnosis Recurrent UTI- Primary Urinary tract infection, site not specified Feeling of incomplete bladder emptying Incomplete bladder emptying Recurrent UTI Urinary tract infection, site not specified Feeling of incomplete bladder emptying Incomplete bladder emptying documented in this encounter Additional Health Concerns Assessment Noted Time A fall risk assessment has been complete d for the patient 12/06/2018 7:30 AM EDT documented as of this encounter Care Teams Managed Services Consultant Relationship Specialty Start Date End Date Mann Irene MD [address] [place], [place] [id number] PCP - General Internal Medicine 08/23/12 07/13/22 documented as of this encounter
--- OUTSIDE RECORDS SUMMARY | 2024-03-27 15:04 | XMS_ITS | Encounter Summary ---
Author Organization [place] [address] Care Team Providers Care Court Liaison Name Role Phone Mann Irene MD Primary Care Provider [phone] Reason for Visit * Reason Onset Date Comments Urinary Tract Infection 07/25/2019 Encounter Details Date Type Department Care Team (Late st Contact Info) Description 07/25/2019 Telephone [facility] [place] [address] [address] Mann [place] [address] [place] [address] Urinary Tract Infection Social History Tobacco Use Types Packs/Day Years [...] Telephone Encounter - Jo Saucedo RMA - 07/25/2019 12:51 PM EDT No answer * Telephone Encounter - Mann Irene MD - 07/25/2019 7:56 AM EDT Did she receive a call from urology about urine culture? It did show infection. If she has not heard from them, please let me know so we can treat her. documented in this encounter Plan of Treatment Upcoming Encounters Date Type Department Care Team (Late st Contact Info) Description 05/16/2024 9:30 AM EST Office Visit [facility] [address] [place] [id number] Gilda Francis PA [address] [place] [address] documented as of this encounter Visit Diagnoses Not on filedocumented in this encounter Additional Health Concerns Assessment Noted Time A fall risk assessment has been complete d for the patient 12/06/2018 7:30 AM EDT documented as of this encounter Care Teams Court Liaison Relationship Specialty Start Date End Date Mann Irene MD [address] [place] [address] PCP - General Internal Medicine 08/23/12 07/13/22 documented as of this encounter
--- OUTSIDE RECORDS SUMMARY | 2024-03-27 15:04 | XMS_ITS | Encounter Summary ---
Author Organization [place] [address] Care Team Providers Care Sales Estimator Name Role Phone Mann Irene MD Primary Care Provider Reason for Visit * Reason Comments Medication Refill Encounter Details Date Type Department Care Team (Late st Contact Info) Description 03/16/2019 Refill [facility] [place] [address] [address] Mann [place] [address] [place] [address] Medication [...] Author No 12/06/2018 7:32 AM EDT Leticiawesley CLAUDIA Garcia documented as of this encounter Mental Status [...] (WITH MEALS) FOR 360 DAYS. 60 Tab 03/16/2019 05/20/2019 documented in this encounter Plan of Treatment Upcoming Encounters Date Type Department Care Team (Late st Contact Info) Description 05/16/2024 9:30 AM EST Office Visit [facility] [address] [place] [address] Gilda Francis PA [address] [place] [address] documented as of this encounter Visit Diagnoses Not on filedocumented in this encounter Discontinued Medications Medication Sig Discontinue Reason Start Date End Da te diclofenac (VOLTAREN) 75 mg Oral Tablet, Delayed Release (E.C.) TAKE 1 TAB BY MOUTH 2 TIMES DAILY (WITH MEALS) FOR 360 DAYS. Reorder 01/03/2019 03/16/2019 documented as of this encounter Additional Health Concerns Assessment Noted Time A fall risk assessment has been complete d for the patient 12/06/2018 7:30 AM EDT documented as of this encounter Care Teams Sales Estimator Relationship Specialty Start Date End Date Mann Irene MD [address] [place] [address] PCP - General Internal Medicine 08/23/12 07/13/22 documented as of this encounter
--- OUTSIDE RECORDS SUMMARY | 2024-03-27 15:05 | XMS_ITS | Encounter Summary ---
Author Organization [place] [address] Care Team Providers Care Kiln Fireman Name Role Phone Mann Irene MD Primary Care Provider [phone] Reason for Visit * Reason Comments Urinary Tract Infection developed UTI at rehab after TKR, was given cipro 250 and still having sxs Encounter Details Date Type Department Care Team (Latest Contact Info) Description 02/10/2019 4:40 PM EDT Office Visit [facility] [place] [address] [place] [address] Ramandeep Noriega APRN [address] [place], [place] [id number] UTI (urinary tract infection), uncomplicated (Primary Dx); Dysuria Social History Tobacco Use Types Packs/Day Years Used Date Smoking Tobacco: Former Cigarettes 0.5 25 0 09/27/1989 - 09/27/2014 Smokeless Tobacco: Never Comments:quit ~'06 Alcohol Use Standard Drinks/Week Comments No 0 [...] Sign Reading Time Taken Comments Blood Pressure 146/88 02/10/2019 4:11 PM EDT Pulse 100 02/10/2019 4:11 PM EDT Temperature 36.9 ??C (98.4 ??F) 02/10/2019 4:11 PM ED T Respiratory Rate 16 02/10/2019 4:11 PM EDT Oxygen Saturation 93% 02/10/2019 4:11 PM EDT Inhaled Oxygen Concentration - - Weight 77.6 kg (171 lb) 02/10/2019 4:11 PM EDT Height 160 cm (5' 3 ) 02/10/2019 4:11 PM EDT Body Mass Index 30.29 02/10/2019 4:11 PM EDT documented in this encounter Functional [...] Refills Last Filled Start Date End Date nitrofurantoin, macrocrystal-monohy drate, (MACROBID) 100 mg Oral CapsuleIndications: UTI (urinary tract infection), uncomplicated Take 1 Cap by mouth 2 times daily for 7 days. 14 Cap 02/10/2019 02/17/2019 documented in this encounter Progress Notes * Stanton, Ramandeep, DYEING MACHINE BACK TENDER - 02/10/2019 4:40 PM EDT Assessment Diagnoses and all orders for this visit: UTI (urinary tract infection), uncomplicated - URINE CULTURE (NO STAIN); Future - cefTRIAXone (ROCEPHIN) injection 1 g - nitrofurantoin, macrocrystal-monohydrate, (MACROBID) 100 mg Oral Capsule; Take 1 Cap by mouth 2 times daily for 7 days. Dispense: 14 Cap; Refill: 0 Dysuria - POCT URINALYSIS DIPSTICK Hx and exam consistent with UTI. No fever. Slightly elevated blood pressure. No CVA tenderness. Trace hematuria. Recent UTI - this is most likely ongoing as opposed to recurrent. No culture availableto review. Will provide dual atb coverage with Rocephin IM and PO Macrobid. Culture sent for confirmation. Treated a little more aggressively because she does have upcoming cataract surgery as well as rightTKR. Reviewed homecare and symptomatic care with followup as needed. Progress Note: Vitals: 02/10/19 1611 BP: 146/88 Pulse: 100 Resp: 16 Temp: 98.4 ??F (36.9 ??C) TempSrc: Temporal SpO2: 93% Weight: 171 lb (77.6 kg) Height: 5' 3 (1.6 m) SUBJECTIVE: Chief Complaint Patient presents with ??? Urinary Tract Infection developed UTI at rehab after TKR, was given cipro 250 and still having sxs HPI: Pt presents to office today for possible UTI. States that she underwent a left TKR on 12/28/18.Was discharged to a physical therapy rehab. While there she had developed a UTI. She was treated with a 7-day course of cipro. Sx had improved until this past week she has developed dysuria, urgency and frequency. No fever, nausea or vomiting. Denies flank pain. No hematuria. Review of Systems Constitutional: Negative for fever. Respiratory: Negative for cough, shortness of breath and wheezing. Cardiovascular: Negative for chest pain, palpitations and leg swelling. Gastrointestinal: Negative for abdominal pain, constipation, diarrhea and vomiting. Genitourinary: Positive for dysuria, frequency and urgency. Negative for flank pain and hematuria. Musculoskeletal: Positive for arthralgias, gait problem and joint swelling. Hematological: Negative for adenopathy. Does not bruise/bleed easily. OBJECTIVE: Results for orders placed or performed in visit on 02/10/19 POCT URINALYSIS DIPSTICK Result Value Ref Range Color, UA Yellow CLEAR,YELLOW,ORANGE,RUST Clarity, UA Cloudy CLEAR,CLOUDY Glucose, UA Neg G/DL% Bilirubin, UA Neg POS/NEG Ketones, UA Neg POS/NEG Spec Grav, UA 1.020 1.001 - 1.035 G/DL Blood, UA Trace POS/NEG pH, UA 6.5 5.0 - 8 Protein, UA Neg POS/NEG Urobilinogen, UA Neg 0.2 - 1.0 MG/DL Leukocytes, UA Moderate POS/NEG Nitrite, UA Neg POS/NEG UA Appear POC Lot Number Expiration [...] Abdomen is soft. Tenderness: There is no tenderness. There is no guarding or rebound. Musculoskeletal: Right knee: She exhibits decreased range of motion. Left knee: She exhibits swelling (scarring from recent TKR). Lymphadenopathy: Cervical: No cervical adenopathy. Skin: General: Skin is warm and dry. Coloration: Skin is not pale. Findings: No erythema or rash. Neurological: Mental Status: She is alert and oriented to person, place, and time. Cranial Nerves: No cranial nerve deficit. Psychiatric: Behavior: Behavior normal. Thought Content: Thought content normal. Judgement: Judgment normal. documented in this encounter Plan of Treatment Upcoming Encounters Date Type Department Care Team (Late st Contact Info) Description 05/16/2024 9:30 AM EST Office Visit [facility] [address] [place] [address] Gilda Francis PA [address] [place] [address] documented as of this encounter Procedures Procedure Name Priority Date/Time Associated Diagnosis Comments POCT URINALYSIS DIPSTICK Routine 02/10/2019 4:20 PM EDT Dysuria documented in this encounter Results * (ABNORMAL) POCT URINALYSIS DIPSTICK (02/10/2019 4:20 PM EDT) Color, UA Yellow CLEAR,YELL OW,ORANGE, RUST [facility] Clarity, UA Cloudy CLEAR,CLOU DY [facility] Glucose, UA Neg G/DL% [facility] Bilirubin, UA Neg POS/NEG [facility] Ketones, UA Neg POS/NEG SEP public stenographer Grav, UA 1.020 1.001 - 1.035 G/DL [facility] Blood, UA Trace POS/NEG [facility] pH, UA 6.5 5.0 - 8 [facility] Protein, UA Neg POS/NEG [facility]P [facility] Urobilinogen, UA Neg 0.2 - 1.0 MG/DL SEP [facility] Leukocytes, UA Moderate POS/NEG [facility]P [facility] Nitrite, UA Neg POS/NEG [facility]P [facility] UA Appear POC SEP OFFICE Lot Number SEP OFFICE Expiration Date SEP OFFICE SeriAl # SEP OFFICE Urine 02/10/2019 4:20 PM EDT Ramandeep Noriega APRN POINT OF CARE TEST ORDERABL ES Final Result [facility] documented in this encounter Visit Diagnoses Diagnosis UTI (urinary tract infection), uncomplicated- Primary Urinary tract infection, site not specified Dysuria documented in this encounter Administered Medications Inactive Administered Medications - up to 1 most recent administrations Medication Order MAR Action Action Date Dose Rate Site cefTRIAXone (ROCEPHIN) injection 1 g 1 g, Intramuscular, ONCE, 1 dose, On Gretel 02/10/19 at 1645, Dx: 1. UTI (urinary tract infection), uncomplicatedIndications:U TI (urinary tract infection), uncomplicated Given 02/10/2019 4:45 PM EDT 1 g Right upper gluteus documented in this encounter Additional Health Concerns Assessment Noted Time A fall risk assessment has been complete d for the patient 12/06/2018 7:30 AM EDT documented as of this encounter Care Teams Kiln Fireman Relationship Specialty Start Date End Date Mann Irene MD [address] [place] [address] PCP - General Internal Medicine 08/23/12 07/13/22 documented as of this encounter
--- OUTSIDE RECORDS SUMMARY | 2024-03-27 15:05 | XMS_ITS | Encounter Summary ---
Author Organization [place] [address] Care Team Providers Care Cloth Examiner Machine Name Role Phone Mann Irene MD Primary Care Provider [phone] Reason for Referral * DEXA (Routine) - Closed Specialty Diagnoses / Procedures Referred By Contac t Referred To Contact Radiology Diagnoses Post-menopausal Procedures DX BONE DENSITY AXIAL SKELETON Mann [place] [place] [id number] Phone: tel: fax: [facility] DEXA [address] [place], [place] [id number] Phone: tel: Referral ID Status Reason Start Date Expiration Date Visits Re quested Visits Authorized [id number] Closed 02/09/2019 02/09/2020 1 1 Reason for Visit * DEXA (Routine) - Closed Specialty Diagnoses / Procedures Referred By Contac t Referred To Contact Radiology Diagnoses Post-menopausal Procedures DX BONE DENSITY AXIAL SKELETON Mann [place] [place] [id number] Phone: tel: fax: [facility] DEXA [address] [place] [address] Phone: tel: Referral ID Status Reason Start Date Expiration Date Visits Re quested Visits Authorized [id number] Closed 02/09/2019 02/09/2020 1 1 Encounter Details Date Type Department Care Team (Latest Contact Info) Description 02/10/2019 11:12 AM EDT - 02/10/2019 11:59 PM EDT Hospital Encounter [place] [id number] Mann [place] [address] [place] [phone] Post-menopausal Discharge Disposition: Home or Self Care Social [...] this encounter Medications at Time of Discharge nitrofurantoin, macrocrystal-monohy drate, (MACROBID) 100 mg Oral CapsuleIndications: UTI (urinary tract infection), uncomplicated Take 1 Cap by mouth 2 times daily for 7 days. 14 Cap 02/10/2019 02/17/2019 documented as of this encounter Discharge Disposition Disposition Code Departure Means Destination Home or Self Care documented in this encounter Plan of Treatment Upcoming Encounters Date Type Department Care Team (Late st Contact Info) Description 05/16/2024 9:30 AM EST Office Visit [facility] [address] [place] [address] Gilda Francis PA [address] [place] [address] documented as of this encounter Procedures Procedure Name Priority Date/Time Associated Diagnosis Comments DX BONE DENSITY AXIAL SKELETON Routine 02/10/2019 11:38 AM EDT Post-menopausal documented in this encounter Results * DX BONE DENSITY AXIAL SKELETON (02/10/2019 11:38 AM EDT) Anatomical Region Laterality Modality Dexa Scan 02/10/2019 Narrative 02/10/2019 2:04 PM EDT Indication: The patient is a female age 65 or older who requires a bone density assessment. Study was performed on [employer] 5. Bone Density: Region ?BMD ? T-score [...] Smith PA-C, CCD on 02/10/2019 12:48:00 PM. us aMnn Irene MD IMG DEXA ORDERABLES Final Resu lt documented in this encounter Visit Diagnoses Diagnosis Post-menopausal Asymptomatic postmenopausal status (age-related) (natural) documented in this encounter Additional Health Concerns Assessment Noted Time A fall risk assessment has been complete d for the patient 12/06/2018 7:30 AM EDT documented as of this encounter Care Teams Cloth Examiner Machine Relationship Specialty Start Date End Date Mann Irene MD [address] [place] [address] PCP - General Internal Medicine 08/23/12 07/13/22 documented as of this encounter
--- OUTSIDE RECORDS SUMMARY | 2024-03-27 15:05 | XMS_ITS | Encounter Summary ---
Author Organization [facility] [place] [address] Care Team Providers Care Filter Worker Name Role Phone Mann Irene MD Primary Care Provider [phone] Encounter Details Date Type Department Care Team (Latest Contact Info) Description 02/28/2019 Travel Social History Tobacco Use Types Packs/Day [...] EST Office Visit [facility] [address] [place] [address] Gilda Francis PA [address] [place] [address] documented as of this encounter Visit Diagnoses Not on filedocumented in this encounter Additional Health Concerns Assessment Noted Time A fall risk assessment has been complete d for the patient 12/06/2018 7:30 AM EDT documented as of this encounter Care Teams Filter Worker Relationship Specialty Start Date End Date Mann Irene MD [address] [place] [id number] PCP - General Internal Medicine 08/23/12 07/13/22 documented as of this encounter
--- OUTSIDE RECORDS SUMMARY | 2024-03-27 15:05 | XMS_ITS | Encounter Summary ---
Author Organization [place] [address] Care Team Providers Care Bias Binding Cutter Name Role Phone Mann Irene MD Primary Care Provider [phone] Reason for Visit * Reason Comments Medication Refill Encounter Details Date Type Department Care Team (Late st Contact Info) Description 01/02/2019 Refill [facility] [place] [address] [address] Mann Irene MD [...] (WITH MEALS) FOR 360 DAYS. 60 Tab 01/03/2019 03/16/2019 documented in this encounter Plan of Treatment Upcoming Encounters Date Type Department Care Team (Late st Contact Info) Description 05/16/2024 9:30 AM EST Office Visit [facility] [address] [place] [address] Gilda Francis PA [address] [place] [address] documented as of this encounter Visit Diagnoses Not on filedocumented in this encounter Additional Health Concerns Assessment Noted Time A fall risk assessment has been complete d for the patient 12/06/2018 7:30 AM EDT documented as of this encounter Care Teams Bias Binding Cutter Relationship Specialty Start Date End Date Mann [place] [address] [place] [phone] PCP - General Internal Medicine 08/23/12 07/13/22 documented as of this encounter
--- OUTSIDE RECORDS SUMMARY | 2024-03-27 15:05 | XMS_ITS | Encounter Summary ---
Author Organization [place] [address] Care Team Providers Care Clock Repairer Name Role Phone Mann Irene MD Primary Care Provider [phone] Reason for Referral * DEXA (Routine) - Closed Specialty Diagnoses / Procedures Referred By Ramona t Referred To Contact Radiology Diagnoses Post-menopausal Procedures DX BONE DENSITY AXIAL SKELETON Mann [place] [address] [place] [address] Phone: tel: fax: [facility] DEXA [address] [place] [address] Phone: tel: Referral ID Status Reason Start Date Expiration Date Visits Re quested Visits Authorized [id number] Closed 02/09/2019 02/09/2020 1 1 Reason for Visit * Reason Onset Date Comments Osteoporosis 02/09/2019 dexa Encounter Details Date Type Department Care Team (Late st Contact Info) Description 02/09/2019 Patient Outreach [facility] [address] [place] [address] Jr Blandon, RN Osteoporosis (dexa) Social History Tobacco Use Types Packs/Day Years [...] documented in this encounter Progress Notes * Jr Blandon RN - 02/09/2019 11:26 AM EDT Patient has been identified as overdue for osteoporosis screening. Patient was contacted in an attempt to schedule and the outcome of the call was: Completed - Appointment Scheduled for 02/10 documented in this encounter Plan of Treatment Upcoming Encounters Date Type Department Care Team (Late st Contact Info) Description 05/16/2024 9:30 AM EST Office Visit [facility] [address] [facility] [address] Gilda Francis PA [address] [facility] [place] [address] documented as of this encounter Results * DX BONE DENSITY AXIAL SKELETON (02/10/2019 11:38 AM EDT) Anatomical Region Laterality Modality Dexa Scan 02/10/2019 Narrative 02/10/2019 2:04 PM EDT Indication: The patient is a female age 65 or older who requires a bone density assessment. Study was performed on [employer]. Bone Density: Region ?BMD ? T-score [...] documented in this encounter Visit Diagnoses Diagnosis Post-menopausal- Primary Asymptomatic postmenopausal status (age-related) (natural) Post-menopausal Asymptomatic postmenopausal status (age-related) (natural) documented in this encounter Additional Health Concerns Assessment Noted Time A fall risk assessment has been complete d for the patient 12/06/2018 7:30 AM EDT documented as of this encounter Care Teams Clock Repairer Relationship Specialty Start Date End Date Mann Irene MD [address] [facility] [address] [place] [address] PCP - General Internal Medicine 08/23/12 07/13/22 documented as of this encounter
--- OUTSIDE RECORDS SUMMARY | 2024-03-27 15:05 | XMS_ITS | Encounter Summary ---
Author Organization [place] [address] Care Team Providers Care Snack Steward Name Role Phone Mann Irene MD Primary Care Provider [phone] Reason for Visit * Reason Onset Date Comments Osteoporosis 12/31/2018 osteoporosis scr eening Encounter Details Date Type Department Care Team (Latest Contact Info) Description 12/31/2018 Patient Outreach [facility] [address] [place] [address] Mann Irene [place] [address] Osteoporosis (osteoporosis screening) Social History Tobacco Use Types Packs/Day Years [...] No 12/06/2018 7:32 AM EDT Toim Slaughter CLAUDIA * Does this person have [...] Slaughter deysiroxanne CLAUDIA documented in this encounter Progress Notes * Theresa Gil - 12/31/2018 3:01 PM EDT Patient has been identified as overdue for osteoporosis screening. Patient was contacted in an attempt to schedule and the outcome of the call was: Declined Patient is in rehab for knee surgery currently documented in this encounter Plan of Treatment Upcoming Encounters Date Type Department Care Team (Late st Contact Info) Description 05/16/2024 9:30 AM EST Office Visit [facility] [address] [place] [address] Gilda Francis PA [address] [place] [address] documented as of this encounter Visit Diagnoses Not on filedocumented in this encounter Additional Health Concerns Assessment Noted Time A fall risk assessment has been complete d for the patient 12/06/2018 7:30 AM EDT documented as of this encounter Care Teams Snack Steward Relationship Specialty Start Date End Date Mann Irene MD [address] [place] [address] PCP - General Internal Medicine 08/23/12 07/13/22 documented as of this encounter
--- OUTSIDE RECORDS SUMMARY | 2024-03-27 15:05 | XMS_ITS | Encounter Summary ---
Author Organization [place] [address] Care Team Providers Care Architectural Representative Name Role Phone Mann Irene MD Primary Care Provider [phone] Reason for Visit * Auth/Cert/Inpt Specialty Diagnoses / Procedures Referred By Ramona mcdaniel Referred To Contact Diagnoses Nuclear sclerotic cataract of left eye Cortical age-related cataract, left eye Nuclear sclerotic cataract of left eye [H25.12] Cortical age-related cataract, left eye [H25.012] Procedures GA REMV CATARACT EXTRACAP,INSERT LENS LEFT EYE CATARACT EXTRACTION WITH PHACOEMULSIFICATION AND INTRAOCULAR LENS Referral ID Status Reason Start Date Expiration Date Visits Re quested Visits Authorized [id number] 1 1 Encounter Details Date Type Department Care Team (Latest Contact Info) Description 03/14/2019 7:48 AM EST - 03/14/2019 10:[address] [facility] Hospital Encounter [facility] [address] [place] [address] Conor Ramirez MD [address] [place] [address] Discharge Disposition: Home or Self Care Social [...] Sign Reading Time Taken Comments Blood Pressure 132/66 03/14/2019 10:00 AM EST Pulse 79 03/14/2019 10:00 AM EST Temperature 36.1 ??C (96.9 ??F) 03/14/2019 10:[address] Respiratory Rate 20 03/14/2019 10:00 AM EST Oxygen Saturation 99% 03/14/2019 10:00 AM EST Inhaled Oxygen Concentration - - [...] are extended to you on behalf of [facility] as you are discharged. Please carefully read [...] light ?? Veil-like curtain across your eye [facility] phone number . There is an director medical surgical electronic equipment trades worker 24 hours a day for emergencies. Call the [facility] with any questions or concerns. +++++++++++++++++++++++++++++++++++++++++++++++++++++++++++++++++++ [facility] Discharge Instructions - Following Anesthesia We appreciate [...] our office at . Get Well Soon! [facility] +++++++++++++++++++++++++++++++++++++++++++++++++++++++++++++++++++ documented in this encounter Medications [...] HIP REPLACEMENT; Surgeon: Bruce Oh MD; Location: [facility] MAIN OR; Service: Orthopedics ??? HYSTERECTOMY ??? LUMBAR DISC SURGERY 11/03/2012 Surgeon: Elza Bautista MD; Location: [facility] MAIN OR; Service: ??? TOTAL KNEE ARTHROPLASTY Left 12/28/2018 left knee total replacement; Surgeon: Bruce Oh MD; Location: [facility] MAIN OR; Service: Orthopedics Current Outpatient Medications: [...] chest pain on exertion does not have SLO, SOA, PND, Orthopnea, LE Edema. does not [...] Faustin Cardiac Risk Index (Circulation 1999; 100: 6547-9980) 1. High risk surgical procedures (intraperitoneal, intrathoracic, [...] Care COMPLICATIONS: [x] NONE [] SURGEON: CONOR RAMIREZ M.D. DESCRIPTION OF PROCEDURE: After informed consent [...] of Incisions: Micrometer Depth: mm Length: mm [place]: ?? Conor Ramirez M.D. Date documented in this encounter Nursing Notes * Cece Graham, UMA - 03/14/2019 9:55 AM EST Lens timeout [...] ??? Review instructions provided by your surgeon. Cream Gatherer ??? On the day of surgery, it is important to have a Cream Gatherer, someone who is 18 years or older, [...] or near the operative extremity. ??? Nail yakut must be removed from operative extremity. Personal [...] a Living Will and Durable Power of [place] Floor Person for Healthcare, please bring a copy. ??? [...] experience while you are here. [facility] at [phone] - [address] [place] [address] documented in this encounter Plan of Treatment Upcoming Encounters Date Type Department Care Team (Late st Contact Info) Description 05/16/2024 9:30 AM EST Office Visit [facility] [address] [place] [address] Gilda Francis PA [address] [place] [address] documented as of this encounter Procedures Procedure Name Priority Date/Time Associated Diagnosis Comments CATARACT EXTRACTION WITH PHACOEMULSIFICATION AND INTRAOCULAR LENS 03/14/2019 9:31 AM EST Nuclear sclerotic cataract of left eye Cortical age-related cataract, left eye Special Needs EPISHUGARCAINEAXIAL: 24.41 MMTOPICAL/MAC documented in this encounter Visit Diagnoses Not on filedocumented in this encounter Administered Medications Inactive Administered Medications - up to 1 most recent administrations Medication Order MAR Action Action Date Dose Rate Site ondansetron (ZOFRAN) injection 4 mg 4 mg, [...] 9:23 AM EST 1 Drop Left Eye sodium chloride 0.9% syringe Intravenous, PREPROCEDURE, Starting on 03/13/19 at 1434, Until Thu03/14/19 at 1420, Line Care, Pre-op Priming, For priming IV saline lock, Pre-op (Holding/SDS Meds) Given 03/14/2019 9:24 AM EST 10 mL tropicamide (MYDRIACYL) 1 % ophthalmic solution 1 [...] priming IV saline lock, Pre-op (Holding/SDS Meds) 09 (Given - Provid er: Stefania Conley RN) [...] mg, Intravenous, PRN, 1 dose, Starting on 11/4/19 at 1019, Until Thu03/14/19 at 1420, Nausea, [...] (TYLENOL) tablet 1,000 mg 1 1 05/14/2018 chondroitin sulf-sod hyaluro dean (DUOVISC) intra-ocular kit 1 03/14/2019 Epi-Shugarcaine mixture 1 03/14/2019 EPINEPHrine HCl (PF) 0.5 mL in balanced salts (BSS) 500 mL Irrigation 1 03/14/2019 moxifloxacin (VIGAMOX) 0.5 % ophthalmic solution 1 03/14/2019 ondansetron (ZOFRAN) injection 4 mg 1 03/14 ondansetron (ZOFRAN-ODT) dis integrating tablet 8 mg 1 03/14/2019 pilocarpine (PILOCAR) 1 % op hthalmic solution 1 03/14/2019 tetracaine HCl (PF) (PONTOCA INE) 0.5 % ophthalmic solution 1 03/14/2019 Discharge Count Last Ordered Date First Orde red Date DISCHARGE PATIENT 1 03/14/2019 documented in this encounter Additional Health Concerns Assessment Noted Time A fall risk assessment has been complete d for the patient 12/06/2018 7:30 AM EDT documented as of this encounter Care Teams Architectural Representative Relationship Specialty Start Date End Date Mann Irene MD [address] [place] [address] PCP - General Internal Medicine 08/23/12 07/13/22 documented as of this encounter
--- OUTSIDE RECORDS SUMMARY | 2024-03-27 15:05 | XMS_ITS | Encounter Summary ---
Author Organization [place] [address] Care Team Providers Care Healthcare Insurance Sales Agent Name Role Phone Mann Irene MD Primary Care Provider [phone] Reason for Visit * Auth/Cert/Inpt Specialty Diagnoses / Procedures Referred By Ramona t Referred To Contact Diagnoses Nuclear sclerotic cataract of left eye Cortical age-related cataract, left eye Nuclear sclerotic cataract of left eye [H25.12] Cortical age-related cataract, left eye [H25.012] Procedures [place] REMV CATARACT EXTRACAP,INSERT LENS LEFT EYE CATARACT EXTRACTION WITH PHACOEMULSIFICATION AND INTRAOCULAR LENS Referral ID Status Reason Start Date Expiration Date Visits Re quested Visits Authorized [id number] 1 1 Encounter Details Date Type Department Care Team (Late st Contact Info) Description 03/14/2019 9:30 AM EST Anesthesia Event EDG [address] [address] Viola Parrish MD [address] [place] [id number] Luis Felipe Guerrero MD [address] [place] [id number] Anesthesia Record Procedure Summary Procedure Name Responsible Anesthesiologist Anesthesia Start Time Anesthesia Stop Time CATARACT EXTRACTION WITH PHACOEMULSIFICATION AND INTRAOCULAR LENS (Left) Viola Parrish MD 03/14/19 0930 03/14/19 10 00 Events Date Time Event Comment 03/14/2019 0908 0920 AN Equip Check 0930 An Start 0931 An Start Data 0932 Immediate Pre Anesthetic Ass es 0933 Anesthesia Ready 0947 Time out 0948 Incision 0957 an stop data 0959 Handoff I completed my SBAR handoff to [...] of understanding from the receiving PACU/ICU steam blocker 1000 An Stop Meds Name Total midazolam (VERSED) injection 1 mg/mL 1 m g fentaNYL 50 MCG/ML INJ 50 mcg bupivacaine (MARCAINE) 0.75% eye drops 6 Drop * Agents Name O2 * Blood No blood administrations on file. Lines, Drains, and Airways Type Details Placement Removal Incision/Procedural Site 03/14/19; Eye; Left; 03/14/19; 1031 03/14/19 0000 by Cece Graham, UMA 03/14/19 1031 by Discharge Provider, Automatic Peripheral IV 03/14/19; 0923; 22; Left; Hand; mary; 1; 03/14/19; 1008; Catheter intact, Dressing applied, No Complications 03/14/19 0923 by Stefania Conley, RN 03/14/19 1008 by Jill Viramontes, RN Airway Device: Nasal Cannul a Salter; Placement Date: 03/14/19; Placement Time: 936 (created via procedure documentation); Removal Date: 03/14/19; Removal Time: 1031 03/14/19 0937 by Rose Gooden CRNA 03/14/19 1031 by Discharge Provider, Automatic documented in this [...] No 12/06/2018 7:32 AM EDT Tomi Slaughter eamon, ASHLEYA * Is the person blind or does he/she have serious difficulty seeing even when wearing glasses? Answer Date of Assessment Author No 12/06/2018 7:32 AM EDT Tomi Slaughter eamon CCMA * Does this person have serious difficulty walking or climbing stairs? Answer Date of Assessment Author No 12/06/2018 7:32 AM Tomi Huggins eamon, CCMA * Does this person have difficulty dressing or bathing? Answer Date of Assessment Author No 12/06/2018 7:32 AM EDT Tomi Slaughter eamon, CCMA * Because of a physical, mental or emotional condition, does this person have difficulty doing errands alone such as visiting a doctor's office or shopping? Answer Date of Assessment Author No 12/06/2018 7:32 AM EDT Tomi Slaughter, ASHLEYA documented as of this encounter Mental Status * Because of a physical, mental or emotional condition, does this person have serious difficulty concentrating, remembering or making decisions? Answer Entry Date Author No 12/06/2018 7:32 AM Tomi Huggins, CCMA documented in this encounter Procedure Notes * Rose Gooden CRNA - 03/14/2019 9:37 AM ESTAssociated Order(s): Airway Intraop Airway Placement: Airway type: Nasal cannula salter documented in this encounter OR Notes * Anesthesia Postprocedure Evaluation - Viola Parrish MD - 03/14/2019 10:31 AM EST Post-Anesthesia Evaluation Note Patient Name: Stella Hylton Patient Date: March 14, 2019 Patient Location: [facility] Post OP Vitals: stable Level of Consciousness: awake, alert and oriented Nausea Controlled: yes Post Anesthesia Pain: adequate analgesia Long Acting Local Anesthetic: n/a Airway Patency: patent Difficult Airway: no Respiratory: spontaneous ventilation and room air Cardiovascular: stable and BP within 20% of baseline Hydration: euvolemic Perioperative complications: NONE Vitals: 03/14/19 1000 BP: 132/66 Pulse: 79 Resp: 20 Temp: 36.1 ??C (96.9 ??F) SpO2: 99% * Anesthesia Preprocedure Evaluation - Viola Parrish MD - 02/23/2019 9:34 AM EDT Pre-Anesthesia Evaluation Note Patient Name: Stella Hylton Sex: female Patient : 1945 Age: 73 y.o. Patient Date: February 23, 2019 Procedure(s): CATARACT EXTRACTION WITH PHACOEMULSIFICATION AND INTRAOCULAR LENS (Left ) Anesthesia Evaluation Previous anesthesia. No history of anesthetic complications: No family history of anesthesia complications: Airway Mallampati: II TM distance: >3 FB Neck ROM: full No increased risk of difficult airway Dental - normal exam Dental exam findings: upper dentures, lower dentures and edentulous Pulmonary (+) History of tobacco use (quit 2014): former Physical exam: Comments: Clear to auscultation Cardiovascular (+)Exercise tolerance: good Hyperlipidemia Physical exam: Rhythm: regular Rate: normal (-) hypertension, no angina, no shortness of breath Neuro/Psych - negative ROS GI/Hepatic/Renal - negative ROS (+) Kidney stones Endo/Other (+)Obese: 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 Last clear liquid intake: The patient has not had clear liquids within the last 2 hours. Anesthesia Plan: MAC Induction: intravenous Monitors: STD Sedation with analgesia needed to provide anxiolysis and to improve comfort/cooperation for the patient while lying flat for the procedure. Informed consent Anesthetic plan and risks discussed with: patient. Chart Reviewed and patient examined documented in this encounter Plan of Treatment Upcoming Encounters Date Type Department Care Team (Late st Contact Info) Description 05/16/2024 9:30 AM EST Office Visit [facility] [address] [place] [address] Gilda Francis PA [address] [place] [address] documented as of this encounter Procedures Procedure Name Priority Date/Time Associated Diagnosis Comments INTRAOP AIRWAY PLACEMENT Routine 03/14/2019 9:37 AM EST documented in this encounter Results * INTRAOP AIRWAY PLACEMENT (03/14/2019 9:37 AM EST) Narrative [facility] - 03/14/2019 9:37 AM EST Rose Gooden CRNA ? 03/14/2019 ??9:37 AM Intraop Airway Placement: ??Airway type: ??Nasal cannula salter us Rose Gooden CRNA [place] ANESTHESIA F inal Result [facility] [address] [place] [address] documented in this encounter Visit Diagnoses Not on filedocumented in this encounter Administered Medications Inactive Administered Medications - up to 1 most recent administrations Medication Order MAR Action Action Date Dose Rate Site bupivacaine (MARCAINE) 0.75 % eye drop Soln Ophthalmic, PRN (Anesthesia), Starting on Thu03/14/19 at 0931, Until Thu03/14/19 at 1014, Anesthesia Intra-op Given 03/14/2019 9:34 AM EST 2 Drops fentaNYL (SUBLIMAZE) injection Intravenous, PRN (Anesthesia), Starting on Thu03/14/19 at 0931, Until Thu03/14/19 at 1014, Anesthesia Intra-op Given 03/14/2019 9:31 AM EST 50 mcg midazolam (VERSED) injection Intravenous, PRN (Anesthesia), Starting on Thu03/14/19 at 0931, Until Thu03/14/19 at 1014, Anesthesia Intra-op Given 03/14/2019 9:31 AM EST 1 mg documented in this encounter Additional Health Concerns Assessment Noted Time A fall risk assessment has been complete d for the patient 12/06/2018 7:30 AM EDT documented as of this encounter Care Teams Healthcare Insurance Sales Agent Relationship Specialty Start Date End Date Mann Irene MD [address] [place] [id number] PCP - General Internal Medicine 08/23/12 07/13/22 documented as of this encounter
--- OUTSIDE RECORDS SUMMARY | 2024-03-27 15:05 | XMS_ITS | Encounter Summary ---
Author Organization [place] [address] Care Team Providers Care Despatching And Receiving Clerk Name Role Phone Mann Irene MD Primary Care Provider [phone] Reason for Visit * Auth/Cert/Inpt Specialty Diagnoses / Procedures Referred By Ramona t Referred To Contact Diagnoses Nuclear sclerotic cataract of right eye Cortical age-related cataract, right eye Nuclear sclerotic cataract of right eye [H25.11] Cortical age-related cataract, right eye [H25.011] Procedures [place] REMV CATARACT EXTRACAP,INSERT LENS RIGHT EYE CATARACT EXTRACTION WITH PHACOEMULSIFICATION AND INTRAOCULAR LENS Referral ID Status Reason Start Date Expiration Date Visits Re quested Visits Authorized [id number] 1 1 Encounter Details Date Type Department Care Team (Late st Contact Info) Description 02/28/2019 9:37 AM ED[place] [address] Lexi Golden MD [address] [facility] [address] [place] [address] Luis Felipe Guerrero MD [address] 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 Lines, Drains, and Airways Type Details Placement Removal Peripheral IV 02/28/19; 08; 22; Left; Hand; Kandace Veras; 1; 02/28/19; 1020; Catheter intact, Dressing applied, No Complications 02/28/19 0837 by Kandace Veras, UMA 02/28/19 1020 by Katina Jennings RN Airway Device: Nasal Cannul a Salter; Placement Date: 02/28/19; Placement Time: 945 (created via procedure documentation); Removal Date: 02/28/19; Removal Time: 209902/28/19 0946 by Rose Gooden CRNA 02/28/19 2100 by Discharge Provider, Automatic Incision/Procedural Site 02/28/19; 0951; Eye; Right; 02/28/19; 209902/28/19 0951 by Olimpia Perdomo RN 02/28/19 2100 by Discharge Provider, Automatic documented in this [...] No 12/06/2018 7:32 AM EDT Sukhjinder Tomi eamon, CCMA * Is the person blind or does he/she have serious difficulty seeing even when wearing glasses? Answer Date of Assessment Author No 12/06/2018 7:32 AM EDT Sukhjinder Tomi eamon, CCMA * Does this person have serious difficulty walking or climbing stairs? Answer Date of Assessment Author No 12/06/2018 7:32 AM EDT SukhjinderTomi, CCMA * Does this person have difficulty dressing or bathing? Answer Date of Assessment Author No 12/06/2018 7:32 AM EDT Sukhjinder Tomi eamon, CCMA * Because of a physical, mental or emotional condition, does this person have difficulty doing errands alone such as visiting a doctor's office or shopping? Answer Date of Assessment Author No 12/06/2018 7:32 AM EDT Sukhjinder Tomi deysiroxanne, CCMA documented as of this encounter Mental Status * Because of a physical, mental or emotional condition, does this person have serious difficulty concentrating, remembering or making decisions? Answer Entry Date Author No 12/06/2018 7:32 AM EDT Sukhjinder Tomi eamon, CCMA documented in this encounter Procedure Notes * Rose Gooden CRNA - 02/28/2019 9:46 AM EDTAssociated Order(s): Airway Intraop Airway Placement: Airway type: Nasal cannula salter documented in this encounter OR Notes * Anesthesia Postprocedure Evaluation - Lexi Golden MD - 02/28/2019 3:00 PM EDT Post-Anesthesia Evaluation Note Patient Name: Stella Hylton Patient Date: February 28, 2019 Patient Location: [facility] Post OP Vitals: stable Level of Consciousness: awake, alert and oriented Nausea Controlled: yes Post Anesthesia Pain: adequate analgesia Long Acting Local Anesthetic: n/a Airway Patency: patent Respiratory: room air and spontaneous ventilation Cardiovascular: stable Hydration: euvolemic Perioperative complications: NONE Vitals: 02/28/19 1011 BP: 134/76 Pulse: 74 Resp: 16 Temp: 36.3 ??C (97.3 ??F) SpO2: 97% * Anesthesia Preprocedure Evaluation - Lexi Golden MD - 02/23/2019 9:31 AM EDT Pre-Anesthesia Evaluation Note Patient Name: Stella Hylton Sex: female Patient : 1945 Age: 73 y.o. Patient Date: February 23, 2019 Procedure(s): left knee total replacement Anesthesia Evaluation Previous anesthesia. 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 Last clear liquid intake: The patient has not had clear liquids within the last 2 hours. Anesthesia Plan: MAC Induction: intravenous Monitors: STD Informed consent Anesthetic plan and risks discussed with: patient and family. Chart Reviewed and patient examined documented in this encounter Plan of Treatment Upcoming Encounters Date Type Department Care Team (Late st Contact Info) Description 05/16/2024 9:30 AM EST Office Visit [facility] [address] [place] [address] Gilda Francis PA [address] [place] [address] documented as of this encounter Procedures Procedure Name Priority Date/Time Associated Diagnosis Comments INTRAOP AIRWAY PLACEMENT Routine 02/28/2019 9:46 AM EDT documented in this encounter Results * INTRAOP AIRWAY PLACEMENT (02/28/2019 9:46 AM EDT) Narrative [facility] - 02/28/2019 9:46 AM EDT Rose Gooden CRNA ? 02/28/2019 ??9:46 AM Intraop Airway Placement: ??Airway type: ??Nasal cannula salter us Lexi Golden MD [place] ANESTHESIA Final R esult [facility] [address] [place] [address] documented in this encounter Visit Diagnoses Not on filedocumented in this encounter Administered Medications Inactive Administered Medications - up to 1 most recent administrations Medication Order MAR Action Action Date Dose Rate Site bupivacaine (MARCAINE) 0.75 % eye drop Soln Ophthalmic, PRN (Anesthesia), Starting on Thu02/28/19 at 0938, Until Thu02/28/19 at 1003, Anesthesia Intra-op Given 02/28/2019 9:42 AM EDT 2 Drops fentaNYL (SUBLIMAZE) injection Intravenous, PRN (Anesthesia), Starting on Thu02/28/19 at 0938, Until Thu02/28/19 at 1003, Anesthesia Intra-op Given 02/28/2019 9:38 AM EDT 50 mcg midazolam (VERSED) injection Intravenous, PRN (Anesthesia), Starting on Thu02/28/19 at 0938, Until Thu02/28/19 at 1003, Anesthesia Intra-op Given 02/28/2019 9:38 AM EDT 1 mg documented in this encounter Additional Health Concerns Assessment Noted Time A fall risk assessment has been complete d for the patient 12/06/2018 7:30 AM EDT documented as of this encounter Care Teams Despatching And Receiving Clerk Relationship Specialty Start Date End Date Mann Irene MD [address] [place] [id number] PCP - General Internal Medicine 08/23/12 07/13/22 documented as of this encounter
--- OUTSIDE RECORDS SUMMARY | 2024-03-27 15:05 | XMS_ITS | Encounter Summary ---
Author Organization [place] [address] Care Team Providers Care Activity Director Name Role Phone Mann Irene MD Primary Care Provider Reason for Visit * Auth/Cert/Inpt Specialty Diagnoses / Procedures Referred By Ramona mcdaniel Referred To Contact Diagnoses Nuclear sclerotic cataract of right eye Cortical age-related cataract, right eye Nuclear sclerotic cataract of right eye [H25.11] Cortical age-related cataract, right eye [H25.011] Procedures SC REMV CATARACT EXTRACAP,INSERT LENS RIGHT EYE CATARACT EXTRACTION WITH PHACOEMULSIFICATION AND INTRAOCULAR LENS Referral ID Status Reason Start Date Expiration Date Visits Re quested Visits Authorized [id number] 1 1 Encounter Details Date Type Department Care Team (Latest Contact Info) Description 02/28/2019 9:30 AM EDT - 02/28/2019 9:45 AM EDT Surgery EDG NE BAM [address] [facility] [address] [place] [id number] Dakota Ramirez MD [address] [place] [address] CATARACT EXTRACTION WITH PHACOEMULSIFICATION AND INTRAOCULAR LENS Surgery Details Date/Time Status Location OR Service Patient Class Case Class Case Type Trauma Case? 02/28/2019 9:30 AM Posted EDG NE BAM OSC 03 Ophthalmology Same Day Surgery Elective Panel 1 Procedure LRB Anes Op Region Wound Class Comments CATARACT EXTRACTION WITH PHACOEMULSIFICATION AND INTRAOCULAR LENS Right Monitored Anesthesia Care Clean RIGHT EYE CATARACT EXTRACTION WITH PHACOEMULSIFICATION AND INTRAOCULAR LENS Surgeon Surgeon Role Service Panel Dakota Ramirez MD Primary Ophthalmology 1 Special Needs EPISHUGARCAINEAXIAL: 24.51 MMTOPICAL/MAC documented in this encounter Social History [...] Sign Reading Time Taken Comments Blood Pressure 119/77 02/28/2019 8:24 AM EDT Pulse 88 02/28/2019 8:24 AM EDT Temperature 36.5 ??C (97.7 ??F) 02/28/2019 8:24 AM ED T Respiratory Rate 20 02/28/2019 8:24 AM EDT Oxygen Saturation 97% 02/28/2019 8:24 AM EDT Inhaled Oxygen Concentration - - Weight 79.4 kg (175 lb 1.6 oz) 02/28/2019 8:24 A M EDT Height 154.9 cm (5' 1 ) 02/28/2019 8:24 AM EDT Body Mass Index 33.08 02/28/2019 8:24 AM EDT documented in this [...] Assessment Author No 12/06/2018 7:32 AM Tomi HugginsASHLEYElver documented as of this encounter Mental Status * Because of a physical, mental or emotional condition, does this person have serious difficulty concentrating, remembering or making decisions? Answer Entry Date Author No 12/06/2018 7:32 AM Tomi Huggins ASHLEY knutsonElver documented in this encounter Discharge Instructions * Discharge Instructions* Dakota Ramirez MD - 02/28/2019 9:54 AM EDT Images from the original note were not included. CATARACT SURGERY DISCHARGE INSTRUCTIONS FOR DR. DAKOTA RAMIREZ Best wishes are extended to you on behalf of [facility] as you are discharged. Please carefully [...] light ?? Veil-like curtain across your eye [facility] phone number . There is an rigger helper security installation sales technician 24 hours a day for emergencies. Call the [facility] with any questions or concerns. +++++++++++++++++++++++++++++++++++++++++++++++++++++++++++++++++++ [facility] Discharge Instructions - Following Anesthesia We [...] our office at . [facility]! [facility] +++++++++++++++++++++++++++++++++++++++++++++++++++++++++++++++++++ documented in this encounter Medications [...] the right eye 2 times daily. 0 02/28/2019 0 difluprednate (DUREZOL) 0.05 % Opht Drops Place 1 Drop into the right eye 2 times daily. Can substitute Inveltys or Prednisolone 1 mL 02/28/2019 0 documented in this encounter Discharge Disposition Disposition Code Departure Means Destination Home or Self Care Car Home documented in this encounter H&P Notes * Liam Scott MD - 02/28/2019 8:30 AM EDT H&P Updated-No Change. Patient Examined and Interviewed Source Note - Carl Irene MD - 02/21/2019 10:40 AM EDT Images from the original note were not included. Preoperative Evaluation Stella Hylton is a 73 y.o. female who is undergoing cataract removal bilateral for cataracts by Dr Dakota Ramirez on 02/28/19 Prior Reactions to Anesthesia [...] SURGERY 11/03/2012 Surgeon: Elza Bautista MD; Location: [facility] MAIN OR; Service: ??? TOTAL KNEE ARTHROPLASTY Left 12/28/2018 left knee total replacement; Surgeon: Bruce Oh MD; Location: [facility] MAIN OR; Service: Orthopedics Current [...] Faustin Cardiac Risk Index (Circulation 1999; 100: 7299-2674) 1. High risk surgical procedures (intraperitoneal, intrathoracic, [...] documented in this encounter Procedure Notes * Dakota Ramirez MD - 02/28/2019 9:55 AM EDT PHYSICIAN???S OPERATIVE NOTE DAKOTA RAMIREZ M.D. Surgery Date: 02/28/2019 CHIEF COMPLAINT: [x] Reading/near tasks [x] Glare/Halos [x] Decreased vision w/functional impairment VA:__20/50 Glare:___20/600 PRE-OP DIAGNOSIS: [x] Nuclear sclerosis cataract, senile Right eye [x] Cortical cataract, senile Right eye [] Posterior subcapsular cataract, senile Right eye [] Mature cataract, senile Right eye POST-OP DIAGNOSIS: SAME PRE-OP DIAGNOSIS PROCEDURE: Phacoemulsification w/posterior chamber intraocular lens implantation - Right eye ANESTHESIA: Monitored Anesthesia Care COMPLICATIONS: [x] NONE [] SURGEON: DAKOTA RAMIREZ M.D. DESCRIPTION OF PROCEDURE: After informed [...] of Incisions: Micrometer Depth: mm Length: mm [place]: ?? Dakota Ramirez M.D. Date documented in this encounter Nursing Notes * Olimpia Perdomo RN - 02/28/2019 9:53 AM EDT Lens approved by Dr. Ramirez * Candice Saldaña RN - 02/23/2019 9:03 AM EDT Images from the original note were not included. PREPARING FOR YOUR SURGERY Date of Surgery 02/28/19 Medications ??? Take the following pills with [...] ??? Review instructions provided by your surgeon. Income Tax Adjuster ??? On the day of surgery, it is important to have a Income Tax Adjuster, someone who is 18 years or older, [...] or near the operative extremity. ??? Nail lao must be removed from operative extremity. Personal Items ??? Please wear a short sleeve button down shirt to the surgery center. Do not bring valuables (money, credit cards, [...] a Living Will and Durable Power of Traffic Observer for Healthcare, please bring a copy. ??? [...] an excellent experience while you are here. [facility] at [phone] - [address] [phone] documented in this encounter Plan of Treatment Upcoming Encounters Date Type Department Care Team (Sedrick fox Contact Info) Description 05/16/2024 9:30 AM EST [facility] [address] [facility] [address] Gilda Francis PA [address] [facility] [address] documented as of this encounter Procedures Procedure Name Priority Date/Time Associated Diagnosis Comments CATARACT EXTRACTION WITH PHACOEMULSIFICATION AND INTRAOCULAR LENS 02/28/2019 9:38 AM EDT Nuclear sclerotic cataract of right eye Cortical age-related cataract, right eye Special Needs EPISHUGARCAINEAXIAL: 24.51 MMTOPICAL/MAC documented in this encounter Visit Diagnoses Diagnosis Nuclear sclerotic cataract of right eye Senile nuclear sclerosis Cortical age-related cataract, right eye documented in this encounter Administered Medications Inactive Administered Medications - up to 1 most recent administrations Medication Order MAR Action Action Date Dose Rate Site chondroitin sulf-sod hyaluronate (DUOVISC) intra-ocular kit ONCE PRN, 1 dose, Starting on Thu02/28/19 at 0952, Until Thu02/28/19 at 0952, Intra-op Given 02/28/2019 9:52 AM EDT 1.05 mL Right Eye Epi-Shugarcaine mixture 3.8 mL, ONCE PRN, 1 dose, Starting on Thu02/28/19 at 0954, Until Thu02/28/19 at 0954, Intra-op Given 02/28/2019 9:54 AM EDT 0.5 mL Rig ht Eye EPINEPHrine HCl (PF) 0.5 mL in balanced salts (BSS) 500 mL Irrigation ONCE PRN, 1 dose, Starting on Thu02/28/19 at 1002, Until Thu02/28/19 at 1002, Intra-op Given 02/28/2019 10:02 AM EDT 44 mL moxifloxacin (VIGAMOX) 0.5 % ophthalmic solution ONCE PRN, 1 dose, Starting on Thu02/28/19 at 0952, Until Thu02/28/19 at 0952, Intra-op Given 02/28/2019 9:52 AM EDT 1 Drop Right Eye phenylephrine (MYDFRIN) 2.5 % ophthalmic solution 1 Drop 1 Drop, Ophthalmic, PREPROCEDURE, 3 doses, Starting on 02/28/19 at 0818, Until 02/28/19 at 0842, Irritation, PREPROCEDURE, Administer one drop EVERY 5 MINUTES x 3 to operative eye, Pre-op (Holding/SDS Meds) Given 02/28/2019 8:42 AM EDT 1 Drop Right Eye pilocarpine (PILOCAR) 1 % ophthalmic solution ONCE PRN, 1 dose, Starting on 02/28/19 at 0953, Until 02/28/19 at 0953, Intra-op Given 02/28/2019 9:53 AM EDT 2 Drops Right Eye sodium chloride 0.9% syringe Intravenous, PREPROCEDURE, Starting on Thu02/27/19 at 1438, Until 02/28/19 at 2105, Line Care, Pre-op Priming, For priming IV saline lock, Pre-op (Holding/SDS Meds) Given 02/28/2019 8:38 AM EDT 10 mL tropicamide (MYDRIACYL) 1 % ophthalmic solution 1 Drop 1 Drop, Ophthalmic, PREPROCEDURE, 3 doses, Starting on Thu02/28/19 at 0818, Until Thu02/28/19 at 0842, PREPROCEDURE, Administer 1 drop EVERY 5 MINUTES x 3 to operative eye, Pre-op (Holding/SDS Meds) Given 02/28/2019 8:42 AM EDT 1 Drop Right Eye documented in this encounter Discontinued Medications Medication Sig Discontinue Reason Start Date End Da te ALLERGY RELIEF D-24HR 10-240 mg Oral Tablet Sustained Release 24 hrIndications:Seasonal allergic rhinitis due to pollen TAKE 1 TABLET BY MOUTH EVERY DAY DELETE- Stopped by provider 12/27/2018 02/23/2019 sulfamethoxazole-trimeth oprim (BACTRIM DS) 800-160 mg Oral TabletIndications:UTI (urinary tract infection), uncomplicated Take 1 Tab by mouth every 12 hours for 5 days. DELETE-Therapy completed 02/21/2019 02/23/2019 loratadine (CLARITIN) 10 mg Oral Tablet Take 10 mg by mouth every morning. DELETE- Entered in Error 02/23/2019 ciprofloxacin HCl (CIPRO) 500 mg Oral Tablet Take 500 mg by mouth every 12 hours. DELETE-Therapy completed 02/28/2019 documented as of this encounter Historical Medications * This list may reflect changes made after this encounter. ciprofloxacin HCl (CIPRO) 500 mg Oral Tablet Take 500 mg by mouth every 12 hours. 02/28/2019 ALLERGY RELIEF D-24HR 10-240 mg Oral Tablet Sustained Release 24 hr Take 1 Tab by mouth every morning. 0 01/01/2019 08/09/2019 loratadine (CLARITIN) 10 mg Oral Tablet Take 10 mg by mouth every morning. 02/23/2019 added in this encounter Active and Recently Administered Medications Times are shown in EDT. PRN Medication Order 02/26/2019 02/27/2019 02/28/2019 chondroitin sulf-sod hyaluronate (DUOVISC) intra-ocular kit (COMPLETED) ONCE PRN, 1 dose, Starting on Thu02/28/19 at 0952, Until Thu02/28/19 at 0952, Intra-op 0952 (Given - Provid er: Dakota Ramirez MD) Epi-Shugarcaine mixture (COMPLETED) 3.8 mL, ONCE PRN, 1 dose, Starting on Thu02/28/19 at 0954, Until Thu02/28/19 at 0954, Intra-op 0954 (Given - Provid er: Dakota Ramirez MD) EPINEPHrine HCl (PF) 0.5 mL in balanced salts (BSS) 500 mL Irrigation (COMPLETED) ONCE PRN, 1 dose, Starting on Thu02/28/19 at 1002, Until Thu02/28/19 at 1002, Intra-op 1002 (Given - Provid er: Dakota Ramirez MD) moxifloxacin (VIGAMOX) 0.5 % ophthalmic solution (COMPLETED) ONCE PRN, 1 dose, Starting on Thu02/28/19 at 0952, Until 02/28/19 at 0952, Intra-op 0952 (Given - Provid er: Daktoa Ramirez MD) phenylephrine (MYDFRIN) 2.5 % ophthalmic solution 1 Drop (COMPLETED) 1 Drop, Ophthalmic, PREPROCEDURE, 3 doses, Starting on Thu02/28/19 at 0818, Until Thu02/28/19 at 0842, Irritation, PREPROCEDURE, Administer one drop EVERY 5 MINUTES x 3 to operative eye, Pre-op (Holding/SDS Meds) 0832 (Given - Provid er: Kandace Veras RN)0836 (Given - Provider: Kandace Veras RN)0842 (Given - Provider: Kandace Veras RN) pilocarpine (PILOCAR) 1 % ophthalmic solution (COMPLETED) ONCE PRN, 1 dose, Starting on Thu02/28/19 at 0953, Until Thu02/28/19 at 0953, Intra-op 0953 (Given - Provid er: Dakota Ramirez MD) sodium chloride 0.9% syringe Intravenous, PREPROCEDURE, Starting on Thu02/27/19 at 1438, Until Thu02/28/19 at 2105, Line Care, Pre-op Priming, For priming IV saline lock, Pre-op (Holding/SDS Meds) 0838 (Given - Provid er: Kandace Veras RN) tropicamide (MYDRIACYL) 1 % ophthalmic solution 1 Drop (COMPLETED) 1 Drop, Ophthalmic, PREPROCEDURE, 3 doses, Starting on Thu02/28/19 at 0818, Until Thu02/28/19 at 0842, PREPROCEDURE, Administer 1 drop EVERY 5 MINUTES x 3 to operative eye, Pre-op (Holding/SDS Meds) 0832 (Given - Provid er: Kandace Veras RN)0836 (Given - Provider: Kandace Veras RN)0842 (Given - Provider: Kandace Veras RN) documented in this encounter Orders Discharge Count Last Ordered Date First Orde red Date DISCHARGE PATIENT 1 02/28/2019 documented in this encounter Additional Health Concerns Assessment Noted Time A fall risk assessment has been complete d for the patient 12/06/2018 7:30 AM EDT documented as of this encounter Care Teams Activity Director Relationship Specialty Start Date End Date Mann Irene MD [address] [place] [address] PCP - General Internal Medicine 08/23/12 07/13/22 documented as of this encounter
--- OUTSIDE RECORDS SUMMARY | 2024-03-27 15:05 | XMS_ITS | Encounter Summary ---
Author Organization [place] [address] Care Team Providers Care Family Literacy Coordinator Name Role Phone Mann Irene MD Primary Care Provider [phone] Reason for Referral * Consultation (Routine) - Closed Specialty Diagnoses / Procedures Referred By Contac t Referred To Contact Diagnoses Cataract of left eye, unspecified cataract type Cataract of right eye, unspecified cataract type Mann Irene MD [address] [place] [address] Phone: tel: fax: Conor Ramirez MD [address] [place] [address] Phone: tel: fax: Referral ID Status Reason Start Date Expiration Date Visits Re quested Visits Authorized [id number] Closed 12/16/2018 12/16/2019 99 99 Encounter Details Date Type Department Care Team (Late st Contact Info) Description 12/16/2018 Orders Only [facility] [place] [address] Mann Irene MD [address] [facility] [place] [place] [address] Cataract of left eye, unspecified cataract type (Primary Dx); Cataract (lens) fragments in eye following cataract surgery; Cataract of right eye, unspecified cataract type Social History Tobacco Use Types Packs/Day Years [...] EST Office Visit [facility] [address] [place] [address] Gilda Francis PA [address] [place] [address] Scheduled Referrals Name Type Priority Associated Diagnoses Order Schedule AMB REFERRAL TO OPHTHALMOLOGY Outpatient Referral Routine Cataract of left eye, unspecified cataract type Cataract of right eye, unspecified cataract type Ordered: 12/16/2018 documented as of this encounter Visit Diagnoses Diagnosis Cataract of left eye, unspecified cataract type- Primary Cataract (lens) fragments in eye following cataract surgery Cataract of right eye, unspecified cataract type documented in this encounter Additional Health Concerns Assessment Noted Time A fall risk assessment has been complete d for the patient 12/06/2018 7:30 AM EDT documented as of this encounter Care Teams Family Literacy Coordinator Relationship Specialty Start Date End Date Mann Irene MD [address] [place] [id number] PCP - General Internal Medicine 08/23/12 07/13/22 documented as of this encounter
--- OUTSIDE RECORDS SUMMARY | 2024-03-27 15:05 | XMS_ITS | Encounter Summary ---
Author Organization [place] [address] Care Team Providers Care Batch Still Operator Name Role Phone Mann Irene MD Primary Care Provider [phone] Reason for Visit * Reason Comments Pre-op Exam CATARACT EXTRACTION WITH PHACOEMULSIFICATION AND INTRAOCULAR LENS Conor Ramirez MD on 02/28/19 Encounter Details Date Type Department Care Team (Latest Contact Info) Description 02/21/2019 10:40 AM EDT Office Visit [facility] [place] [facility] [place] [address] Carl Irene MD [address] [place] [address] [place] [address] Pre-op examination (Primary Dx); Age-related cataract of both eyes, unspecified age-related cataract type; Osteoarthritis, unspecified osteoarthritis type, unspecified site; Need for influenza vaccination; UTI (urinary tract infection), uncomplicated Social History Tobacco Use Types Packs/Day Years [...] Reading Time Taken Comments Blood Pressure 130/80 02/21/2019 10:28 AM EDT Pulse 87 02/21/2019 10:28 AM EDT Temperature 36.8 ??C (98.2 ??F) 02/21/2019 10:28 AM E DT Respiratory Rate 20 02/21/2019 10:28 AM EDT Oxygen Saturation 98% 02/21/2019 10:28 AM EDT Inhaled Oxygen Concentration - - Weight 76.7 kg (169 lb) 02/21/2019 10:28 AM EDT Height 160 cm (5' 3 ) 02/21/2019 10:28 AM EDT Body Mass Index 29.94 02/21/2019 10:28 AM EDT documented in this encounter Functional Status * Is the person deaf or does he/she have serious difficulty hearing? Answer Date of Assessment Author No 12/06/2018 7:32 AM EDTomi José CCMA * Is the [...] Filled Start Date End Date sulfamethoxazole-tr imethoprim (BACTRIM DS) 800-160 mg Oral TabletIndications:U TI (urinary tract infection), uncomplicated Take 1 Tab by mouth every 12 hours for 5 days. 10 Tab 02/21/2019 02/23/2019 documented in this encounter H&P Notes * Carl Irene MD - 02/21/2019 10:40 AM [...] ED MAIN OR; Service: Orthopedics ??? HYSTERECTOMY ??? [...] Faustin Cardiac Risk Index (Circulation 1999; 100: 2213-0871) 1. High risk surgical procedures (intraperitoneal, intrathoracic, [...] Carl Irene MD documented in this encounter Miscellaneous Notes * Patient Instructions - Carl Irene MD - 02/21/2019 10:40 AM EDT Stop Asprin 81 mg, Diclofenac 75 mg, and your eye supplement today then restart them after surgery * Addendum Note - Rahul Schilling MA - 02/21/2019 10:40 AM EDTAddended by: RAHUL SCHILLING on: 02/21/2019 11:04 AM Modules accepted: Orders documented in this encounter Plan of Treatment Upcoming Encounters Date Type Department Care Team (Late st Contact Info) Description 05/16/2024 9:30 AM EST Office Visit [facility] [address] [place] [id number] Gilda Francis PA [address] [place] [address] documented as of this encounter Visit Diagnoses Diagnosis Pre-op examination- Primary Preoperative examination, unspecified Age-related cataract of both eyes, unspecified age-related cataract type Osteoarthritis, unspecified osteoarthritis type, unspecified site Need for influenza vaccination Need for prophylactic vaccination and inoculation against influenza UTI (urinary tract infection), uncomplicated Urinary tract infection, site not specified documented in this encounter Discontinued Medications Medication Sig Discontinue Reason Start Date End Da te apixaban (ELIQUIS) 2.5 mg Oral Tablet Take 1 Tab by mouth 2 times daily. Cancelled by 12/30/2018 02/21/2019 documented as of this encounter Orders Immunization/Injection Count Last Ordered Date First Ordered Date FLUZONE HIGH DOSE 1 02/21/2019 documented in this encounter Additional Health Concerns Assessment Noted Time A fall risk assessment has been complete d for the patient 12/06/2018 7:30 AM EDT documented as of this encounter Care Teams Batch Still Operator Relationship Specialty Start Date End Date Mann Irene MD [address] [facility] [place] [address] PCP - General Internal Medicine 08/23/12 07/13/22 documented as of this encounter
--- OUTSIDE RECORDS SUMMARY | 2024-03-27 15:05 | XMS_ITS | Encounter Summary ---
Author Organization [facility] [place] [address] Care Team Providers Care Health Coordinator Name Role Phone Mann Irene MD Primary Care Provider [phone] Encounter Details Date Type Department Care Team (Latest Contact Info) Description 02/23/2019 Travel Social History Tobacco Use Types Packs/Day [...] documented as of this encounter Care Teams Health Coordinator Relationship Specialty Start Date End Date Mann Irene MD [address] [place] [phone] PCP - General Internal Medicine 08/23/12 07/13/22 documented as of this encounter
--- OUTSIDE RECORDS SUMMARY | 2024-03-27 15:05 | XMS_ITS | Encounter Summary ---
Author Organization [place] [address] Care Team Providers Care Operations Administrator Name Role Phone Mann Irene MD Primary Care Provider [phone] Encounter Details Date Type Department Care Team (Late st Contact Info) Description 02/11/2019 Orders Only [facility] [address] [place] [address] Brittany Slaughter CCMA [address] [place] [address] Social History Tobacco Use Types Packs/Day Years [...] Author No 12/06/2018 7:32 AM EDTomi José ASHLEY knutsonElver * Does this person have difficulty dressing or bathing? Answer Date of Assessment Author No 12/06/2018 7:32 AM EDT Tomi Slaughter deysiroxanne CLAUDIA * Because of a physical, [...] Last Filled Start Date End Date ergocalciferol (VITAMIN D) 50,000 unit Oral Capsule Take 1 Cap by mouth once a week. 12 Cap 3 02/11/2019 02/06/2020 documented in this encounter Plan of Treatment Upcoming Encounters Date Type Department Care Team (Late st Contact Info) Description 05/16/2024 9:30 AM EST Office Visit [facility] [address] [place] [address] Gilda Francis PA [address] [place] [address] documented as of this encounter Visit Diagnoses Not on filedocumented in this encounter Discontinued Medications Medication Sig Discontinue Reason Start Date End Da te ergocalciferol (VITAMIN D) 50,000 unit Oral Capsule Take 1 Cap by mouth once a week. Reorder 01/27/2019 02/11/2019 documented as of this encounter Additional Health Concerns Assessment Noted Time A fall risk assessment has been complete d for the patient 12/06/2018 7:30 AM EDT documented as of this encounter Care Teams Operations Administrator Relationship Specialty Start Date End Date Mann Irene MD [address] [place] [place] [address] PCP - General Internal Medicine 08/23/12 07/13/22 documented as of this encounter
--- OUTSIDE RECORDS SUMMARY | 2024-03-27 15:05 | XMS_ITS | Encounter Summary ---
Author Organization [employer] [place] [address] Care Team Providers Care Rand Cementer Name Role Phone Mann Irene MD Primary Care Provider [phone] Reason for Visit * Reason Onset Date Comments Medication Management 01/27/2019 Encounter Details Date Type Department Care Team (Late st Contact Info) Description 01/27/2019 Patient Outreach [facility] [address] [place] [address] Molly Torres, PharmD Medication Management Social History Tobacco Use Types Packs/Day Years [...] mouth once a week. 12 Cap 3 01/27/2019 02/11/2019 documented in this encounter Progress Notes * Molly Torres PharmD - 01/27/2019 11:25 AM EDT Order placed for Vitamin D. Sent to [facility] mail order per patient request. Patient denies any further questions, concerns or comments regarding medications at this time. Molly Torres PharmD * Molly Torres PharmD - 01/27/2019 10:34 AM EDT Pharmacy Consult 01/27/2019 with Molly Torres PharmD: Stella Hylton was referred for medication reconciliation post-discharge. Current medication list and discharge medication lists were reconciled with patient. All new and discontinued medications aswell as dosage changes were reviewed. All medication questions and concerns were addressed. with pharmacist. Medications were reviewed for appropriateness, efficacy, and ADRs. Pharmacist spoke to patient telephonically. Subjective: Patient's chief complaint with regards to medication is needing vitamin D. Patient is a fair historian. Patient is able to provide most information about home medications including name, dose, frequency, and indication with significant prompting from pharmacist. Adherence with medication regimen ass essed. Objective: Current Outpatient Medications: ??? ALLERGY RELIEF D-24HR [...] DAYS., Disp: 60 Tab, Rfl: 0 ??? oxyCODONE (ROXICODONE) 5 mg Oral Tablet, [...] Take by mouth daily., Disp: , Rfl: ??? apixaban (ELIQUIS) 2.5 mg Oral Tablet, Take 1 Tab by mouth 2 times daily., Disp: 60 Tab, Rfl: 0 Relevant Labs: Not assessed. Immunization History Administered Date(s) Administered ??? Influenza High Dose 02/21/2015 ??? Influenza Vaccine, Unspecified Formulation 02/04/2014, 02/09/2016 ??? PPD Test 02/20/2014 ??? Pneumococcal Conjugate Vaccine 13 Valent 02/28/2015 ??? Pneumococcal Polysaccharide 23 Valent 10/13/2012 ??? Tdap 02/28/2015 Assessment: Medication list reviewed and updated, duplicates and discontinued meds removed. Of note, patient reports she is not taking Eliquis at home. Sean at [facility] reports she was taking it while she was there, but she discharged on 01/14 and [facility] does not show it on file (spoke to Janet.) Patient reports she has been taking aspirin 81mg only. Patient also reports she is not taking tramadol at all, and has reduced use of tizanidine and oxycodone to 1 tablet BID. Patient expresses concern that medication list indicated she was to be on Vitamin D3 weekly for 8 weeks and she has not received that medication since discharge. Problem Pharmacist Recommendation anticoagulation Patient was to take Eliquis for one month following surgery, but appears to have only taken for two weeks due to confusion after discharge from rehab. Patient is taking low dose ASA. Defer to PCP and/or Ortho for further management. Vitamin D deficiency Patient reports med list from spring indicated she should be on weekly vitamin D 50,000 units, but she has not had any since discharge on 01/14. Defer to PCP. Health Maintenance Topics Addressed None. Thank you for allowing me to participate in the care of this patient. Molly Torres PharmD [facility] Grinder Hand Pharmacist documented in this encounter Miscellaneous Notes * Addendum Note - Molly Torres, PharmD - 01/27/2019 11:25 AM EDTAddended by: MOLLY TORRES on: 01/27/2019 11:25 AM Modules accepted: Orders * Telephone Encounter - Molly Torres PharmTiti - 01/27/2019 11:21 AM EDT Agreed about the Eliquis, just FYI. Order placed for Vitamin D. Thanks! * Telephone Encounter - Mann Irene MD - 01/27/2019 11:03 AM EDT No reason to restart Eliquis at this time. Would recommend the Vitamin D 50,000 units weekly. If needs Rx for this, ok to send in for 1 year. * Patient Instructions - Molly Torres, PharmD - 01/27/2019 10:48 AM EDT documented in this encounter Plan of Treatment Upcoming Encounters Date Type Department Care Team (Late st Contact Info) Description 05/16/2024 9:30 AM EST Office Visit [facility] [address] [place] [address] Gilda Francis PA [address] [place] [address] documented as of this encounter Visit Diagnoses Not on filedocumented in this encounter Discontinued Medications Medication Sig Discontinue Reason Start Date End Da te loratadine/pseudoephed rine (LORATADINE-D ORAL) Take by mouth daily. DELETE-Duplicate 01/27/2019 acetaminophen (TYLENOL) 500 mg Oral Tablet Take 2 Tabs by mouth every 8 hours as needed. Stopped by patient - ineffective 12/30/2018 01/27/2019 traMADol (ULTRAM) 50 mg Oral Tablet Take 1-2 Tabs by mouth every 6 hours as needed for Pain. May use for moderate 1-5 pain Stopped by patient - ineffective 12/30/2018 01/27/2019 documented as of this encounter Historical Medications * This list may reflect changes made after this encounter. aspirin 81 mg Oral Tablet, Delayed Release (E.C.) Take 1 Tab by mouth every morning. 01/28/2023 added in this encounter Additional Health Concerns Assessment Noted Time A fall risk assessment has been complete d for the patient 12/06/2018 7:30 AM EDT documented as of this encounter Care Teams Rand Cementer Relationship Specialty Start Date End Date Mann Irene MD [address] [place] [id number] PCP - General Internal Medicine 08/23/12 07/13/22 documented as of this encounter
--- OUTSIDE RECORDS SUMMARY | 2024-03-27 15:05 | XMS_ITS | Encounter Summary ---
Author Organization [place] [address] Care Team Providers Care Software Support Representative Name Role Phone Mann Irene MD Primary Care Provider [phone] Reason for Visit * Reason Comments Medication Refill Encounter Details Date Type Department Care Team (Late st Contact Info) Description 12/25/2018 Refill [facility] [place] [address] [address] [address] Mann Irene MD [...] No 12/06/2018 7:32 AM EDT oTmi Slaughter CCMA * Does this person have [...] 1 TABLET BY MOUTH EVERY DAY 30 Tab 12/27/2018 02/23/2019 documented in this encounter Plan of Treatment Upcoming Encounters Date Type Department Care Team (Late st Contact Info) Description 05/16/2024 9:30 AM EST Office Visit [facility] [address] [place] [address] Gilda Francis PA [address] [place] [address] documented as of this encounter Visit Diagnoses Diagnosis Seasonal allergic rhinitis due to pollen documented in this encounter Discontinued Medications Medication Sig Discontinue Reason Start Date End Da te ALLERGY RELIEF D-24HR 10-240 mg Oral Tablet Sustained Release 24 hrIndications:Seasonal allergic rhinitis due to pollen TAKE 1 TABLET BY MOUTH EVERY DAY Reorder 11/19/2018 12/25/2018 documented as of this encounter Additional Health Concerns Assessment Noted Time A fall risk assessment has been complete d for the patient 12/06/2018 7:30 AM EDT documented as of this encounter Care Teams Software Support Representative Relationship Specialty Start Date End Date Mann Irene MD [address] [place] [phone] PCP - General Internal Medicine 08/23/12 07/13/22 documented as of this encounter
--- OUTSIDE RECORDS SUMMARY | 2024-03-27 15:05 | XMS_ITS | Encounter Summary ---
Author Organization [place] [address] Care Team Providers Care Java Programming Professor Name Role Phone Mann Irene MD Primary Care Provider [phone] Reason for Visit * Auth/Cert/Inpt Specialty Diagnoses / Procedures Referred By Ramona t Referred To Contact Diagnoses Primary osteoarthritis of left knee Primary osteoarthritis of left knee [M17.12] Procedures [place] TOTAL KNEE ARTHROPLASTY left knee total replacement Referral ID Status Reason Start Date Expiration Date Visits Re quested Visits Authorized [id number] 1 1 Encounter Details Date Type Department Care Team (Late st Contact Info) Description 12/28/2018 2:15 PM EDT Anesthesia Event EDG PERIOP [facility] [place] [address] Eduardo Interiano MD [address] [place] [address] [address] [place] [address] Tanya Lawrence APRN [address] [place] [address] [address] [place] [address] Anesthesia Record Procedure Summary Procedure Name Responsible Anesthesiologist Anesthesia Start Time Anesthesia Stop Time TOTAL KNEE REPLACEMENT/ARTHROP LASTY (Left) Eduardo Interiano MD 12/28/18 1415 12/28/18 1546 Events Date Time Event Comment 12/28/2018 1300 1309 Block/ Injection Placed 1339 AN Equip Check 1415 An Start 1415 An Start Data 1415 Immediate Pre Anesthetic Ass es 1421 An Induction 1424 An LMA 1438 Anesthesia Ready 1448 Time out 1448 An Tourn Inflated 300 1448 Incision 1522 An Tourn Deflated 1534 Airway Removed 1537 an stop data 1546 Handoff I completed my SBAR handoff to [...] of understanding from the receiving PACU/ICU 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 generating 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 1546 An Stop Meds Name Total fentaNYL 50 MCG/ML INJ 50 mcg fentaNYL 50 MCG/ML INJ 100 mcg bupivacaine 0.5%-EPINEPHrine 1:200,000 ( PF) injection 20 mL propofol (DIPRIVAN) injection 170 mg glycopyrrolate (ROBINUL) injection 0.5 m g ondansetron (ZOFRAN) injection 4 mg /2 m L 4 mg dexamethasone (DECADRON) injection 4 mg/ mL 8 mg ephedrine injection 30 mg phenylephrine 100 mcg/ml 10ml (syringe) 200 mcg ceFAZolin (ANCEF) IVPB 2 g 2 g succinylcholine (ANECTINE) 20 mg/mL inje ction 60 mg lactated ringers infusion 1,000 mL * Agents Name O2 Et Sevoflurane Et Desflurane * Blood No blood administrations on file. Lines, Drains, and Airways Type Details Placement Removal Peripheral IV 12/28/18; 0958; 20; Distal, Right, Dorsal; Forearm; elvi n ; 1; None; 12/31/18; 0910; Therapy completed; Catheter intact, Dressing applied, No Complications 12/28/18 0958 by Julianna Valenzuela, RN 12/31/18 0910 by Julianna Valenzuela, RN Airway Device: ETT- Cuffed; Size: 7 mm; Placement Date: 12/28/18; Placement Time: 1428 (created via procedure documentation); Removal Date: 12/28/18; Removal Time: 1534 12/28/18 1428 by Jonathan Holland MD 12/28/18 1534 by Noelle Joy Incision/Procedural Site 12/28/18; 1501; Knee; Left; 12/31/18; 1531 12/28/18 1501 by Radha Ochoa RN 12/31/18 1531 by Discharge Provider, Cristy documented in this encounter Social History Tobacco [...] Tomi Huggins CCMA documented in this encounter Procedure Notes * Noelle Joy - 12/28/2018 2:56 PM EDTAssociated Order(s): Airway Intraop Airway Placement: Date/Time: 12/28/2018 2:28 PM [...] not seat due to patient being edentulous. * Marisol Alva MD - 12/28/2018 1:34 PM EDTAssociated Order(s): Peripheral Block by Anesthesia Peripheral Block by Anesthesia Procedure Date/Time: 12/28/2018 [...] 5ml LA surrounding nerve by ultrasonographc visualization documented in this encounter OR Notes * Anesthesia Postprocedure Evaluation - Eduardo Inetriano MD - 12/28/2018 7:58 PM EDT Post-Anesthesia Evaluation Note Patient Name: Stella Hylton Patient Date: December 28, 2018 Patient Location: PACU Post OP Vitals: stable Level of Consciousness: awake, alert and oriented Nausea Controlled: yes Post Anesthesia Pain: adequate analgesia Long Acting Local Anesthetic: single shot Airway Patency: patent Difficult Airway: no Respiratory: nasal canula and spontaneous ventilation Cardiovascular: stable Hydration: euvolemic Perioperative complications: NONE Vitals: 12/28/18 1844 BP: 126/64 Pulse: 77 Resp: 16 Temp: 36.2 ??C (97.1 ??F) SpO2: 97% * Anesthesia Preprocedure Evaluation - Marisol Alva MD - 12/15/2018 7:15 AM EDT Pre-Anesthesia Evaluation Note Patient Name: Stella Hylton Sex: female Patient : 1945 Age: 73 y.o. Patient Date: December 15, 2018 Procedure(s): left knee total replacement Anesthesia Evaluation [...] - negative ROS Endo/Other (+)Obese: Arthritis: Osteo LPTA Additional Pre-evaluation comments Labs pending per surgeon BMI 31.1 Anesthesia Plan ASA 2 Last solid intake: The patient has not eaten within the last 8 hours. Last clear liquid intake: The patient has not had clear liquids within the last 2 hours. Anesthesia Plan: general and regional Induction: intravenous Monitors: STD Nerve block requested by the surgeon for post operative pain management. Adductor canal block. PONV Risk Score: 3. Score of 3 or more is High Risk for PONV, combination antiemetic prophylaxis isindicated. Informed consent Anesthetic plan and risks discussed with: patient and family. Use of blood products discussed with patient and family whom. PCP Clearance Obtained Chart Reviewed and patient examined documented in this encounter Plan of Treatment Upcoming Encounters Date Type Department Care Team (Late st Contact Info) Description 05/16/2024 9:30 AM EST Office Visit [facility] [address] [place] [phone] Gilda Francis PA [address] [place] [address] documented as of this encounter Procedures Procedure Name Priority Date/Time Associated Diagnosis Comments INTRAOP AIRWAY PLACEMENT Routine 12/28/2018 2:56 PM EDT PERIPHERAL BLOCK Routine 12/28/2018 1:34 PM EDT documented in this encounter Results * INTRAOP AIRWAY PLACEMENT (12/28/2018 2:56 PM EDT) Narrative [facility] - 12/28/2018 2:56 PM EDT Noelle [...] sizes: 90 Technique: Video laryngoscope Laryngoscope blade: Raymundo Blade size: 3 Grade view: I Airway type: ETT- cuffed Intubation assist devices: Stylet 14fr Airway location: Oral Device size: 7mm Secured at: 21 cm Measured from: Gum Placement verified: Auscultation, End tidal CO2 and Symmetric chestwall motion Condition: Atraumatic and Unchanged Insertion attempts: 1 Title: RNSA ETT placed after LMA would not seat due to patient being edentulous. us Jonathan Holland MD [place] ANESTHESIA Edited [facility] [address] [place] [address] * Peripheral Block by Anesthesia (12/28/2018 1:34 PM EDT) Narrative [facility] - 12/28/2018 1:34 PM EDT Marisol [...] Alva MD ANESTHESIA ORDERABLES Final Resu lt [facility] [address] [place] [id number] documented in this encounter Visit Diagnoses Not on filedocumented in this encounter Administered Medications Inactive Administered Medications - up to 1 most recent administrations Medication Order MAR Action Action Date Dose Rate Site bupivacaine-EPINEPHrine 0.5 %-1:200,000 injection PRN (Anesthesia), Starting on Thu12/28/18 at 1309, Until Thu12/28/18 at 1546, Anesthesia Intra-op Given 12/28/2018 1:09 PM EDT 20 mL ceFAZolin (ANCEF) IVPB 2 g 2 g, Intravenous, ONCE PREPROCEDURE, 1 dose, On Thu12/28/18 at 0645, Administer over 30 Minutes, Pre-op (Antibiotic) Given 12/28/2018 2:40 PM EDT 2 g dexamethasone (DECADRON) injection Intravenous, PRN (Anesthesia), Starting on Thu12/28/18 at 1431, Until Thu12/28/18 at 1546, Anesthesia Intra-op Given 12/28/2018 2:31 PM EDT 8 mg ePHEDrine injection Intravenous, PRN (Anesthesia), Starting on Thu12/28/18 at 1441, Until Thu12/28/18 at 1546, Anesthesia Intra-op Given 12/28/2018 2:52 PM EDT 10 mg fentaNYL (SUBLIMAZE) injection PRN (Anesthesia), Starting on Thu12/28/18 at 1304, Until Thu12/28/18 at 1546, Anesthesia Intra-op Given 12/28/2018 1:04 PM EDT 50 mcg fentaNYL (SUBLIMAZE) injection Intravenous, PRN (Anesthesia), Starting on Thu12/28/18 at 1421, Until Thu12/28/18 at 1546, Anesthesia Intra-op Given 12/28/2018 3:38 PM EDT 50 mcg glycopyrrolate (ROBINUL) injection PRN (Anesthesia), Starting on Thu12/28/18 at 1446, Until Thu12/28/18 at 1546, Anesthesia Intra-op Given 12/28/2018 2:51 PM EDT 0.2 mg lactated ringers infusion Intravenous, at 100 mL/hr, PREPROCEDURE CONTINUOUS, Starting on Thu12/27/18 at 0832, Until Thu12/28/18 at 1801, To be given in SDS/Pre-op Holding Area, Pre-op (Holding/SDS Meds) New Bag 12/28/2018 3:25 PM EDT ondansetron (ZOFRAN) injection Intravenous, PRN (Anesthesia), Starting on Thu12/28/18 at 1431, Until Thu12/28/18 at 1546, Anesthesia Intra-op Given 12/28/2018 2:31 PM EDT 4 mg phenylephrine injection PRN (Anesthesia), Starting on Thu12/28/18 at 1436, Until Thu12/28/18 at 1546, Anesthesia Intra-op Given 12/28/2018 2:46 PM EDT 100 mcg propofol (DIPRIVAN) injection Intravenous, PRN (Anesthesia), Starting on Thu12/28/18 at 1421, Until Thu12/28/18 at 1546, Anesthesia Intra-op Given 12/28/2018 2:27 PM EDT 50 mg succinylcholine (ANECTINE) injection PRN (Anesthesia), Starting on Thu12/28/18 at 1427, Until Thu12/28/18 at 1546, Anesthesia Intra-op Given 12/28/2018 2:27 PM EDT 60 mg documented in this encounter Additional Health Concerns Assessment Noted Time A fall risk assessment has been complete d for the patient 12/06/2018 7:30 AM EDT documented as of this encounter Care Teams Java Programming Professor Relationship Specialty Start Date End Date Mann Irene MD [address] [place] [phone] PCP - General Internal Medicine 08/23/12 07/13/22 documented as of this encounter
--- OUTSIDE RECORDS SUMMARY | 2024-03-27 15:05 | XMS_ITS | Encounter Summary ---
Author Organization [place] [address] Care Team Providers Care Performance Architect Name Role Phone Mann Irene MD Primary Care Provider [phone] Reason for Visit * Auth/Cert/Inpt Specialty Diagnoses / Procedures Referred By Ramona mcdaniel Referred To Contact Diagnoses Primary osteoarthritis of left knee Primary osteoarthritis of left knee [M17.12] Procedures [place] TOTAL KNEE ARTHROPLASTY left knee total replacement Referral ID Status Reason Start Date Expiration Date Visits Re quested Visits Authorized [id number] 1 1 Encounter Details Date Type Department Care Team (Latest Contact Info) Description 12/28/2018 9:29 AM EDT - 12/31/2018 9:30 AM EDT Hospital Encounter EDG 7D ORTHO [facility] [place] [address] Bruce Oh MD [address] [place] [address] Discharge Disposition: Long-Term Facility Social History Tobacco Use Types Packs/Day Years [...] Sign Reading Time Taken Comments Blood Pressure 99/61 12/31/2018 9:10 AM EDT Pulse 102 12/31/2018 9:10 AM EDT Temperature 37 ??C (98.6 ??F) 12/31/2018 6:13 AM EDT Respiratory Rate 16 12/31/2018 9:10 AM EDT Oxygen Saturation 94% 12/31/2018 9:10 AM EDT Inhaled Oxygen Concentration - - Weight 78.5 kg (173 lb) 12/28/2018 9:49 AM EDT Height 160 cm (5' 3 ) 12/28/2018 9:49 AM EDT Body Mass Index 30.65 12/28/2018 9:49 AM EDT documented in this encounter Functional Status * Is the person deaf or does he/she have serious difficulty hearing? Answer Date of Assessment Author No 03/05/2018 2:39 PM EDT Elida Pavon CCMA * Is the person blind or does he/she have serious difficulty seeing even when wearing glasses? Answer Date of Assessment Author No 03/05/2018 2:39 PM EDT Elida Pavon CCMA * Does this person have serious difficulty walking or climbing stairs? Answer Date of Assessment Author No 03/05/2018 2:39 PM EDT Elida Pavon CCMA * Does this person have difficulty dressing or bathing? Answer Date of Assessment Author No 03/05/2018 2:39 PM EDT Elida Pavon CCMA * Because of a physical, mental or emotional condition, does this person have difficulty doing errands alone such as visiting a doctor's office or shopping? Answer Date of Assessment Author No 03/05/2018 2:39 PM EDT Elida Pavon CCMA documented as of this encounter Mental Status * Because of a physical, mental or emotional condition, does this person have serious difficulty concentrating, remembering or making decisions? Answer Entry Date Author No 03/05/2018 2:39 PM EDT Elida Pavon CCMA documented in this encounter Discharge Instructions * Discharge Instructions* Radha Mcbride RN - 12/30/2018 4:10 PM EDT Dear Patient, The staff of at [facility] sincerely hopes that your hospital stay was pleasant. We try to ensure that our patients are cared for in the most respectful and comfortable way. The staff members of pride themselves on delivering kind and compassionate care to each and every patient. Working collaboratively with physicians, social workers, pillowcase cleaner, and the discharge team, we attempt to anticipate your needs, in preparation for discharge. This discharge information includes the answers to many frequently asked questions that you may have. It is our goal that you have information that is necessary to safely care for yourself at home. With this goal in mind, we have included information on any new medications that may have been started while you were in the hospital, including the name, dosages and side effects that you may experience. If you have any questions about current medications prior to discharge, please ask your nurse for further explanation. Thank you for choosing [facility]. We hope that you have had a good experience. Sincerely, The Staff of SIGNS AND SYMPTOMS OF INFECTION A wound infection happens when a type of germ ( bacteria) starts growing in the wound. In some cases, this can cause the wound to break open. If cared for properly, the infected wound will heal from the inside to the outside. Wound infections need treatment. CAUSES An infection is caused by bacteria growing in the wound. SEEK MEDICAL CARE IF: ??? You have an increase in swelling, pain, or redness around the wound. ??? You have an increase in the amount of drainage coming from the wound. ??? There is a bad smell coming from the wound. ??? More of the wound breaks open. ??? You have a fever over 101 degrees. DRESSINGS Your surgeon has chosen the appropriate wound closure following your surgery. Please choose the correct instructions below (Dermabond Prineo or [place]) that coincide with your wound dressing. ?? DERMABOND PRINEO Your Healthcare Professional may have chosen to use Dermabond Prineo skin closure system to closeyour surgical wound. Dermabond Prineo is a combination of a mesh and a liquid adhesive that allows the incision or wound to be held together during the healing process. Dermabond Prineo should remain in place until your healthcare professional has determined that adequate healing has occurred, which is usually anywhere between 7-14 days. In most cases, Dermabond Prineo is easily removed with little or no discomfort. In the even that you notice the Dermabond Prineo is beginning to loosen or may be coming off, contact your healthcare professional. The following information is provided to help you understand how to care for your incision and is based on the FDA-cleared product labeling. You should always follow the instructions of your healthcare provider. Showering with Prineo With a prineo dressing, patients can shower 24 hours following surgery. Do not soak or scrub you incision or wound. If the dry dressing gets soiled, you can change the gauze as needed. Do not swim orsoak your incision or wound in water. After showering, gently blot your incision or wound dry with a soft towel. If a dry protective dressing is being used over Prineo , it should be replaced with afresh, dry, protective Care should also be taken so that any tape that may be part of the dry protective dressing does notcome into contact with the Prineo because when the tape is removed, it may also remove the Prineo dressing. Wound Healing with Prineo If you experience redness, swelling, discomfort, warmth, or pus, contact your healthcare professional and he or she will determine how your incision or wound is healing and take the necessary steps to address any issue. Exercise with Prineo Do not engage in strenuous exercise that may cause additional stress on your incision or wound. Follow your healthcare professional's guidelines about when you can return to your normal activities. Removing Dermabond Prineo Your healthcare professional will determine when the healing process of your incision or wound has been completed and the Prineo is ready to be remove, which is usually between 7 to 14 days. When healing is complete, your healthcare professional will carefully peel off the Prineo dressing. Prior to removal, do NOT scratch, rub or pick at the mesh. This may loosen the adhesive and mesh before the skin is healed. In the event that you notice the Prineo is beginning to loosen and may be coming off or comes offthe skin/wound, contact your healthcare professional immediately. Ointments or Liquids with Prineo Topical ointments, liquids, or any other product (other than dry dressings) should NOT be applied to the incision while Prineo is in place. These may loosen Prineo from the skin before it has completely healed. If you have any questions or concerns about Dermabond Prineo , please contact your Healthcare Professional. ?? RUTH The dressing that you leave the hospital in is waterproof, therefore, you may shower with the dressing in place. Avoid baths, swimming pools and hot tubs until directed by your surgeon. When showering, allow water to run over the incision and pat it dry. Should the dressing get water inside, remove it immediately. The dressing should be removed 4 to 5 days after discharge and the incision may be left open to air. If the incision is draining, cover with gauze and change daily and as needed until drainage stops. Do not apply any creams, lotions, powders, or medications to your incision. This may interfere withyour normal healing process. Wash your hands frequently with soap and water and before and after contact with the wound site. If you have any questions or concerns, please contact your physician's office. Gel Wrap When you are ready to go home: Be sure to take your SMI cold therapy wrap and gel bags with you for continued comfort and use throughout your rehabilitation. If you don' already have them, ask your nurse or aide to retrieve your SMI gel bags from the patient freezer. Home use precautions: Always follow your physician or caregiver's specific application instructions upon discharge. Your SMI cold therapy wrap and gel bags are designed to last for months following your surgery. Cold therapy instructions: Once frozen, slide gel bags into the gel pouch and secure your wrap to the affected area with the straps. NEVER place frozen gel bags directly onto skin, as this may cause frostbite injury. An additional protective barrier such as a washcloth, hand-towel or pillow-case may be necessary during prolonged treatment applications. Heat therapy instructions: Always follow your physician or caregiver's specific application instructions for heat therapy. Gelbags should be heated in a microwave one at a time. Heat each gel bag for one minute. If needed, add heat in additional 20-second intervals until desired temperature is achieved. USE EXTREME CAUTION! DO NOT OVERHEAT GEL BAG IN THE MICROWAVE THIS MAY CAUSE A SEVERE BURN. The gel pouch and wrap are both latex-free and the gel bag ingredients are non- toxic. If for some reason, the gel bag is punctured, dispose of it and re-order additional gel bags. SMI Wrap care instructions: The SMI cold therapy wrap can be hand washed and air dried. Additional SMI body specific wraps can be re-ordered from [employer] or call [phone]. SMI re-order information: Visit our Patient Retail Store at www.[employer] Telephone orders: If Prescribed: Phil Hose/Compression Stockings Phil hose/compression stockings are used to aid in circulation and prevent blood clots in post-operative and bed-ridden patients. To Apply: When applying stockings, it is best to do so first thing in the morning after resting with the legselevated. This will be the time legs are the least swollen making application a little easier. Gather the stockings down to the toe in your hands. Stretch the stocking over the toe, pulling it over the heel. Once the stocking is over the heel, gently grasp the stocking and pull it up the rest of the leg. Smooth out all wrinkles and do not allow the stocking to roll down the leg causing constriction or skin breakdown. To Remove: Gather the stocking at the ankle and slide the stocking over the heel. Slip off the foot. Maintenance: You MUST remove the stockings daily to bathe feet and legs and inspect the skin for breakdown. Report any signs of skin breakdown to your physician. Observe the lower extremity for circulatory function. Report any abnormalities in color, temperature, or pulses to your physician. Launder the stockings by hand with a mild detergent every couple of days overnight and lay them flat to dry. Reapply the stockings the next morning. Wear nonskid shoes or slippers when ambulating to reduce the risk of falls. You should wear your Phil Stockings for up to one month or until your surgeon discontinues them. DEEP VEIN THROMBOSIS (DVT) WHAT IS A DVT? Deep vein thrombosis, or DVT is a blood clot that forms in a vein deep in the body, usually in the lower leg or thigh but can occur elsewhere in the body. WHO IS AT RISK? Those with any of the following: a history of DVT, certain blood disorders, injury to a deep vein from surgery/broken bone/trauma, slowed blood flow due to decreased activity/movement, and the 1st 6 weeks after giving , recent or ongoing cancer treatment, a central venous catheter, age greater than 60, and overweight/obesity. SIGNS AND SYMPTOMS OF DVT ARE: Swelling of the leg or affected extremity, pain or tenderness in theleg, sometimes more prominent when standing or walking, increased warmth in the area of the leg that???s swollen or painful, and red or discolored skin on the leg or affected extremity. If untreated, a DVT can progress to a PE or pulmonary embolism, a serious condition where the bloodclot travels to the lungs causing serious injury to the lungs and other organs in the body. CALL YOUR PHYSICIAN IMMEDIATELY IF YOU EXPERIENCE: Unexplained shortness of breath, pain with deep breathing, coughing up blood, rapid breathing and fast heart rate. Reference: ???Deep Vein Thrombosis?? , U.S. Department of Health and Human Services, national [place] of Health, National Heart Lungs and Blood [place], Obtained on 04/19/2007 from http: www.nihlb i.nih.gov/health/dci/Diseases/Dvt/DVT_All.html USE OF A WALKER Do not pull on the walker to stand; this could cause you to fall backwards. When coming to a standing position, push up from the chair or bed then reach for the walker. When walking, move the walker first, then the affected leg and finally the stronger one. When sitting, reach back for the chair or bed and let yourself down slowly. When turning corners or turning around, take actual steps to do so. Do not pivot on one foot. Always wear sturdy, well-fitting shoes. Be very careful walking on uneven surfaces, or where the surface is wet, icy, oily or just waxed. Remove throw rugs and be aware of loose carpets. Watch out for dogs, cats, small children and theirtoys. Do not increase your weight bearing until the doctor tells you to do so. USE OF CRUTCHES When coming to a standing position, place both crutches in one hand and use the other hand to push up from the chair. After getting your balance, place one crutch under each arm. When walking with crutches, all weight should be on the hands. At no time should the weight be under the arms. When turning or backing up with crutches, the crutches should stay in front of the body. Be very careful walking on uneven surfaces, or where the surface is wet, icy, oily or just waxed. Always wear sturdy, well-fitting shoes. Remove throw rugs and be aware of loose carpets. Watch out for dogs, cats, children and their toys. When going up stairs, the stronger leg should go up first. When coming down stairs, crutches and the weaker leg should go first. Do not increase your weight bearing until the doctor tells you to do so. NUTRITIONAL SUPPLEMENT Continue taking the oral supplement for one month after discharge to assist with nutritional statusand healing. CONSTIPATION Hard-formed stool or difficult passage of bowel movement is known as constipation. The common causes of constipation are too little fiber in the diet, inactivity, too little fluid, and/or some medications (especially medications for pain). Watch for signs of constipation such as decreased appetite, firmness or distention of the stomach, hard formed stool and straining or pain with bowel movement. There are several things you can do not only to control it, but also to prevent constipation: 1. Try to slowly increase the amount of fiber in your diet. Look for breads with ???bran?? on the label, or whole cereals such as Fiber One, Bran Buds, Bran Checks, or Raisin Bran. Choose brown riceinstead of white rice. Eat dried beans, peas and lentils. Choose raw fruits and vegetables. Eat apples and pears with skin on, raisins, prunes, raspberries, and strawberries for higher fiber choices.Remember the fiber goal is 25-35 grams per day. 2. Drink plenty of liquids (6-8 cups) per day. 3. Be as active as possible. 4. Always respond to the urge to have a bowel movement. 5. After checking with your doctor, the use of Metamucil or other fiber supplements may help. 6. Try to have a bowel movement at the same time every day, preferable 15 to 45 minutes after breakfast. (Remember not to strain). You do not need to have a daily bowel movement. 7. Use over the counter laxatives with caution after trying other methods of relieving constipation. 8. If constipation continues despite the above instructions or you have any blood in your stool, contact your doctor. Reference: [facility] - Tools for Healthier Lives ? Higher Fiber Foods? . [employer].? HOME SAFETY GUIDELINES Medications ??? Discard outdated or unused prescription medications ??? Take medications only as prescribed ??? Call for refills of medication on or Thursday as pain medication is not refilled on the weekend ??? DO NOT take any anti-inflammatory medications while on blood thinners unless specifically ordered by your physician Ice ??? Apply ice to your extremity several times throughout the day. ??? Alternate with the ice on for 20 - 30 minutes then off for 20 - 30 minutes. ??? Always lay a thin towel or clot between the ice and your skin. ??? Apply ice and lay flat with your leg elevated on three pillows 3-5 times per day for about 30 minutes. Floors/Room Arrangement ??? Secure floor coverings ??? Remove throw rugs ??? Avoid clutter ??? Remove cords from pathways ??? Use non-skid shoes and house slippers ??? Clean spills promptly ??? Arrange furniture in room for easy navigation ??? Easy access to all necessary living areas (kitchen, bathroom, living room) Stairs ??? Well lighted ??? Hand rails, if needed ??? Avoid clutter and storage of articles on stairs Electricity ??? Cords not frayed ??? Outlets not overloaded ??? Appliances away from water Kitchen ??? Needed items within reach ??? Consider use of microwave for convenience and safety ??? Fire extinguisher Bathroom ??? Elevated toilet seat ??? Tub/toilet handrails ??? Hand-held shower-head with shower seat ??? Are doors wide enough to accommodate walker or wheelchair? Miscellaneous ??? List of emergency names/numbers ??? Consider use of portable phone with preprogrammed numbers ??? No smoking in bed or with oxygen use ??? Smoke Detectors ??? Exit procedure in case of fire ??? Consider Lifeline Alert System ??? Consider use of night lights ??? Avoid uneven ground/pavement when walking outdoors ??? Carbon-monoxide detector to protect sleeping areas Reference: Centers for Disease Control and Prevention www.cdc.gov ADD: Home Safety [place] www.Homesafetycouncil.org MISCELLANEOUS Activity as tolerated as instructed by Physical Therapy. Crutches/ Walker for home use. Monitor incision/dressing for signs and symptoms of infection which include; increased warmth, redness, and/or drainage, foul odor or temp over 101 degrees. Follow up in physicians office as instructed, anticipate ruth to be removed at follow up visit. Follow up at discharge with Physical Therapy as instructed. Patient must call and make their outpatient appointment at their convenience. Do not drive for six (6) weeks or until you have permission by your physician. PRE-PROCEDURE ANTIBIOTICS Following a total joint replacement, you must be pre-medicated with an antibiotic prior to certain procedures. Please let your physician know that you have a total joint prosthesis so they can prescribe the antibiotic. These procedures include but are not limited to: ??? Any dental procedure ??? Gynecological surgery ??? Any type of infection ??? Ingrown toenails ??? Prostate or bladder surgery ??? Genitourinary tract examinations ??? Dermatology procedures ??? Gastrointestinal procedures (EDG or Colonoscopy) Call [phone] ([facility]) for any questions or concerns. Also feel free to use the After Hours clinic at: [facility] [address] [place], [place] [id number] Thursday-Thursday 9:00 am to 9:00 pm Thursday 9:00 am to 1:00 pm NO APPOINTMENT NECESSARY Be sure to attend your scheduled follow up appointment with the orthopedic surgeon. This appointment should have been made prior to surgery. Other Instructions: Pain Assessment: Location: leg Type: surgical (Instructed) Current pain management regimen (Instructed) IF PAIN INTENSIFIES OR PAIN IS UNRELIEVED WITH MEDICATIONS ORDERED, CALL YOUR DOCTOR Individual Instructions/Custom Documents/Teaching Sheets: DO NOT take anti-inflammatory medications while on a blood thinner. Apixaban oral tablets What is this medicine? APIXABAN is an anticoagulant (blood thinner). It is used to lower the chance of stroke in people with a medical condition called atrial fibrillation. This medicine may be used for other purposes; ask your health care provider or pharmacist if you have questions. What should I tell my health care provider before I take this medicine? They need to know if you have any of these conditions: -bleeding disorders -bleeding in the brain -blood in your stools (black or tarry stools) or if you have blood in your vomit -history of stomach bleeding -kidney disease -liver disease -mechanical heart valve -an unusual or allergic reaction to apixaban, other medicines, foods, dyes, or preservatives - or trying to get -breast-feeding How should I use this medicine? Take this medicine by mouth with a glass of water. Follow the directions on the prescription label.You can take it with or without food. If it upsets your stomach, take it with food. Take your medicine at regular intervals. Do not take it more often than directed. Do not stop taking except on yourdoctor's advice. Talk to your electronic commerce specialist regarding the use of this medicine in children. Special care may be needed. Overdosage: If you think you've taken too much of this medicine contact a poison control center or emergency room at once. Overdosage: If you think you have taken too much of this medicine contact a poison control center or emergency room at once. NOTE: This medicine is only for you. Do not share this medicine with others. What if I miss a dose? If you miss a dose, take it as soon as you can. If it is almost time for your next dose, take only that dose. Do not take double or extra doses. What may interact with this medicine? This medicine may interact with the following: -aspirin and aspirin-like medicines -certain medicines for fungal infections like ketoconazole and itraconazole -certain medicines for seizures like carbamazepine and phenytoin -certain medicines that treat or prevent blood clots like warfarin, enoxaparin, and dalteparin -clarithromycin -NSAIDs, medicines for pain and inflammation, like ibuprofen or naproxen -rifampin -ritonavir -Demetrice's wort This list may not describe all possible interactions. Give your health care provider a list of all the medicines, herbs, non-prescription drugs, or dietary supplements you use. Also tell them if you smoke, drink alcohol, or use illegal drugs. Some items may interact with your medicine. What should I watch for while using this medicine? Do not stop taking this medicine without first talking to your doctor. Stopping this medicine may increase your risk of having a stroke. Be sure to refill your prescription before you run out of medicine. This medicine may increase your risk to bruise or bleed. Call your doctor or health small animal caretaker if you notice any unusual bleeding. Be careful brushing and flossing your teeth or using a toothpick because you may bleed more easily.If you have any dental work done, tell your dentist you are receiving this medicine. What side effects may I notice from receiving this medicine? Side effects that you should report to your doctor or health small animal caretaker as soon as possible: -allergic reactions like skin rash, itching or hives, swelling of the face, lips, or tongue -bloody or black, tarry stools -changes in vision -confusion, trouble speaking or understanding -red or dark-brown urine -red spots on the skin -severe headaches -spitting up blood or brown material that looks like coffee grounds -sudden numbness or weakness of the face, arm or leg -trouble walking, dizziness, loss of balance or coordination -unusual bruising or bleeding from the eye, gums, or nose This list may not describe all possible side effects. Call your doctor for medical advice about side effects. You may report side effects to FDA at 2-908-JXC-6879. Where should I keep my medicine? Keep out of the reach of children. Store at room temperature between 20 and 25 degrees C (68 and 77 degrees F). Throw away any unused medicine after the expiration date. NOTE: This sheet is a summary. It may not cover all possible information. If you have questions about this medicine, talk to your doctor, pharmacist, or health care provider. ?? 2013, Else[employer]/Gold Standard. (05/13/2012 2:48:26 PM) Tramadol tablets What is this medicine? TRAMADOL (TRA ma dole) is a pain reliever. It is used to treat moderate to severe pain in adults. This medicine may be used for other purposes; ask your health care provider or pharmacist if you have questions. COMMON BRAND NAME(S): Ultram What should I tell my health care provider before I take this medicine? They need to know if you have any of these conditions: -brain tumor -depression -drug abuse or addiction -head injury -if you frequently drink alcohol containing drinks -kidney disease or trouble passing urine -liver disease -lung disease, asthma, or breathing problems -seizures or epilepsy -suicidal thoughts, plans, or attempt; a previous suicide attempt by you or a family member -an unusual or allergic reaction to tramadol, codeine, other medicines, foods, dyes, or preservatives - or trying to get -breast-feeding How should I use this medicine? Take this medicine by mouth with a full glass of water. Follow the directions on the prescription label. You can take it with or without food. If it upsets your stomach, take it with food. Do not take your medicine more often than directed. A special MedGuide will be given to you by the pharmacist with each prescription and refill. Be sure to read this information carefully each time. Talk to your electronic commerce specialist regarding the use of this medicine in children. Special care may be needed. Overdosage: If you think you have taken too much of this medicine contact a poison control center or emergency room at once. NOTE: This medicine is only for you. Do not share this medicine with others. What if I miss a dose? If you miss a dose, take it as soon as you can. If it is almost time for your next dose, take only that dose. Do not take double or extra doses. What may interact with this medicine? Do not take this medication with any of the following medicines: -MAOIs like Carbex, Eldepryl, Marplan, Nardil, and Parnate This medicine may also interact with the following medications: -alcohol -antihistamines for allergy, cough and cold -certain medicines for anxiety or sleep -certain medicines for depression like amitriptyline, fluoxetine, sertraline -certain medicines for migraine headache like almotriptan, eletriptan, frovatriptan, naratriptan, rizatriptan, sumatriptan, zolmitriptan -certain medicines for seizures like carbamazepine, oxcarbazepine, phenobarbital, primidone -certain medicines that treat or prevent blood clots like warfarin -digoxin -furazolidone -general anesthetics like halothane, isoflurane, methoxyflurane, propofol -linezolid -local anesthetics like lidocaine, pramoxine, tetracaine -medicines that relax muscles for surgery -other narcotic medicines for pain or cough -phenothiazines like chlorpromazine, mesoridazine, prochlorperazine, thioridazine -procarbazine This list may not describe all possible interactions. Give your health care provider a list of all the medicines, herbs, non-prescription drugs, or dietary supplements you use. Also tell them if you smoke, drink alcohol, or use illegal drugs. Some items may interact with your medicine. What should I watch for while using this medicine? Tell your doctor or health small animal caretaker if your pain does not go away, if it gets worse, or ifyou have new or a different type of pain. You may develop tolerance to the medicine. Tolerance means that you will need a higher dose of the medicine for pain relief. Tolerance is normal and is expected if you take this medicine for a long time. Do not suddenly stop taking your medicine because you may develop a severe reaction. Your body becomes used to the medicine. This does NOT mean you are addicted. Addiction is a behavior related to getting and using a drug for a non- medical reason. If you have pain, you have a medical reason to takepain medicine. Your doctor will tell you how much medicine to take. If your doctor wants you to stop the medicine, the dose will be slowly lowered over time to avoid any side effects. There are different types of narcotic medicines (opiates). If you take more than one type at the same time or if you are taking another medicine that also causes drowsiness, you may have more side effects. Give your health care provider a list of all medicines you use. Your doctor will tell you howmuch medicine to take. Do not take more medicine than directed. Call emergency for help if you haveproblems breathing or unusual sleepiness. You may get drowsy or dizzy. Do not drive, use machinery, or do anything that needs mental alertness until you know how this medicine affects you. Do not stand or sit up quickly, especially if you are an older patient. This reduces the risk of dizzy or fainting spells. Alcohol can increase or decrease the effects of this medicine. Avoid alcoholic drinks. You may have constipation. Try to have a bowel movement at least every 2 to 3 days. If you do not have a bowel movement for 3 days, call your doctor or health small animal caretaker. Your mouth may get dry. Chewing sugarless gum or sucking hard candy, and drinking plenty of water may help. Contact your doctor if the problem does not go away or is severe. What side effects may I notice from receiving this medicine? Side effects that you should report to your doctor or health small animal caretaker as soon as possible: -allergic reactions like skin rash, itching or hives, swelling of the face, lips, or tongue -breathing problems -confusion -seizures -signs and symptoms of low blood pressure like dizziness; feeling faint or lightheaded, falls; unusually weak or tired -trouble passing urine or change in the amount of urine Side effects that usually do not require medical attention (report to your doctor or health small animal caretaker if they continue or are bothersome): -constipation -dry mouth -nausea, vomiting -tiredness This list may not describe all possible side effects. Call your doctor for medical advice about side effects. You may report side effects to FDA at 2-234-LZX-7941. Where should I keep my medicine? Keep out of the reach of children. This medicine may cause accidental overdose and if it taken by other adults, children, or pets. Mix any unused medicine with a substance like cat litter or coffee grounds. Then throw the medicine away in a sealed container like a sealed bag or a coffee can with a lid. Do not use the medicine after the expiration date. Store at room temperature between 15 and 30 degrees C (59 and 86 degrees F). NOTE: This sheet is a summary. It may not cover all possible information. If you have questions about this medicine, talk to your doctor, pharmacist, or health care provider. ?? 2019 [employer]/Gold Standard (2016-01-20 09:00:04) Tizanidine tablets or capsules What is this medicine? TIZANIDINE (marcio BABATUNDE charlee emma) helps to relieve muscle spasms. It may be used to help in the treatmentof multiple sclerosis and spinal cord injury. This medicine may be used for other purposes; ask your health care provider or pharmacist if you have questions. COMMON BRAND NAME(S): Zanaflex What should I tell my health care provider before I take this medicine? They need to know if you have any of these conditions: -kidney disease -liver disease -low blood pressure -mental disorder -an unusual or allergic reaction to tizanidine, other medicines, lactose (tablets only), foods, dyes, or preservatives - or trying to get -breast-feeding How should I use this medicine? Take this medicine by mouth with a full glass of water. Take this medicine on an empty stomach, at least 30 minutes before or 2 hours after food. Do not take with food unless you talk with your doctor. Follow the directions on the prescription label. Take your medicine at regular intervals. Do not take your medicine more often than directed. Do not stop taking except on your doctor's advice. Suddenly stopping the medicine can be very dangerous. Talk to your electronic commerce specialist regarding the use of this medicine in children. Patients over 65 years old may have a stronger reaction and need a smaller dose. Overdosage: If you think you have taken too much of this medicine contact a poison control center or emergency room at once. NOTE: This medicine is only for you. Do not share this medicine with others. What if I miss a dose? If you miss a dose, take it as soon as you can. If it is almost time for your next dose, take only that dose. Do not take double or extra doses. What may interact with this medicine? Do not take this medicine with any of the following medications: -ciprofloxacin -fluvoxamine -narcotic medicines for cough -thiabendazole This medicine may also interact with the following medications: -acyclovir -alcohol -antihistamines for allergy, cough, and cold -baclofen -certain medicines for anxiety or sleep -certain medicines for blood pressure, heart disease, irregular heartbeat -certain medicines for depression like amitriptyline, fluoxetine, sertraline -certain medicines for seizures like phenobarbital, primidone -certain medicines for stomach problems like cimetidine, famotidine -female hormones, like estrogens or progestins and control pills, patches, rings, or injections -general anesthetics like halothane, isoflurane, methoxyflurane, propofol -local anesthetics like lidocaine, pramoxine, tetracaine -medicines that relax muscles for surgery -narcotic medicines for pain -phenothiazines like chlorpromazine, mesoridazine, prochlorperazine -ticlopidine -zileuton This list may not describe all possible interactions. Give your health care provider a list of all the medicines, herbs, non-prescription drugs, or dietary supplements you use. Also tell them if you smoke, drink alcohol, or use illegal drugs. Some items may interact with your medicine. What should I watch for while using this medicine? Tell your doctor or health small animal caretaker if your symptoms do not start to get better or if theyget worse. You may get drowsy or dizzy. Do not drive, use machinery, or do anything that needs mental alertness until you know how this medicine affects you. Do not stand or sit up quickly, especially if you are an older patient. This reduces the risk of dizzy or fainting spells. Alcohol may interfere with the effect of this medicine. Avoid alcoholic drinks. If you are taking another medicine that also causes drowsiness, you may have more side effects. Give your health care provider a list of all medicines you use. Your doctor will tell you how much medicine to take. Do not take more medicine than directed. Call emergency for help if you have problems breathing or unusual sleepiness. Your mouth may get dry. Chewing sugarless gum or sucking hard candy, and drinking plenty of water may help. Contact your doctor if the problem does not go away or is severe. What side effects may I notice from receiving this medicine? Side effects that you should report to your doctor or health small animal caretaker as soon as possible: -allergic reactions like skin rash, itching or hives, swelling of the face, lips, or tongue -breathing problems -hallucinations -signs and symptoms of liver injury like dark yellow or brown urine; general ill feeling or flu-like symptoms; light-colored stools; loss of appetite; nausea; right upper quadrant belly pain; unusually weak or tired; yellowing of the eyes or skin -signs and symptoms of low blood pressure like dizziness; feeling faint or lightheaded, falls; unusually weak or tired -unusually slow heartbeat -unusually weak or tired Side effects that usually do not require medical attention (report to your doctor or health small animal caretaker if they continue or are bothersome): -blurred vision -constipation -dizziness -dry mouth -tiredness This list may not describe all possible side effects. Call your doctor for medical advice about side effects. You may report side effects to FDA at 5-347-LEI-9308. Where should I keep my medicine? Keep out of the reach of children. Store at room temperature between 15 and 30 degrees C (59 and 86 degrees F). Throw away any unused medicine after the expiration date. NOTE: This sheet is a summary. It may not cover all possible information. If you have questions about this medicine, talk to your doctor, pharmacist, or health care provider. ?? 2019 [employer]/Gold Standard (2018-02-09 13:33:29) Oxycodone tablets or capsules What is this medicine? OXYCODONE (ox i KOE done) is a pain reliever. It is used to treat moderate to severe pain. This medicine may be used for other purposes; ask your health care provider or pharmacist if you have questions. What should I tell my health care provider before I take this medicine? They need to know if you have any of these conditions: -Salo's disease -brain tumor -drug abuse or addiction -head injury -heart disease -if you frequently drink alcohol containing drinks -kidney disease or problems going to the bathroom -liver disease -lung disease, asthma, or breathing problems -mental problems -an unusual or allergic reaction to oxycodone, codeine, hydrocodone, morphine, other medicines, foods, dyes, or preservatives - or trying to get -breast-feeding How should I use this medicine? Take this medicine by mouth with a glass of water. Follow the directions on the prescription label.You can take it with or without food. If it upsets your stomach, take it with food. Take your medicine at regular intervals. Do not take it more often than directed. Do not stop taking except on yourdoctor's advice. Some brands of this medicine, like Oxecta, have special instructions. Ask your doctor or pharmacistif these directions are for you: Do not cut, crush or chew this medicine. Swallow only one tablet at a time. Do not wet, soak, or lick the tablet before you take it. Talk to your electronic commerce specialist regarding the use of this medicine in children. Special care may be needed. Overdosage: If you think you have taken too much of this medicine contact a poison control center or emergency room at once. NOTE: This medicine is only for you. Do not share this medicine with others. What if I miss a dose? If you miss a dose, take it as soon as you can. If it is almost time for your next dose, take only that dose. Do not take double or extra doses. What may interact with this medicine? -alcohol -antihistamines -certain medicines used for nausea like chlorpromazine, droperidol -erythromycin -ketoconazole -medicines for depression, anxiety, or psychotic disturbances -medicines for sleep -muscle relaxants -naloxone -naltrexone -narcotic medicines (opiates) for pain -nilotinib -phenobarbital -phenytoin -rifampin -ritonavir -voriconazole This list may not describe all possible interactions. Give your health care provider a list of all the medicines, herbs, non-prescription drugs, or dietary supplements you use. Also tell them if you smoke, drink alcohol, or use illegal drugs. Some items may interact with your medicine. What should I watch for while using this medicine? Tell your doctor or health small animal caretaker if your pain does not go away, if it gets worse, or ifyou have new or a different type of pain. You may develop tolerance to the medicine. Tolerance means that you will need a higher dose of the medicine for pain relief. Tolerance is normal and is expected if you take this medicine for a long time. Do not suddenly stop taking your medicine because you may develop a severe reaction. Your body becomes used to the medicine. This does NOT mean you are addicted. Addiction is a behavior related to getting and using a drug for a non- medical reason. If you have pain, you have a medical reason to takepain medicine. Your doctor will tell you how much medicine to take. If your doctor wants you to stop the medicine, the dose will be slowly lowered over time to avoid any side effects. You may get drowsy or dizzy when you first start taking this medicine or change doses. Do not drive, use machinery, or do anything that may be dangerous until you know how the medicine affects you. Stand or sit up slowly. There are different types of narcotic medicines (opiates) for pain. If you take more than one type at the same time, you may have more side effects. Give your health care provider a list of all medicines you use. Your doctor will tell you how much medicine to take. Do not take more medicine than directed. Call emergency for help if you have problems breathing. This medicine will cause constipation. Try to have a bowel movement at least every 2 to 3 days. If you do not have a bowel movement for 3 days, call your doctor or health small animal caretaker. Your mouth may get dry. Drinking water, chewing sugarless gum, or sucking on hard candy may help. See your dentist every 6 months. What side effects may I notice from receiving this medicine? Side effects that you should report to your doctor or health small animal caretaker as soon as possible: -allergic reactions like skin rash, itching or hives, swelling of the face, lips, or tongue -breathing problems -confusion -feeling faint or lightheaded, falls -trouble passing urine or change in the amount of urine -unusually weak or tired Side effects that usually do not require medical attention (report to your doctor or health small animal caretaker if they continue or are bothersome): -constipation -dry mouth -itching -nausea, vomiting -upset stomach This list may not describe all possible side effects. Call your doctor for medical advice about side effects. You may report side effects to FDA at 5-113-UET-1203. Where should I keep my medicine? Keep out of the reach of children. This medicine can be abused. Keep your medicine in a safe place to protect it from theft. Do not share this medicine with anyone. Selling or giving away this medicine is dangerous and against the law. Store at room temperature between 15 and 30 degrees C (59 and 86 degrees F). Protect from light. Keep container tightly closed. Discard unused medicine and used packaging carefully. Pets and children can be harmed if they find used or lost packages. Flush any unused medicines down the toilet. Do not use the medicine after theexpiration date. NOTE: This sheet is a summary. It may not cover all possible information. If you have questions about this medicine, talk to your doctor, pharmacist, or health care provider. ?? 2013, [employer]vier/Gold Standard. (03/25/2012 8:33:37 AM) documented in this encounter Medications at Time of Discharge acetaminophen (TYLENOL) 500 mg Oral Tablet Take 2 Tabs by mouth every 8 hours as needed. 60 Tab 12/30/2018 01/27/2019 traMADol (ULTRAM) 50 mg Oral Tablet Take 1-2 Tabs by mouth every 6 hours as needed for Pain. May use for moderate 1-5 pain 60 Tab 12/30/2018 01/27/2019 documented as of this encounter Ordered Prescriptions Prescription Sig Dispense Quantity Refills Last Filled Start Date End Date apixaban (ELIQUIS) 2.5 mg Oral Tablet Take 1 Tab by mouth 2 times daily. 60 Tab 12/30/201802/21/201 9 traMADol (ULTRAM) 50 mg Oral Tablet Take 1-2 Tabs by mouth every 6 hours as needed for Pain. May use for moderate 1-5 pain 60 Tab 12/30/2018 9 oxyCODONE (ROXICODONE) 5 mg Oral Tablet Take 1-2 Tabs by mouth every 8 hours as needed for Major Surgery/Trauma (G89.18) (moderate/barrington re 6-10 pain). 60 Tab 12/30/2018 0 tiZANidine (ZANAFLEX) 2 mg Oral Tablet Take 2 Tabs by mouth every 8 hours as needed for Other (muscle relaxant). 60 Tab 12/30/2018 0 acetaminophen (TYLENOL) 500 mg Oral Tablet Take 2 Tabs by mouth every 8 hours as needed. 60 Tab 12/30/2018 9 documented in this encounter Discharge Disposition Disposition Code Departure Means Destination Long-Term Facility [facility] documented in this encounter Progress Notes * Zamzam Greenwood, PT - 12/31/2018 11:30 AM EDT 12/31/18 0824 PT Subjective Note Type Treatment/Progress PT Subjective Comments #1 [id number] PT Subjective Comments #2 Pt agrees to PT. Discharge Information This progress note will serve as the discharge summary if no further therapy is provided prior to the patient being discharged from the hospital. Pain Screening PT/OT Patient Currently in Pain Yes Pain Rating 6 Pain Location Knee Pain Orientation Left Pain Intervention(s) Cold applied Cognition Orientation Intact Safety Awareness Impaired Safety Awareness Impairment Minimal Impairments: Needs up to 25% input/direction from therapist in order to identify safety issues and maintain safety. Precautions Therapy Precautions Yes Weight Bearing Status Weight bearing as tolerated Precaution info given To use call light to request assistance with all mobility Observation Presentation Patient resting in bed Additional Comments cryo L knee; pt did not recall this PT from prior visit Bed Mobility Supine to Sit With verbal cues;Contact guard assist;With bed rails Additional Comments vcs to self assist her LLE Transfers Sit to Stand With verbal cues;Min assist Stand to Sit With verbal cues;Min assist;Contact guard assist Gait Gait With verbal cues;Contact guard assist;Min assist Gait Distance (Feet) 40 Feet Assistive Device 2 Wheel walker Pattern Antalgic;Slow jovany;Step to;Decreased stance time L Weight Bearing Status Weight bearing as tolerated Additional Comments pt with constant sighing due to effort and exertion; reported being low energy AM PAC: How much help from another person does the patient currently need... turning from your back to your side while in a flat bed without using bedrails? 3 moving from lying on your back to sitting on the side of a flat bed without using bedrails? 3 moving to and from a bed to a chair? 3 standing up from a chair using your arms (e.g. wheelchair, or bedside chair)? 3 need to walk in hospital room? 3 climbing 3-5 steps with a railing? 2 AM PAC: BASIC MOBILITY SCORING AM PAC Moblity Raw Score 17 AM PAC Mobility CMS 0-100% Functional Percentage 43.83 AM PAC Mobility CMS G Code Modifier CK Balance Sitting Balance 4/5 moves/returns trunkal midpoint 1-2 inches in multiple planes Standing Balance 2/5 indep, requires both UE support Exercise Exercise Yes Supine Supine Ankle Pumps 10 Supine Quad Sets 10 Seated Seated Hamstring Curls 10 Seated LAQ's 10 Education Education To use call light to request assistance with all mobility;Patient/Family Education;Role of Therapy;Safety with mobility;Cues for proper technique;Discharge planning;Up with assistance only;Safe and proper posture/positioning;Safe and proper technique with transfers;Safe and proper technique with gait pattern Patient Safety Patient Safety Patient left in chair with needs in reach;Nursing notified of status;Chair/personal alarm activated LLE Assessment LLE Assessment X AROM LLE (degrees) L Knee Flexion 0-140 60 L Knee Extension 0-130 10 Strength LLE L Knee Extension 2/5 Assessment Progress Slow progress toward goals, cognitive deficits Goals Pt Will Go Supine To Sit With contact guard assistance;Not met Pt will perform Sit to Stand With contact guard assistance;Partly met Pt Will Ambulate With 2 wheel walker;101-150 feet;With contact guard assistance;Not met Pt Will Perform Home Exer Program With verbal cues required/provided;Partly met Pt Will Increase ROM By 10 degrees;Met Plan Treatment/Interventions Continue with current plan of care PT Frequency BID Recommendation PT Recommendation Long-Term Facility (SNF) Time In / Time Out [id number] IP PT Treatment Minutes 26 The total time spent caring for this patient included but was not limited to medical record review;hands-on treatment;communication and education with patient and/or family/caregiver;communication with nursing and/or care coordination/social work regarding patient status and discharge planning * Argelia Price, RN - 12/31/2018 10:31 AM EDT 12/31/18 1028 Final Note Referral to SEP Care Management (SEP patients only) No Actual Discharge Plan 12/31/18 CC Final assessment. Met with pt at bedside. No d/c needs noted. Spoke to Amparo from [facility] who stated they can take anytime, son will be here 11am to provide transportation at d/c . Pt's RNCierra noted d/c plan. CC final note. DME Currently Used Walker Transportation at discharge Personal vehicle Date Expected 12/31/18 PASAR Completed Not Applicable Patient/Family Aware of Plan Yes MD Aware of Plan Yes RN Notified of Plan Yes * Blaire Potter PA-C - 12/31/2018 10:08 AM EDT Images from the original note were not included. [facility] Orthopaedic Surgery Progress Note Admit Date: 12/28/2018 HPI: Stella Hylton is a 73 y.o. female admitted for work-up and treatment for Primary osteoarthritis of left knee [M17.12] OA (osteoarthritis) of knee [M17.10]. Doing well. No complaints. Objective: Lab Results Component Value Date HGB 11.3 12/31/2018 HCT 36.7 12/31/2018 No results found for: INR, APTT Patient Vitals for the past 8 hrs: BP Temp Temp src Pulse Resp SpO2 12/31/18 0910 99/61 -- -- 102 16 94 % 12/31/18 0613 126/69 98.6 ??F (37 ??C) Oral 90 20 94 % Procedure(s): left knee total replacement (Left) Patient is in no acute distress. Palpable distal pulses. Brisk capillary refill. Negative Homans sign. Soft compartments. Incision is clean and dry. No active bleeding. Dorsiflexion: toes up/down.NV intact Plan: Doing fine from an orthopaedic standpoint. Advance as directed. Will continue to monitor. OK for SNF. Blaire Potter PA-C Cosigned by Bruce Oh MD at 01/06/2019 7:49 AM EDT * Argelia Price RN - 12/30/2018 3:08 PM EDT 12/30/18 1506 Assessment Complete Actual Discharge Plan 12/30/18 CC f/u. Dr Oh's office ok'd SNF at d/c as pt is not progressing well with PT. Met with pt and her son at bedside, ST skilled list provided, they noted that PT recs [facility], pt states that she feels she needs ST skilled because she lives alone and she discussed with Dr Oh today, she decided on [place], referral sent. Son will provide transportation at d/c. CC to follow. * Ninfa Espino, PT - 12/30/2018 2:27 PM EDT 12/30/18 1425 PT Subjective Note Type Treatment/Progress Patient Room/Unit 7407 PT Subjective Comments #1 Patient agreeable to PT. PM session same as AM session except what is listed below. Discharge Information This progress note will serve as the discharge summary if no further therapy is provided prior to the patient being discharged from the hospital. Observation Presentation Patient seated in chair Bed Mobility Sit to Supine With verbal cues;Contact guard assist;Min assist Patient Safety Patient Safety Patient in bed with needs in reach;Bed alarm activated Goals Pt Will Go Supine To Sit With contact guard assistance;Not met Pt will perform Sit to Stand With contact guard assistance;Partly met Pt Will Ambulate With 2 wheel walker;101-150 feet;With contact guard assistance;Partly met Pt Will Perform Home Exer Program With verbal cues required/provided;Partly met Pt Will Increase ROM By 10 degrees;Not met Recommendation Time In / Time Out 9444-4807; 4465-6741 IP PT Treatment Minutes 23 The total time spent caring for this patient included but was not limited to medical record review;hands-on treatment;communication and education with patient and/or family/caregiver;assessment of the patient's progress since the last session;clinical judgement necessary for treatment planning for next session;communication with nursing and/or care coordination/social work regarding patient status and discharge planning * Blaire Potter PA-C - 12/30/2018 1:35 PM EDT Images from the original note were not included. [facility] Orthopaedic Surgery Progress Note Admit Date: 12/28/2018 HPI: Stella Hylton is a 73 y.o. female admitted for work-up and treatment for Primary osteoarthritis of left knee [M17.12] OA (osteoarthritis) of knee [M17.10]. No new complaints Objective: Lab Results Component Value Date HGB 10.5 (L) 12/30/2018 HCT 33.4 (L) 12/30/2018 No results found for: INR, APTT Patient Vitals for the past 8 hrs: BP Temp Temp src Pulse Resp SpO2 12/30/18 0824 131/65 97.5 ??F (36.4 ??C) Oral 81 20 93 % Procedure(s): left knee total replacement (Left) Patient is in no acute distress. Palpable distal pulses. Brisk capillary refill. Negative Homans sign. Soft compartments. Incision is clean and dry. No active bleeding. Dorsiflexion: toes up/down.NV intact Plan: Doing fine from an orthopaedic standpoint. Advance as directed. Will continue to monitor. Lives alone; son has to now go out of town. OK for SNF. Blaire Potter PA-C Cosigned by Bruce Oh MD at 01/06/2019 7:49 AM EDT * Ninfa Espino PT - 12/30/2018 10:13 AM EDT 12/30/18 1007 PT Subjective Note Type Treatment/Progress PT Subjective Comments #1 7407 PT Subjective Comments #2 Patient agreeable to PT. Reports she talked with Dr. Randal MAYEN and theyare working on me going to a skilled facility. Discharge Information This progress note will serve as the discharge summary if no further therapy is provided prior to the patient being discharged from the hospital. Pain Screening PT/OT Patient Currently in Pain Yes Pain Rating 4 Pain Intervention(s) Cold applied Additional Comments left knee; 4 when not moving, 10 when moving Cognition Orientation Intact Safety Awareness Impaired Safety Awareness Impairment Minimal Impairments: Needs up to 25% input/direction from therapist in order to identify safety issues and maintain safety. Precautions Therapy Precautions Yes Weight Bearing Status Weight bearing as tolerated Precaution info given Yes;Weight bearing;To use call light to request assistance with all mobility Observation Presentation Patient resting in bed Observation Bed Alarm Bed Mobility Supine to Sit With verbal cues;Min assist Transfers Sit to Stand With verbal cues;Contact guard assist;Min assist Stand to Sit With verbal cues;Contact guard assist Additional Comments Verbal cues for hand placement and controlled descent from stand to sit. Patient attempts to let go of walker too early and step back to chair by holding one hand on walker and one hand on chair. Cues for safety. Gait Gait With verbal cues;Contact guard assist Gait Distance (Feet) 65 Feet Assistive Device 2 Wheel walker Pattern Antalgic;Slow jovany;Step to;Decreased stance time L Weight Bearing Status Weight bearing as tolerated Additional Comments Verbal cues for sequence, safety, hand placement and TKE. Patient taking multiple standing rest breaks. Patient with increased antalgia as progressed. Patient very fatigued post ambulation. AM PAC: How much help from another person does the patient currently need... turning from your back to your side while in a flat bed without using bedrails? 3 moving from lying on your back to sitting on the side of a flat bed without using bedrails? 3 moving to and from a bed to a chair? 3 standing up from a chair using your arms (e.g. wheelchair, or bedside chair)? 3 need to walk in hospital room? 3 climbing 3-5 steps with a railing? 2 AM PAC: BASIC MOBILITY SCORING AM PAC Moblity Raw Score 17 AM PAC Mobility CMS 0-100% Functional Percentage 43.83 AM PAC Mobility CMS G Code Modifier CK Balance Sitting Balance 4/5 moves/returns trunkal midpoint 1-2 inches in multiple planes Standing Balance 2/5 indep, requires both UE support Exercise Exercise Yes Supine Supine Ankle Pumps 10 Supine Quad Sets 10 Seated Seated Hamstring Curls 10 Seated LAQ's 10 Education Education To use call light to request assistance with all mobility;Safety with mobility;Cues for proper technique;Up with assistance only;Safe and proper posture/positioning;Safe and proper technique with transfers;Safe and proper technique with gait pattern Patient Safety Patient Safety Patient left in chair with needs in reach;Nursing notified of status;Chair/personal alarm activated AROM LLE (degrees) L Knee Flexion 0-140 ~50 L Knee Extension 0-130 ~10 Assessment Progress Progressing toward goals Goals Pt Will Go Supine To Sit With contact guard assistance;Not met Pt will perform Sit to Stand With contact guard assistance;Partly met Pt Will Ambulate With 2 wheel walker;101-150 feet;With contact guard assistance;Partly met Pt Will Perform Home Exer Program With verbal cues required/provided;Partly met Pt Will Increase ROM By 10 degrees;Not met Plan Treatment/Interventions Continue with current plan of care Recommendation PT Recommendation Long-Term Facility (SNF) Time In / Time Out 6332-7278; 5376-2482 IP PT Treatment Minutes 38 (25 gt x2; 13 ther ex) The total time spent caring for this patient included but was not limited to medical record review;hands-on treatment;communication and education with patient and/or family/caregiver;assessment of the patient's progress since the last session;clinical judgement necessary for treatment planning for next session;communication with nursing and/or care coordination/social work regarding patient status and discharge planning * Argelia Price, RN - 12/30/2018 9:18 AM EDT 12/30/18 0916 Assessment Complete Actual Discharge Plan 12/30/18 CC f/u. Per bundle plan, referral to [facility] , order complete for PT/SN. Son to provide transportation at d/c. CC to follow. * Rommel Mauro - 12/29/2018 8:11 PM EDT 12/29/181999 Pastoral Care Encounter Visited With Patient Date of visit 12/29/18 Visit Type Initial Christian Needs Pastoral care brochure;Prayer * Zamzam Greenwood, PT - 12/29/2018 3:55 PM EDT 12/29/18 1330 PT Subjective Note Type Treatment/Progress Patient Room/Unit 7407 PT Subjective Comments #1 Pt agrees to PT. Requesting pn med prior. Ns issued Tylenol. Sit to standCGA. Gt trained 30' with RW step to pattern, antalgia LLE. Stand to sit CGA. Sit to sup CGA. Left sup with needs, cryo L knee, LLE elevated properly on pillows, bed alarm set. Recommendation PT Recommendation Long-Term Facility (SNF) Time In / Time Out 7286-3927 IP PT Treatment Minutes 17 The total time spent caring for this patient included but was not limited to medical record review;hands-on treatment;communication and education with patient and/or family/caregiver * Adriana Toney, UMA - 12/29/2018 2:55 PM EDT 12/29/18 1449 Assessment Complete ED Screening Completed Initial screening complete, post-acute needs identified, assessment to follow Actual Discharge Plan 12/29/18 CC Initial Assessment: Met with patient at bedside. Obs letter explained, signed by patient, and placed in chart. Patient states she lives alone but her son stays with her at times. She is concened that he will not be with her as much as originally anticipated at discharge. She has a rollator but not a 2WW. Son to provide transportation at [place]. PCP Dr. Irene. [facility] bundle plan is home with [facility] for PT x 2 weeks. Follow up with Dr. Oh on 01/12/19 at 10:45 in [place]. PT recommends SNF. CC alerted CC dependency case manager who spoke with Danny Luna.Their response was that they would like to see how she progresses with PT before approving a different plan. If SNF approved, patient wishes to speak with ortho about which facility she chooses. If plan remains for home with [facility], she will need 2 wheel walker. CC to follow up on to monitor for progress and [facility] [place] approval. Assign Video Yes Completed by CC/SW Yes Discharge to Home Health RRS Is patient score high risk on RRS score? No Care Coordination Assessment Observation Information Provided to Patient/Family Yes form signed Assessed In person interview with patient Mental Status Alert and oriented Does patient need plant maintenance engineer? No Decision Maker Him/Herself Activities of Daily Living Independent Living Arrangements Alone Where did the patient come from? Private Residence Support Systems Family Members Quality of Support System Adequate Type of Home Care Services None Recent decline in your ability to care for yourself physically? Yes DME Currently Used Walker Financial Concerns No Obtain prescription meds at discharge? Commercial Insurance Obtain follow up care after discharge? PCP office Transportation at discharge Personal vehicle Discussed discharge plan with patient/family Yes Agency/Facility Options Offered, list provided Yes [facility] Financial Disclosure completed? Yes * Rachael Campbell, RN - 12/29/2018 2:53 PM EDT Patient unhappy about food quality. Message sent to nutrition for ambassador/dietary to address with patient and offer suggestions that might better meet the patient's tastes. * Ninfa Espino, PT - 12/29/2018 12:28 PM EDT 12/29/18 1112 PT Subjective Note Type Evaluation PT Subjective Comments #1 6099 PT Subjective Comments #2 Patient agreeable to PT. Discharge Information Evaluation to serve as discharge summary if no further treatment provided before the facility discharge Admitting Diagnosis 73 year old woman admitted 12-28-18 for left TKR per Dr. Oh. Past Med Hx arthritis, HLD, right THR 02-16-14, lumbar disc surgery Pain Screening PT/OT Patient Currently in Pain Yes Pain Rating 5 Pain Intervention(s) Cold applied Additional Comments left knee Cognition Orientation Intact Precautions Therapy Precautions Yes Weight Bearing Status Weight bearing as tolerated Precaution info given Yes;Weight bearing;To use call light to request assistance with all mobility Home Living/Prior Function Type of Home House Home Layout Able to Live on Main level with bedroom/bathroom Number of Steps Other (Comment) Additional Comments 3(1 HR) + 2 (no HR) vs 12 (6 do not have HR) DAMON Home Equipment 2 wheel walker;Cane Level of Assistance Independent with ADLs ;Independent with functional transfers;Independent with homemaking;Ambulatory in home;Ambulatory in the community Lives With Son Additional Comments Per patient, son works and can be called out at any time so he will not reliably be able to assist. Observation Presentation Patient resting in bed Observation Bed Alarm LE Assessment LLE Assessment X RLE Assessment WFL AROM LLE (degrees) L Knee Flexion 0-140 ~50 L Knee Extension 0-130 ~10 Strength LLE L Knee Extension 2/5 Bed Mobility Supine to Sit With verbal cues;Min assist Transfers Sit to Stand With verbal cues;Min assist Stand to Sit With verbal cues;Min assist Additional Comments Verbal cues for hand placement and controlled descent from stand to sit. Gait Gait With verbal cues;Min assist Gait Distance (Feet) 15 Feet Assistive Device 2 Wheel walker Pattern Antalgic;Slow jovany;Step to Weight Bearing Status Weight bearing as tolerated Additional Comments Verbal cues for sequence, safety, hand placement and TKE. AM PAC: How much help from another person does the patient currently need... turning from your back to your side while in a flat bed without using bedrails? 3 moving from lying on your back to sitting on the side of a flat bed without using bedrails? 3 moving to and from a bed to a chair? 3 standing up from a chair using your arms (e.g. wheelchair, or bedside chair)? 3 need to walk in hospital room? 3 climbing 3-5 steps with a railing? 2 AM PAC: BASIC MOBILITY SCORING AM PAC Moblity Raw Score 17 AM PAC Mobility CMS 0-100% Functional Percentage 43.83 AM PAC Mobility CMS G Code Modifier CK Balance Sitting Balance 4/5 moves/returns trunkal midpoint 1-2 inches in multiple planes Standing Balance 1+/5>50% (min assist) Exercise Exercise Yes Supine Supine Ankle Pumps 10 Supine Quad Sets 10 Seated Seated LAQ's 5 Seated Hamstring Curls 5 Education Education To use call light to request assistance with all mobility;Patient/Family Education;Role of Therapy;Safety with mobility;Cues for proper technique;Up with assistance only;Safe and proper post ure/positioning;Safe and proper technique with transfers;Safe and proper technique with gait pattern Patient Safety Patient Safety Patient left in chair with needs in reach;Nursing notified of status;Chair/personal alarm activated Assessment Assessment Decreased gait;Decreased functional mobility;Decreased balance;Decreased Left Lower Extremity ROM;Decreased Left Lower Extremity strength;Decreased activity tolerance Prognosis Good;With continued PT s/p acute discharge Rationale for Skilled Therapy Balance Deficits Goals Patient and/or Family Goal to go to a facility PT GOALS (Yes/No) Yes Add Goals Pt Will Go Supine To Sit With contact guard assistance Pt will perform Sit to Stand With contact guard assistance Pt Will Ambulate With 2 wheel walker;101-150 feet;With contact guard assistance Pt Will Perform Home Exer Program With verbal cues required/provided Pt Will Increase ROM By 10 degrees Time for Goal Achievement/Duration of Treatment x 5 days Plan Treatment/Interventions Gait training;Bed mobility;Balance training;Functional transfer training;LEstrengthening/ROM;Increase activity tolerance PT Frequency BID Recommendation PT Recommendation Long-Term Facility (SNF) Time In / Time Out 3729-6968; 2885-5723 IP PT Evaluation Minutes 10 IP PT Treatment Minutes 16 The total time spent caring for this patient included but was not limited to medical record review;hands-on treatment;communication and education with patient and/or family/caregiver;clinical judgement necessary for treatment planning for next session;communication with nursing and/or care coordinat ion/social work regarding patient status and discharge planning * Ludwin Son PA-C - 12/29/2018 6:57 AM EDT Images from the original note were not included. [facility] Orthopaedic Surgery Progress Note Admit Date: 12/28/2018 HPI: Stella Hylton is a 73 y.o. female admitted for work-up and treatment for Primary osteoarthritis of left knee [M17.12] OA (osteoarthritis) of knee [M17.10]. Nerve block wearing off. Objective: Lab Results Component Value Date HGB 11.8 12/29/2018 HCT 36.4 12/29/2018 No results found for: INR, APTT Patient Vitals for the past 8 hrs: BP Temp Temp src Pulse Resp SpO2 12/29/18 0312 116/63 98 ??F (36.7 ??C) Oral 69 14 92 % 12/29/18 0244 113/65 97.6 ??F (36.4 ??C) Oral 62 -- 94 % 12/28/18 2339 123/60 97.6 ??F (36.4 ??C) Oral 73 14 94 % Procedure(s): left knee total replacement (Left) Patient is in no acute distress. Palpable distal pulses. Brisk capillary refill. Negative Homans sign. Soft compartments. Incision is clean and dry. No active bleeding. Dorsiflexion: Toes Up/Down. NV Intact. Plan: Doing fine from an orthopaedic standpoint. Advance as directed. Will continue to monitor. Planning for SNF vs home pending progress with PT. Xarelto/Eliquis upon discharge; aspirin upset stomach. Ludwin Son PA-C Cosigned by Bruce Oh MD at 01/06/2019 7:49 AM EDT documented in this encounter H&P Notes * Hailey Loera, CORSET MAKER - 12/28/2018 9:45 AM EDT [facility] History and Physical Name: Stella Hylton ADDRESS: [address] [place] [address] : 1945 AGE: 73 y.o. Assessment: Primary osteoarthritis of left knee [M17.12] Plan: Procedure(s): left knee total replacement per Bruce Oh MD Admitting Physician: Bruce Oh MD Date of Admit: 12/28/2018 Subjective SUBJECTIVE Chief Complaint: Primary osteoarthritis of left knee [M17.12] History of Present Illness: Patient is a 73 y.o. female with Primary osteoarthritis of left knee [M17.12] who presents for surgical intervention. Past Medical History: Diagnosis Date ??? Arthritis ??? Hyperlipidemia ??? Motion sickness Past Surgical History: Procedure Laterality Date ??? HEMORRHOID SURGERY ??? HIP ARTHROPLASTY Right 02/16/2014 RIGHT TOTAL HIP REPLACEMENT; Surgeon: Bruce Oh MD; Location: [facility]; Service: Orthopedics ??? HYSTERECTOMY ??? LUMBAR DISC SURGERY 11/03/2012 Surgeon: Elza Bautista MD; Location: [facility]; Service: Prior to Admission medications Medication Sig Start Date End Date Taking? Authorizing Provider ALLERGY RELIEF [id number] 10-240 mg Oral Tablet Sustained Release 24 hr TAKE 1 TABLET BY MOUTH EVERY DAY 12/27/18 Mann Irene MD aspirin 81 mg Oral Tablet, Delayed Release (E.C.) Take 81 mg by mouth daily. Provider, Historical atorvastatin (LIPITOR) 10 mg Oral Tablet TAKE 1 TABLET EVERY DAY 07/12/18 Mann Irene MD diclofenac (VOLTAREN) 75 mg Oral Tablet, Delayed Release (E.C.) Take 1 Tab by mouth 2 times daily (with meals) for 360 days. 12/06/18 12/01/19 Mann Irene MD loratadine/pseudoephedrine (LORATADINE-D ORAL) Take by mouth daily. Provider, Historical vit C/E/Zn/coppr/lutein/zeaxan (PRESERVISION AREDS-2 ORAL) Take by mouth daily. Provider, Historical Allergies Allergen Reactions ??? Celecoxib Rash Social History Socioeconomic History ??? Marital status: Spouse name: Not on file ??? Number of children: Not on file ??? Years of education: Not on file ??? Highest education level: Not on file Tobacco Use ??? Smoking status: Former Smoker Packs/day: 0.50 Years: 25.00 Pack years: 12.50 Types: Cigarettes Last attempt to quit: 09/27/2014 Years since quittin.2 ??? Smokeless tobacco: Never Used ??? Tobacco comment: quit ~'06 Substance and Sexual Activity ??? Alcohol use: No ??? Drug use: No Family History Problem Relation Age of Onset ??? Early Father ??? Early Sister ??? Early Brother ??? Anesth Problems Neg Hx There are no active hospital problems to display for this patient. Vitals: 12/28/18 0949 BP: 137/68 Pulse: 87 Resp: 14 Temp: 97.8 ??F (36.6 ??C) SpO2: 94% Height: 5' 3 (160 cm) Weight: 173 lb (78.5 kg) Review of Systems: The listed systems were reviewed and reveal the following in addition to any already discussed in the HPI: Review of Systems Constitutional: Negative for chills, fever and weight loss. HENT: Positive for hearing loss. Negative for ear discharge, ear pain, sinus pain, sore throat and tinnitus. Eyes: Positive for blurred vision. Upcoming cataract surgery Respiratory: Negative for cough, shortness of breath and wheezing. Cardiovascular: Negative for chest pain and palpitations. Gastrointestinal: Negative for abdominal pain, diarrhea, heartburn, nausea and vomiting. Genitourinary: Negative for dysuria, frequency and urgency. Musculoskeletal: Positive for joint pain. Skin: Negative for itching and rash. Neurological: Negative for dizziness, tingling, tremors and headaches. Endo/Heme/Allergies: Positive for environmental allergies. Psychiatric/Behavioral: Negative for depression. Objective OBJECTIVE Physical Exam: There is no height or weight on file to calculate BMI. There is no height or weight on file to calculate BSA. Physical Exam Constitutional: She is oriented to person, place, and time. She appears well- developed and well-nourished. No distress. HENT: Head: Normocephalic and atraumatic. Right Ear: External ear normal. Left Ear: External ear normal. Nose: Nose normal. Eyes: Conjunctivae and EOM are normal. Right eye exhibits no discharge. Left eye exhibits no discharge. No scleral icterus. Neck: Normal range of motion. Neck supple. No JVD present. No tracheal deviation present. Cardiovascular: Normal rate, regular rhythm, normal heart sounds and intact distal pulses. Pulmonary/Chest: Effort normal and breath sounds normal. No respiratory distress. She has no wheezes. She exhibits no tenderness. Abdominal: Soft. Bowel sounds are normal. She exhibits no distension. There is no tenderness. Genitourinary: Genitourinary Comments: Deferred Musculoskeletal: Normal range of motion. She exhibits no edema, tenderness or deformity. Neurological: She is alert and oriented to person, place, and time. No cranial nerve deficit. Skin: Skin is warm and dry. No rash noted. She is not diaphoretic. No erythema. Psychiatric: She has a normal mood and affect. Her behavior is normal. Judgment and thought contentnormal. Labs:reviewed EKG:reviewed (2012) SR Hailey Loera APRN 12/28/2018 0949 Cosigned by Liam Scott MD at 12/29/2018 10:42 AM EDT documented in this encounter Procedure Notes * Bruce Oh MD - 12/31/2018 9:30 AM EDT [facility] OPERATIVE REPORT Stella Hylton 12/28/2018 PRE-OP DIAGNOSIS: Primary osteoarthritis of left knee [M17.12] POST-OP DIAGNOSIS: Primary osteoarthritis of left knee [M17.12] PROCEDURE: Procedure(s): left knee total replacement PRE-OP ANTIBIOTIC: ancef SURGEON: Surgeon(s) and Role: * Bruce Oh MD - Primary ASSISTANT FEDERAL PUBLIC DEFENDER: Blaire Potter PA-C ANESTHESIA: GETA ESTIMATED BLOOD LOSS: Per Anesthsia COMPLICATIONS: None IMPLANTS USED: Implant Name Type Inv. Item Serial No. Horse [employer] Wagon Driver Lot No. LRB No. Used Action CMPNT FEM 3 KN LT CRCTE RTN BEAD TRTHLN PA - [id number] CMPNT FEM 3 KN LT CRCTE RTN BEAD TRTHLN PA KYLEE:ORTH[employer] [id number] Left 1 Implanted PATELLA BACKED METAL TRITANIUM ASYMMETRIC A 35 X 10 - [id number] PATELLA BACKED METAL TRITANIUM ASYMMETRIC A 35 X 10 KYLEE:ORTHOPED[employer] HTMY Left 1 Implanted INSERT BEARING TIBIAL CS TRIATHLON X 3 SZ 4-11MM - [id number] INSERT BEARING TIBIAL CS TRIATHLON X 3SZ 4-11MM KYLEE:ORTHOPEDICS [id number] Left 1 Implanted BSPLT TIB TRTHLN 4 KN TRITANIUM - [id number] BSPLT TIB TRTHLN 4 KN TRITANIUM KYLEE:ORTHOPEDICS [id number] Left 1 Implanted HISTORY OF PRESENT ILLNESS: Stella Hylton is a(n) 73 y.o. female with a history of Primary osteoarthritis of left knee [M17.12] who underwent multiple conservative therapies including but not limited to anti-inflammatories, injections, activity modification, weight loss, and use of assistive devices. Once all of these measures failed, she elected to undergo surgical intervention. No guarantees were made or implied. Informed consent was obtained. PROCEDURE IN DETAIL: The patient was given the appropriate preoperative Antibiotics, brought into the operating room, and placed in the supine position on the table. The hip on the operative leg was bumped. A tourniquet was placed on the proximal thigh. The patient was prepped and draped in the usual sterile fashion. Time out was performed.Once I verified that antibiotics were in, I exsanguinated the leg and raised the tourniquet up to 300 mmHg. Once it was up, I made a standard incision in the tibial tubercle up to 2 cm above the patella. I divided the subcutaneous tissue in line with the incision and identified the patella and bothquad and patellar tendons. I then dissected medially across the fascia of the VMO to its insertion. I elevated it up and made a standard sub vastus capsular incision along the medial border of the patella and patellar tendon with a small medial release. This allowed me to subluxate the patella laterally. As I flexed the knee up, I sharply removed the inferior fat pad medially and laterally. Once I had accomplished this, I made a primary drill hole in the femur and placed an intramedullary flex alison guide in. I made a standard 8 mm cut at 5 degrees of valgus. Once I made this cut, I cleaned the ACL footprint and made a primary drill hole in the tibia and placed the tibial intramedullary guide. I took 9 mm off the high side, which was the lateral side of the genu varum knee. Using an anatomic alignment guide to line it up, I pinned it in place. I then made a tibial cut without difficulty. Once I had accomplished this, I flexed the knee. I used a posterior referencing guide to size it to a size 3. I put on the size 3 cutting block aligning the epicondylar axis and Steele line. Once I had it in place, I made an anterior cut, posterior cut, and anteroposterior chamfer cuts without difficulty. I then sharply removed the medial and lateral meniscus. At this point I got my block and sized and balanced it to a size 11 in both flexion and extension after doing some capsular releases. Once I had it balanced, I went ahead and put my trial components on. We put the knee into extension. With the knee in extension, I everted the patella and removed the osteophytes. I used the Serafin total reaming system to ream off approximately 10 mm of bone. Once I had taken off 10 mm, I sized it to a size 35. I drilled the lugs and put the button on. With the button on, I put the knee through a range of motion. I had full extension and full flexion for good range of motion. I had good balance, good stability, and good tracking of the patella. I was very happy with all of my components. I went ahead and marked tibial tray rotation. Once I had done this, I went ahead and took out all my trial components. I sized and punched the tibia in the usual manner. I implanted the tibial tray. After accomplishing this, I went ahead and put on the press-fit femur. I then placed the patellar button and put on an 11 mm spacer. With the knee in extension, I put the knee through a range of motion. I felt this was the correct size. I popped it out and put the real poly in without difficulty. Once it was in place, I put the knee through a range of motion. I had full extension and full flexion for good range of motion. I had good balance, good stability, and good tracking of the patella.Throughout the case, I checked the components positioning and alignment with fluoroscopy to help with placement. At this point, I was very happywith all my components. I dropped the tourniquet. I copiously irrigated with 2 liters of normal saline. I then achieved hemostasis using Bel and the Bovie. I then went ahead and closed the sub vastus capsular incision with interrupted Vicryl, #2 Quill, and closed the rest in the usual layered fashion. The patient tolerated the procedure well. An legal document assistant was necessary as she actively assisted with instrumentation, retraction, reduction, and suture management. POSTOPERATIVE COURSE: Weight bearing as tolerated, total joint program. Bruce Oh MD * Bruce Oh MD - 12/28/2018 3:54 PM EDT [facility] OPERATIVE/PROCEDURE NOTE WeslyLana ahrrisdutch Walls December 28, 2018 Body mass index is 30.65 kg/m??. PRE-OP DIAGNOSIS: Primary osteoarthritis of left knee [M17.12] POST-OP DIAGNOSIS: Primary osteoarthritis of left knee [M17.12] PROCEDURE(S): Procedure(s): left knee total replacement SURGEON(S): Surgeon(s) and Role: * Bruce Oh MD - Primary ASSISTANT FEDERAL PUBLIC DEFENDER(S): Blaire Potter PA-C ANESTHESIA: General w/Block SPECIMENS: * No specimens in log * ESTIMATED BLOOD LOSS (mls): 10 *EBL MUST be documented as a numeric value FINDINGS: as above OTHER INFO: WBAT with walker DISPOSITION/POST PROC COURSE: Stable to PACU Bruce Oh MD Date: 12/28/2018 documented in this encounter Nursing Notes * Tameka Krueger RN - 12/28/2018 1:58 PM EDT Handoff to Ting Zimmerman RN * Tameka Krueger RN - 12/28/2018 10:32 AM EDT Handoff to Melody Evans RN documented in this encounter Miscellaneous Notes * Plan of Care - Brisa, Amy L, RN - 12/31/2018 10:19 AM EDT Problem: Safety: Fall Risk Goal: Patient will remain free of falls and injury Outcome: Progressing Pt sitting in chair. Pt has call light in hand and alarms on. Pt has gait belt and walker. Pt is [id number]. * Utilization Review Notes - Marivel Garrett RN - 12/31/2018 10:14 AM EDT +OBS ORDER, +OBS EV MANAGEMENT CONT STAY ON MED/SURG UNIT left knee total replacement 12/31--PER ORTHO NOTES--Plan: Doing fine from an orthopaedic standpoint. Advance as directed. Will continue to monitor. OK for SNF. DC PLAN: [place], referral sent. Son will provide transportation at d/c. CC to follow. * Plan of Care - Ayla Gonzalez RN - 12/31/2018 12:27 AM EDT Problem: Safety: Fall Risk Goal: Patient will remain free of falls and injury Outcome: Progressing Note: Call light in reach. Non-slip socks and gait belt in use when ambulating. Bed/chair alarm in use. Problem: Pain Management Goal: The patient's stated pain goal will be reached and maintained. Description The patient's stated pain goal will be reached and maintained Outcome: Progressing Note: Pain tolerable with current PRN regimen. Problem: Knowledge Deficit Related to Disease Process/Treatment Description Goal: Patient/family will be knowledgeable of disease process and treatment Outcome: Progressing Note: Reviewed plan of care with patient and will update as necessary. * Plan of Care - Ninfa Espino, PT - 12/30/2018 2:27 PM EDT Problem: Ambulation Goal: Patient will ambulate safely 12/30/2018 1427 by Ninfa Espino PT Outcome: Progressing 12/30/2018 1013 by Ninfa Espino PT Outcome: Progressing * Plan of Care - Bruce Talbot RN - 12/30/2018 2:18 PM EDT VSS and assessment at patients baseline. No new complaints. Will continue to monitor. * Utilization Review Notes - Luisa Danielle RN - 12/30/2018 2:04 PM EDT APPROVED SDS,OBS ORDER IN [facility]. BUNDLE PT EMAIL SENT,now Son has to go out of town, Pt now has to go to snf, cc/ss following * Plan of Care - Ninfa Espino PT - 12/30/2018 10:13 AM EDT Problem: Ambulation Goal: Patient will ambulate safely Outcome: Progressing * Utilization Review Notes - Luisa Danielle RN - 12/30/2018 8:33 AM EDT OBS ORDER IN [facility]. CONT STAY REVIEW. SP 12/28/18left knee total replacement ANCEF IV X1, LOVENOX SQ BID,OXYCODONE PO X4, ULTRAM PO X1 DC PLAN- [facility] [place] WITH [facility] AT D C * Plan of Care - Adriana Toney RN - 12/29/2018 2:56 PM EDT Will continue to follow for any discharge needs that arise. * Plan of Care - Rachael Campbell RN - 12/29/2018 2:19 PM EDT Problem: Safety: Fall Risk Goal: Patient will remain free of falls and injury Outcome: Progressing Note: Call light in reach. Non-slip socks and gait belt in use when ambulating. Bed/chair alarm in use. Problem: Pain Management Goal: The patient's stated pain goal will be reached and maintained. Description The patient's stated pain goal will be reached and maintained Note: Pain tolerable with current PRN regimen Problem: Knowledge Deficit Related to Disease Process/Treatment Description Goal: Patient/family will be knowledgeable of disease process and treatment Note: Encouraged IS hourly. Patient ambulating in room with assist of 1 and walker. Working with PT. Aware of mobility restrictions. * Utilization Review Notes - Luisa Danielle RN - 12/29/2018 1:58 PM EDT APPROVED SDS,OBS ORDER IN [facility]. PT RECOMMENDS SNF * Utilization Review Notes - Luisa Danielle RN - 12/29/2018 9:22 AM EDT OBS ORDER IN [facility]. CAME TO MS FLOOR FROM PACU. SP 12/28/18 left knee total replacement OBS TO MS. PT EVAL. WBAT. IS Q2H, A BOOTS,ANCE FIV Q8H, LOVENOX SQ BID,IV 100ML/HR, OXYCODONE PO Q6HPRN DCPLAN- AWAITING PT EVAL FOR DC PLAN * Plan of Care - Mark Wagner RN - 12/29/2018 5:09 AM EDT Problem: Safety: Fall Risk Goal: Patient will remain free of falls and injury Outcome: Progressing Problem: Pain Management Goal: The patient's stated pain goal will be reached and maintained. Description The patient's stated pain goal will be reached and maintained Outcome: Progressing Problem: Knowledge Deficit Related to Disease Process/Treatment Description Goal: Patient/family will be knowledgeable of disease process and treatment Outcome: Progressing documented in this encounter Plan of Treatment Upcoming Encounters Date Type Department Care Team (Late st Contact Info) Description 05/16/2024 9:30 AM EST Office Visit [facility] [address] [place] [address] Gilda Francis PA [address] [place] [address] documented as of this encounter Procedures Procedure Name Priority Date/Time Associated Diagnosis Comments SCANNED RHYTHM STRIPS 01/01/2019 10:56 PM EDT HEMOGLOBIN AND HEMATOCRIT Timed 12/31/2018 6:42 AM EDT HEMOGLOBIN AND HEMATOCRIT Timed 12/30/2018 6:19 AM EDT HEMOGLOBIN AND HEMATOCRIT Timed 12/29/2018 5:35 AM EDT IP CONSULT TO CARE COORDINATION Routine 12/28/2018 6:10 PM EDT IP CONSULT TO SOCIAL WORK Routine 12/28/2018 6:10 PM EDT XR KNEE LEFT AP AND LATERAL SIVA 12/28/2018 5:06 PM EDT FL < 1 HOUR SIVA 12/28/2018 3:17 PM EDT TOTAL KNEE REPLACEMENT/ARTHROP LASTY 12/28/2018 2:15 PM EDT Primary osteoarthritis of left knee Special Needs kylee documented in this encounter Results * SCANNED RHYTHM STRIPS (01/01/2019 10:56 PM EDT) Anatomical Region Laterality Modality Other 01/01/2019 10:5 6 PM EDT us Unknown Unknown IMG ECG ORDERABLES Final Result * HEMOGLOBIN AND HEMATOCRIT (12/31/2018 6:42 AM EDT) Hgb 11.3 11.2 - 15.7 g/dL 12/31/2018 7:01 AM EDT [facility] Hct 36.7 34.0 - 45.0 % 12/31/2018 7:01 AM EDT [facility] Blood Venipuncture / Unknown 12/31/2018 6:42 AM EDT 12/31/2018 6:51 AM EDT us Bruce Oh MD HEMATOLOGY ORDERABLES Final Result Performing Organization Address City/[facility]/ZIP Co de Phone Number [facility], [address] , [place] [address] * (ABNORMAL) HEMOGLOBIN AND HEMATOCRIT (12/30/2018 6:19 AM EDT) Hgb 10.5(L) 11.2 - 15.7 g/dL 12/30/2018 6:54 AM EDT [facility] Hct 33.4(L) 34.0 - 45.0 % 12/30/2018 6:54 AM EDT [facility] [email or web address] Blood Venipuncture / Unknown 12/30/2018 6:19 AM EDT 12/30/2018 6:45 AM EDT us Bruce Oh MD HEMATOLOGY ORDERABLES Final Result Performing Organization Address City/[facility] Co de Phone Number [facility], [address] , [place] [address] * HEMOGLOBIN AND HEMATOCRIT (12/29/2018 5:35 AM EDT) Hgb 11.8 11.2 - 15.7 g/dL 12/29/2018 6:38 AM EDT [facility] Hct 36.4 34.0 - 45.0 % 12/29/2018 6:38 AM EDT [facility] Blood Venipuncture / Unknown 12/29/2018 5:35 AM EDT 12/29/2018 6:30 AM EDT Bruce Oh MD HEMATOLOGY ORDERABLES Final Result Performing Organization Address City/[facility] Co de Phone Number [facility] [employer] [address], [place] [address] * XR KNEE LEFT AP AND LATERAL [...] postsurgical intra-articular and subcutaneous gas. Procedure Note Carrington Posada MD - 12/28/2018 LEFT KNEE AP AND [...] arthroplasty with no visible complication. - Bruce WILCOXG DIAGNOSTIC IMAGING ORDER LILLIAN Final Result * FL < 1 HOUR (12/28/2018 3:17 PM EDT) Narrative PACS - 12/28/2018 3:18 PM EDT Fluoroscopy was performed. The radiologist was not in attendance. No permanent images were obtained. This dictation is being made for record keeping purposes. Bruce WILCOX FLUOROSCOPY ORDERABLES F inal Result PACS documented in this encounter Visit Diagnoses Not on filedocumented in this encounter Administered Medications Inactive Administered Medications - up to 1 most recent administrations Medication Order MAR Action Action Date Dose Rate Site acetaminophen (TYLENOL) tablet 1,000 mg 1,000 mg, Oral, PREPROCEDURE, 1 dose, Starting on Thu12/27/18 at 0832, Until Thu12/28/18 at 1005, Coanalgesic, Do not give if patient received acetaminophen within the last 6 hours Maximum adult dose of acetaminophen is 4000 mg from all sources in 24 hours. , Pre-op (Holding/SDS Meds) Given 12/28/2018 10:05 AM EDT 1,000 mg acetaminophen (TYLENOL) tablet 650 mg 650 mg, Oral, EVERY 4 HOURS PRN, Starting on Thu12/28/18 at 1810, Until Thu12/31/18 at 1536, Pain, Fever, Maximum adult dose of acetaminophen is 4000 mg from all sources in 24 hours. Given 12/30/2018 3:16 PM EDT 650 mg atorvastatin (LIPITOR) tablet 10 mg 10 mg, Oral, DAILY, First dose on Thu12/29/18 at 0900, Until Discontinued Given 12/31/2018 9:29 AM EDT 10 mg benzocaine-menthol 15-3.6 mg Lozg 1 Lozenge 1 Lozenge, Buccal, PRN, Starting on Thu12/28/18 at 1809, Until Thu12/31/18 at 1536, Sore Throat, Waste Sort Code = BKC, Post-op Given 12/29/2018 12:52 PM EDT 1 Lozenge bisacodyl (DULCOLAX) EC tablet 10 mg 10 mg, Oral, 2 TIMES DAILY, First dose on Thu12/30/18 at 0900, Until Discontinued, Start 48 hours post-op. Hold if patient has had bowel movement. Nurse may select tablet or suppository., Post-op Given 12/30/2018 9:29 PM EDT 10 mg bisacodyl (DULCOLAX) suppository 10 mg 10 mg, Rectal, 2 TIMES DAILY, First dose on Thu12/30/18 at 0900, Until Discontinued, Start 48 hours post-op. Hold if patient has had bowel movement. Nurse may select tablet or suppository., Post-op ceFAZolin (ANCEF) IVPB 2 g 2 g, Intravenous, *EVERY 8 HOURS, 2 doses, First dose on Thu12/28/18 at 2000, Last dose on Thu12/29/18 at 0400, Administer over 30 Minutes, Not to exceed 24 hrs post surgery end time, Post-op IV Started 12/29/2018 3:28 AM EDT 2 g 200 mL/hr docusate sodium (COLACE) capsule 100 mg 100 mg, Oral, 2 TIMES DAILY, First dose on Thu12/28/18 at 2100, Until Discontinued, Do not crush or chew., Post-op Given 12/31/2018 9:29 AM EDT 100 mg enoxaparin (LOVENOX) injection 30 mg 30 mg, Subcutaneous, EVERY 12 HOURS SCHEDULED (2 times per day), First dose on Thu12/29/18 at 0900, Until Discontinued, Post-op Given 12/31/2018 9:28 AM EDT 30 mg Right Lower Quadrant- Abdomen famotidine (PEPCID) 20 mg in sodium chloride 10 mL injection 20 mg, Intravenous, ONCE PREPROCEDURE, 1 dose, On Thu12/27/18 at 0845, Slow IV push (greater than 2 minutes). To be given in SDS/Pre-op Holding Area Dilute with 0.9% Sodium Chloride to total volume of 10 ml and administer over a not less than 2 minutes., Pre-op (Holding/SDS Meds) Given 12/28/2018 10:04 AM EDT 20 mg fentaNYL (SUBLIMAZE) 50 mcg/mL injection 1 dose, Starting on Thu12/28/18 at 1247, Until Thu12/28/18 at 1549, Tonja Berg : cabinet override fentaNYL (SUBLIMAZE) injection 25 mcg 25 mcg, Intravenous, PRN, Starting on Thu12/28/18 at 1545, Until Thu12/28/18 at 1801, Pain, For initial pain. Maximum dose not to exceed 100 mcg. Can repeat every 2 minutes, PACU Given 12/28/2018 4:06 PM EDT 25 mcg ferrous sulfate tablet 325 mg 325 mg, Oral, 2 TIMES DAILY WITH MEALS, First dose on Thu12/29/18 at 0800, Until Discontinued, Take with food other than cereals, dietary fiber, tea, coffee, eggs, or milk. Provides 65 mg of elemental iron. Do not crush., Post-op Given 12/31/2018 9:29 AM EDT 325 mg lactated ringers infusion Intravenous, at 100 mL/hr, PREPROCEDURE CONTINUOUS, Starting on Thu12/27/18 at 0832, Until Thu12/28/18 at 1801, To be given in SDS/Pre-op Holding Area, Pre-op (Holding/SDS Meds) New Bag 12/28/2018 3:25 PM EDT lactated ringers infusion Intravenous, at 100 mL/hr, CONTINUOUS, Starting on Thu12/28/18 at 1615, Until Gretel 12/30/18 at 1614, Post-op Rate/Dose Verify 12/29/2018 7:13 AM EDT 100 mL/hr magnesium hydroxide (MILK OF MAGNESIA) 400 mg/5 mL suspension 30 mL 30 mL, Oral, DAILY, First dose on Thu12/29/18 at 0900, Until Discontinued, Start POD #1. Hold if patient has had bowel movement., Post-op Given 12/31/2018 9:28 AM EDT 30 mL morphine injection 2 mg 2 mg, Intravenous, EVERY 10 MIN PRN, Starting on Thu12/28/18 at 1545, Until Thu12/28/18 at 1801, Pain, Do not exceed 20 mg in one hour unless otherwise ordered by the Anesthesia Coordinator For pain unrelieved by fentanyl, PACU Given 12/28/2018 5:14 PM EDT 2 mg ondansetron (ZOFRAN) injection 4 mg 4 mg, Intravenous, EVERY 4 HOURS PRN, Starting on Thu12/28/18 at 1809, Until Thu12/31/18 at 1536, Nausea, Post-op ondansetron (ZOFRAN-ODT) disintegrating tablet 4 mg 4 mg, Oral, EVERY 4 HOURS PRN, Starting on Thu12/28/18 at 1809, Until Thu12/31/18 at 1536, Nausea, Dissolve in mouth, Post-op oxyCODONE (OxyCONTIN) CR tablet 10 mg 10 mg, Oral, PREPROCEDURE, 1 dose, Starting on Thu12/27/18 at 0832, Until Thu12/28/18 at 1005, Other, Coanalgesic, Do not crush or chew, Pre-op (Holding/SDS Meds) Given 12/28/2018 10:05 AM EDT 10 mg oxyCODONE (ROXICODONE) immediate release tablet 5-10 mg 5-10 mg, Oral, EVERY 6 HOURS PRN, Starting on Thu12/28/18 at 1810, Until Thu12/31/18 at 1536, Pain, for severe pain 6-10, Ok to rotate with tramadol Given 12/31/2018 9:15 AM EDT 5 mg povidone-iodine 5 % intranasal solution 1 Kit 1 Kit, INTRANASAL, ONCE, 1 dose, On Thu12/28/18 at 0645, Use a tissue to clean the inside of both nostrils including tip of nostril. Insert saturated swab comfortably into one nostril and rotate for 15 seconds covering all surfaces. Then focus on the inside tip of nostril and rotate for an additional 15 seconds. Using a new swab, repeat in the alternate nostril. Repeat the application in both nostrils using a fresh swab each time. Do not blow nose. If solution drips out of nose, it can be lightly dabbed with a tissue Given 12/28/2018 10:11 AM EDT 1 Kit Both Nares pregabalin (LYRICA) capsule 75 mg 75 mg, Oral, PREPROCEDURE, 1 dose, Starting on Thu12/27/18 at 0832, Until Thu12/28/18 at 1005, Other, Coanalgesic, Pre-op (Holding/SDS Meds) Given 12/28/2018 10:05 AM EDT 75 mg senna (SENOKOT) tablet 2 Tab 2 Tablet, Oral, NIGHTLY, 2 doses, First dose on Thu12/28/18 at 2100, Last dose on Thu12/29/18 at 2100, Post-op Given 12/29/2018 8:14 PM EDT 2 Tablets traMADol (ULTRAM) tablet 50-100 mg 50-100 mg, Oral, EVERY 8 HOURS PRN, Starting on Thu12/28/18 at 1810, Until Thu12/31/18 at 1536, Pain, for mod pain 1-5 or breakthrough pain, OK to rotate with oxycodone/norco Given 12/31/2018 6:30 AM EDT 100 mg documented in this encounter Discontinued Medications Medication Sig Discontinue Reason Start Date End Da te aspirin 81 mg Oral Tablet, Delayed Release (E.C.) Take 81 mg by mouth daily. Stop Taking at Discharge 12/31/2018 diclofenac (VOLTAREN) 75 mg Oral Tablet, Delayed Release (E.C.)Indications:Osteoar thritis, unspecified osteoarthritis type, unspecified site Take 1 Tab by mouth 2 times daily (with meals) for 360 days. Stop Taking at Discharge 12/06/2018 12/31/2018 documented as of this encounter Active and Recently Administered Medications Times are shown in EDT. Scheduled Medication Order 12/29/2018 12/30/2018 12/31/2018 atorvastatin (LIPITOR) tablet 10 mg 10 mg, Oral, DAILY, First dose on Thu12/29/18 at 0900, Until Discontinued 08 (Given - Provider: Rachael Campbell RN) 0840 (Given - Provider: Bruce Talbot RN) 09 (Given - Provider: Amy Ledezma, UMA) bisacodyl (DULCOLAX) EC tablet 10 mg(Linked Group 1) 10 mg, Oral, 2 TIMES DAILY, First dose on Thu12/30/18 at 0900, Until Discontinued, Start 48 hours post-op. Hold if patient has had bowel movement. Nurse may select tablet or suppository., Post-op 0840 (Given - Provider: Bruce Talbot RN)2128 (Given - Provider: Ayla Gonzalez, UMA) 0900 (Not Given - Provider: Amy Ledezma, UMA - Reason: Order parameters not met) bisacodyl (DULCOLAX) suppository 10 mg(Linked Group 1) 10 mg, Rectal, 2 TIMES DAILY, First dose on Thu12/30/18 at 0900, Until Discontinued, Start 48 hours post-op. Hold if patient has had bowel movement. Nurse may select tablet or suppository., Post-op 0840 (See Alternative - Provider: Bruce Talbot RN)2128 (See Alternative - Provider: Ayla Gonzalez, RN) 0900 (See Alternative - Provider: Amy Ledezma, UMA) ceFAZolin (ANCEF) IVPB 2 g (COMPLETED) 2 g, Intravenous, *EVERY 8 HOURS, 2 doses, First dose on Thu12/28/18 at 2000, Last dose on Thu12/29/18 at 0400, Administer over 30 Minutes, Not to exceed 24 hrs post surgery end time, Post-op 032 (IV Started - Provider: Mark Wagner, RN)035 (Stopped - Provider: Mark Wagner RN) docusate sodium (COLACE) capsule 100 mg 100 mg, Oral, 2 TIMES DAILY, First dose on Thu12/28/18 at 2100, Until Discontinued, Do not crush or chew., Post-op 821 (Given - Provider: Rachael Campbell, RN)2013 (Given - Provider: Eileen Schmid, RN) 839 (Given - Provider: Bruce Talbot, RN)2128 (Given - Provider: Ayla Gonzalez, RN) 928 (Given - Provider: Amy Ledezma, RN) enoxaparin (LOVENOX) injection 30 mg 30 mg, Subcutaneous, EVERY 12 HOURS SCHEDULED (2 times per day), First dose on Thu12/29/18 at 0900, Until Discontinued, Post-op 822 (Given - Provider: Rachael Campbell, UMA)2013 (Given - Provider: Eileen Schmid, UMA) 839 (Given - Provider: Bruce Talbot, UMA)2128 (Given - Provider: Ayla Gonzalez, RN) 927 (Given - Provider: Amy Ledezma, RN) ferrous sulfate tablet 325 mg 325 mg, Oral, 2 TIMES DAILY WITH MEALS, First dose on Thu12/29/18 at 0800, Until Discontinued, Take with food other than cereals, dietary fiber, tea, coffee, eggs, or milk. Provides 65 mg of elemental iron. Do not crush., Post-op 822 (Given - Provider: Rachael Campbell RN)1710 (Given - Provider: Rachael Campbell RN) 839 (Given - Provider: Bruce Talbot, RN)1846 (Given - Provider: Bruce Talbot, RN) 928 (Given - Provider: Amy Ledezma, RN) magnesium hydroxide (MILK OF MAGNESIA) 400 mg/5 mL suspension 30 mL 30 mL, Oral, DAILY, First dose on Thu12/29/18 at 0900, Until Discontinued, Start POD #1. Hold if patient has had bowel movement., Post-op 0823 (Given - Provider: Rachael Campbell, RN) 0840 (Given - Provider: Bruce Talbot, RN) 0928 (Given - Provider: Amy Ledezma RN) senna (SENOKOT) tablet 2 Tab (COMPLETED) 2 Tablet, Oral, NIGHTLY, 2 doses, First dose on Thu12/28/18 at 2100, Last dose on Thu12/29/18 at 2100, Post-op 2013 (Given - Provider: Eileen Schmid, UMA) Continuous Medication Order 12/29/2018 12/30/2018 12/31/2018 lactated ringers infusion () Intravenous, at 100 mL/hr, CONTINUOUS, Starting on Thu12/28/18 at 1615, Until Thu12/30/18 at 1614, Post-op 0713 (Rate/Dose Verify - Provider: Rachael Campbell RN) 1808 (IV Stopped by Other - Provider: Bruce Talbot, UMA) PRN Medication Order 12/29/2018 12/30/2018 12/31/2018 acetaminophen (TYLENOL) tablet 650 mg 650 mg, Oral, EVERY 4 HOURS PRN, Starting on Thu12/28/18 at 1810, Until Thu12/31/18 at 1536, Pain, Fever, Maximum adult dose of acetaminophen is 4000 mg from all sources in 24 hours. 0705 (Given - Provider: Mark Wagner RN)1339 (Given - Provider: Rachael Campbell, UMA)2013 (Given - Provider: Eileen Schmid, UMA) 0840 (Given - Provider: Bruce Talbot, UMA)1516 (Given - Provider: Bruce Talbot, RN) aluminum & magnesium hydroxide-simethicone 200-200-20 mg/5 mL suspension 15 mL 15 mL, Oral, EVERY 4 HOURS PRN, Starting on Thu12/28/18 at 1809, Until Thu12/31/18 at 1536, Indigestion, Patient may have alternate Antacid of Choice, Post-op benzocaine-menthol 15-3.6 mg Lozg 1 Lozenge 1 Lozenge, Buccal, PRN, Starting on Thu12/28/18 at 1809, Until Thu12/31/18 at 1536, Sore Throat, Waste Sort Code = BKC, Post-op 1252 (Given - Provider: Rachael Campbell, UMA) ondansetron (ZOFRAN) injection 4 mg(Linked Group 2) 4 mg, Intravenous, EVERY 4 HOURS PRN, Starting on Thu12/28/18 at 1809, Until Thu12/31/18 at 1536, Nausea, Post-op ondansetron (ZOFRAN-ODT) disintegrating tablet 4 mg(Linked Group 2) 4 mg, Oral, EVERY 4 HOURS PRN, Starting on Thu12/28/18 at 1809, Until Thu12/31/18 at 1536, Nausea, Dissolve in mouth, Post-op oxyCODONE (ROXICODONE) immediate release tablet 5-10 mg 5-10 mg, Oral, EVERY 6 HOURS PRN, Starting on Thu12/28/18 at 1810, Until Thu12/31/18 at 1536, Pain, for severe pain 6-10, Ok to rotate with tramadol 0247 (Given - Provider: Adamaris Fish RN)0928 (Given - Provider: Rachael Campbell RN)1529 (Given - Provider: Rachael Campbell RN)2227 (Given - Provider: Charissa Iyer RN) 0526 (Given - Provider: Lisbeth Del Rosario RN) 0130 (Given - Provider: Ayla Gonzalez RN)0915 (Given - Provider: Cierra Villeda, UMA) tiZANidine (ZANAFLEX) tablet 2 mg 2 mg, Oral, EVERY 8 HOURS PRN, Starting on Thu12/28/18 at 1810, Until Thu12/31/18 at 1536, Muscle spasms traMADol (ULTRAM) tablet 50-100 mg 50-100 mg, Oral, EVERY 8 HOURS PRN, Starting on Thu12/28/18 at 1810, Until Thu12/31/18 at 1536, Pain, for mod pain 1-5 or breakthrough pain, OK to rotate with oxycodone/norco 1125 (Given - Provider: Rachael Campbell RN) 0105 (Given - Provider: Lisbeth Del Rosario RN)1323 (Given - Provider: Bruce Talbot RN)2128 (Given - Provider: Ayla Gonzalez, RN) 0630 (Given - Provider: Ayla Gonzalez, RN) Linked Groups Order Group 1: bisacodyl (DULCOLAX) EC tablet 10 mgJump to med 10 mg, Oral, 2 TIMES DAILY, First dose on Gretel 12/30/18 at 0900, Until Discontinued, Start 48 hours post-op. Hold if patient has had bowel movement. Nurse may select tablet or suppository., Post-op Or bisacodyl (DULCOLAX) suppository 10 mgJump to med 10 mg, Rectal, 2 TIMES DAILY, First dose on Gretel 12/30/18 at 0900, Until Discontinued, Start 48 hours post-op. Hold if patient has had bowel movement. Nurse may select tablet or suppository., Post-op Group 2: ondansetron (ZOFRAN) injection 4 mgJump to med 4 mg, Intravenous, EVERY 4 HOURS PRN, Starting on Thu12/28/18 at 1809, Until Thu12/31/18 at 1536, Nausea, Post-op Or ondansetron (ZOFRAN-ODT) disintegrating tablet 4 mgJump to med 4 mg, Oral, EVERY 4 HOURS PRN, Starting on Thu12/28/18 at 1809, Until Thu12/31/18 at 1536, Nausea, Dissolve in mouth, Post-op documented in this encounter Orders Medications Ordered That [place] ht Not Have Been Administered Count Last Ordered Date First Ordered Date aluminum & magnesium hydroxi de-simethicone 200-200-20 mg/5 mL suspension 15 mL 1 12/28/2018 bisacodyl (DULCOLAX) suppository 10 mg 1 ondansetron (ZOFRAN) injection 4 mg 2 12/28 ondansetron (ZOFRAN-ODT) dis integrating tablet 4 mg 1 12/28/2018 ondansetron (ZOFRAN-ODT) dis integrating tablet 8 mg 1 12/28/2018 ortho canal block 1 12/28/2018 tiZANidine (ZANAFLEX) tablet 2 mg 1 019 tranexamic acid injection 1 12/28/2018 vancomycin (VANCOCIN) recons tituted injection 1 12/28/2018 ceFAZolin (ANCEF) IVPB 2 g 1 12/27/2018 tranexamic acid injection 1,000 mg 1 2018 Nursing Count Last Ordered Date First Orde red Date ADMISSION 1 12/28/2018 Consult Count Last Ordered Date First Orde red Date IP CONSULT TO CARE COORDINATION 1 9 IP CONSULT TO SOCIAL WORK 1 12/28/2018 PT Count Last Ordered Date First Orde red Date PT PLAN OF CARE CERTIFICATION 1 12/29/2018 IP CONSULT TO PHYSICAL THERAPY 1 12/28/2018 Transfer Count Last Ordered Date First Orde red Date BED REQUEST 1 12/28/2018 Discharge Count Last Ordered Date First Orde red Date DISCHARGE PATIENT 1 12/31/2018 documented in this encounter Additional Health Concerns Assessment Noted Time A fall risk assessment has been complete d for the patient 12/06/2018 7:30 AM EDT documented as of this encounter Care Teams Performance Architect Relationship Specialty Start Date End Date Mann Irene MD [address] [place] [id number] PCP - General Internal Medicine 08/23/12 07/13/22 documented as of this encounter
--- OUTSIDE RECORDS SUMMARY | 2024-03-27 15:05 | XMS_ITS | Encounter Summary ---
Author Organization [place] [address] Care Team Providers Care Welding Tester Name Role Phone Mann Irene MD Primary Care Provider [phone] Reason for Visit * Auth/Cert/Inpt Specialty Diagnoses / Procedures Referred By Ramona [email or web address] Referred To Contact Diagnoses Primary osteoarthritis of left knee Primary osteoarthritis of left knee [M17.12] Procedures PA TOTAL KNEE ARTHROPLASTY left knee total replacement Referral ID Status Reason Start Date Expiration Date Visits Re quested Visits Authorized [id number] 1 1 Encounter Details Date Type Department Care Team (Late st Contact Info) Description 12/28/2018 2:45 PM EDT - 12/28/2018 4:00 PM [place] [address] Bruce Oh MD [address] [place] [address] TOTAL KNEE REPLACEMENT/ARTHROPLAS TY Surgery Details Date/Time Status Location OR Service Patient Class Case Class Case Type Trauma Case? 12/28/2018 2:45 PM Posted EDG MAIN OR EDG Room 09 Orthopedics Same Day Surgery Elective Panel 1 Procedure LRB Anes Op Region Wound Class Comments TOTAL KNEE REPLACEMENT/ARTHROPL ASTY Left General w/Block Clean left knee total replacement Surgeon Surgeon Role Service Panel Bruce Oh MD Primary Orthopedics 1 Special Needs kylee documented in this encounter Social History Tobacco [...] Sign Reading Time Taken Comments Blood Pressure 131/69 12/28/2018 4:00 PM EDT Pulse 87 12/28/2018 4:00 PM EDT Temperature 36.4 ??C (97.6 ??F) 12/28/2018 3:41 PM ED T Respiratory Rate 16 12/28/2018 4:00 PM EDT Oxygen Saturation 97% 12/28/2018 4:00 PM EDT Inhaled Oxygen Concentration - [...] 7:32 AM CAITT Tomi Slaughter CCMA * Because of a [...] EDT Dear Patient, The staff of at [facility] sincerely hopes that your hospital stay was pleasant. We try to ensure that our patients are cared for in the most respectful and comfortable way. The staff members of pride themselves on delivering kind and compassionate care to each and every patient. Working collaboratively with physicians, social workers, catalytic case operator, and the discharge team, we attempt to [...] for further explanation. Thank you for choosing [facility]. We hope that you have had a [...] the correct instructions below (Dermabond Prineo or Ruth) that coincide with your wound dressing. ?? [...] gel bags. SMI Wrap care instructions: The [facility] cold therapy wrap can be hand washed and air dried. Additional [facility] body specific wraps can be re-ordered from [employer] or call [phone]. [facility] re-order information: Visit our Patient Retail Store at www.[employer] Telephone orders: If Prescribed: Phil Hose/Compression Stockings [...] Department of Health and Human Services, national [place] of Health, National Heart Lungs and Blood [place], Obtained on 04/19/2007 from http: www.nihlb i.nih.gov/health/dci/Diseases/Dvt/DVT_All.html [...] in your stool, contact your doctor. Reference: [facility] - Tools for Healthier Lives ? [employer]? . [employer] HOME SAFETY GUIDELINES Medications ??? Discard outdated [...] Control and Prevention www.cdc.gov ADD: Home Safety [place] www.Homesafetycouncil.org MISCELLANEOUS Activity as tolerated as instructed [...] ??? Gastrointestinal procedures (EDG or Colonoscopy) Call [phone] ([facility]) for any questions or concerns. Also feel free to use the After Hours clinic at: [facility] After Hours Clinic [address] [place] [address] Thursday-Thursday 9:00 am to 9:00 pm Thursday [...] except on yourdoctor's advice. Talk to your veneer jointer helper regarding the use of this medicine in [...] inflammation, like ibuprofen or naproxen -rifampin -ritonavir -[place]'s wort This list may not describe all [...] or bleed. Call your doctor or health career guidance technician if you notice any unusual bleeding. Be careful brushing and flossing your teeth or using a toothpick because you may bleed more easily.If you have any dental work done, tell your dentist you are receiving this medicine. What side effects may I notice from receiving this medicine? Side effects that you should report to your doctor or health career guidance technician as soon as possible: -allergic reactions like [...] may report side effects to FDA at 7-936-TAQ-9642. Where should I keep my medicine? Keep [...] information carefully each time. Talk to your veneer jointer helper regarding the use of this medicine in [...] this medicine? Tell your doctor or health career guidance technician if your pain does not go away, [...] 3 days, call your doctor or health career guidance technician. Your mouth may get dry. Chewing sugarless gum or sucking hard candy, and drinking plenty of water may help. Contact your doctor if the problem does not go away or is severe. What side effects may I notice from receiving this medicine? Side effects that you should report to your doctor or health career guidance technician as soon as possible: -allergic reactions like [...] attention (report to your doctor or health career guidance technician if they continue or are bothersome): -constipation -dry mouth -nausea, vomiting -tiredness This list may not describe all possible side effects. Call your doctor for medical advice about side effects. You may report side effects to FDA at 1-884-RMW-7533. Where should I keep my medicine? Keep [...] health care provider. ?? 2019 Elsevier/Gold Standard (2016-01-20 09:00:04) Tizanidine tablets or capsules What is this medicine? TIZANIDINE (marcio BABATUNDE deshpande emma) helps to relieve muscle spasms. It [...] can be very dangerous. Talk to your veneer jointer helper regarding the use of this medicine in [...] this medicine? Tell your doctor or health career guidance technician if your symptoms do not start to [...] should report to your doctor or health career guidance technician as soon as possible: -allergic reactions like [...] attention (report to your doctor or health career guidance technician if they continue or are bothersome): -blurred vision -constipation -dizziness -dry mouth -tiredness This list may not describe all possible side effects. Call your doctor for medical advice about side effects. You may report side effects to FDA at 1-164-JQP-0209. Where should I keep my medicine? Keep [...] if you have any of these conditions: -Queen Anne'S's disease -brain tumor -drug abuse or addiction [...] before you take it. Talk to your veneer jointer helper regarding the use of this medicine in [...] this medicine? Tell your doctor or health career guidance technician if your pain does not go away, [...] 3 days, call your doctor or health career guidance technician. Your mouth may get dry. Drinking water, chewing sugarless gum, or sucking on hard candy may help. See your dentist every 6 months. What side effects may I notice from receiving this medicine? Side effects that you should report to your doctor or health career guidance technician as soon as possible: -allergic reactions like skin rash, itching or hives, swelling of the face, lips, or tongue -breathing problems -confusion -feeling faint or lightheaded, falls -trouble passing urine or change in the amount of urine -unusually weak or tired Side effects that usually do not require medical attention (report to your doctor or health career guidance technician if they continue or are bothersome): -constipation -dry mouth -itching -nausea, vomiting -upset stomach This list may not describe all possible side effects. Call your doctor for medical advice about side effects. You may report side effects to FDA at 3-273-IHT-2546. Where should I keep my medicine? Keep [...] by mouth 2 times daily. 60 Tab 12/30/2018 9 traMADol (ULTRAM) 50 mg Oral Tablet [...] Discharge Disposition Disposition Code Departure Means Destination [facility] Facility [facility] documented in this encounter Progress Notes * Zamzam Greenwood, PT - 12/31/2018 11:30 AM EDT 12/31/18 0824 PT Subjective Note Type Treatment/Progress PT Subjective Comments #1 [id number] PT Subjective Comments #2 Pt agrees to [...] care PT Frequency BID Recommendation PT Recommendation [facility] Facility (SNF) Time In / Time Out 2186-4779 IP PT Treatment Minutes 26 The total [...] d/c needs noted. Spoke to Amparo from [facility] who stated they can take anytime, son [...] from the original note were not included. [facility] Orthopaedic Surgery Progress Note Admit Date: 12/28/2018 [...] with Dr Oh today, she decided on [facility], referral sent. Son will provide transportation at [...] met Recommendation Time In / Time Out 7035-1780; 2307-3123 IP PT Treatment Minutes 23 The total [...] from the original note were not included. [facility] Orthopaedic Surgery Progress Note Admit Date: 12/28/2018 [...] at 01/06/2019 7:49 AM EDT * Ninfa Espino, PT - 12/30/2018 10:13 AM EDT 12/30/18 [...] current plan of care Recommendation PT Recommendation [facility] Facility (SNF) Time In / Time Out 8800-7740; 8738-8288 IP PT Treatment Minutes 38 (25 gt [...] Date of visit 12/29/18 Visit Type Initial [facility] Needs Pastoral care brochure;Prayer * Zamzam Greenwood, [...] pillows, bed alarm set. Recommendation PT Recommendation [facility] Facility (SNF) Time In / Time Out 5656-5021 IP PT Treatment Minutes 17 The total time spent caring for this patient included but was not limited to medical record review;hands-on treatment;communication and education with patient and/or family/caregiver * Adriana Toney, RN - 12/29/2018 2:55 PM EDT 12/29/18 1449 [...] a 2WW. Son to provide transportation at [facility]. PCP Dr. Irene. [facility] bundle plan is home with [facility] for PT x 2 weeks. Follow up with Dr. Oh on 01/12/19 at 10:45 in [place]. PT recommends SNF. CC alerted CC retention manager who spoke with Danny Luna.Their response [...] Status Alert and oriented Does patient need telemetry monitor? No Decision Maker Him/Herself Activities of Daily [...] Yes Agency/Facility Options Offered, list provided Yes [facility] Financial Disclosure completed? Yes * Rachael Campbell, RN - 12/29/2018 2:53 PM EDT Patient unhappy about food quality. Message sent to nutrition for ambassador/dietary to address with patient and offer suggestions that might better meet the patient's tastes. * Ninfa Espino, PT - 12/29/2018 12:28 PM EDT 12/29/18 1112 PT Subjective Note Type Evaluation PT Subjective Comments #1 [id number] PT Subjective [...] tolerance PT Frequency BID Recommendation PT Recommendation [facility] Facility (SNF) Time In / Time Out 0294-3271; 4336-0276 IP PT Evaluation Minutes 10 IP PT [...] from the original note were not included. [facility] Orthopaedic Surgery Progress Note Admit Date: 12/28/2018 [...] H&P Notes * Hailey Loera APRN - 12/28/2018 9:45 AM EDT [facility] History and Physical Name: Stella Hylton ADDRESS: [address] [place] [address] : 1945 AGE: 73 y.o. Assessment: Primary [...] Bautista MD; Location: ED MAIN OR; Service: Prior to Admission medications [...] tobacco: Never Used ??? Tobacco comment: quit ~ Substance and Sexual Activity ??? Alcohol use: [...] Oh MD - 12/31/2018 9:30 AM EDT [facility] OPERATIVE REPORT Stella Hylton 12/28/2018 PRE-OP DIAGNOSIS: Primary osteoarthritis of left knee [M17.12] POST-OP DIAGNOSIS: Primary osteoarthritis of left knee [M17.12] PROCEDURE: Procedure(s): left knee total replacement PRE-OP ANTIBIOTIC: ancef SURGEON: Surgeon(s) and Role: * Bruce Oh MD - Primary DRUG COUNSELOR: Blaire Potter PA-C ANESTHESIA: GETA ESTIMATED BLOOD LOSS: Per Anesthsia COMPLICATIONS: None IMPLANTS USED: Implant Name Type Inv. Item Serial No. Golf Ball Winder Lot No. LRB No. Used Action CMPNT FEM 3 KN LT CRCTE RTN BEAD TRTHLN TIARRA - [id number] CMPNT FEM 3 KN LT CRCTE RTN BEAD TRTHLN TIARRA KYLEE:ORTHOPEDICS [id number] Left 1 Implanted PATELLA BACKED METAL TRITANIUM ASYMMETRIC A 35 X 10 - [id number] PATELLA BACKED METAL TRITANIUM ASYMMETRIC A 35 X 10 KYLEE:ORTHOPEDICS HTMY Left 1 Implanted INSERT BEARING TIBIAL CS TRIATHLON X 3 SZ 4-11MM - [id number] INSERT BEARING TIBIAL CS TRIATHLON X 3SZ 4-11MM KYLEE:ORTHOPEDICS [id number] Left 1 Implanted BSPLT TIB TRTHLN 4 KN TRITANIUM - [id number] BSPLT TIB TRTHLN 4 KN TRITANIUM KYLEE:ORTHOPEDICS [id number] Left 1 Implanted HISTORY OF PRESENT ILLNESS: [...] cutting block aligning the epicondylar axis and Tift line. Once I had it in place, [...] The patient tolerated the procedure well. An assistant loan processor was necessary as she actively assisted with instrumentation, retraction, reduction, and suture management. POSTOPERATIVE COURSE: Weight bearing as tolerated, total joint program. Bruce Oh MD * Bruce Oh MD - 12/28/2018 3:54 PM EDT [facility] OPERATIVE/PROCEDURE NOTE Stella Hylton December 28, 2018 Body mass index is 30.65 kg/m??. PRE-OP DIAGNOSIS: Primary osteoarthritis of left knee [M17.12] POST-OP DIAGNOSIS: Primary osteoarthritis of left knee [M17.12] PROCEDURE(S): Procedure(s): left knee total replacement SURGEON(S): Surgeon(s) and Role: * Bruce Oh MD - Primary DRUG COUNSELOR(S): Blaire Potter PA-C ANESTHESIA: General w/Block SPECIMENS: [...] Miscellaneous Notes * Plan of Care - Amy eLdezma RN - 12/31/2018 10:19 AM EDT Problem: Safety: Fall Risk Goal: Patient will remain free of falls and injury Outcome: Progressing Pt sitting in chair. Pt has call light in hand and alarms on. Pt has gait belt and walker. Pt is [id number]. * Utilization Review Notes - Marivel Garrett RN - 12/31/2018 10:14 AM EDT +OBS ORDER, +OBS EV MANAGEMENT CONT STAY ON MED/SURG UNIT left knee total replacement 12/31--PER ORTHO NOTES--Plan: Doing fine from an orthopaedic standpoint. Advance as directed. Will continue to monitor. OK for SNF. DC PLAN: [facility], referral sent. Son will provide transportation at [...] necessary. * Plan of Care - Ninfa Espino PT - 12/30/2018 2:27 PM EDT Problem: Ambulation Goal: Patient will ambulate safely 12/30/2018 1427 by Ninfa Esipno PT Outcome: Progressing 12/30/2018 1013 by Ninfa Espino PT Outcome: Progressing * Plan of Care - Bruce Talbot RN - 12/30/2018 2:18 PM EDT VSS and assessment at patients baseline. No new complaints. Will continue to monitor. * Utilization Review Notes - Luisa Danielle RN - 12/30/2018 2:04 PM EDT APPROVED SDS,OBS ORDER IN [facility]. BUNDLE PT EMAIL SENT,now Son has to go out of town, Pt now has to go to snf, cc/ss following * Plan of Care - Ninfa Espino PT - 12/30/2018 10:13 AM EDT Problem: Ambulation Goal: Patient will ambulate safely Outcome: Progressing * Utilization Review Notes - Luisa Danielle RN - 12/30/2018 8:33 AM EDT OBS ORDER IN [facility]. CONT STAY REVIEW. SP 12/28/18left knee total replacement ANCEF IV X1, LOVENOX SQ BID,OXYCODONE PO X4, ULTRAM PO X1 DC PLAN- D [facility] WITH [facility] AT D C * Plan of Care [...] 1:58 PM EDT APPROVED SDS,OBS ORDER IN [facility]. PT RECOMMENDS SNF * Utilization Review Notes - Luisa Danielle RN - 12/29/2018 9:22 AM EDT OBS ORDER IN [facility]. CAME TO MS FLOOR FROM PACU. SP [...] EST Office Visit [facility] [address] [place] [address] Gilda Francis PA [address] [place] [address] documented as of this encounter Procedures Procedure [...] % 12/31/2018 7:01 AM EDT [facility] Blood Venipuncture / Unknown 12/31/2018 6:42 AM EDT 12/31/2018 6:51 AM EDT Bruce Oh MD HEMATOLOGY ORDERABLES Final Result Performing Organization Address City/[facility] Co de Phone Number [facility] [address] [place] [address] [place] [address] [place] [address] * (ABNORMAL) HEMOGLOBIN AND HEMATOCRIT (12/30/2018 6:19 AM EDT) Hgb 10.5(L) 11.2 - 15.7 g/dL 12/30/2018 6:54 AM EDT [facility] Hct 33.4(L) 34.0 - 45.0 % 12/30/2018 6:54 AM EDT [facility] Blood Venipuncture / Unknown 12/30/2018 6:19 AM EDT 12/30/2018 6:45 AM EDT Bruce Oh MD HEMATOLOGY ORDERABLES Final Result Performing Organization Address City/[facility]/ZIP Co de Phone Number [email or web address] [address] [place] [address] [place] [address] * HEMOGLOBIN AND HEMATOCRIT (12/29/2018 5:35 AM EDT) Hgb 11.8 11.2 - 15.7 g/dL 12/29/2018 6:38 AM EDT [facility] Hct 36.4 34.0 - 45.0 % 12/29/2018 6:38 AM EDT [facility] Blood Venipuncture / Unknown 12/29/2018 5:35 AM EDT 12/29/2018 6:30 AM EDT Bruce Oh MD HEMATOLOGY ORDERABLES Final Result [facility] [address] [facility] , [place] [address] * XR KNEE LEFT AP AND LATERAL [...] knee arthroplasty with no visible complication. - us Bruce Oh MD IMG DIAGNOSTIC IMAGING ORDER LILLIAN Final Result * FL < 1 HOUR (12/28/2018 3:17 PM EDT) Narrative PACS - 12/28/2018 3:18 PM EDT Fluoroscopy was performed. The radiologist was not in attendance. No permanent images were obtained. This dictation is being made for record keeping purposes. us Bruce Oh MD IMG FLUOROSCOPY ORDERABLES F inal Result PACS documented in this encounter Visit Diagnoses Diagnosis Primary osteoarthritis of left knee Primary localized osteoarthrosis, lower leg documented [...] at 1536, Nausea, Dissolve in mouth, Post-op ortho canal block ONCE PRN, 1 dose, Starting on Thu12/28/18 at 1518, Until Thu12/28/18 at 1518, Intra-op Given 12/28/2018 3:18 PM EDT 63 mL Left Knee oxyCODONE (OxyCONTIN) CR tablet 10 mg 10 [...] Given 12/31/2018 6:30 AM EDT 100 mg tranexamic acid injection ONCE PRN, 1 dose, Starting on Thu12/28/18 at 1524, Until Thu12/28/18 at 1524, Administer over 10 Minutes, Intra-op Given 12/28/2018 3:24 PM EDT 1,000 mg Left Knee vancomycin (VANCOCIN) reconstituted injection ONCE PRN, 1 dose, Starting on Thu12/28/18 at 1524, Until Thu12/28/18 at 1524, Intra-op Given 12/28/2018 3:24 PM EDT 1,000 mg Left Knee documented in this encounter Discontinued Medications Medication [...] dose on Thu12/29/18 at 0900, Until Discontinued 0822 (Given - Provider: Rachael Campbell RN) 0840 (Given - Provider: Bruce Talbot RN) 0929 (Given - Provider: Amy Ledezma, UMA) bisacodyl (DULCOLAX) EC tablet 10 mg(Linked Group 1) 10 mg, Oral, 2 TIMES DAILY, First dose on Thu12/30/18 at 0900, Until Discontinued, Start 48 hours post-op. Hold if patient has had bowel movement. Nurse may select tablet or suppository., Post-op 839 (Given - Provider: Bruce Talbot RN)2128 (Given - Provider: Ayla Gonzalez, UMA) 899 (Not Given - Provider: Amy Ledezma, UMA - Reason: Order parameters not met) bisacodyl (DULCOLAX) suppository 10 mg(Linked Group 1) 10 mg, Rectal, 2 TIMES DAILY, First dose on Thu12/30/18 at 0900, Until Discontinued, Start 48 hours post-op. Hold if patient has had bowel movement. Nurse may select tablet or suppository., Post-op 839 (See Alternative - Provider: Bruce Talbot RN)2128 (See Alternative - Provider: Ayla Gonzalez, UMA) 899 (See Alternative - Provider: Amy Ledezma, UMA) ceFAZolin (ANCEF) IVPB 2 g (COMPLETED) 2 g, Intravenous, *EVERY 8 HOURS, 2 doses, First dose on Thu12/28/18 at 2000, Last dose on Thu12/29/18 at 0400, Administer over 30 Minutes, Not to exceed 24 hrs post surgery end time, Post-op 0328 (IV Started - Provider: Mark Wagner RN)0358 (Stopped - Provider: Mark Wagner RN) docusate sodium (COLACE) capsule 100 mg 100 mg, Oral, 2 TIMES DAILY, First dose on Thu12/28/18 at 2100, Until Discontinued, Do not crush or chew., Post-op 821 (Given - Provider: Rachael Campbell RN)2013 (Given - Provider: Eileen Schmid RN) 839 (Given - Provider: Bruce Talbot RN)2128 (Given - Provider: Ayla Gonzalez, UMA) 928 (Given - Provider: Amy Ledezma, UMA) enoxaparin (LOVENOX) injection 30 mg 30 mg, Subcutaneous, EVERY 12 HOURS SCHEDULED (2 times per day), First dose on Thu12/29/18 at 0900, Until Discontinued, Post-op 822 (Given - Provider: Rachael Campbell RN)2013 (Given - Provider: Eileen Schmid RN) 08 (Given - Provider: Bruce Talbot RN)2128 (Given - Provider: Ayla Gonzalez RN) 09 (Given - Provider: Amy Ledezma, UMA) ferrous sulfate tablet 325 mg 325 mg, Oral, 2 TIMES DAILY WITH MEALS, First dose on Thu12/29/18 at 0800, Until Discontinued, Take with food other than cereals, dietary fiber, tea, coffee, eggs, or milk. Provides 65 mg of elemental iron. Do not crush., Post-op 822 (Given - Provider: Rachael Campbell RN)1710 (Given - Provider: Rachael Campbell RN) 08 (Given - Provider: Bruce Talbot RN)184 (Given - Provider: Bruce Talbot RN) 09 (Given - Provider: Amy Ledezma, UMA) magnesium hydroxide (MILK OF MAGNESIA) 400 mg/5 mL suspension 30 mL 30 mL, Oral, DAILY, First dose on Thu12/29/18 at 0900, Until Discontinued, Start POD #1. Hold if patient has had bowel movement., Post-op 822 (Given - Provider: Rachael Campbell RN) 08 (Given - Provider: Bruce Talbot RN) 09 (Given - Provider: Amy Ledezma, UMA) senna (SENOKOT) tablet 2 Tab (COMPLETED) 2 Tablet, Oral, NIGHTLY, 2 doses, First dose on Thu12/28/18 at 2100, Last dose on Thu12/29/18 at 2100, Post-op 2013 (Given - Provider: Eileen Schmid RN) Continuous Medication Order 12/29/2018 12/30/2018 12/31/2018 lactated ringers infusion () Intravenous, at 100 mL/hr, CONTINUOUS, Starting on Thu12/28/18 at 1615, Until Gretel 12/30/18 at 1614, Post-op 0713 (Rate/Dose Verify - Provider: Rachael Campbell RN) 1808 (IV Stopped by Other - Provider: Bruce Talbot, RN) PRN Medication Order 12/29/2018 12/30/2018 12/31/2018 acetaminophen [...] UMA) 0840 (Given - Provider: Bruce Talbot, RN)1516 (Given - Provider: Bruce Talbot, RN) aluminum [...] Post-op 1252 (Given - Provider: Rachael Campbell, RN) ondansetron (ZOFRAN) injection 4 mg(Linked Group 2) [...] with tramadol 0247 (Given - Provider: Adamaris Fish, UMA)0928 (Given - Provider: Rachael Campbell, UMA)1529 (Given - Provider: Rachael Campbell, UMA)2227 (Given - Provider: Charissa Iyer, UMA) 0526 (Given - Provider: Lisbeth Del Rosario, UMA) 0130 (Given - Provider: Ayla Gonzalez, UMA)0915 (Given - Provider: Cierra Villeda RN) tiZANidine (ZANAFLEX) tablet 2 mg 2 mg, Oral, EVERY 8 HOURS PRN, Starting on Thu12/28/18 at 1810, Until Thu12/31/18 at 1536, Muscle spasms traMADol (ULTRAM) tablet 50-100 mg 50-100 mg, Oral, EVERY 8 HOURS PRN, Starting on Thu12/28/18 at 1810, Until Thu12/31/18 at 1536, Pain, for mod pain 1-5 or breakthrough pain, OK to rotate with oxycodone/norco 1125 (Given - Provider: Rachael Campbell, UMA) 0105 (Given - Provider: Lisbeth Del Rosario, UMA)1323 (Given - Provider: Bruce Talbot RN)2129 (Given - Provider: Ayla Gonzalez, UMA) 0630 (Given - Provider: Ayla Gonzalez, UMA) Linked Groups Order Group 1: bisacodyl (DULCOLAX) [...] dis integrating tablet 8 mg 1 12/28/2018 tiZANidine (ZANAFLEX) tablet 2 mg 1 019 ceFAZolin (ANCEF) IVPB 2 g 1 12/27/2018 [...] documented as of this encounter Care Teams Welding Tester Relationship Specialty Start Date End Date Mann Irene MD [address] [place] [id number] PCP - General Internal Medicine 08/23/12 07/13/22 documented as of this encounter
--- OUTSIDE RECORDS SUMMARY | 2024-03-27 15:05 | XMS_ITS | Encounter Summary ---
Author Organization [place] [address] Care Team Providers Care Hay Baler Name Role Phone Mann Irene MD Primary Care Provider [phone] Reason for Referral * Consultation (Routine) - Closed Specialty Diagnoses / Procedures Referred By Contact Referred To Contact Pharmacist - Pharmacotherapy Diagnoses Encounter for medication review Mann Irene MD [address] [place] [address] Phone: tel: fax: Referral ID Status Reason Start Date Expiration Date Visits Re quested Visits Authorized [id number] Closed 01/26/2019 01/26/2020 99 99 Question Answer Services Hospital Discharge Medication Reconciliation Comments Pt discharged on 01/13/19 please complete MRP Encounter Details Date Type Department Care Team (Late st Contact Info) Description 01/26/2019 Orders Only [facility] [address] [place] [address] Mann Irene MD [address] [place] [address] Encounter for medication review (Primary Dx) Social History Tobacco Use Types [...] Assessment Author No 12/06/2018 7:32 AM Tomi Hugigns CCMA documented as of this encounter Mental [...] EST Office Visit [facility] [address] [place] [address] Gilda Francis PA [address] [place], [place] [id number] Scheduled Referrals Name Type Priority Associated Diagnoses Order Schedule AMB REFERRAL TO PHARMACY/MEDICATION MANAGEMENT Outpatient Referral Routine Encounter for medication review Ordered: 01/26/2019 documented as of this encounter Visit Diagnoses Diagnosis Encounter for medication review- Primary documented in this encounter Additional Health Concerns Assessment Noted Time A fall risk assessment has been complete d for the patient 12/06/2018 7:30 AM EDT documented as of this encounter Care Teams Hay Baler Relationship Specialty Start Date End Date Mann Irene MD [address] [place], [place] [id number] PCP - General Internal Medicine 08/23/12 07/13/22 documented as of this encounter
--- OUTSIDE RECORDS SUMMARY | 2024-03-27 15:05 | XMS_ITS | Encounter Summary ---
Author Organization [facility] [place] [address] Care Team Providers Care Natural Science Curator Name Role Phone Mann Irene MD Primary Care Provider [phone] Encounter Details Date Type Department Care Team (Latest Contact Info) Description 12/28/2018 Travel Social History Tobacco Use Types Packs/Day [...] EST Office Visit [facility] [address] [place] [address] Gilda Francis PA [address] [place] [address] documented as of this encounter Visit Diagnoses Not on filedocumented in this encounter Additional Health Concerns Assessment Noted Time A fall risk assessment has been complete d for the patient 12/06/2018 7:30 AM EDT documented as of this encounter Care Teams Natural Science Curator Relationship Specialty Start Date End Date Mann Irene MD [address] [place] [address] PCP - General Internal Medicine 08/23/12 07/13/22 documented as of this encounter
--- OUTSIDE RECORDS SUMMARY | 2024-03-27 15:05 | XMS_ITS | Encounter Summary ---
Author Organization [place] [address] Care Team Providers Care Service Bar Cashier Name Role Phone Mann Irene MD Primary Care Provider [phone] Reason for Visit * Auth/Cert/Inpt Specialty Diagnoses / Procedures Referred By Ramona [email or web address] Referred To Contact Diagnoses Nuclear sclerotic cataract of right eye Cortical age-related cataract, right eye Nuclear sclerotic cataract of right eye [H25.11] Cortical age-related cataract, right eye [H25.011] Procedures OH REMV CATARACT EXTRACAP,INSERT LENS RIGHT EYE CATARACT EXTRACTION WITH PHACOEMULSIFICATION AND INTRAOCULAR LENS Referral ID Status Reason Start Date Expiration Date Visits Re quested Visits Authorized [id number] 1 1 Encounter Details Date Type Department Care Team (Latest Contact Info) Description 02/28/2019 8:06 AM EDT - 02/28/2019 10:28 AM EDT Hospital Encounter EDG [address] [place] [id number] Conor Ramirez MD [address] [place] [address] Discharge Disposition: Home or Self [...] Sign Reading Time Taken Comments Blood Pressure 134/76 02/28/2019 10:11 AM EDT Pulse 74 02/28/2019 10:11 AM EDT Temperature 36.3 ??C (97.3 ??F) 02/28/2019 10:11 AM E DT Respiratory Rate 16 02/28/2019 10:11 AM EDT Oxygen Saturation 97% 02/28/2019 10:11 AM EDT Inhaled Oxygen Concentration - - [...] Date Author No 12/06/2018 7:32 AM EDT Grooms, M ichelle, CCMA documented in this encounter Discharge Instructions * Discharge Instructions* Conor Ramirez MD - 02/28/2019 9:54 AM EDT Images from the original note were not included. CATARACT SURGERY DISCHARGE INSTRUCTIONS FOR DR. CONOR RAMIREZ Best wishes are extended to you on behalf of [facility] as you are discharged. Please carefully read [...] light ?? Veil-like curtain across your eye [facility] phone number . There is an riveter assistant front desk manager 24 hours a day for emergencies. Call the [facility] with any questions or concerns. +++++++++++++++++++++++++++++++++++++++++++++++++++++++++++++++++++ [facility] Discharge Instructions - Following Anesthesia We appreciate [...] our office at . Get Well Soon! [facility] +++++++++++++++++++++++++++++++++++++++++++++++++++++++++++++++++++ documented in this encounter Medications [...] Bautista MD; Location: [facility] MAIN OR; Service: ??? TOTAL KNEE ARTHROPLASTY Left 12/28/2018 left knee total replacement; Surgeon: Bruce Oh MD; Location: [facility] MA[facility] OR; Service: Orthopedics Current Outpatient Medications: [...] Faustin Cardiac Risk Index (Circulation 1999; 100: 2828-2255) 1. High risk surgical procedures (intraperitoneal, intrathoracic, [...] Procedure Notes * Conor Ramirez MD - 02/28/2019 9:55 AM EDT PHYSICIAN???S OPERATIVE NOTE CONOR RAMIREZ M.D. Surgery Date: 02/28/2019 CHIEF COMPLAINT: [...] of Incisions: Micrometer Depth: mm Length: mm [place]: ?? Conor Ramirez M.D. Date documented in [...] ??? Review instructions provided by your surgeon. Neurophysiological Technician ??? On the day of surgery, it is important to have a Neurophysiological Technician, someone who is 18 years or older, [...] or near the operative extremity. ??? Nail honduran must be removed from operative extremity. Personal [...] a Living Will and Durable Power of Investments Manager for Healthcare, please bring a copy. ??? [...] experience while you are here. Surgery Center [facility] at [phone] - [address] [place] [address] documented in this encounter Plan of Treatment Upcoming Encounters Date Type Department Care Team (Late st Contact Info) Description 05/16/2024 9:30 AM EST Office Visit [facility] [address] [place] [address] Gilda Francis PA [address] [place] [address] documented as of this encounter [...] MAR Action Action Date Dose Rate Site phenylephrine (MYDFRIN) 2.5 % ophthalmic solution 1 Drop 1 Drop, Ophthalmic, PREPROCEDURE, 3 doses, Starting on 02/28/19 at 0818, Until 02/28/19 at 0842, Irritation, PREPROCEDURE, Administer one drop EVERY 5 MINUTES x 3 to operative eye, Pre-op (Holding/SDS Meds) Given 02/28/2019 8:42 AM EDT 1 Drop Right Eye sodium chloride 0.9% syringe Intravenous, PREPROCEDURE, Starting on 02/27/19 at 1438, Until 02/28/19 at 2105, Line Care, Pre-op Priming, For priming IV saline lock, Pre-op (Holding/SDS Meds) Given 02/28/2019 8:38 AM EDT 10 mL tropicamide (MYDRIACYL) 1 % ophthalmic solution 1 Drop 1 Drop, Ophthalmic, PREPROCEDURE, 3 doses, Starting on 02/28/19 at 0818, Until 02/28/19 at 0842, PREPROCEDURE, Administer 1 drop EVERY [...] (COMPLETED) ONCE PRN, 1 dose, Starting on 02/28/19 at 0952, Until Thu02/28/19 at 0952, Intra-op 0952 (Given - Provid er: Conor Ramirez MD) Epi-Shugarcaine mixture (COMPLETED) 3.8 mL, ONCE PRN, 1 dose, Starting on Thu02/28/19 at 0954, Until 02/28/19 at 0954, Intra-op 0954 (Given - Provid er: Conor Ramirez MD) EPINEPHrine HCl (PF) 0.5 mL in balanced salts (BSS) 500 mL Irrigation (COMPLETED) ONCE PRN, 1 dose, Starting on Thu02/28/19 at 1002, Until Thu02/28/19 at 1002, Intra-op 1002 (Given - Provid er: Conor Ramirez MD) moxifloxacin (VIGAMOX) 0.5 % ophthalmic solution (COMPLETED) ONCE PRN, 1 dose, Starting on Thu02/28/19 at 0952, Until 02/28/19 at 0952, Intra-op 0952 (Given - Provid er: Conor Ramirez MD) phenylephrine (MYDFRIN) 2.5 % ophthalmic [...] 0953, Intra-op 0953 (Given - Provid er: Conor Ramirez MD) [...] Veras RN) documented in this encounter Orders Medications Ordered That Parish ht Not Have Been Administered Count Last Ordered Date First Ordered Date chondroitin sulf-sod hyaluro dean (DUOVISC) intra-ocular kit 1 02/28/2019 Epi-Shugarcaine mixture 1 02/28/2019 EPINEPHrine HCl (PF) 0.5 mL in balanced salts (BSS) 500 mL Irrigation 1 02/28/2019 moxifloxacin (VIGAMOX) 0.5 % ophthalmic solution 1 02/28/2019 pilocarpine (PILOCAR) 1 % op hthalmic solution 1 02/28/2019 Discharge Count Last Ordered Date First Orde red Date DISCHARGE PATIENT 1 02/28/2019 documented in this encounter Additional Health Concerns Assessment Noted Time A fall risk assessment has been complete d for the patient 12/06/2018 7:30 AM EDT documented as of this encounter Care Teams Service Bar Cashier Relationship Specialty Start Date End Date Mann Irene MD [address] [place] [phone] PCP - General Internal Medicine 08/23/12 07/13/22 documented as of this encounter
--- OUTSIDE RECORDS SUMMARY | 2024-03-27 15:06 | XMS_ITS | Encounter Summary ---
Author Organization [place] [address] Care Team Providers Care Nurse Consultant Name Role Phone Mann Irene MD Primary Care Provider [phone] Reason for Visit * Reason Onset Date Comments Other 01/25/2016 bloodwork Encounter Details Date Type Department Care Team (Late st Contact Info) Description 01/25/2016 Telephone [facility] [address] [place] [address] [place] [address] Other (bloodwork) Social History Tobacco Use Types Packs/Day Years Used Date Smoking Tobacco: Former Cigarettes 0.5 25 0 09/27/1989 - 09/27/2014 Smokeless Tobacco: Never Comments:quit ~'06 Alcohol Use Standard Drinks/Week Comments No 0 (1 standard drink = 0.6 oz pur e alcohol) Comments No Sex and Gender Information Value Date Recorded Sex Assigned at Not on file Legal Sex Female 5:30 PM EDT Gender Identity Not on file Sexual Orientation Not on file documented as of this encounter Functional Status * Is the person deaf or does he/she have serious difficulty hearing? Answer Date of Assessment Author No 02/20/2014 3:41 PM EDT Rhea Ernandez RN * Is the person blind or does he/she have serious difficulty seeing even when wearing glasses? Answer Date of Assessment Author No 02/20/2014 3:41 PM EDT Rhea Ernandez RN * Does this person have serious difficulty walking or climbing stairs? Answer Date of Assessment Author No 02/20/2014 3:41 PM EDT Rhea Ernandez RN * Does this person have difficulty dressing or bathing? Answer Date of Assessment Author No 02/20/2014 3:41 PM EDT Rhea Ernandez RN * Because of a physical, mental or emotional condition, does this person have difficulty doing errands alone such as visiting a doctor's office or shopping? Answer Date of Assessment Author No 02/20/2014 3:41 PM EDT Rhea Ernandez RN documented as of this encounter Mental Status * Because of a physical, mental or emotional condition, does this person have serious difficulty concentrating, remembering or making decisions? Answer Entry Date Author No 02/20/2014 3:41 PM EDT Rhea Ernandez RN documented in this encounter Miscellaneous Notes * Telephone Encounter - Lucia Avalos CMA - 01/25/2016 2:23 PM EDT LM with normal lab results * Telephone Encounter - Cheyanne Donovan - 01/25/2016 8:38 AM EDT Wants bw results from Thursday documented in this encounter Plan of Treatment Upcoming Encounters Date Type Department Care Team (Late st Contact Info) Description 05/16/2024 9:30 AM EST Office Visit [facility] [address] [place] [address] Gilda Francis PA [address] [place] [address] documented as of this encounter Visit Diagnoses Not on filedocumented in this encounter Additional Health Concerns Assessment Noted Time A fall risk assessment has been complete d for the patient 03/02/2015 2:44 PM EDT PHQ-2 Depression Total Score: 1 09/04/19 16 11:00 AM EDT documented as of this encounter Care Teams Nurse Consultant Relationship Specialty Start Date End Date Mann Irene MD [address] [place] [address] PCP - General Internal Medicine 08/23/12 07/13/22 documented as of this encounter
--- OUTSIDE RECORDS SUMMARY | 2024-03-27 15:06 | XMS_ITS | Encounter Summary ---
Author [place] [address] Care Team Providers Care Asset Management Coordinator Name Role Phone Mann Irene MD Primary Care Provider [phone] Reason for Visit * Reason Comments Annual Exam medicare Cough green drainage x 1 w [place] Congestion Encounter Details Date Type Department Care Team (Latest Contact Info) Description 10/13/2017 8:00 AM EDT Office Visit [facility] [place] [address] [place] [address] Mann Irene MD [address] [place] [address] Hypercholesterolemia (Primary Dx); Hypernatremia; Need for hepatitis C screening test; Screening for deficiency anemia; Claudication (HCC); Acute bronchitis, unspecified organism Social History Tobacco Use Types Packs/Day Years [...] Sign Reading Time Taken Comments Blood Pressure 138/88 10/13/2017 8:03 AM EDT Pulse 78 10/13/2017 8:03 AM EDT Temperature 36.7 ??C (98 ??F) 10/13/2017 8:03 AM EDT Respiratory Rate 18 10/13/2017 8:03 AM EDT Oxygen Saturation 98% 10/13/2017 8:03 AM EDT Inhaled Oxygen Concentration - - Weight 80.3 kg (177 lb) 10/13/2017 8:03 AM EDT Height 162.6 cm (5' 4 ) 10/13/2017 8:03 AM EDT Body Mass Index 30.38 10/13/2017 8:03 AM EDT documented in this encounter Functional [...] Rhea Ernandez RN documented in this encounter Ordered Prescriptions Prescription Sig Dispense Quantity Refills Last Filled Start Date End Date amoxicillin (AMOXIL) 500 mg Oral CapsuleIndications: Acute bronchitis, unspecified organism Take 1 Cap by mouth 3 times daily for 7 days. 21 Cap 10/13/2017 10/20/2017 documented in this encounter Progress Notes * Mann Irene MD - 10/13/2017 8:00 AM EDT Assessment Diagnoses and all orders for this visit: Hypercholesterolemia - LIPID SCREEN; Future Hypernatremia Overview: Orders: - COMPREHENSIVE METABOLIC PANEL; Future Need for hepatitis C screening test - HEPATITIS C ANTIBODY - SCREENING; Future Screening for deficiency anemia - CBC WITH DIFF; Future Claudication (HCC) (Chronic) - [facility] LOWER EXTREMITY ARTERIAL DUPLEX COMPLETE; Future Acute bronchitis, unspecified organism - amoxicillin (AMOXIL) 500 mg Oral Capsule; Take 1 Cap by mouth 3 times daily for 7 days. Dispense:21 Cap; Refill: 0 Progress Note: Vitals: 10/13/17 0803 BP: 138/88 Pulse: 78 Resp: 18 Temp: 98 ??F (36.7 ??C) SpO2: 98% Weight: 177 lb (80.3 kg) Height: 5' 4 (1.626 m) Chief Complaint Patient presents with ??? Annual Exam medicare ??? Cough green drainage x 1 week ??? Congestion HPI: cough and congestion, green phlegm. Low grade fevers. For about a week. Check circulation - concerned about lower leg pain at times - especially after being at work all day or when more active. Review of Systems Constitutional: Positive for fever. Negative for activity change, fatigue and unexpected weight change. HENT: Positive for congestion. Negative for trouble swallowing. Eyes: Negative. Negative for photophobia, pain, discharge, itching and visual disturbance. Respiratory: Positive for cough. Negative for chest tightness, shortness of breath and wheezing. [...] and suicidal ideas. Thepatient is not nervous/anxious. Physical Exam Constitutional: She is oriented to person, place, and time. She appears well- developed and well-nourished. No distress. HENT: Head: Normocephalic and atraumatic. Right Ear: External ear normal. Left Ear: External ear normal. Mouth/Throat: No oropharyngeal exudate. Eyes: Conjunctivae are normal. Pupils are equal, round, and reactive to light. Right eye exhibits no discharge. Left eye exhibits no discharge. No scleral icterus. Neck: Normal range of motion. Neck supple. No thyromegaly present. Cardiovascular: Normal rate, regular rhythm, normal heart sounds and intact distal pulses. Exam reveals no gallop. No murmur heard. Pulmonary/Chest: Effort normal and breath sounds normal. No respiratory distress. She has no wheezes. She has no rales. She exhibits no tenderness. Abdominal: Soft. Bowel sounds are normal. She exhibits no mass. There is no tenderness. There is norebound and no guarding. Musculoskeletal: Normal range of motion. She exhibits no edema or tenderness. Lymphadenopathy: She has no cervical adenopathy. Neurological: She is alert and oriented to person, place, and time. Skin: Skin is warm and dry. She is not diaphoretic. Patient Active Problem List Diagnosis ??? Hypercholesterolemia ??? OA (osteoarthritis)-s/p RIGHT TOTAL HIP REPLACEMENT 02/16/14. ??? Hypernatremia ??? Hip joint replacement by other means ??? Other physical therapy Past Medical History: Diagnosis Date ??? Arthritis ??? Hyperlipidemia ??? Motion sickness See time date stamps in the EMR for other pertient history components reviewed as part of today's encounter. [facility] Documentation Medication Compliance: Compliant all the time Understanding of Current Medications: Good Medication Compliance Barriers: None or N/A Self-Management Tools: N/A, no chronic conditions Self-Management Ability: Good Willingness to Adopt Healthy Behaviors: Good Potential Barriers to completing treatment plans today: No significant barriers [facility] Flowsheet was completed/reviewed as part of today's visit. Educated patient regarding the diagnosis, medication/treatment, goals, self- management tools and instructions based on their care plan. They verbalized understanding of the education given on the After Visit Summary [AVS] for today's visit. A copy of the AVS was provided either in writing and/or via Expert. A new medicine was prescribed during this office visit. I did discuss the reason for prescribing this new medication. I also informed of possible likely side effects, but also encouraged them to readthe medication insert that will accompany their prescription and encouraged them to discuss any questions about the insert with their pharmacist. I instructed them to call if having side effects or possible allergic reaction after taking. I also discussed the risk of stopping the medication or deviating from prescribing instructions. Dosing instructions are present on the AVS and they are aware. I inquired of any questions and answered accordingly. * Shelby Ernandez CCMA - 10/13/2017 8:00 AM EDT Venipuncture in the right antecubital vein with 21 gauge needle, length 1 1/2 inch. documented in this encounter Plan of Treatment Upcoming Encounters Date Type Department Care Team (Late st Contact Info) Description 05/16/2024 9:30 AM EST Office Visit [facility] [address] [place] [address] Gilda Francis PA [address] [place] [address] documented as of this encounter Procedures Procedure Name Priority Date/Time Associated Diagnosis Comments HCV ANTIBODY SCREEN W/ REFLEX Routine 10/13/2017 8:26 AM EDT Need for hepatitis C screening test CBC WITH DIFF Routine 10/13/2017 8:26 AM EDT Screening for deficiency anemia LIPID SCREEN Routine 10/13/2017 8:26 AM EDT Hypercholesterolem ia COMPREHENSIVE METABOLIC PANEL Routine 10/13/2017 8:26 AM EDT Hypernatremia documented in this encounter Results * HEPATITIS C ANTIBODY - SCREENING (10/13/2017 8:26 AM EDT) Hep C Ab Non-Reactiv e Non-Reacti ve 10/13/2017 6:45 PM EDT [facility] Blood VENOUS BLOOD / Unknown Venipuncture / Unknown 10/13/2017 8:26 AM EDT 10/13/2017 8:26 AM EDT us Mann Irene MD HEMATOLOGY ORDERABLES Final Re sult [facility] [employer] [facility] [address] [facility] , [place] [address] * (ABNORMAL) LIPID SCREEN (10/13/2017 8:26 AM EDT) Cholesterol 164 <=200 mg/dL 10/13/2017 5:16 PM EDT [facility] Comment: < 200 ?Desirable 200 - 239 ? Borderline High >= 240 ?High Triglyceride 75 <=150 mg/dL 10/13/2017 5:16 PM EDT [facility] Comment: < 150 ? Normal 150 - 199 ?Borderline High 200 - 499 ?High ??>= 500 ? Very High HDL 47 >=40 mg/dL 10/13/2017 5:16 PM EDT [facility] Comment: ??> 60 ?Optimal 40 - 60 ?Acceptable ?? < 40 ?Low LDL Calculated 102(H) <=100 mg/dL 10/13/2017 5:16 PM EDT [facility] Comment: < 100 ?Optimal 100 - 129 ? Near or above optimal 130 - 159 ? Borderline High 160 - 189 ? High >= 190 ?Very High Non-HDL-C Calculated 117 <=129 mg/dL 10/13/2017 5:16 PM EDT [facility] Comment: <130 ?Desirable 130-159 Above Desirable 160-189 Borderline High 190-219 High >= 220 ??Very High Blood Venipuncture / Unknown 10/13/2017 8:26 AM EDT 10/13/2017 8:26 AM EDT us Mann Irene MD CHEMISTRY ORDERABLES Final Res ult [facility] [address] [facility] , [address] [place] [id number] * (ABNORMAL) COMPREHENSIVE METABOLIC PANEL (10/13/2017 8:26 AM EDT) Sodium 141 136 - 145 mmol/L 10/13/2017 5:16 PM EDT [facility] Potassium 4.2 3.5 - 5.0 mmol/L 10/13/2017 5:16 PM EDT [facility] Chloride 103 98 - 107 mmol/L 10/13/2017 5:16 PM EDT [facility] Total CO2 27 22 - 29 mmol/L 10/13/2017 5:16 PM EDT [facility] Anion Gap 11 7 - 16 mmol/L 10/13/2017 5:16 PM EDT [facility] Calcium 9.2 8.8 - 10.2 mg/dL 10/13/2017 5:16 PM EDT [facility] Glucose Lvl 97 82 - 100 mg/dL 10/13/2017 5:16 PM EDT [facility] BUN 12 8 - 23 mg/dL 10/13/2017 5:16 PM EDT [facility] Creatinine 0.68 0.51 - 1.30 mg/dL 10/13/2017 5:16 PM EDT [facility] Albumin 4.2 3.2 - 4.6 gm/dL 10/13/2017 5:16 PM EDT [facility] Total Protein 7.7 6.4 - 8.3 gm/dL 10/13/2017 5:16 PM EDT [facility] Bili Total 0.4 0.1 - 1.3 mg/dL 10/13/2017 5:16 PM EDT [facility] ALT 13 <=41 IU/L 10/13/2017 5:16 PM EDT [facility] AST 12 <=40 IU/L 10/13/2017 5:16 PM EDT [facility] Alk Phos 105(H) 35 - 104 IU/L 10/13/2017 5:16 PM EDT [facility] GFR Afr Am 102 mL/min/1.7 3 m2 10/13/2017 5:[address] [facility] GFR Non Afr Am 89 mL/min/1.7 3 m2 10/13/2017 5:[address] [facility] Comment: GFR Afr Am and GFR Non Afr Am calculated using CKD-EPI equation. ?? GFR Category ?GFR(mL/min/1.73 m??) ? Kidney Function G1 ?>=90 ?Normal or high G2 ?60-89 ? Mildly decreased G3a ? 45-59 ? Mildly to moderately decreased G3b ? 30-44 ? Moderately to severely decreased G4 ?15-29 ? Severely decreased G5 ?<15 ? Kidney Failure Blood Venipuncture / Unknown 10/13/2017 8:26 AM EDT 10/13/2017 8:26 AM EDT us Mann Irene MD CHEMISTRY ORDERABLES Final Res ult [facility] 1 [facility] , [address] [place] [id number] [facility] [address] [place] [address] * (ABNORMAL) CBC WITH DIFF (10/13/2017 8:26 AM EDT) WBC 10.2 3.7 - 10.3 x10(3)/mc L 10/13/2017 3:34 PM EDT [facility] RBC 4.75 3.90 - 5.20 x10(6)/mc L 10/13/2017 3:34 PM EDT [facility] Hgb 13.3 11.2 - 15.7 g/dL 10/13/2017 3:34 PM EDT [facility] Hct 44.2 34.0 - 45.0 % 10/13/2017 3:34 PM EDT [facility] MCV 93.1 79.0 - 98.0 fL 10/13/2017 3:34 PM EDT [facility] MCH 28.0 26.0 - 32.0 pg 10/13/2017 3:34 PM EDT [facility] MCHC 30.1(L) 30.7 - 35.5 g/dL 10/13/2017 3:34 PM EDT [facility] RDW 14.5 <=14.9 % 10/13/2017 3:34 PM EDT [facility] Platelet 434(H) 155 - 369 x10(3)/mc L 10/13/2017 3:34 PM EDT [facility] MPV 9.7 8.8 - 12.5 fL 10/13/2017 3:34 PM EDT [facility] Neut Percent 45.0 % 10/13/2017 3:34 PM EDT [facility] Comment:Neutrophils equals s egs plus bands Imm Gran% 0.4 % 10/13/2017 3:34 PM EDT [facility] Comment:Automated count of m etamyelocytes, myelocytes and promyelocytes Lymph Percent 38.2 % 10/13/2017 3:34 PM EDT [facility] Mobile Percent 8.2 % 10/13/2017 3:34 PM EDT [facility] Eos Percent 7.2 % 10/13/2017 3:34 PM EDT [facility] Baso Percent 1.0 % 10/13/2017 3:34 PM EDT [facility] Neut # 4.6 1.6 - 6.1 x10(3)/mc L 10/13/2017 3:34 PM EDT [facility] Comment:Neutrophils equals s egs plus bands IMMGRAN# 0.0 0.0 - 0.1 x10(3)/mc L 10/13/2017 3:34 PM EDT [facility] Comment:Automated count of m etamyelocytes, myelocytes and promyelocytes Lymph # 3.9 1.2 - 3.9 x10(3)/mc L 10/13/2017 3:34 PM EDT [facility] Mobile # 0.8 0.3 - 0.9 x10(3)/ L 10/13/2017 3:34 PM EDT [facility] Eos# 0.7(H) 0.0 - 0.5 x10(3)/ L 10/13/2017 3:34 PM EDT [facility] Baso # 0.1 0.0 - 0.1 x10(3)/ L 10/13/2017 3:34 PM EDT [facility] Blood Venipuncture / Unknown 10/13/2017 8:26 AM EDT 10/13/2017 8:26 AM EDT us Mann Irene MD HEMATOLOGY ORDERABLES Final Re sult [facility] [address] [facility] , [place] [address] documented in this encounter Visit Diagnoses Diagnosis Hypercholesterolemia- Primary Pure hypercholesterolemia Hypernatremia Hyperosmolality and/or hypernatremia Need for hepatitis C screening test Special screening examination for other specified viral diseases Screening for deficiency anemia Screening for other and unspecified deficiency anemia Claudication (HCC) Peripheral vascular disease, unspecified Acute bronchitis, unspecified organism documented in this encounter Additional Health Concerns Assessment Noted Time A fall risk assessment has been complete d for the patient 10/12/2017 1:51 PM EDT documented as of this encounter Care Teams Asset Management Coordinator Relationship Specialty Start Date End Date Mann Irene MD [address] [place], [place] [id number] PCP - General Internal Medicine 08/23/12 07/13/22 documented as of this encounter
--- OUTSIDE RECORDS SUMMARY | 2024-03-27 15:06 | XMS_ITS | Encounter Summary ---
Author Organization [place] [address] Care Team Providers Care Hardening Machine Operator Helper Name Role Phone Mann Irene MD Primary Care Provider [phone] Reason for Referral * Consultation (Routine) - Closed Specialty Diagnoses / Procedures Referred By Ramona mcdaniel Referred To Contact Diagnoses Chronic pain of left knee Mann Irene MD [place] [facility] [address] Phone: tel: fax: Bruce Oh MD [address] [place] [address] Phone: tel: fax: Referral ID Status Reason Start Date Expiration Date Visits Re quested Visits Authorized [id number] Closed 09/30/2016 09/30/2017 99 99 Reason for Visit * Reason Onset Date Comments Referral 09/30/2016 Encounter Details Date Type Department Care Team (Late st Contact Info) Description 09/30/2016 Telephone [facility] [place] [address] Mann Irene MD [place] [facility] [address] Referral Social History Tobacco Use Types [...] Telephone Encounter - Jo Saucedo RMA - 09/30/2016 3:15 PM EDT Order entered * Telephone Encounter - Keisha Gan - 09/30/2016 3:07 PM EDT Pt needs a referral entered for [facility]. She is there right now for an injection in her left knee. She is there for knee pain. Can this be entered lucian? They will not see her without the referral. Thank you documented in this encounter Plan of Treatment Upcoming Encounters Date Type Department Care Team (Late st Contact Info) Description 05/16/2024 9:30 AM EST Office Visit [facility] [address] [place] [address] Gilda Francis PA [address] [place] [address] Scheduled Referrals Name Type Priority Associated Diagnoses Order Schedule AMB REFERRAL TO ORTHOPEDIC SURGERY Outpatient Referral Routine Chronic pain of left knee Ordered: 09/30/2016 documented as of this encounter Visit Diagnoses Diagnosis Chronic pain of left knee- Primary Pain in joint, lower leg documented in this encounter Additional Health Concerns Assessment Noted Time A fall risk assessment has been complete d for the patient 03/02/2015 2:44 PM EDT PHQ-2 Depression Total Score: 1 09/04/19 16 11:00 AM EDT documented as of this encounter Care Teams Hardening Machine Operator Helper Relationship Specialty Start Date End Date Mann Irene MD [address] [place] [address] PCP - General Internal Medicine 08/23/12 07/13/22 documented as of this encounter
--- OUTSIDE RECORDS SUMMARY | 2024-03-27 15:06 | XMS_ITS | Encounter Summary ---
Author Organization [place] [address] Care Team Providers Care Sawmilling Operator Name Role Phone Mann Irene MD Primary Care Provider [phone] Reason for Referral * Vascular Imaging (Routine) - Closed Specialty Diagnoses / Procedures Referred By Contac t Referred To Contact Radiology Diagnoses Claudication (HCC) Procedures [facility] LOWER EXTREMITY ARTERIAL PHYSIOLOGICAL Mann Irene MD [address] [place] [address] Phone: tel: fax: Referral ID Status Reason Start Date Expiration Date Visits Re quested Visits Authorized [id number] Closed 12/11/2017 12/12/2019 1 1 Reason for Visit * Vascular Imaging (Routine) - Closed Specialty Diagnoses / Procedures Referred By Contac t Referred To Contact Radiology Diagnoses Claudication (HCC) Procedures [facility] LOWER EXTREMITY ARTERIAL PHYSIOLOGICAL Mann [place] [address] [place] [address] Phone: tel: fax: Referral ID Status Reason Start Date Expiration Date Visits Re quested Visits Authorized [id number] Closed 12/11/2017 12/12/2019 1 1 Encounter Details Date Type Department Care Team (Latest Contact Info) Description 12/11/2017 9:22 AM EDT - 12/11/2017 11:59 PM EDT Hospital Encounter [facility] [address] [place], [place] [address] Mann Irene MD [address] [place] [id number] Claudication (HCC) [...] Rhea Ernandez RN documented in this encounter Medications at Time of Discharge aspirin 81 mg Oral Tablet, Delayed Release (E.C.) Take 81 mg by mouth daily. 9 meloxicam (MOBIC) 15 mg Oral TabletIndications:Os teoarthritis, unspecified osteoarthritis type, unspecified site Take 1 Tab by mouth daily for 360 days. 90 Tab 3 09/11/2017 9 documented as of this encounter Discharge Disposition Disposition Code Departure Means Destination Home or Self Care documented in this encounter Plan of Treatment Upcoming Encounters Date Type Department Care Team (Late st Contact Info) Description 05/16/2024 9:30 AM EST Office Visit [facility] [address] [place] [address] Gilda Francis PA [address] [place] [address] documented as of this encounter Procedures Procedure Name Priority Date/Time Associated Diagnosis Comments [facility] LOWER EXTREMITY ARTERIAL PHYSIOLOGICAL Routine 12/11/2017 10:51 AM EDT Claudication (HCC) documented in this encounter Results * [facility] LOWER EXTREMITY ARTERIAL PHYSIOLOGICAL (12/11/2017 10:51 AM EDT) Anatomical Region Laterality Modality Vascular, Leg Vascular Imaging 12/11/2017 9:25 AM EDT Impressions 12/11/2017 11:03 AM EDT ??CONCLUSIONS ??Normal hemodynamics of both lower extremities at rest. PVR's and Doppler waveforms are within normal limits bilaterally. No ?evidence of arterial insufficiency in the bilateral lower extremities. ?Digits are above the healing index bilaterally. ??Carlos Hansen MD Narrative Procedure Note Carlos Hansen MD - 12/11/2017 IMPRESSION CONCLUSIONS Normal hemodynamics of both lower extremities at rest. PVR's and Dopplerwaveforms are within normal limits bilaterally. No evidence of arterial insufficiency in the bilateral lower extremities. Digits are above the healing index bilaterally. Carlos Hansen MD Mann Irene MD IMG VASCULAR ORDERABLES Final Result documented in this encounter Visit Diagnoses Diagnosis Claudication (HCC) Peripheral vascular disease, unspecified documented in this encounter Additional Health Concerns Assessment Noted Time A fall risk assessment has been complete d for the patient 10/12/2017 1:51 PM EDT documented as of this encounter Care Teams Sawmilling Operator Relationship Specialty Start Date End Date Mann Irene MD [address] [place], [place] [address] PCP - General Internal Medicine 08/23/12 07/13/22 documented as of this encounter
--- OUTSIDE RECORDS SUMMARY | 2024-03-27 15:06 | XMS_ITS | Encounter Summary ---
Author [place] [address] Care Team Providers Care Alberene Stone Setter Name Role Phone Mann Irene MD Primary Care Provider [phone] Reason for Visit * Reason Onset Date Comments Medication Problem 12/01/2016 Encounter Details Date Type Department Care Team (Late st Contact Info) Description 12/01/2016 Telephone [facility] [place] [address] [address] Mann Irene MD [place] [address] Medication Problem Social History Tobacco Use Types Packs/Day Years [...] 1 Tab by mouth daily. 90 Tab 1 12/01/2016 07/19/19 18 diclofenac (VOLTAREN) 75 mg Oral Tablet, Delayed Release (E.C.)Indications:Osteoar thritis, unspecified osteoarthritis type, unspecified site Take 1 Tab by mouth 2 times daily (with meals). 180 Tab 1 12/01/2016 07/19/19 18 documented in this encounter Miscellaneous Notes * Telephone Encounter - Brittany Slaughter CCMA - 12/01/2016 4:56 PM EDT Done * Telephone Encounter - Cheyanne Donovan - 12/01/2016 4:49 PM EDT Voltaren and Lipitor are not going thru to her Mail Order pharmacy. She would like to call them in documented in this encounter Plan of Treatment Upcoming Encounters Date Type Department Care Team (Late st Contact Info) Description 05/16/2024 9:30 AM EST [facility] [address] [facility] [address] Gilda Francis PA [address] [facility] [place] [address] documented as of this encounter Visit Diagnoses Diagnosis Osteoarthritis, unspecified osteoarthritis type, unspecified site Pure hypercholesterolemia documented in this encounter Discontinued Medications Medication Sig Discontinue Reason Start Date End Da te diclofenac (VOLTAREN) 75 mg Oral Tablet, Delayed Release (E.C.)Indications:Osteoarthrit is, unspecified osteoarthritis type, unspecified site Take 1 Tab by mouth 2 times daily (with meals). Reorder 11/28/2016 12/01/2016 atorvastatin (LIPITOR) 10 mg Oral TabletIndications:Pure hypercholesterolemia Take 1 Tab by mouth daily. Reorder 11/28/2016 12/01/2016 documented as of this encounter Additional Health Concerns Assessment Noted Time A fall risk assessment has been complete d for the patient 10/01/2016 4:48 PM EDT documented as of this encounter Care Teams Alberene Stone Setter Relationship Specialty Start Date End Date Mann Irene MD [address] [place] [id number] PCP - General Internal Medicine 08/23/12 07/13/22 documented as of this encounter
--- OUTSIDE RECORDS SUMMARY | 2024-03-27 15:06 | XMS_ITS | Encounter Summary ---
Author Organization [place] [address] Care Team Providers Care Electrical Subcontractor Name Role Phone Mann Ierne MD Primary Care Provider [phone] Reason for Visit * Reason Comments Medication Refill Encounter Details Date Type Department Care Team (Late st Contact Info) Description 03/02/2018 Refill [facility] [address] [address] Mann Irene MD [...] TABLET BY MOUTH EVERY DAY 30 Tab 03/02/2018 07/15/2018 documented in this encounter Plan of Treatment Upcoming Encounters Date Type Department Care Team (Late st Contact Info) Description 05/16/2024 9:30 AM EST Office Visit [facility] [address] [place] [address] Gilda Francis PA [address] [place] [address] documented as of this encounter Visit Diagnoses Diagnosis Seasonal allergic rhinitis due to pollen documented in this encounter Discontinued Medications Medication Sig Discontinue Reason Start Date End Da te ALLERGY RELIEF D-24 10-240 mg Oral Tablet Sustained Release 24 hrIndications:Seasonal allergic rhinitis due to pollen TAKE 1 TABLET BY MOUTH EVERY DAY Reorder 11/17/2017 03/02/2018 documented as of this encounter Additional Health Concerns Assessment Noted Time A fall risk assessment has been complete d for the patient 10/12/2017 1:51 PM EDT documented as of this encounter Care Teams Electrical Subcontractor Relationship Specialty Start Date End Date Mann Irene MD [address] [place] [phone] PCP - General Internal Medicine 08/23/12 07/13/22 documented as of this encounter
--- OUTSIDE RECORDS SUMMARY | 2024-03-27 15:06 | XMS_ITS | Encounter Summary ---
Author Organization [place] [address] Care Team Providers Care Chief Inspector Name Role Phone Mann Irene MD Primary Care Provider [phone] Reason for Visit * Reason Comments Medication Refill Encounter Details Date Type Department Care Team (Late st Contact Info) Description 08/31/2017 Refill [facility] [address] [address] Mann Irene MD [...] Author No 02/20/2014 3:41 PM EDT Rhea Enrandez RN documented as of this encounter Mental Status * Because of a physical, mental or emotional condition, does this person have serious difficulty concentrating, remembering or making decisions? Answer Entry Date Author No 02/20/2014 3:41 PM EDT Rhea Ernandez RN documented in this encounter Ordered Prescriptions Prescription Sig Dispense Quantity Refills Last Filled Start Date End Date ALLERGY RELIEF D-24 10-240 mg Oral Tablet Sustained Release 24 hrIndications:Seaso nal allergic rhinitis due to pollen TAKE 1 TAB BY MOUTH DAILY. 30 Tab 2 08/31/2017 09/29/2017 documented in this encounter Plan of Treatment Upcoming Encounters Date Type Department Care Team (Late st Contact Info) Description 05/16/2024 9:30 AM EST Office Visit [facility] [address] [place] [address] Gilda Francis PA [address] [place] [address] documented as of this encounter Visit Diagnoses Diagnosis Seasonal allergic rhinitis due to pollen documented in this encounter Discontinued Medications Medication Sig Discontinue Reason Start Date End Da te CLARITIN-D 24 HOUR 10-240 mg Oral Tablet Sustained Release 24 hrIndications:Seasonal allergic rhinitis due to pollen TAKE 1 TAB BY MOUTH DAILY. Reorder 04/27/2017 08/31/2017 documented as of this encounter Additional Health Concerns Assessment Noted Time A fall risk assessment has been complete d for the patient 10/01/2016 4:48 PM EDT documented as of this encounter Care Teams Chief Inspector Relationship Specialty Start Date End Date Mann Irene MD [address] [place] [phone] PCP - General Internal Medicine 08/23/12 07/13/22 documented as of this encounter
--- OUTSIDE RECORDS SUMMARY | 2024-03-27 15:06 | XMS_ITS | Encounter Summary ---
Author Organization [place] [address] Care Team Providers Care Direct Support Staff Member Name Role Phone Mann Irene MD Primary Care Provider [phone] Reason for Visit * Reason Comments Medication Refill Encounter Details Date Type Department Care Team (Late st Contact Info) Description 07/12/2018 Refill [facility] [address] [place] [address] [address] Mann Irene MD [...] Elida Pavon CCMA documented in this encounter Ordered Prescriptions Prescription Sig Dispense Quantity Refills Last Filled Start Date End Date atorvastatin (LIPITOR) 10 mg Oral TabletIndications:Pure hypercholesterolemia TAKE 1 TABLET EVERY DAY 90 Tab 1 9 04/04/20 19 documented in this encounter Plan of Treatment Upcoming Encounters Date Type Department Care Team (Late st Contact Info) Description 05/16/2024 9:30 AM EST Office Visit [facility] [address] [place] [id number] Gilda Francis PA [address] [place] [address] documented as of this encounter Visit Diagnoses Diagnosis Pure hypercholesterolemia documented in this encounter Discontinued Medications Medication Sig Discontinue Reason Start Date End Da te atorvastatin (LIPITOR) 10 mg Oral TabletIndications:Pure hypercholesterolemia TAKE 1 TABLET EVERY DAY Reorder 01/25/2018 07/12/2018 documented as of this encounter Additional Health Concerns Assessment Noted Time A fall risk assessment has been complete d for the patient 10/12/2017 1:51 PM EDT documented as of this encounter Care Teams Direct Support Staff Member Relationship Specialty Start Date End Date Mann Irene MD [address] [facility] [place] [address] PCP - General Internal Medicine 08/23/12 07/13/22 documented as of this encounter
--- OUTSIDE RECORDS SUMMARY | 2024-03-27 15:06 | XMS_ITS | Encounter Summary ---
Author Organization [facility] [place] [address] Care Team Providers Care Private Advisor Name Role Phone Mann Irene MD Primary Care Provider [phone] Encounter Details Date Type Department Care Team (Latest Contact Info) Description 12/15/2018 Travel Social History Tobacco Use Types Packs/Day [...] EST Office Visit [facility] [address] [place] [address] Gilda Francis PA [address] [place] [address] documented as of this encounter Visit Diagnoses Not on filedocumented in this encounter Additional Health Concerns Assessment Noted Time A fall risk assessment has been complete d for the patient 12/06/2018 7:30 AM EDT documented as of this encounter Care Teams Private Advisor Relationship Specialty Start Date End Date Mann Irene MD [address] [place] [address] PCP - General Internal Medicine 08/23/12 07/13/22 documented as of this encounter
--- OUTSIDE RECORDS SUMMARY | 2024-03-27 15:06 | XMS_ITS | Encounter Summary ---
Author Organization [place] [address] Care Team Providers Care Intake Manager Name Role Phone Mann Irene MD Primary Care Provider [phone] Reason for Referral * Mammography (Routine) - Closed Specialty Diagnoses / Procedures Referred By Contmillicent t Referred To Contact Radiology Diagnoses Encounter for screening for malignant neoplasm of breast Procedures MM MOBILE MAMMO DIGITAL SCREEN W Mann Caba MD [address] [place] [address] [place] [address] Phone: tel: fax: [facility] Mammogram [address] [address] Phone: tel: fax: Referral ID Status Reason Start Date Expiration Date Visits Re quested Visits Authorized [id number] Closed 09/13/2018 09/13/2020 1 1 Reason for Visit * Mammography (Routine) - Closed Specialty Diagnoses / Procedures Referred By Contac t Referred To Contact Radiology Diagnoses Encounter for screening for malignant neoplasm of breast Procedures MM MOBILE MAMMO DIGITAL SCREEN W Mann Caba MD [address] [place] [address] [place] [address] Phone: tel: fax: Boni [facility] M[facility] [employer] [place] Phone: tel: fax: Referral ID Status Reason Start Date Expiration Date Visits Re quested Visits Authorized [id number] Closed 09/13/2018 09/13/2020 1 1 Encounter Details Date Type Department Care Team (Latest Contact Info) Description 10/15/2018 8:34 AM EDT - 10/15/2018 11:59 PM EDT Hospital Encounter Boni [facility] [employer] [place] [phone] Mann Irene MD [facility] [place] [address] Encounter for screening for malignant neoplasm of [...] of Assessment Author No 03/05/2018 2:39 PM Elida Beckman CCMA * Does this person have difficulty [...] Elida Pavon CCMA documented in this encounter Medications at Time of Discharge acetaminophen (TYLENOL) 500 mg Oral Tablet Take 2 Tabs by mouth every 8 hours as needed. 60 Tab 12/30/2018 01/27/2019 aspirin 81 mg Oral Tablet, Delayed Release (E.C.) Take 81 mg by mouth daily. 12/31/2018 traMADol (ULTRAM) 50 mg Oral Tablet Take 1-2 Tabs by mouth every 6 hours as needed for Pain. May use for moderate 1-5 pain 60 Tab 12/30/2018 01/27/2019 documented as of this encounter Discharge Disposition Disposition Code Departure Means Destination Home or Self Care documented in this encounter Plan of Treatment Upcoming Encounters Date Type Department Care Team (Late st Contact Info) Description 05/16/2024 9:30 AM EST Office Visit [facility] [address] [place] [address] Gilda Francis PA [address] [place], [place] [id number] documented as of this encounter Procedures Procedure Name Priority Date/Time Associated Diagnosis Comments HB SCREENING MAMMOGRAPHY BILATERAL INCLUDING CAD Routine 10/15/2018 8:41 AM EDT Encounter for screening for malignant neoplasm of breast documented in this encounter Results * MM MOBILE MAMMO DIGITAL SCREEN W CAD ZEB (10/15/2018 8:41 AM EDT) Anatomical Region Laterality Modality Breast Mammography 10/18/2018 7:37 AM EDT Impressions 10/18/2018 7:37 AM EDT Negative ??([id number]) ~ RECOMMENDATION: Routine screening mammogram in 1 [...] for screening mammogram for malignant neoplasm of [id number] ~ MM MOBILE MAMMO DIGITAL SCREEN W [...] for screening mammogram for malignant neoplasm of [id number] ~ MM MOBILE MAMMO DIGITAL SCREEN W CAD ZEB Bilateral CC and MLO view(s) were taken. There are scattered fibroglandular densities. Prior study comparison: Compared with prior studies the most recentbeing 09/14/17, 10/07/13 No mammographic evidence of malignancy. ~ IMPRESSION: Negative ([id number]) ~ RECOMMENDATION: Routine screening mammogram in 1 [...] encounter Visit Diagnoses Diagnosis Encounter for screening for malignant neoplasm of breast documented in this encounter Additional Health Concerns Assessment Noted Time A fall risk assessment has been complete d for the patient 10/12/2017 1:51 PM EDT documented as of this encounter Care Teams Intake Manager Relationship Specialty Start Date End Date Mann Irene MD [address] [place] [id number] PCP - General Internal Medicine 08/23/12 07/13/22 documented as of this encounter
--- OUTSIDE RECORDS SUMMARY | 2024-03-27 15:06 | XMS_ITS | Encounter Summary ---
Author Organization [place] [address] Care Team Providers Care Marine Railway Operator Name Role Phone Mann Irene MD Primary Care Provider Reason for Visit * Reason Comments Medication Refill Encounter Details Date Type Department Care Team (Late st Contact Info) Description 11/17/2017 Refill [facility] [place] [address] [address] Mann [place] [address] [place] [address] Medication Refill Social History Tobacco Use [...] TABLET BY MOUTH EVERY DAY 30 Tab 11/17/2017 03/02/2018 documented in this encounter Plan of Treatment Upcoming Encounters Date Type Department Care Team (Late st Contact Info) Description 05/16/2024 9:30 AM EST Office Visit [facility] [address] [place] [address] Gilda Francis PA [address] [place] [address] documented as of this encounter Visit Diagnoses Diagnosis Seasonal allergic rhinitis due to pollen documented in this encounter Discontinued Medications Medication Sig Discontinue Reason Start Date End Da te ALLERGY RELIEF D-24 10-240 mg Oral Tablet Sustained Release 24 hrIndications:Seasonal allergic rhinitis due to pollen TAKE 1 TAB BY MOUTH DAILY. Reorder 09/29/2017 11/17/2017 documented as of this encounter Additional Health Concerns Assessment Noted Time A fall risk assessment has been complete d for the patient 10/12/2017 1:51 PM EDT documented as of this encounter Care Teams Marine Railway Operator Relationship Specialty Start Date End Date Mann Irene MD [address] [place] [phone] PCP - General Internal Medicine 08/23/12 07/13/22 documented as of this encounter
--- OUTSIDE RECORDS SUMMARY | 2024-03-27 15:06 | XMS_ITS | Encounter Summary ---
Author Organization [place] [address] Care Team Providers Care Director Global Name Role Phone Mann Irene MD Primary Care Provider [phone] Reason for Visit * Reason Comments Cough sneezing , having a runny nose, and congestion. afebrile Encounter Details Date Type Department Care Team (Late st Contact Info) Description 10/01/2016 4:40 PM EDT Office Visit [facility] [place] [facility] [place] [address] [address] Mark Rosas MD [place] [place] [address] Sinusitis, unspecified chronicity, unspecified location (Primary Dx) Social History Tobacco Use Types [...] Sign Reading Time Taken Comments Blood Pressure 132/70 10/01/2016 4:47 PM EDT Pulse 72 10/01/2016 4:47 PM EDT Temperature 36.8 ??C (98.2 ??F) 10/01/2016 4:47 PM ED T Respiratory Rate 18 10/01/2016 4:47 PM EDT Oxygen Saturation 92% 10/01/2016 4:47 PM EDT Inhaled Oxygen Concentration - - Weight 84.4 kg (186 lb) 10/01/2016 4:47 PM EDT Height 162.6 cm (5' 4 ) 10/01/2016 4:47 PM EDT Body Mass Index 31.93 10/01/2016 4:47 PM EDT documented in this encounter Functional [...] Date azithromycin (ZITHROMAX) 250 mg Oral TabletIndications: Sinusitis, unspecified chronicity, unspecified location Take 2 tablets (500 mg) on Day 1, followed by 1 tablet (250 mg) once daily on Days 2 through 5. 6 Tab 10/01/2016 7 documented in this encounter Progress Notes * Mark Rosas MD - 10/01/2016 4:40 PM EDT Diagnoses and all orders for this visit: 1. Sinusitis, unspecified chronicity, unspecified location Comments: cont antihistamine Orders: - azithromycin (ZITHROMAX) 250 mg Oral Tablet; Take 2 tablets (500 mg) on Day 1, followed by 1 tablet (250 mg) once daily on Days 2 through 5. Dispense: 6 Tab; Refill: 0 - betamethasone acetate-betamethasone sodium phosphate (CELESTONE) injection 6 mg; Inject 1 mL intothe muscle once. - methylPREDNISolone acetate (DEPO-MEDROL) injection 80 mg; Inject 1 mL into the muscle once. Subjective Chief Complaint Patient presents with ??? Cough sneezing , having a runny nose, and congestion. afebrile No fever. Has a productive cough. Symptoms for 2 days. Review of Systems denies; fever, chills, nausea, emesis, diarrhea, chest pain, dark or bloody stools, no skin lesions, neuro symptoms. Has post tussive urinary incontinence Objective Visit Vitals ??? BP 132/70 (BP Location: Left arm, Patient Position: Sitting) ??? Pulse 72 ??? Temp 98.2 ??F (36.8 ??C) (Oral) ??? Resp 18 ??? Ht 5' 4 (1.626 m) ??? Wt 186 lb (84.4 kg) ??? SpO2 92% ??? BMI 31.93 kg/m2 Physical Exam NAD PERRL EOMI Nasal congestion CTA B RR no murmur ABD soft nontender non distended No C/C/E Non focal neuro exam [facility] Documentation Medication Compliance - compliant most of the time Understanding of current medications - good Self-Management Tools - none Self-Management Ability - good Willingness to adopt healthy behaviors - good Patient Barriers: no significant Existing barriers discussed and addressed in orders and /or referrals. Educated patient regarding the diagnosis, medication/treatment, goals, self- management tools and instructions based on their care plan. They verbalized understanding of the education given on the After Visit Summary [AVS] for today's visit. A copy of the AVS was provided either in writing and/or via baixing.com. A new medicine was prescribed during this [...] inquired of any questions and answered accordingly. documented in this encounter Miscellaneous Notes * Patient Instructions - Lucia Avalos, MOTORBOAT MECHANIC INBOARD/OUTBOARD - 10/01/2016 4:40 PM EDT You may be contacted by mail or e-mail to participate in a patient satisfaction survey regarding your office visit today. We value your opinion and depend on your feedback to make improvements and provide you with the best possible experience while receiving high quality medical treatment. Your time in completing this survey is greatly appreciated. 1. Count calories: Can look up on [employer]. Goal 1500 calories per day. 2. No fruit juice or regular POP. 3. Watch night time snacking. Good alternative is pop corn 4. Split meals when you eat out. 5. Smaller portions and fewer servings, leave food on your plate. 6. Aerobic exercise at least 3x per week. 7. Watch anything white like breads, pasta, and potatoes. (startches) Above tools can decrease current intake by 500 calories per day, which can provide good weight loss. Dietary information can be very confusing, and the research sometimes makes us positively vertiginous. The bulk of the evidence, though, supports the Mediterranean diet as the best at reducing the risk of heart disease and cancer, and at improving health. So that diet is the one which I recommend routinely to my patients. Other general recommendations from the wealth of nutritional research published currently: 1. Eat fewer white carbohydrates 2. Add low-fat milk products 3. Include whole grains 4. Eat fruits and vegetables 5. Add good oils Behavioral Modifications that can be helpful ?? Avoid eating everything on your plate. Though we should be appreciative that we have enough to eat, eating compulsively only leads to taking in many more calories than we intend. Leave one bite onyour plate to start paying attention to when your stomach is full. ?? Avoid distraction. Be mindful when you eat. Keep the television off. Don't eat at the movies. Listen to your body. ?? Eat only at meal time. Most of us are not disciplined enough to limit calories while eating snacks between meals. ?? Think of those hunger pangs as a good thing. If you experience hunger, you will start burning fat! But you must eat several times a day to keep your metabolic rate up, or your body will think you're starving and start lowering your metabolic rate to conserve fat for the famine! If you have diabetes or hypoglycemia, be careful and watch your blood sugars. Diet-Food Guide Pyramid, USDA For a 2,000-calorie diet, you need the amounts below from each food group. To find the amounts thatare right for you, go to MyPyramid.gov. GRAINS ?? Eat at least 6 oz. of whole-grain cereals, breads, crackers, rice or pasta every day. ?? 1 oz. is about 1 slice of breads, about 1 cup of cereal, or 1/2 cup of cooked rice, cereal or pasta. VEGETABLES ?? Eat 2 1/2 cups every day. ?? Eat more dark green veggies like broccoli, spinach and other dark leafy greens. ?? Eat more orange vegetables like carrots and sweet potatoes. ?? Eat dry beans and peas (friedman beans, kidney beans and lentils). FRUITS ?? Eat 2 cups every day. ?? Eat a variety of fruit. ?? Choose fresh, frozen, canned or dried fruit. ?? Go easy on fruit juices. MILK ?? Get 3 cups every day (for kids aged 2 to 8, drink 2 cups). ?? Go low-fat or fat-free when you choose milk, yogurt and other milk products. ?? If you do not or cannot drink milk, choose lactose-free products or other calcium sources such as fortified foods and beverages. MEAT AND BEANS ?? Eat 5 1/2 oz. every day. ?? Choose low-fat or lean meats and poultry. ?? Bake it, broil it or grill it. ?? Vary your protein routine. Choose more fish, beans, peas, nuts and seeds. FATS, SUGARS AND SALT (SODIUM) ?? Make most of your fat sources from fish, nuts and vegetable oils. ?? Limit solid fats like butter, margarine, shortening, and lard, as well as foods that contain these. ?? Check the nutrition facts label to keep saturated fats, trans fats, and sodium low. ?? Choose food and beverages low in added sugars. Added sugars contribute calories with few, if any, nutrients. Find your balance between food and physical activity. Information courtesy of [employer] and [employer] Document Released: 05/16/2008 Document Re-Released: 08/03/2008 ExitCare?? Patient Information ??2009 [email or web address] DASH Eating Plan DASH stands for Dietary Approaches to Stop Hypertension. The DASH eating plan is a healthy eatingplan that has been shown to reduce high blood pressure (hypertension). Additional health benefits may include reducing the risk of type 2 diabetes mellitus, heart disease, and stroke. The DASH eatingplan may also help with weight loss. WHAT DO I NEED TO KNOW ABOUT THE DASH EATING PLAN? For the DASH eating plan, you will follow these general guidelines: Choose foods with a percent daily value for sodium of less than 5% (as listed on the food label). Use salt-free seasonings or herbs instead of table salt or sea salt. Check with your health care provider or pharmacist before using salt substitutes. Eat lower-sodium products, often labeled as lower sodium or no salt added. Eat fresh foods. Eat more vegetables, fruits, and low-fat dairy products. Choose whole grains. Look for the word whole as the first word in the ingredient list. Choose fish and skinless chicken or turkey more often than red meat. Limit fish, poultry, and meat to 6 oz (170 g) each day. Limit sweets, desserts, sugars, and sugary drinks. Choose heart-healthy fats. Limit cheese to 1 oz (28 g) per day. Eat more home-cooked food and less restaurant, buffet, and fast food. Limit fried foods. Cook foods using methods other than frying. Limit canned vegetables. If you do use them, rinse them well to decrease the sodium. When eating at a restaurant, ask that your food be prepared with less salt, or no salt if possible. WHAT FOODS CAN I EAT? Seek help from a dietitian for individual calorie needs. Grains Whole grain or whole wheat bread. Brown rice. Whole grain or whole wheat pasta. Quinoa, bulgur, andwhole grain cereals. Low-sodium cereals. Virgil or whole wheat flour tortillas. Whole grain cornbread. Whole grain crackers. Low-sodium crackers. Vegetables Fresh or frozen vegetables (raw, steamed, roasted, or grilled). Low-sodium or reduced-sodium tomatoand vegetable juices. Low-sodium or reduced-sodium tomato sauce and paste. Low-sodium or reduced-sodium canned vegetables. Fruits All fresh, canned (in natural juice), or frozen fruits. Meat and Other Protein Products Ground beef (85% or leaner), grass-fed beef, or beef trimmed of fat. Skinless chicken or turkey. Ground chicken or turkey. Pork trimmed of fat. All fish and seafood. Eggs. Dried beans, peas, or lentils. Unsalted nuts and seeds. Unsalted canned beans. Dairy Low-fat dairy products, such as skim or 1% milk, 2% or reduced-fat cheeses, low- fat ricotta or cottage cheese, or plain low-fat yogurt. Low-sodium or reduced- sodium cheeses. Fats and Oils Tub margarines without trans fats. Light or reduced-fat mayonnaise and salad dressings (reduced sodium). Avocado. Safflower, olive, or canola oils. Natural peanut or almond butter. Other Unsalted popcorn and pretzels. The items listed above may not be a complete list of recommended foods or beverages. Contact your dietitian for more options. WHAT FOODS ARE NOT RECOMMENDED? Grains White bread. White pasta. White rice. Refined cornbread. Bagels and croissants. Crackers that contain trans fat. Vegetables Creamed or fried vegetables. Vegetables in a cheese sauce. Regular canned vegetables. Regular canned tomato sauce and paste. Regular tomato and vegetable juices. Fruits Dried fruits. Canned fruit in light or heavy syrup. Fruit juice. Meat and Other Protein Products Fatty cuts of meat. Ribs, chicken wings, gloria, sausage, bologna, salami, chitterlings, fatback, hot dogs, bratwurst, and packaged luncheon meats. Salted nuts and seeds. Canned beans with salt. Dairy Whole or 2% milk, cream, [id number]-apir, and cream cheese. Whole-fat or sweetened yogurt. Full-fat cheeses or blue cheese. Nondairy creamers and whipped toppings. Processed cheese, cheese spreads, or cheese curds. Condiments Onion and garlic salt, seasoned salt, table salt, and sea salt. Canned and packaged gravies. Worcestershire sauce. Tartar sauce. Barbecue sauce. Teriyaki sauce. Soy sauce, including reduced sodium. Steak sauce. Fish sauce. Oyster sauce. Cocktail sauce. Horseradish. Ketchup and mustard. Meat flavorings and tenderizers. Bouillon cubes. Hot sauce. Tabasco sauce. Marinades. Taco seasonings. Relishes. Fats and Oils Butter, stick margarine, lard, shortening, ghee, and gloria fat. Coconut, palm kernel, or palm oils.Regular salad dressings. Other Pickles and olives. Salted popcorn and pretzels. The items listed above may not be a complete list of foods and beverages to avoid. Contact your dietitian for more information. WHERE CAN I FIND MORE INFORMATION? National Heart, Lung, and Blood [place]: www.nhlbi.nih.gov/health/health-topics/topics/dash/ Document Released: 04/15/2012 Document Revised: 05/02/2014 Document Reviewed: 03/01/2014 ExitCare?? Patient Information ??2015 [employer]. This information is not intended to replace advice given to you by your health care provider. Make sure you discuss any questions you have with your health care provider. documented in this encounter Plan of Treatment Upcoming Encounters Date Type Department Care Team (Late st Contact Info) Description 05/16/2024 9:30 AM EST Office Visit [facility] [address] [place] [id number] Gilda Francis PA [address] [place] [address] documented as of this encounter Visit Diagnoses Diagnosis Sinusitis, unspecified chronicity, unspecified location- Primary documented in this encounter Administered Medications Inactive Administered Medications - up to 1 most recent administrations Medication Order MAR Action Action Date Dose Rate Site betamethasone acetate-betamethasone sodium phosphate (CELESTONE) injection 6 mg 6 mg, Intramuscular, ONCE, 1 dose, On Thu10/01/16 at 1715, Do not refrigerate, Dx: 1. Sinusitis, unspecified chronicity, unspecified locationIndications:Sinus itis, unspecified chronicity, unspecified location Given 10/01/2016 5:12 PM EDT 6 mg Left upper gluteus methylPREDNISolone acetate (DEPO-MEDROL) injection 80 mg 80 mg, Intramuscular, ONCE, 1 dose, On Thu10/01/16 at 1715, Dx: 1. Sinusitis, unspecified chronicity, unspecified locationIndications:Sinus itis, unspecified chronicity, unspecified location Given 10/01/2016 5:12 PM EDT 80 mg Left upper gluteus documented in this encounter Additional Health Concerns Assessment Noted Time A fall risk assessment has been complete d for the patient 10/01/2016 4:48 PM EDT documented as of this encounter Care Teams Director Global Relationship Specialty Start Date End Date Mann Irene MD [address] [place] [id number] PCP - General Internal Medicine 08/23/12 07/13/22 documented as of this encounter
--- OUTSIDE RECORDS SUMMARY | 2024-03-27 15:06 | XMS_ITS | Encounter Summary ---
Author Organization [place] [address] Care Team Providers Care Tuft Machine Operator Name Role Phone Mann Irene MD Primary Care Provider [phone] Reason for Visit * Reason Comments Medication Refill Encounter Details Date Type Department Care Team (Late st Contact Info) Description 07/15/2018 Refill [facility] [place] [address] [place] [address] [place] [address] Medication Refill Social History Tobacco Use [...] TABLET BY MOUTH EVERY DAY 30 Tab 07/16/2018 09/14/2018 documented in this encounter Plan of Treatment Upcoming Encounters Date Type Department Care Team (Late st Contact Info) Description 05/16/2024 9:30 AM EST Office Visit [facility] [address] [place] [address] Gilda Francis PA [address] [place] [address] documented as of this encounter Visit Diagnoses Diagnosis Seasonal allergic rhinitis due to pollen documented in this encounter Discontinued Medications Medication Sig Discontinue Reason Start Date End Da te ALLERGY RELIEF D-24HR 10-240 mg Oral Tablet Sustained Release 24 hrIndications:Seasonal allergic rhinitis due to pollen TAKE 1 TABLET BY MOUTH EVERY DAY Reorder 03/02/2018 07/15/2018 documented as of this encounter Additional Health Concerns Assessment Noted Time A fall risk assessment has been complete d for the patient 10/12/2017 1:51 PM EDT documented as of this encounter Care Teams Tuft Machine Operator Relationship Specialty Start Date End Date Mann Irene MD [address] [place] [phone] PCP - General Internal Medicine 08/23/12 07/13/22 documented as of this encounter
--- OUTSIDE RECORDS SUMMARY | 2024-03-27 15:06 | XMS_ITS | Encounter Summary ---
Author Organization [place] [address] Care Team Providers Care Cone Marker Name Role Phone Mann Irene MD Primary Care Provider [phone] Reason for Visit * Reason Comments Medication Refill Encounter Details Date Type Department Care Team (Late st Contact Info) Description 01/06/2017 Refill [facility] [place] [address] Mann Irene MD [...] Refills Last Filled Start Date End Date CLARITIN-D 24 HOUR 10-240 mg Oral Tablet Sustained Release 24 hrIndications:Seaso nal allergic rhinitis due to pollen TAKE 1 TAB BY MOUTH DAILY. 30 Tab 2 01/06/2017 04/25/2017 documented in this encounter Plan of Treatment Upcoming Encounters Date Type Department Care Team (Late st Contact Info) Description 05/16/2024 9:30 AM EST Office Visit [facility] [address] [place] [address] Gilda Francis PA [address] [place] [address] documented as of this encounter Visit Diagnoses Diagnosis Seasonal allergic rhinitis due to pollen documented in this encounter Discontinued Medications Medication Sig Discontinue Reason Start Date End Da te loratadine-pseudoephedrin e (LORATADINE-PSEUDOEPHEDRI NE) 10-240 mg Oral Tablet Sustained Release 24 hrIndications:Seasonal allergic rhinitis due to pollen Take 1 Tab by mouth daily. Reorder 10/01/2016 01/06/2017 documented as of this encounter Additional Health Concerns Assessment Noted Time A fall risk assessment has been complete d for the patient 10/01/2016 4:48 PM EDT documented as of this encounter Care Teams Cone Marker Relationship Specialty Start Date End Date Mann Irene MD [address] [place] [phone] PCP - General Internal Medicine 08/23/12 07/13/22 documented as of this encounter
--- OUTSIDE RECORDS SUMMARY | 2024-03-27 15:06 | XMS_ITS | Encounter Summary ---
Author Organization [place] [address] Care Team Providers Care Electrical Assembly Technician Name Role Phone Mann Irene MD Primary Care Provider [phone] Reason for Visit * Reason Comments Medication Refill Encounter Details Date Type Department Care Team (Late st Contact Info) Description 01/23/2018 Refill [facility] [place] [address] [address] Mann Irene MD [...] 1 TABLET EVERY DAY 90 Tab 1 8 07/13/19 19 documented in this encounter Plan of Treatment Upcoming Encounters Date Type Department Care Team (Late st Contact Info) Description 05/16/2024 9:30 AM EST Office Visit [facility] [address] [place] [address] Gilda Francis PA [address] [place] [address] documented as of this encounter Visit Diagnoses Diagnosis Pure hypercholesterolemia documented in this encounter Discontinued Medications Medication Sig Discontinue Reason Start Date End Da te atorvastatin (LIPITOR) 10 mg Oral TabletIndications:Pure hypercholesterolemia TAKE 1 TABLET EVERY DAY Reorder 07/20/2017 01/23/2018 documented as of this encounter Additional Health Concerns Assessment Noted Time A fall risk assessment has been complete d for the patient 10/12/2017 1:51 PM EDT documented as of this encounter Care Teams Electrical Assembly Technician Relationship Specialty Start Date End Date Mann Irene MD [place] [facility] [address] PCP - General Internal Medicine 08/23/12 07/13/22 documented as of this encounter
--- OUTSIDE RECORDS SUMMARY | 2024-03-27 15:06 | XMS_ITS | Encounter Summary ---
Author Organization [place] [address] Care Team Providers Care Blood Bank Technician Name Role Phone Mann Irene MD Primary Care Provider [phone] Reason for Visit * Reason Onset Date Comments Medication Refill 10/01/2016 Encounter Details Date Type Department Care Team (Late st Contact Info) Description 10/01/2016 Refill [facility] [place] [address] Mann Irene [place] [address] [address] [place] [address] Medication Refill Social History Tobacco Use [...] of Assessment Author No 02/20/2014 3:41 PM EDRhea Peguero RN documented as of this encounter Mental Status * Because of a physical, mental or emotional condition, does this person have serious difficulty concentrating, remembering or making decisions? Answer Entry Date Author No 02/20/2014 3:41 PM Rhea Sainz RN documented in this encounter Ordered Prescriptions Prescription Sig Dispense Quantity Refills Last Filled Start Date End Date loratadine-pseudoep hedrine (LORATADINE-PSEUDOE PHEDRINE) 10-240 mg Oral Tablet Sustained Release 24 hrIndications:Seaso nal allergic rhinitis due to pollen Take 1 Tab by mouth daily. 30 Tab 2 10/01/2016 01/06/2017 documented in this encounter Plan of Treatment Upcoming Encounters Date Type Department Care Team (Late st Contact Info) Description 05/16/2024 9:30 AM EST Office Visit [facility] [address] [place] [address] Gilda Francis PA [address] [place] [address] documented as of this encounter Visit Diagnoses Diagnosis Seasonal allergic rhinitis due to pollen documented in this encounter Discontinued Medications Medication Sig Discontinue Reason Start Date End Da te loratadine-pseudoephedrin e (LORATADINE-PSEUDOEPHEDRI NE) 10-240 mg Oral Tablet Sustained Release 24 hrIndications:Allergic rhinitis, seasonal Take 1 Tab by mouth daily. Reorder 01/08/2016 10/01/2016 documented as of this encounter Additional Health Concerns Assessment Noted Time A fall risk assessment has been complete d for the patient 10/01/2016 4:48 PM EDT documented as of this encounter Care Teams Blood Bank Technician Relationship Specialty Start Date End Date Mann Irene MD [address] [place] [id number] PCP - General Internal Medicine 08/23/12 07/13/22 documented as of this encounter
--- OUTSIDE RECORDS SUMMARY | 2024-03-27 15:06 | XMS_ITS | Encounter Summary ---
Author Organization [place] [address] Care Team Providers Care Human Resources Hr Generalist Name Role Phone Mann Irene MD Primary Care Provider [phone] Reason for Visit * Reason Comments Emesis x2 days Diarrhea Dizziness x2-3 days, pt states when she sits up she gets dizzy Encounter Details Date Type Department Care Team (Latest Contact Info) Description 03/05/2018 2:40 PM EDT Office Visit [facility] [address] [place] [address] Ramandeep Noriega, SYNTHETIC RESIN OPERATOR [address] [place], [place] [id number] Viral gastroenteritis (Primary Dx); Dizziness; Hypernatremia Social History Tobacco Use Types Packs/Day Years [...] Sign Reading Time Taken Comments Blood Pressure 134/82 03/05/2018 2:36 PM EDT Pulse 85 03/05/2018 2:36 PM EDT Temperature 36.6 ??C (97.8 ??F) 03/05/2018 2:36 PM ED T Respiratory Rate 18 03/05/2018 2:36 PM EDT Oxygen Saturation 98% 03/05/2018 2:36 PM EDT Inhaled Oxygen Concentration - - Weight 80.2 kg (176 lb 12.8 oz) 03/05/2018 2:36 PM EDT Height 162.6 cm (5' 4 ) 03/05/2018 2:36 PM EDT Body Mass Index 30.35 03/05/2018 2:36 PM EDT documented in this encounter Functional [...] Refills Last Filled Start Date End Date promethazine (PHENERGAN) 12.5 mg Oral TabletIndications:Vir al gastroenteritis Take 1 Tab by mouth every 6 hours as needed for Nausea for up to 10 days. 30 Tab 03/05/2018 8 documented in this encounter Progress Notes * Ramandeep Noriega APRN - 03/05/2018 2:40 PM EDT Assessment Diagnoses and all orders for this visit: Viral gastroenteritis Comments: improving since onset - able to keep fluids down. recommend low dose phenergan as needed. clear liquids and advance as tolerated. f/u prn. Orders: - promethazine (PHENERGAN) 12.5 mg Oral Tablet; Take 1 Tab by mouth every 6 hours as needed for Nausea for up to 10 days. Dispense: 30 Tab; Refill: 0 Dizziness Comments: likely related to viral illness. normal neuro exam. vitals stable. no orthostatic sx. recommend rest, hydration. Orders: - CBC WITH DIFF; Future - COMPREHENSIVE METABOLIC PANEL; Future Hypernatremia - COMPREHENSIVE METABOLIC PANEL; Future Progress Note: Vitals: 03/05/18 1436 BP: 134/82 Pulse: 85 Resp: 18 Temp: 97.8 ??F (36.6 ??C) TempSrc: Temporal SpO2: 98% Weight: 176 lb 12.8 oz (80.2 kg) Height: 5' 4 (1.626 m) Chief Complaint Patient presents with ??? Emesis x2 days ??? Diarrhea ??? Dizziness x2-3 days, pt states when she sits up she gets dizzy HPI: hasn't felt well since Thursday - woke up feeling dizzy, nauseated then vomiting and diarrhea. No fever. No abdominal pain. Able to keep some fluids down but no food. Denies urinary sx. Denies abdominal pain. Dizziness only with movement and position changes. Denies orthostatic sx - dizzy is more like room spinning. No cp, sob, palpitations or edema. No recent atb use or traveling. No knownill contacts but Was at a conference on Thursday. Review of Systems Constitutional: Positive for chills and fatigue. Negative for fever. HENT: Negative for congestion. Respiratory: Negative for cough, chest tightness, shortness of breath and wheezing. Cardiovascular: Negative for chest pain, palpitations and leg swelling. Gastrointestinal: Positive for diarrhea, nausea and vomiting. Negative for abdominal pain. Genitourinary: Negative for decreased urine volume, dysuria, frequency and urgency. Musculoskeletal: Negative for myalgias. Skin: Negative for rash and wound. Allergic/Immunologic: Negative. Neurological: Positive for dizziness and light-headedness. Negative for headaches. Hematological: Negative for adenopathy. Does not bruise/bleed easily. Physical Exam Constitutional: She is oriented to person, place, and time. She appears well- developed and well-nourished. HENT: Head: Normocephalic and atraumatic. Right Ear: Tympanic membrane normal. Left Ear: Tympanic membrane normal. Nose: Nose normal. Mouth/Throat: Uvula is midline, oropharynx is clear and moist and mucous membranes are normal. Eyes: Pupils are equal, round, and reactive to light. Neck: Normal range of motion. Neck supple. No thyromegaly present. Cardiovascular: Normal rate, regular rhythm and normal heart sounds. Exam reveals no gallop and no friction rub. No murmur heard. Pulmonary/Chest: Effort normal and breath sounds normal. She has no wheezes. She has no rales. Abdominal: Soft. Bowel sounds are increased. There is no tenderness. There is no rebound and no guarding. Musculoskeletal: She exhibits no edema. Lymphadenopathy: She has no cervical adenopathy. Neurological: She is alert and oriented to person, place, and time. No cranial nerve deficit. Skin: Skin is warm and dry. No rash noted. No erythema. No pallor. Psychiatric: She has a normal mood and affect. Her behavior is normal. Judgment and thought contentnormal. Patient Active Problem List Diagnosis ??? Hypercholesterolemia [...] Bautista MD; Location: ED MAIN OR; Service: Allergies Allergen Reactions ??? Celecoxib Rash Outpatient Encounter Prescriptions as of 03/05/2018 Medication Sig Dispense Refill ??? aspirin 81 mg Oral Tablet, Delayed Release (E.C.) Take 81 mg by mouth daily. ??? atorvastatin (LIPITOR) 10 mg Oral Tablet TAKE 1 TABLET EVERY DAY 90 Tab 1 ??? meloxicam (MOBIC) 15 mg Oral Tablet Take 1 Tab by mouth daily for 360 days. 90 Tab 3 ??? ALLERGY RELIEF D-24HR 10-240 mg Oral Tablet Sustained Release 24 hr TAKE 1 TABLET BY MOUTH EVERY DAY (Patient not taking: Reported on 03/05/2018) 30 Tab 0 ??? promethazine (PHENERGAN) 12.5 mg Oral Tablet Take 1 Tab by mouth every 6 hours as needed for Nausea for up to 10 days. 30 Tab 0 No facility-administered encounter medications on file as of 03/05/2018. [facility] Documentation Medication Compliance: Compliant all the time Understanding of Current Medications: Fair Medication Compliance Barriers: None or N/A Self-Management Tools: N/A, no chronic conditions Self-Management Ability: Fair Willingness to Adopt Healthy Behaviors: Fair Potential Barriers to completing treatment plans today: No significant barriers [facility] Flowsheet was completed/reviewed as part of today's visit. Educated patient regarding the diagnosis, medication/treatment, goals, self- management tools and instructions based on their care plan. They verbalized understanding of the education given on the After Visit Summary [AVS] for today's visit. A copy of the AVS was provided either in writing and/or via [email or web address]. A new medicine was prescribed during this [...] of any questions and answered accordingly. * Jill Beck - 03/05/2018 2:40 PM EDT Venipuncture in the right antecubital vein with 21 gauge needle, length 1 1/2 inch. documented in this encounter Miscellaneous Notes * Patient Instructions - Ramandeep Noriega APRN - 03/05/2018 2:59 PM EDT Images from the original note were not included. For sleep - start with melatonin. Take 5mg about 1 hour before bed, plan for 8 hours of sleep. May increase 10mg at night if not effective. Patient Education Food Choices to Help Relieve Diarrhea, Adult When you have diarrhea, the foods you eat and your eating habits are very important. Choosing the right foods and drinks can help: ?? Relieve diarrhea. ?? Replace lost fluids and nutrients. ?? Prevent dehydration. What general guidelines should I follow? Relieving diarrhea ?? Choose foods with less than 2 g or .07 oz. of fiber per serving. ?? Limit fats to less than 8 tsp (38 g or 1.34 oz.) a day. ?? Avoid the following: ?? Foods and beverages sweetened with high-fructose corn syrup, honey, or sugar alcohols such as xylitol, sorbitol, and mannitol. ?? Foods that contain a lot of fat or sugar. ?? Fried, greasy, or spicy foods. ?? High-fiber grains, breads, and cereals. ?? Raw fruits and vegetables. ?? Eat foods that are rich in probiotics. These foods include dairy products such as yogurt and fermented milk products. They help increase healthy bacteria in the stomach and intestines (gastrointestinal tract, or GI tract). ?? If you have lactose intolerance, avoid dairy products. These may make your diarrhea worse. ?? Take medicine to help stop diarrhea (antidiarrheal medicine) only as told by your health care provider. Replacing nutrients ?? Eat small meals or snacks every 3-4 hours. ?? Eat bland foods, such as white rice, toast, or baked potato, until your diarrhea starts to get better. Gradually reintroduce nutrient-rich foods as tolerated or as told by your health care provider. This includes: ?? Well-cooked protein foods. ?? Peeled, seeded, and soft-cooked fruits and vegetables. ?? Low-fat dairy products. ?? Take vitamin and mineral supplements as told by your health care provider. Preventing dehydration ?? Start by sipping water or a special solution to prevent dehydration (oral rehydration solution, ORS). Urine that is clear or pale yellow means that you are getting enough fluid. ?? Try to drink at least 8-10 cups of fluid each day to help replace lost fluids. ?? You may add other liquids in addition to water, such as clear juice or decaffeinated sports drinks, as tolerated or as told by your health care provider. ?? Avoid drinks with caffeine, such as coffee, tea, or soft drinks. ?? Avoid alcohol. What foods are recommended? The items listed may not be a complete list. Talk with your health care provider about what dietarychoices are best for you. Grains White rice. White, [place]ian, or minerva breads (fresh or toasted), including plain rolls, buns, or bagels. White pasta. Saltine, soda, or say crackers. Pretzels. Low-fiber cereal. Cooked cereals made with water (such as cornmeal, farina, or cream cereals). Plain muffins. Matzo. [place] toast. Zwieback. Vegetables Potatoes (without the skin). Most well-cooked and canned vegetables without skins or seeds. Tender lettuce. Fruits Apple sauce. Fruits canned in juice. Cooked apricots, cherries, grapefruit, peaches, pears, or plums. Fresh bananas and cantaloupe. Meats and other protein foods Baked or boiled chicken. Eggs. Tofu. Fish. Seafood. Smooth nut butters. Ground or well-cooked tender beef, ham, veal, san, pork, or poultry. Dairy Plain yogurt, kefir, and unsweetened liquid yogurt. Lactose-free milk, buttermilk, skim milk, or soy milk. Low-fat or nonfat hard cheese. Beverages Water. Low-calorie sports drinks. Fruit juices without pulp. Strained tomato and vegetable juices. Decaffeinated teas. Sugar-free beverages not sweetened with sugar alcohols. Oral rehydration solutions, if approved by your health care provider. Seasoning and other foods Bouillon, broth, or soups made from recommended foods. What foods are not recommended? The items listed may not be a complete list. Talk with your health care provider about what dietarychoices are best for you. Grains Whole grain, whole wheat, bran, or rye breads, rolls, pastas, and crackers. Wild or brown rice. Whole grain or bran cereals. Barley. Oats and oatmeal. [place] tortillas or taco shells. Granola. Popcorn. Vegetables Raw vegetables. Fried vegetables. Cabbage, broccoli, [place] sprouts, artichokes, baked beans, beet greens, corn, kale, legumes, peas, sweet potatoes, and yams. Potato skins. Cooked spinach and cabbage. Fruits Dried fruit, including raisins and dates. Raw fruits. Stewed or dried prunes. Canned fruits with syrup. Meat and other protein foods Fried or fatty meats. Deli meats. [place] nut butters. Nuts and seeds. Beans and lentils. [place]. Hotdogs. Sausage. Dairy High-fat cheeses. Whole milk, chocolate milk, and beverages made with milk, such as milk shakes. Wueu-ysh-esyn. Cream. sour cream. Ice cream. Beverages Caffeinated beverages (such as coffee, tea, soda, or energy drinks). Alcoholic beverages. Fruit juices with pulp. Prune juice. Soft drinks sweetened with high- fructose corn syrup or sugar alcohols. High-calorie sports drinks. Fats and oils Butter. Cream sauces. Margarine. Salad oils. Plain salad dressings. Olives. Avocados. Mayonnaise. Sweets and desserts Sweet rolls, doughnuts, and sweet breads. Sugar-free desserts sweetened with sugar alcohols such asxylitol and sorbitol. Seasoning and other foods Honey. Hot sauce. [place] powder. Gravy. Cream-based or milk-based soups. Pancakes and waffles. Summary ?? When you have diarrhea, the foods you eat and your eating habits are very important. ?? Make sure you get at least 8-10 cups of fluid each day, or enough to keep your urine clear or pale yellow. ?? Eat bland foods and gradually reintroduce healthy, nutrient-rich foods as tolerated, or as told by your health care provider. ?? Avoid high-fiber, fried, greasy, or spicy foods. This information is not intended to replace advice given to you by your health care provider. Make sure you discuss any questions you have with your health care provider. Document Released: 07/17/2004 Document Revised: 04/24/2017 Document Reviewed: 04/24/2017 [employer] Interactive Patient Education ?? 2018 [employer] documented in this encounter Plan of Treatment Upcoming Encounters Date Type Department Care Team (Late st Contact Info) Description 05/16/2024 9:30 AM EST Office Visit [facility] [address] [place] [address] Gilda Francis PA [address] [place] [address] documented as of this encounter Procedures Procedure Name Priority Date/Time Associated Diagnosis Comments CBC WITH DIFF Routine 03/05/2018 3:17 PM EDT Dizziness COMPREHENSIVE METABOLIC PANEL Routine 03/05/2018 3:17 PM EDT Dizziness Hypernatremia documented in this encounter Results * COMPREHENSIVE METABOLIC PANEL (03/05/2018 3:17 PM EDT) Sodium 145 136 - 145 mmol/L 03/05/2018 8:11 PM EDT [facility] Potassium 4.1 3.5 - 5.0 mmol/L 03/05/2018 8:11 PM EDT [facility] Chloride 105 98 - 107 mmol/L 03/05/2018 8:11 PM EDT [facility] Total CO2 26 22 - 29 mmol/L 03/05/2018 8:11 PM EDT [facility] Anion Gap 14 7 - 16 mmol/L 03/05/2018 8:11 PM EDT [facility] Calcium 9.6 8.8 - 10.2 mg/dL 03/05/2018 8:11 PM EDT [facility] Glucose Lvl 98 82 - 100 mg/dL 03/05/2018 8:11 PM EDT [facility] BUN 11 8 - 23 mg/dL 03/05/2018 8:11 PM EDT [facility] Creatinine 0.65 0.51 - 1.30 mg/dL 03/05/2018 8:11 PM EDT [facility] Albumin 4.4 3.2 - 4.6 gm/dL 03/05/2018 8:11 PM EDT [facility] Total Protein 8.0 6.4 - 8.3 gm/dL 03/05/2018 8:11 PM EDT [facility] Bili Total 0.4 0.1 - 1.3 mg/dL 03/05/2018 8:11 PM EDT [facility] ALT 12 <=41 IU/L 03/05/2018 8:11 PM EDT [facility] AST 16 <=40 IU/L 03/05/2018 8:11 PM EDT [facility] Alk Phos 103 35 - 104 IU/L 03/05/2018 8:11 PM EDT [facility] GFR Afr Am 104 >=60 mL/min/1.7 3 m2 03/05/2018 8:11 PM EDT [facility] GFR Non Afr Am 90 >=60 mL/min/1.7 3 m2 03/05/2018 8:11 PM EDT [facility] Comment: This estimated GFR was [...] VENOUS BLOOD / Unknown Venipuncture / Unknown 03/05/2018 3:17 PM EDT 03/05/2018 3:17 PM EDT Ramandeep Noriega APRN CHEMISTRY ORDERABLES Final Result [facility] [place] [facility] [address] [facility], [place] [address] [facility] [address] [place] [id number] * (ABNORMAL) CBC WITH DIFF (03/05/2018 3:17 PM EDT) WBC 10.1 3.7 - 10.3 x10(3)/mcL 03/05/2018 9:51 PM EDT [facility] RBC 5.06 3.90 - 5.20 x10(6)/mcL 03/05/2018 9:51 PM EDT [facility] Hgb 14.2 11.2 - 15.7 g/dL 03/05/2018 9:51 PM EDT [facility] Hct 45.2(H) 34.0 - 45.0 % 03/05/2018 9:51 PM EDT [facility] MCV 89.3 79.0 - 98.0 fL 03/05/2018 9:51 PM EDT [facility] MCH 28.1 26.0 - 32.0 pg 03/05/2018 9:51 PM EDT [facility] MCHC 31.4 30.7 - 35.5 g/dL 03/05/2018 9:51 PM EDT [facility] RDW 14.7 <=14.9 % 03/05/2018 9:51 PM EDT [facility] Platelet 397(H) 155 - 369 x10(3)/mcL 03/05/2018 9:51 PM EDT [facility] MPV 10.2 8.8 - 12.5 fL 03/05/2018 9:51 PM EDT [facility] Neut Percent 51.5 % 03/05/2018 9:51 PM EDT [facility] Comment:Neutrophils equals s egs plus bands Imm Gran% 0.4 % 03/05/2018 9:51 PM EDT [facility] Comment:Automated count of m etamyelocytes, myelocytes and promyelocytes. Lymph Percent 38.7 % 03/05/2018 9:51 PM EDT [facility] [place] Percent 6.4 % 03/05/2018 9:51 PM EDT [facility] Eos Percent 2.4 % 03/05/2018 9:51 PM EDT [facility] Baso Percent 0.6 % 03/05/2018 9:51 PM EDT [facility] Neut # 5.2 1.6 - 6.1 x10(3)/[facility] 03/05/2018 9:51 PM EDT [facility] Comment:Neutrophils equals s egs plus bands IMMGRAN# 0.0 0.0 - 0.1 x10(3)/[facility] 03/05/2018 9:51 PM EDT [facility] Comment:Automated count of m etamyelocytes, myelocytes and promyelocytes. An absolute IG <0.1 is reported as 0.0. Lymph # 3.9 1.2 - 3.9 x10(3)/[facility] 03/05/2018 9:51 PM EDT [facility] [place] # 0.7 0.3 - 0.9 x10(3)/[facility] 03/05/2018 9:51 PM EDT [facility] Eos# 0.2 0.0 - 0.5 x10(3)/[facility] 03/05/2018 9:51 PM EDT [facility] Baso # 0.1 0.0 - 0.1 x10(3)/[facility] 03/05/2018 9:51 PM EDT [facility] Blood Venipuncture / Unknown 03/05/2018 3:17 PM EDT 03/05/2018 3:17 PM EDT Ramandeep Noriega SYNTHETIC RESIN OPERATOR HEMATOLOGY ORDERABLES Final Result [facility], [address] , [place] [address] documented in this encounter Visit Diagnoses Diagnosis Viral gastroenteritis- Primary Intestinal infection due to other organism, not elsewhere classified Dizziness Dizziness and giddiness Hypernatremia Hyperosmolality and/or hypernatremia documented in this encounter Additional Health Concerns Assessment Noted Time A fall risk assessment has been complete d for the patient 10/12/2017 1:51 PM EDT documented as of this encounter Care Teams Human Resources Hr Generalist Relationship Specialty Start Date End Date Mann [place] [address] [place] [address] PCP - General Internal Medicine 08/23/12 07/13/22 documented as of this encounter
--- OUTSIDE RECORDS SUMMARY | 2024-03-27 15:06 | XMS_ITS | Encounter Summary ---
Author Organization [place] [address] Care Team Providers Care Ladder Operator Name Role Phone Mann Irene MD Primary Care Provider [phone] Reason for Visit * Reason Comments Medication Refill Encounter Details Date Type Department Care Team (Late st Contact Info) Description 11/19/[address] [facility] [address] [address] [place] [address] [place] [address] Medication Refill Social History Tobacco Use [...] TABLET BY MOUTH EVERY DAY 30 Tab 11/19/2018 12/25/2018 documented in this encounter Plan of Treatment Upcoming Encounters Date Type Department Care Team (Late st Contact Info) Description 05/16/2024 9:30 AM EST Office Visit [facility] [address] [place] [id number] Gilda Francis PA [address] [place] [address] documented as of this encounter Visit Diagnoses Diagnosis Seasonal allergic rhinitis due to pollen documented in this encounter Discontinued Medications Medication Sig Discontinue Reason Start Date End Da te ALLERGY RELIEF D-24HR 10-240 mg Oral Tablet Sustained Release 24 hrIndications:Seasonal allergic rhinitis due to pollen TAKE 1 TABLET BY MOUTH EVERY DAY Reorder 10/18/2018 11/19/2018 documented as of this encounter Additional Health Concerns Assessment Noted Time A fall risk assessment has been complete d for the patient 10/12/2017 1:51 PM EDT documented as of this encounter Care Teams Ladder Operator Relationship Specialty Start Date End Date Mann Irene MD [address] [place] [address] PCP - General Internal Medicine 08/23/12 07/13/22 documented as of this encounter
--- OUTSIDE RECORDS SUMMARY | 2024-03-27 15:06 | XMS_ITS | Encounter Summary ---
Author Organization [place] [address] Care Team Providers Care Parking Patroller Name Role Phone Mann Irene MD Primary Care Provider [phone] Reason for Visit * Reason Comments Annual Exam medicare Encounter Details Date Type Department Care Team (Latest Contact Info) Description 12/06/2018 9:40 AM EDT Office Visit [facility] [place] [facility] [place] [address] [address] [address] [place] [address] [place] [address] Annual physical exam (Primary Dx); Claudication (HCC); Osteoarthritis, unspecified osteoarthritis type, unspecified site; Pre-op examination Social History Tobacco Use Types Packs/Day Years [...] Sign Reading Time Taken Comments Blood Pressure 132/80 12/06/2018 9:07 AM EDT Pulse 76 12/06/2018 9:07 AM EDT Temperature 36.7 ??C (98 ??F) 12/06/2018 9:07 AM EDT Respiratory Rate 18 12/06/2018 9:07 AM EDT Oxygen Saturation 96% 12/06/2018 9:07 AM EDT Inhaled Oxygen Concentration - - Weight 79.4 kg (175 lb) 12/06/2018 9:07 AM EDT Height 162.6 cm (5' 4 ) 12/06/2018 9:07 AM EDT Body Mass Index 30.04 12/06/2018 9:07 AM EDT documented in this encounter Functional [...] (VOLTAREN) 75 mg Oral Tablet, Delayed Release (E.C.)Indications:Os teoarthritis, unspecified osteoarthritis type, unspecified site Take 1 Tab by mouth 2 times daily (with meals) for 360 days. 180 Tab 3 12/06/2018 9 diclofenac (VOLTAREN) 75 mg Oral Tablet, Delayed Release (E.C.) Take 1 Tab by mouth 2 times daily (with meals) for 360 days. 60 Tab 12/06/2018 9 documented in this encounter Progress Notes * Mann Irene MD - 12/06/2018 11:23 AM EDTAssociated Problem(s): Pre-op examination (Resolved 02/21/2019) Revised Faustin Cardiac Risk Index (Circulation 1999; 100: 7256-2200) 1. High risk surgical procedures (intraperitoneal, intrathoracic, [...] heart block. Cleared for Hip Replacement Surgery. * Mann Irene MD - 12/06/2018 9:40 AM EDT Assessment Diagnoses and all orders for this visit: Annual physical exam Claudication (HCC) (Chronic) Osteoarthritis, unspecified osteoarthritis type, unspecified site - diclofenac (VOLTAREN) 75 mg Oral Tablet, Delayed Release (E.C.); Take 1 Tab by mouth 2 times daily (with meals) for 360 days. Dispense: 180 Tab; Refill: 3 Pre-op examination Assessment & Plan: Revised Faustin Cardiac Risk Index (Circulation 1999; 100: 8670-5059) 1. High risk surgical procedures (intraperitoneal, intrathoracic, [...] heart block. Cleared for Hip Replacement Surgery. Progress Note: Vitals: 12/06/18 0907 BP: 132/80 Pulse: 76 Resp: 18 Temp: 98 ??F (36.7 ??C) TempSrc: Temporal SpO2: 96% Weight: 175 lb (79.4 kg) Height: 5' 4 (1.626 m) SUBJECTIVE: Chief Complaint Patient presents with ??? Annual Exam medicare HPI: Medicare Wellness Assessment Flowsheet Version: Ms. Hylton is a 73 y.o. female here for an Subsequent Annual [...] assistance/device and with a gait steady?: Yes (In office Assessment Only): Is the patient able to get out of the exam chair and ambulate steadilyin less than 30 second?: Yes Functional Status Assessment Functional Level: self care Functional Mobility Assessment: independent w/o assist device Assessment of transportation needs: still drives most of the time Functional Activities of Daily Living Limitations: No issues Activities of Daily Living Assistive Device Assessment Assistive Devices: None Osteoporosis Screening Assessment Has the patient had a DEXA scan in the past 2 years?: (!) No Abnormal Pains Assessment Excluding what you would [...] No results found for this visit on 12/06/18. Patient Active Problem List Diagnosis ??? Hypercholesterolemia ??? OA (osteoarthritis)-s/p RIGHT TOTAL HIP REPLACEMENT 02/16/14. ??? Hypernatremia ??? Hip joint replacement by other means ??? Other physical therapy ??? Pre-op examination Past Medical History: Diagnosis Date ??? Arthritis ??? Hyperlipidemia ??? Motion sickness Past Surgical History: Procedure Laterality Date ??? HEMORRHOID SURGERY ??? HIP ARTHROPLASTY Right 02/16/2014 RIGHT TOTAL HIP REPLACEMENT; Surgeon: Bruce Oh MD; Location: [facility] MAIN OR; Service: Orthopedics ??? HYSTERECTOMY ??? LUMBAR DISC SURGERY 11/03/2012 Surgeon: Elza Bautista MD; Location: ED MAIN OR; Service: Allergies Allergen Reactions ??? Celecoxib Rash Current Outpatient Medications on File Prior to Visit Medication Sig Dispense Refill ??? ALLERGY RELIEF D-24HR 10-240 mg Oral Tablet Sustained Release 24 hr TAKE 1 TABLET BY MOUTH EVERY DAY 30 Tab 0 ??? aspirin 81 mg Oral Tablet, Delayed Release (E.C.) Take 81 mg by mouth daily. ??? atorvastatin (LIPITOR) 10 mg Oral Tablet TAKE 1 TABLET EVERY DAY 90 Tab 1 No current facility-administered medications on file prior to visit. Social History Socioeconomic History ??? Marital status: Spouse name: None ??? Number of children: None ??? Years of education: None ??? Highest education level: None Tobacco Use ??? Smoking status: Former Smoker Packs/day: 0.50 Years: 25.00 Pack years: 12.50 Types: Cigarettes Last attempt to quit: 09/27/2014 Years since quittin.1 ??? Smokeless tobacco: Never Used ??? Tobacco [...] ??? Zoster (1 of 2) 09/19/1997 ??? Bone Density Screening 09/19/2012 ??? Influenza Vaccine (1) 01/09/2019 ??? Annual Wellness Exam 12/07/2019 ??? Fall Risk Assessment 12/07/2019 ??? Breast Cancer Screening 10/15/2020 ??? Colon Cancer Screening: Colonoscopy 07/10/2024 ??? Hepatitis C Screening Completed ??? Pneumococcal Vaccine 65+ Completed Health Maintenance Due Topic Date Due ??? Zoster (1 of 2) 09/19/1997 ??? Bone Density Screening 09/19/2012 Patient Care Team: Mann Irene MD as PCP - General (Internal Medicine) Additional issues addressed today: Hip Replacement Surgery scheduled for 12/28/[address] Oh. Review of Systems Constitutional: Negative. HENT: Negative. Eyes: Negative. Respiratory: Negative. Cardiovascular: Negative. Gastrointestinal: Negative. Endocrine: Negative. Genitourinary: Negative. Musculoskeletal: Positive for arthralgias and joint swelling. Skin: Negative. Allergic/Immunologic: Negative. Neurological: Negative. Hematological: Negative. Psychiatric/Behavioral: Negative. OBJECTIVE: Physical Exam Constitutional: She is oriented to person, place, and time. She appears well- developed and well-nourished. No distress. HENT: Head: Normocephalic and atraumatic. Right Ear: External ear normal. Left Ear: External ear normal. Mouth/Throat: No oropharyngeal exudate. Eyes: Pupils are equal, round, and reactive to light. Conjunctivae are normal. Right eye exhibits no discharge. [...] warm and dry. She is not diaphoretic. Vitals reviewed. documented in this encounter Plan of Treatment Upcoming Encounters Date Type Department Care Team (Late st Contact Info) Description 05/16/2024 9:30 AM EST Office Visit [facility] [address] [place] [phone] Gilda Francis PA [address] [place] [address] documented as of this encounter Visit Diagnoses Diagnosis Annual physical exam- Primary Routine general medical examination at a health care facility Claudication (HCC) Peripheral vascular disease, unspecified Osteoarthritis, unspecified osteoarthritis type, unspecified site Pre-op examination Preoperative examination, unspecified documented in this encounter Discontinued Medications Medication Sig Discontinue Reason Start Date End Da te meloxicam (MOBIC) 15 mg Oral Tablet TAKE 1 TABLET EVERY DAY Cancelled by 09/14/2018 12/06/2018 diclofenac (VOLTAREN) 75 mg Oral Tablet, Delayed Release (E.C.) Take 1 Tab by mouth 2 times daily (with meals) for 360 days. Reorder 12/06/2018 12/06/2018 documented as of this encounter Additional Health Concerns Assessment Noted Time A fall risk assessment has been complete d for the patient 12/06/2018 7:30 AM EDT documented as of this encounter Care Teams Parking Patroller Relationship Specialty Start Date End Date Mann Irene MD [address] [place] [id number] PCP - General Internal Medicine 08/23/12 07/13/22 documented as of this encounter
--- OUTSIDE RECORDS SUMMARY | 2024-03-27 15:06 | XMS_ITS | Encounter Summary ---
Author Organization [place] [address] Care Team Providers Care Hot Wort Settler Name Role Phone Mann Irene MD Primary Care Provider [phone] Reason for Visit * Reason Comments Medication Refill Encounter Details Date Type Department Care Team (Late st Contact Info) Description 10/18/2018 Refill [facility] [place] [address] [address] [place] [address] [place] [address] Medication Refill Social History Tobacco Use [...] TABLET BY MOUTH EVERY DAY 30 Tab 10/18/2018 11/19/2018 documented in this encounter Plan of Treatment Upcoming Encounters Date Type Department Care Team (Late st Contact Info) Description 05/16/2024 9:30 AM EST Office Visit [facility] [address] [place] [phone] Gilda Francis PA [address] [place] [address] documented as of this encounter Visit Diagnoses Diagnosis Seasonal allergic rhinitis due to pollen documented in this encounter Discontinued Medications Medication Sig Discontinue Reason Start Date End Da te ALLERGY RELIEF D-24HR 10-240 mg Oral Tablet Sustained Release 24 hrIndications:Seasonal allergic rhinitis due to pollen TAKE 1 TABLET BY MOUTH EVERY DAY Reorder 09/14/2018 10/18/2018 documented as of this encounter Additional Health Concerns Assessment Noted Time A fall risk assessment has been complete d for the patient 10/12/2017 1:51 PM EDT documented as of this encounter Care Teams Hot Wort Settler Relationship Specialty Start Date End Date Mann Irene MD [address] [place] [address] PCP - General Internal Medicine 08/23/12 07/13/22 documented as of this encounter
--- OUTSIDE RECORDS SUMMARY | 2024-03-27 15:06 | XMS_ITS | Encounter Summary ---
Author Organization [place] [address] Care Team Providers Care Menagerie Caretaker Name Role Phone Mann Irene MD Primary Care Provider [phone] Reason for Referral * Mammography (Routine) - Closed Specialty Diagnoses / Procedures Referred By Ramona t Referred To Contact Radiology Diagnoses Encounter for screening mammogram for breast cancer Procedures MM MOBILE MAMMO DIGITAL SCREEN W CAD ZEB CHG SCREENING MAMMOGRAPHY BI 2-VIEW BREAST INC CAD ME SCR MAMMO BI INCL CAD Mann Irene MD [address] [place] [address] Phone: tel: fax: Referral ID Status Reason Start Date Expiration Date Visits Re quested Visits Authorized [id number] Closed 09/11/2017 09/12/2019 1 1 Reason for Visit * Mammography (Routine) - Closed Specialty Diagnoses / Procedures Referred By Contmillicent t Referred To Contact Radiology Diagnoses Encounter for screening mammogram for breast cancer Procedures MM MOBILE MAMMO DIGITAL SCREEN W CAD ZEB CHG SCREENING MAMMOGRAPHY BI 2-VIEW BREAST INC CAD ME SCR MAMMO BI INCL CAD Mann [place] [address] [place] [address] Phone: tel: fax: Referral ID Status Reason Start Date Expiration Date Visits Re quested Visits Authorized [id number] Closed 09/11/2017 09/12/2019 1 1 Encounter Details Date Type Department Care Team (Latest Contact Info) Description 09/14/2017 2:12 PM EDT - 09/14/2017 11:59 PM EDT Hospital Encounter Mobile Mammography Other Location View online schedule for mobile van location [phone] Mann Irene MD [address] [place] [address] Encounter for screening mammogram for breast cancer Discharge Disposition: Home or Self Care Social [...] 360 days. 90 Tab 3 09/11/2017 9 phenazopyridine (PYRIDIUM) 100 mg Oral TabletIndications:UT I (urinary tract infection), uncomplicated Take 1 Tab by mouth 3 times daily as needed for up to 5 days. 15 Tab 09/11/2017 8 sulfamethoxazole-tri methoprim (BACTRIM DS) 800-160 mg Oral TabletIndications:UT I (urinary tract infection), uncomplicated Take 1 Tab by mouth every 12 hours for 10 days. 20 Tab 09/11/2017 8 documented as of this encounter Discharge Disposition Disposition Code Departure Means Destination Home or Self Care documented in this encounter Plan of Treatment Upcoming Encounters Date Type Department Care Team (Late st Contact Info) Description 05/16/2024 9:30 AM EST Office Visit [facility] [address] [place] [address] Gilda Francis PA [address] [place] [address] documented as of this encounter Procedures Procedure Name Priority Date/Time Associated Diagnosis Comments MM MOBILE MAMMO DIGITAL SCREEN W CAD ZEB Routine 09/14/2017 2:21 PM EDT Encounter for screening mammogram for breast cancer documented in this encounter Results * MM MOBILE MAMMO DIGITAL SCREEN W CAD ZEB (09/14/2017 2:21 PM EDT) Anatomical Region Laterality Modality Breast Mammography 09/15/2017 10:1 0 AM EDT Impressions 09/15/2017 2:21 PM EDT : Negative ??([id number]) ~ RECOMMENDATION: Routine screening mammogram in 1 [...] reviewed by a Radiologist and CAD. Narrative 09/15/2017 2:21 PM EDT Procedure:MM MOBILE MAMMO DIGITAL SCREEN W CAD ZEB ~ Reason for exam: screening, asymptomatic. ~ MM MOBILE MAMMO DIGITAL SCREEN W CAD ZEB Bilateral CC and MLO view(s) were taken. Prior study comparison: October 07, 2013, bilateral MM MAMMO DIG SCREEN CAD BILAT performed at [facility]. There are scattered fibroglandular densities. ??Compared with prior studies, the most recent being 10-07-13. ~ Mann Irene MD IMG MAMMOGRAPHY ORDERABLES Fin al Result documented in this encounter Visit Diagnoses Diagnosis Encounter for screening mammogram for breast cancer documented in this encounter Additional Health Concerns Assessment Noted Time A fall risk assessment has been complete d for the patient 10/01/2016 4:48 PM EDT documented as of this encounter Care Teams Menagerie Caretaker Relationship Specialty Start Date End Date Mann Irene MD [address] [place] [address] PCP - General Internal Medicine 08/23/12 07/13/22 documented as of this encounter
--- OUTSIDE RECORDS SUMMARY | 2024-03-27 15:06 | XMS_ITS | Encounter Summary ---
Author Organization [place] [address] Care Team Providers Care Messenger Office Name Role Phone Mann Irene MD Primary Care Provider [phone] Reason for Visit * Auth/Cert/Inpt Specialty Diagnoses / Procedures Referred By Ramona mcdaniel Referred To Contact Diagnoses Primary osteoarthritis of left knee Primary osteoarthritis of left knee [M17.12] Procedures NM TOTAL KNEE ARTHROPLASTY left knee total replacement Referral ID Status Reason Start Date Expiration Date Visits Re quested Visits Authorized [id number] 1 1 Encounter Details Date Type Department Care Team (Latest Contact Info) Description 12/15/2018 8:37 AM EDT - 12/15/2018 11:59 PM EDT Hospital Encounter EDG PRE-ADMIT TESTING [facility] [place] [id number] Bruce Oh MD [address] [place] [address] 1, Edg Pat Nurse Anticoagulation adequate (Primary Dx) Discharge Disposition: Home or Self Care Anesthesia Record Procedure Summary Procedure Name Responsible [...] acknowledgement of understanding from the receiving PACU/ICU freight team associate [id number] An Stop Meds * Agents No agents on file. * Blood No blood administrations on file. Lines, Drains, and Airways Type Details Placement Removal Peripheral IV 12/28/18; 0958; 20; Distal, Right, Dorsal; Forearm; elvi n ; 1; None; 12/31/18; 0910; Therapy completed; Catheter intact, Dressing applied, No Complications 12/28/18 0958 by Julianna Valenzuela RN 12/31/18 0910 by Julianna Valenzuela, RN Airway Device: ETT- Cuffed; Size: 7 mm; Placement Date: 12/28/18; Placement Time: 1428 (created via procedure documentation); Removal Date: 12/28/18; Removal Time: 1534 12/28/18 1428 by Jonathan Holland MD 12/28/18 1534 by Noelle Joy Incision/Procedural Site 12/28/18; 1501; Knee; Left; 12/31/18; 1531 12/28/18 1501 by Radha Ochoa RN 12/31/18 1531 by Discharge Provider, Automatic documented in this [...] Sign Reading Time Taken Comments Blood Pressure 143/95 12/15/2018 8:52 AM EDT Pulse 85 12/15/2018 8:52 AM EDT Temperature 36.1 ??C (97 ??F) 12/15/2018 8:52 AM EDT Respiratory Rate 18 12/15/2018 8:52 AM EDT Oxygen Saturation 94% 12/15/2018 8:52 AM EDT Inhaled Oxygen Concentration - - Weight 79.4 kg (175 lb) 12/15/2018 8:52 AM EDT Height 160 cm (5' 3 ) 12/15/2018 8:52 AM EDT Body Mass Index 31 12/15/2018 8:52 AM EDT documented in this encounter [...] this encounter Discharge Instructions * Discharge Instructions* Juliette Hernandes RN - 12/15/2018 9:07 AM EDT Images from the original note were not included. PREPARING FOR YOUR SURGERY Date of Surgery 12/28/2018 Medications ??? Take the following pills with [...] ??? Review instructions provided by your surgeon. Joinery Patternmaker ??? On the day of surgery, it is important to have a Joinery Patternmaker, someone who is 18 years or older, [...] or near the operative extremity. ??? Nail tamazight must be removed from operative extremity. Personal [...] a Living Will and Durable Power of Buckle And Button Maker for Healthcare, please bring a copy. ??? [...] are here. [facility] - [facility] at [phone]; [facility]: Patient Entrance 3A, take [place] elevator to 2nd floor - [address] [place] [id number] How to Use Chlorhexidine Before Surgery Chlorhexidine is a germ-killing??(antiseptic) solution that is used to clean the skin. It gets rid of the bacteria that usually live on the skin. Because your skin needs to be very clean before you have surgery, your health care provider may give you chlorhexidine to wash with before the surgery. You may be given chlorhexidine to use at home. For example, you may be told to wash with chlorhexidine the night before and the morning of your surgery. Washing with chlorhexidine before surgery helps prevent infections from developing after the surgery. What are the risks? Chlorhexidine can cause a skin reaction if used improperly. To avoid problems: ?? Use the solution exactly as directed. ?? Do not use the solution on your head or face, in the genital area, or on areas of broken skin. How to use chlorhexidine Only use chlorhexidine as told by your health care provider. Do not use more chlorhexidine than youare told to, and do not use it more often than you are told. Make sure you follow the instructions on the label. If you have any questions, call your health care provider. You can use chlorhexidine while taking a shower or a bath. Unless instructed otherwise, follow these steps when using chlorhexidine: 1. Wash your face and your hair using the soap and shampoo that you normally use. 2. Turn off the shower or stand up in the tub. Then, wash with chlorhexidine. To wash with chlorhexidine: ? If you were given a sponge, use that. If you were not given a sponge, use only a cloth. Do not use any sort of brush. If the sponge has a brush on one side, do not use that side. ? Start at your neck and scrub down to your toes. Avoid your genital area. Chlorhexidine can cause a skin reaction. Also, avoid any areas of skin that have cuts or scrapes. ? Pay special attention to the part of your body where you will be having surgery. Scrub this area for at least 1 minute. ? Be sure to get your back and under your arms. ? Do not use chlorhexidine on your head. If the solution gets into your ears or eyes, rinse them well with water. Chlorhexidine can cause hearing loss??if the solution gets into your ear. It can alsoharm your eye if it gets in your eye and is not rinsed out. ?? Rinse your body completely in the shower or tub. Be sure that all body creases and crevices are rinsed well. 3. Dry off with a clean towel. Do not put any substances on your body afterward, such as powder, lotion, or perfume. 4. Put on clean clothing. 5. If it is the night before your surgery, sleep in clean sheets. Contact a health care provider if: ?? Your skin gets irritated after scrubbing. Get help right away if: ?? Your eyes become very red or swollen. ?? Your eyes itch badly. ?? Your skin itches badly and is red or swollen. ?? Your hearing changes. ?? You have trouble seeing. ?? You have trouble breathing. ?? You swallow any chlorhexidine. This information is not intended to replace advice given to you by your health care provider. Make sure you discuss any questions you have with your health care provider. Document Released: 01/19/2013 Document Revised: 05/21/2016 Document Reviewed: 03/05/2016 [employer] Interactive Patient Education ?? 2017 [employer] documented in this encounter Medications at Time of Discharge acetaminophen (TYLENOL) 500 mg Oral Tablet Take 2 Tabs by mouth every 8 hours as needed. 60 Tab 12/30/2018 9 aspirin 81 mg Oral Tablet, Delayed Release (E.C.) Take 81 mg by mouth daily. 9 diclofenac (VOLTAREN) 75 mg Oral Tablet, Delayed Release (E.C.)Indications:Os teoarthritis, unspecified osteoarthritis type, unspecified site Take 1 Tab by mouth 2 times daily (with meals) for 360 days. 180 Tab 3 12/06/2018 9 traMADol (ULTRAM) 50 mg Oral Tablet Take 1-2 Tabs by mouth every 6 hours as needed for Pain. May use for moderate 1-5 pain 60 Tab 12/30/2018 9 documented as of this encounter Discharge Disposition Disposition Code Departure Means Destination Home or Self Care documented in this encounter Plan of Treatment Upcoming Encounters Date Type Department Care Team (Late st Contact Info) Description 05/16/2024 9:30 AM EST Office Visit [facility] [address] [place] [address] Gilda Francis PA [address] [place] [address] documented as of this encounter Procedures Procedure Name Priority Date/Time Associated Diagnosis Comments BB HISTORY CHECK Routine 12/15/2018 9:33 AM EDT Anticoagulation adequate SURGERY DATE Routine 12/15/2018 9:33 AM EDT Anticoagulation adequate PREADMISSION TYPE AND SCREEN Routine 12/15/2018 9:33 AM EDT Anticoagulation adequate ABORH Routine 12/15/2018 9:33 AM EDT Anticoagulation adequate PT / INR Routine 12/15/2018 9:33 AM EDT Anticoagulation adequate CBC WITH DIFF Routine 12/15/2018 9:33 AM EDT Anticoagulation adequate ANTIBODY SCREEN IGG Routine 12/15/2018 9 :33 AM EDT Anticoagulation adequate COMPREHENSIVE METABOLIC PANEL Routine 12/15/2018 9:33 AM EDT Anticoagulation adequate documented in this encounter Results * BB HISTORY CHECK (12/15/2018 9:33 AM EDT) BB HISTORY CHECK (1) Previous History OK 12/15/2018 9:56 AM EDT [facility] BLOOD BANK Blood VENOUS BLOOD / Unknown Venipuncture / Unknown 12/15/2018 9:33 AM EDT 12/15/2018 9:40 AM EDT us Bruce Oh MD BLOOD BANK ORDERABLES Final Result [facility] BLOOD BANK [address] [place], [place] [id number] * SURGERY DATE (12/15/2018 9:33 AM EDT) Surgery Date (1) Complete 12/15/2018 9:57 AM EDT [facility] BLOOD BANK Blood VENOUS BLOOD / Unknown Venipuncture / Unknown 12/15/2018 9:33 AM EDT 12/15/2018 9:40 AM EDT Bruce Oh MD BLOOD BANK ORDERABLES Final Result Performing Organization Address [facility] Co de Phone Number [facility] BLOOD [address] [address] * ANTIBODY SCREEN IGG (12/15/2018 9:33 AM EDT) ABSC IgG Int Negative 12/15/2018 11:03 AM EDT [facility] BLOOD BANK Blood VENOUS BLOOD / Unknown Venipuncture / Unknown 12/15/2018 9:33 AM EDT 12/15/2018 9:40 AM EDT us Bruce Oh MD BLOOD BANK ORDERABLES Final Result Performing Organization Address [facility] de Phone Number [facility] [place] [address] * ABORH (12/15/2018 9:33 AM EDT) Pathologist [facility] ABORH Int O POS 12/15/2018 11:27 AM EDT [facility] BLOOD BANK Blood VENOUS BLOOD / Unknown Venipuncture / Unknown 12/15/2018 9:33 AM EDT 12/15/2018 9:40 AM EDT Bruce Oh MD BLOOD BANK ORDERABLES Final Result Performing Organization Address [facility] de Phone Number [facility] BLOOD [address] [address] * PT / INR (12/15/2018 9:33 AM EDT) PT 11.4 9.7 - 12.5 second(s) 12/15/2018 10:01 AM EDT [facility] INR 1.01 0.86 - 1.10 no units 12/15/2018 10:01 AM EDT [facility] Comment: Level of Therapy ? Indications ?Target INR Range Standard Dose Treatment and prophylaxis of venous ? 2.0 - 3.0 ? thrombosis, pulmonary embolism High Dose ? High risk patients with mechanical ? 2.5 - 3.5 ? heart valves Blood VENOUS BLOOD / Unknown Venipuncture / Unknown 12/15/2018 9:33 AM EDT 12/15/2018 9:40 AM EDT us Bruce Oh MD HEMATOLOGY ORDERABLES Final Result [facility] [address] [facility] , [place] [address] * (ABNORMAL) COMPREHENSIVE METABOLIC PANEL (12/15/2018 9:33 AM EDT) Sodium 144 136 - 145 mmol/L 12/15/2018 10:14 AM EDT [facility] Potassium 4.1 3.5 - 5.0 mmol/L 12/15/2018 10:14 AM EDT [facility] Chloride 107 98 - 107 mmol/L 12/15/2018 10:14 AM EDT [facility] Total CO2 27 22 - 29 mmol/L 12/15/2018 10:14 AM EDT [facility] Anion Gap 10 7 - 16 mmol/L 12/15/2018 10:14 AM EDT [facility] Calcium 9.3 8.8 - 10.4 mg/dL 12/15/2018 10:14 AM EDT [facility] Glucose Lvl 80(L) 82 - 100 mg/dL 12/15/2018 10:14 AM EDT [facility] BUN 11 8 - 23 mg/dL 12/15/2018 10:14 AM EDT [facility] Creatinine 0.62 0.51 - 1.30 mg/dL 12/15/2018 10:14 AM EDT [facility] Albumin 4.0 3.2 - 4.6 gm/dL 12/15/2018 10:14 AM EDT [facility] Total Protein 7.7 6.4 - 8.3 gm/dL 12/15/2018 10:14 AM EDT [facility] Bili Total 0.3 0.1 - 1.3 mg/dL 12/15/2018 10:14 AM EDT [facility] ALT 13 <=41 IU/L 12/15/2018 10:14 AM EDT [facility] AST 17 <=40 IU/L 12/15/2018 10:14 AM EDT [facility] Alk Phos 106 36 - 123 IU/L 12/15/2018 10:14 AM EDT [facility] GFR Afr Am 105 >=60 mL/min/1.7 3 m2 12/15/2018 10:14 AM EDT [facility] GFR Non Afr Am 91 >=60 mL/min/1.7 3 m2 12/15/2018 10:14 AM EDT [facility] Comment: This estimated GFR [...] 9:40 AM EDT us Bruce Oh MD CHEMISTRY ORDERABLES Final R esult [facility] [address] [facility] , [place] [address] [facility] [address] [place] [address] * (ABNORMAL) CBC WITH DIFF (12/15/2018 9:33 AM EDT) [facility] WBC 12.2(H) 3.7 - 10.3 x10(3)/mcL 12/15/2018 9:56 AM EDT [facility] RBC 5.08 3.90 - 5.20 x10(6)/mcL 12/15/2018 9:56 AM EDT [facility] Hgb 14.6 11.2 - 15.7 g/dL 12/15/2018 9:56 AM EDT [facility] Hct 44.9 34.0 - 45.0 % 12/15/2018 9:56 AM EDT [facility] MCV 88.4 80.0 - 100.0 fL 12/15/2018 9:56 AM EDT [facility] MCH 28.7 26.0 - 34.0 pg 12/15/2018 9:56 AM EDT [facility] MCHC 32.5 30.7 - 35.5 g/dL 12/15/2018 9:56 AM EDT [facility] RDW 13.9 <=14.9 % 12/15/2018 9:56 AM EDT [facility] Platelet 342 155 - 369 x10(3)/[facility] 12/15/2018 9:56 AM EDT [facility] MPV 9.2 8.8 - 12.5 fL 12/15/2018 9:56 AM EDT [facility] Neut Percent 38.3 % 12/15/2018 9:56 AM EDT [facility] Comment:Neutrophils equals s egs plus bands Imm Gran% 0.3 % 12/15/2018 9:56 AM EDT [facility] Comment:Automated count of m etamyelocytes, myelocytes and promyelocytes. Lymph Percent 48.5 % 12/15/2018 9:56 AM EDT [facility] [place] Percent 7.0 % 12/15/2018 9:56 AM EDT [facility] Eos Percent 5.2 % 12/15/2018 9:56 AM EDT [facility] Baso Percent 0.7 % 12/15/2018 9:56 AM EDT [facility] Neut # 4.7 1.6 - 6.1 x10(3)/[facility] 12/15/2018 9:56 AM EDT [facility] Comment:Neutrophils equals s egs plus bands IMMGRAN# 0.0 0.0 - 0.1 x10(3)/mcL 12/15/2018 9:56 AM EDT [facility] Comment:Automated count of m etamyelocytes, myelocytes and promyelocytes. An absolute IG <0.1 is reported as 0.0. Lymph # 5.9(H) 1.2 - 3.9 x10(3)/[facility] 12/15/2018 9:56 AM EDT [facility] [place] # 0.9 0.3 - 0.9 x10(3)/[facility] 12/15/2018 9:56 AM EDT [facility] [place] Eos# 0.6(H) 0.0 - 0.5 x10(3)/[facility] 12/15/2018 9:56 AM EDT [facility] Baso # 0.1 0.0 - 0.1 x10(3)/[facility] 12/15/2018 9:56 AM EDT [facility] Blood VENOUS BLOOD / Unknown Venipuncture / Unknown 12/15/2018 9:33 AM EDT 12/15/2018 9:40 AM EDT Bruce Oh MD HEMATOLOGY ORDERABLES Final Result [facility] [address] [facility] , [place] [address] documented in this encounter Visit Diagnoses Diagnosis Anticoagulation adequate- Primary Encounter for long-term (current) use of anticoagulants documented in this encounter Historical Medications * This list may reflect changes made after this encounter. vit C/E/Zn/coppr/lute in/zeaxan (PRESERVISION AREDS-2 ORAL) Take by mouth 2 times daily. 11/22/2019 loratadine/pseudo ephedrine (LORATADINE-D ORAL) Take by mouth daily. 01/27/2019 added in this encounter Additional Health Concerns Assessment Noted Time A fall risk assessment has been complete d for the patient 12/06/2018 7:30 AM EDT documented as of this encounter Care Teams Messenger Office Relationship Specialty Start Date End Date Mann Irene MD [address] [place] [phone] PCP - General Internal Medicine 08/23/12 07/13/22 documented as of this encounter
--- OUTSIDE RECORDS SUMMARY | 2024-03-27 15:06 | XMS_ITS | Encounter Summary ---
Author Organization [place] [address] Care Team Providers Care Charter Pilot Name Role Phone Mann Irene MD Primary Care Provider [phone] Reason for Visit * Reason Comments Medication Refill Encounter Details Date Type Department Care Team (Late st Contact Info) Description 07/18/2017 Refill [facility] [place] [address] [address] Mann [place] [address] [address] [place] [address] Medication Refill Social History Tobacco Use [...] of Assessment Author No 02/20/2014 3:41 PM Rhea Sainz RN * Does this person have serious difficulty walking or climbing stairs? Answer Date of Assessment Author No 02/20/2014 3:41 PM Rhea Sainz RN * Does this person have difficulty dressing or bathing? Answer Date of Assessment Author No 02/20/2014 3:41 PM Rhea Sainz RN * Because of a physical, mental or emotional condition, does this person have difficulty doing errands alone such as visiting a doctor's office or shopping? Answer Date of Assessment Author No 02/20/2014 3:41 PM Rhea Sainz RN documented as of this encounter Mental [...] (E.C.)Indications:Osteoar thritis, unspecified osteoarthritis type, unspecified site TAKE 1 TAB BY MOUTH 2 TIMES DAILY (WITH MEALS). 180 Tab 1 8 09/12/19 18 atorvastatin (LIPITOR) 10 mg Oral TabletIndications:Pure hypercholesterolemia TAKE 1 TABLET EVERY DAY 90 Tab 1 8 01/24/20 18 documented in this encounter Plan of Treatment Upcoming Encounters Date Type Department Care Team (Late st Contact Info) Description 05/16/2024 9:30 AM EST Office Visit [facility] [address] [place] [address] Gilda Francis PA [address] [place] [address] documented as of this encounter Visit Diagnoses Diagnosis Pure hypercholesterolemia Osteoarthritis, unspecified osteoarthritis type, unspecified site documented in this encounter Discontinued Medications Medication Sig Discontinue Reason Start Date End Da te atorvastatin (LIPITOR) 10 mg Oral TabletIndications:Pure hypercholesterolemia Take 1 Tab by mouth daily. Reorder 12/01/2016 07/18/2017 diclofenac (VOLTAREN) 75 mg Oral Tablet, Delayed Release (E.C.)Indications:Osteoarthrit is, unspecified osteoarthritis type, unspecified site Take 1 Tab by mouth 2 times daily (with meals). Reorder 12/01/2016 07/18/2017 documented as of this encounter Additional Health Concerns Assessment Noted Time A fall risk assessment has been complete d for the patient 10/01/2016 4:48 PM EDT documented as of this encounter Care Teams Charter Pilot Relationship Specialty Start Date End Date Mann Irene MD [address] [place] [id number] PCP - General Internal Medicine 08/23/12 07/13/22 documented as of this encounter
--- OUTSIDE RECORDS SUMMARY | 2024-03-27 15:06 | XMS_ITS | Encounter Summary ---
Author Organization [place] [address] Care Team Providers Care Marketing Traffic Coordinator Name Role Phone Mann Irene MD Primary Care Provider Reason for Visit * Reason Comments Medication Refill Encounter Details Date Type Department Care Team (Late st Contact Info) Description 09/29/2017 Refill [facility] [place] [address] [address] [place] [address] [place] [address] Medication Refill Social History Tobacco Use [...] 1 TAB BY MOUTH DAILY. 30 Tab 09/29/2017 11/17/2017 documented in this encounter Plan of Treatment Upcoming Encounters Date Type Department Care Team (Late st Contact Info) Description 05/16/2024 9:30 AM EST Office Visit [facility] [address] [place] [address] Gilda Francis PA [address] [place] [address] documented as of this encounter Visit Diagnoses Diagnosis Seasonal allergic rhinitis due to pollen documented in this encounter Discontinued Medications Medication Sig Discontinue Reason Start Date End Da te ALLERGY RELIEF D-24 10-240 mg Oral Tablet Sustained Release 24 hrIndications:Seasonal allergic rhinitis due to pollen TAKE 1 TAB BY MOUTH DAILY. Reorder 08/31/2017 09/29/2017 documented as of this encounter Additional Health Concerns Assessment Noted Time A fall risk assessment has been complete d for the patient 10/01/2016 4:48 PM EDT documented as of this encounter Care Teams Marketing Traffic Coordinator Relationship Specialty Start Date End Date Mann Irene MD [address] [place] [phone] PCP - General Internal Medicine 08/23/12 07/13/22 documented as of this encounter
--- OUTSIDE RECORDS SUMMARY | 2024-03-27 15:06 | XMS_ITS | Encounter Summary ---
Author Organization [place] [address] Care Team Providers Care Imcu Nurse Name Role Phone Mann Irene MD Primary Care Provider [phone] Reason for Visit * Reason Comments Medication Refill Encounter Details Date Type Department Care Team (Late st Contact Info) Description 04/25/2017 Refill [facility] [place] [address] Mann Irene MD [...] TAB BY MOUTH DAILY. 30 Tab 2 04/27/2017 08/31/2017 documented in this encounter Plan of Treatment Upcoming Encounters Date Type Department Care Team (Late st Contact Info) Description 05/16/2024 9:30 AM EST Office Visit [facility] [address] [place] [address] Gilda Francis PA [address] [place] [address] documented as of this encounter Visit Diagnoses Diagnosis Seasonal allergic rhinitis due to pollen documented in this encounter Discontinued Medications Medication Sig Discontinue Reason Start Date End Da te CLARITIN-D 24 HOUR 10-240 mg Oral Tablet Sustained Release 24 hrIndications:Seasonal allergic rhinitis due to pollen TAKE 1 TAB BY MOUTH DAILY. Reorder 01/06/2017 04/25/2017 documented as of this encounter Additional Health [...]
--- OUTSIDE RECORDS SUMMARY | 2024-03-27 15:06 | XMS_ITS | Encounter Summary ---
Author Organization [place] [address] Care Team Providers Care Dry Lumber Grader Name Role Phone Mann Irene MD Primary Care Provider [phone] Reason for Referral * Consultation (Routine) - Closed Specialty Diagnoses / Procedures Referred By Ramona [email or web address] Referred To Contact Orthopedic Surgery Diagnoses Pain in both knees, unspecified chronicity Mann Irene MD [facility] [place] [address] Phone: tel: fax: Bruce Oh MD [address] [place] [address] Phone: tel: fax: Referral ID Status Reason Start Date Expiration Date Visits Re quested Visits Authorized [id number] Closed 09/10/2018 09/10/2019 1 99 Reason for Visit * Reason Onset Date Comments Referral 09/10/2018 Encounter Details Date Type Department Care Team (Late st Contact Info) Description 09/10/[address] [place] [address] Mann Irene MD [facility] [place] [address] Referral Social History Tobacco Use Types [...] Elida Pavon CCMA documented in this encounter Miscellaneous Notes * Telephone Encounter - Brittany Slaughter CCMA - 09/10/2018 10:49 AM EDT done * Telephone Encounter - Samuel Rodriguez - 09/10/2018 9:48 AM EDT [facility] called stated they need an updated referral for bilateral knee pain to Dr. Oh. Please advise Thank you documented in this encounter Plan of Treatment Upcoming Encounters Date Type Department Care Team (Late st Contact Info) Description 05/16/2024 9:30 AM EST Office Visit [facility] [address] [place] [address] Gilda Francis PA [address] [place] [address] Scheduled Referrals Name Type Priority Associated Diagnoses Orde r Schedule AMB REFERRAL TO ORTHOPEDIC SURGERY Outpatient Referral Routine Pain in both knees, unspecified chronicity Ordered: 09/10/2018 documented as of this encounter Visit Diagnoses Diagnosis Pain in both knees, unspecified chronicity- Primary documented in this encounter Additional Health Concerns Assessment Noted Time A fall risk assessment has been complete d for the patient 10/12/2017 1:51 PM EDT documented as of this encounter Care Teams Dry Lumber Grader Relationship Specialty Start Date End Date Mann Irene MD [address] [place] [address] PCP - General Internal Medicine 08/23/12 07/13/22 documented as of this encounter
--- OUTSIDE RECORDS SUMMARY | 2024-03-27 15:06 | XMS_ITS | Encounter Summary ---
Author Organization [place] [address] Care Team Providers Care Auto Overhauler Name Role Phone Mann Irene MD Primary Care Provider [phone] Reason for Visit * Reason Comments Cough productive Congestion Encounter Details Date Type Department Care Team (Late st Contact Info) Description 03/11/2016 3:40 PM EDT Office Visit [facility] [place] [facility] [place] [address] Mann Irene MD [address] [place] [address] Pneumonia of right lower lobe due to infectious organism (Primary Dx) Social History Tobacco Use Types [...] Sign Reading Time Taken Comments Blood Pressure 134/80 03/11/2016 4:51 PM EDT Pulse 80 03/11/2016 4:51 PM EDT Temperature 36.7 ??C (98 ??F) 03/11/2016 4:51 PM EDT Respiratory Rate 18 03/11/2016 4:51 PM EDT Oxygen Saturation 96% 03/11/2016 4:51 PM EDT Inhaled Oxygen Concentration - - Weight 89.8 kg (198 lb) 03/11/2016 4:51 PM EDT Height 162.6 cm (5' 4 ) 03/11/2016 4:51 PM EDT Body Mass Index 33.99 03/11/2016 4:51 PM EDT documented in this encounter Functional [...] Filled Start Date End Date predniSONE (DELTASONE) 10 mg Oral TabletIndications:P neumonia of right lower lobe due to infectious organism Take 1 Tab by mouth 2 times daily for 7 days. 14 Tab 03/11/2016 03/18/2016 amoxicillin-clavula dean (AUGMENTIN) 500-125 mg Oral TabletIndications:P neumonia of right lower lobe due to infectious organism Take 1 Tab by mouth 2 times daily for 10 days. 20 Tab 03/11/2016 03/21/2016 documented in this encounter Progress Notes * Mann Irene MD - 03/11/2016 3:40 PM EDT Stella Hylton is a 70 y.o. female Chief Complaint Patient presents with ??? Cough productive ??? Congestion HPI: Chills for the past month. Cough for the past month. No fevers. Wt Readings from Last 3 Encounters: 03/11/16 198 lb (89.8 kg) 01/08/16 189 lb (85.7 kg) 09/04/15 184 lb (83.5 kg) Visit Vitals ??? BP 134/80 (BP Location: Left arm, Patient Position: Sitting) ??? Pulse 80 ??? Temp 98 ??F (36.7 ??C) ??? Resp 18 ??? Ht 5' 4 (1.626 m) ??? Wt 198 lb (89.8 kg) ??? SpO2 96% ??? BMI 33.99 kg/m2 Health Maintenance Health Maintenance Topic Date Due ??? Zoster (1) 2007 ??? Colon Cancer Screening: Occult Blood 07/11/2015 ??? Influenza Vaccine (1) 01/10/2016 ??? Breast Cancer Screening 10/08/2015 ??? Annual Wellness Exam 01/07/2017 ??? Colon Cancer Screening: Colonoscopy 07/10/2024 ??? Pneumococcal Vaccine (Low/Medium risk) 65+ Completed Problem List Patient Active Problem List Diagnosis ??? Hypercholesterolemia ??? OA (osteoarthritis)-s/p RIGHT TOTAL HIP REPLACEMENT 02/16/14. ??? Hypernatremia ??? Hip joint replacement by other means ??? Other physical therapy Medications Current Outpatient Prescriptions Medication Sig Dispense Refill ??? aspirin 81 mg Oral Tablet, Delayed Release (E.C.) Take 81 mg by mouth daily. ??? atorvastatin (LIPITOR) 10 mg Oral Tablet Take 1 Tab by mouth daily. 90 Tab 1 ??? diclofenac (VOLTAREN) 75 mg Oral Tablet, Delayed Release (E.C.) Take 1 Tab by mouth 2 times daily (with meals). 180 Tab 1 ??? loratadine-pseudoephedrine (LORATADINE-PSEUDOEPHEDRINE) 10-240 mg Oral Tablet Sustained [id number] hr Take 1 Tab by mouth daily. 30 Tab 2 ??? amoxicillin-clavulanate (AUGMENTIN) 500-125 mg Oral Tablet Take 1 Tab by mouth 2 times daily for 10 days. 20 Tab 0 ??? predniSONE (DELTASONE) 10 mg Oral Tablet Take 1 Tab by mouth 2 times daily for 7 days. 14 Tab 0 No current facility-administered medications for this visit. Surgery History Past Surgical History Procedure Laterality Date ??? Hysterectomy ??? Hemorrhoid surgery ??? Lumbar disc surgery 11/03/2012 Surgeon: Elza Bauitsta MD; Location: [facility] MAIN OR; Service: ??? Hip arthroplasty Right 02/16/2014 RIGHT TOTAL HIP REPLACEMENT; Surgeon: Bruce Oh MD; Location: [facility] MAIN OR; Service: Orthopedics Social history Social History Social History ??? Marital status: Spouse name: N/A ??? Number of children: N/A ??? Years of education: N/A Social History Main Topics ??? Smoking status: Former Smoker Packs/day: 0.50 Years: 25.00 Types: Cigarettes Quit date: 09/27/2014 ??? Smokeless tobacco: Never Used Comment: quit ~ ??? Alcohol use No ??? Drug use: No ??? Sexual activity: Not Asked Other Topics Concern ??? None Social History Narrative Immunizations Immunization History Administered Date(s) Administered ??? Influenza High Dose 02/21/2015 ??? Influenza Vaccine, Unspecified Formulation 02/04/2014, 02/09/2016 ??? PPD Test 02/20/2014 ??? Pneumococcal Conjugate Vaccine 13 Valent 02/28/2015 ??? Pneumococcal Polysaccharide 23 Valent 10/13/2012 ??? Tdap 02/28/2015 ROS: As outlined in HPI, Additional Findings: None The physical exam is generally normal. Patient appears well, alert and oriented x 3, pleasant, cooperative. Vitals are as noted. Neck supple and free of adenopathy, or masses. No thyromegaly. TIMI. Ears, throat are normal. Lungs with RLL crackles/congestion. Heart sounds are normal, no murmurs, clicks, gallops or rubs. Abdomen is soft, no tenderness, masses or organomegaly. Neurologic exam is normal without focal findings. Skin is normal without suspicious lesions noted. Stella was seen today for cough and congestion. Diagnoses and all orders for this visit: Pneumonia of right lower lobe due to infectious organism Orders: - amoxicillin-clavulanate (AUGMENTIN) 500-125 mg Oral Tablet; Take 1 Tab by mouth 2 times daily for10 days. - predniSONE (DELTASONE) 10 mg Oral Tablet; Take 1 Tab by mouth 2 times daily for 7 days. Recommend CXR if no improvement. If a new medication was prescribed during this office visit. I did discuss with the patient the reason for prescribing this new medication. I also did inform the patient of possible likely side effects, but also encouraged the patient to read the medication insert that will accompany their prescription and encouraged her to discuss any questions about the insert with their pharmacist. She was instructed to call if having side effects or possible allergic reaction after taking. I also discussed with her the risk of stopping the medication or deviating from prescribing instructions. Dosing instructions are present on the AVS and she is aware. I inquired both patient and family of any questions and answered accordingly. Educated patient regarding the care plan and instructions listed on the After Visit Summary [AVS] for today's visit. The patient verbalized full understanding of the care plan and instructions given on the AVS for today's visit. documented in this encounter Plan of Treatment Upcoming Encounters Date Type Department Care Team (Late st Contact Info) Description 05/16/2024 9:30 AM EST Office Visit [facility] [address] [place] [phone] Gilda Francis PA [address] [place] [address] documented as of this encounter Visit Diagnoses Diagnosis Pneumonia of right lower lobe due to infectious organism- Primary documented in this encounter Additional Health Concerns Assessment Noted Time A fall risk assessment has been complete d for the patient 03/02/2015 2:44 PM EDT PHQ-2 Depression Total Score: 1 09/04/19 16 11:00 AM EDT documented as of this encounter Care Teams Auto Overhauler Relationship Specialty Start Date End Date Mann Irene MD [address] [place] [address] PCP - General Internal Medicine 08/23/12 07/13/22 documented as of this encounter
--- OUTSIDE RECORDS SUMMARY | 2024-03-27 15:06 | XMS_ITS | Encounter Summary ---
Author Organization [place] [address] Care Team Providers Care Social Media Editor Name Role Phone Mnan Irene MD Primary Care Provider [phone] Reason for Visit * Reason Comments Medication Refill Encounter Details Date Type Department Care Team (Late st Contact Info) Description 09/14/2018 Refill [facility] [address] [place] [address] [place] [address] Medication Refill Social History Tobacco Use [...] TABLET BY MOUTH EVERY DAY 30 Tab 09/14/2018 10/18/2018 documented in this encounter Plan of Treatment Upcoming Encounters Date Type Department Care Team (Late st Contact Info) Description 05/16/2024 9:30 AM EST Office Visit [facility] [address] [place] [address] Gilda Francis PA [address] [place] [address] documented as of this encounter Visit Diagnoses Diagnosis Seasonal allergic rhinitis due to pollen documented in this encounter Discontinued Medications Medication Sig Discontinue Reason Start Date End Da te ALLERGY RELIEF D-24HR 10-240 mg Oral Tablet Sustained Release 24 hrIndications:Seasonal allergic rhinitis due to pollen TAKE 1 TABLET BY MOUTH EVERY DAY Reorder 07/16/2018 09/14/2018 documented as of this encounter Additional Health Concerns Assessment Noted Time A fall risk assessment has been complete d for the patient 10/12/2017 1:51 PM EDT documented as of this encounter Care Teams Social Media Editor Relationship Specialty Start Date End Date Mann Irene MD [address] [place] [address] PCP - General Internal Medicine 08/23/12 07/13/22 documented as of this encounter
--- OUTSIDE RECORDS SUMMARY | 2024-03-27 15:06 | XMS_ITS | Encounter Summary ---
Author Organization [place] [address] Care Team Providers Care Net Developer Name Role Phone Mann Irene MD Primary Care Provider [phone] Reason for Visit * Reason Comments Medication Refill Encounter Details Date Type Department Care Team (Late st Contact Info) Description 11/23/2016 Refill [facility] [place] [place] [address] [address] Mann [place] [address] [place] [address] Medication Refill Social History Tobacco Use [...] (E.C.)Indications:Os teoarthritis, unspecified osteoarthritis type, unspecified site TAKE 1 TABLET TWICE DAILY WITH MEALS 180 Tab 1 11/24/2016 7 documented in this encounter Plan of Treatment Upcoming Encounters Date Type Department Care Team (Late st Contact Info) Description 05/16/2024 9:30 AM EST Office Visit [facility] [address] [place] [address] Gilda Francis PA [address] [place] [address] documented as of this encounter Visit Diagnoses Diagnosis Osteoarthritis, unspecified osteoarthritis type, unspecified site documented in this encounter Discontinued Medications Medication Sig Discontinue Reason Start Date End Da te diclofenac (VOLTAREN) 75 mg Oral Tablet, Delayed Release (E.C.)Indications:Osteoarth ritis, unspecified osteoarthritis type, unspecified site Take 1 Tab by mouth 2 times daily (with meals). Reorder 01/08/2016 11/23/2016 documented as of this encounter Additional Health Concerns Assessment Noted Time A fall risk assessment has been complete d for the patient 10/01/2016 4:48 PM EDT documented as of this encounter Care Teams Net Developer Relationship Specialty Start Date End Date Mann Irene MD [address] [place] [address] PCP - General Internal Medicine 08/23/12 07/13/22 documented as of this encounter
--- OUTSIDE RECORDS SUMMARY | 2024-03-27 15:06 | XMS_ITS | Encounter Summary ---
Author Organization [place] [address] Care Team Providers Care Change Person Name Role Phone Mann Irene MD Primary Care Provider Reason for Visit * Reason Comments Medication Refill Encounter Details Date Type Department Care Team (Late st Contact Info) Description 09/13/2018 Refill [facility] [place] [address] [address] Mann Irene MD [...] No 03/05/2018 2:39 PM EDT Elida Pavon ASHLEYElver * Because of a physical, mental or emotional condition, does this person have difficulty doing errands alone such as visiting a doctor's office or shopping? Answer Date of Assessment Author No 03/05/2018 2:39 PM EDT Elida Pavon CCMElver documented as of this encounter Mental Status * Because of a physical, mental or emotional condition, does this person have serious difficulty concentrating, remembering or making decisions? Answer Entry Date Author No 03/05/2018 2:39 PM EDT Elida Pavon CCMA documented in this encounter Ordered Prescriptions Prescription Sig Dispense Quantity Refills Last Filled Start Date End Date meloxicam (MOBIC) 15 mg Oral Tablet TAKE 1 TABLET EVERY DAY 90 Tab 3 09/14/2018 12/06/2018 documented in this encounter Plan of Treatment Upcoming Encounters Date Type Department Care Team (Late st Contact Info) Description 05/16/2024 9:30 AM EST Office Visit [facility] [address] [place] [phone] Gilda Francis PA [address] [place] [address] documented as of this encounter Visit Diagnoses Not on filedocumented in this encounter Additional Health Concerns Assessment Noted Time A fall risk assessment has been complete d for the patient 10/12/2017 1:51 PM EDT documented as of this encounter Care Teams Change Person Relationship Specialty Start Date End Date Mann Irene MD [facility] [place] [phone] PCP - General Internal Medicine 08/23/12 07/13/22 documented as of this encounter
--- OUTSIDE RECORDS SUMMARY | 2024-03-27 15:06 | XMS_ITS | Encounter Summary ---
Author Organization [place] [address] Care Team Providers Care Laundry Sorter Name Role Phone Mann Irene MD Primary Care Provider [phone] Reason for Visit * Reason Onset Date Comments Medication Refill 11/28/2016 Encounter Details Date Type Department Care Team (Late st Contact Info) Description 11/28/2016 Refill [facility] [place] [address] Mann Irene MD [...] Tab by mouth daily. 90 Tab 1 11/28/2016 12/02/19 17 diclofenac (VOLTAREN) 75 mg Oral Tablet, Delayed Release (E.C.)Indications:Osteoar thritis, unspecified osteoarthritis type, unspecified site Take 1 Tab by mouth 2 times daily (with meals). 180 Tab 1 11/28/2016 12/02/19 17 documented in this encounter Plan of Treatment Upcoming Encounters Date Type Department Care Team (Late st Contact Info) Description 05/16/2024 9:30 AM EST Office Visit [facility] [address] [place] [address] Gilda Francis PA [address] [place] [address] documented as of this encounter Visit Diagnoses Diagnosis Osteoarthritis, unspecified osteoarthritis type, unspecified site Pure hypercholesterolemia documented in this encounter Discontinued Medications Medication Sig Discontinue Reason Start Date End Da te diclofenac (VOLTAREN) 75 mg Oral Tablet, Delayed Release (E.C.)Indications:Osteoart hritis, unspecified osteoarthritis type, unspecified site TAKE 1 TABLET TWICE DAILY WITH MEALS Reorder 11/24/2016 11/28/2016 atorvastatin (LIPITOR) 10 mg Oral TabletIndications:Hyperlip idemia Take 1 Tab by mouth daily. Reorder 01/08/2016 11/28/2016 documented as of this encounter Additional Health Concerns Assessment Noted Time A fall risk assessment has been complete d for the patient 10/01/2016 4:48 PM EDT documented as of this encounter Care Teams Laundry Sorter Relationship Specialty Start Date End Date Mann Irene MD [address] [place] [address] PCP - General Internal Medicine 08/23/12 07/13/22 documented as of this encounter
--- OUTSIDE RECORDS SUMMARY | 2024-03-27 15:07 | XMS_ITS | Encounter Summary ---
Author Organization [place] Address [facility] [place] [address] Care Team Providers Care Water Resource Project Manager Name Role Phone Mann Irene MD Primary Care Provider [phone] Encounter Details Date Type Department Care Team (Latest Contact Info) Description 07/10/2014 8:45 PM EST - 07/10/2014 11:59 PM EST Hospital Encounter [facility] [place] [id number] Discharge Disposition: Home or Self Care Social History Tobacco Use Types Packs/Day Years Used Date Smoking Tobacco: Former Cigarettes 0.5 25 Smokeless Tobacco: Never Comments:quit ~'06 Alcohol Use [...] Rhea Sainz RN documented in this encounter Medications at Time of Discharge aspirin 81 mg Oral Tablet, Delayed Release (E.C.) Take 81 mg by mouth daily. 12/31/2018 documented as of this encounter Discharge Disposition Disposition Code Departure Means Destination Home or Self Care documented in this encounter Plan of Treatment Upcoming Encounters Date Type Department Care Team (Late st Contact Info) Description 05/16/2024 9:30 AM EST Office Visit [facility] [address] [place] [address] Gilda Francis PA [address] [place] [address] documented as of this encounter Procedures Procedure Name Priority Date/Time Associated Diagnosis Comments PATHOLOGY TISSUE REPORT Routine 07/10/2014 12:00 PM EST documented in this encounter Results * PATHOLOGY TISSUE REPORT (07/10/2014 12:00 PM EST) Surgical Pathology Report ? PATIENT NAME:LISY GOLDSTEIN ?Surgical Pathology Report ? Accession Number ?Collected Date/Time ? Received Date/Time ? [id number] ? 07/10/14 12:00 EST ?07/10/14 21:39 EST [...] and the findings corroborate the ? diagnosis. [facility] 07/10/2014 12:0 0 PM EST us Edil Mann MD PATHOLOGY ORDERABLES Final Result [facility] [address] [place] [address] documented in this encounter Visit Diagnoses Not on filedocumented in this encounter Care Teams Water Resource Project Manager Relationship Specialty Start Date End Date Mann Irene MD [address] [place] [address] PCP - General Internal Medicine 08/23/12 07/13/22 documented as of this encounter
--- OUTSIDE RECORDS SUMMARY | 2024-03-27 15:07 | XMS_ITS | Encounter Summary ---
Author Organization [place] [address] Care Team Providers Care Small Piece Cutter Name Role Phone Mann Irene MD Primary Care Provider Reason for Visit * Reason Comments Medication Refill Encounter Details Date Type Department Care Team (Late st Contact Info) Description 05/14/2015 Refill [facility] [address] [address] Mann Irene [place] [address] [place] [address] Medication Refill Social History Tobacco Use [...] End Date atorvastatin (LIPITOR) 10 mg Oral Tablet TAKE 1 TABLET EVERY DAY 90 Tab 1 05/14/2015 09/28/2015 documented in this encounter Plan of Treatment Upcoming Encounters Date Type Department Care Team (Late st Contact Info) Description 05/16/2024 9:30 AM EST Office Visit [facility] [address] [place] [phone] Gilda Francis PA [address] [place] [address] documented as of this encounter Visit Diagnoses Not on filedocumented in this encounter Discontinued Medications Medication Sig Discontinue Reason Start Date End Da te atorvastatin (LIPITOR) 10 mg Oral Tablet TAKE 1 TABLET BY MOUTH DAILY. Reorder 12/22/2014 05/14/2015 documented as of this encounter Additional Health Concerns Assessment Noted Time A fall risk assessment has been complete d for the patient 03/02/2015 2:44 PM EDT documented as of this encounter Care Teams Small Piece Cutter Relationship Specialty Start Date End Date Mann Irene MD [place] [address] PCP - General Internal Medicine 08/23/12 07/13/22 documented as of this encounter
--- OUTSIDE RECORDS SUMMARY | 2024-03-27 15:07 | XMS_ITS | Encounter Summary ---
Author Organization [place] [address] Care Team Providers Care Health Clinician Name Role Phone Mann Irene MD Primary Care Provider [phone] Reason for Visit * Reason Comments Cough pt sts that she has been w/cough for week. productive green sputum Congestion head and chest conge george Encounter Details Date Type Department Care Team (Late st Contact Info) Description 09/04/2015 11:40 AM EDT Office Visit [facility] [place] [facility] [address] [place] [address] Latesha Cabral, PATRICIA [address] [place], [place] [id number] Acute bacterial sinusitis (Primary Dx); Acute bronchitis, unspecified organism Social History Tobacco [...] Sign Reading Time Taken Comments Blood Pressure 116/58 09/04/2015 11:14 AM EDT Pulse 96 09/04/2015 11:14 AM EDT Temperature 36.8 ??C (98.2 ??F) 09/04/2015 11:14 AM E DT Respiratory Rate - - Oxygen Saturation 92% 09/04/2015 11:14 AM EDT Inhaled Oxygen Concentration - - Weight 83.5 kg (184 lb) 09/04/2015 11:14 AM EDT Height 162.6 cm (5' 4 ) 09/04/2015 11:14 AM EDT Body Mass Index 31.58 09/04/2015 11:14 AM EDT documented in this encounter Functional [...] Refills Last Filled Start Date End Date amoxicillin-clavula dean (AUGMENTIN) 875-125 mg Oral TabletIndications:A cute bacterial sinusitis,Acute bronchitis, unspecified organism Take 1 Tab by mouth 2 times daily for 10 days. 20 Tab 0 09/04/2015 09/14/2015 documented in this encounter Progress Notes * Latesha Cabral ARNP - 09/04/2015 11:18 AM EDT Stella Hylton is a 69 y.o. female Subjective Chief Complaint Patient presents with ??? Cough pt sts that she has been w/cough for week. productive green sputum ??? Congestion head and chest congestion Presents with cough for a week that is productive of green phlegm. Cough is very forceful. Positivefor head and sinus pressure. No rhinorrhea. Pos for PND. Former smoker. Review of Systems Constitutional: Positive for fever and chills. HENT: Positive for congestion, postnasal drip, sinus pressure and sore throat. Negative for ear pain and rhinorrhea. Eyes: Negative. Respiratory: Positive for cough and wheezing. Negative for chest tightness and shortness of breath. Cardiovascular: Negative. Neurological: Positive for dizziness. Negative for numbness and headaches. Objective BP 116/58 mmHg Pulse 96 Temp(Src) 98.2 ??F (36.8 ??C) (Oral) Ht 5' 4 (1.626 m) Wt 184 lb (83.462 kg) BMI 31.57 kg/m2 SpO2 92% Physical Exam Constitutional: No acute distress. Nasally sounding. Appears mildly ill Head: normocephalic and atraumatic, pos sinus pressure Ears. TM's dull and full. Mouth: Pos erythema with PND present. No tonsillar exudate Eyes: No discharge or injection. Neck: supple with normal ROM. No neck pain. Pos ant cervical LA CV: RRR, no murmur, gallop or rub Resp: Clear anterior and posterior. No rales, wheezes or rhonchi Abdomen: soft and non tender Skin: No rashes or lesions, warm and dry Neuro: CN grossly intact Psy: Normal affect and mood. Assessment and Plan Stella was seen today for cough and congestion. Diagnoses and all orders for this visit: Acute bacterial sinusitis Orders: - amoxicillin-clavulanate (AUGMENTIN) 875-125 mg Oral Tablet; Take 1 Tab by mouth 2 times daily for10 days. Acute bronchitis, unspecified organism Orders: - amoxicillin-clavulanate (AUGMENTIN) 875-125 mg Oral Tablet; Take 1 Tab by mouth 2 times daily for10 days. Return if symptoms worsen or fail to improve. Educated patient regarding the care plan and instructions listed on the After Visit Summary [AVS] for today's visit. They verbalized full understanding of the care plan and instructions given on the AVS for today's visit. A new medicine was prescribed during this [...] instructions are present on the AVS and the they are aware. I inquired of any questions and answered accordingly. SARAH Tidwell documented in this encounter Miscellaneous Notes * Patient Instructions - Latesha Cabral ARNP - 09/04/2015 12:13 PM EDT Images from the original note were not included. Sinusitis Sinusitis is redness, soreness, and puffiness (inflammation) of the air pockets in the bones of your face (sinuses). The redness, soreness, and puffiness can cause air and mucus to get trapped in your sinuses. This can allow germs to grow and cause an infection. HOME CARE ?? Drink enough fluids to keep your pee (urine) clear or pale yellow. ?? Use a humidifier in your home. ?? Run a hot shower to create steam in the bathroom. Sit in the bathroom with the door closed. Breathe in the steam 3-4 times a day. ?? Put a warm, moist washcloth on your face 3-4 times a day, or as told by your doctor. ?? Use salt water sprays (saline sprays) to wet the thick fluid in your nose. This can help the sinuses drain. ?? Only take medicine as told by your doctor. GET HELP RIGHT AWAY IF: ?? Your pain gets worse. ?? You have very bad headaches. ?? You are sick to your stomach (nauseous). ?? You throw up (vomit). ?? You are very sleepy (drowsy) all the time. ?? Your face is puffy (swollen). ?? Your vision changes. ?? You have a stiff neck. ?? You have trouble breathing. MAKE SURE YOU: ?? Understand these instructions. ?? Will watch your condition. ?? Will get help right away if you are not doing well or get worse. Document Released: 10/13/2008 Document Revised: 01/19/2013 Document Reviewed: 11/30/2012 ExitCare?? Patient Information ??2014 [employer]. This information is not intended to replace advice given to you by your health care provider. Make sure you discuss any questions you have with your health care provider. 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 DELETE-Therapy completed 09/03/2015 09/04/2015 FLUoxetine (PROZAC) 10 mg Oral CapsuleIndications:Men opausal symptoms Take 1 Cap by mouth daily. DELETE-Therapy completed 03/02/2015 09/04/2015 loratadine-pseudoephed rine (LORATADINE-PSEUDOEPHE DRINE) 10-240 mg Oral Tablet Sustained Release 24 hr Take 1 Tab by mouth daily. DELETE-Therapy completed 09/01/2014 09/04/2015 documented as of this encounter Additional Health Concerns Assessment Noted Time A fall risk assessment has been complete d for the patient 03/02/2015 2:44 PM EDT PHQ-2 Depression Total Score: 1 09/04/19 16 11:00 AM EDT documented as of this encounter Care Teams Health Clinician Relationship Specialty Start Date End Date Mann Irene MD [address] [place] [address] PCP - General Internal Medicine 08/23/12 07/13/22 documented as of this encounter
--- OUTSIDE RECORDS SUMMARY | 2024-03-27 15:07 | XMS_ITS | Encounter Summary ---
Author Organization [place] [address] Care Team Providers Care Asset Management Analyst Name Role Phone Mann Irene MD Primary Care Provider [phone] Sujatha Goldman RN Unavailable Unavai lable Reason for Visit * Reason Onset Date Comments Care Transition 06/02/2014 Follow up Encounter Details Date Type Department Care Team (Late st Contact Info) Description 06/02/2014 Telephone [facility] [address] [place] [address] Sujatha Goldman, clinical nursing coordinator (Follow up) Social History Tobacco Use Types Packs/Day Years [...] Rhea Sainz RN documented in this encounter Miscellaneous Notes * Telephone Encounter - Elida Valentino CCMA - 06/02/2014 3:26 PM EST # for [facility] gastro given to pt. * Telephone Encounter - Mann Irene MD - 06/02/2014 2:28 PM EST Please just give her the number for Dr. Mann group to call and have this scheduled. * Telephone Encounter - Sujatha Goldman RN - 06/02/2014 1:56 PM EST Patient wanting to reschedule colonoscopy and referral. Stated she had cancelled it because of hip replacement surgery, would now like to reschedule it. Thanks documented in this encounter Plan of Treatment Upcoming Encounters Date Type Department Care Team (Late st Contact Info) Description 05/16/2024 9:30 AM EST Office Visit [facility] [address] [place] [phone] Gilda Francis PA [address] [place] [address] documented as of this encounter Visit Diagnoses Not on filedocumented in this encounter Care Teams Asset Management Analyst Relationship Specialty Start Date End Date Mann [place] [address] [place] [address] PCP - General Internal Medicine 08/23/12 07/13/22 Sujatha Goldman, RN Health Advocate Registered Nurse 02/28/1406/28 documented as of this encounter
--- OUTSIDE RECORDS SUMMARY | 2024-03-27 15:07 | XMS_ITS | Encounter Summary ---
Author Organization [place] [address] Care Team Providers Care Head Bander And Liner Operator Name Role Phone Mann Irene MD Primary Care Provider [phone] Reason for Referral * Consultation (Routine) - Closed Specialty Diagnoses / Procedures Referred By Ramona mcdaniel Referred To Contact Orthopaedic Surgery Diagnoses Osteoarthritis, unspecified osteoarthritis type, unspecified site Mann Irene MD [address] [place] [address] Phone: tel: fax: Bruce Oh MD [address] [place] [address] Phone: tel: fax: Referral ID Status Reason Start Date Expiration Date V isits Requested Visits Authorized [id number] Closed Continuity of Care 08/29/2015 08/28/2016 99 99 Reason for Visit * Reason Onset Date Comments Referral 08/29/2015 Encounter Details Date Type Department Care Team (Late st Contact Info) Description 08/29/2015 Telephone [facility] [place] [facility] [address] Mann Irene MD [address] [facility] [place] [address] (work) Referral Social History Tobacco Use Types Packs/Day [...] 02/20/2014 3:41 PM EDT Rhea Enrandez RN * Is the person blind or [...] Miscellaneous Notes * Telephone Encounter - Ninfa Waed RMA - 08/29/2015 1:48 PM EDT referral has been placed * Telephone Encounter - Julianna Franklin RMA - 08/29/2015 11:58 AM EDT Pt states that she needs a new referral for Dr. Oh at [facility]. She see's him every 3months for knee injections. Please advise. Thank you documented in this encounter Plan of Treatment Upcoming Encounters Date Type Department Care Team (Late st Contact Info) Description 05/16/2024 9:30 AM EST Office Visit [facility] [address] [place] [address] Glida Francis PA [address] [place] [address] Scheduled Referrals Name Type Priority Associated Diagnoses Orde r Schedule AMB REFERRAL TO ORTHOPEDIC SURGERY Outpatient Referral Routine Osteoarthritis, unspecified osteoarthritis type, unspecified site Ordered: 08/29/2015 documented as of this encounter Visit Diagnoses Diagnosis Osteoarthritis, unspecified osteoarthritis type, unspecified site- Primary documented in this encounter Additional Health Concerns Assessment Noted Time A fall risk assessment has been complete d for the patient 03/02/2015 2:44 PM EDT documented as of this encounter Care Teams Head Bander And Liner Operator Relationship Specialty Start Date End Date Mann Irene MD [address] [place] [address] PCP - General Internal Medicine 08/23/12 07/13/22 documented as of this encounter
--- OUTSIDE RECORDS SUMMARY | 2024-03-27 15:07 | XMS_ITS | Encounter Summary ---
Author Organization [place] [address] Care Team Providers Care Cardiac Exercise Physiologist Name Role Phone Mann Irene MD Primary Care Provider [phone] Reason for Visit * Reason Comments Diarrhea achey all over x 3 d ay Fever Emesis Encounter Details Date Type Department Care Team (Latest Contact Info) Description 07/30/2015 11:50 AM EDT Office Visit [facility] [place] [address] [address] Mann Irene [place] [address] [place] [address] Fever, unspecified fever cause (Primary Dx); Acute gastroenteritis Social History Tobacco Use Types Packs/Day Years [...] Sign Reading Time Taken Comments Blood Pressure 128/80 07/30/2015 11:53 AM EDT Pulse 84 07/30/2015 11:53 AM EDT Temperature 36.7 ??C (98 ??F) 07/30/2015 11:53 AM EDT Respiratory Rate 18 07/30/2015 11:53 AM EDT Oxygen Saturation 97% 07/30/2015 11:53 AM EDT Inhaled Oxygen Concentration - - Weight 83.5 kg (184 lb) 07/30/2015 11:53 AM EDT Height 162.6 cm (5' 4 ) 07/30/2015 11:53 AM EDT Body Mass Index 31.58 07/30/2015 11:53 AM EDT documented in this encounter [...] Last Filled Start Date End Date ondansetron (ZOFRAN) 4 mg Oral TabletIndications:Acu te gastroenteritis Take 1 Tab by mouth every 6 hours as needed for Nausea for up to 3 days. 12 Tab 0 07/30/201508/01/201 6 documented in this encounter Progress Notes * Mann Irene MD - 07/30/2015 12:21 PM EDT Stella Hylton is a 69 y.o. female Chief Complaint Patient presents with ??? Diarrhea achey all over x 3 day ??? Fever ??? Emesis HPI: As above. Diarrhea and fever for 3 days. Body aches and chills. No fevers. BP 128/80 mmHg Pulse 84 Temp(Src) 98 ??F (36.7 ??C) (Oral) Resp 18 Ht 5' 4 (1.626 m) Wt 184 lb (83.462 kg) BMI 31.57 kg/m2 SpO2 97% Health Maintenance Health Maintenance Topic Date Due ??? Colon Cancer Screening: Occult Blood 07/11/2015 ??? Annual Wellness Exam 09/02/2015 ??? Breast Cancer Screening 10/08/2015 ??? Colon Cancer Screening: Colonoscopy 07/10/2024 ??? Influenza Vaccine Completed ??? Pneumococcal Vaccine (Low risk) Completed Problem List Patient Active Problem List [...] TABLET EVERY DAY 90 Tab 1 ??? colchicine 0.6 mg Oral Tablet Take 2 pills now then 1 pill in 1 hour 3 Tab 0 ??? diclofenac (VOLTAREN) 75 mg Oral Tablet, Delayed Release (E.C.) Take 1 Tab by mouth 2 times daily (with meals). 180 Tab 1 ??? FLUoxetine (PROZAC) 10 mg Oral Capsule Take 1 Cap by mouth daily. 30 Cap 0 ??? loratadine-pseudoephedrine (LORATADINE-PSEUDOEPHEDRINE) 10-240 mg Oral Tablet Sustained [id number] hr Take 1 Tab by mouth daily. 90 Tab 5 ??? ondansetron (ZOFRAN) 4 mg Oral Tablet Take 1 Tab by mouth every 6 hours as needed for Nausea for up to 3 days. 12 Tab 0 No current facility-administered medications for this visit. Surgery History Past Surgical History Procedure Laterality Date ??? Hysterectomy ??? Hemorrhoid surgery ??? Lumbar disc surgery 11/03/2012 Surgeon: Elza Bautista MD; Location: [facility] OR; Service: ??? Hip arthroplasty Right 02/16/2014 RIGHT TOTAL HIP REPLACEMENT; Surgeon: Bruce Oh MD; Location: [facility] OR; Service: Orthopedics Social history History Social History ??? Marital Status: Spouse Name: N/A ??? Number of Children: N/A ??? Years of Education: N/A Social History Main Topics ??? Smoking status: Former Smoker -- 0.50 packs/day for 25 years Types: Cigarettes Quit date: 09/27/2014 ??? Smokeless tobacco: Never Used Comment: quit ~'06 ??? Alcohol Use: No ??? Drug Use: No ??? Sexual Activity: Not on file Other Topics Concern ??? None Social History Narrative Immunizations Immunization History Administered Date(s) Administered ??? Influenza High Dose 02/21/2015 ??? Influenza Vaccine, Unspecified Formulation 02/04/2014 ??? PPD Test 02/20/2014 ??? Pneumococcal Conjugate Vaccine 13 Valent 02/28/2015 ??? Pneumococcal Polysaccharide 23 Valent 10/13/2012 ??? Tdap 02/28/2015 ROS: No TIA's or unusual headaches, no dysphagia. No prolonged cough. No dyspnea or chest pain on exertion. No abdominal pain, change in bowel habits, black or bloody stools. No urinary tract symptoms. No new or unusual musculoskeletal symptoms. The physical exam is generally normal. Patient appears well, alert and oriented x 3, pleasant, cooperative. Vitals are as noted. Neck supple and free of adenopathy, or masses. No thyromegaly. TIMI. Ears, throat are normal. Lungs are clear to auscultation. Heart sounds are normal, no murmurs, clicks, gallops or rubs. Abdomen is soft, no tenderness,no masses. Normal bowel sounds. Neurologic exam is normal without focal findings. Skin is normal without suspicious lesions noted. Stella was seen today for diarrhea, fever and emesis. Diagnoses and all orders for this visit: Fever, unspecified fever cause Orders: - POCT Influenza A/B Acute gastroenteritis Orders: - ondansetron (ZOFRAN) 4 mg Oral Tablet; Take 1 Tab by mouth every 6 hours as needed for Nausea forup to 3 days. Results for orders placed or performed in visit on 07/30/15 POCT INFLUENZA A/B Result Value Ref Range Influenza A Ag neg Influenza B Ag neg Lot Number Expiration Date Symptomatic care. Encourage fluids. If a new medication was prescribed during [...] Office Visit [facility] [address] [place] [address] Gilda Francis PA [address] [place], [place] [id number] documented as of this encounter Procedures Procedure Name Priority Date/Time Associated Diagnosis Comments POCT INFLUENZA A/B Routine 07/30/2015 12 :16 PM EDT Fever, unspecified fever cause documented in this encounter Results * POCT INFLUENZA A/B (07/30/2015 12:16 PM EDT) Influenza A Ag neg SEP OFFICE Influenza B Ag neg SEP OFFICE Lot Number SEP OFFICE Expiration Date SEP OFFICE 07/30/2015 12:1 6 PM EDT us Mann Irene MD POINT OF CARE TEST ORDERABLES Final Result [facility] documented in this encounter Visit Diagnoses Diagnosis Fever, unspecified fever cause- Primary Acute gastroenteritis Other and unspecified noninfectious gastroenteritis and colitis documented in this encounter Additional Health Concerns Assessment Noted Time A fall risk assessment has been complete d for the patient 03/02/2015 2:44 PM EDT documented as of this encounter Care Teams Cardiac Exercise Physiologist Relationship Specialty Start Date End Date Mann Irene MD [address] [place] [address] PCP - General Internal Medicine 08/23/12 07/13/22 documented as of this encounter
--- OUTSIDE RECORDS SUMMARY | 2024-03-27 15:07 | XMS_ITS | Encounter Summary ---
Author Organization [place] [address] Care Team Providers Care Salesperson Floor Coverings Name Role Phone Mann Irene MD Primary Care Provider [phone] Reason for Visit * Reason Comments Medication Refill Encounter Details Date Type Department Care Team (Late st Contact Info) Description 12/22/2014 Refill [facility] [place] [address] [address] Mann Irene MD [...] times daily (with meals). 180 Tab 1 12/22/2014 6 atorvastatin (LIPITOR) 10 mg Oral Tablet TAKE 1 TABLET BY MOUTH DAILY. 90 Tab 1 12/22/2014 6 fluocinonide (LIDEX) 0.05 % Top Cream APPLY TOPICALLY DAILY FOR 10 DAYS. 60 g 0 12/22/2014 5 documented in this encounter Plan of Treatment Upcoming Encounters Date Type Department Care Team (Late st Contact Info) Description 05/16/2024 9:30 AM EST Office Visit [facility] [address] [place] [address] Gilda Francis PA [address] [place] [address] documented as of this encounter Visit Diagnoses Not on filedocumented in this encounter Discontinued Medications Medication Sig Discontinue Reason Start Date End Da te atorvastatin (LIPITOR) 10 mg Oral Tablet Take 1 tablet by mouth daily. Reorder 03/14/2014 12/22/2014 diclofenac (VOLTAREN) 75 mg Oral Tablet, Delayed Release (E.C.) Take 1 Tab by mouth 2 times daily (with meals). Reorder 08/10/2014 12/22/2014 documented as of this encounter Care Teams Salesperson Floor Coverings Relationship Specialty Start Date End Date Mann Irene MD [address] [place] [id number] PCP - General Internal Medicine 08/23/12 07/13/22 documented as of this encounter
--- OUTSIDE RECORDS SUMMARY | 2024-03-27 15:07 | XMS_ITS | Encounter Summary ---
Author Organization [place] [address] Care Team Providers Care Joint Machine Operator Name Role Phone Mann Irene MD Primary Care Provider Sujatha Goldman RN Unavailable Unavacharlee dong Reason for Visit * Reason Onset Date Comments Other 06/02/2014 Encounter Details Date Type Department Care Team (Late st Contact Info) Description 06/02/2014 Telephone [facility] [address] Mann Irene MD [address] [facility] [place] [address] Other Social History Tobacco Use Types Packs/Day [...] Encounter - Elida Valentino CCMA - 06/02/2014 9:53 AM EST Pt returning your call from yesterday. Please call when you have a minute. Thank you. documented in this encounter Plan of Treatment Upcoming Encounters Date Type Department Care Team (Late st Contact Info) Description 05/16/2024 9:30 AM EST Office Visit [facility] [address] [place] [address] Gilda Francis PA [address] [place] [address] documented as of this encounter Visit Diagnoses Not on filedocumented in this encounter Care Teams Joint Machine Operator Relationship Specialty Start Date End Date Mann Irene MD [address] [place] [address] PCP - General Internal Medicine 08/23/12 07/13/22 Sujatha Goldman, RN Health Advocate Registered Nurse 02/28/1406/28 documented as of this encounter
--- OUTSIDE RECORDS SUMMARY | 2024-03-27 15:07 | XMS_ITS | Encounter Summary ---
Author Organization [place] [address] Care Team Providers Care Orchardist Name Role Phone Mann Irene MD Primary Care Provider [phone] Palma Jj DO Primary Care Provider [phone] Olesya Estrada MILITARY COMMUNICATIONS SPECIALIST Unavailable Unava ilable Geraldine Whiteside RN Unavailable Unavailable Encounter Details Date Type Department Care Team (Late st Contact Info) Description 07/10/2014 Orders Only [facility] [address] [facility] [address] [place] [address] Edil Mann MD [address] [facility] [address] [place] [id number] Social History Tobacco Use Types Packs/Day Years [...] No 02/20/2014 3:41 PM EDRhea Peguero RN * Because of a physical, mental [...] Rhea Sainz RN documented in this encounter Plan of Treatment Upcoming Encounters Date Type Department Care Team (Late st Contact Info) Description 05/16/2024 9:30 AM EST Office Visit [facility] [address] [place] [address] Gilda Francis PA [address] [place] [address] documented as of this encounter Procedures Procedure Name Priority Date/Time Associated Diagnosis Comments GMED COLONOSCOPY Routine 07/10/2014 12:0 0 PM EST documented in this encounter Results * GMED COLONOSCOPY (07/10/2014 12:00 PM EST) 07/10/2014 12:0 0 PM EST Impressions [facility] - 07/10/2014 12:20 PM EST Polyp (3 mm) in the distal sigmoid colon. (Polypectomy). Plan: Follow-up as needed This section is an excerpt of the full report. 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
--- OUTSIDE RECORDS SUMMARY | 2024-03-27 15:07 | XMS_ITS | Encounter Summary ---
Author Organization [place] [address] Care Team Providers Care Soil Sort Worker Name Role Phone Mann Irene MD Primary Care Provider [phone] Reason for Visit * Reason Onset Date Comments Medication Refill 09/28/2015 Encounter Details Date Type Department Care Team (Late st Contact Info) Description 09/28/2015 Telephone [facility] [place] [address] [address] Mann Irene MD [place]TRY [facility] [place] [address] Medication Refill Social History Tobacco Use [...] Date atorvastatin (LIPITOR) 10 mg Oral Tablet Take 1 Tab by mouth daily. 90 Tab 1 09/28/2015 10/04/2015 documented in this encounter Miscellaneous Notes * Telephone Encounter - Brittany Slaughter CCMA - 09/28/2015 3:52 PM EDT done * Telephone Encounter - Melania Schwartz - 09/28/2015 3:15 PM EDT Pt is needing a refill on the atorvastatin. documented in this encounter Plan of Treatment Upcoming Encounters Date Type Department Care Team (Late st Contact Info) Description 05/16/2024 9:30 AM EST Office Visit [facility] [address] [place] [address] Gilda Francis PA [address] [place] [address] documented as of this encounter Visit Diagnoses Not on filedocumented in this encounter Discontinued Medications Medication Sig Discontinue Reason Start Date End Da te atorvastatin (LIPITOR) 10 mg Oral Tablet TAKE 1 TABLET EVERY DAY Reorder 05/14/2015 09/28/2015 documented as of this encounter Additional Health Concerns Assessment Noted Time A fall risk assessment has been complete d for the patient 03/02/2015 2:44 PM EDT PHQ-2 Depression Total Score: 1 09/04/19 16 11:00 AM EDT documented as of this encounter Care Teams Soil Sort Worker Relationship Specialty Start Date End Date Mann Irene MD [address] [place] [address] PCP - General Internal Medicine 08/23/12 07/13/22 documented as of this encounter
--- OUTSIDE RECORDS SUMMARY | 2024-03-27 15:07 | XMS_ITS | Encounter Summary ---
Author [place] [address] Care Team Providers Care Design Center Consultant Name Role Phone Mann Irene MD Primary Care Provider [phone] Reason for Referral * Consultation (Routine) - Closed Specialty Diagnoses / Procedures Referred By Contac t Referred To Contact Anesthesiologist Attending Diagnoses Eye exam, routine Procedures LA UNLISTED E/M SERVICE Mann [place] [address] [address] [place] [address] Phone: tel: fax: London Lao, OD [address] [place] [address] Phone: tel: fax: Referral ID Status Reason Start Date Expiration Date Visits Re quested Visits Authorized [id number] Closed 07/10/2015 07/09/2016 99 99 Reason for Visit * Reason Onset Date Comments Other 07/27/2015 [employer] O Refer ral Encounter Details Date Type Department Care Team (Late st Contact Info) Description 07/27/2015 Telephone [facility] [place] [address] Mann Irene MD COUNTRY [facility] [place] [address] Other ([employer] O Referral) Social History Tobacco Use Types Packs/Day Years [...] Telephone Encounter - Brittany Slaughter CCMA - 07/30/2015 5:28 PM EDT Referral entered * Telephone Encounter - Cheyanne Donovan - 07/27/2015 10:43 AM EDT Was seen today for annual eye exam by London Lao, optometry [address] [place] [id number] Can you enter referral so our referral dept will process thru insurance. documented in this encounter Plan of Treatment Upcoming Encounters Date Type Department Care Team (Late st Contact Info) Description 05/16/2024 9:30 AM EST Office Visit [facility] [address] [place] [address] Gilda Francis PA [address] [place] [address] Scheduled Referrals Name Type Priority Associated Diagnoses Order Schedule AMB REFERRAL TO OPHTHALMOLOGY Outpatient Referral Routine Eye exam, routine Ordered: 07/30/2015 documented as of this encounter Visit Diagnoses Diagnosis Eye exam, routine- Primary documented in this encounter Additional Health Concerns Assessment Noted Time A fall risk assessment has been complete d for the patient 03/02/2015 2:44 PM EDT documented as of this encounter Care Teams Design Center Consultant Relationship Specialty Start Date End Date Mann Irene MD [address] [place] [address] PCP - General Internal Medicine 08/23/12 07/13/22 documented as of this encounter
--- OUTSIDE RECORDS SUMMARY | 2024-03-27 15:07 | XMS_ITS | Encounter Summary ---
Author Organization [place] [address] Care Team Providers Care Telegraph Equipment Maintainer Name Role Phone Mann Irene MD Primary Care Provider [phone] Reason for Visit * Reason Comments Labs Only Encounter Details Date Type Department Care Team (Latest Contact Info) Description 01/23/2016 8:00 AM EDT Clinical Support [facility] [place] [address] [place] [address] Brittany Slaughter, [facility] [address] [place] [address] Hypercholesterolemia (Primary Dx) Social History Tobacco Use Types [...] Rhea Ernandez RN documented in this encounter Progress Notes * Brittany Slaughter CCMA - 01/23/2016 8:00 AM EDT Venipuncture in the right antecubital vein with 22 gauge needle, length 1 1/2 inch. one mint one purple documented in this encounter Plan of Treatment Upcoming Encounters Date Type Department Care Team (Late st Contact Info) Description 05/16/2024 9:30 AM EST Office Visit [facility] [address] [place] [address] Gilda Francis PA [address] [place] [address] Scheduled Orders Name Type Priority Associated Diagnoses Orde r Schedule [place] HANDLG&/OR CONVEY OF SPEC FOR TR OFFICE TO LAB [place] Charge Routine Hypercholesterolemia Ordered: 01/23/2016 documented as of this encounter Visit Diagnoses Diagnosis Hypercholesterolemia- Primary Pure hypercholesterolemia documented in this encounter Orders Charge Count Last Ordered Date First Orde red Date [place] COLLECTION VENOUS BLOOD,VENIPUNCTURE 1 0 01/23/2016 documented in this encounter Additional Health Concerns Assessment Noted Time A fall risk assessment has been complete d for the patient 03/02/2015 2:44 PM EDT PHQ-2 Depression Total Score: 1 09/04/19 16 11:00 AM EDT documented as of this encounter Care Teams Telegraph Equipment Maintainer Relationship Specialty Start Date End Date Mann Irene MD [address] [place] [address] PCP - General Internal Medicine 08/23/12 07/13/22 documented as of this encounter
--- OUTSIDE RECORDS SUMMARY | 2024-03-27 15:07 | XMS_ITS | Encounter Summary ---
Author Organization [facility] [place] [address] Care Team Providers Care Bench Chemist Name Role Phone Mann Irene MD Primary Care Provider [phone] Reason for Visit * Reason Comments Toe Pain x2 weeks; big toe on right foot; red, knot, warm to the touch Encounter Details Date Type Department Care Team (Late st Contact Info) Description 03/02/2015 2:30 PM EDT Office Visit [facility] [address] [place] [address] Stefania Oquendo MD Menopausal symptoms (Primary Dx); Acute idiopathic gout of right foot; Psoriasis Social History Tobacco Use Types Packs/Day Years Used Date Smoking Tobacco: Former Cigarettes 0.5 25 0 09/27/1989 - 09/27/2014 Smokeless Tobacco: Never Tobacco Cessation:Counseling Given: Yes Comments:quit ~'06 Alcohol Use Standard Drinks/Week Comments [...] Sign Reading Time Taken Comments Blood Pressure 138/76 03/02/2015 2:41 PM EDT Pulse 85 03/02/2015 2:41 PM EDT Temperature 36.7 ??C (98 ??F) 03/02/2015 2:41 PM EDT Respiratory Rate 18 03/02/2015 2:41 PM EDT Oxygen Saturation 95% 03/02/2015 2:41 PM EDT Inhaled Oxygen Concentration - - Weight 83.9 kg (185 lb) 03/02/2015 2:41 PM EDT Height 162.6 cm (5' 4 ) 03/02/2015 2:41 PM EDT Body Mass Index 31.76 03/02/2015 2:41 PM EDT documented in this encounter Functional [...] Refills Last Filled Start Date End Date triamcinolone (KENALOG) 0.1 % Top CreamIndications:P soriasis Apply topically 2 times daily for 10 days. 80 g 2 03/02/2015 5 colchicine 0.6 mg Oral TabletIndications: Acute idiopathic gout of right foot Take 2 pills now then 1 pill in 1 hour 3 Tab 0 03/02/2015 6 FLUoxetine (PROZAC) 10 mg Oral CapsuleIndications :Menopausal symptoms Take 1 Cap by mouth daily. 30 Cap 0 03/02/2015 6 documented in this encounter Progress Notes * Stefania Mendenhall MD - 03/02/2015 2:43 PM EDT Stella Hylton is a 69 y.o. female Chief Complaint Patient presents with ??? Toe Pain x2 weeks; big toe on right foot; red, knot, warm to the touch HPI: For past 2 weeks has been having pain in right big toe. Has gotten so bad that she can't stand to have a sheet touch it. No history of trauma. No history of gout. Also having symptoms of menopause especially hot flashes although she had a hysterectomy years ago.Had hysterectomy due to endometriosis. Also has a rash on left palm that she has been using cream PCP gave her but doesn't seem to be helping anymore. Patient Active Problem List Diagnosis ??? Hypercholesterolemia ??? OA (osteoarthritis)-s/p RIGHT TOTAL HIP REPLACEMENT 02/16/14. ??? Hypernatremia ??? Hip joint replacement by other means ??? Other physical therapy History Social History ??? Marital Status: Spouse Name: N/A Number of Children: N/A ??? Years of Education: N/A Occupational History ??? Not on file. Social History Main Topics ??? Smoking status: Former Smoker -- 0.50 packs/day for 25 years Types: Cigarettes Quit date: 09/27/2014 ??? Smokeless tobacco: Never Used Comment: quit ~'06 ??? Alcohol Use: No ??? Drug Use: No ??? Sexual Activity: Not on file Other Topics Concern ??? Not on file Social History Narrative ROS: A complete review of systems was obtained with all negative except as per HPI. Communication issues identified? none Health Maintenance: Health Maintenance Topic Date Due ??? Colon Cancer Screening: Occult Blood 07/11/2015 ??? Annual Wellness Exam 09/02/2015 ??? Breast Cancer Screening 10/08/2015 ??? Colon Cancer Screening: Colonoscopy 07/10/2024 ??? Influenza Vaccine Completed ??? Pneumococcal Vaccine (Low risk) Completed PHYSICAL EXAM BP 138/76 mmHg Pulse 85 Temp(Src) 98 ??F (36.7 ??C) (Oral) Resp 18 Ht 5' 4 (1.626 m) Wt 185 lb (83.915 kg) BMI 31.74 kg/m2 SpO2 95% The physical exam is generally normal except as below. Patient appears well, alert and oriented x 3, pleasant, cooperative. Vitals are as noted. Neck supple and free of adenopathy, or masses. No thyromegaly. TIMI. Ears are normal. Throat is normal with no erythema or exudates. Lungs are clear to auscultation. Heart sounds are normal, no murmurs, clicks, gallops or rubs. Abdomen is soft, no tenderness, masses or organomegaly. Normal bowel sounds. Extremities: peripheral pulses normal, no pedal edema, no clubbing or cyanosis. Right big toe is exquisitely tender to touch at 1st joint MTP joint. Neurologic exam is normal without focal findings. Skin is normal without suspicious lesions noted except rash consistent with psoriasis on left palm. Hospital Outpatient Visit on 09/01/2014 Component Date Value Ref Range Status ??? Sodium 09/01/2014 144 136 - 145 mmol/L Final ??? Potassium 09/01/2014 4.2 3.5 - 5.0 mmol/L Final ??? Chloride 09/01/2014 104 98 - 107 mmol/L Final ??? Total CO2 09/01/2014 28 22 - 29 mmol/L Final ??? Anion Gap 09/01/2014 12 7 - 16 mmol/L Final ??? Calcium 09/01/2014 9.4 8.8 - 10.2 mg/dL Final ??? Glucose Lvl 09/01/2014 98 82 - 100 mg/dL Final ??? BUN 09/01/2014 16 8 - 23 mg/dL Final ??? Creatinine 09/01/2014 0.69 0.51 - 1.30 mg/dL Final ? ? GFR Afr Am 09/01/2014 >60 Final ? ? GFR Non Afr Am 09/01/2014 >60 Final ??? WBC 09/01/2014 8.3 4.0 - 11.0 x10(3)/mcL Final ??? RBC 09/01/2014 4.80 3.80 - 5.10 x10(6)/mcL Final ??? Hgb 09/01/2014 13.7 12.0 - 15.6 gm/dL Final ??? Hct 09/01/2014 42.0 35.7 - 45.9 % Final ??? MCV 09/01/2014 87.4 82.5 - 99.8 fL Final ??? MCH 09/01/2014 28.4 27.0 - 34.3 pg Final ??? MCHC 09/01/2014 32.5 32.1 - 35.3 gm/dL Final ??? RDW 09/01/2014 14.3 11.5 - 15.0 % Final ??? Platelet 09/01/2014 322 144 - 423 x10(3)/mcL Final ??? MPV 09/01/2014 8.1 6.8 - 10.8 fL Final ? ? Cholesterol 09/01/2014 148 <=200 mg/dL Final Comment: < 200 Desirable 200 - 239 Borderline High >= 240 High ? ? Triglyceride 09/01/2014 77 <=150 mg/dL Final Comment: < 150 Normal 150 - 199 Borderline High 200 - 499 High >= 500 Very High ? ? HDL 09/01/2014 44 >=40 mg/dL Final Comment: > 60 Optimal 40 - 60 Acceptable < 40 Low ??? Neut Percent 09/01/2014 60.7 Final ??? Lymph Percent 09/01/2014 27.1 Final ??? Whitley Percent 09/01/2014 6.4 Final ??? Eos Percent 09/01/2014 4.8 Final ??? Baso Percent 09/01/2014 1.0 Final ??? Neut# 09/01/2014 5.0 1.8 - 7.7 x10(3)/mcL Final ??? Lymph# 09/01/2014 2.2 0.6 - 4.8 x10(3)/mcL Final ??? Whitley# 09/01/2014 0.5 0.0 - 1.3 x10(3)/mcL Final ??? Eos# 09/01/2014 0.4 0.0 - 0.5 x10(3)/mcL Final ??? Baso# 09/01/2014 0.1 0.0 - 0.2 x10(3)/mcL Final ? ? LDL Calculated 09/01/2014 89 <=100 mg/dL Final Comment: < 100 Optimal 100 - 129 Near or above optimal 130 - 159 Borderline High 160 - 189 High >= 190 Very High No results found for this visit on 03/02/15. Stella was seen today for toe pain. Diagnoses and associated orders for this visit: Menopausal symptoms - FLUoxetine (PROZAC) 10 mg Oral Capsule; Take 1 Cap by mouth daily. Acute idiopathic gout of right foot - Uric Acid - Clinic Collect; Future - colchicine 0.6 mg Oral Tablet; Take 2 pills now then 1 pill in 1 hour Psoriasis - triamcinolone (KENALOG) 0.1 % Top Cream; Apply topically 2 times daily for 10 days. Health Maintenance: There are no preventive care reminders to display for this patient. Health Maintenance reviewed - up to date at this time. If a new medication was prescribed during this office visit, I did discuss with the patient the [...] AVS and she is aware. I inquired the patient (and family if present) of any questions and answered accordingly. Return if symptoms worsen or fail to improve. patient was educated regarding the diagnosis, medications/treatment, goals, self-management tools and instructions based on their care plan. They verbalized full understanding of the education given on the After Visit Summary [AVS] for today's visit. They received a copy of the AVS in writing. Stefania Mendenhall MD documented in this encounter Miscellaneous Notes * Patient Instructions - Stefania Mendenhall MD - 03/02/2015 3:14 PM EDT Images from the original note were not included. Gout Gout is when your joints become red, sore, and swell (inflammed). This is caused by the buildup of uric acid crystals in the joints. Uric acid is a chemical that is normally in the blood. If the level of uric acid gets too high in the blood, these crystals form in your joints and tissues. Over time, these crystals can form into masses near the joints and tissues. These masses can destroy bone andcause the bone to look misshapen (deformed). HOME CARE ?? Do not take aspirin for pain. ?? Only take medicine as told by your doctor. ?? Rest the joint as much as you can. When in bed, keep sheets and blankets off painful areas. ?? Keep the sore joints raised (elevated). ?? Put warm or cold packs on painful joints. Use of warm or cold packs depends on which works best for you. ?? Use crutches if the painful joint is in your leg. ?? Drink enough fluids to keep your pee (urine) clear or pale yellow. Limit alcohol, sugary drinks,and drinks with fructose in them. ?? Follow your diet instructions. Pay careful attention to how much protein you eat. Include fruits, vegetables, whole grains, and fat-free or low-fat milk products in your daily diet. Talk to your doctor or manager psychology about the use of coffee, vitamin C, and cherries. These may help lower uric acid levels. ?? Keep a healthy body weight. GET HELP RIGHT AWAY IF: ?? You have watery poop (diarrhea), throw up (vomit), or have any side effects from medicines. ?? You do not feel better in 24 hours, or you are getting worse. ?? Your joint becomes suddenly more tender, and you have chills or a fever. MAKE SURE YOU: ?? Understand these instructions. ?? Will watch your condition. ?? Will get help right away if you are not doing well or get worse. Document Released: 02/03/2009 Document Revised: 08/22/2013 Document Reviewed: 08/05/2010 ExitCare?? Patient Information ??2015 [employer]. This information is not intended to replace advice given to you by your health care provider. Make sure you discuss any questions you have with your health care provider. documented in this encounter Plan of Treatment Upcoming Encounters Date Type Department Care Team (Late st Contact Info) Description 05/16/2024 9:30 AM EST Office Visit [facility] [address] [place] [id number] Gilda Francis PA [address] [place] [address] documented as of this encounter Results * URIC ACID (03/02/2015 3:22 PM EDT) Uric Acid 4.6 2.4 - 5.7 mg/dL [facility] Blood specimen (specimen) UPPER LIMB STRUCTURE / Unknown 03/02/2015 3:22 PM EDT 03/02/2015 9:30 PM EDT us Stefania Braun MD CHEMISTRY ORDERABLE S Final Result [facility] [address] [place] [address] documented in this encounter Visit Diagnoses Diagnosis Menopausal symptoms- Primary Symptomatic menopausal or female climacteric states Acute idiopathic gout of right foot Psoriasis Other psoriasis documented in this encounter Discontinued Medications Medication Sig Discontinue Reason Start Date End Da te LORATADINE-PSEUDOEPHE DRINE 10-240 mg Oral Tablet Sustained Release 24 hr TAKE ONE TABLET BY MOUTH ONCE A DAY DELETE-Therapy completed 11/28/2014 03/02/2015 predniSONE (DELTASONE) 20 mg Oral TabletIndications:Bro nchitis Take 3 pills by mouth X 3 days, then 2 pill X 3 days, then 1 pill X 3 days, then 1/2 pill X 4 days DELETE-Therapy completed 10/04/2014 03/02/2015 fluocinonide (LIDEX) 0.05 % Top Cream APPLY TOPICALLY DAILY FOR 10 DAYS. DELETE- Stopped by provider 01/18/2015 03/02/2015 documented as of this encounter Additional Health Concerns Assessment Noted Time A fall risk assessment has been complete d for the patient 03/02/2015 2:44 PM EDT documented as of this encounter Care Teams Bench Chemist Relationship Specialty Start Date End Date Mann Irene MD [address] [place] [id number] PCP - General Internal Medicine 08/23/12 07/13/22 documented as of this encounter
--- OUTSIDE RECORDS SUMMARY | 2024-03-27 15:07 | XMS_ITS | Encounter Summary ---
Author Organization [place] [address] Care Team Providers Care Dispatcher Service Name Role Phone Mann Irene MD Primary Care Provider [phone] Reason for Visit * Reason Comments Cough congestion, hoarsnes s, sore throat, sweats, started a few months ago when she was moved at work, lots of flour and keysel Encounter Details Date Type Department Care Team (Late st Contact Info) Description 10/04/2014 3:50 PM EDT Office Visit [facility] [place] [address] [place] [address] Stefania Oquendo MD Bronchitis (Primary Dx) Social History Tobacco Use Types [...] Sign Reading Time Taken Comments Blood Pressure 122/64 10/04/2014 5:07 PM EDT Pulse 102 10/04/2014 5:07 PM EDT Temperature 37 ??C (98.6 ??F) 10/04/2014 5:07 PM EDT Respiratory Rate - - Oxygen Saturation 95% 10/04/2014 5:07 PM EDT Inhaled Oxygen Concentration - - Weight 82.4 kg (181 lb 9.6 oz) 10/04/2014 5:07 P M EDT Height 161.3 cm (5' 3.5 ) 10/04/2014 5:07 PM EDT Body Mass Index 31.66 10/04/2014 5:07 PM EDT documented in this encounter Functional [...] Start Date End Date ciprofloxacin HCl (CIPRO) 500 mg Oral TabletIndications:B kishachitis Take 1 Tab by mouth 2 times daily for 10 days. 20 Tab 0 10/04/2014 10/14/2014 predniSONE (DELTASONE) 20 mg Oral TabletIndications:B ronchitis Take 3 pills by mouth X 3 days, then 2 pill X 3 days, then 1 pill X 3 days, then 1/2 pill X 4 days 20 Tab 0 10/04/2014 03/02/2015 documented in this encounter Progress Notes * Stefania Mendenhall MD - 10/04/2014 5:08 PM EDT Stella Hylton is a 69 y.o. female Chief Complaint Patient presents with ??? Cough congestion, hoarsness, sore throat, sweats, started a few months ago when she was moved at work, lots of flour and keysel HPI: Started a couple months ago. Taken cough meds, throat lounge. OTC cough meds. First time coming in.Coughing that is proudctive with thick white sputum. Hoarse. Runny nose sometimes. Sore throat. Body aches none. Subjective fevers. Works in cold environment. No smoking. Quit 10 years ago. Patient Active Problem List Diagnosis ??? Hypercholesterolemia [...] ??? Smokeless tobacco: Never Used Comment: quit ~06 ??? Alcohol Use: No ??? Drug Use: No ??? Sexual Activity: Not on file Other Topics Concern ??? Not on file Social History Narrative ROS: A complete review of systems was obtained with all negative except as per HPI. Communication issues identified? none Health Maintenance: Health Maintenance Topic Date Due ??? Influenza Vaccine (#1 of 1) 12/09/2014 ??? COLON CANCER SCREENING OCCULT BLOOD 07/11/2015 ??? ANNUAL WELLNESS EXAM 09/02/2015 ??? BREAST CANCER SCREENING 10/08/2015 ??? COLON CANCER SCREENING COLONOSCOPY 07/10/2024 ??? Pneumococcal Polysaccharide Vaccine Age 65 and Older Completed PHYSICAL EXAM BP 122/64 Pulse 102 Temp(Src) 98.6 ??F (37 ??C) (Oral) Ht 5' 3.5 (1.613 m) Wt 181 lb 9.6 oz (82.373 kg) BMI 31.66 kg/m2 SpO2 95% The physical exam is generally normal except as below. Patient appears mildly ill, alert and oriented x 3, pleasant, cooperative. Vitals are as noted. Neck supple and free of adenopathy, or masses. No thyromegaly. TIMI. Ears are normal except serous fluid. Throat is erythematous but otherwise normal. Nasal turbinates are boggy and erythematous. No sinus tenderness. Lungs are coarse with decreased aeration and some wheezing. After nebulizer treatment, aeration andwheezing had improved. Heart sounds are normal, no murmurs, clicks, gallops or rubs. Abdomen is soft, no tenderness, masses or organomegaly. Normal bowel sounds. Extremities: peripheral pulses normal, no pedal edema, no clubbing or cyanosis. Neurologic exam is normal without focal findings. Skin is normal without suspicious lesions noted. Hospital Outpatient Visit on 09/01/2014 Component Date [...] ??? Lymph Percent 09/01/2014 27.1 Final ??? [place] Percent 09/01/2014 6.4 Final ??? Eos Percent 09/01/2014 4.8 Final ??? Baso Percent 09/01/2014 1.0 Final ??? Neut# 09/01/2014 5.0 1.8 - 7.7 x10(3)/mcL Final ??? Lymph# 09/01/2014 2.2 0.6 - 4.8 x10(3)/mcL Final ??? [place]# 09/01/2014 0.5 0.0 - 1.3 x10(3)/mcL Final [...] No results found for this visit on 10/04/14. Stella was seen today for cough. Diagnoses and associated orders for this visit: Bronchitis - methylPREDNISolone acetate (DEPO-MEDROL) injection 80 mg; Inject 1 mL into the muscle once. - albuterol-ipratropium (DUO-NEB) 0.5 mg-3 mg(2.5 mg base)/3 mL nebulizer solution 3 mL; Take 3 mL by nebulization once. - predniSONE (DELTASONE) 20 mg Oral Tablet; Take 3 pills by mouth X 3 days, then 2 pill X 3 days, then 1 pill X 3 days, then 1/2 pill X 4 days - ciprofloxacin HCl (CIPRO) 500 mg Oral Tablet; Take 1 Tab by mouth 2 times daily for 10 days. Health [...] given on the AVS for today's visit. Stefania Mendenhall MD documented in this encounter Miscellaneous Notes * Patient Instructions - Stefania Mendenhall MD - 10/05/2014 4:27 PM EDT Images from the original note were not included. Bronchitis Bronchitis is a problem of the air tubes leading to your lungs. This problem makes it hard for air to get in and out of the lungs. You may cough a lot because your air tubes are narrow. Going withoutcare can cause lasting (chronic) bronchitis. HOME CARE ?? Drink enough fluids to keep your pee (urine) clear or pale yellow. ?? Use a cool mist humidifier. ?? Quit smoking if you smoke. If you keep smoking, the bronchitis might not get better. ?? Only take medicine as told by your doctor. GET HELP RIGHT AWAY IF: ?? Coughing keeps you awake. ?? You start to wheeze. ?? You become more sick or weak. ?? You have a hard time breathing or get short of breath. ?? You cough up blood. ?? Coughing lasts more than 2 weeks. ?? You have a fever. ?? Your baby is older than 3 months with a rectal temperature of 102?? F (38.9?? C) or higher. ?? Your baby is 3 months old or younger with a rectal temperature of 100.4?? F (38?? C) or higher. MAKE SURE YOU: ?? Understand these instructions. ?? Will watch your condition. ?? Will get help right away if you are not doing well or get worse. Document Released: 10/13/2008 Document Revised: 07/19/2012 Document Reviewed: 03/29/2010 ExitCare?? Patient Information ??2013 [employer]. documented in this encounter Plan of Treatment Upcoming Encounters Date Type Department Care Team (Late st Contact Info) Description 05/16/2024 9:30 AM EST Office Visit [facility] [address] [place] [id number] Gilda Francis PA [address] [place] [address] documented as of this encounter Visit Diagnoses Diagnosis Bronchitis- Primary Bronchitis, not specified as acute or chronic documented in this encounter Administered Medications Inactive Administered Medications - up to 1 most recent administrations Medication Order MAR Action Action Date Dose Rate Site methylPREDNISolone acetate (DEPO-MEDROL) injection 80 mg 80 mg, Intramuscular, ONCE, 1 dose, On Thu10/04/14 at 1745, Dx: 1. BronchitisIndications:Juan revelestis Given 10/04/2014 5:46 PM EDT 80 mg Right Upper Outer Quadrant documented in this encounter Orders Medications Ordered That [place] ht Not Have Been Administered Count Last Ordered Date First Ordered Date albuterol-ipratropium (DUO-N EB) 0.5 mg-3 mg(2.5 mg base)/3 mL nebulizer solution 3 mL 1 10/04/2014 documented in this encounter Care Teams Dispatcher Service Relationship Specialty Start Date End Date Mann Irene MD [address] [place] [phone] PCP - General Internal Medicine 08/23/12 07/13/22 documented as of this encounter
--- OUTSIDE RECORDS SUMMARY | 2024-03-27 15:07 | XMS_ITS | Encounter Summary ---
Author Organization [place] [address] Care Team Providers Care Rental Car Porter Name Role Phone Mann Irene MD Primary Care Provider Reason for Visit * Reason Onset Date Comments Care Transition 06/29/2014 follow up Encounter Details Date Type Department Care Team (Late st Contact Info) Description 06/29/2014 Patient Outreach [facility] [address] [place] [address] Sujatha Goldman RN Care Transition (follow up ) Social History Tobacco Use Types Packs/Day [...] encounter Miscellaneous Notes * Telephone Encounter - Sujatha Goldman RN - 06/29/2014 3:53 PM EST [facility] has maintained monthly contact with patient x 4 months. The patient's status continues to improve and monthly calls are no longer indicated. Will assign to MA. MARSHALL level 1 documented in this encounter Plan of Treatment Upcoming Encounters Date Type Department Care Team (Late st Contact Info) Description 05/16/2024 9:30 AM EST Office Visit [facility] [address] [place] [phone] Gilda Francis PA [address] [place] [address] documented as of this encounter Visit Diagnoses Not on filedocumented in this encounter Care Teams Rental Car Porter Relationship Specialty Start Date End Date Mann [place] [address] [address] [place] [address] PCP - General Internal Medicine 08/23/12 07/13/22 documented as of this encounter
--- OUTSIDE RECORDS SUMMARY | 2024-03-27 15:07 | XMS_ITS | Encounter Summary ---
Author Organization [place] [address] Care Team Providers Care Magnetic Prospecting Operator Name Role Phone Mann Irene MD Primary Care Provider [phone] Reason for Visit * Reason Comments Allergic Rhinitis would like to get a seasonal injection Encounter Details Date Type Department Care Team (Late st Contact Info) Description 01/08/2016 4:00 PM EDT Office Visit [facility] [address] [place] [address] Oralia Hall PA-C [address] [place] [address] [place] [address] Allergic rhinitis, seasonal (Primary Dx); Hyperlipidemia; Osteoarthritis, unspecified osteoarthritis type, unspecified site; Annual physical exam; Screening for cholesterol level; Screening for thyroid disorder Social History Tobacco Use Types Packs/Day Years [...] Reading Time Taken Comments Blood Pressure 138/72 01/08/2016 3:52 PM EDT Pulse 90 01/08/2016 3:52 PM EDT Temperature 36.6 ??C (97.9 ??F) 01/08/2016 3:52 PM ED T Respiratory Rate - - Oxygen Saturation 95% 01/08/2016 3:52 PM EDT Inhaled Oxygen Concentration - - Weight 85.7 kg (189 lb) 01/08/2016 3:52 PM EDT Height - - Body Mass Index 32.44 09/04/2015 11:14 AM EDT documented in this [...] Refills Last Filled Start Date End Date loratadine-pseudoeph edrine (LORATADINE-PSEUDOEP HEDRINE) 10-240 mg Oral Tablet Sustained Release 24 hrIndications:Allerg ic rhinitis, seasonal Take 1 Tab by mouth daily. 30 Tab 2 01/08/2016 7 diclofenac (VOLTAREN) 75 mg Oral Tablet, Delayed Release (E.C.)Indications:Os teoarthritis, unspecified osteoarthritis type, unspecified site Take 1 Tab by mouth 2 times daily (with meals). 180 Tab 1 01/08/2016 7 atorvastatin (LIPITOR) 10 mg Oral TabletIndications:Hy perlipidemia Take 1 Tab by mouth daily. 90 Tab 1 01/08/2016 7 documented in this encounter Progress Notes * Oralia Hall PA-C - 01/08/2016 3:50 PM EDT Stella Hylton is a 70 y.o. female Chief Complaint Patient presents with ??? Allergic Rhinitis would like to get a seasonal injection HPI: Patient needs annual BW and physical Patient has runny nose that is clear and cough. Cough is dry. No fevers. No headaches or facial pain. Patient is sneezing a lot. No N/V. Patient has had a little diarrhea. Patient would like steroid injection to help with this. Wt Readings from Last 3 Encounters: 01/08/16 189 lb (85.7 kg) 09/04/15 184 lb (83.5 kg) 07/30/15 184 lb (83.5 kg) Visit Vitals ??? BP 138/72 (BP Location: Left arm, Patient Position: Sitting) ??? Pulse 90 ??? Temp 97.9 ??F (36.6 ??C) (Oral) ??? Wt 189 lb (85.7 kg) ??? SpO2 95% ??? BMI 32.44 kg/m2 Health Maintenance Health Maintenance Topic Date Due ??? Colon Cancer Screening: Occult Blood 07/11/2015 ??? Annual Wellness Exam 09/02/2015 ??? Breast Cancer Screening 10/08/2015 ??? Influenza Vaccine (1) 01/10/2016 ??? Colon Cancer Screening: Colonoscopy 07/10/2024 ??? [...] loratadine-pseudoephedrine (LORATADINE-PSEUDOEPHEDRINE) 10-240 mg Oral Tablet Sustained [id number] hr Take 1 Tab by mouth daily. 30 Tab 2 Current Facility-Administered Medications Medication Dose Route Frequency Provider Last Rate Last Dose ??? betamethasone acetate-betamethasone sodium phosphate (CELESTONE) injection 6 mg 6 mg Intramuscular Once Oralia Hall PA-C Surgery History Past Surgical History Procedure Laterality Date ??? Hysterectomy ??? Hemorrhoid surgery ??? Lumbar disc surgery 11/03/2012 Surgeon: Elza Bautista MD; Location: [facility] MAIN OR; Service: ??? Hip arthroplasty Right 02/16/2014 RIGHT TOTAL HIP REPLACEMENT; Surgeon: Bruce Oh MD; Location: [facility] MAIN OR; Service: Orthopedics Social history Social [...] Polysaccharide 23 Valent 10/13/2012 ??? Tdap 02/28/2015 ROS No TIA's or unusual headaches, no dysphagia. No dyspnea or chest pain on exertion. No abdominal pain, Positive diarrhea, no black or bloody stools. No urinary tract symptoms. No new or unusual musculoskeletal symptoms. Physical The physical exam is generally normal. Patient [...] lesions noted. Stella was seen today for allergic rhinitis . Diagnoses and all orders for this visit: Allergic rhinitis, seasonal Orders: - loratadine-pseudoephedrine (LORATADINE-PSEUDOEPHEDRINE) 10-240 mg Oral Tablet Sustained Release 24 hr; Take 1 Tab by mouth daily. - betamethasone acetate-betamethasone sodium phosphate (CELESTONE) injection 6 mg; Inject 1 mL intothe muscle once. Hyperlipidemia Orders: - atorvastatin (LIPITOR) 10 mg Oral Tablet; Take 1 Tab by mouth daily. Osteoarthritis, unspecified osteoarthritis type, unspecified site Orders: - diclofenac (VOLTAREN) 75 mg Oral Tablet, Delayed Release (E.C.); Take 1 Tab by mouth 2 times daily (with meals). Annual physical exam Orders: - CBC; Future - Comprehensive Metabolic Panel; Future - Lipid Screen - Clinic Collect; Future - Thyroid Stimulating Hormone (TSH) - Lab Collect; Future Screening for cholesterol level Orders: - Lipid Screen - Clinic Collect; Future Screening for thyroid disorder Orders: - Thyroid Stimulating Hormone (TSH) - Lab Collect; Future Push fluids Return if symptoms worsen or fail to improve. IF a new medication was prescribed during this [...] given on the AVS for today's visit. Oralia Hall PA-C SUBJECTIVE: Stella Hylton is a 70 y.o. female presenting for an annual medicare wellness visit. Current Outpatient Prescriptions Medication Sig Dispense Refill [...] loratadine-pseudoephedrine (LORATADINE-PSEUDOEPHEDRINE) 10-240 mg Oral Tablet Sustained [id number] hr Take 1 Tab by mouth daily. 30 Tab 2 Current Facility-Administered Medications Medication Dose Route Frequency Provider Last Rate Last Dose ??? betamethasone acetate-betamethasone sodium phosphate (CELESTONE) injection 6 mg 6 mg Intramuscular Once Oralia Hall PA-C Patient Active Problem List Diagnosis ??? Hypercholesterolemia ??? OA (osteoarthritis)-s/p RIGHT TOTAL HIP REPLACEMENT 02/16/14. ??? Hypernatremia ??? Hip joint replacement by other means ??? Other physical therapy Past Medical History Diagnosis Date ??? Arthritis ??? Hyperlipidemia ??? Motion sickness Past Surgical History Procedure Laterality Date ??? Hysterectomy ??? Hemorrhoid surgery ??? Lumbar disc surgery 11/03/2012 Surgeon: Elza Bautista MD; Location: [facility] MAIN OR; Service: ??? Hip arthroplasty Right 02/16/2014 RIGHT TOTAL HIP REPLACEMENT; Surgeon: Bruce Oh MD; Location: [facility] MAIN OR; Service: Orthopedics Family History Problem Relation Age of Onset ??? Early Father ??? Early Sister ??? Early Brother ??? Anesth Problems Neg Hx Social History Substance Use Topics ??? Smoking status: Former Smoker Packs/day: 0.50 Years: 25.00 Types: Cigarettes Quit date: 09/27/2014 ??? Smokeless tobacco: Never Used Comment: quit ~'06 ??? Alcohol use No Allergies: Celecoxib Current Care Providers: Patient Care Team: Mann Irene MD as PCP - General (Internal Medicine) Depression Screening: In the past two weeks, how often have you felt down, depressed, or hopeless? None Fall Risk Screening: Have you had 2 or more falls in the past year or any fall with injuries within the past year? no Review of Systems: Gen: negative Eyes: negative ENT: Positive runny nose Endo: negative CV: negative Lungs: negative GI: Positive diarrhea : negative Hem: negative MS: negative Neuro: negative Psych: negative Health Maintenance Topic Date Due ??? Colon Cancer Screening: Occult Blood 07/11/2015 ??? Annual Wellness Exam 09/02/2015 ??? Breast Cancer Screening 10/08/2015 ??? Influenza Vaccine (1) 01/10/2016 ??? Colon Cancer Screening: Colonoscopy 07/10/2024 ??? Pneumococcal Vaccine (Low/Medium risk) 65+ Completed Health Maintenance Due Topic Date Due ??? Colon Cancer Screening: Occult Blood 07/11/2015 ??? Annual Wellness Exam 09/02/2015 ??? Breast Cancer Screening 10/08/2015 Lab Results Component Value Date WBC 8.3 09/01/2014 HGB 13.7 09/01/2014 HCT 42.0 09/01/2014 PLT 322 09/01/2014 CHOLESTEROL 148 09/01/2014 TRIG 77 09/01/2014 HDL 44 09/01/2014 LDLCALC 89 09/01/2014 ALT 13 09/26/2013 AST 12 09/26/2013 NA 144 09/01/2014 K 4.2 09/01/2014 CL 104 09/01/2014 CREATININE 0.69 09/01/2014 BUN 16 09/01/2014 CO2 28 09/01/2014 INR 1.01 02/09/2014 GLU 98 09/01/2014 Immunization History Administered Date(s) Administered ??? Influenza High Dose 02/21/2015 ??? Influenza Vaccine, Unspecified Formulation 02/04/2014 ??? PPD Test 02/20/2014 ??? Pneumococcal Conjugate Vaccine 13 Valent 02/28/2015 ??? Pneumococcal Polysaccharide 23 Valent 10/13/2012 ??? Tdap 02/28/2015 OBJECTIVE: Visit Vitals ??? BP 138/72 (BP Location: Left arm, Patient Position: Sitting) ??? Pulse 90 ??? Temp 97.9 ??F (36.6 ??C) (Oral) ??? Wt 189 lb (85.7 kg) ??? SpO2 95% ??? BMI 32.44 kg/m2 Body mass index is 32.44 kg/(m^2). Gen: in no apparent distress, well developed and well nourished, in no respiratory distress and acyanotic, alert and oriented times 3. Eyes: lids and lashes normal, conjunctivae and sclerae normal and pupils equal, round, reactive to light and accomodation. ENT: ENT exam normal, no neck nodes or sinus tenderness. Neck: nontender, no masses, no stridor. Lymph: Cervical, supraclavicular, and axillary nodes normal.. Resp: clear to auscultation and no wheezes or rales CV: normal rate, regular rhythm Abd: soft, non-tender : exam deferred Extrem: peripheral pulses normal Skin: warm and dry, no hyperpigmentation, vitiligo, or suspicious lesions Neuro: Grossly normal alert, oriented x3 speech: normal in context and clarity memory: intact grossly cranial nerves II-XII: intact motor strength: full proximally and distally no involuntary movements or tremors sensation: intact to vibration, pain, and light touch cerebellar: arxcct-sv-ityk and laxo-ze-rjcz intact gait: normal reflexes: full and symmetric plantar responses: downgoing bilaterally ASSESSMENT AND PLAN: Stella was seen today for allergic rhinitis . Diagnoses and all orders for this visit: Allergic rhinitis, seasonal Orders: - loratadine-pseudoephedrine (LORATADINE-PSEUDOEPHEDRINE) 10-240 mg Oral Tablet Sustained Release 24 hr; Take 1 Tab by mouth daily. - betamethasone acetate-betamethasone sodium phosphate (CELESTONE) injection 6 mg; Inject 1 mL intothe muscle once. Hyperlipidemia Orders: - atorvastatin (LIPITOR) 10 mg Oral Tablet; Take 1 Tab by mouth daily. Osteoarthritis, unspecified osteoarthritis type, unspecified site Orders: - diclofenac (VOLTAREN) 75 mg Oral Tablet, Delayed Release (E.C.); Take 1 Tab by mouth 2 times daily (with meals). Annual physical exam Orders: - CBC; Future - Comprehensive Metabolic Panel; Future - Lipid Screen - Clinic Collect; Future - Thyroid Stimulating Hormone (TSH) - Lab Collect; Future Screening for cholesterol level Orders: - Lipid Screen - Clinic Collect; Future Screening for thyroid disorder Orders: - Thyroid Stimulating Hormone (TSH) - Lab Collect; Future Recommended: return for routine annual checkups. Advanced directive: no documented in this encounter Miscellaneous Notes * Patient Instructions - Oralia Hall PA-C - 01/08/2016 4:07 PM EDT Images from the original note were not included. Allergies Allergies may happen from anything your body is sensitive to. This may be food, medicines, pollens,chemicals, and nearly anything around you in everyday life that produces allergens. An allergen is anything that causes an allergy producing substance. Heredity is often a factor in causing these problems. This means you may have some of the same allergies as your parents. Food allergies happen in all age groups. Food allergies are some of the most severe and life threatening. Some common food allergies are cow's milk, seafood, eggs, nuts, wheat, and soybeans. SYMPTOMS ?? Swelling around the mouth. ?? An itchy red rash or hives. ?? Vomiting or diarrhea. ?? Difficulty breathing. SEVERE ALLERGIC REACTIONS ARE LIFE-THREATENING. This reaction is called anaphylaxis. It can cause the mouth and throat to swell and cause difficulty with breathing and swallowing. In severe reactions only a trace amount of food (for example, peanut oil in a salad) may cause within seconds. Seasonal allergies occur in all age groups. These are seasonal because they usually occur during the same season every year. They may be a reaction to molds, grass pollens, or tree pollens. Other causes of problems are house dust mite allergens, pet dander, and mold spores. The symptoms often consist of nasal congestion, a runny itchy nose associated with sneezing, and tearing itchy eyes. There is often an associated itching of the mouth and ears. The problems happen when you come in contact with pollens and other allergens. Allergens are the particles in the air that the body reacts to with an allergic reaction. This causes you to release allergic antibodies. Through a chain of events, these eventually cause you to release histamine into the blood stream. Although it is meant to be protective to the body, it is this release that causes your discomfort. This is why you were given anti-histamines to feel better.?? If you are unable to pinpoint the offending allergen, it may be determined by skin or blood testing. Allergies cannot be cured but can be controlled with medicine. Hay fever is a collection of all or some of the seasonal allergy problems. It may often be treated with simple wrsf-acw-cpcmtwu medicine such as diphenhydramine. Take medicine as directed. Do not drink alcohol or drive while taking this medicine. Check with your caregiver or package insert for child dosages. If these medicines are not effective, there are many new medicines your caregiver can prescribe. Stronger medicine such as nasal spray, eye drops, and corticosteroids may be used if the first things you try do not work well. Other treatments such as immunotherapy or desensitizing injections can be used if all else fails. Follow up with your caregiver if problems continue. These seasonal allergiesare usually not life threatening. They are generally more of a nuisance that can often be handled using medicine. HOME CARE INSTRUCTIONS ?? If unsure what causes a reaction, keep a diary of foods eaten and symptoms that follow. Avoid foods that cause reactions. ?? If hives or rash are present: ?? Take medicine as directed. ?? You may use an anzt-efd-ftuhblz antihistamine (diphenhydramine) for hives and itching as needed. ?? Apply cold compresses (cloths) to the skin or take baths in cool water. Avoid hot baths or showers. Heat will make a rash and itching worse. ?? If you are severely allergic: ?? Following a treatment for a severe reaction, hospitalization is often required for closer follow-up. ?? Wear a medic-alert bracelet or necklace stating the allergy. ?? You and your family must learn how to give adrenaline or use an anaphylaxis kit. ?? If you have had a severe reaction, always carry your anaphylaxis kit or EpiPen?? with you. Use this medicine as directed by your caregiver if a severe reaction is occurring. Failure to do so couldhave a fatal outcome. SEEK MEDICAL CARE IF: ?? You suspect a food allergy. Symptoms generally happen within 30 minutes of eating a food. ?? Your symptoms have not gone away within 2 days or are getting worse. ?? You develop new symptoms. ?? You want to retest yourself or your child with a food or drink you think causes an allergic reaction. Never do this if an anaphylactic reaction to that food or drink has happened before. Only do this under the care of a caregiver. SEEK IMMEDIATE MEDICAL CARE IF: ?? You have difficulty breathing, are wheezing, or have a tight feeling in your chest or throat. ?? You have a swollen mouth, or you have hives, swelling, or itching all over your body. ?? You have had a severe reaction that has responded to your anaphylaxis kit or an EpiPen??. These reactions may return when the medicine has worn off. These reactions should be considered life threatening. MAKE SURE YOU: ?? Understand these instructions. ?? Will watch your condition. ?? Will get help right away if you are not doing well or get worse. Document Released: 07/21/2003 Document Revised: 08/22/2013 Document Reviewed: 12/25/2008 ExitCare?? Patient Information ??2015 [employer]. This information is not intended to replace advice given to you by your health care provider. Make sure you discuss any questions you have with your health care provider. documented in this encounter Plan of Treatment Upcoming Encounters Date Type Department Care Team (Late st Contact Info) Description 05/16/2024 9:30 AM EST Office Visit [facility] [address] [place] [id number] Gilda Francis PA [address] [place], [place] [id number] documented as of this encounter Results * THYROID STIMULATING HORMONE (01/23/2016 4:05 PM EDT) TSH 1.370 0.270 - 4.200 mcIU/mL [facility] Blood specimen (specimen) UPPER LIMB STRUCTURE / Unknown 01/23/2016 4:05 PM EDT 01/23/2016 4:58 PM EDT Oarlia Hall PA-C CHEMISTRY ORDERABL ES Final Result [facility] [address] [place] [address] * LIPID SCREEN (01/23/2016 4:05 PM EDT) Pathologist [facility] Cholesterol 162 <=200 mg/dL [facility] Comment: < 200 ?Desirable 200 - 239 ? Borderline High >= 240 ?High Triglyceride 94 <=150 mg/dL [facility] Comment: < 150 ? Normal 150 - 199 ?Borderline High 200 - 499 ?High ??>= 500 ? Very High HDL 45 >=40 mg/dL [facility] Comment: ?? > 60 ?Optimal 40 - 60 ?Acceptable ?? < 40 ?Low LDL Calculated 98 <=100 mg/dL [facility] Comment: ??< 100 ?Optimal 100 - 129 ? Near or above optimal 130 - 159 ? Borderline High 160 - 189 ? High >= 190 ?Very High Blood specimen (specimen) UPPER LIMB STRUCTURE / Unknown 01/23/2016 4:05 PM EDT 01/23/2016 4:58 PM EDT Oralia Hall PA-C CHEMISTRY ORDERABL ES Edited Result - Final Performing Organization Address [facility]/State/ZIP Co de Phone Number [facility] [address] [place] [address] * COMPREHENSIVE METABOLIC PANEL (01/23/2016 4:05 PM EDT) Pathologist [facility] Sodium 144 136 - 145 mmol/L [facility] Potassium 4.6 3.5 - 5.0 mmol/L [facility] Chloride 105 98 - 107 mmol/L [facility] Total CO2 28 22 - 29 mmol/L [facility] Anion Gap 11 7 - 16 mmol/L [facility] Calcium 9.4 8.8 - 10.2 mg/dL [facility] Glucose Lvl 95 82 - 100 mg/dL [facility] BUN 16 8 - 23 mg/dL [facility] Creatinine 0.72 0.51 - 1.30 mg/dL [facility] Albumin 4.3 3.2 - 4.6 gm/dL [facility] Total Protein 7.6 6.4 - 8.3 gm/dL [facility] Bili Total 0.4 0.1 - 1.3 mg/dL [facility] AST 12 <=40 IU/L [facility] ALT 11 <=41 IU/L [facility] Alk Phos 103 35 - 104 IU/L [facility] GFR Afr Am >60 [facility] GFR Non Afr Am >60 [facility] Blood specimen (specimen) UPPER LIMB STRUCTURE / Unknown 01/23/2016 4:05 PM EDT 01/23/2016 4:58 PM EDT Oralia Hall PA-C CHEMISTRY ORDERABL ES Edited Result - Final [facility] [address] [place] [address] * CBC (01/23/2016 4:05 PM EDT) WBC 9.8 4.0 - 11.0 x10(3)/mcL [facility] RBC 4.79 3.80 - 5.10 x10(6)/mcL [facility] Hgb 13.8 12.0 - 15.6 gm/dL [facility] Hct 41.8 35.7 - 45.9 % [facility] MCV 87.3 82.5 - 99.8 fL [facility] MCH 28.9 27.0 - 34.3 pg [facility] MCHC 33.1 32.1 - 35.3 gm/dL [facility] RDW 14.4 11.5 - 15.0 % [facility] Platelet 328 144 - 423 x10(3)/mcL [facility] MPV 8.2 6.8 - 10.8 fL [facility] Blood specimen (specimen) UPPER LIMB STRUCTURE / Unknown 01/23/2016 4:05 PM EDT 01/23/2016 4:58 PM EDT Oralia Hall PA-C HEMATOLOGY ORDERAB LES Final Result [facility] [address] [place] [address] documented in this encounter Visit Diagnoses Diagnosis Allergic rhinitis, seasonal- Primary Allergic rhinitis, cause unspecified Hyperlipidemia Other and unspecified hyperlipidemia Osteoarthritis, unspecified osteoarthritis type, unspecified site Annual physical exam Routine general medical examination at a health care facility Screening for cholesterol level Screening for lipoid disorders Screening for thyroid disorder documented in this encounter Discontinued Medications Medication Sig Discontinue Reason Start Date End Da te atorvastatin (LIPITOR) 10 mg Oral Tablet Take 1 Tab by mouth daily. Reorder 10/04/2015 01/08/2016 diclofenac (VOLTAREN) 75 mg Oral Tablet, Delayed Release (E.C.) Take 1 Tab by mouth 2 times daily (with meals). Reorder 10/04/2015 01/08/2016 documented as of this encounter Orders Medications Ordered That [place] ht Not Have Been Administered Count Last Ordered Date First Ordered Date betamethasone acetate-betame thasone sodium phosphate (CELESTONE) injection 6 mg 1 01/08/2016 documented in this encounter Additional Health Concerns Assessment Noted Time A fall risk assessment has been complete d for the patient 03/02/2015 2:44 PM EDT PHQ-2 Depression Total Score: 1 09/04/19 16 11:00 AM EDT documented as of this encounter Care Teams Magnetic Prospecting Operator Relationship Specialty Start Date End Date Mann [place] [address] [place] [address] PCP - General Internal Medicine 08/23/12 07/13/22 documented as of this encounter
--- OUTSIDE RECORDS SUMMARY | 2024-03-27 15:07 | XMS_ITS | Encounter Summary ---
Author Organization [place] [address] Care Team Providers Care Assembler Faucets Name Role Phone Mann Irene MD Primary Care Provider [phone] Sujatha Goldman RN Unavailable Unavai lable Reason for Visit * Reason Onset Date Comments Care Transition 06/01/2014 Follow up call Encounter Details Date Type Department Care Team (Late st Contact Info) Description 06/01/2014 Patient Outreach [facility] [address] [place] [address] Sujatha Goldman, pharmacist (Follow up call) Social History Tobacco Use Types Packs/Day [...] Telephone Encounter - Sujatha Goldman RN - 06/01/2014 4:24 PM EST Returned patients call. ?? Contact made with patient add who is listed on the [facility] for continuation in transitions in care. ?? Patient reports that they are feeling good today. Patient stated she's doing good. She's returning back to work on 06/12/2014. ?? Patient reports that they are taking all medications as instructed. Patient reports that they are not taking medications for the following reason(s): N/A ?? Patient voices no complaints at this time. Contact information reviewed and instructed patient to call [facility] or office with any concerns. Verbalized understanding ?? Education provided on the following-Keeping all follow up appointments and take medication as directed ?? Barriers to health and well-being not identified ?? Referrals and /or community needs were not identified ??? Will continue to follow up with patient monthly basis and as needed. 05 minutes spent in discussion related to plan of care documented in this encounter Plan of Treatment Upcoming Encounters Date Type Department Care Team (Late st Contact Info) Description 05/16/2024 9:30 AM EST Office Visit [facility] [address] [place] [address] Gilda Francis PA [address] [place] [address] documented as of this encounter Visit Diagnoses Not on filedocumented in this encounter Care Teams Assembler Faucets Relationship Specialty Start Date End Date Mann [place] [address] [place] [address] PCP - General Internal Medicine 08/23/12 07/13/22 Sujatha Goldman, RN [facility] Registered Nurse 02/28/1406/28 documented as of this encounter
--- OUTSIDE RECORDS SUMMARY | 2024-03-27 15:07 | XMS_ITS | Encounter Summary ---
Author Organization [place] [address] Care Team Providers Care Shoe Ironer Name Role Phone Mann Irene MD Primary Care Provider [phone] Reason for Visit * Reason Onset Date Comments Other 09/03/2015 Encounter Details Date Type Department Care Team (Late st Contact Info) Description 09/03/2015 Telephone [facility]P Bon[facility] [place] [address] [address] Mann Irene MD [facility] [place] [address] Other Social History Tobacco Use Types [...] Refills Last Filled Start Date End Date benzonatate (TESSALON) 100 mg Oral Capsule Take 1 Cap by mouth 3 times daily as needed for Cough for up to 7 days. 21 Cap 0 09/03/2015 09/04/2015 documented in this encounter Miscellaneous Notes * Telephone Encounter - Keisha Gan - 09/03/2015 1:47 PM EDT Pt scheduled an appt for tomorrow with che * Telephone Encounter - Keisha Gan - 09/03/2015 1:35 PM EDT LM on to call back re: work note * Telephone Encounter - Brittany Slaughter CCMA - 09/03/2015 1:15 PM EDT Medication sent to pharmacy but can not authorize work note that long, can give one for today if she likes * Telephone Encounter - Bryanna Lyon - 09/03/2015 11:27 AM EDT Wants something for cough, also wants a note for work for being off work Thursday -. She would like to see Dr. Irene, but I didn't know his schedule documented in this encounter Plan of Treatment Upcoming Encounters Date Type Department Care Team (Late st Contact Info) Description 05/16/2024 9:30 AM EST Office Visit [facility] [address] [place] [phone] Gilda Francis PA [address] [place] [address] documented as of this encounter Visit Diagnoses Not on filedocumented in this encounter Additional Health Concerns Assessment Noted Time A fall risk assessment has been complete d for the patient 03/02/2015 2:44 PM EDT documented as of this encounter Care Teams Shoe Ironer Relationship Specialty Start Date End Date Mann Irene MD [address] [place] [address] PCP - General Internal Medicine 08/23/12 07/13/22 documented as of this encounter
--- OUTSIDE RECORDS SUMMARY | 2024-03-27 15:07 | XMS_ITS | Encounter Summary ---
Author Organization [place] [address] Care Team Providers Care Tape Maker Name Role Phone Mann Irene MD Primary Care Provider [phone] Sujatha Goldman RN Unavailable Unavai lable Reason for Visit * Reason Comments Elevated Blood Pressure W/o Dx Of Htn 18 early today, addy chest pain Dizziness Nausea Encounter Details Date Type Department Care Team (Late st Contact Info) Description 05/10/2014 1:00 PM EST Office Visit SEP Boni [facility] [place] [address] Mark Rosas MD [address] [facility] [place] [address] Viral illness (Primary Dx); Elevated BP Social History Tobacco Use Types Packs/Day Years [...] Sign Reading Time Taken Comments Blood Pressure 162/80 05/10/2014 12:38 PM EST Pulse 74 05/10/2014 12:38 PM EST Temperature 36.6 ??C (97.8 ??F) 05/10/2014 12:[address] Respiratory Rate 16 05/10/2014 12:38 PM EST Oxygen Saturation 97% 05/10/2014 12:38 PM EST Inhaled Oxygen Concentration - - Weight 84.4 kg (186 lb) 05/10/2014 12:38 PM EST Height 160 cm (5' 3 ) 05/10/2014 12:38 PM EST Body Mass Index 32.95 05/10/2014 12:38 PM EST documented in this encounter Functional [...] Filled Start Date End Date promethazine (PHENERGAN) 25 mg Oral TabletIndications: Viral illness Take 1 Tab by mouth every 6 hours as needed for Nausea for up to 10 days. 30 Tab 1 05/10/2014 05/20/2014 documented in this encounter Progress Notes * Mark Rosas MD - 05/10/2014 12:40 PM EST Subjective: Patient ID: Stella Hylton is a 68 y.o. female. Chief Complaint Patient presents with ??? Elevated Blood Pressure W/o Dx Of Htn 183/96 early today, addy chest pain ??? Dizziness ??? Nausea HPI No previous hx of HTN. Today feels ill with nausea and emesis. Has had some diarrhea. No head ache or body aches. Has had a runny nose. No fever or cough Denies chest pain and sob and focal neural symptoms. BP Readings from Last 3 Encounters: 05/10/14 162/80 04/28/14 128/70 03/06/14 130/70 Patients past medical, family and social histories were reviewed and updated. There were no changesexcept as noted. Review of Systems Objective: Filed Vitals: 05/10/14 1238 BP: 162/80 Pulse: 74 Temp: 97.8 ??F (36.6 ??C) TempSrc: Oral Resp: 16 Height: 5' 3 (1.6 m) Weight: 186 lb (84.369 kg) SpO2: 97% Body mass index is 32.96 kg/(m^2). Physical Exam NAD PERRL EOMI CTA B RR no murmur ABD soft nontender non distended No C/C/E Non focal neuro exam Assessment and Plan: Stella was seen today for elevated blood pressure w/o dx of htn, dizziness and nausea. Diagnoses and associated orders for this visit: Viral illness Comments: symptomatic care - promethazine (PHENERGAN) 25 mg Oral Tablet; Take 1 Tab by mouth every 6 hours as needed for Nausea for up to 10 days. Elevated BP Comments: monitor and report No Follow-up on file. Discussed diet and exercise see AVS Educated patient regarding the care plan and instructions listed on the After Visit Summary [AVS] for today's visit. The patient verbalized full understanding of the care plan and instructions given on the AVS for today's visit. documented in this encounter Miscellaneous Notes * Patient Instructions - Alethea Whiteside MA - 05/10/2014 12:40 PM EST 1. Count calories: Can look up on [employer]. Goal 1500 calories per day. 2. No [...] food and physical activity. Information courtesy of [employer] Document Released: 05/16/2008 Document Re-Released: 08/03/2008 ExitCare?? Patient Information ??2009 [employer] DASH Diet The DASH diet stands for Dietary Approaches to Stop Hypertension. It is a healthy eating plan that has been shown to reduce high blood pressure (hypertension) in as little as 14 days, while also possibly providing other significant health benefits. These other health benefits include reducing the risk of breast cancer after menopause and reducing the risk of type 2 diabetes, heart disease, colon cancer, and stroke. Health benefits also include weight loss and slowing kidney failure in patients with chronic kidney disease. DIET GUIDELINES ?? Limit salt (sodium). Your diet should contain less than 1500 mg of sodium daily. ?? Limit refined or processed carbohydrates. Your diet should include mostly whole grains. Dessertsand added sugars should be used sparingly. ?? Include small amounts of heart-healthy fats. These types of fats include nuts, oils, and tub margarine. Limit saturated and trans fats. These fats have been shown to be harmful in the body. CHOOSING FOODS The following food groups are based on a 2000 calorie diet. See your Registered Dietitian for individual calorie needs. Grains and Grain Products (6 to 8 servings daily) ?? Eat More Often: Whole-wheat bread, brown rice, whole-grain or wheat pasta, quinoa, popcorn without added fat or salt (air popped). ?? Eat Less Often: White bread, white pasta, white rice, cornbread. Vegetables (4 to 5 servings daily) ?? Eat More Often: Fresh, frozen, and canned vegetables. Vegetables may be raw, steamed, roasted, or grilled with a minimal amount of fat. ?? Eat Less Often/Avoid: Creamed or fried vegetables. Vegetables in a cheese sauce. Fruit (4 to 5 servings daily) ?? Eat More Often: All fresh, canned (in natural juice), or frozen fruits. Dried fruits without added sugar. One hundred percent fruit juice (?? cup [237 mL] daily). ?? Eat Less Often: Dried fruits with added sugar. Canned fruit in light or heavy syrup. Lean Meats, Fish, and Poultry (2 servings or less daily. One serving is 3 to 4 oz [85-114 g]). ?? Eat More Often: Ninety percent or leaner ground beef, tenderloin, sirloin. Round cuts of beef, chicken breast, turkey breast. All fish. [place], bake, or broil your meat. Nothing should be fried. ?? Eat Less Often/Avoid: Fatty cuts of meat, turkey, or chicken leg, thigh, or wing. Fried cuts of meat or fish. Dairy (2 to 3 servings) ?? Eat More Often: Low-fat or fat-free milk, low-fat plain or light yogurt, reduced-fat or part-skim cheese. ?? Eat Less Often/Avoid: Milk (whole, 2%).??Whole milk yogurt. Full-fat cheeses. Nuts, Seeds, and Legumes (4 to 5 servings per week) ?? Eat More Often: All without added salt. ?? Eat Less Often/Avoid: Salted nuts and seeds, canned beans with added salt. Fats and Sweets (limited) ?? Eat More Often: Vegetable oils, tub margarines without trans fats, sugar-free gelatin. Mayonnaise and salad dressings. ?? Eat Less Often/Avoid: Coconut oils, palm oils, butter, stick margarine, cream, half and half, cookies, candy, pie. FOR MORE INFORMATION The Dash Diet Eating Plan: www.dashdiet.org Document Released: 04/15/2012 Document Revised: 07/19/2012 Document Reviewed: 04/15/2012 ExitCare?? Patient Information ??2013 [employer]. documented in this encounter Plan of Treatment Upcoming Encounters Date Type Department Care Team (Late st Contact Info) Description 05/16/2024 9:30 AM EST Office Visit [facility] [address] [place] [phone] Gilda Francis PA [address] [place], [place] [phone] documented as of this encounter Visit Diagnoses Diagnosis Viral illness- Primary Unspecified viral infection, in conditions classified elsewhere and of unspecified site Elevated BP Elevated blood pressure reading without diagnosis of hypertension documented in this encounter Care Teams Tape Maker Relationship Specialty Start Date End Date Mann [place] [address] [place] [id number] PCP - General Internal Medicine 08/23/12 07/13/22 Sujatha Goldman, RN Health Advocate Registered Nurse 02/28/1406/28 documented as of this encounter
--- OUTSIDE RECORDS SUMMARY | 2024-03-27 15:07 | XMS_ITS | Encounter Summary ---
Author Organization [place] [address] Care Team Providers Care Electrical Continuity Tester Name Role Phone Mann Irene MD Primary Care Provider [phone] Reason for Visit * Reason Comments Medication Refill Encounter Details Date Type Department Care Team (Late st Contact Info) Description 11/27/2014 Refill [facility] [place] [address] Mann [place] [address] [address] [place] [address] Medication Refill Social History Tobacco Use [...] Refills Last Filled Start Date End Date LORATADINE-PSEUDOE PHEDRINE 10-240 mg Oral Tablet Sustained Release 24 hr TAKE ONE TABLET BY MOUTH ONCE A DAY 30 Tab 4 11/28/2014 03/02/2015 documented in this encounter Plan of Treatment Upcoming Encounters Date Type Department Care Team (Late st Contact Info) Description 05/16/2024 9:30 AM EST Office Visit [facility] [address] [place] [phone] Gilda Francis PA [address] [place] [address] documented as of this encounter Visit Diagnoses Not on filedocumented in this encounter Care Teams Electrical Continuity Tester Relationship Specialty Start Date End Date Mann Irene MD [address] [place] [address] PCP - General Internal Medicine 08/23/12 07/13/22 documented as of this encounter
--- OUTSIDE RECORDS SUMMARY | 2024-03-27 15:07 | XMS_ITS | Encounter Summary ---
Author Organization [place] [address] Care Team Providers Care Correctional Sergeant Name Role Phone Mann Irene MD Primary Care Provider [phone] Sujatha Goldman RN Unavailable Unavacharlee dong Reason for Visit * Reason Onset Date Comments Reschedule 06/02/2014 Encounter Details Date Type Department Care Team (Late st Contact Info) Description 06/02/2014 Telephone SEP G[facility] [address] [facility] [address] [place] [address] Edil Mann MD [address] [place], [place] [phone] Reschedule Social History Tobacco Use Types Packs/Day Years [...] encounter Miscellaneous Notes * Telephone Encounter - Lou Mena - 06/07/2014 4:17 PM EST PT SAID SHE IS RETURNING YOUR CALL FROM THIS MORNING? SAID IT MAY BE ABOUT ANTIBIOTICS. I DIDN'T SEE ANYTHING BUT WASN'T SURE. THANK YOU. * Telephone Encounter - Erma Poon RMA - 06/06/2014 9:24 AM EST SPOKE WITH PT, R/S TO 07/10/14 DDC AT 12 PM WITH PDW. PT TO P/U PREP AND INSTRUCTIONS. * Telephone Encounter - Erma Poon RMA - 06/06/2014 9:15 AM EST LM FOR PT TO CB. * Telephone Encounter - Edil Mann MD - 06/02/2014 4:32 PM EST Ampicillin 2 gms IV prior to procedure. * Telephone Encounter - Erma Poon RMA - 06/02/2014 4:16 PM EST PT HAD R THR IN February [address] WALKER, SHE WANTS TO R/S HER COLON. WHAT ABX WOULD YOU LIKE FORHER TO HAVE IF ANY? * Telephone Encounter - Fabiola Walker RN - 06/02/2014 3:49 PM EST IT WOULD ONLY REQUIRE ANTIBIOTICS IF IT IS WITH IN THE LAST 6 MONTHS. BY THE TIME SHE GETS SCHEDULED FOR A SCREENING IT WILL BE PAST THAT. * Telephone Encounter - Erma Poon RMA - 06/02/2014 3:36 PM EST PT WANTS TO R/S F/U COLON FROM January, BUT SHE HAD R THR IN February 2014. DOES PDW WANT TO ADD ABX? * Telephone Encounter - Selma Trevino - 06/02/2014 3:31 PM EST Needs to rs scope from jan. documented in this encounter Plan of Treatment Upcoming Encounters Date Type Department Care Team (Late st Contact Info) Description 05/16/2024 9:30 AM EST Office Visit [facility] [address] [place] [address] Gilda Francis PA [address] [place] [address] documented as of this encounter Visit Diagnoses Not on filedocumented in this encounter Care Teams Correctional Sergeant Relationship Specialty Start Date End Date Mann Irene MD [address] [place] [address] PCP - General Internal Medicine 08/23/12 07/13/22 Sujatha Goldman, RN Health Advocate Registered Nurse 02/28/1406/28 documented as of this encounter
--- OUTSIDE RECORDS SUMMARY | 2024-03-27 15:07 | XMS_ITS | Encounter Summary ---
Author Organization [place] [address] Care Team Providers Care Car Clerk Pullman Name Role Phone Mann Irene MD Primary Care Provider [phone] Reason for Visit * Reason Onset Date Comments Medication Refill 10/04/2015 Encounter Details Date Type Department Care Team (Late st Contact Info) Description 10/04/2015 Telephone [facility] Bon[facility] [place] [address] Mann Ireen MD [address] [place] [address] Medication Refill Social [...] Tab by mouth daily. 90 Tab 1 10/04/2015 01/08/2016 diclofenac (VOLTAREN) 75 mg Oral Tablet, Delayed Release (E.C.) Take 1 Tab by mouth 2 times daily (with meals). 180 Tab 1 10/04/2015 01/08/2016 documented in this encounter Miscellaneous Notes * Telephone Encounter - Brittany Slaughter CCMA - 10/04/2015 11:42 AM EDT done * Telephone Encounter - Melania Schwartz - 10/04/2015 9:50 AM EDT Patient is needing refills on the diclofenac and atorvastatin. Please send to [facility]. documented in this encounter Plan of Treatment Upcoming Encounters Date Type Department Care Team (Late st Contact Info) Description 05/16/2024 9:30 AM EST Office Visit [facility] [address] [place] [address] Gilda Francis PA [address] [place] [address] documented as of this encounter Visit Diagnoses Not on filedocumented in this encounter Discontinued Medications Medication Sig Discontinue Reason Start Date End Da te diclofenac (VOLTAREN) 75 mg Oral Tablet, Delayed Release (E.C.) Take 1 Tab by mouth 2 times daily (with meals). Reorder 12/22/2014 10/04/2015 atorvastatin (LIPITOR) 10 mg Oral Tablet Take 1 Tab by mouth daily. Reorder 09/28/2015 10/04/2015 documented as of this encounter Additional Health Concerns Assessment Noted Time A fall risk assessment has been complete d for the patient 03/02/2015 2:44 PM EDT PHQ-2 Depression Total Score: 1 09/04/19 16 11:00 AM EDT documented as of this encounter Care Teams Car Clerk Pullman Relationship Specialty Start Date End Date Mann [place] [address] [place] [address] PCP - General Internal Medicine 08/23/12 07/13/22 documented as of this encounter
--- OUTSIDE RECORDS SUMMARY | 2024-03-27 15:07 | XMS_ITS | Encounter Summary ---
Author Organization [place] [address] Care Team Providers Care Manager Of Hospital Name Role Phone Mann Irene MD Primary Care Provider [phone] Reason for Visit * Reason Onset Date Comments Medication Refill 08/10/2014 Encounter Details Date Type Department Care Team (Late st Contact Info) Description 08/10/2014 Refill SE[facility] Bon[facility] [place] [address] [address] Mann Irene MD [...] 02/20/2014 3:41 PM EDRhea Peguero RN * Does this person have serious [...] times daily (with meals). 180 Tab 1 08/10/2014 12/22/2014 documented in this encounter Plan of Treatment Upcoming Encounters Date Type Department Care Team (Late st Contact Info) Description 05/16/2024 9:30 AM EST Office Visit [facility] [address] [place] [phone] Gilda Francis PA [address] [place] [address] documented as of this encounter Visit Diagnoses Not on filedocumented in this encounter Discontinued Medications Medication Sig Discontinue Reason Start Date End Da te diclofenac (VOLTAREN) 75 mg Oral Tablet, Delayed Release (E.C.) Take 1 Tab by mouth 2 times daily (with meals). Reorder 08/09/2014 08/10/2014 documented as of this encounter Care Teams Manager Of Hospital Relationship Specialty Start Date End Date Mann [place] [address] [place] [address] PCP - General Internal Medicine 08/23/12 07/13/22 documented as of this encounter
--- OUTSIDE RECORDS SUMMARY | 2024-03-27 15:07 | XMS_ITS | Encounter Summary ---
Author Organization [place] Address [facility] [place] [address] Care Team Providers Care Furnace Helper Name Role Phone Mann Irene MD Primary Care Provider [phone] Encounter Details Date Type Department Care Team (Latest Contact Info) Description 09/01/2014 6:01 PM EDT - 09/01/2014 11:59 PM EDT Hospital Encounter [facility] PROCESSING Veronique [facility] [address] [place] [facility]17 Well adult exam Discharge Disposition: Home or Self Care Social [...] Take 81 mg by mouth daily. 9 fluocinonide (LIDEX) 0.05 % Top CreamIndications :Hand dermatitis Apply topically daily for 10 days. 60 g 0 09/01/2014 5 documented as of this encounter Discharge Disposition Disposition Code Departure Means Destination Home or Self Care documented in this encounter Plan of Treatment Upcoming Encounters Date Type Department Care Team (Late st Contact Info) Description 05/16/2024 9:30 AM EST Office Visit [facility] [address] [place] [address] Gilda Francis PA [address] [place] [address] documented as of this encounter Procedures Procedure Name Priority Date/Time Associated Diagnosis Comments LDL, CALCULATED Routine 09/01/2014 9:01 AM EDT LIPID PANEL REFLEX Routine 09/01/2014 9: 01 AM EDT Well adult exam DIFFERENTIAL Routine 09/01/2014 9:01 AM EDT CBC WITH DIFF Routine 09/01/2014 9:01 AM EDT Well adult exam BASIC METABOLIC PANEL Routine 09/01/2014 9:01 AM EDT Well adult exam documented in this encounter Results * LDL, CALCULATED (09/01/2014 9:01 AM EDT) LDL Calculated 89 <=100 mg/dL [facility] Comment: ??< 100 ?Optimal 100 - 129 ? Near or above optimal 130 - 159 ? Borderline High 160 - 189 ? High >= 190 ?Very High Blood specimen (specimen) 09/01/2014 9:01 AM EDT 09/01/2014 7:00 PM EDT Mann Irene MD CHEMISTRY ORDERABLES Final Res ult Performing Organization Address [facility] de Phone Number [facility] [address] [place] [address] * DIFFERENTIAL (09/01/2014 9:01 AM EDT) Pathologist [facility] Neut Percent 60.7 % SE LAB Lymph Percent 27.1 % SE LAB Glynn Percent 6.4 % SE LAB Eos Percent 4.8 % SE LAB Baso Percent 1.0 % [facility] Neut# 5.0 1.8 - 7.7 x10(3)/mcL [facility] Lymph# 2.2 0.6 - 4.8 x10(3)/mcL [facility] Glynn# 0.5 0.0 - 1.3 x10(3)/mcL [facility] Eos# 0.4 0.0 - 0.5 x10(3)/mcL [facility] Baso# 0.1 0.0 - 0.2 x10(3)/mcL [facility] Blood specimen (specimen) 09/01/2014 9:01 AM EDT 09/01/2014 7:00 PM EDT Mann Irene MD HEMATOLOGY ORDERABLES Final Re sult Performing Organization Address [facility]/ZIP Co de Phone Number [facility] [address] [place] [address] * LIPID PANEL REFLEX (09/01/2014 9:01 AM EDT) Cholesterol 148 <=200 mg/dL [facility] Comment: < 200 ?Desirable 200 - 239 ? Borderline High >= 240 ?High Triglyceride 77 <=150 mg/dL [facility] Comment: < 150 ? Normal 150 - 199 ?Borderline High 200 - 499 ?High ??>= 500 ? Very High HDL 44 >=40 mg/dL [facility] Comment: ?? > 60 ?Optimal 40 - 60 ?Acceptable ?? < 40 ?Low Blood specimen (specimen) UPPER LIMB STRUCTURE / Unknown 09/01/2014 9:01 AM EDT 09/01/2014 7:00 PM EDT us Mann Irene MD CHEMISTRY ORDERABLES Edited Re sult - Final [facility] [address] [place] [address] * CBC WITH AUTO DIFF (09/01/2014 9:01 AM EDT) Pathologist [facility] WBC 8.3 4.0 - 11.0 x10(3)/mcL [facility] RBC 4.80 3.80 - 5.10 x10(6)/mcL [facility] Hgb 13.7 12.0 - 15.6 gm/dL [facility] Hct 42.0 35.7 - 45.9 % [facility] MCV 87.4 82.5 - 99.8 fL [facility] MCH 28.4 27.0 - 34.3 pg [facility] MCHC 32.5 32.1 - 35.3 gm/dL [facility] RDW 14.3 11.5 - 15.0 % [facility] Platelet 322 144 - 423 x10(3)/mcL [facility] MPV 8.1 6.8 - 10.8 fL SE [facility] Blood specimen (specimen) UPPER LIMB STRUCTURE / Unknown 09/01/2014 9:01 AM EDT 09/01/2014 7:00 PM EDT Mann Irene MD HEMATOLOGY ORDERABLES Final Re shermant Performing Organization Address [facility] Co de Phone Number [facility] [address] [place] [address] * BASIC METABOLIC PANEL (09/01/2014 9:01 AM EDT) Sodium 144 136 - 145 mmol/L [facility] Potassium 4.2 3.5 - 5.0 mmol/L [facility] Chloride 104 98 - 107 mmol/L [facility] Total CO2 28 22 - 29 mmol/L [facility] Anion Gap 12 7 - 16 mmol/L [facility] Calcium 9.4 8.8 - 10.2 mg/dL [facility] Glucose Lvl 98 82 - 100 mg/dL [facility] BUN 16 8 - 23 mg/dL [facility] Creatinine 0.69 0.51 - 1.30 mg/dL [facility] GFR Afr Am >60 [facility] GFR Non Afr Am >60 [facility] Blood specimen (specimen) UPPER LIMB STRUCTURE / Unknown 09/01/2014 9:01 AM EDT 09/01/2014 7:00 PM EDT Mann Irene MD CHEMISTRY ORDERABLES Edited Re sult - Final Performing Organization Address [facility] Co de Phone Number [facility] [address] [place] [address] documented in this encounter Visit Diagnoses Diagnosis Well adult exam Routine general medical examination at a health care facility documented in this encounter Care Teams Furnace Helper Relationship Specialty Start Date End Date Mann Irene [place] [address] [place] [address] PCP - General Internal Medicine 08/23/12 07/13/22 documented as of this encounter
--- OUTSIDE RECORDS SUMMARY | 2024-03-27 15:07 | XMS_ITS | Encounter Summary ---
Author Organization [place] [address] Care Team Providers Care Nuclear Scientist Name Role Phone Mann Irene MD Primary Care Provider [phone] Sujatha Goldman RN Unavailable Cate dong Reason for Referral * Consultation (Routine) - Closed Specialty Diagnoses / Procedures Referred By Contac t Referred To Contact Diagnoses Foot pain, unspecified laterality Mann Irene MD [place] [facility] [place] [address] Phone: tel: fax: Bruce Alejandra, DPTomi [address] [place] [address] Phone: tel: fax: Referral ID Status Reason Start Date Expiration Date Visits Re quested Visits Authorized [id number] Closed 05/15/2014 05/15/2015 99 [phone] Reason for Visit * Reason Onset Date Comments Referral 05/15/2014 Encounter Details Date Type Department Care Team (Late st Contact Info) Description 05/15/2014 Telephone [facility] [place] [address] Mann Irene MD [place] [facility] [place] [address] Referral Social History Tobacco [...] Telephone Encounter - Brittany Slaughter CCMA - 05/15/2014 3:47 PM EST Referral enetered * Telephone Encounter - Julianna Franklin Elver - 05/15/2014 3:21 PM EST Pt needs a referral for [facility] [place] for some foot issues thatshe has been having. Pt has an appt on 05/17 at 10 am Thank you! documented in this encounter Plan of Treatment Upcoming Encounters Date Type Department Care Team (Late st Contact Info) Description 05/16/2024 9:30 AM EST Office Visit [facility] [address] [place] [address] Gilda Francis PA [address] [place] [address] Scheduled Referrals Name Type Priority Associated Diagnoses Orde r Schedule AMB REFERRAL TO PODIATRY Outpatient Referral Routine Foot pain, unspecified laterality Ordered: 05/15/2014 documented as of this encounter Visit Diagnoses Diagnosis Foot pain, unspecified laterality- Primary documented in this encounter Care Teams Nuclear Scientist Relationship Specialty Start Date End Date Mann Irene MD [address] [place] [address] PCP - General Internal Medicine 08/23/12 07/13/22 Sujatha Goldman, RN Health Advocate Registered Nurse 02/28/1406/28 documented as of this encounter
--- OUTSIDE RECORDS SUMMARY | 2024-03-27 15:07 | XMS_ITS | Encounter Summary ---
Author Organization [place] [address] Care Team Providers Care Night Custodian Name Role Phone Mann Irene MD Primary Care Provider [phone] Encounter Details Date Type Department Care Team (Late st Contact Info) Description 03/12/2015 Orders Only [facility] [address] [place] [address] Stefania Oquendo MD Pain of toe of right foot (Primary Dx) Social History Tobacco Use Types [...] Rhea Ernandez RN documented in this encounter Plan of Treatment Upcoming Encounters Date Type Department Care Team (Late st Contact Info) Description 05/16/2024 9:30 AM EST Office Visit [facility] [address] [place] [phone] Gilda Francis PA [address] [place] [address] Scheduled Orders Name Type Priority Associated Diagnoses Orde r Schedule XR FOOT RIGHT AP LATERAL AND OBLIQUE Imaging Routine Pain of toe of right foot 1 Occurrences starting 03/12/2015 until 03/12/2016 documented as of this encounter Visit Diagnoses Diagnosis Pain of toe of right foot- Primary Pain in limb documented in this encounter Additional Health Concerns Assessment Noted Time A fall risk assessment has been complete d for the patient 03/02/2015 2:44 PM EDT documented as of this encounter Care Teams Night Custodian Relationship Specialty Start Date End Date Mann Irene MD [address] [place] [address] PCP - General Internal Medicine 08/23/12 07/13/22 documented as of this encounter
--- OUTSIDE RECORDS SUMMARY | 2024-03-27 15:07 | XMS_ITS | Encounter Summary ---
Author Organization [place] [address] Care Team Providers Care Casing Finisher And Stuffer Name Role Phone Mann Irene MD Primary Care Provider [phone] Reason for Visit * Reason Onset Date Comments Reschedule 07/07/2014 Encounter Details Date Type Department Care Team (Late st Contact Info) Description 07/07/2014 Telephone [facility] [address] [facility] [address] [place] [address] Edil Mann MD [address] [place] [address] Reschedule Social History Tobacco Use Types Packs/Day [...] Miscellaneous Notes * Telephone Encounter - Erma Poon RMA - 07/07/2014 10:05 AM EST PT CALL BACK, WILL KEEP HER ORIGINAL APPT FOR 07/10/14 DDC WITH PDW. * Telephone Encounter - Erma Poon RMA - 07/07/2014 8:53 AM EST SPOKE WITH PT, SHE NEEDS TO CHECK WITH INTERACTIVE WEB DEVELOPER TO SEE WHAT DAYS AND TIME IS BEST FOR HER AN WILL CB. * Telephone Encounter - Lou Negron - 07/07/2014 8:45 AM EST Pt needs to resched, needs an appt after 1. documented in this encounter Plan of Treatment Upcoming Encounters Date Type Department Care Team (Late st Contact Info) Description 05/16/2024 9:30 AM EST Office Visit [facility] [address] [place] [address] Gilda Francis PA [address] [place] [address] documented as of this encounter Visit Diagnoses Not on filedocumented in this encounter Care Teams Casing Finisher And Stuffer Relationship Specialty Start Date End Date Mann Irene MD [address] [place] [address] PCP - General Internal Medicine 08/23/12 07/13/22 documented as of this encounter
--- OUTSIDE RECORDS SUMMARY | 2024-03-27 15:07 | XMS_ITS | Encounter Summary ---
Author Organization [place] [address] Care Team Providers Care Runway Model Name Role Phone Mann Irene MD Primary Care Provider [phone] Reason for Visit * Reason Onset Date Comments Illness 07/30/2015 Encounter Details Date Type Department Care Team (Late st Contact Info) Description 07/30/2015 Telephone [facility] [place] [address] [address] Mann Irene MD [place] [facility] [place] [address] Illness Social History Tobacco Use Types Packs/Day Years [...] Miscellaneous Notes * Telephone Encounter - Jill Elizabeth RMA - 07/30/2015 9:47 AM EDT Scheduled. * Telephone Encounter - Mann Irene MD - 07/30/2015 9:42 AM EDT 11:50 * Telephone Encounter - Julianna Franklin RMA - 07/30/2015 9:25 AM EDT Pt requesting an appt today for chills/sweats, nausea, vomiting and diarrhea since Thursday. Where toput? Thank you. Willing to see Dr. ESCOBEDO or Dr. Irene today. documented in this encounter Plan of Treatment Upcoming Encounters Date Type Department Care Team (Late st Contact Info) Description 05/16/2024 9:30 AM EST Office Visit [facility] [address] [place] [phone] Gilda Francis PA [address] [place] [address] documented as of this encounter Visit Diagnoses Not on filedocumented in this encounter Additional Health Concerns Assessment Noted Time A fall risk assessment has been complete d for the patient 03/02/2015 2:44 PM EDT documented as of this encounter Care Teams Runway Model Relationship Specialty Start Date End Date Mann Irene MD [address] [place] [address] PCP - General Internal Medicine 08/23/12 07/13/22 documented as of this encounter
--- OUTSIDE RECORDS SUMMARY | 2024-03-27 15:07 | XMS_ITS | Encounter Summary ---
Author Organization [place] [address] Care Team Providers Care Management Technician Name Role Phone Mann Irene MD Primary Care Provider [phone] Reason for Visit * Reason Comments Annual Exam per [employer] Encounter Details Date Type Department Care Team (Late st Contact Info) Description 09/01/2014 8:20 AM EDT Office Visit [facility] [place] [facility] [place] [address] [place] [address] Mann [place] [address] [address] [place] [address] Well adult exam (Primary Dx); Hand dermatitis; Hip joint replacement by other means; Hypercholesterolemia Social History Tobacco Use Types Packs/Day [...] Sign Reading Time Taken Comments Blood Pressure 136/76 09/01/2014 8:28 AM EDT Pulse 76 09/01/2014 8:28 AM EDT Temperature 36.8 ??C (98.2 ??F) 09/01/2014 8:28 AM ED T Respiratory Rate 16 09/01/2014 8:28 AM EDT Oxygen Saturation 98% 09/01/2014 8:28 AM EDT Inhaled Oxygen Concentration - - Weight 83.9 kg (185 lb) 09/01/2014 8:28 AM EDT Height 160 cm (5' 3 ) 09/01/2014 8:28 AM EDT Body Mass Index 32.77 09/01/2014 8:28 AM EDT documented in this encounter Functional [...] Refills Last Filled Start Date End Date fluocinonide (LIDEX) 0.05 % Top CreamIndications:H and dermatitis Apply topically daily for 10 days. 60 g 0 09/01/2014 5 loratadine-pseudoe phedrine (LORATADINE-PSEUDO EPHEDRINE) 10-240 mg Oral Tablet Sustained Release 24 hr Take 1 Tab by mouth daily. 90 Tab 5 09/01/2014 6 documented in this encounter Progress Notes * Jill Beck - 09/01/2014 9:04 AM EDT Venipuncture in the right antecubital vein with 21 gauge needle, length 1 1/2 inch. * Mann Irene MD - 09/01/2014 8:28 AM EDT SUBJECTIVE: Stella Hylton is a 68 y.o. female presenting for an annual medicare wellness visit. Current Outpatient Prescriptions Medication Sig Dispense Refill ??? loratadine-pseudoephedrine (LORATADINE-PSEUDOEPHEDRINE) 10-240 mg Oral Tablet Sustained Glmrzml83 hr Take 1 Tab by mouth daily. 90 Tab 5 ??? diclofenac (VOLTAREN) 75 mg Oral Tablet, Delayed Release (E.C.) Take 1 Tab by mouth 2 times daily (with meals). 180 Tab 1 ??? aspirin 81 mg Oral Tablet, Delayed Release (E.C.) Take 81 mg by mouth daily. ??? atorvastatin (LIPITOR) 10 mg Oral Tablet Take 1 tablet by mouth daily. 90 tablet 1 ??? fluocinonide (LIDEX) 0.05 % Top Cream Apply topically daily for 10 days. 60 g 0 No current facility-administered medications for this visit. Here for routine checkup. No acute complaints. Needs meds refilled. Patient Active Problem List Diagnosis ??? Hypercholesterolemia ??? OA (osteoarthritis)-s/p RIGHT TOTAL HIP REPLACEMENT 02/16/14. ??? Hypernatremia ??? Hip joint replacement by other means ??? Other physical therapy Past Medical History Diagnosis Date ??? Arthritis ??? Motion sickness ??? Hyperlipidemia Past Surgical History Procedure Laterality Date ??? Hysterectomy ??? Hemorrhoid surgery ??? Lumbar disc surgery 11/03/2012 Surgeon: Elza Bautista MD; Location: [facility] MAIN OR; Service: ??? Hip arthroplasty Right 02/16/2014 RIGHT TOTAL HIP REPLACEMENT; Surgeon: Bruce Oh MD; Location: [facility] MAIN OR; Service: Orthopedics Family History Problem Relation Age of Onset ??? Early Father ??? Early Sister ??? Early Brother ??? Anesth Problems Neg Hx History Substance Use Topics ??? Smoking status: Former Smoker -- 0.50 packs/day for 25 years Types: Cigarettes ??? Smokeless tobacco: Never Used Comment: quit ~'06 ??? Alcohol Use: No Allergies: Celecoxib Current Care Providers: Patient [...] of Systems: Gen: negative Eyes: negative ENT: negative Endo: negative CV: negative Lungs: negative GI: negative : negative Hem: negative MS: negative Neuro: negative Psych: negative Health Maintenance Topic Date Due ??? ANNUAL WELLNESS EXAM 09/26/2014 ??? Influenza Vaccine (#1 of 1) 12/09/2014 ??? COLON CANCER SCREENING OCCULT BLOOD 07/11/2015 ??? BREAST CANCER SCREENING 10/08/2015 ??? COLON CANCER SCREENING COLONOSCOPY 07/10/2024 ??? Pneumococcal Polysaccharide Vaccine Age 65 and Older Completed There are no preventive care reminders to display for this patient. Lab Results Component Value Date WBC 10.5 02/24/2014 HGB 10.7* 02/24/2014 HCT 32.3* 02/24/2014 PLT 436* 02/24/2014 CHOLESTEROL 168 09/26/2013 TRIG 96 09/26/2013 HDL 47 09/26/2013 LDLCALC 102* 09/26/2013 ALT 13 09/26/2013 AST 12 09/26/2013 NA 136 02/24/2014 K 3.5 02/24/2014 CL 100 02/24/2014 CREATININE 0.59 02/24/2014 BUN 8 02/24/2014 CO2 30* 02/24/2014 INR 1.01 02/09/2014 GLU 101* 02/24/2014 Immunization History Administered Date(s) Administered ??? Influenza Vaccine, Unspecified Formulation 02/04/2014 ??? PPD Test 02/20/2014 ??? Pneumococcal Polysaccharide 23 Valent 10/13/2012 OBJECTIVE: BP 136/76 Pulse 76 Temp(Src) 98.2 ??F (36.8 ??C) (Oral) Resp 16 Ht 5' 3 (1.6 m) Wt 185 lb (83.915 kg) BMI 32.78 kg/m2 SpO2 98% Body mass index is 32.78 kg/(m^2). Gen: in no apparent distress and well developed and well nourished. Eyes: lids and lashes normal and conjunctivae and sclerae normal. ENT: ENT exam normal, no neck nodes or sinus tenderness. Neck: nontender, no nuchal rigidity. Lymph: Cervical, supraclavicular, and axillary nodes normal.. Resp: clear to auscultation CV: normal rate, regular rhythm, normal S1, S2, no murmurs, rubs, clicks or gallops Abd: soft, non-tender, without masses or organomegaly : exam deferred Extrem: peripheral pulses normal, no pedal edema, no clubbing or cyanosis Skin: warm and dry, no hyperpigmentation, vitiligo, or suspicious lesions. Dry eczematous patches both palms of hands. Neuro: Grossly normal alert, oriented x3 speech: normal in context and clarity memory: intact grossly cranial nerves II-XII: intact motor strength: full proximally and distally no involuntary movements or tremors sensation: intact to vibration, pain, and light touch cerebellar: ymcegd-bo-shbv and pmub-uy-qpgk intact gait: normal reflexes: full and symmetric plantar responses: downgoing bilaterally ASSESSMENT AND PLAN: Stella was seen today for annual exam. Diagnoses and associated orders for this visit: Well adult exam - Basic Metabolic Panel - Clinic Collect; Future - CBC with Auto Diff - Clinic Collect; Future - Lipid Panel Reflex - Clinic Collect; Future - [place] HANDLG&/OR CONVEY OF SPEC FOR TR OFFICE TO LAB - [place] COLLECTION VENOUS BLOOD,VENIPUNCTURE Hand dermatitis - fluocinonide (LIDEX) 0.05 % Top Cream; Apply topically daily for 10 days. - methylPREDNISolone acetate (DEPO-MEDROL) injection 40 mg; Inject 1 mL into the muscle once. Hip joint replacement by other means Hypercholesterolemia Other Orders - loratadine-pseudoephedrine (LORATADINE-PSEUDOEPHEDRINE) 10-240 mg Oral Tablet Sustained Release 24 hr; Take 1 Tab by mouth daily. Recommended: continue current medications, continue current healthy lifestyle patterns and return for routine annual checkups. Advanced directive: no documented in this encounter Plan of Treatment Upcoming Encounters Date Type Department Care Team (Late st Contact Info) Description 05/16/2024 9:30 AM EST Office Visit [facility] [address] [place] [address] Gilda Francis PA [address] [place] [address] Scheduled Orders Name Type Priority Associated Diagnoses Orde r Schedule [place] HANDLG&/OR CONVEY OF SPEC FOR TR OFFICE TO LAB [place] Charge Routine Well adult exam Ordered: 09/01/2014 documented as of this encounter Results * LIPID PANEL REFLEX (09/01/2014 9:01 AM EDT) Cholesterol 148 <=200 mg/dL [facility] Comment: < 200 ?Desirable 200 - 239 ? Borderline High >= 240 ?High Triglyceride 77 <=150 mg/dL [facility] Comment: < 150 ? Normal 150 - 199 ?Borderline High 200 - 499 ?High ??>= 500 ? Very High HDL 44 >=40 mg/dL [facility] Comment: ?? > 60 ?Optimal 40 - 60 ?Acceptable ?? < 40 ?Low Blood specimen (specimen) UPPER LIMB STRUCTURE / Unknown 09/01/2014 9:01 AM EDT 09/01/2014 7:00 PM EDT us Mann Irene MD CHEMISTRY ORDERABLES Edited Re sult - Final [facility] [address] [place] [address] * CBC WITH AUTO DIFF (09/01/2014 9:01 AM EDT) WBC 8.3 4.0 - 11.0 x10(3)/mcL [facility] RBC 4.80 3.80 - 5.10 x10(6)/mcL [facility] Hgb 13.7 12.0 - 15.6 gm/dL [facility] Hct 42.0 35.7 - 45.9 % [facility] MCV 87.4 82.5 - 99.8 fL [facility] MCH 28.4 27.0 - 34.3 pg [facility] MCHC 32.5 32.1 - 35.3 gm/dL [facility] RDW 14.3 11.5 - 15.0 % [facility] Platelet 322 144 - 423 x10(3)/mcL [facility] MPV 8.1 6.8 - 10.8 fL [facility] Blood specimen (specimen) UPPER LIMB STRUCTURE / Unknown 09/01/2014 9:01 AM EDT 09/01/2014 7:00 PM EDT Mann Irene MD HEMATOLOGY ORDERABLES Final Re sult Performing Organization Address City/[facility]/ZIP Co de Phone Number [facility] [address] [place] [address] * BASIC METABOLIC PANEL (09/01/2014 9:01 AM EDT) Sodium 144 136 - 145 mmol/L [facility] Potassium 4.2 3.5 - 5.0 mmol/L [facility] Chloride 104 98 - 107 mmol/L [facility] Total CO2 28 22 - 29 mmol/L [facility] Anion Gap 12 7 - 16 mmol/L [facility] Calcium 9.4 8.8 - 10.2 mg/dL [facility] Glucose Lvl 98 82 - 100 mg/dL [facility] BUN 16 8 - 23 mg/dL [facility] Creatinine 0.69 0.51 - 1.30 mg/dL [facility] GFR Afr Am >60 [facility] GFR Non Afr Am >60 [facility] Blood specimen (specimen) UPPER LIMB STRUCTURE / Unknown 09/01/2014 9:01 AM EDT 09/01/2014 7:00 PM EDT Mann Irene MD CHEMISTRY ORDERABLES Edited Re sult - Final Performing Organization Address City/[facility]/ZIP Co de Phone Number [facility] [address] [place] [address] documented in this encounter Visit Diagnoses Diagnosis Well adult exam- Primary Routine general medical examination at a health care facility Hand dermatitis Contact dermatitis and other eczema, due to unspecified cause Hip joint replacement by other means Hypercholesterolemia Pure hypercholesterolemia documented in this encounter Administered Medications Inactive Administered Medications - up to 1 most recent administrations Medication Order MAR Action Action Date Dose Rate Site methylPREDNISolone acetate (DEPO-MEDROL) injection 40 mg 40 mg, Intramuscular, ONCE, 1 dose, On Thu09/01/14 at 0900, Dx: 1. Hand dermatitisIndications:H and dermatitis Given 09/01/2014 9:16 AM EDT 40 mg Right Upper Outer Quadrant documented in this encounter Discontinued Medications Medication Sig Discontinue Reason Start Date End Da te loratadine-pseudoephedr ine (LORATADINE-PSEUDOEPHED RINE) 10-240 mg Tb24 per tablet Take 1 Tab by mouth daily. Reorder 09/26/2013 09/01/2014 triamcinolone (KENALOG) 0.1 % Top CreamIndications:Hand dermatitis Apply topically daily. Alternate therapy 04/28/2014 09/01/2014 documented as of this encounter Orders Charge Count Last Ordered Date First Orde red Date [place] COLLECTION VENOUS BLOOD,VENIPUNCTURE 1 0 09/01/2014 documented in this encounter Care Teams Management Technician Relationship Specialty Start Date End Date Mann Irene MD [address] [place] [phone] PCP - General Internal Medicine 08/23/12 07/13/22 documented as of this encounter
--- OUTSIDE RECORDS SUMMARY | 2024-03-27 15:07 | XMS_ITS | Encounter Summary ---
Author Organization [place] Address [facility] [place] [address] Care Team Providers Care Assistant Football Coach Name Role Phone Mann Irene MD Primary Care Provider [phone] Encounter Details Date Type Department Care Team (Latest Contact Info) Description 01/23/2016 4:09 PM EDT - 01/23/2016 11:59 PM EDT Hospital Encounter EDG LAB LAURA PROCESSING [facility] [address] [place] [id number] Annual physical exam; Screening for cholesterol level; Screening for thyroid disorder Discharge Disposition: Home or Self Care Social [...] EST Office Visit [facility] [address] [place] [phone] Gilda Francis PA [address] [place], [place] [phone] documented as of this encounter Procedures Procedure Name Priority Date/Time Associated Diagnosis Comments CBC Routine 01/23/2016 4:05 PM EDT Annual physical exam THYROID STIMULATING HORMONE Routine 01/23/2016 4:05 PM EDT Annual physical exam Screening for thyroid disorder LIPID SCREEN Routine 01/23/2016 4:05 PM EDT Annual physical exam Screening for cholesterol level COMPREHENSIVE METABOLIC PANEL Routine 01/23/2016 4:05 PM EDT Annual physical exam documented in this encounter Results * THYROID STIMULATING HORMONE (01/23/2016 4:05 PM EDT) Pathologist [facility] TSH 1.370 0.270 - 4.200 mcIU/mL [facility] Blood specimen (specimen) UPPER LIMB STRUCTURE / Unknown 01/23/2016 4:05 PM EDT 01/23/2016 4:58 PM EDT Oralia Hall PA-C CHEMISTRY ORDERABL ES Final Result Performing Organization Address [facility] Co de Phone Number [facility] [address] [place] [address] * LIPID SCREEN (01/23/2016 4:05 PM EDT) [facility] Cholesterol 162 <=200 mg/dL [facility] Comment: < 200 ?Desirable 200 - 239 ? Borderline High >= 240 ?High Triglyceride 94 <=150 mg/dL [facility] Comment: < 150 ? Normal 150 - 199 ?Borderline High 200 - 499 ?High ??>= 500 ? Very High HDL 45 >=40 mg/dL [facility] Comment: ?? > 60 ?Optimal 40 - 60 ?Acceptable ?? < 40 ?Low LDL Calculated 98 <=100 mg/dL [facility] Comment: ??< 100 ?Optimal 100 - 129 ? Near or above optimal 130 - 159 ? Borderline High 160 - 189 ? High >= 190 ?Very High Blood specimen (specimen) UPPER LIMB STRUCTURE / Unknown 01/23/2016 4:05 PM EDT 01/23/2016 4:58 PM EDT Oralia Hall PA-C CHEMISTRY ORDERABL ES Edited Result - Final Performing Organization Address [facility] Co de Phone Number [facility] [address] [place] [address] * COMPREHENSIVE METABOLIC PANEL (01/23/2016 4:05 PM EDT) [facility] Sodium 144 136 - 145 mmol/L [facility] Potassium 4.6 3.5 - 5.0 mmol/L [facility] Chloride 105 98 - 107 mmol/L [facility] Total CO2 28 22 - 29 mmol/L [facility] Anion Gap 11 7 - 16 mmol/L [facility] Calcium 9.4 8.8 - 10.2 mg/dL [facility] Glucose Lvl 95 82 - 100 mg/dL [facility] BUN 16 8 - 23 mg/dL [facility] Creatinine 0.72 0.51 - 1.30 mg/dL [facility] Albumin 4.3 3.2 - 4.6 gm/dL [facility] Total Protein 7.6 6.4 - 8.3 gm/dL [facility] Bili Total 0.4 0.1 - 1.3 mg/dL [facility] AST 12 <=40 IU/L [facility] ALT 11 <=41 IU/L [facility] Alk Phos 103 35 - 104 IU/L [facility] GFR Afr Am >60 [facility] GFR Non Afr Am >60 [facility] Blood specimen (specimen) UPPER LIMB STRUCTURE / Unknown 01/23/2016 4:05 PM EDT 01/23/2016 4:58 PM EDT Oralia Hall PA-C CHEMISTRY ORDERABL ES Edited Result - Final [facility] [address] [place] [address] * CBC (01/23/2016 4:05 PM EDT) [facility] WBC 9.8 4.0 - 11.0 x10(3)/mcL [facility] RBC 4.79 3.80 - 5.10 x10(6)/mcL [facility] Hgb 13.8 12.0 - 15.6 gm/dL [facility] Hct 41.8 35.7 - 45.9 % [facility] MCV 87.3 82.5 - 99.8 fL [facility] MCH 28.9 27.0 - 34.[address] [facility] MCHC 33.1 32.1 - 35.3 gm/dL [facility] RDW 14.4 11.5 - 15.0 % [facility] Platelet 328 144 - 423 x10(3)/mcL [facility] MPV 8.2 6.8 - 10.[address] [facility] Blood specimen (specimen) UPPER LIMB STRUCTURE / Unknown 01/23/2016 4:05 PM EDT 01/23/2016 4:58 PM EDT Oralia Hall PA-C HEMATOLOGY ORDERAB LES Final Result Performing Organization Address City/State/[facility] Co de Phone Number [facility] [address] [place] [address] documented in this encounter Visit Diagnoses Diagnosis Annual physical exam Routine general medical examination at a health care facility Screening for cholesterol level Screening for lipoid disorders Screening for thyroid disorder documented in this encounter Additional Health Concerns Assessment Noted Time A fall risk assessment has been complete d for the patient 03/02/2015 2:44 PM EDT PHQ-2 Depression Total Score: 1 09/04/19 16 11:00 AM EDT documented as of this encounter Care Teams Assistant Football Coach Relationship Specialty Start Date End Date Mann Irene MD [place] [facility] [phone] PCP - General Internal Medicine 08/23/12 07/13/22 documented as of this encounter
--- OUTSIDE RECORDS SUMMARY | 2024-03-27 15:07 | XMS_ITS | Encounter Summary ---
Author Organization [place] Address [facility] [place] [address] Care Team Providers Care Sister Superior Name Role Phone Mann Irene MD Primary Care Provider Encounter Details Date Type Department Care Team (Latest Contact Info) Description 03/02/2015 8:57 PM EDT - 03/02/2015 11:59 PM EDT Hospital Encounter EDG LAB LAURA PROCESSING [facility] [place] [address] Acute idiopathic gout of right foot Discharge Disposition: Home or Self Care Social [...] Take 81 mg by mouth daily. 9 triamcinolone (KENALOG) 0.1 % Top CreamIndications :Psoriasis Apply topically 2 times daily for 10 days. 80 g 2 03/02/2015 5 documented as of this encounter Discharge Disposition Disposition Code Departure Means Destination Home or Self Care documented in this encounter Plan of Treatment Upcoming Encounters Date Type Department Care Team (Late st Contact Info) Description 05/16/2024 9:30 AM EST Office Visit [facility] [address] [place] [address] Gilda Francis PA [address] [place] [address] documented as of this encounter Procedures Procedure Name Priority Date/Time Associated Diagnosis Comments URIC ACID Routine 03/02/2015 3:22 PM EDT Acute idiopathic gout of right foot documented in this encounter Results * URIC ACID (03/02/2015 3:22 PM EDT) Uric Acid 4.6 2.4 - 5.7 mg/dL [facility] Blood specimen (specimen) UPPER LIMB STRUCTURE / Unknown 03/02/2015 3:22 PM EDT 03/02/2015 9:30 PM EDT us Stefania Braun MD CHEMISTRY ORDERABLE S Final Result [facility] [address] [place] [address] documented in this encounter Visit Diagnoses Diagnosis Acute idiopathic gout of right foot documented in this encounter Additional Health Concerns Assessment Noted Time A fall risk assessment has been complete d for the patient 03/02/2015 2:44 PM EDT documented as of this encounter Care Teams Sister Superior Relationship Specialty Start Date End Date Mann Irene MD [address] [place] [phone] PCP - General Internal Medicine 08/23/12 07/13/22 documented as of this encounter
--- OUTSIDE RECORDS SUMMARY | 2024-03-27 15:08 | XMS_ITS | Encounter Summary ---
Author Organization [place] [address] Care Team Providers Care Multi Township Assessor Name Role Phone Mann Irene MD Primary Care Provider [phone] Reason for Referral * MRI/CAT Scan (Routine) - Closed Specialty Diagnoses / Procedures Referred By Ramona [email or web address] Referred To Contact Radiology Diagnoses Pain Difficulty walking Procedures MRI FEMUR RIGHT W CONTRAST Stefania Oquendo MD [facility] [address] [place] [address] Phone: tel: Referral ID Status Reason Start Date Expiration Date Visits Re quested Visits Authorized [id number] Closed 12/19/2013 06/17/2014 1 1 Encounter Details Date Type Department Care Team (Late st Contact Info) Description 12/19/2013 Orders Only [facility] [address] [place] [phone] Stefania Oquendo MD Pain (Primary Dx); Difficulty walking Social History Tobacco Use Types Packs/Day Years Used Date Smoking Tobacco: Former Cigarettes Smokeless Tobacco: Never Comments:quit 5 yrs ago Alcohol Use Standard Drinks/Week Comments No 0 (1 standard drink = 0.6 oz pur e alcohol) Comments No Sex and Gender Information Value Date Recorded Sex Assigned at Not on file Legal Sex Female 5:30 PM EDT Gender Identity Not on file Sexual Orientation Not on file documented as of this encounter Plan of Treatment Upcoming Encounters Date Type Department Care Team (Late st Contact Info) Description 05/16/2024 9:30 AM EST Office Visit [facility] [address] [place] [address] Gilda Francis PA [address] [place] [address] Scheduled Orders Name Type Priority Associated Diagnoses Orde r Schedule MRI FEMUR RIGHT W CONTRAST Imaging Routine Pain Difficulty walking 1 Occurrences starting 12/19/2013 until 12/19/2014 documented as of this encounter Visit Diagnoses Diagnosis Pain- Primary Generalized pain Difficulty walking Difficulty in walking documented in this encounter Care Teams Multi Township Assessor Relationship Specialty Start Date End Date Mann Irene MD [address] [facility] [place] [phone] PCP - General Internal Medicine 08/23/12 07/13/22 documented as of this encounter
--- OUTSIDE RECORDS SUMMARY | 2024-03-27 15:08 | XMS_ITS | Encounter Summary ---
Author [place] [address] Care Team Providers Care Web Press Operator Assistant Name Role Phone Mann Irene MD Primary Care Provider [phone] Reason for Visit * Auth/Cert/Inpt Specialty Diagnoses / Procedures Referred By Ramona mcdaniel Referred To Contact Diagnoses Primary localized osteoarthrosis, pelvic region and thigh, right Primary localized osteoarthrosis, pelvic region and thigh, right [895.15] Procedures RIGHT HIP TOTAL REPLACEMENT (ANTERIOR/ KYLEE) EDG PERIOP [facility] [place] [address] Phone: tel: fax: Referral ID Status Reason Start Date Expiration Date Visits Re quested Visits Authorized [id number] 02/08/2014 02/08/2015 1 1 Encounter Details Date Type Department Care Team (Latest Contact Info) Description 02/16/2014 6:27 AM EDT - 02/20/2014 5:34 PM EDT Hospital Encounter EDG 7D ORTHO [facility] [place] [address] Bruce Oh MD [address] [place] [address] OA (osteoarthritis) (Primary Dx); Hypercholesterolemi a; Hypernatremia Discharge Disposition: Senior Care Facility Social History Tobacco Use Types Packs/Day [...] Sign Reading Time Taken Comments Blood Pressure 117/68 02/20/2014 10:26 AM EDT Pulse 89 02/20/2014 10:26 AM EDT Temperature 36.7 ??C (98.1 ??F) 02/20/2014 10:26 AM E DT Respiratory Rate 18 02/20/2014 10:26 AM EDT Oxygen Saturation 92% 02/20/2014 10:26 AM EDT Inhaled Oxygen Concentration - - Weight 85.3 kg (188 lb) 02/16/2014 2:30 PM EDT Height 161.3 cm (5' 3.5 ) 02/16/2014 2:30 PM EDT Body Mass Index 32.78 02/16/2014 2:30 PM EDT documented in this encounter Functional [...] Rhea Ernandez RN documented in this encounter Discharge Summaries * Tiffany Elizondo APRN - 02/21/2014 8:52 PM EDT [facility] DISCHARGE SUMMARY Stella Hylton Admit Date: 02/16/2014 Date of Discharge: 02/20/2014 02/20/2014 PROCEDURE: Procedure(s): RIGHT TOTAL HIP REPLACEMENT (Right) REASON FOR ADMISSION: To undergo previously mentioned surgical procedure on 02/16/2014 HOSPITAL COURSE: Pretty straight-forward course. Patient was admitted through the hospital on the day of surgery. Procedure went well. Postoperatively, the patient was admitted to the floor, had usual postoperative course. Patient tolerated a regular diet and oral pain medication. Pt was dischargedon 02/20/2014. DISCHARGE INSTRUCTIONS: -- Weightbearing as tolerated. -- May take shower. Pat the incision dry with clean towel. Keep incision clean and dry. -- Resume pre-op diet. -- Check temperature twice daily. -- Total joint precautions. -- Oxycodone for pain. -- Lovenox for DVT prophylaxis. -- Resume home medications per PCP. -- Follow up with orthopaedic surgeon in two weeks. -- Follow up with primary care physician within 6-8 weeks. -- For any questions or concerns, call [facility] office or go to the nearest emergency department. Tiffany Elizondo APRN Date: 02/20/2014 Cosigned by Bruce Oh MD at 02/27/2014 9:32 PM EDT documented in this encounter Discharge Instructions * Discharge Instructions* Shelby Martini RN - 02/20/2014 11:18 AM EDT Dear Patient, The staff of at [facility] sincerely hopes that your hospital stay was pleasant. We try to ensure that our patients are cared for in the most respectful and comfortable way. The staff members of pride themselves on delivering kind and compassionate care to each and every patient. Working collaboratively with physicians, social workers, adult protective caseworker, and the discharge team, we attempt to [...] for further explanation. Thank you for choosing [facility]. We hope that you have [...] in the wound. SEEK MEDICAL CARE IF: You have an increase in swelling, pain, or redness around the wound. You have an increase in the amount of drainage coming from the wound. There is a bad smell coming from the wound. More of the wound breaks open. You have a fever over 101 degrees. DRESSINGS The dressing that you leave the hospital in is waterproof, therefore, you may shower with the dressing in place. Avoid baths, swimming pools and hot tubs until directed by your surgeon. When showering, allow water to run over the incision and pat it dry. Should the dressing get water inside, remove it immediately. The dressing should be removed 3 to 4 days after discharge and the incision may be left open to air. Do not apply any creams, lotions, powders, [...] gel bags. SMI Wrap care instructions: The [facility] cold therapy wrap can be hand washed and air dried. Additional [facility] body specific wraps can be re-ordered from [employer] or call [phone]. [facility] re-order information: Visit our Patient Retail Store at [email or web address] Telephone orders: DEEP VEIN THROMBOSIS (DVT) WHAT IS A [...] Department of Health and Human Services, national [place] of Health, National Heart Lungs and Blood [place], Obtained on 04/19/2007 from http: www.nihlb i.nih.gov/health/dci/Diseases/Dvt/DVT_All.html [...] the doctor tells you to do so. CONSTIPATION Hard-formed stool or difficult passage of [...] in your stool, contact your doctor. Reference: [facility] - Tools for Healthier Lives ? [employer]? . [employer] HOME SAFETY GUIDELINES Medications Discard outdated or unused prescription medications Take medications only as directed Call for refills of medication on or Thursday as pain medication is not refilled on the weekend DO NOT take any anti-inflammatory medications while on your blood thinner unless specifically ordered by your physician Ice Apply ice to your extremity several times throughout the day. Alternate with the ice on for 20 - 30 minutes then off for 20 - 30 minutes. Always lay a thin towel or clot between the ice and your skin. Apply ice and lay flat with your leg elevated on three pillows 3-5 times per day for about 30 minutes. Floors/Room Arrangement Secure floor coverings Remove throw rugs Avoid clutter Remove cords from pathways Use non-skid shoes and house slippers Clean spills promptly Arrange furniture in room for easy navigation Easy access to all necessary living areas (kitchen, bathroom, living room) Stairs Well lighted Hand rails, if needed Avoid clutter and storage of articles on stairs Electricity Cords not frayed Outlets not overloaded Appliances away from water Kitchen Needed items within reach Consider use of microwave for convenience and safety Fire extinguisher Bathroom Elevated toilet seat Tub/toilet handrails Hand-held shower-head with shower seat Are doors wide enough to accommodate walker or wheelchair? Miscellaneous List of emergency names/numbers Consider use of portable phone with preprogrammed numbers No smoking in bed or with oxygen use Smoke Detectors Exit procedure in case of fire Consider Lifeline Alert System Consider use of night lights Avoid uneven ground/pavement when walking outdoors Carbon-monoxide detector to protect sleeping areas Reference: Centers for Disease Control and Prevention www.cdc.gov ADD: Home Safety [place] www.Homesafetycouncil.org MISCELLANEOUS Activity as tolerated as instructed by Physical Therapy. Crutches/ Walker for home use. Monitor incision for signs and symptoms of infection which include; increased warmth, redness, and/or drainage, foul odor or a temp greater than 101 degrees. Use pillow between legs in bed to keep operated leg to side. This is not necessary for anterior approach hip replacements. Follow up in physicians office as instructed, anticipate amadeo to be removed at follow up visit. Follow up at discharge with Physical Therapy as instructed. Patients must call and make their outpatient appointment at their convenience. Follow total hip precautions at all times. Refer to handout. Do not drive for six (6) weeks or until you have permission by your physician. Call [phone] ([facility]) for any questions or concerns. documented in this encounter Medications at Time of Discharge enoxaparin (LOVENOX) 40 mg/0.4 mL SubQ Syringe Subcutaneous (Inject under the skin) 0.4 mL daily for 14 days. 14 Syringe 0 02/18/2014 4 oxyCODONE (ROXICODONE) 5 mg Oral Tablet Take 1 tablet by mouth every 6 hours as needed. 10 tablet 0 02/25/2014 4 oxyCODONE (ROXICODONE) 5 mg Oral Tablet Take 1-3 tablets by mouth every 4 hours as needed. 60 tablet 0 02/18/2014 4 oxyCODONE-acetam inophen (PERCOCET) 5-325 mg Oral Tablet Take 1 tablet by mouth every 6 hours as needed for Pain for up to 30 days. 60 tablet 0 02/25/2014 4 rivaroxaban (XARELTO) 10 mg Oral Tablet Take 1 tablet by mouth daily. 7 tablet 0 02/25/2014 4 documented as of this encounter Ordered Prescriptions Prescription Sig Dispense Quantity Refills Last Filled Start Date End Date enoxaparin (LOVENOX) 40 mg/0.4 mL SubQ Syringe Subcutaneous (Inject under the skin) 0.4 mL daily for 14 days. 14 Syringe 0 02/18/2014 4 oxyCODONE (ROXICODONE) 5 mg Oral Tablet Take 1-3 tablets by mouth every 4 hours as needed. 60 tablet 0 02/18/2014 4 documented in this encounter Discharge Disposition Disposition Code Departure Means Destination [facility] documented in this encounter Progress Notes * Tonja Wheeler, OT - 02/21/2014 8:09 AM EDT 02/20/14 1040 Precautions Weight Bearing Status Weight bearing as tolerated Cognition Overall Cognitive Status WFL Pain Screening Additional Comments no specific c/o pain Observation Presentation Patient seated edge of bed Bed Mobility Rolling Independent Supine to Sit Modified independent (device) Sit to Supine Modified independent (device) Transfers Sit to Stand With verbal cues;Contact guard assist;Stand by assist Stand to Sit With verbal cues;Contact guard assist;Stand by assist Gait PT Gait Contact guard assist Gait Distance (Feet) 120 Feet Pattern Antalgic;Slow jovany Weight Bearing Status Weight bearing as tolerated Balance Sitting - Static Good Sitting - Dynamic Good Standing - Static Fair plus Standing - Dynamic Fair plus ADL Goals Pt Will Perform All ADL's Min assist Functional Transfer Goals Pt Will Perform All Functional Transfers Contact guard Plan Additional Comments pt seen 02/17, 02/20/14 for OT svcs. pt D/C'd to [facility]. Recommendation OT Recommendation Short-term skilled OT * Alexandra Anaya BSW - 02/20/2014 3:31 PM EDT 02/20/14 1530 Discharge Planning Evaluation Actual Discharge Plan 02/20 Final Note: [facility] recieved insurance approval & able to accept pt today. Friend to transport. * Zamzam Greenwood, PT - 02/20/2014 3:17 PM EDT 02/20/14 1424 PT Subjective Patient Room/Unit 7415 pm f/u: sup to sit modif indep with rails; sit to stand SBA: gt 140 with RW SBA/CGA antalgia RLE; assisted pt to bathroom; performed standing R ANANTH therex as listed below with seated rest between; sit to sup CGA with vcs. Left with needs in reach. Standing Standing Heel Raises 10 Marches 10 RLE Standing Hip Ext 10 partial ROM Standing Hip ABD 10 Standing Mini Squats 10 Assessment Progress Progressing toward goals Recommendation PT Individual Treatment Minutes 28 Time In / Time Out [phone] * Ottoniel Conde MD - 02/20/2014 1:01 PM EDT [facility] Subjective: Pt resting comfortably. Pain tolerable. Objective: BP 117/68 Pulse 89 Temp(Src) 98.1 ??F (36.7 ??C) (Oral) Resp 18 Ht 5' 3.5 (1.613 m) Wt 188 lb (85.276 kg) BMI 32.78 kg/m2 SpO2 92% I/O last 3 completed shifts: In: 2680 [P.O.:2680] Out: - Weight: 188 lb (85.276 kg) General appearance: NAD HEENT: EOMI, no JVD, neck supple Cardiovascular: RRR Lungs: CTA Bilaterally ,No rales or rhonchi, Abdomen: positive bowel sounds, soft, non-tender to palpation, no hepatosplenomegaly appreciated Extremities: no cyanosis, clubbing . Skin: warm,dry Results: ECG: Results for orders placed during the hospital encounter of 11/03/12 EK EKG 12 LEAD Labs: Lab Results Component Value Date WBC 7.7 02/09/2014 HGB 10.2* 02/19/2014 HCT 30.4* 02/19/2014 MCV 89.2 02/09/2014 PLT 296 02/09/2014 Lab Results Component Value Date NA 139 02/17/2014 K 4.1 02/17/2014 CL 101 02/17/2014 CO2 31* 02/17/2014 BUN 14 02/17/2014 LABALBU 4.2 09/26/2013 CREATININE 0.77 02/17/2014 CALCIUM 8.9 02/17/2014 GFRAFRAM >60 02/17/2014 GFRNONAFRAM >60 02/17/2014 GLU 116* 02/17/2014 Lab Results Component Value Date ALKPHOS 103 09/26/2013 ALT 13 09/26/2013 AST 12 09/26/2013 PROT 7.2 09/26/2013 LABBILI 0.4 09/26/2013 LABALBU 4.2 09/26/2013 No results found for this basename: AMYLASE, LIPASE No results found for this basename: ckmb, troponin I, myoglobin Lab Results Component Value Date INR 1.01 02/09/2014 Lab Results Component Value Date SPECGRAV 1.014 02/09/2014 SPECGRAV 1.020 01/19/2014 UAPROTEIN Negative 02/09/2014 BLOODU Negative 02/09/2014 NITRITE Negative 02/09/2014 NITRITE neg 01/19/2014 LEUKOCYTESUR Negative 02/09/2014 LEUKOCYTESUR neg 01/19/2014 No results found for this basename: PH, PCO2, PO2, HCO3, TCO2, baseExcess, O2SAT, INSPIREDO2, SPECIMENTYPE Radiology Results: No results found. Assessment: Active Hospital Problems Diagnosis ??? OA (osteoarthritis)-s/p RIGHT TOTAL HIP REPLACEMENT 02/16/14. ??? Hypernatremia ??? Hypercholesterolemia Resolved Hospital Problems Diagnosis No resolved problems to display. Plan: Hgb 10.2. SQ Lovenox. OK to DC when OK with Ortho. KHenrietta Conde MD 02/20/2014 1:01 PM * Enrique West PTTech/THAD - 02/20/2014 10:44 AM EDT 02/20/14 1040 PT Subjective PT Subjective Comments #1 f/u 7415 PT Subjective Comments #2 Patient is agreeable to participate Pain Screening Additional Comments no specific c/o pain Cognition Overall Cognitive Status WFL Precautions Weight Bearing Status Weight bearing as tolerated Observation Presentation Patient seated edge of bed Bed Mobility Rolling Independent Supine to Sit Modified independent (device) Sit to Supine Modified independent (device) Transfers Sit to Stand With verbal cues;Contact guard assist;Stand by assist Stand to Sit With verbal cues;Contact guard assist;Stand by assist Gait PT Gait Contact guard assist Gait Distance (Feet) 120 Feet Assistive Device 2 Wheel walker Pattern Antalgic;Slow jovany Weight Bearing Status Weight bearing as tolerated Balance Sitting - Static Good Sitting - Dynamic Good Standing - Static Fair plus Standing - Dynamic Fair plus Exercise Additional Comments pt. demonstrated LAQ's, quad sets, ankle pumps, and heel slides with supervision Education Education Role of Therapy;Safety with mobility;Cues for proper technique Patient Safety Patient Safety Patient in bed with needs in reach (breakfast present) Plan PT Frequency BID Recommendation PT Individual Treatment Minutes 14 Time In / Time Out [phone] * Nidhi Browning RN - 02/20/2014 10:38 AM EDT Patient resting. No complaints of pain or nausea. Vss. Circulation checks wnl. Dressing dry and intact. No iv present. Call light within reach. No further needs at this time. * Tiffany Elizondo APRN - 02/20/2014 9:47 AM EDT [facility] Progress Note Admit Date: 02/16/2014 HPI: Stella Hylton is a 68 y.o. female admitted for work-up and treatment for Primary localized osteoarthrosis, pelvic region and thigh, right [715.15]. Objective: Lab Results Component Value Date WBC 7.7 02/09/2014 RBC 4.49 02/09/2014 HGB 10.2* 02/19/2014 HCT 30.4* 02/19/2014 Lab Results Component Value Date INR 1.01 02/09/2014 Patient Vitals for the past 8 hrs: BP Temp Temp src Pulse Resp SpO2 02/20/14 0550 127/92 mmHg 100.2 ??F (37.9 ??C) Oral 89 16 92 % Procedure(s): RIGHT TOTAL HIP REPLACEMENT (Right) Patient is in no acute distress. Palpable distal pulses. Brisk capillary refill. Negative Homans sign. Soft compartments. Incision is clean and dry. No active bleeding. Dorsiflexion: Toes up and down. Plan: Doing fine from an orthopaedic standpoint. Advance as directed. Awaiting discharge today. Plan is to go to [facility]. Will continue to monitor. Tiffany Elizondo APRN Cosigned by Bruce Oh MD at 02/27/2014 9:32 PM EDT * Alexandra Anaya BSW - 02/20/2014 8:49 AM EDT 02/20/14 0849 Discharge Planning Evaluation Actual Discharge Plan 02/20 SW: [facility] SNF working to obtain insurance precert for possible admission today. Await determination. * Yary Hale, UMA - 02/19/2014 11:36 PM EDT Patient able to reposition independently. Educated patient about the importance of repositioning every 2 hours to prevent skin breakdown. Patient verbalized understanding. No needs at this time, willmonitor. Yary Hale RN * Lo Jones, PT - 02/19/2014 6:54 PM EDT 02/19/14 1853 PT Subjective Patient Room/Unit 7415 PT Subjective Comments #1 attempted PT f/u pt sleeping and unable wake up to participate. will see tomorrow Therapy delay reason Unable to arouse/awaken patient * Tiffany Elizondo APRN - 02/19/2014 12:55 PM EDT [facility] Progress Note Admit Date: 02/16/2014 HPI: Stella Hylton is a 68 y.o. female admitted for work-up and treatment for Primary localized osteoarthrosis, pelvic region and thigh, right [715.15]. Objective: Lab Results Component Value Date WBC 7.7 02/09/2014 RBC 4.49 02/09/2014 HGB 10.2* 02/19/2014 HCT 30.4* 02/19/2014 Lab Results Component Value Date INR 1.01 02/09/2014 Patient Vitals for the past 8 hrs: BP Temp Temp src Pulse Resp SpO2 02/19/14 0744 134/68 mmHg 98.7 ??F (37.1 ??C) Oral 99 18 93 % 02/19/14 0740 - - - - - 89 % Procedure(s): RIGHT TOTAL HIP REPLACEMENT (Right) Patient is in no acute distress. Nauseous. Palpable distal pulses. Brisk capillary refill. Negative Homans sign. Soft compartments. Incision is clean and dry. No active bleeding. Dorsiflexion: Toes up and down. Plan: Doing fine from an orthopaedic standpoint. Advance as directed. Will continue to monitor. Pending placement with discharge likely tomorrow. Phenergan suppository ordered Tiffany Elizondo APRN Cosigned by Bruce Oh MD at 02/27/2014 9:32 PM EDT * Ottoniel Conde MD - 02/19/2014 12:51 PM EDT [facility] Subjective: Pt resting in chair. Pain tolerable. Objective: BP 134/68 Pulse 99 Temp(Src) 98.7 ??F (37.1 ??C) (Oral) Resp 18 Ht 5' 3.5 (1.613 m) Wt 188 lb (85.276 kg) BMI 32.78 kg/m2 SpO2 93% I/O last 3 completed shifts: In: 310 [P.O.:300; I.V.:10] Out: - Weight: 188 lb (85.276 kg) General appearance: NAD HEENT: EOMI, no JVD, neck supple Cardiovascular: RRR Lungs: CTA Bilaterally ,No rales or rhonchi, Abdomen: positive bowel sounds, soft, non-tender to palpation, Extremities: no cyanosis, clubbing or edema. Skin: warm,dry Results: ECG: Results for orders placed during the hospital encounter of 11/03/12 EK EKG 12 LEAD Labs: Lab Results Component Value Date WBC 7.7 02/09/2014 HGB 10.2* 02/19/2014 HCT 30.4* 02/19/2014 MCV 89.2 02/09/2014 PLT 296 02/09/2014 Lab Results Component Value Date NA 139 02/17/2014 K 4.1 02/17/2014 CL 101 02/17/2014 CO2 31* 02/17/2014 BUN 14 02/17/2014 LABALBU 4.2 09/26/2013 CREATININE 0.77 02/17/2014 CALCIUM 8.9 02/17/2014 GFRAFRAM >60 02/17/2014 GFRNONAFRAM >60 02/17/2014 GLU 116* 02/17/2014 Lab Results Component Value Date ALKPHOS 103 09/26/2013 ALT 13 09/26/2013 AST 12 09/26/2013 PROT 7.2 09/26/2013 LABBILI 0.4 09/26/2013 LABALBU 4.2 09/26/2013 No results found for this basename: AMYLASE, LIPASE No results found for this basename: ckmb, troponin I, myoglobin Lab Results Component Value Date INR 1.01 02/09/2014 Lab Results Component Value Date SPECGRAV 1.014 02/09/2014 SPECGRAV 1.020 01/19/2014 UAPROTEIN Negative 02/09/2014 BLOODU Negative 02/09/2014 NITRITE Negative 02/09/2014 NITRITE neg 01/19/2014 LEUKOCYTESUR Negative 02/09/2014 LEUKOCYTESUR neg 01/19/2014 No results found for this basename: PH, PCO2, PO2, HCO3, TCO2, baseExcess, O2SAT, INSPIREDO2, SPECIMENTYPE Radiology Results: No results found. Assessment: Active Hospital Problems Diagnosis ??? OA (osteoarthritis)-s/p RIGHT TOTAL HIP REPLACEMENT 02/16/14. ??? Hypernatremia Recheck BMP. ??? Hypercholesterolemia Resolved Hospital Problems Diagnosis No resolved problems to display. Plan: Hgb 10.2. On SQ Lovenox. Continue therapy. SQ Lovenox. Ottoniel Conde MD 02/19/2014 12:51 PM * Lo Jones, PT - 02/19/2014 9:29 AM EDT 02/19/14 0921 PT Subjective Patient Room/Unit 7415 PT Subjective Comments #1 PT f/u PT Subjective Comments #2 pt agreeable Pain Screening PT/OT Patient Currently in Pain Yes Additional Comments right hip Cognition Overall Cognitive Status WFL Following Commands Follows all commands and directions without difficulty Safety Judgement Decreased awareness of safety techniques;Decreased awareness of need for safety;Requires verbal cues for safety Precautions Weight Bearing Status Right lower extremity;Weight bearing as tolerated Precaution info given Yes;Weight bearing;To use call light to request assistance with all mobililty Observation Presentation Patient resting in bed Bed Mobility Rolling Stand by assist;Contact guard assist;With verbal cues Supine to Sit Stand by assist;Contact guard assist;With verbal cues Transfers Sit to Stand Contact guard assist;Stand by assist Stand to Sit Contact guard assist;Stand by assist Gait PT Gait Contact guard assist;With verbal cues Gait Distance (Feet) 100 Feet Assistive Device 2 Wheel walker Pattern Antalgic;Slow jovany Weight Bearing Status Weight bearing as tolerated Balance Sitting - Static Good Sitting - Dynamic Good Standing - Static Fair plus Standing - Dynamic Fair plus Exercise Exercise Yes Education Education Safety with mobility;Cues for proper technique;Discharge planning;Up with assistance only Patient Safety Patient Safety Patient left in chair with needs in reach Supine Supine Ankle Pumps 10 Supine Quad Sets 10 Supine Glut Sets 10 Supine Heelslides 10aa Supine Hip Abduction 10aa Assessment Assessment Decreased gait;Decreased functional mobility;Decreased balance;Decreased activity tolerance ;Decreased RightLower Extremity strength;Decreased Right Lower Extremity ROM Plan Treatment/Interventions Continue with current plan of care PT Frequency BID Additional Comments pt lives alone and has steps pt would benefit from rehab/ SNF to increase independence and safety Recommendation PT Recommendation Short-term skilled PT;Rehab PT Individual Treatment Minutes 23 Time In / Time Out [phone] * Lo Jones, PT - 02/18/2014 7:18 PM EDT 02/18/145 PT Subjective Patient Room/Unit 7415 PT Subjective Comments #1 PT f/u PT Subjective Comments #2 pt agreeable. pt performed ther ex as in am and amb with 2WW and CGA-min 100 feet Pain Screening PT/OT Patient Currently in Pain Yes Additional Comments right hip Assessment Assessment Decreased gait;Decreased functional mobility;Decreased balance;Decreased activity tolerance Prognosis Good;With continued PT s/p acute discharge Rationale for Skilled Therapy Balance Deficits;Not safe with independent transfers;Not safe ambulating independently Plan Treatment/Interventions Continue with current plan of care PT Frequency BID Recommendation PT Recommendation Short-term skilled PT;Rehab PT Individual Treatment Minutes 17 Time In / Time Out [phone] * Ottoniel Conde MD - 02/18/2014 1:32 PM EDT [facility] Subjective: Pt resting comfortably. Nausea earlier. Objective: BP 131/64 Pulse 93 Temp(Src) 99.1 ??F (37.3 ??C) (Oral) Resp 18 Ht 5' 3.5 (1.613 m) Wt 188 lb (85.276 kg) BMI 32.78 kg/m2 SpO2 94% I/O last 3 completed shifts: In: 1080 [P.O.:1080] Out: 1500 [Urine:1500] Weight: 188 lb (85.276 kg) General appearance: NAD HEENT: EOMI, no JVD, neck supple Cardiovascular: RRR Lungs: CTA Bilaterally ,No rales or rhonchi, Abdomen: positive bowel sounds, soft, non-tender to palpation Extremities: no cyanosis, clubbing. Skin: warm,dry Results: ECG: Results for orders placed during the hospital encounter of 11/03/12 EK EKG 12 LEAD Labs: Lab Results Component Value Date WBC 7.7 02/09/2014 HGB 10.7* 02/18/2014 HCT 31.9* 02/18/2014 MCV 89.2 02/09/2014 PLT 296 02/09/2014 Lab Results Component Value Date NA 139 02/17/2014 K 4.1 02/17/2014 CL 101 02/17/2014 CO2 31* 02/17/2014 BUN 14 02/17/2014 LABALBU 4.2 09/26/2013 CREATININE 0.77 02/17/2014 CALCIUM 8.9 02/17/2014 GFRAFRAM >60 02/17/2014 GFRNONAFRAM >60 02/17/2014 GLU 116* 02/17/2014 Lab Results Component Value Date ALKPHOS 103 09/26/2013 ALT 13 09/26/2013 AST 12 09/26/2013 PROT 7.2 09/26/2013 LABBILI 0.4 09/26/2013 LABALBU 4.2 09/26/2013 No results found for this basename: AMYLASE, LIPASE No results found for this basename: ckmb, troponin I, myoglobin Lab Results Component Value Date INR 1.01 02/09/2014 Lab Results Component Value Date SPECGRAV 1.014 02/09/2014 SPECGRAV 1.020 01/19/2014 UAPROTEIN Negative 02/09/2014 BLOODU Negative 02/09/2014 NITRITE Negative 02/09/2014 NITRITE neg 01/19/2014 LEUKOCYTESUR Negative 02/09/2014 LEUKOCYTESUR neg 01/19/2014 No results found for this basename: PH, PCO2, PO2, HCO3, TCO2, baseExcess, O2SAT, INSPIREDO2, SPECIMENTYPE Radiology Results: No results found. Assessment: Active Hospital Problems Diagnosis ??? OA (osteoarthritis)-s/p RIGHT TOTAL HIP REPLACEMENT 02/16/14. ??? Hypernatremia Recheck BMP. ??? Hypercholesterolemia Resolved Hospital Problems Diagnosis No resolved problems to display. Plan: Hgb 10.7. Tmax 100.2F. SQ Lovenox. Continue therapy. Ottoniel Conde MD 02/18/2014 1:32 PM * Gilda Contreras RN - 02/18/2014 9:38 AM EDT Pt experienced bought of nausea and vomiting. Medicated with Zofran IV. Will continue to monitor. * Lo Jones, PT - 02/18/2014 9:26 AM EDT 02/18/14 0921 PT Subjective Patient Room/Unit 3361 PT Subjective Comments #1 PT f/u PT Subjective Comments #2 pt agreeable Pain Screening PT/OT Patient Currently in Pain Yes Additional Comments right hip Cognition Overall Cognitive Status WFL Following Commands Follows all commands and directions without difficulty Precautions Weight Bearing Status Right lower extremity;Weight bearing as tolerated Precaution info given Yes;Weight bearing;To use call light to request assistance with all mobililty Activity Tolerance Endurance Limits participation and activity Observation Presentation Patient resting in bed Observation Oxygen - nasal cannula Additional Comments 1L Bed Mobility Rolling Contact guard assist;Min assist Supine to Sit Contact guard assist;Min assist Transfers Sit to Stand Contact guard assist;Min assist Stand to Sit Contact guard assist;Min assist Gait PT Gait Min assist;With verbal cues Gait Distance (Feet) 50 Feet Assistive Device 2 Wheel walker Pattern Slow jovany;Step to;Flexed posture Weight Bearing Status Weight bearing as tolerated Balance Sitting - Static Good Sitting - Dynamic Good Standing - Static Fair plus Standing - Dynamic Fair Exercise Exercise Yes Education Education Patient/Family Education Patient Safety Patient Safety Patient left in chair with needs in reach Supine Supine Ankle Pumps 10 Supine Quad Sets 10 Supine Glut Sets 10 Supine Heelslides 10aa Supine Hip Abduction 10aa Supine SAQ's 10aa Assessment Assessment Decreased gait;Decreased functional mobility;Decreased balance;Decreased activity tolerance Prognosis Good;With continued PT s/p acute discharge Rationale for Skilled Therapy Fall Risk;Not safe with independent transfers;Not safe ambulating independently Plan Treatment/Interventions Continue with current plan of care PT Frequency BID Recommendation PT Recommendation Short-term skilled PT;Rehab PT Individual Treatment Minutes 23 Time In / Time Out [phone] * Tiffany Elizondo, PROCESS TECHNICIAN - 02/18/2014 8:57 AM EDT [facility] Orthopaedic Surgery Progress Note Admit Date: 02/16/2014 HPI: Stella Hylton is a 68 y.o. female admitted for work-up and treatment for Primary localized osteoarthrosis, pelvic region and thigh, right [715.15]. Objective: Lab Results Component Value Date WBC 7.7 02/09/2014 RBC 4.49 02/09/2014 HGB 10.7* 02/18/2014 HCT 31.9* 02/18/2014 Lab Results Component Value Date INR 1.01 02/09/2014 Patient Vitals for the past 8 hrs: BP Temp Temp src Pulse Resp SpO2 02/18/14 0741 131/64 mmHg 99.1 ??F (37.3 ??C) Oral 93 18 94 % 02/18/14 0621 - - - - - 95 % 02/18/14 0615 113/51 mmHg 100.2 ??F (37.9 ??C) Oral 103 18 84 % Procedure(s): RIGHT TOTAL HIP REPLACEMENT (Right) Patient is in no acute distress. Palpable distal pulses. Brisk capillary refill. Negative Homans sign. Soft compartments. Incision is clean and dry. No active bleeding. Dorsiflexion: Toes up and down. Plan: Doing fine from an orthopaedic standpoint. Advance as directed. Likely to discharge on Thursday or Thursday if SNF placement required. Tiffany Elizondo APRN Cosigned by Bruce Oh MD at 02/27/2014 9:32 PM EDT * Enrique West PTTech/ATC - 02/17/2014 4:47 PM EDT 02/17/14 1645 PT Subjective Patient Room/Unit f/u 7415 PT Subjective Comments #1 Patient is agreeable and participated in post-op ther- ex in sitting/reclined with cues and assistance, and gait training with rolling walker (15ft., wbat, cga/cues). Recommendation PT Individual Treatment Minutes 23 Time In / Time Out [phone] * Alexandra Anaya BSW - 02/17/2014 4:09 PM EDT 02/17/14 1604 Discharge Planning Evaluation Actual Discharge Plan 02/17 SW: Acute rehab declined pt. Next choice of [facility] currently without bed available. Will require insurance precert & will not be able to be obtained until at earliest Thursday. If continues to need inpatient will re-eval on Thursday. * Elizabeth Campbell RN - 02/17/2014 2:33 PM EDT Patient alert and understand her plan of care re-educated patient to turn every two hours to prevent skin break down patient comfortable with pain management and tolerated activity well today assisted to bath room with one assist and done well continue to monitor and offer reasurrance call light inreach * Bruce Murillo, PT - 02/17/2014 1:07 PM EDT 02/17/14 0857 PT Subjective PT Subjective Comments #1 7415 PT eval PT Subjective Comments #2 the pt is agreeable to PT Discharge Information Evaluation to serve as discharge summary if no further treatment provided before the facility discharge Admitting Diagnosis Adm 02/16/14 for an elective right ANANTH per Dr. Oh Past Med Hx arthritis, hyperlipidemia, lumbar disc sx 11/03/12 Pain Screening PT/OT Patient Currently in Pain Yes Additional Comments right hip Cognition Overall Cognitive Status WFL Precautions Weight Bearing Status Right lower extremity;Weight bearing as tolerated Precaution info given Yes;Weight bearing;To use call light to request assistance with all mobililty Home Living/Prior Function Type of Home House Home Layout Two level Number of Steps 2+3 DAMON from back door most often used; 10 DAMON from front Home Equipment None Level of Assistance Independent with ADLs ;Independent with functional transfers;Independent with homemaking;Ambulatory in home;Ambulatory in the community Lives With Alone Observation Presentation Patient resting in bed Posture supine Observation IV RLE Assessment RLE Assessment X Additional Comments gross hip 2/5 LLE Assessment LLE Assessment WFL Bed Mobility Supine to Sit With verbal cues;Min assist Transfers Sit to Stand With verbal cues;Min assist Stand to Sit With verbal cues;Min assist Gait PT Gait With verbal cues;Min assist Gait Distance (Feet) 6 Feet Assistive Device 2 Wheel walker Pattern Antalgic;Slow jovany Weight Bearing Status Weight bearing as tolerated Balance Sitting - Static Good Standing - Static Fair plus Standing - Dynamic Fair Exercise Exercise Yes Education Education Patient/Family Education;Role of Therapy;Safety with mobility;Cues for proper technique;Discharge planning;Up with assistance only;Precautions Patient Safety Patient Safety Patient left in chair with needs in reach Supine Supine Ankle Pumps 10 Supine Quad Sets 10 Assessment Assessment Decreased gait;Decreased functional mobility;Decreased balance;Decreased RightLower Extremity strength;Decreased activity tolerance Prognosis Good;With continued PT s/p acute discharge Rationale for Skilled Therapy Fall Risk;Balance Deficits;Not safe with independent transfers;Not safe ambulating independently Goals PT GOALS (Yes/No) Yes Add Goals Pt Will Go Supine To Sit With contact guard assistance Pt will perform Sit to Stand With contact guard assistance Pt Will Ambulate With 2 wheel walker;31-50 feet;With contact guard assistance Pt Will Perform Home Exer Program With verbal cues required/provided Goal Formulation With patient Time for Goal Achievement 3 days Plan Treatment/Interventions Gait training;Bed mobility;Neuromuscular re- education;Balance training;Functional transfer training;LE strengthening/ROM;Increase activity tolerance ;Patient/Family training;Equipment eval/education PT Frequency BID Recommendation PT Recommendation Rehab PT Evaluation Minutes 10 PT Individual Treatment Minutes 17 Time In / Time Out [phone] Bruce Murillo, PT * Ottoniel Conde MD - 02/17/2014 12:24 PM EDT [facility] Hospitalist Subjective: Pt resting comfortably in chair. Slight nausea. Objective: BP 117/54 Pulse 74 Temp(Src) 99.1 ??F (37.3 ??C) (Oral) Resp 18 Ht 5' 3.5 (1.613 m) Wt 188 lb (85.276 kg) BMI 32.78 kg/m2 SpO2 95% I/O last 3 completed shifts: In: 3070 [P.O.:940; I.V.:2130] Out: 1100 [Urine:850; Blood:250] Weight: 188 lb (85.276 kg) General appearance: NAD HEENT:EOMI, no JVD, neck supple Cardiovascular: RRR Lungs: CTA Bilaterally ,No rales or rhonchi, Abdomen: positive bowel sounds, soft, non-tender to palpation, Extremities: no cyanosis, clubbing. Skin: warm,dry Results: ECG: Results for orders placed during the hospital encounter of 11/03/12 EK EKG 12 LEAD Labs: Lab Results Component Value Date WBC 7.7 02/09/2014 HGB 11.1* 02/17/2014 HCT 33.0* 02/17/2014 MCV 89.2 02/09/2014 PLT 296 02/09/2014 Lab Results Component Value Date NA 139 02/17/2014 K 4.1 02/17/2014 CL 101 02/17/2014 CO2 31* 02/17/2014 BUN 14 02/17/2014 LABALBU 4.2 09/26/2013 CREATININE 0.77 02/17/2014 CALCIUM 8.9 02/17/2014 GFRAFRAM >60 02/17/2014 GFRNONAFRAM >60 02/17/2014 GLU 116* 02/17/2014 Lab Results Component Value Date ALKPHOS 103 09/26/2013 ALT 13 09/26/2013 AST 12 09/26/2013 PROT 7.2 09/26/2013 LABBILI 0.4 09/26/2013 LABALBU 4.2 09/26/2013 No results found for this basename: AMYLASE, LIPASE No results found for this basename: ckmb, troponin I, myoglobin Lab Results Component Value Date INR 1.01 02/09/2014 Lab Results Component Value Date SPECGRAV 1.014 02/09/2014 SPECGRAV 1.020 01/19/2014 UAPROTEIN Negative 02/09/2014 BLOODU Negative 02/09/2014 NITRITE Negative 02/09/2014 NITRITE neg 01/19/2014 LEUKOCYTESUR Negative 02/09/2014 LEUKOCYTESUR neg 01/19/2014 No results found for this basename: PH, PCO2, PO2, HCO3, TCO2, baseExcess, O2SAT, INSPIREDO2, SPECIMENTYPE Radiology Results: No results found. Assessment: Active Hospital Problems Diagnosis ??? OA (osteoarthritis)-s/p RIGHT TOTAL HIP REPLACEMENT 02/16/14. ??? Hypernatremia Recheck BMP. ??? Hypercholesterolemia Resolved Hospital Problems Diagnosis No resolved problems to display. Plan: Hgb 11.1. On SQ Lovenox. Continue Therapy. Ottoniel Conde MD 02/17/2014 12:25 PM * Tonja Wheeler, OT - 02/17/2014 10:46 AM EDT 02/17/14 1031 OT Subjective Patient Room/Unit 6638 Evaluation Type Acute OT Eval OT Subjective Comments #1 OT orders received, chart review complete, OT eval and initial tx complete Discharge Information Evaluation to serve as discharge summary if no further treatment provided before the facility discharge Admitting Diagnosis R THR Past Med Hx arthritis, hyperlipidemia, lumbar disc sx 11/03/12 Precautions Weight Bearing Status Right lower extremity;Weight bearing as tolerated Precaution info given Yes;Weight bearing;To use call light to request assistance with all mobililty Prior Function Level of Assistance Independent with ADLs ;Independent with functional transfers;Independent with homemaking;Ambulatory in home;Ambulatory in the community Lives With Alone Receives Help From Family ADL Assistance Independent Homemaking Assistance Independent Driving Yes Shopping 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) Home Living Type of Home House Home Layout Two level;Performs ADL's on one level;Able to Live on Main level with bedroom/bathroom Number of Steps 2+3 DAMON from back door most often used; 10 DAMON from front Bathroom Shower/Tub Tub/Shower unit Bathroom Toilet Standard Bathroom Equipment None Home Equipment None Cognition Overall Cognitive Status WFL Following Commands Follows all commands and directions without difficulty Pain Screening PT/OT Patient Currently in Pain Yes Additional Comments R hip Observation Presentation Patient resting in bed Posture head elevated Right UE Assessment RUE Assessment WFL Left UE Assessment LUE Assessment WFL Hand Function Gross Grasp Functional Coordination Functional Current Level of Function Where Assessed Edge of bed;Chair;Supine, bed Eating Assistance Independent Grooming Assistance Independent UE Bathing Assistance Set up LE Bathing Assistance Minimal UE Dressing Assistance Independent LE Dressing Assistance Moderate Bed Mobility Rolling Min assist Supine to Sit Min assist Transfers Sit to Stand Min assist Stand to Sit Min assist Bed to Chair Min assist Balance Sitting - Static Good Sitting - Dynamic Good Standing - Static Fair plus Standing - Dynamic Fair Sensation Additional Comments nerve block RLE Interventions ADL Training whole body bathing/dressing/grooming Transfer Training bed to chair Patient/Family Education WS/EC edu; pain management edu Assessment Assessment Decreased ADL status;Decreased self-care trans Prognosis Good Goal Formulation With Patient Goals Yes ADL Goals Pt Will Perform All ADL's Independently;With adaptive equipment Functional Transfer Goals Pt Will Perform All Functional Transfers Independently;With assistive devices Plan Treatment Interventions ADL retraining;Functional transfer training OT Frequency 2-5x/wk Time for Goal Achievement 1 wk Recommendation OT Recommendation Rehab (pt lives alone; prefers [place] for rehab) OT Evaluation Minutes 10 OT Individual Treatment Minutes 32 Time In / Time Out [phone] * Alexandra Anaya BSW - 02/17/2014 10:24 AM EDT 02/17/14 1021 Assessment Complete Actual Discharge Plan 02/17 SW: Met with pt in room to discuss discharge plans. PT recommending Rehab. Discussed facility options, levels of care, insurance guidelines, & referral process. Pt prefers 1 [place] acute rehab, [address] [facility]. Will need insurance precert. Discussed with pt insurance may not approve acute rehab. Friend to provide transportation. Completed by CC/SW Yes Psychosocial Assessment Referral Source Physician Referral Reason Discharge Planning Assessed In person interview with patient Mental Status Alert and oriented Does patient need transit manager? No Mini-mental exam completed? No Decision Maker Him/Herself Activities of Daily Living Independent Living Arrangements Alone Where did the patient come from? Private Residence Support Systems Family Members Quality of Support System Adequate Behavioral Orientated Identified Needs and Options Rehab;SNF Discussed discharge plan with patient/family Yes Agency/Facilty Options Offered, list provided Yes Community Resources Referral Institutional Placement--SNF;Rehab Hospital Patient/Family Prefer Specific Post Acute Care Provider (Specify) Transportation at discharge Personal vehicle Anticipated post-acute care needs Nursing Facility * Tiffany Elizondo APRN - 02/17/2014 7:41 AM EDT [facility] Orthopaedic Surgery Progress Note Admit Date: 02/16/2014 HPI: Stella Hylton is a 68 y.o. female admitted for work-up and treatment for Primary localized osteoarthrosis, pelvic region and thigh, right [715.15]. Objective: Lab Results Component Value Date WBC 7.7 02/09/2014 RBC 4.49 02/09/2014 HGB 11.1* 02/17/2014 HCT 33.0* 02/17/2014 Lab Results Component Value Date INR 1.01 02/09/2014 Patient Vitals for the past 8 hrs: BP Temp Temp src Pulse Resp SpO2 02/17/14 0356 114/45 mmHg 99 ??F (37.2 ??C) Oral 72 18 92 % 02/17/14 0056 110/50 mmHg - - 86 18 96 % Procedure(s): RIGHT TOTAL HIP REPLACEMENT (Right) Patient is in no acute distress. States some intermittent nausea Palpable distal pulses. Brisk capillary refill. Negative Homans sign. Soft compartments. Incision is clean and dry. No active bleeding. Dorsiflexion: Toes up and down. Plan: Doing fine from an orthopaedic standpoint. Advance as directed. Will continue to monitor. Tiffany Elizondo APRN Cosigned by Bruce Oh MD at 02/27/2014 9:32 PM EDT * Florecita Londono RN - 02/16/2014 4:44 PM EDT Pt a&o, post op vitals stable, neurovascular checks WNL. Dressing to right hip c,d,&i. Prn meds for pain control. Aboots and gel packs in place. Educated pt on c&db to prevent pneumonia. Pt resting comfortably. Will continue to monitor. documented in this encounter H&P Notes * Chanel Jade MD - 02/16/2014 7:12 AM EDT Surgery H&P Chief complaint: Right Hip OA HPI: This is a 68 y.o. year old female patient who presents today for surgical treatment of the above problem. Pt c/o right hip pain r/t OA. He activity is limited by pain. She denies LE numbness but doesadmit to some swelling in her legs r/t varicose veins. She denies h/o DVT. History & Physical Past Medical History Diagnosis Date ??? Arthritis ??? Motion sickness ??? Hyperlipidemia Past Surgical History Procedure Laterality Date ??? Hysterectomy ??? Hemorrhoid surgery ??? Lumbar disc surgery 11/03/2012 Surgeon: Elza Bautista MD; Location: [facility] MAIN OR; Service: No current facility-administered medications on file prior to encounter. Current Outpatient Prescriptions on File Prior to Encounter Medication Sig Dispense Refill ??? atorvastatin (LIPITOR) 10 mg tablet Take 1 tablet by mouth daily. 30 tablet 11 ??? loratadine-pseudoephedrine (LORATADINE-PSEUDOEPHEDRINE) 10-240 mg Tb24 per tablet Take 1 Tab bymouth daily. 30 Tab 5 Voltaren No Known Allergies History Social History ??? Marital Status: Spouse Name: N/A Number of Children: N/A ??? Years of Education: N/A Occupational History ??? Not on file. Social History Main Topics ??? Smoking status: Former Smoker -- 0.50 packs/day for 25 years Types: Cigarettes ??? Smokeless tobacco: Never Used Comment: quit ~ ??? Alcohol Use: No ??? Drug Use: No ??? Sexual Activity: Not on file Other Topics Concern ??? Not on file Social History Narrative ??? No narrative on file Family History Problem Relation Age of Onset ??? Early Father ??? Early Sister ??? Early Brother ??? Anesth Problems Neg Hx Review of Systems As above and all other relevant systems are negative except she admits to rare heartburn and admitsto snoring. She had a UTI about 3 weeks ago which has been treated. She denies dysuria and fever. Filed Vitals: 02/16/14 0710 BP: 141/90 Pulse: 70 Temp: 97.9 ??F (36.6 ??C) Resp: 16 Physical Exam General: No acute distress. Neuro: alert. oriented Eyes: pupils equal. Extra-ocular muscles intact Mouth: Oral mucosa moist. + upper plate Nose: midline. Good air movement Neck: supple. Chest: symmetric excursion with respiration. Respirations unlabored and regular. CTA B Heart: Regular rate and rhythm w/o R/G/M, no bruits Abdomen: soft, non-tender, non-distended, +bowel sounds Extremities: no C/C/E, + Varicose veins, no calf tenderness, 2+DP Relevant Labs and Imaging reviewed. Lab Results Component Value Date WBC 7.7 02/09/2014 HGB 13.1 02/09/2014 HCT 40.0 02/09/2014 PLT 296 02/09/2014 CHOLESTEROL 168 09/26/2013 TRIG 96 09/26/2013 HDL 47 09/26/2013 LDLCALC 102* 09/26/2013 ALT 13 09/26/2013 AST 12 09/26/2013 NA 146* 02/09/2014 K 4.5 02/09/2014 CL 107 02/09/2014 CREATININE 0.60 02/09/2014 BUN 12 02/09/2014 CO2 28 02/09/2014 INR 1.01 02/09/2014 GLU 122* 02/09/2014 Assessment: Right Hip OA Plan: Procedure(s): RIGHT TOTAL HIP REPLACEMENT (ANTERIOR/ KYLEE) per Bruce Oh MD documented in this encounter Procedure Notes * Bruce Oh MD - 02/27/2014 10:02 PM EDT [facility] OPERATIVE REPORT Stella Hylton 02/16/2014 PRE-OP DIAGNOSIS: Primary localized osteoarthrosis, pelvic region and thigh, right [715.15] POST-OP DIAGNOSIS: Primary localized osteoarthrosis, pelvic region and thigh, right [715.1 PROCEDURE: Procedure(s): RIGHT TOTAL HIP REPLACEMENT SURGEON: Surgeon(s) and Role: * Bruce Oh MD - Primary STORAGE FACILITY RENTAL CLERK: Lalo MONREAL,PROCESS TECHNICIAN ANESTHESIA: GETA ESTIMATED BLOOD LOSS: Per Anesthsia COMPLICATIONS: None IMPLANTS USED: Implant Name Type Inv. Item Serial No. Shipwright Apprentice Lot No. LRB No. Used HEAD V40 CERAMIC DELTA BIOLOX 36MM/-2.5 - [id number] [employer]YLE[employer] [id number] Right 1 STEM FEMORAL ACCOLADE II 127 DEGREE SIZE 5 - [id number] [employer] [id number] Right 1 INSERT TRIDENT X 3 0 DEGREE 36MM D - [id number] [employer] [id number] Right 1 SCREW BONE CANCELLOUS 6.5MM X 30MM - [id number] KYLE[employer]:ORTH[employer] [id number] Right 1 SHELL ACETABULAR HOLE CLUSTER HEMISPHERICAL TRITANIUM D 52MM - [id number] [employer]TH[employer] [id number] Right 1 HISTORY OF PRESENT ILLNESS: Stella Hylton is a(n) 68 y.o. female with a history of Primary localized osteoarthrosis, pelvic region and thigh, right [715.15] who underwent multiple conservative therapies including but not limited to anti-inflammatories, injections, activity modification, weight loss, and use of assistive devices. Once all of these measures failed, she elected to undergo surgicalintervention. No guarantees were made or implied. Informed consent was obtained. DETAILS OF PROCEDURE: The patient was given the appropriate preoperative antibiotics, brought into the operating room, and placed in the supine position on the [place] table. He was prepped and draped in a sterile fashion. Timeout was performed. After making sure the antibiotics were in, we went ahead and made a standard 10 cm incision 1 cm lateral to the ASIS towards the lateral knee. Divided the subcutaneous in line with the incision. Took it down. I identified the fascia of the TFL. We incised this sharply. Once I had opened this up, I palpated the interval between it and the sartorius, I took it down to the femoral neck capsule and put traction on either side. I identified the lateral circumflex vessels which were coagulated using a clamp and Bovie. I also released them, as well as releasing no-name fascia. Once these were done, I made a capsular window using the superior border of the neck, the vastus lateralis, and the indirect head of the rectus femoris as my borders. I took all this tissue up. I put retractors on either side of the femoral neck. Once I was there, I brought in the C-arm and balanced the pelvis. I identified where on the femoral neck I wanted to make my cut and marked it with the Bovie. I used an oscillating saw to make a dual neck osteotomy at this level. I used a Anayeli to remove the interval piece. I put some traction on the leg and removed the remaining head from the acetabulum with a power corkscrew and a Hilliard. Once it was out, I used a pituitary long-handled scalpel to remove the remaining labrum from the remaining acetabulum. Once it was gone, I began sequentially reaming. I first medialized with a 45 reamer. I then brought in the C-arm. I balanced my pelvis. I then checked it as I sequentially reamed up. I reamed up to approximately a 51 reamer. I felt this had good bleeding bone. The patient had good bone quality. I thought this would be the correct size. I went ahead and mounted in a 52 cup. It went in very well and had very good fixation. I checked it under fluoroscopy. After placing the cup, I then put in 1 screws in the usual manner for increased fixation. At this point, I went ahead and put the liner in without difficulty. Once the liner was in place, I went ahead and turned to the femur. I did some more medial and lateral capsular releasing. I externally rotated, dropped and adducted the leg. At this point, I began broaching with a box osteotome and continued to a 5 broach. I kept checking under fluoroscopy to make sure I got the right stem size. Once I had this sized, I went ahead and trialed it with a -2.5 head. Ireduced it. It was stable through a range of motion. I took x-rays of the left and right hip as described by HOLA and templated them on the back. At this point, I felt that the stem was the correct size. I also felt that our length also was within about a millimeter or so. At this point, I came back in and carefully dislocated the hip. It was very stable. I then went ahead and put the real 5 stem in and the real -2.5 ceramic head on. I reduced it and it remained stable through range of motion. Once again, I took x-rays as described by HOLA and I felt that we were within about a millimeter or 2 of both length and offset. I felt this was very good fixation, good alignment, and good stability. At this point, I went ahead and copiously irrigated with 2 liters of normal saline. I achieved hemostasis using Bel and the Bovie. I then closed that fascia of the tensor fascia jaun with a running locking suture, and closed the rest in the usual layered fashion. The patient tolerated the procedure well. POSTOPERATIVE COURSE: Weightbearing as tolerated and total joint program. Bruce Oh M.D. * Unknown, Unknown - 02/23/2014 10:17 AM EDTAssociated Order(s): SCANNED PRE/POST PROCEDURES * Unknown, Unknown - 02/23/2014 10:17 AM EDTAssociated Order(s): SCANNED ANESTHESIA FORMS * Bruce Oh MD - 02/16/2014 10:33 AM EDT [facility] OPERATIVE/PROCEDURE NOTE Stella Hylton February 16, 2014 PRE-OP DIAGNOSIS: Primary localized osteoarthrosis, pelvic region and thigh, right [715.15] POST-OP DIAGNOSIS: Primary localized osteoarthrosis, pelvic region and thigh, right [715.1 PROCEDURE: Procedure(s): RIGHT TOTAL HIP REPLACEMENT SURGEON: Surgeon(s) and Role: * Bruce Oh MD - Primary STORAGE FACILITY RENTAL CLERK: , Lalo MONREAL APRN ANESTHESIA: General w/Block ESTIMATED BLOOD LOSS: 250 mL ACTIVITY: wbat OTHER INFO: informed consent obtained DISPOSITION: Stable to PACU Bruce Oh MD Date: 02/16/2014 documented in this encounter Consult Notes * Ottoniel Conde MD - 02/16/2014 1:36 PM EDT [facility]/[place]/[place], [place] NAME: CARMELITACrow [facility]#: [id number] LOCATION/ROOM: [address] FACILITY: [facility] DICTATOR: Ottoniel Conde CONSULTATION MEDICAL CONSULTATION DATE OF CONSULTATION: 02/16/2014 DATE OF ADMISSION: 02/16/2014 ADMISSION DIAGNOSIS: Right hip osteoarthritis. CHIEF COMPLAINT: Right hip pain. HISTORY OF PRESENT ILLNESS: The patient is a pleasant 68-year-old white female who presented to [facility] with a complaint of right hip pain due to osteoarthritis. She has had limited activity due to pain associated with her osteoarthritis. She has undergone a subsequent right total hip replacement on 02/16/2014 and is recovering well in the PACU. She still has significant pain but denies any chest pain, shortness of breath or nausea. PAST MEDICAL HISTORY: She has a past medical history significant for a history of osteoarthritis, motion sickness, as well as a history of hyperlipidemia. PAST SURGICAL HISTORY: Her surgical history includes a hysterectomy, hemorrhoid surgery as well as a history of lumbar disk surgery on 10/28/2012. FAMILY HISTORY: Father with history of early , otherwise not pertinent. REVIEW OF SYSTEMS: Denies any headache, blurred vision, sore throat, cough or congestion. All other systems reviewed and negative. SOCIAL HISTORY: TOBACCO: None currently, quit in 2005. Prior smoked one-half pack a day x25 years. ALCOHOL: None. ALLERGIES: Allergies include celecoxib. MEDICATIONS: Home medications include loratadine/Sudafed, also Voltaren and Lipitor. PHYSICAL EXAMINATION: VITAL SIGNS: Blood pressure is 125/53. Pulse 58. Respiratory rate is 13. Temperature 97.6 degrees. HEENT: Extraocular movements are intact. Oropharynx is clear. NECK: Supple. CARDIAC: Regular rate and rhythm. LUNGS: Clear to auscultation. No rales or rhonchi noted. ABDOMEN: Soft, nontender, nondistended. Positive bowel sounds. EXTREMITIES: No cyanosis or clubbing. LABORATORY DATA: Labs include a sodium of 146 from 02/09/2014, glucose at 122 on 02/09/2014. ASSESSMENT AND PLAN: 1. Osteoarthritis, status post right total hip replacement: The patient is recovering well in the PACU. Will continue therapy. Defer DVT prophylaxis to orthopedics. Will continue to follow. 2. Hypernatremia: Will recheck BMP. 3. History of hypercholesterolemia: Continue Lipitor. Ottoniel Conde MD By: Job ID: [id number] DocID: [id number] CC: Mann Irene MD * Ottoniel Conde MD - 02/16/2014 1:30 PM EDTAssociated Order(s): IP CONSULT TO HOSPITALIST Consult Dictated by Matthew Conde MD, Dictation# [id number] Active Hospital Problems Diagnosis ??? OA (osteoarthritis)-s/p RIGHT TOTAL HIP REPLACEMENT 02/16/14. ??? Hypernatremia Recheck BMP. ??? Hypercholesterolemia Resolved Hospital Problems Diagnosis No resolved problems to display. Matthew Conde documented in this encounter Nursing Notes * Keisha Henriquez - 02/15/2014 7:[address] Hinds to do h7p. documented in this encounter Miscellaneous Notes * Plan of Care - Gilda Contreras RN - 02/19/2014 6:29 PM EDT Problem: Altered Bowel Elimination - 78 Goal: Maintain normal pattern of bowel elimination/bowel function return to normal Outcome: Progressing Dulcolax given PO this AM and suppository this evening. Awaiting results * Plan of Care - Luzma Wood RN - 02/17/2014 2:57 PM EDT SNF update: Pt does qualify for SNF. We might have a bed 02/20. I will let care coordination know on Thursday. * Plan of Care - Luzma Wood RN - 02/17/2014 10:44 AM EDT SNF eval: Awaiting therapy eval and then [facility] response from insurance. documented in this encounter Plan of Treatment Upcoming Encounters Date Type Department Care Team (Late st Contact Info) Description 05/16/2024 9:30 AM EST Office Visit [facility] [address] [place] [address] Gilda Francis PA [address] [place] [address] Pending Results Name Type Priority Associated Diagnoses Date /Time PAT UPDATED SPECIMEN Blood Bank STAT 01/2014 7:41 AM EDT CROSSMATCH SUMMARY Blood Bank STAT 2013 7:35 AM EDT Scheduled Orders Name Type Priority Associated Diagnoses Orde r Schedule CROSSMATCH SUMMARY Blood Bank STAT Once f or 1 Occurrences starting 02/16/2014 until 02/16/2014 documented as of this encounter Procedures Procedure Name Priority Date/Time Associated Diagnosis Comments SCANNED PRE/POST PROCEDURES 02/23/2014 10:17 AM EDT SCANNED ANESTHESIA FORMS 02/23/2014 10:17 AM EDT SCANNED RHYTHM STRIPS 02/23/2014 10:17 AM EDT HEMOGLOBIN AND HEMATOCRIT Early AM 02/19/2014 7:53 AM EDT HEMOGLOBIN AND HEMATOCRIT Early AM 02/18/2014 5:25 AM EDT HEMOGLOBIN AND HEMATOCRIT Early AM 02/17/2014 6:22 AM EDT BASIC METABOLIC PANEL Routine 02/17/2014 6:22 AM EDT BASIC METABOLIC PANEL Routine 02/16/2014 2:51 PM EDT IP CONSULT TO CARE COORDINATION Routine 02/16/2014 1:45 PM EDT IP CONSULT TO SOCIAL WORK Routine 02/16/2014 1:45 PM EDT XR PELVIS STAT 02/16/2014 11:29 AM EDT IP CONSULT TO HOSPITALIST Routine 02/16/2014 11:02 AM EDT Procedure Note - Ottoniel Conde MD - 02/16/2014 1:30 PM EDTThis note is in progress. Consult Dictated by Matthew Conde MD, Dictation# [id number] Active Hospital Problems Diagnosis ? ? OA (osteoarthritis)-s/p RIGHT TOTAL HIP REPLACEMENT 02/16/14. ? ? Hypernatremia Recheck BMP. ? ? Hypercholesterolemia Resolved Hospital Problems Diagnosis No resolved problems to display. Matthew Conde FL < 1 HOUR SIVA 02/16/2014 10:36 AM EDT XR HIP INTRAOPERATIVE RIGHT 2 VIEW SIVA 02/16/2014 10:36 AM EDT TOTAL HIP ARTHROPLASTY/REPLAC EMENT-ANTERIOR OR REVISION ANTERIOR (KYLEE/NIC) 02/16/2014 9:12 AM EDT Primary localized osteoarthrosis , pelvic region and thigh, right Special Needs FAX CPT;15164 PAT UPDATED SPECIMEN STAT 02/16/2014 7:41 AM EDT documented in this encounter Results * SCANNED PRE/POST PROCEDURES (02/23/2014 10:17 AM EDT) Narrative Procedure Note Unknown, Unknown - 02/23/2014 10:17 AM EDT us Unknown Unknown PROCEDURE/MINOR SURGICAL ORDERAB LES Final Result * SCANNED ANESTHESIA FORMS (02/23/2014 10:17 AM EDT) Narrative Procedure Note Unknown, Unknown - 02/23/2014 10:17 AM EDT us Unknown Unknown PROCEDURE/MINOR SURGICAL ORDERAB LES Final Result * SCANNED RHYTHM STRIPS (02/23/2014 10:17 AM EDT) Anatomical Region Laterality Modality Other us Unknown Unknown IMG ECG ORDERABLES Final Result * (ABNORMAL) HEMOGLOBIN AND HEMATOCRIT (02/19/2014 7:53 AM EDT) Hgb 10.2(L) 12.0 - 15.6 gm/dL [facility] Hct 30.4(L) 35.7 - 45.9 % [facility] Blood specimen (specimen) 02/19/2014 7:53 AM EDT 02/19/2014 8:17 AM EDT Narrative [facility] - 02/19/2014 8:28 AM EDT Call MD if Hct is less than 28 Tiffany Elizondo PROCESS TECHNICIAN HEMATOLOGY ORDERABLES Karen l Result Performing Organization Address City/[facility] Co de Phone Number [facility] [address] [place] [address] * (ABNORMAL) HEMOGLOBIN AND HEMATOCRIT (02/18/2014 5:25 AM EDT) [facility] Hgb 10.7(L) 12.0 - 15.6 gm/dL [facility] Hct 31.9(L) 35.7 - 45.9 % [facility] Blood specimen (specimen) 02/18/2014 5:25 AM EDT 02/18/2014 6:10 AM EDT Narrative [facility] - 02/18/2014 6:22 AM EDT Call MD if Hct is less than 28 Tiffany Elizondo PROCESS TECHNICIAN HEMATOLOGY ORDERABLES Karen l Result Performing Organization Address City/[facility] Co de Phone Number [facility] [address] [place] [address] * (ABNORMAL) BASIC METABOLIC PANEL (02/17/2014 6:22 AM EDT) Pathologist [facility] Sodium 139 136 - 145 mmol/L [facility] Potassium 4.1 3.5 - 5.0 mmol/L [facility] Chloride 101 98 - 107 mmol/L [facility] Total CO2 31(H) 22 - 29 mmol/L [facility] Anion Gap 7 7 - 16 mmol/L [facility] Calcium 8.9 8.8 - 10.2 mg/dL [facility] Glucose Lvl 116(H) 82 - 100 mg/dL [facility] BUN 14 8 - 23 mg/dL [facility] Creatinine 0.77 0.51 - 1.30 mg/dL [facility] GFR Afr Am >60 [facility] Comment: GFR is estimated using creatinine, age, gender, and race. ??GFR has been validated for patients between 18 and 70 years of age. GFR has not been validated for women, patients with serious comorbid conditions, or persons with extremes of body size, muscle mass, or nutritional status. ??For additional information: ??www.kidney.org. GFR Non Afr Am >60 [facility] Blood specimen (specimen) UPPER LIMB STRUCTURE / Unknown 02/17/2014 6:22 AM EDT 02/17/2014 6:51 AM EDT Ottoniel Conde MD CHEMISTRY ORDERABLES Edited Result - Final Performing Organization Address [facility] Co de Phone Number [facility] [address] [place] [address] * (ABNORMAL) HEMOGLOBIN AND HEMATOCRIT (02/17/2014 6:22 AM EDT) Hgb 11.1(L) 12.0 - 15.6 gm/dL [facility] Hct 33.0(L) 35.7 - 45.9 % [facility] Blood specimen (specimen) 02/17/2014 6:22 AM EDT 02/17/2014 6:51 AM EDT Narrative [facility] - 02/17/2014 7:03 AM EDT Call MD if Hct is less than 28 Tiffany Elizondo APRN HEMATOLOGY ORDERABLES Karen l Result [facility] [address] [place] [address] * (ABNORMAL) BASIC METABOLIC PANEL (02/16/2014 2:51 PM EDT) Sodium 143 136 - 145 mmol/L [facility] Potassium 4.3 3.5 - 5.0 mmol/L [facility] Chloride 106 98 - 107 mmol/L [facility] Total CO2 29 22 - 29 mmol/L [facility] Anion Gap 8 7 - 16 mmol/L [facility] Calcium 9.0 8.8 - 10.2 mg/dL [facility] Glucose Lvl 125(H) 82 - 100 mg/dL [facility] BUN 12 8 - 23 mg/dL [facility] Creatinine 0.56 0.51 - 1.30 mg/dL [facility] GFR Afr Am >60 [facility] Comment: GFR is estimated using creatinine, age, gender, and race. ??GFR has been validated for patients between 18 and 70 years of age. GFR has not been validated for women, patients with serious comorbid conditions, or persons with extremes of body size, muscle mass, or nutritional status. ??For additional information: ??www.kidney.org. GFR Non Afr Am >60 [facility] Blood specimen (specimen) UPPER LIMB STRUCTURE / Unknown 02/16/2014 2:51 PM EDT 02/16/2014 3:03 PM EDT us Ottoniel Conde MD CHEMISTRY ORDERABLES Edited Result - Final Performing Organization Address City/State/[facility] Co de Phone Number [facility] [address] [place] [address] * XR PELVIS (02/16/2014 11:29 AM EDT) [...] Baseline postoperative right total hip arthroplasty. Tiffany Elizondo PATRICIA [facility] DIAGNOSTIC IMAGING ORD ERABLES Final Result * FL < 1 HOUR (02/16/2014 10:36 AM EDT) Narrative PACS - 02/16/2014 1:32 PM EDT Fluoroscopy was performed. The radiologist was not in attendance. No permanent images were obtained. This dictation is being made for record keeping purposes. Procedure Note Jonathan Ge RT - 02/16/2014 Fluoroscopy was performed. The radiologist was not in attendance. Nopermanent images were obtained. This dictation is being made for recordkeeping purposes. Bruce Oh MD [facility] FLUOROSCOPY ORDERABLES F inal Result PACS * XR HIP INTRAOPERATIVE RIGHT (02/16/2014 10:36 [...] minute. IMPRESSION: Digital spots from right ANANTH. Bruce Oh MD [facility] DIAGNOSTIC IMAGING ORDER LILLIAN Final Result documented in this encounter Visit Diagnoses Diagnosis OA (osteoarthritis)-s/p RIGHT TOTAL HIP REPLACEMENT 02/16/14.- Primary Osteoarthrosis, unspecified whether generalized or localized, unspecified site OA (osteoarthritis) Osteoarthrosis, unspecified whether generalized or localized, unspecified site Hypercholesterolemia Pure hypercholesterolemia Hypernatremia Hyperosmolality and/or hypernatremia Hypercholesterolemia Pure hypercholesterolemia Hypernatremia Hyperosmolality and/or hypernatremia documented in this encounter Administered Medications Inactive Administered Medications - up to 1 most recent administrations Medication Order MAR Action Action Date Dose Rate Site acetaminophen (OFIRMEV) infusion 1,000 mg 1,000 mg, Intravenous, PREPROCEDURE, 1 dose, Starting on Thu02/15/14 at 0911, Until Gretel 02/16/14 at 0745, Pre-op for Total Joint Replacement, Administer over 15 Minutes, For patient weight >= 50 kg Maximum adult dose of acetaminophen is 4000 mg from all sources in 24 hours. , Pre-op (Holding/SDS Meds) IV Started 02/16/2014 7:30 AM EDT 1,000 mg 400 mL/hr acetaminophen (TYLENOL) tablet 650 mg 650 mg, Oral, EVERY 4 HOURS PRN, 1 dose, Starting on Gretel 02/16/14 at 1345, Until Gretel 02/16/14 at 2241, Fever, T > 101.5, Maximum adult dose of acetaminophen is 4000 mg from all sources in 24 hours. , Post-op Given 02/16/2014 10:41 PM EDT 650 mg acetaminophen (TYLENOL) tablet 650 mg 650 mg, Oral, EVERY 4 HOURS PRN, Starting on 02/18/14 at 0659, Until 02/20/14 at 1846, Pain, Fever, Maximum adult dose of acetaminophen is 4000 mg from all sources in 24 hours. Given 02/18/2014 7:31 AM EDT 650 mg atorvastatin (LIPITOR) tablet 10 mg 10 mg, Oral, DAILY, First dose on Gretel 02/16/14 at 1400, Until Discontinued Given 02/20/2014 10:45 AM EDT 10 mg benzocaine-menthol 15-3.6 mg Lozg 1 lozenge 1 Lozenge, Buccal, PRN, Starting on Gretel 02/16/14 at 1345, Until 02/20/14 at 1846, Sore Throat, Waste Sort Code = BKC, Post-op Given 02/18/2014 6:23 AM EDT 1 Lozenge bisacodyl (DULCOLAX) EC tablet 10 mg 10 mg, Oral, 2 TIMES DAILY PRN, Starting on Gretel 02/16/14 at 1345, Until Thu02/20/14 at 1846, Constipation, If no bowel movement in 48 hours, Post-op Given 02/19/2014 8:03 AM EDT 10 mg bisacodyl (DULCOLAX) suppository 10 mg 10 mg, Rectal, 2 TIMES DAILY PRN, Starting on Gretel 02/16/14 at 1345, Until Thu02/20/14 at 1846, Constipation, If no bowel movement in 48 hours, Post-op Given 02/19/2014 3:56 PM EDT 10 mg ceFAZolin (ANCEF) 2 g in dextrose 5% 50 mL IVPB 2 g, Intravenous, ONCE PREPROCEDURE, 1 dose, On Gretel 02/16/14 at 0645, Administer over 30 Minutes, Pre-op (Antibiotic) IV Started 02/16/2014 9:12 AM EDT 2 g 100 mL/hr ceFAZolin (ANCEF) 2 g in dextrose 5% 50 mL IVPB 2 g, Intravenous, *EVERY 8 HOURS, 2 doses, First dose on Thu02/16/14 at 1400, Last dose on Thu02/16/14 at 2200, Administer over 30 Minutes, Not to exceed 24 hrs post surgery end time, Post-op IV Started 02/16/2014 10:41 PM EDT 2 g 100 mL/hr docusate sodium (COLACE) capsule 100 mg 100 mg, Oral, 2 TIMES DAILY, First dose on Thu02/16/14 at 1400, Until Discontinued, Do not crush or chew., Post-op Given 02/20/2014 10:45 AM EDT 100 mg enoxaparin (LOVENOX) injection 40 mg 40 mg, Subcutaneous, DAILY, First dose on Thu02/17/14 at 0900, Until Discontinued, Post-op Given 02/20/2014 10:46 AM EDT 40 mg famotidine (PEPCID) 20 mg/2 mL injection 20 mg 20 mg, Intravenous, PREPROCEDURE, 1 dose, Starting on Thu02/15/14 at 0911, Until Thu02/16/14 at 0730, pre-op, Slow IV push (greater than 2 minutes). To be given in SDS/Pre-op Holding Area Use 10 mL normal saline to dilute and administer famotidine IV, Pre-op (Holding/SDS Meds) Given 02/16/2014 7:30 AM EDT 20 mg fentaNYL (SUBLIMAZE) 50 mcg/mL injection 25 mcg 25 mcg, Intravenous, PRN, 4 doses, Starting on Gretel 02/16/14 at 1108, Until Gretel 02/16/14 at 1147, Pain, Moderate Pain (Pain Score 4-7), Severe Pain (Pain Score 8-10), For initial pain. Maximum dose not to exceed 100 mcg., PACU Given 02/16/2014 11:47 AM EDT 25 mcg fentaNYL (SUBLIMAZE) 50 mcg/mL injection 1 dose, Starting on Gretel 02/16/14 at 1117, Until Gretel 02/16/14 at 1121, BRITTANY POWELL: cabinet override gabapentin (NEURONTIN) capsule 300 mg 300 mg, Oral, PREPROCEDURE, 1 dose, Starting on Thu02/15/14 at 0911, Until Gretel 02/16/14 at 0729, Pre-op for Total Joint Replacement, Give with a small sip of water. For patient age 60-69 years. HOLD IF PATIENT HAS TAKEN USUAL DOSE IN THE AM., Pre-op (Holding/SDS Meds) Given 02/16/2014 7:29 AM EDT 300 mg lactated ringers infusion Intravenous, at 100 mL/hr, PREPROCEDURE CONTINUOUS, Starting on Thu02/15/14 at 0911, Until Gretel 02/16/14 at 1101, To be given in SDS/Pre-op Holding Area, Pre-op (Holding/SDS Meds) New Bag 02/16/2014 7:25 AM EDT 100 mL/hr lactated ringers infusion Intravenous, at 75 mL/hr, CONTINUOUS, Starting on Gretel 02/16/14 at 1115, Until 02/18/14 at 0748, Post-op Rate/Dose Verify 02/16/2014 2:52 PM EDT 75 mL/hr morphine injection 2 mg 2 mg, Intravenous, EVERY 3 HOURS PRN, Starting on Gretel 02/16/14 at 1345, Until 02/20/14 at 1846, Severe Pain (Pain Score 8-10), Begin with lowest dose unless otherwise directed. Reassess pain in 15 minutes. If pain unrelieved, remainder of dose may be given to patient., Post-op morphine injection 4 mg 4 mg, Intravenous, EVERY 3 HOURS PRN, Starting on Gretel 02/16/14 at 1345, Until 02/20/14 at 1846, Severe Pain (Pain Score 8-10), Begin with lowest dose unless otherwise directed. Reassess pain in 15 minutes. If pain unrelieved, remainder of dose may be given to patient., Post-op ondansetron (ZOFRAN) 4 mg/2 mL injection 4 mg 4 mg, Intravenous, EVERY 4 HOURS PRN, Starting on Gretel 02/16/14 at 1345, Until 02/20/14 at 1846, Nausea, Post-op Given 02/18/2014 9:32 AM EDT 4 mg ondansetron (ZOFRAN-ODT) disintegrating tablet 4 mg 4 mg, Oral, EVERY 4 HOURS PRN, Starting on Gretel 02/16/14 at 1345, Until 02/20/14 at 1846, Nausea, Dissolve in mouth, Post-op Given 02/18/2014 8:09 PM EDT 4 mg oxyCODONE (OxyCONTIN) CR tablet 10 mg 10 mg, Oral, PREPROCEDURE, 1 dose, Starting on Thu02/15/14 at 0911, Until Gretel 02/16/14 at 0730, Pre-op for Total Joint Replacement, Give with a small sip of water. For patient age 60-74 years, Pre-op (Holding/SDS Meds) Given 02/16/2014 7:30 AM EDT 10 mg oxyCODONE (ROXICODONE) immediate release tablet 5 mg 5 mg, Oral, EVERY 4 HOURS PRN, Starting on Gretel 02/16/14 at 1108, Until Gretel 02/16/14 at 1344, Mild Pain (Pain Score 1-3), Moderate Pain (Pain Score 4-7), Give if patient has received IV acetaminophen (OFIRMEV) , PACU Given 02/16/2014 11:49 AM EDT 5 mg oxyCODONE (ROXICODONE) immediate release tablet 5-15 mg 5-15 mg, Oral, EVERY 3 HOURS PRN, Starting on Gretel 02/16/14 at 1345, Until 02/20/14 at 1846, Moderate Pain (Pain Score 4-7), Begin with lowest dose unless otherwise directed. Reassess pain in one hour. If pain unrelieved, remainder of dose may be given to patient. Use exclusively if receiving IV/oral acetaminophen (TYLENOL or OFIRMEV)., Post-op Given 02/20/2014 10:45 AM EDT 15 mg promethazine (PHENERGAN) suppository 25 mg 25 mg, Rectal, EVERY 4 HOURS PRN, Starting on 02/19/14 at 1254, Until 02/20/14 at 1846, Nausea senna (SENOKOT) tablet 2 tablet 2 Tablet, Oral, NIGHTLY, First dose on Gretel 02/16/14 at 2100, Until Discontinued, Post-op Given 02/19/2014 9:23 PM EDT 2 Tablets sodium chloride 0.9% syringe Intravenous, EVERY 8 HOURS SCHEDULED (3 times per day), First dose on 02/18/14 at 0800, Until Discontinued, Flush every shift or after IV medication Given 02/19/2014 5:39 AM EDT sodium chloride 0.9% syringe Intravenous, PRN, Starting on 02/18/14 at 0747, Until 02/20/14 at 1846, Line Care, Flush saline lock after medications and PRN to maintain patency documented in this encounter Discontinued Medications Medication Sig Discontinue Reason Start Date End Da te diclofenac (VOLTAREN) 75 mg Oral Tablet, Delayed Release (E.C.) TAKE 1 TABLET BY MOUTH TWICE A DAY (WITH A MEAL) Stop Taking at Discharge 02/11/2014 02/18/2014 documented as of this encounter Active and Recently Administered Medications Times are shown in EDT. Scheduled Medication Order 02/18/2014 02/19/2014 02/20/2014 atorvastatin (LIPITOR) tablet 10 mg (CANCELED) 10 mg, Oral, DAILY, First dose on Gretel 02/16/14 at 1400, Until Discontinued 1735 (Given - Provider: Gilda Contreras, UMA - Comment: nauseated with breakfast) 0803 (Given - Provider: Gilda Contreras RN) 1045 (Given - Provider: Nidhi Browning RN) docusate sodium (COLACE) capsule 100 mg (CANCELED) 100 mg, Oral, 2 TIMES DAILY, First dose on Gretel 02/16/14 at 1400, Until Discontinued, Do not crush or chew., Post-op 0938 (Not Given - Provider: Gilda Contreras RN - Reason: Patient/family refused - Comment: nauseated with breakfast)2009 (Given - Provider: Elida Alcantar RN) 08 (Given - Provider: Gilda Contreras RN)2122 (Given - Provider: Yary Hale, UMA) 104 (Given - Provider: Nidhi Browning, UMA) enoxaparin (LOVENOX) injection 40 mg (CANCELED) 40 mg, Subcutaneous, DAILY, First dose on Thu02/17/14 at 0900, Until Discontinued, Post-op 0933 (Given - Provider: Gilda Contreras RN) 802 (Given - Provider: Gilda Contreras RN) 104 (Given - Provider: Nidhi Browning RN) senna (SENOKOT) tablet 2 tablet (CANCELED) 2 Tablet, Oral, NIGHTLY, First dose on Gretel 02/16/14 at 2100, Until Discontinued, Post-op 2009 (Given - Provider: Elida Alcantar RN) 2122 (Given - Provider: Yary Hale RN) sodium chloride 0.9% syringe (CANCELED) Intravenous, EVERY 8 HOURS SCHEDULED (3 times per day), First dose on 02/18/14 at 0800, Until Discontinued, Flush every shift or after IV medication 0933 (Given - Provider: Gilda Contreras RN)1350 (Given - Provider: Gilda Contreras RN)2200 (Given - Provider: Elida Alcantar RN) 0539 (Given - Provider: Elida Alcantar RN)1549 (Not Given - Provider: Gilda Contreras RN - Reason: Loss of IV access)2122 (Not Given - Provider: Yary Hale RN - Reason: Loss of IV access) 0503 (Not Given - Provider: Yary Hale RN - Reason: Loss of IV access)1437 (Not Given - Provider: Nidhi Browning RN - Reason: Loss of IV access) PRN Medication Order 02/18/2014 02/19/2014 02/20/2014 acetaminophen (TYLENOL) tablet 650 mg (CANCELED) 650 mg, Oral, EVERY 4 HOURS PRN, Starting on 02/18/14 at 0659, Until 02/20/14 at 1846, Pain, Fever, Maximum adult dose of acetaminophen is 4000 mg from all sources in 24 hours. 0731 (Given - Provider: Gilda Contreras, UMA) benzocaine-menthol 15-3.6 mg Lozg 1 lozenge (CANCELED) 1 Lozenge, Buccal, PRN, Starting on Gretel 02/16/14 at 1345, Until 02/20/14 at 1846, Sore Throat, Waste Sort Code = BKC, Post-op 0623 (Given - Provider: Theresa Campbell, UMA) bisacodyl (DULCOLAX) EC tablet 10 mg (CANCELED) 10 mg, Oral, 2 TIMES DAILY PRN, Starting on Gretel 02/16/14 at 1345, Until 02/20/14 at 1846, Constipation, If no bowel movement in 48 hours, Post-op 0938 (Not Given - Provider: Gilda Contreras RN - Reason: Other - Comment: n/v)1732 (Given - Provider: Gilda Contreras, UMA) 0803 (Given - Provider: Gilda Contreras, UMA) bisacodyl (DULCOLAX) suppository 10 mg (CANCELED) 10 mg, Rectal, 2 TIMES DAILY PRN, Starting on Gretel 02/16/14 at 1345, Until 02/20/14 at 1846, Constipation, If no bowel movement in 48 hours, Post-op 1556 (Given - Provider: Gilda Contreras, UMA) ondansetron (ZOFRAN) 4 mg/2 mL injection 4 mg (CANCELED)(Linked Group 1) 4 mg, Intravenous, EVERY 4 HOURS PRN, Starting on Gretel 02/16/14 at 1345, Until 02/20/14 at 1846, Nausea, Post-op 0932 (Given - Provider: Gilda Contreras, UMA)2008 (See Alternative - Provider: Elida Alcantar RN) ondansetron (ZOFRAN-ODT) disintegrating tablet 4 mg (CANCELED)(Linked Group 1) 4 mg, Oral, EVERY 4 HOURS PRN, Starting on Gretel 02/16/14 at 1345, Until 02/20/14 at 1846, Nausea, Dissolve in mouth, Post-op 0932 (See Alternative - Provider: Gilda Contreras RN)2008 (Given - Provider: Elida Alcantar, UMA) oxyCODONE (ROXICODONE) immediate release tablet 5-15 mg (CANCELED) 5-15 mg, Oral, EVERY 3 HOURS PRN, Starting on Gretel 02/16/14 at 1345, Until 02/20/14 at 1846, Moderate Pain (Pain Score 4-7), Begin with lowest dose unless otherwise directed. Reassess pain in one hour. If pain unrelieved, remainder of dose may be given to patient. Use exclusively if receiving IV/oral acetaminophen (TYLENOL or OFIRMEV)., Post-op 0623 (Given - Provider: Theresa Campbell RN)1731 (Given - Provider: Gilda Contreras, UMA)1831 (Given - Provider: Gilda Contreras RN) 0213 (Given - Provider: Elida Alcantar, UMA)0802 (Given - Provider: Gilda Contreras, UMA)1555 (Given - Provider: Gilda Conterras, UMA)2123 (Given - Provider: Yary Hale, UMA) 0556 (Given - Provider: Yary Hale, RN)1045 (Given - Provider: Nidhi Browning, UMA) Linked Groups Order Group 1: ondansetron (ZOFRAN) 4 mg/2 mL injection 4 mg (CANCELED)Jump to med 4 mg, Intravenous, EVERY 4 HOURS PRN, Starting on Gretel 02/16/14 at 1345, Until 02/20/14 at 1846, Nausea, Post-op Or ondansetron (ZOFRAN-ODT) disintegrating tablet 4 mg (CANCELED)Jump to med 4 mg, Oral, EVERY 4 HOURS PRN, Starting on Gretel 02/16/14 at 1345, Until 02/20/14 at 1846, Nausea, Dissolve in mouth, Post-op documented in this encounter Orders Medications Ordered That [place] ht Not Have Been Administered Count Last Ordered Date First Ordered Date promethazine (PHENERGAN) suppository 25 mg 1 02/19/2014 sodium chloride 0.9% syringe 1 02/18/2014 aluminum & magnesium hydroxi de-simethicone 200-200-20 mg/5 mL suspension 15 mL 1 02/16/2014 dimenhyDRINATE (DRAMAMINE) injection 25 mg 1 02/16/2014 ferrous sulfate tablet 325 mg 1 02/16/2014 Hydromorphone (DILAUDID) injection 0.25 mg 1 02/16/2014 loratadine-pseudoephedrine ( CLARITIN-D 24-hour) 10-240 mg per tablet 1 tablet 1 02/16/2014 magnesium hydroxide (MILK OF MAGNESIA) 400 mg/5 mL suspension 30 mL 1 02/16/2014 meperidine (DEMEROL) 25 mg/m L injection (PF) 12.5 mg 1 02/16/2014 morphine injection 2 mg 1 02/16/2014 morphine injection 4 mg 1 02/16/2014 mupirocin (BACTROBAN) 2 % ointment 1 2013 oxyCODONE-acetaminophen (PER COCET) 5-325 mg per tablet 1-2 tablet 1 02/16/2014 sodium chloride 0.9 % irrigation 1 02/17/20 14 tranexamic acid injection 1 02/16/2014 celecoxib (CeleBREX) capsule 400 mg 1 02/15 fentaNYL (SUBLIMAZE) 50 mcg/ mL injection 25 mcg 1 02/15/2014 midazolam (VERSED) injection 1 mg 1 014 Nursing Count Last Ordered Date First Orde red Date NURSING COMMUNICATION 4 02/20/20142013 MEDICARE INPATIENT CERTIFICATION 1 02/18/20 14 ADMISSION 1 02/16/2014 CHANGE DRESSING 1 02/16/2014 ASHER CATHETER - DISCONTINUE 1 02/16/2014 INCENTIVE SPIROMETRY - NURSING 1 02/16/2014 INTAKE AND OUTPUT 1 02/16/2014 STRAIGHT CATH 1 02/16/2014 TURN PATIENT 1 02/16/2014 VITAL SIGNS 2 02/16/2014 Consult Count Last Ordered Date First Orde red Date IP CONSULT TO CARE COORDINATION 1 4 IP CONSULT TO HOSPITALIST 1 02/16/2014 IP CONSULT TO SOCIAL WORK 1 02/16/2014 OT Count Last Ordered Date First Orde red OT EVAL AND TREAT 1 02/16/2014 PT Count Last Ordered Date First Orde red Date IP CONSULT TO PHYSICAL THERAPY 1 02/16/2014 Respiratory Care Count Last Ordered Date First Ordered Date INCENTIVE SPIROMETRY 1 02/16/2014 OXYGEN THERAPY 1 02/16/2014 Transfer Count Last Ordered Date First Orde red Date BED REQUEST 1 02/16/2014 Discharge Count Last Ordered Date First Orde red Date DISCHARGE PATIENT 1 02/18/2014 documented in this encounter Care Teams Web Press Operator Assistant Relationship Specialty Start Date End Date aMnn Irene MD [address] [place] [id number] PCP - General Internal Medicine 08/23/12 07/13/22 documented as of this encounter
--- OUTSIDE RECORDS SUMMARY | 2024-03-27 15:08 | XMS_ITS | Encounter Summary ---
Author Organization [place] [address] Care Team Providers Care Money Counter Name Role Phone Mann Irene MD Primary Care Provider [phone] Encounter Details Date Type Department Care Team (Latest Contact Info) Description 02/20/2014 6:45 PM EDT - 02/25/2014 3:10 PM EDT Hospital Encounter [facility] [address] [place] [address] Enrique Baker MD [address] [place] [id number] Screening for tuberculosis (Primary Dx); At risk for constipation; Pain; High cholesterol; Prevention of blood clots; Anemia; Hypokalemia Discharge Disposition: Home Health Care Svc Social History Tobacco Use Types Packs/Day Years [...] Sign Reading Time Taken Comments Blood Pressure 127/90 02/25/2014 6:06 AM EDT Pulse 77 02/25/2014 6:06 AM EDT Temperature 36.7 ??C (98.1 ??F) 02/25/2014 6:06 AM ED T Respiratory Rate 16 02/25/2014 6:06 AM EDT Oxygen Saturation 99% 02/25/2014 6:06 AM EDT Inhaled Oxygen Concentration - - Weight 86.2 kg (190 lb) 02/20/2014 7:04 PM EDT Height 160 cm (5' 3 ) 02/20/2014 7:04 PM EDT Body Mass Index 33.66 02/20/2014 7:04 PM EDT documented in this encounter Functional [...] documented in this encounter Discharge Summaries * Enrique Baker MD - 02/26/2014 3:34 PM EDT ADMISSION DATE: 02/20/2014 DISCHARGE DATE: 02/25/2014 FOLLOWUP: Followup is with Dr. Mann Irene and followup with Dr. Bruce Oh. DISCHARGE DIAGNOSES: Status post a right total hip replacement, osteoarthritis and hyperlipidemia. DISCHARGE MEDICATIONS: Atorvastatin 10 mg p.o. daily, Lovenox 40 mg subcutaneously daily, Percocet 5 mg every 6 hours as needed for pain, and Claritin-D as needed for hayfever. HOSPITAL COURSE: The patient had no complications during her stay on the longterm facility. She actually did quite well. Really, there were no problems while she was here. She is now discharged in good condition. She participated in physical and occupational therapy. Enrique Baker MD By: pepper Job ID: [id number] DocID: [id number] CC: * Enrique Baker MD - 02/25/2014 8:04 AM EDT ADMISSION DATE: 02/20/2014 DISCHARGE DATE: 02/25/2014 DISCHARGE DIAGNOSIS: 1. Status post a right total hip replacement. 2. Osteoarthritis. 3. Hyperlipidemia. DISCHARGE MEDICATIONS: Percocet 1 tablet every 4 to 6 hours as needed for pain. Lovenox 40 mg subcutaneously for 14 days. Atorvastatin 10 mg daily and Claritin-D daily. FOLLOWUP: With Dr. Bruce hO and follow up with Dr. Mann Irene. HOSPITAL COURSE: The patient had no complications on the longterm facility. She underwent a right total hip replacement by Dr. Oh on February 16, transferred to the longterm facility. She did well with physical and occupational therapy. At time of discharge, her hemoglobin is 10.7, white count 10.5, platelets 436,000. Potassium is 3.5 with a creatinine of 0.59. If there are any questions, I can be reached at [phone]. Enrique Baker MD By: kaya Job ID: [id number] DocID: [id number] CC: documented in this encounter Discharge Instructions * Discharge Instructions* Kemi Guardado RN - 02/25/2014 9:18 AM EDT Other Instructions Your Home Health Agency of choice is [facility]. They will be providing Physical Therapy, Occupational Therapy and Nursing in your home. You may contact them by calling [phone]. Pain Assessment Location: Type: (Instructed) Current pain management regimen (Instructed) IF PAIN INTENSIFIES OR PAIN IS UNRELIEVED WITH MEDICATIONS ORDERED, CALL YOUR DOCTOR Individual Instructions/Custom Documents/Teaching Sheets Use this area to list any individualized instructions, appointments, continued therapies, etc that the patient/family is to continue after discharge. If additional space is needed, use Additional Instructions. {IP DISCHARGE OTHER HOME CARE INSTRUCTIONS:[id number]:: None } * Attachments The following attachments cannot be sent through Care Everywhere. * HIP REPLACEMENT, TOTAL, CARE AFTER (TAJIK) documented in this encounter Medications at Time of Discharge oxyCODONE-acetami nophen (PERCOCET) 5-325 mg Oral Tablet Take 1 tablet by mouth every 6 hours as needed for Pain for up to 30 days. 60 tablet 0 02/25/2014 03/27/2014 documented as of this encounter Ordered Prescriptions Prescription Sig Dispense Quantity Refills Last Filled Start Date End Date enoxaparin (LOVENOX) 40 mg/0.4 mL SubQ Syringe Subcutaneous (Inject under the skin) 0.4 mL daily. 14 Syringe 0 02/25/2014 4 oxyCODONE-acetami nophen (PERCOCET) 5-325 mg Oral Tablet Take 1 tablet by mouth every 6 hours as needed for Pain for up to 30 days. 60 tablet 0 02/25/2014 4 rivaroxaban (XARELTO) 10 mg Oral Tablet Take 1 tablet by mouth daily. 7 tablet 0 02/25/2014 4 oxyCODONE (ROXICODONE) 5 mg Oral Tablet Take 1 tablet by mouth every 6 hours as needed. 10 tablet 0 02/25/2014 4 documented in this encounter Discharge Disposition Disposition Code Departure Means Destination Home Health Care [facility] Tara watt documented in this encounter Progress Notes * Kathleen Meek LPN - 02/25/2014 2:21 PM EDT Patient given d/c information. Patient understands information. Patient did request Tylenol to helprelieve pain in the car ride home. Patient transport called to take patient to main lobby. * Faby Singh RN - 02/25/2014 2:24 AM EDT Pt alert and oriented. Pt up independently. PRN Roxicodone given for right hip pain. Scott in left knee clean, dry, and intact. Pt sleeping in bed. Will continue to monitor. * Marietta Lynn BSW - 02/24/2014 3:13 PM EDT 02-24--Spoke with Tracy with [facility]; they have not heard from PCP's office yet regarding paperwork for 4WW. Informed resident of this; she stated that she will be using cane inside home and only will use 4WW for long distances. She is agreeable to discharge home and have 4WW delivered to home on Thursday. Resident is being discharged home on Thursday. No further needs noted. * Citlaly Kent OT - 02/24/2014 3:12 PM EDT 02/24/14 1420 OT Subjective Patient Room/Unit 511 OT Subjective Comments #1 OT Discharge Note Precautions Total Hip Replacement Abduction;External rotation;Extension Weight Bearing Status Weight bearing as tolerated Cognition Overall Cognitive Status WFL Safety Judgement Good awareness of safety precautions/techniques Pain Screening PT/OT Patient Currently in Pain Denies Observation Presentation Patient resting in bed Bed Mobility Rolling Independent Supine to Sit Independent Sit to Supine Independent Transfers Sit to Stand Independent Stand to Sit Independent Bed to Chair Independent Stand Pivot Transfers Independent Additional Comments with RW Functional Transfers Toilet Transfers Independent Tub Transfers Independent (step over side of tub) Additional Comments bathroom equipment discussed including tub chair, grab bar for side of tub and transfer tub bench, pt verbalized prefers and plans to get transfer tub bench Current Level of Function Where Assessed Edge of bed Equipment Provided Information Technology Director;Sock aid;Long-handled shoe horn;Long-handled sponge LE Bathing Assistance Independent LE Dressing Assistance Independent Balance Sitting - Static Good Sitting - Dynamic Good Standing - Static Good Standing - Dynamic Good Interventions Homemaking ADL home task with RW independent SBA/supervision with cane Patient/Family Education worked with pt viewing bathroom equipment on computer to identify tub equipment, pt plans on purhcasing transfer tub bench ADL Goals Pt Will Perform All ADL's Met Functional Transfer Goals Pt Will Perform All Functional Transfers Met Arm Goals Pt will complete HEP Discontinued (with comments) (pt declined HEP) Pt Will Complete Theraband Exer Discontinued (with comments) (pt decline UE ther ex) Additional Goals Perform simple homemaking tasks Met Additional Goals Met Additionals Goals 2 Met Assessment Additional Comments all goals met Plan Treatment Interventions ADL retraining;Functional transfer training;Equipment eval/education OT Frequency Complete Additional Comments pt for d/c home tomorrow Recommendation OT Recommendation Home independently;Home OT OT Individual Treatment Minutes 38 (ADL 10 min tub transfer: 15 min equip rec: 13 min) Time In / Time Out 6561-4415 * Kathy Leavitt RN - 02/24/2014 3:03 PM EDT Remains up in chair. Medicated x 1 for complaints of pain. [place] intact to rt hip. * Marietta Lynn BSW - 02/24/2014 10:47 AM EDT 02-24--care conference held this day; nursing, therapy, social work and resident attended. NURSING--resident admitted for PT/OT after a hip fracture.. She is on a regular diet and receiving pain medication as needed. THERAPY--resident is at independent to supervision level with ADL's and transfers.She is ambulating 450' with rolling walker and has completed 8 steps. SOCIAL WORK--discharge has been set for Thursday, 10-18. She would like to use [facility]. [facility] can only provide PT/RN, resident does not want to use another HH agency. She would also like a 4WW with seat. Referral had been faxed to [facility] for delivery of walker. Tracy at [facility] stated that resident's has a 'gated plan' with [employer] and needs paperwork to be completed from PCP. She has faxed information to PCP's office and requested that paperwork be completed today,so walker can be delivered prior to discharge. SW informed resident of above. HH orders have been sent to [facility]; they will providehome care at discharge. To follow. * Citlaly Kent OT - 02/23/2014 1:30 PM EDT 02/23/14 1100 OT Subjective Patient Room/Unit 5115 OT Subjective Comments #1 OT pt agreeable to particpate Precautions Total Hip Replacement External rotation;Extension Weight Bearing Status Weight bearing as tolerated Cognition Overall Cognitive Status WFL Arousal/Alertness Appropriate responses to stimuli Attention Span Appears intact Orientation Level Oriented X4 Following Commands Follows all commands and directions without difficulty Safety Judgement Decreased awareness of safety techniques;Requires verbal cues for safety Pain Screening PT/OT Patient Currently in Pain Denies Transfers Sit to Stand Independent Stand to Sit Independent Stand Pivot Transfers Independent Additional Comments with RW Functional Transfers Toilet Transfers Independent Additional Comments with RW Balance Sitting - Static Good Sitting - Dynamic Good Standing - Static Good Standing - Dynamic Good Special Balance Tests with RW Interventions Homemaking ADL kitchen/home task using RW supervision vc's for safety with RW also worked on home task using cane SBA Transfer Training practiced transfer techniques to various types of chairs( sofa, recliner chair ) etc. vc's for safety, supervision Assessment Progress Progressing toward goals Plan Treatment Interventions ADL retraining;Functional transfer training Additional Comments cont per plan Recommendation OT Recommendation Home independently OT Individual Treatment Minutes 30 (ADL home task: 20 min transfers: 10 min) Time In / Time Out [id number] * Marietta Lynn BSW - 02/23/2014 1:04 PM EDT 02-23--Social work met with resident who stated that she lives alone and will return home after SNFstay. 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 She has a cane for home use, but is interested in a 4WW with seat. She has not used HH in past, but would like [facility] to service. There are 5 steps outside home and a flight to basement for laundry. Therapy has stated that resident is safe to be discharged home on Thursday. Orders have been obtained and sent for wheeled walker with seat and HH. CC is scheduled for 02-24 @ 9:45. To follow. * Enrique Baker MD - 02/23/2014 9:48 AM EDT Stella Hylton is a 68 y.o. female patient. Assessment: Condition: In stable condition. Improving. Doing well no new issues Labs in AM. 1. Screening for tuberculosis 2. At risk for constipation 3. Pain 4. High cholesterol 5. Prevention of blood clots 6. Anemia Past Medical History Diagnosis Date ??? Arthritis ??? Motion sickness ??? Hyperlipidemia Allergies Allergen Reactions ??? Celecoxib Rash Active Problems: OA (osteoarthritis)-s/p RIGHT TOTAL HIP REPLACEMENT 02/16/14. Hip joint replacement by other means Other physical therapy Filed Vitals: 02/22/14 0504 02/22/14 1411 02/22/14 2144 02/23/14 0615 BP: 145/73 122/54 133/53 155/85 Pulse: 78 78 84 78 Temp: 98.4 ??F (36.9 ??C) 98.3 ??F (36.8 ??C) 98.8 ??F (37.1 ??C) 98.2 ??F (36.8 ??C) TempSrc: Oral Oral Oral Oral Resp: 20 18 20 18 Height: Weight: SpO2: 91% 95% 97% 96% Subjective: Symptoms: Stable. Diet: Adequate intake. Activity level: Returning to normal. Pain: She reports no pain. Objective: General Appearance: Comfortable. Vital signs: (most recent): Blood pressure 155/85, pulse 78, temperature 98.2 ??F (36.8 ??C), temperature source Oral, resp. rate 18, height 5' 3 (1.6 m), weight 190 lb (86.183 kg), SpO2 96.00%, notcurrently . Lungs: Normal respiratory rate and normal effort. Breath sounds clear to auscultation. Heart: Normal rate. Regular rhythm. Abdomen: Abdomen is soft and non-distended. Bowel sounds are normal. Enrique Baker MD 02/23/2014 * Erma Bond, PT - 02/23/2014 9:44 AM EDT 02/23/14 0927 PT Subjective Patient Room/Unit 5116-PT Follow up PT Subjective Comments #1 Pt pleasant and cooperative with PT this morning. States she will be going home on Thursday. Has no concerns about going home. PT Subjective Comments #2 Would like to try a cane today, moreno for use on the steps. Pain Screening PT/OT Patient Currently in Pain Denies Additional Comments reports she had pain earlier but not now since she has had her pain meds Cognition Overall Cognitive Status WFL Arousal/Alertness Appropriate responses to stimuli Attention Span Appears intact Memory Appears intact Orientation Level Oriented X4 Following Commands Follows all commands and directions without difficulty Precautions Total Hip Replacement External rotation;Extension;Abduction Weight Bearing Status Weight bearing as tolerated;Right lower extremity Precaution info given To use call light to request assistance with all mobililty Other precautions anterior hip precautions Observation Presentation Patient seated in chair Bed Mobility Rolling Independent Supine to Sit Independent Transfers Sit to Stand Independent Stand to Sit Independent Additional Comments with RW and straight cane Gait PT Gait Supervision Gait Distance (Feet) 450 Feet ([address] cane with SBA and no LOB) Assistive Device 2 Wheel walker Pattern Slow jovany;Antalgic;Decreased stance time R Weight Bearing Status Weight bearing as tolerated Stair Management Technique One rail R;Step to pattern;Forwards;With cane Stair Management Assistance Stand by assist Number of Stairs 8 Balance Sitting - Static Good Sitting - Dynamic Good Standing - Static Good Standing - Dynamic Good (with RW, good - with st. cane) Exercises Nu Step 6 mins at L2 Exercise Additional Comments standing exs as below and also knee flexion Education Education Written Home Exercise Program;Discharge planning;Safety with mobility;Safe and proper technique with gait pattern;Safe and proper technique with transfers Patient Safety Patient Safety Patient left in chair with needs in reach;Nursing notified of status Standing Standing Heel Raises 20 Marches 20 Standing Mini Squats 20 Assessment Prognosis Good Progress Progressing toward goals Rationale for Skilled Therapy Balance Deficits;Fall Risk Goals Pt will perform Sit to Stand Independently;Met Pt Will Transfer Bed/Chair Independently;Met Pt Will Perform Home Exer Program With verbal cues required/provided;Met Plan Treatment/Interventions Continue with current plan of care Additional Comments d/c planned for Sat to home with home PT and RW Recommendation PT Recommendation Home independently;Home PT Additional PT discharge information would benefit from walker with a seat as she lives alone and would be able to use the seat to move things safely around home, kitchen, etc. Equipment Recommended 2 Wheel walker PT Individual Treatment Minutes 40 (20 gt, 20 ther ex) Time In / Time Out 845/925 * Rosa Isela Geronimo RN - 02/23/2014 4:52 AM EDT Resident alert and oriented. Up to bathroom with assist x 1 and a walker. Right hip incision. RA with scott in place. No c/o. Call light in reach. * Erma Bond, PT - 02/22/2014 2:02 PM EDT 02/22/14 1200 PT Subjective Patient Room/Unit 7032-PT Follow up PT Subjective Comments #1 Pt pleasant and cooperative with PT this morning before lunch. Reports that she typically takes pain meds in the morning and then again before bed. States that she would like to go home on Thursday. Pain Screening PT/OT Patient Currently in Pain Denies Cognition Overall Cognitive Status WFL Arousal/Alertness Appropriate responses to stimuli Orientation Level Oriented X4 Following Commands Follows all commands and directions without difficulty Precautions Weight Bearing Status Weight bearing as tolerated;Right lower extremity Precaution info given Yes;To use call light to request assistance with all mobililty Other precautions anterior hip precautions Observation Presentation Patient resting in bed Bed Mobility Rolling Independent Supine to Sit Independent Transfers Sit to Stand Supervision Stand to Sit Supervision Additional Comments with RW Gait PT Gait Stand by assist Gait Distance (Feet) 450 Feet (58) Assistive Device 2 Wheel walker Pattern Slow jovany Weight Bearing Status Weight bearing as tolerated Stair Management Technique Two rails;Step to pattern;Forwards;With gait belt Stair Management Assistance Stand by assist;With verbal cues Number of Stairs 8 Balance Sitting - Static Good Sitting - Dynamic Good Standing - Static Good (with RW) Standing - Dynamic Good minus;Good (with RW) Exercises Nu Step 5 mins at L2 Exercise Additional Comments 2# left LE for seated exs Other exercise (comment) practiced sup/sit from mat in gym and also in bed in room Education Education Safety with mobility;Cues for proper technique;Discharge planning;Safe and proper technique with transfers;Safe and proper technique with gait pattern Patient Safety Patient Safety Patient in bed with needs in reach Seated Seated LAQ's 20 Seated Hamstring Curls 20 with red T band Seated Hip Flex/Marching 20 Seated Hip ADD Isometrics 20 Seated Hip IR/ER Resisted Ex 20 Seated DF/PF 20 Standing Standing Heel Raises 20 Marches 20 Standing Mini Squats 20 Assessment Prognosis Good Progress Progressing toward goals Rationale for Skilled Therapy Balance Deficits Goals Pt Will Go Sit to Supine Independently;Met Pt Will Go Supine To Sit Independently;Met Plan Treatment/Interventions Continue with current plan of care Additional Comments plan is for d/c to home on Thursday with home PT and RW Recommendation PT Recommendation Home independently;Home PT Equipment Recommended 2 Wheel walker PT Individual Treatment Minutes 40 (15 gt, 25 ther ex) Time In / Time Out 1120/12p * Citlaly Kent, OT - 02/22/2014 9:56 AM EDT 02/22/14 0910 OT Subjective Patient Room/Unit 6879 OT Subjective Comments #1 OT pt agreeable to participate Precautions Weight Bearing Status Weight bearing as tolerated Precaution info given Yes;To use call light to request assistance with all mobililty Cognition Overall Cognitive Status WFL Arousal/Alertness Appropriate responses to stimuli Orientation Level Oriented X4 Following Commands Follows all commands and directions without difficulty Safety Judgement Decreased awareness of safety techniques;Requires verbal cues for safety Pain Screening PT/OT Patient Currently in Pain Denies Additional Comments pt reports had pain medication prior to OT session Observation Presentation Patient resting in bed Bed Mobility Rolling Independent Supine to Sit Independent Transfers Sit to Stand Stand by assist;With verbal cues Stand to Sit Stand by assist;With verbal cues Stand Pivot Transfers Stand by assist;With verbal cues Additional Comments vc's to keep walker with her Functional Transfers Shower Transfers Stand by assist Current Level of Function Where Assessed Standing at sink;Shower standing;Shower sitting Equipment Provided Information Technology Director;Sock aid Grooming Assistance Stand by UE Bathing Assistance Independent LE Bathing Assistance Minimal (to wash right foot, SBA for majority of lower bathing) UE Dressing Assistance Independent LE Dressing Assistance Stand by Hygiene Assistance Patient independent Balance Sitting - Static Good Sitting - Dynamic Good Standing - Static Good;Good minus Standing - Dynamic Good minus;Fair plus Special Balance Tests with RW Assessment Progress Progressing toward goals Rationale for Skilled Therapy Fall Risk;Not safe with independent transfers;Needs verbal/tactile cues for ADL's Plan Treatment Interventions ADL retraining;Functional transfer training Additional Comments cont per plan Recommendation OT Recommendation Home independently;Home OT OT Individual Treatment Minutes 38 (ADL 28 min transfers 10 min) Time In / Time Out 5923-9257 * Rosa Isela Geronimo RN - 02/22/2014 4:15 AM EDT Resident up to bathroom with assist X 1 and a walker. Right hip incision SLOT HOST with scott in place.Denies any pain. No c/o. Call light in reach. * Marii Aranda RN - 02/21/2014 8:05 PM EDT Pt requested earlier for shower with time restraints unable to assist. When told it would be after evening meal--seemed ok with the time. Though when approached by Brooke and again by myself pt refused with pain also being an issue now. * Samantha Garrido, PT - 02/21/2014 1:24 PM EDT 02/21/14 0928 PT Subjective Patient Room/Unit 5112--SNF PT EVAL PT Subjective Comments #1 agreeable to PT eval, pleasant and cooperative Admitting Diagnosis 68 yo female admitted 02/16/14 for elective R ANANTH (anterior approach) per Dr Oh Past Med Hx arthritis, hyperlipidemia, lumbar disc sx 11/03/13 Pain Screening PT/OT Patient Currently in Pain Yes Pain Rating 5 Pain Type Surgical Pain Location Hip Pain Orientation Right Pain Intervention(s) Repositioned Cognition Overall Cognitive Status WFL Receptive able to follow directions and conversation appropriately Expressive able to make needs and wants appropriately known Arousal/Alertness Appropriate responses to stimuli Attention Span Appears intact Memory Appears intact Orientation Level Oriented X4 Following Commands Follows all commands and directions without difficulty Safety Judgement Decreased awareness of safety techniques;Requires verbal cues for safety Awareness of Errors Assistance required to identify errors made Insight Fully aware of deficits Problem Solving Assistance required to identify errors made Precautions Weight Bearing Status Right lower extremity;Weight bearing as tolerated Precaution info given To use call light to request assistance with all mobililty Other precautions anterior approach Home Living/Prior Function Type of Home House Home Layout Two level;Laundry in basement;Able to Live on Main level with bedroom/bathroom;Stairs to enter w/ rails Number of Steps 3 down + 2 up from back door Home Equipment None Level of Assistance Independent with ADLs ;Independent with functional transfers;Independent with homemaking;Ambulatory in home;Ambulatory in the community Lives With Alone Activity Tolerance Endurance Endurance does not limit participation in activity Sitting Balance Sits without support for > 30 sec Vitals VSS Sensation Light Touch No apparent deficits Sharp/Dull No apparent deficits Proprioception Proprioception No apparent deficits Perception Initiation Appears intact Motor Planning Appears intact Perseveration Not present Coordination Intact Observation Presentation Patient seated edge of bed Posture 5'3 ; 190 lbs per chart RLE Assessment RLE Assessment WFL Additional Comments strenth grossly 3/5 LLE Assessment LLE Assessment WFL Bed Mobility Sit to Supine Min assist Transfers Sit to Stand With verbal cues;Contact guard assist Stand to Sit With verbal cues;Contact guard assist Bed to Chair With verbal cues;Contact guard assist Stand Pivot Transfers With verbal cues;Contact guard assist Additional Comments with RW Gait PT Gait Contact guard assist Gait Distance (Feet) 60 Feet (x2 trials) Assistive Device 2 Wheel walker Pattern Antalgic;Step to;Slow jovany Weight Bearing Status Weight bearing as tolerated Balance Sitting - Static Good Sitting - Dynamic Good Standing - Static Good minus Standing - Dynamic Fair plus Special Balance Tests with RW Exercise Exercise Yes Additional Comments B LE ther ex sitting 15 reps each marches, LAQ, ankle pumps, hip AB/AD Education Education Patient/Family Education;Role of Therapy;Safety with mobility;Cues for proper technique;Discharge planning;Up with assistance only;Precautions;Safe and proper technique with transfers;Safe and proper technique with gait pattern;Written Home Exercise Program Patient Safety Patient Safety Patient in bed with needs in reach Equipment Leg Press 7 minutes with 2 red bands and 2 black bands Continuous Passive Motion CPM No Assessment Assessment Decreased gait;Decreased functional mobility;Decreased balance;Decreased RightLower Extremity strength;Decreased Left Lower Extremity strength;Decreased activity tolerance ;Decreased endurance Prognosis Good;With continued PT s/p acute discharge Rationale for Skilled Therapy Fall Risk;Balance Deficits;Not safe with independent transfers;Not safe ambulating independently Goals PT GOALS (Yes/No) Yes Add Goals Pt Will Go Sit to Supine Independently Pt Will Go Supine To Sit Independently Pt will perform Sit to Stand Independently Pt Will Transfer Bed/Chair Independently Pt Will Ambulate With 2 wheel walker;> 200 feet;Independently Pt Will Demo Standing Balance 4/5 indep, moves/returns center of grav 1-2 /1 plane Goal Formulation With patient Time for Goal Achievement 7 treatment days Plan Treatment/Interventions Gait training;Bed mobility;Neuromuscular re- education;Balance training;Functional transfer training;LE strengthening/ROM;Increase activity tolerance ;Patient/Family training;Equipment eval/education;Compensatory technique education;Continued evaluation;Endurance training PT Frequency 5-6x/week Recommendation PT Recommendation Home PT;Outpatient PT Equipment Recommended 2 Wheel walker PT Evaluation Minutes 15 PT Individual Treatment Minutes 35 (15 gait; 20 ther ex) Time In / Time Out [id number] * Citlaly Kent, OT - 02/21/2014 11:57 AM EDT 02/21/14 1005 OT Subjective Patient Room/Unit 5112 Evaluation Type SNF OT Eval OT Subjective Comments #1 pt pleasant and cooperative OT Subjective Comments #2 verbalizes concern re: employer having her job for her to return to Admitting Diagnosis 68 yo female admitted 02/16/14 for elective R ANANTH (anterior approach) per Dr Oh Past Med Hx arthritis, hyperlipidemia, lumbar disc sx 11/03/13 Precautions Weight Bearing Status Weight bearing as tolerated Precaution info given Yes;To use call light to request assistance with all mobililty Prior Function Level of Assistance Independent with ADLs ;Independent with functional transfers;Independent with homemaking;Ambulatory in home;Ambulatory in the community Lives With Alone ADL Assistance Independent Homemaking Assistance Independent Driving Yes Shopping Independent Vocational part time employment (works 13 hr/day [employer]) Home Living Type of Home House Home Layout Two level;Laundry in basement;Able to Live on Main level with bedroom/bathroom;Stairs to enter w/ rails Number of Steps 3 down + 2 from back door Bathroom Shower/Tub Tub/Shower unit Bathroom Toilet Standard Bathroom Equipment None Bathroom Accessibility Accessible Home Equipment None Cognition Overall Cognitive Status WFL Receptive WFL Expressive WFL Arousal/Alertness Appropriate responses to stimuli Attention Span Appears intact Memory Appears intact Orientation Level Oriented X4 Following Commands Follows all commands and directions without difficulty Safety Judgement Decreased awareness of safety techniques;Requires verbal cues for safety Awareness of Errors Assistance required to identify errors made Insight Fully aware of deficits Pain Screening PT/OT Patient Currently in Pain Yes Pain Rating 4 Pain Type Surgical Pain Location Hip Pain Orientation Right Pain Intervention(s) Repositioned Observation Presentation Patient resting in bed Right UE Assessment RUE Assessment WFL Additional Comments general weakness 4/5 Left UE Assessment LUE Assessment WFL Additional Comments 4/5 Hand Function Hand Dominance Right Gross Grasp Functional Coordination Functional Current Level of Function Where Assessed Standing at sink;Edge of bed Equipment Provided Information Technology Director;Sock aid Eating Assistance Independent Grooming Assistance Stand by;Contact guard (hair grooming standing at sink) UE Dressing Assistance Independent LE Dressing Assistance Contact guard;Pull up over hips;Thread RLE into underwear;Thread RLE into pants;Don/doff R sock Toileting Contact guard Hygiene Assistance Patient independent Additional Comments pt received hip kit ADl equipment at [facility] Mobility Rolling Independent Supine to Sit Independent Transfers Sit to Stand With verbal cues;Contact guard assist Stand to Sit With verbal cues;Contact guard assist Stand Pivot Transfers Contact guard assist Additional Comments with RW Functional Transfers Toilet Transfers Contact guard assist Tub Transfers Not tested Additional Comments with RW Balance Sitting - Static Good Sitting - Dynamic Good Standing - Static Good minus Standing - Dynamic Fair plus Special Balance Tests with rW Activity Tolerance Endurance Endurance does not limit participation in activity Sitting Balance Sits without support for > 30 sec Vision OT Vision Comment appears WFL Sensation Light Touch No apparent deficits Proprioception Proprioception No apparent deficits Perception Initiation Appears intact Motor Planning Appears intact Perseveration Not present Coordination Intact Assessment Assessment Decreased ADL status;Decreased UE strength;Decreased self-care trans;Decreased high-level ADLs Prognosis Good Goal Formulation With Patient Goals Yes ADL Goals Pt Will Perform All ADL's Mod indep Functional Transfer Goals Pt Will Perform All Functional Transfers Mod indep Arm Goals Pt will complete HEP Independently Pt Will Complete Theraband Exer B UE;2 sets;15 reps;Level 2 Theraband;Independently;With good activity tolerance Additional Goals Perform simple homemaking tasks Mod Independent Additional Goals pt will demonstrate independent bed mobility Additionals Goals 2 pt will demonstrate standing 7-10 min with good standing balance independently to complete ADL task Plan Treatment Interventions ADL retraining;Functional transfer training;UE strengthening/ROM;Equipment eval/education OT Frequency 5-6x/week Time for Goal Achievement 7-10 days Recommendation OT Recommendation Home independently;Home OT OT Evaluation Minutes 15 OT Individual Treatment Minutes 25 (ADL: 15 min transfers : 10 min) Time In / Time Out [id number] * Noris Garcia CNA - 02/21/2014 10:54 AM EDT I let the patient know that the shower in her room does not work and that I would have to help her down at the shower room if she wanted to get a shower. Patient asked me if I could give her a showerat around 1400 today because her soap operas are on and she doesn't want to miss them. I told her that at 1400 I will have to get vital signs, etc. and get ready for the shift change; therefore I will not have time to stay in the shower room with her. Patient was understanding. I told her that I would ask 2nd shift if they could take her to the shower if they have time. If they do not have time, I will attempt to assist her to the shower room tomorrow. * Rosa Isela Geronimo RN - 02/21/2014 4:15 AM EDT Resident admitted on evening shift from [facility]. Alert and oriented. Incision to anterior right hip andthigh is intact with scott in place. Scant amount of drainage noted. Dry dressing applied with tegaderm. Resident up to bathroom with assist X 1 and a walker. Medicated X 1 for c/o pain in right hip. Call light in reach. documented in this encounter H&P Notes * Enrique Baker MD - 02/21/2014 8:00 AM EDT [facility]/[place] ([place], [place])/[place], [place] NAME: STELLA HYLTON [facility]#: [id number] LOCATION/ROOM: [place] [address] FACILITY: [facility] DICTATOR: Enrique Baker HISTORY AND PHYSICAL ADMISSION DATE: 02/20/2014 CHIEF COMPLAINT: I had my hip done. HISTORY OF PRESENT ILLNESS: Ms. Hylton is a 68-year-old female who is status post a right total hip replacement by Dr. Oh on February 16. Postoperatively there were no major problems, and she is now transferred to the longterm facility at [facility] for further physical and occupational therapy. ALLERGIES: Celexa causes a rash. CURRENT MEDICATIONS: Atorvastatin 10 mg daily, Colace 100 mg b.i.d., Lovenox 40 mg daily, iron sulfate 325 mg daily, Senokot 2 tablets at night, Tylenol 650 mg as needed, Maalox as needed, Dulcolax p.r.n., Claritin D 24 hour p.r.n., and oxycodone 5-15 mg as needed. SOCIAL HISTORY: She used to smoke but quit smoking about 2005. Very little, if any, alcohol use. PAST MEDICAL HISTORY: Osteoarthritis, hyperlipidemia, status post a hysterectomy, status post a hemorrhoid surgery, and status post lumbar disk surgery. REVIEW OF SYSTEMS: She has not had any nausea or vomiting. No obvious fevers. In review of the notes, there is some history of a urinary tract infection prior to surgery, but currently she is not having any difficulties with her urine. No hematuria. No dysuria. PHYSICAL EXAM: VITAL SIGNS: Blood pressure is 113/89, respirations 18, pulse 86, and T-max 99. LUNGS: Lungs are clear. HEART: Heart is regular. No murmur. ABDOMEN: The abdomen is soft and nontender. No rebound or guarding. EXTREMITIES: No clubbing, cyanosis, or edema. SKIN: The skin is warm and dry. NECK: The neck is supple. No JVD. NEUROLOGIC: No gross deficit. DATA: Hemoglobin on 02/19/2014 was 10.2. IMPRESSION: Status post a right hip replacement. I will continue the medications as above. She has DVT prophylaxis. I will hold any H2-eric or PPIs at present. I will continue with the iron for right now, and I may switch her over to ferrous gluconate. Enrique Baker MD By: gladis Job ID: [id number] Doc ID: [id number] CC: * Enrique Baker MD - 02/21/2014 7:59 AM EDT H&P Dictated [id number] documented in this encounter Miscellaneous Notes * Plan of Care - Unknown, Unknown - 02/27/2014 10:28 AM EDT * Plan of Care - Kathleen Meek LPN - 02/25/2014 4:45 AM EDT Problem: Pain Management Goal: The patient???s stated pain goal will be reached and maintained. The patient???s stated pain goal will be reached and maintained Outcome: Progressing Patient is sleeping at this time. Problem: Prevention: Skin Integrity - 76 For Stage 1 Pressure Ulcer or a Jamil Scale Score of 12 or less Goal: Skin remains intact Outcome: Progressing Surgical incision intact and clean Problem: Safety: Fall Risk Goal: Patient will remain free of falls and injury Outcome: Progressing Patient with room privileges per therapy Problem: Self Care Deficit * Bathing * Toileting * Dressing * Feeding Goal: Res/Family will be able to demonstrate ability to meet self-care needs Outcome: Progressing Patient able to perform ADL's. * Plan of Care - Lauren Ribera RD, LD - 02/23/2014 3:30 PM EDT Problem: No Nutrition Diagnosis at this Time Related to: R TKR 02/16/14 As evidenced by: Po intake 90% Goal: Patient will have an improved nutritional status Interventions: Regular diet Will monitor intake/follow for regular BM's. * Plan of Care - Martina Antoine RN - 02/21/2014 9:36 AM EDT SNF admission coordinator note: Ms. Hylton is admitted to SNF for PT and OT following an acute care stay for an elective right THR. She lives alone and was independent prior to admission. She has steps in her home to her bedroom. She plans to return home after SNF stay. Thanks. documented in this encounter Plan of Treatment Upcoming Encounters Date Type Department Care Team (Late st Contact Info) Description 05/16/2024 9:30 AM EST Office Visit [facility] [address] [place] [id number] Gilda Francis PA [address] [place] [address] documented as of this encounter Procedures Procedure Name Priority Date/Time Associated Diagnosis Comments CBC Routine 02/24/2014 6:10 AM EDT BASIC METABOLIC PANEL Routine 02/24/2014 6:10 AM EDT DME ORDERS Routine 02/23/2014 1:23 PM EDT HOME HEALTH ORDERS (FACE TO FACE ENCOUNTER) Routine 02/23/2014 9:44 AM EDT IP CONSULT TO SOCIAL WORK Routine 02/20/2014 7:09 PM EDT IP CONSULT TO NUTRITION Routine 02/20/2014 7:09 PM EDT documented in this encounter Results * (ABNORMAL) CBC (02/24/2014 6:10 AM EDT) WBC 10.5 4.0 - 11.0 x10(3)/mcL [facility] RBC 3.71(L) 3.80 - 5.10 x10(6)/mcL [facility] Hgb 10.7(L) 12.0 - 15.6 gm/dL [facility] Hct 32.3(L) 35.7 - 45.9 % [facility] MCV 87.2 82.5 - 99.8 fL [facility] MCH 28.8 27.0 - 34.3 pg [facility] MCHC 33.0 32.1 - 35.3 gm/dL [facility] RDW 13.7 11.5 - 15.0 % [facility] Platelet 436(H) 144 - 423 x10(3)/mcL [facility] MPV 6.7(L) 6.8 - 10.8 fL [facility] Blood specimen (specimen) UPPER LIMB STRUCTURE / Unknown 02/24/2014 6:10 AM EDT 02/24/2014 6:25 AM EDT us Enrique Baker MD HEMATOLOGY ORDERABLES Final Re sult [facility] [address] [place] [address] * (ABNORMAL) BASIC METABOLIC PANEL (02/24/2014 6:10 AM EDT) Sodium 136 136 - 145 mmol/L [facility] Potassium 3.5 3.5 - 5.0 mmol/L [facility] Chloride 100 98 - 107 mmol/L [facility] Total CO2 30(H) 22 - 29 mmol/L [facility] Anion Gap 6(L) 7 - 16 mmol/L [facility] Calcium 9.0 8.8 - 10.2 mg/dL [facility] Glucose Lvl 101(H) 82 - 100 mg/dL [facility] BUN 8 8 - 23 mg/dL [facility] Creatinine 0.59 0.51 - 1.30 mg/dL [facility] GFR Afr Am >60 [facility] Comment: GFR is estimated using creatinine, age, gender, and race. ??GFR has been validated for patients between 18 and 70 years of age. GFR has not been validated for women, patients with serious comorbid conditions, or persons with extremes of body size, muscle mass, or nutritional status. ??For additional information: ??www.kidney.org. GFR Non Afr Am >60 [facility] Blood specimen (specimen) UPPER LIMB STRUCTURE / Unknown 02/24/2014 6:10 AM EDT 02/24/2014 6:25 AM EDT Enrique Baker MD CHEMISTRY ORDERABLES Edited Re grzegorz - Final [facility] [address] [place] [address] documented in this encounter Visit Diagnoses Diagnosis OA (osteoarthritis)-s/p RIGHT TOTAL HIP REPLACEMENT 02/16/14.- Primary Osteoarthrosis, unspecified whether generalized or localized, unspecified site Screening for tuberculosis Screening examination for pulmonary tuberculosis At risk for constipation Other specified conditions influencing health status Pain Generalized pain High cholesterol Pure hypercholesterolemia Prevention of blood clots Anemia Anemia, unspecified Hypokalemia Hypopotassemia Hip joint replacement by other means Other physical therapy * Initial Assessments - Unknown, Unknown - 03/06/2014 11:17 AM EDT documented in this encounter Administered Medications Inactive Administered Medications - up to 1 most recent administrations Medication Order MAR Action Action Date Dose Rate Site acetaminophen (TYLENOL) tablet 650 mg 650 mg, Oral, EVERY 4 HOURS PRN, Starting on Thu02/20/14 at 1905, Until Thu02/25/14 at 1912, Pain, Fever, Maximum adult dose of acetaminophen is 4000 mg from all sources in 24 hours. , Discharge/Readmit Given 02/25/2014 2:17 PM EDT 650 mg atorvastatin (LIPITOR) tablet 10 mg 10 mg, Oral, DAILY, First dose on Thu02/21/14 at 0900, Until Discontinued, Discharge/Readmit, Dx: 1. High cholesterolIndications:High cholesterol Given 02/25/2014 8:22 AM EDT 10 mg docusate sodium (COLACE) capsule 100 mg 100 mg, Oral, 2 TIMES DAILY, First dose on Thu02/20/14 at 2100, Until Discontinued, Do not crush or chew., Discharge/Readmit, Dx: 1. At risk for constipationIndications:At risk for constipation Given 02/25/2014 8:22 AM EDT 100 mg enoxaparin (LOVENOX) injection 40 mg 40 mg, Subcutaneous, DAILY, First dose on Thu02/21/14 at 0900, Until Discontinued, Discharge/Readmit, Dx: 1. Prevention of blood clotsIndications:Prevention of blood clots Given 02/25/2014 8:21 AM EDT 40 mg oxyCODONE (ROXICODONE) immediate release tablet 5-15 mg 5-15 mg, Oral, EVERY 3 HOURS PRN, Starting on Thu02/20/14 at 1905, Until Thu02/25/14 at 1912, Moderate Pain (Pain Score 4-7), Begin with lowest dose unless otherwise directed. Reassess pain in one hour. If pain unrelieved, remainder of dose may be given to patient. Use exclusively if receiving IV/oral acetaminophen (TYLENOL or OFIRMEV)., Discharge/Readmit Given 02/25/2014 6:06 AM EDT 15 mg potassium chloride (K-DUR) tablet 20 mEq 20 mEq, Oral, ONCE, 1 dose, On Thu02/25/14 at 0945, Dx: 1. HypokalemiaIndications:Hypokale faye Given 02/25/2014 9:52 AM EDT 20 mEq senna (SENOKOT) tablet 2 tablet 2 Tablet, Oral, NIGHTLY, First dose on Thu02/20/14 at 2100, Until Discontinued, Discharge/Readmit, Dx: 1. At risk for constipationIndications:At risk for constipation Given 02/24/2014 8:46 PM EDT 2 Tablets documented in this encounter Discontinued Medications Medication Sig Discontinue Reason Start Date End Da te enoxaparin (LOVENOX) 40 mg/0.4 mL SubQ Syringe Subcutaneous (Inject under the skin) 0.4 mL daily for 14 days. Stop Taking at Discharge 02/18/2014 02/25/2014 oxyCODONE (ROXICODONE) 5 mg Oral Tablet Take 1-3 tablets by mouth every 4 hours as needed. 02/18/2014 02/25/2014 rivaroxaban (XARELTO) 10 mg Oral Tablet Take 1 tablet by mouth daily. Stop Taking at Discharge 02/25/2014 02/25/2014 oxyCODONE (ROXICODONE) 5 mg Oral Tablet Take 1 tablet by mouth every 6 hours as needed. Stop Taking at Discharge 02/25/2014 02/25/2014 documented as of this encounter Active and Recently Administered Medications Times are shown in EDT. Scheduled Medication Order 02/23/2014 02/24/2014 02/25/2014 atorvastatin (LIPITOR) tablet 10 mg (CANCELED) 10 mg, Oral, DAILY, First dose on Thu02/21/14 at 0900, Until Discontinued, Discharge/Readmit, Dx: 1. High cholesterol 0806 (Given - Provider: Kathleen Meek LPN) 0933 (Given - Provider: Kathy Leavitt RN) 0822 (Given - Provider: Kathleen Meek LPN) docusate sodium (COLACE) capsule 100 mg (CANCELED) 100 mg, Oral, 2 TIMES DAILY, First dose on Thu02/20/14 at 2100, Until Discontinued, Do not crush or chew., Discharge/Readmit, Dx: 1. At risk for constipation 0806 (Given - Provider: Kathleen Meek LPN)2100 (Given - Provider: Binta Schmitt LPN) 0933 (Given - Provider: Kathy Leavitt RN)2045 (Given - Provider: Faby Singh RN) 0822 (Given - Provider: Kathleen Meek LPN) enoxaparin (LOVENOX) injection 40 mg (CANCELED) 40 mg, Subcutaneous, DAILY, First dose on Thu02/21/14 at 0900, Until Discontinued, Discharge/Readmit, Dx: 1. Prevention of blood clots 805 (Given - Provider: Kathleen Meek LPN) 0933 (Given - Provider: Kathy Leavitt, UMA) 0821 (Given - Provider: Kathleen Meek LPN) potassium chloride (K-DUR) tablet 20 mEq (COMPLETED) 20 mEq, Oral, ONCE, 1 dose, On 02/25/14 at 0945, Dx: 1. Hypokalemia 951 (Given - Provider: Kathleen Meek LPN) senna (SENOKOT) tablet 2 tablet (CANCELED) 2 Tablet, Oral, NIGHTLY, First dose on Thu02/20/14 at 2100, Until Discontinued, Discharge/Readmit, Dx: 1. At risk for constipation 2100 (Given - Provider: Binta Schmitt LPN) 2045 (Given - Provider: Faby Singh RN) PRN Medication Order 02/23/2014 02/24/2014 02/25/2014 acetaminophen (TYLENOL) tablet 650 mg (CANCELED) 650 mg, Oral, EVERY 4 HOURS PRN, Starting on Thu02/20/14 at 1905, Until 02/25/14 at 1912, Pain, Fever, Maximum adult dose of acetaminophen is 4000 mg from all sources in 24 hours. , Discharge/Readmit 1417 (Given - Provider: Kathleen Meek LPN) oxyCODONE (ROXICODONE) immediate release tablet 5-15 mg (CANCELED) 5-15 mg, Oral, EVERY 3 HOURS PRN, Starting on Thu02/20/14 at 1905, Until 02/25/14 at 1912, Moderate Pain (Pain Score 4-7), Begin with lowest dose unless otherwise directed. Reassess pain in one hour. If pain unrelieved, remainder of dose may be given to patient. Use exclusively if receiving IV/oral acetaminophen (TYLENOL or OFIRMEV)., Discharge/Readmit 08 (Given - Provider: Kathleen Meek LPN)185 (Given - Provider: Kathleen Meek LPN) 0966 (Given - Provider: Kathy Leavitt RN)1936 (Given - Provider: Faby Singh RN) 0606 (Given - Provider: Kathleen Meek LPN) documented in this encounter Orders Medications Ordered That [place] ht Not Have Been Administered Count Last Ordered Date First Ordered Date ferrous gluconate (FERGON) tablet 324 mg 1 02/21/2014 acetaminophen (TYLENOL) tablet 650 mg 1 aluminum & magnesium hydroxi de-simethicone 200-200-20 mg/5 mL suspension 15 mL 1 02/20/2014 benzocaine-menthol 15-3.6 mg Lozg 1 lozenge 1 02/20/2014 bisacodyl (DULCOLAX) EC tablet 10 mg 1 02/08 bisacodyl (DULCOLAX) suppository 10 mg 1 CHECK PPD SITE 2 02/20/2014 ferrous sulfate tablet 325 mg 1 02/20/2014 loratadine-pseudoephedrine ( CLARITIN-D 24-hour) 10-240 mg per tablet 1 tablet 1 02/20/2014 magnesium hydroxide (MILK OF MAGNESIA) 400 mg/5 mL suspension 30 mL 1 02/20/2014 polyethylene glycol (GLYCOLA X, MIRALAX) packet 17 g 1 02/20/2014 Nursing Count Last Ordered Date First Orde red Date INCENTIVE SPIROMETRY - NURSING 1 02/20/2014 INTAKE AND OUTPUT 1 02/20/2014 NURSING COMMUNICATION 4 02/20/2014 STRAIGHT CATH 1 02/20/2014 TURN PATIENT 1 02/20/2014 VITAL SIGNS 1 02/20/2014 Consult Count Last Ordered Date First Orde red Date DME ORDERS 1 02/23/2014 HOME HEALTH ORDERS (FACE TO FACE ENCOUNTER) 1 02/23/2014 IP CONSULT TO NUTRITION 1 02/20/2014 IP CONSULT TO SOCIAL WORK 1 02/20/2014 OT Count Last Ordered Date First Orde red Date OT EVAL AND TREAT 1 02/20/2014 PT Count Last Ordered Date First Orde red Date IP CONSULT TO PHYSICAL THERAPY 1 02/20/2014 Discharge Count Last Ordered Date First Orde red Date DISCHARGE PATIENT 1 02/25/2014 documented in this encounter Care Teams Money Counter Relationship Specialty Start Date End Date Mann [place] [address] [place] [id number] PCP - General Internal Medicine 08/23/12 07/13/22 documented as of this encounter
--- OUTSIDE RECORDS SUMMARY | 2024-03-27 15:08 | XMS_ITS | Encounter Summary ---
Author Organization [place] [address] Care Team Providers Care Piano And Organ Refinisher Name Role Phone Mann Irene MD Primary Care Provider [phone] Reason for Visit * Reason Onset Date Comments Urinary Tract Infection 01/16/2014 Encounter Details Date Type Department Care Team (Late st Contact Info) Description 01/16/2014 Telephone [facility] [place] [address] [address] [place] [address] [place] [address] Urinary Tract Infection Social History Tobacco [...] on file documented as of this encounter Miscellaneous Notes * Telephone Encounter - Elida Valentino CCMA - 01/16/2014 2:32 PM EDT appt scheduled today @ 3pm * Telephone Encounter - Mann Irene MD - 01/16/2014 2:23 PM EDT Make appointment. Either today/tomorrow is fine. * Telephone Encounter - Julianna Franklin RMA - 01/16/2014 2:13 PM EDT Pt is having uti sx again and would like to be seen today or tomorrow. Please advise. Thank you! documented in this encounter Plan of Treatment Upcoming Encounters Date Type Department Care Team (Late st Contact Info) Description 05/16/2024 9:30 AM EST Office Visit [facility] [address] [place] [address] Gilda Francis PA [address] [place] [address] documented as of this encounter Visit Diagnoses Not on filedocumented in this encounter Care Teams Piano And Organ Refinisher Relationship Specialty Start Date End Date Mann [place] [address] [place] [address] PCP - General Internal Medicine 08/23/12 07/13/22 documented as of this encounter
--- OUTSIDE RECORDS SUMMARY | 2024-03-27 15:08 | XMS_ITS | Encounter Summary ---
Author Organization [facility] [place] [address] Care Team Providers Care Motor Driver Name Role Phone Mann Irene MD Primary Care Provider [phone] Reason for Visit * Reason Comments Urinary Tract Infection pain/pressur e Encounter Details Date Type Department Care Team (Late st Contact Info) Description 01/16/2014 3:00 PM EDT Office Visit [facility] [place] [facility] [place] [address] [place] [address] [place] [address] UTI (urinary tract infection) (Primary Dx); Dysuria [...] Sign Reading Time Taken Comments Blood Pressure 120/70 01/16/2014 3:01 PM EDT Pulse 74 01/16/2014 3:01 PM EDT Temperature 36.8 ??C (98.2 ??F) 01/16/2014 3:01 PM ED T Respiratory Rate 18 01/16/2014 3:01 PM EDT Oxygen Saturation 97% 01/16/2014 3:01 PM EDT Inhaled Oxygen Concentration - - Weight 82.1 kg (181 lb) 01/16/2014 3:01 PM EDT Height 160 cm (5' 3 ) 01/16/2014 3:01 PM EDT Body Mass Index 32.06 01/16/2014 3:01 PM EDT documented in this encounter Ordered Prescriptions Prescription Sig Dispense Quantity Refills Last Filled Start Date End Date ciprofloxacin (CIPRO) 500 mg Oral TabletIndications: UTI (urinary tract infection) Take 1 tablet by mouth 2 times daily for 7 days. 14 tablet 0 01/16/2014 01/23/2014 documented in this encounter Progress Notes * Mann Irene MD - 01/16/2014 3:04 PM EDT Stella Hylton is a 68 y.o. female Chief Complaint Patient presents with ??? Urinary Tract Infection pain/pressur e BP 120/70 Pulse 74 Temp(Src) 98.2 ??F (36.8 ??C) (Oral) Resp 18 Ht 5' 3 (1.6 m) Wt 181 lb (82.101 kg) BMI 32.07 kg/m2 SpO2 97% Health Maintenance Health Maintenance Topic Date Due ??? Colon Cancer Screening Colonoscopy 09/19/1997 ??? Influenza Vaccine 01/09/2014 ??? Colon Cancer Screening Occult Blood 03/18/2014 ??? Breast Cancer Screening 10/08/2015 ??? Pneumococcal Polysaccharide Vaccine Age 65 And Over Completed Problem List Patient Active Problem List Diagnosis ??? Hypercholesterolemia Medications Current Outpatient Prescriptions Medication Sig Dispense Refill ??? atorvastatin (LIPITOR) 10 mg tablet Take 1 tablet by mouth daily. 30 tablet 11 ??? diclofenac (VOLTAREN) 75 mg EC tablet TAKE 1 TABLET TWICE A DAY (WITH A MEAL) 60 Tab 2 ??? loratadine-pseudoephedrine (LORATADINE-PSEUDOEPHEDRINE) 10-240 mg Tb24 per tablet Take 1 Tab bymouth daily. 30 Tab 5 ??? ciprofloxacin (CIPRO) 500 mg Oral Tablet Take 1 tablet by mouth 2 times daily for 7 days. 14 tablet 0 No current facility-administered medications for this visit. Surgery History Past Surgical History Procedure Laterality Date ??? Hysterectomy ??? Hemorrhoid surgery ??? Lumbar disc surgery 11/03/2012 Surgeon: Elza Bautista MD; Location: [facility] OR; Service: Social history History Social History ??? Marital Status: Spouse Name: N/A Number of Children: N/A ??? Years of Education: N/A Social History Main Topics ??? Smoking status: Former Smoker -- 25 years Types: Cigarettes ??? Smokeless tobacco: Never Used Comment: quit 5 yrs ago ??? Alcohol Use: No ??? Drug Use: No ??? Sexual Activity: None Other Topics Concern ??? None Social History Narrative ??? None Immunizations Immunization History Administered Date(s) Administered ??? Pneumococcal Polysaccharide 23 Valent 10/13/2012 ROS: No TIA's or unusual headaches, no [...] lesions noted. Stella was seen today for urinary tract infection. Diagnoses and associated orders for this visit: UTI (urinary tract infection) - ciprofloxacin (CIPRO) 500 mg Oral Tablet; Take 1 tablet by mouth 2 times daily for 7 days. Dysuria - POCT UA - Urine Culture - Clinic Collect; Future Results for orders placed in visit on 01/16/14 POCT URINALYSIS DIPSTICK Result Value Range Color, UA yellow Clarity, UA Glucose, UA neg Bilirubin, UA neg Ketones, UA neg Spec Grav, UA 1.020 1.001 - 1.035 g/dl Blood, UA large pH, UA 5.0 5.0 - 8 Protein, UA neg Urobilinogen, UA 0.21 0.2 - 1.0 mg/dL Leukocytes, UA large Nitrite, UA neg UA Appear POC Lot Number Expiration Date SeriAl # Return urine for repeat check once antibiotics are completed. AVS given to patient and discussed. documented in this encounter Plan of Treatment Upcoming Encounters Date Type Department Care Team (Late st Contact Info) Description 05/16/2024 9:30 AM EST Office Visit [facility] [address] [place] [address] Gilda Francis PA [address] [place] [address] documented as of this encounter Procedures Procedure Name Priority Date/Time Associated Diagnosis Comments POCT URINALYSIS DIPSTICK Routine 01/16/2014 3:05 PM EDT Dysuria documented in this encounter Results * URINE CULTURE (01/16/2014 3:07 PM EDT) Final >100,000 cfu/ml Escherichia coli [facility] Organism Escherichia coli [facility] Urine specimen (specimen) URINE SPECIMEN COLLECTION, CLEAN CATCH / Unknown 01/16/2014 3:07 PM EDT 01/16/2014 10:06 PM EDT Narrative Organism Antibiotic Method Susceptibility Escherichia coli Amikacin MINIMUM INHIBIT ORY CONCENTRATION <=16: Susceptible Escherichia coli Ampicillin/Sulbactam MINIMUM IN HIBITORY CONCENTRATION 16/8: Intermediate Escherichia coli Ampicillin MINIMUM INHIBIT ORY CONCENTRATION >16: Resistant Escherichia coli Aztreonam MINIMUM INHIBIT ORY CONCENTRATION <=4: Susceptible Escherichia coli Cefazolin MINIMUM INHIBIT ORY CONCENTRATION <=8: Susceptible Escherichia coli Cefoxitin MINIMUM INHIBIT ORY CONCENTRATION <=8: Susceptible Escherichia coli Ciprofloxacin MINIMUM INHIBIT ORY CONCENTRATION <=1: Susceptible Escherichia coli Ertapenem MINIMUM INHIBIT ORY CONCENTRATION <=1: Susceptible Escherichia coli Gentamicin MINIMUM INHIBIT ORY CONCENTRATION <=4: Susceptible Escherichia coli Imipenem MINIMUM INHIBIT ORY CONCENTRATION <=1: Susceptible Escherichia coli Levofloxacin MINIMUM INHIBIT ORY CONCENTRATION <=2: Susceptible Escherichia coli Meropenem MINIMUM INHIBIT ORY CONCENTRATION <=1: Susceptible Escherichia coli Nitrofurantoin MINIMUM INHIBIT ORY CONCENTRATION <=32: Susceptible Escherichia coli Piperacillin/Tazobactam MINIMUM INHIBITORY CONCENTRATION <=16: Susceptible Escherichia coli Tobramycin MINIMUM INHIBIT ORY CONCENTRATION <=4: Susceptible Escherichia coli Trimethoprim/Sulfame thox azole MINIMUM INHIBITORY CONCENTRATION <=2/38: Susceptible Mann Irene MD MICROBIOLOGY - GENERAL ORDERAB LES Final Result Performing Organization Address [facility] Co de Phone Number [facility] [address] [place] [address] * POCT URINALYSIS DIPSTICK (01/16/2014 3:05 PM EDT) Color, UA yellow Clear, Yellow, Allen, Rust [facility] Clarity, UA Clear, Cloudy [facility] Glucose, UA neg g/dl% [facility] Bilirubin, UA neg Pos/Neg [facility] Ketones, UA neg Pos/Neg SEP sole leveler Grav, UA 1.020 1.001 - 1.035 g/dl [facility] Blood, UA large Pos/Neg [facility] pH, UA 5.0 5.0 - 8 [facility] Protein, UA neg Pos/Neg [facility] Urobilinogen, UA 0.21 0.2 - 1.0 mg/dL [facility] Leukocytes, UA large Pos/Neg [facility] Nitrite, UA neg Pos/Neg [facility] UA Appear POC [facility] Lot Number [facility] Expiration Date [facility] SeriAl # [facility] Urine specimen (specimen) 01/16/2014 3:05 PM EDT Mann Irene MD POINT OF CARE TEST ORDERABLES Final Result Performing Organization Address City/[facility] Co de Phone Number [facility] documented in this encounter Visit Diagnoses Diagnosis UTI (urinary tract infection)- Primary Urinary tract infection, site not specified Dysuria documented in this encounter Care Teams Motor Driver Relationship Specialty Start Date End Date Mann Irene MD [address] [place] [address] PCP - General Internal Medicine 08/23/12 07/13/22 documented as of this encounter
--- OUTSIDE RECORDS SUMMARY | 2024-03-27 15:08 | XMS_ITS | Encounter Summary ---
Author Organization [facility] [place] [place] [address] Care Team Providers Care Cone Cleaner Name Role Phone Mann Irene MD Primary Care Provider [phone] Sujatha Goldman RN Unavailable Unavai lable Reason for Visit * Reason Onset Date Comments Care Transition 03/28/2014 Follow up call Encounter Details Date Type Department Care Team (Late st Contact Info) Description 03/28/2014 Patient Outreach [facility] [address] [place] [address] Sujatha Goldman, business practices officer (Follow up call) Social History Tobacco Use [...] Telephone Encounter - Sujatha Goldman RN - 03/28/2014 4:24 PM EST Follow up call. Discharged 02/25/2014 Total Hip replacement No answer/unable to leave message with contact information r/t fax machine tone. documented in this encounter Plan of Treatment Upcoming Encounters Date Type Department Care Team (Late st Contact Info) Description 05/16/2024 9:30 AM EST Office Visit [facility] [address] [place] [id number] Gilda Francis PA [address] [place] [address] documented as of this encounter Visit Diagnoses Not on filedocumented in this encounter Care Teams Cone Cleaner Relationship Specialty Start Date End Date Mann [place] [address] [place] [id number] PCP - General Internal Medicine 08/23/12 07/13/22 Sujatha Goldman, [facility] Adv[facility] Registered Nurse 02/28/1406/28 documented as of this encounter
--- OUTSIDE RECORDS SUMMARY | 2024-03-27 15:08 | XMS_ITS | Encounter Summary ---
Author Organization [place] [address] Care Team Providers Care Web Marketing Assistant Name Role Phone Mann Irene MD Primary Care Provider [phone] Encounter Details Date Type Department Care Team (Latest Contact Info) Description 01/16/2014 8:54 PM EDT - 01/16/2014 11:59 PM EDT Hospital Encounter [facility] PROCESSING [facility] [place] [id number] Dysuria Discharge Disposition: Home or Self Care Social [...] on file documented as of this encounter Medications at Time of Discharge ciprofloxacin (CIPRO) 500 mg Oral TabletIndications :UTI (urinary tract infection) Take 1 tablet by mouth 2 times daily for 7 days. 14 tablet 0 01/16/2014 01/23/2014 documented as of this encounter Discharge Disposition Disposition Code Departure Means Destination Home or Self Care documented in this encounter Miscellaneous Notes * Miscellaneous - Unknown, Unknown - 01/16/2014 9:41 PM EDT documented in this encounter Plan of Treatment Upcoming Encounters Date Type Department Care Team (Late st Contact Info) Description 05/16/2024 9:30 AM EST Office Visit [facility] [address] [place] [address] Gilda Francis PA [address] [place] [address] documented as of this encounter Procedures Procedure Name Priority Date/Time Associated Diagnosis Comments URINE CULTURE (NO STAIN) Routine 01/16/2014 3:07 PM EDT Dysuria documented in this encounter Results * URINE CULTURE (01/16/2014 3:07 PM EDT) Final >100,000 cfu/ml Escherichia coli [facility] Organism Escherichia coli [facility] Urine specimen (specimen) URINE SPECIMEN COLLECTION, [...] thox azole MINIMUM INHIBITORY CONCENTRATION <=2/38: Susceptible us Mann Irene MD MICROBIOLOGY - GENERAL ORDERAB LES Final Result [facility] [address] [place] [address] documented in this encounter Visit Diagnoses Diagnosis Dysuria documented in this encounter Care Teams Web Marketing Assistant Relationship Specialty Start Date End Date Mann Irene MD [address] [place] [address] PCP - General Internal Medicine 08/23/12 07/13/22 documented as of this encounter
--- OUTSIDE RECORDS SUMMARY | 2024-03-27 15:08 | XMS_ITS | Encounter Summary ---
Author Organization [place] [address] Care Team Providers Care Dyer And Washer Name Role Phone Mann Irene MD Primary Care Provider [phone] Encounter Details Date Type Department Care Team (Latest Contact Info) Description 12/19/2013 7:09 PM EDT - 12/19/2013 11:59 PM EDT Hospital Encounter [facility] PROCESSING [facility] [place] [id number] Dysuria Discharge Disposition: Home or Self Care [...] this encounter Medications at Time of Discharge sulfamethoxazole- trimethoprim (SULFAMETHOXAZOLE -TRIMETHOPRIM) 800-160 mg per tabletIndications :UTI (lower urinary tract infection) Take 1 tablet by mouth 2 times daily for 7 days. 14 tablet 0 12/19/2013 12/26/2013 documented as of this encounter Discharge Disposition Disposition Code Departure Means Destination Home or Self Care documented in this encounter Miscellaneous Notes * Miscellaneous - Unknown, Unknown - 12/19/2013 7:09 PM EDT documented in this encounter Plan of Treatment Upcoming Encounters Date Type Department Care Team (Late st Contact Info) Description 05/16/2024 9:30 AM EST Office Visit [facility] [address] [place] [address] Gilda Francis PA [address] [place] [address] documented as of this encounter Procedures Procedure Name Priority Date/Time Associated Diagnosis Comments URINE CULTURE (NO STAIN) Routine 12/19/2013 1:07 PM EDT Dysuria documented in this encounter Results * URINE CULTURE (12/19/2013 1:07 PM EDT) Final >100,000 cfu/ml Escherichia coli [facility] Organism Escherichia coli [facility] Urine specimen (specimen) URINE SPECIMEN COLLECTION, CLEAN CATCH / Unknown 12/19/2013 1:07 PM EDT 12/19/2013 8:08 PM EDT Narrative Organism Antibiotic Method Susceptibility [...] ORDERAB LES Final Result Performing Organization Address City/State/[facility] Co de Phone Number [facility] [address] [place] [address] documented in this encounter Visit Diagnoses Diagnosis Dysuria documented in this encounter Care Teams Dyer And Washer Relationship Specialty Start Date End Date Mann Irene [place] [phone] PCP - General Internal Medicine 08/23/12 07/13/22 documented as of this encounter
--- OUTSIDE RECORDS SUMMARY | 2024-03-27 15:08 | XMS_ITS | Encounter Summary ---
Author Organization [place] [address] Care Team Providers Care Storage Battery Inspector Name Role Phone Mann Irene MD Primary Care Provider [phone] Sujatha Goldman RN Unavailable Unavacharlee dong Reason for Visit * Reason Comments Diarrhea since February, would like to discuss treatment Skin Condition bilateral hands and feet, dry, cracking Encounter Details Date Type Department Care Team (Late st Contact Info) Description 04/28/2014 10:40 AM EST Office Visit [facility] [place] [address] Mann Irene MD COUNTRY [facility] [place] [address] Hand dermatitis (Primary Dx); Diarrhea Social History Tobacco Use Types Packs/Day Years [...] Sign Reading Time Taken Comments Blood Pressure 128/70 04/28/2014 10:24 AM EST Pulse 82 04/28/2014 10:24 AM EST Temperature 36.8 ??C (98.2 ??F) 04/28/2014 10:[address] Respiratory Rate - - Oxygen Saturation 98% 04/28/2014 10:24 AM EST Inhaled Oxygen Concentration - - Weight 84 kg (185 lb 3.2 oz) 04/28/2014 10:24 AM EST Height 160 cm (5' 3 ) 04/28/2014 10:24 AM EST Body Mass Index 32.81 04/28/2014 10:24 AM EST documented in this encounter Functional Status * Is the person deaf or does he/she have serious difficulty hearing? Answer Date of Assessment Author No 02/20/2014 3:41 PM Rhea Sainz RN * Is the person blind or [...] Refills Last Filled Start Date End Date metroNIDAZOLE (FLAGYL) 500 mg Oral TabletIndications: Diarrhea Take 1 Tab by mouth 3 times daily for 10 days. 30 Tab 0 04/28/2014 4 triamcinolone (KENALOG) 0.1 % Top CreamIndications:H and dermatitis Apply topically daily. 80 g 0 04/28/2014 5 documented in this encounter Progress Notes * Mann Irene MD - 04/28/2014 10:32 AM EST Stella Hylton is a 68 y.o. female Chief Complaint Patient presents with ??? Diarrhea since February, would like to discuss treatment ??? Skin Condition bilateral hands and feet, dry, cracking HPI: Patient is seen today for 2 complaints. #1 she has had dry skin on both hands. Both hands are very dry and cracked. She's had no bleeding associated with this. Thickening she's had diarrhea since her hospitalization for her hip replacement surgery. She reports that she thought this was improving but it has returned. She has between 7 and 10 stools per day. She has extreme crampiness and urgency to use the bathroom. She does report that this has awoken herat night at times to use the bathroom. She did feel like her stools were black last week but they are normal color this week. She's had no dizziness or lightheadedness with this. BP 128/70 Pulse 82 Temp(Src) 98.2 ??F (36.8 ??C) (Oral) Ht 5' 3 (1.6 m) Wt 185 lb 3.2 oz (84.006 kg) BMI 32.81 kg/m2 SpO2 98% Health Maintenance Health Maintenance Topic Date Due ??? COLON CANCER SCREENING COLONOSCOPY 09/19/1997 ??? COLON CANCER SCREENING OCCULT BLOOD 03/18/2014 ??? ANNUAL WELLNESS EXAM 09/26/2014 ??? BREAST CANCER SCREENING 10/08/2015 ??? Influenza Vaccine Completed ??? Pneumococcal Polysaccharide Vaccine Age 65 and Older Completed Problem List Patient Active Problem List [...] by mouth daily. 90 tablet 1 ??? loratadine-pseudoephedrine (LORATADINE-PSEUDOEPHEDRINE) 10-240 mg Tb24 per tablet Take 1 Tab bymouth daily. 30 Tab 5 ??? triamcinolone (KENALOG) 0.1 % Top Cream Apply topically daily. 80 g 0 ??? metroNIDAZOLE (FLAGYL) 500 mg Oral Tablet Take 1 Tab by mouth 3 times daily for 10 days. 30 Tab0 No current facility-administered medications for this visit. Surgery History Past Surgical History Procedure Laterality Date ??? Hysterectomy ??? Hemorrhoid surgery ??? Lumbar disc surgery 11/03/2012 Surgeon: Elza Bautista MD; Location[facility]; Service: ??? Hip arthroplasty Right 02/16/2014 RIGHT TOTAL HIP REPLACEMENT; Surgeon: Bruce Oh MD; Location: [facility]; Service: Orthopedics Social history History Social History ??? Marital Status: Spouse Name: N/A Number of Children: N/A ??? Years of Education: N/A Social History Main Topics ??? Smoking status: Former Smoker -- 0.50 packs/day for 25 years Types: Cigarettes ??? Smokeless tobacco: Never Used Comment: quit ~' ??? Alcohol Use: No ??? Drug Use: No ??? Sexual Activity: None Other Topics Concern ??? None Social History Narrative Immunizations Immunization History Administered Date(s) Administered ??? Influenza Vaccine, Unspecified Formulation 02/04/2014 ??? PPD Test 02/20/2014 ??? Pneumococcal Polysaccharide 23 Valent 10/13/2012 ROS: [...] Skin is normal without suspicious lesions noted. Bilateral dry skin on both hands. Stella was seen today for diarrhea and skin condition. Diagnoses and associated orders for this visit: Hand dermatitis - triamcinolone (KENALOG) 0.1 % Top Cream; Apply topically daily. Diarrhea - metroNIDAZOLE (FLAGYL) 500 mg Oral Tablet; Take 1 Tab by mouth 3 times daily for 10 days. Patient was instructed in the treatment of hand dermatitis. She is to soak her hands for 10 or 15 minutes apply the triamcinolone cream as a moisturizer cream over top of that. She has diarrhea which may be C. difficile in nature. She was on antibiotics while in the hospital for hip replacement. She's given a course of Flagyl empirically for treatment at this time. If she does not improve we will need to get a stool culture and further evaluation. She had no obvious bloodin her stool. Educated patient regarding the care plan and instructions listed on the After Visit Summary [AVS] for today's visit. The patient verbalized full understanding of the care plan and instructions given on the AVS for today's visit. documented in this encounter Miscellaneous Notes * Patient Instructions - Mann Irene MD - 04/28/2014 1:05 PM EST You may be contacted by [...] EST Office Visit [facility] [address] [place] [address] Gilda Francis PA [address] [place], [place] [id number] documented as of this encounter Visit Diagnoses Diagnosis Hand dermatitis- Primary Contact dermatitis and other eczema, due to unspecified cause Diarrhea documented in this encounter Discontinued Medications Medication Sig Discontinue Reason Start Date End Da te atorvastatin (LIPITOR) 10 mg tablet Take 1 tablet by mouth daily. DELETE-Therapy completed 12/19/2013 04/28/2014 enoxaparin (LOVENOX) 40 mg/0.4 mL SubQ Syringe Subcutaneous (Inject under the skin) 0.4 mL daily. DELETE-Therapy completed 02/25/2014 04/28/2014 documented as of this encounter Historical Medications * This list may reflect changes made after this encounter. aspirin 81 mg Oral Tablet, Delayed Release (E.C.) Take 81 mg by mouth daily. 12/31/2018 added in this encounter Care Teams Storage Battery Inspector Relationship Specialty Start Date End Date Mann Irene MD [address] [place] [phone] PCP - General Internal Medicine 08/23/12 07/13/22 Sujatha Goldman, RN Health Advocate Registered Nurse 02/28/1406/28 documented as of this encounter
--- OUTSIDE RECORDS SUMMARY | 2024-03-27 15:08 | XMS_ITS | Encounter Summary ---
Author Organization [place] [address] Care Team Providers Care Stretcher Operator Name Role Phone Mann Irene MD Primary Care Provider [phone] Reason for Visit * Reason Onset Date Comments Paperwork/forms 01/13/2014 Encounter Details Date Type Department Care Team (Late st Contact Info) Description 01/13/2014 Telephone [facility] [place] [facility] [place] [address] [place] [address] Mann Irene MD [place] [facility] [place] [address] Paperwork/forms Social History Tobacco Use Types Packs/Day Years [...] Miscellaneous Notes * Telephone Encounter - Julianna Franklin RMA - 01/13/2014 2:06 PM EDT Thank you! * Telephone Encounter - Brittany Slaughter CCMA - 01/13/2014 1:59 PM EDT Sorry not completed yet will call as soon as he completes it, thank you * Telephone Encounter - Julianna Franklin RMA - 01/13/2014 1:57 PM EDT Pt calling to check on the status of the paperwork that was dropped off on Thursday for [employer]. Please advise. Thank you! documented in this encounter Plan of Treatment Upcoming Encounters Date Type Department Care Team (Late st Contact Info) Description 05/16/2024 9:30 AM EST Office Visit [facility] [address] [place] [address] Gilda Francis PA [address] [place] [address] documented as of this encounter Visit Diagnoses Not on filedocumented in this encounter Care Teams Stretcher Operator Relationship Specialty Start Date End Date Mann Irene MD [address] [place] [phone] PCP - General Internal Medicine 08/23/12 07/13/22 documented as of this encounter
--- OUTSIDE RECORDS SUMMARY | 2024-03-27 15:08 | XMS_ITS | Encounter Summary ---
Author Organization [place] [address] Care Team Providers Care Vocational Examiner Name Role Phone Mann Irene MD Primary Care Provider [phone] Sujatha Goldman RN Unavailable Unavacharlee dong Reason for Visit * Reason Onset Date Comments Other 02/24/2014 Encounter Details Date Type Department Care Team (Late st Contact Info) Description 02/24/2014 Telephone [facility] [place] [address] [address] Mann Irene MD COUNTRY [facility] [place] [address] Other Social History Tobacco Use Types [...] Telephone Encounter - Jo Saucedo RMA - 02/28/2014 1:52 PM EDT Rewritten Rx faxed to Patient Aides * Telephone Encounter - Jailyn Saldivar - 02/28/2014 11:51 AM EDT Roselyn from [address] [place] [address] is calling, [facility] in [place] did not receive the order for the rolling walker, requesting this be re-faxed. Roselyn can be reached at [phone] for questions. * Telephone Encounter - Brittany Slaughter CCMA - 02/24/2014 3:14 PM EDT Walker order faxed to patient aides * Telephone Encounter - Elida Valentino CCMA - 02/24/2014 3:11 PM EDT Pts states she is being released from hospital tomorrow, she does want this. States it is an order for a walker. * Telephone Encounter - Brittany Slaughter CCMA - 02/24/2014 2:33 PM EDT Left message for pt to see if she wants this or just company ordering * Telephone Encounter - Bryanna Lyon - 02/24/2014 2:12 PM EDT Tracy Bond is requesting a referral sent to [employer], for her back support at or you fax to Tracy Bond at [phone] documented in this encounter Plan of Treatment Upcoming Encounters Date Type Department Care Team (Late st Contact Info) Description 05/16/2024 9:30 AM EST Office Visit [facility] [address] [place] [address] Gilda Francis PA [address] [place] [address] documented as of this encounter Visit Diagnoses Not on filedocumented in this encounter Care Teams Vocational Examiner Relationship Specialty Start Date End Date Mann Irene MD [address] [place] [address] PCP - General Internal Medicine 08/23/12 07/13/22 Sujatha Goldman, RN Health Advocate Registered Nurse 02/28/1406/28 documented as of this encounter
--- OUTSIDE RECORDS SUMMARY | 2024-03-27 15:08 | XMS_ITS | Encounter Summary ---
Author Organization [place] [address] Care Team Providers Care Mother Repairer Name Role Phone Mann Irene MD Primary Care Provider [phone] Encounter Details Date Type Department Care Team (Latest Contact Info) Description 02/09/2014 9:00 AM EDT - 02/09/2014 11:59 PM EDT Hospital Encounter [facility] [place] [id number] Provider, Edg Total Joint Class Discharge Disposition: Home or Self Care Social [...] needed. 60 tablet 0 02/18/2014 4 documented as of this encounter Discharge Disposition Disposition Code Departure Means Destination Home or Self Care documented in this encounter Progress Notes * Bette Conley RN - 02/09/2014 11:05 AM EDT TOTAL JOINT EDUCATION CLASS NOTE Stella Hylton, 68 y.o. [id number] No admitting provider for patient encounter. Patient has attended pre-operative education class. Family member(s)/friend(s) were not present at class. Barriers to learning None identified Booklet Provided yes Audiovisual Presentaion was completed, information included: Pre-op Information Day of Surgery Orthopaedic Equipment Pain Control/Medications Safety Measures: Bed alarms, Assistance when up Avoiding Complications Post-op daily schedule Discharge Options Home Safety Future Prophylactic Antibiotics PT instructions Care Coordination packet documented in this encounter Plan of Treatment Upcoming Encounters Date Type Department Care Team (Late st Contact Info) Description 05/16/2024 9:30 AM EST Office Visit [facility] [address] [place] [phone] Gilda Francis PA [address] [place] [address] documented as of this encounter Visit Diagnoses Not on filedocumented in this encounter Care Teams Mother Repairer Relationship Specialty Start Date End Date Mann Irene MD [address] [place] [id number] PCP - General Internal Medicine 08/23/12 07/13/22 documented as of this encounter
--- OUTSIDE RECORDS SUMMARY | 2024-03-27 15:08 | XMS_ITS | Encounter Summary ---
Author Organization [place] [address] Care Team Providers Care Suction Roller Name Role Phone Mann Irene MD Primary Care Provider [phone] Encounter Details Date Type Department Care Team (Latest Contact Info) Description 02/09/2014 7:30 AM EDT - 02/09/2014 8:59 AM EDT Hospital Encounter EDG PRE-ADMIT TESTING [facility] [address] [place] [id number] 2, Edg Pat Nurse OA (osteoarthritis) (Primary [...] Sign Reading Time Taken Comments Blood Pressure 129/68 02/09/2014 7:47 AM EDT Pulse 90 02/09/2014 7:47 AM EDT Temperature 36.6 ??C (97.9 ??F) 02/09/2014 7:47 AM ED T Respiratory Rate 16 02/09/2014 7:47 AM EDT Oxygen Saturation 94% 02/09/2014 7:47 AM EDT Inhaled Oxygen Concentration - - Weight 85.3 kg (188 lb) 02/09/2014 7:47 AM EDT Height 161.3 cm (5' 3.5 ) 02/09/2014 7:47 AM EDT Body Mass Index 32.78 02/09/2014 7:47 AM EDT documented in this encounter Medications at Time [...] or Self Care documented in this encounter Nursing Notes * Keisha Henriquez - 02/09/2014 8:43 AM EDT Clearance in epic 01/17/14 media. documented in this encounter Plan of Treatment Upcoming Encounters Date Type Department Care Team (Late st Contact Info) Description 05/16/2024 9:30 AM EST Office Visit [facility] [address] [place] [phone] Gilda Francis PA [address] [place] [address] Pending Results Name Type Priority Associated Diagnoses Date /Time PREADMISSION TYPE AND SCREEN Blood Bank Pre-Op OA (osteoarthritis) Pre-op testing 02/09/2014 10:23 AM EDT documented as of this encounter Procedures Procedure Name Priority Date/Time Associated Diagnosis Comments PREADMISSION TYPE AND SCREEN Pre-Op 02/09/2014 10:23 AM EDT OA (osteoarthritis) Pre-op testing STAPHYLOCOCCUS AUREUS SCREEN Pre-Op 02/09/2014 8:40 AM EDT DIFFERENTIAL Pre-Op 02/09/2014 8:40 AM EDT PARTIAL THROMBOPLASTIN TIME Pre-Op 02/09/2014 8:40 AM EDT OA (osteoarthritis) Pre-op testing Anticoagulant disorder (HCC) PT / INR Pre-Op 02/09/2014 8:40 AM EDT OA (osteoarthritis) Pre-op testing Anticoagulant disorder (HCC) CBC WITH DIFF Pre-Op 02/09/2014 8:40 AM EDT OA (osteoarthritis) Pre-op testing BASIC METABOLIC PANEL Routine 02/09/2014 8:40 AM EDT OA (osteoarthritis) Pre-op testing URINALYSIS Pre-Op 02/09/2014 8:13 AM EDT OA (osteoarthritis) Pre-op testing ABORH Pre-Op 02/09/2014 8:10 AM EDT ANTIBODY SCREEN IGG Pre-Op 02/09/2014 8 :10 AM EDT documented in this encounter Results * DIFFERENTIAL (02/09/2014 8:40 AM EDT) Neut Percent 56.5 % [facility] Lymph Percent 32.0 % [facility] [place] Percent 7.2 % [facility] Eos Percent 3.5 % [facility] Baso Percent 0.8 % [facility] Neut# 4.4 1.8 - 7.7 x10(3)/mcL [facility] Lymph# 2.5 0.6 - 4.8 x10(3)/mcL [facility] [place]# 0.6 0.0 - 1.3 x10(3)/mcL [facility] Eos# 0.3 0.0 - 0.5 x10(3)/mcL [facility] Baso# 0.1 0.0 - 0.2 x10(3)/mcL [facility] Blood specimen (specimen) 02/09/2014 8:40 AM EDT 02/09/2014 8:44 AM EDT us Bruce Oh MD HEMATOLOGY ORDERABLES Final Result Performing Organization Address [facility]/ZIP Co de Phone Number [facility] [address] [place] [address] * (ABNORMAL) BASIC METABOLIC PANEL (02/09/2014 8:40 AM EDT) Sodium 146(H) 136 - 145 mmol/L [facility] Potassium 4.5 3.5 - 5.0 mmol/L [facility] Chloride 107 98 - 107 mmol/L [facility] Total CO2 28 22 - 29 mmol/L [facility] Anion Gap 11 7 - 16 mmol/L [facility] Calcium 9.4 8.8 - 10.2 mg/dL [facility] Glucose Lvl 122(H) 82 - 100 mg/dL [facility] BUN 12 8 - 23 mg/dL [facility] Creatinine 0.60 0.51 - 1.00 mg/dL [facility] GFR Afr Am >60 [facility] Comment: GFR is estimated using creatinine, age, gender, and race. ??GFR has been validated for patients between 18 and 70 years of age. GFR has not been validated for women, patients with serious comorbid conditions, or persons with extremes of body size, muscle mass, or nutritional status. ??For additional information: ??www.kidney.org. GFR Non Afr Am >60 [facility] Blood specimen (specimen) UPPER LIMB STRUCTURE / Unknown 02/09/2014 8:40 AM EDT 02/09/2014 8:44 AM EDT Erma Ching NP CHEMISTRY ORDERABLES Edited Result - Final [facility] [address] [place] [address] * CBC WITH AUTO DIFF (02/09/2014 8:40 AM EDT) WBC 7.7 4.0 - 11.0 x10(3)/mcL [facility] RBC 4.49 3.80 - 5.10 x10(6)/mcL [facility] Hgb 13.1 12.0 - 15.6 gm/dL [facility] Hct 40.0 35.7 - 45.9 % [facility] MCV 89.2 82.5 - 99.8 fL [facility] MCH 29.3 27.0 - 34.3 pg [facility] MCHC 32.8 32.1 - 35.3 gm/dL [facility] RDW 13.9 11.5 - 15.0 % [facility] Platelet 296 144 - 423 x10(3)/mcL [facility] MPV 7.6 6.8 - 10.8 fL [facility] Blood specimen (specimen) 02/09/2014 8:40 AM EDT 02/09/2014 8:44 AM EDT Bruce Oh MD HEMATOLOGY ORDERABLES Final Result Performing Organization Address [facility] de Phone Number [facility] [address] [place] [address] * PARTIAL THROMBOPLASTIN TIME (02/09/2014 8:40 AM EDT) PTT 30.8 25.6 - 35.5 second(s) [facility] Comment: Therapeutic range for direct thrombin [...] 8:40 AM EDT 02/09/2014 8:44 AM EDT Bruce Oh MD HEMATOLOGY ORDERABLES Final Result Performing Organization Address [facility] Co de Phone Number [facility] [address] [place] [address] * PT / INR (02/09/2014 8:40 AM EDT) PT 11.2 9.6 - 12.6 second(s) [facility] INR 1.01 0.87 - 1.13 [facility] Comment: Level of Therapy ??Indications ??Target INR Range Standard Dose Treatment and prophylaxis of venous 2.0 - 3.0 ??thrombosis, pulmonary embolism ?High Dose High risk patients with mechanical ?2.5 - 3.5 ??heart valves Blood specimen (specimen) 02/09/2014 8:40 AM EDT 02/09/2014 8:44 AM EDT Bruce Oh MD HEMATOLOGY ORDERABLES Final Result Performing Organization Address [facility] de Phone Number [facility] [address] [place] [address] * STAPHYLOCOCCUS AUREUS SCREEN (02/09/2014 8:40 AM EDT) Final No growth of Staphylococcus aureus [facility] 02/09/2014 8:40 AM EDT 02/09/2014 9:54 AM EDT Bruce Oh MD MICROBIOLOGY - GENERAL ORDER LILLIAN Final Result Performing Organization Address [facility] de Phone Number [facility] [address] [place] [address] * URINALYSIS (02/09/2014 8:13 AM EDT) UA Color Yellow [facility] UA Appear Clear Clear [facility] UA Glucose Negative Negative [facility] UA Ketones Negative Negative [facility] UA Blood Negative Negative [facility] UA pH 6.0 4.8 - 8.0 [facility] UA Protein Negative Negative [facility] UA Urobilinogen Normal <=1 mg/dl [facility] UA Nitrite Negative Negative [facility] UA Leuk Est Negative Negative [facility] UA Spec Grav 1.014 1.001 - 1.035 [facility] Urine specimen (specimen) 02/09/2014 8:13 AM EDT 02/09/2014 8:35 AM EDT Bruce Oh MD URINE ORDERABLES Final Resul t Performing Organization Address [facility] de Phone Number [facility] [address] [place] [address] * ANTIBODY SCREEN IGG (02/09/2014 8:10 AM EDT) ABSC IgG Int Negative [facility] Blood specimen (specimen) 02/09/2014 8:10 AM EDT 02/09/2014 8:47 AM EDT us Bruce Oh MD BLOOD BANK ORDERABLES Final Result Performing Organization Address City/[facility]/ZIP Co de Phone Number [facility] [address] [place] [address] * ABORH (02/09/2014 8:10 AM EDT) ABORh Int O POS [facility] Blood specimen (specimen) 02/09/2014 8:10 AM EDT 02/09/2014 8:47 AM EDT us Bruce Oh MD BLOOD BANK ORDERABLES Final Result Performing Organization Address [facility] Co de Phone Number [facility] [address] [place] [address] documented in this encounter Visit Diagnoses Diagnosis OA (osteoarthritis)- Primary Osteoarthrosis, unspecified whether generalized or localized, unspecified site Pre-op testing Preoperative examination, unspecified Anticoagulant disorder (HCC) Other and unspecified coagulation defects documented in this encounter Care Teams Suction Roller Relationship Specialty Start Date End Date Mann Irene MD [address] [place] [id number] PCP - General Internal Medicine 08/23/12 07/13/22 documented as of this encounter
--- OUTSIDE RECORDS SUMMARY | 2024-03-27 15:08 | XMS_ITS | Encounter Summary ---
Author Organization [place] [address] Care Team Providers Care Glass Edger Name Role Phone Mann Irene MD Primary Care Provider [phone] Reason for Visit * Reason Comments Other URINE DROP OFF Encounter Details Date Type Department Care Team (Late st Contact Info) Description 01/19/2014 9:40 AM EDT Office Visit [facility] [place] [facility] [place] [address] [place] [address] [place] [address] Dysuria (Primary Dx) Social History Tobacco Use Types [...] on file documented as of this encounter Progress Notes * Unknown, Unknown - 02/28/2014 12:00 AM EDT * Unknown, Unknown - 02/16/2014 12:00 AM EDT * Unknown, Unknown - 02/16/2014 12:00 AM EDT * Mann Irene MD - 01/19/2014 4:40 PM EDT Patient dropped off urine sample given to FOA has not finished all antibiotics so dip is non void and was clear due to still being on medications, tried to call patient to let her know that she will need to finish all medication and recheck 3 days after medication is complete Note per nursing. documented in this encounter Plan of Treatment Upcoming Encounters Date Type Department Care Team (Late st Contact Info) Description 05/16/2024 9:30 AM EST Office Visit [facility] [address] [place] [phone] Gilda Francis PA [address] [place] [address] documented as of this encounter Procedures Procedure Name Priority Date/Time Associated Diagnosis Comments POCT URINALYSIS DIPSTICK Routine 01/19/2014 4:43 PM EDT Dysuria documented in this encounter Results * POCT URINALYSIS DIPSTICK (01/19/2014 4:43 PM EDT) Color, UA yellow Clear, Yellow, Preble, Rust [facility] Clarity, UA Clear, Cloudy [facility] Glucose, UA neg g/dl% [facility] Bilirubin, UA neg Pos/Neg [facility] Ketones, UA neg Pos/Neg SEP riveter hand Grav, UA 1.020 1.001 - 1.035 g/dl [facility] Blood, UA neg Pos/Neg [facility] pH, UA 5.0 5.0 - 8 [facility] Protein, UA neg Pos/Neg [facility] Urobilinogen, UA 0.2 0.2 - 1.0 mg/dL [facility] Leukocytes, UA neg Pos/Neg [facility] Nitrite, UA neg Pos/Neg [facility] UA Appear POC [facility] Lot Number [facility] Expiration Date [facility] SeriAl # [facility] Urine specimen (specimen) 01/19/2014 4:43 PM EDT Mann Irene MD POINT OF CARE TEST ORDERABLES Final Result [facility] documented in this encounter Visit Diagnoses Diagnosis Dysuria- Primary documented in this encounter Care Teams Glass Edger Relationship Specialty Start Date End Date Mann Irene MD [address] [place] [address] PCP - General Internal Medicine 08/23/12 07/13/22 documented as of this encounter
--- OUTSIDE RECORDS SUMMARY | 2024-03-27 15:08 | XMS_ITS | Encounter Summary ---
Author Organization [place] [address] Care Team Providers Care Oracle Distribution Consultant Name Role Phone Mann Irene MD Primary Care Provider [phone] Sujatha Goldman RN Unavailable Unavacharlee dong Reason for Visit * Reason Onset Date Comments Other 02/14/2014 Encounter Details Date Type Department Care Team (Late st Contact Info) Description 02/14/2014 Telephone [facility] [address] Mann Irene MD COUNTRY [facility] [place] [address] Other Social History Tobacco Use Types [...] Telephone Encounter - Brittany Slaughter CCMA - 02/14/2014 2:15 PM EDT Order faxed * Telephone Encounter - Bryanna Lyon - 02/14/2014 2:09 PM EDT Needs a referral for a lower back support, her insurance needs a referral from the doctor. Can be faxed to [phone] documented in this encounter Plan of Treatment Upcoming Encounters Date Type Department Care Team (Late st Contact Info) Description 05/16/2024 9:30 AM EST Office Visit [facility] [address] [place] [address] Gilda Francis PA [address] [place] [address] documented as of this encounter Visit Diagnoses Not on filedocumented in this encounter Care Teams Oracle Distribution Consultant Relationship Specialty Start Date End Date Mann rIene MD [place] [facility] [place] [phone] PCP - General Internal Medicine 08/23/12 07/13/22 Sujatha Goldman, RN Health Advocate Registered Nurse 02/28/1406/28 documented as of this encounter
--- OUTSIDE RECORDS SUMMARY | 2024-03-27 15:08 | XMS_ITS | Encounter Summary ---
Author Organization [place] [address] Care Team Providers Care Oncology Admin Name Role Phone Mann Irene MD Primary Care Provider [phone] Reason for Visit * MRI/CAT Scan (Routine) - Closed Specialty Diagnoses / Procedures Referred By Ramona mcdaniel Referred To Contact Radiology Diagnoses Leg pain Procedures MRI FEMUR RIGHT WO CONTRAST [place] [address] Phone: tel: fax: [facility] [address] [place] [address] Phone: tel: Referral ID Status Reason Start Date Expiration Date Visits Re quested Visits Authorized [id number] Closed 12/19/2013 06/17/2014 1 1 Encounter Details Date Type Department Care Team (Latest Contact Info) Description 12/21/2013 4:35 PM EDT - 12/21/2013 11:59 PM EDT Hospital Encounter [facility] [address] [place] [address] Mann [place] [address] Leg pain Discharge Disposition: Home or Self Care Social [...] Notes * Miscellaneous - Unknown, Unknown - 12/21/2013 4:39 PM EDT documented in this encounter Plan of Treatment Upcoming Encounters Date Type Department Care Team (Late st Contact Info) Description 05/16/2024 9:30 AM EST Office Visit [facility] [address] [place] [phone] Gilda Francis PA [address] [place] [address] documented as of this encounter Procedures Procedure Name Priority Date/Time Associated Diagnosis Comments MRI FEMUR RIGHT WO CONTRAST Routine 12/21/2013 6:04 PM EDT Leg pain documented in this encounter Results * MRI FEMUR RIGHT WO CONTRAST (12/21/2013 [...] Code jot stat us Mann Irene MD IMG MRI ORDERABLES Final Resul t documented in this encounter Visit Diagnoses Diagnosis Leg pain Pain in limb documented in this encounter Care Teams Oncology Admin Relationship Specialty Start Date End Date Mann Irene MD [address] [place] [address] PCP - General Internal Medicine 08/23/12 07/13/22 documented as of this encounter
--- OUTSIDE RECORDS SUMMARY | 2024-03-27 15:08 | XMS_ITS | Encounter Summary ---
Author Organization [place] [address] Care Team Providers Care Crystal Flat Grinder Name Role Phone Mann Irene MD Primary Care Provider [phone] Sujatha Goldman RN Unavailable Unavai labadeline Reason for Visit * Reason Onset Date Comments Medication Refill 03/14/2014 Encounter Details Date Type Department Care Team (Late st Contact Info) Description 03/14/2014 Telephone [facility] [place] [address] [address] Mann Irene MD [place] [facility] [place] [address] Medication Refill Social History Tobacco Use [...] tablet by mouth daily. 90 tablet 1 03/14/2014 12/22/2014 documented in this encounter Miscellaneous Notes * Telephone Encounter - Brittany Slaughter CCMA - 03/14/2014 5:08 PM EST done * Telephone Encounter - Sumi Arana - 03/14/2014 5:04 PM EST Needs RF on Lipitor and arthritis medicine to [facility] instead of [facility] from now on Phone # Fax # documented in this encounter Plan of Treatment Upcoming Encounters Date Type Department Care Team (Late st Contact Info) Description 05/16/2024 9:30 AM EST Office Visit [facility] [address] [place] [address] Gilda Francis PA [address] [place] [address] documented as of this encounter Visit Diagnoses Not on filedocumented in this encounter Discontinued Medications Medication Sig Discontinue Reason Start Date End Da te atorvastatin (LIPITOR) 10 mg Oral Tablet TAKE 1 TABLET BY MOUTH ONCE DAILY Reorder 03/07/2014 03/14/2014 documented as of this encounter Care Teams Crystal Flat Grinder Relationship Specialty Start Date End Date Mann Irene MD [place] [facility] [place] [address] PCP - General Internal Medicine 08/23/12 07/13/22 Sujatha Goldman, RN Health Advocate Registered Nurse 02/28/1406/28 documented as of this encounter
--- OUTSIDE RECORDS SUMMARY | 2024-03-27 15:08 | XMS_ITS | Encounter Summary ---
Author [place] [address] Care Team Providers Care Revenue Integrity Analyst Name Role Phone Mann Irene MD Primary Care Provider Sujatha Goldman RN Unavailable Unavai lable Reason for Visit * Reason Onset Date Comments Care Transition 02/28/2014 Hospital follow up call Encounter Details Date Type Department Care Team (Late st Contact Info) Description 02/28/2014 Patient Outreach [facility] [address] [place] [address] Sujatha Goldman, supervisor engine assembly (Hospital follow up call) Social History Tobacco Use Types [...] Telephone Encounter - Sujatha Goldman RN - 02/28/2014 1:52 PM EDT Hospital follow up call. Discharged 02/25/2014 Total Hip replacement Spoke with patient, stated shewas doing alright . Patient stated incision line is without drainage, warmth, and redness, staplesintact. Patient denies fever and pain tolerable with percocet. Patient stated she's getting OT/PT through [facility], patient stated OT coming to assess her house today to determine any device needs. Patient stated she knows she needs a shower chair and handrail for bathtub. Patient stated she's still waiting for rolling walker to be delivered by [facility], patient ambulating with cane at this time. Call placed to [facility] [employer], stated they were still waiting for referral fax from PCP. Re- faxed referral to number provided [phone]. Patient stated she has short term disability papersthat need to be filled out, patient to bring papers to scheduled follow up. Patient stated she's eating and drinking ok , no issues with urinating or bowel movements. Patient stated she had trouble getting Lovenox filled, stated it was going to cost her $1400.00 for prescription, stated she lookedon-line an found a coupon, was able to get prescription filled on 02/2014 for $100. Patient stated she doesn't like giving herself the injections, so her neighbor has been giving them to her. Medications reviewed. Patient stated she's got a follow up with orthopedics on 03/03/2014, amadeo to be removed then. Follow up with PCP scheduled 03/06/2014. Contact information given for questions and concerns. Patient would benefit from monthly calls. level 2. documented in this encounter Plan of Treatment Upcoming Encounters Date Type Department Care Team (Late st Contact Info) Description 05/16/2024 9:30 AM EST Office Visit [facility] [address] [place] [address] Gilda Francis PA [address] [place] [address] documented as of this encounter Visit Diagnoses Not on filedocumented in this encounter Care Teams Revenue Integrity Analyst Relationship Specialty Start Date End Date Mann Irene MD [address] [place] [address] PCP - General Internal Medicine 08/23/12 07/13/22 Sujatha Goldman, RN Health Advocate Registered Nurse 02/28/1406/28 documented as of this encounter
--- OUTSIDE RECORDS SUMMARY | 2024-03-27 15:08 | XMS_ITS | Encounter Summary ---
Author Organization [place] [address] Care Team Providers Care Electrical Design Technologist Name Role Phone Mann Irene MD Primary Care Provider [phone] Sujatha Goldman RN Unavailable Unavai labadeline Reason for Visit * Reason Onset Date Comments Hypertension 05/10/2014 Encounter Details Date Type Department Care Team (Late st Contact Info) Description 05/10/2014 Telephone [facility] [place] [address] [address] Mann Irene MD [place] [facility] [address] Hypertension Social History Tobacco Use Types Packs/Day Years [...] Telephone Encounter - Julianna [place] RMA - 05/10/2014 12:03 PM EST Pt took her BP this morning after feeling lightheaded and nauseated and her bp was 183/96. Pt calling to see what she should do. Pt advised to come to the office for BP check per Alethea. documented in this encounter Plan of Treatment Upcoming Encounters Date Type Department Care Team (Late st Contact Info) Description 05/16/2024 9:30 AM EST Office Visit [facility] [address] [place] [address] Gilda Francis PA [address] [place] [address] documented as of this encounter Visit Diagnoses Not on filedocumented in this encounter Care Teams Electrical Design Technologist Relationship Specialty Start Date End Date Mann Irene MD [address] [place] [id number] PCP - General Internal Medicine 08/23/12 07/13/22 Sujatha Goldman, RN Health Advocate Registered Nurse 02/28/1406/28 documented as of this encounter
--- OUTSIDE RECORDS SUMMARY | 2024-03-27 15:08 | XMS_ITS | Encounter Summary ---
Author Organization [place] [address] Care Team Providers Care Titrator Name Role Phone Mann Irene MD Primary Care Provider [phone] Reason for Visit * Reason Onset Date Comments Other 01/17/2014 Encounter Details Date Type Department Care Team (Late st Contact Info) Description 01/17/[address] [facility] [address] [facility] [address] [place] [address] Edil Mann MD [address] [place], [place] [id number] Other Social History Tobacco Use Types Packs/Day [...] Notes * Telephone Encounter - Erma Poon MA - 01/17/2014 4:43 PM EDT OK NOTED, PROCEDURE CX'D. * Telephone Encounter - Selma Trevino - 01/17/2014 4:21 PM EDT Cancel 9-16 per pt. Has to get hip replace surg. She will rs later. documented in this encounter Plan of Treatment Upcoming Encounters Date Type Department Care Team (Late st Contact Info) Description 05/16/2024 9:30 AM EST Office Visit [facility] [address] [place] [address] Gilda Francis PA [address] [place] [address] documented as of this encounter Visit Diagnoses Not on filedocumented in this encounter Care Teams Titrator Relationship Specialty Start Date End Date Mann Irene MD [address] [place] [id number] PCP - General Internal Medicine 08/23/12 07/13/22 documented as of this encounter
--- OUTSIDE RECORDS SUMMARY | 2024-03-27 15:08 | XMS_ITS | Encounter Summary ---
Author Organization [place] [address] Care Team Providers Care Revenue Field Agent Name Role Phone Mann Irene MD Primary Care Provider [phone] Sujatha Goldman RN Unavailable Unavai lable Reason for Visit * Reason Comments Medication Refill Encounter Details Date Type Department Care Team (Late st Contact Info) Description 03/07/2014 Refill [facility] [place] [address] Mann Irene MD [place] [facility] [place] [address] Medication Refill Social [...] TAKE 1 TABLET BY MOUTH ONCE DAILY 30 tablet 5 03/07/2014 03/14/2014 documented in this encounter Plan of Treatment Upcoming Encounters Date Type Department Care Team (Late st Contact Info) Description 05/16/2024 9:30 AM EST Office Visit [facility] [address] [place] [address] Gilda Francis PA [address] [place] [address] documented as of this encounter Visit Diagnoses Not on filedocumented in this encounter Care Teams Revenue Field Agent Relationship Specialty Start Date End Date Mann Irene MD [address] [place] [id number] PCP - General Internal Medicine 08/23/12 07/13/22 Sujatha Goldman, [facility] Health Advocate Registered Nurse 02/28/1406/28 documented as of this encounter
--- OUTSIDE RECORDS SUMMARY | 2024-03-27 15:08 | XMS_ITS | Encounter Summary ---
Author Organization [place] [facility] [place] [address] Care Team Providers Care Golf Course Equipment Operator Name Role Phone Mann Irene MD Primary Care Provider [phone] Sujatha Goldman RN Unavailable Unavai lable Reason for Visit * Reason Onset Date Comments Care Transition 03/29/2014 returning call Encounter Details Date Type Department Care Team (Late st Contact Info) Description 03/29/2014 Patient Outreach [facility] [address] [place] [address] Sujatha Goldman, engine lathe tender (returning call) Social History Tobacco Use Types Packs/Day [...] Telephone Encounter - Sujatha Goldman RN - 03/29/2014 9:48 AM EST Patient returning call from yesterday. Patient stated she's been doing good . Patient had seen surgeon yesterday and stated he seemed pleased . Patient stated she still experiences pain if she's been on her feet for a long period of time. Patient stated her right knee has been hurting, patient thinks its because she has transferred a lot of her weight to that leg. Patient has finished with homehealth therapy, stated she will be going to the [facility] to do exercises. Patient stated she's still needing to use her cane for ambulation. Patient goes for follow up on 05/12/2013 with surgeon,she's scheduled to be off work until 06/12/2013. Patient has no questions or concerns at this time. Contact information given for questions or concerns. documented in this encounter Plan of Treatment Upcoming Encounters Date Type Department Care Team (Late st Contact Info) Description 05/16/2024 9:30 AM EST Office Visit [facility] [address] [place] [address] Gilda Francis PA [address] [place] [address] documented as of this encounter Visit Diagnoses Not on filedocumented in this encounter Care Teams Golf Course Equipment Operator Relationship Specialty Start Date End Date Mann Irene MD [address] [place] [address] PCP - General Internal Medicine 08/23/12 07/13/22 Sujatha Goldman, RN Health Advocate Registered Nurse 02/28/1406/28 documented as of this encounter
--- OUTSIDE RECORDS SUMMARY | 2024-03-27 15:08 | XMS_ITS | Encounter Summary ---
Author Organization [place] [address] Care Team Providers Care Clinical Services Consultant Name Role Phone Mann Irene MD Primary Care Provider [phone] Reason for Referral * Consultation (Routine) - Closed Specialty Diagnoses / Procedures Referred By Ramona [email or web address] Referred To Contact Orthopaedic Surgery Diagnoses Hip fracture, unspecified laterality, closed, initial encounter (HCC) [place] [address] Phone: tel: fax: [address] [address] Phone: tel: fax: Referral ID Status Reason Start Date Expiration Date Visits Re quested Visits Authorized [id number] Closed 12/22/2013 12/22/2014 99 99 Encounter Details Date Type Department Care Team (Late st Contact Info) Description 12/22/2013 Orders Only [facility] [place] [address] Mann Irene MD [place] [facility] [place] [address] Hip fracture, unspecified laterality, closed, initial encounter (HCC) (Primary Dx) Social History Tobacco Use Types [...] EST Office Visit [facility] [address] [place] [address] Gilda Francis PA [address] [place] [address] Scheduled Referrals Name Type Priority Associated Diagnoses Orde r Schedule AMB REFERRAL TO ORTHOPEDIC SURGERY Outpatient Referral Routine Hip fracture, unspecified laterality, closed, initial encounter (HCC) Ordered: 12/22/2013 documented as of this encounter Visit Diagnoses Diagnosis Hip fracture, unspecified laterality, closed, initial encounter (HCC)- Primary documented in this encounter Care Teams Clinical Services Consultant Relationship Specialty Start Date End Date Mann Irene MD [address] [place] [address] PCP - General Internal Medicine 08/23/12 07/13/22 documented as of this encounter
--- OUTSIDE RECORDS SUMMARY | 2024-03-27 15:08 | XMS_ITS | Encounter Summary ---
Author Organization [place] [address] Care Team Providers Care Mobile Home Laborer Name Role Phone Mann Irene MD Primary Care Provider [phone] Reason for Visit * Reason Comments Medication Refill Encounter Details Date Type Department Care Team (Late Contact Info) Description 02/11/2014 Refill [facility] [place] [address] Mann Irene [place] [address] [place] [address] Medication Refill Social History Tobacco Use [...] on file documented as of this encounter Ordered Prescriptions Prescription Sig Dispense Quantity Refills Last Filled Start Date End Date diclofenac (VOLTAREN) 75 mg Oral Tablet, Delayed Release (E.C.) TAKE 1 TABLET BY MOUTH TWICE A DAY (WITH A MEAL) 60 tablet 2 02/11/2014 02/18/2014 documented in this encounter Plan of Treatment Upcoming Encounters Date Type Department Care Team (Late Contact Info) Description 05/16/2024 9:30 AM EST Office Visit [facility] [address] [place] [address] Gilda Francis PA [address] [place] [address] documented as of this encounter Visit Diagnoses Not on filedocumented in this encounter Discontinued Medications Medication Sig Discontinue Reason Start Date End Da te diclofenac (VOLTAREN) 75 mg EC tablet TAKE 1 TABLET TWICE A DAY (WITH A MEAL) Reorder 10/31/2013 02/11/2014 documented as of this encounter Care Teams Mobile Home Laborer Relationship Specialty Start Date End Date Mann [place] [address] [place] [address] PCP - General Internal Medicine 08/23/12 07/13/22 documented as of this encounter
--- OUTSIDE RECORDS SUMMARY | 2024-03-27 15:08 | XMS_ITS | Encounter Summary ---
Author Organization [place] [address] Care Team Providers Care Uniform Patrol Police Officer Name Role Phone Mann Irene MD Primary Care Provider [phone] Reason for Visit * Reason Onset Date Comments Other 12/22/2013 Encounter Details Date Type Department Care Team (Late st Contact Info) Description 12/22/2013 Telephone [facility] [place] [address] Mann Irene MD COUNTRY [facility] [place] [address] Other Social History Tobacco Use Types [...] Telephone Encounter - Brittany Slaughter CCMA - 12/23/2013 10:06 AM EDT Paperwork faxed pt will picker copy * Telephone Encounter - Mann Irene MD - 12/23/2013 9:21 AM EDT Forms completed. * Telephone Encounter - Noelle Nevarez - 12/23/2013 8:13 AM EDT orhto stated she will be out 8-12 wks Work note faxed to #[phone] [employer] fax #[phone] Pt would like a copy. * Telephone Encounter - Mann Irene MD - 12/22/2013 2:29 PM EDT When she gives us fax number, will extend leave. If she calls, ask her how long ortho said she would be out of work. Will fill out short term disability. * Telephone Encounter - Roque Noelle Mckeon - 12/22/2013 11:59 AM EDT Pt needs return to work note extended past the 18th. Pt will call back w/ fax number for us to fax. Pt checking on status of her short term insurance (standard) for disability. Pt stated that they were going to fax paperwork over to [facility]. Pt did get appt w/ ortho for today. documented in this encounter Plan of Treatment Upcoming Encounters Date Type Department Care Team (Late st Contact Info) Description 05/16/2024 9:30 AM EST Office Visit [facility] [address] [place] [address] Gilda Francis PA [address] [place] [address] documented as of this encounter Visit Diagnoses Not on filedocumented in this encounter Care Teams Uniform Patrol Police Officer Relationship Specialty Start Date End Date Mann Irene MD [address] [place] [address] PCP - General Internal Medicine 08/23/12 07/13/22 documented as of this encounter
--- OUTSIDE RECORDS SUMMARY | 2024-03-27 15:08 | XMS_ITS | Encounter Summary ---
Author Organization [place] [address] Care Team Providers Care Independent Jeweler Name Role Phone Mann Irene MD Primary Care Provider [phone] Sujatha Goldman RN Unavailable Cate dong Reason for Visit * Reason Comments Hospital Follow Up hip surgery Encounter Details Date Type Department Care Team (Late st Contact Info) Description 03/06/2014 2:00 PM EDT Office Visit [facility] [place] [address] Mann Irene MD [address] [place] [address] OA (osteoarthritis)-s/p RIGHT TOTAL HIP REPLACEMENT 02/16/14. (Primary Dx) Social History Tobacco Use Types [...] Reading Time Taken Comments Blood Pressure 130/70 03/06/2014 2:21 PM EDT Pulse 80 03/06/2014 2:21 PM EDT Temperature 37 ??C (98.6 ??F) 03/06/2014 2:21 PM EDT Respiratory Rate 18 03/06/2014 2:21 PM EDT Oxygen Saturation 98% 03/06/2014 2:21 PM EDT Inhaled Oxygen Concentration - - Weight 81.2 kg (179 lb) 03/06/2014 2:21 PM EDT Height 160 cm (5' 3 ) 03/06/2014 2:21 PM EDT Body Mass Index 31.71 03/06/2014 2:21 PM EDT documented in this encounter Functional [...] Progress Notes * Mann Irene MD - 03/06/2014 2:43 PM EDT Stella Hylton is a 68 y.o. female Chief Complaint Patient presents with ??? Hospital Follow Up hip surgery Incision c/d/i Follow up with Dr. Boswell mid March. Current leave is scheduled to 04/12/2014. Will need to stay off until 06/12/2014. BP 130/70 Pulse 80 Temp(Src) 98.6 ??F (37 ??C) (Oral) Resp 18 Ht 5' 3 (1.6 m) Wt 179 lb (81.194 kg) BMI 31.72 kg/m2 SpO2 98% Health Maintenance Health Maintenance Topic Date Due ??? Colon Cancer Screening Colonoscopy 09/19/1997 ??? Influenza Vaccine 12/09/2013 ??? Colon Cancer Screening Occult Blood 03/18/2014 ??? Annual Wellness Exam 09/26/2014 ??? Breast Cancer Screening 10/08/2015 ??? Pneumococcal Polysaccharide Vaccine Age 65 And Over Completed Problem List Patient Active Problem List Diagnosis ??? Hypercholesterolemia ??? OA (osteoarthritis)-s/p RIGHT TOTAL HIP REPLACEMENT 02/16/14. ??? Hypernatremia ??? Hip joint replacement by other means ??? Other physical therapy Medications Current Outpatient Prescriptions Medication Sig Dispense Refill ??? oxyCODONE-acetaminophen (PERCOCET) 5-325 mg Oral Tablet Take 1 tablet by mouth every 6 hours asneeded for Pain for up to 30 days. 60 tablet 0 ??? enoxaparin (LOVENOX) 40 mg/0.4 mL SubQ Syringe Subcutaneous (Inject under the skin) 0.4 mL daily. 14 Syringe 0 ??? atorvastatin (LIPITOR) 10 mg tablet Take 1 tablet by mouth daily. 30 tablet 11 ??? loratadine-pseudoephedrine (LORATADINE-PSEUDOEPHEDRINE) 10-240 mg Tb24 per tablet Take 1 Tab bymouth daily. 30 Tab 5 No current facility-administered medications for this visit. Surgery History Past Surgical History Procedure Laterality Date ??? Hysterectomy ??? Hemorrhoid surgery ??? Lumbar disc surgery 11/03/2012 Surgeon: Elza Bautista MD; Location: [facility] MA[facility] OR; Service: ??? Hip arthroplasty Right 02/16/2014 RIGHT TOTAL HIP REPLACEMENT; Surgeon: Bruce Oh MD; Location: [facility]; Service: Orthopedics Social history [...] lesions noted. Stella was seen today for hospital follow up. Diagnoses and associated orders for this visit: OA (osteoarthritis)-s/p RIGHT TOTAL HIP REPLACEMENT 02/16/14. Doing well with rehab. Incision site clean/dry. Recommended staying off work as stated per orthopedics. Continue current rehab plan. AVS given to patient and discussed. documented in this encounter Miscellaneous Notes * Patient Instructions - Mann Irene MD - 03/06/2014 5:43 PM EDT You may be contacted by [...] Office Visit [facility] [address] [place] [address] Gilda Francis PA [address] [place] [address] documented as of this encounter Visit Diagnoses Diagnosis OA (osteoarthritis)-s/p RIGHT TOTAL HIP REPLACEMENT 02/16/14.- Primary Osteoarthrosis, unspecified whether generalized or localized, unspecified site documented in this encounter Care Teams Independent Jeweler Relationship Specialty Start Date End Date Mann Irene MD [address] [place] [address] PCP - General Internal Medicine 08/23/12 07/13/22 Sujatha Goldman, RN Health Advocate Registered Nurse 02/28/1406/28 documented as of this encounter
--- OUTSIDE RECORDS SUMMARY | 2024-03-27 15:08 | XMS_ITS | Encounter Summary ---
Author Organization [place] [address] Care Team Providers Care Ceramic Sprayer Name Role Phone Mann Irene MD Primary Care Provider [phone] Sujatha Goldman RN Unavailable Unavai labadeline Reason for Visit * Reason Onset Date Comments Care Transition 04/28/2014 Face to face enc ounter Encounter Details Date Type Department Care Team (Late st Contact Info) Description 04/28/2014 Patient Outreach [facility] [address] [place] [address] Sujatha Goldman, cadmium liquor maker (Face to face encounter) Social History Tobacco Use Types Packs/Day Years [...] Entry Date Author No 02/20/2014 3:41 PM hRea Sainz RN documented in this encounter Miscellaneous Notes * Telephone Encounter - Sujatha Goldman RN - 04/28/2014 10:51 AM EST Face to face encounter follow up . Discharged 02/25/2014 Total Hip replacement Spoke with patient, stated she was doing good . Patient stated incision line healed. Patient stated she's ambulating ok . Patient c/o watery stools, with abdominal cramping, no fever noted, no vomiting, no foul odor tostools noted. Patient has been experiencing loose stool and pain for several months. Patient statedshe's eating and drinking ok , no issues with urinating or bowel movements. Contact information given for questions and concerns. documented in this encounter Plan of Treatment Upcoming Encounters Date Type Department Care Team (Late st Contact Info) Description 05/16/2024 9:30 AM EST Office Visit [facility] [address] [place] [address] Gilda Francis PA [address] [place] [address] documented as of this encounter Visit Diagnoses Not on filedocumented in this encounter Care Teams Ceramic Sprayer Relationship Specialty Start Date End Date Mann Irene MD [address] [place] [address] PCP - General Internal Medicine 08/23/12 07/13/22 Sujatha Goldman, RN Health Advocate Registered Nurse 02/28/1406/28 documented as of this encounter
--- OUTSIDE RECORDS SUMMARY | 2024-03-27 15:09 | XMS_ITS | Encounter Summary ---
Author Organization [place] [address] Care Team Providers Care Stave And Bolt Equalizer Name Role Phone Mann Irene MD Primary Care Provider [phone] Reason for Visit * Reason Onset Date Comments Other 09/15/2012 Encounter Details Date Type Department Care Team (Late st Contact Info) Description 09/15/2012 Telephone [facility] [place] [address] Mann Irene MD COUNTRY [facility] [place] [address] Other Social History Tobacco Use Types Packs/Day Years Used Date Smoking Tobacco: Former Smokeless Tobacco: Never Alcohol Use Standard Drinks/Week Comments No 0 (1 standard drink = 0.6 oz pur e alcohol) Comments No Sex and Gender Information Value Date Recorded Sex Assigned at Not on file Legal Sex Female 5:30 PM EDT Gender Identity Not on file Sexual Orientation Not on file documented as of this encounter Miscellaneous Notes * Telephone Encounter - Micheline Saxena - 09/16/2012 12:32 PM EDT Spoke with patient * Telephone Encounter - Sumi Arana - 09/15/2012 12:11 PM EDT Returning Micheline's call, please call back either Thu or documented in this encounter Plan of Treatment Upcoming Encounters Date Type Department Care Team (Late st Contact Info) Description 05/16/2024 9:30 AM EST Office Visit [facility] [address] [place] [address] Gilda Francis PA [address] [place] [address] documented as of this encounter Visit Diagnoses Not on filedocumented in this encounter Care Teams Stave And Bolt Equalizer Relationship Specialty Start Date End Date Mann [place] [address] PCP - General Internal Medicine 08/23/12 07/13/22 documented as of this encounter
--- OUTSIDE RECORDS SUMMARY | 2024-03-27 15:09 | XMS_ITS | Encounter Summary ---
Author Organization [place] [address] Care Team Providers Care Control Panel Operator Crude Unit Name Role Phone Mann Irene MD Primary Care Provider [phone] Encounter Details Date Type Department Care Team (Latest Contact Info) Description 09/13/2012 10:25 AM EDT - 09/13/2012 4:09 PM EDT Hospital Encounter GRT XRAY [address] [place] [address] Low back pain Discharge Disposition: Home or [...] on file documented as of this encounter Discharge Disposition Disposition Code Departure Means Destination Home or Self Care documented in this encounter Plan of Treatment Upcoming Encounters Date Type Department Care Team (Late st Contact Info) Description 05/16/2024 9:30 AM EST Office Visit [facility] [address] [place] [address] Gilda Francis PA [address] [place] [address] documented as of this encounter Procedures Procedure Name Priority Date/Time Associated Diagnosis Comments XR LUMBAR SPINE AP LATERAL AND OBLIQUES Routine 09/13/2012 10:46 AM EDT Low back pain documented in this encounter Results * XR LUMBAR SPINE AP LATERAL AND [...] IMG DIAGNOSTIC IMAGING ORDERAB LES Final Result documented in this encounter Visit Diagnoses Diagnosis Low back pain Lumbago documented in this encounter Care Teams Control Panel Operator Crude Unit Relationship Specialty Start Date End Date Mann Irene MD [address] [place] [address] PCP - General Internal Medicine 08/23/12 07/13/22 documented as of this encounter
--- OUTSIDE RECORDS SUMMARY | 2024-03-27 15:09 | XMS_ITS | Encounter Summary ---
Author Organization [place] [address] Care Team Providers Care Waste Picker Name Role Phone Mann Irene MD Primary Care Provider [phone] Reason for Visit * Reason Comments Medication Refill Encounter Details Date Type Department Care Team (Late Contact Info) Description 06/19/2013 Refill [facility] [place] [address] [address] Mann Irene MD [...] Date End Date diclofenac (VOLTAREN) 75 mg EC tablet TAKE 1 TABLET TWICE A DAY (WITH A MEAL) 60 Tab 2 06/19/2013 09/26/2013 documented in this encounter Plan of Treatment Upcoming Encounters Date Type Department Care Team (Late Contact Info) Description 05/16/2024 9:30 AM EST Office Visit [facility] [address] [place] [phone] Gilda Francis PA [address] [place] [address] documented as of this encounter Visit Diagnoses Not on filedocumented in this encounter Discontinued Medications Medication Sig Discontinue Reason Start Date End Da te diclofenac (VOLTAREN) 75 mg EC tabletIndications:Osteoar thritis Take 1 Tab by mouth 2 times daily (with meals). Reorder 03/18/2013 06/19/2013 documented as of this encounter Care Teams Waste Picker Relationship Specialty Start Date End Date Mann Irene MD [address] [place] [address] PCP - General Internal Medicine 08/23/12 07/13/22 documented as of this encounter
--- OUTSIDE RECORDS SUMMARY | 2024-03-27 15:09 | XMS_ITS | Encounter Summary ---
Author Organization [place] [address] Care Team Providers Care Awning Erector Name Role Phone Mann Irene MD Primary Care Provider [phone] Reason for Visit * Reason Onset Date Comments Results 04/27/2013 Encounter Details Date Type Department Care Team (Late st Contact Info) Description 04/27/2013 Telephone [facility] [place] [address] Mann Irene MD [address] [facility] [place] [address] Results Social History Tobacco Use Types [...] Date End Date atorvastatin (LIPITOR) 10 mg tablet Take 1 Tab by mouth daily for 180 days. 30 Tab 5 04/28/2013 12/17/2013 documented in this encounter Miscellaneous Notes * Telephone Encounter - Brittany Slaughter CCMA - 04/28/2013 9:53 AM EST Left message with instructions on voicemail @ 9:53am * Telephone Encounter - Mann Irene MD - 04/28/2013 7:50 AM EST Medication sent to pharmacy. Recheck levels in about 2-3 months. * Telephone Encounter - Julianna Franklin RMA - 04/27/2013 8:45 AM EST Pt called for results. You suggested a low dose of cholesterol medication if she was agreeable and she would like to start that documented in this encounter Plan of Treatment Upcoming Encounters Date Type Department Care Team (Late st Contact Info) Description 05/16/2024 9:30 AM EST Office Visit [facility] [address] [place] [address] Gilda Francis PA [address] [place] [address] documented as of this encounter Visit Diagnoses Not on filedocumented in this encounter Care Teams Awning Erector Relationship Specialty Start Date End Date Mann Irene MD [address] [place] [phone] PCP - General Internal Medicine 08/23/12 07/13/22 documented as of this encounter
--- OUTSIDE RECORDS SUMMARY | 2024-03-27 15:09 | XMS_ITS | Encounter Summary ---
Author Organization [place] [address] Care Team Providers Care Wharf Tender Name Role Phone Mann Irene MD Primary Care Provider [phone] Reason for Referral * Echo (Routine) - Closed Specialty Diagnoses / Procedures Referred By Ramona [email or web address] Referred To Contact Radiology Diagnoses Heart murmur Procedures EC ECHOCARDIOGRAM COMPLETE W DOPPLER AND COLOR FLOW MAPPING Mann [place] [address] [place] [address] Phone: tel: fax: EDG [facility] [place] [address] Phone: tel: fax: Referral ID Status Reason Start Date Expiration Date Visits Re quested Visits Authorized [id number] Closed 09/26/2013 03/25/2014 1 1 Reason for Visit * Echo (Routine) - Closed Specialty Diagnoses / Procedures Referred By Ramona t Referred To Contact Radiology Diagnoses Heart murmur Procedures EC ECHOCARDIOGRAM COMPLETE W DOPPLER AND COLOR FLOW MAPPING Mann [place] [address] [place] [address] Phone: tel: fax: EDG ECHO [facility] [place] [address] Phone: tel: fax: Referral ID Status Reason Start Date Expiration Date Visits Re quested Visits Authorized [id number] Closed 09/26/2013 03/25/2014 1 1 Encounter Details Date Type Department Care Team (Latest Contact Info) Description 10/07/2013 12:19 PM EDT - 10/07/2013 12:21 PM EDT Hospital Encounter EDG ECHO [facility] [place] [address] Mann Irene MD [address] [place] [address] Heart murmur Discharge Disposition: Home or Self Care Social [...] Office Visit [facility] [address] [place] [phone] Gilda Francis PA [address] [place] [address] documented as of this encounter Procedures Procedure Name Priority Date/Time Associated Diagnosis Comments EC ECHOCARDIOGRAM COMPLETE W DOPPLER AND COLOR FLOW MAPPING Routine 10/07/2013 1:25 PM EDT Heart murmur documented in this encounter Results * EC ECHOCARDIOGRAM COMPLETE W DOPPLER AND COLOR FLOW MAPPING (10/07/2013 1:25 PM EDT) [facility] Signature Ejection Fraction 55-60 % PYRAMIS Anatomical Region Laterality Modality Electrocardiogra phy 10/07/2013 12:5 5 PM EDT Impressions 10/07/2013 5:59 PM EDT ??FINDINGS ??Estimated Left Ventricular Ejection Fraction ??=55-60% ??Left Ventricle ? Left ventricular cavity size normal. ? Normal left ventricular wall motion. ? Ejection fraction estimated to be 55-60% ??Right Ventricle ?Normal right ventricular size and function. ??Right Atrium ? Normal right atrial size. ??Left Atrium ?Normal left atrial size. Left atrial volume index is estimated to be 21 ml/m2. ??Mitral Valve ? Mitral valve thickened. Mild mitral annular calcification. Calcified chordal structures noted. No mitral ? stenosis, regurgitation or prolapse. ??Aortic Valve ? Trileaflet aortic valve. Moderate thickening (sclerosis) of the aortic valve cusps without reduced excursion. ? No aortic valve stenosis or regurgitation. ??Tricuspid Valve ?Structurally normal tricuspid valve. No tricuspid stenosis or prolapse. [id number] tricuspid ? regurgitation. Right ventricular systolic pressure estimated at ??47 mmHg. ??Pulmonic Valve ? Structurally normal pulmonic valve. No pulmonic stenosis. Trace pulmonic regurgitation. ??Pericardium ?Normal pericardium. No pericardial or pleural effusion. ??Aorta ?Sclerotic changes noted to aortic root and arch. ??However, measures within normal limits. ??CONCLUSIONS ??Preserved left ventricular systolic function. ??Possible pulmonary hypertension. Narrative Procedure Note Flakito Quintero MD - 10/07/2013 IMPRESSION FINDINGS Estimated Left Ventricular Ejection Fraction =55-60% Left Ventricle Left ventricular cavity size normal. Normal left ventricular wall motion. Ejection fraction estimated to be 55-60% Right Ventricle Normal right ventricular size and function. Right Atrium Normal right atrial size. Left Atrium Normal left atrial size. Left atrial volume index isestimated to be 21 ml/m2. Mitral Valve Mitral valve thickened. Mild mitral annularcalcification. Calcified chordal structures noted. No mitral stenosis, regurgitation or prolapse. Aortic Valve Trileaflet aortic valve. Moderate thickening(sclerosis) of the aortic valve cusps without reduced excursion. No aortic valve stenosis or regurgitation. Tricuspid Valve Structurally normal tricuspid valve. No tricuspidstenosis or prolapse. Dyav-[id number] tricuspid regurgitation. Right ventricular systolic pressureestimated at 47 mmHg. Pulmonic Valve Structurally normal pulmonic valve. No pulmonicstenosis. Trace pulmonic regurgitation. Pericardium Normal pericardium. No pericardial or pleuraleffusion. Aorta Sclerotic changes noted to aortic root and arch.However, measures within normal limits. CONCLUSIONS Preserved left ventricular systolic function. Possible pulmonary hypertension. us Mann Irene MD IMG ECHO ORDERABLES Final Resu lt documented in this encounter Visit Diagnoses Diagnosis Heart murmur Undiagnosed cardiac murmurs documented in this encounter Care Teams Wharf Tender Relationship Specialty Start Date End Date Mann Irene MD [address] [place] [place] [address] PCP - General Internal Medicine 08/23/12 07/13/22 documented as of this encounter
--- OUTSIDE RECORDS SUMMARY | 2024-03-27 15:09 | XMS_ITS | Encounter Summary ---
Author Organization [place] [address] Care Team Providers Care Latex Caster Name Role Phone Mann Irene MD Primary Care Provider [phone] Encounter Details Date Type Department Care Team (Latest Contact Info) Description 09/13/2012 4:10 PM EDT - 09/13/2012 11:59 PM EDT Hospital Encounter [facility]G [facility] PROCESSING [facility] [place] [address] Well adult exam Discharge Disposition: Home or [...] Notes * Miscellaneous - Unknown, Unknown - 09/13/2012 4:11 PM EDT documented in this encounter Plan of Treatment Upcoming Encounters Date Type Department Care Team (Late st Contact Info) Description 05/16/2024 9:30 AM EST Office Visit [facility] [address] [place] [address] Gilda Francis PA [address] [place] [address] documented as of this encounter Procedures Procedure Name Priority Date/Time Associated Diagnosis Comments CBC Routine 09/13/2012 8:50 AM EDT Well adult exam LIPID SCREEN Routine 09/13/2012 8:50 AM EDT Well adult exam COMPREHENSIVE METABOLIC PANEL Routine 09/13/2012 8:50 AM EDT Well adult exam documented in this encounter Results * CBC (09/13/2012 8:50 AM EDT) WBC 9.3 4.0 - 11.0 x10(3)/mcL [facility] RBC 4.80 4.00 - 5.10 x10(6)/mcL [facility] Hgb 14.4 12.0 - 15.7 gm/dL [facility] Hct 43.6 36.0 - 45.9 % [facility] MCV 90.9 80.0 - 95.8 fL [facility] MCH 30.0 27.0 - 33.2 pg [facility] MCHC 33.0 33.0 - 36.0 gm/dL [facility] RDW 14.2 11.5 - 14.5 % [facility] Platelet 308 150 - 400 x10(3)/mcL [facility] MPV 8.2 7.0 - 12.0 fL [facility] Blood specimen (specimen) UPPER LIMB STRUCTURE / Unknown 09/13/2012 8:50 AM EDT 09/13/2012 4:55 PM EDT us Mann Irene MD HEMATOLOGY ORDERABLES Final Re sult [facility] [address] [place] [address] * (ABNORMAL) COMPREHENSIVE METABOLIC PANEL (09/13/2012 8:50 AM EDT) Sodium 147(H) 135 - 143 mmol/L [facility] Potassium 4.6 3.5 - 5.0 mmol/L [facility] Chloride 107 98 - 108 mmol/L [facility] Total CO2 27 22 - 31 mmol/L [facility] Anion Gap 13 7 - 16 mmol/L [facility] Calcium 9.6 8.6 - 10.3 mg/dL [facility] Glucose Lvl 108(H) 70 - 100 mg/dL [facility] BUN 11 7 - 19 mg/dL [facility] Creatinine 0.6 0.6 - 1.0 mg/dL [facility] Albumin 4.0 3.4 - 4.8 gm/dL [facility] Total Protein 7.7 6.0 - 8.2 gm/dL [facility] Bili Total 0.7 0.1 - 1.3 mg/dL [facility] AST 25 14 - 36 IU/L [facility] ALT 21 6 - 60 IU/L [facility] Alk Phos 94 41 - 119 IU/L [facility] GFR Afr Am >60 [facility] Comment: GFR is estimated using creatinine, age, gender, and race. ??GFR has been validated for patients between 18 and 70 years of age. GFR has not been validated for women, patients with serious comorbid conditions, or persons with extremes of body size, muscle mass, or nutritional status. ??For additional information: ??www.kidney.org. Chronic kidney disease stage ? GFR (ml/min/1.73 square meters) ? Stage 3 ? 30 - 59 ? Stage 4 ? 15 - 29 ? Stage 5 ? 14 or less GFR Non Afr Am >60 [facility] Blood specimen (specimen) UPPER LIMB STRUCTURE / Unknown 09/13/2012 8:50 AM EDT 09/13/2012 4:55 PM EDT us Mann Irene MD CHEMISTRY ORDERABLES Final Res ult [facility] [address] [place] [address] * (ABNORMAL) LIPID SCREEN (09/13/2012 8:50 AM EDT) Cholesterol 228(H) <=200 mg/dL [facility] Comment: < 200 ?Desirable 200 - 239 ? Borderline High >= 240 ?High Triglyceride 193(H) <=150 mg/dL [facility] Comment: < 150 ? Normal 150 - 199 ?Borderline High 200 - 499 ?High ??>= 500 ? Very High HDL 39(L) >=40 mg/dL [facility] Comment: ?? > 60 ?Optimal 40 - 60 ?Acceptable ?? < 40 ?Low LDL Calculated 150(H) <=100 mg/dL [facility] Comment: ??< 100 ?Optimal 100 - 129 ? Near or above optimal 130 - 159 ? Borderline High 160 - 189 ? High >= 190 ?Very High Blood specimen (specimen) UPPER LIMB STRUCTURE / Unknown 09/13/2012 8:50 AM EDT 09/13/2012 4:55 PM EDT us Mann Irene MD CHEMISTRY ORDERABLES Edited Re grzegorz - Final [facility] [address] [place] [address] documented in this encounter Visit Diagnoses Diagnosis Well adult exam Routine general medical examination at a health care facility documented in this encounter Care Teams Latex Caster Relationship Specialty Start Date End Date Mann Irene MD [address] [place] [address] PCP - General Internal Medicine 08/23/12 07/13/22 documented as of this encounter
--- OUTSIDE RECORDS SUMMARY | 2024-03-27 15:09 | XMS_ITS | Encounter Summary ---
Author Organization [place] [address] Care Team Providers Care Detective Homicide Squad Name Role Phone Mann Irene MD Primary Care Provider [phone] Reason for Visit * Reason Comments Facial Swelling feels like its burni ng this morning Encounter Details Date Type Department Care Team (Late st Contact Info) Description 12/03/2012 4:00 PM EDT Office Visit [facility] [place] [address] Mann [place] [address] [address] [place] [address] Malar Rash (Primary Dx) Social History Tobacco Use Types [...] Reading Time Taken Comments Blood Pressure 130/70 12/03/2012 3:36 PM EDT Pulse 74 12/03/2012 3:36 PM EDT Temperature 36.8 ??C (98.2 ??F) 12/03/2012 3:36 PM ED T Respiratory Rate 16 12/03/2012 3:36 PM EDT Oxygen Saturation 98% 12/03/2012 3:36 PM EDT Inhaled Oxygen Concentration - - Weight 90.7 kg (200 lb) 12/03/2012 3:36 PM EDT Height 160 cm (5' 3 ) 12/03/2012 3:36 PM EDT Body Mass Index 35.43 12/03/2012 3:36 PM EDT documented in this encounter Ordered Prescriptions Prescription Sig Dispense Quantity Refills Last Filled Start Date End Date fluocinonide (LIDEX) 0.05 % creamIndications:M alar rash Apply topically 2 times daily for 15 days. 15 g 0 12/03/2012 3 documented in this encounter Progress Notes * Mann Irene MD - 12/03/2012 3:58 PM EDT Stella Hylton is a 67 y.o. female Chief Complaint Patient presents with ??? Facial Swelling feels like its burning this morning As above. Facial rash. There is no problem list on file for this patient. ROS: No TIA's or unusual headaches, no dysphagia. No prolonged cough. No dyspnea or chest pain on exertion. No abdominal pain, change in bowel habits, black or bloody stools. No urinary tract symptoms. No new or unusual musculoskeletal symptoms. BP 130/70 Pulse 74 Temp(Src) 98.2 ??F (36.8 ??C) (Oral) Resp 16 Ht 5' 3 (1.6 m) Wt 200 lb (90.719 kg) BMI 35.44 kg/m2 SpO2 98% The physical exam is generally normal. Patient [...] exam is normal without focal findings. Skin with malar rash noted. Stella was seen today for facial swelling. Diagnoses and associated orders for this visit: Malar Rash - fluocinonide (LIDEX) 0.05 % cream; Apply topically 2 times daily for 15 days. Other Orders - HYDROcodone-acetaminophen (VICODIN ES) 7.5-750 mg per tablet; Take 1 Tab by mouth every 6 hours as needed. AVS given to patient and discussed. documented in this encounter Miscellaneous Notes * Patient Instructions - Mann Irene MD - 12/03/2012 4:30 PM EDT Thank you for enrolling in [employer]. Please follow the instructions below to securely access your online medical record. [employer] allows you to send messages to your doctor, view your test results, renew your prescriptions, request appointments and more. How Do I Sign Up? 1. In your Internet browser, navigate to [email or web address] or [email or web address] and click on the [employer] link. 2. Click on the Use your Activation Code button in the New User Registration section on the right. You will see the Please Identify Yourself page. 3. Enter your [employer] Activation Code exactly as it appears below. You will not need to use this code after you???ve completed the sign-up process. This activation code will 60 days after the date at the top of this page at which time you must request a new code from your doctors office. [employer] Activation Code: Not generated Current [employer] Status: Active 4. Enter your Social Security Number ([id number]) and Date of (mm/dd/yyyy) as indicated and click Next. You will be taken to the next sign-up page. 5. Create a [employer] ID. This will be your [employer] login ID and cannot be changed, so think of one that is secure and easy to remember. 6. Create a [employer] password. You can change your password at any time. 7. Enter your Password Reset Question and Answer. This can be used at a later time if you forget your password. Click Next. 8. Enter your e-mail address. You will receive e-mail notification when new information is available in [employer]. 9. Click Sign Up. You can now view your medical record. Additional Information Additional Information If you have questions, call your doctors office to talk to a MyChart staff member. Remember, MyChart is NOT to be used for urgent needs. For medical emergencies, dial 911. documented in this encounter Plan of Treatment Upcoming Encounters Date Type Department Care Team (Late st Contact Info) Description 05/16/2024 9:30 AM EST Office Visit [facility] [address] [place] [phone] Gilda Francis PA [address] [place] [address] documented as of this encounter Visit Diagnoses Diagnosis Malar rash- Primary Rash and other nonspecific skin eruption documented in this encounter Discontinued Medications Medication Sig Discontinue Reason Start Date End Da te oxyCODONE-acetaminophen (PERCOCET) 5-325 mg per tablet Take 1 Tab by mouth every 4 hours as needed for Pain for 30 days. Alternate therapy 11/03/2012 12/03/2012 documented as of this encounter Historical Medications * This list may reflect changes made after this encounter. HYDROcodone-aceta minophen (VICODIN ES) 7.5-750 mg per tablet Take 1 Tab by mouth every 6 hours as needed. 09/26/2013 added in this encounter Care Teams Detective Homicide Squad Relationship Specialty Start Date End Date Mann Irene MD [address] [facility] [place] [phone] PCP - General Internal Medicine 08/23/12 07/13/22 documented as of this encounter
--- OUTSIDE RECORDS SUMMARY | 2024-03-27 15:09 | XMS_ITS | Encounter Summary ---
Author Organization [place] [address] Care Team Providers Care Account Group Supervisor Name Role Phone Mann Irene MD Primary Care Provider [phone] Encounter Details Date Type Department Care Team (Latest Contact Info) Description 12/16/2013 1:04 PM EDT - 12/16/2013 3:40 PM EDT Hospital Encounter GRT XRAY [address] [facility] [place] [address] Thigh pain, right Discharge Disposition: [...] AM EST Office Visit [facility] [address] [place] [address] Gilda Francis PA [address] [place] [address] documented as of this encounter Procedures Procedure Name Priority Date/Time Associated Diagnosis Comments XR KNEE RIGHT AP LATERAL AND SUNRISE STANDING Routine 12/16/2013 1:48 PM EDT Thigh pain, right XR FEMUR RIGHT AP AND LATERAL Routine 12/16/2013 1:48 PM EDT Thigh pain, right documented in this encounter Results * XR KNEE RIGHT AP LATERAL AND SUNRISE STANDING (12/16/2013 1:48 PM EDT) Anatomical Region Laterality Modality Knee Radiographic Demetra ging 12/16/2013 1:04 PM EDT Impressions 12/16/2013 2:12 PM EDT IMPRESSION: Negative right knee films. Narrative 12/16/2013 2:12 PM EDT PROCEDURE: Three-view right knee, 12/16/2013. INDICATION: Pain without trauma. FINDINGS: Standing AP and lateral, and sunrise views of the right knee. No prior. No fracture or malalignment. No worrisome bony lesion or radiopaque foreign body. No joint effusion. Joint spaces are well-preserved. Procedure Note Taiwo Puentes MD - 12/16/2013 PROCEDURE: Three-view right knee, 12/16/2013. INDICATION: Pain without trauma. FINDINGS: Standing AP and lateral, and sunrise views of the right knee. Noprior. No fracture or malalignment. No worrisome bony lesion or radiopaque foreign body. Nojoint effusion. Joint spaces are well-preserved. IMPRESSION: Negative right knee films. us Stefania Braun MD IMG DIAGNOSTIC IMAG ING ORDERABLES Final Result * XR FEMUR RIGHT AP AND LATERAL (12/16/2013 1:48 PM EDT) Anatomical Region Laterality Modality Thigh Radiographic Demetra ging 12/16/2013 1:04 PM EDT Impressions 12/16/2013 3:09 PM EDT IMPRESSION: Osteoarthritis of the right hip joint. Otherwise, normal right femur. Narrative 12/16/2013 3:09 PM EDT XR FEMUR RIGHT AP AND LATERAL ??Dec 16, 2013 01:48:57 PM Clinical: 729.5-Pain in [id number] COMPARISONS: None. FINDINGS: There are no acute or healing fractures in the right femur. 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 The surrounding soft tissues are normal. Procedure Note Chasity Marie MD - 12/16/2013 XR FEMUR RIGHT AP AND LATERAL Dec 16, 2013 01:48:57 PM Clinical: 729.5-Pain in [id number] COMPARISONS: None. FINDINGS: There are no acute or healing fractures in the right femur. There ismoderate osteoarthritis of the right femoral acetabular joint. The surrounding soft tissues arenormal. IMPRESSION: Osteoarthritis of the right hip joint. Otherwise, normal right femur. Stefania Braun MD IMG DIAGNOSTIC IMAG ING ORDERABLES Final Result documented in this encounter Visit Diagnoses Diagnosis Thigh pain, right documented in this encounter Care Teams Account Group Supervisor Relationship Specialty Start Date End Date Mann Irene MD [address] [place] [phone] PCP - General Internal Medicine 08/23/12 07/13/22 documented as of this encounter
--- OUTSIDE RECORDS SUMMARY | 2024-03-27 15:09 | XMS_ITS | Encounter Summary ---
Author [place] [address] Care Team Providers Care Polisher And Sander Name Role Phone Mann Irene MD Primary Care Provider [phone] Reason for Visit * Reason Comments Leg Pain RT leg pain since luna ving back surgery Encounter Details Date Type Department Care Team (Late st Contact Info) Description 12/16/2013 11:00 AM EDT Office Visit [facility] [address] [place] [address] Stefania Oquendo MD Thigh pain, right (Primary Dx) Social History Tobacco Use Types [...] Sign Reading Time Taken Comments Blood Pressure 148/76 12/16/2013 10:53 AM EDT Pulse 85 12/16/2013 10:53 AM EDT Temperature 36.7 ??C (98.1 ??F) 12/16/2013 10:53 AM E DT Respiratory Rate - - Oxygen Saturation 96% 12/16/2013 10:53 AM EDT Inhaled Oxygen Concentration - - Weight 79.4 kg (175 lb) 12/16/2013 10:53 AM EDT Height 161.3 cm (5' 3.5 ) 12/16/2013 10:53 AM ED T Body Mass Index 30.51 12/16/2013 10:53 AM EDT documented in this encounter Progress Notes * Brittany Slaughter CCMA - 12/16/2013 11:28 AM EDT Venipuncture in the right antecubital vein with 22 gauge needle, length 1 1/2 inch. * Stefania Mendenhall MD - 12/16/2013 10:54 AM EDT Stella Hylton is a 68 y.o. female Chief Complaint Patient presents with ??? Leg Pain RT leg pain since having back surgery States right leg is hurting so bad she can't stand on it. Started gradually and has progressively got worse. Had back surgery last October 2012 due to back pain. Denies leg pain prior to surgery today. States after surgery, had numbness/tingling pain in right leg. Now having sharp pain when she stands up, walks. No pain with standing. Pain is from knee up thigh. Patient Active Problem List Diagnosis ??? Hypercholesterolemia ROS: A complete review of systems was obtained with all negative except as per HPI. PHYSICAL EXAM BP 148/76 Pulse 85 Temp(Src) 98.1 ??F (36.7 ??C) (Oral) Ht 5' 3.5 (1.613 m) Wt 175 lb (79.379 kg) BMI 30.51 kg/m2 SpO2 96% The physical exam is generally normal except [...] no pedal edema, no clubbing or cyanosis. Antalgic gait. Musculoskeletal exam: No tenderness to palpation of knee. Pain is in mid thigh and appears more musculoskeletal. Neurologic exam is normal without focal findings. Skin is normal without suspicious lesions noted. Hospital Outpatient Visit on 10/07/2013 Component Date Value Range Status ??? Ejection Fraction 10/07/2013 55-60 Final No results found for this visit on 12/16/13. Stella was seen today for leg pain. Diagnoses and associated orders for this visit: Thigh pain, right - Creatine Kinase - Clinic Collect; Future - X-ray femur right AP and lateral; Future - XR KNEE RIGHT AP LATERAL AND SUNRISE STANDING; Future - CO HANDLG&/OR CONVEY OF SPEC FOR TR OFFICE TO LAB - CO COLLECTION VENOUS BLOOD,VENIPUNCTURE Return in about 1 week (around 12/23/2013), or if symptoms worsen or fail to improve. AVS given to patient and discussed. documented in this encounter Miscellaneous Notes * Patient Instructions - Jo Saucedo RMA - 12/16/2013 10:54 AM EDT I hope I answered all your questions today, explained possible treatments or workup for your symptoms, discussed potential side effects of medications, and made appropriate dietary and follow up recommendations. If labs, imaging studies, or biopsies were done, my nurse will call you in 1-2 weeks after I have reviewed the results with my recommendations and follow up. If you are signed up for my chart, you may check your lab and radiology results via the internet. These results are automaticallyreleased by [facility] usually before I get to review them 2-3 days after they are reported. Pathology results are not automatically released. We will make every effort to also call to further expl ain the results and answer any questions you may have. If for some reason you do not hear from us or have additional questions, please do not hesitate to call anytime at [phone]. There is also adoctor parts counter salesperson through this number anytime the office is not open if you have any urgent questions.We also ask that you call at least 48 hours prior if you are not able to keep your scheduled appointment or procedure so that we may offer the appointment slot to someone else. You will receive a phone call notification from us reminding you of your office visit or procedure. You may be contacted by mail or e-mail to participate in a patient satisfaction survey regarding your office visit today. We value your opinion and depend on your feedback to make improvements and provide you with the best possible experience while receiving high quality medical treatment. Your time in completing this survery is greatly appreciated. If we did not meet your needs today, please call the office and ask to speak to our special weapons unit officer. documented in this encounter Plan of Treatment Upcoming Encounters Date Type Department Care Team (Late st Contact Info) Description 05/16/2024 9:30 AM EST Office Visit [facility] [address] [place] [address] Gilda Francis PA [address] [place] [address] Scheduled Orders Name Type Priority Associated Diagnoses Orde r Schedule CO HANDLG&/OR CONVEY OF SPEC FOR TR OFFICE TO LAB CO Charge Routine Thigh pain, right Ordered: 12/16/2013 documented as of this encounter Results * XR KNEE RIGHT [...] are well-preserved. IMPRESSION: Negative right knee films. Result [facility] Stefania Braun MD [facility] DIAGNOSTIC IMAG ING ORDERABLES Final Result * [...] 16, 2013 01:48:57 PM Clinical: 729.5-Pain in [id number] COMPARISONS: None. FINDINGS: There are no acute or healing fractures in the right femur. 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 The surrounding soft tissues are normal. Procedure Note Chasity Marie MD - 12/16/2013 XR FEMUR RIGHT AP AND LATERAL Dec 16, 2013 01:48:57 PM Clinical: 729.5-Pain in [id number] COMPARISONS: None. FINDINGS: There are no acute or healing fractures in the right femur. There ismoderate osteoarthritis of the right femoral acetabular joint. The surrounding soft tissues arenormal. IMPRESSION: Osteoarthritis of the right hip joint. Otherwise, normal right femur. Stefania Braun MD [facility] DIAGNOSTIC IMAG ING ORDERABLES Final Result * CREATINE KINASE (12/16/2013 11:28 AM EDT) CK 106 26 - 192 IU/L [facility] Blood specimen (specimen) UPPER LIMB STRUCTURE / Unknown 12/16/2013 11:28 AM EDT 12/16/2013 4:15 PM EDT Result [facility] Stefania Braun MD CHEMISTRY ORDERABLE S Final Result [facility] [address] [place] [address] documented in this encounter Visit Diagnoses Diagnosis Thigh pain, right- Primary Thigh pain, right documented in this encounter Discontinued Medications Medication Sig Discontinue Reason Start Date End Da te celecoxib (CELEBREX) 200 mg capsuleIndications:Osteoa rthritis Take 1 Cap by mouth 2 times daily for 180 days. Side effects 09/26/2013 12/16/2013 documented as of this encounter Orders Charge Count Last Ordered Date First Orde red Date CO COLLECTION VENOUS BLOOD,VENIPUNCTURE 1 0 12/16/2013 documented in this encounter Care Teams Polisher And Sander Relationship Specialty Start Date End Date Mann Irene MD [address] [address] PCP - General Internal Medicine 08/23/12 07/13/22 documented as of this encounter
--- OUTSIDE RECORDS SUMMARY | 2024-03-27 15:09 | XMS_ITS | Encounter Summary ---
Author Organization [place] [address] Care Team Providers Care Agricultural Lender Name Role Phone Mann Irene MD Primary Care Provider [phone] Sujatha Goldman RN Unavailable Unavacharlee labadeline Reason for Visit * Reason Comments Medication Refill Encounter Details Date Type Department Care Team (Late st Contact Info) Description 10/31/2013 Refill [facility] [address] [place] [address] Mann Irene MD [facility] [place] [address] Medication Refill Social History Tobacco Use [...] DAY (WITH A MEAL) 60 Tab 2 10/31/2013 02/11/2014 documented in this encounter Plan of Treatment Upcoming Encounters Date Type Department Care Team (Late st Contact Info) Description 05/16/2024 9:30 AM EST Office Visit [facility] [address] [place] [address] Gilda Francis PA [address] [place] [address] documented as of this encounter Visit Diagnoses Not on filedocumented in this encounter Care Teams Agricultural Lender Relationship Specialty Start Date End Date Mann [place] [address] [address] [place] [address] PCP - General Internal Medicine 08/23/12 07/13/22 Sujatha Goldman, RN Health [facility]ocate Registered Nurse 02/28/1406/28 documented as of this encounter
--- OUTSIDE RECORDS SUMMARY | 2024-03-27 15:09 | XMS_ITS | Encounter Summary ---
Author Organization [place] [address] Care Team Providers Care Electrocardiogram Technician Name Role Phone Crys Irene MD Primary Care Provider Reason for Referral * MRI/CAT Scan (Routine) - Closed Specialty Diagnoses / Procedures Referred By Contac t Referred To Contact Radiology Diagnoses Low back pain Procedures MRI LUMBAR SPINE WO CONTRAST Crys Irene MD [address] [place] [address] Phone: tel: fax: [facility] [address] [place] [address] Phone: tel: Referral ID Status Reason Start Date Expiration Date Visits Re quested Visits Authorized [id number] Closed 09/14/2012 03/13/2013 1 1 Reason for Visit * Reason Comments Annual Exam new pt Back Pain lumbar pain Leg Pain bilateral leg pain x 6 months Encounter Details Date Type Department Care Team (Late st Contact Info) Description 09/13/2012 8:30 AM EDT Office Visit [facility] [address] [place] [address] Crys Irene MD [address] [place] [address] Low back pain (Primary Dx); Well adult exam Social History Tobacco Use Types Packs/Day Years [...] Reading Time Taken Comments Blood Pressure 130/70 09/13/2012 8:28 AM EDT Pulse 84 09/13/2012 8:28 AM EDT Temperature 36.4 ??C (97.6 ??F) 09/13/2012 8:28 AM ED T Respiratory Rate 18 09/13/2012 8:28 AM EDT Oxygen Saturation 91% 09/13/2012 8:28 AM EDT Inhaled Oxygen Concentration - - Weight 92.1 kg (203 lb) 09/13/2012 8:28 AM EDT Height 162.6 cm (5' 4 ) 09/13/2012 8:28 AM EDT Body Mass Index 34.84 09/13/2012 8:28 AM EDT documented in this encounter Progress Notes * Jill Beck - 09/13/2012 9:03 AM EDT Subjective: Patient ID: Stella Hylton is a 66 y.o. female. HPI Patients past medical, family and social histories were reviewed and updated. There were no changesexcept as noted. Review of Systems Objective: Filed Vitals: 09/13/12 0828 BP: 130/70 Pulse: 84 Temp: 97.6 ??F (36.4 ??C) TempSrc: Oral Resp: 18 Height: 5' 4 (1.626 m) Weight: 203 lb (92.08 kg) SpO2: 91% Body mass index is 34.83 kg/(m^2). Physical Exam Assessment and Plan: Stella was seen today for annual exam, back pain and leg pain. Diagnoses and associated orders for this visit: Low back pain - X-ray lumbar spine AP lateral and obliques; Future Well adult exam - Venipuncture - CBC - Clinic Collect; Future - Lipid Screen - Clinic Collect; Future - Comprehensive Metabolic Panel - Clinic Collect; Future Venipuncture in the right antecubital vein with 21 gauge needle, length 1 1/2 inch. * Crys Irene MD - 09/13/2012 8:36 AM EDT Stella Hylton is a 66 y.o. female BP 130/70 Pulse 84 Temp(Src) 97.6 ??F (36.4 ??C) (Oral) Resp 18 Ht 5' 4 (1.626 m) Wt 203lb (92.08 kg) BMI 34.83 kg/m2 SpO2 91% Chief Complaint Patient presents with ??? Annual Exam new pt ??? Back Pain lumbar pain ??? Leg Pain bilateral leg pain x 6 months Travels all over [place] [employer]. Was last in [place]. Bilateral lower leg pain. Back pain. Cannot sleep. Has been going on for 6 mos. No injury or accident recently. Maybe 30 years ago went to a doctor about her lower back. Told she had one herniated disk in her lower back. No surgery at that time. Stiff/sore in the morning. Constant. Gets worse the more she walks on it. Leg pain sometimes eases up, but is present a lot of the time. Pain seems to stop around the level of the knee. Leg pain eases if she lays down and props legs up. Routine checkup. Wants cholesterol checked. There is no problem list on file [...] normal, no murmurs, clicks, gallops or rubs. Bilateral low back pain. Positive reflexes bilaterally - normal exam. Abdomen is soft, no tenderness, masses or organomegaly. Neurologic exam is normal without focal findings. Skin is normal without suspicious lesions noted. Stella was seen today for annual exam, back pain and leg pain. Diagnoses and associated orders for this visit: Low back pain - X-ray lumbar spine AP lateral and obliques; Future Well adult exam - Venipuncture - CBC - Clinic Collect; Future - Lipid Screen - Clinic Collect; Future - Comprehensive Metabolic Panel - Clinic Collect; Future AVS given to patient and discussed. documented in this encounter Miscellaneous Notes * Addendum Note - Crys Irene MD - 09/14/2012 4:48 PM EDTAddended by: CRYS IRENE on: 09/14/2012 04:48 PM Modules accepted: Orders * Patient Instructions - Crys Irene MD - 09/13/2012 8:49 AM EDT Thank you for enrolling in [employer]. Please follow the instructions below to securely access your online medical record. [employer] allows you to send messages to your doctor, view your test results, renew your prescriptions, request appointments and more. How Do I Sign Up? 1. In your Internet browser, navigate to [email or web address] or [email or web address] and click on the [employer] link. 2. Click on the Sign Up Now link in the Sign In box. You will see the New Member Sign Up page. 3. Enter your [employer] Access Code exactly as it appears below. You will not need to use this code after you???ve completed the sign-up process. This activation code will 60 days after the dateat the top of this page at which time you must request a new code from your doctors office. [employer] Access Code: [email or web address] Expires: 11/12/2012 8:49 AM 4. Enter your Social Security Number ([id number]) and Date of (mm/dd/yyyy) as indicated and click Submit. You will be taken to the next sign- up page. 5. Create a [employer] ID. This will be your [employer] login ID and cannot be changed, so think of one that is secure and easy to remember. 6. Create a [employer] password. You can change your password at any time. 7. Enter your Password Reset Question and Answer. This can be used at a later time if you forget your password. 8. Enter your e-mail address. You will receive e-mail notification when new information is available in [employer]. 9. Click Sign Up. You can now view your medical record. Additional Information Additional Information If you have questions, call your doctors office to talk to a [employer] staff member. Remember, [employer] is NOT to be used for urgent needs. For medical emergencies, dial 911. documented in this encounter Plan of Treatment Upcoming Encounters Date Type Department Care Team (Late st Contact Info) Description 05/16/2024 9:30 AM EST Office Visit [facility] [address] [place] [address] Gilda Francis PA [address] [place] [address] documented as of this encounter Results * MRI LUMBAR SPINE WO CONTRAST (09/21/2012 8:38 AM EDT) Anatomical Region Laterality Modality L-spine Magnetic Resonan ce 09/21/2012 Impressions 09/21/2012 11:19 AM EDT IMPRESSION: 1. Multilevel lower lumbar degenerative disc disease with moderate central canal stenosis L4-L5 from combined diffuse disc bulge, ligamentum flavum and facet hypertrophy. Moderate left and moderate to significant right neural foraminal stenosis at L4-L5. 2. Moderate bilateral neural foraminal stenosis at L5-S1 and left L3-L4. Narrative 09/21/2012 11:19 AM EDT MRI lumbar spine without contrast on 09/21/2012. COMPARISON: Lumbar spine plain films 09/13/2012. INDICATION: 67-year-old with lower back pain extending down legs. TECHNICAL FACTORS: Sagittal and axial T1 and T2-weighted sequences and sagittal STIR sequence obtained on 1.5 Erin magnet. FINDINGS: Best appreciated on plain films is subtle dextroscoliosis, centered mid lumbar spine. Vertebral bodies demonstrate normal height, alignment and configuration. There is mild inhomogeneous fatty marrow. Left anterior superior corner of L2 vertebral body has focal T2 and T1 hyperintensity. This could be focal fatty marrow or degenerative change. There is no acute marrow edema at any level. L1 vertebral body has a medium sized hyperintense hemangioma. There is minimal diffuse disc bulge T11-T12. Central canal and neural foramen are normal. T12-L1 disc is normal. At L1-L2, there is mild diffuse disc bulge. The thecal sac is flattened. Mild canal narrowing. No neural foraminal stenosis. At L2-L3, there is mild diffuse disc bulge with flattened ventral thecal sac mild central canal narrowing. No neural foraminal stenosis. At L3-L4, there is mild to moderate diffuse disc bulge with mild to moderate narrowing of central canal. There is mild bilateral ligamentum flavum and facet hypertrophy. Left neural foramen is moderately narrowed. Inferior right neural foramen is mildly narrowed. At L4-L5, there is moderate diffuse disc bulge. Mild ligamentum flavum and facet hypertrophy contributes to moderate central canal stenosis. AP diameter of thecal sac is 5 to 6 mm. Both lateral recesses are narrowed, right greater than left, with potential for proximal L5 nerve root compromise. There is moderate left and moderate to significant right neural foraminal stenosis. At L5-S1, there is mild diffuse disc bulge with mild narrowing of central canal. No distortion of thecal sac. S1 nerve roots are not displaced. There is moderate bilateral neural foraminal stenosis and mild to moderate bilateral facet hypertrophy. Changes are greater on the right. All lumbar discs are mildly narrowed and all are desiccated. Conus tip is normal in configuration and signal. Tip ends mid L1. Procedure Note Lily Herr MD - 09/21/2012 MRI lumbar spine without contrast on 09/21/2012. COMPARISON: Lumbar spine plain films 09/13/2012. INDICATION: 67-year-old with lower back pain extending down legs. TECHNICAL FACTORS: Sagittal and axial T1 and T2-weighted sequences andsagittal STIR sequence obtained on 1.5 Erin magnet. FINDINGS: Best appreciated on plain films is subtle dextroscoliosis, centered midlumbar spine. Vertebral bodies demonstrate normal height, alignment and configuration. There ismild inhomogeneous fatty marrow. Left anterior superior corner of L2 vertebral body has focalT2 and T1 hyperintensity. This could be focal fatty marrow or degenerative change.There is no acute marrow edema at any level. L1 vertebral body has a medium sizedhyperintense hemangioma. There is minimal diffuse disc bulge T11-T12. Central canal and neuralforamen are normal. T12-L1 disc is normal. At L1-L2, there is mild diffuse disc bulge. The thecal sac is flattened.Mild canal narrowing. No neural foraminal stenosis. At L2-L3, there is mild diffuse disc bulge with flattened ventral thecalsac mild central canal narrowing. No neural foraminal stenosis. At L3-L4, there is mild to moderate diffuse disc bulge with mild tomoderate narrowing of central canal. There is mild bilateral ligamentum flavum and facethypertrophy. Left neural foramen is moderately narrowed. Inferior right neural foramen is mildlynarrowed. At L4-L5, there is moderate diffuse disc bulge. Mild ligamentum flavum andfacet hypertrophy contributes to moderate central canal stenosis. AP diameter of thecal sacis 5 to 6 mm. Both lateral recesses are narrowed, right greater than left, with potential forproximal L5 nerve root compromise. There is moderate left and moderate to significant rightneural foraminal stenosis. At L5-S1, there is mild diffuse disc bulge with mild narrowing of centralcanal. No distortion of thecal sac. S1 nerve roots are not displaced. There is moderatebilateral neural foraminal stenosis and mild to moderate bilateral facet hypertrophy. Changes aregreater on the right. All lumbar discs are mildly narrowed and all are desiccated. Conus tip isnormal in configuration and signal. Tip ends mid L1. IMPRESSION: 1. Multilevel lower lumbar degenerative disc disease with moderate centralcanal stenosis L4-L5 from combined diffuse disc bulge, ligamentum flavum and facethypertrophy. Moderate left and moderate to significant right neural foraminal stenosis at L4-L5. 2. Moderate bilateral neural foraminal stenosis at L5-S1 and left L3-L4. Crys Irene MD [facility] MRI ORDERABLES Final Resul t * XR LUMBAR SPINE AP LATERAL AND [...] diseaseabout the SI joints. IMPRESSION: Degenerative changes. Crys rIene MD [facility] DIAGNOSTIC IMAGING ORDERAB LES Final Result * (ABNORMAL) COMPREHENSIVE METABOLIC PANEL (09/13/2012 8:50 AM EDT) Sodium 147(H) 135 - 143 mmol/L [facility] Potassium 4.6 3.5 - 5.0 mmol/L [facility] Chloride 107 98 - 108 mmol/L [facility] Total CO2 27 22 - 31 mmol/L [facility] Anion Gap 13 7 - 16 mmol/L [facility] Calcium 9.6 8.6 - 10.3 mg/dL [facility] Glucose Lvl 108(H) 70 - 100 mg/dL [facility] BUN 11 7 - 19 mg/dL [facility] Creatinine 0.6 0.6 - 1.0 mg/dL [facility] Albumin 4.0 3.4 - 4.8 gm/dL [facility] Total Protein 7.7 6.0 - 8.2 gm/dL [facility] Bili Total 0.7 0.1 - 1.3 mg/dL [facility] AST 25 14 - 36 IU/L [facility] ALT 21 6 - 60 IU/L [facility] Alk Phos 94 41 - 119 IU/L [facility] GFR Afr Am >60 [facility] Comment: GFR is estimated using creatinine, [...] AM EDT 09/13/2012 4:55 PM EDT us Crys Irene MD CHEMISTRY ORDERABLES Final Res ult Performing Organization Address [facility] de Phone Number [facility] [address] [place] [address] * (ABNORMAL) LIPID SCREEN (09/13/2012 8:50 AM EDT) Cholesterol 228(H) <=200 mg/dL [facility] Comment: < 200 ?Desirable 200 - 239 ? Borderline High >= 240 ?High Triglyceride 193(H) <=150 mg/dL [facility] Comment: < 150 ? Normal 150 - 199 ?Borderline High 200 - 499 ?High ??>= 500 ? Very High HDL 39(L) >=40 mg/dL [facility] Comment: ?? > 60 ?Optimal 40 - 60 ?Acceptable ?? < 40 ?Low LDL Calculated 150(H) <=100 mg/dL [facility] Comment: ??< 100 ?Optimal 100 - 129 ? Near or above optimal 130 - 159 ? Borderline High 160 - 189 ? High >= 190 ?Very High Blood specimen (specimen) UPPER LIMB STRUCTURE / Unknown 09/13/2012 8:50 AM EDT 09/13/2012 4:55 PM EDT us Crys Irene MD CHEMISTRY ORDERABLES Edited Re sult - Final Performing Organization Address [facility] Co de Phone Number [facility] [address] [place] [address] * CBC (09/13/2012 8:50 AM EDT) WBC 9.3 4.0 - 11.0 x10(3)/mcL [facility] RBC 4.80 4.00 - 5.10 x10(6)/mcL [facility] Hgb 14.4 12.0 - 15.7 gm/dL [facility] Hct 43.6 36.0 - 45.9 % [facility] MCV 90.9 80.0 - 95.8 fL [facility] MCH 30.0 27.0 - 33.2 pg [facility] MCHC 33.0 33.0 - 36.0 gm/dL [facility] RDW 14.2 11.5 - 14.5 % [facility] Platelet 308 150 - 400 x10(3)/mcL [facility] MPV 8.2 7.0 - 12.0 fL [facility] Blood specimen (specimen) UPPER LIMB STRUCTURE / Unknown 09/13/2012 8:50 AM EDT 09/13/2012 4:55 PM EDT Crys Irene MD HEMATOLOGY ORDERABLES Final Re sult [facility] [address] [place] [address] documented in this encounter Visit Diagnoses Diagnosis Low back pain- Primary Lumbago Well adult exam Routine general medical examination at a health care facility Low back pain Lumbago Low back pain Lumbago documented in this encounter Orders Charge Count Last Ordered Date First Orde red Date MS COLLECTION VENOUS BLOOD,VENIPUNCTURE 1 0 09/13/2012 documented in this encounter Care Teams Electrocardiogram Technician Relationship Specialty Start Date End Date Crys [place] [address] [place] [phone] PCP - General Internal Medicine 08/23/12 07/13/22 documented as of this encounter
--- OUTSIDE RECORDS SUMMARY | 2024-03-27 15:09 | XMS_ITS | Encounter Summary ---
Author Organization [place] [address] Care Team Providers Care Technical Producer Name Role Phone Mann Irene MD Primary Care Provider [phone] Encounter Details Date Type Department Care Team (Late st Contact Info) Description 04/06/2013 Orders Only [facility] [place] [address] [place] [address] Mann Irene MD [address] [place] [address] Hyperlipidemia (Primary Dx) Social History Tobacco Use Types [...] EST Office Visit [facility] [address] [place] [address] Gilda Francis PA [address] [place] [address] (work) documented as of this encounter Results * (ABNORMAL) LIPID PANEL REFLEX (04/14/2013 9:17 AM EST) Cholesterol 236(H) <=200 mg/dL [facility] Comment: < 200 ?Desirable 200 - 239 ? Borderline High >= 240 ?High Triglyceride 90 <=150 mg/dL [facility] Comment: < 150 ? Normal 150 - 199 ?Borderline High 200 - 499 ?High ??>= 500 ? Very High HDL 42 >=40 mg/dL [facility] Comment: ?? > 60 ?Optimal 40 - 60 ?Acceptable ?? < 40 ?Low Blood specimen (specimen) UPPER LIMB STRUCTURE / Unknown 04/14/2013 9:17 AM EST 04/14/2013 3:54 PM EST us Mann Irene MD CHEMISTRY ORDERABLES Final Res ult [facility] [address] [place] [address] * (ABNORMAL) COMPREHENSIVE METABOLIC PANEL (04/14/2013 9:17 AM EST) Sodium 144(H) 135 - 143 mmol/L [facility] Potassium 4.5 3.5 - 5.0 mmol/L [facility] Chloride 106 98 - 108 mmol/L [facility] Total CO2 28 22 - 31 mmol/L [facility] Anion Gap 10 7 - 16 mmol/L [facility] Calcium 9.1 8.6 - 10.3 mg/dL [facility] Glucose Lvl 99 70 - 100 mg/dL [facility] BUN 14 7 - 19 mg/dL [facility] Creatinine 0.6 0.6 - 1.0 mg/dL [facility] Albumin 3.8 3.4 - 4.8 gm/dL [facility] Total Protein 7.4 6.0 - 8.2 gm/dL [facility] Bili Total 0.5 0.1 - 1.3 mg/dL [facility] AST 24 14 - 36 IU/L [facility] ALT 36 6 - 60 IU/L [facility] Alk Phos 109 41 - 119 IU/L [facility] GFR Afr Am >60 [facility] Comment: GFR is estimated using [...] or less GFR Non Afr Am >60 [facility] Blood specimen (specimen) UPPER LIMB STRUCTURE / Unknown 04/14/2013 9:17 AM EST 04/14/2013 9:17 AM EST us Mann Irene MD CHEMISTRY ORDERABLES Final Res ult [facility] [address] [place] [address] * CBC WITH AUTO DIFF (04/14/2013 9:17 AM EST) WBC 8.2 4.0 - 11.0 x10(3)/mcL [facility] RBC 4.66 3.80 - 5.10 x10(6)/mcL [facility] Hgb 13.6 12.0 - 15.6 gm/dL [facility] Hct 41.0 35.7 - 45.9 % [facility] MCV 88.1 82.5 - 99.8 fL [facility] MCH 29.1 27.0 - 34.3 pg [facility] MCHC 33.0 32.1 - 35.3 gm/dL [facility] RDW 14.2 11.5 - 15.0 % [facility] Platelet 327 144 - 423 x10(3)/mcL [facility] MPV 7.7 6.8 - 10.8 fL [facility] Blood specimen (specimen) UPPER LIMB STRUCTURE / Unknown 04/14/2013 9:17 AM EST 04/14/2013 9:17 AM EST us Mann Irene MD HEMATOLOGY ORDERABLES Final Re sult [facility] [address] [place] [address] documented in this encounter Visit Diagnoses Diagnosis Hyperlipidemia- Primary Other and unspecified hyperlipidemia documented in this encounter Care Teams Technical Producer Relationship Specialty Start Date End Date Mann Irene MD [address] [place] [phone] PCP - General Internal Medicine 08/23/12 07/13/22 documented as of this encounter
--- OUTSIDE RECORDS SUMMARY | 2024-03-27 15:09 | XMS_ITS | Encounter Summary ---
Author Organization [place] [address] Care Team Providers Care Case Specialist Name Role Phone Mann Irene MD Primary Care Provider [phone] Reason for Referral * GI Procedure (Routine) - Closed Specialty Diagnoses / Procedures Referred By Ramona mcdaniel Referred To Contact Internal Medicine-Gastroenterol ogy / General Surgery Diagnoses Special screening for malignant neoplasms, colon Procedures AMB COLONOSCOPY COMM ORDER Edil Mann MD Phone: tel: fax: Edil Mann MD Phone: tel: fax: Referral ID Status Reason Start Date Expiration Date Visits Re quested Visits Authorized [id number] Closed 12/12/2013 06/10/2014 1 1 Encounter Details Date Type Department Care Team (Late st Contact Info) Description 12/12/2013 Orders Only [facility] [address] [facility] Building [address] [place] [phone] Kindra Wren MA Special screening for malignant neoplasms, colon (Primary Dx) Social History Tobacco Use Types [...] EST Office Visit [facility] [address] [facility] [phone] Gilda Francis PA [address] [place] [address] documented as of this encounter Visit Diagnoses Diagnosis Special screening for malignant neoplasms, colon- Primary documented in this encounter Orders Nursing Count Last Ordered Date First Orde red Date AMB COLONOSCOPY COMM ORDER 1 12/12/2013 documented in this encounter Care Teams Case Specialist Relationship Specialty Start Date End Date Mann Irene MD [address] [place] [phone] PCP - General Internal Medicine 08/23/12 07/13/22 documented as of this encounter
--- OUTSIDE RECORDS SUMMARY | 2024-03-27 15:09 | XMS_ITS | Encounter Summary ---
Author Organization [place] [address] Care Team Providers Care Minute Clerk Name Role Phone Mann Irene MD Primary Care Provider [phone] Reason for Visit * Auth/Cert/Inpt - Closed Specialty Diagnoses / Procedures Referred By Contac t Referred To Contact Diagnoses Spinal stenosis, lumbar region, without neurogenic claudication Spinal stenosis, other than cervical, Lumbar region, without neurogenic claudi Procedures LUMBAR LAMINECTOMY L4,5 (MIDAS,MICRO,ATHROMBIC) Referral ID Status Reason Start Date Expiration Date Visits Re quested Visits Authorized [id number] Closed 1 1 Encounter Details Date Type Department Care Team (Latest Contact Info) Description 10/28/2012 10:43 AM EDT - 10/28/2012 11:59 PM EDT Hospital Encounter EDG PRE-ADMIT TESTING [facility] [address] [place] [id number], Edg Pat Nurse Discharge Disposition: Home or Self Care Social [...] Sign Reading Time Taken Comments Blood Pressure 128/97 10/28/2012 11:07 AM EDT Pulse 92 10/28/2012 11:07 AM EDT Temperature 36.8 ??C (98.3 ??F) 10/28/2012 11:07 AM E DT Respiratory Rate 14 10/28/2012 11:07 AM EDT Oxygen Saturation 93% 10/28/2012 11:07 AM EDT Inhaled Oxygen Concentration - - Weight 90.7 kg (200 lb) 10/28/2012 11:07 AM EDT Height 160 cm (5' 3 ) 10/28/2012 11:07 AM EDT Body Mass Index 35.43 10/28/2012 11:07 AM EDT documented in this encounter Medications at Time of Discharge cyclobenzaprine (FLEXERIL) 10 mg tablet Take 1 Tab by mouth every 8 hours as needed for Muscle spasms for 30 days. 90 Tab 1 11/03/2012 12/03/2012 documented as of this encounter Discharge Disposition Disposition Code Departure Means Destination Home or Self Care documented in this encounter Plan of Treatment Upcoming Encounters Date Type Department Care Team (Late st Contact Info) Description 05/16/2024 9:30 AM EST Office Visit [facility] [address] [place] [phone] Gilda Francis, PA [address] [place] [address] documented as of this encounter Visit Diagnoses Not on filedocumented in this encounter Historical Medications * This list may reflect changes made after this encounter. GLUCOSAMINE HCL/CHONDR WILLETT A NA (OSTEO BI-FLEX ORAL) Take 2 Tabs by mouth daily. 03/18/2013 added in this encounter Care Teams Minute Clerk Relationship Specialty Start Date End Date Mann Irene MD [address] [place] [phone] PCP - General Internal Medicine 08/23/12 07/13/22 documented as of this encounter
--- OUTSIDE RECORDS SUMMARY | 2024-03-27 15:09 | XMS_ITS | Encounter Summary ---
Author [place] [address] Care Team Providers Care Wreath And Garland Maker Hand Name Role Phone Mann Irene MD Primary Care Provider [phone] Reason for Visit * Reason Onset Date Comments Results 10/11/2013 Encounter Details Date Type Department Care Team (Late st Contact Info) Description 10/11/2013 Telephone [facility] [address] [address] Mann Irene MD [facility] [place] [address] Results Social History Tobacco Use Types [...] Telephone Encounter - Brittany Slaughter CCMA - 10/11/2013 4:50 PM EDT Left instructions on voicemail @ 4;30 pm * Telephone Encounter - Mann Irene MD - 10/11/2013 2:52 PM EDT Results from tests should be in your results box. Mychart was reset for her. MARTHA is her username. Should be able to reset password now. * Telephone Encounter - Cheyanne Donovan - 10/11/2013 2:23 PM EDT TEST RESULTS FROM U/S AND VENOUS? 10/07/13 ALSO NEEDS TO RESET PASSWORD FOR MY CHART. documented in this encounter Plan of Treatment Upcoming Encounters Date Type Department Care Team (Late st Contact Info) Description 05/16/2024 9:30 AM EST Office Visit [facility] [address] [place] [address] Gilda Francis PA [address] [place] [address] documented as of this encounter Visit Diagnoses Not on filedocumented in this encounter Care Teams Wreath And Garland Maker Hand Relationship Specialty Start Date End Date Mann Irene MD [address] [place] [id number] PCP - General Internal Medicine 08/23/12 07/13/22 documented as of this encounter
--- OUTSIDE RECORDS SUMMARY | 2024-03-27 15:09 | XMS_ITS | Encounter Summary ---
Author Organization [place] [address] Care Team Providers Care Diversional Therapist'S Assistant Name Role Phone Mann Irene MD Primary Care Provider [phone] Reason for Visit * Diagnostic Test (Routine) - Closed Specialty Diagnoses / Procedures Referred By Contmillicent t Referred To Contact Radiology Diagnoses Claudication (HCC) Procedures [facility] LOWER EXTREMITY ARTERIAL DUPLEX COMPLETE AL ARTERIAL Mann Irene MD [address] [place] [address] Phone: tel: fax: [facility] [place] [address] Phone: tel: fax: Referral ID Status Reason Start Date Expiration Date Visits Re quested Visits Authorized [id number] Closed 10/07/2013 04/05/2014 1 1 Encounter Details Date Type Department Care Team (Latest Contact Info) Description 10/07/2013 12:22 PM EDT - 10/07/2013 11:59 PM EDT Hospital Encounter [facility] [place] [address] Mann Irene MD [address] [place] [id number] Claudication (HCC) Discharge Disposition: Home or [...] EST Office Visit [facility] [address] [place] [address] Gilda Francis PA [address] [place] [address] documented as of this encounter Procedures Procedure Name Priority Date/Time Associated Diagnosis Comments [facility] LOWER EXTREMITY ARTERIAL PHYSIOLOGICAL Routine 10/07/2013 12:56 PM EDT Claudication (HCC) documented in this encounter Results * [facility] LOWER EXTREMITY ARTERIAL PHYSIOLOGICAL (10/07/2013 12:56 PM EDT) Anatomical Region Laterality Modality Vascular, Leg Vascular Imaging 10/07/2013 12:2 4 PM EDT Impressions 10/07/2013 1:57 PM EDT ??CONCLUSIONS ??Normal hemodynamics of both lower extremities at rest. PVR's and Doppler waveforms are within normal limits bilaterally. No ?evidence of arterial insufficiency in the bilateral lower extremities. ?? Narrative Procedure Note Prabhu Cheatham MD - 10/07/2013 IMPRESSION CONCLUSIONS Normal hemodynamics of both lower extremities at rest. PVR's and Dopplerwaveforms are within normal limits bilaterally. No evidence of arterial insufficiency in the bilateral lower extremities. Mann Irene MD IMG VASCULAR ORDERABLES Final Result documented in this encounter Visit Diagnoses Diagnosis Claudication (HCC) Peripheral vascular disease, unspecified documented in this encounter Care Teams Diversional Therapist'S Assistant Relationship Specialty Start Date End Date Mann Irene MD [address] [place] [place] [id number] PCP - General Internal Medicine 08/23/12 07/13/22 documented as of this encounter
--- OUTSIDE RECORDS SUMMARY | 2024-03-27 15:09 | XMS_ITS | Encounter Summary ---
Author Organization [place] Address [facility] [place] [place] [address] Care Team Providers Care Cellar Hand Name Role Phone Mann Irene MD Primary Care Provider [phone] Encounter Details Date Type Department Care Team (Latest Contact Info) Description 09/26/2013 7:11 PM EDT - 09/26/2013 11:59 PM EDT Hospital Encounter [facility] [place] [place] [address] Hypercholesterolemia Discharge Disposition: Home or Self Care Social [...] Notes * Miscellaneous - Unknown, Unknown - 09/26/2013 7:11 PM EDT documented in this encounter Plan of Treatment Upcoming Encounters Date Type Department Care Team (Late st Contact Info) Description 05/16/2024 9:30 AM EST Office Visit [facility] [address] [place] [address] Gilda Francis PA [address] [place] [address] documented as of this encounter Procedures Procedure Name Priority Date/Time Associated Diagnosis Comments LDL, CALCULATED Routine 09/26/2013 10:09 AM EDT LIPID PANEL REFLEX Routine 09/26/2013 10 :09 AM EDT Hypercholesterolem ia CBC Routine 09/26/2013 10:09 AM EDT Hypercholesterolem ia COMPREHENSIVE METABOLIC PANEL Routine 09/26/2013 10:09 AM EDT Hypercholesterolem ia documented in this encounter Results * (ABNORMAL) LDL, CALCULATED (09/26/2013 10:09 AM EDT) LDL Calculated 102(H) <=100 mg/dL [facility] Comment: ??< 100 ?Optimal 100 - 129 ? Near or above optimal 130 - 159 ? Borderline High 160 - 189 ? High >= 190 ?Very High Blood specimen (specimen) 09/26/2013 10:09 AM EDT 09/26/2013 7:31 PM EDT us Mann Irene MD CHEMISTRY ORDERABLES Final Res ult [facility] [address] [place] [address] * LIPID PANEL REFLEX (09/26/2013 10:09 AM EDT) Cholesterol 168 <=200 mg/dL [facility] Comment: < 200 ?Desirable 200 - 239 ? Borderline High >= 240 ?High Triglyceride 96 <=150 mg/dL [facility] Comment: < 150 ? Normal 150 - 199 ?Borderline High 200 - 499 ?High ??>= 500 ? Very High HDL 47 >=40 mg/dL [facility] Comment: ?? > 60 ?Optimal 40 - 60 ?Acceptable ?? < 40 ?Low Blood specimen (specimen) UPPER LIMB STRUCTURE / Unknown 09/26/2013 10:09 AM EDT 09/26/2013 7:31 PM EDT us Mann Irene MD CHEMISTRY ORDERABLES Edited Re sult - Final [facility] [address] [place] [address] * (ABNORMAL) COMPREHENSIVE METABOLIC PANEL (09/26/2013 10:09 AM EDT) Sodium 144 136 - 145 mmol/L [facility] Potassium 5.2(H) 3.5 - 5.0 mmol/L [facility] Chloride 107 98 - 107 mmol/L [facility] Total CO2 28 22 - 29 mmol/L [facility] Anion Gap 9 7 - 16 mmol/L [facility] Calcium 9.6 8.8 - 10.2 mg/dL [facility] Glucose Lvl 89 82 - 100 mg/dL [facility] BUN 13 8 - 23 mg/dL [facility] Creatinine 0.70 0.51 - 1.00 mg/dL [facility] Albumin 4.2 3.2 - 4.6 gm/dL [facility] Total Protein 7.2 6.4 - 8.3 gm/dL [facility] Bili Total 0.4 0.1 - 1.3 mg/dL [facility] AST 12 <=40 IU/L [facility] ALT 13 <=41 IU/L [facility] Alk Phos 103 35 - 104 IU/L [facility] GFR Afr Am >60 [facility] Comment: GFR is estimated using [...] or less GFR Non Afr Am >60 [facility] Blood specimen (specimen) UPPER LIMB STRUCTURE / Unknown 09/26/2013 10:09 AM EDT 09/26/2013 7:31 PM EDT us Mann Irene MD CHEMISTRY ORDERABLES Edited Re grzegorz - Final [facility] [address] [place] [address] * CBC (09/26/2013 10:09 AM EDT) WBC 8.2 4.0 - 11.0 x10(3)/mcL [facility] RBC 4.87 3.80 - 5.10 x10(6)/mcL [facility] Hgb 14.1 12.0 - 15.6 gm/dL [facility] Hct 42.4 35.7 - 45.9 % [facility] MCV 87.1 82.5 - 99.8 fL [facility] MCH 29.0 27.0 - 34.3 pg [facility] MCHC 33.3 32.1 - 35.3 gm/dL [facility] RDW 14.0 11.5 - 15.0 % [facility] Platelet 298 144 - 423 x10(3)/mcL [facility] MPV 7.8 6.8 - 10.8 fL [facility] Blood specimen (specimen) UPPER LIMB STRUCTURE / Unknown 09/26/2013 10:09 AM EDT 09/26/2013 7:31 PM EDT us Mann Irene MD HEMATOLOGY ORDERABLES Final Re sult [facility] [address] [place] [address] documented in this encounter Visit Diagnoses Diagnosis Hypercholesterolemia Pure hypercholesterolemia documented in this encounter Care Teams Cellar Hand Relationship Specialty Start Date End Date Mann Irene MD [address] [place] [phone] PCP - General Internal Medicine 08/23/12 07/13/22 documented as of this encounter
--- OUTSIDE RECORDS SUMMARY | 2024-03-27 15:09 | XMS_ITS | Encounter Summary ---
Author Organization [place] [address] Care Team Providers Care Cigarette Roller Name Role Phone Mann Irene MD Primary Care Provider [phone] Reason for Visit * Mammography (Routine) - Closed Specialty Diagnoses / Procedures Referred By Ramona t Referred To Contact Radiology Diagnoses Other screening mammogram Procedures MM MAMMO DIGITAL SCREENING W CAD Mann Sevilla MD [address] [place] [address] Phone: tel: fax: Referral ID Status Reason Start Date Expiration Date Visits Re quested Visits Authorized [id number] Closed 09/26/2013 03/25/2014 1 1 Encounter Details Date Type Department Care Team (Latest Contact Info) Description 10/07/2013 11:50 AM EDT - 10/07/2013 12:18 PM EDT Hospital Encounter [facility] [place] [address] Mann Irene MD [address] [place] [phone] Other screening mammogram Discharge Disposition: Home or Self Care Social [...] Office Visit [facility] [address] [place] [id number] Gilda Francis PA [address] [place] [address] documented as of this encounter Procedures Procedure Name Priority Date/Time Associated Diagnosis Comments MM MAMMO DIGITAL SCREENING W CAD BILAT Routine 10/07/2013 1:12 PM EDT Other screening mammogram documented in this encounter Results * MM MAMMO DIGITAL SCREENING W CAD BILAT (10/07/2013 1:12 PM EDT) Anatomical Region Laterality Modality Breast Bilateral Mammography 10/10/2013 8:38 AM EDT Impressions 10/11/2013 9:06 AM EDT : Negative ??([id number]) ~ RECOMMENDATION: Routine screening mammogram in 1 [...] distortion in either breast. ~ Procedure Note Carl Tomlinson MD - 10/11/2013 Procedure:MM MAMMO DIGITAL [...] architecturaldistortion in either breast. ~ IMPRESSION: Negative ([id number]) ~ RECOMMENDATION: Routine screening mammogram in 1 [...] a Radiologist and CAD. Mann Irene MD IMG MAMMOGRAPHY ORDERABLES Fin al Result documented in this encounter Visit Diagnoses Diagnosis Other screening mammogram documented in this encounter Care Teams Cigarette Roller Relationship Specialty Start Date End Date Mann Irene MD [address] [place] [phone] PCP - General Internal Medicine 08/23/12 07/13/22 documented as of this encounter
--- OUTSIDE RECORDS SUMMARY | 2024-03-27 15:09 | XMS_ITS | Encounter Summary ---
Author Organization [place] [address] Care Team Providers Care Steam Shovel Operator Name Role Phone Mann Irene MD Primary Care Provider [phone] Reason for Visit * Reason Comments Urinary Tract Infection burning with uri nation since last pm Encounter Details Date Type Department Care Team (Late st Contact Info) Description 12/19/2013 12:45 PM EDT Office Visit [facility] [place] [facility] [place] [address] Mann Irene MD [address] [place] [phone] Dysuria (Primary Dx); UTI (lower urinary tract infection); Leg pain, central, right Social History Tobacco Use Types Packs/Day Years [...] Sign Reading Time Taken Comments Blood Pressure 124/74 12/19/2013 12:53 PM EDT Pulse 76 12/19/2013 12:53 PM EDT Temperature 36.8 ??C (98.2 ??F) 12/19/2013 12:53 PM E DT Respiratory Rate 16 12/19/2013 12:53 PM EDT Oxygen Saturation 98% 12/19/2013 12:53 PM EDT Inhaled Oxygen Concentration - - Weight 78.9 kg (174 lb) 12/19/2013 12:53 PM EDT Height 160 cm (5' 3 ) 12/19/2013 12:53 PM EDT Body Mass Index 30.82 12/19/2013 12:53 PM EDT documented in this encounter Ordered Prescriptions Prescription Sig Dispense Quantity Refills Last Filled Start Date End Date sulfamethoxazole-t rimethoprim (SULFAMETHOXAZOLE- TRIMETHOPRIM) 800-160 mg per tabletIndications: UTI (lower urinary tract infection) Take 1 tablet by mouth 2 times daily for 7 days. 14 tablet 0 12/19/2013 12/26/2013 atorvastatin (LIPITOR) 10 mg tablet Take 1 tablet by mouth daily. 30 tablet 11 12/19/2013 04/28/2014 documented in this encounter Progress Notes * Mann Irene MD - 12/19/2013 12:55 PM EDT Stella Hylton is a 68 y.o. female Chief Complaint Patient presents with ??? Urinary Tract Infection burning with urination since last pm August/September fell at work - hit both knees on skid. Not sure if that is what precipitated this problem. Working 12-14 hours a day. Hurts from hip to knee. Immediately hurts to put weight on it. Eases up a little bit after walking for a while. Becoming more severe. Almost does not hurt at all when resting. Urine problems started yesterday. BP 124/74 Pulse 76 Temp(Src) 98.2 ??F (36.8 ??C) (Oral) Resp 16 Ht 5' 3 (1.6 m) Wt 174 lb (78.926 kg) BMI 30.83 kg/m2 SpO2 98% Health Maintenance Health Maintenance [...] Tab bymouth daily. 30 Tab 5 ??? sulfamethoxazole-trimethoprim (SULFAMETHOXAZOLE-TRIMETHOPRIM) 800-160 mg per tablet Take 1 tablet by mouth 2 times daily for 7 days. 14 tablet 0 No current facility-administered medications for this visit. Surgery History Past Surgical History Procedure Laterality Date ??? Hysterectomy ??? Hemorrhoid surgery ??? Lumbar disc surgery 11/03/2012 Surgeon: Elza Bautista MD; Location: [facility] OR; Service: Social history History Social [...] alert and oriented x 3, pleasant, cooperative. Walking with limp. Pain localized to right femur area. No obvious masses/lesions. Vitals are as noted. Neck supple and [...] Diagnoses and associated orders for this visit: Dysuria - Urine Culture - Clinic Collect; Future UTI (lower urinary tract infection) - sulfamethoxazole-trimethoprim (SULFAMETHOXAZOLE-TRIMETHOPRIM) 800-160 mg per tablet; Take 1 tablet by mouth 2 times daily for 7 days. Leg pain, central, right Other Orders - atorvastatin (LIPITOR) 10 mg tablet; Take 1 tablet by mouth daily. agree with proceeding with MRI to evaluate cause of right leg pain. AVS given to patient and discussed. documented in this encounter Plan of Treatment Upcoming Encounters Date Type Department Care Team (Late st Contact Info) Description 05/16/2024 9:30 AM EST Office Visit [facility] [address] [place] [address] Gilda Francis PA [address] [place] [address] documented as of this encounter Results * URINE CULTURE (12/19/2013 1:07 PM EDT) Final >100,000 cfu/ml Escherichia coli [facility] Organism Escherichia coli [facility] Urine specimen (specimen) URINE SPECIMEN [...] MICROBIOLOGY - GENERAL ORDERAB LES Final Result [facility] [address] [place] [address] documented in this encounter Visit Diagnoses Diagnosis Dysuria- Primary UTI (lower urinary tract infection) Urinary tract infection, site not specified Leg pain, central, right documented in this encounter Discontinued Medications Medication Sig Discontinue Reason Start Date End Da te atorvastatin (LIPITOR) 10 mg tablet TAKE 1 TABLET BY MOUTH ONCE DAILY Reorder 12/17/2013 12/19/2013 documented as of this encounter Care Teams Steam Shovel Operator Relationship Specialty Start Date End Date Mann Irene MD [address] [place] [phone] PCP - General Internal Medicine 08/23/12 07/13/22 documented as of this encounter
--- OUTSIDE RECORDS SUMMARY | 2024-03-27 15:09 | XMS_ITS | Encounter Summary ---
Author Organization [place] [address] Care Team Providers Care Termination Clerk Name Role Phone Mann Irene MD Primary Care Provider [phone] Reason for Visit * Auth/Cert/Inpt - Closed Specialty Diagnoses / Procedures Referred By Contac t Referred To Contact Diagnoses Spinal stenosis, lumbar region, without neurogenic claudication Spinal stenosis, other than cervical, Lumbar region, without neurogenic claudi Procedures LUMBAR LAMINECTOMY L4,5 (MIDAS,MICRO,ATHROMBIC) Referral ID Status Reason Start Date Expiration Date Visits Re quested Visits Authorized [id number] Closed 1 1 Encounter Details Date Type Department Care Team (Late st Contact Info) Description 11/03/2012 12:00 PM EDT - 11/03/2012 1:58 PM EDT Surgery EDG PERIOP [facility] [place] [address] Elza Bautista MD [address] [place] [address] LUMBAR LAMINECTOMY/DISCECTOMY (COVERS FACETECTOMY) Surgery Details Date/Time Status Location OR Service Patient Class Case Class Case Type Trauma Case? 11/03/2012 12:00 PM Posted EDG MAIN OR EDG Room 08 Neurosurgery Same Day Surgery N/A Panel 1 Procedure LRB Anes Op Region Wound Class Comments LUMBAR LAMINECTOMY/DISCECTOMY (COVERS FACETECTOMY) N/A General Spine Lumbar Clean LUMBAR LAMINECTOMY L4-5 Surgeon Surgeon Role Service Panel Elza Bautista MD Primary Neurosurgery 1 Special Needs MULU CPT; 71030/30286 documented in this encounter Social History Tobacco [...] Sign Reading Time Taken Comments Blood Pressure 113/75 11/03/2012 3:10 PM EDT Pulse 96 11/03/2012 3:10 PM EDT Temperature 36.4 ??C (97.5 ??F) 11/03/2012 3:10 PM ED T Respiratory Rate 16 11/03/2012 3:10 PM EDT Oxygen Saturation 92% 11/03/2012 3:10 PM EDT Inhaled Oxygen Concentration - - Weight - - Height - - Body Mass Index - - documented in this encounter Discharge Instructions * Discharge Instructions* Traci Guardado RN - 11/03/2012 2:31 PM EDT LUMBAR SPINAL SURGERY NON-FUSION DISCHARGE INSTRUCTIONS These general guidelines will help in your recovery from surgery. Follow your surgeon???s specific instructions when given. ACTIVITY ?? Walking is encouraged, but should be the only physical exercise attempted until your follow-up appointment. Gradually increase your walking sessions daily. Walking outdoors, if weather permits, orat a shopping mall, is encouraged. Walking up and down steps is allowed; however, limit your trips and use a handrail. RESTRICTIONS ?? Housework and housecleaning are NOT permitted. This includes using a vacuum, ironing, loading and unloading the rug washer, washer or dryer. ?? No lifting anything greater than 10 pounds (including children). ?? Driving is generally not permitted until you are seen back in the office, 7- 14 days after surgery. Riding in a car is permitted but avoid long trips and stop frequently to get out of the car to walk. ?? There are no dietary restrictions. ?? Sexual activity is generally discouraged for the first 10-14 days after surgery. BATHING/INCISION CARE ?? Wash your hands with soap and water before and after touching your wound or dressing. ?? Do not shower or get your dressing wet for the first 3 days. Then you may remove your dressing and shower as needed leave steri-strips in place. Pat your incision dry, there is no need to recover it or place anything on it. ?? After the dressing is removed check your incision daily. Please call the office if your incisionbegins to separate or show signs of infection (redness, increased swelling, pain or drainage (fluid) seeping from your incision). DISCOMFORT ?? If you regularly take pain medication to maintain comfort, be aware that constipation may becomea problem for you. To prevent this, use prune juice and/or bran cereals liberally. You may need to use a laxative such as Dulcolax, Senokot or Milk of Magnesia, etc. which may be purchased without a prescription. FOLLOW-UP CARE ?? Call the [facility] appointment desk shortly after you are discharged from the hospital if you do not have a follow-up appointment. Sutures/amadeo are generally removed 10-14 days after surgery. Call [phone] to schedule your appointment. You may be drowsy or light-headed after receiving anesthesia or sedation. A responsible adult 18 or older needs to take you home and stay with you for [address], operate any machinery, drink alcohol, make any legal or important decisions for [address] taking narcotics/pain medicine. CALL SURGEON FOR: Unrelieved nausea or pain, rash,hives or difficulty breathing ( if last 3 severe go to emergency room), blood soaked dressing (some oozing is normal). Take your temperature for next 5 days 2x day, if run temperature of 101 degrees call your surgeon. When you get home drink something first, if that settles ok , you can have something light. We don't recommend anything fried,spicy or greasy for first meal or two. If nauseated from ride home, lay down, sleep and when you wake up, start over with clear liquids. Go by any instructions given by your surgeon. Contact your surgeon for any problems related to your procedure, if symptoms persist or worsen. Go to the emergency room if pshycian is unavailable. [facility] Medication for Treatment of Post-Operative Pain You were prescribed one of the narcotic pain medications listed below. PERCOCET: (Oxycodone with Tylenol) / VICODIN: (Hydrocodone with Tylenol). These medications are used to treat moderate to severe pain. Take as prescribed for pain. You may take this drug with or without food (taking with food can lessen stomach upset) Do not drive while taking this drug. Do not take Tylenol (Acetaminophen), while taking either of these medications. Do not take this drug, if you are allergic to Tylenol. Do not drink alcohol, while taking this drug. If , take this drug after you have nursed your baby. These common side effects may occur: Nausea, vomiting or heart burn Constipation (Drink 6 to 8 full glasses of water daily to help prevent constipation, unless contraindicated by your doctor) Use a stool softener, while taking your prescribed pain medication, to help prevent constipation. Eat more fruits and vegetables when you take your medicine. This may help you go to the bathroom. Dizziness, lightheadedness, nervousness, or drowsiness Let your caregiver know if you feel any of the following: Slow or irregular heart beat Slow or irregular breathing Mental or mood changes Change in amount of urine you make You received 1000mg iv tylenol / 800 mg ibuprofen at , do NOT take any tylenol products til after documented in this encounter Medications at Time of Discharge cyclobenzaprine (FLEXERIL) 10 mg tablet Take 1 Tab by mouth every 8 hours as needed for Muscle spasms for 30 days. 90 Tab 1 11/03/2012 12/03/2012 documented as of this encounter Ordered Prescriptions Prescription Sig Dispense Quantity Refills Last Filled Start Date End Date oxyCODONE-acetamin ophen (PERCOCET) 5-325 mg per tablet Take 1 Tab by mouth every 4 hours as needed for Pain for 30 days. 90 Tab 0 11/03/2012 12/03/2012 cyclobenzaprine (FLEXERIL) 10 mg tablet Take 1 Tab by mouth every 8 hours as needed for Muscle spasms for 30 days. 90 Tab 1 11/03/2012 12/03/2012 ibuprofen (ADVIL;MOTRIN) 800 mg Take 1 Tab by mouth every 8 hours as needed for Pain. 90 Tab 2 11/03/2012 09/26/2013 documented in this encounter Discharge Disposition Disposition Code Departure Means Destination Home or Self Fdc documented in this encounter H&P Notes * Chanel Jade MD - 11/03/2012 10:18 AM EDT Surgery H&P Chief complaint: Spinal stenosis Lumbar region HPI: This is a 67 y.o. year old female patient who presents today for surgical treatment of the above problem. Pt c/o LBP that radiates down her LLE>RLE. She denies any numbness of LE but does admit toocc swelling of LE. History & Physical Past Medical History Diagnosis Date ??? Arthritis ??? Motion sickness Dyslipidemia Obesity Past Surgical History Procedure Laterality Date ??? Hysterectomy ??? Hemorrhoid surgery No current facility-administered medications on file prior to encounter. Current Outpatient Prescriptions on File Prior to Encounter Medication Sig Dispense Refill ??? topiramate (TOPAMAX) 50 mg tablet Take 1 Tab by mouth 2 times daily. 60 Tab 2 (Pt has not started Topamax) Osteobioflex No Known Allergies History Social History ??? Marital Status: Spouse Name: N/A Number of Children: N/A ??? Years of Education: N/A Occupational History ??? Not on file. Social History Main Topics ??? Smoking status: Former Smoker -- 25 years Types: Cigarettes ??? Smokeless tobacco: Never Used Comment: quit 5 yrs ago ??? Alcohol Use: No ??? Drug Use: No ??? Sexually Active: Not on file Other Topics Concern ??? Not on file Social History Narrative ??? No narrative on file No family history on file. Review of Systems As above and all other relevant systems are negative. Filed Vitals: 11/03/12 0944 BP: 133/90 Pulse: 80 Temp: 96.7 ??F (35.9 ??C) Resp: 20 Physical Exam General: No acute distress. Neuro: alert. oriented Eyes: pupils equal. Extra-ocular muscles intact Mouth: Oral mucosa moist. Nose: midline. Good air movement Neck: supple. Chest: symmetric excursion with respiration. Respirations unlabored and regular. CTA B Heart: Regular rate and rhythm w/o R/G/M, no bruits Abdomen: soft, non-tender, non-distended, +bowel sounds, obese Extremities: no C/C/E, mild varicose veins Relevant Labs and Imaging reviewed. Lab Results Component Value Date WBC 9.3 09/13/2012 HGB 14.4 09/13/2012 HCT 43.6 09/13/2012 PLT 308 09/13/2012 CHOLESTEROL 228* 09/13/2012 TRIG 193* 09/13/2012 HDL 39* 09/13/2012 LDLCALC 150* 09/13/2012 ALT 21 09/13/2012 AST 25 09/13/2012 NA 147* 09/13/2012 K 4.6 09/13/2012 CL 107 09/13/2012 CREATININE 0.6 09/13/2012 BUN 11 09/13/2012 CO2 27 09/13/2012 GLU 108* 09/13/2012 Assessment: Spinal stenosis Lumbar region Plan: Procedure(s): LUMBAR LAMINECTOMY L4-5 (MIDAS/MICRO/ATHROMBIC) per Elza Bautista MD * Unknown, Unknown - 11/02/2012 9:02 AM EDT documented in this encounter Procedure Notes * Unknown, Unknown - 11/05/2012 9:01 AM EDTAssociated Order(s): SCANNED PRE/POST PROCEDURES * Unknown, Unknown - 11/05/2012 9:01 AM EDTAssociated Order(s): SCANNED ANESTHESIA FORMS * Elza Bautista MD - 11/03/2012 1:36 PM EDT [facility]/[place], [place] NAME: STELLA GOLDSTEIN [facility]#: [id number] LOCATION/ROOM: ED PACU ED FACILITY: [facility] DICTATOR: Elza Bautista OPERATIVE REPORT DATE OF OPERATION: 11/03/2012 PREOPERATIVE DIAGNOSES: Lumbar stenosis now with neurogenic claudication. POSTOPERATIVE DIAGNOSES: Lumbar stenosis now with neurogenic claudication. PROCEDURES PERFORMED: Lumbar laminectomy L4, decompressing the L4-L5 disk space, bilateral neural foraminotomies. SURGEON: Elza Bautista M.D. DESIGN ENGINEER AGRICULTURAL EQUIPMENT: Lisandra. ANESTHESIA: General. ESTIMATED BLOOD LOSS: 25 mL. INDICATIONS: The patient is a 67-year-old woman with back and bilateral leg pain refractory to conservative treatment who wished to undergo surgical treatment. OPERATIVE PROCEDURE: Prior to surgery, consent was reviewed with the patient. The surgical site was marked. The patient was taken to the operating room, intubated by the anesthesia service and preoperative antibiotics were given. She was placed on the Awias frame in the prone position. All pressure points were padded in the usual fashion. The L4-L5 disk space was localized with fluoroscopy and the vertical midline incision was marked. The patient was prepped and draped. Local anesthetic was injected in the skin for pain control. A vertical midline incision was made and carried down through the fascia. Self-retaining retractors were placed. Subperiosteal dissection exposing the lamina and spinous process of L4 as well as the superior most portion of L5 out to the medial facet joint was performed. Deeper retractors were placed. The spinous processes and dorsal lamina were removed with Leksell rongeur. High speed air drill was then used to thin the remaining lamina connected by the ligament and then more superiorly as well, both lateral bony recess stenosis of the lateral recesses were then drilled out using the drill while protected by the ligament. The central ligament was then removed using Kerrison punches, exposing the thecal sac. Additional thickened ligament in both lateral recesses was removed as well. Following this, aggressive decompressions of both exiting L4 nerve roots were performed. Upon completion of this procedure, the thecal sac was well decompressed and the exiting nerve roots appeared decompressed as well. There were no rents or tears in the dura, no CSF leak was seen. The wound was irrigated with antibiotic saline. Hemostasis was obtained. Retractors were removed. The incision was closed in the usual layered fashion. Steri-Strips and sterile dressing was placed. The patient was returned to the supine position, extubated by the anesthesia service and transferred to the PACU. I was present for all critical portions of the procedure and readily available for the remainder. Elza Bautista MD By: conrad Job ID: [id number] Doc ID: [id number] CC: * Elza Bautista MD - 11/03/2012 1:32 PM EDT [facility] OPERATIVE/PROCEDURE NOTE WeslyStella harris Titi November 03, 2012 PRE-OP DIAGNOSIS: Spinal stenosis, other than cervical, Lumbar region, without neurogenic claudi POST-OP DIAGNOSIS: Spinal stenosis, other than cervical, Lumbar region, without neurogenic claudi PROCEDURE(S): Procedure(s): LUMBAR LAMINECTOMY L4-5 SURGEON(S): Surgeon(s) and Role: * Elza Bautista MD - Primary DESIGN ENGINEER AGRICULTURAL EQUIPMENT(S): Raegan Fry ARNP- Display Trimmer ANESTHESIA: General SPECIMENS: * No specimens in log * ESTIMATED BLOOD LOSS: 25 ml DISPOSITION:PACU documented in this encounter Nursing Notes * Esthela Gallo RN - 11/03/2012 11:40 AM EDT Pt states no numbness/tingling prior to surgery. States has leg pain, more so left leg but occasionally on the right. * Pranay Hastings RN - 11/03/2012 11:19 AM EDT Report to Emy Louis RN - needs EKG done. * Pranay Hastings RN - 11/03/2012 11:16 AM EDT Ancef 1 gm IVPB at bedside - to OR. * Gilda Mauro RN - 11/02/2012 9:20 AM EDT Pre op order in EPIC. * Marisel Coe - 11/02/2012 9:12 AM EDT Scanned office note into epic 10/18 documented in this encounter Plan of Treatment Upcoming Encounters Date Type Department Care Team (Late st Contact Info) Description 05/16/2024 9:30 AM EST Office Visit [facility] [address] [place] [address] Gilda Francis PA [address] [place] [address] documented as of this encounter Procedures Procedure Name Priority Date/Time Associated Diagnosis Comments SCANNED PRE/POST PROCEDURES 11/05/2012 9:01 AM EDT SCANNED ANESTHESIA FORMS 11/05/2012 9:01 AM EDT SCANNED RHYTHM STRIPS 11/05/2012 9:01 AM EDT XR LUMBAR SPINE SINGLE VW SIVA 11/03/2012 1:12 PM EDT FL < 1 HOUR SIVA 11/03/2012 1:10 PM EDT LUMBAR LAMINECTOMY/DISCEC DAVID (COVERS FACETECTOMY) 11/03/2012 11:53 AM EDT Spinal stenosis, other than cervical, Lumbar region, without neurogenic claudi Special Needs MULU CPT; 05389/02266 EK EKG 12 LEAD STAT 11/03/2012 11:23 AM EDT documented in this encounter Results * SCANNED PRE/POST PROCEDURES (11/05/2012 9:01 AM [...] LES Final Result * SCANNED RHYTHM STRIPS (11/05/2012 9:01 AM EDT) Anatomical Region Laterality Modality Other 11/05/2012 9:01 AM EDT us Unknown Unknown IMG ECG ORDERABLES Final Result * XR LUMBAR SPINE SINGLE [...] DIAGNOSTIC IMAGING ORDERAB LES Final Result * FL < 1 HOUR (11/03/2012 1:10 PM EDT) Anatomical Region Laterality Modality Radio Fluoroscop y Narrative 11/03/2012 1:11 PM EDT Fluoroscopy was performed. The radiologist was not in attendance. No permanent images were obtained. This dictation is being made for record keeping purposes. Procedure Note Jonathan Ge, RT - 11/03/2012 Fluoroscopy was performed. The radiologist was not in attendance. Nopermanent images were obtained. This dictation is being made for recordkeeping purposes. us Elza Bautista MD IMG FLUOROSCOPY ORDERABLES Fin al Result * EK EKG 12 LEAD (11/03/2012 11:23 AM EDT) Anatomical Region Laterality Modality Other 11/03/2012 11:2 3 AM EDT us Kamla Mckeon MD IMG ECG ORDERABLES Final Res ult documented in this encounter Visit Diagnoses Diagnosis Spinal stenosis, lumbar region, without neurogenic claudication documented in this encounter Administered Medications Inactive Administered Medications - up to 1 most recent administrations Medication Order MAR Action Action Date Dose Rate Site acetaminophen (OFIRMEV) infusion ONCE PRN, 1 dose, Starting on Thu11/03/12 at 1258, Until Thu11/03/12 at 1258, Administer over 15 Minutes, Maximum dose of acetaminophen is 4000 mg from all sources in 24 hours., Intra-op Given 11/03/2012 12:58 PM EDT 1,000 mg bupivacaine-EPINEPHrine 0.5 %-1:200,000 injection ONCE PRN, 1 dose, Starting on Thu11/03/12 at 1243, Until Thu11/03/12 at 1243, Pain, Intra-op Given 11/03/2012 12:43 PM EDT 30 mL ceFAZolin (ANCEF) IVPB 1 g 1 g, Intravenous, ONCE PREPROCEDURE, 1 dose, On Thu11/03/12 at 0600, Administer over 30 Minutes, Pre-op (Antibiotic) IV Started 11/03/2012 11:53 AM EDT 1 g 100 mL/hr famotidine (PEPCID) 20 mg/2 mL injection 20 mg 20 mg, Intravenous, PREPROCEDURE, 1 dose, Starting on Thu11/02/12 at 1033, Until Thu11/03/12 at 1113, pre-op, Slow IV push (greater than 2 minutes). To be given in SDS/Pre-op Hold Use 10 mL normal saline to dilute and administer famotidine IV, Pre-op (Holding/SDS Meds) Given 11/03/2012 11:13 AM EDT 20 mg famotidine (PEPCID) 20 mg/2 mL injection 1 dose, Starting on Thu11/03/12 at 1013, Until Thu11/03/12 at 1113, MAHESH, PRANAY: cabinet override Use 10 mL normal saline to dilute and administer famotidine IV FLOSEAL (HEMOSTATIC MATRIX) 5 mL KIT ONCE PRN, 1 dose, Starting on Thu11/03/12 at 1243, Until Thu11/03/12 at 1243, Intra-op Given 11/03/2012 12:43 PM EDT 5 mL lactated ringers infusion Intravenous, at 100 mL/hr, PREPROCEDURE, 1 dose, Starting on Thu11/02/12 at 1033, Until Thu11/03/12 at 1535, To be given in SDS/Pre-op Hold, Pre-op (Holding/SDS Meds) New Bag 11/03/2012 10:47 AM EDT 100 mL/hr oxyCODONE (ROXICODONE) immediate release tablet 5 mg 5 mg, Oral, EVERY 4 HOURS PRN, Starting on Thu11/03/12 at 1350, Until Thu11/03/12 at 1951, Mild Pain (Pain Score 1-3), Moderate Pain (Pain Score 4-7), Give if patient has received IV acetaminophen (OFIRMEV) , PACU Given 11/03/2012 3:08 PM EDT 5 mg sodium chloride 0.9 % 500 mL with neomycin sulfate 1 g, bacitracin 5,000 Units IRRIGATION ONCE PRN, 1 dose, Starting on Thu11/03/12 at 1243, Until Thu11/03/12 at 1243, Intra-op Given 11/03/2012 12:43 PM EDT documented in this encounter Active and Recently Administered Medications Times are shown in EDT. Scheduled Medication Order 11/01/2012 11/02/2012 11/03/2012 ceFAZolin (ANCEF) IVPB 1 g (COMPLETED) 1 g, Intravenous, ONCE PREPROCEDURE, 1 dose, On Thu11/03/12 at 0600, Administer over 30 Minutes, Pre-op (Antibiotic) 1153 (IV Started - P rovider: Chanel Acevedo RN - Comment: GIVEN PER ANES)1208 (Due: IV STOP - Provider: Chanel Acevedo RN) PRN Medication Order 11/01/2012 11/02/2012 11/03/2012 acetaminophen (OFIRMEV) infusion (CANCELED) ONCE PRN, 1 dose, Starting on Thu11/03/12 at 1258, Until Thu11/03/12 at 1258, Administer over 15 Minutes, Maximum dose of acetaminophen is 4000 mg from all sources in 24 hours., Intra-op 1258 (Given - Provid er: Dontrell Saleh CRNA) bupivacaine-EPINEPHrine 0.5 %-1:200,000 injection (CANCELED) ONCE PRN, 1 dose, Starting on Thu11/03/12 at 1243, Until Thu11/03/12 at 1243, Pain, Intra-op 1243 (Given - Provid er: Elza Bautista MD) famotidine (PEPCID) 20 mg/2 mL injection 20 mg (COMPLETED) 20 mg, Intravenous, PREPROCEDURE, 1 dose, Starting on Thu11/02/12 at 1033, Until Thu11/03/12 at 1113, pre-op, Slow IV push (greater than 2 minutes). To be given in SDS/Pre-op Hold Use 10 mL normal saline to dilute and administer famotidine IV, Pre-op (Holding/SDS Meds) 1113 (Given - Provid er: Pranay Hastings RN) FLOSEAL (HEMOSTATIC MATRIX) 5 mL KIT (CANCELED) ONCE PRN, 1 dose, Starting on Thu11/03/12 at 1243, Until Thu11/03/12 at 1243, Intra-op 1243 (Given - Provid er: Elza Bautista MD) lactated ringers infusion (COMPLETED) Intravenous, at 100 mL/hr, PREPROCEDURE, 1 dose, Starting on Thu11/02/12 at 1033, Until Thu11/03/12 at 1535, To be given in SDS/Pre-op Hold, Pre-op (Holding/SDS Meds) 1047 (New Bag - Prov ider: Pranay Hastings, UMA)1535 (Stopped - Provider: Traci Guardado RN) oxyCODONE (ROXICODONE) immediate release tablet 5 mg (CANCELED) 5 mg, Oral, EVERY 4 HOURS PRN, Starting on Thu11/03/12 at 1350, Until Thu11/03/12 at 1951, Mild Pain (Pain Score 1-3), Moderate Pain (Pain Score 4-7), Give if patient has received IV acetaminophen (OFIRMEV) , PACU 1508 (Given - Provid er: Traci Guardado RN) sodium chloride 0.9 % 500 mL with neomycin sulfate 1 g, bacitracin 5,000 Units IRRIGATION (CANCELED) ONCE PRN, 1 dose, Starting on Thu11/03/12 at 1243, Until Thu11/03/12 at 1243, Intra-op 1243 (Given - Provid er: Elza Bautista MD) documented in this encounter Orders Medications Ordered That Parish ht Not Have Been Administered Count Last Ordered Date First Ordered Date acetaminophen (OFIRMEV) infusion 1,000 mg 1 11/03/2012 ceFAZolin (ANCEF) 1 gram/50 mL IVPB 1 11/03 diphenhydrAMINE (BENADRYL) i njection 25-50 mg 1 11/03/2012 fentaNYL (SUBLIMAZE) 50 mcg/ mL injection 25 mcg 1 11/03/2012 HYDROmorphone (DILAUDID) 1 m g/mL injection 0.25 mg 1 11/03/2012 meperidine (DEMEROL) 25 mg/m L injection (PF) 12.5 mg 1 11/03/2012 ondansetron (ZOFRAN) 4 mg/2 mL injection 4 mg 1 11/03/2012 ondansetron (ZOFRAN-ODT) dis integrating tablet 8 mg 1 11/03/2012 oxyCODONE-acetaminophen (PER COCET) 5-325 mg per tablet 1 Tab 1 11/03/2012 Nursing Count Last Ordered Date First Orde red Date NURSING COMMUNICATION 2 11/03/2012 RELEASE FROM ANESTHESIA CARE 1 11/03/2012 VERIFY INFORMED CONSENT 1 11/03/2012 Discharge Count Last Ordered Date First Orde red Date DISCHARGE PATIENT 1 11/03/2012 documented in this encounter Care Teams Termination Clerk Relationship Specialty Start Date End Date Mann Irene MD [address] [place] [phone] PCP - General Internal Medicine 08/23/12 07/13/22 documented as of this encounter
--- OUTSIDE RECORDS SUMMARY | 2024-03-27 15:09 | XMS_ITS | Encounter Summary ---
Author [place] [address] Care Team Providers Care Casino Beverage Server Name Role Phone Mann Irene MD Primary Care Provider [phone] Encounter Details Date Type Department Care Team (Latest Contact Info) Description 04/14/2013 9:10 AM EST - 04/14/2013 11:59 PM EST Hospital Encounter [facility] [address] [facility]. [place] [id number] Hyperlipidemia (Primary Dx) Discharge Disposition: Home or [...] documented in this encounter Progress Notes * Julianna Franklin RMA - 04/20/2013 4:01 PM EST 2nd attempt 04/20/13 @4pm VM full * Julianna Franklin RMA - 04/18/2013 2:13 PM EST Attempted to call pt, V/M full documented in this encounter Plan of Treatment Upcoming Encounters Date Type Department Care Team (Late st Contact Info) Description 05/16/2024 9:30 AM EST Office Visit [facility] [address] [place] [address] Gilda Francis PA [address] [place] [address] Scheduled Orders Name Type Priority Associated Diagnoses Orde r Schedule OP VENIPUNCTURE CHARGE Lab Timed Hyperlipidemia One Time for 1 Occurrences starting 04/14/2013 until 04/14/2013 documented as of this encounter Procedures Procedure Name Priority Date/Time Associated Diagnosis Comments LDL, CALCULATED Routine 04/14/2013 9:17 AM EST LIPID PANEL REFLEX Routine 04/14/2013 9: 17 AM EST Hyperlipidemia DIFFERENTIAL Routine 04/14/2013 9:17 AM EST CBC WITH DIFF Routine 04/14/2013 9:17 AM EST Hyperlipidemia COMPREHENSIVE METABOLIC PANEL Routine 04/14/2013 9:17 AM EST Hyperlipidemia documented in this encounter Results * (ABNORMAL) LDL, CALCULATED (04/14/2013 9:17 AM EST) LDL Calculated 176(H) <=100 mg/dL [facility] Comment: ??< 100 ?Optimal 100 - 129 ? Near or above optimal 130 - 159 ? Borderline High 160 - 189 ? High >= 190 ?Very High Blood specimen (specimen) 04/14/2013 9:17 AM EST 04/14/2013 3:54 PM EST us Mann rIene MD CHEMISTRY ORDERABLES Final Res ult Performing Organization Address [facility] de Phone Number [facility] [address] [place] [address] * DIFFERENTIAL (04/14/2013 9:17 AM EST) Neut Percent 47.3 % [facility] Lymph Percent 40.8 % [facility] [place] Percent 4.2 % [facility] Eos Percent 5.6 % [facility] Baso Percent 2.1 % [facility] Neut# 3.9 1.8 - 7.7 x10(3)/mcL [facility] Lymph# 3.3 0.6 - 4.8 x10(3)/mcL [facility] [place]# 0.3 0.0 - 1.3 x10(3)/mcL [facility] Eos# 0.5 0.0 - 0.5 x10(3)/[facility] SE LAB Baso# 0.2 0.0 - 0.2 x10(3)/[facility] Blood specimen (specimen) 04/14/2013 9:17 AM EST 04/14/2013 9:17 AM EST us Mann Irene MD HEMATOLOGY ORDERABLES Final Re sult Performing Organization Address [facility] de Phone Number [facility] [address] [place] [address] * (ABNORMAL) LIPID PANEL REFLEX (04/14/2013 9:17 AM EST) Cholesterol 236(H) <=200 mg/dL [facility] Comment: < 200 ?Desirable 200 - 239 ? Borderline High >= 240 ?High Triglyceride 90 <=150 mg/dL [facility] Comment: < 150 ? Normal 150 - 199 ?Borderline High 200 - 499 ?High ??>= 500 ? Very High HDL 42 >=40 mg/dL [facility] Comment: ?? > 60 ?Optimal 40 - 60 ?Acceptable ?? < 40 ?Low Blood specimen (specimen) UPPER LIMB STRUCTURE / Unknown 04/14/2013 9:17 AM EST 04/14/2013 3:54 PM EST us Mann Irene MD CHEMISTRY ORDERABLES Final Res ult [facility] [address] [place] [address] * (ABNORMAL) COMPREHENSIVE METABOLIC PANEL (04/14/2013 9:17 AM EST) Sodium 144(H) 135 - 143 mmol/L [facility] Potassium 4.5 3.5 - 5.0 mmol/L [facility] Chloride 106 98 - 108 mmol/L [facility] Total CO2 28 22 - 31 mmol/L [facility] Anion Gap 10 7 - 16 mmol/L [facility] Calcium 9.1 8.6 - 10.3 mg/dL [facility] Glucose Lvl 99 70 - 100 mg/dL [facility] BUN 14 7 - 19 mg/dL [facility] Creatinine 0.6 0.6 - 1.0 mg/dL [facility] Albumin 3.8 3.4 - 4.8 gm/dL [facility] Total Protein 7.4 6.0 - 8.2 gm/dL [facility] Bili Total 0.5 0.1 - 1.3 mg/dL [facility] AST 24 14 - 36 IU/L [facility] ALT 36 6 - 60 IU/L [facility] Alk Phos 109 41 - 119 IU/L [facility] GFR Afr Am >60 [facility] Comment: GFR is estimated using [...] Irene MD CHEMISTRY ORDERABLES Final Res ult [facility] [address] [place] [address] * CBC WITH AUTO DIFF (04/14/2013 9:17 AM EST) WBC 8.2 4.0 - 11.0 x10(3)/mcL [facility] RBC 4.66 3.80 - 5.10 x10(6)/mcL [facility] Hgb 13.6 12.0 - 15.6 gm/dL [facility] Hct 41.0 35.7 - 45.9 % [facility] MCV 88.1 82.5 - 99.8 fL [facility] MCH 29.1 27.0 - 34.3 pg [facility] MCHC 33.0 32.1 - 35.3 gm/dL [facility] RDW 14.2 11.5 - 15.0 % [facility] Platelet 327 144 - 423 x10(3)/mcL [facility] MPV 7.7 6.8 - 10.8 fL [facility] Blood specimen (specimen) UPPER LIMB STRUCTURE / Unknown 04/14/2013 9:17 AM EST 04/14/2013 9:17 AM EST us Mann Irene MD HEMATOLOGY ORDERABLES Final Re sult [facility] [address] [place] [address] documented in this encounter Visit Diagnoses Diagnosis Hyperlipidemia- Primary Other and unspecified hyperlipidemia documented in this encounter Care Teams Casino Beverage Server Relationship Specialty Start Date End Date Mann Irene MD [address] [place] [address] PCP - General Internal Medicine 08/23/12 07/13/22 documented as of this encounter
--- OUTSIDE RECORDS SUMMARY | 2024-03-27 15:09 | XMS_ITS | Encounter Summary ---
Author Organization [place] [address] Care Team Providers Care Child Care Associate Name Role Phone Mann Irene MD Primary Care Provider Reason for Visit * Reason Onset Date Comments Reschedule 10/24/2013 COLON Encounter Details Date Type Department Care Team (Late st Contact Info) Description 10/24/[address] [facility] [address] [facility] [address] [place] [address] Edil Mann MD [address] [place], [place] [id number] Reschedule (COLON) Social History Tobacco Use Types Packs/Day Years [...] encounter Miscellaneous Notes * Telephone Encounter - Kindra Wren MA - 12/12/2013 10:33 AM EDT R/S 01/24/14 * Telephone Encounter - Nerissa Dutta - 10/24/2013 12:42 PM EDT PT CALLING TO RESCHEDULE HER COLON. WE WENT OVER DATES THAT LISBETHRINHAN CAN COME BUT THE PT IS NEEDING A PM APPT AND PDW WAS ONLY AVAILABLE IN THE AM. SHE SAID SHE WILL DISCUSS WITH HER WEIGHMASTER AND CALLUS BACK AND TO CXL HER COLON FOR NOW, SO CXLD PER PT REQ documented in this encounter Plan of Treatment Upcoming Encounters Date Type Department Care Team (Late st Contact Info) Description 05/16/2024 9:30 AM EST Office Visit [facility] [address] [place] [address] Gilda Francis PA [address] [place] [address] documented as of this encounter Visit Diagnoses Not on filedocumented in this encounter Care Teams Child Care Associate Relationship Specialty Start Date End Date Mann Irene MD [address] [place] [address] PCP - General Internal Medicine 08/23/12 07/13/22 documented as of this encounter
--- OUTSIDE RECORDS SUMMARY | 2024-03-27 15:09 | XMS_ITS | Encounter Summary ---
Author Organization [place] [address] Care Team Providers Care Whip Sawyer Name Role Phone Mann Irene MD Primary Care Provider [phone] Reason for Visit * Reason Onset Date Comments Other 12/07/2012 Was given some c ream Thursday and is not helping seems worse please advise Encounter Details Date Type Department Care Team (Late st Contact Info) Description 12/07/2012 Telephone [facility] [address] [place] [address] Mann Irene MD [address] [place] [address] Other (Was given some cream Thursday and is not helping seems worse please advise) Social History Tobacco Use Types Packs/Day Years [...] Refills Last Filled Start Date End Date doxycycline (VIBRA-TABS) 100 mg tabletIndications:M alar rash Take 1 Tab by mouth 2 times daily for 10 days. 20 Tab 0 12/07/2012 12/17/2012 documented in this encounter Miscellaneous Notes * Telephone Encounter - Brittany Slaughter CCMA - 12/07/2012 11:03 AM EDT Spoke with pt * Telephone Encounter - Mann Irene MD - 12/07/2012 10:27 AM EDT Ok, Will place on oral medication as well. Doxycycline sent to pharmacy. documented in this encounter Plan of Treatment Upcoming Encounters Date Type Department Care Team (Late st Contact Info) Description 05/16/2024 9:30 AM EST Office Visit [facility] [address] [place] [address] Gilda Francis PA [address] [place] [address] documented as of this encounter Visit Diagnoses Diagnosis Malar rash- Primary Rash and other nonspecific skin eruption documented in this encounter Care Teams Whip Sawyer Relationship Specialty Start Date End Date Mann Irene MD [address] [place] [address] PCP - General Internal Medicine 08/23/12 07/13/22 documented as of this encounter
--- OUTSIDE RECORDS SUMMARY | 2024-03-27 15:09 | XMS_ITS | Encounter Summary ---
Author Organization [place] [address] Care Team Providers Care Blanket Inspector Name Role Phone Mann Irene MD Primary Care Provider [phone] Reason for Referral * Mammography (Routine) - Closed Specialty Diagnoses / Procedures Referred By Ramona mcdaniel Referred To Contact Radiology Diagnoses Other screening mammogram Procedures MM MAMMO DIGITAL SCREENING BILATERAL Mann Irene MD [address] [place] [address] Phone: tel: fax: Referral ID Status Reason Start Date Expiration Date Visits Re quested Visits Authorized [id number] Closed 03/18/2013 09/14/2013 1 1 Reason for Visit * Reason Comments Annual Exam ck-up Arthritis is having pain in luna nds, feet, and legs Encounter Details Date Type Department Care Team (Latest Contact Info) Description 03/18/2013 3:00 PM EST Office Visit [facility] [place] [address] Mann Irene MD [place] [facility] [place] [address] Osteoarthritis (Primary Dx); Other screening mammogram; Colon cancer screening Social History Tobacco Use Types Packs/Day Years Used Date Smoking Tobacco: Former Cigarettes Smokeless Tobacco: Never Tobacco Cessation:Counseling Given: Yes Comments:quit 5 yrs ago Alcohol Use Standard [...] Sign Reading Time Taken Comments Blood Pressure 132/82 03/18/2013 2:58 PM EST Pulse 104 03/18/2013 2:58 PM EST Temperature 36.8 ??C (98.2 ??F) 03/18/2013 2:58 PM ES T Respiratory Rate - - Oxygen Saturation 94% 03/18/2013 2:58 PM EST Inhaled Oxygen Concentration - - Weight 83 kg (183 lb) 03/18/2013 2:58 PM EST Height 162.6 cm (5' 4 ) 03/18/2013 2:58 PM EST Body Mass Index 31.41 03/18/2013 2:58 PM EST documented in this encounter Ordered Prescriptions Prescription Sig Dispense Quantity Refills Last Filled Start Date End Date diclofenac (VOLTAREN) 75 mg EC tabletIndications:O steoarthritis Take 1 Tab by mouth 2 times daily (with meals). 60 Tab 2 03/18/2013 06/19/2013 documented in this encounter Progress Notes * Mann Irene MD - 03/18/2013 3:16 PM EST Stella Hylton is a 67 y.o. female Chief Complaint Patient presents with ??? Annual Exam ck-up ??? Arthritis is having pain in hands, feet, and legs As above. Needs bloodwork but not fasting today. Has joint pain in hands/feet. Was on arthritis medication in the past, but has not taken it for quite a while due to lack of insurance. Has hemoccult cards to be checked. Wt Readings from Last 3 Encounters: 03/18/13 183 lb (83.008 kg) 12/03/12 200 lb (90.719 kg) 10/28/12 200 lb (90.719 kg) BP 132/82 Pulse 104 Temp(Src) 98.2 ??F (36.8 ??C) (Oral) Ht 5' 4 (1.626 m) Wt 183 lb (83.008 kg) BMI 31.4 kg/m2 SpO2 94% Health Maintenance Health Maintenance Topic Date Due ??? Breast Cancer Screening 1987 ??? Colon Cancer Screening Colonoscopy 09/19/1997 ??? Influenza Vaccine 01/09/2014 ??? Colon Cancer Screening Occult Blood 03/18/2014 ??? Pneumococcal Polysaccharide Vaccine Age 65 And Over Completed Problem List There is no problem list on file for this patient. Medications Current Outpatient Prescriptions Medication Sig Dispense Refill ??? UNKNOWN TO PATIENT For muscle spasms from Dr. Verdin from [facility] ??? HYDROcodone-acetaminophen (VICODIN ES) 7.5-750 mg per tablet Take 1 Tab by mouth every 6 hours as needed. ??? ibuprofen (ADVIL;MOTRIN) 800 mg Take 1 Tab by mouth every 8 hours as needed for Pain. 90 Tab 2 ??? diclofenac (VOLTAREN) 75 mg EC tablet Take 1 Tab by mouth 2 times daily (with meals). 60 Tab 2 No current facility-administered medications for this visit. Surgery History Past Surgical History Procedure Laterality Date ??? Hysterectomy ??? Hemorrhoid surgery ??? Lumbar disc surgery 11/03/2012 Surgeon: Elza Bautista MD; Location: [facility] MAIN OR; Service: Social history History Social History ??? Marital Status: Spouse Name: N/A Number of Children: N/A ??? Years of Education: N/A Social History Main Topics ??? Smoking status: Former Smoker -- 25 years Types: Cigarettes ??? Smokeless tobacco: Never Used Comment: quit 5 yrs ago ??? Alcohol Use: No ??? Drug Use: No ??? Sexually Active: None Other Topics Concern ??? None Social History Narrative ??? None Immunizations Immunization History Administered Date(s) Administered ??? Pneumococcal Polysaccharide 10/13/2012 ROS: No TIA's or unusual headaches, [...] noted. Stella was seen today for annual exam and arthritis. Diagnoses and associated orders for this visit: Osteoarthritis - diclofenac (VOLTAREN) 75 mg EC tablet; Take 1 Tab by mouth 2 times daily (with meals). Other screening mammogram - Mammography digital screening bilateral; Future Colon cancer screening - POCT Hemoccult 1-3 Cards Other Orders - Cancel: Influenza Virus Vaccine High Dose (>65 years of age) -39740 - UNKNOWN TO PATIENT; For muscle spasms from Dr. Verdin from [facility] Needs FLP, CMP, CBC. Hemoccult cards negative AVS given to patient and discussed. documented in this encounter Miscellaneous Notes * Patient Instructions - Mann Irene MD - 03/18/2013 4:35 PM EST You may be contacted by [...] AM EST Office Visit [facility] [address] [place] [address] Gilda Francis PA [address] [place] [address] Scheduled Orders Name Type Priority Associated Diagnoses Orde r Schedule MM MAMMO DIGITAL SCREENING BILATERAL Imaging Routine Other screening mammogram 1 Occurrences starting 03/18/2013 until 03/18/2015 documented as of this encounter Procedures Procedure Name Priority Date/Time Associated Diagnosis Comments POCT HEMOCCULT 1-3 CARDS Routine 03/18/2013 3:15 PM EST Colon cancer screening documented in this encounter Results * POCT HEMOCCULT 1-3 CARDS (03/18/2013 3:15 PM EST) Fec Heme neg Pos/Neg SEP OFFICE Lot Number SEP OFFICE Expiration Date SEP OFFICE SeriAl # SEP OFFICE Stool specimen (specimen) 03/18/2013 3:15 PM EST Mann Irene MD POINT OF CARE TEST ORDERABLES Final Result SEP OFFICE documented in this encounter Visit Diagnoses Diagnosis Osteoarthritis- Primary Osteoarthrosis, unspecified whether generalized or localized, unspecified site Other screening mammogram Colon cancer screening Special screening for malignant neoplasms, colon documented in this encounter Discontinued Medications Medication Sig Discontinue Reason Start Date End Da te GLUCOSAMINE HCL/CHONDR WILLETT A NA (OSTEO BI-FLEX ORAL) Take 2 Tabs by mouth daily. DELETE-Therapy completed 03/18/2013 topiramate (TOPAMAX) 50 mg tabletIndications:Weigh t gain Take 1 Tab by mouth 2 times daily. DELETE-Therapy completed 10/13/2012 03/18/2013 documented as of this encounter Historical Medications * This list may reflect changes made after this encounter. UNKNOWN TO PATIENT For muscle spasms from Dr. Verdin from [facility] 09/26/2013 added in this encounter Care Teams Blanket Inspector Relationship Specialty Start Date End Date Mann Irene MD [address] [place] [phone] PCP - General Internal Medicine 08/23/12 07/13/22 documented as of this encounter
--- OUTSIDE RECORDS SUMMARY | 2024-03-27 15:09 | XMS_ITS | Encounter Summary ---
Author [place] [address] Care Team Providers Care Engine Lathe Set Up Operator Name Role Phone Mann Irene MD Primary Care Provider [phone] Reason for Visit * Reason Comments Medication Refill Encounter Details Date Type Department Care Team (Late Contact Info) Description 12/17/2013 Refill [facility] [address] [address] Mann Irene MD [...] End Date atorvastatin (LIPITOR) 10 mg tablet TAKE 1 TABLET BY MOUTH ONCE DAILY 30 tablet 5 12/17/2013 12/19/2013 documented in this encounter Plan of Treatment Upcoming Encounters Date Type Department Care Team (Late Contact Info) Description 05/16/2024 9:30 AM EST Office Visit [facility] [address] [place] [id number] Gilda Francis PA [address] [place] [address] documented as of this encounter Visit Diagnoses Not on filedocumented in this encounter Discontinued Medications Medication Sig Discontinue Reason Start Date End Da te atorvastatin (LIPITOR) 10 mg tablet Take 1 Tab by mouth daily for 180 days. Reorder 04/28/2013 12/17/2013 documented as of this encounter Care Teams Engine Lathe Set Up Operator Relationship Specialty Start Date End Date Mann Irene MD [address] [place] [address] PCP - General Internal Medicine 08/23/12 07/13/22 documented as of this encounter
--- OUTSIDE RECORDS SUMMARY | 2024-03-27 15:09 | XMS_ITS | Encounter Summary ---
Author Organization [place] [address] Care Team Providers Care Crm Manager Name Role Phone Mann Irene MD Primary Care Provider [phone] Reason for Visit * Auth/Cert/Inpt - Closed Specialty Diagnoses / Procedures Referred By Contac t Referred To Contact Diagnoses Spinal stenosis, lumbar region, without neurogenic claudication Spinal stenosis, other than cervical, Lumbar region, without neurogenic claudi Procedures LUMBAR LAMINECTOMY L4,5 (MIDAS,MICRO,ATHROMBIC) Referral ID Status Reason Start Date Expiration Date Visits Re quested Visits Authorized [id number] Closed 1 1 Encounter Details Date Type Department Care Team (Latest Contact Info) Description 11/03/2012 8:17 AM EDT - 11/03/2012 3:51 PM EDT Hospital [facility] [place] [address] Elza Bautista MD [address] [place] [address] Discharge Disposition: Home or Self Care Social [...] a vacuum, ironing, loading and unloading the tube washer, washer or dryer. ?? No lifting [...] a prescription. FOLLOW-UP CARE ?? Call the [facility] appointment desk shortly after you are discharged from the hospital if you do not have a follow-up appointment. Sutures/amadeo are generally removed 10-14 days after surgery. Call [phone] to schedule your appointment. You may be [...] the emergency room if pshycian is unavailable. [facility] Medication for Treatment of Post-Operative Pain You [...] Code Departure Means Destination Home or Self Retirement documented in this encounter H&P Notes * [...] Bautista MD - 11/03/2012 1:36 PM EDT [facility]/[place]/[facility]/[place], [place] NAME: STELLA HYLTON [facility]#: [id number] LOCATION/ROOM: [facility] PACU [facility] FACILITY: [facility] DICTATOR: Elza Bautista OPERATIVE REPORT DATE OF OPERATION: 11/03/2012 PREOPERATIVE DIAGNOSES: Lumbar stenosis now with neurogenic claudication. POSTOPERATIVE DIAGNOSES: Lumbar stenosis now with neurogenic claudication. PROCEDURES PERFORMED: Lumbar laminectomy L4, decompressing the L4-L5 disk space, bilateral neural foraminotomies. SURGEON: Elza Bautista M.D. RESEARCH PROFESSOR OF BIOSTATISTICS: Lisandra. ANESTHESIA: General. ESTIMATED BLOOD LOSS: 25 [...] were given. She was placed on the Awais frame in the prone position. All pressure [...] Elza Bautista MD By: conrad Job ID: [id number] Doc ID: [id number] CC: * Elza Bautista MD - 11/03/2012 1:32 PM EDT [facility] OPERATIVE/PROCEDURE NOTE Stella Hylton November 03, 2012 PRE-OP DIAGNOSIS: Spinal stenosis, other than cervical, Lumbar region, without neurogenic claudi POST-OP DIAGNOSIS: Spinal stenosis, other than cervical, Lumbar region, without neurogenic claudi PROCEDURE(S): Procedure(s): LUMBAR LAMINECTOMY L4-5 SURGEON(S): Surgeon(s) and Role: * Elza Bautista MD - Primary RESEARCH PROFESSOR OF BIOSTATISTICS(S): Raegan Fry ARNP- Vascular Technician ANESTHESIA: General SPECIMENS: * No specimens in [...] 9:12 AM EDT Scanned office note into [facility] 10/18 documented in this encounter Plan of Treatment Upcoming Encounters Date Type Department Care Team (Late st Contact Info) Description 05/16/2024 9:30 AM EST Office Visit [facility] [address] [place] [address] Gilda Francis PA [address] [place] [address] documented as of this encounter [...] without neurogenic claudi Special Needs MULU CPT; 30054/81545 EK EKG 12 LEAD STAT 11/03/2012 11:23 [...] purposes. Procedure Note Jonathan Ge RT - 11/03/2012 Fluoroscopy was performed. The [...] ult documented in this encounter Visit Diagnoses Not on filedocumented in this encounter Administered Medications Inactive Administered Medications - up to 1 most recent administrations Medication Order MAR Action Action Date Dose Rate Site ceFAZolin (ANCEF) IVPB 1 g 1 g, [...] saline to dilute and administer famotidine IV lactated ringers infusion Intravenous, at 100 mL/hr, [...] Given 11/03/2012 3:08 PM EDT 5 mg documented in this encounter Active and Recently Administered Medications Times are shown in EDT. Scheduled Medication Order 11/01/2012 11/02/2012 11/03/2012 ceFAZolin (ANCEF) IVPB 1 g (COMPLETED) 1 g, Intravenous, ONCE PREPROCEDURE, 1 dose, On Thu11/03/12 at 0600, Administer over 30 Minutes, Pre-op (Antibiotic) 1153 (IV Started - P rovider: Chanel Acevedo RN - Comment: GIVEN PER ANEYaz)1208 (Due: IV STOP - Provider: Chanel Acevedo [...] (Holding/SDS Meds) 1113 (Given - Provid er: rPanay Hastings RN) FLOSEAL (HEMOSTATIC MATRIX) 5 mL [...] 1047 (New Bag - Prov ider: Pranay Hastings RN)1535 (Stopped - Provider: Traci Guardado RN) oxyCODONE [...] Date First Ordered Date acetaminophen (OFIRMEV) infusion 11/04/19 13 acetaminophen (OFIRMEV) infusion 1,000 mg 1 11/03/2012 bupivacaine-EPINEPHrine 0.5 %-1:200,000 injection 11/03/2012 ceFAZolin (ANCEF) 1 gram/50 mL IVPB 11/03 diphenhydrAMINE (BENADRYL) i njection 25-50 mg 11/03/2012 fentaNYL (SUBLIMAZE) 50 mcg/ mL injection 25 mcg 11/03/2012 FLOSEAL (HEMOSTATIC MATRIX) 5 mL KIT 10/10 HYDROmorphone (DILAUDID) 1 m g/mL injection 0.25 mg 1 11/03/2012 meperidine (DEMEROL) 25 mg/m L injection (PF) 12.5 mg 1 11/03/2012 ondansetron (ZOFRAN) 4 mg/2 mL injection 4 mg 1 11/03/2012 ondansetron (ZOFRAN-ODT) dis integrating tablet 8 mg 1 11/03/2012 oxyCODONE-acetaminophen (PER COCET) 5-325 mg per tablet 1 Tab 1 11/03/2012 sodium chloride 0.9 % 500 mL with neomycin sulfate 1 g, bacitracin 5,000 Units IRRIGATION 1 11/03/2012 Nursing Count Last Ordered Date First Orde red Date NURSING COMMUNICATION 2 11/03/2012 RELEASE FROM ANESTHESIA CARE 1 11/03/2012 VERIFY INFORMED CONSENT 1 11/03/2012 Discharge Count Last Ordered Date First Orde red Date DISCHARGE PATIENT 1 11/03/2012 documented in this encounter Care Teams Crm Manager Relationship Specialty Start Date End Date Mann Irene MD [address] [place] [id number] PCP - General Internal Medicine 08/23/12 07/13/22 documented as of this encounter
--- OUTSIDE RECORDS SUMMARY | 2024-03-27 15:09 | XMS_ITS | Encounter Summary ---
[place] [address] Care Team Providers Care Capability Lead Name Role Phone Mann Irene MD Primary Care Provider [phone] Encounter Details Date Type Department Care Team (Latest Contact Info) Description 12/16/2013 3:41 PM EDT - 12/16/2013 11:59 PM EDT Hospital Encounter [facility] [place] [id number] Thigh pain, right Discharge Disposition: Home or [...] Notes * Miscellaneous - Unknown, Unknown - 12/16/2013 3:41 PM EDT documented in this encounter Plan of Treatment Upcoming Encounters Date Type Department Care Team (Late st Contact Info) Description 05/16/2024 9:30 AM EST Office Visit [facility] [address] [place] [phone] Gilda Francis PA [address] [place] [address] documented as of this encounter Procedures Procedure Name Priority Date/Time Associated Diagnosis Comments CREATINE KINASE Routine 12/16/2013 11:28 AM EDT Thigh pain, right documented in this encounter Results * CREATINE KINASE (12/16/2013 11:28 AM EDT) CK 106 26 - 192 IU/L [facility] Blood specimen (specimen) UPPER LIMB STRUCTURE / Unknown 12/16/2013 11:28 AM EDT 12/16/2013 4:15 PM EDT us Stefania Braun MD CHEMISTRY ORDERABLE S Final Result [facility] [address] [place] [address] documented in this encounter Visit Diagnoses Diagnosis Thigh pain, right documented in this encounter Care Teams Capability Lead Relationship Specialty Start Date End Date Mann Irene MD [address] [place] [id number] PCP - General Internal Medicine 08/23/12 07/13/22 documented as of this encounter
--- OUTSIDE RECORDS SUMMARY | 2024-03-27 15:09 | XMS_ITS | Encounter Summary ---
Author [place] [address] Care Team Providers Care Car Runner Name Role Phone Mann Irene MD Primary Care Provider [phone] Reason for Referral * Echo (Routine) - Closed Specialty Diagnoses / Procedures Referred By Ramona t Referred To Contact Radiology Diagnoses Heart murmur Procedures EC ECHOCARDIOGRAM COMPLETE W DOPPLER AND COLOR FLOW MAPPING Mann [place] [address] [address] [place] [address] Phone: tel: fax: [place] [address] Phone: tel: fax: Referral ID Status Reason Start Date Expiration Date Visits Re quested Visits Authorized [id number] Closed 09/26/2013 03/25/2014 1 1 * Mammography (Routine) - Closed Specialty Diagnoses / Procedures Referred By Contmillicent t Referred To Contact Radiology Diagnoses Other screening mammogram Procedures MM MAMMO DIGITAL SCREENING W CAD BILAT Mann Irene MD [address] [place] [address] Phone: tel: fax: Referral ID Status Reason Start Date Expiration Date Visits Re quested Visits Authorized [id number] Closed 09/26/2013 03/25/2014 1 1 * Consultation (Routine) - Closed Specialty Diagnoses / Procedures Referred By Contact Referred To Contact Internal Medicine-Gastroenterology / Gastroenterology Diagnoses Screen for colon cancer Mann Irene MD [address] [place] [address] [place] [address] Phone: tel: fax: Edil Mann MD Phone: tel:[phone] fax:[phone] Referral ID Status Reason Start Date Expiration Date Visits Re quested Visits Authorized [id number] Closed 09/26/2013 03/25/2014 24 24 Scheduling Instructions If you are a patient of [facility], please contact [phone] (Toll Free [phone]) to schedule a consultation with a specialist. Reason for Visit * Reason Comments Annual Exam fbw Leg Pain bilateral legs Encounter Details Date Type Department Care Team (Late st Contact Info) Description 09/26/2013 9:20 AM EDT Office Visit [facility] [address] [place] [address] [place] [phone] Mann Irene MD [address] [place] [address] [place] [phone] Well adult exam (Primary Dx); Claudication (HCC); Other screening mammogram; Heart murmur; Screen for colon cancer; Hypercholesterolemia; Osteoarthritis Social History Tobacco Use Types Packs/Day Years [...] Sign Reading Time Taken Comments Blood Pressure 138/78 09/26/2013 9:16 AM EDT Pulse 78 09/26/2013 9:16 AM EDT Temperature 36.6 ??C (97.8 ??F) 09/26/2013 9:16 AM ED T Respiratory Rate 16 09/26/2013 9:16 AM EDT Oxygen Saturation 98% 09/26/2013 9:16 AM EDT Inhaled Oxygen Concentration - - Weight 78.9 kg (174 lb) 09/26/2013 9:16 AM EDT Height 160 cm (5' 3 ) 09/26/2013 9:16 AM EDT Body Mass Index 30.82 09/26/2013 9:16 AM EDT documented in this encounter Ordered Prescriptions Prescription Sig Dispense Quantity Refills Last Filled Start Date End Date loratadine-pseudoep hedrine (LORATADINE-PSEUDOE PHEDRINE) 10-240 mg Tb24 per tablet Take 1 Tab by mouth daily. 30 Tab 5 09/26/2013 09/01/2014 celecoxib (CELEBREX) 200 mg capsuleIndications: Osteoarthritis Take 1 Cap by mouth 2 times daily for 180 days. 60 Cap 5 09/26/2013 12/16/2013 documented in this encounter Progress Notes * Jill Bcek - 09/26/2013 10:12 AM EDT Venipuncture in the right antecubital vein with 21 gauge needle, length 1 1/2 inch. * Jill Beck - 09/26/2013 10:09 AM EDT Subjective: Patient ID: Stella Hylton is a 68 y.o. female. Chief Complaint Patient presents with ??? Annual Exam fbw ??? Leg Pain bilateral legs HPI Patients past medical, family and social histories were reviewed and updated. There were no changesexcept as noted. Review of Systems Objective: Filed Vitals: 09/26/13 0916 BP: 138/78 Pulse: 78 Temp: 97.8 ??F (36.6 ??C) TempSrc: Oral Resp: 16 Height: 5' 3 (1.6 m) Weight: 174 lb (78.926 kg) SpO2: 98% Body mass index is 30.83 kg/(m^2). Physical Exam Assessment and Plan: Stella was seen today for annual exam and leg pain. Diagnoses and associated orders for this visit: Well adult exam Claudication - Vascular Ultrasound lower extremity arterial duplex complete; Future Other screening mammogram - Mammography digital screening with CAD bilat; Future Heart murmur - EC echocardiogram complete; Future Screen for colon cancer - Gastroenterology Hypercholesterolemia - Venipuncture - Comprehensive Metabolic Panel - Clinic Collect; Future - CBC - Clinic Collect; Future - Lipid Panel Reflex - Clinic Collect; Future Osteoarthritis - celecoxib (CELEBREX) 200 mg capsule; Take 1 Cap by mouth 2 times daily for 180 days. Other Orders - loratadine-pseudoephedrine (LORATADINE-PSEUDOEPHEDRINE) 10-240 mg Tb24 per tablet; Take 1 Tab by mouth daily. No Follow-up on file. * Mann Irene MD - 09/26/2013 9:23 AM EDT SUBJECTIVE: Stella Hylton is a 68 y.o. female presenting for an annual medicare wellness visit. Current Outpatient Prescriptions Medication Sig Dispense Refill ??? atorvastatin (LIPITOR) 10 mg tablet Take 1 Tab by mouth daily for 180 days. 30 Tab 5 ??? celecoxib (CELEBREX) 200 mg capsule Take 1 Cap by mouth 2 times daily for 180 days. 60 Cap 5 ??? loratadine-pseudoephedrine (LORATADINE-PSEUDOEPHEDRINE) 10-240 mg Tb24 per tablet Take 1 Tab bymouth daily. 30 Tab 5 No current facility-administered medications for this visit. Pain below the knees, legs swell on a daily basis. Works 10 hours per day (on feet entire time) 6 days per week. 1 hours worth of breaks throughout the day. Pain in legs is bilateral - below the knees. Patient Active Problem List Diagnosis ??? Hypercholesterolemia Past Medical History Diagnosis Date ??? Arthritis ??? Motion sickness Past Surgical History Procedure Laterality Date ??? Hysterectomy ??? Hemorrhoid surgery ??? Lumbar disc surgery 11/03/2012 Surgeon: Elza Bautista MD; Location: [facility]; Service: Family History Problem Relation Age of Onset ??? Early Father ??? Early Sister ??? Early Brother History Substance Use Topics ??? Smoking status: Former Smoker -- 25 years Types: Cigarettes ??? Smokeless tobacco: Never Used Comment: quit 5 yrs ago ??? Alcohol Use: No Allergies: Review of patient's allergies indicates no known allergies. Current Care Providers: Patient Care Team: Mann [...] GI: negative : negative Hem: negative MS: Bilateral leg pain. Neuro: negative Psych: negative Health Maintenance Topic Date Due ??? Breast Cancer Screening 1987 ??? Colon Cancer Screening Colonoscopy 09/19/1997 ??? Influenza Vaccine 01/09/2014 ??? Colon Cancer Screening Occult Blood 03/18/2014 ??? Pneumococcal Polysaccharide Vaccine Age 65 And Over Completed Health Maintenance Due Topic Date Due ??? Breast Cancer Screening 1987 ??? Colon Cancer Screening Colonoscopy 09/19/1997 ??? Influenza Vaccine 01/09/2014 ??? Colon Cancer Screening Occult Blood 03/18/2014 Lab Results Component Value Date WBC 8.2 04/14/2013 HGB 13.6 04/14/2013 HCT 41.0 04/14/2013 PLT 327 04/14/2013 CHOLESTEROL 236* 04/14/2013 TRIG 90 04/14/2013 HDL 42 04/14/2013 LDLCALC 176* 04/14/2013 ALT 36 04/14/2013 AST 24 04/14/2013 NA 144* 04/14/2013 K 4.5 04/14/2013 CL 106 04/14/2013 CREATININE 0.6 04/14/2013 BUN 14 04/14/2013 CO2 28 04/14/2013 GLU 99 04/14/2013 Immunization History Administered Date(s) Administered ??? Pneumococcal Polysaccharide 10/13/2012 OBJECTIVE: BP 138/78 Pulse 78 Temp(Src) 97.8 ??F (36.6 ??C) (Oral) Resp 16 Ht 5' 3 (1.6 m) Wt 174 lb (78.926 kg) BMI 30.83 kg/m2 SpO2 98% Body mass index is 30.83 kg/(m^2). Gen: in no apparent distress and well developed and well nourished. Eyes: lids and lashes normal. ENT: ENT exam normal, no neck nodes or sinus tenderness. Neck: nontender, no nuchal rigidity, no masses. Lymph: Cervical, supraclavicular, and axillary nodes normal.. Resp: clear to auscultation and no wheezes or rales CV: normal rate, regular rhythm, normal S1, S2, 2/6 KEILY, no rubs, clicks or gallops Abd: soft, non-tender, without masses or organomegaly : exam deferred Extrem: peripheral pulses decreased, no pedal edema, no clubbing or cyanosis, no pedal edema noted Skin: warm and dry, no hyperpigmentation, vitiligo, or suspicious lesions Neuro: Alert and oriented X 3, normal strength and tone. Normal symmetric reflexes. Normal coordination and gait alert, oriented x3 speech: normal in context and clarity memory: intact grossly cranial nerves II-XII: intact motor strength: full proximally and distally no involuntary movements or tremors sensation: intact to vibration, pain, and light touch cerebellar: sufilv-qh-dvvg and bljb-ib-ttzq intact gait: normal reflexes: full and symmetric plantar responses: downgoing bilaterally ASSESSMENT AND PLAN: Stella was seen today for annual exam and leg pain. Diagnoses and associated orders for this visit: Well adult exam Claudication - Vascular Ultrasound lower extremity arterial duplex complete; Future Other screening mammogram - Mammography digital screening with CAD bilat; Future Heart murmur - EC echocardiogram complete; Future Screen for colon cancer - Gastroenterology Hypercholesterolemia - Venipuncture - Comprehensive Metabolic Panel - Clinic Collect; Future - CBC - Clinic Collect; Future - Lipid Panel Reflex - Clinic Collect; Future Osteoarthritis - celecoxib (CELEBREX) 200 mg capsule; Take 1 Cap by mouth 2 times daily for 180 days. Other Orders - loratadine-pseudoephedrine (LORATADINE-PSEUDOEPHEDRINE) 10-240 mg Tb24 per tablet; Take 1 Tab by mouth daily. Recommended: begin progressive daily aerobic exercise program and follow a low fat, low cholesteroldiet. Advanced directive: no documented in this encounter Plan of Treatment Upcoming Encounters Date Type Department Care Team (Late st Contact Info) Description 05/16/2024 9:30 AM EST Office Visit [facility] [address] [place] [phone] Gilda Francis PA [address] [place] [address] Scheduled Referrals Name Type Priority Associated Diagnoses Order Schedule AMB REFERRAL TO GASTROENTEROLOGY Outpatient Referral Routine Screen for colon cancer Ordered: 09/26/2013 documented as of this encounter Results * EC ECHOCARDIOGRAM COMPLETE W DOPPLER AND COLOR FLOW MAPPING (10/07/2013 1:25 PM EDT) Ejection Fraction 55-60 % PYRAMIS Anatomical Region [...] tricuspid valve. No tricuspid stenosis or prolapse. Iuny-hf-omvxfozk tricuspid ? regurgitation. Right ventricular systolic pressure [...] normal tricuspid valve. No tricuspidstenosis or prolapse. Kogk-oq-zwfzmnfn tricuspid regurgitation. Right ventricular systolic pressureestimated at 47 mmHg. Pulmonic Valve Structurally normal pulmonic valve. No pulmonicstenosis. Trace pulmonic regurgitation. Pericardium Normal pericardium. No pericardial or pleuraleffusion. Aorta Sclerotic changes noted to aortic root and arch.However, measures within normal limits. CONCLUSIONS Preserved left ventricular systolic function. Possible pulmonary hypertension. us Mann Irene MD IMG ECHO ORDERABLES Final Resu lt * MM MAMMO DIGITAL SCREENING W CAD BILAT (10/07/2013 1:12 PM EDT) Anatomical Region Laterality Modality Breast Bilateral Mammography 10/10/2013 8:38 AM EDT Impressions 10/11/2013 9:06 AM EDT : Negative ??([id number]) ~ RECOMMENDATION: Routine screening mammogram in 1 [...] architecturaldistortion in either breast. ~ IMPRESSION: Negative ([id number]) ~ RECOMMENDATION: Routine screening mammogram in 1 [...] IMG MAMMOGRAPHY ORDERABLES Fin al Result * [facility] US LOWER EXTREMITY ARTERIAL PHYSIOLOGICAL (10/07/2013 12:56 PM [...] MD IMG VASCULAR ORDERABLES Final Result * LIPID PANEL REFLEX (09/26/2013 10:09 AM EDT) Cholesterol 168 <=200 mg/dL [facility] Comment: < 200 ?Desirable 200 - 239 ? Borderline High >= 240 ?High Triglyceride 96 <=150 mg/dL [facility] Comment: < 150 ? Normal 150 - 199 ?Borderline High 200 - 499 ?High ??>= 500 ? Very High HDL 47 >=40 mg/dL [facility] Comment: ?? > 60 ?Optimal 40 - 60 ?Acceptable ?? < 40 ?Low Blood specimen (specimen) UPPER LIMB STRUCTURE / Unknown 09/26/2013 10:09 AM EDT 09/26/2013 7:31 PM EDT Mann Irene MD CHEMISTRY ORDERABLES Edited Re sult - Final [facility] [address] [place] [address] * CBC (09/26/2013 10:09 AM EDT) WBC 8.2 4.0 - 11.0 x10(3)/mcL [facility] RBC 4.87 3.80 - 5.10 x10(6)/mcL [facility] Hgb 14.1 12.0 - 15.6 gm/dL [facility] Hct 42.4 35.7 - 45.9 % [facility] MCV 87.1 82.5 - 99.8 fL [facility] MCH 29.0 27.0 - 34.3 pg [facility] MCHC 33.3 32.1 - 35.3 gm/dL [facility] RDW 14.0 11.5 - 15.0 % [facility] Platelet 298 144 - 423 x10(3)/mcL [facility] MPV 7.8 6.8 - 10.8 fL [facility] Blood specimen (specimen) UPPER LIMB STRUCTURE / Unknown 09/26/2013 10:09 AM EDT 09/26/2013 7:31 PM EDT us Mann Irene MD HEMATOLOGY ORDERABLES Final Re sult [facility] [address] [place] [address] * (ABNORMAL) COMPREHENSIVE METABOLIC PANEL (09/26/2013 10:09 AM EDT) Pathologist [facility] Sodium 144 136 - 145 mmol/L [facility] Potassium 5.2(H) 3.5 - 5.0 mmol/L [facility] Chloride 107 98 - 107 mmol/L [facility] Total CO2 28 22 - 29 mmol/L [facility] Anion Gap 9 7 - 16 mmol/L [facility] Calcium 9.6 8.8 - 10.2 mg/dL [facility] Glucose Lvl 89 82 - 100 mg/dL [facility] BUN 13 8 - 23 mg/dL [facility] Creatinine 0.70 0.51 - 1.00 mg/dL [facility] Albumin 4.2 3.2 - 4.6 gm/dL [facility] Total Protein 7.2 6.4 - 8.3 gm/dL [facility] Bili Total 0.4 0.1 - 1.3 mg/dL [facility] AST 12 <=40 IU/L [facility] ALT 13 <=41 IU/L [facility] Alk Phos 103 35 - 104 IU/L [facility] GFR Afr Am >60 [facility] Comment: GFR is estimated [...] or less GFR Non Afr Am >60 [facility] Blood specimen (specimen) UPPER LIMB STRUCTURE / Unknown 09/26/2013 10:09 AM EDT 09/26/2013 7:31 PM EDT us Mann Irene MD CHEMISTRY ORDERABLES Edited Re sult - Final [facility] [address] [place] [address] documented in this encounter Visit Diagnoses Diagnosis Well adult exam- Primary Routine general medical examination at a health care facility Claudication (HCC) Peripheral vascular disease, unspecified Other screening mammogram Heart murmur Undiagnosed cardiac murmurs Screen for colon cancer Special screening for malignant neoplasms, colon Hypercholesterolemia Pure hypercholesterolemia Osteoarthritis Osteoarthrosis, unspecified whether generalized or localized, unspecified site Heart murmur Undiagnosed cardiac murmurs Other screening mammogram Claudication (HCC) Peripheral vascular disease, unspecified documented in this encounter Discontinued Medications Medication Sig Discontinue Reason Start Date End Da te HYDROcodone-acetaminop hen (VICODIN ES) 7.5-750 mg per tablet Take 1 Tab by mouth every 6 hours as needed. DELETE-Therapy completed 09/26/2013 ibuprofen (ADVIL;MOTRIN) 800 mg Take 1 Tab by mouth every 8 hours as needed for Pain. DELETE-Therapy completed 11/03/2012 09/26/2013 UNKNOWN TO PATIENT For muscle spasms from Dr. Verdin from [facility] DELETE-Therapy completed 09/26/2013 diclofenac (VOLTAREN) 75 mg EC tablet TAKE 1 TABLET TWICE A DAY (WITH A MEAL) Alternate therapy 06/19/2013 09/26/2013 documented as of this encounter Orders Charge Count Last Ordered Date First Orde red Date NM COLLECTION VENOUS BLOOD,VENIPUNCTURE 1 0 09/26/2013 documented in this encounter Care Teams Car Runner Relationship Specialty Start Date End Date Mann Irene MD [address] [place] [address] PCP - General Internal Medicine 08/23/12 07/13/22 documented as of this encounter
--- OUTSIDE RECORDS SUMMARY | 2024-03-27 15:09 | XMS_ITS | Encounter Summary ---
Author Organization [place] [address] Care Team Providers Care Beaming Machine Operator Name Role Phone Mann Irene MD Primary Care Provider [phone] Reason for Visit * Reason Comments Poison Loern face since yesterday Encounter Details Date Type Department Care Team (Late st Contact Info) Description 10/13/2012 11:40 AM EDT Office Visit [facility] [address] [address] [place] [address] [place] [address] Poison loren (Primary Dx); Need for pneumococcal vaccination; Weight gain Social History Tobacco Use Types Packs/Day Years [...] Reading Time Taken Comments Blood Pressure 124/74 10/13/2012 12:01 PM EDT Pulse 82 10/13/2012 12:01 PM EDT Temperature 36.8 ??C (98.2 ??F) 10/13/2012 12:01 PM E DT Respiratory Rate 16 10/13/2012 12:01 PM EDT Oxygen Saturation 97% 10/13/2012 12:01 PM EDT Inhaled Oxygen Concentration - - Weight 90.3 kg (199 lb) 10/13/2012 12:01 PM EDT Height 162.6 cm (5' 4 ) 10/13/2012 12:01 PM EDT Body Mass Index 34.16 10/13/2012 12:01 PM EDT documented in this encounter Ordered Prescriptions Prescription Sig Dispense Quantity Refills Last Filled Start Date End Date topiramate (TOPAMAX) 50 mg tabletIndications:W eight gain Take 1 Tab by mouth 2 times daily. 60 Tab 2 10/13/2012 03/18/2013 documented in this encounter Progress Notes * Mann Irene MD - 10/13/2012 12:07 PM EDT Stella Hylton is a 67 y.o. female BP 124/74 Pulse 82 Temp(Src) 98.2 ??F (36.8 ??C) (Oral) Resp 16 Ht 5' 4 (1.626 m) Wt 199lb (90.266 kg) BMI 34.14 kg/m2 SpO2 97% Chief Complaint Patient presents with ??? Poison Loren face since yesterday As above. Also concerned about weight gain. Does not feel that appetite has changed. Eats regularly - breakfast/lunch/dinner. Wt Readings from Last 3 Encounters: 10/13/12 199 lb (90.266 kg) 09/13/12 203 lb (92.08 kg) There is no problem list on file [...] lesions noted. Stella was seen today for poison loren. Diagnoses and associated orders for this visit: Poison loren - betamethasone acetate-betamethasone sodium phosphate (CELESTONE) injection 12 mg; Inject 2 mL into the muscle once. Need for pneumococcal vaccination - Pneumococcal polysaccharide vaccine 23-valent greater than or equal to 2yo subcutaneous/IM Weight gain - topiramate (TOPAMAX) 50 mg tablet; Take 1 Tab by mouth 2 times daily. I have discussed appropriate preventative health care measures with this patient. The risks of not obtaining the appropriate preventative screening -- including missed diagnoses of illness or cancer have been fully explained. The risk of delayed diagnosis or has been discussed. Despite this discussion, the patient does not wish to proceed with the following preventative health measures: mammogram AVS given to patient and discussed. documented in this encounter Consult Notes * Unknown, Unknown - 11/09/2012 12:00 AM EDT documented in this encounter Miscellaneous Notes * Patient Instructions - Mann Irene MD - 10/13/2012 12:59 PM EDT Thank you for enrolling in [employer]. Please follow the instructions below to securely access your online medical record. [employer] allows you to send messages to your doctor, view your test results, renew your prescriptions, request appointments and more. How Do I Sign Up? 1. In your Internet browser, navigate to [email or web address] and click on the [employer] link. 2. Click on the Use your Activation Code button in the New User Registration section on the right. You will see the Please Identify Yourself page. 3. Enter your [employer] Activation Code exactly as it appears below. You will not need to use this code after you???ve completed the sign-up process. This activation code will 60 days after the date at the top of this page at which time you must request a new code from your doctors office. [employer] Activation Code: Not generated Current [employer] Status: Active 4. Enter your Social Security Number ([id number]) and Date of (mm/dd/yyyy) as indicated and click Next. You will be taken to the next sign-up page. 5. Create a [employer] ID. This will be your [employer] login ID and cannot be changed, so think of one that is secure and easy to remember. 6. Create a [employer] password. You can change your password at any time. 7. Enter your Password Reset Question and Answer. This can be used at a later time if you forget your password. Click Next. 8. Enter your e-mail address. You will receive e-mail notification when new information is available in [employer]. 9. Click Sign Up. You can now view your medical record. Additional Information Additional Information If you have questions, call your doctors office to talk to a [employer] staff member. Remember, [employer] is NOT to be used for urgent needs. For medical emergencies, dial 911. documented in this encounter Plan of Treatment Upcoming Encounters Date Type Department Care Team (Late st Contact Info) Description 05/16/2024 9:30 AM EST Office Visit [facility] [address] [place] [phone] Gilda Francis PA [address] [place] [address] documented as of this encounter Visit Diagnoses Diagnosis Poison loren- Primary Contact dermatitis and other eczema due to plants (except food) Need for pneumococcal vaccination Need for prophylactic vaccination against streptococcus pneumoniae (pneumococcus) Weight gain Other symptoms concerning nutrition, metabolism, and development documented in this encounter Administered Medications Inactive Administered Medications - up to 1 most recent administrations Medication Order MAR Action Action Date Dose Rate Site betamethasone acetate-betamethasone sodium phosphate (CELESTONE) injection 12 mg 12 mg, Intramuscular, ONCE, 1 dose, On Thu10/13/12 at 1215, Dx: 1. Poison ivyIndications:Poison loren Given 10/13/2012 12:12 PM EDT 12 mg Right Upper Outer Quadrant documented in this encounter Orders Immunization/Injection Count Last Ordered Date First Ordered Date PNEUMOCOCCAL POLYSACCHARIDE VACCINE 23-VALENT =>2YO SQ/IM 1 10/13/2012 documented in this encounter Care Teams Beaming Machine Operator Relationship Specialty Start Date End Date Mann Irene MD [address] [place] [address] PCP - General Internal Medicine 08/23/12 07/13/22 documented as of this encounter
--- OUTSIDE RECORDS SUMMARY | 2024-03-27 15:10 | XMS_ITS | Encounter Summary ---
Author Organization [place] [address] Care Team Providers Care Toe Puncher Name Role Phone Unavailable Primary Care Provider Unavailabl e Encounter Details Date Type Department Care Team (Late st Contact Info) Description 03/14/1998 2:27 PM EST - 03/14/1998 11:59 PM EST Hospital Encounter [facility] Luis Cartagena MD Social History Tobacco Use Types Packs/Day Years Used Date Smoking Tobacco: Never Assessed Comments Unknown Sex and Gender Information Value Date Recorded Sex Assigned at Not on file Legal Sex Female 5:30 PM EDT Gender Identity Not on file Sexual Orientation Not on file documented as of this encounter Plan of Treatment Upcoming Encounters Date Type Department Care Team (Late st Contact Info) Description 05/16/2024 9:30 AM EST Office Visit [facility] [address] [place] [address] Gilda Francis PA [address] [place] [address] documented as of this encounter Visit Diagnoses Not on filedocumented in this encounter
--- OUTSIDE RECORDS SUMMARY | 2024-03-27 15:10 | XMS_ITS | Encounter Summary ---
Author Organization [facility] Address [address] [place] [address] Care Team Providers Care Household Personal Assistant Name Role Phone Unavailable Primary Care Provider Unavailabl e Source Comments This information has been disclosed to you from confidential records protectfrom disclosure by state law. You shall make no further disclosure of thisinformation without the specific, written, and informed release of theindividual to whom it pertains, or as otherwise permitted by law. A generalauthorization for the release of medical or other information is not sufficientfor the purposes of the release of HIV test results or diagnoses. [id number] Encounter Details Date Type Department Care Team (Late st Contact Info) Description 11/19/2012 Chart Note [facility] Ancillary Services at [address] [address] Brittany Boyd RN 11/19/12 at 14:00: pt left VM to inquire about lung screening program on Social History Tobacco Use Types Packs/Day Years Used Date Smoking Tobacco: Never Assessed Comments Unknown Sex and Gender Information Value Date Recorded Sex Assigned at Not on file Legal Sex Female 4:12 PM EST Gender Identity Not on file Sexual Orientation Not on file documented as of this encounter Progress Notes * Brittany Boyd RN - 11/19/2012 2:38 PM EDT 11/19/12 at 14:00: pt left VM to inquire about lung screening program on 10/19/12 after watching story on Channel 12. Spoke with pt at 14:00 on 11/19/12. Program explained, risk/benefits discussed, fees, discussed, eligibility assessed. Pt states she is on a fixed income ($700/month with rent $600/month) and cannot afford the $99 out of pocket cost. She would like to be screened in the future if financial assistance or Medicare covers the initial screen. 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 Symptoms: denies Insurance: Medicare Recommendations: Based on current lung screening guidelines, pt is a candidate for lung cancer screening program. Action: Pt not interested in lung screening at this time stating that she is on a fixed income of $700/month with rent at $600/month. She states she would be interested in Medicare covers the screening or funds are available to allow her to be screened. Response: Pt verbalized understanding documented in this encounter Plan of Treatment Not on file documented as of this encounter Visit Diagnoses Not on filedocumented in this encounter
--- OUTSIDE RECORDS SUMMARY | 2024-03-27 15:10 | XMS_ITS | Encounter Summary ---
Author Organization [place] [address] Care Team Providers Care Carpenter Assembler Name Role Phone Unavailable Primary Care Provider Unavailabl e Encounter Details Date Type Department Care Team (Late st Contact Info) Description 07/11/1999 3:44 PM EST - 07/11/1999 11:59 PM EST Hospital Encounter [facility] Carlos Lopez MD Social History Tobacco Use Types Packs/Day [...] EST Office Visit [facility] [address] [place] [address] Gilda Francis PA [address] [place] [address] documented as of this encounter Visit Diagnoses Not on filedocumented in this encounter
--- OUTSIDE RECORDS SUMMARY | 2024-03-27 15:10 | XMS_ITS | Encounter Summary ---
Author Organization [place] [address] Care Team Providers Care Mac Developer Name Role Phone Unavailable Primary Care Provider Unavailabl e Encounter Details Date Type Department Care Team (Late st Contact Info) Description 12/25/1997 1:00 PM EDT - 12/27/1997 4:38 PM EDT Hospital Encounter [facility] Ludwin Wang MD [address] [facility] [address] [place] [phone] Social History Tobacco Use Types Packs/Day Years Used Date Smoking Tobacco: Never Assessed Comments Unknown Sex and Gender Information Value Date Recorded Sex Assigned at Not on file Legal Sex Female 5:30 PM EDT Gender Identity Not on file Sexual Orientation Not on file documented as of this encounter Discharge Summaries * Unknown, U - 12/05/2009 5:08 AM EDT documented in this encounter H&P Notes * Unknown, - 12/05/2009 2:54 PM EDT documented in this encounter Consult Notes * Unknown, - 12/05/2009 5:26 AM EDT documented in this encounter Plan of Treatment Upcoming Encounters Date Type Department Care Team (Late st Contact Info) Description 05/16/2024 9:30 AM EST Office Visit [facility] [address] [place] [phone] Gilda Francis PA [address] [place] [address] documented as of this encounter Visit Diagnoses Not on filedocumented in this encounter
--- OUTSIDE RECORDS SUMMARY | 2024-03-27 15:10 | XMS_ITS | Encounter Summary ---
Author Organization [place] [address] Care Team Providers Care Merchandise Flow Team Leader Name Role Phone Unavailable Primary Care Provider Unavailabl e Encounter Details Date Type Department Care Team (Late Contact Info) Description 02/22/2002 11:31 AM EDT - 02/22/2002 11:59 PM EDT Hospital Encounter [facility] [...] Office Visit [facility] [address] [place] [address] Gilda Francis PA [address] [place] [address] documented as of this encounter Visit Diagnoses Not on filedocumented in this encounter
--- OUTSIDE RECORDS SUMMARY | 2024-03-27 15:10 | XMS_ITS | Encounter Summary ---
Author Organization [place] [address] Care Team Providers Care Squirrel Man Name Role Phone Unavailable Primary Care Provider Unavailabl e Encounter Details Date Type Department Care Team (Late st Contact Info) Description 04/28/1997 9:23 AM EST - 04/28/1997 11:59 [...] Office Visit [facility] [address] [place] [address] Gilda Francis PA [address] [place] [address] documented as of this encounter Visit Diagnoses Not on filedocumented in this encounter
--- OUTSIDE RECORDS SUMMARY | 2024-03-27 15:10 | XMS_ITS | Encounter Summary ---
Author Organization [place] [address] Care Team Providers Care Chlorobutadiene Scrubber Operator Name Role Phone Unavailable Primary Care Provider Unavailabl e Encounter Details Date Type Department Care Team (Late st Contact Info) Description 10/14/1999 5:50 PM EDT - 10/14/1999 11:59 [...] Office Visit [facility] [address] [place] [address] Gilda Francis PA [address] [place] [address] documented as of this encounter Visit Diagnoses Not on filedocumented in this encounter
--- OUTSIDE RECORDS SUMMARY | 2024-03-27 15:10 | XMS_ITS | Encounter Summary ---
Author Organization [facility] Address [address] [place] [address] Care Team Providers Care Food Safety Field Specialist Name Role Phone Unavailable Primary Care Provider [...] release of HIV test results or diagnoses. [id number] Encounter Details Date Type Department Care Team (Late st Contact Info) Description 07/02/2018 Chart Note [facility] Ancillary Services at [address] [phone] Karime Carter RN Letter mailed to home address on file indicating that patient may qualify Social History Tobacco Use Types Packs/Day Years Used Date Smoking Tobacco: Never Assessed Comments Unknown Sex and Gender Information Value Date Recorded Sex Assigned at Not on file Legal Sex Female 4:12 PM EST Gender Identity Not on file Sexual Orientation Not on file documented as of this encounter Progress Notes * Karime Carter RN - 07/02/2018 2:20 PM EST Letter mailed to home address on file indicating that patient may qualify for lung screening program and requesting patient return call to our office to evaluate against current program criteria. documented in this encounter Plan of Treatment Not on file documented as of this encounter Visit Diagnoses Not on filedocumented in this encounter
--- OUTSIDE RECORDS SUMMARY | 2024-03-27 15:10 | XMS_ITS | Encounter Summary ---
Author Organization [place] [address] Care Team Providers Care Compliance Engineer Products Name Role Phone Unavailable Primary Care Provider Unavailabl e Encounter Details Date Type Department Care Team (Late st Contact Info) Description 02/22/2003 10:02 AM EDT - 02/22/2003 11:59 PM EDT Hospital Encounter [facility] Mann Irene MD [address] [place] [address] Social History Tobacco Use Types Packs/Day Years [...] EST Office Visit [facility] [address] [place] [address] Gilda Francis PA [address] [place] [address] documented as of this encounter Visit Diagnoses Not on filedocumented in this encounter
--- OUTSIDE RECORDS SUMMARY | 2024-03-27 15:10 | XMS_ITS | Encounter Summary ---
Author Organization [place] [address] Care Team Providers Care Child Care Group Leader Name Role Phone Unavailable Primary Care Provider Unavailabl e Encounter Details Date Type Department Care Team (Late st Contact Info) Description 02/21/2004 10:34 AM EDT - 02/21/2004 11:59 PM EDT Hospital Encounter [facility] Mann Irene MD [address] [place] [address] Social History Tobacco Use Types Packs/Day [...] EST Office Visit [facility] [address] [place] [address] Gilda Francis PA [address] [place] [address] documented as of this encounter Visit Diagnoses Not on filedocumented in this encounter
--- OUTSIDE RECORDS SUMMARY | 2024-03-27 15:10 | XMS_ITS | Encounter Summary ---
Author Organization [place] [address] Care Team Providers Care Bed Spring Maker Name Role Phone Unavailable Primary Care Provider Unavailabl e Encounter Details Date Type Department Care Team (Late st Contact Info) Description 11/21/2002 7:48 PM EDT - 11/21/2002 11:59 PM EDT Hospital Encounter [facility] Edil Mann MD [address] [place] [address] Social History Tobacco Use Types Packs/Day Years [...] EST Office Visit [facility] [address] [place] [phone] Gilda Francis PA [address] [place] [address] documented as of this encounter Visit Diagnoses Not on filedocumented in this encounter
--- OUTSIDE RECORDS SUMMARY | 2024-03-27 15:10 | XMS_ITS | Encounter Summary ---
Author Organization [place] [address] Care Team Providers Care Rubber Factory Worker Name Role Phone Unavailable Primary Care Provider Unavailabl e Encounter Details Date Type Department Care Team (Late st Contact Info) Description 07/27/2000 9:55 PM EST - 07/27/2000 10:46 PM EST Hospital Encounter [facility] Flakito Rock MD Social History Tobacco Use Types Packs/Day [...] Office Visit [facility] [address] [place] [address] Gilda Francis PA [address] [place] [address] documented as of this encounter Visit Diagnoses Not on filedocumented in this encounter
--- OUTSIDE RECORDS SUMMARY | 2024-03-27 15:10 | XMS_ITS | Clinical Summary ---
Author Organization [facility] Address [facility] [address] [place] [address] Care Team Providers Care Automotive Tire Technician Name Role Phone Unavailable Primary Care Provider Unavailabl e Source Comments This information has been disclosed to you from confidential records protectedfrom disclosure by state law. You shall make no further disclosure of thisinformation without the specific, written, and informed release of theindividual to whom it pertains, or as otherwise permitted by law. A generalauthorization for the release of medical or other information is not sufficientfor the purposes of therelease of HIV test results or diagnoses. [id number] Social History Tobacco Use Types Packs/Day Years Used Date Smoking Tobacco: Never Assessed Comments Unknown Sex and Gender Information Value Date Recorded Sex Assigned at Not on file Legal Sex Female 4:12 PM EST Gender Identity Not on file Sexual Orientation Not on file Plan of Treatment Not on file
--- OUTSIDE RECORDS SUMMARY | 2024-03-27 15:10 | XMS_ITS | Encounter Summary ---
Author Organization [place] [address] Care Team Providers Care Drawing Kiln Operator Name Role Phone Unavailable Primary Care Provider Unavailabl e Encounter Details Date Type Department Care Team (Late st Contact Info) Description 04/17/1994 2:58 PM EST - 04/17/1994 11:59 PM EST Hospital Encounter [facility] EPIC CON [facility]K [facility] Harjeet Celis [address] [place] [phone] Social History Tobacco Use Types Packs/Day Years [...] Office Visit [facility] [address] [place] [address] Gilda Francis PA [address] [place] [address] documented as of this encounter Visit Diagnoses Not on filedocumented in this encounter
[2024-03-27 15:51] VITALS: BP 141/71; PULSE 97; RESP 18; TEMP 36.8; O2SAT 92
== END 2024-03-27 16:15 | disposition home or self-care (01) | DRG 683 ==
LOC: ER 14:32 → 2ND 15:20
PROVIDERS: Admitting Provider Student in an Organized Health Care Education/Training Program; Emergency Provider Emergency Medicine; PCP Pediatrics; Visit Provider Student in an Organized Health Care Education/Training Program
DX: N17.9 Acute kidney failure, unspecified (principal); N39.0 Urinary tract infection, site not specified; R78.81 Bacteremia; I10 Essential (primary) hypertension; R29.6 Repeated falls; Z60.2 Problems related to living alone; N12 Tubulo-interstitial nephritis, not specified as acute or chronic; B96.20 Unspecified Escherichia coli [E. coli] as the cause of diseases classified elsewhere
CPT/HCPCS: 36415; 70450; 71045; 80053; 81001; 82550; 82803; 83605; 83690; 83735; 85007; 85025; 86803; 87040; 87077; 87086; 87088; 87186; 87389; 87636; 93005; 97162; 99285; J0696; J1650; J2543; J7030; J7120; J7620

== ENCOUNTER 2024-04-05 12:55 | Outpatient (CLI) | payer MEDICARE, SELFPAY ==
[2024-04-05 18:29] LABS: Basophils # 0.1 K/mm3 (0-0.2); Eosinophils # 0.4 K/mm3 (0.0-0.4); Eosinophils % 3.2 % (0.1-12.0); Hemoglobin 12.2 g/dL (12.2-16.2); Lymphocytes # 2.7 K/mm3 (0.7-4.5); Lymphocytes % 24.4 % (10-50); Mean Corpuscular HGB Conc 32.1 g/dL (31.8-35.4); Mean Corpuscular Hemoglobin 29.1 pg (27.0-31.2); Mean Corpuscular Volume 90.5 fl (81-99); Monocytes # 0.5 K/mm3 (0.1-1.0); Monocytes % 4.6 % (1.7-9.3); Neutrophils # 7.4 K/mm3 (1.8-7.8); Neutrophils % 66.7 % (37.0-80.0); Platelet Count 862 K/mm3 (142-424); Red Cell Distribution Width 14.4 % (11.5-17.5); White Blood Count 11.1 K/mm3 (4.8-10.8)
[2024-04-05 19:06] LABS: Alanine Aminotransferase 23 U/L (12-78); Albumin Level 3.4 g/dl (3.5-5.0); Albumin/Globulin Ratio 1.1 (1.1-1.8); Alkaline Phosphatase 147 U/L (38-126); Anion Gap 12.2 mEq/L (5-15); Aspartate Amino Transferase 25 U/L (14-36); Bilirubin,Total 0.6 mg/dl (0.2-1.3); Blood Urea Nitrogen 24 mg/dl (7-17); Calcium 9.1 mg/dl (8.4-10.2); Carbon Dioxide 29 mmol/L (22.0-30.0); Chloride 102 mmol/L (98-107); Estimated Glomerular Filt Rate 48 ml/min (>60); GFR (African American) 58 ML/MIN (>60); Globulin 3.2 g/dL (1.3-3.2); Glucose 100 mg/dl (74-100); Potassium 5.2 mmoL/L (3.5-5.1); Sodium 138 mmol/L (136-145); Total Protein,Serum 6.6 g/dl (6.3-8.2)
[2024-04-05 19:34] LABS: Thyroid Stimulating Hormone 0.44 uIU/mL (0.465-4.68)
[2024-04-05 19:54] LABS: Vitamin B12 990 pg/mL (239-931)
== END 2024-04-05 23:59 | disposition home or self-care (01) ==
LOC: LAB.DROPOF 04-06 07:41
PROVIDERS: PCP Family Medicine; Visit Provider Family Medicine
DX: N17.9 Acute kidney failure, unspecified (principal); R53.1 Weakness; N12 Tubulo-interstitial nephritis, not specified as acute or chronic; I35.8 Other nonrheumatic aortic valve disorders
CPT/HCPCS: 80053; 82607; 84443; 85025

== ENCOUNTER 2024-04-06 11:00 | Outpatient (CLI) | payer MEDICARE, SELFPAY | END 2024-04-06 23:59 | disposition home or self-care (01) | LOC: LAB.DROPOF 04-08 09:19 | PROVIDERS: PCP Family Medicine; Visit Provider Family Medicine | DX: N39.0 Urinary tract infection, site not specified (principal) | CPT/HCPCS: 87086 ==

== ENCOUNTER 2024-07-11 09:00 | Outpatient (CLI) | payer MEDICARE, MEDICAID, SELFPAY | END 2024-07-11 23:59 | disposition home or self-care (01) | LOC: LAB.DROPOF 07-14 09:16 | PROVIDERS: PCP Nurse Practitioner; Visit Provider Nurse Practitioner | DX: N10 Acute pyelonephritis (principal); Z87.440 Personal history of urinary (tract) infections | CPT/HCPCS: 87086; 87088; 87186 ==

== ENCOUNTER 2024-07-16 15:57 | Observation (INO) | payer MEDICARE, MEDICAID, SELFPAY ==
[2024-07-16] VITALS (8 sets, daily range): BP systolic 110–156; BP diastolic 59–79; PULSE 87–102; RESP 16–18; TEMP 36.5–36.7; O2SAT 94–99; BMI 25.4; BMI 29.2
--- NOTE | 2024-07-16 16:08 | HMH.EDGENADL ---
Discharge Plan Disposition Patient Disposition: Admitted Prescriptions Prescriptions: No Action atorvastatin 20 mg tablet 20 mg PO DAILY Qty: 90 0RF gabapentin 300 mg capsule 300 mg PO DAILY PRN (Reason: back pain) Qty: 30 2RF nortriptyline 25 mg capsule 25 mg PO BID Qty: 60 4RF ciprofloxacin HCl 500 mg tablet 500 mg PO BID 7 Days Qty: 14 0RF amlodipine 5 mg tablet 5 mg PO DAILY Qty: 90 0RF Referrals Follow up/Referrals: Kelly Kong APRN [Primary Care Provider] - See instructions Clinical Impressions Clinical Impression: Acute pyelonephritis, Hallucinations Instructions Patient Instructions: DI for Altered Mental Status Print Language Print Language: Polish Discharge ED Provider: Jorge Luis Galvan General Adult HPI General Chief complaint: Altered Mental Status Stated complaint: hallucinations, poss UTI Time Seen by Provider: 07/16/24 16:08 Mode of Arrival: Ambulatory Source of Information: Patient and Relative Description of Symptoms (Recalled from ER Triage Doc. by RN): Patient presents to triage with her niece. Per the niece, she states the patient was diagnosed with a UTI last week. States she was given an antibiotic shot and also a prescription. Niece states she has been having hallucinations. States she sees people who other do not see. States it davies when she urinates. Denies abdominal pain. Per the registration form, family also endorses they are concerned for dementia. History of Present Illness HPI narrative: This is a 78-year-old female with a history of recurrent UTIs presenting with hallucinations. Is accompanied by her niece who provides history. States that she was diagnosed with a UTI last week and given an antibiotic shot and then sent home with ciprofloxacin. Has been having hallucinations over the last several days. States that she is seeing things and people who are not there and is even called the police in the middle of the night because she believed someone was breaking into her house. Reports dysuria. Denies abdominal or flank pain. Denies fever. Additionally, patient lives alone and niece is concerned about her safety in this mental state. Related Data Home Medications ?Medication ?Instructions ?Recorded ?Confirmed famotidine 40 mg tablet 40 mg PO BID 07/16/24 07/16/24 meloxicam 15 mg tablet 15 mg PO DAILY 07/16/24 07/16/24 Previous Rx's ?Medication ?Instructions ?Recorded atorvastatin 20 mg tablet 20 mg PO DAILY hyperlipidemia #90 11/26/24 tabs gabapentin 300 mg capsule 300 mg PO DAILY PRN back pain #30 04/05/24 caps nortriptyline 25 mg capsule 25 mg PO BID neuropathy #60 caps 04/05/24 ciprofloxacin HCl 500 mg tablet 500 mg PO BID 7 days #14 tabs 07/11/24 amlodipine 5 mg tablet 5 mg PO DAILY BP #90 tabs 07/12/24 Allergies Allergy/AdvReac Type Severity Reaction Status Date / Time No Known Allergies Allergy Verified 07/16/24 17:31 [facility] Disclaimer: The information contained in this section may have been updated after the patient was seen, as this information can be updated by other users. Medical History Cellulitis of foot, right Aortic heart murmur Weakness Hearing loss UTI (urinary tract infection) Surgical History Hip joint replacement status Hx of total knee arthroplasty History of left hip replacement H/O knee surgery Family History Other Hypertension Social History Smoking Status: Never smoker alcohol intake: never current occupational status: retired Travel in the last 8 weeks: None Have you lived/traveled outside US in past 30 days?: No Contact w/someone who lives/traveled outside US past 30 days?: No Exposure to someone with infectious disease in past 14 days?: No Do you have a fever (greater than 100.4 F or 38 C)?: No Have you tested positive for COVID-19: No Exposed to someone with COVID-19 in past 14 days?: No Do you have a sore throat?: No Do you have a cough?: No Do you have any weakness?: No Do you have any diarrhea?: No Are you experiencing any unusual bleeding?: No Do you have any muscle aches/pain?: No Do you have any abdominal pain?: No Are you experiencing loss of taste or smell?: No Other Medical History Have you received the Flu Vaccine for this season: No Have you received the Pneumonia Vaccine: No ROS Obtained: Yes All systems reviewed & no additional complaints except as documented Physical Exam General General appearance: alert and in no apparent distress Eye Eye exam: Present normal appearance, PERRL and EOMI Respiratory Respiratory exam: Present normal lung sounds bilaterally; Absent respiratory distress Cardiovascular Cardiovascular exam: Present regular rate and normal rhythm Abdominal Exam Abdominal exam: Present soft and distention; Absent tenderness, guarding or rebound Comment: Left CVA tenderness Extremities Exam Extremities exam: Present normal inspection Neurological Exam Neurological exam: Present alert and oriented X3 Skin Skin exam: Present warm and dry Medical Decision Making Medical Records Medical records reviewed: Yes I reviewed the patient's medical records. Screening: Per USPSTF and CDC recommendations, given the prevalence of disease in our region, it is our hospital?s policy to screen for HIV and viral Hepatitis for all patients aged 18 and over and those with ongoing risk factors. MR Comment: Reviewed family medicine clinic visit note from 07/11/2024 notable for patient's past medical history of pyelonephritis. Additionally, urinalysis and culture from that time revealed E. coli sensitive to ceftriaxone. Osei Inquiry Pt receiving controlled substance: No Vital Signs: 07/16/24 16:00 07/16/24 16:25 07/16/24 16:30 Temperature 98.1 F Temperature Source Oral Pulse Rate 94 H 92 H Pulse Rate [Radial] 102 H Respiratory Rate 16 16 18 Blood Pressure 134/73 140/68 Blood Pressure [R Arm] 127/67 Blood Pressure Mean 93 90 Blood Pressure Mean [R Arm] 87 Blood Pressure Source [R Arm] Automatic Cuff 02 Sat by Pulse Oximetry 94 L 95 95 Oxygen Delivery Method Room Air 07/16/24 16:45 07/16/24 17:00 Temperature Temperature Source Pulse Rate 90 90 Pulse Rate [Radial] Respiratory Rate 18 18 Blood Pressure 110/59 L 126/66 Blood Pressure [R Arm] Blood Pressure Mean 76 86 Blood Pressure Mean [R Arm] Blood Pressure Source [R Arm] 02 Sat by Pulse Oximetry 96 96 Oxygen Delivery Method Lab Data Lab Results 07/16/24 16:15: Urine Color Yellow, Urine Appearance Clear, Urine pH 5.5, Ur Specific [place] >= 1.030, Urine Protein Negative, Urine Glucose (UA) Negative, Urine Ketones Negative, Urine Blood Negative, Urine Nitrate Negative, Urine Bilirubin Negative, Urine Urobilinogen 0.2, Ur Leukocyte Esterase Negative 07/16/24 16:21: WBC 9.2, RBC 4.47, Hgb 12.7, Hct 38.8, MCV 86.8, MCH 28.4, MCHC 32.7, RDW 14.6, Plt Count 290, MPV 9.3, Neut % (Auto) 54.5, Lymph % (Auto) 30.3, [place] % (Auto) 7.4, Eos % (Auto) 6.9, Baso % (Auto) 0.8, Neut # (Auto) 5.0, Lymph # (Auto) 2.8, [place] # (Auto) 0.7, Eos # (Auto) 0.6 H, Baso # (Auto) 0.1, Sodium 141, Potassium 3.8, Chloride 108 H, Carbon Dioxide 27, BUN 24 H, Creatinine 0.90, Estimated Creat Clear 45, Estimated GFR 61, Est GFR ( Amer) 74, Glucose 147 H, Calcium 9.3, Total Bilirubin 0.4, AST 31, ALT 23, Alkaline Phosphatase 93, Total Protein 7.6, Albumin 4.4, Globulin 3.2, Albumin/Globulin Ratio 1.4 07/16/24 16:21 07/16/24 16:21 Orders (Tests/Meds): ED MEDICATIONS Generic Name Dose Route Start Last Admin Trade Name Freq PRN Reason Stop Dose Admin Ceftriaxone Sodium 2 gm/ 100 mls @ 200 mls/hr 07/16/24 16:45 07/16/24 16:41 Sodium Chloride IV 07/26/24 16:44 200 mls/hr Q24H ZACARIAS Administration Discontinued Medications Generic Name Dose Route Start Last Admin Trade Name Freq PRN Reason Stop Dose Admin Lactated Ringer's 500 mls @ 999 mls/hr 07/16/24 16:19 07/16/24 16:41 Lactated Ringer's 500ml IV 07/16/24 16:49 999 mls/hr .Q31M ONE Administration Iopamidol 75 ml 07/16/24 17:17 07/16/24 17:18 Iopamidol-370 (76%);100ml Bottle IV 07/16/24 17:18 75 ml ONCE ONE Administration Sodium Chloride 10 ml 07/16/24 17:17 07/16/24 17:18 Sodium Chloride 0.9% 10ml Syr (Rad Only) IV 07/16/24 17:18 10 ml ONCE ONE Administration ORDERS Category Date Time Status CT abdomen pelvis w con Stat Cat Scan 07/16/24 16:18 Taken CBC w/Auto Diff [Complete Blood Count Auto Diff] Stat Lab 07/16/24 16:21 Completed CMP [Comprehensive Metabolic Panel] Stat Lab 07/16/24 16:21 Results Urinalysis and Microscopic Stat Lab 07/16/24 16:15 Results Blood Culture Stat Micro 07/16/24 16:21 Received Medical Decision Narrative: In summary, this 78-year-old female with a history of recurrent UTIs presents to the emergency department today with hallucinations. On initial evaluation patient is afebrile, hemodynamically stable, nontoxic-appearing, alert and oriented x 4 with a GCS of 15. Differential diagnosis includes but is not limited to UTI, pyelonephritis, perinephric abscess, electrolyte abnormality, medication reaction. Based on these concerns, I ordered CBC, CMP, urinalysis, CT abdomen pelvis with IV contrast. Patient received ceftriaxone 2 g for treatment. Had E. coli sensitive to ceftriaxone on most recent urine culture from 3/3 Labs personally reviewed demonstrate normal renal function and normal white blood cell count. Urinalysis unremarkable. Blood culture sent and pending. CT imaging personally interpreted demonstrates no significant left perinephric stranding or perinephric abscess. Consulted hospital medicine for admission in the setting of encephalopathy and persistent UTI/pyelonephritis. Patient ultimately admitted to their service. Critical Care Critical Care Time Critical Care Time: No
--- NOTE | 2024-07-16 16:18 | CT_ITS ---
PROCEDURE INFORMATION: Exam: CT Abdomen And Pelvis With Contrast Exam date and time: 07/16/2024 5:12 PM Age: 78 years old Clinical indication: Abdominal pain; Additional info: L flank pain, eval pyelo TECHNIQUE: Imaging protocol: Computed tomography of the abdomen and pelvis with contrast. Radiation optimization: All CT scans at this facility use at least one of these dose optimization techniques: automated exposure control; mA and/or kV adjustment per patient size (includes targeted exams where dose is matched to clinical indication); or iterative reconstruction. Contrast material: ISOVUE; Contrast volume: 75 ml; Contrast route: IV; COMPARISON: CR XR CHEST PORTABLE 03/26/2024 4:38 PM FINDINGS: Liver: Mild fatty liver infiltration. No mass. Gallbladder and biliary ducts: Normal. No calcified stones. No ductal dilation. Pancreas: Normal. No ductal dilation. Spleen: Normal. No splenomegaly. Adrenal glands: Normal. No mass. Kidneys and ureters: Right renal calculi measuring up to 0.6 cm. Irregular right renal cortical scarring. Unremarkable left kidney. No perinephric fat stranding. Stomach and bowel: Colonic diverticula without pericolonic fat stranding. Nonobstructive pattern. Appendix: Not visualized. Intraperitoneal space: Unremarkable. No free air. No significant fluid collection. Vasculature: Atherosclerotic calcification of aortoiliac arteries with infrarenal/juxtarenal abdominal aorta measuring 3.2 cm. Lymph nodes: Unremarkable. No enlarged lymph nodes. Urinary bladder: Unremarkable as visualized. Reproductive: Unremarkable as visualized. Bones/joints: Right hip arthroplasty/replacement. Soft tissues: Unremarkable. IMPRESSION: 1. No acute findings identified including CT evidence for acute pyelonephritis. 2. Nonobstructive right renal calculi with irregular cortical scarring. 3. Infrarenal/juxtarenal abdominal aortic aneurysm. 4. Colonic diverticulosis. 5. Mild fatty liver infiltration.
[2024-07-16 16:33] LABS: Basophils # 0.1 K/mm3 (0-0.2); Basophils % 0.8 % (0.1-2.0); Eosinophils # 0.6 K/mm3 (0.0-0.4); Eosinophils % 6.9 % (0.1-12.0); Hematocrit 38.8 % (37.0-47.0); Hemoglobin 12.7 g/dL (12.2-16.2); Lymphocytes # 2.8 K/mm3 (0.7-4.5); Lymphocytes % 30.3 % (10-50); Mean Corpuscular HGB Conc 32.7 g/dL (31.8-35.4); Mean Corpuscular Hemoglobin 28.4 pg (27.0-31.2); Mean Corpuscular Volume 86.8 fl (81-99); Mean Platelet Volume 9.3 fl (7.4-10.4); Monocytes # 0.7 K/mm3 (0.1-1.0); Monocytes % 7.4 % (1.7-9.3); Neutrophils % 54.5 % (37.0-80.0); Platelet Count 290 K/mm3 (142-424); Red Blood Count 4.47 M/mm3 (4.20-5.40); Red Cell Distribution Width 14.6 % (11.5-17.5); White Blood Count 9.2 K/mm3 (4.8-10.8)
[2024-07-16 16:38] LABS: Microscopic, Urine URINE MICROSCOPIC (MICROSCOPIC)
[2024-07-16 16:40] LABS: Appearance,Urine CLEAR (Clear); Bilirubin,Urine Negative (Negative); Blood, Urine Negative (Negative); Color,Urine YELLOW (Yellow); Glucose,Urine (UA) Negative (Negative); Ketones,Urine Negative (Negative); Leukocyte Esterase,Urine Negative (Negative); Nitrate,Urine Negative (Negative); PH,Urine 5.5 (5.0-8.5); Protein,Urine Negative (Negative); Specific Gravity, Urine >= 1.030 (1.005-1.030); Urobilinogen,Urine 0.2 EU/dl (0.2)
[2024-07-16] MEDS: CEFTRIAXONE SODIUM 2 GM in 0.9 % SODIUM CHLORIDE 100 ML IV (16:41)
[2024-07-16] MEDS: RINGERS SOLUTION,LACTATED 500 ML 999 ML IV (16:41)
[2024-07-16 16:56] LABS: Albumin Level 4.4 g/dl (3.5-5.0); Chloride 108 mmol/L (98-107); Potassium 3.8 mmoL/L (3.5-5.1); Sodium 141 mmol/L (136-145)
[2024-07-16 16:59] LABS: Alanine Aminotransferase 23 U/L (12-78); Albumin/Globulin Ratio 1.4 (1.1-1.8); Alkaline Phosphatase 93 U/L (38-126); Aspartate Amino Transferase 31 U/L (14-36); Bilirubin,Total 0.4 mg/dl (0.2-1.3); Blood Urea Nitrogen 24 mg/dl (7-17); Calcium 9.3 mg/dl (8.4-10.2); Creatinine Clearance Estimated 45 mL/min (50-200); Estimated Glomerular Filt Rate 61 ml/min (>60); GFR (African American) 74 ML/MIN (>60); Globulin 3.2 g/dL (1.3-3.2); Glucose 147 mg/dl (74-100); Total Protein,Serum 7.6 g/dl (6.3-8.2)
[2024-07-16] MEDS: SODIUM CHLORIDE 0.9% 10ML SYR (RAD ONLY) 10 ML IV (17:18)
[2024-07-16] MEDS: IOPAMIDOL-370 (76%);100ML BOTTLE 75 ML IV (17:18)
--- NOTE | 2024-07-16 17:33 | PC.NURSE ---
spoke with [facility] sup for bed assignment
--- NOTE | 2024-07-16 17:38 | EXP.HP ---
History of Present Illness *Admission Date: 07/16/24 *Reason for visit:: Hallucinations, confusion *History of present illness: 78-year-old female with history significant for hypertension and macular degeneration who presented with concern for possible visual hallucinations. She was diagnosed with a UTI last week that is sensitive to Cipro and ceftriaxone. She was started on ciprofloxacin and has taken 5 days of antibiotics. Family who is with her states that she has been having hallucinations/seeing people and activities that others do not see. Patient is very adamant that she has been seeing track, was moving trees in her yard. Also adamant that she has had 2 people with 6 kids (2 sets of triplets) living in her upstairs and entering her house through the window. At the same time she will answer her name, date of , where she is in recent historical events correctly. In the ER, there was significant concern for possible hallucinations as a medication side effect or symptom of infection. Workup with normal white count, normal kidney function. Urinalysis obtained with no leuk esterase,. Medicine consulted for further evaluation. Received a dose of ceftriaxone in the ED. Review of chart shows E. coli obtained on the second sensitive to ciprofloxacin and ceftriaxone. Hemodynamically stable on room air. No fever. On arrival to the floor, history provided by patient and family. Family states they are concerned for possible dementia. Patient reports having very poor vision, significant macular degeneration for which she gets shots in her eyes occasionally. She lives by herself. Knows her surroundings and feels comfortable at home by herself. Has a neighbor that checks on her daily. Has no acute complaints. Gets around with a walker and a cane. [facility] Disclaimer: The information contained in this section may have been updated after the patient was seen, as this information can be updated by other users. Medical History (Updated 07/16/24 @ 21:42 by Carl Underwood MD) GERD (gastroesophageal reflux disease) HLD (hyperlipidemia) HTN (hypertension) Aortic heart murmur Weakness Hearing loss UTI (urinary tract infection) Cellulitis of foot, right Surgical History Hip joint replacement status Hx of total knee arthroplasty History of left hip replacement H/O knee surgery Family History Other Hypertension Social History Smoking Status: Never smoker alcohol intake: never current occupational status: retired Travel in the last 8 weeks: None Have you lived/traveled outside US in past 30 days?: No Contact w/someone who lives/traveled outside US past 30 days?: No Exposure to someone with infectious disease in past 14 days?: No Do you have a fever (greater than 100.4 F or 38 C)?: No Have you tested positive for COVID-19: No Exposed to someone with COVID-19 in past 14 days?: No Do you have a sore throat?: No Do you have a cough?: No Do you have any weakness?: No Do you have any diarrhea?: No Are you experiencing any unusual bleeding?: No Do you have any muscle aches/pain?: No Do you have any abdominal pain?: No Are you experiencing loss of taste or smell?: No Other Medical History Have you received the Flu Vaccine for this season: No Have you received the Pneumonia Vaccine: No Review of Systems Review of Systems Review of systems (narrative): 14 point review of systems performed, pertinent positives and negatives as per HPI Meds Home Medications and Allergies Home Medications ?Medication ?Instructions ?Recorded ?Confirmed ?Type amlodipine 5 mg tablet 5 mg PO DAILY BP #90 tabs 07/12/24 07/16/24 Rx atorvastatin 20 mg tablet 20 mg PO DAILY 07/16/24 07/16/24 History famotidine 40 mg tablet 40 mg PO BID 07/16/24 07/16/24 History meloxicam 15 mg tablet 15 mg PO DAILY 07/16/24 07/16/24 History nortriptyline 25 mg capsule 25 mg PO BID 07/16/24 07/16/24 History vit C 250 mg-vit E 90 mg-zinc 40 1 tab PO BID 07/16/24 07/16/24 History mg-copper 1 bi-hartec-skrhev capsule (PreserVision AREDS-2) New Prescriptions to Start Prescriptions: Allergies Allergy/AdvReac Type Severity Reaction Status Date / Time No Known Allergies Allergy Verified 07/16/24 17:31 Exam Data for Last 24 hours Vital signs and Labs for Last 24 Hours: Temp Pulse Resp BP Pulse Ox O2 Del Method 98.1 F 90 18 126/66 96 Room Air 07/16/24 16:00 07/16/24 17:00 07/16/24 17:00 07/16/24 17:00 07/16/24 17:00 07/16/24 16:00 Laboratory Results - last 24 hr 07/16/24 16:15: Urine Color Yellow, Urine Appearance Clear, Urine pH 5.5, Ur Specific [place] >= 1.030, Urine Protein Negative, Urine Glucose (UA) Negative, Urine Ketones Negative, Urine Blood Negative, Urine Nitrate Negative, Urine Bilirubin Negative, Urine Urobilinogen 0.2, Ur Leukocyte Esterase Negative 07/16/24 16:21: WBC 9.2, RBC 4.47, Hgb 12.7, Hct 38.8, MCV 86.8, MCH 28.4, MCHC 32.7, RDW 14.6, Plt Count 290, MPV 9.3, Neut % (Auto) 54.5, Lymph % (Auto) 30.3, [place] % (Auto) 7.4, Eos % (Auto) 6.9, Baso % (Auto) 0.8, Neut # (Auto) 5.0, Lymph # (Auto) 2.8, [place] # (Auto) 0.7, Eos # (Auto) 0.6 H, Baso # (Auto) 0.1, Sodium 141, Potassium 3.8, Chloride 108 H, Carbon Dioxide 27, BUN 24 H, Creatinine 0.90, Estimated Creat Clear 45, Estimated GFR 61, Est GFR ( Amer) 74, Glucose 147 H, Calcium 9.3, Total Bilirubin 0.4, AST 31, ALT 23, Alkaline Phosphatase 93, Total Protein 7.6, Albumin 4.4, Globulin 3.2, Albumin/Globulin Ratio 1.4 I & O for Last 24 hours: Intake & Output 07/13/24 07/14/24 07/15/24 07/16/24 23:59 23:59 23:59 23:59 Weight 58.967 kg Constitutional Constitutional: no acute distress, average body habitus, chronically ill appearing and cooperative *Routine HEENT Exam Head: Present normocephalic Eye: Present EOMI and PERRL ENT: Present mucous membranes moist *Routine Neck Exam Neck: Present supple; Absent lymphadenopathy *Routine Respiratory Exam Respiratory: Present CTA bilaterally; Absent rhonchi, wheezes or crackles *Routine Cardiovascular Exam Cardiovascular: Present RRR *Routine Abdominal Exam Abdominal: Present soft and normoactive bowel sounds; Absent tenderness Comments: Mild right-sided CVA tenderness. *Routine Rectal Exam Rectal:: deferred *Routine Genitalia Exam Genitalia:: deferred *Routine Extremities Exam Extremities: Absent cyanosis, clubbing or edema *Routine Skin Exam Skin: Present intact and warm; Absent rash *Routine Neurological Exam Neurological: Present alert, oriented X3, moving all extremities and hearing grossly intact; Absent altered mental status or vision grossly intact Comments: Unable to see print, can see general shapes and silhouettes. Vision grossly impaired. Assessment and Plan *Assessment and plan (1) Hallucinations: Status: Acute Category: Medical Code(s): R44.3 - Hallucinations, unspecified (2) UTI (urinary tract infection): Status: Acute Category: Medical Code(s): N39.0 - Urinary tract infection, site not specified (3) Weakness: Status: Acute Category: Medical Code(s): R53.1 - Weakness (4) Macular degeneration: Status: Chronic Category: Medical Code(s): H35.30 - Unspecified macular degeneration Plan 78-year-old female with hyperlipidemia, hypertension, macular degeneration who presents with concern for hallucinations in the setting of UTI. Discussed case with ER physician, request admission for monitoring and medication adjustment. I agreed to admit for further care. On discussion with family, patient appears surprisingly alert but then reports episodes of bizarre visions that she is convinced are real including people driving track O's through her yard and family living in her upstairs with 2 sets of triplets. Hallucinations UTI -Diagnosed with UTI from E. coli on 07/10, sensitive to ciprofloxacin was started on Cipro. Has taken 5 days of antibiotics. Has been having more abnormal visions. She is very adamant no real. Family and other reliable sources have not seen the same things. Concern in the ER for possible medication side effect, versus secondary to UTI versus change in mentation. -Received 1 g ceftriaxone in the ER, continue daily for now. Will discontinue ciprofloxacin. Will complete 7 days of antibiotics total. Today makes day 6 of 7 -Urinalysis improved. White count normal. UTI appears to be resolving. Low concern UTI as source of patient's visual disturbances. -Repeat CBC, CMP, magnesium ordered for the morning. White count on presentation of 9.2, kidney function normal with BUN 24, creatinine 0.9. 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 Her visual disturbances are highly consistent with hallucinations secondary to her macular degeneration. When asked other questions about orientation, patient appears oriented to self, situation, time, and is aware of what is going on. Able to provide appropriate history. Potential medications could be her nortriptyline or famotidine (H2 eric). Will hold nortriptyline at this time due to risk for anticholinergic symptoms and risk of confusion. Monitor for improvement overnight. Reviewed CT head from March 2024. Does show generalized atrophy and chronic periventricular ischemic changes consistent with microvascular disease. Patient has risk factors for mild cognitive impairment and dementia. Will benefit from outpatient eval with neuropsych testing to evaluate for dementia/cognitive impairment. At this time however patient appears oriented and shows capacity to make decisions and understand her current condition. Continue amlodipine 5 mg daily for blood pressure. Continue Lipitor 20 mg nightly for hyperlipidemia Continue famotidine 40 mg twice daily for GERD Full code Regular diet
[2024-07-16 18:06] LABS: Calcium Oxalate Crystals,Urine 1+ /lpf
[2024-07-16 18:07] LABS: Bacteria,Urine Trace /lpf
[2024-07-16 18:10] LABS: Anion Gap 9.8 mEq/L (5-15); Carbon Dioxide 27 mmol/L (22.0-30.0)
[2024-07-17] VITALS: BP 117/68; PULSE 89; RESP 16; TEMP 36.7; O2SAT 94
[2024-07-17 04:00] VITALS: BP 135/75; PULSE 86; RESP 16; TEMP 36.6; O2SAT 97; BMI 29.9
[2024-07-17] MEDS: ACETAMINOPHEN 325MG TAB 650 MG PO (06:00)
--- NOTE | 2024-07-17 06:48 | PC.NURSE ---
Pt is alert and oriented x4 and tolerating RA well at this time. Pt denies pain and has slept well this shift. Pt denies hallucinations and this nurse has not witnessed. Pt has had no acute changes this shift to note.
[2024-07-17 08:00] VITALS: BP 128/66; PULSE 81; RESP 16; TEMP 36.6; O2SAT 97
[2024-07-17] MEDS: FAMOTIDINE 20MG TABLET 40 MG PO (08:33)
[2024-07-17 09:10] LABS: Basophils # 0.1 K/mm3 (0-0.2); Basophils % 0.7 % (0.1-2.0); Eosinophils # 0.8 K/mm3 (0.0-0.4); Eosinophils % 10.7 % (0.1-12.0); Hematocrit 35.8 % (37.0-47.0); Lymphocytes # 2.7 K/mm3 (0.7-4.5); Lymphocytes % 38.8 % (10-50); Mean Corpuscular HGB Conc 31.8 g/dL (31.8-35.4); Mean Corpuscular Hemoglobin 28.2 pg (27.0-31.2); Mean Corpuscular Volume 88.6 fl (81-99); Mean Platelet Volume 9.2 fl (7.4-10.4); Monocytes # 0.6 K/mm3 (0.1-1.0); Monocytes % 8.8 % (1.7-9.3); Neutrophils # 2.9 K/mm3 (1.8-7.8); Neutrophils % 40.9 % (37.0-80.0); Platelet Count 283 K/mm3 (142-424); Red Blood Count 4.04 M/mm3 (4.20-5.40); Red Cell Distribution Width 14.7 % (11.5-17.5)
[2024-07-17 09:35] LABS: Alanine Aminotransferase 19 U/L (12-78); Albumin Level 3.7 g/dl (3.5-5.0); Albumin/Globulin Ratio 1.3 (1.1-1.8); Alkaline Phosphatase 79 U/L (38-126); Anion Gap 8.1 mEq/L (5-15); Aspartate Amino Transferase 26 U/L (14-36); Bilirubin,Total 0.2 mg/dl (0.2-1.3); Blood Urea Nitrogen 17 mg/dl (7-17); Calcium 8.7 mg/dl (8.4-10.2); Carbon Dioxide 27 mmol/L (22.0-30.0); Chloride 108 mmol/L (98-107); Creatinine Clearance Estimated 52 mL/min (50-200); Estimated Glomerular Filt Rate 61 ml/min (>60); GFR (African American) 74 ML/MIN (>60); Globulin 2.8 g/dL (1.3-3.2); Glucose 97 mg/dl (74-100); Magnesium 1.8 mg/dl (1.6-2.3); Potassium 4.1 mmoL/L (3.5-5.1); Sodium 139 mmol/L (136-145); Total Protein,Serum 6.5 g/dl (6.3-8.2)
--- NOTE | 2024-07-17 10:13 | EXP.DC.SUM ---
General Admission date:: 07/16/24 Discharge date: 07/17/24 HPI HPI HPI: 78-year-old female with history significant for hypertension and macular degeneration who presented with concern for possible visual hallucinations. She was diagnosed with a UTI last week that is sensitive to Cipro and ceftriaxone. She was started on ciprofloxacin and has taken 5 days of antibiotics. Family who is with her states that she has been having hallucinations/seeing people and activities that others do not see. Patient is very adamant that she has been seeing track, was moving trees in her yard. Also adamant that she has had 2 people with 6 kids (2 sets of triplets) living in her upstairs and entering her house through the window. At the same time she will answer her name, date of , where she is in recent historical events correctly. In the ER, there was significant concern for possible hallucinations as a medication side effect or symptom of infection. Workup with normal white count, normal kidney function. Urinalysis obtained with no leuk esterase,. Medicine consulted for further evaluation. Received a dose of ceftriaxone in the ED. Review of chart shows E. coli obtained on the second sensitive to ciprofloxacin and ceftriaxone. Hemodynamically stable on room air. No fever. On arrival to the floor, history provided by patient and family. Family states they are concerned for possible dementia. Patient reports having very poor vision, significant macular degeneration for which she gets shots in her eyes occasionally. She lives by herself. Knows her surroundings and feels comfortable at home by herself. Has a neighbor that checks on her daily. Has no acute complaints. Gets around with a walker and a cane. Hospital Course Hospital Course Hospital Course: 78-year-old female with hyperlipidemia, hypertension, macular degeneration who presents with concern for hallucinations in the setting of UTI. Discussed case with ER physician, request admission for monitoring and medication adjustment. I agreed to admit for further care. On discussion with family, patient appears surprisingly alert but then reports episodes of bizarre visions that she is convinced are real including people driving track O's through her yard and family living in her upstairs with 2 sets of triplets. Patient had no hallucinations or difficulties overnight. Alert and oriented on exam in the morning. Medically stable to discharge home. Needs further evaluation as an outpatient by PCP. Continue to encourage support at home with aides coming in to assist if possible several times a week as this would help benefit patient and her care. Problems addressed as follows: Hallucinations UTI -Diagnosed with UTI from E. coli on 07/10, sensitive to ciprofloxacin was started on Cipro. Has taken 5 days of antibiotics. Has been having more abnormal visions. She is very adamant they are real. Family and other reliable sources have not seen the same things. Concern in the ER for possible medication side effect, versus secondary to UTI versus change in mentation. Treated with 2 doses of ceftriaxone to complete 7 days total of antibiotics for UTI. On arrival however her urine was normal. Labs on morning of discharge are normal with normal white count and kidney function. Urinalysis grossly normal. Low concern that her symptoms are related to UTI. May be secondary to ciprofloxacin or her nortriptyline causing side effects with anticholinergic effects. Additionally, most concerned for symptom of her macular degeneration. 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 Her visual disturbances are highly consistent with hallucinations secondary to her macular degeneration. When asked other questions about orientation, patient appears oriented to self, situation, time, and is aware of what is going on. Able to provide appropriate history. Hold nortriptyline at this time to avoid medication side effect. Reviewed CT head from March 2024. Does show generalized atrophy and chronic periventricular ischemic changes consistent with microvascular disease. Patient has risk factors for mild cognitive impairment and dementia. Will benefit from outpatient eval with neuropsych testing to evaluate for dementia/cognitive impairment. At this time however patient appears oriented and shows capacity to make decisions and understand her current condition. Continue amlodipine 5 mg daily for blood pressure. Continue Lipitor 20 mg nightly for hyperlipidemia Continue famotidine 40 mg twice daily for GERD Stable to discharge home Exam Data for Last 24 hours Vital signs and Labs for Last 24 Hours: Temp Pulse Resp BP Pulse Ox O2 Del Method 97.9 F 81 16 128/66 97 Room Air 07/17/24 08:00 07/17/24 08:00 07/17/24 08:00 07/17/24 08:00 07/17/24 08:00 07/17/24 06:46 Laboratory Results - last 24 hr 07/16/24 16:15: Urine Color Yellow, Urine Appearance Clear, Urine pH 5.5, Ur Specific [place] >= 1.030, Urine Protein Negative, Urine Glucose (UA) Negative, Urine Ketones Negative, Urine Blood Negative, Urine Nitrate Negative, Urine Bilirubin Negative, Urine Urobilinogen 0.2, Ur Leukocyte Esterase Negative, Urine RBC None, Urine WBC 3-5, Ur Squamous Epith Cells 3-5, Calcium Oxalate Crystal 1+, Urine Bacteria Trace 07/16/24 16:21: WBC 9.2, RBC 4.47, Hgb 12.7, Hct 38.8, MCV 86.8, MCH 28.4, MCHC 32.7, RDW 14.6, Plt Count 290, MPV 9.3, Neut % (Auto) 54.5, Lymph % (Auto) 30.3, [place] % (Auto) 7.4, Eos % (Auto) 6.9, Baso % (Auto) 0.8, Neut # (Auto) 5.0, Lymph # (Auto) 2.8, [place] # (Auto) 0.7, Eos # (Auto) 0.6 H, Baso # (Auto) 0.1, Sodium 141, Potassium 3.8, Chloride 108 H, Carbon Dioxide 27, Anion Gap 9.8, BUN 24 H, Creatinine 0.90, Estimated Creat Clear 45, Estimated GFR 61, Est GFR ( Amer) 74, Glucose 147 H, Calcium 9.3, Total Bilirubin 0.4, AST 31, ALT 23, Alkaline Phosphatase 93, Total Protein 7.6, Albumin 4.4, Globulin 3.2, Albumin/Globulin Ratio 1.4 07/17/24 08:21: WBC 7.0, RBC 4.04 L, Hct 35.8 L, MCV 88.6, MCH 28.2, MCHC 31.8, RDW 14.7, Plt Count 283, MPV 9.2, Neut % (Auto) 40.9, Lymph % (Auto) 38.8, [place] % (Auto) 8.8, Eos % (Auto) 10.7, Baso % (Auto) 0.7, Neut # (Auto) 2.9, Lymph # (Auto) 2.7, [place] # (Auto) 0.6, Eos # (Auto) 0.8 H, Baso # (Auto) 0.1, Sodium 139, Potassium 4.1, Chloride 108 H, Carbon Dioxide 27, Anion Gap 8.1, BUN 17 D, Creatinine 0.90, Estimated Creat Clear 52, Estimated GFR 61, Est GFR ( Amer) 74, Glucose 97 D, Calcium 8.7, Magnesium 1.8, Total Bilirubin 0.2, AST 26, ALT 19, Alkaline Phosphatase 79, Total Protein 6.5, Albumin 3.7 D, Globulin 2.8, Albumin/Globulin Ratio 1.3 I & O for Last 24 hours: Intake & Output 07/14/24 07/15/24 07/16/24 07/18/24 23:59 23:59 23:59 00:59 Intake Total 240 / 240 Output Total 0 / 0 Balance 240 / 240 Weight 68.039 kg 69.173 kg Constitutional Constitutional: no acute distress, average body habitus and chronically ill appearing *Routine HEENT Exam Head: Present normocephalic Eye: Present EOMI and PERRL ENT: Present mucous membranes moist *Routine Neck Exam Neck: Present supple; Absent lymphadenopathy *Routine Respiratory Exam Respiratory: Present CTA bilaterally *Routine Cardiovascular Exam Cardiovascular: Present RRR *Routine Abdominal Exam Abdominal: Present soft and normoactive bowel sounds; Absent tenderness *Routine Rectal Exam Patient deferred: visual exam *Routine Exam Patient deferred: external exam *Routine Extremities Exam Extremities: Absent cyanosis, clubbing or edema *Routine Skin Exam Skin: Present warm; Absent rash *Routine Neurological Exam Neurological: Present alert, oriented X3 and moving all extremities; Absent altered mental status or vision grossly intact Comments: Vision impairment Results Data Completed and Pending Labs on day of discharge: Labs from last 24 hours 07/17/24 07/16/24 07/16/24 08:21 16:21 16:15 WBC 7.0 9.2 RBC 4.04 L 4.47 Hgb 12.7 Hct 35.8 L 38.8 MCV 88.6 86.8 MCH 28.2 28.4 MCHC 31.8 32.7 RDW 14.7 14.6 Plt Count 283 290 MPV 9.2 9.3 Neut % (Auto) 40.9 54.5 Lymph % (Auto) 38.8 30.3 [place] % (Auto) 8.8 7.4 Eos % (Auto) 10.7 6.9 Baso % (Auto) 0.7 0.8 Neut # (Auto) 2.9 5.0 Lymph # (Auto) 2.7 2.8 [place] # (Auto) 0.6 0.7 Eos # (Auto) 0.8 H 0.6 H Baso # (Auto) 0.1 0.1 Sodium 139 141 Potassium 4.1 3.8 Chloride 108 H 108 H Carbon Dioxide 27 27 Anion Gap 8.1 9.8 BUN 17 D 24 H Creatinine 0.90 0.90 Estimated Creat Clear 52 45 Estimated GFR 61 61 Est GFR ( Amer) 74 74 Glucose 97 D 147 H Calcium 8.7 9.3 Magnesium 1.8 Total Bilirubin 0.2 0.4 AST 26 31 ALT 19 23 Alkaline Phosphatase 79 93 Total Protein 6.5 7.6 Albumin 3.7 D 4.4 Globulin 2.8 3.2 Albumin/Globulin Ratio 1.3 1.4 Urine Color Yellow Urine Appearance Clear Urine pH 5.5 Ur Specific [place] >= 1.030 Urine Protein Negative Urine Glucose (UA) Negative Urine Ketones Negative Urine Blood Negative Urine Nitrate Negative Urine Bilirubin Negative Urine Urobilinogen 0.2 Ur Leukocyte Esterase Negative Urine RBC None Urine WBC 3-5 Ur Squamous Epith Cells 3-5 Calcium Oxalate Crystal 1+ Urine Bacteria Trace DS: Diagnosis Discharge Diagnosis (1) Hallucinations: Status: Acute Code(s): R44.3 - Hallucinations, unspecified (2) UTI (urinary tract infection): Status: Acute Code(s): N39.0 - Urinary tract infection, site not specified (3) Weakness: Status: Acute Code(s): R53.1 - Weakness (4) Macular degeneration: Status: Chronic Code(s): H35.30 - Unspecified macular degeneration Meds Home Medications and Allergies Home Medications ?Medication ?Instructions ?Recorded ?Confirmed ?Type amlodipine 5 mg tablet 5 mg PO DAILY BP #90 tabs 07/12/24 07/16/24 Rx atorvastatin 20 mg tablet 20 mg PO HS 07/16/24 07/17/24 History famotidine 40 mg tablet 40 mg PO BID 07/16/24 07/16/24 History meloxicam 15 mg tablet 15 mg PO DAILY 07/16/24 07/16/24 History vit C 250 mg-vit E 90 mg-zinc 40 1 tab PO BID 07/16/24 07/16/24 History mg-copper 1 [id number] capsule (PreserVision AREDS-2) New Prescriptions to Start Prescriptions: Allergies Allergy/AdvReac Type Severity Reaction Status Date / Time No Known Allergies Allergy Verified 07/16/24 17:31 Discharge Plan Disposition Patient Disposition: Home, Self-Care Condition: Fair Follow up Plan Follow up with: Kelly Kogn APRN [Primary Care Provider] - Enter time for follow up (Please call office Thursday for follow up appointment.) Prescriptions/Medication Reconciliation: Continued amlodipine 5 mg tablet 5 mg PO DAILY Qty: 90 0RF meloxicam 15 mg tablet 15 mg PO DAILY Patient Comments: TAKE 1 TABLET BY MOUTH DAILY famotidine 40 mg tablet 40 mg PO BID Patient Comments: TAKE 1 TABLET BY MOUTH TWICE DAILY atorvastatin 20 mg Tablet 20 mg PO HS PreserVision AREDS-2 250-90-40-1 mg Capsule 1 tab PO BID Discontinued nortriptyline 25 mg Capsule 25 mg PO BID Problem Reconciliation Problems Reviewed?: Yes Patient Discharge Instructions ACTIVITY: Continue current activity DIET: continue same diet Patient Instructions: DI for Urinary Tract Infection (UTI), DI for Encephalopathy Print Language: Moldovan Providers Primary Care Provider: Kelly Kong Admit Provider: Carl Underwood Attending Provider: Carl Underwood
[2024-07-17 10:19] LABS: Hemoglobin 11.4 g/dL (12.2-16.2)
[2024-07-17] MEDS: CEFTRIAXONE 1 GM 1 GM in 0.9 % SODIUM CHLORIDE 50 ML IV (11:22)
== END 2024-07-17 14:00 | disposition home or self-care (01) ==
LOC: ER 17:32 → 2ND 17:38
PROVIDERS: Admitting Provider Internal Medicine Adolescent Medicine; Emergency Provider Student in an Organized Health Care Education/Training Program; PCP Nurse Practitioner; Visit Provider Internal Medicine Adolescent Medicine
DX: R44.3 Hallucinations, unspecified (principal); H53.16 Psychophysical visual disturbances; H35.30 Unspecified macular degeneration; K21.9 Gastro-esophageal reflux disease without esophagitis; I10 Essential (primary) hypertension; E78.5 Hyperlipidemia, unspecified; I35.8 Other nonrheumatic aortic valve disorders; Z74.2 Need for assistance at home and no other household member able to render care; Z99.89 Dependence on other enabling machines and devices; Z60.2 Problems related to living alone; Z79.02 Long term (current) use of antithrombotics/antiplatelets; Z79.899 Other long term (current) drug therapy
CPT/HCPCS: 74177; 80053; 81001; 83735; 85025; 87040; 99285; G0378; J0696; J7120; Q9967

== ENCOUNTER 2024-08-09 12:25 | Outpatient (CLI) | payer MEDICARE, MEDICAID, SELFPAY ==
[2024-08-09 20:22] LABS: Anion Gap 10.1 mEq/L (5-15); Blood Urea Nitrogen 19 mg/dl (7-17); Calcium 9.3 mg/dl (8.4-10.2); Carbon Dioxide 30 mmol/L (22.0-30.0); Chloride 103 mmol/L (98-107); Estimated Glomerular Filt Rate 81 ml/min (>60); GFR (African American) 98 ML/MIN (>60); Glucose 80 mg/dl (74-100); Potassium 4.1 mmoL/L (3.5-5.1); Sodium 139 mmol/L (136-145)
[2024-08-09 20:51] LABS: Thyroid Stimulating Hormone 0.36 uIU/mL (0.465-4.68)
== END 2024-08-09 23:59 | disposition home or self-care (01) ==
LOC: LAB.DROPOF 08-10 13:54
PROVIDERS: PCP Family Medicine; Visit Provider Family Medicine
DX: R44.3 Hallucinations, unspecified (principal); I35.8 Other nonrheumatic aortic valve disorders; I65.29 Occlusion and stenosis of unspecified carotid artery; R94.6 Abnormal results of thyroid function studies
CPT/HCPCS: 80048; 84443

== ENCOUNTER 2024-08-23 12:30 | Outpatient (CLI) | payer MEDICARE, MEDICAID, SELFPAY ==
[2024-08-23 18:05] LABS: Lyme Ab IgM CIA ND; Lyme IgG CIA ND
[2024-08-23 19:56] LABS: Erythrocyte Sedimentation Rate 18 mm/hr (0-30)
[2024-08-25 18:09] LABS: Lyme Ab CIA Negative (Negative)
== END 2024-08-23 23:59 | disposition home or self-care (01) ==
LOC: LAB.DROPOF 08-24 12:00
PROVIDERS: PCP Family Medicine; Visit Provider Family Medicine
DX: R44.3 Hallucinations, unspecified (principal)
CPT/HCPCS: 85651; 86618

== ENCOUNTER 2024-08-25 11:28 | Outpatient (CLI) | payer MEDICARE, MEDICAID, SELFPAY ==
--- NOTE | 2024-08-25 11:00 | US_ITS ---
FINAL REPORT TECHNIQUE: Sonographic images of the thyroid were obtained. CLINICAL HISTORY: Low TSH level; please schedule on 08/25 COMPARISON: None FINDINGS: THYROID ULTRASOUND The right thyroid gland measures 4.9 x 1.7 x 1.7 cm. The left thyroid gland measures 4.4 x 2.0 x 1.6 cm. The thyroid parenchyma is heterogeneous. There are a multitude of subcentimeter nodules bilaterally. Several of these nodules are solid and hypoechoic consistent with TI-RADS 4 lesions but they are less than 1 cm in size. On the left, there is a dominant 1.2 cm nodule which is anechoic consistent with a colloid cyst. IMPRESSION: Multitude of subcentimeter TI-RADS 3 and TI-RADS 4 nodules. The pattern is consistent with a multinodular goiter. No follow-up required per TI-RADS criteria. Reviewed, Interpreted and Dictated by Anam Villafuerte MD Transcribed by Chelle Wheeler Authenticated and [facility]
--- NOTE | 2024-08-25 13:00 | CA_ITS ---
FINAL REPORT TECHNIQUE: Real-time imaging was performed of the extracranial carotid arteries in transverse and longitudinal planes with color duplex evaluation of blood flow velocity. Spectral analysis was performed. The cervicovertebral arteries were also examined. Stenosis evaluation based on elevated velocity criteria. CLINICAL HISTORY: HTN, ex smoker, lightheaded, hallucinations x 1-2 months. FINDINGS: FINDINGS: RIGHT CAROTID: CCA PSV: 73 cm/sec ICA PSV: 63 cm/sec ECA PSV: 58 cm/sec ICA/CCA systolic flow velocity ratio: 0.87 Mild atherosclerotic plaque is noted. Narrowing is classified in the less than 50% category. LEFT CAROTID: CCA PSV: 110 cm/sec ICA PSV: 73 cm/sec ECA PSV: 98 cm/sec ICA/CCA systolic flow velocity ratio: 0.87 Mild atherosclerotic plaque is noted. Narrowing is classified in the less than 50% category. VERTEBRALS: Vertebral arteries are patent with antegrade flow and expected spectral waveforms. IMPRESSION: No hemodynamically significant carotid artery stenosis. Patent vertebral arteries. Reviewed, Interpreted and Dictated by Anam Villafuerte MD Transcribed by Shreya Omer Authenticated and [facility]
--- NOTE | 2024-08-25 13:45 | MR_ITS ---
FINAL REPORT TECHNIQUE: Multiplanar MR, without and with contrast administration CLINICAL HISTORY: hallucinatons [id number]. DIZZINESS. MEMORY LOSS. FINDINGS: The midline structures are intact. There is mild atrophy. There is mild abnormal signal in the ventricular and subcortical white matter. There is also mild abnormal signal in the left insular cortex seen on images 11 and 12 of series 6. There is no associated restricted diffusion. No edema or hemorrhage is seen. Major vessel flow-voids are intact. The 7th and 8th nerve root complexes are intact. The paranasal sinuses are well aerated. Following contrast administration, there is no mass or abnormal parenchymal enhancement. IMPRESSION: Abnormal signal in the left insular cortex of uncertain significance. This does not appear to be related to acute ischemia, may be related to sequela of prior ischemia. Minimal changes of chronic microvascular ischemia throughout both hemispheres. Reviewed, Interpreted and Dictated by Anam Villafuerte MD Transcribed by Elyssa Barlow Authenticated and [facility]
[2024-08-25] MEDS: GADOTERIDOL INJ 20ML SYRINGE 12 ML IV (14:35)
[2024-08-25] MEDS: SODIUM CHLORIDE 0.9% 10ML SYR (RAD ONLY) 10 ML IV (14:35)
== END 2024-08-25 23:59 | disposition home or self-care (01) ==
PROVIDERS: PCP Family Medicine; Visit Provider Family Medicine
DX: R42 Dizziness and giddiness (principal); R44.3 Hallucinations, unspecified; R41.3 Other amnesia; I65.23 Occlusion and stenosis of bilateral carotid arteries; R79.89 Other specified abnormal findings of blood chemistry
CPT/HCPCS: 70553; 76536; 93880; A9576

== ENCOUNTER 2024-12-19 11:20 | Outpatient (CLI) | payer MEDICARE, MEDICAID, SELFPAY ==
--- OUTSIDE RECORDS SUMMARY | 2024-12-19 11:27 | XMS_ITS | Clinical Summary ---
Author Organization [facility] Address [facility] [place] [address] Care Team Providers Care Coremaker Apprentice Name Role Phone Unavailable Primary Care Provider [...] therelease of HIV test results or diagnoses. [id number] Social History Tobacco Use Types Packs/Day Years Used Date Smoking Tobacco: Never Assessed Comments Unknown Sex and Gender Information Value Date Recorded Sex Assigned at Not on file Legal Sex Female 4:12 PM EST Gender Identity Not on file Sexual Orientation Not on file Plan of Treatment Not on file
--- OUTSIDE RECORDS SUMMARY | 2024-12-19 11:27 | XMS_ITS | Clinical Summary ---
Author Organization [facility] Address [address] [place] [address] Phone Care Team Providers Care Lead Shop Operator Name Role Phone Michele MARSHALL, Elza Mathias Conditions or Problems Problem Name Problem Code Onset Date Status Entry Date Provider Comment Standard Description Annotate DEGENERATIVE SCOLIOSIS 765013467 (SNOMED CT) 06/11 Active 06/11 Aylapancho Mcguire GALLERY OR MUSEUM GUIDE Acquired scoliosis LUMBAR RADICULOPATHY 502057329 (SNOMED CT) 06/11 Active 06/11 Aylapancho Mcguire GALLERY OR MUSEUM GUIDE Lumbar radiculopathy SPINAL STENOSIS OF LUMBAR REGION, WITH NEUROGENIC CLAUDICATION 15690981 (SNOMED CT) 06/11 Active 06/11 Ayla BELTREP Spinal stenosis of lumbar region FOLLOW-UP EXAMINATION FOLLOWING OTHER SURGERY Z09 (ICD-10-CM) 11/15 Active 11/15 Elza Bautista MD Encounter for follow-up examination after completed treatment for conditions other than malignant neoplasm SPINAL STENOSIS, LUMBAR M48.06 (ICD-10-CM) 10/18 Active 10/18 Elza Bautista MD Spinal stenosis, lumbar region Medications Medication Instructions Start Date Stop Date Generic Name NDC Provider Allergy Relief D-24hr 10-240 mg tablet extended release 24 hr TAKE 1 TABLET BY MOUTH EVERY DAY NOT COVERED loratadine-pseudoe phedrine 90350998490 Nancy Albarran DICLOFENAC SODIUM 75 MG [facility] diclofenac sodium 36626446849 Nancy Albarran FAMOTIDINE 40 MG TABS TAKE 1 TABLET BY MOUTH 2 TIMES DAILY FOR 90 DAYS. famotidine 23030903738 Nancy Albarran VITAMIN D (ERGOCALCIFEROL ) 62404 UNIT CAPS TAKE 1 CAPSULE BY MOUTH ONCE A WEEK ergocalciferol (vitamin d2) 14000128339 Nancy Albarran LISINOPRIL 20 MG TABS lisinopril 44074166768 Nancy Albarran TIZANIDINE HCL 4 MG TABS TAKE 1 TABLET BY MOUTH EVERY DAY AT NIGHT NEEDED tizanidine 53075456134 Nancy Albarran ATORVASTATIN CALCIUM 10 MG TABS TAKE 1 TABLET BY MOUTH EVERY DAY atorvastatin 48732700054 Nancy Albarran CELECOXIB 200 MG CAPS TAKE 1 CAPSULE BY MOUTH 2 TIMES DAILY FOR 30 DAYS. celecoxib 13961252155 Nancy Albarran FLEXERIL 10 MG TABS 1 po tid prn spasm CYCLOBENZAPRINE HCL 54083098014 Elza Bautista MD VICODIN 5-500 MG TABS (HYDROCODONE-AC ETAMINOPHEN) 1 po qid prn pain VICODIN 5-500 MG TABS (HYDROCODONE-ACETA MINOPHEN) Elza Bautista MD VICODIN ES 7.5-300 MG ORAL TABLET 1 po qid prn pain HYDROCODONE-ACETAM INOPHEN 52936116374 Elza Bautista MD VICODIN ES 7.5-300 MG ORAL TABLET 1 po qid prn pain HYDROCODONE-ACETAM INOPHEN 56102577749 Elza Bautista MD HIBICLENS 4 % EXTERNAL LIQUID Wash the entire back the night prior to the surgery CHLORHEXIDINE GLUCONATE 25242902805 Elza Bautista MD HIBICLEMARITA 4 % EXTERNAL LIQUID Wash the entire back the night prior to the surgery CHLORHEXIDINE GLUCONATE 20667652831 Elza Bautista MD TYLENOL 8 HOUR 650 MG CR-TABS 2 po q 8 hours prn pain Non-Manuel ACETAMINOPHEN [id number] Elza Bautista MD Medications Administered No information available. Allergies, Adverse Reactions, Alerts Observed no known allergies at Results No information available. Plan of Care Type Date Detail Pending order X-Ray Lumbar AP Lateral & Flexion/Extension Procedures No information available. Vital Signs Date Name Value Unit Description BMI (Body Mass Index) 34.33 kg/m2 Bod y Mass Index (Ratio) Height 64 [in_us] height E&M Weight Measured 200 [lb_av] weight E& M Weight Measured 200 [lb_av] weight E& M BP Diastolic 86 mm[Hg] blood pressu re, diastolic BP Systolic 140 mm[Hg] blood pressur e, systolic Immunizations No information available. Advance Directives No information available.
--- OUTSIDE RECORDS SUMMARY | 2024-12-19 11:27 | XMS_ITS ---
Author Organization [facility] Care Team Providers Care Executive Asst Name Role Phone Brandin Aguilar Unavailable Unavailable Mann Irene Unavailable Unavailable Albina Hernandez Unavailable Unavailable Laure Gee Unavailable Unavailable Allergies and adverse reactions Code CodeSystem Substance Reaction Severity StartDate Concern Status Celebrex Unknown 12/31/2018 active Care Team Name Role Address Phone Organization Dates Albina Hernandez PCP [address] [place], [address], [place] (Office): [facility] 12/31/2018 - 01/13/2019 Brandin Aguilar [address], [place], [address], [place] (Office): : [facility] - [facility] 12/31/2018 - 01/13/2019 Mann Irene [facility] (Office): : [facility] 12/31/2018 - 01/13/2019 Laure Gee [facility] 12/31/2018 - 01/13/2019 Immunizations Immunization Status Vaccine Details Vaccine Code CodeSystem Date Notes Influenza completed Influenza, high-dose, split virus, trivalent, injectable, preservative free 135 CVX created date: 12/31/2018 administere d date: 02/09/2016 TB 2 Step Mantoux Skin Test completed tuberculin skin test; unspecified formulation Given 0.1 ml Right Forearm intradermally Step 2 of Multi-step with next step required 98 CVX created date: 01/08/2019 consent date: 01/07/2019 administere d date: 01/08/2019 TB 2 Step Mantoux Skin Test completed tuberculin skin test; unspecified formulation Given 0.1 ml Left Forearm intradermally Step 1 of Multi-step with next step required 98 CVX created date: 12/31/2018 consent date: 12/31/2018 administere d date: 12/31/2018 Pneumovax (PCV13) completed pneumococcal conjugate vaccine, 13 valent 133 CVX created date: 12/31/2018 administere d date: 02/28/2015 Pneumovax (PPSV23) completed pneumococcal polysaccharide vaccine, 23 valent 33 CVX created date: 12/31/2018 administere d date: 10/13/2012 Mental Status Section Date Assessment Total Score Description 01/13/2019 BIMS 15 cognitively int act CAM 0 No delirium ind icated PHQ-9 00 01/06/2019 BIMS 13 cognitively int act CAM 0 No delirium ind icated PHQ-9 00 Problems Problem # Description Date of onset Resolved Date Code CodeSystem Concern Status 1 AFTERCARE FOLLOWING JOINT REPLACEMENT SURGERY 12/31/[address] active 2 HYPERLIPIDEMIA, UNSPECIFIED 12/31/[address] active 3 HYPEROSMOLALITY AND HYPERNATREMIA 12/31/[address] active 4 MOTION SICKNESS, SUBSEQUENT ENCOUNTER 12/31/[address] active 5 PRESENCE OF LEFT ARTIFICIAL KNEE JOINT 12/31/[address] active 6 PRESENCE OF UNSPECIFIED ARTIFICIAL HIP JOINT 12/31/[address] active 7 PURE HYPERCHOLESTEROLEMIA , UNSPECIFIED 12/31/[address] active 8 UNSPECIFIED OSTEOARTHRITIS, UNSPECIFIED SITE 12/31/[address] active Reason for Referral No Reasons for Referral Entered Social History Social History Observation Description Start Date End Date Code Code System Current Smoking Status Tobacco smoking consumption unknown 960319011 SNOMED CT Sex Assigned At Female 1945 [address]-0 [facility] Gender Identity Vital Signs Code Code System Vitals Name Values and Units Timing Information 59097-8 [facility] Weight Dimkd=120.3 Units=Lbs 09/2018 9279-1 [facility] Respiratory Rate Value=18.0 Units=/m in 01/13/2019 8462-4 [facility] Blood Pressure-Diastolic Value=71 Un its=mmHg 01/13/2019 8480-6 [facility] Blood Pressure-Systolic Iboeu=929 Un its=mmHg 01/13/2019 8310-5 [facility] Body Temperature Value=98.7 Units= F 01/13/2019 8867-4 [facility] Heart rate Value=93.0 Units=/min 09/2018 82657-7 [facility] O2 % BldC Oximetry Value=99.0 Units= % 01/13/2019 16836-0 [facility] Pain Level Value=0.0 01/13/2019 8302-2 [facility] Height Value=63.0 Units=Inches 12/31/2018
--- OUTSIDE RECORDS SUMMARY | 2024-12-19 11:28 | XMS_ITS | Encounter Summary ---
Author Organization [place] [address] Care Team Providers Care Radiology Director Name Role Phone Mann Irene MD Primary Care Provider [phone] Palma Jj DO Primary Care Provider + [phone] Olesya Estrada GAS DERRICK OPERATOR Unavailable Unava ilable Geraldine Whiteside RN Unavailable Unavailable Encounter Details Date Type Department Care Team (Late st Contact Info) Description 07/10/2014 Orders Only SEP Gastro [facility] [address] [facility] [address] [place] [address] Edil Mann MD [address] [phone] Social History Tobacco Use Types Packs/Day Years [...] on file documented as of this encounter Procedures Procedure Name Priority Date/Time Associated Diagnosis Comments GMED COLONOSCOPY Routine 07/10/2014 12:0 0 PM EST documented in this encounter Results * ED COLONOSCOPY (07/10/2014 12:00 PM EST) 07/10/2014 12:0 0 PM EST Impressions [facility] - 07/10/2014 12:20 PM EST Polyp (3 mm) in the distal sigmoid colon. (Polypectomy). Plan: Follow-up as needed This section is an excerpt of the full report. us Edil Mann MD GI PROCEDURE ORDERABLES Fin al Result [facility] [address] [place] [address] documented in this encounter Visit Diagnoses Not on filedocumented in this encounter Additional Health Concerns Infection Onset Date Last Indicated Resolved Time ESBL organism 11/16/2019 11/16/2019 03/28/2022 1:0 5 PM EST R/O COVID-19 03/29/2022 03/29/2022 03/30/2022 12:1 6 PM EST documented as of this encounter Care Teams Radiology Director Relationship Specialty Start Date End Date Mann Irene MD [address] [place] [phone] PCP - General Internal Medicine 08/23/12 07/13/22 Palma Jj DO [address] [place] [address] PCP - General Family Medicine 07/14/22 Olesya Estrada LSW Freelance Recruiter 11/12/2211/27 Geraldine Whiteside, RN Small Boat Engineer 01/09/23 03/05/23 documented as of this encounter
[2024-12-19 12:17] LABS: Free T4 (Free Thyroxine) 1.16 ng/dl (0.78-2.19)
[2024-12-20 08:17] LABS: Triiodothyronine (T3) Free 3.2 pg/mL (2.0-4.4)
== END 2024-12-19 23:59 | disposition home or self-care (01) ==
LOC: LAB 11:21
PROVIDERS: PCP Family Medicine; Visit Provider Specialist
DX: H91.90 Unspecified hearing loss, unspecified ear (principal); H35.30 Unspecified macular degeneration; R79.89 Other specified abnormal findings of blood chemistry; R93.89 Abnormal findings on diagnostic imaging of other specified body structures; R44.3 Hallucinations, unspecified
CPT/HCPCS: 36415; 84439; 84481

== ENCOUNTER 2025-01-10 08:52 | Outpatient (CLI) | payer MEDICARE, MEDICAID, SELFPAY ==
--- OUTSIDE RECORDS SUMMARY | 2024-12-07 13:56 | XMS_ITS | Continuity of Care Document ---
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 Name Role Phone Corporate MD, Doctor Unavailable Unavailable Allergies, Adverse Reactions, Alerts Substance Reaction Status Criticality oak Blister Active No Information Medications Medication Instructions Dosage Effective Dates (start - stop) Status Comments Emperatriz 128 5 % eye ointment instill by opthalmic route every evening at bedtimes into both eyes - Active Avastin 25 mg/mL intravenous solution inject 0.05mL intraocularly in the affected eye - Active os ergocalciferol (vitamin D2) 1,250 mcg (50,000 unit) capsule take 1 capsule by oral route every week 26855 UNITS - Active famotidine 40 mg tablet take 1 tablet by oral route every day at bedtime 40 MG - Active gabapentin 600 mg tablet take 1 tablet by oral route 2 times every day 600 MG - Active Vitamin D3 10 mcg (400 unit) capsule take 1 tablet by oral route every day 1 tablet - Active Claritin-D 24 Hour 10 mg-240 mg tablet,extended release take 1 tablet by oral route every day 1.00 tablet - Active lisinopril 10 mg tablet take 1 tablet by oral route every day 10 MG - Active AREDS 2 BUCCAL TABLET take 2 capsule by oral route every day - Active Vazalore 81 mg capsule take 1 pill by oral route every day 1 pill - Active Artificial Tears (PF) drops in a dropperette instill 1 by Ophthalmic route 1 - 6 times every day 1 - Active atorvastatin 10 mg tablet take 1 tablet by oral route every day 10 MG - Active meloxicam 7.5 mg tablet take 1 tablet by oral route every day 7.5 MG - Active Procedures Procedure Date Fluorescein Angiography With I And R Uni Or Bi Fundus Photos No Charge Bilateral Ophthal DX Image Post Retina I And R Uni Or Bi Ophthalmoscopy Extended Retinal 025 OFFICE/OUTPATIENT VISIT, EST, Low Intravitreal Injection Of Phamacologic A gent Ophthal DX Image Post Retina I And R Uni Or Bi Eylea 1mg Pre-filled Syringe Fundus Photos No Charge Bilateral Ophthal DX Image Post Retina I And R Uni Or Bi Ophthalmoscopy Extended Retinal 024 OFFICE/OUTPATIENT VISIT, EST, Low Intravitreal Injection Of Phamacologic A gent Ophthal DX Image Post Retina I And R Uni Or Bi Ophthalmoscopy Extended Retinal 024 Eylea 1mg Pre-filled Syringe OFFICE/OUTPATIENT VISIT, EST, Low OFFICE/OUTPATIENT VISIT, EST, Low Intravitreal Injection Of Phamacologic A gent Fundus Photos No Charge Bilateral Ophthal DX Image Post Retina I And R Uni Or Bi Eylea 1mg Pre-filled Syringe Intravitreal Injection Of Phamacologic A gent Ophthal DX Image Post Retina I And R Uni Or Bi Eylea 1mg Pre-filled Syringe Intravitreal Injection Of Phamacologic A gent Ophthal DX Image Post Retina I And R Uni Or Bi Eylea 1mg Pre-filled Syringe Intravitreal Injection Of Phamacologic A gent Ophthal DX Image Post Retina I And R Uni Or Bi Eylea 1mg Pre-filled Syringe Intravitreal Injection Of Phamacologic A gent Ophthal DX Image Post Retina I And R Uni Or Bi Eylea 1mg Pre-filled Syringe Intravitreal Injection Of Phamacologic A gent Ophthal DX Image Post Retina I And R Uni Or Bi Eylea 1mg Pre-filled Syringe Intravitreal Injection Of Phamacologic A gent Ophthal DX Image Post Retina I And R Uni Or Bi Eylea 1mg Pre-filled Syringe Intravitreal Injection Of Phamacologic A gent Ophthal DX Image Post Retina I And R Uni Or Bi Eylea 1mg Pre-filled Syringe Intravitreal Injection Of Phamacologic A gent Eylea Sample Drug Ophthal DX Image Post Retina I And R Uni Or Bi OFFICE/OUTPATIENT VISIT, EST, Moderate M Intravitreal Injection Of Phamacologic A gent Ophthal DX Image Post Retina I And R Uni Or Bi Bevacizumab injection Intravitreal Injection Of Phamacologic A gent Ophthal DX Image Post Retina I And R Uni Or Bi Bevacizumab injection Intravitreal Injection Of Phamacologic A gent Ophthal DX Image Post Retina I And R Uni Or Bi Bevacizumab injection Intravitreal Injection Of Phamacologic A gent Ophthal DX Image Post Retina I And R Uni Or Bi Bevacizumab injection OFFICE/OUTPATIENT VISIT, EST, Moderate O ct Ophthal DX Image Post Retina I And R Uni Or Bi Eye Exam Established Patient Comprehensi ve 1 Or More Visits UNLISTED E&M SERVICE Ophthal DX Image Post Retina I And R Uni Or Bi Eye Exam Established Patient Comprehensi ve 1 Or More Visits Intravitreal Injection Of Phamacologic A gent Ophthal DX Image Post Retina I And R Uni Or Bi Bevacizumab injection OFFICE/OUTPATIENT VISIT, EST, Low Intravitreal Injection Of Phamacologic A gent Ophthal DX Image Post Retina I And R Uni Or Bi Bevacizumab injection OFFICE/OUTPATIENT VISIT, EST, Moderate M Intravitreal Injection Of Phamacologic A gent Ophthal DX Image Post Retina I And R Uni Or Bi Eylea 1mg Pre-filled Syringe Intravitreal Injection Of Phamacologic A gent Ophthal DX Image Post Retina I And R Uni Or Bi Bevacizumab injection Intravitreal Injection Of Phamacologic A gent Ophthal DX Image Post Retina I And R Uni Or Bi Bevacizumab injection Intravitreal Injection Of Phamacologic A gent Fluorescein Angiography With I And R Uni Or Bi Fundus Photos No Charge Bilateral Oct Ophthal DX Image Post Retina I And R Uni Or Bi Oct Bevacizumab injection Oct OFFICE/OUTPATIENT VISIT, EST Oct OFFICE/OUTPATIENT VISIT, EST Post Op Visit Cataract Post Op Follow Up Visit Extracapsular Cataract Removal With IOl Manual Or Ssrs Report Developer Post Op Visit Cataract Post Op Visit Cataract Extracapsular Cataract Removal With IOl Manual Or Ssrs Report Developer Ophthalmic Biometry W Iol Calculation Pr of Comp Unilateral OFFICE/OUTPATIENT VISIT, [place] TOPOGRAPHY Ophthalmic Biometry W Iol Calculation Un ilateral Advance Directives Directive Yes / No Effective Date File Name No Information Encounters Encounter Description Practice Location Reason(s) For Visit Diagnoses Date Provider Providers Copied on Encounter [facility], [address] [place], [address], [place] tel:[phone] [facility] [place] No Information Corporate Doctor. [address] [place], [id number], [place]. tel:[phone] OFFICE/OUTPA TIENT VISIT, EST, Low [facility], [address] [place], [address], [place] tel:[phone] KEVIN Gerardo ARMD (chief complaint) Exdtve age-rel mclr degn, left eye, with actv chrdl neovasPVD (posterior vitreous detachment), both eyesCharles Bonnet syndromeAdva nced atrophic nonexudative age-related macular degeneration of right eye with subfoveal involvement Jul- 5 Deb du [address] [place], [place], [id number]. tel:[phone] Referring Provider: Ld Walls, [address] [place], [address]. tel:[phone] [facility], [address] [place], [address], [place] tel:[phone] KEVIN Gerardo Exdtve age-rel mclr degn, left eye, with actv chrdl neovas 4 Deb du [address] [place], [place], [address]. tel:[phone] Referring Provider: Ld Walls, [address] [place], [address]. tel:[phone] OFFICE/OUTPA TIENT VISIT, EST, Low [facility], [address] [place], [address], [place] tel:[phone] KEVIN Gerardo floaters in her vision (chief complaint) Exudative age-related macular degeneration of left eye with inactive choroidal neovasculari zationAdvanc ed atrophic nonexudative age-related macular degeneration of right eye with subfoveal involvementP VD (posterior vitreous detachment), both eyesCharles Bonnet syndrome 4 Juan Francisco Granados. [address] [place], [place], [id number]. tel:[phone] Referring Provider: Lily Chicas, [address] [place], [address]. tel:[phone] OFFICE/OUTPA TIENT VISIT, EST, Low [facility], [address] [place], [address], [place] tel:[phone] [facility] ARMD (chief complaint) PVD (posterior vitreous detachment), left eyeExdtve age-rel mclr degn, left eye, with actv chrdl neovas 4 Deb du [address] [place], [place], [address]. tel:[phone] Referring Provider: Ld Walls, [address] [place], [address]. tel:[phone] OFFICE/OUTPA TIENT VISIT, EST, Low [facility], [address] [place], [address], [place] tel:[phone] [facility] film in vision (chief complaint) Epithelial (juvenile) corneal dystrophy, bilateralDry eyesCharles Bonnet syndrome 4 Juan Francisco Granados. [address] [place], [place], [address]. tel:[phone] Referring Provider: Lily Chicas, [address] [place], [address]. tel:[phone] [facility], [address] [place], [address], [place] tel:[phone] [facility] film over eye (chief complaint) Exdtve age-rel mclr degn, left eye, with actv chrdl neovas 4 Deb du [address] [place], [place], [address]. tel:[phone] Referring Provider: Ld Walls, [address] [place], [address]. tel:[phone] [facility], [address] [place], [address], [place] tel:[phone] [facility] Exdtve age-rel mclr degn, left eye, with actv chrdl neovas 4 Deb du [address] [place], [place], [address]. tel:[phone] Referring Provider: Ld Walls, [address] [place], [address]. tel:[phone] [facility], [address] [place], [address], [place] tel:[phone] KEVIN Haley [place] ARMD (chief complaint) Exdtve age-rel mclr degn, left eye, with actv chrdl neovas 3 Deb du [address] [place], [place], [address]. tel:[phone] Referring Provider: Ld Walls, [address] [place], [address]. tel:[phone] [facility], [address] [place], [address], [place] tel:[phone] KEVIN Halye [place] ARMD (chief complaint) Exdtve age-rel mclr degn, left eye, with actv chrdl neovas 3 Deb du [address] [place], [place], [address]. tel:[phone] Referring Provider: Ld Walls, [address] [place], [address]. tel:[phone] [facility], [address] [place], [address], [place] tel:[phone] URIAH Sandie Haley [place] Exdtve age-rel mclr degn, left eye, with actv chrdl neovas 3 Deb du [address] [place], [place], [address]. tel:[phone] Referring Provider: Ld Walls, [address] [place], [address]. tel:[phone] [facility], [address] [place], [address], [place] tel:[phone] [facility] 4 week ARMD f/u (chief complaint) Exdtve age-rel mclr degn, left eye, with actv chrdl neovas Mir-0 3 Deb du [address] [place], [place], [address]. tel:[phone] Referring Provider: Ld Walls, [address] [place], [address]. tel:[phone] [facility], [address] [place], [address], [place] tel:[phone] [facility] ARMD (chief complaint) Exdtve age-rel mclr degn, left eye, with actv chrdl neovas September-0 3 Shayy David. [address] [facility] , [place], [place], [address], [place]. tel:[phone] Referring Provider: David Martinez, [address] [facility] , [place], [address]. tel:[phone] [facility], [address] [place], [address], [place] tel:[phone] [facility] 4 weeks ARMD f/u (chief complaint) Exdtve age-rel mclr degn, left eye, with actv chrdl neovas Jul-3 3 Shayy David. [address] [facility] , [place], [place], [address], [place]. tel:[phone] Referring Provider: Erma Nance, [address], [place], [address]. tel:[phone] OFFICE/OUTPA TIENT VISIT, EST, Moderate [facility], [address] [place], [place], [facility], [place] tel:[phone] [facility] ARMD (chief complaint) Exudative age-related macular degeneration of right eye with active choroidal neovasculari zationExdtve age-rel mclr degn, left eye, with actv chrdl neovasPseudo phakia Jul- 3 Shayy David. [address] [facility] , [place], [place], [address] [place] [address], . tel:[phone] Referring Provider: Erma Nance, [address], [place], [address]. tel:[phone] [facility], [address] [place], [place], [facility], tel:[phone] [facility] ARMD (chief complaint) Exdtve age-rel mclr degn, left eye, with actv chrdl neovas 3 Shayy David. [address] [facility] , [place], [place], [address] [place] [address], . tel:[phone] Referring Provider: Erma Nance, [address], [place], [address]. tel:[phone] [facility], [address] [place], [facility], tel:[phone] [facility] ARMD (chief complaint) Exdtve age-rel mclr degn, left eye, with actv chrdl neovas 3 Shayy David. [address] [facility] , [place], [place], [address] [place] [address], [place]. tel:[phone] Referring Provider: Erma Nance, [address], [place], [address]. tel:[phone] [facility], [address] [place], [place], [facility], tel:[phone] [facility] Age related macular degeneration (chief complaint) Exdtve age-rel mclr degn, left eye, with actv chrdl neovas 2 Shayy David. [address], [place], [place], [address], [place]. tel:[phone] Referring Provider: Erma Nance, [address], [place], [address]. tel:[phone] [facility], [address] [place], [address], [place] tel:[phone] KEVIN Stone [place] No Information 2 Corporate Doctor. [address] [place], [place], [id number], [place]. tel:[phone] OFFICE/OUTPA TIENT VISIT, EST, Moderate [facility], [address] [place], [address], [place] tel:[phone] KEVIN [facility] 6m ARMD follow up (chief complaint) Pseudophakia Exudative age-rel mclr degn, bi, with actv chrdl neovasExdtve age-rel mclr degn, left eye, with actv chrdl neovas Oct-2 2 Shayy David. [address], [place], [place], [id number], [place]. tel:[phone] Referring Provider: Erma Nance, [address], [place], [address]. tel:[phone] [facility], [address] [place], [address], [place] tel:[phone] KEVIN [facility] Macular Degeneration (chief complaint) Exudative age-related macular degeneration of right eye with active choroidal neovasculari zationInterm ediate stage nonexudative age-related macular degeneration of left eyePseudopha kiaBilateral chorioretina l scars Apr- 2 Shayy David. [address], [place], [place], [id number], [place]. tel:[phone] Referring Provider: Erma Nance, [address], [place], [address]. tel:[phone] UNLISTED E[facility]M SERVICE [facility], [address] [place], [address], [place] tel:[phone] [facility] [address] Exudative age-related macular degeneration of right eye with active choroidal neovasculari zation 2 Shayy David. [address], [place], [place], [id number], [place]. tel:[phone] Referring Provider: Erma Nance, [address], [place], [address]. tel:[phone] [facility], [address] [place], [address], [place] tel:[phone] [facility] macular degeneration (chief complaint) Exudative age-related macular degeneration of right eye with active choroidal neovasculari zationInterm ediate stage nonexudative age-related macular degeneration of left eyePseudopha anuj 1 Shayy David. [address], [place], [place], [id number], [place]. tel:[phone] Referring Provider: Erma Nance, [address], [place], [address]. tel:[phone] [facility], [address] [place], [address], [place] tel:[phone] KEVIN Sandie Haley [place] ARMD (chief complaint) Exudative age-related macular degeneration of right eye with active choroidal neovasculari zationInterm ediate stage nonexudative age-related macular degeneration of left eyePseudopha [facility] 1 Shayy David. [address], [place], [place], [id number], [place]. tel:[phone] Referring Provider: Erma Nance, [address], [place], [address]. tel:[phone] OFFICE/OUTPA TIENT VISIT, EST, Low [facility], [address] [place], [address], [place] tel:[phone] [facility] [place] Cornea Consult (chief complaint) Pseudophakia Keratoconjun ct sicca, not specified as Sjogren's, bilateral 1 James Perdomo. [address], [address], [place], [place], [id number]. tel:[phone] Referring Provider: Erma Nance, [address], [place], [address]. tel:[phone] [facility], [address] [place], [address], [place] tel:[phone] [facility] 5 week f/u ARMD (chief complaint) Exudative age-related macular degeneration of right eye with active choroidal neovasculari zationPseudo phakiaInterm ediate stage nonexudative age-related macular degeneration of left eye 1 Shayy David. [address] [place], [place], [address], [place]. tel:[phone] Referring Provider: Erma Nance, [address], [place], [address]. tel:[phone] OFFICE/OUTPA TIENT VISIT, EST, Moderate [facility], [address] [place], [address], [place] tel:[phone] [facility] decreased vision (chief complaint) Epithelial (juvenile) corneal dystrophy, bilateralExu dative age-related macular degeneration of right eye with active choroidal neovasculari zationNonexu dative age-related macular degeneration , bilateral, intermediate dry stageKeratoc onjunct sicca, not specified as Sjogren's, bilateralPre sence of intraocular lens 1 Suma Mcmanus. [address] [place], [place], [address], [place]. tel:[phone] Referring Provider: Erma Nance, [address], [place], [address]. tel:[phone] [facility], [address] [place], [address], [place] tel:[phone] [facility] 4 wk AMD f/u OD (chief complaint) Exudative age-related macular degeneration of right eye with active choroidal neovasculari zation 1 Shayy David. [address], [place], [place], [address], [place]. tel:[phone] Referring Provider: Erma Nance, [address], [place], [address]. tel:[phone] [facility], [address] [place], [address], [place] tel:[phone] K[facility] 5 week wAMD follow up (chief complaint) Exudative age-related macular degeneration of right eye with active choroidal neovasculari zation 1 Shayy David. [address], [place], [place], [address], [place]. tel:[phone] Referring Provider: Erma Nance, [address], [place], [address]. tel:[phone] [facility], [address] [facility], [place], [address], [place] tel:[phone] K[facility] injection (chief complaint) Exudative age-related macular degeneration of right eye with active choroidal neovasculari zation 2 0 Shayy David. [address], [place], [place], [address], [place]. tel:[phone] Referring Provider: David Martinez, [address], [place], [address]. tel:[phone] OFFICE/OUTPA TIENT VISIT, EST [facility], [address] [place], [address], [place] tel:[phone] [facility] [place] [facility] hemorrhage (chief complaint) Retinal hemorrhage of right eyeMacular edemaExudati ve age-related macular degeneration of right eye with active choroidal neovasculari zationNonexu dative age-related macular degeneration , bilateral, intermediate dry stage Oct-3 0- 0 Shayy David. [address], [place], [place], [address], [place]. tel:[phone] Referring Provider: David Martinez, [address] [facility], [place], [address]. tel:[phone] OFFICE/OUTPA TIENT VISIT, EST [facility], [address] [place], [address], [place] tel:[phone] [facility] Urgent (chief complaint) Retinal hemorrhage of right eyeMacular edema Oct-3 0-202 0 Renée Orta. [address] [place], [place], [address]. tel:[phone] Referring Provider: Marivel Pyle, [address] [place], [address]. tel:[phone] [facility], [address] [place], [address], [place] tel:[phone] [facility] 3-4 wk phaco po (chief complaint) Presence of intraocular lens 9 Suma Mcmanus. [address] [place], [place], [address], [place]. tel:[phone] Referring Provider: Marietta Mc, [address] [place], [address]. tel:[phone] [facility], [address] [place], [address], [place] tel:[phone] [facility] 1 day s/p PCIOL (chief complaint) Post-Op: Cornea Procedure 9 James Perdomo. [address] [place] [address], [address], [place], [place], [address]. tel:[phone] Referring Provider: Conor Mc, [address] [place] [address] [address], [place], [address]. tel:[phone] [facility], [address] [place], [address], [place] tel:[phone] [facility] Nuclear sclerotic cataract of both eyesAge-rela josh nuclear cataract, left eyeCortical age-related cataract, left eye Nov-0 9 [facility] [address] [place] [address], [address], [place], [place], [address]. tel:[phone] Referring Provider: Conor Mc, [address] [place] [address] [address], [place], [address]. tel:[phone] [facility], [address] [place], [address], [place] tel:[phone] [facility] 1 wk phaco po (chief complaint) Presence of intraocular lens Oct-2 9 Suma Mcmanus. [address] [place], [place], [address], [place]. tel:[phone] Referring Provider: Marietta Mc, [address] [place], [address]. tel:[phone] [facility], [address] [place], [address], [place] tel:[phone] [facility] 1 day PHACO OD (chief complaint) Pseudophakia Oct-2 9 [facility] [address] [place] [address], [address], [place], [place], [address]. tel:[phone] Referring Provider: Conor Mc, [address] [place] [address] [address], [place], [address]. tel:[phone] [facility], [address] [place], [address], [place] tel:[phone] [facility] Nuclear sclerotic cataract of both eyesAge-rela josh nuclear cataract, right eyeCortical age-related cataract, right eye Oct-2 9 [place] Conor. [address] [place] [address], [address], [place], [place], [address]. tel:[phone] Referring Provider: Conor Mc, [address] [place] [address] [address], [place], [address]. tel:[phone] [facility], [address] [place], [address], [place] tel:[phone] [facility] Tera Gerardo Age-related nuclear cataract, bilateral Oct-0 9 [facility]. [address], [address], [place], [place], [address]. tel:[phone] Referring Provider: Erma Nance, [address], [place], [address]. tel:[phone] OFFICE/OUTPA TIENT VISIT, NEW [facility], [address] [place], [address], [place] tel:[phone] [facility] [place] Tera Gerardo cataract (chief complaint) Nuclear sclerotic cataract of both eyesCortical age-related cataract of both eyesABMD (anterior basement membrane dystrophy)No nexudative age-related macular degeneration , bilateral, intermediate dry stage 9 [facility]. [address], [address], [place], [place], [address]. tel:[phone] Referring Provider: Erma Nance, [address], [place], [address]. tel:[phone] Family History Family Member Type Diagnosis Age At Onset Problem No family history of Retinal disease Problem No family history of Cancer, unknown Problem (finding) No family history of Hy pertension Problem No family history of Glaucom a Problem (finding) No family history of Ca taracts Problem (finding) No family history of Di abetes mellitus Payers Payer name Insurance type Covered green party ID Authoriza tion(s) [facility] Comm Plan Dual Com [id number] Medicaid [place] [id number] Social History Type Description Quantity Date Captured Comments Alcohol Use Details Unknown Caffeine Use Details Unknown Tobacco Use Status No Information Smoking Status No Information Sex Female Chief Complaint And Reason For Visit No Information Reason For Referral Reason For Referral No Information Plan Of Treatment Date Type Action Status Goal Tobacco cessation counseling completed Goal Tobacco cessation counseling completed Goal Tobacco cessation counseling completed Goal Tobacco cessation counseling completed Goal Tobacco cessation counseling completed Goal Tobacco cessation counseling completed Appointment Warner Stella BOOKED Patient Education Inveltys 1 % eye drops, suspension completed Patient Education Health Information for You: MedlinePl~ completed Patient Education Ilevro 0.3 % eye drops, suspension completed History Of Present Illness Encounter Date Complaint History Of Prese nt Illness ARMD The 78 year old patient presents for evaluation of ARMD in the right and left eyes. Pt vision is worse, OU are blurry. Pt says that her depth perception is not good, and her NVa has been suffering, says she can't even see print when she magnifying glass. Pt has flashes OU, intermittent. 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 Pt reports that she is having visual hallucinations, persisted since Mar 2024.Pt denies pain, floaters, and darkening of central vision. Pt confirms she is taking AREDS 2 BID. ATs PRN OU. floaters in her vision The 78 ye ar old female presents for evaluation of floaters in her vision in both eyes. Patient states that she has had colorful floaters when she saw Dr. Boyd at last visit. The floaters are like red balls in both eyes. In addition, the patient has been seeing tree/shrubs with the red balls. Patient denies any flashes in either eye. Patient has been getting treatment for wet AMD in the left eye and is at end stage AMD in the right eye. Patient is taking AREDS2 with good compliance. ARMD The 78 year old patient presents for evaluation of ARMD in the left eye. Pt states she has noticed her vision has changed a bit since her last visit. pt states the last 3-4 weeks she sees little red dots in her vision but they go away when she blinks. Pt denies flashes of light, floaters, pain, double vision, black spots or distortions in vision. film in vision The 77 year old patient presents for evaluation of film in vision in the right eye. Patient reports that she has a film in her vision in the right eye. Patient denies any eye pain, flashes of light, or floaters. film over eye The 77 year old patient presents for evaluation of film over eye in the right eye. Patient complains of new film in right eye x few weeks. No new floaters/flashes. ARMD The 77 year old patient presents for evaluation of ARMD in the left eye. Pt states vision has been stable since previous visit with no new complaints. Pt denies any pain, headaches, flashes of lights, or increase in floaters. ARMD 4 week ARMD f/u ARMD 4 weeks ARMD f/u ARMD The 76 year old female presents for evaluation of ARMD in the right and left eyes. Pt states VA has been stable and has no new concerns at this time. No pain, headaches, flashes or floaters She started new BP med lisinopril and has been a little light headed. ARMD ARMD Age related macular degeneration 6m ARMD follow up The 76 year ol d female presents for evaluation of 6m ARMD follow up in the right and left eyes. PT states vision hasn't been too good, says she can't see as well as her last OV. Pt complains of pain in OD, says it happens randomly once in a while; says pain feels like a needle in her eye and the feeling stays for a while. Pt also states she has floaters, doesn't know if she's seeing them in both eyes or not. Pt says she has had flashes of light in OD, but she can't describe what they're like for her. Pt denies any loss of vision but says it's definitely decreased gradually. Pt confirms photophobia.Pt also states a few days ago she passed out, went to and had her heart checked, but it wasn't the problem. Pt states they didn't find anything wrong so far, has another visit soon. Pt states that she's been feeling light headed, doesn't know if it has anything to do with her eyes. Macular Degeneration The 75 year old female presents for evaluation of Macular Degeneration in the right and left eyes. Pt states the vision is better some days and worse other days in OU. Pt states she has floaters from time to time in OU. Pt states she has blurry vision from time to time in OU. Pt states she has pain from time to retime in OD. Pt states she has light sensitivity all the time in OU. Pt states she is not on any eye drops at this time. Pt states she is not a diabetic. macular degeneration The 75 year old female presents for evaluation of macular degeneration in the right and left eyes. Patient states that her vision has improved since her last appointment. Patient has floaters but these are old and stable. Patient reports a curtain in the middle of her vision that she can see through but this has been improving over time. Patient denies double vision, eye pain, flashes, wavy lines, and light sensitivity. Drops: PFATs / ARMD The 75 year old female presents for evaluation of ARMD in the right and left eyes. Patient states vision in OD has improved since last visit and describes vision in OS as stable. Patient also notes that she experiences occasional floaters in OD and photophobia, but denies any eye pain, flashes, diplopia, or central distortion. Patient is currently taking AT PRN OU. Cornea Consult The 74 year old female presents for evaluation of Cornea Consult in the right and left eyes. Pt states VA stable since last OV and has not noticed any changes. Pt denies any pain, redness, headaches, floaters, or difficulty with treatment plan. Pt co of some flashes. 5 week f/u ARMD The 74 year old female presents for evaluation of 5 week f/u ARMD in the right and left eyes. Pt states VA is stable and has not changed since last OV. Pt denies any eye pain, flashes, new floaters, curtains, and double vision. decreased vision The 74 year old female presents for evaluation of decreased vision in the right and left eyes. Pt states VA is about the same but has notice a little improvement Pt denies any pain, redness, headaches, floaters, or difficulty with treatment plan. pt states that every once in awhile she will get some flashing but this is nothing new. Pt using drops correctly and is tolerating them well- Eye Releaf PRN 4 wk AMD f/u OD 5 week wAMD follow up injection hemorrhage The 74 year old female presents for evaluation of hemorrhage in the right eye per ERS. Pt states that ERS said that she has bleeding in her right eye. Pt can not see in the dark, states that when its dark out she needs all the lights on to see. Pt does not drive at night, has trouble seeing the lines and the headlights cause halos and glares of light. Pt states that about 2 months ago her vision had gotten worse in her OD. Pt denies eye pain and headaches. Pt states that almost every morning that her vision is blocked by a jagged image but can see the outside of it, and said this has happened since the cataract sx. Urgent The 74 year old female presents for evaluation of Urgent in the right eye. Pt. states that it has gradually gotten worse. pt. states that james told her that skin is growing on the cornea. pt. states that when she wakes up or has her eyes closed for awhile and she opens them there is a big solid black dot, that moves a little bit. Pt states that it effects her vision in the right eye Pt. denies and flashes. Pt. states that she is not taking any drops at this time. 3-4 wk phaco po The 73 year old female presents for evaluation of 3-4 wk phaco po in the right and left eyes. Vision has improved. Is seeing the reflection off the lens. Denies pain flashing or floaters. 1 day s/p PCIOL The 73 year old female presents for evaluation of 1 day s/p PCIOL in the left eye. The symptom is all of the time. The condition is not any better. The condition is described as blurry vision. Patient denies eye pain and any drop problems and is using drops correctly. Pt c/o OS being blurry and not as good as OD. Oct-28-2019 1 wk phaco po The 73 year old female presents for evaluation of 1 wk phaco po in the right eye. Vision is doing good. Denies pain flashing or floaters. No complaints. 1 day PHACO OD The 73 year old female presents for evaluation of 1 day PHACO OD. Vision is improving. Denies flashes, floaters and eye pain. Inveltys BID vig BID. Patient is not taking ilevro due to allergy. cataract The 73 year old female presents for evaluation of cataract in the right and left eyes. Vision is blurry. She states even when lights are on everything is dark. Bothered by glare/halos. No longer drives at night due to this. Reading traffic signs from a distance is getting worse. Pt was told by a Doctor at [facility] she was slowly going blind ? Hx of floaters. Denies pain or flashing. 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 - (DO NOT USE INJ CL ININC) 12-13 weeks VTD/OCT OU, OPTOS FA/FAF OS>OD, АЛЕКСАНДР OS Impression/Plan Impression/Plan - (INJ CLINIC) 8 weeks АЛЕКСАНДР OS/OC T OU Impression/Plan - (INJ CLINIC) 8 wks АЛЕКСАНДР OS OCT OU - (INJ CLINIC) 8 wks АЛЕКСАНДР OS OCT OU - (INJ CLINIC) 8 wks АЛЕКСАНДР OS OCT OS - 8-9 wks АЛЕКСАНДР OS OCT OS - 6WK АЛЕКСАНДР OS OCT OS - 4 weeks oct ou/АЛЕКСАНДР OS x 2 visi ts Impression/Plan - 4 weeks oct ou/exam ou/AURELIA OS - 5 weeks oct ou/AURELIA OS - 4 weeks oct ou/AURELIA OS Impression/Plan Impression/Plan Impression/Plan Impression/Plan 6-9 months EJR 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
--- OUTSIDE RECORDS SUMMARY | 2025-01-10 09:00 | XMS_ITS | Clinical Summary ---
Author Organization [facility] Address [facility] [place] [address] Care Team Providers Care Dental Hygiene Professor Name Role Phone Unavailable Primary Care Provider [...] therelease of HIV test results or diagnoses. [id number] Social History Tobacco Use Types Packs/Day Years Used Date Smoking Tobacco: Never Assessed Comments Unknown Sex and Gender Information Value Date Recorded Sex Assigned at Not on file Legal Sex Female 4:12 PM EST Gender Identity Not on file Sexual Orientation Not on file Plan of Treatment Not on file
--- OUTSIDE RECORDS SUMMARY | 2025-01-10 09:01 | XMS_ITS | Encounter Summary ---
Author Organization [place] [address] Care Team Providers Care Court Crier Name Role Phone Mann Irene MD Primary Care Provider [phone] Palma Jj DO Primary Care Provider + [phone] Olesya Estrada LEAK DETECTOR Unavailable Unava ilable Geraldine Whiteside RN Unavailable Unavailable Encounter Details Date Type Department Care Team (Late st Contact Info) Description 07/10/2014 Orders Only SEP Gastro [facility] [address] [facility] [address] [place] [address] Edil Mann MD [address] [place] [phone] Social History Tobacco Use Types Packs/Day Years [...] EST) 07/10/2014 12:0 0 PM EST Impressions [facility] - 07/10/2014 12:20 PM EST Polyp (3 mm) in the distal sigmoid colon. (Polypectomy). Plan: Follow-up as needed This section is an excerpt of the full report. us Edil Mann MD GI PROCEDURE ORDERABLES Fin al Result [facility] [address] [place] [address] documented in this encounter Visit Diagnoses Not on filedocumented in this encounter Additional Health Concerns Infection Onset Date Last Indicated Resolved Time ESBL organism 11/16/2019 11/16/2019 03/28/2022 1:0 5 PM EST R/O COVID-19 03/29/2022 03/29/2022 03/30/2022 12:1 6 PM EST documented as of this encounter Care Teams Court Crier Relationship Specialty Start Date End Date Mann Irene MD [address] [place] [phone] PCP - General Internal Medicine 08/23/12 07/13/22 Palma Jj DO [address] [place] [address] PCP - General Family Medicine 07/14/22 Olesya Estrada LSW Motor Vehicles Inspector 11/12/2211/27 Geraldine Whiteside, RN Apprentice Jockey 01/09/23 03/05/23 documented as of this encounter
--- OUTSIDE RECORDS SUMMARY | 2025-01-10 09:01 | XMS_ITS ---
Author Organization [facility] - [facility] Care Team Providers Care Type Mapper Name Role Phone Brandin Aguilar Unavailable Unavailable Mann Irene Unavailable Unavailable Albina Hernandez Unavailable Unavailable Laure Gee Unavailable Unavailable Allergies and adverse reactions Code CodeSystem Substance Reaction Severity StartDate Concern Status Celebrex Unknown 12/31/2018 active Care Team Name Role Address Phone Organization Dates Albina Hernandez PCP [address] [place], [address], [place] (Office): [facility] 12/31/2018 - 01/13/2019 Brandin Aguilar [address], [place], [address], [place] (Office): : [facility] - [facility] 12/31/2018 - 01/13/2019 Mann Irene [facility] (Office): : [facility] - [facility] 12/31/2018 - 01/13/2019 Laure Gee [facility] - [facility] 12/31/2018 - 01/13/2019 Immunizations Immunization Status Vaccine [...] 1 AFTERCARE FOLLOWING JOINT REPLACEMENT SURGERY 12/31/[address] active 2 HYPERLIPIDEMIA, UNSPECIFIED 12/31/[address] active 3 HYPEROSMOLALITY AND HYPERNATREMIA 12/31/[address] active 4 MOTION SICKNESS, SUBSEQUENT ENCOUNTER 12/31/[address] active 5 PRESENCE OF LEFT ARTIFICIAL KNEE JOINT 12/31/[address] active 6 PRESENCE OF UNSPECIFIED ARTIFICIAL HIP JOINT 12/31/[address] active 7 PURE HYPERCHOLESTEROLEMIA , UNSPECIFIED 12/31/[address] active 8 UNSPECIFIED OSTEOARTHRITIS, UNSPECIFIED SITE 12/31/[address] active Reason for Referral No Reasons for Referral Entered Social History Social History Observation Description Start Date End Date Code Code System Current Smoking Status Tobacco smoking consumption unknown 100819222 SNOMED CT Sex Assigned At Female 1945 68637-3 [facility] Gender Identity Vital Signs Code Code System Vitals Name Values and Units Timing Information 57368-8 [facility] Weight Pqpsu=233.3 Units=Lbs 09/2018 9279-1 [facility] Respiratory Rate Value=18.0 Units=/m in 01/13/2019 8462-4 [facility] Blood Pressure-Diastolic Value=71 Un its=mmHg 01/13/2019 8480-6 [facility] Blood Pressure-Systolic Wztzs=458 Un its=mmHg 01/13/2019 8310-5 [facility] Body Temperature Value=98.7 Units= F 01/13/2019 8867-4 [facility] Heart rate Value=93.0 Units=/min 09/2018 97977-4 [facility] O2 % BldC Oximetry Value=99.0 Units= % 01/13/2019 63204-1 [facility] Pain Level Value=0.0 01/13/2019 8302-2 [facility] Height Value=63.0 Units=Inches 12/31/2018
--- OUTSIDE RECORDS SUMMARY | 2025-01-10 09:02 | XMS_ITS | Clinical Summary ---
Author Organization [facility] Address [address] [place] [address] Phone Care Team Providers Care Teletype Adjuster Name Role Phone Michele MARSHALL, Elza Mathias Conditions or Problems Problem Name Problem Code Onset Date Status Entry Date Provider Comment Standard Description Annotate DEGENERATIVE SCOLIOSIS 964304127 (SNOMED CT) 06/11 Active 06/11 Aylapancho Mcguire ECONOMETRICS PROFESSOR Acquired scoliosis LUMBAR RADICULOPATHY 020897749 (SNOMED CT) 06/11 Active 06/11 Aylapancho Mcguire ECONOMETRICS PROFESSOR Lumbar radiculopathy SPINAL STENOSIS OF LUMBAR REGION, WITH NEUROGENIC CLAUDICATION 06970936 (SNOMED CT) 06/11 Active 06/11 Ayla BELTREP [...] MOUTH EVERY DAY NOT COVERED loratadine-pseudoe phedrine 14132309500 Nancy Albarran DICLOFENAC SODIUM 75 MG [facility] diclofenac sodium 37472595854 Nancy Albarran FAMOTIDINE 40 MG TABS TAKE 1 TABLET BY MOUTH 2 TIMES DAILY FOR 90 DAYS. famotidine 14470893259 Nancy Albarran VITAMIN D (ERGOCALCIFEROL ) 29449 UNIT CAPS TAKE 1 CAPSULE BY MOUTH ONCE A WEEK ergocalciferol (vitamin d2) 49122450685 Nancy Albarran LISINOPRIL 20 MG TABS lisinopril 94794599361 Nancy Albarran TIZANIDINE HCL 4 MG TABS TAKE 1 TABLET BY MOUTH EVERY DAY AT NIGHT NEEDED tizanidine 06237087297 Nancy Albarran ATORVASTATIN CALCIUM 10 MG TABS TAKE 1 TABLET BY MOUTH EVERY DAY atorvastatin 05093474034 Nancy Albarran CELECOXIB 200 MG CAPS TAKE 1 CAPSULE BY MOUTH 2 TIMES DAILY FOR 30 DAYS. celecoxib 46918689226 Nancy Albarran FLEXERIL 10 MG TABS 1 po tid prn spasm CYCLOBENZAPRINE HCL 19903365527 Elza Bautista MD VICODIN 5-500 MG TABS (HYDROCODONE-AC ETAMINOPHEN) 1 po qid prn pain VICODIN 5-500 MG TABS (HYDROCODONE-ACETA MINOPHEN) Elza Bautista MD VICODIN ES 7.5-300 MG ORAL TABLET 1 po qid prn pain HYDROCODONE-ACETAM INOPHEN 34560559797 Elza Bautista MD VICODIN ES 7.5-300 MG ORAL TABLET 1 po qid prn pain HYDROCODONE-ACETAM INOPHEN 80564176574 Elza Bautista MD HIBICLENS 4 % EXTERNAL LIQUID Wash the entire back the night prior to the surgery CHLORHEXIDINE GLUCONATE 64386174265 Elza Bautista MD HIBICLEMARITA 4 % EXTERNAL LIQUID Wash the entire back the night prior to the surgery CHLORHEXIDINE GLUCONATE 68678619251 Elza Bautista MD TYLENOL 8 HOUR 650 MG CR-TABS 2 po q 8 hours prn pain Non-Manuel ACETAMINOPHEN [id number] Elza Bautista MD Medications Administered No information [...]
[2025-01-10 09:20] LABS: Blood Urea Nitrogen 17 mg/dl (7-17); Creatinine,Serum 0.80 mg/dl (0.52-1.04); Estimated Glomerular Filt Rate 70 ml/min (>60); GFR (African American) 84 ML/MIN (>60)
--- NOTE | 2025-01-10 09:30 | MR_ITS ---
FINAL REPORT TECHNIQUE: Multiplanar MR, without and with contrast administration CLINICAL HISTORY: hip/knee replacement/Memory loss, hallucinations/ blurred vision COMPARISON: 08/25/2024 FINDINGS: Diffusion sequences show no signal abnormalities to indicate acute infarct. There is moderate cortical atrophy. There are small scattered foci of increased signal in the deep white matter bilaterally, similar to prior. Vessel flow-voids are intact. The 7th and 8th nerve root complexes are intact. Following contrast administration, there is no mass or abnormal parenchymal enhancement. IMPRESSION: Atrophy and minimal changes of chronic microvascular ischemia. Reviewed, Interpreted and Dictated by Anam Villafuerte MD Transcribed by Elyssa Barlow Authenticated and [facility]
[2025-01-10] MEDS: SODIUM CHLORIDE 0.9% 10ML SYR (RAD ONLY) 10 ML IV (10:14)
[2025-01-10] MEDS: GADOTERIDOL INJ 20ML SYRINGE 12 ML IV (10:14)
== END 2025-01-10 23:59 | disposition home or self-care (01) ==
LOC: RAD 08:53
PROVIDERS: PCP Family Medicine; Visit Provider Specialist
DX: G31.9 Degenerative disease of nervous system, unspecified (principal); G93.40 Encephalopathy, unspecified; F03.90 Unspecified dementia, unspecified severity, without behavioral disturbance, psychotic disturbance, mood disturbance, and anxiety; R90.89 Other abnormal findings on diagnostic imaging of central nervous system; R44.3 Hallucinations, unspecified
CPT/HCPCS: 36415; 70553; 82565; 84520; A9576

== ENCOUNTER 2025-04-04 11:55 | Outpatient (CLI) | payer MEDICARE, MEDICAID, SELFPAY ==
[2025-04-04 14:56] LABS: Hematocrit 41.9 % (37.0-47.0); Hemoglobin 13.3 g/dL (12.2-16.2); Immature Granulocytes % 0.1 %; Mean Corpuscular HGB Conc 31.7 g/dL (31.8-35.4); Mean Corpuscular Hemoglobin 28.6 pg (27.0-31.2); Mean Corpuscular Volume 90.1 fl (81-99); Nucleated Red Blood Cells % 0 %; Platelet Count 281 K/mm3 (142-424); Red Blood Count 4.65 M/mm3 (4.20-5.40); Red Cell Distribution Width-SD 47.7 fL; White Blood Count 8.1 K/mm3 (4.8-10.8)
[2025-04-04 15:58] LABS: Alanine Aminotransferase 28 U/L (12-78); Albumin Level 4.3 g/dl (3.5-5.0); Albumin/Globulin Ratio 1.4 (1.1-1.8); Alkaline Phosphatase 145 U/L (38-126); Anion Gap 11.4 mEq/L (5-15); Aspartate Amino Transferase 29 U/L (14-36); Bilirubin,Total 0.7 mg/dl (0.2-1.3); Blood Urea Nitrogen 13 mg/dl (7-17); Calcium 9.6 mg/dl (8.4-10.2); Carbon Dioxide 27 mmol/L (22.0-30.0); Chloride 104 mmol/L (98-107); Creatinine,Serum 0.80 mg/dl (0.52-1.04); Estimated Glomerular Filt Rate 70 ml/min (>60); GFR (African American) 84 ML/MIN (>60); Globulin 3.1 g/dL (1.3-3.2); Glucose 94 mg/dl (74-100); Potassium 4.4 mmoL/L (3.5-5.1); Sodium 138 mmol/L (136-145); Total Protein,Serum 7.4 g/dl (6.3-8.2)
[2025-04-04 16:26] LABS: Thyroid Stimulating Hormone 0.57 uIU/mL (0.465-4.68)
--- OUTSIDE RECORDS SUMMARY | 2025-04-05 10:05 | XMS_ITS | Encounter Summary ---
Author Organization [place] [address] Care Team Providers Care Qm Consultant Name Role Phone Palma Jj DO Primary Care Provider + [phone] Reason for Visit * Reason Onset Date Comments Prior Authorization 05/31/2024 visco for ri ght knee Encounter Details Date Type Department Care Team (Late st Contact Info) Description 05/31/[address] [address] Gilda Francis PA [address] [place] [id number] Prior Authorization (visco for right knee) Social History Tobacco Use Types Packs/Day Years [...] Date Recorded PHQ-2 Total Score 0 11/09/2023 [facility] of Occupat ional Health - Occupational Stress [...] AM EDT Grooms, M ichelle, CCMA * Because of a physical, [...] Refills Last Filled Start Date End Date hyaluronate sodium, stabilized 60 mg/3 mL IAtc SyringeIndications:P rimary osteoarthritis of right knee Inject 3 mL into the articular space once for 1 dose. 3 mL 05/31/2024 documented in this encounter Miscellaneous Notes * Telephone Encounter - Helen Monteiro MA - 03/01/2025 8:34 AM EDT Patient did not have Visco. Will need to get new auth and order new meds. * Telephone Encounter - Melania Cole Athletic Trainer - 07/20/2024 11:11 AM EDT Bret made aware that pt s/d. VISCO labeled at . * Telephone Encounter - Misti Morales Scribe - 07/18/2024 11:24 AM EDT Pt scheduled on 08/29 @ [address] Ness * Telephone Encounter - Theresa Rivera Scribe - 07/13/2024 2:02 PM EST LM for Pt to return call to schedule Right Knee Durolane inj with JG in MCM sent * Telephone Encounter - Melania Cole Athletic Trainer - 07/01/2024 8:54 AM EST Images from the original note were not included. VISCO approved. MCM to s/d pt. Med will be ordered once pt s/d. * Telephone Encounter - Melania Cole Athletic Trainer - 06/30/2024 10:35 AM EST [facility] pharmacy requesting additional clinicals: -last gel knee injection, which medication,and which knee -Pt received monovisc gel knee injection with OC, Dr. Oh 12/03/2022. Additional information faxed to [facility] at [phone] * Telephone Encounter - Melania Cole Athletic Trainer - 06/23/2024 11:03 AM EST submitted to [facility] * Telephone Encounter - Nathalia Duarte RPH - 05/31/2024 10:33 AM EST Durolane is excluded on pharmacy benefit. Rejection states to bill medicare part B. * Telephone Encounter - Melania Cole Athletic Trainer - 05/31/2024 10:23 AM EST Provider has requested patient to receive a VISCO injection Authorization has been submitted for the right knee through [facility] prescription coverage. If it is not approved through a pharmacy benefit then the following steps will be placed. Next steps: Authorization will be started with [facility] portal Once approved, an order will be place order for Durolane Durolane received in office, will contact patient to schedule appointment Durolane will be labled for patient If denied will forward to provider for other options for the patient and will notify patient of next step. Provider to perform the injection: CHANO * Telephone Encounter - Melania Cole Athletic Trainer - 05/31/2024 10:01 AM EST ----- Message from TIARRA Ramirez sent at 05/31/2024 9:24 AM EST ----- Regarding: visco Please request auth and schedule pt for visco for right knee with Dr. Ness documented in this encounter Plan of Treatment Not on file documented as of this encounter Goals Goal [...] UMA MICHELLE to have help getting new [place] plan by end of February 2023 General Yes Geraldine Whiteside RN Stay Tobacco Free Lifestyle No Oralia Merida CCMA documented as of this encounter Visit Diagnoses Diagnosis Primary osteoarthritis of right knee- Primary Primary localized osteoarthrosis, lower leg documented in this encounter Additional Health Concerns Assessment Noted Time A fall risk assessment has been complete d for the patient 08/06/2023 8:22 AM EDT documented as of this encounter Care Teams Qm Consultant Relationship Specialty Start Date End Date Palma Jj DO [address] [place] [address] PCP - General Family Medicine 07/14/22 documented as of this encounter
--- OUTSIDE RECORDS SUMMARY | 2025-04-05 10:06 | XMS_ITS | Encounter Summary ---
Author Organization [place] [address] Care Team Providers Care Quality Technician Fiberglass Name Role Phone Mann Irene MD Primary Care Provider [phone] Palma Jj DO Primary Care Provider + [phone] Olesya Estrada SCOOP FILLER Unavailable Unava ilable Geraldine Whiteside RN Unavailable Unavailable Encounter Details Date Type Department Care Team (Late st Contact Info) Description 07/10/2014 Orders Only [facility] [address] [facility] [address] [place] [address] Edil Mann MD [address] [id number] Social History Tobacco Use Types Packs/Day Years [...] al Result [facility] [address] [place] [address] documented in this encounter Visit Diagnoses Not on filedocumented in this encounter Additional Health Concerns Infection Onset Date 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
--- OUTSIDE RECORDS SUMMARY | 2025-04-05 10:06 | XMS_ITS | Clinical Summary ---
Author Organization [facility] Address [address] [place] [address] Phone Care Team Providers Care Pcu Rn Name Role Phone Michele MARSHALL, Elza Mathias Conditions or Problems Problem Name Problem Code Onset Date Status Entry Date Provider Comment Standard Description Annotate DEGENERATIVE SCOLIOSIS 481347479 (SNOMED CT) 06/11 Active 06/11 Aylapancho Mcguire MACHINE TOOL OPERATOR Acquired scoliosis LUMBAR RADICULOPATHY 338930821 (SNOMED CT) 06/11 Active 06/11 Aylapancho Mcguire MACHINE TOOL OPERATOR Lumbar radiculopathy SPINAL STENOSIS OF LUMBAR REGION, WITH NEUROGENIC CLAUDICATION 85574669 (SNOMED CT) 06/11 Active 06/11 Ayla BELTREP [...] MOUTH EVERY DAY NOT COVERED loratadine-pseudoe phedrine 48641839926 Nancy Albarran DICLOFENAC SODIUM 75 MG [facility] diclofenac sodium 28499924477 Nancy Albarran FAMOTIDINE 40 MG TABS TAKE 1 TABLET BY MOUTH 2 TIMES DAILY FOR 90 DAYS. famotidine 76002692568 Nancy Albarran VITAMIN D (ERGOCALCIFEROL ) 88469 UNIT CAPS TAKE 1 CAPSULE BY MOUTH ONCE A WEEK ergocalciferol (vitamin d2) 30779308015 Nancy Albarran LISINOPRIL 20 MG TABS lisinopril 18121384545 Nancy Albarran TIZANIDINE HCL 4 MG TABS TAKE 1 TABLET BY MOUTH EVERY DAY AT NIGHT NEEDED tizanidine 38217188291 Nancy Albarran ATORVASTATIN CALCIUM 10 MG TABS TAKE 1 TABLET BY MOUTH EVERY DAY atorvastatin 92905566103 Nancy Albarran CELECOXIB 200 MG CAPS TAKE 1 CAPSULE BY MOUTH 2 TIMES DAILY FOR 30 DAYS. celecoxib 76958188072 Nancy Albarran FLEXERIL 10 MG TABS 1 po tid prn spasm CYCLOBENZAPRINE HCL 95397030240 Elza Bautista MD VICODIN 5-500 MG TABS (HYDROCODONE-AC ETAMINOPHEN) 1 po qid prn pain VICODIN 5-500 MG TABS (HYDROCODONE-ACETA MINOPHEN) Elza Bautista MD VICODIN ES 7.5-300 MG ORAL TABLET 1 po qid prn pain HYDROCODONE-ACETAM INOPHEN 59687564498 Elza Bautista MD VICODIN ES 7.5-300 MG ORAL TABLET 1 po qid prn pain HYDROCODONE-ACETAM INOPHEN 13285149551 Elza Bautista MD HIBICLENS 4 % EXTERNAL LIQUID Wash the entire back the night prior to the surgery CHLORHEXIDINE GLUCONATE 86316037373 Elza Bautista MD HIBICLEMARITA 4 % EXTERNAL LIQUID Wash the entire back the night prior to the surgery CHLORHEXIDINE GLUCONATE 20749264955 Elza Bautista MD TYLENOL 8 HOUR 650 MG CR-TABS 2 po q 8 hours prn pain Non-Manuel ACETAMINOPHEN 57426026377 Elza Bautista MD Medications Administered No information [...]
--- OUTSIDE RECORDS SUMMARY | 2025-04-05 10:06 | XMS_ITS | Clinical Summary ---
Author Organization [employer] ([place], [place], [place], [place], [place]) Address [address] [place] [address] Care Team Providers Care World History Teacher Name Role Phone Unavailable Primary Care Provider Unavailabl e Encounters * This document contains information received from the source organization and may not represent a complete record from that organization. Date Type Department Care Team Description 03/01/2025 Travel from Last 3 Months Social History Tobacco Use Types Packs/Day Years Used Date Smoking Tobacco: Never Assessed Comments Unknown Sex and Gender Information Value Date Recorded Sex Assigned at Female 03/01/2025 10:05 AM CDT Legal Sex Female 1:09 PM CDT Gender Identity Not on file Sexual Orientation Not on file Plan of Treatment Health Maintenance Due Date Last Done Comments DXA SCAN 1945 Depression Screening (12+) 1959 Tobacco Cessation Counseling and Screening (12+) 1959 Hepatitis C Screening 09/19/1965 Respiratory Syncytial Virus (RSV) Adult or (1 - 1-dose 75+ series) 09/19/2022 Falls Risk Screening 05/11/2024 Medicare IPPE (Welcome to Medicare) [id number] 07/09/2024 COVID-19 VACCINE (2 - 2024-2 6 season) 2025 08/06/2023 Influenza Vaccine (#1) 2025 , 03/29/2022, 02/05/2021, Additional history exists DTAP/TDAP/TD VACCINES (2 - T d or Tdap) 02/28/2025 02/28/2015 Pneumococcal 50+ years Completed 02/28/2015, 2012 Shingles Vaccine (Zoster) Completed 04/15/2024, 08/2023 Insurance [facility] MCR ADV DUAL COMPLETE
--- OUTSIDE RECORDS SUMMARY | 2025-04-05 10:06 | XMS_ITS | Encounter Summary ---
Author Organization [employer] ([place], [place], [place], [place], [place]) Address [address] [place] [address] Care Team Providers Care Excellence Specialist Name Role Phone Unavailable Primary Care Provider Unavailabl e Encounter Details Date Type Department Care Team (Latest Contact Info) Description 03/01/2025 Travel Social History Tobacco Use Types Packs/Day Years Used Date Smoking Tobacco: Never Assessed Comments Unknown Sex and Gender Information Value Date Recorded Sex Assigned at Female 03/01/2025 10:05 AM CDT Legal Sex Female 1:09 PM CDT Gender Identity Not on file Sexual Orientation Not on file documented as of this encounter Plan of Treatment Not on file documented as of this encounter Visit Diagnoses Not on filedocumented in this encounter
--- OUTSIDE RECORDS SUMMARY | 2025-04-05 10:06 | XMS_ITS | Encounter Summary ---
Author Organization [place] [address] Care Team Providers Care Gasket Former Name Role Phone Palma Jj DO Primary Care Provider + [phone] Encounter Details Date Type Department Care Team (Late st Contact Info) Description 02/16/2025 Orders Only [facility] [address] [place] [address] Julianna Lea MA Social History Tobacco Use Types Packs/Day Years [...] Date Recorded PHQ-2 Total Score 0 11/09/2023 [facility] of Occupat ional Health - Occupational Stress [...] Refills Last Filled Start Date End Date amLODIPine (NORVASC) 5 mg Oral Tablet Take 1 Tablet by mouth daily. for blood pressure 90 Tablet 02/16/2025 documented in this encounter Plan of Treatment [...] UMA MICHELLE to have help getting new [place] plan by end February 2023 General Yes Geraldine Whiteside RN Stay Tobacco Free Lifestyle No Oralia Merida CCMA documented as of this encounter Visit Diagnoses Not on filedocumented in this encounter Discontinued Medications Medication Sig Discontinue Reason Start Date End Da te amLODIPine (NORVASC) 5 mg Oral Tablet Take 1 Tablet by mouth once daily for Blood Pressure. Reorder 07/12/2024 02/16/2025 documented as of this encounter Additional Health Concerns Assessment Noted Time A fall risk assessment has been complete d for the patient 08/06/2023 8:22 AM EDT documented as of this encounter Care Teams Gasket Former Relationship Specialty Start Date End Date Palma Jj DO [address] [place] [id number] PCP - General Family Medicine 07/14/22 documented as of this encounter
--- OUTSIDE RECORDS SUMMARY | 2025-04-05 10:06 | XMS_ITS | Encounter Summary ---
Author Organization [facility] [place] [address] Care Team Providers Care Film Vault Supervisor Name Role Phone Palma Jj DO Primary Care Provider + [phone] Reason for Visit * Reason Comments Medication Refill Encounter Details Date Type Department Care Team (Late st Contact Info) Description 02/14/2025 Refill [facility] [address] [place] [address] Palma Jj DO [address] [place] [phone] Medication Refill Social History Tobacco Use Types [...] Date Recorded PHQ-2 Total Score 0 11/09/2023 [facility] of Occupat ional Health - Occupational Stress [...] CapsuleIndications :Age-related osteoporosis without current pathological fracture TAKE 1 CAPSULE IN THE MORNING EVERY THU {Q1W4} 12 Capsule 2 02/15/2025 documented in this encounter Plan of Treatment [...] UMA MICHELLE to have help getting new [place] plan by end February 2023 General Yes Geraldine Whiteside RN Stay Tobacco Free Lifestyle No Oralia Merida CCMA documented as of this encounter Visit Diagnoses Diagnosis Age-related osteoporosis without current pathological fracture Senile osteoporosis documented in this encounter Discontinued Medications Medication Sig Discontinue Reason Start Date End Da te ergocalciferol (DRISDOL) 1,250 mcg (50,000 unit) Oral CapsuleIndications:Age-re lated osteoporosis without current pathological fracture Take 1 Capsule by mouth once a week. 01/14/2024 02/15/2025 documented as of this encounter Additional Health Concerns Assessment Noted Time A fall risk assessment has been complete d for the patient 08/06/2023 8:22 AM EDT documented as of this encounter Care Teams Film Vault Supervisor Relationship Specialty Start Date End Date Palma Jj DO [address] [place] [address] PCP - General Family Medicine 07/14/22 documented as of this encounter
--- OUTSIDE RECORDS SUMMARY | 2025-04-05 10:06 | XMS_ITS | Referral Summary ---
Author Organization [employer] ([place], [place], [place], [place], [place]) Address [address] [place] [address] Care Team Providers Care Dehydrogenation Supervisor Name Role Phone Unavailable Primary Care Provider [...] file Plan of Treatment Not on file Insurance [facility] MCR ADV DUAL COMPLETE
--- OUTSIDE RECORDS SUMMARY | 2025-04-05 10:06 | XMS_ITS | Clinical Summary ---
Author Organization [facility] Address [facility] [place] [address] Care Team Providers Care Tubing Mill Operator Name Role Phone Unavailable Primary Care [...] therelease of HIV test results or diagnoses. [id number] Social History Tobacco Use Types Packs/Day Years Used Date Smoking Tobacco: Never Assessed Comments Unknown Sex and Gender Information Value Date Recorded Sex Assigned at Not on file Legal Sex Female 4:12 PM EST Gender Identity Not on file Sexual Orientation Not on file Plan of Treatment Not on file
--- OUTSIDE RECORDS SUMMARY | 2025-04-05 10:07 | XMS_ITS | Continuity of Care Document ---
Author Organization [facility] Address [address] [place] [address] Phone Care Team Providers Care Floor Covering Installer Name Role Phone Palma Jj DO Primary Care Provider + [phone] Encounters Date Type Department Care Team Description 02/16/2025 Orders Only [facility] [place] [address] [place] [address] Julianna Lea MA 02/14/2025 Refill [facility] [place] [address] [place] [address] Palma Jj, DO Medication Refill 08/19/2024 Telephone [place] [address] [place] [phone] Melania Cole, It Senior Software Engineer Java Medication Management (Gabapentin) 07/12/2024 Refill [facility] [address] Palma Jj, DO Medication Refill 07/11/2024 Refill [facility] [place] [address] [place] [address] Palma Jj, DO Medication Refill 05/31/2024 Telephone [place] [address] [place] [phone] Gilda Francis PA Prior Authorization (visco for right knee) 05/31/2024 9:15 AM EST Office Visit [facility] [address] [place] [address] Gilda Francis PA Intervertebral disc disorder with radiculopathy of lumbosacral region (Primary Dx); Osteoporosis, unspecified osteoporosis type, unspecified pathological fracture presence; Spinal stenosis of lumbar region, unspecified whether neurogenic claudication present; Neuroforaminal stenosis of lumbar spine; Lumbar radiculopathy; Spondylosis of lumbosacral region without myelopathy or radiculopathy; Failed back syndrome of lumbar spine; Myofascial pain; Chronic pain syndrome 03/28/2024 Refill [place] [address] [place] [address] Palma Jj, DO Medication Refill 02/15/2024 8:00 AM EDT Office Visit [facility] [address] [place] [address] Gilda Francis PA Cervicalgia (Primary Dx); Intervertebral [...] of right knee 01/14/2024 Orders Only [facility] [place] [address] [place] [phone] Palma Jj, DO Age-related osteoporosis without current pathological fracture (Primary Dx) 01/14/2024 Telephone [place] [address] [place] [address] Palma Jj, DO Medication Management ([facility] called on patient's behalf- requesting med change) 12/22/2023 Telephone SEP [address] [place] [address] Palma Jj, DO Other (Return call) 12/10/[address] [place] [address] Palma Jj, DO Medication Refill 11/27/[address] [place] [address] Palma Jj, DO Results (Results given) 11/20/[address] [place] [address] Palma Jj, DO Results (Lab: Vit D, CBC, Lipid, BMP, NT ProBNP) 11/11/2023 Orders Only [address] [place] [address] Palma Jj, DO Hypercholesterolemia 11/11/2023 9:00 AM EDT Office Visit [facility] [address] [place] [address] Gilda Francis PA Cervicalgia (Primary Dx); Intervertebral [...] pain 11/09/2023 10:40 AM EDT Office Visit [address] [place] [address] Palma Jj, DO Medicare annual wellness visit, subsequent (Primary Dx); Screening for diabetes mellitus; Screening for hyperlipidemia; Screening for osteoporosis; Postmenopausal; Thyroid cyst; Vitamin D deficiency; Bilateral carotid artery stenosis; Chronic diastolic (congestive) heart failure (HCC); Essential hypertension; Chronic diastolic (congestive) heart failure (HCC) 11/07/[address] [place] [address] Palma Jj, DO Medication Refill 11/03/[address] [place] [address] Palma Jj, DO Referral (Podiatry referral) 09/24/2023 Orders Only [address] [place] [address] Julianna Lea MA Spinal stenosis of lumbar region, unspecified whether neurogenic claudication present; DDD (degenerative disc disease), lumbar; Osteoporosis, unspecified osteoporosis type, unspecified pathological fracture presence; Neuroforaminal stenosis of lumbar spine; Lumbar pain; Right sided sciatica 09/14/2023 11:00 AM EDT Office Visit [facility] [place] [address] [place] [address] Rachael Steven DPM Acquired clubfoot, right foot (Primary Dx); Right foot pain; Corns and callosities; Punctate porokeratosis; Left foot pain 09/09/[address] [place] [address] Palma Jj, DO Medication Management (True Metrix Meter) 08/28/2023 Orders Only [address] [place] [address] Julianna Lea MA Essential hypertension 08/12/2023 1:05 PM EDT - 08/12/2023 11:59 PM EDT Hospital Encounter [facility] [address] [place] [address] Cervicalgia Discharge Disposition: Home or Self Care 08/06/2023 8:40 AM EDT Office Visit [address] [place] [address] Palma Jj, DO Primary osteoarthritis of right foot (Primary Dx); Chronic foot pain, right; COVID-19 vaccine administered; Bilateral carotid artery stenosis 07/28/2023 9:45 AM EDT Office Visit [facility] [address] [facility], [place] [address] Chanel Acevedo APRN Failed back syndrome of lumbar spine (Primary Dx); Intervertebral disc disorder with radiculopathy of lumbosacral region; Cervicalgia; Chronic pain syndrome; Spondylosis of lumbosacral region without myelopathy or radiculopathy 07/23/2023 10:00 AM EDT - 07/23/2023 11:59 PM EDT Hospital Encounter [facility] [address] [facility] [place] [place] [address] Palma Jj, DO PVD (peripheral vascular disease); Bilateral carotid artery stenosis Discharge Disposition: Home or Self Care 07/15/2023 Telephone [place] [address] [place] [address] Palma Jj, DO Other (Daughter requesting call back) 07/15/2023 10:40 AM EST Office Visit [place] [address] [place] [address] Palma Jj, Cellulitis of right foot (Primary Dx); Exudative age-related macular degeneration of left eye, unspecified stage (HCC); Chronic diastolic (congestive) heart failure (HCC); PVD (peripheral vascular disease); Bilateral carotid artery stenosis 07/07/2023 Telephone [facility] [place] [address] [place] [address] Palma Jj, DO Results (Results given) 07/07/2023 Telephone [facility] [place] [address] [place] [address] Palma Jj, DO Results 07/06/2023 1:51 PM EST - 07/06/2023 11:59 PM EST Hospital Encounter [facility] [address] [place], [place] [address] Acute foot pain, right Discharge Disposition: Home or Self Care 07/06/2023 1:00 PM EST Office Visit [place] [address] [place] [phone] Palma Jj, DO Acute foot pain, right (Primary Dx); Age related osteoporosis, unspecified pathological fracture presence; Essential hypertension; Spinal stenosis of lumbar region, unspecified whether neurogenic claudication present; DDD (degenerative disc disease), lumbar; Osteoporosis, unspecified osteoporosis type, unspecified pathological fracture presence; Neuroforaminal stenosis of lumbar spine; Lumbar pain; Right sided sciatica; Hypercholesterolemia; Vitamin D deficiency; GERD without esophagitis 07/06/2023 Telephone [place] [address] [place] [address] Palma Jj, DO Appointment Needed (Hurt foot x 1 day ago and cannot put weight on it or walk on it) 06/30/2023 Telephone [place] [address] [place] [address] Palma Jj, Medication Refill ( Disp Refills Start End /meloxicam (MOBIC) 15 mg Oral Tablet 30 Tablet 0 05/28/2023 - /Sig - Route: TAKE 1 TABLET BY MOUTH EVERY DAY - Oral // Disp Refills Start End /lisinopriL (PRINIVIL;ZESTRIL) 20 mg Oral Tablet tablet 30 Tablet 2 04/06/2023 07/05/2023 /Sig - Route: Take 1 Tablet by mouth daily for 90 days. - Oral // Disp Refills Start End /nortriptyline (PAMELOR) 25 mg Oral Capsule 30 Capsule 0 05/25/2023 - /Sig: Take 1 capsule in the morning and 1 capsule at dinner /); Medication Management (pt wants every one of her medications switched to 90 day supply) 06/01/2023 8:20 AM EST Office Visit [facility] [address] [place] [address] Clay Ness MD Failed back syndrome of lumbar spine (Primary Dx); Intervertebral disc disorder with radiculopathy of lumbosacral region; Cervicalgia; Chronic pain syndrome; Spondylosis of lumbosacral region without myelopathy or radiculopathy 05/28/2023 Refill [facility] [address] [place] [address] Miky Webb MD Medication Refill 05/25/[address] [address] Miky Webb MD Medication Refill 05/25/20[facility] [address] [place] [address] Miky Webb MD Medication Refill 05/25/2023 Refill [place] [place] [address] [place] [address] Mann Irene MD Medication Refill 05/25/2023 Refill [place] [place] [address] [place] [address] Palma Jj, DO Medication Refill 05/25/2023 Orders Only [facility] [place] [address] [place] [address] Palma Jj, DO 05/25/2023 Telephone [place] [place] [address] [place] [address] Palma Jj, DO Other (Discuss Medication List) 05/01/[address] [phone] Miky Webb MD 05/01/2023 [facility] [address] [address] Miky Webb MD Medication Refill 05/01/2023 Telephone [facility] [place] [address] [place] [phone] Rahul Arriaga MA New Patient 05/01/2023 10:45 AM EST [facility] [address] [place] [address] Miky Webb MD Spinal stenosis of lumbar region, unspecified whether neurogenic claudication present (Primary Dx); DDD (degenerative disc disease), lumbar; Osteoporosis, unspecified osteoporosis type, unspecified pathological fracture presence; Neuroforaminal stenosis of lumbar spine; Lumbar pain; Right sided sciatica; L5 S1 Protrusion of intervertebral disc of lumbosacral region; Vitamin D deficiency; Sciatica of right side 04/28/[address] [place] [address] Palma Jj, DO Medication Refill 04/28/[address] [place] [address] Palma Jj, DO Medication Refill 04/16/[address] [place] [address] Palma Jj, DO Medication Refill 04/16/[address] [place] [address] Mann Irene MD Medication Refill 04/15/2023 9:34 AM EST - 04/15/2023 11:59 PM EST Hospital Encounter [facility] [place] [address] Palma Jj, Recurrent syncope Discharge Disposition: Home or Self Care 04/10/2023 Orders Only [address] [place] [address] Palma Jj, Age-related osteoporosis without current pathological fracture (Primary Dx) 04/06/2023 10:40 AM EST Office Visit [address] [place] [address] Palma Jj, Recurrent syncope (Primary Dx); Essential hypertension 03/26/2023 Orders Only [address] [place] [address] Palma Jj, Spinal stenosis of lumbar region without neurogenic claudication (Primary Dx) 03/23/[address] [place] [address] Palma Jj DO Referral ([facility]) 03/20/2023 Refill [facility] [place] [address] [place] [address] Dylon Corrales MD Medication Refill 03/20/2023 10:15 AM EST Office Visit [facility] [place] [address] [place] [address] Dylon Corrales MD Spinal stenosis of lumbar region, unspecified whether neurogenic claudication present (Primary Dx); DDD (degenerative disc disease), lumbar; Neuroforaminal stenosis of lumbar spine; Osteoporosis, unspecified osteoporosis type, unspecified pathological fracture presence 03/17/2023 9:00 AM EST Telemedicine [facility] [address] [place] [address] Ramandeep Noriega APRN URI, acute (Primary Dx) 03/06/2023 Patient Outreach [place] [place] [address] [place] [address] Geraldine Whiteside, UMA CM- Longitudinal Continued; CM- Telephonic Outreach; CM-Resource Coordination 02/27/2023 10:30 AM EDT Telemedicine [place] [place] [address] [place] [address] Geraldine Whiteside, RN Encounter for support and [...] 12:30 PM EDT Office Visit [facility] [address] [place] [address] Lele Aquino MD Abnormal auditory perception, bilateral (Primary Dx); Tinnitus of both ears; Mixed conductive and sensorineural hearing loss, unilateral, 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; Sensorineural hearing loss, unilateral, right ear, with restricted hearing on the contralateral side; Ear fullness, bilateral 02/23/2023 2:45 PM EDT [facility] [place] [address] Jason Wright DO Spinal stenosis of lumbar region, unspecified whether neurogenic claudication present (Primary Dx); Neuroforaminal stenosis of lumbar spine; Lumbar radiculopathy 02/16/2023 Telephone [place] [place] [address] [place] [address] Palma Jj DO Referral (ENT) 02/13/2023 9:00 AM EDT [facility] [address] [place] [address] [address] [place] [address] Dylon Corrales MD Spinal stenosis of lumbar region, unspecified whether neurogenic claudication present (Primary Dx); Neuroforaminal stenosis of lumbar spine; Lumbar pain 01/28/2023 Orders Only [place] [address] [place] [address] Palma Jj DO 01/28/2023 9:00 AM EDT Office Visit [place] [address] [place] [address] Geraldine Whiteside RN Encounter for support and coordination of transition of care (Primary Dx); GERD without esophagitis; Thoracic spine pain; Vitamin D deficiency; L5 S1 Protrusion of intervertebral disc of lumbosacral region; Age related osteoporosis, unspecified pathological fracture presence; Acute low back pain, unspecified back pain laterality, unspecified whether sciatica present; Seasonal allergic rhinitis due to pollen 01/27/2023 Telephone [facility] [place] [address] Miky Webb MD Prior Authorization (Prolia ) 01/26/2023 Patient Outreach [place] [address] [place] [address] Geraldine Whiteside RN CM- Longitudinal Continued; CM- Telephonic Outreach; CM-Resource Coordination 01/26/2023 Telephone [place] [address] [place] [address] Palma Jj DO Appointment Needed (With Geraldine Whiteside); Medication Management (Questions about multiple meds. ) 01/23/2023 Orders Only [facility] [address] Eileen London, PharmD 01/23/2023 10:45 AM EDT [facility]illary [facility] [address] [facility] [address] [place] [address] Miky Webb MD Thoracic spine pain 01/23/2023 10:30 AM EDT Office Visit [facility] [address] [place] [address] Miky Webb MD Thoracic spine pain (Primary Dx); Age related osteoporosis, unspecified pathological fracture presence; Vitamin D deficiency; Acute low back pain, unspecified back pain laterality, unspecified whether sciatica present; L5 S1 Protrusion of intervertebral disc of lumbosacral region 01/16/2023 Orders Only [address] [place] [address] Palma Jj DO GERD without esophagitis (Primary Dx) 01/16/2023 Patient Outreach [address] [place] [address] Geraldine Whiteside RN CM- Longitudinal Continued; CM- Telephonic Outreach; CM-Resource Coordination 01/09/2023 Orders Only [facility] [address] [place] [address] Palma Jj DO 01/09/2023 8:30 AM EDT Office Visit [facility] [address] [place] [address] Geraldine Whiteside, RN Enrolled in chronic care management (Primary Dx) 01/07/2023 Telephone [facility] [address] [place] [address] Geraldine Whiteside, RN Other (returning office call ) 01/07/2023 Patient Outreach [address] [place] [address] Geraldine Whiteside, tool or die drawing checker; CM- Telephonic Outreach; CM-Resource Coordination 12/22/[address] [place] [address] Mann Irene MD Medication Refill 12/22/[address] [place] [address] Palma Jj, DO Medication Refill 12/19/2022 Orders Only [address] [place] [address] Palma Jj, DO Age-related osteoporosis without current pathological fracture (Primary Dx) 12/19/2022 Travel 12/19/2022 9:34 AM EDT - 12/19/2022 11:59 PM EDT [facility] [address] [place] [address] [place] [address] Palma Jj, DO Screening for osteoporosis; Postmenopausal Discharge Disposition: Home or Self Care 12/11/2022 4:00 PM EDT Office Visit [address] [place] [address] Palma Jj, DO Poison sumac (Primary Dx) 12/11/[address] [place] [address] Palma Jj, DO Other (Poison Sumac) 12/05/[address] [address] Bruce Oh MD Patient Question (pt needs list of back drs that she did not receive at last appointment) 12/03/2022 10:45 AM EDT Office Visit [address] [address] Bruce Oh MD History of right hip replacement (Primary Dx); Right knee pain, unspecified chronicity; Primary osteoarthritis of right knee 11/12/2022 Patient Outreach [facility] Care Man[facility] [place] [address] Olesya Estrada LSW CM- Telephonic Outreach; CM-SDOH; Care Management - Chart Review 11/07/2022 Patient Outreach [facility] [address] [place] [address] Nabil Amaro, [place], COS Referral 11/07/2022 9:00 AM EDT Office Visit [address] [place] [address] MieshaGeraldine roberts, RN Encounter for support and coordination of transition of care (Primary Dx) 11/07/2022 Patient Outreach [facility] [address] [place] [address] Nabil Amaro, [place], COS Referral 11/07/2022 8:20 AM EDT Office Visit [address] [place] [address] Palma Jj, DO Medicare annual wellness visit, subsequent (Primary Dx); Screening for osteoporosis; Postmenopausal; Burning with urination; Advanced care planning/counseling discussion; PVD (peripheral vascular disease); Essential hypertension; Bilateral carotid artery stenosis; Thyroid cyst 11/03/2022 11:00 AM EDT Ancillary Procedure [facility] [address] [address] Bruce Oh MD History of right hip replacement; Right knee pain, unspecified chronicity 10/28/2022 Telephone SEP [address] [place] [address] Palma Jj DO Information Only (Mri ) 10/28/2022 Telephone [facility] [address] [employer] [address] [address] Bruce Oh MD Knee Pain 10/28/2022 Refill SEP [address] [place] [address] Mann Irene MD Medication Refill 10/27/2022 Refill SEP [address] [place] [address] Mann Irene MD Medication Refill 10/23/2022 Telephone [facility] [address] [place] [address] Bruce Oh MD Knee Pain 10/22/2022 2:30 PM EDT Ancillary Procedure [address] [address] Bruce Oh MD Right knee pain, unspecified chronicity 10/22/2022 2:15 PM EDT Ancillary Procedure [address] [address] Bruce Oh MD History of right hip replacement 10/22/2022 2:00 [place] [address] Bruce Oh MD History of right hip replacement 10/22/2022 1:45 PM EDT Office Visit [address] [address] Bruce Oh MD History of right hip replacement (Primary Dx); Right knee pain, unspecified chronicity 10/04/[address] [place] [address] Palma Jj, Medication Refill 08/01/[address] [place] [address] Mann Irene MD Medication Refill 07/30/2022 Orders Only [address] [place] [address] Palma Jj DO Acute cystitis without hematuria (Primary Dx) 07/28/2022 Travel 07/28/2022 11:20 AM EDT - 07/28/2022 11:59 PM EDT Hospital Encounter Mobile Mammography Other Location View online schedule for mobile van location [phone] Mann Irene MD Encounter for screening mammogram for malignant neoplasm of breast Discharge Disposition: Home or Self Care 07/28/2022 8:40 AM EDT Office Visit [address] [place] [address] Palma Jj, DO Essential hypertension (Primary Dx); Dysuria 07/18/[address] [place] [address] Mann Irene MD Medication Refill 07/14/2022 9:40 AM EST Office Visit [address] [place] [address] Palma Jj, DO Essential hypertension (Primary Dx); Exudative age-related macular degeneration of left eye, unspecified stage (HCC); Thyroid cyst 07/11/[address] [place] [address] Palma Jj, DO Other (question about appt today ) 07/10/[address] [place] [address] Mann Irene MD Medication Refill 07/10/2022 Orders Only [address] [place] [address] Palma Jj, DO Essential hypertension (Primary Dx) 07/09/2022 1:40 PM EST Office Visit [address] [place] [address] Palma Jj, DO Hypertensive urgency (Primary Dx) 05/01/[address] [place] [address] Mann Irene MD Medication Refill 04/25/[address] [place] [address] Mann Irene MD Symptom Call (Light headed, dizzy, high BP) 04/24/2022 Telephone [facility] [employer] [address] [address] Fredi Nick MD Results (biotel) 04/22/2022 Refill [place] [address] [place] [address] Mann Irene MD Medication Refill 04/19/2022 Refill [facility] [place] [address] [place] [address] Mann Irene MD Medication Refill 04/17/2022 10:45 AM EST Office Visit [place] [address] [place] [address] Geraldine Whiteside RN Hospital discharge follow-up (Primary Dx) 04/17/2022 10:20 AM EST Office Visit [facility] [place] [address] 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 [address] Fredi Nick MD Syncope, unspecified syncope type Discharge Disposition: Home or Self Care 04/02/2022 Patient Outreach [facility] [address] [place] [phone] Nerissa Vargas RN Hospital Follow Up 04/01/2022 Orders Only [facility] [place] [id number] Fredi Nick MD Syncope, unspecified syncope type (Primary Dx) 03/28/2022 12:15 PM EST - 04/01/2022 1:01 PM EST Hospital Encounter [facility] [place] [id number] Marivel King DO Cho, Soung H, MD Syncope, unspecified syncope type (Primary Dx) Discharge Disposition: Home or Self Care 03/29/2022 Travel 03/27/[address] [place] [address] Mann Irene MD Appointment Needed 02/17/2022 Travel 02/17/2022 9:15 AM EDT - 02/17/2022 11:59 PM EDT Hospital Encounter [facility] [address] 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; Chronic fatigue 01/24/[address] [place] [address] Mann Irene MD Appointment Needed (Passed out once yesterday ) 10/31/2021 Travel 10/31/2021 11:35 AM EDT - 10/31/2021 11:59 PM EDT Hospital Encounter [facility] [address] [place] [address] Mann Irene MD PVD (peripheral vascular disease); Bruit Discharge Disposition: Home or Self Care 10/31/2021 11:35 AM EDT - 10/31/2021 11:59 PM EDT Hospital Encounter [facility] [facility] [address] [place] [address] Mann Irene MD Claudication Discharge Disposition: Home or Self Care 10/30/[address] [place] [address] Mann Irene MD Paperwork/forms (Handicap form ) 10/20/[address] [place] [address] Mann Irene MD Medication Refill 09/24/2021 8:20 AM EDT Office Visit [address] [place] [address] Mann Irene MD Hypercholesterolemia (Primary Dx); Claudication; Osteoarthritis, unspecified osteoarthritis type, unspecified site; Dysphagia, unspecified type; PVD (peripheral vascular disease); Bruit; Chronic fatigue; Vitamin D deficiency; Acute bacterial sinusitis 09/17/2021 Orders Only [address] [place] [address] Carl Irene MD Diarrhea, unspecified type (Primary Dx) 09/17/[address] [place] [address] Mann Irene MD Medication Reaction 09/16/2021 11:20 AM EDT Office Visit [address] [place] [address] Carl Irene MD Acute bacterial sinusitis (Primary Dx) 09/15/[address] [place] [address] Mann Irene MD Medication Refill 09/05/[address] [place] [address] Mann Irene MD Medication Refill (allergy relief) 07/22/[address] [place] [address] Mann Irene MD Medication Refill 07/16/2021 Travel 07/16/2021 11:23 AM EST - 07/16/2021 11:59 PM EST Hospital Encounter Mobile Mammography Other Location View online schedule for mobile van location [phone] Mann Irene MD Encounter for screening mammogram for malignant neoplasm of breast Discharge Disposition: Home or Self Care 03/18/2021 Refill SEP [address] [place] [address] Mann Irene MD Medication Refill (atorvastatin (LIPITOR) 10 mg Oral Yqrdxr79 Nbrqrp5802/05/2021) 03/18/[address] [place] [address] Mann Irene MD Medication Management (meloxicam (MOBIC) 15 mg Oral Dbxcfw24 [id number] ) 02/08/2021 Refill SEP [address] [place] [address] Mann Irene MD Medication Refill 02/05/2021 Travel 02/05/2021 9:00 AM EDT Office Visit [address] [place] [address] Mann Irene MD Annual physical exam (Primary Dx); Seasonal allergic rhinitis due to pollen; Needs flu shot; Hypercholesterolemia; Osteoarthritis, unspecified osteoarthritis type, unspecified site 12/06/2020 Patient Outreach [facility] [address] [place], [place] [id number] Mann Irene MD Central Patient Navigator Outreach (AWV) 09/26/2020 Refill SEP [address] [place] [address] Mann Irene MD Medication Refill (multiple meds) 05/05/2020 Refill SEP [address] [place] [address] Mann Irene MD Medication Refill 03/27/2020 Travel 03/27/[address] [place] [address] Mann Irene MD Orders (covid ) 03/23/2020 Travel 03/23/2020 8:00 AM EST Clinical Support [address] [place] [address] Jill Beck Malaise and fatigue; Vitamin D deficiency; Recurrent UTI (urinary tract infection) 03/22/2020 4:30 PM EST Office Visit [address] [place] [address] Hari, Ramandeep, BOBBIN WASHER Malaise and fatigue (Primary Dx); Vitamin D deficiency; Recurrent UTI (urinary tract infection) 03/22/2020 Travel 03/07/[address] [place] [address] Mann Irene MD Medication Refill 02/06/[address] [place] [address] Mann Irene MD Medication Refill 01/25/2020 Travel 01/25/2020 2:00 PM EDT Office Visit [facility] [address] [place] [address] Amari Wheeler MD Asymptomatic microscopic hematuria (Primary Dx) 01/12/2020 8:00 AM EDT Clinical Support [facility] [address] [place] [address] Jill Beck Hypercholesterolemia 01/11/2020 Travel 01/04/[address] [place] [address] Mann Irene MD Appointment Needed (Labs and Flu Shot) 01/02/2020 Travel 01/02/2020 3:00 PM EDT - 01/02/2020 4:15 PM EDT [facility] [place] [address] Amari Wheeler MD CYSTOSCOPY, URETEROSCOPY, LASER LITHOTRIPSY, RETROGRADE PYELOGRAM, STENT INSERTION 01/02/2020 2:45 PM EDT [facility] [place] [address] 51 London Cheng MD Powell TanyaPATRICIA 01/02/2020 12:32 PM EDT - 01/02/2020 5:15 PM EDT Hospital Encounter EDG SAME DAY SURGERY [facility] [place] [address] Amari Wheeler MD Nephrolithiasis; Nephrolithiasis Discharge Disposition: Home or Self Care 12/29/2019 Travel 12/29/2019 10:05 AM EDT - 12/29/2019 11:59 PM EDT Hospital Encounter [facility] [address] [place] [address] Covid19, [facility] Pre-op testing; Encounter for laboratory testing for COVID-19 virus Discharge Disposition: Home or Self Care 12/20/2019 Travel 12/20/2019 Refill [facility] [address] [place] [address] Amari Wheeler MD Medication Refill 12/14/2019 Travel 12/14/2019 2:00 PM EDT Procedure visit [facility] [address] [place] [address] Amari Wheeler MD Nephrolithiasis (Primary Dx) 12/09/2019 Refill [facility] [address] [place] [address] Mann Irene MD Medication Refill 12/08/2019 9:00 AM EDT Office Visit [facility] [place] [address] Mann Irene MD Annual physical exam (Primary Dx); Hypercholesterolemia; Other microscopic hematuria; Claudication 12/05/2019 11:05 AM EDT - 12/05/2019 11:59 PM EDT Hospital Encounter [place] [place] [address] Urine culture positive; Hypercholesterolemia Discharge Disposition: Home or Self Care 12/05/2019 Travel 11/28/2019 Travel 11/28/2019 1:00 PM EDT - 11/28/2019 2:15 PM EDT Surgery [facility] [address] [place] [address] Amari Wheeler MD CYSTOSCOPY STENT INSERTION OR EXCHANGE 11/28/2019 12:30 PM EDT Anesthesia Event [facility] [address] [place] [address] Raghav Nolan MD ChenangoAddieErma Villalpando APRN 11/28/2019 10:28 AM EDT - 11/28/2019 3:39 PM EDT Hospital Encounter FTT SAME DAY SURGERY [address] [place], [place] [address] Amari Wheeler MD Hypercholesterolemia (Primary Dx); Urine culture positive Discharge Disposition: Home or Self Care 11/25/2019 Travel 11/24/2019 10:20 AM EDT - 11/24/2019 11:59 PM EDT Hospital Encounter [facility] [address] [place] [address] Covid19, [facility] Pre-op testing; Encounter for laboratory testing for COVID-19 virus Discharge Disposition: Home or Self Care 11/23/2019 Orders Only [facility] [address] [place] [phone] Amari Wheeler MD Urinary tract infection without hematuria, site unspecified (Primary Dx) 11/22/2019 Telephone [facility] [address] [place] [phone] Amari Wheeler MD Other 11/22/2019 Orders Only [facility] [address] [place] [phone] Amari Wheeler MD 11/22/2019 Travel 11/21/2019 Orders Only [facility] [address] [place] [address] Cheyanne Forman MA 11/18/2019 Travel 11/17/2019 Telephone [facility] [address] [address] Oralia Krueger MA Other 11/16/2019 Travel 11/16/2019 11:40 AM EDT Office Visit [facility] [address] [place] [address] Amari Wheeler MD Urine culture positive (Primary Dx) 11/07/2019 Patient Outreach [facility] [address] [place] [address] Wanda Gilliland Care Management - Chart Review 11/02/2019 Patient Outreach [facility] [address] [place] [address] Nerissa Vargas RN ED Follow-Up Call; ED Follow-Up Call 10/31/2019 - 10/31/2019 11:32 PM EDT Emergency [facility] Emergency [address] [facility] [place] [address] Discharge Disposition: ED Dismiss - Never Arrived 10/31/2019 3:00 PM EDT Telemedicine [facility] [address] [phone] Amari Wheeler MD Other microscopic hematuria (Primary Dx) 10/30/2019 11:35 PM EDT - 10/31/2019 3:23 AM EDT Emergency [facility] Emergency [address] [facility] [place] [address] Jorge Luis Sharif MD Acute cystitis with hematuria (Primary Dx); Gross hematuria Discharge Disposition: Home or Self Care 10/30/2019 Travel 10/26/2019 Travel 10/26/2019 10:30 AM EDT - 10/26/2019 11:30 AM EDT Surgery [facility] [place] [address] Amari Wheeler MD CYSTOSCOPY TRANSURETHRAL RESECTION BLADDER TUMOR - FULGURATION/EVACUATION OF CLOT 10/26/2019 10:30 AM EDT Anesthesia Event [facility] [place] [address] Michelle Tucker MD Powell, Jeanne, APRN 10/26/2019 8:44 AM EDT - 10/26/2019 11:56 AM EDT Hospital Encounter ED[facility] [place], [place] [id number] Amari Wheeler MD Hematuria; Hematuria, unspecified type Discharge Disposition: Home or Self Care 10/21/2019 9:51 AM EDT - 10/21/2019 11:59 PM EDT Hospital Encounter [facility] [address] [place] [address] Covid19, [facility] Pre-op testing; Encounter for laboratory testing for COVID-19 virus Discharge Disposition: Home or Self Care 10/20/2019 Travel 10/19/2019 Telephone [facility] [address] [address] Oralia Kruegre MA Other 10/19/2019 Telephone [facility] [address] [place] [address] Mann Irene MD Other (needing appt ) 10/12/2019 Telephone [facility] [address] [address] Oralia Krueger MA Other 10/11/2019 Telephone [facility] [address] [address] Oralia Krueger MA Other 10/10/2019 12:05 PM EDT - 10/10/2019 11:59 PM EDT Hospital Encounter [facility] [address] [place] [address] Hematuria, unspecified type Discharge Disposition: Home or Self Care 10/10/2019 Travel 10/10/2019 11:40 AM EDT Procedure visit [facility] [address] [address] Amari Wheeler MD Hematuria, unspecified type (Primary Dx) 09/23/2019 Travel 09/23/2019 Patient Outreach [facility] [address] [place] [address] Mann Irene MD Central Patient Navigator Outreach 09/22/2019 Travel 08/16/2019 Refill [facility] [address] [place] [address] Mann Irene MD Medication Refill 08/11/2019 Travel 08/10/2019 Telephone [facility] [address] [place] [address] Oralia Krueger MA Other 08/09/2019 Orders Only [facility] [place] [address] [place], [place] [address] Elida Pavon CCMA Seasonal allergic rhinitis due to pollen 08/09/2019 Telephone [place] [address] [place], [place] [address] Mann Irene MD Medication Refill 08/04/2019 Travel 07/29/2019 Travel 07/25/2019 Orders Only [facility] [address] [place] [address] Shaniqua Bustillo MA Urinary tract infection without hematuria, site unspecified (Primary Dx) 07/25/2019 Telephone [facility] [address] [place] [address] Amari Wheeler MD Other 07/25/2019 Telephone [place] [address] [place], [place] [address] Mann Irene MD Urinary Tract Infection 07/22/2019 Travel 07/22/2019 8:56 AM EDT - 07/22/2019 11:59 PM EDT Hospital Encounter [facility] [address] [place] [address] Amari Wheeler MD Recurrent UTI; Feeling of incomplete bladder emptying Discharge Disposition: Home or Self Care 07/20/2019 Travel 07/20/2019 11:30 AM EDT Office Visit [facility] [address] [place] [address] Amari Wheeler MD Recurrent UTI (Primary Dx); Feeling of incomplete bladder emptying 07/04/2019 Travel 07/04/[address] [address] [place] [address] Mann Irene MD Referral 05/20/[address] [place] [address] Mann Irene MD Medication Refill 04/20/[address] [place] [address] Mann Irene MD Medication Management (levoFLOXacin (LEVAQUIN) 750 mg Oral Tablet7 [id number]) 04/18/[address] [place] [address] Mann Irene MD Results (returning call for results ) 04/17/2019 Orders Only [address] [place] [address] HariCorieRamandeep, BOBBIN WASHER UTI (urinary tract infection), uncomplicated (Primary Dx) 04/15/2019 9:00 AM EST Office Visit [address] [place] [address] Ramandeep Noriega, BOBBIN WASHER Recurrent UTI (urinary tract infection) (Primary Dx); Dysuria 04/04/[address] [place] [address] Mann Irene MD Medication Refill 03/16/[address] [place] [address] Mann Irene MD Medication Refill 03/14/2019 9:30 AM EST - 03/14/2019 9:45 AM EST Surgery [facility] [address] [place] [address] Conor Ramirez MD CATARACT EXTRACTION WITH PHACOEMULSIFICATION AND INTRAOCULAR LENS 03/14/2019 9:30 AM EST Anesthesia Event [facility] [address] [place] [address] Viola Parrish MD Oliver, Richard G MD 03/14/2019 7:48 AM EST - 03/14/2019 10:20 AM EST Hospital Encounter [facility] [place] [address] Conor Ramirez MD Discharge Disposition: Home or Self Care 02/28/2019 Travel 02/28/2019 9:30 AM EDT - 02/28/2019 9:45 AM EDT Surgery [facility] [place] [address] Conor Ramirez MD CATARACT EXTRACTION WITH PHACOEMULSIFICATION AND INTRAOCULAR LENS 02/28/2019 9:37 AM EDT Anesthesia Event [facility] [address] [address] Lexi Golden MD Oliver, Richard G, MD 02/28/2019 8:06 AM EDT - 02/28/2019 10:28 AM EDT Hospital Encounter [facility] [place] [address] Conor Ramirez MD Discharge Disposition: Home or Self Care 02/23/2019 Travel 02/21/2019 10:40 AM EDT Office Visit [facility] [address] [place] [address] Carl Irene MD Pre-op examination (Primary Dx); Age-related cataract of both eyes, unspecified age-related cataract type; Osteoarthritis, unspecified osteoarthritis type, unspecified site; Need for influenza vaccination; UTI (urinary tract infection), uncomplicated 02/11/2019 Orders Only [facility] [address] [place] [address] Brittany Slaughter CCMA 02/10/2019 4:40 PM EDT Office Visit [facility] [address] [place] [address] Ramandeep Noriega APRN UTI (urinary tract infection), uncomplicated (Primary Dx); Dysuria 02/10/2019 11:12 AM EDT - 02/10/2019 11:59 PM EDT Hospital Encounter [address] [address] Mann Irene MD Post-menopausal Discharge Disposition: Home or Self Care 02/09/2019 Patient Outreach [place] [address] [place] [address] Jr Jackson RN Osteoporosis (dexa) 01/27/2019 Patient Outreach [place] [address] [place] [address] Sofia Villegas, PharmD Medication Management 01/26/2019 Orders Only [place] [address] [place] Mann Irene MD Encounter for medication review (Primary Dx) 01/02/2019 Refill [place] [address] [place] [address] Mann Irene MD Medication Refill 12/31/2018 Patient Outreach [place] [address] [facility] [place] [address] Mann Irene MD Osteoporosis (osteoporosis screening) 12/28/2018 9:29 AM EDT - 12/31/2018 9:30 AM EDT Hospital Encounter [facility] [address] [place] [address] [place] [place] [phone] Bruce Oh MD Discharge Disposition: Longterm Facility 12/28/2018 Travel 12/28/2018 2:45 PM EDT - 12/28/2018 4:00 PM EDT Surgery [facility] [place] [address] Bruce Oh MD ARTHROPLASTY, KNEE, TOTAL, OPEN 12/28/2018 2:15 PM EDT Anesthesia Event [facility] [place] [address] Eduardo Interiano MD Powell, Jeanne, APRN 12/25/2018 Refill [place] [address] [place] [address] Mann Irene MD Medication Refill 12/16/2018 Orders Only [place] [address] [place] [address] Mann Irene MD Cataract of left eye, unspecified cataract type (Primary Dx); Cataract (lens) fragments in eye following cataract surgery; Cataract of right eye, unspecified cataract type 12/15/2018 Travel 12/15/2018 8:37 AM EDT - 12/15/2018 11:59 PM EDT Hospital Encounter ED[facility] PRE-ADMIT TESTING [facility] [address] [place], [place] [id number] Bruce Oh MD Anticoagulation adequate (Primary Dx) Discharge Disposition: Home or Self Care 12/06/2018 9:40 AM EDT Office Visit [address] [place] [address] Mann Irene MD Annual physical exam (Primary Dx); Claudication; Osteoarthritis, unspecified osteoarthritis type, unspecified site; Pre-op examination 11/19/2018 Refill SEP [address] [place] [address] Mann Irene MD Medication Refill 10/18/2018 Refill SEP [address] [place] [address] Mann Irene MD Medication Refill 10/15/2018 8:34 AM EDT - 10/15/2018 11:59 PM EDT Hospital Encounter [facility] [address] [place] [address] Mann Irene MD Encounter for screening for malignant neoplasm of breast Discharge Disposition: Home or Self Care 09/14/2018 Refill SEP [address] [place] [address] Mann Irene MD Medication Refill 09/13/2018 Refill SEP [address] [place] [address] Mann Irene MD Medication Refill 09/10/2018 Telephone SEP [address] [place] [address] Mann Irene MD Referral 07/15/[address] [place] [address] Mann Irene MD Medication Refill 07/12/[address] [place] [address] Mann Irene MD Medication Refill 03/05/2018 2:40 PM EDT Office Visit [address] [place] [address] Ramandeep Noriega APRN Viral gastroenteritis (Primary Dx); Dizziness; Hypernatremia 03/02/[address] [place] [address] Mann Irene MD Medication Refill 01/23/[address] [place] [address] Mann Irene MD Medication Refill 12/11/2017 9:22 AM EDT - 12/11/2017 11:59 PM EDT Hospital Encounter [facility] [place] [phone] Mann Irene MD Claudication Discharge Disposition: Home or Self Care 11/17/[address] [place] [address] Mann Irene MD Medication Refill 10/13/2017 8:00 AM EDT Office Visit [address] [place] [address] Mann Irene MD Hypercholesterolemia (Primary Dx); Hypernatremia; Need for hepatitis C screening test; Screening for deficiency anemia; Claudication; Acute bronchitis, unspecified organism 09/29/[address] [place] [address] Mann Irene MD Medication Refill 09/14/2017 2:12 PM EDT - 09/14/2017 11:59 PM EDT Hospital Encounter Mobile Mammography Other Location View online schedule for mobile van location [phone] Mann Irene MD Encounter for screening mammogram for breast cancer Discharge Disposition: Home or Self Care 09/11/2017 10:50 AM EDT Office Visit [address] [place] [address] Mann Irene MD Well adult exam (Primary Dx); Encounter for screening mammogram for breast cancer; Osteoarthritis, unspecified osteoarthritis type, unspecified site; UTI (urinary tract infection), uncomplicated 08/31/[address] [place] [address] Mann Irene MD Medication Refill 07/18/[address] [place] [address] Mann Irene MD Medication Refill 04/25/[address] [place] [address] Mann Irene MD Medication Refill 01/06/[address] [place] [address] Mann Irene MD Medication Refill 12/01/[address] [place] [address] Mann Irene MD Medication Problem 11/28/[address] [place] [address] Mann Irene MD Medication Refill 11/23/[address] [place] [address] Mann Irene MD Medication Refill 10/01/2016 4:40 PM EDT Office Visit [address] [place] [address] Mark Rosas MD Sinusitis, unspecified chronicity, unspecified location (Primary Dx) 10/01/[address] [place] [address] Mann Irene MD Medication Refill 09/30/[address] [place] [address] Mann Irene MD Referral 03/11/2016 3:40 PM EDT Office Visit [address] [place] [address] Mann Irene MD Pneumonia of right lower lobe due to infectious organism (Primary Dx) 01/25/[address] [place] [address] Mann Irene MD Other (bloodwork) 01/23/2016 4:09 PM EDT - 01/23/2016 11:59 PM EDT Hospital Encounter [facility] [place] [address] Annual physical exam; Screening for cholesterol level; Screening for thyroid disorder Discharge Disposition: Home or Self Care 01/23/2016 8:00 AM EDT Clinical Support [address] [place] [address] Brittany Slaughter CCMA Hypercholesterolemia (Primary Dx) 01/08/2016 4:00 PM EDT Office Visit [address] [place] [address] Oralia Hall PA-C Allergic rhinitis, seasonal (Primary Dx); Hyperlipidemia; Osteoarthritis, unspecified osteoarthritis type, unspecified site; Annual physical exam; Screening for cholesterol level; Screening for thyroid disorder 10/04/[address] [place] [address] Mann Irene MD Medication Refill 09/28/[address] [place] [address] Mann Irene MD Medication Refill 09/04/2015 11:40 AM EDT Office Visit [address] [place] [address] Latesha Cabral APRN Acute bacterial sinusitis (Primary Dx); Acute bronchitis, unspecified organism 09/03/[address] [place] [address] Mann Irene MD Other 08/29/[address] [place] [address] Mann Irene MD Referral 07/30/2015 11:50 AM EDT Office Visit [address] [place] [address] Mann Irene MD Fever, unspecified fever cause (Primary Dx); Acute gastroenteritis 07/30/[address] [place] [address] Mann Irene MD Illness 07/27/[address] [place] [address] Mann Irene MD Other ([facility] Referral) 05/14/[address] [place] [address] Mann Irene MD Medication Refill 03/12/2015 Orders Only [address] [place] [address] Stefania Oquendo MD Pain of toe of right foot (Primary Dx) 03/02/2015 8:57 PM EDT - 03/02/2015 11:59 PM EDT Hospital Encounter [facility] [place] [address] Acute idiopathic gout of right foot Discharge Disposition: Home or Self Care 03/02/2015 2:30 PM EDT Office Visit [address] [place] [address] Stefania Oquendo MD Menopausal symptoms (Primary Dx); Acute idiopathic gout of right foot; Psoriasis 01/18/[address] [place] [address] Mann Irene MD Medication Refill 12/22/[address] [place] [address] Mann Irene MD Medication Refill 11/27/[address] [place] [address] Mann Irene MD Medication Refill 10/04/2014 3:50 PM EDT Office Visit [address] [place] [address] Stefania Oquendo MD Bronchitis (Primary Dx) 09/01/2014 6:01 PM EDT - 09/01/2014 11:59 PM EDT Hospital Encounter [facility] [place] [address] Well adult exam Discharge Disposition: Home or Self Care 09/01/2014 8:20 AM EDT Office Visit [address] [place] [address] Mann Irene MD Well adult exam (Primary Dx); Hand dermatitis; Hip joint replacement by other means; Hypercholesterolemia 08/10/[address] [place] [address] Mann Irene MD Medication Refill 08/09/[address] [place] [address] Mann Irene MD Medication Refill 07/10/2014 8:45 PM EST - 07/10/2014 11:59 PM EST Hospital Encounter [facility] [place] [address] Discharge Disposition: Home or Self Care 07/10/2014 Orders Only [facility] [address] [place] [address] Edil Mann MD 07/07/2014 Telephone [facility] [address] [place] [address] Edil Mann MD Reschedule 06/29/2014 Patient Outreach [address] [place] [address] Sujatha Goldman RN Care Transition (follow up ) 06/02/2014 Telephone SEP [facility] [address] [facility] [address] [place] [address] Edil Mann MD Reschedule 06/02/2014 Telephone SEP [address] [place] [address] Sujatha Goldman RN Care Transition (Follow up) 06/02/2014 Telephone SEP [address] [place] [address] Mann Irene MD Other 06/01/2014 Patient Outreach [address] [place] [address] Sujatha Goldman RN Care Transition (Follow up call) 05/15/2014 Telephone SEP [address] [place] [address] Mann Irene MD Referral 05/10/2014 1:00 PM EST Office Visit [address] [place] [address] Mark Rosas MD Viral illness (Primary Dx); Elevated BP 05/10/[address] [place] [address] Mann Irene MD Hypertension 04/28/2014 Patient Outreach [address] [place] [address] Sujatha Goldman RN Care Transition (Face to face encounter) 04/28/2014 10:40 AM EST Office Visit [address] [place] [address] Mann Irene MD Hand dermatitis (Primary Dx); Diarrhea 03/29/2014 Patient Outreach [facility] [address] [place] [address] Sujatha Goldman RN Care Transition (returning call) 03/28/2014 Patient Outreach [facility] [address] [place] [address] Sujatha Goldman RN Care Transition (Follow up call) 03/14/[address] [place] [address] Mann Irene MD Medication Refill 03/07/2014 Refill SEP [address] [place] [address] Mann Irene MD Medication Refill 03/06/2014 2:00 PM EDT Office Visit [address] [place] [address] Mann Irene MD OA (osteoarthritis)-s/p RIGHT TOTAL HIP REPLACEMENT 02/16/14. (Primary Dx) 02/28/2014 Patient Outreach [facility] [address] [place] [address] Sujatha Goldman RN Care Transition (Hospital follow up call) 02/20/2014 6:45 PM EDT - 02/25/2014 3:10 PM EDT Hospital Encounter FTT LONG TERM [facility] [place] [address] Enrique Baker MD Screening for tuberculosis (Primary Dx); At risk for constipation; Pain; High cholesterol; Prevention of blood clots; Anemia; Hypokalemia Discharge Disposition: Home Health Care [facility] 02/24/2014 Telephone SEP [address] [place] [address] Mann Irene MD Other 02/16/2014 6:27 AM EDT - 02/20/2014 5:34 PM EDT Hospital Encounter EDG [address] [facility] [place] [address] Bruce Oh MD OA (osteoarthritis) (Primary Dx); Hypercholesterolemia; Hypernatremia Discharge Disposition: Longterm Facility 02/16/2014 9:00 AM EDT - 02/16/2014 10:30 AM EDT Surgery EDG PERIOP [facility] [address] [place] [address] Bruce Oh MD ARTHROPLASTY, HIP, TOTAL, ANTERIOR (KYLEE/NIC) 02/14/2014 Telephone [place] [address] [place] [address] Mann Irene MD Other 02/11/2014 Refill [place] [address] [place] [address] Mann Irene MD Medication Refill 02/09/2014 9:00 AM EDT - 02/09/2014 11:59 PM EDT Hospital Encounter [place] [address] Provider, Edg Total Joint Class Discharge Disposition: Home or Self Care 02/09/2014 7:30 AM EDT - 02/09/2014 8:59 AM EDT Hospital Encounter EDG PRE-ADMIT TESTING [facility] [place] [address] OA (osteoarthritis) (Primary Dx); Pre-op testing; Anticoagulant disorder Discharge Disposition: Home or Self Care 01/19/2014 9:40 AM EDT Office Visit [place] [address] [place] [address] Mann Irene MD Dysuria (Primary Dx) 01/17/[address] [place] [address] Edil Mann MD Other 01/16/2014 8:54 PM EDT - 01/16/2014 11:59 PM EDT Hospital Encounter EDG LAB LAURA PROCESSING [facility] [place] [address] Dysuria Discharge Disposition: Home or Self Care 01/16/2014 3:00 PM EDT Office Visit [place] [address] [place] [address] Mann Irene MD UTI (urinary tract infection) (Primary Dx); Dysuria 01/16/[address] [place] [address] Mann Irene MD Urinary Tract Infection 01/13/[address] [place] [address] Mann Irene MD Paperwork/forms 12/22/[address] [place] [address] Mann Irene MD Other 12/22/2013 Orders Only [address] [place] [address] Mann Irene MD Hip fracture, unspecified laterality, closed, initial encounter (HCC) (Primary Dx) 12/21/2013 4:35 PM EDT - 12/21/2013 11:59 PM EDT Hospital Encounter [facility] [address] [place] [address] Mann Irene MD Leg pain Discharge Disposition: Home or Self Care 12/19/2013 7:09 PM EDT - 12/19/2013 11:59 PM EDT Hospital Encounter EDG LAB LAURA PROCESSING [facility] [place] [address] Dysuria Discharge Disposition: Home or Self Care 12/19/2013 Orders Only [address] [place] [address] Stefania Oquendo MD Pain (Primary Dx); Difficulty walking 12/19/2013 12:45 PM EDT Office Visit [address] [place] [address] Mann Irene MD Dysuria (Primary Dx); UTI (lower urinary tract infection); Leg pain, central, right 12/17/[address] [place] [address] Mann Irene MD Medication Refill 12/16/2013 3:41 PM EDT - 12/16/2013 11:59 PM EDT Hospital Encounter EDG LAB LAURA PROCESSING [facility] [place] [address] Thigh pain, right Discharge Disposition: Home or Self Care 12/16/2013 1:04 PM EDT - 12/16/2013 3:40 PM EDT Hospital Encounter [facility] XRAY [address] [place] [address] Thigh pain, right Discharge Disposition: Home or Self Care 12/16/2013 11:00 AM EDT Office Visit [facility] [address] [place] [address] Stefania Oquendo MD Thigh pain, right (Primary Dx) 12/12/2013 Orders Only [facility] [address] [place] [address] [place] [address] Kindra Wren MA Special screening for malignant neoplasms, colon (Primary Dx) 10/31/2013 Refill SEP [facility] [address] [place] [address] Mann Irene MD Medication Refill 10/24/2013 Telephone [facility] [address] [place] [place] [address] Edil Mann MD Reschedule (COLON) 10/11/2013 Telephone [place] [address] [place] [address] Mann Irene MD Results 10/07/2013 12:22 PM EDT - 10/07/2013 11:59 PM EDT Hospital Encounter EDG VASCULAR LAB [facility] [place] [address] Mann Irene MD Claudication Discharge Disposition: Home or Self Care 10/07/2013 11:50 AM EDT - 10/07/2013 12:18 PM EDT Hospital Encounter [facility] [place] [address] Mann Irene MD Other screening mammogram Discharge Disposition: Home or Self Care 10/07/2013 12:19 PM EDT - 10/07/2013 12:21 PM EDT Hospital Encounter EDG ECHO [facility] [address] [place] [address] Mann Irene MD Heart murmur Discharge Disposition: Home or Self Care 09/26/2013 7:11 PM EDT - 09/26/2013 11:59 PM EDT Hospital Encounter EDG LAB LAURA PROCESSING [facility] [place] [address] Hypercholesterolemia Discharge Disposition: Home or Self Care 09/26/2013 9:20 AM EDT Office Visit [facility] [place] [facility] [place] [address] Mann Irene MD Well adult exam (Primary Dx); Claudication; Other screening mammogram; Heart murmur; Screen for colon cancer; Hypercholesterolemia; Osteoarthritis 06/19/2013 Refill [place] [address] [place] [address] Mann Irene MD Medication Refill 04/27/2013 Telephone [place] [address] [place] [address] Mann Irene MD Results 04/14/2013 9:10 AM EST - 04/14/2013 11:59 PM EST Hospital Encounter [facility] [address] [place] [address] Hyperlipidemia (Primary Dx) Discharge Disposition: Home or Self Care 04/06/2013 Orders Only [facility] [place] [place] [address] Mann Irene MD Hyperlipidemia (Primary Dx) 03/18/2013 3:00 PM EST Office Visit [facility] [address] [place] [address] Mann Irene MD Osteoarthritis (Primary Dx); Other screening mammogram; Colon cancer screening 12/07/[address] [place] [address] Mann Irene MD Other (Was given some cream Thursday and is not helping seems worse please advise) 12/03/2012 4:00 PM EDT Office Visit [facility] [place] [place] [address] Mann Irene MD Malar Rash (Primary Dx) 11/03/2012 12:00 PM EDT - 11/03/2012 1:58 PM EDT Surgery EDG PERIOP [facility] [place] [address] Elza Bautista MD LUMBAR LAMINECTOMY/DISCECTOMY (COVERS FACETECTOMY) 11/03/2012 8:17 AM EDT - 11/03/2012 3:51 PM EDT Hospital Encounter EDG SAME DAY SURGERY [facility] [place] [address] Elza Bautista MD Discharge Disposition: Home or Self Care 10/28/2012 10:43 AM EDT - 10/28/2012 11:59 PM EDT Hospital Encounter EDG PRE-ADMIT TESTING [facility] [place] [address] Discharge Disposition: Home or Self Care 10/13/2012 11:40 AM EDT Office Visit [facility] [place] [address] Mann Irene MD Jordy gracia (Primary Dx); Need for pneumococcal vaccination; Weight gain 09/21/2012 7:46 AM EDT - 09/21/2012 11:59 PM EDT Hospital Encounter [facility] [address] [place] [address] Mann Irene MD Low back pain Discharge Disposition: Home or Self Care 09/15/2012 Telephone [facility] [place] [address] Mann Irene MD Other 09/13/2012 4:10 PM EDT - 09/13/2012 11:59 PM EDT Hospital Encounter EDG LAB LAURA PROCESSING [facility] [address] [place] [id number] Well adult exam Discharge Disposition: Home or Self Care 09/13/2012 10:25 AM EDT - 09/13/2012 4:09 PM EDT Hospital Encounter GRT XRAY [address] [place] [address] Low back pain Discharge Disposition: Home or Self Care 09/13/2012 8:30 AM EDT Office Visit [facility] [address] [place] [address] Mann Irene MD Low back pain (Primary Dx); Well adult exam 02/21/2004 10:34 AM EDT - 02/21/2004 11:59 PM EDT Hospital Encounter [facility] W[facility] MOB EDMann Bell MD 02/22/2003 10:02 AM EDT - 02/22/2003 11:59 PM EDT Hospital Encounter [facility]OB Mann Barbosa MD 11/21/2002 7:48 PM EDT - 11/21/2002 11:59 PM EDT Hospital Encounter [facility] LAB EDG Edil Mann MD 02/22/2002 11:31 AM EDT - 02/22/2002 11:59 PM EDT Hospital Encounter [facility] WOM Luis Velazquez MD 07/27/2000 9:55 PM EST - 07/27/2000 10:46 PM EST Emergency [facility] EDG Flakito Rock MD [...] Encounter [facility] WOM Luis Velazquez MD 04/17/1994 2:58 PM EST - 04/17/1994 11:59 PM EST Hospital Encounter [facility] EPIC CON UNK EDG Harjeet Celis Allergies Active Allergy Reactions Criticality Noted Date Comments Celecoxib Rash High 02/16/2014 [place] Rash 01/01/2023 Medications aspirin 81 mg Oral Tablet, Delayed Release (E.C.) Take 1 Tablet by mouth every morning. 90 Tablet 2 4 Active lisinopriL (PRINIVIL;ZESTRIL) 20 mg Oral Tablet tabletIndications:E ssential hypertension Take 1 Tablet by mouth daily for 360 days. 90 Tablet 3 4 Active atorvastatin (LIPITOR) 20 mg Oral TabletIndications:H ypercholesterolemia Take 1 Tablet by mouth daily for 360 days. 90 Tablet 3 4 Active nortriptyline (PAMELOR) 25 mg Oral CapsuleIndications: Spinal stenosis of lumbar region, unspecified whether neurogenic claudication present,DDD (degenerative disc disease), lumbar,Osteoporosis , unspecified osteoporosis type, unspecified pathological fracture presence,Neuroforam inal stenosis of lumbar spine,Lumbar pain,Right sided sciatica TAKE 1 CAPSULE IN THE MORNING AND 1 CAPSULE AT DINNER 180 Capsule 3 4 Active meloxicam (MOBIC) 15 mg Oral TabletIndications:S kathy stenosis of lumbar region, unspecified whether neurogenic claudication present,DDD (degenerative disc disease), lumbar,Osteoporosis , unspecified osteoporosis type, unspecified pathological fracture presence,Neuroforam inal stenosis of lumbar spine,Lumbar pain,Right sided sciatica TAKE 1 TABLET EVERY DAY 90 Tablet 3 4 Active gabapentin (NEURONTIN) 300 mg Oral CapsuleIndications: Osteoporosis, unspecified osteoporosis type, unspecified pathological fracture presence,Spinal stenosis of lumbar region, unspecified whether neurogenic claudication present,Neuroforami nal stenosis of lumbar spine,Lumbar radiculopathy Take 1 Capsule by mouth nightly. 30 Capsule 2 5 Active famotidine (PEPCID) 40 mg Oral TabletIndications:G ERD without esophagitis TAKE 1 TABLET BY MOUTH TWICE DAILY 180 Tablet 3 5 Active ergocalciferol (DRISDOL) 1,250 mcg (50,000 unit) Oral CapsuleIndications: Age-related osteoporosis without current pathological fracture TAKE 1 CAPSULE IN THE MORNING EVERY THU {Q1W4} 12 Capsule 2 5 Active amLODIPine (NORVASC) 5 mg Oral Tablet Take 1 Tablet by mouth daily. for blood pressure 90 Tablet 5 Active Active Problems Patient Care Coordination No te Formatting of this note is d ifferent from the original. [facility] Ness MD Controlled Substance Protocol Completed: NS Appt 08/29/24, 10/20/24, SNC Appt 10/28/23, 11/03/23 Gabapentin and/or Pregabalin A. Informed Consent Statement signed (Yearly) ( 05/31/2024 ) B. Controlled Substance Agreement signed (Yearly) ( 05/31/2024 ) D. Osei report completed (EVERY 3 MONTHS) ( 10/20/2024 ) Pharmacy: [facility] [address] [place] [address] [address] [facility] [phone] Problem Noted Date Diagnosed Date Chronic diastolic [...] day. [place] 300 qhs, [place] 25 bid. [place] 5 q8 prn #15. Miky Webb MD [facility] [phone] GERD without esophagitis 01/16/2023 Age-related osteoporosis wit [...] ft eye 02/28/2022 Overview (07/14/2022): Follows with seeing eye dog trainer Assessment & Plan (07/15/2023 7:46 AM EST): Recommend continue follow up with ophthalmology Assessment & Plan (07/14/2022 10:15 AM EST): -continue to follow with seeing eye dog trainer Advanced atrophic nonexudati ve age-related macular degeneration [...] (12/19/2019): Added automatically from request for surgery [id number] Urine culture positive 11/17/201902/05 Overview (11/17/2019): Added automatically from request for surgery [id number] Hematuria 10/11/2019 07/14/2022 Overview (10/11/2019): Added automatically from request for surgery [id number] Hyperosmolality and hypernatremia 12/31/2018 07/14/2022 Pre-op examination 12/06/2018 9 Assessment & Plan (12/06/2018 11:24 AM EDT): Revised Faustin Cardiac Risk Index (Circulation 1999; 100: 3147-1299) 1. High risk surgical procedures (intraperitoneal, intrathoracic, [...] physical therapy 02/21/201402/05 Hypernatremia 02/16/2014 02/21/2019 Immunizations Immunization Administration Dates Next Due Influenza High Dose 01/13/2024,,02/21/2019,01/06,02/09/2016,02/21/2015 Influenza Vaccine Quadrivale nt Adjuvanted 03/29/2022,01/28/2020 Influenza Vaccine, Unspecifi ed Formulation 02/09/2016,02/04/2014 PPD Test 02/20/2014 Jibestream SARS-CoV-2 Vaccine Tr is-sucrose 12+ Yrs 08/06/2023 Pneumococcal Conjugate Vacci ne 13 Valent 02/28/2015 Pneumococcal Polysaccharide 23 Valent 10/13/2012 Quadrivalent Influenza High Dose 02/05/2021 TST,Unspecified Formulation 01/07/2019, 9 Tdap 02/28/2015 Zoster Recombinant 04/15/2024,01/13/2024 Family History Medical History Relation Name Comments Early Brother accident Early Father accident Early Mother accident Early Sister Substance Abuse Sister Anesth Problems Neg Hx Relation Name Status Comments Brother Father Mother Sister Social History Smoking Status as of 04/05/2025 Tobacco Use Types Packs/Day Years Used Date Smoking Tobacco: Never Assessed Overall Financial Resource Strain (CARDIA) Answe r Date Recorded How hard is it for you to pa y for the very basics like food, housing, medical care, and heating? Somewhat hard 02/27/2023 PHQ-2 Answer Date Recorded PHQ-2 Total Score 0 11/09/2023 [facility] - [...] in a fdc (including now)? No 11/12/2022 Sex and Gender Information Value Date Recorded Sex Assigned at Not on file Legal Sex Female 5:30 PM EDT Gender Identity Not on file Sexual Orientation Not on file Last Filed Vital Signs Vital Sign Reading Time Taken Comments Blood Pressure 130/90 11/09/2023 10:29 AM EDT Pulse 98 05/31/2024 9:08 AM EST Temperature 36.8 C (98.2 F) 11/09/2023 10:29 AM EDT Respiratory Rate 18 11/09/2023 10:29 AM EDT Oxygen Saturation 98% 05/31/2024 9:08 AM EST Inhaled Oxygen Concentration - - Weight 68.9 kg (152 lb) 02/15/2024 7:53 AM EDT Height 152.4 cm (5') 07/28/2023 9:18 AM EDT Body Mass Index 29.69 07/28/2023 9:18 AM EDT Plan of Treatment Not on file Medical Devices Implanted Type Area Net Developer Device Identifier Shelf Expiration Date Model / Serial / Lot Stent Contour 6 X 24 #[id number] - [id number] Implanted:Qty: 1 on 01/02/2020 by Amari Wheeler MD at [facility] Stent Right: Ureter [employer]:MICROVASIVE: UROLOGY [id number] / / [id number] Head V40 Ceramic Delta Biolox 36mm/-2.5 - [id number] Implanted:Qty: 1 on 02/16/2014 by Bruce Oh MD at [facility] Right: Hip KYLEE:ORTHOPED ICS 01/08/2019 6570-0-43 6 / / [id number] Stem Femoral Accolade Ii 127 Degree Size 5 - [id number] Implanted:Qty: 1 on 02/16/2014 by Bruce Oh MD at [facility] Right: Hip KYLEE:ORTHOPED ICS 02/07/2019 [id number] / / [id number] Insert Trident X 3 0 Degree 36mm D - [id number] Implanted:Qty: 1 on 02/16/2014 by Bruce Oh MD at [facility] Right: Hip K[employer]E:ORTHOPED ICS 01/08/2019 623-00-36 D / / [id number] Screw Bone Cancellous 6.5mm X 30mm - [id number] Implanted:Qty: 1 on 02/16/2014 by Bruce Oh MD at [facility] Right: Hip KYLEE:ORTHOPED [facility] 02/07/2019 [id number] -1 / / [id number] Shell Acetabular Hole Cluster Hemispherical Tritanium D 52mm - [id number] Implanted:Qty: 1 on 02/16/2014 by Bruce Oh MD at [facility] Right: Hip KYLEE:ORTHOPED [facility] 11/07/2018 502-03-52 D / / [id number] Cmpnt Fem 3 Kn Lt Crcte Rtn Bead Trthln Pa - [id number] Implanted:Qty: 1 on 12/28/2018 by Bruce Oh MD at [facility] Left: Knee KYLEE:ORTHOPED [facility] 10/14/2023 [id number] / / [id number] Patella Backed Metal Tritanium Asymmetric A 35 X 10 - [id number] Implanted:Qty: 1 on 12/28/2018 by Bruce Oh MD at [facility] Left: Knee KYLEE:ORTHOPED [facility] 05/18/2023 5552-L-35 0 / / [id number] Insert Bearing Tibial Cs Triathlon X 3 Sz 4-11mm - [id number] Implanted:Qty: 1 on 12/28/2018 by Bruce Oh MD at [facility] Left: Knee KYLEE:ORTHOPED [facility] 10/04/2023 [id number] / / [id number] Bsplt Tib Trthln 4 Kn Tritanium - [id number] Implanted:Qty: 1 on 12/28/2018 by Bruce Oh MD at [facility] Left: Knee KYLEE:ORTHOPED [facility] 10/11/2023 5536-B-40 0 / / [id number] Lens Intraocular Preloaded 19.0 Diopter - [id number] Implanted:Qty: 1 on 02/28/2019 by Conor Ramirez MD at [facility] Right: Eye [facility]:SURG 11/07/2021 AU00T0.19 0 / [id number] / Lens Intraocular Preloaded 20.0 Diopter - [id number] Implanted:Qty: 1 on 03/14/2019 by Conor Ramirez MD at [facility] Left: Eye [facility]:SURG 08/08/2021 AU00T0.20 0 / [id number] / [id number] Explanted Type Area Net Developer Device Identifier Shelf Expiration Date Model / Serial / Lot Stent Contour 6 X 24 #[id number] - [id number] Implanted:Qty: 1 on 11/28/2019 by Amari Wheeler MD at [facility] Explanted:Qty: 1 on 01/02/2020 by Amari Wheeler MD at [facility] Stent Ureter [employer]:MICROVASIVE:U ROLOGY 02/10/2022 [id number] / / [id number] Procedures Procedure Name Priority Date/Time Associated Diagnosis [...] 10:47 AM EDT PVD (peripheral vascular disease) Bilateral carotid artery stenosis XR FOOT RIGHT [...] 10:09 AM EDT Screening for osteoporosis Postmenopausal NC ARTHROCENTESIS ASPIR&/INJ MAJOR JT/BURSA W/O US Routine [...] PM EDT History of right hip replacement NC ARTHROCENTESIS ASPIR&/INJ MAJOR JT/BURSA W/O US Routine [...] Routine 07/09/2022 2:20 PM EST TSH REFLEX TO FT4 Routine 07/09/2022 2:01 PM EST Hypertensive urgency [...] PROCALCITONIN Early AM 03/30/2022 3:02 PM EST [id number] Routine 03/30/2022 9:53 AM EST ECG AND [...] Stella Hylton PCP: Mann Irene MD Primary Election Clerk: Dr. mccurdy Reason for consult: syncope x3 History provided by: pt, EMR History limited by: nothing HPI: 76 yo past smoker female hx: HLD Adm for syncope x3. 1st episode was about 3 wks ago. 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 [...] Medical History Past Medical History: Diagnosis Date Allergy Arthritis generalized Does use hearing aid bilateral Hyperlipidemia Kidney stone hx of Motion sickness seasick Osteopenia Post-operative nausea and vomiting Urinary tract infection frequent UTI's Medication aspirin 81 mg Oral QAM atorvastatin 10 mg Oral Nightly cefTRIAXone (ROCEPHIN) IVPB (Orderable) 2 g Intravenous Daily pantoprazole (PROTONIX) 40 mg Intravenous Daily Or pantoprazole 40 mg Oral Daily acetaminophen, HYDROcodone-acetaminophen, ondansetron OR ondansetronOR metoclopramide HCl, morphine OR morphine, sodium chloride 0.9%,sodium chloride 0.9% Past Surgical History Past Surgical History: Procedure Laterality Date BLADDER TUMOR EXCISION N/A 10/26/2019 cystoscopy, bladder biopsy and fulguration of lesions of bladder;Surgeon: Amari Wheeler MD; Location: [facility] OR; Service: Urology CATARACT REMOVAL Right 02/28/2019 RIGHT EYE CATARACT EXTRACTION WITH PHACOEMULSIFICATION AND INTRAOCULARLENS; Surgeon: Conor Ramirez MD; Location: [facility];Service: Ophthalmology CATARACT REMOVAL Left 03/14/2019 LEFT EYE CATARACT EXTRACTION WITH PHACOEMULSIFICATION AND INTRAOCULARLENS; Surgeon: Conor Ramirez MD; Location: [facility];Service: Ophthalmology COLONOSCOPY CYSTOSCOPY Right 11/28/2019 cystoscopy right stent placement, right extracorporeal shock wavelithotripsy; Surgeon: Amari Wheeler MD; Location: [facility] OR;Service: Urology HEMORRHOID SURGERY HIP ARTHROPLASTY Right 02/16/2014 RIGHT TOTAL HIP REPLACEMENT; Surgeon: Bruce Oh MD; Location:[facility]; Service: Orthopedics HYSTERECTOMY complete LITHOTRIPSY Right 11/28/2019 Surgeon: Amari Wheeler MD; Location: [facility] OR; Service: Urology LUMBAR DISC SURGERY 11/03/2012 Surgeon: Elza Bautista MD; Location: [facility]IN OR; Service: TOTAL KNEE ARTHROPLASTY Left 12/28/2018 left knee total replacement; Surgeon: Bruce Oh MD; Location:[facility] OR; Service: Orthopedics URETEROSCOPY Right 01/02/2020 cystoscopy, Right Flexible Ureteroscopy, Retrograde, Stent Exchange,Laser Lithotripsy, Basket Retrieval of stone fragments; Surgeon: Amari Wheeler MD; Location: [facility]; Service: Urology Allergy Allergies Allergen Reactions Celecoxib Rash Family History Family History Problem Relation Age of Onset Early Father accident Early Sister Substance Abuse Sister Early Brother accident Early Mother accident Anesth Problems Neg Hx Social History Social History Tobacco Use Smoking status: Former Packs/day: 0.50 Years: 5.00 Pack years: 2.50 Types: Cigarettes Quit date: 1994 Years since quittin.9 Smokeless tobacco: Never Tobacco comments: quit in 1998 Substance Use Topics Alcohol use: No Review of Systems No headache,+ LOC, no fever, no chills, no cough, no nausea, no vomiting,no diarrhea, no burning micturation, no seizures, all other symptomsnegative and reviewed by me. Objective: Telemetry: SR 03/30/2022 Last BP: BP: 142/81 Last pulse: Pulse: 74 Last resp: Resp: 18 Last temp: Temp: 98 F (36.7 C) Last SpO2: SpO2: 98 % Exam: Pt [...] most recent cardiovascular imaging studies availabe in [facility] EMR werereviewed at time of consultation Assessment & Plan Active Hospital Problems Diagnosis *Syncope, unspecified syncope type Hypercholesterolemia 1. Mult episodes syncope- all while sitting without prodrome. Urinaryincontinence w all episodes -Recent 2 day Holter was Neg -tele stable -orthostatics neg -echo pending -Carotids pending 2. exertional SOL w sweating -trop neg -EKG SR w NSSTTWA -perla myoview in AM Plan: Monitor tele kendrick myoview in AM 30 day EM at d/c if tele unrevealing Advised not to drive until cause of [...] coordination with the nursepractitioner. Fredi Nick MD [facility] CARDIOLOGY CONSULT Chief Complaint Patient presents with Loss of Consciousness Pt had same episode [...] polydipsia or night sweats. Allergies Allergen Reactions Celecoxib Rash Medications Prior to Admission Medication Sig Dispense Refill Last Dose aspirin 81 mg Oral Tablet, Delayed Release (E.C.) Take 1 Tab by mouthevery morning. 03/28/2022 atorvastatin (LIPITOR) 10 mg Oral Tablet TAKE 1 TABLET BY MOUTH EVERYDAY 90 Tablet 0 03/28/2022 ergocalciferol (DRISDOL) 1,250 mcg (50,000 unit) Oral Capsule TAKE 1CAPSULE BY MOUTH ONE TIME PER WEEK 12 Cap 3 03/28/2022 ipratropium (ATROVENT) 21 mcg (0.03 %) Nasl [place], Non-Aerosol 2 Spraysby Nasal route 3 times daily. 30 mL 2 Taking loperamide (IMODIUM) 2 mg Oral Capsule Take 1 Capsule by mouth 4 timesdaily as needed for Diarrhea. 40 Capsule 0 Taking loratadine-pseudoephedrine (ALLERGY RELIEF D-24HR) 10-240 mg Oral TabletSustained Release 24 hr TAKE 1 TABLET BY MOUTH EVERY DAY NOT COVERED30 Tablet 2 03/28/2022 Past Medical History: Diagnosis Date Allergy Arthritis generalized Does use hearing aid bilateral Hyperlipidemia Kidney stone hx of Motion sickness seasick Osteopenia Post-operative nausea and vomiting Urinary tract infection frequent UTI's Past Surgical History: Procedure Laterality Date BLADDER TUMOR EXCISION N/A 10/26/2019 cystoscopy, bladder biopsy and fulguration of lesions of bladder;Surgeon: Amari Wheeler MD; Location: [facility] MAIN OR; Service: Urology CATARACT REMOVAL Right 02/28/2019 RIGHT EYE CATARACT EXTRACTION WITH PHACOEMULSIFICATION AND INTRAOCULARLENS; Surgeon: Conor Ramirez MD; Location: [facility];Service: Ophthalmology CATARACT REMOVAL Left 03/14/2019 LEFT EYE CATARACT EXTRACTION WITH PHACOEMULSIFICATION AND INTRAOCULARLENS; Surgeon: Conor Ramirez MD; Location: [facility];Service: Ophthalmology COLONOSCOPY CYSTOSCOPY Right 11/28/2019 cystoscopy right stent placement, right extracorporeal shock wavelithotripsy; Surgeon: Amari Wheeler MD; Location: [facility] MAIN OR;Service: Urology HEMORRHOID SURGERY HIP ARTHROPLASTY Right 02/16/2014 RIGHT TOTAL HIP REPLACEMENT; Surgeon: Bruce Oh MD; Location:[facility] MA[facility] OR; Service: Orthopedics HYSTERECTOMY complete LITHOTRIPSY Right 11/28/2019 Surgeon: Amari Wheeler MD; Location: [facility] MAIN OR; Service: Urology LUMBAR DISC SURGERY 11/03/2012 Surgeon: Elza Bautista MD; Location: [facility] MA[facility]; Service: TOTAL KNEE ARTHROPLASTY Left 12/28/2018 left knee total replacement; Surgeon: Bruce Oh MD; Location:[facility]; Service: Orthopedics URETEROSCOPY Right 01/02/2020 cystoscopy, Right Flexible Ureteroscopy, Retrograde, Stent Exchange,Laser Lithotripsy, Basket Retrieval of stone fragments; Surgeon: Amrai Wheeler MD; Location: [facility]; Service: Urology Family History Problem Relation Age of Onset Early Father accident Early Sister Substance Abuse Sister Early Brother accident Early Mother accident Anesth Problems Neg Hx SOCIAL HISTORY: reports [...] GLU 90 03/28/2022 Active Hospital Problems Diagnosis *Syncope, unspecified syncope type Hypercholesterolemia Impression -syncope which sound like Negron-Nur attacks -SOL and diaphoresis Plan Monitor the rhythm lexiscan myoview to evaluate the SOL/diaphoresis Echo Thank you very much for allowing me to see this patient in consultation. 03/30/2022 1:26 PM Fredi Nick MD [facility] ECG AND WAVEFORMS - TELEMETRY Routine 03/29/2022 5:11 AM EST IP CONSULT TO CARDIOLOGY Routine 03/28/2022 9:41 PM EST Procedure Note - Fredi Nick MD - 03/30/2022 11:55 AM ESTThis note is in progress. Heart & Vascular Consult Note PATIENT: Stella Hylton PCP: Mann Irene MD Primary Election Clerk: Dr. mccurdy Reason for consult: syncope x3 History provided by: pt, EMR History limited by: nothing HPI: 76 yo past smoker female hx: HLD Adm for syncope x3. 1st episode was about 3 wks ago. 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 [...] Medical History Past Medical History: Diagnosis Date Allergy Arthritis generalized Does use hearing aid bilateral Hyperlipidemia Kidney stone hx of Motion sickness seasick Osteopenia Post-operative nausea and vomiting Urinary tract infection frequent UTI's Medication aspirin 81 mg Oral QAM atorvastatin 10 mg Oral Nightly cefTRIAXone (ROCEPHIN) IVPB (Orderable) 2 g Intravenous Daily pantoprazole (PROTONIX) 40 mg Intravenous Daily Or pantoprazole 40 mg Oral Daily acetaminophen, HYDROcodone-acetaminophen, ondansetron OR ondansetronOR metoclopramide HCl, morphine OR morphine, sodium chloride 0.9%,sodium chloride 0.9% Past Surgical History Past Surgical History: Procedure Laterality Date BLADDER TUMOR EXCISION N/A 10/26/2019 cystoscopy, bladder biopsy and fulguration of lesions of bladder;Surgeon: Amari Wheeler MD; Location: [facility] OR; Service: Urology CATARACT REMOVAL Right 02/28/2019 RIGHT EYE CATARACT EXTRACTION WITH PHACOEMULSIFICATION AND INTRAOCULARLENS; Surgeon: Conor Ramirez MD; Location: [facility];Service: Ophthalmology CATARACT REMOVAL Left 03/14/2019 LEFT EYE CATARACT EXTRACTION WITH PHACOEMULSIFICATION AND INTRAOCULARLENS; Surgeon: Conor Ramirez MD; Location: [facility];Service: Ophthalmology COLONOSCOPY CYSTOSCOPY Right 11/28/2019 cystoscopy right stent placement, right extracorporeal shock wavelithotripsy; Surgeon: Amari Wheeler MD; Location: [facility] MAIN OR;Service: Urology HEMORRHOID SURGERY HIP ARTHROPLASTY Right 02/16/2014 RIGHT TOTAL HIP REPLACEMENT; Surgeon: Bruce Oh MD; Location:[facility]; Service: Orthopedics HYSTERECTOMY complete LITHOTRIPSY Right 11/28/2019 Surgeon: Amari Wheeler MD; Location: [facility] MAIN OR; Service: Urology LUMBAR DISC SURGERY 11/03/2012 Surgeon: Elza Bautista MD; Location: [facility]IN OR; Service: TOTAL KNEE ARTHROPLASTY Left 12/28/2018 left knee total replacement; Surgeon: Bruce Oh MD; Location:[facility]; Service: Orthopedics URETEROSCOPY Right 01/02/2020 cystoscopy, Right Flexible Ureteroscopy, Retrograde, Stent Exchange,Laser Lithotripsy, Basket Retrieval of stone fragments; Surgeon: Amari Wheeler MD; Location: [facility]; Service: Urology Allergy Allergies Allergen Reactions Celecoxib Rash Family History Family History Problem Relation Age of Onset Early Father accident Early Sister Substance Abuse Sister Early Brother accident Early Mother accident Anesth Problems Neg Hx Social History Social History Tobacco Use Smoking status: Former Packs/day: 0.50 Years: 5.00 Pack years: 2.50 Types: Cigarettes Quit date: 1994 Years since quittin.9 Smokeless tobacco: Never Tobacco comments: quit in 1998 Substance Use Topics Alcohol use: No Review of Systems No headache,+ LOC, no fever, no chills, no cough, no nausea, no vomiting,no diarrhea, no burning micturation, no seizures, all other symptomsnegative and reviewed by me. Objective: Telemetry: SR 03/30/2022 Last BP: BP: 142/81 Last pulse: Pulse: 74 Last resp: Resp: 18 Last temp: Temp: 98 F (36.7 C) Last SpO2: SpO2: 98 % Exam: Pt [...] most recent cardiovascular imaging studies availabe in [employer] EMR werereviewed at time of consultation Assessment & Plan Active Hospital Problems Diagnosis *Syncope, unspecified syncope type Hypercholesterolemia 1. Mult episodes syncope- all while sitting without prodrome. Urinaryincontinence w all episodes -Recent 2 day Holter was Neg -tele stable -orthostatics neg -echo pending -Carotids pending 2. exertional SOL w sweating -trop neg -EKG SR w NSSTTWA -perla myoview in AM Plan: Monitor tele kendrick myoview in AM 30 day EM at d/c if tele unrevealing Advised not to drive until cause of [...] coordination with the nursepractitioner. Fredi Nick MD [facility] CARDIOLOGY CONSULT Chief Complaint Patient presents with Loss of Consciousness Pt had same episode [...] polydipsia or night sweats. Allergies Allergen Reactions Celecoxib Rash Medications Prior to Admission Medication Sig Dispense Refill Last Dose aspirin 81 mg Oral Tablet, Delayed Release (E.C.) Take 1 Tab by mouthevery morning. 03/28/2022 atorvastatin (LIPITOR) 10 mg Oral Tablet TAKE 1 TABLET BY MOUTH EVERYDAY 90 Tablet 0 03/28/2022 ergocalciferol (DRISDOL) 1,250 mcg (50,000 unit) Oral Capsule TAKE 1CAPSULE BY MOUTH ONE TIME PER WEEK 12 Cap 3 03/28/2022 ipratropium (ATROVENT) 21 mcg (0.03 %) Nasl [place], Non-Aerosol 2 Spraysby Nasal route 3 times daily. 30 mL 2 Taking loperamide (IMODIUM) 2 mg Oral Capsule Take 1 Capsule by mouth 4 timesdaily as needed for Diarrhea. 40 Capsule 0 Taking loratadine-pseudoephedrine (ALLERGY RELIEF D-24HR) 10-240 mg Oral TabletSustained Release 24 hr TAKE 1 TABLET BY MOUTH EVERY DAY NOT COVERED30 Tablet 2 03/28/2022 Past Medical History: Diagnosis Date Allergy Arthritis generalized Does use hearing aid bilateral Hyperlipidemia Kidney stone hx of Motion sickness seasick Osteopenia Post-operative nausea and vomiting Urinary tract infection frequent UTI's Past Surgical History: Procedure Laterality Date BLADDER TUMOR EXCISION N/A 10/26/2019 cystoscopy, bladder biopsy and fulguration of lesions of bladder;Surgeon: Amari Wheeler MD; Location: [facility]; Service: Urology CATARACT REMOVAL Right 02/28/2019 RIGHT EYE CATARACT EXTRACTION WITH PHACOEMULSIFICATION AND INTRAOCULARLENS; Surgeon: Conor Ramirez MD; Location: [facility];Service: Ophthalmology CATARACT REMOVAL Left 03/14/2019 LEFT EYE CATARACT EXTRACTION WITH PHACOEMULSIFICATION AND INTRAOCULARLENS; Surgeon: Conor Ramirez MD; Location: [facility];Service: Ophthalmology COLONOSCOPY CYSTOSCOPY Right 11/28/2019 cystoscopy right stent placement, right extracorporeal shock wavelithotripsy; Surgeon: Amari Wheeler MD; Location: [facility] MAIN OR;Service: Urology HEMORRHOID SURGERY HIP ARTHROPLASTY Right 02/16/2014 RIGHT TOTAL HIP REPLACEMENT; Surgeon: Bruce Oh MD; Location:[facility]; Service: Orthopedics HYSTERECTOMY complete LITHOTRIPSY Right 11/28/2019 Surgeon: Amari Wheeler MD; Location: [facility] MA[facility] OR; Service: Urology LUMBAR DISC SURGERY 11/03/2012 Surgeon: Elza Bautista MD; Location: [facility]; Service: TOTAL KNEE ARTHROPLASTY Left 12/28/2018 left knee total replacement; Surgeon: Bruce Oh MD; Location:[facility]; Service: Orthopedics URETEROSCOPY Right 01/02/2020 cystoscopy, Right Flexible Ureteroscopy, Retrograde, Stent Exchange,Laser Lithotripsy, Basket Retrieval of stone fragments; Surgeon: Amari Wheeler MD; Location: [facility]; Service: Urology Family History Problem Relation Age of Onset Early Father accident Early Sister Substance Abuse Sister Early Brother accident Early Mother accident Anesth Problems Neg Hx SOCIAL HISTORY: reports [...] GLU 90 03/28/2022 Active Hospital Problems Diagnosis *Syncope, unspecified syncope type Hypercholesterolemia Impression -syncope which sound like Negron-Nur attacks -SOL and diaphoresis Plan Monitor the rhythm lexiscan myoview to evaluate the SOL/diaphoresis Echo Thank you very much for allowing me to see this patient in consultation. 03/30/2022 1:26 PM Fredi Nick MD [facility] TROPONIN-T HIGH SENSITIVITY 2HR Timed 03/28/2022 [...] Syncope due to orthostatic hypotension TSH REFLEX TO FT4 Routine 01/27/2022 11:09 AM EDT Syncope, cardiogenic Chronic fatigue COMPREHENSIVE METABOLIC PANEL Routine 01/27/2022 11:09 AM EDT Syncope, cardiogenic CBC WITH DIFF Routine 01/27/2022 11:09 AM EDT Syncope, cardiogenic [facility] CAROTID DUPLEX BILATERAL Routine 10/31/2021 1:00 PM EDT PVD (peripheral vascular disease) Bruit [facility] LOWER EXTREMITY ARTERIAL PHYSIOLOGICAL Routine 10/31/2021 12:30 PM EDT Claudication VITAMIN B12/ FOLIC ACID Routine 09/24/2021 8:48 AM EDT Chronic fatigue VITAMIN D 25 HYDROXY Routine 09/24/2021 8:48 AM EDT Chronic fatigue Vitamin D deficiency TSH REFLEX TO FT4 Routine 09/24/2021 8:48 AM EDT Chronic fatigue CBC WITH DIFF Routine 09/24/2021 8:48 AM EDT Claudication Hypercholesterol emia Osteoarthritis, unspecified osteoarthritis type, unspecified site COMPREHENSIVE METABOLIC PANEL Routine 09/24/2021 8:48 AM EDT Claudication LIPID SCREEN Routine 09/24/2021 8:48 AM EDT Claudication Hypercholesterol emia MM MAMMO DIGITAL VIVIANA SCREEN [...] PM EDT EXTRACORPOREAL SHOCK WAVE THERAPY LITHOTRIPSY WITH CYSTOSCOPY / STENT PLACEMENT/ REMOVAL 11/28/2019 12:27 PM EDT Urine culture positive [...] Routine 07/20/2019 2:53 PM EDT Recurrent UTI NON-LABORER SHAFT SINKING CYTOLOGY REQUEST Routine 07/20/2019 2:53 PM EDT [...] AIRWAY PLACEMENT Routine 12/28/2018 2:56 PM EDT ARTHROPLASTY, KNEE, TOTAL, OPEN 12/28/2018 2:15 PM EDT Primary osteoarthritis of [...] DIFF Routine 03/05/2018 3:17 PM EDT Dizziness UT US LOWER EXTREMITY ARTERIAL PHYSIOLOGICAL Routine 12/11/2017 10:51 AM EDT Claudication HCV ANTIBODY SCREEN W/ REFLEX Routine 10/13/2017 [...] Consult Dictated by Matthew Conde MD, Dictation# [id number] Active Hospital Problems Diagnosis OA (osteoarthritis)-s/p RIGHT TOTAL HIP REPLACEMENT 02/16/14. Hypernatremia Recheck BMP. Hypercholesterolemia Resolved Hospital Problems Diagnosis No resolved problems to display. Matthew Conde XR HIP INTRAOPERATIVE RIGHT 2 VIEW SIVA 02/16/2014 10:36 AM EDT FL < 1 HOUR SIVA 02/16/2014 10:36 AM EDT ARTHROPLASTY, HIP, TOTAL, ANTERIOR (KYLEE/NIC) 02/16/2014 9:12 AM EDT Primary localized osteoarthrosis, pelvic region and thigh, right Special Needs FAX CPT;36194 PAT UPDATED SPECIMEN STAT 02/16/2014 7:41 AM [...] EDT OA (osteoarthritis) Pre-op testing Anticoagulant disorder PT / INR Pre-Op 02/09/2014 8:40 AM EDT OA (osteoarthritis) Pre-op testing Anticoagulant disorder STAPHYLOCOCCUS AUREUS SCREEN Pre-Op 02/09/2014 8:40 AM [...] PHYSIOLOGICAL Routine 10/07/2013 12:56 PM EDT Claudication LDL, CALCULATED Routine 09/26/2013 10:09 AM EDT [...] without neurogenic claudi Special Needs MULU CPT; 00712/69821 EK EKG 12 LEAD STAT 11/03/2012 11:23 [...] of3 resultswithin the time period is included. Pathologist [facility] Vit D 25 OH 55.1 30.0 - 150.0 ng/mL 11/09/2023 3:41 PM EDT [facility] [employer] [facility] Comment: Preferred: >= 30 ng/mL Insufficient: 21-29 ng/mL Deficient <= 20 ng/mL Possible Toxicity: >150 ng/mL Samples should not be taken from patients receiving therapy with high biotin doses (i.e. > 5 mg/day) until at least 8 hours following the last biotin administration. Blood VENOUS BLOOD / Unknown Venipuncture / Unknown 11/09/2023 11:21 AM EDT 11/09/2023 11:21 AM EDT us Palma Jj DO CHEMISTRY ORDERABLES Final R esult [facility] [address] [facility] [facility] , [place] [address] * (ABNORMAL) CBC WITH DIFF (11/09/2023 11:21 AM EDT) Only the most recent of15 resultswithin the time period is included. Pathologist [facility] WBC 7.2 3.7 - 10.3 x10(3)/mcL [...] 3:06 PM EDT [facility] Cobb Percent 8.1 % 11/09/2023 3:06 PM EDT [facility] Eos Percent 7.1 % 11/09/2023 3:06 PM EDT [facility] Baso Percent 0.8 % 11/09/2023 3:06 PM EDT [facility] Neut # 2.8 1.6 - 6.1 x10(3)/mcL 11/09/2023 3:06 PM EDT [facility], [facility] Comment:Neutrophils equals s egs plus bands IMMGRAN# 0.0 0.0 - 0.1 x10(3)/[facility] 11/09/2023 3:06 PM EDT [facility], [facility] Comment:Automated count of m etamyelocytes, myelocytes and promyelocytes. An absolute IG <0.1 is reported as 0.0. Lymph # 3.2 1.2 - 3.9 x10(3)/[facility] 11/09/2023 3:06 PM EDT [facility] Cobb # 0.6 0.3 - 0.9 x10(3)/[facility] 11/09/2023 3:06 PM EDT [facility], [facility] Eos# 0.5 0.0 - 0.5 x10(3)/[facility] 11/09/2023 3:06 PM EDT [facility] [employer], [facility] Baso # 0.1 0.0 - 0.1 x10(3)/[facility] 11/09/2023 3:06 PM EDT [facility] [employer], [facility] Blood VENOUS BLOOD / Unknown Venipuncture / Unknown 11/09/2023 11:21 AM EDT 11/09/2023 11:21 AM EDT Palma Jj DO HEMATOLOGY ORDERABLES Final Result [facility] [employer], [facility] [address] [facility] , [place] [address] * NT PROBNP (11/09/2023 11:21 AM EDT) NT Pro-BNP 102 <=624 pg/mL 11/09/2023 3:27 PM EDT [facility] [employer], [facility] Blood VENOUS BLOOD / Unknown Venipuncture / Unknown 11/09/2023 11:21 AM EDT 11/09/2023 11:21 AM EDT Narrative [facility] [employer], [facility] - 11/09/2023 3:27 PM EDT An NT pro-BNP level less than 300 pg/mL in any patient, regardless of age, effectively rules out acute CHF with a 99% negative predictive value. Ingestion of lakshmi doses of biotin (>5 mg/day) taken within 8 hours of drawing blood sample can interfere with this immunoassay test. Palma Jj DO CHEMISTRY ORDERABLES Final R esult Performing Organization Address City/[facility]/ZIP Co de Phone Number [facility] [employer], [facility] [address] [facility] , [place] [address] * (ABNORMAL) LIPID SCREEN (11/09/2023 11:21 AM EDT) Only the most recent of6 resultswithin the time period is included. [facility] Cholesterol 220(H) <200 mg/dL 11/09/2023 3:35 PM EDT [facility] [employer], [employer] Comment: < 200 Desirable 200 - 239 Borderline High >= 240 High Triglyceride 91 <150 mg/dL 11/09/2023 3:35 PM EDT [facility] [employer], [employer] Comment: < 150 Normal 150 - 199 Borderline High 200 - 499 High >= 500 Very High HDL 53 >=40 mg/dL 11/09/2023 3:35 PM EDT [facility] [employer] Comment: > 60 Optimal 40 - 60 Acceptable < 40 Low LDL Calculated 151(H) <100 mg/dL 11/09/2023 3:35 PM EDT [employer], [employer] Comment: < 100 Optimal 100 - 129 Near or above optimal 130 - 159 Borderline High 160 - 189 High >= 190 Very High Non-HDL-C Calculated 167(H) <=129 mg/dL 11/09/2023 3:35 PM EDT [facility] [employer], [employer] Comment: <130 Desirable 130-159 Above Desirable 160-189 Borderline High 190-219 High >= 220 Very High Fasting Specimen? No None 024 3:35 PM EDT [facility] Blood VENOUS BLOOD / Unknown Venipuncture / Unknown 11/09/2023 11:21 AM EDT 11/09/2023 11:21 AM EDT Palma Jj DO CHEMISTRY ORDERABLES Final R esult Performing Organization Address City/[facility]/ZIP Co de Phone Number [facility] [employer], [facility] [address] [facility] , [place] [address] [facility] [address] [place] [address] * BASIC METABOLIC PANEL (11/09/2023 11:21 AM EDT) Only the most recent of9 resultswithin the time period is included. Sodium 141 136 - 145 mmol/L 11/09/2023 3:35 PM EDT [facility], [facility] Potassium 4.5 3.5 - 5.0 mmol/L 11/09/2023 3:35 PM EDT [facility], [facility] Chloride 105 98 - 107 mmol/L 11/09/2023 3:35 PM EDT [facility], [facility] Total CO2 29 22 - 29 mmol/L 11/09/2023 3:35 PM EDT [facility], [facility] Anion Gap 7 7 - 16 mmol/L 11/09/2023 3:35 PM EDT [facility], [facility] Calcium 9.6 8.8 - 10.4 mg/dL 11/09/2023 3:35 PM EDT [facility], [facility] Glucose Lvl 77 70 - 99 mg/dL 11/09/2023 3:35 PM EDT [facility], [facility] BUN 19 8 - 23 mg/dL 11/09/2023 3:35 PM EDT [facility] Creatinine 0.74 0.51 - 1.30 mg/dL 11/09/2023 3:35 PM EDT [facility], [facility] eGFR (CKD-EPIcr 2020) 83 >=60 mL/min/1.7 3 m2 11/09/2023 3:35 PM EDT [facility] Comment:Estimated GFR was ca lculated using the CKD-EPIcr (2020) equation refit without race. The equation is recommended by the [employer] - [place] [employer]ph[employer] Task Force. Blood VENOUS BLOOD / Unknown Venipuncture / Unknown 11/09/2023 11:21 AM EDT 11/09/2023 11:21 AM EDT us Palma Jj DO CHEMISTRY ORDERABLES Final R esult [facility], [facility] [address] [facility] , [place] [address] [address] * XR CERVICAL SPINE AP AND LATERAL (08/12/2023 1:11 PM EDT) Anatomical Region Laterality Modality C-spine Radiographic Demetra ging 08/12/2023 1:11 PM EDT Impressions 08/12/2023 2:32 PM EDT Multilevel degenerative changes. Narrative 08/12/2023 2:32 PM EDT AP AND LATERAL C-SPINE, 08/12/2023 1:11 PM CLINICAL HISTORY: M54.5-[id number]-10-CM COMPARISON: None. PROCEDURE COMMENTS: AP and lateral [...] LATERAL C-SPINE, 08/12/2023 1:11 PM CLINICAL HISTORY: M54.6-[id number]-10-CM COMPARISON: None. PROCEDURE COMMENTS: AP and lateral [...] the other levels. IMPRESSION: Multilevel degenerative changes. us Clay Ness MD IMG DIAGNOSTIC IMAGING ORDERABLES Final Result * [facility] CAROTID DUPLEX BILATERAL (07/23/2023 10:47 AM EDT) Only the most recent of2 resultswithin the time period is included. Anatomical Region Laterality Modality Vascular, Head, Neck Vascular Im aging 07/23/2023 10:1 2 AM EDT Impressions 07/23/2023 11:59 AM EDT Conclusions * There is a right proximal [...] .4 cm. These may be small cysts. * Antegrade flow visualized [...] Palma Jj DO IMG VASCULAR ORDERABLES Karen l Result * XR [...] 2:05 PM CLINICAL HISTORY: M79.671-Pain in right [id number] COMPARISON: None. PROCEDURE COMMENTS: XR FOOT RIGHT AP LATERAL AND OBLIQUE FINDINGS: There is no fracture or traumatic malalignment. 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 There is hallux bunion. 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 Procedure Note Juaquin Morel MD - 07/06/2023 XR FOOT RIGHT AP LATERAL AND OBLIQUE, 07/06/2023 2:05 PM CLINICAL HISTORY: M79.671-Pain in right [id number] COMPARISON: None. PROCEDURE COMMENTS: XR FOOT RIGHT [...] Aspirin, Lipitor, Voltaren, drisdol, Lisinopril TECHNICAL SUMMARY: This is a 20 channel referential and bipolar EEG recorded in a digital format in a patient who is reported to be awake during the recording. While awake and maximally stimulated the background rhythm consisted of a well developed, well regulated moderate voltage activity in the 9 Hz frequency range, maximum over the posterior head regions and reactive to eye opening and closure. During the recording no drowsiness or sleep is seen. Photic stimulation was performed and elicited no abnormalities. Hyperventilation was not able to be performed due to medical reasons. No cardiac rhythm abnormalities were seen in the EKG monitoring channel. EEG INTERPRETATION: This EEG is within normal limits for a patient of this age in the awake conditions. No focal, lateralizing, or epileptiform features were seen. [...] - 123 U/L 04/06/2023 11:01 PM EST [facility] eGFR (CKD-EPIcr 2020) 90 >=60 mL/min/1.7 3 m2 04/06/2023 11:01 PM EST [facility] Comment:Estimated GFR was ca lculated using the CKD-EPIcr (2020) equation refit without race. The equation is recommended by the National Kidney Foundation - [place] [employer] Nephrology Task Force. Blood VENOUS BLOOD / Unknown Venipuncture / Unknown 04/06/2023 11:41 AM EST 04/06/2023 11:41 AM EST Palma Jj DO CHEMISTRY ORDERABLES Final R esult Performing Organization Address City/[facility]/ZIP Co de Phone Number [facility] 1 [facility], [address] [place] [phone] [facility] [address] [place] [address] * POCT EKG (04/06/2023 11:22 AM EST) Only the most recent of2 resultswithin the time period is included. 04/06/2023 11:2 2 AM EST Impressions SEP OFFICE - 04/06/2023 11:22 AM EST Sinus rhythm, possible left atrial enlargement. 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 Study was performed on [employer] APEX 5. Bone Density: Region BMD T-score Z-score Femoral Neck (Left) 0.699 -1.3 0.7 Total Hip (Left) 0.742 -1.6 0.2 1/3 Radius (Right) 0.502 -3.2 -0.6 World Health Organization criteria for BMD interpretation [...] Deformity Assessment: Exam date 12/19/2022 Vertebral Level Impression T5 Normal T6 Normal T7 Normal T8 Normal T9 Normal T10 Normal T11 Normal T12 Normal L1 Normal L2 Normal L3 Normal L4 Normal A spine fracture indicates 5X risk for subsequent spine fracture and 2X risk for subsequent hip fracture. Previous Exams: Region Date Age BMD T-score BMD Change Total Hip(Left) 12/19/2022 77 0.742 -1.6 5.2%* 02/10/2019 73 0.705 -1.9 1/3 Forearm(Right) 12/19/2022 77 0.502 -3.2 -3.9% 02/10/2019 73 0.522 -2.9 *Denotes significance at 95% confidence level, LSC [...] IMG DEXA ORDERABLES Final Re sult * NC ARTHROCENTESIS ASPIR&/INJ MAJOR JT/BURSA W/O US (12/03/2022 10:45 AM EDT) Narrative ORTHOCINCY - 12/03/2022 10:45 AM EDT Nayely Velez 02/21/2023 3:51 PM Large Joint Injection/Arthrocentesis: R knee on [...] to verify the correct patient, procedure, equipment, client support administrator and site/side marked as required. Patient was prepped and draped in the usual sterile fashion. Ludwin Son PA-C PROCEDURE/MINOR SURGICAL OR DERABLES Final Result Performing Organization Address [facility] Co de Phone Number ORTHOCINCY * MRI LUMBAR SPINE WO CONTRAST (11/03/2022 11:44 AM EDT) Only the most recent of2 resultswithin the time period is included. Narrative [facility] - 11/03/2022 11:44 AM EDT Please see the scanned MRI report associated with this order on the Imaging tab of the patient's chart. us Bruce REMY MRI ORDERABLES Final Res ult Performing Organization Address [facility] de Phone Number [facility] * XR KNEE RIGHT AP LATERAL AND SUNRISE STANDING (10/22/2022 2:22 PM EDT) Only the most recent of2 resultswithin the time period is included. Narrative Prashant Brown - 10/22/2022 2:22 PM EDT Please see physician's note from office encounter for x-ray imaging result us Bruce REMY DIAGNOSTIC IMAGING ORDER LILLIAN Final Result * XR LUMBAR SPINE AP AND LATERAL (10/22/2022 1:59 PM EDT) Narrative Stephanie Audit - 10/22/2022 1:59 PM EDT Please see physician's note from office encounter for x-ray imaging result us Bruce REMY DIAGNOSTIC IMAGING ORDER LILLIAN Final Result * XR HIP RIGHT AP LATERAL W AP PELVIS (10/22/2022 1:58 PM EDT) Narrative Prashant Brown - 10/22/2022 1:58 PM EDT Please see physician's note from office encounter for x-ray imaging result Bruce Oh MD IMG DIAGNOSTIC IMAGING ORDER LILLIAN Final Result * NC ARTHROCENTESIS ASPIR&/INJ MAJOR JT/BURSA W/O US (10/22/2022 1:45 PM EDT) Narrative [facility] - 10/22/2022 1:45 PM EDT Nayely Velez 10/29/2022 4:52 PM Large Joint Injection/Arthrocentesis on 10/22/2022 1:45 PM Indications: pain Details: 22 G needle, anterolateral approach Outcome: tolerated well, no immediate complications Procedure, treatment alternatives, risks and benefits explained, specific risks discussed. Consent was given by the patient. Immediately prior to procedure a time out was called to verify the correct patient, procedure, equipment, client support administrator and site/side marked as required. Patient was prepped and draped in the usual sterile fashion. Bruce Oh MD PROCEDURE/MINOR SURGICAL ORD ERABLES Final Result [facility] [address] [place] [address] * MM MAMMO DIGITAL VIVIANA SCREEN BILAT (07/28/2022 11:27 AM EDT) Only the most recent of2 resultswithin the time period is included. Anatomical Region Laterality Modality Breast Bilateral Mammography 07/29/2022 7:54 AM EDT Impressions 07/29/2022 7:54 AM EDT Negative (CHL-Ypphyohl-2) ~ RECOMMENDATION: Routine screening mammogram in 1 [...] the next mammogram, in accordance with the [place] [employer] and the Society of Breast Imaging recommendations. Narrative 07/29/2022 7:54 AM EDT Procedure:MM MAMMO DIGITAL VIVIANA SCREEN BILAT ~ Reason for exam: screening, asymptomatic. Z12.31-Encounter for screening mammogram for malignant neoplasm of kohglz-PPI-00-CM ~ MM MAMMO DIGITAL VIVIANA SCREEN BILAT [...] for screening mammogram for malignant neoplasm of vjxeoy-LAA-90-CM ~ MM MAMMO DIGITAL VIVIANA SCREEN BILAT Bilateral CC and MLO view(s) were taken. There are scattered fibroglandular densities. Prior study comparison: Compared with prior studies the most recentbeing 07/16/21, 10/15/18 No mammographic evidence of malignancy. ~ IMPRESSION: Negative (ATB-Etpdlqdy-6) ~ RECOMMENDATION: Routine screening mammogram in 1 [...] the next mammogram, in accordance with the [place] [employer] and the Society of Breast Imaging recommendations. us Mann Irene MD IMG MAMMOGRAPHY ORDERABLES Fin al Result * (ABNORMAL) URINE CULTURE (NO STAIN) (07/28/2022 10:34 AM EDT) Only the most recent of10 resultswithin the time period is included. Culture Positive Growth(A) 07/30/2022 10:57 AM EDT [facility] Culture >100,000 CFU/mL Escherichia coli SUSCEPTIBI LITY RESULT 07/30/2022 10:57 AM EDT [facility] Urine URINE SPECIMEN COLLECTION, CLEAN CATCH [...] tho xazole SUSCEPTIBILITY RESULT <=0.5/9.5 ug/mL: Susceptible Palma Jj DO MICROBIOLOGY - GENERAL ORDER LILLIAN Final Result [facility] [address] [facility] , [place] [address] * (ABNORMAL) SEP URINALYSIS POC [...] OF CARE TEST ORDERABLE S Final Result [facility] [address] [place] [address] * TSH REFLEX (07/09/2022 2:01 PM EST) Only the most recent of3 resultswithin the time period is included. TSH Reflex 1.040 0.270 - 4.200 mcIU/mL 07/09/2022 9:42 PM EST [facility] Blood VENOUS BLOOD / Unknown Venipuncture / Unknown 07/09/2022 2:01 PM EST 07/09/2022 2:01 PM EST Narrative [facility] - 07/09/2022 9:42 PM EST Ingestion of lakshmi doses of biotin (>5 mg/day) taken within 8 hours of drawing blood sample can interfere with this immunoassay test. us Palma Jj DO CHEMISTRY ORDERABLES Final R esult [facility] [address] [facility] , [place] [address] * SCANNED RADIOLOGY REPORT (04/04/2022 3:50 PM EST) Anatomical Region Laterality Modality Other 04/04/2022 3:50 PM EST us Unknown Provider IMG DIAGNOSTIC IMAGING ORDERABL ES Final Result * EV EVENT MONITOR (04/04/2022 10:26 AM EST) Anatomical Region Laterality Modality Holter/Event Mon itoring 05/06/2022 4:50 AM EST Impressions 05/06/2022 8:20 AM EST [facility] Test Date: 2022-05-06 Pat Name: STELLA HYLTON Department: DEPID Room: Gender: Female [employer]icon[employer] Bonder: : 1945 Requested By: FREDI Mc Order Number: [id number] Carlos MD: Fredi Nick MD Interpretive Statements Business Controller Date: 04/04/2022 Referring Provider: Dr. Fredi Nick [...] Nick MD - 05/06/[address] [facility] Test Date: 2022-05-06 Pat Name: STELLA HYLTON Department: DEPID Room: Gender: Female [employer] Bonder: : 1945 Requested By: FREDI Mc Order Number: [id number] Reading MD: Fredi Nick MD Interpretive Statements Business Controller Date: 04/04/2022 Referring Provider: Dr. Fredi Nick [...] of6 resultswithin the time period is included. ECG INTERPRET NSR [facility] 04/01/2022 7:03 AM EST Narrative [facility] - 04/01/2022 8:25 AM EST BA/HICUITY ROUTINE NC 0.15 QRS 0.10 QT 0.43 See Clinical Report link for waveform capture us Unknown Provider POINT OF CARE CARDIOLOGY Final Result [facility] [address] [place] [address] * EC ECHOCARDIOGRAM COMPLETE W DOPPLER AND COLOR FLOW MAPPING (03/31/2022 1:40 PM EST) Only the most recent of2 resultswithin the time period is included. Ejection Fraction 60-65% PYRAMIS MITRAL REGURGITATION trace PYRAMIS AORTIC STENOSIS no PYRAMIS LV DIASTOLIC PLAX 4.649 cm PYRAMIS Anatomical Region Laterality Modality Electrocardiogra phy 03/31/2022 1:02 PM EST Impressions 03/31/2022 4:01 PM EST Conclusions * Left ventricular chamber dimension is [...] EST Impressions 03/31/2022 4:10 PM EST Conclusions * Homogenous uptake of isotope throughout [...] normal myocardial wall motion. us Sundeep Chan BOBBIN WASHER IMG NM CARDIAC ORDERABLES Fi nal Result * ST STRESS TEST LEXISCAN (03/31/2022 12:32 PM EST) Anatomical Region Laterality Modality Cardiac Stress T esting 03/31/2022 12:1 5 PM EST Impressions 03/31/2022 3:24 PM EST [facility] Date: 2022-03-31 Pat Name: STELLA HYLTON Department: DEPID Room: 440 Gender: Female [employer]icon[employer] Bonder: Rachael Cifuentes RN : 1945 Requested By: TIANA ENRIQUEZ Order Number: [id number] Reading MD: Riley Segovia MD Interpretive Statements [...] Pat Name: STELLA HYLTON Department: DEPID Room: [facility] Gender: Female [employer]icon[employer] Bonder: Rachael Cifuentes RN : 1945 Requested By: TIANA ENRIQUEZ Order Number: [id number] Reading MD: Riley Segovia MD Interpretive Statements [...] 03-31-2022 15:24:34 EST by Riley Segovia MD Sundeep Chan BOBBIN WASHER [facility] STRESS ORDERABLES Final Result * US THYROID [...] Narrative 03/30/2022 5:26 PM EST THYROID SONOGRAPHY, 03/30/2022 3:36 PM CLINICAL HISTORY: Thyroid nodule(s). -L thyroid cyst. COMPARISON: None. PROCEDURE COMMENTS: Sonographic evaluation of the thyroid gland per protocol. Images and technologist notes reviewed. METHODOLOGY: Up [...] patient variables. For comprehensive details, refer to https://www.acr.org/clinical-resources/kiaqfcyfj-vzn-tuxs-systems/ti-rads. Right lobe measures: 3.8 x 1.7 x [...] patient variables. For comprehensive details, refer to https://www.acr.org/clinical-resources/jbbjscwpb-tcu-bxrj-systems/ti-rads. Right lobe measures: 3.8 x 1.7 x [...] the ordering clinician. us Lolis Byrd MD [facility] ORDERABLES Final Result * PROCALCITONIN (03/30/2022 3:02 PM EST) Procalcitonin <0.05 <=0.49 ng/mL 03/30/2022 3:52 PM EST [facility] Blood VENOUS BLOOD / Unknown Venipuncture / Unknown 03/30/2022 3:02 PM EST 03/30/2022 3:07 PM EST Narrative [facility] - 03/30/2022 3:52 PM EST Procalcitonin <0.50 ng/mL: Procalcitonin levels below 0.50 ng/mL on the first day of ICU admission represent a low risk for progression to severe sepsis and/or septic shock Procalcitonin >=0.50 ng/mL and <=2.00 ng/mL: If the procalcitonin measurement is performed shortly after the systemic infection process has started (usually less than 6 hours), this value may still be low. As various non-infectious conditions are known to induce [...] Byrd MD CHEMISTRY ORDERABLES Final Resul t [facility] 1 [facility], [place] [address] * (ABNORMAL) D-DIMER (03/30/2022 3:02 PM EST) [facility] D-Dimer 671(H) <=500 ng/mL FEU 03/30/2022 3:21 PM EST [facility] Comment:This is an automated latex enhanced immunoassay [...] PM EST 03/30/2022 3:07 PM EST Narrative [facility] - 03/30/2022 3:21 PM EST For patients between the ages of 50 - 75, an age-adjusted D-Dimer cut-off in combination with non-high clinical probability may be considered for the exclusion of venous thromboembolism (calculation = age x 10). MAGNUS Warren et al. [employer]. 2017;166(5):361-363 PRAKASH Vogt, et al. [employer] [facility] [facility] [facility]. 2015;(163):701-711. Tomi Lock, et al. HUI. 2014;(11):6876-1239. us Lolis Byrd MD HEMATOLOGY ORDERABLES Final Resu lt [facility] [address] [facility] , [place] [address] * [id number] (03/30/2022 9:53 AM EST) Pathologist [facility] CORONAVIRUS [id number] Not Detected Not Detected 03/30/2022 12:16 PM EST [facility] Influenza A DNA Not Detected Not Detected 03/30 12:16 PM EST [facility] Influenza B DNA Not Detected Not Detected 03/30 12:16 PM EST [facility], [facility] RSV DNA Not Detected Not Detected 03/30/2022 12:16 PM EST [facility], [facility] Swab BOTH ANTERIOR NARES / Unknown 03/30/2022 9:53 AM EST 03/30/2022 9:53 AM EST Narrative [facility] - 03/30/2022 12:16 PM EST This [...] for treatment or other patient management decisions. Test is performed on the [employer] GeneXpert platform under the FDA's Emergency Use Authorization (EUA). Cepheid Fact Sheet for Providers and Patients: Cepheid Fact Sheet for Providers: https://www.fda.gov/media/165845/download Cepheid Fact Sheet for Patients: https://www.fda.gov/media/127294/download us Lolis Byrd MD MICROBIOLOGY - GENERAL ORDERABLE S Final Result Performing Organization Address City/[facility]/ZIP Co de Phone Number PREFERRED [employer] [employer] 1 [facility], [place] [address] * TROPONIN-T HIGH SENSITIVITY 2HR (03/28/2022 3:52 PM EST) Only the most recent of2 resultswithin the time period is included. [id number]-J 2HR 10 <14 ng/L 03/28/2022 4:17 PM EST [facility] Comment:See the website [employer] for rule out MD care pathway, conditions other than AMI that can cause elevated hs cTnT, and comparison of values from the 4th and 5th generation Rosie tests. https://askmayoexpert.[facility].org/topic/clinical-answers/gnt-83533442/cpm-203 81189 hs-cTnT 2Hr Delta from Baseline 0 <4 ng/L 03/28/2022 4:17 PM EST [facility] Blood VENOUS BLOOD / Unknown Venipuncture / Unknown 03/28/2022 3:52 PM EST 03/28/2022 3:55 PM EST Narrative [facility] - 03/28/2022 4:17 PM EST Ingestion of lakshmi doses of biotin (>5 mg/day) taken within 8 hours of drawing blood sample can interfere with this immunoassay test. us Fredi Hamlin APRN CHEMISTRY ORDERABLES Final Result Performing Organization Address City/[facility]/ZIP Co de Phone Number [facility] 1 [place] [address] * XR CHEST AP PORTABLE [...] 2:26 PM EST XR CHEST AP PORTABLE, 03/28/2022 2:21 PM [...] 03/28/2022 2:14 PM EST Fredi Hamlin APRN MICROBIOLOGY - GENERAL ORD ERABLES Final Result Performing Organization Address [facility]/State/[facility] Co de Phone Number [place] [phone] * (ABNORMAL) URINALYSIS (03/28/2022 2:09 PM EST) Only the most recent of5 resultswithin the time period is included. UA Color Yellow 03/28/2022 2:20 PM EST [facility], [employer] UA Appear Clear Clear 03/28/2022 2:20 PM EST [facility] [employer] UA Glucose Negative Negative mg/dL 03/28/2022 2:20 PM EST [facility] UA Ketones Negative Negative mg/dL 03/28/2022 2:20 PM EST [facility] UA Blood Negative Negative 03/28/2022 2:20 PM EST [facility] UA pH 6.0 5.0 - 8.0 pH 03/28/2022 2:20 PM EST [facility] UA Protein Trace (10-20 mg/dL) Negative mg/dL 03/28/2022 2:20 PM EST [facility] UA Urobilinogen Normal <=1 mg/dL 2:20 PM EST [facility] UA Bili Negative Negative 03/28/2022 2:20 PM EST [facility] UA Nitrite Positive(A) Negative 03/28/2022 2:20 PM EST [facility] UA Leuk Est 3+ (250 Zena/mcl)(A) Negative 03/28/2022 2:20 PM EST [facility] UA Spec Grav 1.026 1.001 - 1.035 no units 03/28/2022 2:20 PM EST [facility] Comment:Reference range chong d for random specimens only. UA WBC 5(H) 0 - 4 /HPF 03/28/2022 2:20 PM EST [facility] UA RBC 1 0 - 3 /HPF 03/28/2022 2:20 PM EST [facility] UA Squam Epi 1+ /LPF 03/28/2022 2:20 PM EST [facility] UA Mucus Trace /LPF 03/28/2022 2:20 PM EST [facility] UA Bacteria 1+(A) Negative /HPF 03/28/2022 2:20 PM EST [facility] Urine URINE SPECIMEN COLLECTION, CLEAN CATCH / Unknown 03/28/2022 2:09 PM EST 03/28/2022 2:14 PM EST us Fredi Hamlin BOBBIN WASHER URINE ORDERABLES Final Res ult [facility] [address] [facility] , [place] [address] * TROPONIN-T HIGH SENSITIVITY BASELINE W/ REFLEX (03/28/2022 1:23 PM EST) Only the most recent of2 resultswithin the time period is included. Pathologist [facility] sw-uIoqwbyqw-T 10 <14 ng/L 03/28/2022 1:46 PM EST [facility] Comment:See the website [facility] for rule out MD care pathway, conditions other than AMI that can cause elevated hs cTnT, and comparison of values from the 4th and 5th generation Rosie tests. https://askmayoexpert.[facility].org/topic/clinical-answers/gnt-07188265/cpm-203 12720 Blood VENOUS BLOOD / Unknown Venipuncture / Unknown 03/28/2022 1:23 PM EST 03/28/2022 1:26 PM EST Narrative [facility] - 03/28/2022 1:46 PM EST Ingestion of lakshmi doses of biotin (>5 mg/day) taken within 8 hours of drawing blood sample can interfere with this immunoassay test. Fredi Hamlin BOBBIN WASHER CHEMISTRY ORDERABLES Final Result [facility] [address] [place] [address] * (ABNORMAL) CBC (03/28/2022 1:23 PM EST) Only the most recent of6 resultswithin the time period is included. Pathologist [facility] WBC 11.0(H) 3.7 - 10.3 x10(3)/mcL 03/28/2022 1:29 PM EST [facility] RBC 5.05 3.90 - 5.20 x10(6)/mcL 03/28/2022 1:29 PM EST [facility] Hgb 14.4 11.2 - 15.7 g/dL 03/28/2022 1:29 PM EST [facility] Hct 45.4(H) 34.0 - 45.0 % 03/28/2022 1:29 PM EST [facility] MCV 89.9 80.0 - 100.0 fL 03/28/2022 1:29 PM EST [facility] MCH 28.5 26.0 - 34.0 pg 03/28/2022 1:29 PM EST [facility] MCHC 31.7 30.7 - 35.5 g/dL 03/28/2022 1:29 PM EST [facility] RDW 13.6 <=14.9 % 03/28/2022 1:29 PM EST [facility] Platelet 357 155 - 369 x10(3)/mcL 03/28/2022 1:29 PM EST [facility] MPV 8.9 8.8 - 12.5 fL 03/28/2022 1:29 PM EST [facility] Blood VENOUS BLOOD / Unknown Venipuncture / Unknown 03/28/2022 1:23 PM EST 03/28/2022 1:26 PM EST us Fredi Hamlin BOBBIN WASHER HEMATOLOGY [place] [address] * EK EKG 12 LEAD (03/28/2022 11:11 AM EST) Only the most recent of3 resultswithin the time period is included. Anatomical Region Laterality Modality Electrocardiogra phy 03/28/2022 11:1 3 AM EST Impressions 03/28/2022 12:[address] [facility] Test Date: 2022-03-28 Pat Name: STELLA HYLTON Department: DEPID Room: Gender: Female [employer]icon[employer] Bonder: Ap : 1945 Requested By: [facility] Order Number: [id number] Reading MD: Elbert Reyna MD Measurements Intervals [place] Rate: 92 P: 77 NC: 132 QRS: 82 QRSD: 106 T: 48 QT: 343 QTc: 425 Interpretive Statements SINUS RHYTHM Electronically Signed On 03-28-2022 12:30:04 EST by Elbert Reyna MD Narrative Procedure Note Elbert Reyna MD - 03/28/[address] [facility] Test Date: 2022-03-28 Pat Name: STELLA HYLTON Department: DEPID Room: Gender: Female [employer]icon[employer] Bonder: Jacob : 1945 Requested By: [facility] Order Number: [id number] Carlos MD: Elbert Reyna MD Measurements Intervals [place] Rate: 92 P: 77 NC: 132 QRS: 82 QRSD: 106 T: 48 QT: 343 QTc: 425 Interpretive Statements SINUS RHYTHM Electronically Signed On 03-28-2022 12:30:04 EST by Elbert Reyna MD us Marivel King DO IMG ECG ORDERABLES Final Resul t * HM HOLTER MONITOR RECORDING AND ANALYSIS (02/17/2022 9:30 AM EDT) Anatomical Region Laterality Modality Holter/Event Mon itoring 02/26/2022 7:27 AM EDT Impressions 02/26/2022 7:01 PM EDT [facility] Test Date: 2022-02-26 Pat Name: STELLA HYLTON Department: DEPID Room: Gender: Female [employer]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 Mann Irene MD Patient was monitored for 48 hours. INDICATIONS: Orthostatic hypotension CONCLUSION: Patient monitored for 2d 3h starting on 02/17/2022 09:24 am. Primary rhythm was Sinus Rhythm. Average heart rate was 88 bpm, Minimum heart rate was 67 bpm on Day :29:10 am, Max heart rate was 136 bpm on :57:50 pm SVE(s): [place] was 0.45 %, max count per 24 hours 581 SVT (AT, RT): 1 events, longest event 3 beats on Day :12:59 am, fastest event 181 bpm on :12:59 am PVC(s): [place] was 0.08 %, max count per 24 hours 104, 2 disparate morphologies PHYSICIAN SUMMARY: 1. Sinus rhythm with heart rates 67-136 bpm; average 88 bpm. 2. Occasional PACs. Occasional PVCs. 3. No detected arrhythmias. 4. No significant heart block or pauses. 5. No symptoms reported. Electronically Signed On 02-26-2022 19:01:30 EDT by Sergio Vincent Narrative Procedure Note Sergio Vincent MD - 02/26/2022 IMPRESSION [place] [facility] [facility] Test Date: 2022-02-26 Pat Name: STELLA HYLTON Department: DEPID Room: Gender: Female [employer]icon[employer]onder: : 1945 Requested By: MANN Arroyo Order Number: [id number] Reading MD: Sergio Vincent Interpretive Statements Business Controller Date: 02/17/2022 Referring Provider: Dr. Mann Irene MD Patient was monitored for 48 hours. INDICATIONS: Orthostatic hypotension CONCLUSION: Patient monitored for 2d 3h starting on 02/17/2022 09:24 am. Primary rhythm was Sinus Rhythm. Average heart rate was 88 bpm, Minimumheart rate was 67 bpm on Day :29:10 am, Max heart rate was 136 bpm on Day :57:50 pm SVE(s): [place] was 0.45 %, max count per 24 hours 581 SVT (AT, RT): 1 events, longest event 3 beats on Day :12:59 am,fastest event 181 bpm on Day :12:59 am PVC(s): [place] was 0.08 %, max count per 24 [...] IMG HOLTER MONITOR ORDERABLES Final Result * [facility] LOWER EXTREMITY ARTERIAL PHYSIOLOGICAL (10/31/2021 12:30 PM EDT) Only the most recent of3 resultswithin the time period is included. Anatomical Region Laterality Modality Vascular, Leg Electrocardiogra phy 10/31/2021 11:5 8 AM EDT Impressions 10/31/2021 3:42 PM EDT Conclusions * No evidence of arterial insufficiency is noted in the bilateral lower extremities. * Doppler waveforms, PVR's, and pressures are all within normal limits. * Digit PPG waveforms are normal and pressures are above healing index. Narrative Procedure Note DiazConor, DO - 10/31/2021 IMPRESSION Conclusions * No [...] 1,245 pg/mL 09/24/2021 4:50 PM EDT [facility] Folate 11.50 >=4.80 ng/mL 09/24/2021 4:50 PM EDT [facility] Blood VENOUS BLOOD / Unknown Venipuncture / Unknown 09/24/2021 8:48 AM EDT 09/24/2021 8:48 AM EDT Narrative [facility] - 09/24/2021 4:50 PM EDT Ingestion of lakshmi doses of biotin (>5 mg/day) taken within 8 hours of drawing blood sample can interfere with this immunoassay test. Mann Irene MD CHEMISTRY ORDERABLES Final Res ult [facility]REFERRED [facility] [address] [facility] , [address] [place] [id number] * SARS-COV-2 IGG (03/23/2020 7:53 AM EST) SARS-CoV-2 IgG (Nucleocapsid) Negative 03/23/2020 5:30 PM EST [facility]REF[facility] Blood VENOUS BLOOD / Unknown Venipuncture / Unknown 03/23/2020 7:53 AM EST 03/23/2020 7:54 AM EST Narrative [facility] - 03/23/2020 5:30 PM EST The SARS-CoV-2 IgG assay is a chemiluminescent microparticle immunoassay (CMIA) intended for the qualitative detection of IgG antibodies to SARS-CoV-2 in human serum or plasma. It may only be used under the Food and Drug Administration's Emergency Use Authorization. The assay is not intended for acute diagnostic purposes. Negative results do not preclude acute SARS-CoV-2 infection. False positive results may occur due to cross-reactivity from pre-existing antibodies or other possible causes. It is unknown for how long antibodies persist following infection and if the presence of IgG confers protective immunity. [facility] Provider Fact Sheet: https://www.[employer].gov/media/526056/download [facility] Patient Fact Sheet: https://www.[employer].gov/media/132894/download [facility] [address] IMMUNOLOGY ORDERABLES Final Result Performing Organization Address [facility] de Phone Number [facility] [address] [place] [address] , [place] [address] * THYROID STIMULATING HORMONE (03/23/2020 7:53 AM EST) Only the most recent of2 resultswithin the time period is included. TSH 0.629 0.270 - 4.200 mcIU/mL 03/23/2020 4:58 PM EST [facility] Blood VENOUS BLOOD / Unknown Venipuncture / Unknown 03/23/2020 7:53 AM EST 03/23/2020 7:54 AM EST Narrative [facility] - 03/23/2020 4:58 PM EST Ingestion of lakshmi doses of biotin (>5 mg/day) taken within 8 hours of drawing blood sample can interfere with this immunoassay test. [facility] CHEMISTRY ORDERABLES Final Result Performing Organization Address [facility] Co de Phone Number [facility] [address] [place] [address] , [place] [address] * SCANNED RHYTHM STRIPS (01/03/2020 9:38 AM EDT) Only the most recent of5 resultswithin the time period is included. Anatomical Region Laterality Modality Other 01/03/2020 9:38 AM EDT us Unknown Unknown IMG ECG ORDERABLES Final Result * CALCULI (STONE) ANALYSIS - REF LAB (01/02/2020 3:31 PM EDT) Calculi Comp See Note 01/06/2020 9:39 AM EDT [facility] Comment: Calculi composed primarily of: 80% calcium oxalate monohydrate, 10% calcium oxalate dihydrate, and 10% calcium phosphate (hydroxy- and carbonate- apatite). INTERPRETIVE INFORMATION: Calculi (Stone) analysis Calculi are the products of physiological processes that yield crystalline compounds in a matrix of biological compounds and blood. Matrix components are not reported. The clinically significant crystalline components identified in calculi specimens are reported. Gross description may not be consistent with composition determined by FTIR analysis. Performed By: [facility] [address] [place] [address] Media/Instructional Designer: Lobo Aguilar MD, MS Calculi Mass 37 mg 01/06/2020 9:39 AM EDT [facility] Calculi Number Numerous 01/06/2020 9:39 AM EDT [facility] Calculi Size 1 to 4 mm 01/06/2020 9:39 AM EDT [facility] Calculi Desc See Note 01/06/2020 9:39 AM EDT [facility] Comment: Specimen received in a wet gel substance, not the preferred dry state. Wet specimens often delay analysis. Specimen consists of numerous, small, brown/brown, irregular calculi fragments. [facility] STRUCTURE OF RIGHT URETERAL ORIFICE / Unknown 01/02/2020 3:31 PM EDT 01/02/2020 4:08 PM EDT us Amari Wheeler MD MICROBIOLOGY - GENERAL ORDERABLE S Final Result [facility] [address] [place], [place] [id number] * INTRAOP AIRWAY PLACEMENT (01/02/2020 3:02 PM EDT) Narrative [facility] - 01/02/2020 3:02 PM EDT Barber Oates CRNA 01/02/2020 3:02 PM Intraop Airway Placement: Induction type: IV Mask size: Standard adult Pre-Oxygenation: Standard Mask ventilation: Not attempted Airway type: LMA Device size: 4 Placement verified: End tidal CO2 Condition: Atraumatic and Unchanged Insertion attempts: 1 Attempt 1 by: TH Title: DIE PRESS OPERATOR London Cheng MD [place] ANESTHESIA Final Result Performing Organization Address [facility] Co de Phone Number [facility] [address] [place] [address] * CORONAVIRUS 2019 (12/29/2019 10:03 AM EDT) Only the most recent of2 resultswithin the time period is included. [facility] CORONAVIRUS [id number] Not Detected Not Detected 12/29/2019 11:33 PM EDT [facility] Comment:Caution should be ex ercised when interpreting [...] AM EDT 12/29/2019 10:03 AM EDT Narrative [facility] - 12/29/2019 11:33 PM EDT This test is a nucleic acid amplification test intended for the qualitative detection of nucleic acid from the SARS-CoV-2 in upper respiratory samples collected from individuals suspected of COVID-19. Test is performed on the [employer] platform under the FDA's Emergency Use Authorization (EUA). [employer] Provider Fact Sheet: https://www.fda.gov/media/979691/download [facility] Patient Fact Sheet: https://www.fda.gov/media/291281/download Amari Wheeler MD MICROBIOLOGY - GENERAL ORDERABLE S Final Result [facility] [address] [facility] , [place] [address] * XR ABDOMEN AP (12/05/2019 11:18 AM EDT) Only the most recent of2 resultswithin the time period is included. Anatomical Region Laterality Modality Abdomen Radiographic Demetra ging 12/05/2019 11:1 8 AM EDT Impressions 12/05/2019 12:06 PM EDT Interval placement right ureteral stent. Inferior pole right renal calculus essentially stable. - Narrative 12/05/2019 12:06 PM EDT CR, ABDOMEN AP, 12/05/2019 11:18 AM CLINICAL HISTORY: R82.79-Other abnormal findings on microbiological examination of wvfkr-TQJ-29-CM E78.00-Pure hypercholesterolemia, dhcpojbvdhc-AIE-87-CM COMPARISON: CT 10/31/2019 PROCEDURE COMMENTS: AP view(s) [...] HISTORY: R82.79-Other abnormal findings on microbiologicalexamination of sqhod-QQO-03-CM E78.00-Pure hypercholesterolemia, setvevanvqr-CME-50-CM COMPARISON: CT 10/31/2019 PROCEDURE COMMENTS: AP view(s) [...] will not be interpreted by a Radiologist. There is no charge from [facility]. Refer to OpNote for Report. Amari Wheeler MD IMG FLUOROSCOPY ORDERABLES Final Result Performing Organization Address [facility] Co de Phone Number P[facility] * INTRAOP AIRWAY PLACEMENT (11/28/2019 12:56 PM EDT) Narrative [facility] - 11/28/2019 12:56 PM EDT Rachael Milligan CRNA 11/28/2019 12:57 PM Intraop Airway Placement: Induction type: IV Mask [...] Atraumatic and Unchanged Insertion attempts: 1 Title: DIE PRESS OPERATOR Raghav Nolan MD NC ANESTHESIA Final Re sult Performing Organization Address [facility] Co de Phone Number [facility] [address] [place] [address] * CT ABDOMEN PELVIS WO ORAL OR [...] of2 resultswithin the time period is included. CK 79 26 - 192 U/L 10/31/2019 1:19 AM EDT [facility] Blood VENOUS BLOOD / Unknown Venipuncture / Unknown 10/30/2019 11:58 PM EDT 10/31/2019 12:03 AM EDT us Jorge Luis Sharif MD CHEMISTRY ORDERABLES Final Result [facility] [address] [facility] [place] [address] * PATHOLOGY TISSUE REQUEST (10/26/2019 10:49 AM EDT) CASE REPORT Surgical Pathology Case: [id number] Authorizing Provider: Amari Wheeler MD Collected: 10/26/2019 1049 Ordering Location: [facility] Received: 10/26/2019 1235 Pathologist: Albina Reilly MD Specimen: Bladder, Urinary, bladder biopsy 10/28/2019 3:18 PM EDT [facility] FINAL DIAGNOSIS Urinary bladder, biopsy: - Urothelial mucosa with acute and chronic inflammation, and reactive atypia. - Negative for malignancy. 10/28/2019 3:18 PM EDT [facility] at 1518 EDT COMMENT 10/28/2019 3:18 PM EDT [facility] GROSS DESCRIPTION Received in formalin, labeled with the patient's name and bladder biopsy is a 0.3 cm in greatest dimension brown-white tissue fragment which is submitted in toto in one cassette. /TE 10/28/2019 3:18 PM EDT [facility] MICROSCOPIC DESCRIPTION Microscopic examination is performed and the findings corroborate the diagnosis. CK 20 immunostain is negative. P53 immunostain shows patchy positivity of basal cells. The immunostains profile supports the diagnosis. 10/28/2019 3:18 PM EDT [facility] SPECIAL STAINS All controls show appropriate reactivity. ASR: Some of the immunohistochemical stains were developed and their performance characteristics determined by [facility]. They have not been cleared or approved [...] clinical laboratory testing. 10/28/2019 3:18 PM EDT [facility] EMBEDDED IMAGES 10/28/2019 3:18 PM EDT [facility] Tissue URINARY BLADDER STRUCTURE / Unknown 10/26/2019 10:49 AM EDT 10/26/2019 12:35 PM EDT us Amari Wheeler MD PATHOLOGY ORDERABLES Final Resul t [facility] [address] [place] [address] [facility] [address] [place] [address] * INTRAOP AIRWAY PLACEMENT (10/26/2019 10:32 AM EDT) Narrative [facility] - 10/26/2019 10:32 AM EDT Dwaine Dykes CRNA 10/26/2019 10:42 AM Intraop Airway Placement: Date/Time: 10/26/2019 10:32 AM Induction type: IV Airway type: Nasal cannula salter us Michelle Tucker MD NC ANESTHESIA Edited Result - Final Performing Organization Address [facility] Co de Phone Number [facility] [address] [place] [address] * CORONAVIRUS 2019 (COVID-19) - REF LAB (10/21/2019 9:52 AM EDT) CORONAVIRUS [id number] NON-DETEC ARNOLD NON-DETEC ARNOLD 10/22/2019 11:54 PM EDT [facility] Comment: A Non-Detected result does not preclude the possibility of 2019-nCoV infection since the adequacy of sample collection and/or low viral burden may result in the presence of viral nucleic acids below the analytical sensitivity of this test method. Test results should be used with caution and in conjunction with other clinical and laboratory data in making a diagnosis. Swab NASOPHARYNGEAL STRUCTURE / Unknown 10/21/2019 9:52 AM [...] developed and performance characteristics are determined by [employer]. It has not been cleared nor approved by the FDA. The laboratory is accredited through CLIA and deemed qualified to perform high-complexity testing. Such testing is used for clinical purposes and should not be regarded as investigational or for research. [place] Pat ID: [id number]; [place] Req Num: [id number]; [place] Spec ID: [id number] Amari Wheeler MD LAB SEND OUT ORDERABLES Final Re sult [facility] [address] [place] [address], [facility] [phone] * CT ABDOMEN PELVIS HEMATURIA/RENAL MASS PROTOCOL [...] HISTORY: Hematuria. N39.0-Urinary tract infection, site not rflsordke-MQQ-49-CM R39.14-Feeling of incomplete bladder rkgsedqp-BZJ-53-CM COMPARISON: None. PROCEDURE COMMENTS: Multi-detector volumetric scanning of the abdomen with multiplanar reformatting following the hematuria protocol. Imaging included non-contrast and contrast enhanced phases. Excretory phase imaging included. 75 mL Isovue 370 IV contrast given. Automated exposure control for dose reduction was [...] to chronic inflammation from stone. Corticomedullary phase: No renal mass lesion identified. [...] stones. No gross pelvic masses. Remaining viscera: 3 cm infrarenal AAA. Procedure Note Prabhu Cheatham MD - 07/22/2019 CT ABDOMEN PELVIS WITH AND WITHOUT CONTRAST HEMATURIA/RENAL MASS PROTOCOL, 07/22/2019 9:57 AM CLINICAL HISTORY: Hematuria. N39.0-Urinary tract infection, site not ilmnvbrry-GOH-73-CM R39.14-Feeling of incomplete bladder aavgwqwz-JFY-50-CM COMPARISON: None. PROCEDURE COMMENTS: Multi-detector volumetric scanning [...] - 1.3 mg/dL 07/22/2019 9:49 AM EDT [facility] Blood BLOOD SPECIMEN / Unknown 07/22/2019 9:48 AM EDT 07/22/2019 9:49 AM EDT Amari Wheeler MD POINT OF CARE TEST [place] [address] * NON-LABORER SHAFT SINKING CYTOLOGY REQUEST (07/20/2019 2:53 PM EDT) CASE REPORT Non-gynecologi c Cytology Case: [id number] Authorizing Provider: Amari Wheeler MD Collected: 07/20/2019 1453 Ordering Location: [facility] Received: 07/20/2019 1453 Pathologist: Albina Reilly MD Specimen: Bladder, Urinary 07/21/2019 2:09 PM EDT [facility] NON-LABORER SHAFT SINKING CYTOLOGY FINAL DIAGNOSIS Urinary bladder washing: - Negative for high grade urothelial carcinoma. - Benign urothelial cells and abundant acute inflammation. 07/21/2019 2:09 PM EDT [facility] at 1409 EDT EMBEDDED IMAGES 07/21/2019 2:09 PM EDT [facility] MICROSCOPIC DESCRIPTION Microscopic examination is performed and the findings corroborate the diagnosis. 07/21/2019 2:09 PM EDT [facility] GROSS DESCRIPTION Urine, Bladder,Rec'd 90ml Momin fluid.(TP) 07/21/2019 2:09 PM EDT [facility] Urine URINARY BLADDER STRUCTURE / Unknown 07/20/2019 2:53 PM EDT 07/20/2019 2:53 PM EDT us Amari Wheeler MD CYTOLOGY ORDERABLES Final Result [facility] [address] [place] [address] * POCT BLADDER SCAN (07/20/2019 11:37 AM EDT) Urine Volume (Preservative) 24 ml SEP OFFICE 07/20/2019 11:3 7 AM EDT us Amari Wheeler MD POINT OF CARE IMAGING [...] SEP OFFICE Ketones, UA neg POS/NEG SEP accounts receivable assistant Grav, UA 1.025 1.001 - 1.035 G/DL [...] OFFICE Urine 07/20/2019 11:3 7 AM EDT us Amari Wheeler MD POINT OF CARE TEST ORDERABLES Fi nal Result Performing Organization Address [facility] de Phone Number SEP OFFICE * INTRAOP AIRWAY PLACEMENT (03/14/2019 9:37 AM EST) Narrative [facility] - 03/14/2019 9:37 AM EST Rose Gooden, DIE PRESS OPERATOR 03/14/2019 9:37 AM Intraop Airway Placement: Airway type: Nasal cannula salter Rose Gooden DIE PRESS OPERATOR [place] ANESTHESIA F inal Result Performing Organization Address [facility] de Phone Number [facility] [address] [place] [address] * INTRAOP AIRWAY PLACEMENT (02/28/2019 9:46 AM EDT) Narrative [facility] - 02/28/2019 9:46 AM EDT Rose Gooden, DIE PRESS OPERATOR 02/28/2019 9:46 AM Intraop Airway Placement: Airway type: Nasal cannula salter Lexi Golden MD NC ANESTHESIA Final R esult Performing Organization Address [facility] de Phone Number [facility] [address] [place] [address] * DX BONE DENSITY AXIAL SKELETON (02/10/2019 11:38 AM EDT) Anatomical Region Laterality Modality Dexa Scan 02/10/2019 Narrative 02/10/2019 2:04 PM EDT Indication: The patient is a female age 65 or older who requires a bone density assessment. Study was performed on [place] 5. Bone Density: Region BMD T-score Z-score [...] - 15.7 g/dL 12/31/2018 7:01 AM EDT [facility] Hct 36.7 34.0 - 45.0 % 12/31/2018 7:01 AM EDT [facility] Blood Venipuncture / Unknown 12/31/2018 6:42 AM EDT 12/31/2018 6:51 AM EDT Bruce Oh MD HEMATOLOGY ORDERABLES Final Result [facility] [address] [facility] , [place] [address] * XR KNEE LEFT AP AND LATERAL (12/28/2018 5:06 PM EDT) Anatomical Region Laterality Modality Knee Radiographic Demetra ging 12/28/2018 5:06 PM EDT Impressions 12/28/2018 5:11 PM EDT Status post left total knee arthroplasty with no visible complication. - Narrative 12/28/2018 5:11 PM EDT LEFT KNEE AP AND LATERAL, 12/28/2018 5:06 [...] with no visible complication. - us Bruce REMY DIAGNOSTIC IMAGING ORDER LILLIAN Final Result * FL < 1 HOUR (12/28/2018 3:17 PM EDT) Only the most recent of3 resultswithin the time period is included. Narrative [facility] - 12/28/2018 3:18 PM EDT Fluoroscopy was performed. The radiologist was not in attendance. No permanent images were obtained. This dictation is being made for record keeping purposes. us Bruce REMY FLUOROSCOPY ORDERABLES F inal Result [facility] * INTRAOP AIRWAY PLACEMENT (12/28/2018 2:56 PM EDT) Narrative [facility] - 12/28/2018 2:56 PM EDT Noelle Joy 12/28/2018 3:00 PM Intraop Airway Placement: Date/Time: 12/28/2018 2:28 [...] and Unchanged Insertion attempts: 1 Title: RNSA Procedure Note Noelle Joy - 12/28/2018 2:56 [...] patient being edentulous. us Jonathan Holland MD [place] ANESTHESIA Edited [facility] [address] [place] [id number] * Peripheral Block by Anesthesia (12/28/2018 1:34 PM EDT) Narrative [facility] - 12/28/2018 1:34 PM EDT Marisol Alva MD 12/28/2018 1:35 PM Peripheral Block by Anesthesia Procedure Date/Time: [...] ORDERABLES Final Resu lt Performing Organization Address [facility] Co de Phone Number [facility] [address] [place] [address] * BB HISTORY CHECK (12/15/2018 9:33 AM EDT) BB HISTORY CHECK (1) Previous History OK 12/15/2018 9:56 AM EDT [facility] Blood VENOUS BLOOD / Unknown Venipuncture / Unknown 12/15/2018 9:33 AM EDT 12/15/2018 9:40 AM EDT Bruce Oh MD BLOOD BANK ORDERABLES Final Result Performing Organization Address [facility] Co de Phone Number [facility] [address] [place] [address] * SURGERY DATE (12/15/2018 9:33 AM EDT) Surgery Date (1) Complete 12/15/2018 9:57 AM EDT [facility] Blood VENOUS BLOOD / Unknown Venipuncture / Unknown 12/15/2018 9:33 AM EDT 12/15/2018 9:40 AM EDT Bruce Oh MD BLOOD BANK ORDERABLES Final Result Performing Organization Address [facility] Co de Phone Number [facility] [address] [place] [address] * ABORH (12/15/2018 9:33 AM EDT) Only the most recent of2 resultswithin the time period is included. ABORH Int O POS 12/15/2018 11:27 AM EDT [facility] Blood VENOUS BLOOD / Unknown Venipuncture / Unknown 12/15/2018 9:33 AM EDT 12/15/2018 9:40 AM EDT Bruce Oh MD BLOOD BANK ORDERABLES Final Result Performing Organization Address City/[facility] Co de Phone Number [facility] [address] [place] [address] * PT / INR (12/15/2018 9:33 AM EDT) Only the most recent of2 resultswithin the time period is included. Pathologist [facility] PT 11.4 9.7 - 12.5 second(s) 12/15/2018 10:01 AM EDT [facility] INR 1.01 0.86 - 1.10 no units 12/15/2018 10:01 AM EDT [facility] Comment: Level of Therapy Indications Target INR Range Standard Dose Treatment and prophylaxis of venous 2.0 - 3.0 thrombosis, pulmonary embolism High Dose High risk patients with mechanical 2.5 - 3.5 heart valves Blood VENOUS BLOOD / Unknown Venipuncture / Unknown 12/15/2018 9:33 AM EDT 12/15/2018 9:40 AM EDT Bruce Oh MD HEMATOLOGY ORDERABLES Final Result Performing Organization Address City/[facility]/ZIP Co de Phone Number [facility] 1 [facility], [place] [address] * ANTIBODY SCREEN IGG (12/15/2018 9:33 AM EDT) Only the most recent of2 resultswithin the time period is included. ABSC IgG Int Negative 12/15/2018 11:03 AM EDT [facility] Blood VENOUS BLOOD / Unknown Venipuncture / Unknown 12/15/2018 9:33 AM EDT 12/15/2018 9:40 AM EDT us Bruce Oh MD BLOOD BANK ORDERABLES Final Result [facility] [address] [place] [address] [place] [id number] * MM MOBILE MAMMO DIGITAL SCREEN W CAD ZEB (10/15/2018 8:41 AM EDT) Only the most recent of2 resultswithin the time period is included. Anatomical Region Laterality Modality Breast Mammography 10/18/2018 7:37 AM EDT Impressions 10/18/2018 7:37 AM EDT Negative (JYL-Meuroufb-5) ~ RECOMMENDATION: Routine screening mammogram in 1 [...] for screening mammogram for malignant neoplasm of vbxchu-FLR-39-CM ~ MM MOBILE MAMMO DIGITAL SCREEN W [...] for screening mammogram for malignant neoplasm of euvrph-HGF-84-CM ~ MM MOBILE MAMMO DIGITAL SCREEN W CAD ZEB Bilateral CC and MLO view(s) were taken. There are scattered fibroglandular densities. Prior study comparison: Compared with prior studies the most recentbeing 09/14/17, 10/07/13 No mammographic evidence of malignancy. ~ IMPRESSION: Negative ([id number]-Kdxwwfzf-7) ~ RECOMMENDATION: Routine screening mammogram in 1 [...] e Non-Reacti ve 10/13/2017 6:45 PM EDT [facility] Blood VENOUS BLOOD / Unknown Venipuncture / Unknown 10/13/2017 8:26 AM EDT 10/13/2017 8:26 AM EDT Mann Irene MD HEMATOLOGY ORDERABLES Final Re sult [facility] [address] [place] [address] , [facility] [place] [address] * POCT INFLUENZA A/B (07/30/2015 12:16 PM EDT) Influenza A Ag neg SEP OFFICE Influenza B Ag neg SEP OFFICE Lot Number SEP OFFICE Expiration Date SEP OFFICE 07/30/2015 12:1 6 PM EDT Mann Irene MD POINT OF CARE TEST ORDERABLES Final Result SEP OFFICE * URIC ACID (03/02/2015 3:22 PM EDT) Uric Acid 4.6 2.4 - 5.7 mg/dL [facility] Blood specimen (specimen) UPPER LIMB STRUCTURE / Unknown 03/02/2015 3:22 PM EDT 03/02/2015 9:30 PM EDT us Stefania Braun MD CHEMISTRY ORDERABLE S Final Result Performing Organization Address [facility] Co de Phone Number [facility] [address] [place] [address] * LDL, CALCULATED (09/01/2014 9:01 AM EDT) Only the most recent of3 resultswithin the time period is included. [facility] LDL Calculated 89 <=100 mg/dL [facility] Comment: < 100 Optimal 100 - 129 Near or above optimal 130 - 159 Borderline High 160 - 189 High >= 190 Very High Blood specimen (specimen) 09/01/2014 9:01 AM EDT 09/01/2014 7:00 PM EDT us Mann Irene MD CHEMISTRY ORDERABLES Final Res ult Performing Organization Address [facility] de Phone Number [facility] [address] [place] [address] * LIPID PANEL REFLEX (09/01/2014 9:01 AM EDT) Only the most recent of3 resultswithin the time period is included. [facility] Cholesterol 148 <=200 mg/dL [facility] Comment: < 200 Desirable 200 - 239 Borderline High >= 240 High Triglyceride 77 <=150 mg/dL [facility] Comment: < 150 Normal 150 - 199 Borderline High 200 - 499 High >= 500 Very High HDL 44 >=40 mg/dL [facility] Comment: > 60 Optimal 40 - 60 Acceptable < 40 Low Blood specimen (specimen) UPPER LIMB STRUCTURE / Unknown 09/01/2014 9:01 AM EDT 09/01/2014 7:00 PM EDT us Mann Irene MD CHEMISTRY ORDERABLES Edited Re sult - Final Performing Organization Address [facility] de Phone Number [facility] [address] [place] [address] * DIFFERENTIAL (09/01/2014 9:01 AM EDT) Only the most recent of3 resultswithin the time period is included. [facility] Neut Percent 60.7 % [facility] Lymph Percent 27.1 % [facility] Cobb Percent 6.4 % [facility] Eos Percent 4.8 % [facility] Baso Percent 1.0 % [facility] Neut# 5.0 1.8 - 7.7 x10(3)/mcL [facility] Lymph# 2.2 0.6 - 4.8 x10(3)/mcL [facility] Cobb# 0.5 0.0 - 1.3 x10(3)/[facility] Eos# 0.4 0.0 - 0.5 x10(3)/[facility] Baso# 0.1 0.0 - 0.2 x10(3)/[facility] Blood specimen (specimen) 09/01/2014 9:01 AM EDT 09/01/2014 7:00 PM EDT Mann Irene MD HEMATOLOGY ORDERABLES Final Re sult Performing Organization Address [facility]/[place] [address] * GMED COLONOSCOPY (07/10/2014 12:00 PM EST) 07/10/2014 12:0 0 PM EST Impressions [facility] - 07/10/2014 12:20 PM EST Polyp (3 mm) in the distal sigmoid colon. (Polypectomy). Plan: Follow-up as needed This section is an excerpt of the full report. Edil Mann MD GI PROCEDURE ORDERABLES Fin al Result Performing Organization Address [facility] [place] [address] * PATHOLOGY TISSUE REPORT (07/10/2014 12:00 PM EST) Pathologist [facility] Surgical Pathology Report PATIENT NAME:STELLA HYLTON Surgical Pathology Report Accession Number Collected Date/Time Received Date/Time [id number] 07/10/14 12:00 EST 07/10/14 21:39 EST Diagnosis Distal sigmoid colon, endoscopic polypectomy: - Hyperplastic polyp. MONIKA HSU (Electronically signed by) Verified: 07/11/2014 FTT Lab Clinical Information Screening, colorectal cancer. Polyp in the distal sigmoid colon. Gross Description Received in formalin labeled with the patient s name and distal sigmoid polyp is a single fragment of brown tissue, 0.5 cm in greatest dimension. Entirely submitted in one cassette. /DIMITRI BILLINGSLEY / Microscopic Description Microscopic examination is performed and the findings corroborate the diagnosis. [facility] 07/10/2014 12:0 0 PM EST us Edil Mann MD PATHOLOGY ORDERABLES Final Result [facility] [address] [place] [address] * SCANNED PRE/POST PROCEDURES (02/23/2014 10:17 AM [...] right total hip arthroplasty. Tiffany Elizondo PATRICIA IMG DIAGNOSTIC IMAGING ORD ERABLES Final Result [...] spots from right ANANTH. Bruce Oh MD [facility] ORDER LILLIAN Final Result * STAPHYLOCOCCUS AUREUS SCREEN (02/09/2014 8:40 AM EDT) Final No growth of Staphylococcus aureus [facility] Specimen from nose (specimen) 02/09/2014 8:40 AM EDT 02/09/2014 9:54 AM EDT Bruce Oh MD MICROBIOLOGY - GENERAL ORDER LILLIAN Final Result [facility] [address] [place] [address] * PARTIAL THROMBOPLASTIN TIME (02/09/2014 8:40 AM EDT) PTT 30.8 25.6 - 35.5 second(s) [facility] Comment: Therapeutic range for direct thrombin inhibitors: Argatroban is 1.5 to 3 times the aPTT baseline. Lepirudin is 1.5 to 2 times the aPTT baseline. The aPTT should not exceed 100 seconds. The dosage of Argatroban should be decreased in patients with hepatic impairment. The dosage of Lepirudin should be decreased in renal insufficiency. The aPTT is no longer the appropriate test to monitor unfractionated heparin anticoagulation. Blood specimen (specimen) 02/09/2014 8:40 AM EDT 02/09/2014 8:44 AM EDT us Bruce Oh MD HEMATOLOGY ORDERABLES Final Result Performing Organization Address City/State/[facility] Co de Phone Number [facility] [address] [place] [address] * MRI FEMUR RIGHT WO CONTRAST (12/21/2013 [...] AM EDT MRI FEMUR RIGHT WO CONTRAST Dec 21, [...] MD IMG MRI ORDERABLES Final Resul t * XR FEMUR RIGHT AP AND LATERAL (12/16/2013 1:48 PM EDT) Anatomical Region Laterality Modality Thigh Radiographic Demetra ging 12/16/2013 1:04 PM EDT Impressions 12/16/2013 3:09 PM EDT IMPRESSION: Osteoarthritis of the right hip joint. Otherwise, normal right femur. Narrative 12/16/2013 3:09 PM EDT XR FEMUR RIGHT AP AND LATERAL Dec 16, 2013 01:48:57 PM Clinical: 729.5-Pain in [id number]-[id number] COMPARISONS: None. FINDINGS: There are no acute or healing fractures in the right femur. 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 The surrounding soft tissues are normal. Procedure Note Chasity Marie MD - 12/16/2013 XR FEMUR RIGHT AP AND LATERAL Dec 16, 2013 01:48:57 PM Clinical: 729.5-Pain in [id number] COMPARISONS: None. FINDINGS: There are no acute or healing fractures in the right femur. There ismoderate osteoarthritis of the right femoral acetabular joint. The surrounding soft tissues arenormal. IMPRESSION: Osteoarthritis of the right hip joint. Otherwise, normal right femur. Stefania Allison Braun MD IMG DIAGNOSTIC IMAG ING ORDERABLES Final Result * MM MAMMO DIGITAL SCREENING W CAD BILAT (10/07/2013 1:12 PM EDT) Anatomical Region Laterality Modality Breast Bilateral Mammography 10/10/2013 8:38 AM EDT Impressions 10/11/2013 9:06 AM EDT : Negative ([id number]) ~ RECOMMENDATION: Routine screening mammogram in 1 [...] There are scattered fibroglandular densities. There are bilateral normal appearing lymph nodes in [...] architecturaldistortion in either breast. ~ IMPRESSION: Negative ([id number]) ~ RECOMMENDATION: Routine screening mammogram in 1 [...] IMG MAMMOGRAPHY ORDERABLES Fin al Result * POCT HEMOCCULT 1-3 CARDS (03/18/2013 3:15 PM EST) Fec Heme neg Pos/Neg SEP OFFICE Lot Number SEP OFFICE Expiration Date SEP OFFICE SeriAl # SEP OFFICE Stool specimen (specimen) 03/18/2013 3:15 PM EST Result [facility] Mann Irene MD POINT OF CARE TEST [...] THE LUMBOSACRAL SPINE 1212 HOURS 11/03/2012: HISTORY: Spinal surgery. Retraction device and localization devices directed towards the L4-L5 disc. Procedure Note Ashanti Stanley MD - 11/04/2012 INTRAOPERATIVE LOCALIZATION VIEW OF THE LUMBOSACRAL SPINE 1212 HOURS11/03/2012: HISTORY: Spinal surgery. Retraction device and localization devices directed towards the L4-L5disc. us Elza Bautista MD [facility] ORDERAB LES Final Result * [...] diseaseabout the SI joints. IMPRESSION: Degenerative changes. Mann Irene MD IM DIAGNOSTIC IMAGING ORDERAB LES Final Result Visit [...] hyperlipidemia 04/14/2013 Hypercholesterolemia Pure hypercholesterolemia 09/26/2013 Claudication Peripheral vascular disease, unspecified 09/26/2013 Other screening mammogram 09/26/2013 Well adult exam Routine general medical examination at a health care facility 09/26/2013 Heart murmur Undiagnosed cardiac murmurs 09/26/2013 Screen for colon cancer Special screening for malignant neoplasms, colon 09/26/2013 Hypercholesterolemia Pure hypercholesterolemia 09/26/2013 Osteoarthritis Osteoarthrosis, unspecified whether generalized or localized, unspecified site 09/26/2013 Claudication Peripheral vascular disease, unspecified 10/07/2013 Other screening [...] Hip fracture, unspecified laterality, closed, initial encounter ([facility]) 12/22/2013 Dysuria 01/16/2014 Dysuria 01/16/2014 UTI (urinary tract infection) Urinary tract infection, site not specified 01/16/2014 Dysuria 01/19/2014 OA (osteoarthritis) Osteoarthrosis, unspecified whether generalized or localized, unspecified site 02/09/2014 Pre-op testing Preoperative examination, unspecified 02/09/2014 Anticoagulant disorder Other and unspecified coagulation defects 02/09/2014 Primary [...] other and unspecified deficiency anemia 10/13/2017 Claudication Peripheral vascular disease, unspecified 10/13/2017 Acute bronchitis, unspecified organism 10/13/2017 Seasonal allergic rhinitis due to pollen 11/17/2017 Claudication Peripheral vascular disease, unspecified 12/11/2017 Pure hypercholesterolemia [...] at a health care facility 12/06/2018 Claudication Peripheral vascular disease, unspecified 12/06/2018 Osteoarthritis, unspecified [...] at a health care facility 12/08/2019 Claudication Peripheral vascular disease, unspecified 12/08/2019 Pure hypercholesterolemia [...] unspecified 09/16/2021 Diarrhea, unspecified type 09/17/2021 Claudication Peripheral vascular disease, unspecified 09/24/2021 Hypercholesterolemia Pure hypercholesterolemia 09/24/2021 Osteoarthritis, unspecified osteoarthritis type, unspecified site 09/24/2021 Dysphagia, unspecified type 09/24/2021 PVD (peripheral vascular disease) Peripheral vascular disease, unspecified 09/24/2021 Bruit Other symptoms involving cardiovascular system 09/24/2021 Chronic fatigue Other malaise and fatigue 09/24/2021 Vitamin D deficiency Unspecified vitamin D deficiency 09/24/2021 Acute bacterial sinusitis Acute sinusitis, unspecified 09/24/2021 Hypercholesterolemia Pure hypercholesterolemia 10/20/2021 PVD (peripheral vascular disease) Peripheral vascular disease, unspecified 10/31/2021 Bruit Other symptoms involving cardiovascular system 10/31/2021 Claudication Peripheral vascular disease, unspecified 10/31/2021 Advanced atrophic [...] specified counseling 11/07/2022 PVD (peripheral vascular disease) Peripheral vascular disease, unspecified 11/07/2022 Essential hypertension [...] degeneration of left eye, unspecified stage (HCC) 07/15/2023 Chronic diastolic (congestive) heart failure (HCC) 07/15/2023 PVD (peripheral vascular disease) Peripheral vascular disease, unspecified 07/15/2023 Bilateral carotid artery stenosis Occlusion and stenosis of multiple and bilateral precerebral arteries without mention of cerebral infarction 07/15/2023 PVD (peripheral vascular disease) Peripheral vascular disease, unspecified 07/23/2023 Bilateral carotid [...] 02/15/2024 Chronic pain of right knee 02/15/2024 Spinal stenosis of lumbar region, unspecified whether neurogenic claudication present 03/28/2024 DDD (degenerative disc disease), lumbar Degeneration of lumbar or lumbosacral intervertebral disc 03/28/2024 Osteoporosis, unspecified osteoporosis type, unspecified pathological fracture presence 03/28/2024 Neuroforaminal stenosis of lumbar spine 03/28/2024 Lumbar pain Lumbago 03/28/2024 Right sided sciatica Sciatica 03/28/2024 Primary osteoarthritis of right knee Primary localized osteoarthrosis, lower leg 05/31/2024 Osteoporosis, unspecified osteoporosis type, unspecified pathological fracture presence 05/31/2024 Spinal stenosis of lumbar region, unspecified whether neurogenic claudication present 05/31/2024 Neuroforaminal stenosis of lumbar spine 05/31/2024 Lumbar radiculopathy Thoracic or lumbosacral neuritis or radiculitis, unspecified 05/31/2024 Intervertebral disc disorder with radiculopathy of lumbosacral region Thoracic or lumbosacral neuritis or radiculitis, unspecified 05/31/2024 Spondylosis of lumbosacral region without myelopathy or radiculopathy Lumbosacral spondylosis without myelopathy 05/31/2024 Failed back syndrome of lumbar spine Postlaminectomy syndrome, lumbar region 05/31/2024 Myofascial pain Mylagia and myositis, unspecified 05/31/2024 Chronic pain syndrome 05/31/2024 GERD without esophagitis Esophageal reflux 07/11/2024 GERD without esophagitis Esophageal reflux 07/12/2024 Age-related osteoporosis without current pathological fracture Senile osteoporosis 02/14/2025 Hypercholesterolemia Pure hypercholesterolemia 02/16/2014 OA (osteoarthritis)-s/p RIGHT [...] MICHELLE to have help getting new [place] plan by end of February 2023 General Yes Geraldine Whiteside RN Stay Tobacco Free Lifestyle No Oralia Merida CCMA Care Teams Floor Covering Installer Relationship Specialty Start Date End Date Palma Jj DO [email or web address] [place] [phone] PCP - General Family Medicine 07/14/22
== END 2025-04-04 23:59 ==
LOC: LAB.DROPOF 04-05 09:59
PROVIDERS: PCP Family Medicine; Visit Provider Family Medicine
DX: R53.1 Weakness (principal); G31.83 Neurocognitive disorder with Lewy bodies; F02.A2 Dementia in other diseases classified elsewhere, mild, with psychotic disturbance; R79.89 Other specified abnormal findings of blood chemistry
CPT/HCPCS: 80053; 84443; 85025

== ENCOUNTER 2025-04-12 10:16 | Outpatient (CLI) | payer MEDICARE, MEDICAID, SELFPAY ==
--- NOTE | 2025-04-12 10:16 | XR_ITS ---
FINAL REPORT CLINICAL HISTORY: left knee pain COMPARISON: None FINDINGS: AP, lateral and oblique views of the left knee were obtained. There is no prior exam for comparison. There are changes of a total knee arthroplasty. The hardware is intact. There is no acute osseous abnormality of the left knee. The joint space is preserved. The soft tissues are normal. There is no joint effusion. IMPRESSION: No acute osseous abnormality of the left knee. Reviewed, Interpreted and Dictated by Ramandeep [place] MD Transcribed by Malena Ravi Authenticated and [facility]
--- OUTSIDE RECORDS SUMMARY | 2025-04-12 10:20 | XMS_ITS | Clinical Summary ---
Author Organization [employer] ([place], [place], [place], [place], [place]) Address [address] [place] [address] Care Team Providers Care Door Closer Name Role Phone Unavailable Primary Care Provider [...] Shingles Vaccine (Zoster) Completed 04/15/2024, 08/2023 Insurance [facility] MCR ADV DUAL COMPLETE
--- OUTSIDE RECORDS SUMMARY | 2025-04-12 10:20 | XMS_ITS | Referral Summary ---
Author Organization [employer] ([place], [place], [place], [place], [place]) Address [address] [place] [address] Care Team Providers Care Rolfer Name Role Phone Unavailable Primary Care Provider [...] Plan of Treatment Not on file Insurance [facility] MCR ADV DUAL COMPLETE
--- OUTSIDE RECORDS SUMMARY | 2025-04-12 10:20 | XMS_ITS | Encounter Summary ---
Author Organization [place] [address] Care Team Providers Care Coding Educator Name Role Phone Palma Jj DO Primary Care Provider + [phone] Encounter Details Date Type Department Care Team (Late st Contact Info) Description 02/16/2025 Orders Only [facility] [address] [place] [address] Julianna Lea MA Social History Tobacco [...] Date Recorded PHQ-2 Total Score 0 11/09/2023 [facility] of Occupat ional Health - Occupational Stress [...] UMA MICHELLE to have help getting new [place] plan by end February 2023 General Yes [...] documented as of this encounter Care Teams Coding Educator Relationship Specialty Start Date End Date Palma Jj DO [address] [place] [id number] PCP - General Family Medicine 07/14/22 documented as of this encounter
--- OUTSIDE RECORDS SUMMARY | 2025-04-12 10:20 | XMS_ITS | Encounter Summary ---
Author Organization [employer] ([place], [place], [place], [place], [place]) Address [address] [place] [address] Care Team Providers Care Satellite Tv Installer Name Role Phone Unavailable Primary Care Provider [...]
--- OUTSIDE RECORDS SUMMARY | 2025-04-12 10:20 | XMS_ITS | Encounter Summary ---
Author Organization [place] [address] Care Team Providers Care Cloth Washer Name Role Phone Mann Irene MD Primary Care Provider [phone] Palma Jj DO Primary Care Provider + [phone] Olesya Estrada BUILDINGS AND GROUNDS SUPERINTENDENT Unavailable Unava ilable Geraldine Whiteside RN Unavailable Unavailable Encounter Details Date Type Department Care Team (Late st Contact Info) Description 07/10/2014 Orders Only [facility] [address] [facility] [address] [place] [address] Edil Mann MD [address] [place] [phone] Social History Tobacco Use Types Packs/Day Years [...] EST) 07/10/2014 12:0 0 PM EST Impressions [facility] - 07/10/2014 12:20 PM EST Polyp (3 mm) in the distal sigmoid colon. (Polypectomy). Plan: Follow-up as needed This section is an excerpt of the full report. us Edil Mann MD GI PROCEDURE ORDERABLES Fin al Result [facility] [address] [place] [address] documented in this encounter Visit Diagnoses Not on filedocumented in this encounter Additional Health Concerns Infection Onset Date Last Indicated Resolved Time ESBL organism 11/16/2019 11/16/2019 03/28/2022 1:0 5 PM EST R/O COVID-19 03/29/2022 03/29/2022 03/30/2022 12:1 6 PM EST documented as of this encounter Care Teams Cloth Washer Relationship Specialty Start Date End Date Mann Irene MD [address] [place] [id number] PCP - General Internal Medicine 08/23/12 07/13/22 Palma Jj DO [address] [place] [address] PCP - General Family Medicine 07/14/22 Olesya Estrada LSW Home Health Nurse Licensed Practical 11/12/2211/27 Geraldine Whiteside, RN Technical Aid 01/09/23 03/05/23 documented as of this encounter
--- OUTSIDE RECORDS SUMMARY | 2025-04-12 10:20 | XMS_ITS | Encounter Summary ---
Author Organization [facility] Address [place] [address] Care Team Providers Care Making Department Preparer Name Role Phone Palma Jj DO Primary Care Provider + [phone] Reason for Visit * Reason Comments Medication Refill Encounter Details Date Type Department Care Team (Late st Contact Info) Description 02/14/2025 Refill [facility] [address] [place] [address] Palma Jj DO [address] [place] [phone] Medication Refill Social History Tobacco Use Types [...] PHQ-2 Total Score 0 11/09/2023 [facility] of Occupat ional Health - Occupational Stress [...] Author No 11/07/2022 8:01 AM EDT Tomi Slaughetr CCMA documented in this encounter Ordered Prescriptions [...] UMA MICHELLE to have help getting new [place] plan by end February 2023 General Yes [...] documented as of this encounter Care Teams Making Department Preparer Relationship Specialty Start Date End Date Palma Jj DO [address] [place] [address] PCP - General Family Medicine 07/14/22 documented as of this encounter
--- OUTSIDE RECORDS SUMMARY | 2025-04-12 10:20 | XMS_ITS | Encounter Summary ---
Author Organization [place] [address] Care Team Providers Care Mix Chemist Name Role Phone Palma Jj DO Primary Care Provider + [phone] Reason for Visit * Reason Onset Date Comments Prior Authorization 05/31/2024 [facility] for ri ght knee Encounter Details Date Type Department Care Team (Late st Contact Info) Description 05/31/[address] [address] Gilda Francis PA [address] [place] [id number] Prior Authorization ([facility] for right knee) Social [...] Date Recorded PHQ-2 Total Score 0 11/09/2023 [facility] [place] of Occupat ional Health - Occupational Stress [...] 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 Oh 12/03/2022. Additional information faxed to [facility] at [phone] * Telephone Encounter - Melania Cole Athletic [...] been submitted for the right knee through [facility] prescription coverage. If it [...] UMA MICHELLE to have help getting new [place] plan by end of February 2023 General [...] documented as of this encounter Care Teams Mix Chemist Relationship Specialty Start Date End Date Palma Jj DO [address] [place] [address] PCP - General Family Medicine 07/14/22 documented as of this encounter
--- OUTSIDE RECORDS SUMMARY | 2025-04-12 10:20 | XMS_ITS | Clinical Summary ---
Author Organization [facility] Address [facility] [place] [address] Care Team Providers Care Public Health Engineer Name Role Phone Unavailable Primary Care Provider [...] therelease of HIV test results or diagnoses. [id number] Social History Tobacco Use Types Packs/Day Years Used Date Smoking Tobacco: Never Assessed Comments Unknown Sex and Gender Information Value Date Recorded Sex Assigned at Not on file Legal Sex Female 4:12 PM EST Gender Identity Not on file Sexual Orientation Not on file Plan of Treatment Not on file
--- OUTSIDE RECORDS SUMMARY | 2025-04-12 10:20 | XMS_ITS | Clinical Summary ---
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 famotidine 73004782395 Nancy Albarran VITAMIN D (ERGOCALCIFEROL ) 96663 UNIT CAPS TAKE 1 CAPSULE BY MOUTH ONCE A WEEK ergocalciferol (vitamin d2) 51584493140 Nancy Albarran LISINOPRIL 20 MG TABS lisinopril 20988309948 Nancy Albarran TIZANIDINE HCL 4 MG TABS TAKE 1 TABLET BY MOUTH EVERY DAY AT NIGHT NEEDED tizanidine 93887372213 Nancy Albarran ATORVASTATIN CALCIUM 10 MG TABS TAKE 1 TABLET BY MOUTH EVERY DAY atorvastatin 74870283093 Nancy Albarran CELECOXIB 200 MG CAPS TAKE 1 CAPSULE BY MOUTH 2 TIMES DAILY FOR 30 DAYS. celecoxib 62589549149 Nancy Albarran FLEXERIL 10 MG TABS 1 po tid prn spasm CYCLOBENZAPRINE HCL 60291865767 Elza Bautista MD VICODIN 5-500 MG TABS (HYDROCODONE-AC ETAMINOPHEN) 1 po qid prn pain VICODIN 5-500 MG TABS (HYDROCODONE-ACETA MINOPHEN) Elza Bautista MD VICODIN ES 7.5-300 MG ORAL TABLET 1 po qid prn pain HYDROCODONE-ACETAM INOPHEN 30545791880 Elza Bautista MD VICODIN ES 7.5-300 MG ORAL TABLET 1 po qid prn pain HYDROCODONE-ACETAM INOPHEN 74493224410 Elza Bautista MD HIBICLENS 4 % EXTERNAL LIQUID Wash the entire back the night prior to the surgery CHLORHEXIDINE GLUCONATE 35183123212 Elza Bautista MD HIBICLEMARITA 4 % EXTERNAL LIQUID Wash the entire back the night prior to the surgery CHLORHEXIDINE GLUCONATE 27156588676 Elza Bautista MD TYLENOL 8 HOUR 650 MG CR-TABS 2 po q 8 hours prn pain Non-Manuel ACETAMINOPHEN 65452590921 Elza Bautista MD Medications Administered No information [...]
--- OUTSIDE RECORDS SUMMARY | 2025-04-12 10:21 | XMS_ITS | Continuity of Care Document ---
Author Organization [facility] [facility] Address [address] [place] [address] Phone Care Team Providers Care Production Leader Name Role Phone Palma Jj DO Primary Care Provider + [phone] Encounters Date Type Department Care Team Description 02/16/2025 Orders Only [place] [address] [place], [place] [address] Julianna Lea MA 02/14/2025 Refill [place] [address] [place] [address] Palma Jj, DO Medication Refill 08/19/2024 Telephone [place] [address] [place] [phone] Melania Cole, Line Dancer Medication Management (Gabapentin) 07/12/2024 Refill [facility] [place] [address] Palma Jj, DO Medication Refill 07/11/2024 Refill [place] [address] [place] [address] Palma Jj, DO Medication Refill 05/31/2024 Telephone [place] [address] [place] [phone] Gilda Francis PA Prior Authorization (visco for right knee) 05/31/2024 9:15 AM EST Office Visit [facility] [address] [facility] [address] Gilda Francsi PA Intervertebral disc disorder with radiculopathy of lumbosacral region (Primary Dx); Osteoporosis, unspecified osteoporosis type, unspecified pathological fracture presence; Spinal stenosis of lumbar region, unspecified whether neurogenic claudication present; Neuroforaminal stenosis of lumbar spine; Lumbar radiculopathy; Spondylosis of lumbosacral region without myelopathy or radiculopathy; Failed back syndrome of lumbar spine; Myofascial pain; Chronic pain syndrome 03/28/2024 Refill [place] [address] [place] [address] Palma Jj, DO Medication Refill 02/15/2024 8:00 AM EDT Office Visit [facility] [address] [facility] [address] Gilda Francis PA Cervicalgia (Primary Dx); Intervertebral [...] of right knee 01/14/2024 Orders Only [place] [address] [place] [phone] Palma Jj, DO Age-related osteoporosis without current pathological fracture (Primary Dx) 01/14/2024 Telephone [place] [address] [place] [address] Palma Jj, DO Medication Management ([facility] called on patient's behalf- requesting med change) 12/22/2023 Telephone SEP [address] [place] [address] Palma Jj, DO Other (Return call) 12/10/[address] [place] [address] Palma Jj, DO Medication Refill 11/27/[address] [place] [address] Palma Jj, DO Results (Results given) 11/20/[address] [place] [address] Palma Jj, DO Results (Lab: Vit D, CBC, Lipid, BMP, NT ProBNP) 11/11/2023 Orders Only [address] [place] [address] Palma Jj, DO Hypercholesterolemia 11/11/2023 9:00 AM EDT Office Visit [facility] [address] [place] [address] Gilda Francis PA Cervicalgia (Primary Dx); Intervertebral [...] pain 11/09/2023 10:40 AM EDT Office Visit [address] [place] [address] Palma Jj, DO Medicare annual wellness visit, subsequent (Primary Dx); Screening for diabetes mellitus; Screening for hyperlipidemia; Screening for osteoporosis; Postmenopausal; Thyroid cyst; Vitamin D deficiency; Bilateral carotid artery stenosis; Chronic diastolic (congestive) heart failure (HCC); Essential hypertension; Chronic diastolic (congestive) heart failure (HCC) 11/07/[address] [place] [address] Palma Jj, DO Medication Refill 11/03/[address] [place] [address] Palma Jj, DO Referral (Podiatry referral) 09/24/2023 Orders Only [address] [place] [address] Julianna Lea MA Spinal stenosis of lumbar region, unspecified whether neurogenic claudication present; DDD (degenerative disc disease), lumbar; Osteoporosis, unspecified osteoporosis type, unspecified pathological fracture presence; Neuroforaminal stenosis of lumbar spine; Lumbar pain; Right sided sciatica 09/14/2023 11:00 AM EDT Office Visit [facility] [place] [address] [place] [address] Rachael Steven DPM Acquired clubfoot, right foot (Primary Dx); Right foot pain; Corns and callosities; Punctate porokeratosis; Left foot pain 09/09/[address] [place] [address] Palma Jj, DO Medication Management (True Metrix Meter) 08/28/2023 Orders Only [address] [place] [address] Julianna Lea MA Essential hypertension 08/12/2023 1:05 PM EDT - 08/12/2023 11:59 PM EDT Hospital Encounter [facility] [address] [place] [address] Cervicalgia Discharge Disposition: Home or Self Care 08/06/2023 8:40 AM EDT Office Visit [address] [place] [address] Palma Jj, DO Primary osteoarthritis of right foot (Primary Dx); Chronic foot pain, right; COVID-19 vaccine administered; Bilateral carotid artery stenosis 07/28/2023 9:45 AM EDT Office Visit [facility] [address] [facility], [place] [address] Chanel Acevedo APRN Failed back syndrome of lumbar spine (Primary Dx); Intervertebral disc disorder with radiculopathy of lumbosacral region; Cervicalgia; Chronic pain syndrome; Spondylosis of lumbosacral region without myelopathy or radiculopathy 07/23/2023 10:00 AM EDT - 07/23/2023 11:59 PM EDT Hospital Encounter [facility] [place] [place] [address] Palma Jj, DO PVD (peripheral vascular disease); Bilateral carotid artery stenosis Discharge Disposition: Home or Self Care 07/15/2023 Telephone [place] [address] [place] [address] Palma Jj, DO Other (Daughter requesting call back) 07/15/2023 10:40 AM EST Office Visit [place] [address] [place] [address] Palma Jj, Cellulitis of right foot (Primary Dx); Exudative age-related macular degeneration of left eye, unspecified stage (HCC); Chronic diastolic (congestive) heart failure (HCC); PVD (peripheral vascular disease); Bilateral carotid artery stenosis 07/07/2023 Telephone [place] [place] [address] [place] [address] Palma Jj, DO Results (Results given) 07/07/2023 Telephone [place] [place] [address] [place] [address] Palma Jj, DO Results 07/06/2023 1:51 PM EST - 07/06/2023 11:59 PM EST Hospital Encounter [facility] [address] [place], [place] [address] Acute foot pain, right Discharge Disposition: Home or Self Care 07/06/2023 1:00 PM EST Office Visit [place] [address] [place] [phone] Palma Jj, DO Acute foot pain, right (Primary Dx); Age related osteoporosis, unspecified pathological fracture presence; Essential hypertension; Spinal stenosis of lumbar region, unspecified whether neurogenic claudication present; DDD (degenerative disc disease), lumbar; Osteoporosis, unspecified osteoporosis type, unspecified pathological fracture presence; Neuroforaminal stenosis of lumbar spine; Lumbar pain; Right sided sciatica; Hypercholesterolemia; Vitamin D deficiency; GERD without esophagitis 07/06/2023 Telephone [place] [address] [place] [address] Palma Jj, DO Appointment Needed (Hurt foot x 1 day ago and cannot put weight on it or walk on it) 06/30/2023 Telephone [place] [address] [place] [address] Palma Jj, Medication Refill ( Disp [...] Office Visit [facility] [address] [place] [address] Clay Ness MD Failed back syndrome of lumbar spine (Primary Dx); Intervertebral disc disorder with radiculopathy of lumbosacral region; Cervicalgia; Chronic pain syndrome; Spondylosis of lumbosacral region without myelopathy or radiculopathy 05/28/2023 Refill [facility] [address] [place] [address] Miky Webb MD Medication Refill 05/25/[address] [address] Miky Webb MD Medication Refill 05/25/2023 [facility] [address] [place] [address] Miky Webb MD Medication Refill 05/25/2023 Refill [place] [address] [place] [address] Mann Irene MD Medication Refill 05/25/2023 Refill [place] [place] [address] [place] [address] Palma Jj, DO Medication Refill 05/25/2023 Orders Only [place] [place] [address] [place] [address] Palma Jj, DO 05/25/2023 Telephone [place] [address] [place] [address] Palma Jj, DO Other (Discuss Medication List) 05/01/[address] [phone] Miky Webb MD 05/01/2023 [facility]ill [facility] [address] [address] Miky Webb MD Medication Refill 05/01/2023 Telephone [facility] [place] [address] [place] [address] Rahul Arriaga MA New Patient 05/01/2023 10:45 AM EST [facility] [address] [place] [address] Miky Webb MD Spinal stenosis of lumbar region, unspecified whether neurogenic claudication present (Primary Dx); DDD (degenerative disc disease), lumbar; Osteoporosis, unspecified osteoporosis type, unspecified pathological fracture presence; Neuroforaminal stenosis of lumbar spine; Lumbar pain; Right sided sciatica; L5 S1 Protrusion of intervertebral disc of lumbosacral region; Vitamin D deficiency; Sciatica of right side 04/28/[address] [place] [address] Palma Jj, DO Medication Refill 04/28/[address] [place] [address] Palma Jj, DO Medication Refill 04/16/[address] [place] [address] Palma Jj, DO Medication Refill 04/16/[address] [place] [address] Mann Irene MD Medication Refill 04/15/2023 9:34 AM EST - 04/15/2023 11:59 PM EST Hospital Encounter [facility] [place] [address] Palma Jj, Recurrent syncope Discharge Disposition: Home or Self Care 04/10/2023 Orders Only [address] [place] [address] Palma Jj, Age-related osteoporosis without current pathological fracture (Primary Dx) 04/06/2023 10:40 AM EST Office Visit [address] [place] [address] Palma Jj, Recurrent syncope (Primary Dx); Essential hypertension 03/26/2023 Orders Only [address] [place] [address] Palma Jj, Spinal stenosis of lumbar region without neurogenic claudication (Primary Dx) 03/23/[address] [place] [address] Palma Jj DO Referral ([facility]) 03/20/2023 Refill [facility] [place] [address] [place] [address] Dylon Corrales MD Medication Refill 03/20/2023 10:15 AM EST Office Visit [facility] [place] [address] [place] [address] Dylon Corrales MD Spinal stenosis of lumbar region, unspecified whether neurogenic claudication present (Primary Dx); DDD (degenerative disc disease), lumbar; Neuroforaminal stenosis of lumbar spine; Osteoporosis, unspecified osteoporosis type, unspecified pathological fracture presence 03/17/2023 9:00 AM EST Telemedicine [facility] [address] [place] [address] Ramandeep Noriega APRN URI, acute (Primary Dx) 03/06/2023 Patient Outreach [place] [place] [address] [place] [address] Geraldine Whiteside, UMA CM- Longitudinal Continued; CM- Telephonic Outreach; CM-Resource Coordination 02/27/2023 10:30 AM EDT Telemedicine [place] [place] [address] [place] [address] Geraldine Whiteside, RN Encounter for support and [...] 12:30 PM EDT Office Visit [facility] [address] [place] [phone] Lele Aquino MD Abnormal auditory perception, bilateral (Primary Dx); Tinnitus of both ears; Mixed conductive and sensorineural hearing loss, unilateral, 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; Sensorineural hearing loss, unilateral, right ear, with restricted hearing on the contralateral side; Ear fullness, bilateral 02/23/2023 2:45 PM EDT [facility] [address] [place] [address] Jason Wright DO Spinal stenosis of lumbar region, unspecified whether neurogenic claudication present (Primary Dx); Neuroforaminal stenosis of lumbar spine; Lumbar radiculopathy 02/16/2023 Telephone [place] [address] [place] [address] Palma Jj DO Referral (ENT) 02/13/2023 9:00 AM EDT [facility] [address] [place] [address] [address] [place] [address] Dylon Corrales MD Spinal stenosis of lumbar region, unspecified whether neurogenic claudication present (Primary Dx); Neuroforaminal stenosis of lumbar spine; Lumbar pain 01/28/2023 Orders Only [place] [address] [place] [address] Palma Jj DO 01/28/2023 9:00 AM EDT Office Visit [place] [address] [place] [address] Geraldine Whiteside RN Encounter [...] pollen 01/27/2023 Telephone [facility] [place] [address] Miky Webb MD Prior Authorization (Prolia ) 01/26/2023 Patient Outreach [place] [address] [place] [address] Geraldine Whiteside RN CM- Longitudinal Continued; CM- Telephonic Outreach; CM-Resource Coordination 01/26/2023 Telephone [place] [address] [place] [address] Palma Jj DO Appointment Needed (With Geraldine Whiteside); Medication Management (Questions about multiple meds. ) 01/23/2023 Orders Only [facility] [place] [address] Eileen London, PharmD 01/23/2023 10:45 AM EDT [facility]illary [facility] [address] [facility] [address] [place] [address] Miky Webb MD Thoracic spine pain 01/23/2023 10:30 AM EDT Office Visit [facility] [address] [place] [address] Miky Webb MD Thoracic spine pain (Primary Dx); Age related osteoporosis, unspecified pathological fracture presence; Vitamin D deficiency; Acute low back pain, unspecified back pain laterality, unspecified whether sciatica present; L5 S1 Protrusion of intervertebral disc of lumbosacral region 01/16/2023 Orders Only [address] [place] [address] Palma Jj DO GERD without esophagitis (Primary Dx) 01/16/2023 Patient Outreach [address] [place] [address] Geraldine Whiteside RN CM- Longitudinal Continued; CM- Telephonic Outreach; CM-Resource Coordination 01/09/2023 Orders Only [facility] [address] [place] [address] Palma Jj DO 01/09/2023 8:30 AM EDT Office Visit [facility] [address] [place] [address] Geraldine Whiteside, RN Enrolled in chronic care management (Primary Dx) 01/07/2023 Telephone [facility] [address] [place] [address] Geraldine Whiteside, RN Other (returning office call ) 01/07/2023 Patient Outreach [address] [place] [address] Geraldine Whiteside, development system efficiency manager; CM- Telephonic Outreach; CM-Resource Coordination 12/22/[address] [place] [address] Mann Irene MD Medication Refill 12/22/[address] [place] [address] Palma Jj, DO Medication Refill 12/19/2022 Orders Only [address] [place] [address] Palma Jj, DO Age-related osteoporosis without current pathological fracture (Primary Dx) 12/19/2022 Travel 12/19/2022 9:34 AM EDT - 12/19/2022 11:59 PM EDT [facility] [address] [place] [address] [place] [address] Palma Jj, DO Screening for osteoporosis; Postmenopausal Discharge Disposition: Home or Self Care 12/11/2022 4:00 PM EDT Office Visit [address] [place] [address] Palma Jj, DO Poison sumac (Primary Dx) 12/11/[address] [place] [address] Palma Jj, DO Other (Poison Sumac) 12/05/[address] [address] Bruce Oh MD Patient Question (pt needs list of back drs that she did not receive at last appointment) 12/03/2022 10:45 AM EDT Office Visit [address] [address] Bruce Oh MD History of right hip replacement (Primary Dx); Right knee pain, unspecified chronicity; Primary osteoarthritis of right knee 11/12/2022 Patient Outreach [facility] Care Managment [facility] [address] Appointment Location [place] [address] Olesya Estrada LSW CM- Telephonic Outreach; CM-SDOH; Care Management - Chart Review 11/07/2022 Patient Outreach [facility] [address] [place] [address] Nabil Amaro, HAILEY, COS Referral 11/07/2022 9:00 AM EDT Office Visit [address] [place] [address] MieshaGeraldine roberts, RN Encounter for support and coordination of transition of care (Primary Dx) 11/07/2022 Patient Outreach [facility] [address] [place] [address] Nabil Amaro, HAILEY, COS Referral 11/07/2022 8:20 AM EDT Office Visit [address] [place] [address] Palma Jj, DO Medicare annual wellness visit, subsequent (Primary Dx); Screening for osteoporosis; Postmenopausal; Burning with urination; Advanced care planning/counseling discussion; PVD (peripheral vascular disease); Essential hypertension; Bilateral carotid artery stenosis; Thyroid cyst 11/03/2022 11:00 AM EDT Ancillary Procedure [facility] [address] [address] Bruce Oh MD History of right hip replacement; Right knee pain, unspecified chronicity 10/28/2022 Telephone SEP [address] [place] [address] Palma Jj DO Information Only (Mri ) 10/28/2022 Telephone [facility] [address] rumr: turn off the lights[address] [address] Bruce Oh MD Knee Pain 10/28/2022 Refill SEP [address] [place] [address] Mann Irene MD Medication Refill 10/27/2022 Refill SEP [address] [place] [address] Mann Irene MD Medication Refill 10/23/[address] [facility] [place] [address] [place] [address] Bruce Oh MD Knee Pain 10/22/2022 2:30 PM EDT Ancillary Procedure [address] [address] Bruce Oh MD Right knee pain, unspecified chronicity 10/22/2022 2:15 PM EDT Ancillary Procedure [address] [address] Bruce Oh MD History of right hip replacement 10/22/2022 2:00 PM EDT [place] [address] Bruce Oh MD History of right hip replacement 10/22/2022 1:45 PM EDT Office Visit [address] [address] Bruce Oh MD History of right hip replacement (Primary Dx); Right knee pain, unspecified chronicity 10/04/[address] [place] [address] Palma Jj, Medication Refill 08/01/[address] [place] [address] Mann Irene MD Medication Refill 07/30/2022 Orders Only [address] [place] [address] Palma Jj DO Acute cystitis without hematuria (Primary Dx) 07/28/2022 Travel 07/28/2022 11:20 AM EDT - 07/28/2022 11:59 PM EDT Hospital Encounter Mobile Mammography Other Location View online schedule for mobile van location [phone] Mann rIene MD Encounter for screening mammogram for malignant neoplasm of breast Discharge Disposition: Home or Self Care 07/28/2022 8:40 AM EDT Office Visit [address] [place] [address] Palma Jj, DO Essential hypertension (Primary Dx); Dysuria 07/18/[address] [place] [address] Mann Irene MD Medication Refill 07/14/2022 9:40 AM EST Office Visit [address] [place] [address] Palma Jj, DO Essential hypertension (Primary Dx); Exudative age-related macular degeneration of left eye, unspecified stage (HCC); Thyroid cyst 07/11/[address] [place] [address] Palma Jj, DO Other (question about appt today ) 07/10/[address] [place] [address] Mann Irene MD Medication Refill 07/10/2022 Orders Only [address] [place] [address] Palma Jj, DO Essential hypertension (Primary Dx) 07/09/2022 1:40 PM EST Office Visit [address] [place] [address] Palma Jj, DO Hypertensive urgency (Primary Dx) 05/01/[address] [place] [address] Mann Irene MD Medication Refill 04/25/[address] [place] [address] Mann Irene MD Symptom Call (Light headed, dizzy, high BP) 04/24/2022 Telephone [facility] [employer] [address] [address] Fredi Nick MD Results (biotel) 04/22/2022 Refill [place] [address] [place] [address] Mann Irene MD Medication Refill 04/19/2022 Refill [place] [place] [address] [place] [address] Mann Irene MD Medication Refill 04/17/2022 10:45 AM EST Office Visit [place] [address] [place] [address] Geraldine Whiteside RN Hospital discharge follow-up (Primary Dx) 04/17/2022 10:20 AM EST Office Visit [facility] [place] [address] 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 [address] Fredi Nick MD Syncope, unspecified syncope type Discharge Disposition: Home or Self Care 04/02/2022 Patient Outreach [facility] [address] [place] [id number] Nerissa Vargas RN Hospital Follow Up 04/01/2022 Orders Only [facility] [place] [id number] Fredi Nick MD Syncope, unspecified syncope type (Primary Dx) 03/28/2022 12:15 PM EST - 04/01/2022 1:01 PM EST Hospital Encounter [facility] [place] [id number] Marivel King DO Cho, Soung H, MD Syncope, unspecified syncope type (Primary Dx) Discharge Disposition: Home or Self Care 03/29/2022 Travel 03/27/[address] [place] [address] Mann Irene MD Appointment Needed 02/17/2022 Travel 02/17/2022 9:15 AM EDT - 02/17/2022 11:59 PM EDT Hospital Encounter [facility] [address] 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; Chronic fatigue 01/24/[address] [place] [address] Mann Irene MD Appointment Needed (Passed out once yesterday ) 10/31/2021 Travel 10/31/2021 11:35 AM EDT - 10/31/2021 11:59 PM EDT Hospital Encounter [facility] [address] [place] [address] Mann Irene MD PVD (peripheral vascular disease); Bruit Discharge Disposition: Home or Self Care 10/31/2021 11:35 AM EDT - 10/31/2021 11:59 PM EDT Hospital Encounter [facility] [address] [place] [address] Mann Irene MD Claudication Discharge Disposition: Home or Self Care 10/30/[address] [place] [address] Mann Irene MD Paperwork/forms (Handicap form ) 10/20/[address] [place] [address] Mann Irene MD Medication Refill 09/24/2021 8:20 AM EDT Office Visit [address] [place] [address] Mann Irene MD Hypercholesterolemia (Primary Dx); Claudication; Osteoarthritis, unspecified osteoarthritis type, unspecified site; Dysphagia, unspecified type; PVD (peripheral vascular disease); Bruit; Chronic fatigue; Vitamin D deficiency; Acute bacterial sinusitis 09/17/2021 Orders Only [address] [place] [address] Carl Irene MD Diarrhea, unspecified type (Primary Dx) 09/17/[address] [place] [address] Mann Irene MD Medication Reaction 09/16/2021 11:20 AM EDT Office Visit [address] [place] [address] Carl Irene MD Acute bacterial sinusitis (Primary Dx) 09/15/[address] [place] [address] Mann Irene MD Medication Refill 09/05/[address] [place] [phone] Mann Irene MD Medication Refill (allergy relief) 07/22/[address] [place] [address] Mann Irene MD Medication Refill 07/16/2021 Travel 07/16/2021 11:23 AM EST - 07/16/2021 11:59 PM EST Hospital Encounter Mobile Mammography Other Location View online schedule for mobile van location [phone] Mann Irene MD Encounter for screening mammogram for malignant neoplasm of breast Discharge Disposition: Home or Self Care 03/18/2021 Refill SEP [address] [place] [address] Mann Irene MD Medication Refill (atorvastatin (LIPITOR) 10 mg Oral Cfrpkm41 Utrtes3002/05/2021) 03/18/[address] [place] [address] Mann Irene MD Medication Management (meloxicam (MOBIC) 15 mg Oral Tszesf01 Zhypqd33 ) 02/08/2021 Refill SEP [address] [place] [address] Mann Irene MD Medication Refill 02/05/2021 Travel 02/05/2021 9:00 AM EDT Office Visit [address] [place] [address] Mann Irene MD Annual physical exam (Primary Dx); Seasonal allergic rhinitis due to pollen; Needs flu shot; Hypercholesterolemia; Osteoarthritis, unspecified osteoarthritis type, unspecified site 12/06/2020 Patient Outreach [facility] [address] [place], [place] [id number] Mann Irene MD Central Patient Navigator Outreach (AWV) 09/26/2020 Refill SEP [address] [place] [phone] Mann Irene MD Medication Refill (multiple meds) 05/05/2020 Refill SEP [address] [place] [address] Mann Irene MD Medication Refill 03/27/2020 Travel 03/27/[address] [place] [address] Mann Irene MD Orders (covid ) 03/23/2020 Travel 03/23/2020 8:00 AM EST Clinical Support [address] [place] [address] Jill Beck Malaise and fatigue; Vitamin D deficiency; Recurrent UTI (urinary tract infection) 03/22/2020 4:30 PM EST Office Visit [address] [place] [address] [place], Ramandeep, SPECIMEN PREPARATION ASSISTANT Malaise and fatigue (Primary Dx); Vitamin D deficiency; Recurrent UTI (urinary tract infection) 03/22/2020 Travel 03/07/[address] [place] [phone] Mann Irene MD Medication Refill 02/06/[address] [place] [address] Mann Irene MD Medication Refill 01/25/2020 Travel 01/25/2020 2:00 PM EDT Office Visit [facility] Urology NPTFTT [address] [place] [address] Amari Wheeler MD Asymptomatic microscopic hematuria (Primary Dx) 01/12/2020 8:00 AM EDT Clinical Support [facility] [place] [address] [place] [phone] Jill Beck Hypercholesterolemia 01/11/2020 Travel 01/04/[address] [place] [address] Mann Irene MD Appointment Needed (Labs and Flu Shot) 01/02/2020 Travel 01/02/2020 3:00 PM EDT - 01/02/2020 4:15 PM EDT [facility] [place] [address] Amari Wheeler MD CYSTOSCOPY, URETEROSCOPY, LASER LITHOTRIPSY, RETROGRADE PYELOGRAM, STENT INSERTION 01/02/2020 2:45 PM EDT [facility] [place] [address] 02 London Cheng MD Powell TanyaPATRICIA 01/02/2020 12:32 PM EDT - 01/02/2020 5:15 PM EDT Hospital Encounter [facility] SAME DAY SURGERY [facility] [place] [address] Amari Wheeler MD Nephrolithiasis; Nephrolithiasis Discharge Disposition: Home or Self Care 12/29/2019 Travel 12/29/2019 10:05 AM EDT - 12/29/2019 11:59 PM EDT Hospital Encounter [facility] [address] [place] [address] Covid19, [facility] Pre-op testing; Encounter for laboratory testing for COVID-19 virus Discharge Disposition: Home or Self Care 12/20/2019 Travel 12/20/2019 Refill [facility]PT[facility] [address] [place] [address] Amari Wheeler MD Medication Refill 12/14/2019 Travel 12/14/2019 2:00 PM EDT Procedure visit [facility] NPT[facility] [address] [place] [address] Amari Wheeler MD Nephrolithiasis (Primary Dx) 12/09/2019 Refill SEP [facility] [address] [place] [address] Mann Irene MD Medication Refill 12/08/2019 9:00 AM EDT Office Visit SEP [place] [address] Mann Irene MD Annual physical exam (Primary Dx); Hypercholesterolemia; Other microscopic hematuria; Claudication 12/05/2019 11:05 AM EDT - 12/05/2019 11:59 PM EDT Hospital Encounter [facility] [place] [address] Urine culture positive; Hypercholesterolemia Discharge Disposition: Home or Self Care 12/05/2019 Travel 11/28/2019 Travel 11/28/2019 1:00 PM EDT - 11/28/2019 2:15 PM EDT Surgery [facility] [address] [place] [address] Amari Wheeler MD CYSTOSCOPY STENT INSERTION OR EXCHANGE 11/28/2019 12:30 PM EDT Anesthesia Event [facility] [address] [place] [address] Raghav Nolan MD DavisonAddieErma Villalpando APRN 11/28/2019 10:28 AM EDT - 11/28/2019 3:39 PM EDT Hospital Encounter FTT SAME DAY SURGERY [address] [place], [place] [id number] Amari Wheeler MD Hypercholesterolemia (Primary Dx); Urine culture positive Discharge Disposition: Home or Self Care 11/25/2019 Travel 11/24/2019 10:20 AM EDT - 11/24/2019 11:59 PM EDT Hospital Encounter [facility] [address] [place] [address] Covid19, [facility] Pre-op testing; Encounter for laboratory testing for COVID-19 virus Discharge Disposition: Home or Self Care 11/23/2019 Orders Only [facility] NPT[facility] [address] [place] [phone] Amari Wheeler MD Urinary tract infection without hematuria, site unspecified (Primary Dx) 11/22/2019 Telephone [facility] [address] [place] [phone] Amari Wheeelr MD Other 11/22/2019 Orders Only [facility] [address] [place] [phone] Amari Wheeler MD 11/22/2019 Travel 11/21/2019 Orders Only [facility]PT[facility] [address] [place] [address] Cheyanne Forman MA 11/18/2019 Travel 11/17/2019 Telephone [facility] [address] [address] Oralia Krueger MA Other 11/16/2019 Travel 11/16/2019 11:40 AM EDT Office Visit [facility] NPT[facility] [address] [place] [address] Amari Wheeler MD Urine culture positive (Primary Dx) 11/07/2019 Patient Outreach [facility] [address] [place] [address] Wanda Gilliland Care Management - Chart Review 11/02/2019 Patient Outreach [facility] [address] [place] [address] Nerissa Vargas RN ED Follow-Up Call; ED Follow-Up Call 10/31/2019 - 10/31/2019 11:32 PM EDT Emergency [facility] Emergency [address] [facility] [place] [address] Discharge Disposition: ED Dismiss - Never Arrived 10/31/2019 3:00 PM EDT Telemedicine [facility] Urology [address] [phone] Amari Wheeler MD Other microscopic hematuria (Primary Dx) 10/30/2019 11:35 PM EDT - 10/31/2019 3:23 AM EDT Emergency [facility] Emergency [address] [facility] [place] [address] Jorge Luis Sharif MD Acute cystitis with hematuria (Primary Dx); Gross hematuria Discharge Disposition: Home or Self Care 10/30/2019 Travel 10/26/2019 Travel 10/26/2019 10:30 AM EDT - 10/26/2019 11:30 AM EDT Surgery [facility] [place] [address] Amari Wheeler MD CYSTOSCOPY TRANSURETHRAL RESECTION BLADDER TUMOR - FULGURATION/EVACUATION OF CLOT 10/26/2019 10:30 AM EDT Anesthesia Event [facility] [place] [address] Michelle Tucker MD [place], Jeanne, APRN 10/26/2019 8:44 AM EDT - 10/26/2019 11:56 AM EDT Hospital Encounter [facility] [place], [place] [id number] Amari Wheeler MD Hematuria; Hematuria, unspecified type Discharge Disposition: Home or Self Care 10/21/2019 9:51 AM EDT - 10/21/2019 11:59 PM EDT Hospital Encounter [facility] [address] [place] [address] Covid19, [facility] Pre-op testing; Encounter for laboratory testing for COVID-19 virus Discharge Disposition: Home or Self Care 10/20/2019 Travel 10/19/2019 Telephone [facility] [place] [address] [address] Oralia Krueger MA Other 10/19/2019 Telephone [facility] [address] [place] [address] Mann Irene MD Other (needing appt ) 10/12/2019 Telephone [facility] [place] [address] [address] Oralia Krueger MA Other 10/11/2019 Telephone [facility] [place] [address] [address] Oralia Krueger MA Other 10/10/2019 12:05 PM EDT - 10/10/2019 11:59 PM EDT Hospital Encounter [facility] [address] [place] [address] Hematuria, unspecified type Discharge Disposition: Home or Self Care 10/10/2019 Travel 10/10/2019 11:40 AM EDT Procedure visit [facility] [place] [address] [address] Amari Wheeler MD Hematuria, unspecified type (Primary Dx) 09/23/2019 Travel 09/23/2019 Patient Outreach [facility] [address] [place] [address] Mann Irene MD Central Patient Navigator Outreach 09/22/2019 Travel 08/16/2019 Refill [facility] [address] [place], [place] [address] Mann Irene MD Medication Refill 08/11/2019 Travel 08/10/2019 Telephone [facility] Urology [place] [address] [place] [address] Oralia Krueger MA Other 08/09/2019 Orders Only [facility] [place] [address] [place] [address] Elida Pavon CCMA Seasonal allergic rhinitis due to pollen 08/09/2019 Telephone [place] [address] [place] [address] Mann Irene MD Medication Refill 08/04/2019 Travel 07/29/2019 Travel 07/25/2019 Orders Only [facility] Urology NPTFTT [address] [place] [address] Shaniqua Bustillo MA Urinary tract infection without hematuria, site unspecified (Primary Dx) 07/25/2019 Telephone [facility] Urology NPT[facility]TT [address] [place] [address] Amari Wheeler MD Other 07/25/2019 Telephone [place] [address] [place] [address] Mann Irene MD Urinary Tract Infection 07/22/2019 Travel 07/22/2019 8:56 AM EDT - 07/22/2019 11:59 PM EDT Hospital Encounter [facility] [address] [place] [address] Amari Wheeler MD Recurrent UTI; Feeling of incomplete bladder emptying Discharge Disposition: Home or Self Care 07/20/2019 Travel 07/20/2019 11:30 AM EDT Office Visit [facility] Urology NPTFTT [address] [place] [address] Amari Wheeler MD Recurrent UTI (Primary Dx); Feeling of incomplete bladder emptying 07/04/2019 Travel 07/04/[address] [place] [address] Mann Irene MD Referral 05/20/[address] [place] [address] Mann Irene MD Medication Refill 04/20/[address] [place] [address] Mann Irene MD Medication Management (levoFLOXacin (LEVAQUIN) 750 mg Oral Tablet7 Sdk297) 04/18/[address] [place] [address] Mann Irene MD Results (returning call for results ) 04/17/2019 Orders Only [address] [place] [address] [place], SPECIMEN PREPARATION ASSISTANT UTI (urinary tract infection), uncomplicated (Primary Dx) 04/15/2019 9:00 AM EST Office Visit [address] [place] [address] Ramandeep Noriega, SPECIMEN PREPARATION ASSISTANT Recurrent UTI (urinary tract infection) (Primary Dx); Dysuria 04/04/[address] [place] [address] Mann Irene MD Medication Refill 03/16/[address] [place] [address] Mann Irene MD Medication Refill 03/14/2019 9:30 AM EST - 03/14/2019 9:45 AM EST Surgery [facility] [address] [place] [address] Conor Ramirez MD CATARACT EXTRACTION WITH PHACOEMULSIFICATION AND INTRAOCULAR LENS 03/14/2019 9:30 AM EST Anesthesia Event [facility] [address] [place] [address] Viola Parrish MD Oliver, Richard G MD 03/14/2019 7:48 AM EST - 03/14/2019 10:20 AM EST Hospital Encounter [facility] [place] [address] Conor Ramirez MD Discharge Disposition: Home or Self Care 02/28/2019 Travel 02/28/2019 9:30 AM EDT - 02/28/2019 9:45 AM EDT Surgery [facility] [place] [address] Conor Ramirez MD CATARACT EXTRACTION WITH PHACOEMULSIFICATION AND INTRAOCULAR LENS 02/28/2019 9:37 AM EDT Anesthesia Event [facility] [place] [address] Lexi Golden MD Oliver, Richard G, MD 02/28/2019 8:06 AM EDT - 02/28/2019 10:28 AM EDT Hospital Encounter [facility] [place] [address] Conor Ramirez MD Discharge Disposition: Home or Self Care 02/23/2019 Travel 02/21/2019 10:40 AM EDT Office Visit [facility] [address] [place] [address] Carl Irene MD Pre-op examination (Primary Dx); Age-related cataract of both eyes, unspecified age-related cataract type; Osteoarthritis, unspecified osteoarthritis type, unspecified site; Need for influenza vaccination; UTI (urinary tract infection), uncomplicated 02/11/2019 Orders Only [facility] [place] [facility] [address] [place] [address] Brittany Slaughter CCMA 02/10/2019 4:40 PM EDT Office Visit [facility] [place] [facility] [address] [place] [address] Ramandeep Noriega APRN UTI (urinary tract infection), uncomplicated (Primary Dx); Dysuria 02/10/2019 11:12 AM EDT - 02/10/2019 11:59 PM EDT Hospital Encounter [address] [address] Mann Irene MD Post-menopausal Discharge Disposition: Home or Self Care 02/09/2019 Patient Outreach [place] [address] [place] [address] Jr Jackson RN Osteoporosis (dexa) 01/27/2019 Patient Outreach [place] [address] [place] [address] Sofia Villegas, PharmD Medication Management 01/26/2019 Orders Only [place] [address] [place] [id number] Mann Irene MD Encounter for medication review (Primary Dx) 01/02/2019 Refill [place] [address] [place] [address] Mann Irene MD Medication Refill 12/31/2018 Patient Outreach [place] [address] [facility] [address] Mann Irene MD Osteoporosis (osteoporosis screening) 12/28/2018 9:29 AM EDT - 12/31/2018 9:30 AM EDT Hospital Encounter [facility] [address] [place] [address] [place] [id number] Bruce Oh MD Discharge Disposition: Usp Facility 12/28/2018 Travel 12/28/2018 2:45 PM EDT - 12/28/2018 4:00 PM EDT Surgery [facility] [place] [address] Bruce Oh MD ARTHROPLASTY, KNEE, TOTAL, OPEN 12/28/2018 2:15 PM EDT Anesthesia Event EDG [facility] [place] [address] Eduardo Interiano MD Powell, Jeanne, APRN 12/25/2018 Refill [place] [address] [place] [address] Mann Irene MD Medication Refill 12/16/2018 Orders Only [place] [address] [place] [address] Mann Irene MD Cataract of left eye, unspecified cataract type (Primary Dx); Cataract (lens) fragments in eye following cataract surgery; Cataract of right eye, unspecified cataract type 12/15/2018 Travel 12/15/2018 8:37 AM EDT - 12/15/2018 11:59 PM EDT Hospital Encounter [facility] PRE-ADMIT TESTING [facility] [address] [place], [place] [id number] Bruce Oh MD Anticoagulation adequate (Primary Dx) Discharge Disposition: Home or Self Care 12/06/2018 9:40 AM EDT Office Visit [address] [place] [address] Mann Irene MD Annual physical exam (Primary Dx); Claudication; Osteoarthritis, unspecified osteoarthritis type, unspecified site; Pre-op examination 11/19/2018 Refill [facility] [address] [place] [address] Mann Irene MD Medication Refill 10/18/2018 Refill SEP [address] [place] [address] Mann Irene MD Medication Refill 10/15/2018 8:34 AM EDT - 10/15/2018 11:59 PM EDT Hospital Encounter [facility] [address] [place] [address] Mann Irene MD Encounter for screening for malignant neoplasm of breast Discharge Disposition: Home or Self Care 09/14/2018 Refill SEP [address] [place] [address] Mann Irene MD Medication Refill 09/13/2018 Refill SEP [address] [place] [address] Mann Irene MD Medication Refill 09/10/2018 Telephone [facility]P [address] [place] [address] Mann Irene MD Referral 07/15/[address] [place] [address] Mann Irene MD Medication Refill 07/12/[address] [place] [address] Mann Irene MD Medication Refill 03/05/2018 2:40 PM EDT Office Visit [address] [place] [address] Ramandeep Noriega APRN Viral gastroenteritis (Primary Dx); Dizziness; Hypernatremia 03/02/[address] [place] [address] Mann Irene MD Medication Refill 01/23/[address] [place] [address] Mann Irene MD Medication Refill 12/11/2017 9:22 AM EDT - 12/11/2017 11:59 PM EDT Hospital Encounter [facility] [place] [phone] Mann Irene MD Claudication Discharge Disposition: Home or Self Care 11/17/[address] [place] [address] Mann Irene MD Medication Refill 10/13/2017 8:00 AM EDT Office Visit [address] [place] [address] Mann Irene MD Hypercholesterolemia (Primary Dx); Hypernatremia; Need for hepatitis C screening test; Screening for deficiency anemia; Claudication; Acute bronchitis, unspecified organism 09/29/[address] [place] [address] Mann Irene MD Medication Refill 09/14/2017 2:12 PM EDT - 09/14/2017 11:59 PM EDT Hospital Encounter Mobile Mammography Other Location View online schedule for mobile van location [phone] Mann Irene MD Encounter for screening mammogram for breast cancer Discharge Disposition: Home or Self Care 09/11/2017 10:50 AM EDT Office Visit [address] [place] [address] Mann Irene MD Well adult exam (Primary Dx); Encounter for screening mammogram for breast cancer; Osteoarthritis, unspecified osteoarthritis type, unspecified site; UTI (urinary tract infection), uncomplicated 08/31/[address] [place] [address] Mann Irene MD Medication Refill 07/18/[address] [place] [address] Mann Irene MD Medication Refill 04/25/[address] [place] [address] Mann Irene MD Medication Refill 01/06/[address] [place] [address] Mann Irene MD Medication Refill 12/01/[address] [place] [address] Mann Irene MD Medication Problem 11/28/[address] [place] [address] Mann Irene MD Medication Refill 11/23/[address] [place] [address] Mann Irene MD Medication Refill 10/01/2016 4:40 PM EDT Office Visit [address] [place] [address] Mark Rosas MD Sinusitis, unspecified chronicity, unspecified location (Primary Dx) 10/01/[address] [place] [address] Mann Irene MD Medication Refill 09/30/[address] [place] [address] Mann Irene MD Referral 03/11/2016 3:40 PM EDT Office Visit [address] [place] [address] Mann Irene MD Pneumonia of right lower lobe due to infectious organism (Primary Dx) 01/25/[address] [place] [address] Mann Irene MD Other (bloodwork) 01/23/2016 4:09 PM EDT - 01/23/2016 11:59 PM EDT Hospital Encounter [facility] PROC[facility] [place] [address] Annual physical exam; Screening for cholesterol level; Screening for thyroid disorder Discharge Disposition: Home or Self Care 01/23/2016 8:00 AM EDT Clinical Support [address] [place] [address] Brittany Slaughter CCMA Hypercholesterolemia (Primary Dx) 01/08/2016 4:00 PM EDT Office Visit [address] [place] [address] Oralia Hall PA-C Allergic rhinitis, seasonal (Primary Dx); Hyperlipidemia; Osteoarthritis, unspecified osteoarthritis type, unspecified site; Annual physical exam; Screening for cholesterol level; Screening for thyroid disorder 10/04/[address] [place] [address] Mann Irene MD Medication Refill 09/28/[address] [place] [address] Mann Irene MD Medication Refill 09/04/2015 11:40 AM EDT Office Visit [address] [place] [address] Latesha Cabral APRN Acute bacterial sinusitis (Primary Dx); Acute bronchitis, unspecified organism 09/03/[address] [place] [address] Mann Irene MD Other 08/29/[address] [place] [address] Mann Irene MD Referral 07/30/2015 11:50 AM EDT Office Visit [address] [place] [address] Mann Irene MD Fever, unspecified fever cause (Primary Dx); Acute gastroenteritis 07/30/[address] [place] [address] Mann Irene MD Illness 07/27/[address] [place] [address] Mann Irene MD Other ([facility] Referral) 05/14/[address] [place] [address] Mann Irene MD Medication Refill 03/12/2015 Orders Only [address] [place] [address] Stefania Oquendo MD Pain of toe of right foot (Primary Dx) 03/02/2015 8:57 PM EDT - 03/02/2015 11:59 PM EDT Hospital Encounter [facility] [place] [address] Acute idiopathic gout of right foot Discharge Disposition: Home or Self Care 03/02/2015 2:30 PM EDT Office Visit [address] [place] [address] Stefania Oquendo MD Menopausal symptoms (Primary Dx); Acute idiopathic gout of right foot; Psoriasis 01/18/[address] [place] [address] Mann Irene MD Medication Refill 12/22/[address] [place] [address] Mann Irene MD Medication Refill 11/27/[address] [place] [address] Mann Irene MD Medication Refill 10/04/2014 3:50 PM EDT Office Visit [address] [place] [address] Stefania Oquendo MD Bronchitis (Primary Dx) 09/01/2014 6:01 PM EDT - 09/01/2014 11:59 PM EDT Hospital Encounter [facility] [place] [address] Well adult exam Discharge Disposition: Home or Self Care 09/01/2014 8:20 AM EDT Office Visit [address] [place] [phone] Mann Irene MD Well adult exam (Primary Dx); Hand dermatitis; Hip joint replacement by other means; Hypercholesterolemia 08/10/[address] [place] [address] Mann Irene MD Medication Refill 08/09/[address] [place] [address] Mann Irene MD Medication Refill 07/10/2014 8:45 PM EST - 07/10/2014 11:59 PM EST Hospital Encounter [facility] [place] [address] Discharge Disposition: Home or Self Care 07/10/2014 Orders Only [facility] [address] [place] [address] [place] [address] Edil Mann MD 07/07/2014 Telephone [facility] [address] [place] [address] [place] [address] Edil Mann MD Reschedule 06/29/2014 Patient Outreach [address] [place] [phone] Sujatha Goldman RN Care Transition (follow up ) 06/02/2014 Telephone SEP [facility] [address] [facility] [address] [place] [address] Edil Mann MD Reschedule 06/02/2014 Telephone SEP [address] [place] [phone] Sujatha Goldman RN Care Transition (Follow up) 06/02/2014 Telephone SEP [address] [place] [address] Mann Irene MD Other 06/01/2014 Patient Outreach [address] [place] [phone] Sujatha Goldman RN Care Transition (Follow up call) 05/15/2014 Telephone SEP [address] [place] [address] Mann Irene MD Referral 05/10/2014 1:00 PM EST Office Visit [address] [place] [phone] Mark Rosas MD Viral illness (Primary Dx); Elevated BP 05/10/[address] [place] [address] Mann Irene MD Hypertension 04/28/2014 Patient Outreach [address] [place] [address] Sujatha Goldman RN Care Transition (Face to face encounter) 04/28/2014 10:40 AM EST Office Visit [address] [place] [address] Mann Irene MD Hand dermatitis (Primary Dx); Diarrhea 03/29/2014 Patient Outreach [facility] Transformation [address] [place] [address] Sujatha Goldman RN Care Transition (returning call) 03/28/2014 Patient Outreach [facility] [address] [place] [address] Sujatha Goldman RN Care Transition (Follow up call) 03/14/[address] [place] [address] Mann Irene MD Medication Refill 03/07/2014 Refill SEP [address] [place] [address] Mann Irene MD Medication Refill 03/06/2014 2:00 PM EDT Office Visit [address] [place] [address] Mann Irene MD OA (osteoarthritis)-s/p RIGHT TOTAL HIP REPLACEMENT 02/16/14. (Primary Dx) 02/28/2014 Patient Outreach [facility] [address] [place] [address] Sujatha Goldman RN Care Transition (Hospital follow up call) 02/20/2014 6:45 PM EDT - 02/25/2014 3:10 PM EDT Hospital Encounter [facility] [place] [address] Enrique Baker MD Screening for tuberculosis (Primary Dx); At risk for constipation; Pain; High cholesterol; Prevention of blood clots; Anemia; Hypokalemia Discharge Disposition: Home Health Care [facility] 02/24/2014 Telephone SEP [address] [place] [address] Mann Irene MD Other 02/16/2014 6:27 AM EDT - 02/20/2014 5:34 PM EDT Hospital Encounter EDG [address] [facility] [address] Bruce Oh MD OA (osteoarthritis) (Primary Dx); Hypercholesterolemia; Hypernatremia Discharge Disposition: Usp Facility 02/16/2014 9:00 AM EDT - 02/16/2014 10:30 AM EDT Surgery EDG PERIOP [facility] [address] [place] [address] Bruce Oh MD ARTHROPLASTY, HIP, TOTAL, ANTERIOR (KYLEE/NIC) 02/14/2014 Telephone [place] [address] [place] [address] Mann Ireen MD Other 02/11/2014 Refill [place] [address] [place] [address] Mann Irene MD Medication Refill 02/09/2014 9:00 AM EDT - 02/09/2014 11:59 PM EDT Hospital Encounter [place] [address] Provider, Edg Total Joint Class Discharge Disposition: Home or Self Care 02/09/2014 7:30 AM EDT - 02/09/2014 8:59 AM EDT Hospital Encounter EDG PRE-ADMIT TESTING [facility] [place] [address] OA (osteoarthritis) (Primary Dx); Pre-op testing; Anticoagulant disorder Discharge Disposition: Home or Self Care 01/19/2014 9:40 AM EDT Office Visit [place] [address] [place] [address] Mann Irene MD Dysuria (Primary Dx) 01/17/[address] [place] [address] Edil Mann MD Other 01/16/2014 8:54 PM EDT - 01/16/2014 11:59 PM EDT Hospital Encounter EDG LAB LAURA PROCESSING [facility] [place] [address] Dysuria Discharge Disposition: Home or Self Care 01/16/2014 3:00 PM EDT Office Visit [place] [address] [place] [address] Mann Irene MD UTI (urinary tract infection) (Primary Dx); Dysuria 01/16/[address] [place] [address] Mann Irene MD Urinary Tract Infection 01/13/[address] [place] [address] Mann Irene MD Paperwork/forms 12/22/[address] [place] [address] Mann Irene MD Other 12/22/2013 Orders Only [address] [place] [address] Mann Irene MD Hip fracture, unspecified laterality, closed, initial encounter (HCC) (Primary Dx) 12/21/2013 4:35 PM EDT - 12/21/2013 11:59 PM EDT Hospital Encounter [facility] [address] [place] [address] Mann Irene MD Leg pain Discharge Disposition: Home or Self Care 12/19/2013 7:09 PM EDT - 12/19/2013 11:59 PM EDT Hospital Encounter EDG LAB LAURA PROCESSING [facility] [place] [address] Dysuria Discharge Disposition: Home or Self Care 12/19/2013 Orders Only [address] [place] [address] Stefania Oquendo MD Pain (Primary Dx); Difficulty walking 12/19/2013 12:45 PM EDT Office Visit [address] [place] [address] Mann Irene MD Dysuria (Primary Dx); UTI (lower urinary tract infection); Leg pain, central, right 12/17/[address] [place] [address] Mann Irene MD Medication Refill 12/16/2013 3:41 PM EDT - 12/16/2013 11:59 PM EDT Hospital Encounter EDG LAB LAURA PROCESSING [facility] [place] [address] Thigh pain, right Discharge Disposition: Home or Self Care 12/16/2013 1:04 PM EDT - 12/16/2013 3:40 PM EDT Hospital Encounter G[facility] XRAY [address] [place] [address] Thigh pain, right Discharge Disposition: Home or Self Care 12/16/2013 11:00 AM EDT Office Visit [facility] [address] [place] [address] Stefania Oquendo MD Thigh pain, right (Primary Dx) 12/12/2013 Orders Only [facility] [address] [place] [address] [place] [address] Kindra Wren MA Special screening for malignant neoplasms, colon (Primary Dx) 10/31/2013 Refill SEP [facility] [address] [place] [address] Mann Irene MD Medication Refill 10/24/2013 Telephone [facility] Gastro CV [address] [place] [place] [address] Edil Mann MD Reschedule (COLON) 10/11/2013 Telephone [place] [address] [place] [address] Mann Irene MD Results 10/07/2013 12:22 PM EDT - 10/07/2013 11:59 PM EDT Hospital Encounter EDG VASCULAR LAB [facility] [place] [address] Mann Irene MD Claudication Discharge Disposition: Home or Self Care 10/07/2013 11:50 AM EDT - 10/07/2013 12:18 PM EDT Hospital Encounter [facility] [place] [address] Mann Irene MD Other screening mammogram Discharge Disposition: Home or Self Care 10/07/2013 12:19 PM EDT - 10/07/2013 12:21 PM EDT Hospital Encounter EDG ECHO [facility] [address] [place] [address] Mann Irene MD Heart murmur Discharge Disposition: Home or Self Care 09/26/2013 7:11 PM EDT - 09/26/2013 11:59 PM EDT Hospital Encounter EDG LAB LAURA PROCESSING [facility] [place] [address] Hypercholesterolemia Discharge Disposition: Home or Self Care 09/26/2013 9:20 AM EDT Office Visit [facility] [place] [facility] [address] [place] [phone] Mann Irene MD Well adult exam (Primary Dx); Claudication; Other screening mammogram; Heart murmur; Screen for colon cancer; Hypercholesterolemia; Osteoarthritis 06/19/2013 Refill [place] [address] [place] [address] Mann Irene MD Medication Refill 04/27/2013 Telephone [place] [address] [place] [address] Mann Irene MD Results 04/14/2013 9:10 AM EST - 04/14/2013 11:59 PM EST Hospital Encounter [facility] [address] [place] [address] Hyperlipidemia (Primary Dx) Discharge Disposition: Home or Self Care 04/06/2013 Orders Only [place] [address] [place] [phone] Mann Irene MD Hyperlipidemia (Primary Dx) 03/18/2013 3:00 PM EST Office Visit [place] [place] [address] [place] [address] Mann Irene MD Osteoarthritis (Primary Dx); Other screening mammogram; Colon cancer screening 12/07/[address] [place] [address] Mann Irene MD Other (Was given some cream Thursday and is not helping seems worse please advise) 12/03/2012 4:00 PM EDT Office Visit [place] [address] [place] [address] Mann Irene MD Malar Rash (Primary Dx) 11/03/2012 12:00 PM EDT - 11/03/2012 1:58 PM EDT Surgery EDG PERIOP [facility] [place] [address] Elza Bautista MD LUMBAR LAMINECTOMY/DISCECTOMY (COVERS FACETECTOMY) 11/03/2012 8:17 AM EDT - 11/03/2012 3:51 PM EDT Hospital Encounter EDG SAME DAY SURGERY [facility] [place] [address] Elza Bautista MD Discharge Disposition: Home or Self Care 10/28/2012 10:43 AM EDT - 10/28/2012 11:59 PM EDT Hospital Encounter EDG PRE-ADMIT TESTING [facility] [place] [address] Discharge Disposition: Home or Self Care 10/13/2012 11:40 AM EDT Office Visit [facility] [facility] [address] [place] [address] Mann Irene MD Jordy gracia (Primary Dx); Need for pneumococcal vaccination; Weight gain 09/21/2012 7:46 AM EDT - 09/21/2012 11:59 PM EDT Hospital Encounter [facility] MRI [address] [place] [address] Mann Irene MD Low back pain Discharge Disposition: Home or Self Care 09/15/2012 Telephone [facility] [address] [place] [address] aMnn Irene MD Other 09/13/2012 4:10 PM EDT - 09/13/2012 11:59 PM EDT Hospital Encounter EDG LAB LAURA PROCESSING [facility] [address] [place] [id number] Well adult exam Discharge Disposition: Home or Self Care 09/13/2012 10:25 AM EDT - 09/13/2012 4:09 PM EDT Hospital Encounter GRT XRAY [address] [place] [address] Low back pain Discharge Disposition: Home or Self Care 09/13/2012 8:30 AM EDT Office Visit [facility] [address] [place], [place] [address] Mann Irene MD [...] Noted Date Comments Celecoxib Rash High 02/16/2014 [place] Rash 01/01/2023 Medications aspirin 81 mg Oral [...] note is d ifferent from the original. [facility] Ness MD Controlled Substance Protocol Completed: NS Appt 08/29/24, 10/20/24, SNC Appt 10/28/23, 11/03/23 Gabapentin and/or Pregabalin A. Informed Consent Statement signed (Yearly) ( 05/31/2024 ) B. Controlled Substance Agreement signed (Yearly) ( 05/31/2024 ) D. Osei report completed (EVERY 3 MONTHS) ( 10/20/2024 ) Pharmacy: [facility] [address] [place] [address] [facility] [phone] Problem Noted Date Diagnosed Date Chronic diastolic [...] day. Luba 300 qhs, Pamelor 25 bid. Manning 5 q8 prn #15. 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 High risk surgical procedures (intraperitoneal, intrathoracic, [...] Unspecifi ed Formulation 02/09/2016,02/04/2014 PPD Test 02/20/2014 [employer] [employer] SARS-CoV-2 Vaccine Tr is-sucrose 12+ Yrs 08/06/2023 [...] Sister Social History Smoking Status as of 04/12/2025 Tobacco Use Types Packs/Day Years Used Date Smoking Tobacco: Never Assessed Overall Financial Resource Strain (CARDIA) Answe r Date Recorded How hard is it for you to pa y for the very basics like food, housing, medical care, and heating? Somewhat hard 02/27/2023 PHQ-2 Answer Date Recorded PHQ-2 Total Score 0 11/09/2023 [facility] - Occupational [...] in a residential (including now)? No 11/12/2022 Sex and Gender [...] on file Medical Devices Implanted Type Area Disposal Plant Operator Device Identifier Shelf Expiration Date Model / Serial / Lot Stent Contour 6 X 24 #[id number] - [id number] Implanted:Qty: 1 on 01/02/2020 by Amari Wheeler MD at [facility] Stent Right: Ureter [employer]:MICROVASIVE: UROLOGY [id number] / / [id number] Head V40 Ceramic Delta Biolox 36mm/-2.5 - [id number] Implanted:Qty: 1 on 02/16/2014 by Bruce Oh MD at [facility] Right: Hip KYLEE:ORTHOPED ICS 01/08/2019 6570-0-43 6 / / [id number] Stem Femoral Accolade Ii 127 Degree Size 5 - [id number] Implanted:Qty: 1 on 02/16/2014 by Bruce Oh MD at [facility] Right: Hip KYLEE:ORTHOPED ICS 02/07/2019 [id number] / / [id number] Insert Trident X 3 0 Degree 36mm D - [id number] Implanted:Qty: 1 on 02/16/2014 by Bruce Oh MD at [facility] Right: Hip KYLEE:ORTHOPED ICS 01/08/2019 623-00-36 D / / [id number] Screw Bone Cancellous 6.5mm X 30mm - [id number] Implanted:Qty: 1 on 02/16/2014 by Bruce Oh MD at [facility] Right: Hip KYLEE:ORTHOPED [facility] 02/07/2019 0614-7686 -1 / / [id number] Shell Acetabular Hole Cluster Hemispherical Tritanium D 52mm - [id number] Implanted:Qty: 1 on 02/16/2014 by Bruce Oh MD at [facility] Right: Hip KYLEE:ORTHOPED [facility] 11/07/2018 502-03-52 D / / [id number] Cmpnt Fem 3 Kn Lt Crcte Rtn Bead Trthln Pa - [id number] Implanted:Qty: 1 on 12/28/2018 by Bruce Oh MD at [facility] Left: Knee KYLEE:ORTHOPED [facility] 10/14/2023 [id number] / / [id number] Patella Backed Metal Tritanium Asymmetric A 35 X 10 - [id number] Implanted:Qty: 1 on 12/28/2018 by Bruce Oh MD at [facility] Left: Knee KYLEE:ORTHOPED [facility] 05/18/2023 5552-L-35 0 / / [id number] Insert Bearing Tibial Cs Triathlon X 3 Sz 4-11mm - [id number] Implanted:Qty: 1 on 12/28/2018 by Bruce Oh MD at [facility] Left: Knee KYLEE:ORTHOPED [facility] 10/04/2023 [id number] / / [id number] Bsplt Tib Trthln 4 Kn Tritanium - [id number] Implanted:Qty: 1 on 12/28/2018 by Bruce Oh MD at [facility] Left: Knee KYLEE:ORTHOPED [facility] 10/11/2023 5536-B-40 0 / / [id number] Lens Intraocular Preloaded 19.0 Diopter - [id number] Implanted:Qty: 1 on 02/28/2019 by Conor Ramirez MD at [facility] Right: Eye [facility] LAB:SURG 11/07/2021 AU00T0.19 0 / [id number] / Lens Intraocular Preloaded 20.0 Diopter - [id number] Implanted:Qty: 1 on 03/14/2019 by Conor Ramirez MD at [facility] Left: Eye [facility]:SURG 08/08/2021 AU00T0.20 0 / [id number] / [id number] Explanted Type Area Disposal Plant Operator Device Identifier Shelf Expiration Date Model / Serial / Lot Stent Contour 6 X 24 #[id number] - [id number] Implanted:Qty: 1 on 11/28/2019 by Amari Wheeler MD at [facility] Explanted:Qty: 1 on 01/02/2020 by Amari Wheeler MD at [facility] Stent Ureter [employer]:MICROVASIVE:U ROLOGY 02/10/2022 [id number] / / [id number] Procedures Procedure Name Priority Date/Time Associated Diagnosis [...] 10:09 AM EDT Screening for osteoporosis Postmenopausal VT ARTHROCENTESIS ASPIR&/INJ MAJOR JT/BURSA W/O US Routine [...] PM EDT History of right hip replacement VT ARTHROCENTESIS ASPIR&/INJ MAJOR JT/BURSA W/O US Routine [...] PROCALCITONIN Early AM 03/30/2022 3:02 PM EST GEIH-DIH0-WEW-RSV Routine 03/30/2022 9:53 AM EST ECG AND [...] Stella Hylton PCP: Mann Irene MD Primary Metal Bumper: Dr. mccurdy Reason for consult: syncope x3 History provided by: pt, EMR History limited by: nothing HPI: 76 yo past smoker female hx: HLD Adm for syncope x3. 1st episode was about 3 wks ago. 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 [...] lesions of bladder;Surgeon: Amari Wheeler MD; Location: [facility] MAIN OR; Service: Urology CATARACT REMOVAL Right 02/28/2019 RIGHT EYE CATARACT EXTRACTION WITH PHACOEMULSIFICATION AND INTRAOCULARLENS; Surgeon: Conor Ramirez MD; Location: [facility];Service: Ophthalmology CATARACT REMOVAL Left 03/14/2019 LEFT EYE CATARACT EXTRACTION WITH PHACOEMULSIFICATION AND INTRAOCULARLENS; Surgeon: Conor Ramirez MD; Location: [facility];Service: Ophthalmology COLONOSCOPY CYSTOSCOPY Right 11/28/2019 cystoscopy right stent placement, right extracorporeal shock wavelithotripsy; Surgeon: Amari Wheeler MD; Location: [facility];Service: Urology HEMORRHOID SURGERY HIP ARTHROPLASTY Right 02/16/2014 RIGHT TOTAL HIP REPLACEMENT; Surgeon: Bruce Oh MD; Location:[facility] MA[facility] OR; Service: Orthopedics HYSTERECTOMY complete LITHOTRIPSY Right 11/28/2019 Surgeon: Amari Wheeler MD; Location: [facility]; Service: Urology LUMBAR DISC SURGERY [...] most recent cardiovascular imaging studies availabe in [facility] EMR werereviewed at time of consultation Assessment [...] coordination with the nursepractitioner. Fredi Nick MD [facility] CARDIOLOGY CONSULT Chief Complaint Patient presents with [...] ipratropium (ATROVENT) 21 mcg (0.03 %) Nasl [place], Non-Aerosol 2 Spraysby Nasal route 3 times [...] lesions of bladder;Surgeon: Amari Wheeler MD; Location: [facility] MA[facility] OR; Service: Urology CATARACT REMOVAL Right 02/28/2019 RIGHT EYE CATARACT EXTRACTION WITH PHACOEMULSIFICATION AND INTRAOCULARLENS; Surgeon: Conor Ramirez MD; Location: [facility];Service: Ophthalmology CATARACT REMOVAL Left 03/14/2019 LEFT EYE CATARACT EXTRACTION WITH PHACOEMULSIFICATION AND INTRAOCULARLENS; Surgeon: Conor Ramirez MD; Location: [facility];Service: Ophthalmology COLONOSCOPY CYSTOSCOPY Right 11/28/2019 cystoscopy right stent placement, right extracorporeal shock wavelithotripsy; Surgeon: Amari Wheeler MD; Location: [facility];Service: Urology HEMORRHOID SURGERY HIP ARTHROPLASTY Right 02/16/2014 RIGHT TOTAL HIP REPLACEMENT; Surgeon: Bruce Oh MD; Location:[facility] MA[facility] OR; Service: Orthopedics HYSTERECTOMY complete LITHOTRIPSY Right 11/28/2019 Surgeon: Amari Wheeler MD; Location: [facility]; Service: Urology LUMBAR DISC SURGERY 11/03/2012 Surgeon: Elza Bautista MD; Location: [facility] MAIN OR; Service: TOTAL KNEE ARTHROPLASTY Left 12/28/2018 left knee total replacement; Surgeon: Bruce Oh MD; Location:[facility] MA[facility] OR; Service: Orthopedics URETEROSCOPY Right [...] consultation. 03/30/2022 1:26 PM Fredi Nick MD [facility] ECG AND WAVEFORMS - TELEMETRY Routine 03/29/2022 5:11 AM EST IP CONSULT TO CARDIOLOGY Routine 03/28/2022 9:41 PM EST Procedure Note - Fredi Nick MD - 03/30/2022 11:55 AM ESTThis note is in progress. Heart & Vascular Consult Note PATIENT: Stella Hylton PCP: Mann Irene MD Primary Metal Bumper: Dr. mccurdy Reason for consult: syncope x3 History provided by: pt, EMR History limited by: nothing HPI: 76 yo past smoker female hx: HLD Adm for syncope x3. 1st episode was about 3 wks ago. 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 [...] AND INTRAOCULARLENS; Surgeon: Conor Ramirez MD; Location: [facility];Service: Ophthalmology CATARACT REMOVAL Left 03/14/2019 LEFT EYE CATARACT EXTRACTION WITH PHACOEMULSIFICATION AND INTRAOCULARLENS; Surgeon: Conor Ramirez MD; Location: [facility];Service: Ophthalmology COLONOSCOPY CYSTOSCOPY Right 11/28/2019 cystoscopy right stent placement, right extracorporeal shock wavelithotripsy; Surgeon: Amari Wheeler MD; Location: [facility];Service: Urology HEMORRHOID SURGERY HIP ARTHROPLASTY [...] most recent cardiovascular imaging studies availabe in [facility] EMR werereviewed at time of consultation Assessment [...] coordination with the nursepractitioner. Fredi Nick MD [facility] CARDIOLOGY CONSULT Chief Complaint Patient presents with [...] ipratropium (ATROVENT) 21 mcg (0.03 %) Nasl [place], Non-Aerosol 2 Spraysby Nasal route 3 times [...] lesions of bladder;Surgeon: Amari Wheeler MD; [facility]; Service: Urology CATARACT REMOVAL Right 02/28/2019 RIGHT EYE CATARACT EXTRACTION WITH PHACOEMULSIFICATION AND INTRAOCULARLENS; Surgeon: Conor Ramirez MD; Location: [facility];Service: Ophthalmology CATARACT REMOVAL Left 03/14/2019 LEFT EYE CATARACT EXTRACTION WITH PHACOEMULSIFICATION AND INTRAOCULARLENS; Surgeon: Conor Ramirez MD; Location: [facility];Service: Ophthalmology COLONOSCOPY CYSTOSCOPY Right 11/28/2019 cystoscopy right stent placement, right extracorporeal shock wavelithotripsy; Surgeon: Amari Wheeler MD; Location: [facility];Service: Urology HEMORRHOID SURGERY HIP ARTHROPLASTY Right 02/16/2014 RIGHT TOTAL HIP REPLACEMENT; Surgeon: Bruce Oh MD; Location[facility]; Service: Orthopedics HYSTERECTOMY complete LITHOTRIPSY Right 11/28/2019 Surgeon: Amari Wheeler MD; Location: [facility]; Service: Urology LUMBAR DISC SURGERY [...] consultation. 03/30/2022 1:26 PM Fredi Nick MD [facility] TROPONIN-T HIGH SENSITIVITY 2HR Timed 03/28/2022 3:52 PM EST ADMIT STAT 03/28/2022 2:25 PM EST XR CHEST AP PORTABLE ISVA 03/28/2022 2:21 PM EST URINALYSIS STAT 03/28/2022 [...] 01/27/2022 11:09 AM EDT Syncope, cardiogenic [facility] CAROTID DUPLEX BILATERAL Routine 10/31/2021 1:00 PM EDT PVD (peripheral vascular disease) [facility] LOWER EXTREMITY ARTERIAL PHYSIOLOGICAL Routine 10/31/2021 [...] Routine 07/20/2019 2:53 PM EDT Recurrent UTI NON-SALESPERSON WIGS CYTOLOGY REQUEST Routine 07/20/2019 2:53 PM EDT [...] DIFF Routine 03/05/2018 3:17 PM EDT Dizziness [place] US LOWER EXTREMITY ARTERIAL PHYSIOLOGICAL Routine 12/11/2017 [...] Consult Dictated by Matthew Conde MD, Dictation# [id number] Active Hospital Problems Diagnosis OA (osteoarthritis)-s/p RIGHT [...] region and thigh, right Special Needs FAX CPT;32371 PAT UPDATED SPECIMEN STAT 02/16/2014 7:41 AM [...] without neurogenic claudi Special Needs MULU CPT; 42618/25775 EK EKG 12 LEAD STAT 11/03/2012 11:23 [...] resultswithin the time period is included. Pathologist [facility] Vit D 25 OH 55.1 30.0 - 150.0 ng/mL 11/09/2023 3:41 PM EDT [facility] Comment: Preferred: >= 30 ng/mL Insufficient: 21-29 [...] Jj DO CHEMISTRY ORDERABLES Final R esult [employer] [address] , [place] [address] * (ABNORMAL) CBC WITH DIFF (11/09/2023 11:21 AM EDT) Only the most recent of15 resultswithin the time period is included. Pathologist [facility] WBC 7.2 3.7 - 10.3 x10(3)/mcL 11/09/2023 [...] 3:06 PM EDT [facility] [place] Percent 8.1 % 11/09/2023 3:06 PM EDT [facility] Eos Percent 7.1 % 11/09/2023 3:06 PM EDT [facility] Baso Percent 0.8 % 11/09/2023 3:06 PM EDT [facility] Neut # 2.8 1.6 - 6.1 x10(3)/mcL 11/09/2023 3:06 PM EDT [facility], [facility] Comment:Neutrophils equals s egs plus bands IMMGRAN# 0.0 0.0 - 0.1 x10(3)/[facility] 11/09/2023 3:06 PM EDT [facility], [facility] Comment:Automated count of m etamyelocytes, myelocytes and promyelocytes. An absolute IG <0.1 is reported as 0.0. Lymph # 3.2 1.2 - 3.9 x10(3)/[facility] 11/09/2023 3:06 PM EDT [facility], [facility] [place] # 0.6 0.3 - 0.9 x10(3)/[facility] 11/09/2023 3:06 PM EDT [facility], [facility] Eos# 0.5 0.0 - 0.5 x10(3)/[facility] 11/09/2023 3:06 PM EDT [facility], [facility] Baso # 0.1 0.0 - 0.1 x10(3)/[facility] 11/09/2023 3:06 PM EDT [facility], [facility] Blood VENOUS BLOOD / Unknown Venipuncture / Unknown 11/09/2023 11:21 AM EDT 11/09/2023 11:21 AM EDT Palma Jj DO HEMATOLOGY ORDERABLES Final Result [facility], [facility] [address] [place] [address] * NT PROBNP (11/09/2023 11:21 AM EDT) NT Pro-BNP 102 <=624 pg/mL 11/09/2023 3:27 PM EDT [facility] Blood VENOUS BLOOD / Unknown Venipuncture / Unknown 11/09/2023 11:21 AM EDT 11/09/2023 11:21 AM EDT Narrative [facility] - 11/09/2023 3:27 PM EDT An [...] ORDERABLES Final R esult Performing Organization Address City/[facility]/ZIP Co de Phone Number [facility]REFERRED [facility], [facility] [address] , [place] [address] * (ABNORMAL) LIPID SCREEN (11/09/2023 11:21 AM EDT) Only the most recent of6 resultswithin the time period is included. [facility] Cholesterol 220(H) <200 mg/dL 11/09/2023 3:35 PM EDT [facility] Comment: < 200 Desirable 200 - 239 Borderline High >= 240 High Triglyceride 91 <150 mg/dL 11/09/2023 3:35 PM EDT [facility] [employer] Comment: < 150 Normal 150 - 199 Borderline High 200 - 499 High >= 500 Very High HDL 53 >=40 mg/dL 11/09/2023 3:35 PM EDT [facility] Comment: > 60 Optimal 40 - 60 Acceptable < 40 Low LDL Calculated 151(H) <100 mg/dL 11/09/2023 3:35 PM EDT [facility] [employer] Comment: < 100 Optimal 100 - 129 Near or above optimal 130 - 159 Borderline High 160 - 189 High >= 190 Very High Non-HDL-C Calculated 167(H) <=129 mg/dL 11/09/2023 3:35 PM EDT [facility] [employer] Comment: <130 Desirable 130-159 Above Desirable 160-189 Borderline High 190-219 High >= 220 Very High Fasting Specimen? No None 024 3:35 PM EDT [facility] Blood VENOUS BLOOD / Unknown Venipuncture / Unknown 11/09/2023 11:21 AM EDT 11/09/2023 11:21 AM EDT Palma Jj DO CHEMISTRY ORDERABLES Final R esult Performing Organization Address City/[facility]/ZIP Co de Phone Number [facility], [facility] [address] , [place] [address] [facility] [address] [place] [address] * BASIC METABOLIC PANEL (11/09/2023 11:21 AM EDT) Only the most recent of9 resultswithin the time period is included. Sodium 141 136 - 145 mmol/L 11/09/2023 3:35 PM EDT [facility] Potassium 4.5 3.5 - 5.0 mmol/L 11/09/2023 3:35 PM EDT [facility] Chloride 105 98 - 107 mmol/L 11/09/2023 3:35 PM EDT [facility] Total CO2 29 22 - 29 mmol/L 11/09/2023 3:35 PM EDT [facility] Anion Gap 7 7 - 16 mmol/L 11/09/2023 3:35 PM EDT [facility] Calcium 9.6 8.8 - 10.4 mg/dL 11/09/2023 3:35 PM EDT [facility] Glucose Lvl 77 70 - 99 mg/dL 11/09/2023 3:35 PM EDT [facility] BUN 19 8 - 23 mg/dL 11/09/2023 3:35 PM EDT [facility] Creatinine 0.74 0.51 - 1.30 mg/dL 11/09/2023 3:35 PM EDT [facility] eGFR (CKD-EPIcr 2020) 83 >=60 mL/min/1.7 3 m2 11/09/2023 3:35 PM EDT [facility] Comment:Estimated GFR was ca lculated using the CKD-EPIcr (2020) equation refit without race. The equation is recommended by the National Kidney Foundation - [place] [employer] Nephrology Task Force. Blood VENOUS BLOOD / Unknown Venipuncture / Unknown 11/09/2023 11:21 AM EDT 11/09/2023 11:21 AM EDT us Palma Jj DO CHEMISTRY ORDERABLES Final R esult [facility] [address] , [place] [address] [address] * XR CERVICAL SPINE AP AND LATERAL (08/12/2023 1:11 PM EDT) Anatomical Region Laterality Modality C-spine Radiographic Demetra ging 08/12/2023 1:11 PM EDT Impressions 08/12/2023 2:32 PM EDT Multilevel degenerative changes. Narrative 08/12/2023 2:32 PM EDT AP AND LATERAL C-SPINE, 08/12/2023 1:11 PM CLINICAL HISTORY: M54.4-Nthkjdrapsl-UFJ-10-CM COMPARISON: None. PROCEDURE COMMENTS: AP and lateral [...] LATERAL C-SPINE, 08/12/2023 1:11 PM CLINICAL HISTORY: M54.7-Irqkskiafng-BGP-10-CM COMPARISON: None. PROCEDURE COMMENTS: AP and lateral [...] 2:05 PM CLINICAL HISTORY: M79.671-Pain in right hrfv-AND-81-CM COMPARISON: None. PROCEDURE COMMENTS: XR FOOT RIGHT AP LATERAL AND OBLIQUE FINDINGS: There is no fracture or traumatic malalignment. 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 There is hallux bunion. 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 Procedure Note Juaquin Morel MD - 07/06/2023 XR FOOT RIGHT AP LATERAL AND OBLIQUE, 07/06/2023 2:05 PM CLINICAL HISTORY: M79.671-Pain in right xsqh-MJR-07-CM COMPARISON: None. PROCEDURE COMMENTS: XR FOOT RIGHT [...] - 123 U/L 04/06/2023 11:01 PM EST [employer] eGFR (CKD-EPIcr 2020) 90 >=60 mL/min/1.7 3 m2 04/06/2023 11:01 PM EST [facility] Comment:Estimated GFR was ca lculated using the CKD-EPIcr (2020) equation refit without race. The equation is recommended by the National Kidney Foundation - [place] [employer] of Nephrology Task Force. Blood VENOUS BLOOD / Unknown Venipuncture / Unknown 04/06/2023 11:41 AM EST 04/06/2023 11:41 AM EST Palma Jj DO CHEMISTRY ORDERABLES Final R esult Performing Organization Address City/[facility]/ZIP Co de Phone Number [employer] [address], [address] [place] [phone] [facility] [address] [place] [address] * POCT EKG (04/06/2023 11:22 AM EST) [...] bone density assessment. Study was performed on [employer] APEX 5. Bone Density: Region BMD T-score [...] IMG DEXA ORDERABLES Final Re sult * VT ARTHROCENTESIS ASPIR&/INJ MAJOR JT/BURSA W/O US (12/03/2022 [...] to verify the correct patient, procedure, equipment, clerical and office support workers and site/side marked as required. Patient was prepped and draped in the usual sterile fashion. Ludwin Son PA-C PROCEDURE/MINOR SURGICAL OR DERABLES Final Result Performing Organization Address [facility] Co de Phone Number ORTHOCINCY * MRI LUMBAR SPINE WO CONTRAST (11/03/2022 11:44 AM EDT) Only the most recent of2 resultswithin the time period is included. Narrative [facility] - 11/03/2022 11:44 AM EDT Please see the scanned MRI report associated with this order on the Imaging tab of the patient's chart. us Bruce REMY MRI ORDERABLES Final Res ult Performing Organization Address [facility] de Phone Number [facility] * XR KNEE RIGHT AP LATERAL [...] DIAGNOSTIC IMAGING ORDER LILLIAN Final Result * VT ARTHROCENTESIS ASPIR&/INJ MAJOR JT/BURSA W/O US (10/22/2022 1:45 PM EDT) Narrative [facility] - 10/22/2022 1:45 PM EDT Nayely [...] to verify the correct patient, procedure, equipment, clerical and office support workers and site/side marked as required. Patient was prepped and draped in the usual sterile fashion. Bruce Oh MD PROCEDURE/MINOR SURGICAL ORD ERABLES Final Result [facility] [address] [place] [address] * MM MAMMO DIGITAL VIVIANA SCREEN BILAT (07/28/2022 11:27 AM EDT) Only the most recent of2 resultswithin the time period is included. Anatomical Region Laterality Modality Breast Bilateral Mammography 07/29/2022 7:54 AM EDT Impressions 07/29/2022 7:54 AM EDT Negative (DRV-Dzmndvqz-1) ~ RECOMMENDATION: Routine screening mammogram in 1 [...] for screening mammogram for malignant neoplasm of ifidyy-UNF-82-CM ~ MM MAMMO DIGITAL VIVIANA SCREEN BILAT [...] for screening mammogram for malignant neoplasm of jrglih-SLR-36-CM ~ MM MAMMO DIGITAL VIVIANA SCREEN BILAT Bilateral CC and MLO view(s) were taken. There are scattered fibroglandular densities. Prior study comparison: Compared with prior studies the most recentbeing 07/16/21, 10/15/18 No mammographic evidence of malignancy. ~ IMPRESSION: Negative (QYO-Xwgdvvgu-3) ~ RECOMMENDATION: Routine screening mammogram in 1 [...] Growth(A) 07/30/2022 10:57 AM EDT [facility], [facility] Culture >100,000 CFU/mL Escherichia coli SUSCEPTIBI LITY RESULT 07/30/2022 10:57 AM EDT [facility], [facility] Urine URINE SPECIMEN COLLECTION, CLEAN CATCH [...] ORDER LILLIAN Final Result [facility] [address] [facility] , [place] [address] * (ABNORMAL) SEP URINALYSIS POC [...] ORDERABLE S Final Result [facility] [address] [place] [address] * TSH REFLEX (07/09/2022 2:01 PM EST) Only the most recent of3 resultswithin the time period is included. TSH Reflex 1.040 0.270 - 4.200 mcIU/mL 07/09/2022 9:42 PM EST [facility] Blood VENOUS BLOOD / Unknown Venipuncture / Unknown 07/09/2022 2:01 PM EST 07/09/2022 2:01 PM EST Narrative [facility] - 07/09/2022 9:42 PM EST Ingestion of lakshmi doses of biotin (>5 mg/day) taken within 8 hours of drawing blood sample can interfere with this immunoassay test. us Palma Jj DO CHEMISTRY ORDERABLES Final R esult [facility] [address] , [place] [address] * SCANNED RADIOLOGY REPORT (04/04/2022 3:50 PM EST) Anatomical Region Laterality Modality Other 04/04/2022 3:50 PM EST us Unknown Provider IMG DIAGNOSTIC IMAGING ORDERABL ES Final Result * EV EVENT MONITOR (04/04/2022 10:26 AM EST) Anatomical Region Laterality Modality Holter/Event Mon itoring 05/06/2022 4:50 AM EST Impressions 05/06/2022 8:20 AM EST [facility] Test Date: 2022-05-06 Pat Name: STELLA HYLTON Department: DEPID Room: Gender: Female Marine Fitter: : 1945 Requested By: FREDI Mc Order Number: [id number] Carlos MD: Fredi Nick MD Interpretive Statements Linux Admin Date: 04/04/2022 Referring Provider: Dr. Fredi Nick [...] STELLA HYLTON Department: DEPID Room: Gender: Female Marine Fitter: : 1945 Requested By: FREDI Mc Order Number: [id number] Reading MD: Fredi Nick MD Interpretive Statements Linux Admin Date: 04/04/2022 Referring Provider: Dr. Fredi Nick [...] time period is included. ECG INTERPRET NSR [facility] 04/01/2022 7:[address] [facility] - 04/01/2022 8:25 AM EST BA/HICUITY ROUTINE VT 0.15 QRS 0.10 QT 0.43 See Clinical Report link for waveform capture us Unknown Provider POINT OF CARE CARDIOLOGY Final Result [facility] [address] [place] [address] * EC ECHOCARDIOGRAM COMPLETE W DOPPLER AND [...] normal myocardial wall motion. us Sundeep Chan SPECIMEN PREPARATION ASSISTANT IMG NM CARDIAC ORDERABLES Fi nal Result * ST STRESS TEST LEXISCAN (03/31/2022 12:32 PM EST) Anatomical Region Laterality Modality Cardiac Stress T esting 03/31/2022 12:1 5 PM EST Impressions 03/31/2022 3:24 PM EST [facility] Test Date: 2022-03-31 Pat Name: STELLA HYLTON Department: DEPID Room: 440 Gender: Female Marine Fitter: Rachael Cifuentes RN : 1945 Requested By: TIANA ENRIQUEZ Order Number: [id number] Reading MD: Riley Segovia MD Interpretive Statements [...] Pat Name: STELLA HYLTON Department: DEPID Room: [facility] Gender: Female Marine Fitter: Rachael Cifuentes RN : 1945 Requested By: TIANA ENRIQUEZ Order Number: [id number] Reading MD: Riley Segovia MD Interpretive Statements [...] EST by Riley Segovia MD Sundeep Chan SPECIMEN PREPARATION ASSISTANT [facility] STRESS ORDERABLES Final Result * US THYROID [...] patient variables. For comprehensive details, refer to https://www.acr.org/clinical-resources/ukvxjodos-kps-grcg-systems/ti-rads. Right lobe measures: 3.8 x 1.7 x [...] patient variables. For comprehensive details, refer to https://www.acr.org/clinical-resources/naeyulnyb-fpf-zwwj-systems/ti-rads. Right lobe measures: 3.8 x 1.7 x [...] the ordering clinician. us Lolis Byrd MD [facility] US ORDERABLES Final Result * PROCALCITONIN (03/30/2022 3:02 PM EST) Procalcitonin <0.05 <=0.49 ng/mL 03/30/2022 3:52 PM EST [facility] Blood VENOUS BLOOD / Unknown Venipuncture / Unknown 03/30/2022 3:02 PM EST 03/30/2022 3:07 PM EST Narrative [facility] - 03/30/2022 3:52 PM EST Procalcitonin <0.50 [...] Byrd MD CHEMISTRY ORDERABLES Final Resul t [employer] [address], [place] [address] * (ABNORMAL) D-DIMER (03/30/2022 3:02 PM EST) [facility] D-Dimer 671(H) <=500 ng/mL FEU 03/30/2022 3:21 PM EST [employer] Comment:This is an automated latex enhanced immunoassay [...] PM EST 03/30/2022 3:07 PM EST Narrative [employer] - 03/30/2022 3:21 PM EST For patients between the ages of 50 - 75, an age-adjusted D-Dimer cut-off in combination with non-high clinical probability may be considered for the exclusion of venous thromboembolism (calculation = age x 10). MAGNUS Warren et al. [employer] Med. 2017;166(5):361-363 PRAKASH Vogt, et al. [employer]. 2015;(163):701-711. Tomi Lock, et al. HUI. 2014;(11):6326-2006. us Lolis Byrd MD HEMATOLOGY ORDERABLES Final Resu lt [facility] [address] , [place] [address] * [id number]-EFH5-NTR-RSV (03/30/2022 9:53 AM EST) Pathologist [facility] CORONAVIRUS [id number]-2 Not Detected Not Detected 03/30/2022 12:16 PM EST [facility] Influenza A DNA Not Detected Not Detected 03/30 12:16 PM EST [facility] Influenza B DNA Not Detected Not Detected 03/30 12:16 PM EST [facility] RSV DNA Not Detected Not Detected 03/30/2022 12:16 PM EST [facility] Swab BOTH ANTERIOR NARES / Unknown 03/30/2022 9:53 AM EST 03/30/2022 9:53 AM EST Narrative [facility] - 03/30/2022 12:16 PM EST This [...] management decisions. Test is performed on the [employer] GeneXpert platform under the FDA's Emergency Use Authorization (EUA). Cepheid Fact Sheet for Providers and Patients: Cepheid Fact Sheet for Providers: https://www.fda.gov/media/252866/download Cepheid Fact Sheet for Patients: https://www.fda.gov/media/196060/download us Lolis Byrd MD MICROBIOLOGY - GENERAL ORDERABLE S Final Result Performing Organization Address City/[facility]/ZIP Co de Phone Number PREFERRED [facility] [employer] [address], [place] [address] * TROPONIN-T HIGH SENSITIVITY 2HR (03/28/2022 3:52 PM EST) Only the most recent of2 resultswithin the time period is included. zn-sLjblnjxk-S 2HR 10 <14 ng/L 03/28/2022 4:[address] [facility] Comment:See the website [employer] for rule out [place] care pathway, conditions other than AMI that can cause elevated hs cTnT, and comparison of values from the 4th and 5th generation Rosie tests. https://askmayoexpert.[facility].org/topic/clinical-answers/gnt-64820150/cpm-203 21503 hs-cTnT 2Hr Delta from Baseline 0 <4 ng/L 03/28/2022 4:17 PM EST [facility] Blood VENOUS BLOOD / Unknown Venipuncture / Unknown 03/28/2022 3:52 PM EST 03/28/2022 3:55 PM EST Narrative [facility] - 03/28/2022 4:17 PM EST Ingestion of lakshmi doses of biotin (>5 mg/day) taken within 8 hours of drawing blood sample can interfere with this immunoassay test. us Fredi Hamlin APRN CHEMISTRY ORDERABLES Final Result Performing Organization Address City/[facility]/ZIP Co de Phone Number [facility] [address] [place] [address] * XR CHEST AP PORTABLE [...] ORD ERABLES Final Result Performing Organization Address [facility]/State/[facility] Co de Phone Number [place] [phone] * (ABNORMAL) URINALYSIS (03/28/2022 2:09 PM EST) Only the most recent of5 resultswithin the time period is included. UA Color Yellow 03/28/2022 2:20 PM EST [facility] UA Appear Clear Clear 03/28/2022 2:20 PM EST [facility] UA Glucose Negative Negative mg/dL 03/28/2022 2:20 PM EST [facility] UA Ketones Negative Negative mg/dL 03/28/2022 2:20 PM EST [facility] UA Blood Negative Negative 03/28/2022 2:20 PM EST [facility] UA pH 6.0 5.0 - 8.0 pH 03/28/2022 2:20 PM EST [facility] UA Protein Trace (10-20 mg/dL) Negative mg/dL 03/28/2022 2:20 PM EST [facility] UA Urobilinogen Normal <=1 mg/dL 2:20 PM EST [facility] UA Bili Negative Negative 03/28/2022 2:20 PM EST [facility] UA Nitrite Positive(A) Negative 03/28/2022 2:20 PM EST [facility] UA Leuk Est 3+ (250 Zena/mcl)(A) Negative 03/28/2022 2:20 PM EST [facility] UA Spec Grav 1.026 1.001 - 1.035 no units 03/28/2022 2:20 PM EST [facility] Comment:Reference range chong d for random specimens only. UA WBC 5(H) 0 - 4 /HPF 03/28/2022 2:20 PM EST [facility] UA RBC 1 0 - 3 /HPF 03/28/2022 2:20 PM EST [facility] UA Squam Epi 1+ /LPF 03/28/2022 2:20 PM EST [facility] UA Mucus Trace /LPF 03/28/2022 2:20 PM EST [facility] UA Bacteria 1+(A) Negative /HPF 03/28/2022 2:20 PM EST [facility] Urine URINE SPECIMEN COLLECTION, CLEAN CATCH / Unknown 03/28/2022 2:09 PM EST 03/28/2022 2:14 PM EST us Fredi Hamlin SPECIMEN PREPARATION ASSISTANT URINE ORDERABLES Final Res ult [facility] [address] , [place] [address] * TROPONIN-T HIGH SENSITIVITY BASELINE W/ REFLEX (03/28/2022 1:23 PM EST) Only the most recent of2 resultswithin the time period is included. Pathologist [facility] ah-nYcivjacq-L 10 <14 ng/L 03/28/2022 1:46 PM EST [facility] Comment:See the website [facility] for rule out [place] care pathway, conditions other than AMI that can cause elevated hs cTnT, and comparison of values from the 4th and 5th generation Rosie tests. https://askmayoexpert.[facility].org/topic/clinical-answers/gnt-27639098/cpm-203 39012 Blood VENOUS BLOOD / Unknown Venipuncture / Unknown 03/28/2022 1:23 PM EST 03/28/2022 1:26 PM EST Narrative [facility] - 03/28/2022 1:46 PM EST Ingestion of lakshmi doses of biotin (>5 mg/day) taken within 8 hours of drawing blood sample can interfere with this immunoassay test. Fredi Hamlin SPECIMEN PREPARATION ASSISTANT CHEMISTRY ORDERABLES Final Result [facility] [address] [place] [address] * (ABNORMAL) CBC (03/28/2022 1:23 PM EST) Only the most recent of6 resultswithin the time period is included. Pathologist [facility] WBC 11.0(H) 3.7 - 10.3 x10(3)/mcL 03/28/2022 1:29 PM EST [facility] RBC 5.05 3.90 - 5.20 x10(6)/mcL 03/28/2022 1:29 PM EST [facility] Hgb 14.4 11.2 - 15.7 g/dL 03/28/2022 1:29 PM EST [facility] Hct 45.4(H) 34.0 - 45.0 % 03/28/2022 1:29 PM EST [facility] MCV 89.9 80.0 - 100.0 fL 03/28/2022 1:29 PM EST [facility] MCH 28.5 26.0 - 34.0 pg 03/28/2022 1:29 PM EST [facility] MCHC 31.7 30.7 - 35.5 g/dL 03/28/2022 1:29 PM EST [facility] RDW 13.6 <=14.9 % 03/28/2022 1:29 PM EST [facility] Platelet 357 155 - 369 x10(3)/mcL 03/28/2022 1:29 PM EST [facility] MPV 8.9 8.8 - 12.5 fL 03/28/2022 1:29 PM EST [facility] Blood VENOUS BLOOD / Unknown Venipuncture / Unknown 03/28/2022 1:23 PM EST 03/28/2022 1:26 PM EST us Fredi Hamlin SPECIMEN PREPARATION ASSISTANT HEMATOLOGY ORDERAB[place] [address] * EK EKG 12 LEAD (03/28/2022 11:11 AM EST) Only the most recent of3 resultswithin the time period is included. Anatomical Region Laterality Modality Electrocardiogra phy 03/28/2022 11:1 3 AM EST Impressions 03/28/2022 12:[address] 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: Jacob : 1945 Requested By: [facility] Order Number: [id number] Carlos MD: Elbert Reyna MD Measurements Intervals Farber Rate: 92 P: 77 VT: 132 QRS: 82 QRSD: 106 T: 48 QT: 343 QTc: 425 Interpretive Statements SINUS RHYTHM Electronically Signed On 03-28-2022 12:30:04 EST by Elbert Reyna MD us Marivel King DO IMG ECG ORDERABLES Final Resul t * HM HOLTER MONITOR RECORDING AND ANALYSIS (02/17/2022 9:30 AM EDT) Anatomical Region Laterality Modality Holter/Event Mon itoring 02/26/2022 7:27 AM EDT Impressions 02/26/2022 7:01 PM EDT [facility] Test Date: 2022-02-26 Pat Name: STELLA HYLTON Department: DEPID Room: Gender: Female 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 Mann Irene MD Patient was monitored for 48 hours. INDICATIONS: Orthostatic hypotension CONCLUSION: Patient monitored for 2d 3h starting on 02/17/2022 09:24 am. Primary rhythm was Sinus Rhythm. Average heart rate was 88 bpm, Minimum heart rate was 67 bpm on Day :29:10 am, Max heart rate was 136 bpm on :57:50 pm SVE(s): Wagner was 0.45 %, max count per 24 hours 581 SVT (AT, RT): 1 events, longest event 3 beats on Day :12:59 am, fastest event 181 bpm on :12:59 am PVC(s): Wagner was 0.08 %, max count per 24 hours 104, 2 disparate morphologies PHYSICIAN SUMMARY: 1. Sinus rhythm with heart rates 67-136 bpm; average 88 bpm. 2. Occasional PACs. Occasional PVCs. 3. No detected arrhythmias. 4. No significant heart block or pauses. 5. No symptoms reported. Electronically Signed On 02-26-2022 19:01:30 EDT by Sergio Vincent Narrative Procedure Note Sergio Vincent MD - 02/26/2022 IMPRESSION 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 Mann Irene MD Patient was monitored for 48 hours. INDICATIONS: Orthostatic hypotension CONCLUSION: Patient monitored for 2d 3h starting on 02/17/2022 09:24 am. Primary rhythm was Sinus Rhythm. Average heart rate was 88 bpm, Minimumheart rate was 67 bpm on Day :29:10 am, Max heart rate was 136 bpm on Day :57:50 pm SVE(s): Wagner was 0.45 %, max count per 24 hours 581 SVT (AT, RT): 1 events, longest event 3 beats on Day :12:59 am,fastest event 181 bpm on Day :12:59 am PVC(s): Wagner was 0.08 %, max count per 24 [...] IMG HOLTER MONITOR ORDERABLES Final Result * [facility]ICAL (10/31/2021 12:30 [...] 1,245 pg/mL 09/24/2021 4:50 PM EDT [facility] Folate 11.50 >=4.80 ng/mL 09/24/2021 4:50 PM EDT [facility] Blood VENOUS BLOOD / Unknown Venipuncture / Unknown 09/24/2021 8:48 AM EDT 09/24/2021 8:48 AM EDT Narrative [facility] - 09/24/2021 4:50 PM EDT Ingestion of lakshmi doses of biotin (>5 mg/day) taken within 8 hours of drawing blood sample can interfere with this immunoassay test. Mann Irene MD CHEMISTRY ORDERABLES Final Res ult [facility] [address] [facility] , [address] [place] [id number] * SARS-COV-2 IGG (03/23/2020 7:53 AM EST) SARS-CoV-2 IgG (Nucleocapsid) Negative 03/23/2020 5:30 PM EST [facility] Blood VENOUS BLOOD / Unknown Venipuncture / Unknown 03/23/2020 7:53 AM EST 03/23/2020 7:54 AM EST Narrative [employer] - 03/23/2020 5:30 PM EST The SARS-CoV-2 [...] the presence of IgG confers protective immunity. [facility] [facility] Provider Fact Sheet: https://www.Samares.gov/media/200673/download [employer] [facility] Patient Fact Sheet: https://www.Samares.gov/media/347700/download [facility] IMMUNOLOGY ORDERABLES Final Result Performing Organization Address [facility] de Phone Number [employer] [address] [place] [address] , [place] [address] * THYROID STIMULATING HORMONE (03/23/2020 7:53 AM EST) Only the most recent of2 resultswithin the time period is included. TSH 0.629 0.270 - 4.200 mcIU/mL 03/23/2020 4:58 PM EST [employer] Blood VENOUS BLOOD / Unknown Venipuncture / Unknown 03/23/2020 7:53 AM EST 03/23/2020 7:54 AM EST Narrative [employer] - 03/23/2020 4:58 PM EST Ingestion of lakshmi doses of biotin (>5 mg/day) taken within 8 hours of drawing blood sample can interfere with this immunoassay test. [facility] CHEMISTRY ORDERABLES Final Result Performing Organization Address [facility] Co de Phone Number [employer] [address] [place] [address] , [place] [address] * SCANNED RHYTHM STRIPS (01/03/2020 9:38 AM EDT) Only the most recent of5 resultswithin the time period is included. Anatomical Region Laterality Modality Other 01/03/2020 9:38 AM EDT us Unknown Unknown IMG ECG ORDERABLES Final Result * CALCULI (STONE) ANALYSIS - REF LAB (01/02/2020 3:31 PM EDT) Calculi Comp See Note 01/06/2020 9:39 AM EDT [employer] Comment: Calculi composed primarily of: 80% calcium [...] composition determined by FTIR analysis. Performed By: [employer] [address] [place] [address] Slab Worker: Lobo Aguilar MD, MS Calculi Mass 37 mg 01/06/2020 9:39 AM EDT [employer] Calculi Number Numerous 01/06/2020 9:39 AM EDT [employer] Calculi Size 1 to 4 mm 01/06/2020 9:39 AM EDT [employer] Calculi Desc See Note 01/06/2020 9:39 AM EDT [employer] Comment: Specimen received in a wet gel substance, not the preferred dry state. Wet specimens often delay analysis. Specimen consists of numerous, small, brown/brown, irregular calculi fragments. [employer] STRUCTURE OF RIGHT URETERAL ORIFICE / Unknown 01/02/2020 3:31 PM EDT 01/02/2020 4:08 PM EDT us Amari Wheeler MD MICROBIOLOGY - GENERAL ORDERABLE S Final Result [employer] [address], [place] [id number] * INTRAOP AIRWAY PLACEMENT (01/02/2020 3:02 PM EDT) Narrative [facility] - 01/02/2020 3:02 PM EDT Barber Oates CRNA 01/02/2020 3:02 PM Intraop Airway Placement: Induction type: IV Mask size: Standard adult Pre-Oxygenation: Standard Mask ventilation: Not attempted Airway type: LMA Device size: 4 Placement verified: End tidal CO2 Condition: Atraumatic and Unchanged Insertion attempts: 1 Attempt 1 by: TH Title: FIELD ARTILLERY SENIOR SERGEANT London Cheng MD [place] ANESTHESIA Final Result Performing Organization Address [facility] Co de Phone Number [facility] [address] [place] [address] * CORONAVIRUS 2019 (12/29/2019 10:03 AM EDT) Only the most recent of2 resultswithin the time period is included. [facility] CORONAVIRUS [id number] Not Detected Not Detected 12/29/2019 11:33 PM EDT [employer] Comment:Caution should be ex ercised when interpreting [...] AM EDT 12/29/2019 10:03 AM EDT Narrative [employer] - 12/29/2019 11:33 PM EDT This test is a nucleic acid amplification test intended for the qualitative detection of nucleic acid from the SARS-CoV-2 in upper respiratory samples collected from individuals suspected of COVID-19. Test is performed on the [employer] platform under the FDA's Emergency Use Authorization (EUA). YES.TAP Provider Fact Sheet: https://www.fda.gov/media/123677/download YES.TAP Patient Fact Sheet: https://www.fda.gov/media/547526/download Amari Wheeler MD MICROBIOLOGY - GENERAL ORDERABLE S Final Result [employer] [address] [facility] , [place] [address] * XR ABDOMEN AP (12/05/2019 11:18 AM [...] R82.79-Other abnormal findings on microbiological examination of uledp-IZH-27-CM E78.00-Pure hypercholesterolemia, gwtmjvjrkqg-PEM-40-CM COMPARISON: CT 10/31/2019 PROCEDURE COMMENTS: AP view(s) of the abdomen per protocol. FINDINGS: Right ureteral stent in place. Stone or cluster of stones inferior pole right kidney measuring 11 mm stable. No stones along the course of the stent. No left-sided calculi evident. Bowel gas pattern nonspecific. Procedure Note Umnag Louie MD - 12/05/2019 CR, ABDOMEN AP, 12/05/2019 11:18 AM CLINICAL HISTORY: R82.79-Other abnormal findings on microbiologicalexamination of ypiof-SIN-67-CM E78.00-Pure hypercholesterolemia, gjttaofvheq-IVG-55-CM COMPARISON: CT 10/31/2019 PROCEDURE COMMENTS: AP view(s) [...] is no charge from [facility]. Refer to OpNote for Report. Amari Wheeler MD IMG FLUOROSCOPY ORDERABLES Final Result Performing Organization Address [facility] Co de Phone Number PACS * INTRAOP AIRWAY PLACEMENT (11/28/2019 12:56 PM EDT) Narrative [facility] - 11/28/2019 12:56 PM EDT Rachael [...] Atraumatic and Unchanged Insertion attempts: 1 Title: FIELD ARTILLERY SENIOR SERGEANT Raghav Nolan MD [place] ANESTHESIA Final Re sult Performing Organization Address [facility] Co de Phone Number [facility] [address] [place] [address] * CT ABDOMEN PELVIS WO ORAL OR [...] - 192 U/L 10/31/2019 1:[address] [facility] Blood VENOUS BLOOD / Unknown Venipuncture / Unknown 10/30/2019 11:58 PM EDT 10/31/2019 12:03 AM EDT us Jorge Luis Sharif MD CHEMISTRY ORDERABLES Final Result [facility] [address] [facility] [place] [address] * PATHOLOGY TISSUE REQUEST (10/26/2019 10:49 AM EDT) CASE REPORT Surgical Pathology Case: [id number] Authorizing Provider: Amari Wheeler MD Collected: 10/26/2019 1049 Ordering Location: [facility] Received: 10/26/2019 1235 Pathologist: Albina Reilly MD Specimen: Bladder, Urinary, bladder biopsy 10/28/2019 3:18 PM EDT [facility] FINAL DIAGNOSIS Urinary bladder, biopsy: - Urothelial mucosa with acute and chronic inflammation, and reactive atypia. - Negative for malignancy. 10/28/2019 3:18 PM EDT [facility] at 1518 EDT COMMENT 10/28/2019 3:18 PM EDT [facility] GROSS DESCRIPTION Received in formalin, labeled with the patient's name and bladder biopsy is a 0.3 cm in greatest dimension brown-white tissue fragment which is submitted in toto in one cassette. /TE 10/28/2019 3:[address] [facility] MICROSCOPIC DESCRIPTION Microscopic examination is performed and the findings corroborate the diagnosis. CK 20 immunostain is negative. P53 immunostain shows patchy positivity of basal cells. The immunostains profile supports the diagnosis. 10/28/2019 3:18 PM EDT [facility] SPECIAL STAINS All controls show appropriate reactivity. ASR: Some of the immunohistochemical stains were developed and their performance characteristics determined by [facility]. They have not been cleared or approved [...] clinical laboratory testing. 10/28/2019 3:18 PM EDT [facility] EMBEDDED IMAGES 10/28/2019 3:18 PM EDT [facility] Tissue URINARY BLADDER STRUCTURE / Unknown 10/26/2019 10:49 AM EDT 10/26/2019 12:35 PM EDT us Amari Wheeler MD PATHOLOGY ORDERABLES Final Resul t [facility] [address] [place] [address] [facility] [address] [place] [address] * INTRAOP AIRWAY PLACEMENT (10/26/2019 10:32 AM EDT) Narrative [facility] - 10/26/2019 10:32 AM EDT Dwaine Dykes CRNA 10/26/2019 10:42 AM Intraop Airway Placement: Date/Time: 10/26/2019 10:32 AM Induction type: IV Airway type: Nasal cannula salter us Michelle Tucker MD [place] ANESTHESIA Edited Result - Final Performing Organization Address [facility] Co de Phone Number [facility] [address] [place] [address] * CORONAVIRUS 2019 (COVID-19) - REF LAB (10/21/2019 9:52 AM EDT) CORONAVIRUS [id number] NON-DETEC ARNOLD NON-DETEC ARNOLD 10/22/2019 11:54 PM [...] developed and performance characteristics are determined by [employer] It has not been cleared nor approved by the FDA. The laboratory is accredited through CLIA and deemed qualified to perform high-complexity testing. Such testing is used for clinical purposes and should not be regarded as investigational or for research. [facility] Pat ID: [id number]; [facility] Req Num: [id number]; [facility] Spec ID: [id number] Amari Wheeler MD LAB SEND OUT ORDERABLES Final Re sult [facility] [address] [place] [address], [place] [phone] * CT ABDOMEN PELVIS HEMATURIA/RENAL MASS PROTOCOL [...] HISTORY: Hematuria. N39.0-Urinary tract infection, site not rhrwzsvpx-VIH-97-CM R39.14-Feeling of incomplete bladder uuyzbyol-FRI-60-CM COMPARISON: None. PROCEDURE COMMENTS: Multi-detector volumetric scanning [...] HISTORY: Hematuria. N39.0-Urinary tract infection, site not dznfbhabt-NMB-11-CM R39.14-Feeling of incomplete bladder ymrfxatq-NCC-41-CM COMPARISON: None. PROCEDURE COMMENTS: Multi-detector volumetric scanning [...] - 1.3 mg/dL 07/22/2019 9:49 AM EDT [facility] Blood BLOOD SPECIMEN / Unknown 07/22/2019 9:48 AM EDT 07/22/2019 9:49 AM EDT Amari Wheeler MD POINT OF CARE TEST ORDERAB[place] [address] * NON-SALESPERSON WIGS CYTOLOGY REQUEST (07/20/2019 2:53 PM EDT) CASE REPORT Non-gynecologi c Cytology Case: [id number] Authorizing Provider: Amari Wheeler MD Collected: 07/20/2019 1453 Ordering Location: [facility] U[facility] Received: 07/20/2019 1453 Pathologist: Albina Reilly MD Specimen: Bladder, Urinary 07/21/2019 2:09 PM EDT [facility] NON-SALESPERSON WIGS CYTOLOGY FINAL DIAGNOSIS Urinary bladder washing: - Negative for high grade urothelial carcinoma. - Benign urothelial cells and abundant acute inflammation. 07/21/2019 2:[address] [facility] at 1409 EDT EMBEDDED IMAGES 07/21/2019 2:[address] [facility] MICROSCOPIC DESCRIPTION Microscopic examination is performed and the findings corroborate the diagnosis. 07/21/2019 2:09 PM EDT [facility] GROSS DESCRIPTION Urine, Bladder,Rec'd 90ml Momin fluid.(TP) 07/21/2019 2:09 PM EDT [facility] Urine URINARY BLADDER STRUCTURE / Unknown 07/20/2019 2:53 PM EDT 07/20/2019 2:53 PM EDT us Amari Wheeler MD CYTOLOGY ORDERABLES Final Result [facility] [address] [place] [address] * POCT BLADDER SCAN (07/20/2019 11:37 AM [...] SEP OFFICE Ketones, UA neg POS/NEG SEP software product manager Grav, UA 1.025 1.001 - 1.035 G/DL [...] ORDERABLES Fi nal Result Performing Organization Address [facility] de Phone Number SEP OFFICE * INTRAOP AIRWAY PLACEMENT (03/14/2019 9:37 AM EST) Narrative [facility] - 03/14/2019 9:37 AM EST Rose Gooden, FIELD ARTILLERY SENIOR SERGEANT 03/14/2019 9:37 AM Intraop Airway Placement: Airway type: Nasal cannula salter Rose Gooden FIELD ARTILLERY SENIOR SERGEANT [place] ANESTHESIA F inal Result Performing Organization Address [facility] de Phone Number [facility] [address] [place] [address] * INTRAOP AIRWAY PLACEMENT (02/28/2019 9:46 AM EDT) Narrative [facility] - 02/28/2019 9:46 AM EDT Rose Gooden, FIELD ARTILLERY SENIOR SERGEANT 02/28/2019 9:46 AM Intraop Airway Placement: Airway type: Nasal cannula salter Lexi Golden MD [place] ANESTHESIA Final R esult Performing Organization Address [facility] de Phone Number [facility] [address] [place] [address] * DX BONE DENSITY AXIAL SKELETON (02/10/2019 11:38 AM EDT) Anatomical Region Laterality Modality Dexa Scan 02/10/2019 Narrative 02/10/2019 2:04 PM EDT Indication: The patient is a female age 65 or older who requires a bone density assessment. Study was performed on Third Age 5. Bone Density: Region BMD T-score Z-score [...] - 15.7 g/dL 12/31/2018 7:01 AM EDT [facility] Hct 36.7 34.0 - 45.0 % 12/31/2018 7:01 AM EDT [facility] Blood Venipuncture / Unknown 12/31/2018 6:42 AM EDT 12/31/2018 6:51 AM EDT Bruce Oh MD HEMATOLOGY ORDERABLES Final Result [facility] [address] [facility] , [place] [address] * XR KNEE LEFT AP AND LATERAL [...] AIRWAY PLACEMENT (12/28/2018 2:56 PM EDT) Narrative [facility] - 12/28/2018 2:56 PM EDT Noelle [...] patient being edentulous. us Jonathan Holland MD [place] ANESTHESIA Edited [facility] [address] [place] [id number] * Peripheral Block by Anesthesia (12/28/2018 1:34 PM EDT) Narrative [facility] - 12/28/2018 1:34 PM EDT Marisol [...] ORDERABLES Final Resu lt Performing Organization Address [facility] Co de Phone Number [facility] [address] [place] [address] * BB HISTORY CHECK (12/15/2018 9:33 AM EDT) BB HISTORY CHECK (1) Previous History OK 12/15/2018 9:56 AM EDT [facility] Blood VENOUS BLOOD / Unknown Venipuncture / Unknown 12/15/2018 9:33 AM EDT 12/15/2018 9:40 AM EDT Bruce Oh MD BLOOD BANK ORDERABLES Final Result Performing Organization Address [facility] Co de Phone Number [facility] [address] [place] [address] * SURGERY DATE (12/15/2018 9:33 AM EDT) Surgery Date (1) Complete 12/15/2018 9:57 AM EDT [facility] Blood VENOUS BLOOD / Unknown Venipuncture / Unknown 12/15/2018 9:33 AM EDT 12/15/2018 9:40 AM EDT Bruce Oh MD BLOOD BANK ORDERABLES Final Result Performing Organization Address [facility] Co de Phone Number [facility] [address] [place] [address] * ABORH (12/15/2018 9:33 AM EDT) Only the most recent of2 resultswithin the time period is included. ABORH Int O POS 12/15/2018 11:27 AM EDT [facility] Blood VENOUS BLOOD / Unknown Venipuncture / Unknown 12/15/2018 9:33 AM EDT 12/15/2018 9:40 AM EDT Bruce Oh MD BLOOD BANK ORDERABLES Final Result Performing Organization Address [facility] Co de Phone Number [facility] [address] [place] [address] * PT / INR (12/15/2018 9:33 AM EDT) Only the most recent of2 resultswithin the time period is included. Pathologist [facility] PT 11.4 9.7 - 12.5 second(s) 12/15/2018 10:01 AM EDT [employer] INR 1.01 0.86 - 1.10 no units 12/15/2018 10:01 AM EDT [employer] Comment: Level of Therapy Indications Target INR Range Standard Dose Treatment and prophylaxis of venous 2.0 - 3.0 thrombosis, pulmonary embolism High Dose High risk patients with mechanical 2.5 - 3.5 heart valves Blood VENOUS BLOOD / Unknown Venipuncture / Unknown 12/15/2018 9:33 AM EDT 12/15/2018 9:40 AM EDT Bruce Oh MD HEMATOLOGY ORDERABLES Final Result Performing Organization Address [facility]/ZIP Co de Phone Number [employer] [address] [facility], [place] [address] * ANTIBODY SCREEN IGG (12/15/2018 9:33 AM EDT) Only the most recent of2 resultswithin the time period is included. ABSC IgG Int Negative 12/15/2018 11:03 AM EDT [facility] Blood VENOUS BLOOD / Unknown Venipuncture / Unknown 12/15/2018 9:33 AM EDT 12/15/2018 9:40 AM EDT us Bruce Oh MD BLOOD BANK ORDERABLES Final Result [facility] [address] [place] [address] [place] [id number] * MM MOBILE MAMMO DIGITAL SCREEN W CAD ZEB (10/15/2018 8:41 AM EDT) Only the most recent of2 resultswithin the time period is included. Anatomical Region Laterality Modality Breast Mammography 10/18/2018 7:37 AM EDT Impressions 10/18/2018 7:37 AM EDT Negative (ZKW-Ptgfhaaf-5) ~ RECOMMENDATION: Routine screening mammogram in 1 [...] for screening mammogram for malignant neoplasm of atolfd-CZI-51-CM ~ MM MOBILE MAMMO DIGITAL SCREEN W [...] for screening mammogram for malignant neoplasm of emrcpz-AEC-74-CM ~ MM MOBILE MAMMO DIGITAL SCREEN W CAD ZEB Bilateral CC and MLO view(s) were taken. There are scattered fibroglandular densities. Prior study comparison: Compared with prior studies the most recentbeing 09/14/17, 10/07/13 No mammographic evidence of malignancy. ~ IMPRESSION: Negative (VJI-Ypspagjy-5) ~ RECOMMENDATION: Routine screening mammogram in 1 [...] e Non-Reacti ve 10/13/2017 6:45 PM EDT [facility] Blood VENOUS BLOOD / Unknown Venipuncture / Unknown 10/13/2017 8:26 AM EDT 10/13/2017 8:26 AM EDT Mann Irene MD HEMATOLOGY ORDERABLES Final Re sult [facility] [employer] [address] [place] [address] , [facility] [address] * POCT INFLUENZA A/B (07/30/2015 12:16 PM EDT) Influenza A Ag neg SEP OFFICE Influenza B Ag neg SEP OFFICE Lot Number SEP OFFICE Expiration Date SEP OFFICE 07/30/2015 12:1 6 PM EDT Mann Irene MD POINT OF CARE TEST ORDERABLES Final Result SEP OFFICE * URIC ACID (03/02/2015 3:22 PM EDT) Uric Acid 4.6 2.4 - 5.7 mg/dL [facility] Blood specimen (specimen) UPPER LIMB STRUCTURE / Unknown 03/02/2015 3:22 PM EDT 03/02/2015 9:30 PM EDT us Stefania Braun MD CHEMISTRY ORDERABLE S Final Result Performing Organization Address [facility] Co de Phone Number [facility] [address] [place] [address] * LDL, CALCULATED (09/01/2014 9:01 AM EDT) Only the most recent of3 resultswithin the time period is included. [facility] LDL Calculated 89 <=100 mg/dL [facility] Comment: < 100 Optimal 100 - 129 Near or above optimal 130 - 159 Borderline High 160 - 189 High >= 190 Very High Blood specimen (specimen) 09/01/2014 9:01 AM EDT 09/01/2014 7:00 PM EDT us Mann Irene MD CHEMISTRY ORDERABLES Final Res ult Performing Organization Address [facility] de Phone Number [facility] [address] [place] [address] * LIPID PANEL REFLEX (09/01/2014 9:01 AM EDT) Only the most recent of3 resultswithin the time period is included. [facility] Cholesterol 148 <=200 mg/dL [facility] Comment: < 200 Desirable 200 - 239 Borderline High >= 240 High Triglyceride 77 <=150 mg/dL [facility] Comment: < 150 Normal 150 - 199 Borderline High 200 - 499 High >= 500 Very High HDL 44 >=40 mg/dL [facility] Comment: > 60 Optimal 40 - 60 Acceptable < 40 Low Blood specimen (specimen) UPPER LIMB STRUCTURE / Unknown 09/01/2014 9:01 AM EDT 09/01/2014 7:00 PM EDT us Mann Irene MD CHEMISTRY ORDERABLES Edited Re sult - Final Performing Organization Address [facility] de Phone Number [facility] [address] [place] [address] * DIFFERENTIAL (09/01/2014 9:01 AM EDT) Only the most recent of3 resultswithin the time period is included. [facility] Neut Percent 60.7 % [facility] Lymph Percent 27.1 % [facility] [place] Percent 6.4 % [facility] Eos Percent 4.8 % [facility] Baso Percent 1.0 % [facility] Neut# 5.0 1.8 - 7.7 x10(3)/mcL [facility] Lymph# 2.2 0.6 - 4.8 x10(3)/mcL [facility] [place]# 0.5 0.0 - 1.3 x10(3)/[facility] Eos# 0.4 0.0 - 0.5 x10(3)/[facility] Baso# 0.1 0.0 - 0.2 x10(3)/[facility] Blood specimen (specimen) 09/01/2014 9:01 AM EDT 09/01/2014 7:00 PM EDT Mann Irene MD HEMATOLOGY ORDERABLES Final Re sult Performing Organization Address [facility]/[place] [address] * GMED COLONOSCOPY (07/10/2014 12:00 PM EST) 07/10/2014 12:[address] [facility] - 07/10/2014 12:20 PM EST Polyp (3 mm) in the distal sigmoid colon. (Polypectomy). Plan: Follow-up as needed This section is an excerpt of the full report. Edil Mann MD GI PROCEDURE ORDERABLES Fin al Result Performing Organization Address [facility] [place] [address] * PATHOLOGY TISSUE REPORT (07/10/2014 12:00 PM EST) Pathologist [facility] Surgical Pathology Report PATIENT NAME:STELLA HYLTON Surgical Pathology Report Accession Number Collected Date/Time Received Date/Time [id number] 07/10/14 12:00 EST 07/10/14 21:39 EST Diagnosis [...] performed and the findings corroborate the diagnosis. [facility] 07/10/2014 12:0 0 PM EST us Edil Mann MD PATHOLOGY ORDERABLES Final Result [facility] [address] [place] [address] * SCANNED PRE/POST PROCEDURES (02/23/2014 10:17 AM [...] spots from right ANANTH. Bruce Oh MD [facility] ORDER LILLIAN Final Result * STAPHYLOCOCCUS AUREUS SCREEN (02/09/2014 8:40 AM EDT) Final No growth of Staphylococcus aureus [facility] Specimen from nose (specimen) 02/09/2014 8:40 AM EDT 02/09/2014 9:54 AM EDT Bruce Oh MD MICROBIOLOGY - GENERAL ORDER LILLIAN Final Result [facility] [address] [place] [address] * PARTIAL THROMBOPLASTIN TIME (02/09/2014 8:40 AM EDT) PTT 30.8 25.6 - 35.5 second(s) [facility] Comment: Therapeutic range for direct thrombin [...] HEMATOLOGY ORDERABLES Final Result Performing Organization Address City/State/[facility] Co de Phone Number [facility] [address] [place] [address] * MRI FEMUR RIGHT WO CONTRAST (12/21/2013 [...] 16, 2013 01:48:57 PM Clinical: 729.5-Pain in kqnq-SCC-5-CM COMPARISONS: None. FINDINGS: There are no acute or healing fractures in the right femur. 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 The surrounding soft tissues are normal. Procedure Note Chasity Marie MD - 12/16/2013 XR FEMUR RIGHT AP AND LATERAL Dec 16, 2013 01:48:57 PM Clinical: 729.5-Pain in qlqi-HHI-5-CM COMPARISONS: None. FINDINGS: There are no acute [...] Impressions 10/11/2013 9:06 AM EDT : Negative ([id number]) ~ RECOMMENDATION: Routine screening mammogram in 1 [...] architecturaldistortion in either breast. ~ IMPRESSION: Negative ([id number]) ~ RECOMMENDATION: Routine screening mammogram in 1 [...] specimen (specimen) 03/18/2013 3:15 PM EST Result [facility] Mann Irene MD POINT OF CARE TEST [...] towards the L4-L5disc. us Elza Bautista MD [facility] ORDERAB LES Final Result * [...] Hip fracture, unspecified laterality, closed, initial encounter ([facility]) 12/22/2013 Dysuria 01/16/2014 Dysuria 01/16/2014 UTI (urinary [...] [facility] MICHELLE to have help getting new [place] plan by end of February 2023 General Yes Geraldine Whiteside RN Stay Tobacco Free Lifestyle No Oralia Merida CCMA Care Teams Production Leader Relationship Specialty Start Date End Date Palma Jj DO [place] [phone] PCP - General Family Medicine 07/14/22
== END 2025-04-12 23:59 | disposition home or self-care (01) ==
LOC: RAD 10:16
PROVIDERS: PCP Family Medicine; Visit Provider Physician Assistant
DX: M25.562 Pain in left knee (principal)
CPT/HCPCS: 73562

== ENCOUNTER 2025-05-08 10:51 | Outpatient (CLI) | payer MEDICARE, MEDICAID, SELFPAY ==
--- OUTSIDE RECORDS SUMMARY | 2025-05-03 08:40 | XMS_ITS | Encounter Summary ---
Author Organization [place] [address] Care Team Providers Care Information Manager Name Role Phone Palma Jj DO Primary Care Provider + [phone] Reason for Visit * Reason Comments Hip Pain left hip pain and le g pain Encounter Details Date Type Department Care Team (Late st Contact Info) Description 05/03/2025 8:40 AM EST Office Visit [facility] [address] [place] [address] Palma Jj DO [address] [place], [place] [id number] Medicare annual wellness visit, subsequent (Primary Dx); Diabetes mellitus screening; Hypercholesterolemia; GERD without esophagitis; Essential hypertension; Chronic diastolic (congestive) heart failure (HCC); Exudative age-related macular degeneration of left eye, unspecified stage (HCC); Spinal stenosis of lumbar region without neurogenic claudication; Bilateral numbness and tingling of arms and legs; Age-related osteoporosis without current pathological fracture Social History Tobacco Use Types Packs/Day Years [...] Answer Date Recorded PHQ-2 Total Score 0 05/03/2025 [facility] - Occupational Stress [...] Sign Reading Time Taken Comments Blood Pressure 128/78 05/03/2025 8:45 AM EST Pulse 82 05/03/2025 8:45 AM EST Temperature 36.6 C (97.8 F) 05/03/2025 8:45 AM EST Respiratory Rate 18 05/03/2025 8:45 AM EST Oxygen Saturation 98% 05/03/2025 8:45 AM EST Inhaled Oxygen Concentration - - Weight 67.9 kg (149 lb 12.8 oz) 05/03/2025 8:45 AM EST Height 152.4 cm (5') 05/03/2025 8:45 AM EST Body Mass Index 29.26 05/03/2025 8:45 AM EST documented in this encounter Functional [...] 11/07/2022 8:01 AM Tomi Huggins CCMA * PHQ-9 Total Score Answer Date of Assessment Author 0 05/03/2025 9:02 AM Elver Norman MA * Question Answer Date of Assessment Author Little interest or pleasure in doing things 0 05/03/2025 9:02 AM Julianna Norman MA Feeling down, depressed, or hopeless 0 04/11 9:02 AM Julianna Norman MA PHQ-2 Total Score 0 05/03/2025 9:02 AM Julianna Norman MA * PHQ-2 Total Score Answer Date of Assessment Author 0 05/03/2025 9:02 AM Elver Norman MA documented as of this encounter Mental Status * Because of a physical, mental or emotional condition, does this person have serious difficulty concentrating, remembering or making decisions? Answer Entry Date Author No 11/07/2022 8:01 AM Tomi Huggins CCMA documented in this encounter Ordered Prescriptions Prescription Sig Dispense Quantity Refills Last Filled Start Date End Date meloxicam (MOBIC) 15 mg Oral TabletIndications: Spinal stenosis of lumbar region without neurogenic claudication Take 1 Tablet by mouth daily. 90 Tablet 2 05/03/2025 nortriptyline (PAMELOR) 25 mg Oral CapsuleIndications :Bilateral numbness and tingling of arms and legs TAKE 1 CAPSULE BY MOUTH EVERY MORNING AND 1 CAPSULE AT DINNER 180 Capsule 1 05/03/2025 lisinopriL (PRINIVIL;ZESTRIL) 20 mg Oral Tablet tabletIndications: Essential hypertension Take 1 Tablet by mouth daily. 90 Tablet 3 05/03/2025 6 famotidine (PEPCID) 40 mg Oral TabletIndications: GERD without esophagitis Take 1 Tablet by mouth 2 times daily. 180 Tablet 3 05/03/2025 atorvastatin (LIPITOR) 20 mg Oral TabletIndications: Hypercholesterolem ia Take 1 Tablet by mouth daily. 90 Tablet 3 05/03/2025 6 amLODIPine (NORVASC) 5 mg Oral TabletIndications: Essential hypertension Take 1 Tablet by mouth daily. for blood pressure 90 Tablet 3 05/03/2025 documented in this encounter Progress Notes * Palma Jj DO - 05/03/2025 9:41 AM ESTAssociated Problem(s): Exudative age-related macular degeneration of left eye (HCC) Recommend continue follow up with ophthalmology * Palma Jj DO - 05/03/2025 9:41 AM ESTAssociated Problem(s): Chronic diastolic (congestive) heart failure (HCC) Stable Continue current management * Palma Jj DO - 05/03/2025 8:40 AM EST Assessment Diagnoses and all orders for this visit: Medicare annual wellness visit, subsequent Hypercholesterolemia - atorvastatin (LIPITOR) 20 mg Oral Tablet; Take 1 Tablet by mouth daily. Dispense: 90 Tablet; Refill: 3 - LIPID PANEL REFLEX; Future GERD without esophagitis - famotidine (PEPCID) 40 mg Oral Tablet; Take 1 Tablet by mouth 2 times daily. Dispense: 180 Tablet; Refill: 3 Essential hypertension - amLODIPine (NORVASC) 5 mg Oral Tablet; Take 1 Tablet by mouth daily. for blood pressure Dispense:90 Tablet; Refill: 3 - lisinopriL (PRINIVIL;ZESTRIL) 20 mg Oral Tablet tablet; Take 1 Tablet by mouth daily. Dispense: 90 Tablet; Refill: 3 - CBC WITH DIFF; Future - COMPREHENSIVE METABOLIC PANEL; Future Spinal stenosis of lumbar region, unspecified whether neurogenic claudication present - nortriptyline (PAMELOR) 25 mg Oral Capsule; TAKE 1 CAPSULE BY MOUTH EVERY MORNING AND 1 CAPSULE AT DINNER Dispense: 180 Capsule; Refill: 1 - meloxicam (MOBIC) 15 mg Oral Tablet; Take 1 Tablet by mouth daily. Dispense: 90 Tablet; Refill: 2 DDD (degenerative disc disease), lumbar - nortriptyline (PAMELOR) 25 mg Oral Capsule; TAKE 1 CAPSULE BY MOUTH EVERY MORNING AND 1 CAPSULE AT DINNER Dispense: 180 Capsule; Refill: 1 - meloxicam (MOBIC) 15 mg Oral Tablet; Take 1 Tablet by mouth daily. Dispense: 90 Tablet; Refill: 2 Osteoporosis, unspecified osteoporosis type, unspecified pathological fracture presence - nortriptyline (PAMELOR) 25 mg Oral Capsule; TAKE 1 CAPSULE BY MOUTH EVERY MORNING AND 1 CAPSULE AT DINNER Dispense: 180 Capsule; Refill: 1 - meloxicam (MOBIC) 15 mg Oral Tablet; Take 1 Tablet by mouth daily. Dispense: 90 Tablet; Refill: 2 Neuroforaminal stenosis of lumbar spine - nortriptyline (PAMELOR) 25 mg Oral Capsule; TAKE 1 CAPSULE BY MOUTH EVERY MORNING AND 1 CAPSULE AT DINNER Dispense: 180 Capsule; Refill: 1 - meloxicam (MOBIC) 15 mg Oral Tablet; Take 1 Tablet by mouth daily. Dispense: 90 Tablet; Refill: 2 Lumbar pain - nortriptyline (PAMELOR) 25 mg Oral Capsule; TAKE 1 CAPSULE BY MOUTH EVERY MORNING AND 1 CAPSULE AT DINNER Dispense: 180 Capsule; Refill: 1 - meloxicam (MOBIC) 15 mg Oral Tablet; Take 1 Tablet by mouth daily. Dispense: 90 Tablet; Refill: 2 Right sided sciatica - nortriptyline (PAMELOR) 25 mg Oral Capsule; TAKE 1 CAPSULE BY MOUTH EVERY MORNING AND 1 CAPSULE AT DINNER Dispense: 180 Capsule; Refill: 1 - meloxicam (MOBIC) 15 mg Oral Tablet; Take 1 Tablet by mouth daily. Dispense: 90 Tablet; Refill: 2 Screening cholesterol level - LIPID PANEL REFLEX; Future Diabetes mellitus screening - HEMOGLOBIN A1C; Future Vitamin D deficiency - VITAMIN D 25 HYDROXY; Future Bilateral numbness and tingling of arms and legs - VITAMIN B12 LEVEL; Future Chronic diastolic (congestive) heart failure (HCC) (Chronic) [...] pressure is 31 mmHg Assessment & Plan: Stable Continue current management Exudative age-related macular degeneration of left eye, unspecified stage (HCC) (Chronic) Overview: Follows with audit specialist Assessment & Plan: Recommend continue follow up with ophthalmology Palma Jj, Family Medicine 05/03/2025 Vitals: 05/03/25 0845 BP: 128/78 Pulse: 82 Resp: 18 Temp: 97.8 ??F (36.6 ??C) TempSrc: Temporal SpO2: 98% Weight: 149 lb 12.8 oz (67.9 kg) Height: 5' (1.524 m) SUBJECTIVE: Chief Complaint Patient presents with Hip Pain left hip pain and leg pain Ms. Tavarez is a 79 y.o. female here for an Subsequent Annual [...] and with a gait steady?: Yes (In Office Assessment Only): TUG test: Time patient going from sitting to standing, walk 10 feet, return to chair and sit. Record time. : Less or equal to 12 seconds Functional Status Assessment Functional Level: self care Functional Mobility Assessment: independent w/o assist device Assessment of transportation needs: (!) dependent on other/public transportation Functional Activities of Daily Living Limitations: No issues Activities of Daily Living Assistive Device Assessment Assistive Devices: Cane (sometimes) Osteoporosis Screening Assessment Has the patient had a DEXA (Bone Density) scan in the past 2 years?: (!) No Results for orders placed during the hospital encounter of 02/10/19 DX BONE DENSITY AXIAL SKELETON Narrative Indication: The patient is a female age 65 or older who requires a bone density assessment. Study was performed on [employer]. Bone Density: Region BMD T-score Z-score Femoral [...] No results found for this visit on 05/03/25. Problem List[1] Past Medical History[2] Surgical History[3] Allergies[4] Current Outpatient Medications on File Prior to Visit Medication Sig Dispense Refill aspirin 81 mg Oral Tablet, Delayed Release (E.C.) Take 1 Tablet by mouth every morning. 90 Tablet 2 ergocalciferol (ISDOL) 1,250 mcg (50,000 unit) Oral Capsule TAKE 1 CAPSULE IN THE MORNING EVERY THU 12 Capsule 2 gabapentin (NEURONTIN) 300 mg Oral Capsule Take 1 Capsule by mouth nightly. 30 Capsule 2 No current facility-administered medications on file prior to visit. Social History[5] Family History[6] Immunization History Administered Date(s) Administered Influenza High Dose 02/21/2015, 02/09/2016, 01/06/2017, 02/21/2019, 01/28/2020, 01/13/2024 Influenza Vaccine Quadrivalent Adjuvanted 01/28/2020, 03/29/2022 Influenza Vaccine, Unspecified Formulation 02/04/2014, 02/09/2016 Moderna SARS-CoV-2 Bivalent Booster Vaccine 12+ Years ([place] Border) 02/10/2022, 11/12/2022 Moderna SARS-CoV-2 Vaccine 12+ Yrs (Light blue border) 07/03/2020, 07/31/2020 PPD Test 02/20/2014 Pfizer SARS-CoV-2 Vaccine Joe-sucrose 12+ Yrs 08/06/2023, 01/20/2025 Pneumococcal Conjugate Vaccine 13 Valent 02/28/2015 Pneumococcal Polysaccharide 23 Valent 10/13/2012 Quadrivalent Influenza High Dose 02/05/2021 TST,Unspecified Formulation 12/31/2018, 01/07/2019 Tdap 02/28/2015 Zoster Recombinant 01/13/2024, 04/15/2024 Health Maintenance Topic Date Due RSV or 60+ (1 - 1-dose 75+ series) Never done DTaP/TDaP/Td (2 - Td or Tdap) 02/28/2025 COVID-19 Vaccine (2024- season) 2025 Wellness Exam Medicare 05/04/2026 Influenza Vaccine Completed Bone Density Screening Completed Zoster Completed Hepatitis C Screening Completed Pneumococcal Vaccine 50+ Completed Meningococcal B Vaccine Aged Out Hepatitis B Vaccine Aged Out Colon Cancer Screening Discontinued Health Maintenance Due Topic Date Due RSV or 60+ (1 - 1-dose 75+ series) Never done DTaP/TDaP/Td (2 - Td or Tdap) 02/28/2025 Patient Care Team: Palma Jj DO as PCP - General (Family Medicine) Additional issues addressed today: Reports some tingling in her hands and feet over past several weeks. Review of Systems All other systems reviewed and are negative. OBJECTIVE: Physical Exam Vitals reviewed. Constitutional: General: She is not in acute distress. Appearance: Normal appearance. She is not ill-appearing. Eyes: Conjunctiva/sclera: Conjunctivae normal. Cardiovascular: Rate and Rhythm: Normal rate. Pulmonary: Effort: Pulmonary effort is normal. Neurological: Mental Status: She is alert. Psychiatric: Mood and Affect: Mood normal. Behavior: Behavior normal. [1] Patient Active Problem List Diagnosis Hypercholesterolemia OA [...] ear Chronic diastolic (congestive) heart failure (HCC) Encounter for insertion of prosthetic hip after prior removal of hip prosthesis Encounter for insertion of prosthetic knee after prior removal of knee prosthesis [2] Past Medical History: Diagnosis Date Motion sickness seasick Nephrolithiasis 12/19/2019 Added automatically from request for surgery [id number] Post-operative nausea and vomiting [3] Past Surgical History: Procedure Laterality Date BLADDER TUMOR EXCISION N/A 10/26/2019 cystoscopy, bladder biopsy and fulguration of lesions of bladder; Surgeon: Amari Wheeler MD; Location: [facility]; Service: Urology CATARACT REMOVAL Right 02/28/2019 RIGHT EYE CATARACT EXTRACTION WITH PHACOEMULSIFICATION AND INTRAOCULAR LENS; Surgeon: Conor Ramirez MD; Location: [facility]; Service: Ophthalmology CATARACT REMOVAL Left 03/14/2019 LEFT EYE CATARACT EXTRACTION WITH PHACOEMULSIFICATION AND INTRAOCULAR LENS; Surgeon: Conor Ramirez MD; Location: [facility]; Service: Ophthalmology COLONOSCOPY CYSTOSCOPY Right 11/28/2019 cystoscopy right stent placement, right extracorporeal shock wave lithotripsy; Surgeon: Dinh Wheeler MD; Location: [facility]; Service: Urology HEMORRHOID SURGERY [...] MD; Location: [facility]; Service: Urology [4] Allergies Allergen Reactions Celecoxib Rash Cameron Rash [5] Social History Socioeconomic History Marital status: Spouse name: None Number of children: None Years of education: None Highest education level: None Tobacco Use Smoking status: Former Current packs/day: 0.00 Average packs/day: 0.5 packs/day for 5.0 years (2.5 ttl pk-yrs) Types: Cigarettes Start date: 1989 Quit date: 1994 Years since quittin.0 Passive exposure: Never Smokeless tobacco: Never Tobacco comments: quit in 1998 Vaping Use Vaping status: Never Used Substance and Sexual Activity Alcohol use: No Drug use: No Social Drivers of Health Financial Resource Strain: [...] Yes Stress: No Stress Concern Present (11/07/2022) [facility] [place] - Occupational Stress Questionnaire Feeling of Stress : Only a little Housing Stability: Low Risk (11/12/2022) Housing Stability Vital Sign Unable to Pay for Housing in the Last Year: No Number of Places Lived in the Last Year: 1 Unstable Housing in the Last Year: No [6] Family History Problem Relation Age of Onset Early Father accident Early Sister Substance Abuse Sister Early Brother accident Early Mother accident Anesth Problems Neg Hx * Jill Beck - 05/03/2025 8:40 AM EST Venipuncture in the right antecubital vein with 21 gauge needle, length 1 1/2 inch. documented in this encounter Miscellaneous Notes * Patient Instructions - Palma Jj DO - 05/03/2025 8:40 AM EST Today as part of your Medicare Wellness [...] Health Maintenance Due Topic Date Due ??? RSV or 60+ (1 - 1-dose 75+ series) Never done ??? Wellness Exam Medicare 11/09/2024 ??? DTaP/TDaP/Td (2 - Td or Tdap) 02/28/2025 Some of these topics may have been addressed either during the visit such as fall risk screenings, depression screenings, or others that were completed via questionnaire. Some immunizations may have been updated. These topics will reflect in your [employer] account as completed once your provider closes [...] Author Blood Pressure < 140/90 Blood Pressure 128/78(05/03 8:45 AM EST) No Palma Jj DO Patient will take her blood sugar once a day for a week in the morning, and report the sugars back to provider General On track(2022 10:50 AM EDT) Yes Geraldine Whtieside RN Pay off [facility] by Spring [...] UMA MICHELLE to have help getting new [place] plan by end of February 2023 General Yes Geraldine Whiteside RN Stay Tobacco Free Lifestyle No Oralia Merida CCMA documented as of this encounter Procedures Procedure Name Priority Date/Time Associated Diagnosis Comments LIPID PANEL REFLEX Routine 05/03/2025 9: 13 AM EST Hypercholesterolemia VITAMIN D 25 HYDROXY Routine 05/03/2025 9:13 AM EST Age-related osteoporosis without current pathological fracture CBC WITH DIFF Routine 05/03/2025 9:13 AM EST Essential hypertension HEMOGLOBIN A1C Routine 05/03/2025 9:13 AM EST Diabetes mellitus screening VITAMIN B12 LEVEL Routine 05/03/2025 9:1 3 AM EST Bilateral numbness and tingling of arms and legs COMPREHENSIVE METABOLIC PANEL Routine 05/03/2025 9:13 AM EST Essential hypertension documented in this encounter Results * VITAMIN B12 LEVEL (05/03/2025 9:13 AM EST) Vitamin B12 323 232 - 1,245 pg/mL 05/03/2025 3:17 PM EST [facility] Blood VENOUS BLOOD / Unknown Venipuncture / Unknown 05/03/2025 9:13 AM EST 05/03/2025 9:13 AM EST Narrative [facility], [facility] - 05/03/2025 3:17 PM EST Ingestion of lakshmi doses of biotin (>5 mg/day) taken within 8 hours of drawing blood sample can interfere with this immunoassay test. Palma Jj DO CHEMISTRY ORDERABLES Final [facility] Performing Organization Address [facility] Phone Number [facility] [address] [place] [address] * VITAMIN D 25 HYDROXY (05/03/2025 9:13 AM EST) Pathologist [facility] Vit D 25 OH 49.5 30.0 - 150.0 ng/mL 05/03/2025 3:17 PM EST [facility] Comment: Preferred: >= 30 ng/mL Insufficient: 21-29 ng/mL Deficient <= 20 ng/mL Possible Toxicity: >150 ng/mL Samples should not be taken from patients receiving therapy with high biotin doses (i.e. > 5 mg/day) until at least 8 hours following the last biotin administration. Blood VENOUS BLOOD / Unknown Venipuncture / Unknown 05/03/2025 9:13 AM EST 05/03/2025 9:13 AM EST Palma Jj DO CHEMISTRY ORDERABLES [facility] Performing Organization Address [facility] de Phone Number [facility] [address] [place] [address] * COMPREHENSIVE METABOLIC PANEL (05/03/2025 9:13 AM EST) Pathologist [facility] Sodium 143 136 - 145 mmol/L 05/03/2025 3:02 PM EST [facility] Potassium 3.9 3.5 - 5.0 mmol/L 05/03/2025 3:02 PM EST [facility] Chloride 105 98 - 107 mmol/L 05/03/2025 3:02 PM EST [facility] Total CO2 29 22 - 29 mmol/L 05/03/2025 3:02 PM EST [facility] Anion Gap 9 7 - 16 mmol/L 05/03/2025 3:02 PM EST [facility] Calcium 9.9 8.8 - 10.4 mg/dL 05/03/2025 3:02 PM EST [facility] Glucose Lvl 99 70 - 99 mg/dL 05/03/2025 3:02 PM EST [facility] BUN 15 8 - 23 mg/dL 05/03/2025 3:02 PM EST [facility] Creatinine 0.72 0.51 - 1.30 mg/dL 05/03/2025 3:02 PM EST [facility] Albumin 4.4 3.2 - 4.6 gm/dL 05/03/2025 3:02 PM EST [facility] Total Protein 7.4 6.4 - 8.3 gm/dL 05/03/2025 3:02 PM EST [facility] Bili Total 0.6 0.2 - 1.3 mg/dL 05/03/2025 3:02 PM EST [facility] ALT 11 <=41 U/L 05/03/2025 3:02 PM EST [facility] AST 17 <=40 U/L 05/03/2025 3:02 PM EST [facility] Alk Phos 121 36 - 123 U/L 05/03/2025 3:02 PM EST [facility] eGFR (CKD-EPIcr 2020) 85 >=60 mL/min/1.7 3 m2 05/03/2025 3:02 PM EST [facility] Comment:Estimated GFR was ca lculated using the CKD-EPIcr (2020) equation refit without race. The equation is recommended by the National Kidney Foundation - [place] [employer] of Nephrology Task Force. Blood VENOUS BLOOD / Unknown Venipuncture / Unknown 05/03/2025 9:13 AM EST 05/03/2025 9:13 AM EST us Palma Jj DO CHEMISTRY ORDERABLES Final R esult [facility] [address] [facility] , [place] [address] * (ABNORMAL) CBC WITH DIFF (05/03/2025 9:13 AM EST) WBC 7.5 3.7 - 10.3 x10(3)/mcL 05/03/2025 2:44 PM EST [facility] RBC 4.95 3.90 - 5.20 x10(6)/mcL 05/03/2025 2:44 PM EST [facility] Hgb 14.0 11.2 - 15.7 g/dL 05/03/2025 2:44 PM EST [facility] Hct 45.0 34.0 - 45.0 % 05/03/2025 2:44 PM EST [facility] MCV 90.9 80.0 - 100.0 fL 05/03/2025 2:44 PM EST [facility] MCH 28.3 26.0 - 34.0 pg 05/03/2025 2:44 PM EST [facility] MCHC 31.1 30.7 - 35.5 g/dL 05/03/2025 2:44 PM EST [facility] RDW 14.3 <=14.9 % 05/03/2025 2:44 PM EST [facility] Platelet 301 155 - 369 x10(3)/mcL 05/03/2025 2:44 PM EST [facility] MPV 9.7 8.8 - 12.5 fL 05/03/2025 2:44 PM EST [facility] Neut Percent 39.2 % 05/03/2025 2:44 PM EST [facility] Comment:Neutrophils equals s egs plus bands Imm Gran% 0.1 % 05/03/2025 2:44 PM EST [facility] Comment:Automated count of m etamyelocytes, myelocytes and promyelocytes. Lymph Percent 43.9 % 05/03/2025 2:44 PM EST [facility] [place] Percent 8.1 % 05/03/2025 2:44 PM EST [facility] Eos Percent 8.0 % 05/03/2025 2:44 PM EST [facility] Baso Percent 0.7 % 05/03/2025 2:44 PM EST [facility] Neut # 3.0 1.6 - 6.1 x10(3)/[facility] 05/03/2025 2:44 PM EST [facility] Comment:Neutrophils equals s egs plus bands IMMGRAN# 0.0 0.0 - 0.1 x10(3)/mcL 05/03/2025 2:44 PM EST [facility] Comment:Automated count of m etamyelocytes, myelocytes and promyelocytes. An absolute IG <0.1 is reported as 0.0. Lymph # 3.3 1.2 - 3.9 x10(3)/[facility] 05/03/2025 2:44 PM EST [facility] [place] # 0.6 0.3 - 0.9 x10(3)/[facility] 05/03/2025 2:44 PM EST [facility] Eos# 0.6(H) 0.0 - 0.5 x10(3)/[facility] 05/03/2025 2:44 PM EST [facility] Baso # 0.1 0.0 - 0.1 x10(3)/[facility] 05/03/2025 2:44 PM EST [facility] Blood VENOUS BLOOD / Unknown Venipuncture / Unknown 05/03/2025 9:13 AM EST 05/03/2025 9:13 AM EST Palma Jj DO HEMATOLOGY ORDERABLES Final Result [facility] [address] [facility] , [place] [address] * (ABNORMAL) HEMOGLOBIN A1C (05/03/2025 9:13 AM EST) Hgb A1C 5.9(H) 4.2 - 5.6 % 05/03/2025 3:04 PM EST [facility] Est. Avg Glucose 123 mg/dL 05/03/2025 3:04 PM EST [facility] Blood VENOUS BLOOD / Unknown Venipuncture / Unknown 05/03/2025 9:13 AM EST 05/03/2025 9:13 AM EST Narrative [facility] - 05/03/2025 3:04 PM EST REFERENCE RANGE: Normal: 4.0-5.6% Pre-diabetes: 5.7-6.4% Provisional diagnosis of diabetes: >6.4% Hgb F>10% and anything which shortens red cell survival, such as hemolytic anemia, or unstable hemoglobin variants such as HbSS, HbSC, or HbCC, will lower the HbA1c value associated with a given level of glycemic control. us Palma Jj DO CHEMISTRY ORDERABLES Final R esult [facility] [address] [facility] , [place] [address] * (ABNORMAL) LIPID PANEL REFLEX (05/03/2025 9:13 AM EST) Cholesterol 196 <200 mg/dL 05/03/2025 3:02 PM EST [facility] Comment: < 200 Desirable 200 - 239 Borderline High >= 240 High Triglyceride 95 <150 mg/dL 05/03/2025 3:02 PM EST [facility] Comment: < 150 Normal 150 - 199 Borderline High 200 - 499 High >= 500 Very High HDL 55 >=40 mg/dL 05/03/2025 3:02 PM EST [facility] Comment: > 60 Optimal 40 - 60 Acceptable < 40 Low LDL Calculated 124(H) <100 mg/dL 05/03/2025 3:02 PM EST [facility] Comment: < 100 Optimal 100 - 129 Near or above optimal 130 - 159 Borderline High 160 - 189 High >= 190 Very High The National Institutes of Health (NIH) equation is used for all lipid panels that report calculated LDL (LDL-C). Non-HDL-C Calculated 141(H) <=129 mg/dL 05/03/2025 3:02 PM EST [facility] Comment: <130 Desirable 130-159 Above Desirable 160-189 Borderline High 190-219 High >= 220 Very High Fasting Specimen? Yes None 025 3:02 PM EST [facility] Blood VENOUS BLOOD / Unknown Venipuncture / Unknown 05/03/2025 9:13 AM EST 05/03/2025 9:13 AM EST us Palma Jj DO CHEMISTRY ORDERABLES Final R esult [facility] [address] [facility] , [place] [address] documented in this encounter Visit Diagnoses Diagnosis Medicare annual wellness visit, subsequent- Primary Routine general medical examination at a health care facility Diabetes mellitus screening Screening for diabetes mellitus Hypercholesterolemia Pure hypercholesterolemia GERD without esophagitis Esophageal reflux Essential hypertension Unspecified essential hypertension Chronic diastolic (congestive) heart failure (HCC) Exudative age-related macular degeneration of left eye, unspecified stage (HCC) Spinal stenosis of lumbar region without neurogenic claudication Spinal stenosis, lumbar region, without neurogenic claudication Bilateral numbness and tingling of arms and legs Age-related osteoporosis without current pathological fracture Senile osteoporosis documented in this encounter Discontinued Medications Medication Sig Discontinue Reason Start Date End Da te meloxicam (MOBIC) 15 mg Oral TabletIndications:Osteoa rthritis, unspecified osteoarthritis type, unspecified site Take 1 Tab by mouth daily for 360 days. Medication order 09/11/2017 09/06/2018 lisinopriL (PRINIVIL;ZESTRIL) 20 mg Oral Tablet tabletIndications:Essent ial hypertension Take 1 Tablet by mouth daily for 360 days. Reorder 08/28/2023 05/03/2025 atorvastatin (LIPITOR) 20 mg Oral TabletIndications:Hyperc holesterolemia Take 1 Tablet by mouth daily for 360 days. Reorder 11/11/2023 05/03/2025 meloxicam (MOBIC) 15 mg Oral TabletIndications:Spinal stenosis of lumbar region, unspecified whether neurogenic claudication present,DDD (degenerative disc disease), lumbar,Osteoporosis, unspecified osteoporosis type, unspecified pathological fracture presence,Neuroforaminal stenosis of lumbar spine,Lumbar pain,Right sided sciatica TAKE 1 TABLET EVERY DAY Reorder 03/28/2024 05/03/2025 famotidine (PEPCID) 40 mg Oral TabletIndications:GERD without esophagitis TAKE 1 TABLET BY MOUTH TWICE DAILY Reorder 07/13/2024 05/03/2025 amLODIPine (NORVASC) 5 mg Oral Tablet Take 1 Tablet by mouth daily. for blood pressure Reorder 02/16/2025 05/03/2025 nortriptyline (PAMELOR) 25 mg Oral CapsuleIndications:Spina l stenosis of lumbar region, unspecified whether neurogenic claudication present,DDD (degenerative disc disease), lumbar,Osteoporosis, unspecified osteoporosis type, unspecified pathological fracture presence,Neuroforaminal stenosis of lumbar spine,Lumbar pain,Right sided sciatica TAKE 1 CAPSULE BY MOUTH EVERY MORNING AND 1 CAPSULE AT DINNER Reorder 04/19/2025 05/03/2025 documented as of this encounter Additional Health Concerns Assessment Noted Time A fall risk assessment has been complete d for the patient 05/03/2025 9:03 AM EST documented as of this encounter Care Teams Information Manager Relationship Specialty Start Date End Date Palma Jj DO [employer] [place] [id number] PCP - General Family Medicine 07/14/22 documented as of this encounter
--- OUTSIDE RECORDS SUMMARY | 2025-05-08 10:57 | XMS_ITS | Encounter Summary ---
Author Organization [place] [address] Care Team Providers Care Outpatient Physical Therapist Name Role Phone Mann Irene MD Primary Care Provider [phone] Palma Jj DO Primary Care Provider + [phone] Olesya Estrada SALES ACCOUNT COORDINATOR Unavailable Unava ilable Geraldine Whiteside RN Unavailable Unavailable Encounter Details Date Type Department Care Team (Late st Contact Info) Description 07/10/2014 Orders Only SEP Gastro [facility] [address] [place] [address] Edil Mann MD [address] [place] [address] Social History Tobacco Use Types Packs/Day Years [...] Peguero RN * Does this person have difficulty [...] EST) 07/10/2014 12:0 0 PM EST Impressions [facility] - 07/10/2014 12:20 PM EST Polyp (3 mm) in the distal sigmoid colon. (Polypectomy). Plan: Follow-up as needed This section is an excerpt of the full report. 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
--- OUTSIDE RECORDS SUMMARY | 2025-05-08 10:57 | XMS_ITS | Referral Summary ---
Author Organization [employer] ([place], [place], [place], [place], [place]) Address [address] [place] [address] Care Team Providers Care Electronics Supervisor Name Role Phone Unavailable Primary Care [...] Plan of Treatment Not on file Insurance [facility] MCR ADV DUAL COMPLETE
--- OUTSIDE RECORDS SUMMARY | 2025-05-08 10:57 | XMS_ITS | Clinical Summary ---
Author Organization [employer] ([place], [place], [place], [place], [place]) Address [address] [place] [address] Care Team Providers Care Diamond Merchant Name Role Phone Unavailable Primary Care Provider [...] Shingles Vaccine (Zoster) Completed 04/15/2024, 08/2023 Insurance [facility] MCR ADV DUAL COMPLETE
--- OUTSIDE RECORDS SUMMARY | 2025-05-08 10:57 | XMS_ITS | Clinical Summary ---
Author Organization [facility] Address [address] [place] [address] Care Team Providers Care Acetylene Torch Operator Name Role Phone Unavailable Primary Care [...] therelease of HIV test results or diagnoses. [id number] Social History Tobacco Use Types Packs/Day Years Used Date Smoking Tobacco: Never Assessed Comments Unknown Sex and Gender Information Value Date Recorded Sex Assigned at Not on file Legal Sex Female 4:12 PM EST Gender Identity Not on file Sexual Orientation Not on file Plan of Treatment Not on file
--- OUTSIDE RECORDS SUMMARY | 2025-05-08 10:59 | XMS_ITS | Encounter Summary ---
Author Organization [place] [place] [address] Care Team Providers Care [place] Ma[place] Name Role Phone Palma Jj DO Primary Care Provider + [phone] Encounter Details Date Type Department Care Team (Late st Contact Info) Description 05/05/2025 Results Follow-Up [facility] [address] [place] [address] Palma Jj DO [address] [place] [phone] LIPID PANEL REFLEX, HEMOGLOBIN A1C, CBC WITH DIFF, Additional followed-up results: 3 Social History Tobacco Use Types Packs/Day Years [...] Date Recorded PHQ-2 Total Score 0 05/03/2025 [facility] [place] of Occupat ional [facility] - Occupational Stress Questionnaire Answer Date [...] Entry Date Author No 11/07/2022 8:01 AM CAITT Tomi Slaughter CCMA documented in this encounter [...] UMA MICHELLE to have help getting new [place] plan by end of February 2023 General Yes Geraldine Whiteside RN Stay Tobacco Free Lifestyle No Oralia Merida CCMA documented as of this encounter Visit Diagnoses Not on filedocumented in this encounter Additional Health Concerns Assessment Noted Time A fall risk assessment has been complete d for the patient 05/03/2025 9:03 AM EST documented as of this encounter Care Teams [place] Maori Relationship Specialty Start Date End Date Palma Jj DO [place] [id number] PCP - General Family Medicine 07/14/22 documented as of this encounter
--- OUTSIDE RECORDS SUMMARY | 2025-05-08 10:59 | XMS_ITS | Encounter Summary ---
Author Organization [place] Address [place] [address] Care Team Providers Care Yard Manager Name Role Phone Palma Jj DO Primary Care Provider + [phone] Reason for Visit * Reason Onset Date Comments Patient Returning Call 04/28/2025 Tricia allen urned call - transferred to Julianna at office Encounter Details Date Type Department Care Team (Late st Contact Info) Description 04/28/2025 Telephone [facility] [address] [place] [address] Palma Jj, DO [address] [place], [place] [id number] Patient Returning Call (Tricia returned call - transferred to Julianna at office) Social History Tobacco Use Types Packs/Day Years Used Date Smoking Tobacco: Former Cigarettes 0.5 5 1 0 - 1994 Passive Smoke Exposure: Never Smokeless Tobacco: Never Comments:quit in 1998 Alcohol Use Standard Drinks/Week Comments No 0 (1 standard drink = 0.6 oz pur e alcohol) Overall Financial Resource Strain (CARDIA) Daylin ochoa Date Recorded How hard is it for you to pa y for the very basics like food, housing, medical care, and heating? 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 Asked if she can bring in the legal paperwork for the POA and she said she would Patient has additional questions: No Further action needed: No Additional Information: N/A documented in this encounter Plan of Treatment Not on file documented as of this encounter Goals Goal Patient Goal Type Associated Problems Recent Progress Patient-Stated? Author Blood Pressure < 140/90 Blood Pressure 128/78(05/03 8:45 AM EST) No Palma Jj, DO Patient will take [...] MIGUEL ANGEL to have help getting new [place] plan by end of February 2023 General Yes Geraldine Whiteside RN Stay Tobacco Free Lifestyle No Oralia Merida CCMA documented as of this encounter Visit Diagnoses Not on filedocumented in this encounter Additional Health Concerns Assessment Noted Time A fall risk assessment has been complete d for the patient 08/06/2023 8:22 AM EDT documented as of this encounter Care Teams Yard Manager Relationship Specialty Start Date End Date Palma Jj DO [employer] [place] [phone] PCP - General Family Medicine 07/14/22 documented as of this encounter
--- OUTSIDE RECORDS SUMMARY | 2025-05-08 10:59 | XMS_ITS | Continuity of Care Document ---
Author Organization [facility] Address [address] [place] [address] Phone Care Team Providers Care Quality Project Manager Name Role Phone Palma Jj DO Primary Care Provider + [phone] Encounters Date Type Department Care Team Description 05/05/2025 Results Follow-Up [place] [address] [place] [address] Palma Jj, LIPID PANEL REFLEX, HEMOGLOBIN A1C, CBC WITH DIFF, Additional followed-up results: 3 05/03/2025 8:40 AM EST Office Visit [place] [address] [place] [address] Palma Jj DO Medicare annual wellness visit, subsequent (Primary Dx); Diabetes mellitus screening; Hypercholesterolemia; GERD without esophagitis; Essential hypertension; Chronic diastolic (congestive) heart failure (HCC); Exudative age-related macular degeneration of left eye, unspecified stage (HCC); Spinal stenosis of lumbar region without neurogenic claudication; Bilateral numbness and tingling of arms and legs; Age-related osteoporosis without current pathological fracture 04/28/2025 Telephone [place] [address] [place] [address] Palma Jj DO Patient Returning Call (Tricia returned call - transferred to [place] at office) 04/28/[address] [place], [place] [address] Palma Jj, DO Medication Management (Aspirin / Atorvastatin / Vit D / Famotidine / Gabapentin / Lisinopril / Meloxicam / Nortiptyline ) 04/18/2025 Refill [facility] [address] [place], [place] [address] Palma Jj, DO Medication Refill 02/16/2025 Orders Only [address] [place], [place] [address] Julianna Lea MA 02/14/2025 Refill [facility] [address] [place], [place] [address] Palma Jj, DO Medication Refill 08/19/2024 Telephone [place] [address] [place] [phone] Melania Cole, Airport Location Manager Medication Management (Gabapentin) 07/12/2024 Refill SE[facility] [address] [place], [place] [address] Palma Jj, DO Medication Refill 07/11/2024 Refill SE[facility] [address] [place], [place] [address] Palma jJ, DO Medication Refill 05/31/2024 Telephone [place] [address] [place] [phone] Gilda Francis PA Prior Authorization (visco for right knee) 05/31/2024 9:15 AM EST Office Visit [facility] [address] [place] [address] Gilda Francis PA Intervertebral disc disorder with radiculopathy of lumbosacral region (Primary Dx); Osteoporosis, unspecified osteoporosis type, unspecified pathological fracture presence; Spinal stenosis of lumbar region, unspecified whether neurogenic claudication present; Neuroforaminal stenosis of lumbar spine; Lumbar radiculopathy; Spondylosis of lumbosacral region without myelopathy or radiculopathy; Failed back syndrome of lumbar spine; Myofascial pain; Chronic pain syndrome 03/28/[address] [place] [address] Palma Jj, DO Medication Refill 02/15/2024 8:00 AM EDT Office Visit [facility] [address] [facility] [address] Gilda Francis PA Cervicalgia (Primary Dx); Intervertebral [...] pain of right knee 01/14/2024 Orders Only [address] [place] [address] Palma Jj, DO Age-related osteoporosis without current pathological fracture (Primary Dx) 01/14/[address] [place] [address] Palma Jj, DO Medication Management ([facility] called on patient's behalf- requesting med change) 12/22/[address] [place] [address] Palma Jj, DO Other (Return call) 12/10/[address] [place] [address] Palma Jj, DO Medication Refill 11/27/[address] [place] [address] Palma Jj, DO Results (Results given) 11/20/[address] [place] [address] Palma Jj, DO Results (Lab: Vit D, CBC, Lipid, BMP, NT ProBNP) 11/11/2023 Orders Only [address] [place] [address] Palma Jj, DO Hypercholesterolemia 11/11/2023 9:00 AM EDT Office Visit [facility] [address] [place] [phone] Gilda Francis PA Cervicalgia (Primary Dx); Intervertebral [...] pain 11/09/2023 10:40 AM EDT Office Visit [address] [place] [address] Palma Jj, DO Medicare annual wellness visit, subsequent (Primary Dx); Screening for diabetes mellitus; Screening for hyperlipidemia; Screening for osteoporosis; Postmenopausal; Thyroid cyst; Vitamin D deficiency; Bilateral carotid artery stenosis; Chronic diastolic (congestive) heart failure (HCC); Essential hypertension; Chronic diastolic (congestive) heart failure (HCC) 11/07/[address] [place] [address] Palma Jj, Medication Refill 11/03/[address] [place] [address] Palma Jj DO Referral (Podiatry referral) 09/24/2023 Orders Only [address] [place] [address] Julianna Lea MA Spinal stenosis of lumbar region, unspecified whether neurogenic claudication present; DDD (degenerative disc disease), lumbar; Osteoporosis, unspecified osteoporosis type, unspecified pathological fracture presence; Neuroforaminal stenosis of lumbar spine; Lumbar pain; Right sided sciatica 09/14/2023 11:00 AM EDT Office Visit [facility] [place] [address] [place] [address] Rachael Steven DPM Acquired clubfoot, right foot (Primary Dx); Right foot pain; Corns and callosities; Punctate porokeratosis; Left foot pain 09/09/2023 Telephone SE[facility] [address] [place] [address] Palma Jj, DO Medication Management (True Metrix Meter) 08/28/2023 Orders Only [address] [place] [address] Julianna Lea MA Essential hypertension 08/12/2023 1:05 PM EDT - 08/12/2023 11:59 PM EDT Hospital Encounter [facility] [address] [place] [address] Cervicalgia Discharge Disposition: Home or Self Care 08/06/2023 8:40 AM EDT Office Visit [address] [place] [address] Palma Jj, Primary osteoarthritis of right foot (Primary Dx); Chronic foot pain, right; COVID-19 vaccine administered; Bilateral carotid artery stenosis 07/28/2023 9:45 AM EDT Office Visit [facility] [address] [place] [address] Chanel Acevedo APRN Failed back syndrome of lumbar spine (Primary Dx); Intervertebral disc disorder with radiculopathy of lumbosacral region; Cervicalgia; Chronic pain syndrome; Spondylosis of lumbosacral region without myelopathy or radiculopathy 07/23/2023 10:00 AM EDT - 07/23/2023 11:59 PM EDT Hospital Encounter [facility] [address] [place] [address] Palma Jj, PVD (peripheral vascular disease); Bilateral carotid artery stenosis Discharge Disposition: Home or Self Care 07/15/[address] [place] [address] Palma Jj, DO Other (Daughter requesting call back) 07/15/2023 10:40 AM EST Office Visit [address] [place] [address] Palma Jj, Cellulitis of right foot (Primary Dx); Exudative age-related macular degeneration of left eye, unspecified stage (HCC); Chronic diastolic (congestive) heart failure (HCC); PVD (peripheral vascular disease); Bilateral carotid artery stenosis 07/07/[address] [place] [address] Palma Jj, DO Results (Results given) 07/07/[address] [place] [address] Palma Jj, DO Results 07/06/2023 1:51 PM EST - 07/06/2023 11:59 PM EST Hospital Encounter [facility] [address] [place], [place] [address] Acute foot pain, right Discharge Disposition: Home or Self Care 07/06/2023 1:00 PM EST Office Visit [address] [place] [address] Palma Jj, Acute foot pain, right (Primary Dx); Age related osteoporosis, unspecified pathological fracture presence; Essential hypertension; Spinal stenosis of lumbar region, unspecified whether neurogenic claudication present; DDD (degenerative disc disease), lumbar; Osteoporosis, unspecified osteoporosis type, unspecified pathological fracture presence; Neuroforaminal stenosis of lumbar spine; Lumbar pain; Right sided sciatica; Hypercholesterolemia; Vitamin D deficiency; GERD without esophagitis 07/06/[address] [place] [address] Palma Jj, DO Appointment Needed (Hurt foot x 1 day ago and cannot put weight on it or walk on it) 06/30/[address] [place] [address] Palma Jj, DO Medication Refill ( [...] AM EST Office Visit [facility] [address] [place] [address] Clay Ness MD Failed back syndrome of lumbar spine (Primary Dx); Intervertebral disc disorder with radiculopathy of lumbosacral region; Cervicalgia; Chronic pain syndrome; Spondylosis of lumbosacral region without myelopathy or radiculopathy 05/28/2023 Refill [facility] [address] [address] Miky Webb MD Medication Refill 05/25/2023 Refill [facility] [place] [address] [place] [address] Miky Webb MD Medication Refill 05/25/2023 Refill [facility] [address] [address] Miky Webb MD Medication Refill 05/25/2023 Refill [address] [address] [place] [address] Mann Irene MD Medication Refill 05/25/2023 Refill [address] [address] [place] [address] Palma Jj, DO Medication Refill 05/25/2023 Orders Only SEP [address] [place] [address] Palma Jj, DO 05/25/20[address] [address] [place] [address] Palma Jj, DO Other (Discuss Medication List) 05/01/[address] [address] Miky Webb MD 05/01/[address] [place] [address] Miky Webb MD Medication Refill 05/01/2023 Telephone [place] [address] [place] [address] Rahul Arriaga MA New Patient 05/01/2023 10:45 AM EST [facility] [address] [place] [address] Miky Webb MD Spinal stenosis of lumbar region, unspecified whether neurogenic claudication present (Primary Dx); DDD (degenerative disc disease), lumbar; Osteoporosis, unspecified osteoporosis type, unspecified pathological fracture presence; Neuroforaminal stenosis of lumbar spine; Lumbar pain; Right sided sciatica; L5 S1 Protrusion of intervertebral disc of lumbosacral region; Vitamin D deficiency; Sciatica of right side 04/28/2023 Refill [facility] [address] [place], [place] [address] Palma Jj, DO Medication Refill 04/28/2023 Refill [place] [address] [place] [address] Palma Jj, DO Medication Refill 04/16/[address] [place] [address] Palma Jj, DO Medication Refill 04/16/[address] [place] [address] Mann Irene MD Medication Refill 04/15/2023 9:34 AM EST - 04/15/2023 11:59 PM EST Hospital Encounter [facility] [address] [place], [place] [phone] Palma Jj, DO Recurrent syncope Discharge Disposition: Home or Self Care 04/10/2023 Orders Only [address] [place] [address] Palma Jj, Age-related osteoporosis without current pathological fracture (Primary Dx) 04/06/2023 10:40 AM EST Office Visit [address] [place] [address] Palma Jj, Recurrent syncope (Primary Dx); Essential hypertension 03/26/2023 Orders Only [address] [place] [address] Palma Jj, Spinal stenosis of lumbar region without neurogenic claudication (Primary Dx) 03/23/[address] [place] [address] Palma Jj, Referral (formerly [facility]) 03/20/2023 Refill [facility] [place] [address] [place] [address] Dylon Corrales MD Medication Refill 03/20/2023 10:15 AM EST Office Visit [facility] [place] [address] [place] [address] Dylon Corrales MD Spinal stenosis of lumbar region, unspecified whether neurogenic claudication present (Primary Dx); DDD (degenerative disc disease), lumbar; Neuroforaminal stenosis of lumbar spine; Osteoporosis, unspecified osteoporosis type, unspecified pathological fracture presence 03/17/2023 9:00 AM EST Telemedicine [address] [place] [address] Ramandeep Noriega, PATRICIA URI, acute (Primary Dx) 03/06/2023 Patient Outreach [facility] [address] [place] [address] Geraldine Whiteside, RN CM- Longitudinal Continued; CM- Telephonic Outreach; CM-Resource Coordination 02/27/2023 10:30 AM EDT Telemedicine [address] [place] [address] Geraldine Whiteside, RN Encounter for support [...] 02/25/2023 12:30 PM EDT Office Visit [facility] [address] [place] [address] Lele Aquino MD Abnormal auditory perception, bilateral (Primary Dx); Tinnitus of both ears; Mixed conductive and sensorineural hearing loss, unilateral, 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; Sensorineural hearing loss, unilateral, right ear, with restricted hearing on the contralateral side; Ear fullness, bilateral 02/23/2023 2:45 PM EDT Office Visit [facility] [address] [place] [address] Jason Wright DO Spinal stenosis of lumbar region, unspecified whether neurogenic claudication present (Primary Dx); Neuroforaminal stenosis of lumbar spine; Lumbar radiculopathy 02/16/2023 Telephone [facility] [address] [place] [address] Palma Jj DO Referral (ENT) 02/13/2023 9:00 AM EDT [facility] [address] [place] [address] Dylon Corrales MD Spinal stenosis of lumbar region, unspecified whether neurogenic claudication present (Primary Dx); Neuroforaminal stenosis of lumbar spine; Lumbar pain 01/28/2023 Orders Only [address] [place] [address] Palma Jj, 01/28/2023 9:00 AM EDT Office Visit [address] [place] [address] [facility], Geraldine, RN Encounter for support and coordination of transition of care (Primary Dx); GERD without esophagitis; Thoracic spine pain; Vitamin D deficiency; L5 S1 Protrusion of intervertebral disc of lumbosacral region; Age related osteoporosis, unspecified pathological fracture presence; Acute low back pain, unspecified back pain laterality, unspecified whether sciatica present; Seasonal allergic rhinitis due to pollen 01/27/2023 Telephone [facility] [place] [address] Miky Webb MD Prior Authorization (Prolia ) 01/26/2023 Patient Outreach [address] [place] [address] [facility], Geraldine, RN CM- Longitudinal Continued; CM- Telephonic Outreach; CM-Resource Coordination 01/26/[address] [place] [address] Palma Jj DO Appointment Needed (With Geraldine Miesha); Medication Management (Questions about multiple meds. ) 01/23/2023 Orders Only [place] [address] Eileen London, PharmD 01/23/2023 10:45 AM EDT Ancillary Procedure [facility] [address] [place] [address] Miky Webb MD Thoracic spine pain 01/23/2023 10:30 AM EDT Office Visit [facility] [address] [place], [place] [id number] Miky Webb MD Thoracic spine pain (Primary Dx); Age related osteoporosis, unspecified pathological fracture presence; Vitamin D deficiency; Acute low back pain, unspecified back pain laterality, unspecified whether sciatica present; L5 S1 Protrusion of intervertebral disc of lumbosacral region 01/16/2023 Orders Only [address] [place] [address] Palma Jj, GERD without esophagitis (Primary Dx) 01/16/2023 Patient Outreach [address] [place] [address] MieshaGeraldine roberts RN CM- Longitudinal Continued; CM- Telephonic Outreach; CM-Resource Coordination 01/09/2023 Orders Only [address] [place] [address] Palma Jj DO 01/09/2023 8:30 AM EDT Office Visit [address] [place] [address] MieshaGeraldine roberts RN Enrolled in chronic care management (Primary Dx) 01/07/[address] [place] [address] MieshaGeraldine roberts, RN Other (returning office call ) 01/07/2023 Patient Outreach [address] [place] [address] MieshaGeraldine roberts, contracts advisor; CM- Telephonic Outreach; CM-Resource Coordination 12/22/[address] [place] [address] Mann Irene MD Medication Refill 12/22/[address] [place] [address] Palma Jj, Medication Refill 12/19/2022 Orders Only [address] [place] [address] Palma Jj, DO Age-related osteoporosis without current pathological fracture (Primary Dx) 12/19/2022 Travel 12/19/2022 9:34 AM EDT - 12/19/2022 11:59 PM EDT Hospital Encounter [facility] [address] [place] [address] Palma Jj, DO Screening for osteoporosis; Postmenopausal Discharge Disposition: Home or Self Care 12/11/2022 4:00 PM EDT Office Visit [facility] [place] [facility] [address] [place] [address] Palma Jj, DO Poison sumac (Primary Dx) 12/11/2022 Telephone [place] [address] [place] [address] Palma Jj, DO Other (Poison Sumac) 12/05/[address] [address] Bruce Oh MD Patient Question (pt needs list of back drs that she did not receive at last appointment) 12/03/2022 10:45 AM EDT Office Visit [address] [address] Bruce Oh MD History of right hip replacement (Primary Dx); Right knee pain, unspecified chronicity; Primary osteoarthritis of right knee 11/12/2022 Patient Outreach [facility] [address] App[place] [address] Olesya Estrada LSW CM- Telephonic Outreach; CM-SDOH; Care Management - Chart Review 11/07/2022 Patient Outreach [facility]formation [address] [place] [address] Nabil Amaro, BA, COS Referral 11/07/2022 9:00 AM EDT Office Visit [place] [address] [place] [address] Geraldine Whiteside, RN Encounter for support and coordination of transition of care (Primary Dx) 11/07/2022 Patient Outreach [facility] [address] [place] [address] Nabil Amaro, BA, COS Referral 11/07/2022 8:20 AM EDT Office Visit [address] [place] [address] Palma Jj, DO Medicare annual wellness visit, subsequent (Primary Dx); Screening for osteoporosis; Postmenopausal; Burning with urination; Advanced care planning/counseling discussion; PVD (peripheral vascular disease); Essential hypertension; Bilateral carotid artery stenosis; Thyroid cyst 11/03/2022 11:00 AM EDT [facility] [address] [address] Bruce Oh MD History of right hip replacement; Right knee pain, unspecified chronicity 10/28/2022 Telephone [address] [address] [place] [address] Palma Jj, Information Only (Mri ) 10/28/2022 [facility]phone [facility] [address] [address] Bruce Oh MD Knee Pain 10/28/2022 Refill [facility] [address] [place] [address] [place] MD Medication Refill 10/27/2022 Refill [facility] [address] [place] [address] Mann Irene MD Medication Refill 10/23/2022 Telephone [facility] [address] [address] Bruce Oh MD Knee Pain 10/22/2022 2:30 PM EDT Ancillary Procedure [address] [address] Bruce Oh MD Right knee pain, unspecified chronicity 10/22/2022 2:15 PM EDT Ancillary Procedure [address] [address] Bruce Oh MD History of right hip replacement 10/22/2022 2:00 PM EDT Ancillary Procedure [address] [address] Bruce Oh MD History of right hip replacement 10/22/2022 1:45 PM EDT Office Visit [address] [address] Bruce Oh MD History of right hip replacement (Primary Dx); Right knee pain, unspecified chronicity 10/04/2022 Refill [place] [address] [place] [address] Palma Jj, Medication Refill 08/01/2022 Refill [place] [address] [place] [address] Mann Irene MD Medication Refill 07/30/2022 Orders Only [place] [address] [place] [address] Palma Jj, Acute cystitis without hematuria (Primary Dx) 07/28/2022 Travel 07/28/2022 11:20 AM EDT - 07/28/2022 11:59 PM EDT Hospital Encounter Mobile Mammography Other Location View online schedule for mobile van location [phone] Mann Irene MD Encounter for screening mammogram for malignant neoplasm of breast Discharge Disposition: Home or Self Care 07/28/2022 8:40 AM EDT Office Visit [facility] [place] [facility] [address] [place] [address] Palma Jj DO Essential hypertension (Primary Dx); Dysuria 07/18/2022 Refill [place] [address] [place] [address] Mann Irene MD Medication Refill 07/14/2022 9:40 AM EST Office Visit [place] [address] [address] [place] [address] Palma Jj, DO Essential hypertension (Primary Dx); Exudative age-related macular degeneration of left eye, unspecified stage (HCC); Thyroid cyst 07/11/[address] [place] [address] Palma Jj, DO Other (question about appt today ) 07/10/2022 Refill [facility] [address] [place] [address] Mann Irene MD Medication Refill 07/10/2022 Orders Only [address] [place] [address] Palma Jj, DO Essential hypertension (Primary Dx) 07/09/2022 1:40 PM EST Office Visit [address] [place] [address] Palma Jj, DO Hypertensive urgency (Primary Dx) 05/01/2022 Refill [facility] [address] [place] [address] Mann Irene MD Medication Refill 04/25/[address] [place] [address] Mann Irene MD Symptom Call (Light headed, dizzy, high BP) 04/24/2022 Telephone [facility] [address] [address] Fredi Nick MD Results (biotel) 04/22/2022 Refill SE[facility] [address] [place] [address] Mann Irene MD Medication Refill 04/19/2022 Refill [facility] [address] [place] [address] Mann Irene MD Medication Refill 04/17/2022 10:45 AM EST Office Visit [address] [place] [address] Geraldine Whiteside RN Hospital discharge follow-up (Primary Dx) 04/17/2022 10:20 AM EST Office Visit [facility] [address] [place] [address] Mann Irene MD Syncope, unspecified syncope type (Primary Dx); Exudative age-related macular degeneration of left eye, unspecified stage (HCC); 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 04/04/2022 Travel 04/04/2022 9:55 AM EST - 04/04/2022 11:59 PM EST Hospital Encounter [facility] [address] [place] [address] Fredi Nick MD Syncope, unspecified syncope type Discharge Disposition: Home or Self Care 04/02/2022 Patient Outreach [facility] [address] [place] [address] Nerissa Vargas RN Hospital Follow Up 04/01/2022 Orders Only [facility] [place] [address] [id number] Fredi Nick MD Syncope, unspecified syncope type (Primary Dx) 03/28/2022 12:15 PM EST - 04/01/2022 1:01 PM EST Hospital Encounter [place] [address] Marivel King, Lolis Hicks MD Syncope, unspecified syncope type (Primary Dx) Discharge Disposition: Home or Self Care 03/29/2022 Travel 03/27/2022 Telephone [facility] [address] [place] [address] Mann Irene MD Appointment Needed 02/17/2022 Travel 02/17/2022 9:15 AM EDT - 02/17/2022 11:59 PM EDT Hospital Encounter [facility] [address] [place] [address] Mann Irene MD Syncope due to orthostatic hypotension Discharge Disposition: Home or Self Care 02/14/[address] [place] [address] Mann Irene MD Follow-up (heart monitor ) 01/28/[address] [place] [address] Mann Irene MD Results 01/27/2022 10:40 AM EDT Office Visit [address] [place] [address] Mann Irene MD Syncope, cardiogenic (Primary Dx); 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; Chronic fatigue 01/24/[address] [place] [address] Mann Irene MD Appointment Needed (Passed out once yesterday ) 10/31/2021 Travel 10/31/2021 11:35 AM EDT - 10/31/2021 11:59 PM EDT Hospital Encounter [facility] [address] [place] [address] Mann Irene MD PVD (peripheral vascular disease); Bruit Discharge Disposition: Home or Self Care 10/31/2021 11:35 AM EDT - 10/31/2021 11:59 PM EDT Hospital Encounter [facility] [address] [place] [address] [phone] Mann Irene MD Claudication Discharge Disposition: Home or Self Care 10/30/[address] [place] [phone] Mann Irene MD Paperwork/forms (Handicap form ) 10/20/[address] [place] [address] Mann Irene MD Medication Refill 09/24/2021 8:20 AM EDT Office Visit [address] [place] [address] Mann Irene MD Hypercholesterolemia (Primary Dx); Claudication; Osteoarthritis, unspecified osteoarthritis type, unspecified site; Dysphagia, unspecified type; PVD (peripheral vascular disease); Bruit; Chronic fatigue; Vitamin D deficiency; Acute bacterial sinusitis 09/17/2021 Orders Only [address] [place] [address] Carl Irene MD Diarrhea, unspecified type (Primary Dx) 09/17/[address] [place] [address] Mann Irene MD Medication Reaction 09/16/2021 11:20 AM EDT Office Visit [address] [place] [address] Carl Irene MD Acute bacterial sinusitis (Primary Dx) 09/15/[address] [place] [address] Mann Irene MD Medication Refill 09/05/[address] [place] [address] Mann Irene MD Medication Refill (allergy relief) 07/22/[address] [place] [address] Mann Irene MD Medication Refill 07/16/2021 Travel 07/16/2021 11:23 AM EST - 07/16/2021 11:59 PM [facility] Hospital Encounter Mobile Mammography Other Location View online schedule for mobile van location [phone] Mann Irene MD Encounter for screening mammogram for malignant neoplasm of breast Discharge Disposition: Home or Self Care 03/18/[address] [place] [address] Mann Irene MD Medication Refill (atorvastatin (LIPITOR) 10 mg Oral Vfpfmp41 Skgaqn4302/05/2021) 03/18/[address] [place] [address] Mann Irene MD Medication Management (meloxicam (MOBIC) 15 mg Oral Eislqp43 Hgcybe96/ ) 02/08/[address] [place] [address] Mann Irene MD Medication Refill 02/05/2021 Travel 02/05/2021 9:00 AM EDT Office Visit [address] [place] [address] Mann Irene MD Annual physical exam (Primary Dx); Seasonal allergic rhinitis due to pollen; Needs flu shot; Hypercholesterolemia; Osteoarthritis, unspecified osteoarthritis type, unspecified site 12/06/2020 Patient Outreach [facility] [address] [place], [place] [id number] Mann Irene MD Central Patient Navigator Outreach (AWV) 09/26/2020 Refill SE[facility] [address] [place] [address] Mann Irene MD Medication Refill (multiple meds) 05/05/[address] [place] [address] Mann Irene MD Medication Refill 03/27/2020 Travel 03/27/[address] [place] [address] Mann Irene MD Orders (covid ) 03/23/2020 Travel 03/23/2020 8:00 AM EST Clinical Support [address] [place] [address] Jill Beck Malaise and fatigue; Vitamin D deficiency; Recurrent UTI (urinary tract infection) 03/22/2020 4:30 PM EST Office Visit [address] [place] [address] Arkoe, Ramandeep, TRANSIT OPERATOR Malaise and fatigue (Primary Dx); Vitamin D deficiency; Recurrent UTI (urinary tract infection) 03/22/2020 Travel 03/07/[address] [place] [address] Mann Irene MD Medication Refill 02/06/[address] [place] [address] Mann Irene MD Medication Refill 01/25/2020 Travel 01/25/2020 2:00 PM EDT Office Visit [facility] Urology NPTFTT [address] [place] [address] Amari Wheeler MD Asymptomatic microscopic hematuria (Primary Dx) 01/12/2020 8:00 AM EDT Clinical Support [address] [place] [address] Jill Beck 01/11/2020 Travel 01/04/[address] [place] [address] Mann Irene MD Appointment Needed (Labs and Flu Shot) 01/02/2020 Travel 01/02/2020 3:00 PM EDT - 01/02/2020 4:15 PM EDT Surgery [facility] [place] [address] Amari Wheeler MD CYSTOSCOPY, URETEROSCOPY, LASER LITHOTRIPSY, RETROGRADE PYELOGRAM, STENT INSERTION 01/02/2020 2:45 PM EDT Anesthesia Event EDG [facility] [address] London Cheng MD Powell, Jeanne, APRN 01/02/2020 12:32 PM EDT - 01/02/2020 5:15 PM EDT Hospital Encounter EDG SAME DAY SURGERY [facility] [place] [address] Amari Wheeler MD Nephrolithiasis; Nephrolithiasis Discharge Disposition: Home or Self Care 12/29/2019 Travel 12/29/2019 10:05 AM EDT - 12/29/2019 11:59 PM EDT Hospital Encounter [facility] [address] [place] [address] Covid19, [facility] Pre-op testing; Encounter for laboratory testing for COVID-19 virus Discharge Disposition: Home or Self Care 12/20/2019 Travel 12/20/2019 Refill [facility] NPT[facility] [address] [place] [address] Amari Wheeler MD Medication Refill 12/14/2019 Travel 12/14/2019 2:00 PM EDT Procedure visit [facility] NPT[facility] [address] [place] [address] Amari Wheeler MD Nephrolithiasis (Primary Dx) 12/09/2019 Refill [place] [address] [place] [address] Mann Irene MD Medication Refill 12/08/2019 9:00 AM EDT Office Visit [facility] [place] [address] [place] [address] Mann Irene MD Annual physical exam (Primary Dx); Hypercholesterolemia; Other microscopic hematuria; Claudication 12/05/2019 11:05 AM EDT - 12/05/2019 11:59 PM EDT Hospital Encounter [facility] [address] [place] [address] Urine culture positive; Hypercholesterolemia Discharge Disposition: Home or Self Care 12/05/2019 Travel 11/28/2019 Travel 11/28/2019 1:00 PM EDT - 11/28/2019 2:15 PM EDT Surgery [facility] [address] [place] [address] Amari Wheeler MD CYSTOSCOPY STENT INSERTION OR EXCHANGE 11/28/2019 12:30 PM EDT Anesthesia Event [facility] [address] [place] [address] Raghav Nolan MD Braxton-Brown, Jennifer, APRN 11/28/2019 10:28 AM EDT - 11/28/2019 3:39 PM EDT Hospital Encounter [facility] SAME DAY SURGERY [address] [place] [address] Amari Wheeler MD Hypercholesterolemia (Primary Dx); Urine culture positive Discharge Disposition: Home or Self Care 11/25/2019 Travel 11/24/2019 10:20 AM EDT - 11/24/2019 11:59 PM EDT Hospital Encounter [facility] [address] [place] [address] Covid19, [facility] Pre-op testing; Encounter for laboratory testing for COVID-19 virus Discharge Disposition: Home or Self Care 11/23/2019 Orders Only [facility] [address] [place] [address] Amari Wheeler MD Urinary tract infection without hematuria, site unspecified (Primary Dx) 11/22/2019 Telephone [facility] [address] [place] [address] Amari Wheeler MD Other 11/22/2019 Orders Only [facility] [address] [place] [address] Amari Wheeler MD 11/22/2019 Travel 11/21/2019 Orders Only [facility] [address] [place] [address] Cheyanne Forman MA 11/18/2019 Travel 11/17/2019 Telephone [facility] [address] [address] Oralia Krueger MA Other 11/16/2019 Travel 11/16/2019 11:40 AM EDT Office Visit [facility] [address] [place] [address] Amari Wheeler MD Urine culture positive (Primary Dx) 11/07/2019 Patient Outreach [facility] [address] [place] [address] Wanda Gilliland Care Management - Chart Review 11/02/2019 Patient Outreach [facility] [address] [place] [address] Nerissa Vargas RN ED Follow-Up Call; ED Follow-Up Call 10/31/2019 - 10/31/2019 11:32 PM EDT Emergency [facility] [address] [place] [address] Discharge Disposition: ED Dismiss - Never Arrived 10/31/2019 3:00 PM EDT Telemedicine [facility] [address] [address] Amari Wheeler MD Other microscopic hematuria (Primary Dx) 10/30/2019 11:35 PM EDT - 10/31/2019 3:23 AM EDT Emergency [facility] [address] [place] [address] Jorge Luis Sharif MD Acute cystitis with hematuria (Primary Dx); Gross hematuria Discharge Disposition: Home or Self Care 10/30/2019 Travel 10/26/2019 Travel 10/26/2019 10:30 AM EDT - 10/26/2019 11:30 AM EDT Surgery EDG [facility] [place] [address] Amari Wheeler MD CYSTOSCOPY TRANSURETHRAL RESECTION BLADDER TUMOR - FULGURATION/EVACUATION OF CLOT 10/26/2019 10:30 AM EDT Anesthesia Event EDG [facility] [place] [address] Michelle Tucker MD Powell, Jeanne, APRN 10/26/2019 8:44 AM EDT - 10/26/2019 11:56 AM EDT Hospital Encounter EDG SAME DAY SURGERY [facility] [address] Amari Wheeler MD Hematuria; Hematuria, unspecified type Discharge Disposition: Home or Self Care 10/21/2019 9:51 AM EDT - 10/21/2019 11:59 PM EDT Hospital Encounter [facility] [address] [place] [address] Covid19, [facility] [place] [facility] Pre-op testing; Encounter for laboratory testing for COVID-19 virus Discharge Disposition: Home or Self Care 10/20/2019 Travel 10/19/2019 Telephone [facility] [place] [address] [place] [address] Oralia Krueger MA Other 10/19/2019 Telephone [facility] [address] [place] [address] Mann Irene MD Other (needing appt ) 10/12/2019 Telephone [facility] [place] [address] [place] [address] Oralia Krueger MA Other 10/11/2019 Telephone [facility] [place] [address] [place] [address] Oralia Krueger MA Other 10/10/2019 12:05 PM EDT - 10/10/2019 11:59 PM EDT Hospital Encounter [facility] [address] [place] [address] Hematuria, unspecified type Discharge Disposition: Home or Self Care 10/10/2019 Travel 10/10/2019 11:40 AM EDT Procedure visit [facility] [place] [address] [facility] [address] [place] [address], [place] [address] Amari Wheeler MD Hematuria, unspecified type (Primary Dx) 09/23/2019 Travel 09/23/2019 Patient Outreach [facility] [address] [place] [address] Mann Irene MD Central Patient Navigator Outreach 09/22/2019 Travel 08/16/2019 Refill [facility] [address] [place] [address] Mann Irene MD Medication Refill 08/11/2019 Travel 08/10/2019 Telephone [facility] [place] [address] [place] [address] Oralia Krueger MA Other 08/09/2019 Orders Only [facility] [address] [place] [address] Elida Pavon CCMA Seasonal allergic rhinitis due to pollen 08/09/[address] [place] [address] Mann Irene MD Medication Refill 08/04/2019 Travel 07/29/2019 Travel 07/25/2019 Orders Only [facility] Urology NPTFTT [address] [place] [address] Shaniqua Bustillo MA Urinary tract infection without hematuria, site unspecified (Primary Dx) 07/25/2019 Telephone [facility] Urology NPTFTT [address] [place] [address] Amari Wheeler MD Other 07/25/[address] [place] [address] Mann Irene MD Urinary Tract Infection 07/22/2019 Travel 07/22/2019 8:56 AM EDT - 07/22/2019 11:59 PM EDT Hospital Encounter [facility] [place] [address] [place] [address] Amari Wheeler MD Recurrent UTI; Feeling of incomplete bladder emptying Discharge Disposition: Home or Self Care 07/20/2019 Travel 07/20/2019 11:30 AM EDT Office Visit [facility] Urology NPTFTT [address] [place] [address] Amari Wheeler MD Recurrent UTI (Primary Dx); Feeling of incomplete bladder emptying 07/04/2019 Travel 07/04/[address] [place] [address] Mann Irene MD Referral 05/20/[address] [place] [address] Mann Irene MD Medication Refill 04/20/[address] [place] [address] Mann Irene MD Medication Management (levoFLOXacin (LEVAQUIN) 750 mg Oral Tablet7 Lmn323/8/533003/) 04/18/[address] [place] [address] Mann Irene MD Results (returning call for results ) 04/17/2019 Orders Only [address] [place] [address] Hari Ramandeep, TRANSIT OPERATOR UTI (urinary tract infection), uncomplicated (Primary Dx) 04/15/2019 9:00 AM EST Office Visit [address] [place] [address] Arkoe, Ramandeep, TRANSIT OPERATOR Recurrent UTI (urinary tract infection) (Primary Dx); Dysuria 04/04/[address] [place] [address] Mann Irene MD Medication Refill 03/16/[address] [place] [address] Mann Irene MD Medication Refill 03/14/2019 9:30 AM EST - 03/14/2019 9:45 AM EST Surgery [facility] [place] [address] Conor Ramirez MD CATARACT EXTRACTION WITH PHACOEMULSIFICATION AND INTRAOCULAR LENS 03/14/2019 9:30 AM EST Anesthesia Event [facility] [address] [place] [address] Viola Parrish MD Oliver, Richard G, MD 03/14/2019 7:48 AM EST - 03/14/2019 10:20 AM EST Hospital Encounter [facility] [address] [place] [address] Conor Ramirez MD Discharge Disposition: Home or Self Care 02/28/2019 Travel 02/28/2019 9:30 AM EDT - 02/28/2019 9:45 AM EDT Surgery [facility]G [facility] [address] [place] [address] Conor Ramirez MD CATARACT EXTRACTION WITH PHACOEMULSIFICATION AND INTRAOCULAR LENS 02/28/2019 9:37 AM EDT Anesthesia Event [facility] [address] [place] [address] Lexi Golden MD Oliver, Richard G, MD 02/28/2019 8:06 AM EDT - 02/28/2019 10:28 AM EDT Hospital Encounter [facility] [place] [address] Conor Ramirez MD Discharge Disposition: Home or Self Care 02/23/2019 Travel 02/21/2019 10:40 AM EDT Office Visit [place] [address] [place] [address] Carl Irene MD Pre-op examination (Primary Dx); Age-related cataract of both eyes, unspecified age-related cataract type; Osteoarthritis, unspecified osteoarthritis type, unspecified site; Need for influenza vaccination; UTI (urinary tract infection), uncomplicated 02/11/2019 Orders Only [place] [address] [place] [address] Brittany Slaughter CCMA 02/10/2019 4:40 PM EDT Office Visit [place] [address] [place] [address] Ramandeep Noriega APRN UTI (urinary tract infection), uncomplicated (Primary Dx); Dysuria 02/10/2019 11:12 AM EDT - 02/10/2019 11:59 PM EDT Hospital Encounter [facility] DEXA [address] [place] [address] Mann Irene MD Post-menopausal Discharge Disposition: Home or Self Care 02/09/2019 Patient Outreach [place] [address] [place] [address] Jr Jackson, RN Osteoporosis (dexa) 01/27/2019 Patient Outreach [place] [address] [place] [address] Sofia Villegas, PharmD Medication Management 01/26/2019 Orders Only [facility] [address] [place] [address] Mann Irene MD Encounter for medication review (Primary Dx) 01/02/2019 Refill [place] [address] [place] [address] Mann Irene MD Medication Refill 12/31/2018 Patient Outreach [facility] [address] [place] [phone] Mann Irene MD Osteoporosis (osteoporosis screening) 12/28/2018 9:29 AM EDT - 12/31/2018 9:30 AM EDT Hospital Encounter EDG 7D ORTHO [facility] [address] [place] [facility]17 Bruce Oh MD Discharge Disposition: [facility] Facility 12/28/2018 Travel 12/28/2018 2:45 PM EDT - 12/28/2018 4:00 PM EDT Surgery [facility]G [facility] [address] [place] [facility]17 Bruce Oh MD ARTHROPLASTY, KNEE, TOTAL, OPEN 12/28/2018 2:15 PM EDT Anesthesia Event EDG [facility] [place] [address] Eduardo Interiano MD Powell, Jeanne, APRN 12/25/2018 Refill [place] [address] [place] [address] Mann Irene MD Medication Refill 12/16/2018 Orders Only [place] [address] [place] [address] Mann Irene MD Cataract of left eye, unspecified cataract type (Primary Dx); Cataract (lens) fragments in eye following cataract surgery; Cataract of right eye, unspecified cataract type 12/15/2018 Travel 12/15/2018 8:37 AM EDT - 12/15/2018 11:59 PM EDT Hospital Encounter EDG PRE-ADMIT TESTING [facility] [place] [address] Bruce Oh MD Anticoagulation adequate (Primary Dx) Discharge Disposition: Home or Self Care 12/06/2018 9:40 AM EDT Office Visit [address] [place] [address] Mann Irene MD Annual physical exam (Primary Dx); Claudication; Osteoarthritis, unspecified osteoarthritis type, unspecified site; Pre-op examination 11/19/[address] [place] [address] Mann Irene MD Medication Refill 10/18/2018 Refill [facility] [address] [place] [address] Mann Irene MD Medication Refill 10/15/2018 8:34 AM EDT - 10/15/2018 11:59 PM EDT Hospital Encounter [facility] Mammogram [address] [place] [address] Mann Irene MD Encounter for screening for malignant neoplasm of breast Discharge Disposition: Home or Self Care 09/14/2018 Refill [facility] [address] [place] [address] Mann Irene MD Medication Refill 09/13/[address] [place] [address] Mann Irene MD Medication Refill 09/10/[address] [place] [address] Mann Irene MD Referral 07/15/2018 Refill SEP [address] [place] [address] Mann Irene MD Medication Refill 07/12/2018 Refill [facility]P [address] [place] [address] Mann Irene MD Medication Refill 03/05/2018 2:40 PM EDT Office Visit [address] [place] [address] Ramandeep Noriega APRN Viral gastroenteritis (Primary Dx); Dizziness; Hypernatremia 03/02/2018 Refill [facility]P [address] [place] [address] Mann Irene MD Medication Refill 01/23/2018 Refill SEP [address] [place] [address] Mann Irene MD Medication Refill 12/11/2017 9:22 AM EDT - 12/11/2017 11:59 PM EDT Hospital Encounter [facility] VASCULAR LAB [facility] [place] [phone] Mann Irene MD Claudication Discharge Disposition: Home or Self Care 11/17/2017 Refill SEP [address] [place] [address] Mann Irene MD Medication Refill 10/13/2017 8:00 AM EDT Office Visit [address] [place] [address] Mann Irene MD Hypercholesterolemia (Primary Dx); Hypernatremia; Need for hepatitis C screening test; Screening for deficiency anemia; Claudication; Acute bronchitis, unspecified organism 09/29/[address] [place] [address] Mann Irene MD Medication Refill 09/14/2017 2:12 PM EDT - 09/14/2017 11:59 PM EDT Hospital Encounter Mobile Mammography Other Location View online schedule for mobile van location [phone] Mann Irene MD Encounter for screening mammogram for breast cancer Discharge Disposition: Home or Self Care 09/11/2017 10:50 AM EDT Office Visit [address] [place] [address] Mann Irene MD Well adult exam (Primary Dx); Encounter for screening mammogram for breast cancer; Osteoarthritis, unspecified osteoarthritis type, unspecified site; UTI (urinary tract infection), uncomplicated 08/31/2017 Refill [facility]P [address] [place] [address] Mann Irene MD Medication Refill 07/18/2017 Refill SEP [address] [place] [address] Mann Irene MD Medication Refill 04/25/[address] [place] [address] Mann Irene MD Medication Refill 01/06/2017 Refill SEP [address] [place] [address] Mann Irene MD Medication Refill 12/01/[address] [place] [address] Mann Irene MD Medication Problem 11/28/[address] [place] [address] Mann Irene MD Medication Refill 11/23/[address] [place] [address] Mann Irene MD Medication Refill 10/01/2016 4:40 PM EDT Office Visit [address] [place] [address] Mark Rosas MD Sinusitis, unspecified chronicity, unspecified location (Primary Dx) 10/01/[address] [place] [address] Mann Irene MD Medication Refill 09/30/[address] [place] [address] Mann Irene MD Referral 03/11/2016 3:40 PM EDT Office Visit [address] [place] [address] Mann Irene MD Pneumonia of right lower lobe due to infectious organism (Primary Dx) 01/25/[address] [place] [address] Mann Irene MD Other (bloodwork) 01/23/2016 4:09 PM EDT - 01/23/2016 11:59 PM EDT Hospital Encounter [facility] [address] [id number] Annual physical exam; Screening for cholesterol level; Screening for thyroid disorder Discharge Disposition: Home or Self Care 01/23/2016 8:00 AM EDT Clinical Support [address] [place] [address] Brittany Slaughter CCMA Hypercholesterolemia (Primary Dx) 01/08/2016 4:00 PM EDT Office Visit [address] [place] [address] Oralia Hall PA-C Allergic rhinitis, seasonal (Primary Dx); Hyperlipidemia; Osteoarthritis, unspecified osteoarthritis type, unspecified site; Annual physical exam; Screening for cholesterol level; Screening for thyroid disorder 10/04/[address] [place] [address] Mann Irene MD Medication Refill 09/28/[address] [place] [address] Mann Irene MD Medication Refill 09/04/2015 11:40 AM EDT Office Visit [address] [place] [address] Latesha Cabral APRN Acute bacterial sinusitis (Primary Dx); Acute bronchitis, unspecified organism 09/03/[address] [place] [address] Mann Irene MD Other 08/29/[address] [place] [address] Mann Irene MD Referral 07/30/2015 11:50 AM EDT Office Visit [address] [place] [address] Mann Irene MD Fever, unspecified fever cause (Primary Dx); Acute gastroenteritis 07/30/[address] [place] [address] Mann Irene MD Illness 07/27/[address] [place] [address] Mann Irene MD Other ([employer] O Referral) 05/14/[address] [place] [address] Mann Irene MD Medication Refill 03/12/2015 Orders Only [address] [place] [address] Stefania Oquendo MD Pain of toe of right foot (Primary Dx) 03/02/2015 8:57 PM EDT - 03/02/2015 11:59 PM EDT Hospital Encounter [facility] [place] [address] Acute idiopathic gout of right foot Discharge Disposition: Home or Self Care 03/02/2015 2:30 PM EDT Office Visit [address] [place] [address] Stefania Oquendo MD Menopausal symptoms (Primary Dx); Acute idiopathic gout of right foot; Psoriasis 01/18/[address] [place] [address] Mann Irene MD Medication Refill 12/22/[address] [place] [address] Mann Irene MD Medication Refill 11/27/[address] [place] [address] Mann Irene MD Medication Refill 10/04/2014 3:50 PM EDT Office Visit [address] [place] [address] Stefania Oquendo MD Bronchitis (Primary Dx) 09/01/2014 6:01 PM EDT - 09/01/2014 11:59 PM EDT Hospital Encounter [facility] [place] [address] Well adult exam Discharge Disposition: Home or Self Care 09/01/2014 8:20 AM EDT Office Visit [place] [address] [place] [address] Mann Irene MD Well adult exam (Primary Dx); Hand dermatitis; Hip joint replacement by other means; Hypercholesterolemia 08/10/[address] [place] [address] Mann Irene MD Medication Refill 08/09/[address] [place] [address] Mann Irene MD Medication Refill 07/10/2014 8:45 PM EST - 07/10/2014 11:59 PM EST Hospital Encounter [facility]G [facility] [place] [address] Discharge Disposition: Home or Self Care 07/10/2014 Orders Only [facility] [address] [place] [address] Edil Mann MD 07/07/2014 Telephone [facility] [address] [place] [address] Edil Mann MD Reschedule 06/29/2014 Patient Outreach [address] [place] [address] Sujatha Goldman, contracts advisor (follow up ) 06/02/2014 Telephone [facility] [facility] [address] [place] [address] Edil Mann MD Reschedule 06/02/2014 Telephone [place] [address] [place] [address] Sujatha Goldman RN Care Transition (Follow up) 06/02/[address] [place] [phone] Mann Irene MD Other 06/01/2014 Patient Outreach [address] [place] [address] Sujatha Goldman RN Care Transition (Follow up call) 05/15/[address] [place] [address] Mann Irene MD Referral 05/10/2014 1:00 PM EST Office Visit [address] [place] [address] Mark Rosas MD Viral illness (Primary Dx); Elevated BP 05/10/[address] [place] [address] Mann Irene MD Hypertension 04/28/2014 Patient Outreach [address] [place] [address] Sujatha Goldman RN Care Transition (Face to face encounter) 04/28/2014 10:40 AM EST Office Visit [address] [place] [address] Mann Irene MD Hand dermatitis (Primary Dx); Diarrhea 03/29/2014 Patient Outreach [facility] [employer] [address] [place] [address] Sujatha Goldman RN Care Transition (returning call) 03/28/2014 Patient Outreach [facility] [employer] [address] [place] [address] Sujatha Goldman RN Care Transition (Follow up call) 03/14/[address] [place] [address] Mann Irene MD Medication Refill 03/07/[address] [place] [address] Mann Irene MD Medication Refill 03/06/2014 2:00 PM EDT Office Visit [address] [place] [address] Mann Irene MD OA (osteoarthritis)-s/p RIGHT TOTAL HIP REPLACEMENT 02/16/14. (Primary Dx) 02/28/2014 Patient Outreach [facility] [address] [place] [address] Sujatha Goldman RN Care Transition (Hospital follow up call) 02/20/2014 6:45 PM EDT - 02/25/2014 3:10 PM EDT Hospital Encounter [facility]TT SENIOR L[facility] N[facility] [place] [address] Enrique Baker MD Screening for tuberculosis (Primary Dx); At risk for constipation; Pain; High cholesterol; Prevention of blood clots; Anemia; Hypokalemia Discharge Disposition: Home Health Care [facility] 02/24/[address] [place] [address] Mann Irene MD Other 02/16/2014 6:27 AM EDT - 02/20/2014 5:34 PM EDT Hospital Encounter EDG 7D ORTHO [facility] [place] [address] Bruce Oh MD OA (osteoarthritis) (Primary Dx); Hypercholesterolemia; Hypernatremia Discharge Disposition: [facility] Facility 02/16/2014 9:00 AM EDT - 02/16/2014 10:30 AM EDT Surgery EDG PERIOP [facility] [place] [address] Bruce Oh MD ARTHROPLASTY, HIP, TOTAL, ANTERIOR (KYLEE/NIC) 02/14/2014 Telephone [facility] [address] [place] [address] Mann Irene MD Other 02/11/2014 Refill SEP [address] [place] [address] Mann Irene MD Medication Refill 02/09/2014 9:00 AM EDT - 02/09/2014 11:59 PM EDT Hospital Encounter EDG TOTAL JOINT CTR [facility] [place] [address] Provider, Edg Total Joint Class Discharge Disposition: Home or Self Care 02/09/2014 7:30 AM EDT - 02/09/2014 8:59 AM EDT Hospital Encounter EDG PRE-ADMIT TESTING [facility] [place] [address] OA (osteoarthritis) (Primary Dx); Pre-op testing; Anticoagulant disorder Discharge Disposition: Home or Self Care 01/19/2014 9:40 AM EDT Office Visit [place] [address] [address] [place] [address] Mann Irene MD Dysuria (Primary Dx) 01/17/[address] [place] [phone] Edil Mann MD Other 01/16/2014 8:54 PM EDT - 01/16/2014 11:59 PM EDT Hospital Encounter EDG LAB LAURA PROCESSING [facility] [place] [address] Dysuria Discharge Disposition: Home or Self Care 01/16/2014 3:00 PM EDT Office Visit [place] [address] [address] [place] [address] Mann Irene MD UTI (urinary tract infection) (Primary Dx); Dysuria 01/16/2014 Telephone SEP Boni [facility] [address] [place] [address] Mann Irene MD Urinary Tract Infection 01/13/2014 Telephone [facility] [place] [address] [address] [place] [address] Mann Irene MD Paperwork/forms 12/22/2013 Telephone [facility] [place] [address] [address] [place] [address] Mann Irene MD Other 12/22/2013 Orders Only SEP [place] [address] [place] [address] Mann Irene MD Hip fracture, unspecified laterality, closed, initial encounter (HCC) (Primary Dx) 12/21/2013 4:35 PM EDT - 12/21/2013 11:59 PM EDT Hospital Encounter [facility] [address] [place] [address] Mann Irene MD Leg pain Discharge Disposition: Home or Self Care 12/19/2013 7:09 PM EDT - 12/19/2013 11:59 PM EDT Hospital Encounter EDG LAB LAURA PROCESSING [facility] [place] [address] Dysuria Discharge Disposition: Home or Self Care 12/19/2013 Orders Only [facility]i [address] [place] [phone] Stefania Oquendo MD Pain (Primary Dx); Difficulty walking 12/19/2013 12:45 PM EDT Office Visit [facility] Boni [address] [place] [address] Mann Irene MD Dysuria (Primary Dx); UTI (lower urinary tract infection); Leg pain, central, right 12/17/2013 Refill [facility] Boni [facility] [address] [place] [address] Mann Irene MD Medication Refill 12/16/2013 3:41 PM EDT - 12/16/2013 11:59 PM EDT Hospital Encounter EDG LAB LAURA PROCESSING [facility] [place] [address] Thigh pain, right Discharge Disposition: Home or Self Care 12/16/2013 1:04 PM EDT - 12/16/2013 3:40 PM EDT Hospital Encounter GRT [place] [address] Thigh pain, right Discharge Disposition: Home or Self Care 12/16/2013 11:00 AM EDT Office Visit SEP Boni [facility] [address] [place] [phone] Stefania Oquendo MD Thigh pain, right (Primary Dx) 12/12/2013 Orders Only SEP [facility] [address] [place] [address] Kindra Wren MA Special screening for malignant neoplasms, colon (Primary Dx) 10/31/2013 Refill SEP [facility] [address] [place] [address] Mann Irene MD Medication Refill 10/24/2013 Telephone SEP [facility] [address] [place] [address] Edil Mann MD Reschedule (COLON) 10/11/2013 Telephone SEP [facility] [address] [place] [address] Mann Irene MD Results 10/07/2013 12:22 PM EDT - 10/07/2013 11:59 PM EDT Hospital Encounter EDG VASCULAR LAB [facility] [place] [address] Mann Irene MD Claudication Discharge Disposition: Home or Self Care 10/07/2013 11:50 AM EDT - 10/07/2013 12:18 PM EDT Hospital Encounter [place] [facility] [place] [address] Mann Irene MD Other screening mammogram Discharge Disposition: Home or Self Care 10/07/2013 12:19 PM EDT - 10/07/2013 12:21 PM EDT Hospital Encounter EDG ECHO [facility] [place] [address] Mann Irene MD Heart murmur Discharge Disposition: Home or Self Care 09/26/2013 7:11 PM EDT - 09/26/2013 11:59 PM EDT Hospital Encounter EDG LAB LAURA PROCESSING [facility] [place] [address] Hypercholesterolemia Discharge Disposition: Home or Self Care 09/26/2013 9:20 AM EDT Office Visit SEP [facility] [address] [place] [phone] Mann Irene MD Well adult exam (Primary Dx); Claudication; Other screening mammogram; Heart murmur; Screen for colon cancer; Hypercholesterolemia; Osteoarthritis 06/19/[address] [place] [address] Mann Irene MD Medication Refill 04/27/[address] [place] [address] Mann Irene MD Results 04/14/2013 9:10 AM EST - 04/14/2013 11:59 PM EST Hospital Encounter [facility] LABORATORY [address] [facility] [place] [address] Hyperlipidemia (Primary Dx) Discharge Disposition: Home or Self Care 04/06/2013 Orders Only [address] [place] [address] Mann Irene MD Hyperlipidemia (Primary Dx) 03/18/2013 3:00 PM EST Office Visit [address] [place] [address] Mann Irene MD Osteoarthritis (Primary Dx); Other screening mammogram; Colon cancer screening 12/07/[address] [place] [address] Mann Irene MD Other (Was given some cream Thursday and is not helping seems worse please advise) 12/03/2012 4:00 PM EDT Office Visit [address] [place] [address] Mann Irene MD Malar Rash (Primary Dx) 11/03/2012 12:00 PM EDT - 11/03/2012 1:58 PM EDT Surgery EDG [facility] [place] [address] Elza Bautista MD LUMBAR LAMINECTOMY/DISCECTOMY (COVERS FACETECTOMY) 11/03/2012 8:17 AM EDT - 11/03/2012 3:51 PM EDT Hospital Encounter EDG SAME DAY SURGERY [facility] [place] [address] Elza Bautista MD Discharge Disposition: Home or Self Care 10/28/2012 10:43 AM EDT - 10/28/2012 11:59 PM EDT Hospital Encounter EDG PRE-ADMIT TESTING [facility] [place] [address] Discharge Disposition: Home or Self Care 10/13/2012 11:40 AM EDT Office Visit SEP Boni [facility] [address] [place] [address] Mann Irene MD Poison samia (Primary Dx); Need for pneumococcal vaccination; Weight gain 09/21/2012 7:46 AM EDT - 09/21/2012 11:59 PM EDT Hospital Encounter [facility] [address] [place] [address] Mann Irene MD Low back pain Discharge Disposition: Home or Self Care 09/15/2012 Telephone SEP [place] [address] [place] [address] Mann Irene MD Other 09/13/2012 4:10 PM EDT - 09/13/2012 11:59 PM EDT Hospital Encounter EDG LAB LAURA PROCESSING [facility] [place] [address] Well adult exam Discharge Disposition: Home or Self Care 09/13/2012 10:25 AM EDT - 09/13/2012 4:09 PM EDT Hospital Encounter GRT XRAY [address] [place] [address] Low back pain Discharge Disposition: Home or Self Care 09/13/2012 8:30 AM EDT Office Visit SEP [place] [address] [place] [address] Mann Irene MD Low back pain (Primary Dx); Well adult exam 02/21/2004 10:34 AM EDT - 02/21/2004 11:59 PM EDT Hospital Encounter HST CTR WOM MOB EDG Mann Irene MD 02/22/2003 10:02 AM EDT - 02/22/2003 [...] 11:59 PM EST Hospital Encounter HST CTR WO Luis Velazquez MD 04/17/1994 2:58 PM EST - 04/17/1994 11:59 PM EST Hospital Encounter HST EPIC CON UNK EDG Harjeet Celis Allergies Active Allergy Reactions Criticality Noted Date Comments Celecoxib Rash High 02/16/2014 Medicine Bow Rash 01/01/2023 Medications aspirin 81 mg Oral Tablet, Delayed Release (E.C.) Take 1 Tablet by mouth every morning. 90 Tablet 2 07/06/19 24 Active gabapentin (NEURONTIN) 300 mg Oral CapsuleIndication s:Osteoporosis, unspecified osteoporosis type, unspecified pathological fracture presence,Spinal stenosis of lumbar region, unspecified whether neurogenic claudication present,Neurofora jayy stenosis of lumbar spine,Lumbar radiculopathy Take 1 Capsule by mouth nightly. 30 Capsule 2 05/31/19 25 Active ergocalciferol (DRISDOL) 1,250 mcg (50,000 unit) Oral CapsuleIndication s:Age-related osteoporosis without current pathological fracture TAKE 1 CAPSULE IN THE MORNING EVERY WED {Q1W4} 12 Capsule 2 02/16/20 25 Active amLODIPine (NORVASC) 5 mg Oral TabletIndications :Essential hypertension Take 1 Tablet by mouth daily. for blood pressure 90 Tablet 3 05/03/20 25 Active atorvastatin (LIPITOR) 20 mg Oral TabletIndications :Hypercholesterol emia Take 1 Tablet by mouth daily. 90 Tablet 3 05/03/20 25 026 Active famotidine (PEPCID) 40 mg Oral TabletIndications :GERD without esophagitis Take 1 Tablet by mouth 2 times daily. 180 Tablet 3 05/03/20 25 Active lisinopriL (PRINIVIL;ZESTRIL ) 20 mg Oral Tablet tabletIndications :Essential hypertension Take 1 Tablet by mouth daily. 90 Tablet 3 05/03/20 25 026 Active nortriptyline (PAMELOR) 25 mg Oral CapsuleIndication s:Bilateral numbness and tingling of arms and legs TAKE 1 CAPSULE BY MOUTH EVERY MORNING AND 1 CAPSULE AT DINNER 180 Capsule 1 05/03/20 25 Active meloxicam (MOBIC) 15 mg Oral TabletIndications :Spinal stenosis of lumbar region without neurogenic claudication Take 1 Tablet by mouth daily. 90 Tablet 2 05/03/20 25 Active lisinopriL (PRINIVIL;ZESTRIL ) 20 mg Oral Tablet tabletIndications :Essential hypertension Take 1 Tablet by mouth daily for 360 days. 90 Tablet 3 08/28/19 24 025 Discontinued(R eorder) atorvastatin (LIPITOR) 20 mg Oral TabletIndications :Hypercholesterol emia Take 1 Tablet by mouth daily for 360 days. 90 Tablet 3 11/11/19 24 025 Discontinued(R eorder) nortriptyline (PAMELOR) 25 mg Oral CapsuleIndication s:Spinal stenosis of lumbar region, unspecified whether neurogenic claudication present,DDD (degenerative disc disease), lumbar,Osteoporos is, unspecified osteoporosis type, unspecified pathological fracture presence,Neurofor aminal stenosis of lumbar spine,Lumbar pain,Right sided sciatica TAKE 1 CAPSULE IN THE MORNING AND 1 CAPSULE AT DINNER 180 Capsule 3 12/10/19 24 025 Discontinued meloxicam (MOBIC) 15 mg Oral TabletIndications :Spinal stenosis of lumbar region, unspecified whether neurogenic claudication present,DDD (degenerative disc disease), lumbar,Osteoporos is, unspecified osteoporosis type, unspecified pathological fracture presence,Neurofor aminal stenosis of lumbar spine,Lumbar pain,Right sided sciatica TAKE 1 TABLET EVERY DAY 90 Tablet 3 03/28/20 24 025 Discontinued(R eorder) famotidine (PEPCID) 40 mg Oral TabletIndications :GERD without esophagitis TAKE 1 TABLET BY MOUTH TWICE DAILY 180 Tablet 3 07/14/19 25 025 Discontinued(R eorder) amLODIPine (NORVASC) 5 mg Oral Tablet Take 1 Tablet by mouth daily. for blood pressure 90 Tablet 02/17/20 25 025 Discontinued(R eorder) nortriptyline (PAMELOR) 25 mg Oral CapsuleIndication s:Spinal stenosis of lumbar region, unspecified whether neurogenic claudication present,DDD (degenerative disc disease), lumbar,Osteoporos is, unspecified osteoporosis type, unspecified pathological fracture presence,Neurofor aminal stenosis of lumbar spine,Lumbar pain,Right sided sciatica TAKE 1 CAPSULE BY MOUTH EVERY MORNING AND 1 CAPSULE AT DINNER 180 Capsule 1 04/19/20 25 025 Discontinued(R eorder) Active Problems Patient Care Coordination No te Formatting of this note is d ifferent from the original. [facility] MD Controlled Substance Protocol Completed: NS Appt 08/29/24, 10/20/24, SNC Appt 10/28/23, 11/03/23 Gabapentin and/or Pregabalin A. Informed Consent Statement signed (Yearly) ( 05/31/2024 ) B. Controlled Substance Agreement signed (Yearly) ( 05/31/2024 ) D. Osei report completed (EVERY 3 MONTHS) ( 10/20/2024 ) Pharmacy: [facility], [facility] [place] [phone] [facility] [phone] Problem Noted Date Diagnosed Date Chronic diastolic [...] pressure is 31 mmHg Assessment & Plan (05/03/2025 9:41 AM EST): Stable Continue current management Assessment & Plan (11/09/2023 11:16 AM EDT): [...] day. [place] 300 qhs, Pamelor 25 bid. [place] 5 q8 prn #15. Miky Webb MD [facility] [phone] GERD without esophagitis 01/16/2023 Age-related osteoporosis wit [...] ft eye 02/28/2022 Overview (07/14/2022): Follows with eyewear manufacturing supervisor Assessment & Plan (05/03/2025 9:41 AM EST): Recommend continue follow up with ophthalmology Assessment & Plan (07/15/2023 7:46 AM EST): Recommend continue follow up with ophthalmology Assessment & Plan (07/14/2022 10:15 AM EST): -continue to follow with eyewear manufacturing supervisor Advanced atrophic nonexudati ve age-related macular degeneration [...] (12/19/2019): Added automatically from request for surgery [id number] Urine culture positive 11/17/201902/05 Overview (11/17/2019): Added automatically from request for surgery [id number] Hematuria 10/11/2019 07/14/2022 Overview (10/11/2019): Added automatically from request for surgery [id number] Hyperosmolality and hypernatremia 12/31/2018 07/14/2022 Encounter for insertion of p rosthetic hip after prior removal of hip prosthesis 12/31/2018 Encounter for insertion of p rosthetic knee after prior removal of knee prosthesis 12/31/2018 1 07/04/2024 Pre-op examination 12/06/2018 9 Assessment & Plan (12/06/2018 11:24 AM EDT): Revised Faustin Cardiac Risk Index (Circulation 1999; 100: [phone]) 1. High risk surgical procedures (intraperitoneal, intrathoracic, [...] Administration Dates Next Due Influenza High Dose 01/13/2024, 0,02/21/2019,01/06,02/09/2016,02/21/2015 Influenza Vaccine Quadrivale nt Adjuvanted 03/29/2022,01/28/2020 Influenza [...] Sister Social History Smoking Status as of 05/08/2025 Tobacco Use Types Packs/Day Years Used Date Smoking Tobacco: Never Assessed Overall Financial Resource Strain (CARDIA) Answe r Date Recorded How hard is it for you to pa y for the very basics like food, housing, medical care, and heating? Somewhat hard 02/27/2023 PHQ-2 Answer Date Recorded PHQ-2 Total Score 0 05/03/2025 [facility] [place] [facility] - Occupational Stress [...] a group home (including now)? No 11/12/2022 Sex and Gender [...] Mass Index 29.26 05/03/2025 8:45 AM EST Plan of Treatment Not on file Medical Devices Implanted Type Area Patient Registration Rep Device Identifier Shelf Expiration Date Model / Serial / Lot Stent Contour 6 X 24 #[id number] - [id number] Implanted:Qty: 1 on 01/02/2020 by Amari Wheeler MD at [facility] Stent Right: Ureter [employer]:MICROVASIVE: UROLOGY [id number] / / [id number] Head V40 Ceramic Delta Biolox 36mm/-2.5 - [id number] Implanted:Qty: 1 on 02/16/2014 by Bruce Oh MD at [facility] Right: Hip KYLEE:ORTHOPED [facility] 01/08/2019 6570-0-43 6 / / [id number] Stem Femoral Accolade Ii 127 Degree Size 5 - [id number] Implanted:Qty: 1 on 02/16/2014 by Bruce Oh MD at [facility] Right: Hip KYLEE:ORTHOPED [facility] 02/07/2019 7915-4333 / / [id number] Insert Trident X 3 0 Degree 36mm D - [id number] Implanted:Qty: 1 on 02/16/2014 by Bruce Oh MD at [facility] Right: Hip KYLEE:ORTHOPED [facility] 01/08/2019 623-00-36 D / / [id number] Screw Bone Cancellous 6.5mm X 30mm - [id number] Implanted:Qty: 1 on 02/16/2014 by Bruce Oh MD at [facility] Right: Hip KYLEE:ORTHOPED [facility] 02/07/2019 2115-4990 -1 / / [id number] Shell Acetabular Hole Cluster Hemispherical Tritanium D 52mm - [id number] Implanted:Qty: 1 on 02/16/2014 by Bruce Oh MD at [facility] Right: Hip KYLEE:ORTHOPED [facility] 11/07/2018 502-03-52 D / / [id number] Cmpnt Fem 3 Kn Lt Crcte Rtn Bead Trthln Pa - [id number] Implanted:Qty: 1 on 12/28/2018 by Bruce Oh MD at [facility] Left: Knee KYLEE:ORTHOPED [facility] 10/14/2023 [id number] / / [id number] Patella Backed Metal Tritanium Asymmetric A 35 X 10 - [id number] Implanted:Qty: 1 on 12/28/2018 by Bruce Oh MD at [facility] Left: Knee KYLEE:ORTHOPED [facility] 05/18/2023 5552-L-35 0 / / [id number] Insert Bearing Tibial Cs Triathlon X 3 Sz 4-11mm - [id number] Implanted:Qty: 1 on 12/28/2018 by Bruce Oh MD at [facility] Left: Knee KYLEE:ORTHOPED [facility] 10/04/2023 [id number] / / [id number] Bsplt Tib Trthln 4 Kn Tritanium - [id number] Implanted:Qty: 1 on 12/28/2018 by Bruce Oh MD at [facility] Left: Knee KYLEE:ORTHOPED [facility] 10/11/2023 5536-B-40 0 / / [id number] Lens Intraocular Preloaded 19.0 Diopter - [id number] Implanted:Qty: 1 on 02/28/2019 by Conor Ramirez MD at [facility] Right: Eye [facility]:SURG 11/07/2021 AU00T0.19 0 / [id number] / Lens Intraocular Preloaded 20.0 Diopter - [id number] Implanted:Qty: 1 on 03/14/2019 by Conor Ramirez MD at [facility] Left: Eye [facility]:SURG 08/08/2021 AU00T0.20 0 / [id number] / [id number] Explanted Type Area Patient Registration Rep Device Identifier Shelf Expiration Date Model / Serial / Lot Stent Contour 6 X 24 #[id number] - [id number] Implanted:Qty: 1 on 11/28/2019 by Amari Wheeler MD at [facility] Explanted:Qty: 1 on 01/02/2020 by Amari Wheeler MD at [facility] Stent Ureter [employer]:MICROVASIVE:U ROLOGY 02/10/2022 [id number] / / [id number] Procedures Procedure Name Priority Date/Time Associated Diagnosis Comments VITAMIN B12 LEVEL Routine 05/03/2025 9:13 AM EST Bilateral numbness and tingling of arms and legs VITAMIN D 25 HYDROXY Routine 05/03/2025 9:13 AM EST Age-related osteoporosis without current pathological fracture COMPREHENSIVE METABOLIC PANEL Routine 05/03/2025 9:13 AM EST Essential hypertension CBC WITH DIFF Routine 05/03/2025 9:13 AM EST Essential hypertension HEMOGLOBIN A1C Routine 05/03/2025 9:13 AM EST Diabetes mellitus screening LIPID PANEL REFLEX Routine 05/03/2025 9:13 AM EST Hypercholesterol emia VITAMIN D 25 HYDROXY Routine 11/09/2023 11:21 [...] 10:09 AM EDT Screening for osteoporosis Postmenopausal [place] ARTHROCENTESIS ASPIR&/INJ MAJOR JT/BURSA W/O US Routine [...] PM EDT History of right hip replacement [place] ARTHROCENTESIS ASPIR&/INJ MAJOR JT/BURSA W/O US Routine [...] PROCALCITONIN Early AM 03/30/2022 3:02 PM EST [id number] Routine 03/30/2022 9:53 AM EST ECG AND [...] Stella Hylton PCP: Mann Irene MD Primary Template Storage Clerk: Dr. mccurdy Reason for consult: syncope x3 History provided by: pt, EMR History limited by: nothing HPI: 76 yo past smoker female hx: HLD Adm for syncope x3. 1st episode was about 3 wks ago. 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 [...] lesions of bladder;Surgeon: Amari Wheeler MD; Location: [facility] OR; Service: Urology CATARACT REMOVAL Right 02/28/2019 RIGHT EYE CATARACT EXTRACTION WITH PHACOEMULSIFICATION AND INTRAOCULARLENS; Surgeon: Conor Ramirez MD; Location: [facility];Service: Ophthalmology CATARACT REMOVAL Left 03/14/2019 LEFT EYE CATARACT EXTRACTION WITH PHACOEMULSIFICATION AND INTRAOCULARLENS; Surgeon: Conor Ramirez MD; Location: [facility];Service: Ophthalmology COLONOSCOPY CYSTOSCOPY Right 11/28/2019 cystoscopy right stent placement, right extracorporeal shock wavelithotripsy; Surgeon: Amari Wheeler MD; Location: [facility] MAIN OR;Service: Urology HEMORRHOID SURGERY HIP ARTHROPLASTY [...] Oh MD; Location:[facility] OR; Service: Orthopedics URETEROSCOPY Right 01/02/2020 [...] most recent cardiovascular imaging studies availabe in [facility] EMR werereviewed at time of consultation Assessment [...] coordination with the nursepractitioner. Fredi Nick MD [facility] CARDIOLOGY CONSULT Chief Complaint Patient presents with [...] ipratropium (ATROVENT) 21 mcg (0.03 %) Nasl [place], Non-Aerosol 2 Spraysby Nasal route 3 times [...] lesions of bladder;Surgeon: Amari Wheeler MD; Location: [facility] OR; Service: Urology CATARACT REMOVAL Right 02/28/2019 RIGHT EYE CATARACT EXTRACTION WITH PHACOEMULSIFICATION AND INTRAOCULARLENS; Surgeon: Conor Ramirez MD; Location: [facility];Service: Ophthalmology CATARACT REMOVAL Left 03/14/2019 LEFT EYE CATARACT EXTRACTION WITH PHACOEMULSIFICATION AND INTRAOCULARLENS; Surgeon: Conor Ramirez MD; Location: [facility];Service: Ophthalmology COLONOSCOPY CYSTOSCOPY Right 11/28/2019 cystoscopy right stent placement, right extracorporeal shock wavelithotripsy; Surgeon: Amari Wheeler MD; Location: [facility] MAIN OR;Service: Urology HEMORRHOID SURGERY HIP ARTHROPLASTY Right 02/16/2014 RIGHT TOTAL HIP REPLACEMENT; Surgeon: Bruce Oh MD; Location:[facility] MAIN OR; Service: Orthopedics HYSTERECTOMY complete LITHOTRIPSY Right 11/28/2019 Surgeon: Amari Wheeler MD; Location: [facility] MAIN OR; Service: Urology LUMBAR DISC SURGERY 11/03/2012 Surgeon: Elza Bautista MD; Location: [facility] MAIN OR; Service: TOTAL KNEE ARTHROPLASTY Left 12/28/2018 left knee total replacement; Surgeon: Bruce Oh MD; Location:[facility] MAIN OR; Service: Orthopedics URETEROSCOPY Right 01/02/2020 cystoscopy, Right Flexible Ureteroscopy, Retrograde, Stent Exchange,Laser Lithotripsy, Basket Retrieval of stone fragments; Surgeon: Amari Wheeler MD; Location: [facility] MAIN OR; Service: Urology Family History Problem [...] consultation. 03/30/2022 1:26 PM Fredi Nick MD [facility] ECG AND WAVEFORMS - TELEMETRY Routine 03/29/2022 5:11 AM EST IP CONSULT TO CARDIOLOGY Routine 03/28/2022 9:41 PM EST Procedure Note - Fredi Nick MD - 03/30/2022 11:55 AM ESTThis note is in progress. Heart & Vascular Consult Note PATIENT: Stella Hylton PCP: Mann Irene MD Primary Template Storage Clerk: Dr. mccurdy Reason for consult: syncope x3 History provided by: pt, EMR History limited by: nothing HPI: 76 yo past smoker female hx: HLD Adm for syncope x3. 1st episode was about 3 wks ago. 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 [...] lesions of bladder;Surgeon: Amari Wheeler MD; Location: [facility] MAIN OR; Service: Urology CATARACT REMOVAL Right 02/28/2019 RIGHT EYE CATARACT EXTRACTION WITH PHACOEMULSIFICATION AND INTRAOCULARLENS; Surgeon: Conor Ramirez MD; Location: [facility];Service: Ophthalmology CATARACT REMOVAL Left 03/14/2019 LEFT EYE CATARACT EXTRACTION WITH PHACOEMULSIFICATION AND INTRAOCULARLENS; Surgeon: Conor Ramirez MD; Location: [facility];Service: Ophthalmology COLONOSCOPY CYSTOSCOPY Right 11/28/2019 cystoscopy right stent placement, right extracorporeal shock wavelithotripsy; Surgeon: Amari Wheeler MD; Location: [facility] MAIN OR;Service: Urology HEMORRHOID SURGERY HIP ARTHROPLASTY Right 02/16/2014 RIGHT TOTAL HIP REPLACEMENT; Surgeon: Bruce Oh MD; Location:[facility] MAIN OR; Service: Orthopedics HYSTERECTOMY complete LITHOTRIPSY Right 11/28/2019 Surgeon: Amari Wheeler MD; Location: [facility] MAIN OR; Service: Urology LUMBAR DISC SURGERY 11/03/2012 Surgeon: Elza Bautista MD; Location: [facility] MAIN OR; Service: TOTAL KNEE ARTHROPLASTY Left 12/28/2018 left knee total replacement; Surgeon: Bruce Oh MD; Location:[facility] MAIN OR; Service: Orthopedics URETEROSCOPY Right 01/02/2020 [...] most recent cardiovascular imaging studies availabe in [employer] EMR werereviewed at time of consultation Assessment [...] coordination with the nursepractitioner. Fredi Nick MD [facility] CARDIOLOGY CONSULT Chief Complaint Patient presents with [...] ipratropium (ATROVENT) 21 mcg (0.03 %) Nasl [place], Non-Aerosol 2 Spraysby Nasal route 3 times [...] Conor Ramirez MD; Location: [facility];Service: Ophthalmology CATARACT REMOVAL Left 03/14/2019 LEFT EYE CATARACT EXTRACTION WITH PHACOEMULSIFICATION AND INTRAOCULARLENS; Surgeon: Conor Ramirez MD; Location: [facility];Service: Ophthalmology COLONOSCOPY CYSTOSCOPY Right 11/28/2019 cystoscopy right stent placement, right extracorporeal shock wavelithotripsy; Surgeon: Amari Wheeler MD; Location: [facility] MAIN OR;Service: Urology HEMORRHOID SURGERY HIP ARTHROPLASTY Right 02/16/2014 RIGHT TOTAL HIP REPLACEMENT; Surgeon: Bruce Oh MD; Location:[facility] MAIN OR; Service: Orthopedics HYSTERECTOMY complete LITHOTRIPSY Right 11/28/2019 Surgeon: Amari Wheeler MD; Location: [facility] MAIN OR; Service: Urology LUMBAR DISC SURGERY 11/03/2012 Surgeon: Elza Bautista MD; Location: [facility] MAIN OR; Service: TOTAL KNEE ARTHROPLASTY Left 12/28/2018 left knee total replacement; Surgeon: Bruce Oh MD; Location:[facility] MAIN OR; Service: Orthopedics URETEROSCOPY Right 01/02/2020 [...] consultation. 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 Cholesterol 196 <200 mg/dL 05/03/2025 3:02 PM EST [facility] [employer] Comment: < 200 Desirable 200 - 239 Borderline High >= 240 High Triglyceride 95 <150 mg/dL 05/03/2025 3:02 PM EST [facility] Comment: < 150 Normal 150 - 199 Borderline High 200 - 499 High >= 500 Very High HDL 55 >=40 mg/dL 05/03/2025 3:02 PM EST [facility] [employer] Comment: > 60 Optimal 40 - 60 Acceptable < 40 Low LDL Calculated 124(H) <100 mg/dL 05/03/2025 3:02 PM EST [facility] Comment: < 100 Optimal 100 - 129 Near or above optimal 130 - 159 Borderline High 160 - 189 High >= 190 Very High The National Institutes of Health (NIH) equation is used for all lipid panels that report calculated LDL (LDL-C). Non-HDL-C Calculated 141(H) <=129 mg/dL 05/03/2025 3:02 PM EST [facility] Comment: <130 Desirable 130-159 Above Desirable 160-189 Borderline High 190-219 High >= 220 Very High Fasting Specimen? Yes None 025 3:02 PM EST [facility] Blood VENOUS BLOOD / Unknown Venipuncture / Unknown 05/03/2025 9:13 AM EST 05/03/2025 9:13 AM EST Palma Jj DO CHEMISTRY ORDERABLES Final R esult Performing Organization Address [facility] de Phone Number [facility] [address] [place] [address] * VITAMIN D 25 HYDROXY (05/03/2025 9:13 AM EST) Only the most recent of4 resultswithin the time period is included. Vit D 25 OH 49.5 30.0 - 150.0 ng/mL 05/03/2025 3:17 PM EST [facility] Comment: Preferred: >= 30 ng/mL Insufficient: 21-29 [...] ORDERABLES Final R esult Performing Organization Address [facility] de Phone Number [facility] [address] [place] [address] * (ABNORMAL) CBC WITH DIFF (05/03/2025 9:13 AM EST) Only the most recent of16 resultswithin the time period is included. WBC 7.5 3.7 - 10.3 x10(3)/mcL 05/03/2025 [...] 2:44 PM EST [facility] [place] Percent 8.1 % 05/03/2025 2:44 PM EST [facility] Percent 8.0 % 05/03/2025 2:44 PM EST [facility] Baso Percent 0.7 % 05/03/2025 2:44 PM EST [facility] Neut # 3.0 1.6 - 6.1 x10(3)/mcL 05/03/2025 2:44 PM EST [facility] Comment:Neutrophils equals s egs plus bands IMMGRAN# 0.0 0.0 - 0.1 x10(3)/mcL 05/03/2025 2:44 PM EST [facility] Comment:Automated count of m etamyelocytes, myelocytes and promyelocytes. An absolute IG <0.1 is reported as 0.0. Lymph # 3.3 1.2 - 3.9 x10(3)/mcL 05/03/2025 2:44 PM EST [facility] [place] # 0.6 0.3 - 0.9 x10(3)/[facility] 05/03/2025 2:44 PM EST [facility] Eos# 0.6(H) 0.0 - 0.5 x10(3)/[facility] 05/03/2025 2:44 PM EST [facility] Baso # 0.1 0.0 - 0.1 x10(3)/[facility] 05/03/2025 2:44 PM EST [facility] Blood VENOUS BLOOD / Unknown Venipuncture / Unknown 05/03/2025 9:13 AM EST 05/03/2025 9:13 AM EST Palma Jj DO HEMATOLOGY ORDERABLES Final Result [facility] [address] [facility] , [place] [address] * (ABNORMAL) HEMOGLOBIN A1C (05/03/2025 9:13 AM EST) Hgb A1C 5.9(H) 4.2 - 5.6 % 05/03/2025 3:04 PM EST [facility] Est. Avg Glucose 123 mg/dL 05/03/2025 3:04 PM EST [facility] Blood VENOUS BLOOD / Unknown Venipuncture / Unknown 05/03/2025 9:13 AM EST 05/03/2025 9:13 AM EST Narrative [facility] - 05/03/2025 3:04 PM EST REFERENCE RANGE: Normal: 4.0-5.6% Pre-diabetes: 5.7-6.4% Provisional diagnosis of diabetes: >6.4% Hgb F>10% and anything which shortens red cell survival, such as hemolytic anemia, or unstable hemoglobin variants such as HbSS, HbSC, or HbCC, will lower the HbA1c value associated with a given level of glycemic control. Palma Jj DO CHEMISTRY ORDERABLES Final R esult Performing Organization Address [facility] de Phone Number [facility] [address] , [place] [address] * VITAMIN B12 LEVEL (05/03/2025 9:13 AM EST) Pathologist [facility] Vitamin B12 323 232 - 1,245 pg/mL 05/03/2025 3:17 PM EST [facility] Blood VENOUS BLOOD / Unknown Venipuncture / Unknown 05/03/2025 9:13 AM EST 05/03/2025 9:13 AM EST Narrative [facility] - 05/03/2025 3:17 PM EST Ingestion of lakshmi doses of biotin (>5 mg/day) taken within 8 hours of drawing blood sample can interfere with this immunoassay test. Palma Jj DO CHEMISTRY ORDERABLES Final R [facility] Performing Organization Address [facility] Phone Number [facility] [address] , [place] [address] * COMPREHENSIVE METABOLIC PANEL (05/03/2025 9:13 AM EST) Only the most recent of15 resultswithin the time period is included. Sodium 143 136 - 145 mmol/L 05/03/2025 3:02 PM EST [facility] Potassium 3.9 3.5 - 5.0 mmol/L 05/03/2025 3:02 PM EST [facility] Chloride 105 98 - 107 mmol/L 05/03/2025 3:02 PM EST [facility] Total CO2 29 22 - 29 mmol/L 05/03/2025 3:02 PM EST [facility] Anion Gap 9 7 - 16 mmol/L 05/03/2025 3:02 PM EST [facility] Calcium 9.9 8.8 - 10.4 mg/dL 05/03/2025 3:02 PM EST [facility] Glucose Lvl 99 70 - 99 mg/dL 05/03/2025 3:02 PM EST [facility] BUN 15 8 - 23 mg/dL 05/03/2025 3:02 PM EST [facility] Creatinine 0.72 0.51 - 1.30 mg/dL 05/03/2025 3:02 PM EST [facility] Albumin 4.4 3.2 - 4.6 gm/dL 05/03/2025 3:02 PM EST [facility] Total Protein 7.4 6.4 - 8.3 gm/dL 05/03/2025 3:02 PM EST [facility] Bili Total 0.6 0.2 - 1.3 mg/dL 05/03/2025 3:02 PM EST [facility] ALT 11 <=41 U/L 05/03/2025 3:02 PM EST [facility] AST 17 <=40 U/L 05/03/2025 3:02 PM EST [facility] Alk Phos 121 36 - 123 U/L 05/03/2025 3:02 PM EST [facility] eGFR (CKD-EPIcr 2020) 85 >=60 mL/min/1.7 3 m2 05/03/2025 3:02 PM EST [facility] Comment:Estimated GFR was ca lculated using the CKD-EPIcr (2020) equation refit without race. The equation is recommended by the National Kidney Foundation - [place] [employer]ph[employer] Task Force. Blood VENOUS BLOOD / Unknown Venipuncture / Unknown 05/03/2025 9:13 AM EST 05/03/2025 9:13 AM EST us Palma Jj DO CHEMISTRY ORDERABLES Final R esult [facility] [address] [facility] , [address] [place] [id number] * NT PROBNP (11/09/2023 11:21 AM EDT) NT Pro-BNP 102 <=624 pg/mL 11/09/2023 3:27 PM EDT [facility] Blood VENOUS BLOOD / Unknown Venipuncture / Unknown 11/09/2023 11:21 AM EDT 11/09/2023 11:21 AM EDT Narrative [facility] - 11/09/2023 3:27 PM EDT An NT pro-BNP level less than 300 pg/mL in any patient, regardless of age, effectively rules out acute CHF with a 99% negative predictive value. Ingestion of lakshmi doses of biotin (>5 mg/day) taken within 8 hours of drawing blood sample can interfere with this immunoassay test. us Palma Jj DO CHEMISTRY ORDERABLES Final R esult [facility] [address] [facility], [place] [address] * (ABNORMAL) LIPID SCREEN (11/09/2023 11:21 AM EDT) Only the most recent of6 resultswithin the time period is included. Cholesterol 220(H) <200 mg/dL 11/09/2023 3:35 PM EDT [facility] Comment: < 200 Desirable 200 - 239 Borderline High >= 240 High Triglyceride 91 <150 mg/dL 11/09/2023 3:35 PM EDT [facility] Comment: < 150 Normal 150 - 199 Borderline High 200 - 499 High >= 500 Very High HDL 53 >=40 mg/dL 11/09/2023 3:35 PM EDT [facility] Comment: > 60 Optimal 40 - 60 Acceptable < 40 Low LDL Calculated 151(H) <100 mg/dL 11/09/2023 3:35 PM EDT [facility] Comment: < 100 Optimal 100 - 129 Near or above optimal 130 - 159 Borderline High 160 - 189 High >= 190 Very High Non-HDL-C Calculated 167(H) <=129 mg/dL 11/09/2023 3:35 PM EDT [facility] Comment: <130 Desirable 130-159 Above Desirable 160-189 Borderline High 190-219 High >= 220 Very High Fasting Specimen? No None 024 3:35 PM EDT [facility] Blood VENOUS BLOOD / Unknown Venipuncture / Unknown 11/09/2023 11:21 AM EDT 11/09/2023 11:21 AM EDT us Palma Jj DO CHEMISTRY ORDERABLES Final R esult [facility] [address] [facility] , [address] [place] [id number] [facility] [address] [place] [address] * BASIC METABOLIC PANEL (11/09/2023 11:21 AM EDT) Only the most recent of9 resultswithin the time period is included. Sodium 141 136 - 145 mmol/L 11/09/2023 3:35 PM EDT [facility] Potassium 4.5 3.5 - 5.0 mmol/L 11/09/2023 3:35 PM EDT [facility] Chloride 105 98 - 107 mmol/L 11/09/2023 3:35 PM EDT [facility] Total CO2 29 22 - 29 mmol/L 11/09/2023 3:35 PM EDT [facility] Anion Gap 7 7 - 16 mmol/L 11/09/2023 3:35 PM EDT [facility] Calcium 9.6 8.8 - 10.4 mg/dL 11/09/2023 3:35 PM EDT [facility] Glucose Lvl 77 70 - 99 mg/dL 11/09/2023 3:35 PM EDT [facility] BUN 19 8 - 23 mg/dL 11/09/2023 3:35 PM EDT [facility] Creatinine 0.74 0.51 - 1.30 mg/dL 11/09/2023 3:35 PM EDT [facility] eGFR (CKD-EPIcr 2020) 83 >=60 mL/min/1.7 3 m2 11/09/2023 3:35 PM EDT [facility] Comment:Estimated GFR was ca lculated using the CKD-EPIcr (2020) equation refit without race. The equation is recommended by the National Kidney Foundation - [place] [employer] Neph[employer] Task Force. Blood VENOUS BLOOD / Unknown Venipuncture / Unknown 11/09/2023 11:21 AM EDT 11/09/2023 11:21 AM EDT us Palma Jj DO CHEMISTRY ORDERABLES Final R esult [facility] [address] [facility] , [address] [place] [id number] [facility] [address] [place] [address] * XR CERVICAL SPINE AP AND LATERAL (08/12/2023 1:11 PM EDT) Anatomical Region Laterality Modality C-spine Radiographic Demetra ging 08/12/2023 1:11 PM EDT Impressions 08/12/2023 2:32 PM EDT Multilevel degenerative changes. Narrative 08/12/2023 2:32 PM EDT AP AND LATERAL C-SPINE, 08/12/2023 1:11 PM CLINICAL HISTORY: M54.0-Ifrcganhdop-PSZ-10-CM COMPARISON: None. PROCEDURE COMMENTS: AP and lateral [...] LATERAL C-SPINE, 08/12/2023 1:11 PM CLINICAL HISTORY: M54.1-Mxnkokpfnfg-YAU-10-CM COMPARISON: None. PROCEDURE COMMENTS: AP and lateral [...] Multilevel degenerative changes. Clay Ness MD [facility] ORDERABLES Final Result * VA [...] the bilateral vertebral artery. Palma Jj DO IMG VASCULAR ORDERABLES Karen [...] 2:05 PM CLINICAL HISTORY: M79.671-Pain in right tbzv-CWS-08-CM COMPARISON: None. PROCEDURE COMMENTS: XR FOOT RIGHT AP LATERAL AND OBLIQUE FINDINGS: There is no fracture or traumatic malalignment. 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 There is hallux bunion. 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 Procedure Note Juaquin Morel MD - 07/06/2023 XR FOOT RIGHT AP LATERAL AND OBLIQUE, 07/06/2023 2:05 PM CLINICAL HISTORY: M79.671-Pain in right lyle-LOZ-37-CM COMPARISON: None. PROCEDURE COMMENTS: XR FOOT RIGHT [...] of the ordering clinician. Palma Jj DO [facility] ORDER LILLIAN Final Result * [...] prolonged (digitrace) or repeat study is recommended. Carlos Gold DO Palma Jj DO IMG EEG ORDERABLES Final Res ult * POCT EKG (04/06/2023 11:22 AM EST) [...] LATERAL (01/23/2023 10:40 AM EDT) Narrative Genericuser, Prashant - 01/23/2023 10:40 AM EDT Please see [...] on Horizon APEX 5. Bone Density: Region BMD T-score [...] IMG DEXA ORDERABLES Final Re sult * [place] ARTHROCENTESIS ASPIR&/INJ MAJOR JT/BURSA W/O US (12/03/2022 [...] to verify the correct patient, procedure, equipment, student support services director and site/side marked as required. Patient was prepped and draped in the usual sterile fashion. Result [facility] Ludwin Son PA-C PROCEDURE/MINOR SURGICAL OR DERABLES Final Result Performing Organization Address [facility] de Phone Number ORTHOCINCY * MRI LUMBAR SPINE WO CONTRAST (11/03/2022 11:44 AM EDT) Only the most recent of2 resultswithin the time period is included. Narrative [facility] - 11/03/2022 11:44 AM EDT Please see the scanned MRI report associated with this order on the Imaging tab of the patient's chart. Result [facility] Bruce Oh MD [facility] ORDERABLES Final Res ult Performing Organization Address [facility] de Phone Number [facility] * XR KNEE RIGHT AP LATERAL AND SUNRISE STANDING (10/22/2022 2:22 PM EDT) Only the most recent of2 resultswithin the time period is included. Narrative Stephanie, Audit - 10/22/2022 2:22 PM EDT Please see physician's note from office encounter for x-ray imaging result Result [facility] us Bruce REMY DIAGNOSTIC IMAGING ORDER LILLIAN Final Result * XR LUMBAR SPINE AP AND LATERAL (10/22/2022 1:59 PM EDT) Narrative Stephanie Audit - 10/22/2022 1:59 PM EDT Please see physician's note from office encounter for x-ray imaging result Result [facility] us Bruce REMY DIAGNOSTIC IMAGING ORDER LILLIAN Final Result * XR HIP RIGHT AP LATERAL W AP PELVIS (10/22/2022 1:58 PM EDT) Narrative Prashant Brown - 10/22/2022 1:58 PM EDT Please see physician's note from office encounter for x-ray imaging result Bruce Oh MD IMG DIAGNOSTIC IMAGING ORDER LILLIAN Final Result * [place] ARTHROCENTESIS ASPIR&/INJ MAJOR JT/BURSA W/O US (10/22/2022 1:45 PM EDT) Narrative [facility] - 10/22/2022 1:45 PM EDT [...] to verify the correct patient, procedure, equipment, student support services director and site/side marked as required. Patient was prepped and draped in the usual sterile fashion. Bruce Oh MD PROCEDURE/MINOR SURGICAL ORD ERABLES Final Result [facility] [address] [place] [address] * MM MAMMO DIGITAL VIVIANA SCREEN BILAT (07/28/2022 11:27 AM EDT) Only the most recent of2 resultswithin the time period is included. Anatomical Region Laterality Modality Breast Bilateral Mammography 07/29/2022 7:54 AM EDT Impressions 07/29/2022 7:54 AM EDT Negative ([id number]-[id number]-8) ~ RECOMMENDATION: Routine screening mammogram in 1 [...] the next mammogram, in accordance with the [place] [employer] and the Society of Breast Imaging recommendations. Narrative 07/29/2022 7:54 AM EDT Procedure:MM MAMMO DIGITAL VIVIANA SCREEN BILAT ~ Reason for exam: screening, asymptomatic. Z12.31-Encounter for screening mammogram for malignant neoplasm of nuesfr-TMX-77-CM ~ MM MAMMO DIGITAL VIVIANA SCREEN BILAT [...] for screening mammogram for malignant neoplasm of mkujqd-PZG-55-CM ~ MM MAMMO DIGITAL VIVIANA SCREEN BILAT Bilateral CC and MLO view(s) were taken. There are scattered fibroglandular densities. Prior study comparison: Compared with prior studies the most recentbeing 07/16/21, 10/15/18 No mammographic evidence of malignancy. ~ IMPRESSION: Negative ([id number]-3) ~ RECOMMENDATION: Routine screening mammogram in 1 [...] the next mammogram, in accordance with the [place] [employer] and the Society of Breast Imaging recommendations. Mann Irene MD IM MAMMOGRAPHY ORDERABLES Fin al Result * (ABNORMAL) URINE CULTURE (NO STAIN) (07/28/2022 10:34 AM EDT) Only the most recent of10 resultswithin the time period is included. Culture Positive Growth(A) 07/30/2022 10:57 AM EDT [facility] Culture >100,000 CFU/mL Escherichia coli SUSCEPTIBI LITY RESULT 07/30/2022 10:57 AM EDT [facility] Urine URINE SPECIMEN COLLECTION, CLEAN CATCH / [...] ORDER LILLIAN Final Result [facility] [address] [facility] , [place] [address] * [...] ORDERABLE S Final Result [facility] [address] [place] [address] * TSH REFLEX (07/09/2022 2:01 PM EST) Only the most recent of3 resultswithin the time period is included. TSH Reflex 1.040 0.270 - 4.200 mcIU/mL 07/09/2022 9:42 PM EST [facility] Blood VENOUS BLOOD / Unknown Venipuncture / Unknown 07/09/2022 2:01 PM EST 07/09/2022 2:01 PM EST Narrative [facility] - 07/09/2022 9:42 PM EST Ingestion of lakshmi doses of biotin (>5 mg/day) taken within 8 hours of drawing blood sample can interfere with this immunoassay test. us Palma Jj DO CHEMISTRY ORDERABLES Final R esult [facility] [address] [facility], [place] [address] * SCANNED RADIOLOGY REPORT (04/04/2022 3:50 PM EST) Anatomical Region Laterality Modality Other 04/04/2022 3:50 PM EST us Unknown Provider IMG DIAGNOSTIC IMAGING ORDERABL ES Final Result * EV EVENT MONITOR (04/04/2022 10:26 AM EST) Anatomical Region Laterality Modality Holter/Event Mon itoring 05/06/2022 4:50 AM EST Impressions 05/06/2022 8:20 AM EST [facility] Test Date: 2022-05-06 Pat Name: STELLA HYLTON Department: DEPID Room: Gender: Female Technology Methodology Consultant: : 1945 Requested By: FREDI Mc Order Number: [id number] Carlos MD: Fredi Nick MD Interpretive Statements Manager Convention Date: 04/04/2022 Referring Provider: Dr. Fredi iNck MD Patient was monitored for 30 days. [...] STELLA HYLTON Department: DEPID Room: Gender: Female Technology Methodology Consultant: : 1945 Requested By: FREDI Mc Order Number: [id number] Reading MD: Fredi Nick MD Interpretive Statements Manager Convention Date: 04/04/2022 Referring Provider: Dr. Fredi Nick [...] time period is included. ECG INTERPRET NSR [facility] 04/01/2022 7:03 AM EST Narrative [facility] - 04/01/2022 8:25 AM EST BA/HICUITY ROUTINE [place] 0.15 QRS 0.10 QT 0.43 See Clinical Report link for waveform capture us Unknown Provider POINT OF CARE CARDIOLOGY Final Result [facility] [address] [place] [address] * EC ECHOCARDIOGRAM COMPLETE W DOPPLER AND [...] SPECT imaging reveals normal myocardial wall motion. Sundeep Chan TRANSIT OPERATOR IMG NM CARDIAC ORDERABLES Fi nal Result * ST STRESS TEST LEXISCAN (03/31/2022 12:32 PM EST) Anatomical Region Laterality Modality Cardiac Stress T esting 03/31/2022 12:1 5 PM EST Impressions 03/31/2022 3:24 PM EST [facility] Test Date: 2022-03-31 Pat Name: STELLA HYLTON Department: DEPID Room: 4402 Gender: Female Technology Methodology Consultant: Rachael Cifuentes RN : 1945 Requested By: TIANA ENRIQUEZ Order Number: [id number] Reading MD: Riley Segovia MD Interpretive Statements [...] HYLTON Department: DEPID Room: 4402 Gender: Female Technology Methodology Consultant: Rachael Cifuentes RN : 1945 Requested By: TIANA ENRIQUEZ Order Number: [id number] Reading MD: Riley Segovia MD Interpretive Statements [...] by Riley Segovia MD us Sundeep Chan TRANSIT OPERATOR IMG STRESS ORDERABLES Final Result * US [...] patient variables. For comprehensive details, refer to https://www.acr.org/clinical-resources/utrfuukhz-nws-ufoh-systems/ti-rads. Right lobe measures: 3.8 x 1.7 x [...] patient variables. For comprehensive details, refer to https://www.acr.org/clinical-resources/ssihujiez-vrq-ombt-systems/ti-rads. Right lobe measures: 3.8 x 1.7 x [...] ordering clinician. us Lolis Byrd MD [facility] [place] ORDERABLES Final Result * PROCALCITONIN (03/30/2022 3:02 PM EST) Procalcitonin <0.05 <=0.49 ng/mL 03/30/2022 3:52 PM EST [facility] Blood VENOUS BLOOD / Unknown Venipuncture / Unknown 03/30/2022 3:02 PM EST 03/30/2022 3:07 PM EST Narrative [facility] - 03/30/2022 3:52 PM EST Procalcitonin <0.50 [...] Byrd MD CHEMISTRY ORDERABLES Final Resul t [facility] 1 [facility] , [address] [place] [id number] * (ABNORMAL) D-DIMER (03/30/2022 3:02 PM EST) D-Dimer 671(H) <=500 ng/mL FEU 03/30/2022 3:21 PM EST [facility] Comment:This is an automated latex enhanced immunoassay [...] PM EST 03/30/2022 3:07 PM EST Narrative [facility] - 03/30/2022 3:21 PM EST For patients between the ages of 50 - 75, an age-adjusted D-Dimer cut-off in combination with non-high clinical probability may be considered for the exclusion of venous thromboembolism (calculation = age x 10). MAGNUS Warren, et al. [facility]ia [employer]. 2017;166(5):361-363 PRAKASH Vogt, et al. [facility] [employer]. 2015;(163):701-711. Ashvin M, et al. HUI. 2014;(11):3222-7361. us Lolis Byrd MD HEMATOLOGY ORDERABLES Final Resu lt [facility] [address] [facility], [place] [address] * [id number] (03/30/2022 9:53 AM EST) [facility] CORONAVIRUS [id number] Not Detected Not Detected 03/30/2022 12:16 PM EST [facility] Influenza A DNA Not Detected Not Detected 03/30 12:16 PM EST [facility] Influenza B DNA Not Detected Not Detected 03/30 12:[address] [facility] RSV DNA Not Detected Not Detected 03/30/2022 12:16 PM EST [facility] Swab BOTH ANTERIOR NARES / Unknown 03/30/2022 9:53 AM EST 03/30/2022 9:53 AM EST Narrative [facility] - 03/30/2022 12:16 PM EST This test [...] management decisions. Test is performed on the Personal [employer] GeneXpert platform under the FDA's Emergency Use Authorization (EUA). Cepheid Fact Sheet for Providers and Patients: Cepheid Fact Sheet for Providers: https://www.fda.gov/media/763983/download Cepheid Fact Sheet for Patients: https://www.fda.gov/media/954336/download us Lolis Byrd MD MICROBIOLOGY - GENERAL ORDERABLE S Final Result [facility] [employer] [facility] [address] [facility], [place] [address] * TROPONIN-T HIGH SENSITIVITY 2HR (03/28/2022 3:52 PM EST) Only the most recent of2 resultswithin the time period is included. us-cJimdtonb-Q 2HR 10 <14 ng/L 03/28/2022 4:17 PM EST [facility] Comment:See the website [employer] for rule out [place] care pathway, conditions other than AMI that can cause elevated hs cTnT, and comparison of values from the 4th and 5th generation Rosie tests. https://askmayoexpert.[facility].org/topic/clinical-answers/gnt-29831583/cpm-203 56034 hs-cTnT 2Hr Delta from Baseline 0 <4 ng/L 03/28/2022 4:17 PM EST [facility] Blood VENOUS BLOOD / Unknown Venipuncture / Unknown 03/28/2022 3:52 PM EST 03/28/2022 3:55 PM EST Narrative [facility] - 03/28/2022 4:17 PM EST Ingestion of lakshmi doses of biotin (>5 mg/day) taken within 8 hours of drawing blood sample can interfere with this immunoassay test. Fredi Hamlin TRANSIT OPERATOR CHEMISTRY ORDERABLES Final Result Performing Organization Address [facility] Co de Phone Number [facility] [address] [place] [address] * XR CHEST AP PORTABLE [...] ORD ERABLES Final Result Performing Organization Address [facility]/State/[facility] Co de Phone Number [place] [phone] * (ABNORMAL) URINALYSIS (03/28/2022 2:09 PM EST) Only the most recent of5 resultswithin the time period is included. UA Color Yellow 03/28/2022 2:20 PM EST [facility] UA Appear Clear Clear 03/28/2022 2:20 PM EST [facility] UA Glucose Negative Negative mg/dL 03/28/2022 2:20 PM EST [facility] UA Ketones Negative Negative mg/dL 03/28/2022 2:20 PM EST [facility] UA Blood Negative Negative 03/28/2022 2:20 PM EST [facility] UA pH 6.0 5.0 - 8.0 pH 03/28/2022 2:20 PM EST [facility] UA Protein Trace (10-20 mg/dL) Negative mg/dL 03/28/2022 2:20 PM EST [facility] UA Urobilinogen Normal <=1 mg/dL 2:20 PM EST [facility] UA Bili Negative Negative 03/28/2022 2:20 PM EST [facility] UA Nitrite Positive(A) Negative 03/28/2022 2:20 PM EST [facility] UA Leuk Est 3+ (250 Zena/mcl)(A) Negative 03/28/2022 2:20 PM EST [facility] UA Spec Grav 1.026 1.001 - 1.035 no units 03/28/2022 2:20 PM EST [facility] Comment:Reference range chong d for random specimens only. UA WBC 5(H) 0 - 4 /HPF 03/28/2022 2:20 PM EST [facility] UA RBC 1 0 - 3 /HPF 03/28/2022 2:20 PM EST [facility] UA Squam Epi 1+ /LPF 03/28/2022 2:20 PM EST [facility] UA Mucus Trace /LPF 03/28/2022 2:20 PM EST [facility] UA Bacteria 1+(A) Negative /HPF 03/28/2022 2:20 PM EST [facility] Urine URINE SPECIMEN COLLECTION, CLEAN CATCH / Unknown 03/28/2022 2:09 PM EST 03/28/2022 2:14 PM EST us Fredi Hamlin TRANSIT OPERATOR URINE ORDERABLES Final Res ult [facility] [address] [facility] , [address] [address] * TROPONIN-T HIGH SENSITIVITY BASELINE W/ REFLEX (03/28/2022 1:23 PM EST) Only the most recent of2 resultswithin the time period is included. [facility] zd-yNmqwwzqq-W 10 <14 ng/L 03/28/2022 1:46 PM EST [facility] Comment:See the website patricia hinton for rule out [place] care pathway, conditions other than AMI that can cause elevated hs cTnT, and comparison of values from the 4th and 5th generation Rosie tests. https://askmayoexpert.[facility].org/topic/clinical-answers/gnt-89977888/cpm-203 65642 Blood VENOUS BLOOD / Unknown Venipuncture / Unknown 03/28/2022 1:23 PM EST 03/28/2022 1:26 PM EST Narrative [facility] - 03/28/2022 1:46 PM EST Ingestion of lakshmi doses of biotin (>5 mg/day) taken within 8 hours of drawing blood sample can interfere with this immunoassay test. Fredi Hamlin TRANSIT OPERATOR CHEMISTRY ORDERABLES Final Result [facility] 1 [place] [id number] * (ABNORMAL) CBC (03/28/2022 1:23 PM EST) Only the most recent of6 resultswithin the time period is included. [facility] WBC 11.0(H) 3.7 - 10.3 x10(3)/mcL 03/28/2022 1:29 PM EST [facility] RBC 5.05 3.90 - 5.20 x10(6)/mcL 03/28/2022 1:29 PM EST [facility] Hgb 14.4 11.2 - 15.7 g/dL 03/28/2022 1:29 PM EST [facility] Hct 45.4(H) 34.0 - 45.0 % 03/28/2022 1:29 PM EST [facility] MCV 89.9 80.0 - 100.0 fL 03/28/2022 1:29 PM EST [facility] MCH 28.5 26.0 - 34.0 pg 03/28/2022 1:29 PM EST [facility] MCHC 31.7 30.7 - 35.5 g/dL 03/28/2022 1:29 PM EST [facility] RDW 13.6 <=14.9 % 03/28/2022 1:29 PM EST [facility] Platelet 357 155 - 369 x10(3)/mcL 03/28/2022 1:29 PM EST [facility] MPV 8.9 8.8 - 12.5 fL 03/28/2022 1:29 PM EST [facility] Blood VENOUS BLOOD / Unknown Venipuncture / Unknown 03/28/2022 1:23 PM EST 03/28/2022 1:26 PM EST us Fredi Hamlin TRANSIT OPERATOR HEMATOLOGY ORDERABLES Karen l Result [facility] [address] [place] [address] * EK EKG 12 LEAD (03/28/2022 11:11 AM EST) Only the most recent of3 resultswithin the time period is included. Anatomical Region Laterality Modality Electrocardiogra phy 03/28/2022 11:1 3 AM EST Impressions 03/28/2022 12:[address] [facility] Test Date: 2022-03-28 Pat Name: [facility] Department: DEPID Room: Gender: Female Technology Methodology Consultant: Jacob : 1945 Requested By: [facility] Order Number: [id number] Reading MD: Elbert Reyna MD Measurements Intervals [place] Rate: 92 P: 77 [place]: 132 QRS: 82 QRSD: 106 T: 48 QT: 343 QTc: 425 Interpretive Statements SINUS RHYTHM Electronically Signed On 03-28-2022 12:30:04 EST by Elbert Reyna MD Narrative Procedure Note Elbert Reyna MD - 03/28/[address] [facility] Test Date: 2022-03-28 Pat Name: [facility] Department: DEPID Room: Gender: Female Technology Methodology Consultant: Ap : 1945 Requested By: [facility] Order Number: [id number] Carlos MD: Elbert Reyna MD Measurements Intervals [place] Rate: 92 P: 77 [place]: 132 QRS: 82 QRSD: 106 T: 48 QT: 343 QTc: 425 Interpretive Statements SINUS RHYTHM Electronically Signed On 03-28-2022 12:30:04 EST by Elbert Reyna MD us Marivel King DO IMG ECG ORDERABLES Final Resul t * HM HOLTER MONITOR RECORDING AND ANALYSIS (02/17/2022 9:30 AM EDT) Anatomical Region Laterality Modality Holter/Event Mon itoring 02/26/2022 7:27 AM EDT Impressions 02/26/2022 7:01 PM EDT [facility] Test Date: 2022-02-26 Pat Name: STELLA HYLTON Department: DEPID Room: Gender: Female Technology Methodology Consultant: : 1945 Requested By: MANN Hniton Order Number: [id number] Carlos MD: Sergio Vincent Interpretive Statements Manager Convention Date: 02/17/2022 Referring Provider: Dr. Mann Irene MD Patient was monitored for 48 hours. INDICATIONS: Orthostatic hypotension CONCLUSION: Patient monitored for 2d 3h starting on 02/17/2022 09:24 am. Primary rhythm was Sinus Rhythm. Average heart rate was 88 bpm, Minimum heart rate was 67 bpm on :29:10 am, Max heart rate was 136 bpm on :57:50 pm SVE(s): Carlisle was 0.45 %, max count per 24 hours 581 SVT (AT, RT): 1 events, longest event 3 beats on Day :12:59 am, fastest event 181 bpm on :12:59 am PVC(s): [place] was 0.08 %, max count per 24 hours 104, 2 disparate morphologies PHYSICIAN SUMMARY: 1. Sinus rhythm with heart rates 67-136 bpm; average 88 bpm. 2. Occasional PACs. Occasional PVCs. 3. No detected arrhythmias. 4. No significant heart block or pauses. 5. No symptoms reported. Electronically Signed On 02-26-2022 19:01:30 EDT by Sergio Vincent Narrative Procedure Note Sergio Vincent MD - 02/26/[address] [facility] Test Date: 2022-02-26 Pat Name: STELLA HYLTON Department: DEPID Room: Gender: Female Technology Methodology Consultant: : 1945 Requested By: MANN Hinton Order Number: [id number] Carlos MD: Sergio Vincent Interpretive Statements Manager Convention Date: 02/17/2022 Referring Provider: Dr. Mann Irene MD Patient was monitored for 48 hours. INDICATIONS: Orthostatic hypotension CONCLUSION: Patient monitored for 2d 3h starting on 02/17/2022 09:24 am. Primary rhythm was Sinus Rhythm. Average heart rate was 88 bpm, Minimumheart rate was 67 bpm on Day :29:10 am, Max heart rate was 136 bpm on Day :57:50 pm SVE(s): [place] was 0.45 %, max count per 24 hours 581 SVT (AT, RT): 1 events, longest event 3 beats on Day :12:59 am,fastest event 181 bpm on Day :12:59 am PVC(s): [place] was 0.08 %, max count per 24 [...] B12/ FOLIC ACID (09/24/2021 8:48 AM EDT) Pathologist [facility] Vitamin B12 447 232 - 1,245 pg/mL 09/24/2021 4:50 PM EDT [facility] Folate 11.50 >=4.80 ng/mL 09/24/2021 4:50 PM EDT [facility] Blood VENOUS BLOOD / Unknown Venipuncture / Unknown 09/24/2021 8:48 AM EDT 09/24/2021 8:48 AM EDT Narrative [facility] - 09/24/2021 4:50 PM EDT Ingestion of lakshmi doses of biotin (>5 mg/day) taken within 8 hours of drawing blood sample can interfere with this immunoassay test. Mann Irene MD CHEMISTRY ORDERABLES Final Res ult [facility] 1 [facility] , [place] [address] * SARS-COV-2 IGG (03/23/2020 7:53 AM EST) Pathologist [facility] SARS-CoV-2 IgG (Nucleocapsid) Negative 03/23/2020 5:30 PM EST [facility] Blood VENOUS BLOOD / Unknown Venipuncture / Unknown 03/23/2020 7:53 AM EST 03/23/2020 7:[address] [facility] [facility] - 03/23/2020 5:30 PM EST The SARS-CoV-2 [...] the presence of IgG confers protective immunity. [employer] IgG Provider Fact Sheet: https://www.AskNshare.gov/media/246601/download [employer] IgG Patient Fact Sheet: https://www.AskNshare.gov/media/879419/download [facility] IMMUN[facility] ORDERABLES Final Result Performing Organization Address [facility] de Phone Number [facility] [employer] [address] , [place] [address] * THYROID STIMULATING HORMONE (03/23/2020 7:53 AM EST) Only the most recent of2 resultswithin the time period is included. TSH 0.629 0.270 - 4.200 mcIU/mL 03/23/2020 4:[address] [facility] Blood VENOUS BLOOD / Unknown Venipuncture / Unknown 03/23/2020 7:53 AM EST 03/23/2020 7:[address] [facility] - 03/23/2020 4:58 PM EST Ingestion of lakshmi doses of biotin (>5 mg/day) taken within 8 hours of drawing blood sample can interfere with this immunoassay test. [employer] TRANSIT OPERATOR CHEMISTRY ORDERABLES Final Result Performing Organization Address [facility] de Phone Number [facility] [employer] [address] , [place] [address] * SCANNED RHYTHM STRIPS (01/03/2020 9:38 AM EDT) Only the most recent of5 resultswithin the time period is included. Anatomical Region Laterality Modality Other 01/03/2020 9:38 AM EDT us Unknown Unknown IMG ECG ORDERABLES Final Result * CALCULI (STONE) ANALYSIS - REF LAB (01/02/2020 3:31 PM EDT) Calculi Comp See Note 01/06/2020 9:39 AM EDT [employer] Comment: Calculi composed primarily of: 80% calcium [...] composition determined by FTIR analysis. Performed By: [facility] [address] [place] [address] Cardiac Cath Technician: Lobo Aguilar MD, MS Calculi Mass 37 mg 01/06/2020 9:39 AM EDT [employer] Calculi Number Numerous 01/06/2020 9:39 AM EDT [employer] [facility] Calculi Size 1 to 4 mm 01/06/2020 9:39 AM EDT [employer], FIGMD Calculi Desc See Note 01/06/2020 9:39 AM EDT [employer] Comment: Specimen received in a wet gel substance, not the preferred dry state. Wet specimens often delay analysis. Specimen consists of numerous, small, brown/brown, irregular calculi fragments. Cal[employer] STRUCTURE OF RIGHT URETERAL ORIFICE / Unknown 01/02/2020 3:31 PM EDT 01/02/2020 4:08 PM EDT us Amari Wheeler MD MICROBIOLOGY - GENERAL ORDERABLE S Final Result [employer] [address] [place] [address] * INTRAOP AIRWAY PLACEMENT (01/02/2020 3:02 PM EDT) Narrative [facility] - 01/02/2020 3:02 PM EDT Barber OatesFERNANDA 01/02/2020 3:02 PM Intraop Airway Placement: Induction type: IV Mask size: Standard adult Pre-Oxygenation: Standard Mask ventilation: Not attempted Airway type: LMA Device size: 4 Placement verified: End tidal CO2 Condition: Atraumatic and Unchanged Insertion attempts: 1 Attempt 1 by: TH Title: CABIN EQUIPMENT SUPERVISOR London Cheng MD [place] ANESTHESIA Final Result Performing Organization Address [facility] Co de Phone Number [facility] [address] [place] [address] * CORONAVIRUS 2019 (12/29/2019 10:03 AM EDT) Only the most recent of2 resultswithin the time period is included. [facility] CORONAVIRUS [id number] Not Detected Not Detected 12/29/2019 11:33 PM EDT [facility] Comment:Caution should be ex ercised when interpreting [...] AM EDT 12/29/2019 10:03 AM EDT Narrative [facility] - 12/29/2019 11:33 PM EDT This test is a nucleic acid amplification test intended for the qualitative detection of nucleic acid from the SARS-CoV-2 in upper respiratory samples collected from individuals suspected of COVID-19. Test is performed on the weeSPIN platform under the FDA's Emergency Use Authorization (EUA). User Replay Provider Fact Sheet: https://www.fda.gov/media/821406/download User Replay Patient Fact Sheet: https://www.fda.gov/media/081231/download us Amari Wheeler MD MICROBIOLOGY - GENERAL ORDERABLE S Final Result Performing Organization Address City/[facility]/ZIP Co de Phone Number [facility] [address] [facility] [address], [place] [address] * XR ABDOMEN AP (12/05/2019 11:18 AM [...] R82.79-Other abnormal findings on microbiological examination of enzjq-GEU-94-CM E78.00-Pure hypercholesterolemia, crdbjgxukcx-NDF-54-CM COMPARISON: CT 10/31/2019 PROCEDURE COMMENTS: AP view(s) [...] HISTORY: R82.79-Other abnormal findings on microbiologicalexamination of mxwnt-WVQ-47-CM E78.00-Pure hypercholesterolemia, qcczghgrvyb-ACN-35-CM COMPARISON: CT 10/31/2019 PROCEDURE COMMENTS: AP view(s) [...] is no charge from [facility]. Refer to OpNote for Report. us Amari Wheeler MD IMG FLUOROSCOPY ORDERABLES Final Result Performing Organization Address [facility] Co de Phone Number [facility]ACS * INTRAOP AIRWAY PLACEMENT (11/28/2019 12:56 PM EDT) Narrative [facility] - 11/28/2019 12:56 PM EDT Rachael MilliganFERNANDA 11/28/2019 12:57 PM Intraop Airway Placement: Induction [...] Atraumatic and Unchanged Insertion attempts: 1 Title: CABIN EQUIPMENT SUPERVISOR us Raghav Nolan MD [place] ANESTHESIA Final Re sult Performing Organization Address [facility] Co de Phone Number [facility] [address] [place] [address] * CT ABDOMEN PELVIS WO ORAL OR [...] renal calcification. Stable abdominal aortic aneurysm. - us Jorge Luis Sharif MD IMG CT ORDERABLES Fi nal Result * CREATINE KINASE (10/30/2019 11:58 PM EDT) Only the most recent of2 resultswithin the time period is included. CK 79 26 - 192 U/L 10/31/2019 1:19 AM EDT [facility] Blood VENOUS BLOOD / Unknown Venipuncture / Unknown 10/30/2019 11:58 PM EDT 10/31/2019 12:03 AM EDT us Jorge Luis Sharif MD CHEMISTRY ORDERABLES Final Result [facility] [address] [facility] [place] [address] * PATHOLOGY TISSUE REQUEST (10/26/2019 10:49 AM EDT) CASE REPORT Surgical Pathology Case: [id number] Authorizing Provider: Amari Wheeler MD Collected: 10/26/2019 1049 Ordering Location: [facility] Received: 10/26/2019 1233 Pathologist: Albina Reilly MD Specimen: Bladder, Urinary, bladder biopsy 10/28/2019 3:18 PM EDT [facility] FINAL DIAGNOSIS Urinary bladder, biopsy: - Urothelial mucosa with acute and chronic inflammation, and reactive atypia. - Negative for malignancy. 10/28/2019 3:18 PM EDT [facility] at 1518 EDT COMMENT 10/28/2019 3:18 PM EDT [facility] GROSS DESCRIPTION Received in formalin, labeled with the patient's name and bladder biopsy is a 0.3 cm in greatest dimension brown-white tissue fragment which is submitted in toto in one cassette. /TE 10/28/2019 3:18 PM EDT [facility] MICROSCOPIC DESCRIPTION Microscopic examination is performed and the findings corroborate the diagnosis. CK 20 immunostain is negative. P53 immunostain shows patchy positivity of basal cells. The immunostains profile supports the diagnosis. 10/28/2019 3:18 PM EDT [facility] SPECIAL STAINS All controls show appropriate reactivity. ASR: Some of the immunohistochemical stains were developed and their performance characteristics determined by [facility]. They have not been cleared [...] clinical laboratory testing. 10/28/2019 3:18 PM EDT [facility] EMBEDDED IMAGES 10/28/2019 3:18 PM EDT [facility] Tissue URINARY BLADDER STRUCTURE / Unknown 10/26/2019 10:49 AM EDT 10/26/2019 12:35 PM EDT us Amari Wheeler MD PATHOLOGY ORDERABLES Final Resul t Performing Organization Address City/[facility]/ZIP Co de Phone Number [facility] [address] [place] [address] [facility] [address] [place] [address] * INTRAOP AIRWAY PLACEMENT (10/26/2019 10:32 AM EDT) Narrative [facility] - 10/26/2019 10:32 AM EDT Dwaine Dykes CRNA 10/26/2019 10:42 AM Intraop Airway Placement: Date/Time: 10/26/2019 10:32 AM Induction type: IV Airway type: Nasal cannula salter us Michelle Tucker MD [place] ANESTHESIA Edited Result - Final Performing Organization Address City/[facility] Co de Phone Number [facility] [address] [place], [place] [id number] * CORONAVIRUS 2019 (COVID-19) - REF LAB (10/21/2019 9:52 AM EDT) CORONAVIRUS [id number] NON-DETEC ARNOLD NON-DETEC ARNOLD 10/22/2019 11:54 PM [...] developed and performance characteristics are determined by [facility]. It has not been cleared nor approved by the FDA. The laboratory is accredited through CLIA and deemed qualified to perform high-complexity testing. Such testing is used for clinical purposes and should not be regarded as investigational or for research. [place] Pat ID: [id number]; [place] Req Num: [id number]; [place] Spec ID: [id number] us Amari Wheeler MD LAB SEND OUT ORDERABLES Final Re sult [employer] [address] [place] [address], [facility] [phone] * CT ABDOMEN PELVIS HEMATURIA/RENAL MASS PROTOCOL [...] HISTORY: Hematuria. N39.0-Urinary tract infection, site not smxysrxii-VUO-84-CM R39.14-Feeling of incomplete bladder unesedwn-XEI-85-CM COMPARISON: None. PROCEDURE COMMENTS: Multi-detector volumetric scanning [...] HISTORY: Hematuria. N39.0-Urinary tract infection, site not iurohoqlj-BRF-10-CM R39.14-Feeling of incomplete bladder rnysekjm-GGF-53-CM COMPARISON: None. PROCEDURE COMMENTS: Multi-detector volumetric scanning [...] - 1.3 mg/dL 07/22/2019 9:49 AM EDT [facility] Blood BLOOD SPECIMEN / Unknown 07/22/2019 9:48 AM EDT 07/22/2019 9:49 AM EDT Amari Wheeler MD POINT OF CARE TEST ORDERABLES Fi nal Result Performing Organization Address City/State/[facility] Co de Phone Number [facility] [address] [place] [address] * NON-ACTION INSTALLER CYTOLOGY REQUEST (07/20/2019 2:53 PM EDT) CASE REPORT Non-gynecologi c Cytology Case: [id number] Authorizing Provider: Amari Wheeler MD Collected: 07/20/2019 1453 Ordering Location: [facility] Urology [facility] Received: 07/20/2019 1453 Pathologist: Albina Reilly MD Specimen: Bladder, Urinary 07/21/2019 2:09 PM EDT [facility] NON-ACTION INSTALLER CYTOLOGY FINAL DIAGNOSIS Urinary bladder washing: - Negative for high grade urothelial carcinoma. - Benign urothelial cells and abundant acute inflammation. 07/21/2019 2:09 PM EDT [facility] at 1409 EDT EMBEDDED IMAGES 07/21/2019 2:09 PM EDT [facility] MICROSCOPIC DESCRIPTION Microscopic examination is performed and the findings corroborate the diagnosis. 07/21/2019 2:09 PM EDT [facility] GROSS DESCRIPTION Urine, Bladder,Rec'd 90ml Momin fluid.(TP) 07/21/2019 2:09 PM EDT [facility] Urine URINARY BLADDER STRUCTURE / Unknown 07/20/2019 2:53 PM EDT 07/20/2019 2:53 PM EDT Amari Wheeler MD CYTOLOGY ORDERABLES Final Result Performing Organization Address City/[facility]/ZIP Co de Phone Number [facility] [address] [place] [address] * POCT BLADDER SCAN (07/20/2019 11:37 AM EDT) Urine Volume (Preservative) 24 ml SEP OFFICE 07/20/2019 11:3 7 AM EDT Amari Wheeler MD POINT OF CARE IMAGING Final Resu lt Performing Organization Address City/[facility]/ZIP Co de Phone Number SEP OFFICE * (ABNORMAL) POCT URINALYSIS DIPSTICK (07/20/2019 11:37 AM EDT) Only the most recent of5 resultswithin the time period is included. Color, UA yellow CLEAR,YELL OW,ORANGE, RUST SEP OFFICE Clarity, UA clear CLEAR,CLOU DY SEP OFFICE Glucose, UA neg G/DL% SEP OFFICE Bilirubin, UA neg POS/NEG SEP OFFICE Ketones, UA neg POS/NEG SEP perinatal instructor Grav, UA 1.025 1.001 - 1.035 G/DL [...] TEST ORDERABLES Fi nal Result SEP OFFICE * INTRAOP AIRWAY PLACEMENT (03/14/2019 9:37 AM EST) Narrative [facility] - 03/14/2019 9:37 AM EST Rose Gooden CRNA 03/14/2019 9:37 AM Intraop Airway Placement: Airway type: Nasal cannula salter us Rose Gooden CRNA [place] ANESTHESIA F inal Result Performing Organization Address [facility] [place] [address] * INTRAOP AIRWAY PLACEMENT (02/28/2019 9:46 AM EDT) Narrative [facility] - 02/28/2019 9:46 AM EDT Rose Gooden CRNA 02/28/2019 9:46 AM Intraop Airway Placement: Airway type: Nasal cannula salter us Lexi Golden MD [place] ANESTHESIA Final R esult Performing Organization Address [facility] Co de Phone Number [address] [address] * DX BONE DENSITY AXIAL SKELETON (02/10/2019 11:38 AM EDT) Anatomical Region Laterality Modality Dexa Scan 02/10/2019 Narrative 02/10/2019 2:04 PM EDT Indication: The patient is a female age 65 or older who requires a bone density assessment. Study was performed on Revl BIG BEND 5. Bone Density: Region BMD T-score Z-score [...] - 15.7 g/dL 12/31/2018 7:01 AM EDT [facility] Hct 36.7 34.0 - 45.0 % 12/31/2018 7:01 AM EDT [facility] Blood Venipuncture / Unknown 12/31/2018 6:42 AM EDT 12/31/2018 6:51 AM EDT Bruce Oh MD HEMATOLOGY ORDERABLES Final Result [facility] 1 [facility] , [place] [address] * XR KNEE LEFT AP AND LATERAL [...] visible complication. - us Bruce Oh MD [facility] DIAGNOSTIC IMAGING ORDER LILLIAN Final Result * FL < 1 HOUR (12/28/2018 3:17 PM EDT) Only the most recent of3 resultswithin the time period is included. Narrative PACS - 12/28/2018 3:18 PM EDT Fluoroscopy was performed. The radiologist was not in attendance. No permanent images were obtained. This dictation is being made for record keeping purposes. us Bruce WILCOX FLUOROSCOPY ORDERABLES F inal Result PACS * INTRAOP AIRWAY PLACEMENT (12/28/2018 2:56 PM EDT) Narrative [facility] - 12/28/2018 2:56 PM EDT [...] not seat due to patient being edentulous. Jonathan Holland MD [place] ANESTHESIA Edited [facility] [address] [place] [address] * Peripheral Block by Anesthesia (12/28/2018 1:34 PM EDT) Narrative [facility] - 12/28/2018 1:34 PM EDT [...] ORDERABLES Final Resu lt Performing Organization Address [facility] Co de Phone Number [facility] [address] [place] [address] * BB HISTORY CHECK (12/15/2018 9:33 AM EDT) [facility] BB HISTORY CHECK (1) Previous History OK 12/15/2018 9:56 AM EDT [facility] Blood VENOUS BLOOD / Unknown Venipuncture / Unknown 12/15/2018 9:33 AM EDT 12/15/2018 9:40 AM EDT us Bruce Oh MD BLOOD BANK ORDERABLES Final Result Performing Organization Address [facility] de Phone Number [facility] [address] [place] [address] * SURGERY DATE (12/15/2018 9:33 AM EDT) [facility] Surgery Date (1) Complete 12/15/2018 9:57 AM EDT [facility] Blood VENOUS BLOOD / Unknown Venipuncture / Unknown 12/15/2018 9:33 AM EDT 12/15/2018 9:40 AM EDT us Bruce Oh MD BLOOD BANK ORDERABLES Final Result Performing Organization Address [facility] Co de Phone Number [facility] [address] [place] [phone] * ABORH (12/15/2018 9:33 AM EDT) Only the most recent of2 resultswithin the time period is included. [facility] ABOR Int O POS 12/15/2018 11:27 AM EDT [facility] Blood VENOUS BLOOD / Unknown Venipuncture / Unknown 12/15/2018 9:33 AM EDT 12/15/2018 9:40 AM EDT us Bruce Oh MD BLOOD BANK ORDERABLES Final Result Performing Organization Address City/[facility]/ZIP Co de Phone Number [facility] [address] [place] [address] * PT / INR (12/15/2018 9:33 AM EDT) Only the most recent of2 resultswithin the time period is included. Pathologist [facility] PT 11.4 9.7 - 12.5 second(s) 12/15/2018 10:01 AM EDT [facility] INR 1.01 0.86 - 1.10 no units 12/15/2018 10:01 AM EDT [facility] Comment: Level of Therapy Indications Target INR Range Standard Dose Treatment and prophylaxis of venous 2.0 - 3.0 thrombosis, pulmonary embolism High Dose High risk patients with mechanical 2.5 - 3.5 heart valves Blood VENOUS BLOOD / Unknown Venipuncture / Unknown 12/15/2018 9:33 AM EDT 12/15/2018 9:40 AM EDT us Bruce Oh MD HEMATOLOGY ORDERABLES Final Result Performing Organization Address City/[facility]/ZIP Co de Phone Number [facility] [address] [facility], [place] [address] * ANTIBODY SCREEN IGG (12/15/2018 9:33 AM EDT) Only the most recent of2 resultswithin the time period is included. ABSC IgG Int Negative 12/15/2018 11:03 AM EDT [facility] Blood VENOUS BLOOD / Unknown Venipuncture / Unknown 12/15/2018 9:33 AM EDT 12/15/2018 9:40 AM EDT us Bruce Oh MD BLOOD BANK ORDERABLES Final Result [facility]OD B[facility] [address] [place] [address] * MM MOBILE MAMMO DIGITAL SCREEN W CAD ZEB (10/15/2018 8:41 AM EDT) Only the most recent of2 resultswithin the time period is included. Anatomical Region Laterality Modality Breast Mammography 10/18/2018 7:37 AM EDT Impressions 10/18/2018 7:37 AM EDT Negative (JUG-Ktbbqcrx-6) ~ RECOMMENDATION: Routine screening mammogram in 1 [...] for screening mammogram for malignant neoplasm of zvrbrl-SAJ-99-CM ~ MM MOBILE MAMMO DIGITAL SCREEN W [...] for screening mammogram for malignant neoplasm of uhbxgy-WAA-34-CM ~ MM MOBILE MAMMO DIGITAL SCREEN W CAD ZEB Bilateral CC and MLO view(s) were taken. There are scattered fibroglandular densities. Prior study comparison: Compared with prior studies the most recentbeing 09/14/17, 10/07/13 No mammographic evidence of malignancy. ~ IMPRESSION: Negative (TFJ-Atndawow-7) ~ RECOMMENDATION: Routine screening mammogram in 1 [...] e Non-Reacti ve 10/13/2017 6:45 PM EDT [facility] Blood VENOUS BLOOD / Unknown Venipuncture / Unknown 10/13/2017 8:26 AM EDT 10/13/2017 8:26 AM EDT Result [facility] Mann Irene MD HEMATOLOGY ORDERABLES Final Re sult [facility] [address] [place] [address], [facility] [place] [address] * POCT INFLUENZA A/B (07/30/2015 12:16 PM EDT) Influenza A Ag neg SEP OFFICE Influenza B Ag neg SEP OFFICE Lot Number SEP OFFICE Expiration Date SEP OFFICE 07/30/2015 12:1 6 PM EDT Result [facility] Mann Irene MD POINT OF CARE TEST ORDERABLES Final Result SEP OFFICE * URIC ACID (03/02/2015 3:22 PM EDT) Uric Acid 4.6 2.4 - 5.7 mg/dL [facility] Blood specimen (specimen) UPPER LIMB STRUCTURE / Unknown 03/02/2015 3:22 PM EDT 03/02/2015 9:30 PM EDT Stefania Bruan MD CHEMISTRY ORDERABLE S Final Result Performing Organization Address [facility] Co de Phone Number [facility] [address] [place] [address] * LDL, CALCULATED (09/01/2014 9:01 AM EDT) Only the most recent of3 resultswithin the time period is included. LDL Calculated 89 <=100 mg/dL [facility] Comment: < 100 Optimal 100 - 129 Near or above optimal 130 - 159 Borderline High 160 - 189 High >= 190 Very High Blood specimen (specimen) 09/01/2014 9:01 AM EDT 09/01/2014 7:00 PM EDT Mann Irene MD CHEMISTRY ORDERABLES Final Res ult Performing Organization Address [facility] de Phone Number [facility] [address] [place] [address] * DIFFERENTIAL (09/01/2014 9:01 AM EDT) Only the most recent of3 resultswithin the time period is included. Neut Percent 60.7 % SE LAB Lymph Percent 27.1 % SE LAB [place] Percent 6.4 % SE LAB Eos Percent 4.8 % [facility] Baso Percent 1.0 % [facility] Neut# 5.0 1.8 - 7.7 x10(3)/mcL [facility] Lymph# 2.2 0.6 - 4.8 x10(3)/mcL [facility] [place]# 0.5 0.0 - 1.3 x10(3)/[facility] Eos# 0.4 0.0 - 0.5 x10(3)/mcL [facility] Baso# 0.1 0.0 - 0.2 x10(3)/[facility] Blood specimen (specimen) 09/01/2014 9:01 AM EDT 09/01/2014 7:00 PM EDT Mann Irene MD HEMATOLOGY ORDERABLES Final Re sult Performing Organization Address [facility] Co de Phone Number [facility] [address] [place] [address] * GMED COLONOSCOPY (07/10/2014 12:00 PM EST) 07/10/2014 12:0 0 PM EST Impressions [facility] - 07/10/2014 12:20 PM EST Polyp (3 mm) in the distal sigmoid colon. (Polypectomy). Plan: Follow-up as needed This section is an excerpt of the full report. Edil Mann MD GI PROCEDURE ORDERABLES Fin al Result [facility] [address] [place] [address] * PATHOLOGY TISSUE REPORT (07/10/2014 12:00 PM EST) Surgical Pathology Report PATIENT NAME:STELLA HYLTON Surgical Pathology Report Accession Number Collected Date/Time Received Date/Time [id number] 07/10/14 12:00 EST 07/10/14 21:39 EST Diagnosis [...] performed and the findings corroborate the diagnosis. [facility] 07/10/2014 12:0 0 PM EST Edil Mann MD PATHOLOGY ORDERABLES Final Result Performing Organization Address City/[facility]/ZIP Co de Phone Number [facility] [address] [place] [address] * SCANNED PRE/POST PROCEDURES (02/23/2014 10:17 AM [...] IMPRESSION: Baseline postoperative right total hip arthroplasty. us Tiffany Ogefrem [facility] DIAGNOSTIC IMAGING ORD ERABLES Final Result [...] EDT) Final No growth of Staphylococcus aureus [facility] Specimen from nose (specimen) 02/09/2014 8:40 AM EDT 02/09/2014 9:54 AM EDT us Bruce Oh MD MICROBIOLOGY - GENERAL ORDER LILLIAN Final Result Performing Organization Address [facility] de Phone Number [facility] [address] [place] [address] * PARTIAL THROMBOPLASTIN TIME (02/09/2014 8:40 AM EDT) PTT 30.8 25.6 - 35.5 second(s) [facility] Comment: Therapeutic range for direct [...] HEMATOLOGY ORDERABLES Final Result Performing Organization Address [facility] Co de Phone Number [facility] [address] [place] [address] * MRI FEMUR RIGHT WO CONTRAST (12/21/2013 [...] jot stat us Mann Irene MD [facility] MRI ORDERABLES Final Resul t * XR FEMUR RIGHT AP AND LATERAL (12/16/2013 1:48 PM EDT) Anatomical Region Laterality Modality Thigh Radiographic Demetra ging 12/16/2013 1:04 PM EDT Impressions 12/16/2013 3:09 PM EDT IMPRESSION: Osteoarthritis of the right hip joint. Otherwise, normal right femur. Narrative 12/16/2013 3:09 PM EDT XR FEMUR RIGHT AP AND LATERAL Dec 16, 2013 01:48:57 PM Clinical: 729.5-Pain in bqrn-LDS-4-CM COMPARISONS: None. FINDINGS: There are no acute or healing fractures in the right femur. 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 The surrounding soft tissues are normal. Procedure Note Chasity Marie MD - 12/16/2013 XR FEMUR RIGHT AP AND LATERAL Dec 16, 2013 01:48:57 PM Clinical: 729.5-Pain in jbib-RHG-3-CM COMPARISONS: None. FINDINGS: There are no acute or healing fractures in the right femur. There ismoderate osteoarthritis of the right femoral acetabular joint. The surrounding soft tissues arenormal. IMPRESSION: Osteoarthritis of the right hip joint. Otherwise, normal right femur. Stefania Braun MD [facility] DIAGNOSTIC IMAG ING ORDERABLES Final Result * MM MAMMO DIGITAL SCREENING W CAD BILAT (10/07/2013 1:12 PM EDT) Anatomical Region Laterality Modality Breast Bilateral Mammography 10/10/2013 8:38 AM EDT Impressions 10/11/2013 9:06 AM EDT : Negative (SPH-Baazxoxf-3) ~ RECOMMENDATION: Routine screening mammogram in 1 [...] architecturaldistortion in either breast. ~ IMPRESSION: Negative (MBG-Lkmyhroq-7) ~ RECOMMENDATION: Routine screening mammogram in 1 [...] without current pathological fracture Senile osteoporosis 02/14/2025 Spinal stenosis of lumbar region, unspecified whether neurogenic claudication present 04/18/2025 DDD (degenerative disc disease), lumbar Degeneration of lumbar or lumbosacral intervertebral disc 04/18/2025 Osteoporosis, unspecified osteoporosis type, unspecified pathological fracture presence 04/18/2025 Neuroforaminal stenosis of lumbar spine 04/18/2025 Lumbar pain Lumbago 04/18/2025 Right sided sciatica Sciatica 04/18/2025 Medicare annual wellness visit, subsequent Routine general medical examination at a health care facility 05/03/2025 Diabetes mellitus screening Screening for diabetes mellitus 05/03/2025 Hypercholesterolemia Pure hypercholesterolemia 05/03/2025 GERD without esophagitis Esophageal reflux 05/03/2025 Essential hypertension Unspecified essential hypertension 05/03/2025 Chronic diastolic (congestive) heart failure (HCC) 05/03/2025 Exudative age-related macular degeneration of left eye, unspecified stage (HCC) 05/03/2025 Spinal stenosis of lumbar region without neurogenic claudication Spinal stenosis, lumbar region, without neurogenic claudication 05/03/2025 Bilateral numbness and tingling of arms and legs 05/03/2025 Age-related osteoporosis without current pathological fracture Senile osteoporosis 05/03/2025 Hypercholesterolemia Pure hypercholesterolemia 02/16/2014 OA (osteoarthritis)-s/p RIGHT [...] UMA MICHELLE to have help getting new [place] plan by end February 2023 General Yes Geraldine Whiteside RN Stay Tobacco Free Lifestyle No Oralia Merida CCMA Care Teams Quality Project Manager Relationship Specialty Start Date End Date Palma Jj DO [employer] [place] [address] PCP - General Family Medicine 07/14/22
--- OUTSIDE RECORDS SUMMARY | 2025-05-08 10:59 | XMS_ITS | Encounter Summary ---
Author Organization [place] Address [place] [address] Care Team Providers Care Placement Assistant Name Role Phone Palma Jj DO Primary Care Provider + [phone] Reason for Visit * Reason Comments Medication Refill Encounter Details Date Type Department Care Team (Late st Contact Info) Description 04/18/2025 Refill SEP [facility] [address] [place] [address] Palma Jj DO [address] [place] [id number] Medication Refill Social History Tobacco Use Types [...] Date Recorded PHQ-2 Total Score 0 11/09/2023 [facility] of Occupat ional Health - Occupational Stress [...] 1 CAPSULE AT DINNER 180 Capsule 1 04/19/2025 documented in this encounter Miscellaneous Notes * Telephone Encounter - Tika Medeiros CPhT - 04/19/2025 3:01 PM EST Nortriptyline Refill request deferred to the office: Please review diagnosis associated with medication. documented in this encounter Plan of Treatment [...] MIGUEL ANGEL to have help getting new [place] plan by end of February 2023 General [...] THE MORNING AND 1 CAPSULE AT DINNER 12/10/2023 04/19/2025 documented as of this encounter Additional Health Concerns Assessment Noted Time A fall risk assessment has been complete d for the patient 08/06/2023 8:22 AM EDT documented as of this encounter Care Teams Placement Assistant Relationship Specialty Start Date End Date [place] [address] PCP - General Family Medicine 07/14/22 documented as of this encounter
--- OUTSIDE RECORDS SUMMARY | 2025-05-08 10:59 | XMS_ITS | Encounter Summary ---
Author Organization [place] [place] Address [employer] [place] [address] Care Team Providers Care Roll Edge Stitcher Hand Name Role Phone Palma Jj DO Primary Care Provider + [phone] Reason for Visit * Reason Onset Date Comments Medication Management 04/28/2025 Aspirin / Atorvastatin / Vit D / Famotidine / Gabapentin / Lisinopril / Meloxicam / Nortiptyline Encounter Details Date Type Department Care Team (Late st Contact Info) Description 04/28/2025 Telephone [facility] [address] [place] [address] Palma Jj, DO [address] [place] [address] Medication Management (Aspirin / Atorvastatin / Vit D / Famotidine / Gabapentin / Lisinopril / Meloxicam / Nortiptyline ) Social History Tobacco Use Types Packs/Day [...] Date Recorded PHQ-2 Total Score 0 11/09/2023 [facility] Occupat ional Health - Occupational Stress [...] place to sleep or slept in a jail (including now)? No 11/12/2022 Comments No Sex [...] No 11/07/2022 8:01 AM EDT Tomi Slaughter CLAUDIA knutson * Because of a physical, mental or emotional condition, does this person have difficulty doing errands alone such as visiting a doctor's office or shopping? Answer Date of Assessment Author No 11/07/2022 8:01 AM EDT Tomi Slaughter CLAUDIA knutson documented as of this encounter Mental Status * Because of a physical, mental or emotional condition, does this person have serious difficulty concentrating, remembering or making decisions? Answer Entry Date Author No 11/07/2022 8:01 AM EDT Tomi Slaughter CLAUDIA knutson documented in this encounter Miscellaneous Notes * Telephone Encounter - Julianna Lea MA - 04/28/2025 3:33 PM EST Spoke to Pt POA and advised that until we receive paperwork we cannot give out information. * Telephone Encounter - Julianna Lea MA - 04/28/2025 2:51 PM EST Attempted to contact Caller back but no answer. Will advise to come to appointment with Pt and Dr. Jj and her can go over medications at that time. * Telephone Encounter - Erma Avila MA - 04/28/2025 1:50 PM EST Select the most appropriate reason for this telephone message: Medication Management/Problem Who is calling: Other Tricia (niece)-not on icf Return Method of Communication: Phone Call What medication(s) do you have concerns about: Disp Refills Start End aspirin 81 mg Oral Tablet, Delayed Release (E.C.) 90 Tablet 2 07/06/2023 -- Sig - Route: Take 1 Tablet by mouth every morning. - Oral Class: OTC Disp Refills Start End atorvastatin (LIPITOR) 20 mg Oral Tablet 90 Tablet 3 11/11/2023 11/05/2024 Sig - Route: Take 1 Tablet by mouth daily for 360 days. - Oral Sent to pharmacy as: atorvastatin 20 mg tablet (LIPITOR) E-Prescribing Status: Receipt confirmed by pharmacy (11/11/2023 9:49 AM EDT Disp Refills Start End ergocalciferol (DRISDOL) 1,250 mcg (50,000 unit) Oral Capsule 12 Capsule 2 02/15/2025 -- Sig: TAKE 1 CAPSULE IN THE MORNING EVERY WED Sent to pharmacy as: ergocalciferol (vitamin D2) 1,250 mcg (50,000 unit) capsule (DRISDOL) Cosign for Ordering: Accepted by Palma Jj DO on 02/15/2025 8:35 AM E-Prescribing Status: Receipt confirmed by pharmacy (02/15/2025 8:28 AM EDT) Disp Refills Start End famotidine (PEPCID) 40 mg Oral Tablet 180 Tablet 3 07/13/2024 -- Sig - Route: TAKE 1 TABLET BY MOUTH TWICE DAILY - Oral Sent to pharmacy as: famotidine 40 mg tablet (PEPCID) Cosign for Ordering: Accepted by Palma Jj DO on 07/13/2024 10:48 AM E-Prescribing Status: Receipt confirmed by pharmacy (07/13/2024 10:44 AM EST) Disp Refills Start End gabapentin (NEURONTIN) 300 mg Oral Capsule 30 Capsule 2 05/31/2024 -- Sig - Route: Take 1 Capsule by mouth nightly. - Oral Sent to pharmacy as: gabapentin 300 mg capsule (NEURONTIN) E-Prescribing Status: Receipt confirmed by pharmacy (05/31/2024 9:20 AM EST) Disp Refills Start End lisinopriL (PRINIVIL;ZESTRIL) 20 mg Oral Tablet 90 Tablet 3 08/28/2023 08/22/2024 Sig - Route: Take 1 Tablet by mouth daily for 360 days. - Oral Sent to pharmacy as: lisinopriL 20 mg tablet (PRINIVIL;Zestril) Cosign for Ordering: Accepted by Palma Jj DO on 08/28/2023 2:05 PM E-Prescribing Status: Receipt confirmed by pharmacy (08/28/2023 1:22 PM EDT) Disp Refills Start End meloxicam (MOBIC) 15 mg Oral Tablet 90 Tablet 3 03/28/2024 -- Sig - Route: TAKE 1 TABLET EVERY DAY - Oral Sent to pharmacy as: meloxicam 15 mg tablet (MOBIC) Cosign for Ordering: Accepted by Palma Jj DO on 03/28/2024 9:40 AM E-Prescribing Status: Receipt confirmed by pharmacy (03/28/2024 8:32 AM EST) Disp Refills Start End nortriptyline (PAMELOR) 25 mg Oral Capsule 180 Capsule 1 04/19/2025 -- Sig: TAKE 1 CAPSULE BY MOUTH EVERY MORNING AND 1 CAPSULE AT DINNER Sent to pharmacy as: nortriptyline 25 mg capsule (PAMELOR) Cosign for Ordering: Accepted by Palma Jj DO on 04/19/2025 3:31 PM E-Prescribing Status: Receipt confirmed by pharmacy (04/19/2025 3:03 PM EST) Prescribing provider: Palma Jj DO What are your concerns/request: Tricia is calling to discuss if pt should be taking the following Rx. Tricia notes when seeing old provider pt was on 1 or 2 medication, and notes pt told her she's onlytaking amlodipine and wants to confirm if this is accurate as she believes pt is not taking all hermedications she should be. Desired outcome: Clarification of prescription Last appointment date: 08/06/23 Pharmacy: n/a Additional Information: SENIOR SALES OPERATIONS ANALYST was not able to discuss any information. Tricia notes she's power of united states attorney but SENIOR SALES OPERATIONS ANALYST does not see anything scanned into pts chart and Tricia is not listed on icf. Please advise as Tricia states she will fax over the POA forms, thank you. documented in this encounter Plan [...] UMA MICHELLE to have help getting new [place] plan by end February 2023 General Yes Geraldine Whiteside RN Stay Tobacco Free Lifestyle No Oralia Merida CCMA documented as of this encounter Visit Diagnoses Not on filedocumented in this encounter Additional Health Concerns Assessment Noted Time A fall risk assessment has been complete d for the patient 08/06/2023 8:22 AM EDT documented as of this encounter Care Teams Roll Edge Stitcher Hand Relationship Specialty Start Date End Date Palma Jj DO [address] [place] [phone] PCP - General Family Medicine 07/14/22 documented as of this encounter
--- NOTE | 2025-05-08 11:08 | ECG_ITS ---
APPROVED REPORT Exam: Resting ECG HR:78 bpm ECG Measurements Heart Rate 78 AXES VA 142 P 68 QRSd 96 QRS 79 QT 361 T 50 QTc 395 Conclusion SINUS RHYTHM NORMAL ECG UNCONFIRMED REPORT Electronically signed by : Manish Baker MD 05/08/2025 17:31:59
== END 2025-05-08 23:59 | disposition home or self-care (01) ==
LOC: RT 10:52
PROVIDERS: PCP Student in an Organized Health Care Education/Training Program; Visit Provider Specialist
DX: G93.40 Encephalopathy, unspecified (principal); R94.31 Abnormal electrocardiogram [ECG] [EKG]
CPT/HCPCS: 93005